=== PATIENT | female | born 1990 | race Caucasian/White ===

== ENCOUNTER 2016-08-24 13:43 | Inpatient (IN) | payer MEDICAID ==
[2016-08-24] MEDS ORDERED: Temazepam 15 MG Cap PO PRN (14:00)
[2016-08-24] MEDS ORDERED: Sodium Chloride 0.9% 1,000 ML IV SCH ×2 (14:00→14:45)
--- NOTE | 2016-08-24 14:14 | PCM.HP ---
H&P History of Present Illness - General Date of Service: 08/24/16 Admit Problem/Dx: Admission Diagnosis/Problem Admission Diagnosis/Problem Diabetic ketoacidosis Source of Information: Patient, Family - History of Present Illness Initial Comments - Free Text/Narative: 25 yo female with history of DM type 1 admitted for DKA. She was seen in the clinic this morning. She has been feeling symptoms of flu x 3 days. Her father is sick with the flu. Her boyfreind has just got over a cold. She has increased nausea, weak, cough, abdominal pain, decreased appetite. She has been complaint with her insulin. Her labs in clinic today blood glucose 648, with serum small ketones. Her WBC and rest of BMP unremarkable. Her influenza swab is pending. - Related Data Allergies/Adverse Reactions: Allergies Allergy/AdvReac Type Severity Reaction Status Date / Time acetaminophen [From Tylenol] Allergy Liver Verified 04/01/16 17:27 Problems amoxicillin Allergy Hives Verified 04/01/16 17:27 amoxicillin trihydrate Allergy Hives Verified 04/01/16 17:27 [From Amoxil] ibuprofen Allergy Liver Verified 04/01/16 17:27 Problems ketorolac tromethamine Allergy Hives Verified 04/19/16 13:59 [From Toradol] metoclopramide HCl Allergy Airway Verified 04/19/16 13:59 [From Reglan] Tightness tramadol Allergy Hives Verified 04/19/16 13:59 Home Medications: Home Meds Insulin Detemir [Levemir] 15 unit SUBCUT BID 03/24/16 [History] LORazepam [Ativan] 0.5 mg PO BID PRN 03/24/16 [History] Ondansetron [Ondansetron ODT] 8 mg PO QID PRN 04/19/16 [History] Insulin Aspart [Novolog Flexpen] 16 - 20 unit SUBCUT TIDMEALS 05/15/16 [History] Loratadine 10 mg PO DAILY PRN 05/15/16 [History] Omeprazole 20 mg PO BIDAC 05/15/16 [History] Albuterol Sulfate [Proair Hfa] 1 puff INH Q4H PRN 06/12/16 [History] Budesonide/Formoterol [Symbicort 160-4.5 MCG] 1 inh IH BID 08/24/16 [History] DULoxetine [Cymbalta] 30 mg PO DAILY 08/24/16 [History] Lidocaine 5% [Lidoderm 5%] 1 patch TOP DAILY 08/24/16 [History] Morphine Sulfate [Morphine Sulfate] 30 mg PO Q4H PRN 08/24/16 [History] Oxymorphone HCl [Oxymorphone HCl ER] 20 mg PO Q12H 08/24/16 [History] Promethazine HCl 25 mg PO Q6H PRN 08/24/16 [History] Past Medical History HEENT History: Reports: Allergic rhinitis Other HEENT History: dental abcess Cardiovascular History: Reports: None Respiratory History: Reports: Asthma Gastrointestinal History: Reports: GI bleed, Hepatitis, PUD, Other (see below) Other Gastrointestinal History: hx of C-diff, hx of Hepatitis B Genitourinary History: Reports: UTI, recurrent Other Genitourinary History: current UTI [employer] History: Reports: Other (see below) Other OB/BYN History: had miscarriage twice Musculoskeletal History: Reports: Back pain, chronic, Other (see below) Neurological History: Reports: Migraines, Seizure 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, last on was 4 months ago Psychiatric History: Reports: Anxiety, Depression Endocrine/Metabolic History: Reports: Diabetes, type I Hematologic History: Reports: Anemia Immunologic History: Reports: None Oncologic (Cancer) History: Reports: None Dermatologic History: Reports: Other (see below) Other Dermatologic History: possible infection from port removal R upper chest - Infectious Disease History Infectious Disease History: Reports: C-difficile - Past Surgical History Head Surgeries/Procedures: Reports: None HEENT Surgical History: Reports: Tonsillectomy Cardiovascular Surgical History: Reports: None Respiratory Surgical History: Reports: None Other Respiratory Surgeries/Procedures: History of Asthma at 11 years old. GI Surgical History: Reports: Appendectomy, Cholecystectomy, ERCP Female Surgical History: Reports: None Endocrine Surgical History: Reports: None Neurological Surgical History: Reports: None Musculoskeletal Surgical History: Reports: None Oncologic Surgical History: Reports: None Dermatological Surgical History: Reports: None - History Comment History Comment: She has had over [address] scans in the last 4 years. Social & Family History - Family History Family Medical History: Noncontributory HEENT: Reports: Impaired vision Cardiac: Reports: Heart failure Respiratory: Reports: Asthma GI: Reports: None : Reports: Renal disease/insufficiency OBGYN: Reports: Musculoskeletal: Reports: Back pain, chronic Neurological: Reports: Seizure Psychiatric: Reports: None Endocrine/Metabolic: Reports: Diabetes, type I Hematologic: Reports: None Immunologic: Reports: None Dermatologic: Reports: None Oncologic: Reports: Breast, Cervix - Tobacco Use Smoking Status *Q: Never Smoker Years of Tobacco use: 4 Packs/Tins Daily: 0.5 Used Tobacco, but Quit: Yes Month Tobacco Last Used: 5 months Second Hand Smoke Exposure: No - Caffeine Use Caffeine Use: Reports: None - Alcohol Use Days Per Week of Alcohol Use: 0 - Recreational Drug Use Recreational Drug Use: No Drug Use in Last 12 Months: No - Living Situation & Occupation Living situation: Reports: with significant other (fiance.), with family, other (She shares a camper with her fiance and father) Occupation: unemployed H&P Review of Systems - Review of Systems: Review Of Systems: See Below General: Reports: weakness, fatigue HEENT: Reports: no symptoms Pulmonary: Reports: cough Cardiovascular: Reports: no symptoms Gastrointestinal: Reports: Abdominal pain Genitourinary: Reports: no symptoms Musculoskeletal: Reports: no symptoms Skin: Reports: no symptoms Psychiatric: Reports: no symptoms Neurological: Reports: no symptoms Hematologic/Lymphatic: Reports: no symptoms Immunologic: Reports: no symptoms Exam - Exam Exam: See Below - Vital Signs Weight: 43.9 kg - Exam General: alert, oriented, cooperative, mild distress HEENT: Conjunctiva clear, EOMI, Other (dry cracked lips) Neck: supple, trachea midline Lungs: Clear to auscultation, Normal respiratory effort Cardiovascular: regular rate, regular rhythm Abdomen: normal bowel sounds, soft Back Exam: normal inspection, full range of motion Extremities: normal inspection Skin: warm, dry, intact Neurological: cranial nerves intact Neuro Extensive - Mental Status: alert Psychiatric: alert, normal affect, normal mood - Patient Data Lab Results last 24 hrs: Laboratory Results - last 24 hr 08/24/16 Range/Units 13:56 POC Glucose > 500 H (60-110) mg/dL *Q Meaningful Use (ADM) - VTE *Q VTE Criteria *Q: - Stroke *Q Stroke Criteria *Q: - AMI *Q AMI Criteria *Q: Problem List Initiated/Reviewed/Updated: Yes Orders Last 24hrs: Active Orders 24 hr Category Date Time Status Patient Status [ADT] Routine ADT 08/24/16 14:00 Ordered Bedrest Bathroom Privileges [RC] ASDIRECTED Care 08/24/16 14:00 Ordered Oxygen Therapy [RC] PRN Care 08/24/16 14:00 Ordered VTE/DVT Education [RC] PER UNIT ROUTINE Care 08/24/16 14:00 Ordered Vital Signs [RC] Q4H Care 08/24/16 14:00 Ordered Nothing per Oral Now Diet [DIET] Diet 08/24/16 Dinner Ordered BASIC METABOLIC PANEL,BMP [CHEM] AM Lab 08/25/16 05:11 Ordered CBC WITH AUTO DIFF [HEME] AM Lab 08/25/16 05:11 Ordered HCG QUALITATIVE,URINE [URCHEM] Routine Lab 08/24/16 13:58 Uncollected UA W/MICROSCOPIC [URIN] Routine Lab 08/24/16 13:57 Uncollected Insulin Regular, Human [NovoLIN R] 100 unit Med 08/24/16 14:15 Ordered Sodium Chloride 0.9% [Normal Saline] 99 ml IV TITRATE Ondansetron [Zofran] Med 08/24/16 14:00 Ordered 4 mg IVPUSH Q4H PRN Oseltamivir [Tamiflu] Med 08/24/16 14:15 Ordered 75 mg PO BID Temazepam [Restoril] Med 08/24/16 14:00 Ordered 15 mg PO BEDTIME PRN Resuscitation Status Routine Resus Stat 08/24/16 14:00 Ordered Medication Orders Insulin Human Regular 100 unit (/ Sodium Chloride) 100 mls @ IV TITRATE PIPPA; 0.1 UNIT/KG/HR PRN Reason: Protocol Ondansetron HCl (Zofran) 4 mg IVPUSH Q4H PRN PRN Reason: Nausea Oseltamivir Phosphate (Tamiflu) 75 mg PO BID PIPPA Temazepam (Restoril) 15 mg PO BEDTIME PRN PRN Reason: Sleep
[2016-08-24] MEDS ORDERED: Sodium Chloride 0.9% 1,000 ML IV ONE (14:24)
[2016-08-24] MEDS: Oseltamivir 75 MG Cap PO SCH ×2 (14:40→20:12)
[2016-08-24] MEDS: HYDROmorphone 1 MG/ML Syringe IVPUSH PRN (15:13)
[2016-08-24] MEDS: Ondansetron 4 MG/2 ML SDV IVPUSH PRN (15:15)
--- NOTE | 2016-08-24 15:18 | CR ---
EXAMINATION: Portable chest radiograph. HISTORY: Cough. FINDINGS: The trachea is midline. The cardiomediastinal silhouette is within normal limits. No pulmonary infil trates, effusions or pneumothorax. Osseous structures appear unremarkable. IMPRESSION: No acute cardiopulmonary process.
[2016-08-24] MEDS ORDERED: diphenhydrAMINE 50 MG/ML SDV IVPUSH ONE (16:14)
[2016-08-24 17:38] LABS: CHLORIDE,CL 104 mmol/L (98-110); SODIUM,NA 138 mmol/L (136-146)
[2016-08-24] MEDS ORDERED: Dextrose 5%-Lactated Ringers 1,000 ML IV SCH (18:45)
[2016-08-24] MEDS ORDERED: Potassium Chloride 10% 20 MEQ/15 ML Soln 30 ML UD Cup PO ONE (18:55)
[2016-08-24] MEDS ORDERED: Potassium Bicarbonate 25 MEQ Tab.EFF PO SCH (19:00)
[2016-08-24] MEDS ORDERED: LORazepam 0.5 MG Tab PO PRN (19:30)
[2016-08-24] MEDS ORDERED: Albuterol 8 GM Inhaler INH PRN (19:30)
[2016-08-24] MEDS ORDERED: Promethazine 25 MG Tab PO PRN (19:30)
[2016-08-24 23:24] LABS: CHLORIDE,CL 108 mmol/L (98-110); SODIUM,NA 140 mmol/L (136-146)
[2016-08-25] MEDS: Ondansetron 4 MG/2 ML SDV IVPUSH PRN ×3 (03:15→14:50)
[2016-08-25] MEDS: HYDROmorphone 1 MG/ML Syringe IVPUSH PRN ×6 (03:15→20:37)
[2016-08-25] MEDS ORDERED: Sodium Chloride 0.9% 1,000 ML IV SCH (03:30)
[2016-08-25] MEDS ORDERED: Insulin Regular, Human 100 Units/ML 10 ML Vial SUBCUT SCH (04:00)
[2016-08-25] MEDS: Insulin Aspart 100 Units/ML 3 ML Pen SUBCUT SCH ×3 (04:23→12:15)
[2016-08-25] MEDS: diphenhydrAMINE 50 MG/ML SDV IVPUSH PRN ×2 (05:44→14:50)
[2016-08-25 05:59] LABS: CHLORIDE,CL 108 mmol/L (98-110); SODIUM,NA 138 mmol/L (136-146)
[2016-08-25] MEDS: Omeprazole 20 MG Cap.CR PO SCH ×2 (07:18→16:04)
[2016-08-25] MEDS ORDERED: Insulin Aspart 100 Units/ML 3 ML Pen SUBCUT ONE (08:34)
[2016-08-25] MEDS: SYMBICORT 160/4.5 MCG INH SCH ×3 (08:45→20:44)
[2016-08-25] MEDS: OXYMORPHONE 20 MG PO SCH ×2 (08:46→20:06)
[2016-08-25] MEDS: DULoxetine 30 MG Cap PO SCH (08:47)
[2016-08-25] MEDS: Oseltamivir 75 MG Cap PO SCH ×2 (08:47→20:37)
--- NOTE | 2016-08-25 08:54 | PCM.PN ---
- General Info Date of Service: 08/25/16 Subjective Update: still feels weak. Pain is controlled with diluadid. blood sugars 300. - Review of Systems General: Reports: weakness, fatigue HEENT: Reports: no symptoms Pulmonary: Reports: cough Cardiovascular: Reports: no symptoms Gastrointestinal: Reports: No symptoms Musculoskeletal: Reports: no symptoms Skin: Reports: no symptoms Neurological: Reports: no symptoms Psychiatric: Reports: no symptoms - Patient Data Vitals - most recent: Last Vital Signs Temp 97.9 F 08/25/16 00:00 Pulse 80 08/25/16 06:00 Resp 13 08/25/16 06:00 BP 102/62 08/25/16 06:00 Pulse Ox 97 08/25/16 06:00 Weight - most recent: 46.448 kg I&O - last 24 hours: Intake & Output 08/24/16 08/25/16 08/25/16 22:59 06:59 14:59 Intake Total 1572 50 Output Total 950 2300 Balance 622 -2250 Lab Results last 24 hrs: Laboratory Results - last 24 hr 08/24/16 08/24/16 08/24/16 Range/Units 13:56 15:04 15:30 WBC (4.0-11.0) K/uL RBC (4.30-5.90) M/uL Hgb (12.0-16.0) g/dL Hct (36.0-46.0) % MCV (80.0-98.0) fL MCH (27.0-32.0) pg MCHC (31.0-37.0) g/dL RDW Std Deviation (28.0-62.0) fl RDW Coeff of Zak (11.0-15.0) % Plt Count (150-400) K/uL MPV (7.40-12.00) fL Neut % (Auto) (48.0-80.0) % Lymph % (Auto) (16.0-40.0) % [place] % (Auto) (0.0-15.0) % Eos % (Auto) (0.0-7.0) % Baso % (Auto) (0.0-1.5) % Neut # (1.4-5.7) K/uL Lymph # (0.6-2.4) K/uL [place] # (0.0-0.8) K/uL Eos # (0.0-0.7) K/uL Baso # (0.0-0.1) K/uL Sodium (136-146) mmol/L Potassium (3.5-5.1) mmol/L Chloride (98-110) mmol/L Carbon Dioxide (21-31) mmol/L BUN (6.0-23.0) mg/dL Creatinine (0.6-1.5) mg/dL Est Cr Clr Drug Dosing mL/min Estimated GFR (MDRD) ml/min Glucose (60-110) mg/dL POC Glucose > 500 H > 500 H (60-110) mg/dL Calcium (8.8-10.8) mg/dL Urine Color YELLOW Urine Appearance CLEAR Urine pH 6.5 (5.0-8.0) Ur Specific Cobb <= 1.005 (1.001-1.035) Urine Protein NEGATIVE (NEGATIVE) mg/dL Urine Glucose (UA) >=1000 (NEGATIVE) mg/dL Urine Ketones 15 H (NEGATIVE) mg/dL Urine Occult Blood TRACE-INTACT (NEGATIVE) Urine Nitrite NEGATIVE (NEGATIVE) Urine Bilirubin NEGATIVE (NEGATIVE) Urine Urobilinogen 0.2 (<2.0) EU/dL Ur Leukocyte Esterase NEGATIVE (NEGATIVE) Urine RBC 0-1 (0-2/HPF) Urine WBC 0-2 (0-5/HPF) Ur Epithelial Cells FEW (NONE-FEW) Urine Bacteria RARE (NEGATIVE) Urine HCG, Qual (NEGATIVE) 08/24/16 08/24/16 08/24/16 Range/Units 15:30 16:23 17:03 WBC (4.0-11.0) K/uL RBC (4.30-5.90) M/uL Hgb (12.0-16.0) g/dL Hct (36.0-46.0) % MCV (80.0-98.0) fL MCH (27.0-32.0) pg MCHC (31.0-37.0) g/dL RDW Std Deviation (28.0-62.0) fl RDW Coeff of Zak (11.0-15.0) % Plt Count (150-400) K/uL MPV (7.40-12.00) fL Neut % (Auto) (48.0-80.0) % Lymph % (Auto) (16.0-40.0) % [place] % (Auto) (0.0-15.0) % Eos % (Auto) (0.0-7.0) % Baso % (Auto) (0.0-1.5) % Neut # (1.4-5.7) K/uL Lymph # (0.6-2.4) K/uL [place] # (0.0-0.8) K/uL Eos # (0.0-0.7) K/uL Baso # (0.0-0.1) K/uL Sodium (136-146) mmol/L Potassium (3.5-5.1) mmol/L Chloride (98-110) mmol/L Carbon Dioxide (21-31) mmol/L BUN (6.0-23.0) mg/dL Creatinine (0.6-1.5) mg/dL Est Cr Clr Drug Dosing mL/min Estimated GFR (MDRD) ml/min Glucose (60-110) mg/dL POC Glucose 258 H 213 H (60-110) mg/dL Calcium (8.8-10.8) mg/dL Urine Color Urine Appearance Urine pH (5.0-8.0) Ur Specific Cobb (1.001-1.035) Urine Protein (NEGATIVE) mg/dL Urine Glucose (UA) (NEGATIVE) mg/dL Urine Ketones (NEGATIVE) mg/dL Urine Occult Blood (NEGATIVE) Urine Nitrite (NEGATIVE) Urine Bilirubin (NEGATIVE) Urine Urobilinogen (<2.0) EU/dL Ur Leukocyte Esterase (NEGATIVE) Urine RBC (0-2/HPF) Urine WBC (0-5/HPF) Ur Epithelial Cells (NONE-FEW) Urine Bacteria (NEGATIVE) Urine HCG, Qual NEGATIVE (NEGATIVE) 08/24/16 08/24/16 08/24/16 Range/Units 17:04 18:02 19:02 WBC (4.0-11.0) K/uL RBC (4.30-5.90) M/uL Hgb (12.0-16.0) g/dL Hct (36.0-46.0) % MCV (80.0-98.0) fL MCH (27.0-32.0) pg MCHC (31.0-37.0) g/dL RDW Std Deviation (28.0-62.0) fl RDW Coeff of Zak (11.0-15.0) % Plt Count (150-400) K/uL MPV (7.40-12.00) fL Neut % (Auto) (48.0-80.0) % Lymph % (Auto) (16.0-40.0) % [place] % (Auto) (0.0-15.0) % Eos % (Auto) (0.0-7.0) % Baso % (Auto) (0.0-1.5) % Neut # (1.4-5.7) K/uL Lymph # (0.6-2.4) K/uL [place] # (0.0-0.8) K/uL Eos # (0.0-0.7) K/uL Baso # (0.0-0.1) K/uL Sodium 138 (136-146) mmol/L Potassium 3.4 L (3.5-5.1) mmol/L Chloride 104 (98-110) mmol/L Carbon Dioxide 17 L (21-31) mmol/L BUN 14 (6.0-23.0) mg/dL Creatinine 0.9 (0.6-1.5) mg/dL Est Cr Clr Drug Dosing 65.65 mL/min Estimated GFR (MDRD) > 60.0 ml/min Glucose 215 H (60-110) mg/dL POC Glucose 127 H 111 H (60-110) mg/dL Calcium 9.2 (8.8-10.8) mg/dL Urine Color Urine Appearance Urine pH (5.0-8.0) Ur Specific [place] (1.001-1.035) Urine Protein (NEGATIVE) mg/dL Urine Glucose (UA) (NEGATIVE) mg/dL Urine Ketones (NEGATIVE) mg/dL Urine Occult Blood (NEGATIVE) Urine Nitrite (NEGATIVE) Urine Bilirubin (NEGATIVE) Urine Urobilinogen (<2.0) EU/dL Ur Leukocyte Esterase (NEGATIVE) Urine RBC (0-2/HPF) Urine WBC (0-5/HPF) Ur Epithelial Cells (NONE-FEW) Urine Bacteria (NEGATIVE) Urine HCG, Qual (NEGATIVE) 08/24/16 08/24/16 08/24/16 Range/Units 20:02 21:13 22:07 WBC (4.0-11.0) K/uL RBC (4.30-5.90) M/uL Hgb (12.0-16.0) g/dL Hct (36.0-46.0) % MCV (80.0-98.0) fL MCH (27.0-32.0) pg MCHC (31.0-37.0) g/dL RDW Std Deviation (28.0-62.0) fl RDW Coeff of Zak (11.0-15.0) % Plt Count (150-400) K/uL MPV (7.40-12.00) fL Neut % (Auto) (48.0-80.0) % Lymph % (Auto) (16.0-40.0) % [place] % (Auto) (0.0-15.0) % Eos % (Auto) (0.0-7.0) % Baso % (Auto) (0.0-1.5) % Neut # (1.4-5.7) K/uL Lymph # (0.6-2.4) K/uL [place] # (0.0-0.8) K/uL Eos # (0.0-0.7) K/uL Baso # (0.0-0.1) K/uL Sodium (136-146) mmol/L Potassium (3.5-5.1) mmol/L Chloride (98-110) mmol/L Carbon Dioxide (21-31) mmol/L BUN (6.0-23.0) mg/dL Creatinine (0.6-1.5) mg/dL Est Cr Clr Drug Dosing mL/min Estimated GFR (MDRD) ml/min Glucose (60-110) mg/dL POC Glucose 159 H 154 H 119 H (60-110) mg/dL Calcium (8.8-10.8) mg/dL Urine Color Urine Appearance Urine pH (5.0-8.0) Ur Specific [place] (1.001-1.035) Urine Protein (NEGATIVE) mg/dL Urine Glucose (UA) (NEGATIVE) mg/dL Urine Ketones (NEGATIVE) mg/dL Urine Occult Blood (NEGATIVE) Urine Nitrite (NEGATIVE) Urine Bilirubin (NEGATIVE) Urine Urobilinogen (<2.0) EU/dL Ur Leukocyte Esterase (NEGATIVE) Urine RBC (0-2/HPF) Urine WBC (0-5/HPF) Ur Epithelial Cells (NONE-FEW) Urine Bacteria (NEGATIVE) Urine HCG, Qual (NEGATIVE) 08/24/16 08/24/16 08/25/16 Range/Units 22:51 22:53 00:03 WBC (4.0-11.0) K/uL RBC (4.30-5.90) M/uL Hgb (12.0-16.0) g/dL Hct (36.0-46.0) % MCV (80.0-98.0) fL MCH (27.0-32.0) pg MCHC (31.0-37.0) g/dL RDW Std Deviation (28.0-62.0) fl RDW Coeff of Zak (11.0-15.0) % Plt Count (150-400) K/uL MPV (7.40-12.00) fL Neut % (Auto) (48.0-80.0) % Lymph % (Auto) (16.0-40.0) % [place] % (Auto) (0.0-15.0) % Eos % (Auto) (0.0-7.0) % Baso % (Auto) (0.0-1.5) % Neut # (1.4-5.7) K/uL Lymph # (0.6-2.4) K/uL [place] # (0.0-0.8) K/uL Eos # (0.0-0.7) K/uL Baso # (0.0-0.1) K/uL Sodium 140 (136-146) mmol/L Potassium 4.5 (3.5-5.1) mmol/L Chloride 108 (98-110) mmol/L Carbon Dioxide 22 (21-31) mmol/L BUN 11 (6.0-23.0) mg/dL Creatinine 0.7 (0.6-1.5) mg/dL Est Cr Clr Drug Dosing 84.40 mL/min Estimated GFR (MDRD) > 60.0 ml/min Glucose 132 H (60-110) mg/dL POC Glucose 135 H 171 H (60-110) mg/dL Calcium 9.6 (8.8-10.8) mg/dL Urine Color Urine Appearance Urine pH (5.0-8.0) Ur Specific [place] (1.001-1.035) Urine Protein (NEGATIVE) mg/dL Urine Glucose (UA) (NEGATIVE) mg/dL Urine Ketones (NEGATIVE) mg/dL Urine Occult Blood (NEGATIVE) Urine Nitrite (NEGATIVE) Urine Bilirubin (NEGATIVE) Urine Urobilinogen (<2.0) EU/dL Ur Leukocyte Esterase (NEGATIVE) Urine RBC (0-2/HPF) Urine WBC (0-5/HPF) Ur Epithelial Cells (NONE-FEW) Urine Bacteria (NEGATIVE) Urine HCG, Qual (NEGATIVE) 08/25/16 08/25/16 08/25/16 Range/Units 01:18 02:05 03:11 WBC (4.0-11.0) K/uL RBC (4.30-5.90) M/uL Hgb (12.0-16.0) g/dL Hct (36.0-46.0) % MCV (80.0-98.0) fL MCH (27.0-32.0) pg MCHC (31.0-37.0) g/dL RDW Std Deviation (28.0-62.0) fl RDW Coeff of Zak (11.0-15.0) % Plt Count (150-400) K/uL MPV (7.40-12.00) fL Neut % (Auto) (48.0-80.0) % Lymph % (Auto) (16.0-40.0) % [place] % (Auto) (0.0-15.0) % Eos % (Auto) (0.0-7.0) % Baso % (Auto) (0.0-1.5) % Neut # (1.4-5.7) K/uL Lymph # (0.6-2.4) K/uL [place] # (0.0-0.8) K/uL Eos # (0.0-0.7) K/uL Baso # (0.0-0.1) K/uL Sodium (136-146) mmol/L Potassium (3.5-5.1) mmol/L Chloride (98-110) mmol/L Carbon Dioxide (21-31) mmol/L BUN (6.0-23.0) mg/dL Creatinine (0.6-1.5) mg/dL Est Cr Clr Drug Dosing mL/min Estimated GFR (MDRD) ml/min Glucose (60-110) mg/dL POC Glucose 127 H 128 H 129 H (60-110) mg/dL Calcium (8.8-10.8) mg/dL Urine Color Urine Appearance Urine pH (5.0-8.0) Ur Specific Cobb (1.001-1.035) Urine Protein (NEGATIVE) mg/dL Urine Glucose (UA) (NEGATIVE) mg/dL Urine Ketones (NEGATIVE) mg/dL Urine Occult Blood (NEGATIVE) Urine Nitrite (NEGATIVE) Urine Bilirubin (NEGATIVE) Urine Urobilinogen (<2.0) EU/dL Ur Leukocyte Esterase (NEGATIVE) Urine RBC (0-2/HPF) Urine WBC (0-5/HPF) Ur Epithelial Cells (NONE-FEW) Urine Bacteria (NEGATIVE) Urine HCG, Qual (NEGATIVE) 08/25/16 08/25/16 08/25/16 Range/Units 04:08 05:25 05:25 WBC 4.35 (4.0-11.0) K/uL RBC 3.93 L (4.30-5.90) M/uL Hgb 11.4 L (12.0-16.0) g/dL Hct 35.3 L (36.0-46.0) % MCV 89.8 (80.0-98.0) fL MCH 29.0 (27.0-32.0) pg MCHC 32.3 (31.0-37.0) g/dL RDW Std Deviation 46.1 (28.0-62.0) fl RDW Coeff of Zak 14 (11.0-15.0) % Plt Count 292 (150-400) K/uL MPV 10.20 (7.40-12.00) fL Neut % (Auto) 37.3 L (48.0-80.0) % Lymph % (Auto) 52.6 H (16.0-40.0) % [place] % (Auto) 6.2 (0.0-15.0) % Eos % (Auto) 3.4 (0.0-7.0) % Baso % (Auto) 0.5 (0.0-1.5) % Neut # 1.6 (1.4-5.7) K/uL Lymph # 2.3 (0.6-2.4) K/uL [place] # 0.3 (0.0-0.8) K/uL Eos # 0.2 (0.0-0.7) K/uL Baso # 0.0 (0.0-0.1) K/uL Sodium 138 (136-146) mmol/L Potassium 4.7 (3.5-5.1) mmol/L Chloride 108 (98-110) mmol/L Carbon Dioxide 20 L (21-31) mmol/L BUN 8 (6.0-23.0) mg/dL Creatinine 0.7 (0.6-1.5) mg/dL Est Cr Clr Drug Dosing 87.48 mL/min Estimated GFR (MDRD) > 60.0 ml/min Glucose 292 H (60-110) mg/dL POC Glucose 139 H (60-110) mg/dL Calcium 8.6 L (8.8-10.8) mg/dL Urine Color Urine Appearance Urine pH (5.0-8.0) Ur Specific [place] (1.001-1.035) Urine Protein (NEGATIVE) mg/dL Urine Glucose (UA) (NEGATIVE) mg/dL Urine Ketones (NEGATIVE) mg/dL Urine Occult Blood (NEGATIVE) Urine Nitrite (NEGATIVE) Urine Bilirubin (NEGATIVE) Urine Urobilinogen (<2.0) EU/dL Ur Leukocyte Esterase (NEGATIVE) Urine RBC (0-2/HPF) Urine WBC (0-5/HPF) Ur Epithelial Cells (NONE-FEW) Urine Bacteria (NEGATIVE) Urine HCG, Qual (NEGATIVE) 08/25/16 Range/Units 08:24 WBC (4.0-11.0) K/uL RBC (4.30-5.90) M/uL Hgb (12.0-16.0) g/dL Hct (36.0-46.0) % MCV (80.0-98.0) fL MCH (27.0-32.0) pg MCHC (31.0-37.0) g/dL RDW Std Deviation (28.0-62.0) fl RDW Coeff of Zak (11.0-15.0) % Plt Count (150-400) K/uL MPV (7.40-12.00) fL Neut % (Auto) (48.0-80.0) % Lymph % (Auto) (16.0-40.0) % [place] % (Auto) (0.0-15.0) % Eos % (Auto) (0.0-7.0) % Baso % (Auto) (0.0-1.5) % Neut # (1.4-5.7) K/uL Lymph # (0.6-2.4) K/uL [place] # (0.0-0.8) K/uL Eos # (0.0-0.7) K/uL Baso # (0.0-0.1) K/uL Sodium (136-146) mmol/L Potassium (3.5-5.1) mmol/L Chloride (98-110) mmol/L Carbon Dioxide (21-31) mmol/L BUN (6.0-23.0) mg/dL Creatinine (0.6-1.5) mg/dL Est Cr Clr Drug Dosing mL/min Estimated GFR (MDRD) ml/min Glucose (60-110) mg/dL POC Glucose 386 H (60-110) mg/dL Calcium (8.8-10.8) mg/dL Urine Color Urine Appearance Urine pH (5.0-8.0) Ur Specific Cobb (1.001-1.035) Urine Protein (NEGATIVE) mg/dL Urine Glucose (UA) (NEGATIVE) mg/dL Urine Ketones (NEGATIVE) mg/dL Urine Occult Blood (NEGATIVE) Urine Nitrite (NEGATIVE) Urine Bilirubin (NEGATIVE) Urine Urobilinogen (<2.0) EU/dL Ur Leukocyte Esterase (NEGATIVE) Urine RBC (0-2/HPF) Urine WBC (0-5/HPF) Ur Epithelial Cells (NONE-FEW) Urine Bacteria (NEGATIVE) Urine HCG, Qual (NEGATIVE) Med Orders - Current: Current Medications Albuterol (Ventolin Hfa) 0 gm INH Q4H PRN PRN Reason: Dyspnea Diphenhydramine HCl (Benadryl) 25 mg IVPUSH Q8H PRN PRN Reason: Itching Last Admin: 08/25/16 05:44 Dose: 25 mg Duloxetine HCl (Cymbalta) 30 mg PO DAILY PIPPA Last Admin: 08/25/16 08:47 Dose: 30 mg Hydromorphone HCl (Dilaudid) 1 mg IVPUSH Q2H PRN PRN Reason: Pain Last Admin: 08/25/16 07:18 Dose: 1 mg Sodium Chloride (Normal Saline) 1,000 mls @ 100 mls/hr IV ASDIRECTED [facility] Last Admin: 08/25/16 05:45 Dose: 100 mls/hr Insulin Aspart (Novolog) 0 unit SUBCUT Q4H PIPPA PRN Reason: Protocol Last Admin: 08/25/16 08:42 Dose: Not Given Loratadine (Claritin) 10 mg PO DAILY PRN PRN Reason: Allergies Lorazepam (Ativan) 0.5 mg PO BID PRN PRN Reason: Anxiety Morphine Sulfate (Morphine) 30 mg PO Q4H PRN PRN Reason: Breakthrough Pain Omeprazole (Omeprazole) 20 mg PO BIDAC [facility] Last Admin: 08/25/16 07:18 Dose: 20 mg Ondansetron HCl (Zofran) 4 mg IVPUSH Q4H PRN PRN Reason: Nausea Last Admin: 08/25/16 03:15 Dose: 4 mg Ondansetron HCl (Zofran Odt) 8 mg PO QID PRN PRN Reason: Nausea/Vomiting Oseltamivir Phosphate (Tamiflu) 75 mg PO BID [facility] Last Admin: 08/25/16 08:47 Dose: 75 mg Lidocaine Patch 5% 1 each TOP DAILY PRN PRN Reason: PAIN Oxymorphone Er 20 Mg 1 each PO Q12H [facility] Last Admin: 08/25/16 08:46 Dose: Not Given Symbicort 160/4.5 (Mcg) 1 each INH BIDRT [facility] Last Admin: 08/25/16 08:46 Dose: Not Given Promethazine HCl (Phenergan) 25 mg PO Q6H PRN PRN Reason: Nausea/Vomiting Temazepam (Restoril) 15 mg PO BEDTIME PRN PRN Reason: Sleep Discontinued Medications Diphenhydramine HCl (Benadryl) 25 mg IVPUSH ONETIME ONE Stop: 08/24/16 16:15 Last Admin: 08/24/16 16:38 Dose: 25 mg Sodium Chloride (Normal Saline) 1,000 mls @ 999 mls/hr IV .BOLUS [facility] Insulin Human Regular 100 unit (/ Sodium Chloride) 100 mls @ 4 mls/hr IV TITRATE PIPPA; 4 UNIT/HR PRN Reason: Protocol Last Titration: 08/25/16 01:19 Dose: 1 unit/hr, 1 mls/hr Sodium Chloride (Normal Saline) 1,000 mls @ 999 mls/hr IV STAT ONE Stop: 08/24/16 15:24 Last Admin: 08/24/16 14:30 Dose: 999 mls/hr Sodium Chloride (Normal Saline) 1,000 mls @ 200 mls/hr IV ASDIRECTED [facility] Last Admin: 08/24/16 15:30 Dose: 200 mls/hr Dextrose/Lactated Ringer's (Dextrose 5%-Lactated Ringers) 1,000 mls @ 100 mls/ hr IV ASDIRECTED [facility] Last Admin: 08/24/16 18:44 Dose: 100 mls/hr Insulin Aspart (Novolog) 14 unit SUBCUT NOW ONE Stop: 08/25/16 08:35 Last Admin: 08/25/16 08:40 Dose: 14 units Insulin Human Regular (Novolin R) 0 unit SUBCUT Q4HR [facility] PRN Reason: Protocol Last Admin: 08/25/16 04:23 Dose: Not Given Potassium Bicarbonate (Klor-Con Ef) 25 meq PO DAILY [facility] Stop: 08/25/16 06:00 Last Admin: 08/24/16 20:03 Dose: Not Given Potassium Chloride (Potassium Chloride) 40 meq PO ONETIME ONE Stop: 08/24/16 18:56 Last Admin: 08/24/16 19:11 Dose: 40 meq - Exam General: alert, oriented HEENT: Pupils equal, EOMI, Other (dry lips) Neck: supple Lungs: Clear to auscultation, Normal respiratory effort Cardiovascular: regular rate, regular rhythm Abdomen: bowel sounds present, soft Back Exam: normal inspection Extremities: no edema - Problem List Review Problem List Initiated/Reviewed/Updated: Yes - My Orders Last 24 Hours: My Active Orders 08/24/16 14:00 Patient Status [ADT] Routine Bedrest Bathroom Privileges [RC] ASDIRECTED Oxygen Therapy [RC] PRN Vital Signs [RC] Q1H Ondansetron [Zofran] 4 mg IVPUSH Q4H PRN Temazepam [Restoril] 15 mg PO BEDTIME PRN Resuscitation Status Routine 08/24/16 14:15 Oseltamivir [Tamiflu] 75 mg PO BID 08/24/16 14:27 Blood Glucose Check, Bedside [RC] Q4H 08/24/16 14:48 HYDROmorphone [Dilaudid] 1 mg IVPUSH Q2H PRN 08/25/16 11:00 BASIC METABOLIC PANEL,BMP [CHEM] Q6H - Plan Plan:: DKA resolved. continue Novolog sliding scale and IVF advance to ADA diet CBC and BMP WNL cxr negative, influenza negative transfer to floor anticipate discharge tomorrow
[2016-08-25] MEDS ORDERED: LIDOCAINE PATCH 5% TOP PRN (09:00)
[2016-08-25 11:33] LABS: CHLORIDE,CL 106 mmol/L (98-110); SODIUM,NA 138 mmol/L (136-146)
--- NOTE | 2016-08-25 13:05 | PCM.SN ---
- Free Text/Narrative Note: slight increase in anion gap noted. Poor po intake. I discussed with Dr Puckett and we decided to keep him in the ICU and restart insulin drip with addition of some intravenous dextrose. Oanh Valentine MD
[2016-08-25] MEDS ORDERED: Dextrose 5%-0.45% NaCl 1,000 ML IV SCH (13:15)
[2016-08-25 15:53] LABS: CHLORIDE,CL 106 mmol/L (98-110); SODIUM,NA 136 mmol/L (136-146)
[2016-08-25] MEDS: Morphine 15 MG Tab PO PRN (17:14)
[2016-08-25 18:20] LABS: CHLORIDE,CL 106 mmol/L (98-110); SODIUM,NA 137 mmol/L (136-146)
[2016-08-25] MEDS: Insulin Detemir 100 Units/ML 3 ML Pen SUBCUT SCH (18:56)
[2016-08-25 19:48] LABS: CHLORIDE,CL 107 mmol/L (98-110); SODIUM,NA 137 mmol/L (136-146)
[2016-08-25] MEDS ORDERED: Insulin Regular, Human 100 Units/ML 10 ML Vial SUBCUT STA (21:01)
[2016-08-25] MEDS: Sodium Chloride 0.9% 1,000 ML IV SCH (21:20)
[2016-08-26] MEDS: HYDROmorphone 1 MG/ML Syringe IVPUSH PRN ×4 (02:01→13:51)
[2016-08-26] MEDS: Ondansetron 4 MG/2 ML SDV IVPUSH PRN ×3 (05:08→22:17)
[2016-08-26] MEDS: diphenhydrAMINE 50 MG/ML SDV IVPUSH PRN ×2 (05:09→12:46)
[2016-08-26] MEDS: Omeprazole 20 MG Cap.CR PO SCH ×2 (06:30→16:21)
[2016-08-26] MEDS: SYMBICORT 160/4.5 MCG INH SCH ×2 (06:39→21:16)
[2016-08-26] MEDS: OXYMORPHONE 20 MG PO SCH ×2 (07:19→19:37)
[2016-08-26] MEDS: Insulin Regular, Human 100 Units/ML 10 ML Vial SUBCUT SCH ×4 (08:05→21:13)
[2016-08-26] MEDS: Insulin Detemir 100 Units/ML 3 ML Pen SUBCUT SCH ×2 (08:07→21:14)
[2016-08-26] MEDS: DULoxetine 30 MG Cap PO SCH (08:11)
[2016-08-26] MEDS: Oseltamivir 75 MG Cap PO SCH ×2 (08:11→21:15)
[2016-08-26] MEDS: Sodium Chloride 0.9% 1,000 ML IV SCH ×2 (08:16→19:36)
[2016-08-26 10:57] LABS: CHLORIDE,CL 114 mmol/L (98-110); SODIUM,NA 143 mmol/L (136-146)
[2016-08-26] MEDS: Loratadine 10 MG Tab PO PRN (11:45)
[2016-08-26] MEDS: Phosphorus #1 250 MG Tab PO SCH ×2 (14:06→19:35)
--- NOTE | 2016-08-26 15:51 | PCM.PN ---
- General Info Date of Service: 08/26/16 - Review of Systems Systems Review Comment:: complains of poorly controlled chronic abdominal pain and anxiety. - Patient Data Vitals - most recent: Last Vital Signs Temp 98.5 F 08/26/16 12:00 Pulse 98 08/25/16 15:00 Resp 17 08/26/16 14:00 BP 117/77 08/26/16 14:00 Pulse Ox 96 08/26/16 14:00 Weight - most recent: 49.9 kg I&O - last 24 hours: Intake & Output 08/26/16 08/26/16 08/26/16 06:59 14:59 22:59 Intake Total 620 950 Output Total 1000 Balance -380 950 Lab Results last 24 hrs: Laboratory Results - last 24 hr 08/25/16 08/25/16 08/25/16 Range/Units 13:41 14:55 15:20 Sodium 136 (136-146) mmol/L Potassium 4.4 (3.5-5.1) mmol/L Chloride 106 (98-110) mmol/L Carbon Dioxide 16 L (21-31) mmol/L Anion Gap BUN 10 (6.0-23.0) mg/dL Creatinine 0.8 (0.6-1.5) mg/dL Est Cr Clr Drug Dosing 76.54 mL/min Estimated GFR (MDRD) > 60.0 ml/min BUN/Creatinine Ratio Glucose 245 H (60-110) mg/dL POC Glucose 276 H 258 H (60-110) mg/dL Calcium 8.1 L (8.8-10.8) mg/dL Phosphorus (2.4-4.7) mg/dL Magnesium (1.5-2.3) mEq/L Albumin (3.5-5.0) g/dL 08/25/16 08/25/16 08/25/16 Range/Units 16:06 17:06 17:40 Sodium 137 (136-146) mmol/L Potassium 3.5 (3.5-5.1) mmol/L Chloride 106 (98-110) mmol/L Carbon Dioxide 21 (21-31) mmol/L Anion Gap BUN 8 (6.0-23.0) mg/dL Creatinine 0.8 (0.6-1.5) mg/dL Est Cr Clr Drug Dosing 76.54 mL/min Estimated GFR (MDRD) > 60.0 ml/min BUN/Creatinine Ratio Glucose 138 H (60-110) mg/dL POC Glucose 207 H 155 H (60-110) mg/dL Calcium 8.3 L (8.8-10.8) mg/dL Phosphorus (2.4-4.7) mg/dL Magnesium (1.5-2.3) mEq/L Albumin (3.5-5.0) g/dL 08/25/16 08/25/16 08/25/16 Range/Units 18:15 18:56 19:15 Sodium 137 (136-146) mmol/L Potassium 4.0 (3.5-5.1) mmol/L Chloride 107 (98-110) mmol/L Carbon Dioxide 19 L (21-31) mmol/L Anion Gap BUN 9 (6.0-23.0) mg/dL Creatinine 0.7 (0.6-1.5) mg/dL Est Cr Clr Drug Dosing 87.48 mL/min Estimated GFR (MDRD) > 60.0 ml/min BUN/Creatinine Ratio Glucose 163 H (60-110) mg/dL POC Glucose 106 117 H (60-110) mg/dL Calcium 7.9 L (8.8-10.8) mg/dL Phosphorus (2.4-4.7) mg/dL Magnesium (1.5-2.3) mEq/L Albumin (3.5-5.0) g/dL 08/25/16 08/25/16 08/25/16 Range/Units 20:00 20:57 22:04 Sodium (136-146) mmol/L Potassium (3.5-5.1) mmol/L Chloride (98-110) mmol/L Carbon Dioxide (21-31) mmol/L Anion Gap BUN (6.0-23.0) mg/dL Creatinine (0.6-1.5) mg/dL Est Cr Clr Drug Dosing mL/min Estimated GFR (MDRD) ml/min BUN/Creatinine Ratio Glucose (60-110) mg/dL POC Glucose 225 H 159 H 160 H (60-110) mg/dL Calcium (8.8-10.8) mg/dL Phosphorus (2.4-4.7) mg/dL Magnesium (1.5-2.3) mEq/L Albumin (3.5-5.0) g/dL 08/26/16 08/26/16 08/26/16 Range/Units 01:56 05:05 07:59 Sodium (136-146) mmol/L Potassium (3.5-5.1) mmol/L Chloride (98-110) mmol/L Carbon Dioxide (21-31) mmol/L Anion Gap BUN (6.0-23.0) mg/dL Creatinine (0.6-1.5) mg/dL Est Cr Clr Drug Dosing mL/min Estimated GFR (MDRD) ml/min BUN/Creatinine Ratio Glucose (60-110) mg/dL POC Glucose 92 128 H 272 H (60-110) mg/dL Calcium (8.8-10.8) mg/dL Phosphorus (2.4-4.7) mg/dL Magnesium (1.5-2.3) mEq/L Albumin (3.5-5.0) g/dL 08/26/16 08/26/16 Range/Units 09:57 10:31 Sodium 143 (136-146) mmol/L Potassium 4.7 (3.5-5.1) mmol/L Chloride 114 H (98-110) mmol/L Carbon Dioxide 15 L (21-31) mmol/L Anion Gap 18.7 BUN 11 (6.0-23.0) mg/dL Creatinine 0.7 (0.6-1.5) mg/dL Est Cr Clr Drug Dosing 87.48 mL/min Estimated GFR (MDRD) > 60.0 ml/min BUN/Creatinine Ratio 15.71 Glucose 174 H (60-110) mg/dL POC Glucose 196 H (60-110) mg/dL Calcium 8.3 L (8.8-10.8) mg/dL Phosphorus 2.1 L (2.4-4.7) mg/dL Magnesium 1.9 (1.5-2.3) mEq/L Albumin 3.2 L (3.5-5.0) g/dL Med Orders - Current: Current Medications Albuterol (Ventolin Hfa) 0 gm INH Q4H PRN PRN Reason: Dyspnea Diphenhydramine HCl (Benadryl) 25 mg IVPUSH Q8H PRN PRN Reason: Itching Last Admin: 08/26/16 12:46 Dose: 25 mg Duloxetine HCl (Cymbalta) 30 mg PO DAILY [facility] Last Admin: 08/26/16 08:11 Dose: 30 mg Hydromorphone HCl (Dilaudid) 1 mg IVPUSH Q2H PRN PRN Reason: Pain Last Admin: 08/26/16 13:51 Dose: 1 mg Sodium Chloride (Normal Saline) 1,000 mls @ 75 mls/hr IV ASDIRECTED [facility] Last Admin: 08/26/16 08:16 Dose: 75 mls/hr Insulin Detemir (Levemir) 15 unit SUBCUT BID [facility] Last Admin: 08/26/16 08:07 Dose: 15 units Insulin Human Regular (Novolin R) 0 unit SUBCUT Q4HR [facility] PRN Reason: Protocol Last Admin: 08/26/16 11:51 Dose: Not Given Loratadine (Claritin) 10 mg PO DAILY PRN PRN Reason: Allergies Last Admin: 08/26/16 11:45 Dose: 10 mg Lorazepam (Ativan) 0.5 mg PO BID PRN PRN Reason: Anxiety Morphine Sulfate (Morphine) 30 mg PO Q4H PRN PRN Reason: Breakthrough Pain Last Admin: 08/25/16 17:14 Dose: [facility] Last Admin: 08/26/16 06:30 Dose: 20 mg Ondansetron HCl (Zofran) 4 mg IVPUSH Q4H PRN PRN Reason: Nausea Last Admin: 08/26/16 11:45 Dose: 4 mg Ondansetron HCl (Zofran Odt) 8 mg PO QID PRN PRN Reason: Nausea/Vomiting Oseltamivir Phosphate (Tamiflu) 75 mg PO BID [facility] Last Admin: 08/26/16 08:11 Dose: 75 mg Lidocaine Patch 5% 1 each TOP DAILY PRN PRN Reason: PAIN Oxymorphone Er 20 Mg 1 each PO Q12H [facility] Last Admin: 08/26/16 07:19 Dose: Not Given Symbicort 160/4.5 (Mcg) 1 each INH BIDRT [facility] Last Admin: 08/26/16 06:39 Dose: Not Given Promethazine HCl (Phenergan) 25 mg PO Q6H PRN PRN Reason: Nausea/Vomiting Sodium Phosphate (Neutra-Phos) 250 mg PO QID [facility] Last Admin: 08/26/16 14:06 Dose: 250 mg Temazepam (Restoril) 15 mg PO BEDTIME PRN PRN Reason: Sleep Discontinued Medications Diphenhydramine HCl (Benadryl) 25 mg IVPUSH ONETIME ONE Stop: 08/24/16 16:15 Last Admin: 08/24/16 16:38 Dose: 25 mg Sodium Chloride (Normal Saline) 1,000 mls @ 999 mls/hr IV .BOLUS [facility] Insulin Human Regular 100 unit (/ Sodium Chloride) 100 mls @ 4 mls/hr IV TITRATE [facility]; 4 UNIT/HR PRN Reason: Protocol Last Titration: 08/25/16 01:19 Dose: 1 unit/hr, 1 mls/hr Sodium Chloride (Normal Saline) 1,000 mls @ 999 mls/hr IV STAT ONE Stop: 08/24/16 15:24 Last Admin: 08/24/16 14:30 Dose: 999 mls/hr Sodium Chloride (Normal Saline) 1,000 mls @ 200 mls/hr IV ASDIRECTED [facility] Last Admin: 08/24/16 15:30 Dose: 200 mls/hr Dextrose/Lactated Ringer's (Dextrose 5%-Lactated Ringers) 1,000 mls @ 100 mls/ hr IV ASDIRECTED [facility] Last Admin: 08/24/16 18:44 Dose: 100 mls/hr Sodium Chloride (Normal Saline) 1,000 mls @ 100 mls/hr IV ASDIRECTED [facility] Last Admin: 08/25/16 05:45 Dose: 100 mls/hr Dextrose/Sodium Chloride (Dextrose 5%-1/2 Ns) 1,000 mls @ 150 mls/hr IV ASDIRECTED [facility] Stop: 08/25/16 20:30 Last Admin: 08/25/16 13:34 Dose: 150 mls/hr Insulin Human Regular 100 unit (/ Sodium Chloride) 100 mls @ 4.64 mls/hr IV TITRATE [facility]; 0.1 UNIT/KG/HR PRN Reason: Protocol Stop: 08/25/16 20:30 Last Titration: 08/25/16 18:34 Dose: 0.01 unit/kg/hr, 0.5 mls/hr Insulin Aspart (Novolog) 0 unit SUBCUT Q4H [facility] PRN Reason: Protocol Last Admin: 08/25/16 12:15 Dose: Not Given Insulin Aspart (Novolog) 14 unit SUBCUT NOW ONE Stop: 08/25/16 08:35 Last Admin: 08/25/16 08:40 Dose: 14 units Insulin Detemir (Levemir) 15 unit SUBCUT BIDAC [facility] Insulin Human Regular (Novolin R) 0 unit SUBCUT Q4HR [facility] PRN Reason: Protocol Last Admin: 08/25/16 04:23 Dose: Not Given Insulin Human Regular (Novolin R) 0 unit SUBCUT Q4HR [facility] PRN Reason: Protocol Stop: 08/25/16 21:02 Last Admin: 08/25/16 22:07 Dose: 3 unit Potassium Bicarbonate (Klor-Con Ef) 25 meq PO DAILY [facility] Stop: 08/25/16 06:00 Last Admin: 08/24/16 20:03 Dose: Not Given Potassium Chloride (Potassium Chloride) 40 meq PO ONETIME ONE Stop: 08/24/16 18:56 Last Admin: 08/24/16 19:11 Dose: 40 meq - Exam General: alert, oriented, cooperative Neck: supple Lungs: Clear to auscultation, Normal respiratory effort Cardiovascular: regular rate, regular rhythm Abdomen: soft, tenderness (diffuse tenderness) Extremities: no edema - Problem List & Annotations (1) Diabetic ketoacidosis SNOMED Code(s): 246623438, 665918913 Code(s): E13.10 - OTH DIABETES MELLITUS WITH KETOACIDOSIS WITHOUT COMA Status: Acute Current Visit: Yes (2) Chronic abdominal pain SNOMED Code(s): 480967896 Code(s): R10.9 - UNSPECIFIED ABDOMINAL PAIN; G89.29 - OTHER CHRONIC PAIN Status: Acute Current Visit: Yes (3) Anxiety SNOMED Code(s): 41540797 Code(s): F41.9 - ANXIETY DISORDER, UNSPECIFIED Status: Acute Current Visit: Yes (4) Gastroparesis SNOMED Code(s): 617388289 Code(s): K31.84 - GASTROPARESIS Status: Acute Current Visit: No - Problem List Review Problem List Initiated/Reviewed/Updated: Yes - Plan Plan:: DKA resolved. continue Novolog sliding scale and IVF advance to ADA diet CBC and BMP WNL cxr negative, influenza negative transfer to floor anticipate discharge tomorrow 08/26/2016 Will increase analgesics and antianxiety meds she is now off of insulin anticipate transfer to floor tomorrow. Oanh Valentine MD
[2016-08-26] MEDS: LORazepam 2 MG/ML MDV IVPUSH PRN (16:21)
[2016-08-26] MEDS: HYDROmorphone 2 MG/ML Syringe IVPUSH PRN ×3 (17:07→22:53)
[2016-08-26 18:31] LABS: CHLORIDE,CL 109 mmol/L (98-110); SODIUM,NA 139 mmol/L (136-146)
[2016-08-27] MEDS: Phosphorus #1 250 MG Tab PO SCH ×4 (00:01→17:00)
[2016-08-27] MEDS: Insulin Regular, Human 100 Units/ML 10 ML Vial SUBCUT SCH ×5 (00:04→17:01)
[2016-08-27] MEDS: Morphine 15 MG Tab PO PRN (03:20)
[2016-08-27] MEDS: HYDROmorphone 2 MG/ML Syringe IVPUSH PRN ×6 (04:32→21:49)
[2016-08-27] MEDS: Ondansetron 8 MG Tab.DIS PO PRN (05:42)
[2016-08-27] MEDS: diphenhydrAMINE 50 MG/ML SDV IVPUSH PRN ×2 (05:42→20:17)
[2016-08-27] MEDS: SYMBICORT 160/4.5 MCG INH SCH ×2 (06:17→21:22)
[2016-08-27] MEDS: Omeprazole 20 MG Cap.CR PO SCH ×2 (06:38→17:00)
[2016-08-27] MEDS: OXYMORPHONE 20 MG PO SCH ×2 (06:39→19:14)
[2016-08-27] MEDS: Oseltamivir 75 MG Cap PO SCH ×2 (08:01→20:18)
[2016-08-27] MEDS: DULoxetine 30 MG Cap PO SCH (08:02)
[2016-08-27] MEDS: Insulin Detemir 100 Units/ML 3 ML Pen SUBCUT SCH ×2 (08:02→21:48)
[2016-08-27] MEDS: Sodium Chloride 0.9% 1,000 ML IV SCH ×2 (08:15→21:55)
--- NOTE | 2016-08-27 13:58 | PCM.PN ---
- General Info Date of Service: 08/27/16 - Review of Systems Systems Review Comment:: she complains of severe abdominalpain and nausea. - Patient Data Vitals - most recent: Last Vital Signs Temp 97.8 F 08/27/16 04:00 Pulse 84 08/27/16 04:00 Resp 16 08/27/16 04:00 BP 121/79 08/27/16 04:00 Pulse Ox 96 08/27/16 04:00 Weight - most recent: 49.9 kg I&O - last 24 hours: Intake & Output 08/26/16 08/27/16 08/27/16 22:59 06:59 14:59 Intake Total 1811 655 Output Total 600 450 Balance 1211 205 Lab Results last 24 hrs: Laboratory Results - last 24 hr 08/26/16 08/26/16 08/26/16 Range/Units 11:50 16:26 17:59 Sodium 139 (136-146) mmol/L Potassium 3.9 (3.5-5.1) mmol/L Chloride 109 (98-110) mmol/L Carbon Dioxide 22 (21-31) mmol/L Anion Gap 11.9 BUN 10 (6.0-23.0) mg/dL Creatinine 0.7 (0.6-1.5) mg/dL Est Cr Clr Drug Dosing 87.48 mL/min Estimated GFR (MDRD) > 60.0 ml/min BUN/Creatinine Ratio 14.28 Glucose 150 H (60-110) mg/dL POC Glucose 141 H 109 (60-110) mg/dL Calcium 8.4 L (8.8-10.8) mg/dL Phosphorus 2.8 (2.4-4.7) mg/dL Albumin 3.7 (3.5-5.0) g/dL 08/26/16 08/27/16 08/27/16 Range/Units 21:03 00:03 03:23 Sodium (136-146) mmol/L Potassium (3.5-5.1) mmol/L Chloride (98-110) mmol/L Carbon Dioxide (21-31) mmol/L Anion Gap BUN (6.0-23.0) mg/dL Creatinine (0.6-1.5) mg/dL Est Cr Clr Drug Dosing mL/min Estimated GFR (MDRD) ml/min BUN/Creatinine Ratio Glucose (60-110) mg/dL POC Glucose 287 H 129 H 89 (60-110) mg/dL Calcium (8.8-10.8) mg/dL Phosphorus (2.4-4.7) mg/dL Albumin (3.5-5.0) g/dL 08/27/16 08/27/16 Range/Units 08:00 11:37 Sodium (136-146) mmol/L Potassium (3.5-5.1) mmol/L Chloride (98-110) mmol/L Carbon Dioxide (21-31) mmol/L Anion Gap BUN (6.0-23.0) mg/dL Creatinine (0.6-1.5) mg/dL Est Cr Clr Drug Dosing mL/min Estimated GFR (MDRD) ml/min BUN/Creatinine Ratio Glucose (60-110) mg/dL POC Glucose 203 H 156 H (60-110) mg/dL Calcium (8.8-10.8) mg/dL Phosphorus (2.4-4.7) mg/dL Albumin (3.5-5.0) g/dL Med Orders - Current: Current Medications Albuterol (Ventolin Hfa) 0 gm INH Q4H PRN PRN Reason: Dyspnea Diphenhydramine HCl (Benadryl) 25 mg IVPUSH Q8H PRN PRN Reason: Itching Last Admin: 08/27/16 05:42 Dose: 25 mg Duloxetine HCl (Cymbalta) 30 mg PO DAILY [facility] Last Admin: 08/27/16 08:02 Dose: 30 mg Hydromorphone HCl (Dilaudid) 2 mg IVPUSH Q2H PRN PRN Reason: Pain Last Admin: 08/27/16 11:11 Dose: 2 mg Sodium Chloride (Normal Saline) 1,000 mls @ 75 mls/hr IV ASDIRECTED [facility] Last Admin: 08/27/16 08:15 Dose: 75 mls/hr Insulin Detemir (Levemir) 15 unit SUBCUT BID [facility] Last Admin: 08/27/16 08:02 Dose: 15 units Insulin Human Regular (Novolin R) 0 unit SUBCUT Q4HR [facility] PRN Reason: Protocol Last Admin: 08/27/16 11:39 Dose: 3 units Loratadine (Claritin) 10 mg PO DAILY PRN PRN Reason: Allergies Last Admin: 08/26/16 11:45 Dose: 10 mg Lorazepam (Ativan) 0.5 mg PO BID PRN PRN Reason: Anxiety Lorazepam (Ativan) 1 mg IVPUSH Q6H PRN PRN Reason: Anxiety Last Admin: 08/26/16 16:21 Dose: 1 mg Morphine Sulfate (Morphine) 30 mg PO Q4H PRN PRN Reason: Breakthrough Pain Last Admin: 08/27/16 03:20 Dose: 30 mg Omeprazole (Omeprazole) 20 mg PO BIDAC [facility] Last Admin: 08/27/16 06:38 Dose: 20 mg Ondansetron HCl (Zofran) 4 mg IVPUSH Q4H PRN PRN Reason: Nausea Last Admin: 08/26/16 22:17 Dose: 4 mg Ondansetron HCl (Zofran Odt) 8 mg PO QID PRN PRN Reason: Nausea/Vomiting Last Admin: 08/27/16 05:42 Dose: 8 mg Oseltamivir Phosphate (Tamiflu) 75 mg PO BID [facility] Last Admin: 08/27/16 08:01 Dose: 75 mg Lidocaine Patch 5% 1 each TOP DAILY PRN PRN Reason: PAIN Oxymorphone Er 20 Mg 1 each PO Q12H [facility] Last Admin: 08/27/16 06:39 Dose: Not Given Symbicort 160/4.5 (Mcg) 1 each INH BIDRT [facility] Last Admin: 08/27/16 06:17 Dose: Not Given Promethazine HCl (Phenergan) 25 mg PO Q6H PRN PRN Reason: Nausea/Vomiting Sodium Phosphate (Neutra-Phos) 250 mg PO QID [facility] Last Admin: 08/27/16 11:11 Dose: 250 mg Temazepam (Restoril) 15 mg PO BEDTIME PRN PRN Reason: Sleep Discontinued Medications Diphenhydramine HCl (Benadryl) 25 mg IVPUSH ONETIME ONE Stop: 08/24/16 16:15 Last Admin: 08/24/16 16:38 Dose: 25 mg Hydromorphone HCl (Dilaudid) 1 mg IVPUSH Q2H PRN PRN Reason: Pain Last Admin: 08/26/16 13:51 Dose: 1 mg Sodium Chloride (Normal Saline) 1,000 mls @ 999 mls/hr IV .BOLUS [facility] Insulin Human Regular 100 unit (/ Sodium Chloride) 100 mls @ 4 mls/hr IV TITRATE [facility]; 4 UNIT/HR PRN Reason: Protocol Last Titration: 08/25/16 01:19 Dose: 1 unit/hr, 1 mls/hr Sodium Chloride (Normal Saline) 1,000 mls @ 999 mls/hr IV STAT ONE Stop: 08/24/16 15:24 Last Admin: 08/24/16 14:30 Dose: 999 mls/hr Sodium Chloride (Normal Saline) 1,000 mls @ 200 mls/hr IV ASDIRECTED [facility] Last Admin: 08/24/16 15:30 Dose: 200 mls/hr Dextrose/Lactated Ringer's (Dextrose 5%-Lactated Ringers) 1,000 mls @ 100 mls/ hr IV ASDIRECTED [facility] Last Admin: 08/24/16 18:44 Dose: 100 mls/hr Sodium Chloride (Normal Saline) 1,000 mls @ 100 mls/hr IV ASDIRECTED [facility] Last Admin: 08/25/16 05:45 Dose: 100 mls/hr Dextrose/Sodium Chloride (Dextrose 5%-1/2 Ns) 1,000 mls @ 150 mls/hr IV ASDIRECTED [facility] Stop: 08/25/16 20:30 Last Admin: 08/25/16 13:34 Dose: 150 mls/hr Insulin Human Regular 100 unit (/ Sodium Chloride) 100 mls @ 4.64 mls/hr IV TITRATE [facility]; 0.1 UNIT/KG/HR PRN Reason: Protocol Stop: 08/25/16 20:30 Last Titration: 08/25/16 18:34 Dose: 0.01 unit/kg/hr, 0.5 mls/hr Insulin Aspart (Novolog) 0 unit SUBCUT Q4H [facility] PRN Reason: Protocol Last Admin: 08/25/16 12:15 Dose: Not Given Insulin Aspart (Novolog) 14 unit SUBCUT NOW ONE Stop: 08/25/16 08:35 Last Admin: 08/25/16 08:40 Dose: 14 units Insulin Detemir (Levemir) 15 unit SUBCUT BIDAC [facility] Insulin Human Regular (Novolin R) 0 unit SUBCUT Q4HR [facility] PRN Reason: Protocol Last Admin: 08/25/16 04:23 Dose: Not Given Insulin Human Regular (Novolin R) 0 unit SUBCUT Q4HR [facility] PRN Reason: Protocol Stop: 08/25/16 21:02 Last Admin: 08/25/16 22:07 Dose: 3 unit Potassium Bicarbonate (Klor-Con Ef) 25 meq PO DAILY [facility] Stop: 08/25/16 06:00 Last Admin: 08/24/16 20:03 Dose: Not Given Potassium Chloride (Potassium Chloride) 40 meq PO ONETIME ONE Stop: 08/24/16 18:56 Last Admin: 08/24/16 19:11 Dose: 40 meq - Exam General: alert, cooperative Neck: trachea midline Lungs: Normal respiratory effort Cardiovascular: regular rhythm Abdomen: other (abdomen firm with moderate diffuse tenderness) - Problem List & Annotations (1) Diabetic ketoacidosis SNOMED Code(s): 445388390, 964074460 Code(s): E13.10 - OTH DIABETES MELLITUS WITH KETOACIDOSIS WITHOUT COMA Status: Acute Current Visit: Yes (2) Chronic abdominal pain SNOMED Code(s): 619046977 Code(s): R10.9 - UNSPECIFIED ABDOMINAL PAIN; G89.29 - OTHER CHRONIC PAIN Status: Acute Current Visit: Yes (3) Anxiety SNOMED Code(s): 25852370 Code(s): F41.9 - ANXIETY DISORDER, UNSPECIFIED Status: Acute Current Visit: Yes (4) Gastroparesis SNOMED Code(s): 175643888 Code(s): K31.84 - GASTROPARESIS Status: Acute Current Visit: No - Problem List Review Problem List Initiated/Reviewed/Updated: Yes - My Orders Last 24 Hours: My Active Orders 08/26/16 15:52 HYDROmorphone [Dilaudid] 2 mg IVPUSH Q2H PRN LORazepam [Ativan] 1 mg IVPUSH Q6H PRN 08/26/16 18:50 Transfer Patient (Change bed) [ADT] Routine - Plan Plan:: DKA resolved. continue Novolog sliding scale and IVF advance to ADA diet CBC and BMP WNL cxr negative, influenza negative transfer to floor anticipate discharge tomorrow 08/26/2016 Will increase analgesics and antianxiety meds she is now off of insulin anticipate transfer to floor tomorrow. Oanh Valentine MD 08/27/2016 stabilizing. anticipate discharge home tomorrow. Oanh Valentine MD
[2016-08-27] MEDS: Ondansetron 4 MG/2 ML SDV IVPUSH PRN (20:17)
[2016-08-27] MEDS: LORazepam 2 MG/ML MDV IVPUSH PRN (20:17)
[2016-08-27] MEDS: Insulin Aspart 100 Units/ML 3 ML Pen SUBCUT SCH (21:46)
[2016-08-28] MEDS: HYDROmorphone 2 MG/ML Syringe IVPUSH PRN ×5 (00:12→09:57)
[2016-08-28] MEDS: Phosphorus #1 250 MG Tab PO SCH ×3 (00:12→11:57)
[2016-08-28] MEDS: SYMBICORT 160/4.5 MCG INH SCH (06:37)
[2016-08-28] MEDS: Omeprazole 20 MG Cap.CR PO SCH (06:42)
[2016-08-28] MEDS: Ondansetron 8 MG Tab.DIS PO PRN (06:46)
[2016-08-28] MEDS: Loratadine 10 MG Tab PO PRN (06:47)
[2016-08-28] MEDS: OXYMORPHONE 20 MG PO SCH (07:18)
[2016-08-28] MEDS: Insulin Aspart 100 Units/ML 3 ML Pen SUBCUT SCH ×2 (07:55→12:19)
[2016-08-28] MEDS: Oseltamivir 75 MG Cap PO SCH (08:00)
[2016-08-28] MEDS: DULoxetine 30 MG Cap PO SCH (08:00)
[2016-08-28] MEDS: Insulin Detemir 100 Units/ML 3 ML Pen SUBCUT SCH (08:00)
[2016-08-28 08:42] VITALS: BP 121/79
[2016-08-28] MEDS: diphenhydrAMINE 50 MG/ML SDV IVPUSH PRN (09:00)
--- NOTE | 2016-08-28 10:49 | PCM.DCSUM1 ---
Discharge Summary - Hospital Course Free Text/Narrative:: 25 yo female with Type 1 DM admitted for DKA. She had URI symptoms prior to admission. Her father had a flu. She was seen in the clinic and found to have blood glucose of 748. She was admitted to ICU. She was started on insulin drip , tamiflu and IVF. Her anion gap had closed. She was transferred to floor. She does ongoing chronic abdominal pain where she is to follow up GI in [place]. She is to follow up with Dr. Black in clinic in one week. - Discharge Data Discharge Date: 08/28/16 Discharge Disposition: Home, Self-Care 01 Condition: Good - Patient Summary/Data Operative Procedure(s) Performed: portacath removal, r - Patient Instructions Diet: Diabetic Diet Activity: As Tolerated Driving: Do Not Drive Showering/Bathing: May Shower Notify Provider of: Fever, Increased Pain, Swelling and Redness, Drainage, Nausea and/or Vomiting - Discharge Plan Prescriptions/Med Rec: Oseltamivir [Tamiflu] 75 mg PO DAILY #1 cap Home Medications: Home Meds Insulin Detemir [Levemir] 15 unit SUBCUT BID 03/24/16 [History] LORazepam [Ativan] 0.5 mg PO BID PRN 03/24/16 [History] Ondansetron [Ondansetron ODT] 8 mg PO QID PRN 04/19/16 [History] Insulin Aspart [Novolog Flexpen] 16 - 20 unit SUBCUT TIDMEALS 05/15/16 [History] Omeprazole 20 mg PO BIDAC 05/15/16 [History] Albuterol Sulfate [Proair Hfa] 1 puff INH Q4H PRN 06/12/16 [History] DULoxetine [Cymbalta] 30 mg PO DAILY 08/24/16 [History] Lidocaine 5% [Lidoderm 5%] 1 patch TOP DAILY 08/24/16 [History] Morphine Sulfate 30 mg PO Q4H PRN 08/24/16 [History] Oxymorphone HCl [Oxymorphone HCl ER] 20 mg PO Q12H 08/24/16 [History] Promethazine HCl 25 mg PO Q6H PRN 08/24/16 [History] Oseltamivir [Tamiflu] 75 mg PO DAILY #1 cap 08/28/16 [Rx] Patient Handouts: Diabetic Ketoacidosis, Oseltamivir capsules Referrals: Maynor Black MD [Primary Care Provider] - 09/06/16 10:15 am - Review of Systems General: Reports: no symptoms HEENT: Reports: no symptoms Pulmonary: Reports: no symptoms Cardiovascular: Reports: no symptoms Gastrointestinal: Reports: No symptoms Musculoskeletal: Reports: no symptoms Skin: Reports: no symptoms Neurological: Reports: no symptoms Psychiatric: Reports: no symptoms - Patient Data Vitals - Most Recent: Last Vital Signs Temp 98.7 F 08/28/16 10:33 Pulse 84 08/28/16 08:00 Resp 18 08/28/16 10:33 BP 121/79 08/28/16 08:00 Pulse Ox 90 L 08/28/16 10:33 Weight - Most Recent: 49.9 kg I&O - Last 24 hours: Intake & Output 08/27/16 08/28/16 08/28/16 22:59 06:59 14:59 Intake Total 2850 550 1000 Output Total 600 Balance 2850 -50 1000 Lab Results - Last 24 hrs: Laboratory Results - last 24 hr 08/27/16 08/27/16 08/27/16 Range/Units 11:37 16:51 21:28 POC Glucose 156 H 99 251 H (60-110) mg/dL 08/28/16 Range/Units 00:57 POC Glucose 173 H (60-110) mg/dL Med Orders - Current: Current Medications Albuterol (Ventolin Hfa) 0 gm INH Q4H PRN PRN Reason: Dyspnea Diphenhydramine HCl (Benadryl) 25 mg IVPUSH Q8H PRN PRN Reason: Itching Last Admin: 08/28/16 09:00 Dose: 25 mg Duloxetine HCl (Cymbalta) 30 mg PO DAILY PIPPA Last Admin: 08/28/16 08:00 Dose: 30 mg Hydromorphone HCl (Dilaudid) 2 mg IVPUSH Q2H PRN PRN Reason: Pain Last Admin: 08/28/16 09:57 Dose: 2 mg Sodium Chloride (Normal Saline) 1,000 mls @ 75 mls/hr IV ASDIRECTED PIPPA Last Admin: 08/27/16 21:55 Dose: 75 mls/hr Insulin Aspart (Novolog) 0 unit SUBCUT ACBED PIPPA PRN Reason: Protocol Last Admin: 08/28/16 07:55 Dose: 2 units Insulin Detemir (Levemir) 15 unit SUBCUT BID [facility] Last Admin: 08/28/16 08:00 Dose: 15 units Loratadine (Claritin) 10 mg PO DAILY PRN PRN Reason: Allergies Last Admin: 08/28/16 06:47 Dose: 10 mg Lorazepam (Ativan) 0.5 mg PO BID PRN PRN Reason: Anxiety Lorazepam (Ativan) 1 mg IVPUSH Q6H PRN PRN Reason: Anxiety Last Admin: 08/27/16 20:17 Dose: 1 mg Morphine Sulfate (Morphine) 30 mg PO Q4H PRN PRN Reason: Breakthrough Pain Last Admin: 08/27/16 03:20 Dose: 30 mg [facility]) [facility] Last Admin: 08/28/16 06:42 Dose: 20 mg Ondansetron HCl (Zofran) 4 mg IVPUSH Q4H PRN PRN Reason: Nausea Last Admin: 08/27/16 20:17 Dose: 4 mg Ondansetron HCl (Zofran Odt) 8 mg PO QID PRN PRN Reason: Nausea/Vomiting Last Admin: 08/28/16 06:46 Dose: 8 mg Oseltamivir Phosphate (Tamiflu) 75 mg PO BID [facility] Last Admin: 08/28/16 08:00 Dose: 75 mg Lidocaine Patch 5% 1 each TOP DAILY PRN PRN Reason: PAIN Oxymorphone Er 20 Mg 1 each PO Q12H [facility] Last Admin: 08/28/16 07:18 Dose: Not Given Symbicort 160/4.5 (Mcg) 1 each INH BIDRT [facility] Last Admin: 08/28/16 06:37 Dose: 1 each Promethazine HCl (Phenergan) 25 mg PO Q6H PRN PRN Reason: Nausea/Vomiting Sodium Phosphate (Neutra-Phos) 250 mg PO QID [facility] Last Admin: 08/28/16 06:42 Dose: 250 mg Temazepam (Restoril) 15 mg PO BEDTIME PRN PRN Reason: Sleep Discontinued Medications Diphenhydramine HCl (Benadryl) 25 mg IVPUSH ONETIME ONE Stop: 08/24/16 16:15 Last Admin: 08/24/16 16:38 Dose: 25 mg Hydromorphone HCl (Dilaudid) 1 mg IVPUSH Q2H PRN PRN Reason: Pain Last Admin: 08/26/16 13:51 Dose: 1 mg Sodium Chloride (Normal Saline) 1,000 mls @ 999 mls/hr IV .BOLUS PIPPA Insulin Human Regular 100 unit (/ Sodium Chloride) 100 mls @ 4 mls/hr IV TITRATE PIPPA; 4 UNIT/HR PRN Reason: Protocol Last Titration: 08/25/16 01:19 Dose: 1 unit/hr, 1 mls/hr Sodium Chloride (Normal Saline) 1,000 mls @ 999 mls/hr IV STAT ONE Stop: 08/24/16 15:24 Last Admin: 08/24/16 14:30 Dose: 999 mls/hr Sodium Chloride (Normal Saline) 1,000 mls @ 200 mls/hr IV ASDIRECTED PIPPA Last Admin: 08/24/16 15:30 Dose: 200 mls/hr Dextrose/Lactated Ringer's (Dextrose 5%-Lactated Ringers) 1,000 mls @ 100 mls/ hr IV ASDIRECTED PIPPA Last Admin: 08/24/16 18:44 Dose: 100 mls/hr Sodium Chloride (Normal Saline) 1,000 mls @ 100 mls/hr IV ASDIRECTED PIPPA Last Admin: 08/25/16 05:45 Dose: 100 mls/hr Dextrose/Sodium Chloride (Dextrose 5%-1/2 Ns) 1,000 mls @ 150 mls/hr IV ASDIRECTED PIPPA Stop: 08/25/16 20:30 Last Admin: 08/25/16 13:34 Dose: 150 mls/hr Insulin Human Regular 100 unit (/ Sodium Chloride) 100 mls @ 4.64 mls/hr IV TITRATE PIPPA; 0.1 UNIT/KG/HR PRN Reason: Protocol Stop: 08/25/16 20:30 Last Titration: 08/25/16 18:34 Dose: 0.01 unit/kg/hr, 0.5 mls/hr Insulin Aspart (Novolog) 0 unit SUBCUT Q4H PIPPA PRN Reason: Protocol Last Admin: 08/25/16 12:15 Dose: Not Given Insulin Aspart (Novolog) 14 unit SUBCUT NOW ONE Stop: 08/25/16 08:35 Last Admin: 08/25/16 08:40 Dose: 14 units Insulin Detemir (Levemir) 15 unit SUBCUT BIDAC PIPPA Insulin Human Regular (Novolin R) 0 unit SUBCUT Q4HR PIPPA PRN Reason: Protocol Last Admin: 08/25/16 04:23 Dose: Not Given Insulin Human Regular (Novolin R) 0 unit SUBCUT Q4HR STA PRN Reason: Protocol Stop: 08/25/16 21:02 Last Admin: 08/25/16 22:07 Dose: 3 unit Insulin Human Regular (Novolin R) 0 unit SUBCUT Q4HR PIPPA PRN Reason: Protocol Last Admin: 08/27/16 17:01 Dose: Not Given Potassium Bicarbonate (Klor-Con Ef) 25 meq PO DAILY PIPPA Stop: 08/25/16 06:00 Last Admin: 08/24/16 20:03 Dose: Not Given Potassium Chloride (Potassium Chloride) 40 meq PO ONETIME ONE Stop: 08/24/16 18:56 Last Admin: 08/24/16 19:11 Dose: 40 meq - Exam General: Reports: alert, oriented HEENT: Reports: Pupils equal, EOMI Neck: Reports: supple, trachea midline Lungs: Reports: Clear to auscultation, Normal respiratory effort Abdomen: Reports: bowel sounds present, soft Back Exam: Reports: normal inspection, full range of motion Extremities: Reports: no edema Skin: Reports: warm, dry Neurological: Reports: no new focal deficit Psy/Mental Status: Reports: alert, normal affect, normal mood *Q Meaningful Use (DIS) - VTE *Q VTE Criteria *Q: - Stroke *Q Stroke Criteria *Q: - AMI *Q AMI Criteria *Q:
[2016-08-28] MEDS: Morphine 15 MG Tab PO PRN (11:57)
[2016-08-28] MEDS ORDERED: Flu Vaccine 2016-17(36Mos+)/PF 60 MCG/0.5 ML Syringe IM ONE ×4 (12:25→12:30)
== END 2016-08-28 12:50 | disposition home or self-care (01) | DRG 639 ==
LOC: MW.ICU 13:43 → MW.MS 08-26 19:19
PROVIDERS: ADMIT Family Medicine; ATTEND Family Medicine
DX: E10.10 Type 1 diabetes mellitus with ketoacidosis without coma (principal); J45.909 Unspecified asthma, uncomplicated; F41.8 Other specified anxiety disorders; R10.9 Unspecified abdominal pain; K31.84 Gastroparesis; Z79.4 Long term (current) use of insulin; Z88.8 Allergy status to other drugs, medicaments and biological substances; Z79.899 Other long term (current) drug therapy; E10.65 Type 1 diabetes mellitus with hyperglycemia; R11.10 Vomiting, unspecified
CPT/HCPCS: 36415; 71010; 71010-26; 80048; 80053; 80069; 81001; 81025; 82009; 82962; 83735; 85025; 87804; 90686; 94640; A9270-GY; J1170; J1200; J1815-GY ×2; J2060; J2405; J7030; J7040; J7042

== ENCOUNTER → 2016-09-06 | Outpatient (CLI) | payer MEDICAID ==
[2016-09-06 12:16] LABS: CHLORIDE,CL 105 mmol/L (98-110); SODIUM,NA 137 mmol/L (136-146)
== END ==
LOC: MW.CHFP 11:11
PROVIDERS: ATTEND Family Medicine
DX: E10.65 Type 1 diabetes mellitus with hyperglycemia (principal); R11.10 Vomiting, unspecified; R10.13 Epigastric pain; G89.29 Other chronic pain; R50.9 Fever, unspecified
CPT/HCPCS: 36415; 80053; 82009; 82150; 83690; 85025

== ENCOUNTER 2016-09-07 13:12 | Emergency (ER) | payer MEDICAID ==
[2016-09-07] MEDS ORDERED: Sodium Chloride 0.9% 10 ML Syringe FLUSH PRN (13:29)
[2016-09-07] MEDS ORDERED: Sodium Chloride 0.9% 1,000 ML IV ONE (13:29)
[2016-09-07] MEDS ORDERED: Sodium Chloride 0.9% 2.5 ML Syringe FLUSH PRN (13:29)
[2016-09-07] MEDS ORDERED: Pantoprazole 40 MG Vial IVPUSH ONE (13:30)
[2016-09-07] MEDS ORDERED: Pantoprazole 80 MG in Sodium Chloride 0.9% 100 ML IV SCH (13:30)
[2016-09-07] MEDS ORDERED: Ondansetron 4 MG/2 ML SDV IVPUSH ONE (13:54)
--- NOTE | 2016-09-07 13:55 | EDM.PDOC ---
ED HPI GI/ABDOMINAL - General Chief Complaint: Gastrointestinal Problem Stated Complaint: UNK Time Seen by Provider: 09/07/16 13:20 Source of Information: Reports: Patient History Limitations: Reports: No limitations - History of Present Illness INITIAL COMMENTS - FREE TEXT/NARRATIVE: History of present illness: [] Patient is well-known to this the ED and is a poorly controlled insulin- dependent diabetic with peptic ulcer disease and started vomiting blood and having bloody stools this morning. Patient's had 5 episodes each. She brought in by angled her glucoses over 500. Review of systems: As per history of present illness and below otherwise all systems reviewed and negative. Past medical history: As per history of present illness and as reviewed below otherwise noncontributory. Surgical history: As per history of present illness and as reviewed below otherwise noncontributory. Social history: No reported history of drug or alcohol abuse. Family history: As per history of present illness and as reviewed below otherwise noncontributory. Physical exam: General: Well developed, well nourished in NAD HEENT: Atraumatic, normocephalic, pupils reactive, negative for conjunctival pallor or scleral icterus, mucous membranes moist, throat clear, neck supple, nontender, trachea midline. Lungs: Clear to auscultation, breath sounds equal bilaterally, chest nontender. Heart: S1S2, regular, negative for clicks, rubs, or JVD. Abdomen: Soft, nondistended, nontender. Negative for masses or hepatosplenomegaly. Negative for costovertebral tenderness. Pelvis: Stable nontender. Genitourinary: Deferred. Rectal: Deferred Extremities: Atraumatic, negative for cords or calf pain. Neurovascular unremarkable. Neuro: Awake, alert, oriented. Cranial nerves II through XII unremarkable. Cerebellum unremarkable. Motor and sensory unremarkable throughout. Exam nonfocal. Diagnostics: [] Labs and exam negative for acute GI bleed, Therapeutics: [] IV hydration pain medication Impression: [] Chronic abdominal pain Plan: [] Followup Dr. Black, take Pepcid twice a day Definitive disposition and diagnosis as appropriate pending reevaluation and review of above. - Related Data Allergies/ADRs: Allergies Allergy/AdvReac Type Severity Reaction Status Date / Time acetaminophen [From Tylenol] Allergy Liver Verified 04/01/16 17:27 Problems amoxicillin Allergy Hives Verified 04/01/16 17:27 amoxicillin trihydrate Allergy Hives Verified 04/01/16 17:27 [From Amoxil] ibuprofen Allergy Liver Verified 04/01/16 17:27 Problems ketorolac tromethamine Allergy Hives Verified 04/19/16 13:59 [From Toradol] metoclopramide HCl Allergy Airway Verified 04/19/16 13:59 [From Reglan] Tightness tramadol Allergy Hives Verified 04/19/16 13:59 Home Meds: Home Meds Insulin Detemir [Levemir] 15 unit SUBCUT BID 03/24/16 [History] LORazepam [Ativan] 0.5 mg PO BID PRN 03/24/16 [History] Ondansetron [Ondansetron ODT] 8 mg PO QID PRN 04/19/16 [History] Insulin Aspart [Novolog Flexpen] 16 - 20 unit SUBCUT TIDMEALS 05/15/16 [History] Omeprazole 20 mg PO BIDAC 05/15/16 [History] Albuterol Sulfate [Proair Hfa] 1 puff INH Q4H PRN 06/12/16 [History] DULoxetine [Cymbalta] 30 mg PO DAILY 08/24/16 [History] Lidocaine 5% [Lidoderm 5%] 1 patch TOP DAILY 08/24/16 [History] Morphine Sulfate 30 mg PO Q4H PRN 08/24/16 [History] Oxymorphone HCl [Oxymorphone HCl ER] 20 mg PO Q12H 08/24/16 [History] Promethazine HCl 25 mg PO Q6H PRN 08/24/16 [History] Oseltamivir [Tamiflu] 75 mg PO DAILY #1 cap 08/28/16 [Rx] Past Medical History HEENT History: Reports: Allergic rhinitis Other HEENT History: dental abcess Cardiovascular History: Reports: None Respiratory History: Reports: Asthma Gastrointestinal History: Reports: GI bleed, Hepatitis, PUD, Other (see below) Other Gastrointestinal History: hx of C-diff, hx of Hepatitis B Genitourinary History: Reports: UTI, recurrent Other Genitourinary History: 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: Other (see below) Other OB/BYN History: had miscarriage twice Musculoskeletal History: Reports: Back pain, chronic, Other (see below) Neurological History: Reports: Migraines, Seizure 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, last on was 4 months ago Psychiatric History: Reports: Anxiety, Depression Endocrine/Metabolic History: Reports: Diabetes, type I Hematologic History: Reports: Anemia Immunologic History: Reports: None Oncologic (Cancer) History: Reports: None Dermatologic History: Reports: Other (see below) Other Dermatologic History: possible infection from port removal R upper chest - Infectious Disease History Infectious Disease History: Reports: C-difficile - Past Surgical History Head Surgeries/Procedures: Reports: None HEENT Surgical History: Reports: Tonsillectomy Cardiovascular Surgical History: Reports: None Respiratory Surgical History: Reports: None Other Respiratory Surgeries/Procedures: History of Asthma at 11 years old. GI Surgical History: Reports: Appendectomy, Cholecystectomy, ERCP Female Surgical History: Reports: None Endocrine Surgical History: Reports: None Neurological Surgical History: Reports: None Musculoskeletal Surgical History: Reports: None Oncologic Surgical History: Reports: None Dermatological Surgical History: Reports: None - History Comment History Comment: She has had over [address] scans in the last 4 years. Social & Family History - Family History Family Medical History: Noncontributory HEENT: Reports: Impaired vision Cardiac: Reports: Heart failure Respiratory: Reports: Asthma GI: Reports: None : Reports: Renal disease/insufficiency OBGYN: Reports: Musculoskeletal: Reports: Back pain, chronic Neurological: Reports: Seizure Psychiatric: Reports: None Endocrine/Metabolic: Reports: Diabetes, type I Hematologic: Reports: None Immunologic: Reports: None Dermatologic: Reports: None Oncologic: Reports: Breast, Cervix - Tobacco Use Smoking Status *Q: Never Smoker Years of Tobacco use: 4 Packs/Tins Daily: 0.5 Used Tobacco, but Quit: Yes Month Tobacco Last Used: 5 months Second Hand Smoke Exposure: No - Caffeine Use Caffeine Use: Reports: None - Alcohol Use Days Per Week of Alcohol Use: 0 - Recreational Drug Use Recreational Drug Use: No Drug Use in Last 12 Months: No - Living Situation & Occupation Living situation: Reports: with significant other (fiance.), with family, other (She shares a camper with her fiance and father) Occupation: unemployed ED ROS GENERAL - Review of Systems Review Of Systems: See Below (See history of present illness) ED EXAM, GI/ABD - Physical Exam Exam: See Below (See history of present illness) Course - Vital Signs Last Recorded V/S: Last Vital Signs Temp 37.2 C 09/07/16 16:47 Pulse 119 H 09/07/16 16:47 Resp 20 09/07/16 16:47 BP 103/63 09/07/16 16:47 Pulse Ox 99 09/07/16 16:47 - Orders/Labs/Meds Orders: Active Orders 24 hr Category Date Time Status Blood Glucose Check, Bedside [RC] ONETIME Care 09/07/16 15:01 Active Blood Glucose Check, Bedside [RC] ONETIME Care 09/07/16 16:11 Active Peripheral IV Insertion Adult [OM.PC] Stat Oth 09/07/16 13:29 Ordered Labs: Laboratory Tests 09/07/16 09/07/16 09/07/16 Range/Units 13:30 13:30 13:30 WBC 5.69 (4.0-11.0) K/uL RBC 4.46 (4.30-5.90) M/uL Hgb 13.0 (12.0-16.0) g/dL Hct 40.0 (36.0-46.0) % MCV 89.7 (80.0-98.0) fL MCH 29.1 (27.0-32.0) pg MCHC 32.5 (31.0-37.0) g/dL RDW Std Deviation 47.6 (28.0-62.0) fl RDW Coeff of Zak 15 (11.0-15.0) % Plt Count 232 (150-400) K/uL MPV 10.50 (7.40-12.00) fL Neut % (Auto) 75.4 (48.0-80.0) % Lymph % (Auto) 21.4 (16.0-40.0) % [place] % (Auto) 1.8 (0.0-15.0) % Eos % (Auto) 0.5 (0.0-7.0) % Baso % (Auto) 0.9 (0.0-1.5) % Neut # 4.3 (1.4-5.7) K/uL Lymph # 1.2 (0.6-2.4) K/uL [place] # 0.1 (0.0-0.8) K/uL Eos # 0.0 (0.0-0.7) K/uL Baso # 0.1 (0.0-0.1) K/uL Nucleated RBC % 0.0 /100WBC Nucleated RBCs # 0 K/uL INR (0.86-1.11) APTT (18.6-31.3) SEC ABG pH 7.417 (7.35-7.45) ABG pCO2 28 L (35-45) mmHG ABG pO2 48 L (75-100) mmHG ABG HCO3 18 L (22-26) mEq/L ABG Total CO2 16.6 ABG Base Excess -5.5 L (-2.0-2.0) Lactate (0.20-2.00) mmol/L Sodium 135 L (136-146) mmol/L Potassium 4.7 (3.5-5.1) mmol/L Chloride 99 (98-110) mmol/L Carbon Dioxide 14 L (21-31) mmol/L BUN 18 (6.0-23.0) mg/dL Creatinine 1.1 (0.6-1.5) mg/dL Est Cr Clr Drug Dosing 55.67 mL/min Estimated GFR (MDRD) > 60.0 ml/min Glucose 599 H* (60-110) mg/dL POC Glucose (60-110) mg/dL Calcium 9.7 (8.8-10.8) mg/dL Total Bilirubin 0.7 (0.1-1.5) mg/dL AST 116 H (5-40) IU/L ALT 91 H (8-54) IU/L Alkaline Phosphatase 178 H (40-150) Total Protein 7.5 (6.0-8.0) g/dL Albumin 4.2 (3.5-5.0) g/dL Globulin 3.3 (2.0-3.5) g/dL Albumin/Globulin Ratio 1.3 (1.3-2.8) Acetaminophen ug/mL 09/07/16 09/07/16 09/07/16 Range/Units 13:30 13:30 13:30 WBC (4.0-11.0) K/uL RBC (4.30-5.90) M/uL Hgb (12.0-16.0) g/dL Hct (36.0-46.0) % MCV (80.0-98.0) fL MCH (27.0-32.0) pg MCHC (31.0-37.0) g/dL RDW Std Deviation (28.0-62.0) fl RDW Coeff of Zak (11.0-15.0) % Plt Count (150-400) K/uL MPV (7.40-12.00) fL Neut % (Auto) (48.0-80.0) % Lymph % (Auto) (16.0-40.0) % [place] % (Auto) (0.0-15.0) % Eos % (Auto) (0.0-7.0) % Baso % (Auto) (0.0-1.5) % Neut # (1.4-5.7) K/uL Lymph # (0.6-2.4) K/uL [place] # (0.0-0.8) K/uL Eos # (0.0-0.7) K/uL Baso # (0.0-0.1) K/uL Nucleated RBC % /100WBC Nucleated RBCs # K/uL INR 0.99 (0.86-1.11) APTT 19.1 (18.6-31.3) SEC ABG pH (7.35-7.45) ABG pCO2 (35-45) mmHG ABG pO2 (75-100) mmHG ABG HCO3 (22-26) mEq/L ABG Total CO2 ABG Base Excess (-2.0-2.0) Lactate 1.6 (0.20-2.00) mmol/L Sodium (136-146) mmol/L Potassium (3.5-5.1) mmol/L Chloride (98-110) mmol/L Carbon Dioxide (21-31) mmol/L BUN (6.0-23.0) mg/dL Creatinine (0.6-1.5) mg/dL Est Cr Clr Drug Dosing mL/min Estimated GFR (MDRD) ml/min Glucose (60-110) mg/dL POC Glucose (60-110) mg/dL Calcium (8.8-10.8) mg/dL Total Bilirubin (0.1-1.5) mg/dL AST (5-40) IU/L ALT (8-54) IU/L Alkaline Phosphatase (40-150) Total Protein (6.0-8.0) g/dL Albumin (3.5-5.0) g/dL Globulin (2.0-3.5) g/dL Albumin/Globulin Ratio (1.3-2.8) Acetaminophen < 3.0 ug/mL 09/07/16 09/07/16 Range/Units 15:35 16:15 WBC (4.0-11.0) K/uL RBC (4.30-5.90) M/uL Hgb (12.0-16.0) g/dL Hct (36.0-46.0) % MCV (80.0-98.0) fL MCH (27.0-32.0) pg MCHC (31.0-37.0) g/dL RDW Std Deviation (28.0-62.0) fl RDW Coeff of Zak (11.0-15.0) % Plt Count (150-400) K/uL MPV (7.40-12.00) fL Neut % (Auto) (48.0-80.0) % Lymph % (Auto) (16.0-40.0) % [place] % (Auto) (0.0-15.0) % Eos % (Auto) (0.0-7.0) % Baso % (Auto) (0.0-1.5) % Neut # (1.4-5.7) K/uL Lymph # (0.6-2.4) K/uL [place] # (0.0-0.8) K/uL Eos # (0.0-0.7) K/uL Baso # (0.0-0.1) K/uL Nucleated RBC % /100WBC Nucleated RBCs # K/uL INR (0.86-1.11) APTT (18.6-31.3) SEC ABG pH (7.35-7.45) ABG pCO2 (35-45) mmHG ABG pO2 (75-100) mmHG ABG HCO3 (22-26) mEq/L ABG Total CO2 ABG Base Excess (-2.0-2.0) Lactate (0.20-2.00) mmol/L Sodium (136-146) mmol/L Potassium (3.5-5.1) mmol/L Chloride (98-110) mmol/L Carbon Dioxide (21-31) mmol/L BUN (6.0-23.0) mg/dL Creatinine (0.6-1.5) mg/dL Est Cr Clr Drug Dosing mL/min Estimated GFR (MDRD) ml/min Glucose (60-110) mg/dL POC Glucose 393 H 303 H (60-110) mg/dL Calcium (8.8-10.8) mg/dL Total Bilirubin (0.1-1.5) mg/dL AST (5-40) IU/L ALT (8-54) IU/L Alkaline Phosphatase (40-150) Total Protein (6.0-8.0) g/dL Albumin (3.5-5.0) g/dL Globulin (2.0-3.5) g/dL Albumin/Globulin Ratio (1.3-2.8) Acetaminophen ug/mL Meds: Medications Discontinued Medications Generic Name Dose Route Start Last Admin Trade Name Freq PRN Reason Stop Dose Admin Dicyclomine HCl 10 mg 09/07/16 14:13 09/07/16 14:20 Bentyl PO 09/07/16 14:14 10 mg ONETIME ONE Administration Famotidine 20 mg 09/07/16 14:18 09/07/16 14:24 Pepcid IVPUSH 09/07/16 14:19 20 mg ONETIME ONE Administration Pantoprazole Sodium 80 mg/ 100 mls @ 10 mls/hr 09/07/16 13:30 Sodium Chloride IV .Continuous PIPPA Sodium Chloride 1,000 mls @ 999 mls/hr 09/07/16 13:29 09/07/16 14:01 Normal Saline IV 09/07/16 14:29 999 mls/hr .Bolus ONE Administration Insulin Human Regular 10 unit 09/07/16 14:33 09/07/16 14:43 Novolin R IVPUSH 09/07/16 14:34 10 units ONETIME ONE Administration Protocol Insulin Human Regular 10 unit 09/07/16 15:40 09/07/16 15:44 Novolin R SUBCUT 09/07/16 15:41 10 units STAT ONE Administration Protocol Insulin Human Regular 10 unit 09/07/16 15:39 09/07/16 15:45 Novolin R IVPUSH 09/07/16 15:40 Not Given ONETIME ONE Protocol Metoclopramide HCl 10 mg 09/07/16 14:15 09/07/16 14:24 Reglan IVPUSH 09/07/16 14:16 Not Given ONETIME ONE Morphine Sulfate 6 mg 09/07/16 14:10 09/07/16 14:20 Morphine IVPUSH 09/07/16 14:11 6 mg ONETIME ONE Administration Ondansetron HCl 4 mg 09/07/16 13:54 09/07/16 14:01 Zofran IVPUSH 09/07/16 13:55 4 mg ONETIME ONE Administration Pantoprazole Sodium 80 mg 09/07/16 13:30 Protonix Iv IVPUSH 09/07/16 13:31 .BOLUS ONE Sodium Chloride 10 ml 09/07/16 13:29 Saline Flush FLUSH ASDIRECTED PRN Keep Vein Open Sodium Chloride 2.5 ml 09/07/16 13:29 Saline Flush FLUSH ASDIRECTED PRN Keep Vein Open Departure - Departure Time of Disposition: 15:35 Disposition: Home, Self-Care 01 Condition: good Clinical Impression: Abdominal pain, chronic, generalized Uncontrolled diabetes mellitus Qualifiers: Diabetes mellitus type: type 1 Diabetes mellitus complication status: with unspecified complications Qualified Code(s): E10.8 - Type 1 diabetes mellitus with unspecified complications Instructions: Type 1 Diabetes Mellitus, Adult, Abdominal Pain, Adult, Easy-to- Read Referrals: Maynor Black MD [Primary Care Provider] - Forms: ED Department Discharge Additional Instructions: The following information is given to patients seen in the emergency department who are being discharged to home. This information is to outline your options for follow-up care. We provide all patients seen in our emergency department with a follow-up referral. The need for follow-up, as well as the timing and circumstances, are variable depending upon the specifics of your emergency department visit. If you don't have a primary care physician on staff, we will provide you with a referral. We always advise you to contact your personal physician following an emergency department visit to inform them of the circumstance of the visit and for follow-up with them and/or the need for any referrals to a consulting specialist. The emergency department will also refer you to a specialist when appropriate. This referral assures that you have the opportunity for follow-up care with a specialist. All of these measure are taken in an effort to provide you with optimal care, which includes your follow-up. Under all circumstances we always encourage you to contact your private physician who remains a resource for coordinating your care. When calling for follow-up care, please make the office aware that this follow-up is from your recent emergency room visit. If for any reason you are refused follow-up, please contact the [facility] Emergency Department at and asked to speak to the emergency department charge nurse. Followup Dr. black - My Orders Last 24 Hours: My Active Orders 09/07/16 13:29 Peripheral IV Insertion Adult [OM.PC] Stat 09/07/16 15:01 Blood Glucose Check, Bedside [RC] ONETIME 09/07/16 16:11 Blood Glucose Check, Bedside [RC] ONETIME - Assessment/Plan Last 24 Hours: My Active Orders 09/07/16 13:29 Peripheral IV Insertion Adult [OM.PC] Stat 09/07/16 15:01 Blood Glucose Check, Bedside [RC] ONETIME 09/07/16 16:11 Blood Glucose Check, Bedside [RC] ONETIME
[2016-09-07] MEDS ORDERED: Morphine 2 MG/ML Syringe IVPUSH ONE (14:10)
[2016-09-07] MEDS ORDERED: Dicyclomine 10 MG Cap PO ONE (14:13)
[2016-09-07] MEDS ORDERED: Metoclopramide 10 MG/2 ML SDV IVPUSH ONE (14:15)
[2016-09-07] MEDS ORDERED: Famotidine 20 MG/2 ML SDV IVPUSH ONE (14:18)
[2016-09-07 14:22] LABS: CHLORIDE,CL 99 mmol/L (98-110); SODIUM,NA 135 mmol/L (136-146)
[2016-09-07] MEDS ORDERED: Insulin Regular, Human 100 Units/ML 10 ML Vial IVPUSH ONE ×2 (14:33→15:39)
[2016-09-07] MEDS ORDERED: Insulin Regular, Human 100 Units/ML 10 ML Vial SUBCUT ONE (15:40)
[2016-09-07 16:50] VITALS: BP 103/63
== END 2016-09-07 16:47 | disposition home or self-care (01) ==
LOC: MW.ED 13:12
DX: E10.9 Type 1 diabetes mellitus without complications (principal); R10.84 Generalized abdominal pain; G89.29 Other chronic pain; J45.909 Unspecified asthma, uncomplicated; F41.9 Anxiety disorder, unspecified; F32.9 Major depressive disorder, single episode, unspecified; Z88.1 Allergy status to other antibiotic agents; Z88.6 Allergy status to analgesic agent; Z79.4 Long term (current) use of insulin; Z79.899 Other long term (current) drug therapy; Z87.440 Personal history of urinary (tract) infections; Z98.890 Other specified postprocedural states; Z90.49 Acquired absence of other specified parts of digestive tract; Z86.2 Personal history of diseases of the blood and blood-forming organs and certain disorders involving the immune mechanism; Z88.5 Allergy status to narcotic agent; Z88.8 Allergy status to other drugs, medicaments and biological substances
CPT/HCPCS: 36415; 36600; 80053; 82803; 82962; 83605; 83690; 85025; 85610; 85730; 96361; 96372; 96374; 96375; 99283; 99284; A9270; G0480; J2270; J2405; J7040; 99282; J1815-GY

== ENCOUNTER 2016-09-07 20:16 | Emergency (ER) | payer MEDICAID ==
--- NOTE | 2016-09-07 20:27 | EDM.PDOC ---
ED HPI GENERAL MEDICAL PROBLEM - General Chief Complaint: Abdominal Pain Stated Complaint: STOMACH PAIN Time Seen by Provider: 09/07/16 21:17 - History of Present Illness INITIAL COMMENTS - FREE TEXT/NARRATIVE: HISTORY AND PHYSICAL: History of present illness: This 25-year-old white female returns ER was well known to the emergency department was medically noncompliant and is poorly controlled diabetic with multiple medical complaints including chronic intermittent abdominal pain she was seen her today and had a complete workup and was discharged for followup with her private medical doctor this case was discussed at that time with her private medical doctor. Review of systems: As per history of present illness and below otherwise all systems reviewed and negative. Past medical history: As per history of present illness and as reviewed below otherwise noncontributory. Surgical history: As per history of present illness and as reviewed below otherwise noncontributory. Social history: No reported history of drug or alcohol abuse. Family history: As per history of present illness and as reviewed below otherwise noncontributory. Physical exam: HEENT: Atraumatic, normocephalic, pupils reactive, negative for conjunctival pallor or scleral icterus, mucous membranes moist, throat clear, neck supple, nontender, trachea midline. Lungs: Clear to auscultation, breath sounds equal bilaterally, chest nontender. Heart: S1S2, regular, negative for clicks, rubs, or JVD. Abdomen: Soft, nondistended, no localized tenderness. Negative for masses or hepatosplenomegaly. Negative for costovertebral tenderness. Pelvis: Stable nontender. Genitourinary: Deferred. Rectal: Deferred. Extremities: Atraumatic, negative for cords or calf pain. Neurovascular unremarkable. Neuro: Awake, alert, oriented. Cranial nerves II through XII unremarkable. Cerebellum unremarkable. Motor and sensory unremarkable throughout. Exam nonfocal. Diagnostics: CBC CMP lipase Therapeutics: None Impression: #1 medical noncompliance #2 diabetes #3 chronic abdominal pain Definitive disposition and diagnosis as appropriate pending reevaluation and review of above. - Related Data Allergies Allergy/AdvReac Type Severity Reaction Status Date / Time acetaminophen [From Tylenol] Allergy Liver Verified 09/07/16 20:27 Problems amoxicillin Allergy Hives Verified 09/07/16 20:27 amoxicillin trihydrate Allergy Hives Verified 09/07/16 20:27 [From Amoxil] ibuprofen Allergy Liver Verified 09/07/16 20:27 Problems ketorolac tromethamine Allergy Hives Verified 09/07/16 20:27 [From Toradol] metoclopramide HCl Allergy Airway Verified 09/07/16 20:27 [From Reglan] Tightness tramadol Allergy Hives Verified 09/07/16 20:27 Home Meds: Home Meds Insulin Detemir [Levemir] 15 unit SUBCUT BID 03/24/16 [History] LORazepam [Ativan] 0.5 mg PO BID PRN 03/24/16 [History] Ondansetron [Ondansetron ODT] 8 mg PO QID PRN 04/19/16 [History] Insulin Aspart [Novolog Flexpen] 16 - 20 unit SUBCUT TIDMEALS 05/15/16 [History] Omeprazole 20 mg PO BIDAC 05/15/16 [History] Albuterol Sulfate [Proair Hfa] 1 puff INH Q4H PRN 06/12/16 [History] Oxymorphone HCl [Oxymorphone HCl ER] 20 mg PO Q12H 08/24/16 [History] Promethazine HCl 25 mg PO Q6H PRN 08/24/16 [History] Oseltamivir [Tamiflu] 75 mg PO DAILY #1 cap 08/28/16 [Rx] Past Medical History HEENT History: Reports: Allergic rhinitis Other HEENT History: dental abcess Cardiovascular History: Reports: None Respiratory History: Reports: Asthma Gastrointestinal History: Reports: GI bleed, Hepatitis, PUD, Other (see below) Other Gastrointestinal History: hx of C-diff, hx of Hepatitis B Genitourinary History: Reports: UTI, recurrent Other Genitourinary History: current UTI [employer]ER History: Reports: Other (see below) Other OB/BYN History: had miscarriage twice Musculoskeletal History: Reports: Back pain, chronic, Other (see below) Neurological History: Reports: Migraines, Seizure 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, last on was 4 months ago Psychiatric History: Reports: Anxiety, Depression Endocrine/Metabolic History: Reports: Diabetes, type I Hematologic History: Reports: Anemia Immunologic History: Reports: None Oncologic (Cancer) History: Reports: None Dermatologic History: Reports: Other (see below) Other Dermatologic History: possible infection from port removal R upper chest - Infectious Disease History Infectious Disease History: Reports: C-difficile - Past Surgical History Head Surgeries/Procedures: Reports: None HEENT Surgical History: Reports: Tonsillectomy Cardiovascular Surgical History: Reports: None Respiratory Surgical History: Reports: None Other Respiratory Surgeries/Procedures: History of Asthma at 11 years old. GI Surgical History: Reports: Appendectomy, Cholecystectomy, ERCP Female Surgical History: Reports: None Endocrine Surgical History: Reports: None Neurological Surgical History: Reports: None Musculoskeletal Surgical History: Reports: None Oncologic Surgical History: Reports: None Dermatological Surgical History: Reports: None - History Comment History Comment: She has had over [address] scans in the last 4 years. Social & Family History - Family History Family Medical History: Noncontributory HEENT: Reports: Impaired vision Cardiac: Reports: Heart failure Respiratory: Reports: Asthma GI: Reports: None : Reports: Renal disease/insufficiency OBGYN: Reports: Musculoskeletal: Reports: Back pain, chronic Neurological: Reports: Seizure Psychiatric: Reports: None Endocrine/Metabolic: Reports: Diabetes, type I Hematologic: Reports: None Immunologic: Reports: None Dermatologic: Reports: None Oncologic: Reports: Breast, Cervix - Tobacco Use Smoking Status *Q: Never Smoker Years of Tobacco use: 4 Packs/Tins Daily: 0.5 Used Tobacco, but Quit: Yes Month Tobacco Last Used: 5 months Second Hand Smoke Exposure: No - Caffeine Use Caffeine Use: Reports: None - Alcohol Use Days Per Week of Alcohol Use: 0 - Recreational Drug Use Recreational Drug Use: No Drug Use in Last 12 Months: No - Living Situation & Occupation Living situation: Reports: with significant other (fiance.), with family, other (She shares a camper with her fiance and father) Occupation: unemployed ED ROS GENERAL - Review of Systems Review Of Systems: ROS reveals no pertinent complaints other than HPI. ED EXAM, GENERAL - Physical Exam Exam: See Below (See dictated) Course - Vital Signs Last Recorded V/S: Last Vital Signs Temp 37.3 C 09/07/16 20:27 Pulse 115 H 09/07/16 20:27 Resp 18 09/07/16 20:27 BP 114/60 09/07/16 20:27 Pulse Ox 92 L 09/07/16 20:27 - Orders/Labs/Meds Labs: Laboratory Tests 09/07/16 09/07/16 Range/Units 20:42 20:42 WBC 8.13 (4.0-11.0) K/uL RBC 4.07 L (4.30-5.90) M/uL Hgb 11.7 L (12.0-16.0) g/dL Hct 36.0 (36.0-46.0) % MCV 88.5 (80.0-98.0) fL MCH 28.7 (27.0-32.0) pg MCHC 32.5 (31.0-37.0) g/dL RDW Std Deviation 48.2 (28.0-62.0) fl RDW Coeff of Zak 15 (11.0-15.0) % Plt Count 245 (150-400) K/uL MPV 9.70 (7.40-12.00) fL Neut % (Auto) 73.3 (48.0-80.0) % Lymph % (Auto) 22.5 (16.0-40.0) % [place] % (Auto) 3.8 (0.0-15.0) % Eos % (Auto) 0.0 (0.0-7.0) % Baso % (Auto) 0.4 (0.0-1.5) % Neut # 6.0 H (1.4-5.7) K/uL Lymph # 1.8 (0.6-2.4) K/uL [place] # 0.3 (0.0-0.8) K/uL Eos # 0.0 (0.0-0.7) K/uL Baso # 0.0 (0.0-0.1) K/uL Nucleated RBC % 0.0 /100WBC Nucleated RBCs # 0 K/uL Sodium 138 (136-146) mmol/L Potassium 4.1 (3.5-5.1) mmol/L Chloride 105 (98-110) mmol/L Carbon Dioxide 16 L (21-31) mmol/L BUN 14 (6.0-23.0) mg/dL Creatinine 0.9 (0.6-1.5) mg/dL Est Cr Clr Drug Dosing 64.44 mL/min Estimated GFR (MDRD) > 60.0 ml/min Glucose 369 H (60-110) mg/dL Calcium 9.5 (8.8-10.8) mg/dL Total Bilirubin 0.6 (0.1-1.5) mg/dL AST 68 H (5-40) IU/L ALT 78 H (8-54) IU/L Alkaline Phosphatase 160 H (40-150) Total Protein 7.4 (6.0-8.0) g/dL Albumin 4.1 (3.5-5.0) g/dL Globulin 3.3 (2.0-3.5) g/dL Albumin/Globulin Ratio 1.2 L (1.3-2.8) Lipase 14 (7-80) U/L Departure - Departure Time of Disposition: 21:17 Disposition: Home, Self-Care 01 Condition: good Clinical Impression: Medical non-compliance, Chronic abdominal pain Diabetes Qualifiers: Diabetes mellitus type: type 1 Diabetes mellitus complication status: without complication Qualified Code(s): E10.9 - Type 1 diabetes mellitus without complications Forms: ED Department Discharge Additional Instructions: The following information is given to patients seen in the emergency department who are being discharged to home. This information is to outline your options for follow-up care. We provide all patients seen in our emergency department with a follow-up referral. The need for follow-up, as well as the timing and circumstances, are variable depending upon the specifics of your emergency department visit. If you don't have a primary care physician on staff, we will provide you with a referral. We always advise you to contact your personal physician following an emergency department visit to inform them of the circumstance of the visit and for follow-up with them and/or the need for any referrals to a consulting specialist. The emergency department will also refer you to a specialist when appropriate. This referral assures that you have the opportunity for followup care with a specialist. All of these measure are taken in an effort to provide you with optimal care, which includes your followup. Under all circumstances we always encourage you to contact your private physician who remains a resource for coordinating your care. When calling for followup care, please make the office aware that this follow-up is from your recent emergency room visit. If for any reason you are refused follow-up, please contact the [facility] emergency department at and asked to speak to the emergency department charge nurse. Push fluids continue current medications follow up primary medical doctor one to 2 days return as needed as discussed
[2016-09-07 20:32] VITALS: BP 114/60
[2016-09-07 21:10] LABS: CHLORIDE,CL 105 mmol/L (98-110); SODIUM,NA 138 mmol/L (136-146)
== END 2016-09-07 21:30 | disposition home or self-care (01) ==
LOC: MW.ED 20:16
DX: E10.9 Type 1 diabetes mellitus without complications (principal); R10.9 Unspecified abdominal pain; G89.29 Other chronic pain; J45.909 Unspecified asthma, uncomplicated; Z87.440 Personal history of urinary (tract) infections; F41.9 Anxiety disorder, unspecified; Z86.2 Personal history of diseases of the blood and blood-forming organs and certain disorders involving the immune mechanism; Z98.890 Other specified postprocedural states; Z90.49 Acquired absence of other specified parts of digestive tract; Z79.899 Other long term (current) drug therapy; Z79.4 Long term (current) use of insulin; Z88.1 Allergy status to other antibiotic agents; Z88.5 Allergy status to narcotic agent; Z88.8 Allergy status to other drugs, medicaments and biological substances
CPT/HCPCS: 36415; 80053; 83690; 85025; 99282; 99283

== ENCOUNTER 2016-09-15 20:38 | Emergency (ER) | payer MEDICAID ==
[2016-09-15] MEDS ORDERED: Sodium Chloride 0.9% 10 ML Syringe FLUSH PRN (21:06)
[2016-09-15] MEDS ORDERED: Sodium Chloride 0.9% 2.5 ML Syringe FLUSH PRN (21:06)
[2016-09-15] MEDS ORDERED: Pantoprazole 40 MG Vial IVPUSH ONE (21:06)
[2016-09-15] MEDS ORDERED: HYDROmorphone 2 MG/ML Syringe IVPUSH ONE (21:07)
[2016-09-15] MEDS ORDERED: Ondansetron 4 MG/2 ML SDV IVPUSH ONE ×2 (21:07→23:46)
[2016-09-15] MEDS ORDERED: Insulin Regular, Human 100 Units/ML 10 ML Vial SUBCUT ONE (21:08)
--- NOTE | 2016-09-15 21:12 | EDM.PDOC ---
ED HPI GENERAL MEDICAL PROBLEM - General Chief Complaint: General Stated Complaint: PT UPPER LT SIDE HURTS Time Seen by Provider: 09/15/16 20:44 - History of Present Illness INITIAL COMMENTS - FREE TEXT/NARRATIVE: HISTORY AND PHYSICAL: History of present illness: The patient is a 25 rolled female well-known to the ER staff and myself due to multiple ER visits and multiple hospital admissions for poorly controlled diabetes, DKA, chronic abdominal pain; she presents tonight with complaints of left flank and left upper abdominal pain over the last couple of days and vomiting x8 times today and inability to take her meds. She states her sugar has been running "high" for the last couple of days and she has a history of same. She was admitted here in July and the end of August for DKA and as mentioned our clinic with for her diabetes and her chronic pain issues. The patient is a known history of chronic abdominal pain and history with oxymorphone 20mg every 12 hours and has done well with this regimen. Patient also is a history of peptic ulcer disease and was supposed to see the GI physician at [facility] in [place] this week on the but missed the appointment. She has not been vomiting blood or coffee grounds. She describes her pain is more in the left upper abdomen area she says is more atypical than her chronic abdominal pain. She has no urinary complaints and denies . The patient also states that she has had loose stools but always has chronic loose stools and there is nothing new about that. Review of systems: As per history of present illness and below otherwise all systems reviewed and negative. Past medical history: As per history of present illness and as reviewed below otherwise noncontributory. Surgical history: As per history of present illness and as reviewed below otherwise noncontributory. Social history: No reported history of drug or alcohol abuse. Family history: As per history of present illness and as reviewed below otherwise noncontributory. Physical exam: General: Well-developed thin female who is nontoxic and speaking clearly and easily in the ER. I do not smell any acetone on her breath. Her vital signs were noted by me and she is very anxious and tearful which is her typical presentation HEENT: Atraumatic, normocephalic, pupils reactive, negative for conjunctival pallor or scleral icterus, mucous membranes tacky, throat clear, neck supple, nontender, trachea midline. Lungs: Clear to auscultation, breath sounds equal bilaterally, chest nontender. Heart: S1S2, regular rhythm and slightly tachycardic rate of my evaluation, negative for clicks, rubs, or JVD. Abdomen: Soft, nondistended, with minimal diffuse abdominal tenderness on deep palpation without rebound or guarding, bowel sounds are hypoactive, Negative for masses or hepatosplenomegaly. Negative for costovertebral tenderness. Pelvis: Stable nontender. Genitourinary: Deferred. Rectal: Deferred. Extremities: Atraumatic, negative for cords or calf pain. Neurovascular unremarkable. Neuro: Awake, alert, oriented. Cranial nerves II through XII unremarkable. Cerebellum unremarkable. Motor and sensory unremarkable throughout. Exam nonfocal. Diagnostics: CBC CMP amylase lipase UA urine culture if indicated serum ketones ABG if indicated Will consider CT scan pending the lab results and patient response to therapy Therapeutics: IV fluids insulin Protonix Zofran Dilaudid The patient states that she's not having much nausea that she still having pain and is requesting more pain medication. I told her that I would give her more IV fluids as well as more Zofran but that once she is able to take her pain pills we would start giving her those. I discussed this case with Dr. Escobedo at 2345. He does not feel that she needs emergent admission and she has no anion gap and her sugars responding to insulin and fluid management. We did discuss adding a Tylenol and ammonia level just because of the bump in her AST and ALT without change in her bilirubin or alkaline phosphatase. Patient has no right upper quadrant discomfort. Patient is aware of this plan 0100: I. was told that the patient removed her IV and left the ER without getting her ammonia or Tylenol levels sent and her last Accu-Chek was 117. I discussed with her that we are going to follow those labs and if those were within normal limits we would discharge her and I can only assume that she did not want to wait. She did not express to me that she was going to leave and when the room was cleaned by the tech she found the IV catheter and saw the patient earlier leaving and thought she was just discharged. The patient was never given discharge papers or a conversation was not had about her leaving AMA. Last set of vitals were performed at 0035. Impression: Upper glycemia with history of poorly controlled diabetes, elevated AST and ALT etiology unclear-- patient absconded Definitive disposition and diagnosis as appropriate pending reevaluation and review of above. left side left shoulder Pain Score (Numeric/FACES): 10 - Related Data Allergies Allergy/AdvReac Type Severity Reaction Status Date / Time acetaminophen [From Tylenol] Allergy Liver Verified 09/15/16 20:51 Problems amoxicillin Allergy Hives Verified 09/15/16 20:51 amoxicillin trihydrate Allergy Hives Verified 09/15/16 20:51 [From Amoxil] ibuprofen Allergy Liver Verified 09/15/16 20:51 Problems ketorolac tromethamine Allergy Hives Verified 09/15/16 20:51 [From Toradol] metoclopramide HCl Allergy Airway Verified 09/15/16 20:51 [From Reglan] Tightness tramadol Allergy Hives Verified 09/15/16 20:51 Home Meds: Home Meds Insulin Detemir [Levemir] 15 unit SUBCUT BID 03/24/16 [History] LORazepam [Ativan] 0.5 mg PO BID PRN 03/24/16 [History] Ondansetron [Ondansetron ODT] 8 mg PO QID PRN 04/19/16 [History] Insulin Aspart [Novolog Flexpen] 16 - 20 unit SUBCUT TIDMEALS 05/15/16 [History] Omeprazole 20 mg PO BIDAC 05/15/16 [History] Albuterol Sulfate [Proair Hfa] 1 puff INH Q4H PRN 06/12/16 [History] Oxymorphone HCl [Oxymorphone HCl ER] 20 mg PO Q12H 08/24/16 [History] Promethazine HCl 25 mg PO Q6H PRN 08/24/16 [History] Oseltamivir [Tamiflu] 75 mg PO DAILY #1 cap 08/28/16 [Rx] Past Medical History - Past Health History Medical/Surgical History: Denies Medical/Surgical History HEENT History: Reports: Allergic rhinitis Other HEENT History: dental abcess Cardiovascular History: Reports: None Respiratory History: Reports: Asthma Gastrointestinal History: Reports: GI bleed, Hepatitis, PUD, Other (see below) Other Gastrointestinal History: hx of C-diff, hx of Hepatitis B Genitourinary History: Reports: UTI, recurrent Other Genitourinary History: current UTI 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: Reports: Other (see below) Other OB/BYN History: had miscarriage twice Musculoskeletal History: Reports: Back pain, chronic, Other (see below) Neurological History: Reports: Migraines, Seizure 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, last on was 4 months ago Psychiatric History: Reports: Anxiety, Depression Endocrine/Metabolic History: Reports: Diabetes, type I Hematologic History: Reports: Anemia Immunologic History: Reports: None Oncologic (Cancer) History: Reports: None Dermatologic History: Reports: Other (see below) Other Dermatologic History: possible infection from port removal R upper chest - Infectious Disease History Infectious Disease History: Reports: C-difficile, Chicken pox, Hepatitis B - Past Surgical History Head Surgeries/Procedures: Reports: None HEENT Surgical History: Reports: Tonsillectomy Cardiovascular Surgical History: Reports: None Respiratory Surgical History: Reports: None Other Respiratory Surgeries/Procedures: History of Asthma at 11 years old. GI Surgical History: Reports: Appendectomy, Cholecystectomy, ERCP Female Surgical History: Reports: None Endocrine Surgical History: Reports: None Neurological Surgical History: Reports: None Musculoskeletal Surgical History: Reports: None Oncologic Surgical History: Reports: None Dermatological Surgical History: Reports: None - History Comment History Comment: She has had over [address] scans in the last 4 years. Social & Family History - Family History Family Medical History: Noncontributory HEENT: Reports: Impaired vision Cardiac: Reports: Heart failure Respiratory: Reports: Asthma GI: Reports: None : Reports: Renal disease/insufficiency OBGYN: Reports: Musculoskeletal: Reports: Back pain, chronic Neurological: Reports: Seizure Psychiatric: Reports: None Endocrine/Metabolic: Reports: Diabetes, type I Hematologic: Reports: None Immunologic: Reports: None Dermatologic: Reports: None Oncologic: Reports: Breast, Cervix - Tobacco Use Smoking Status *Q: Former Smoker Years of Tobacco use: 4 Packs/Tins Daily: 0.5 Used Tobacco, but Quit: Yes Month Tobacco Last Used: 5 months Second Hand Smoke Exposure: No - Caffeine Use Caffeine Use: Reports: None - Alcohol Use Days Per Week of Alcohol Use: 0 - Recreational Drug Use Recreational Drug Use: No Drug Use in Last 12 Months: No - Living Situation & Occupation Living situation: Reports: with significant other (fiance.), with family, other (She shares a camper with her fiance and father) Occupation: unemployed ED ROS GENERAL - Review of Systems Review Of Systems: ROS reveals no pertinent complaints other than HPI. ED EXAM, GENERAL - Physical Exam Exam: See Below (See dictation) Course - Vital Signs Last Recorded V/S: Last Vital Signs Temp 37.2 C 09/16/16 00:35 Pulse 114 H 09/16/16 00:35 Resp 19 09/16/16 00:35 BP 113/72 09/16/16 00:35 Pulse Ox 98 09/16/16 00:35 - Orders/Labs/Meds Orders: Active Orders 24 hr Category Date Time Status Blood Glucose Check, Bedside [RC] ONETIME Care 09/15/16 21:06 Active Blood Glucose Check, Bedside [RC] ONETIME Care 09/15/16 23:47 Active ACETAMINOPHEN [CHEM] Stat Lab 09/15/16 23:45 Ordered AMMONIA VENOUS [CHEM] Stat Lab 09/15/16 23:45 Ordered Sodium Chloride 0.9% [Normal Saline] 500 ml Med 09/15/16 23:45 Active IV STAT Sodium Chloride 0.9% [Saline Flush] Med 09/15/16 21:06 Active 10 ml FLUSH ASDIRECTED PRN Sodium Chloride 0.9% [Saline Flush] Med 09/15/16 21:06 Active 2.5 ml FLUSH ASDIRECTED PRN Saline Lock Insert [OM.PC] Stat Oth 09/15/16 21:06 Ordered Medication Orders Sodium Chloride (Normal Saline) 500 mls @ 999 mls/hr IV STAT PIPPA Last Admin: 09/15/16 23:55 Dose: 999 mls/hr Sodium Chloride (Saline Flush) 10 ml FLUSH ASDIRECTED PRN PRN Reason: Keep Vein Open Sodium Chloride (Saline Flush) 2.5 ml FLUSH ASDIRECTED PRN PRN Reason: Keep Vein Open Labs: Laboratory Tests 09/15/16 09/15/16 09/15/16 Range/Units 20:59 21:57 21:57 WBC 4.38 (4.0-11.0) K/uL RBC 4.07 L (4.30-5.90) M/uL Hgb 11.8 L (12.0-16.0) g/dL Hct 36.6 (36.0-46.0) % MCV 89.9 (80.0-98.0) fL MCH 29.0 (27.0-32.0) pg MCHC 32.2 (31.0-37.0) g/dL RDW Std Deviation 46.8 (28.0-62.0) fl RDW Coeff of Zak 14 (11.0-15.0) % Plt Count 334 (150-400) K/uL MPV 10.20 (7.40-12.00) fL Neut % (Auto) 68.2 (48.0-80.0) % Lymph % (Auto) 26.5 (16.0-40.0) % Jay % (Auto) 3.9 (0.0-15.0) % Eos % (Auto) 0.5 (0.0-7.0) % Baso % (Auto) 0.9 (0.0-1.5) % Neut # 3.0 (1.4-5.7) K/uL Lymph # 1.2 (0.6-2.4) K/uL Jay # 0.2 (0.0-0.8) K/uL Eos # 0.0 (0.0-0.7) K/uL Baso # 0.0 (0.0-0.1) K/uL Nucleated RBC % 0.0 /100WBC Nucleated RBCs # 0 K/uL Sodium 133 L (136-146) mmol/L Potassium 4.1 (3.5-5.1) mmol/L Chloride 100 (98-110) mmol/L Carbon Dioxide 19 L (21-31) mmol/L BUN 18 (6.0-23.0) mg/dL Creatinine 0.9 (0.6-1.5) mg/dL Est Cr Clr Drug Dosing 68.04 mL/min Estimated GFR (MDRD) > 60.0 ml/min Glucose 518 H* (60-110) mg/dL POC Glucose > 500 H (60-110) mg/dL Calcium 8.7 L (8.8-10.8) mg/dL Total Bilirubin 0.8 (0.1-1.5) mg/dL AST 452 H (5-40) IU/L ALT 265 H (8-54) IU/L Alkaline Phosphatase 182 H (40-150) Total Protein 7.2 (6.0-8.0) g/dL Albumin 3.9 (3.5-5.0) g/dL Globulin 3.3 (2.0-3.5) g/dL Albumin/Globulin Ratio 1.2 L (1.3-2.8) Amylase 55 (10-90) U/L Lipase 19 (7-80) U/L Urine Color Urine Appearance Urine pH (5.0-8.0) Ur Specific Oral (1.001-1.035) Urine Protein (NEGATIVE) mg/dL Urine Glucose (UA) (NEGATIVE) mg/dL Urine Ketones (NEGATIVE) mg/dL Urine Occult Blood (NEGATIVE) Urine Nitrite (NEGATIVE) Urine Bilirubin (NEGATIVE) Urine Urobilinogen (<2.0) EU/dL Ur Leukocyte Esterase (NEGATIVE) Urine RBC (0-2/HPF) Urine WBC (0-5/HPF) Ur Epithelial Cells (NONE-FEW) Urine Bacteria (NEGATIVE) Urine Mucus (NONE-MOD) Ketones (NEG) 09/15/16 09/15/16 09/15/16 Range/Units 21:57 22:18 22:28 WBC (4.0-11.0) K/uL RBC (4.30-5.90) M/uL Hgb (12.0-16.0) g/dL Hct (36.0-46.0) % MCV (80.0-98.0) fL MCH (27.0-32.0) pg MCHC (31.0-37.0) g/dL RDW Std Deviation (28.0-62.0) fl RDW Coeff of Zak (11.0-15.0) % Plt Count (150-400) K/uL MPV (7.40-12.00) fL Neut % (Auto) (48.0-80.0) % Lymph % (Auto) (16.0-40.0) % Jay % (Auto) (0.0-15.0) % Eos % (Auto) (0.0-7.0) % Baso % (Auto) (0.0-1.5) % Neut # (1.4-5.7) K/uL Lymph # (0.6-2.4) K/uL Jay # (0.0-0.8) K/uL Eos # (0.0-0.7) K/uL Baso # (0.0-0.1) K/uL Nucleated RBC % /100WBC Nucleated RBCs # K/uL Sodium (136-146) mmol/L Potassium (3.5-5.1) mmol/L Chloride (98-110) mmol/L Carbon Dioxide (21-31) mmol/L BUN (6.0-23.0) mg/dL Creatinine (0.6-1.5) mg/dL Est Cr Clr Drug Dosing mL/min Estimated GFR (MDRD) ml/min Glucose (60-110) mg/dL POC Glucose 329 H (60-110) mg/dL Calcium (8.8-10.8) mg/dL Total Bilirubin (0.1-1.5) mg/dL AST (5-40) IU/L ALT (8-54) IU/L Alkaline Phosphatase (40-150) Total Protein (6.0-8.0) g/dL Albumin (3.5-5.0) g/dL Globulin (2.0-3.5) g/dL Albumin/Globulin Ratio (1.3-2.8) Amylase (10-90) U/L Lipase (7-80) U/L Urine Color YELLOW Urine Appearance SLT CLOUDY Urine pH 7.0 (5.0-8.0) Ur Specific Oral 1.010 (1.001-1.035) Urine Protein NEGATIVE (NEGATIVE) mg/dL Urine Glucose (UA) >=1000 (NEGATIVE) mg/dL Urine Ketones 40 H (NEGATIVE) mg/dL Urine Occult Blood NEGATIVE (NEGATIVE) Urine Nitrite NEGATIVE (NEGATIVE) Urine Bilirubin NEGATIVE (NEGATIVE) Urine Urobilinogen 0.2 (<2.0) EU/dL Ur Leukocyte Esterase NEGATIVE (NEGATIVE) Urine RBC 0-1 (0-2/HPF) Urine WBC 0-2 (0-5/HPF) Ur Epithelial Cells FEW (NONE-FEW) Urine Bacteria RARE (NEGATIVE) Urine Mucus LIGHT (NONE-MOD) Ketones MODERATE H (NEG) 09/16/16 Range/Units 00:01 WBC (4.0-11.0) K/uL RBC (4.30-5.90) M/uL Hgb (12.0-16.0) g/dL Hct (36.0-46.0) % MCV (80.0-98.0) fL MCH (27.0-32.0) pg MCHC (31.0-37.0) g/dL RDW Std Deviation (28.0-62.0) fl RDW Coeff of Zak (11.0-15.0) % Plt Count (150-400) K/uL MPV (7.40-12.00) fL Neut % (Auto) (48.0-80.0) % Lymph % (Auto) (16.0-40.0) % Jay % (Auto) (0.0-15.0) % Eos % (Auto) (0.0-7.0) % Baso % (Auto) (0.0-1.5) % Neut # (1.4-5.7) K/uL Lymph # (0.6-2.4) K/uL Jay # (0.0-0.8) K/uL Eos # (0.0-0.7) K/uL Baso # (0.0-0.1) K/uL Nucleated RBC % /100WBC Nucleated RBCs # K/uL Sodium (136-146) mmol/L Potassium (3.5-5.1) mmol/L Chloride (98-110) mmol/L Carbon Dioxide (21-31) mmol/L BUN (6.0-23.0) mg/dL Creatinine (0.6-1.5) mg/dL Est Cr Clr Drug Dosing mL/min Estimated GFR (MDRD) ml/min Glucose (60-110) mg/dL POC Glucose 117 H (60-110) mg/dL Calcium (8.8-10.8) mg/dL Total Bilirubin (0.1-1.5) mg/dL AST (5-40) IU/L ALT (8-54) IU/L Alkaline Phosphatase (40-150) Total Protein (6.0-8.0) g/dL Albumin (3.5-5.0) g/dL Globulin (2.0-3.5) g/dL Albumin/Globulin Ratio (1.3-2.8) Amylase (10-90) U/L Lipase (7-80) U/L Urine Color Urine Appearance Urine pH (5.0-8.0) Ur Specific Oral (1.001-1.035) Urine Protein (NEGATIVE) mg/dL Urine Glucose (UA) (NEGATIVE) mg/dL Urine Ketones (NEGATIVE) mg/dL Urine Occult Blood (NEGATIVE) Urine Nitrite (NEGATIVE) Urine Bilirubin (NEGATIVE) Urine Urobilinogen (<2.0) EU/dL Ur Leukocyte Esterase (NEGATIVE) Urine RBC (0-2/HPF) Urine WBC (0-5/HPF) Ur Epithelial Cells (NONE-FEW) Urine Bacteria (NEGATIVE) Urine Mucus (NONE-MOD) Ketones (NEG) Meds: Medications Generic Name Dose Route Start Last Admin Trade Name Freq PRN Reason Stop Dose Admin Sodium Chloride 500 mls @ 999 mls/hr 09/15/16 23:45 09/15/16 23:55 Normal Saline IV 999 mls/hr STAT PIPPA Administration Sodium Chloride 10 ml 09/15/16 21:06 Saline Flush FLUSH ASDIRECTED PRN Keep Vein Open Sodium Chloride 2.5 ml 09/15/16 21:06 Saline Flush FLUSH ASDIRECTED PRN Keep Vein Open Discontinued Medications Generic Name Dose Route Start Last Admin Trade Name Freq PRN Reason Stop Dose Admin Hydromorphone HCl 1 mg 09/15/16 21:07 09/15/16 21:43 Dilaudid IVPUSH 09/15/16 21:08 1 mg ONETIME ONE Administration Sodium Chloride 1,000 mls @ 999 mls/hr 09/15/16 21:20 09/15/16 21:23 Normal Saline IV 09/15/16 22:20 999 mls/hr STAT ONE Administration Insulin Human Regular 15 unit 09/15/16 21:08 09/15/16 21:45 Novolin R SUBCUT 09/15/16 21:09 15 units ONETIME ONE Administration Protocol Lorazepam 1 mg 09/16/16 00:06 09/16/16 00:19 Ativan PO 09/16/16 00:07 1 mg ONETIME ONE Administration Ondansetron HCl 8 mg 09/15/16 21:07 09/15/16 21:40 Zofran IVPUSH 09/15/16 21:08 8 mg ONETIME ONE Administration Ondansetron HCl 4 mg 09/15/16 23:46 09/15/16 23:56 Zofran IVPUSH 09/15/16 23:47 4 mg ONETIME ONE Administration Pantoprazole Sodium 80 mg 09/15/16 21:06 09/15/16 23:20 Protonix Iv IVPUSH 09/15/16 21:07 80 mg .BOLUS ONE Administration Pantoprazole Sodium Confirm 09/15/16 23:19 09/15/16 23:29 Protonix Iv Administered 09/15/16 23:20 Not Given Dose 40 mg .ROUTE .STK-MED ONE Departure - Departure Time of Disposition: 01:09 Disposition: Eloped 07 Condition: good Clinical Impression: Hyperglycemia, Elevated liver enzymes Forms: ED Department Discharge - My Orders Last 24 Hours: My Active Orders 09/15/16 21:06 Blood Glucose Check, Bedside [RC] ONETIME Sodium Chloride 0.9% [Saline Flush] 10 ml FLUSH ASDIRECTED PRN Sodium Chloride 0.9% [Saline Flush] 2.5 ml FLUSH ASDIRECTED PRN Saline Lock Insert [OM.PC] Stat 09/15/16 23:45 ACETAMINOPHEN [CHEM] Stat AMMONIA VENOUS [CHEM] Stat Sodium Chloride 0.9% [Normal Saline] 500 ml IV STAT 09/15/16 23:47 Blood Glucose Check, Bedside [RC] ONETIME - Assessment/Plan Last 24 Hours: My Active Orders 09/15/16 21:06 Blood Glucose Check, Bedside [RC] ONETIME Sodium Chloride 0.9% [Saline Flush] 10 ml FLUSH ASDIRECTED PRN Sodium Chloride 0.9% [Saline Flush] 2.5 ml FLUSH ASDIRECTED PRN Saline Lock Insert [OM.PC] Stat 09/15/16 23:45 ACETAMINOPHEN [CHEM] Stat AMMONIA VENOUS [CHEM] Stat Sodium Chloride 0.9% [Normal Saline] 500 ml IV STAT 09/15/16 23:47 Blood Glucose Check, Bedside [RC] ONETIME
[2016-09-15] MEDS ORDERED: Sodium Chloride 0.9% 1,000 ML IV ONE (21:20)
[2016-09-15 22:36] LABS: CHLORIDE,CL 100 mmol/L (98-110); SODIUM,NA 133 mmol/L (136-146)
[2016-09-15] MEDS ORDERED: Pantoprazole 40 MG Vial ONE (23:19)
[2016-09-15] MEDS ORDERED: Sodium Chloride 0.9% 500 ML IV SCH (23:45)
[2016-09-16] MEDS ORDERED: LORazepam 1 MG Tab PO ONE (00:06)
[2016-09-16 00:36] VITALS: BP 113/72
== END 2016-09-16 01:05 | disposition left against medical advice (07) ==
LOC: MW.ED 20:38
DX: E16.2 Hypoglycemia, unspecified (principal); R74.8 Abnormal levels of other serum enzymes; J45.909 Unspecified asthma, uncomplicated; F32.9 Major depressive disorder, single episode, unspecified; F41.9 Anxiety disorder, unspecified; E10.9 Type 1 diabetes mellitus without complications; Z90.49 Acquired absence of other specified parts of digestive tract; Z98.890 Other specified postprocedural states; Z79.4 Long term (current) use of insulin; Z79.899 Other long term (current) drug therapy; Z88.1 Allergy status to other antibiotic agents; Z88.8 Allergy status to other drugs, medicaments and biological substances; Z87.891 Personal history of nicotine dependence
CPT/HCPCS: 36415; 80053; 81001; 82009; 82140; 82150; 82962; 83690; 85025; 96361; 96372; 96374; 96375; 96376; 99284; A9270; C9113; G0480; J1170; J2405; J7040; J1815-GY

== ENCOUNTER 2016-09-16 14:38 | Emergency (ER) | payer MEDICAID ==
[2016-09-16] MEDS ORDERED: Pantoprazole 40 MG Vial IVPUSH ONE (14:42)
[2016-09-16] MEDS ORDERED: Sodium Chloride 0.9% 10 ML Syringe FLUSH PRN (14:42)
[2016-09-16] MEDS ORDERED: Sodium Chloride 0.9% 2.5 ML Syringe FLUSH PRN (14:42)
[2016-09-16] MEDS ORDERED: Ondansetron 4 MG/2 ML SDV IVPUSH ONE ×2 (14:42→16:51)
[2016-09-16] MEDS ORDERED: Sodium Chloride 0.9% 1,000 ML IV ONE (14:42)
[2016-09-16] MEDS ORDERED: HYDROmorphone 2 MG/ML Syringe IVPUSH ONE (14:49)
--- NOTE | 2016-09-16 14:56 | EDM.PDOC ---
ED HPI GENERAL MEDICAL PROBLEM - General Chief Complaint: General Stated Complaint: NAUSEA Time Seen by Provider: 09/16/16 14:44 - History of Present Illness INITIAL COMMENTS - FREE TEXT/NARRATIVE: HISTORY AND PHYSICAL: History of present illness: The patient is a 25-year-old female well-known to the ER staff and myself personally poorly controlled diabetes, multiple episodes of DKA, chronic abdominal pain, peptic ulcer disease who is here in the emergency department last evening, less than 24 hours ago, for vomiting and left upper abdominal pain. The patient states her sugar was "high high" for the last couple days and she presented with the symptoms. She was worked up with IV fluids Zofran insulin one dose of Dilaudid and a full lab component. Patient's blood sugar was in the low 500s initially and came down to 11o's and it was noted at some point the patient had removed her own IV and absconded from the ED prior to the completion of the workup. The patient was very concerned about her left upper abdominal pain and last evening to me that she had 8 episodes of vomiting and was unable to take her by mouth meds. She has Zofran ODT at home but says it wasn't working. Patient left and returns this afternoon with similar symptoms and now tells me she has had intractable vomiting since she left and the vomitus is sometimes purple in color but not coffee grounds or gross blood. She also states that now she is having bowel movements which are loose and have blood in them but not grossly bloody or black. She still has the left upper abdominal pain and it radiates diffusely and she has had intractable vomiting but no fever or chills. She also complained of chest pain which she states is from the intractable vomiting sternal radiating to her mouth. She has had no fevers or chills. She has not taken any of her oral meds cannot tolerate any by mouth. Review of systems: As per history of present illness and below otherwise all systems reviewed and negative. Past medical history: As per history of present illness and as reviewed below otherwise noncontributory. Surgical history: As per history of present illness and as reviewed below otherwise noncontributory. Social history: No reported history of drug or alcohol abuse. Family history: As per history of present illness and as reviewed below otherwise noncontributory. Physical exam: General: Well-developed thin female who is tearful and anxious in the ED and vital signs were noted by me. She is a faint smell of acetone on her breath HEENT: Atraumatic, normocephalic, pupils reactive, negative for conjunctival pallor or scleral icterus, mucous membranes tacky, throat clear, neck supple, nontender, trachea midline. Lungs: Clear to auscultation, breath sounds equal bilaterally, chest nontender. No work or breathing or sensory muscle use. There is no anterior chest wall crepitance appreciated and there is an old well-healed scar on the right anterior chest wall Heart: S1S2, regular rhythm and tachycardic rate of my evaluation, negative for clicks, rubs, or JVD. Abdomen: Soft, nondistended, bowel sounds are hypoactive and there is no tympany or percussion there is no rebound guarding or masses appreciated. There is tenderness in the left upper abdomen without any masses. Negative for masses or hepatosplenomegaly. Negative for costovertebral tenderness. Pelvis: Stable nontender. Genitourinary: Deferred. Rectal: Normal tone push and squeeze without masses or lesions. There is firm stool high in the vault which is light brown in color and Hemoccult negative Extremities: Atraumatic, negative for cords or calf pain. Neurovascular unremarkable. Neuro: Awake, alert, oriented. Cranial nerves II through XII unremarkable. Cerebellum unremarkable. Motor and sensory unremarkable throughout. Exam nonfocal. Diagnostics: EKG CBC CMP amylase lipase ammonia Tylenol INR troponin UA serum ketones chest x -ray date the skin of the abdomen and pelvis Therapeutics: IV fluids Zofran Protonix Dilaudid lactulose Patient had an Accu-Chek of 290 per EMS in route I discussed with the patient again that we'll be happy to take care of her but she cannot remove her IV on her own and she should not be absconding from the ED. She states understanding of my concern about less accidents and the possibility of a repeat when she is not getting what she would like to ED. I told her we would work her up again and reevaluate her need for admission or discharge home with outpatient care. The patient also states to me that she sees GI, Dr. Rivas, at [facility] and she had no plan with him on September 11 which she missed. She does a history of peptic ulcer disease and did have an endoscopy when she was at [facility] last time but she does not know if they did any interventions. He did not have a colonoscopy at that time. 1644: Please note the ALT and AST from yesterday's labs have improved and the bilirubin is still within normal limits. There is a slightly above normal ammonia level but the patient is mentating clearly and easily and she's been given a dose of lactulose. Patient states that after drinking the lactulose her pain is now returning and she is feeling nauseated again from drinking the liquid. We will give her another dose of Zofran. Throughout the course of her ED stay she has not had any vomiting. Has been advised that she will not receive any more pain medication and as long as we can stabilize her nausea and vomiting she can take her oral meds That Dr. Black has prescribed her. We're currently awaiting her CT scan results 1719: I. discussed all testing results with the patient including her improved ALT and AST and her small serum ketones. She doesn't have an anion gap and she has a negative CAT scan. Her hemoglobin is stable as is her troponin EKG and chest x-ray. The patient had no vomiting throughout the course of her ED visit and her Hemoccult was negative. I discussed with her discharge planning as per the history she filled a prescription at [facility] on Aug 28 for the oxymorphone #60 tablets twice a day. According to nursing when the patient was seen here on September 07 her primary care physician Dr. black gave her a new prescription for 60 tablets of the Oxymorphone which she did not fill at [facility] (I called to confirm that as they state that they did not fill it most likely because of the recent prescription on August 28.) The patient states she likely filled this at [facility] --she is currently closed and I cannot confirm this --but she absolutely confirms that she filled the prescription and had in her possession to use. This second prescription was to take one tablet every 8-12 hours. The patient states she has none of either of these prescriptions left because she has been vomiting the pills over the last few days. The numbers do not add up and I discussed this with her. I have told her that I cannot write a new prescription for these pain meds, and I do not feel comfortable writing for chronic pain meds of this strength and frequency, and that she likely would not be able to fill a prescription for these pain meds do to the 2 prior prescriptions and the short duration of time since they were filled. The patient doess not meet criteria for admission and she has no new etiology for her pain other than her chronic issues and the remainder of her lab tests are improved since her visit less than 24 hours ago. The patient is tearful and upset and I offered her one Ativan by mouth for her stress and anxiety and she states she has Zofran at home to use. I told her to call Dr. black on Sunday to see what he could do for her but that she would be discharged. Impression: Chronic abdominal pain, episodic vomiting with hyperglycemia history of same, mild elevation in ammonia etiology unclear stable asymptomatic Definitive disposition and diagnosis as appropriate pending reevaluation and review of above. left side chest area Pain Score (Numeric/FACES): 10 - Related Data Allergies Allergy/AdvReac Type Severity Reaction Status Date / Time acetaminophen [From Tylenol] Allergy Liver Verified 09/16/16 14:41 Problems amoxicillin Allergy Hives Verified 09/16/16 14:41 amoxicillin trihydrate Allergy Hives Verified 09/16/16 14:41 [From Amoxil] ibuprofen Allergy Liver Verified 09/16/16 14:41 Problems ketorolac tromethamine Allergy Hives Verified 09/16/16 14:41 [From Toradol] metoclopramide HCl Allergy Airway Verified 09/16/16 14:41 [From Reglan] Tightness tramadol Allergy Hives Verified 09/16/16 14:41 Home Meds: Home Meds Insulin Detemir [Levemir] 15 unit SUBCUT BID 03/24/16 [History] LORazepam [Ativan] 0.5 mg PO BID PRN 03/24/16 [History] Ondansetron [Ondansetron ODT] 8 mg PO QID PRN 04/19/16 [History] Insulin Aspart [Novolog Flexpen] 16 - 20 unit SUBCUT TIDMEALS 05/15/16 [History] Omeprazole 20 mg PO BIDAC 05/15/16 [History] Albuterol Sulfate [Proair Hfa] 1 puff INH Q4H PRN 06/12/16 [History] Oxymorphone HCl [Oxymorphone HCl ER] 20 mg PO Q12H 08/24/16 [History] Promethazine HCl 25 mg PO Q6H PRN 08/24/16 [History] Oseltamivir [Tamiflu] 75 mg PO DAILY #1 cap 08/28/16 [Rx] Past Medical History - Past Health History Medical/Surgical History: Denies Medical/Surgical History HEENT History: Reports: Allergic rhinitis Other HEENT History: dental abcess Cardiovascular History: Reports: None Respiratory History: Reports: Asthma Gastrointestinal History: Reports: GI bleed, Hepatitis, PUD, Other (see below) Other Gastrointestinal History: hx of C-diff, hx of Hepatitis B Genitourinary History: Reports: UTI, recurrent Other Genitourinary History: current UTI [employer] History: Reports: Other (see below) Other OB/BYN History: had miscarriage twice Musculoskeletal History: Reports: Back pain, chronic, Other (see below) Neurological History: Reports: Migraines, Seizure 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, last on was 4 months ago Psychiatric History: Reports: Anxiety, Depression Endocrine/Metabolic History: Reports: Diabetes, type I Hematologic History: Reports: Anemia Immunologic History: Reports: None Oncologic (Cancer) History: Reports: None Dermatologic History: Reports: Other (see below) Other Dermatologic History: possible infection from port removal R upper chest - Infectious Disease History Infectious Disease History: Reports: C-difficile, Chicken pox, Hepatitis B - Past Surgical History Head Surgeries/Procedures: Reports: None HEENT Surgical History: Reports: Tonsillectomy Cardiovascular Surgical History: Reports: None Respiratory Surgical History: Reports: None Other Respiratory Surgeries/Procedures: History of Asthma at 11 years old. GI Surgical History: Reports: Appendectomy, Cholecystectomy, ERCP Female Surgical History: Reports: None Endocrine Surgical History: Reports: None Neurological Surgical History: Reports: None Musculoskeletal Surgical History: Reports: None Oncologic Surgical History: Reports: None Dermatological Surgical History: Reports: None - History Comment History Comment: She has had over [address] scans in the last 4 years. Social & Family History - Family History Family Medical History: Noncontributory HEENT: Reports: Impaired vision Cardiac: Reports: Heart failure Respiratory: Reports: Asthma GI: Reports: None : Reports: Renal disease/insufficiency OBGYN: Reports: Musculoskeletal: Reports: Back pain, chronic Neurological: Reports: Seizure Psychiatric: Reports: None Endocrine/Metabolic: Reports: Diabetes, type I Hematologic: Reports: None Immunologic: Reports: None Dermatologic: Reports: None Oncologic: Reports: Breast, Cervix - Tobacco Use Smoking Status *Q: Former Smoker Years of Tobacco use: 4 Packs/Tins Daily: 0.5 Used Tobacco, but Quit: Yes Month Tobacco Last Used: 5 months Second Hand Smoke Exposure: No - Caffeine Use Caffeine Use: Reports: None - Alcohol Use Days Per Week of Alcohol Use: 0 - Recreational Drug Use Recreational Drug Use: No Drug Use in Last 12 Months: No - Living Situation & Occupation Living situation: Reports: with significant other (fiance.), with family, other (She shares a camper with her fiance and father) Occupation: unemployed ED ROS GENERAL - Review of Systems Review Of Systems: ROS reveals no pertinent complaints other than HPI. ED EXAM, GENERAL - Physical Exam Exam: See Below (See dictation) Course - Vital Signs Last Recorded V/S: Last Vital Signs Temp 37.5 C 09/16/16 14:42 Pulse 70 09/16/16 16:53 Resp 16 09/16/16 16:53 BP 108/72 09/16/16 16:53 Pulse Ox 98 09/16/16 16:53 - Orders/Labs/Meds Orders: Active Orders 24 hr Category Date Time Status Blood Glucose Check, Bedside [RC] ONETIME Care 09/16/16 16:58 Active Cardiac Monitoring [RC] . DIRECTED Care 09/16/16 14:40 Active EKG Documentation Completion [RC] STAT Care 09/16/16 14:40 Active Oxygen Therapy, ED [RC] ASDIRECTED Care 09/16/16 14:40 Active Pulse Oximetry [RC] ASDIRECTED Care 09/16/16 14:40 Active Abdomen Pelvis w Cont [CT] Stat Exams 09/16/16 15:48 Taken Chest 1V Frontal [CR] Stat Exams 09/16/16 14:42 Taken LORazepam [Ativan] Med 09/16/16 17:22 Once 1 mg PO ONETIME ONE Sodium Chloride 0.9% [Normal Saline] 500 ml Med 09/16/16 17:00 Active IV STAT Sodium Chloride 0.9% [Saline Flush] Med 09/16/16 14:42 Active 10 ml FLUSH ASDIRECTED PRN Sodium Chloride 0.9% [Saline Flush] Med 09/16/16 14:42 Active 2.5 ml FLUSH ASDIRECTED PRN Saline Lock Insert [OM.PC] Stat Oth 09/16/16 14:40 Ordered Medication Orders Sodium Chloride (Normal Saline) 500 mls @ 999 mls/hr IV STAT PIPPA Last Admin: 09/16/16 16:56 Dose: 999 mls/hr Sodium Chloride (Saline Flush) 10 ml FLUSH ASDIRECTED PRN PRN Reason: Keep Vein Open Last Admin: 09/16/16 15:02 Dose: 10 ml Sodium Chloride (Saline Flush) 2.5 ml FLUSH ASDIRECTED PRN PRN Reason: Keep Vein Open Last Admin: 09/16/16 15:01 Dose: 2.5 ml Labs: Laboratory Tests 09/16/16 09/16/16 09/16/16 Range/Units 14:57 14:57 14:57 WBC 6.26 (4.0-11.0) K/uL RBC 4.43 (4.30-5.90) M/uL Hgb 12.8 (12.0-16.0) g/dL Hct 39.8 (36.0-46.0) % MCV 89.8 (80.0-98.0) fL MCH 28.9 (27.0-32.0) pg MCHC 32.2 (31.0-37.0) g/dL RDW Std Deviation 46.9 (28.0-62.0) fl RDW Coeff of Zak 14 (11.0-15.0) % Plt Count 357 (150-400) K/uL MPV 10.00 (7.40-12.00) fL Neut % (Auto) 60.9 (48.0-80.0) % Lymph % (Auto) 31.9 (16.0-40.0) % [place] % (Auto) 5.6 (0.0-15.0) % Eos % (Auto) 1.1 (0.0-7.0) % Baso % (Auto) 0.5 (0.0-1.5) % Neut # 3.8 (1.4-5.7) K/uL Lymph # 2.0 (0.6-2.4) K/uL [place] # 0.4 (0.0-0.8) K/uL Eos # 0.1 (0.0-0.7) K/uL Baso # 0.0 (0.0-0.1) K/uL Nucleated RBC % 0.0 /100WBC Nucleated RBCs # 0 K/uL INR (0.86-1.11) Sodium 136 (136-146) mmol/L Potassium 4.5 (3.5-5.1) mmol/L Chloride 104 (98-110) mmol/L Carbon Dioxide 17 L (21-31) mmol/L BUN 18 (6.0-23.0) mg/dL Creatinine 0.8 (0.6-1.5) mg/dL Est Cr Clr Drug Dosing 76.54 mL/min Estimated GFR (MDRD) > 60.0 ml/min Glucose 297 H (60-110) mg/dL POC Glucose (60-110) mg/dL Calcium 9.8 (8.8-10.8) mg/dL Total Bilirubin 0.6 (0.1-1.5) mg/dL AST 141 H (5-40) IU/L ALT 211 H (8-54) IU/L Alkaline Phosphatase 187 H (40-150) Ammonia 82 H (14-68) UG/DL Troponin I (0.0-0.29) NG/ML Total Protein 7.9 (6.0-8.0) g/dL Albumin 4.2 (3.5-5.0) g/dL Globulin 3.7 H (2.0-3.5) g/dL Albumin/Globulin Ratio 1.1 L (1.3-2.8) Amylase 51 (10-90) U/L Lipase 17 (7-80) U/L Urine Color Urine Appearance Urine pH (5.0-8.0) Ur Specific [place] (1.001-1.035) Urine Protein (NEGATIVE) mg/dL Urine Glucose (UA) (NEGATIVE) mg/dL Urine Ketones (NEGATIVE) mg/dL Urine Occult Blood (NEGATIVE) Urine Nitrite (NEGATIVE) Urine Bilirubin (NEGATIVE) Urine Ictotest Urine Urobilinogen (<2.0) EU/dL Ur Leukocyte Esterase (NEGATIVE) Urine RBC (0-2/HPF) Urine WBC (0-5/HPF) Ur Epithelial Cells (NONE-FEW) Urine Bacteria (NEGATIVE) Urine Mucus (NONE-MOD) Acetaminophen < 3.0 ug/mL Ketones (NEG) 03/18/17 03/18/17 03/18/17 Range/Units 14:57 14:57 14:57 WBC (4.0-11.0) K/uL RBC (4.30-5.90) M/uL Hgb (12.0-16.0) g/dL Hct (36.0-46.0) % MCV (80.0-98.0) fL MCH (27.0-32.0) pg MCHC (31.0-37.0) g/dL RDW Std Deviation (28.0-62.0) fl RDW Coeff of Zak (11.0-15.0) % Plt Count (150-400) K/uL MPV (7.40-12.00) fL Neut % (Auto) (48.0-80.0) % Lymph % (Auto) (16.0-40.0) % [place] % (Auto) (0.0-15.0) % Eos % (Auto) (0.0-7.0) % Baso % (Auto) (0.0-1.5) % Neut # (1.4-5.7) K/uL Lymph # (0.6-2.4) K/uL [place] # (0.0-0.8) K/uL Eos # (0.0-0.7) K/uL Baso # (0.0-0.1) K/uL Nucleated RBC % /100WBC Nucleated RBCs # K/uL INR 0.98 (0.86-1.11) Sodium (136-146) mmol/L Potassium (3.5-5.1) mmol/L Chloride (98-110) mmol/L Carbon Dioxide (21-31) mmol/L BUN (6.0-23.0) mg/dL Creatinine (0.6-1.5) mg/dL Est Cr Clr Drug Dosing mL/min Estimated GFR (MDRD) ml/min Glucose (60-110) mg/dL POC Glucose (60-110) mg/dL Calcium (8.8-10.8) mg/dL Total Bilirubin (0.1-1.5) mg/dL AST (5-40) IU/L ALT (8-54) IU/L Alkaline Phosphatase (40-150) Ammonia (14-68) UG/DL Troponin I < 0.10 (0.0-0.29) NG/ML Total Protein (6.0-8.0) g/dL Albumin (3.5-5.0) g/dL Globulin (2.0-3.5) g/dL Albumin/Globulin Ratio (1.3-2.8) Amylase (10-90) U/L Lipase (7-80) U/L Urine Color Urine Appearance Urine pH (5.0-8.0) Ur Specific [place] (1.001-1.035) Urine Protein (NEGATIVE) mg/dL Urine Glucose (UA) (NEGATIVE) mg/dL Urine Ketones (NEGATIVE) mg/dL Urine Occult Blood (NEGATIVE) Urine Nitrite (NEGATIVE) Urine Bilirubin (NEGATIVE) Urine Ictotest Urine Urobilinogen (<2.0) EU/dL Ur Leukocyte Esterase (NEGATIVE) Urine RBC (0-2/HPF) Urine WBC (0-5/HPF) Ur Epithelial Cells (NONE-FEW) Urine Bacteria (NEGATIVE) Urine Mucus (NONE-MOD) Acetaminophen ug/mL Ketones SMALL H (NEG) 09/16/16 09/16/16 Range/Units 15:50 17:04 WBC (4.0-11.0) K/uL RBC (4.30-5.90) M/uL Hgb (12.0-16.0) g/dL Hct (36.0-46.0) % MCV (80.0-98.0) fL MCH (27.0-32.0) pg MCHC (31.0-37.0) g/dL RDW Std Deviation (28.0-62.0) fl RDW Coeff of Zak (11.0-15.0) % Plt Count (150-400) K/uL MPV (7.40-12.00) fL Neut % (Auto) (48.0-80.0) % Lymph % (Auto) (16.0-40.0) % [place] % (Auto) (0.0-15.0) % Eos % (Auto) (0.0-7.0) % Baso % (Auto) (0.0-1.5) % Neut # (1.4-5.7) K/uL Lymph # (0.6-2.4) K/uL [place] # (0.0-0.8) K/uL Eos # (0.0-0.7) K/uL Baso # (0.0-0.1) K/uL Nucleated RBC % /100WBC Nucleated RBCs # K/uL INR (0.86-1.11) Sodium (136-146) mmol/L Potassium (3.5-5.1) mmol/L Chloride (98-110) mmol/L Carbon Dioxide (21-31) mmol/L BUN (6.0-23.0) mg/dL Creatinine (0.6-1.5) mg/dL Est Cr Clr Drug Dosing mL/min Estimated GFR (MDRD) ml/min Glucose (60-110) mg/dL POC Glucose 361 H (60-110) mg/dL Calcium (8.8-10.8) mg/dL Total Bilirubin (0.1-1.5) mg/dL AST (5-40) IU/L ALT (8-54) IU/L Alkaline Phosphatase (40-150) Ammonia (14-68) UG/DL Troponin I (0.0-0.29) NG/ML Total Protein (6.0-8.0) g/dL Albumin (3.5-5.0) g/dL Globulin (2.0-3.5) g/dL Albumin/Globulin Ratio (1.3-2.8) Amylase (10-90) U/L Lipase (7-80) U/L Urine Color YELLOW Urine Appearance CLEAR Urine pH 6.0 (5.0-8.0) Ur Specific [place] 1.015 (1.001-1.035) Urine Protein NEGATIVE (NEGATIVE) mg/dL Urine Glucose (UA) >=1000 (NEGATIVE) mg/dL Urine Ketones 40 H (NEGATIVE) mg/dL Urine Occult Blood NEGATIVE (NEGATIVE) Urine Nitrite NEGATIVE (NEGATIVE) Urine Bilirubin SMALL H (NEGATIVE) Urine Ictotest NEGATIVE Urine Urobilinogen 0.2 (<2.0) EU/dL Ur Leukocyte Esterase NEGATIVE (NEGATIVE) Urine RBC 0-1 (0-2/HPF) Urine WBC 3-5 (0-5/HPF) Ur Epithelial Cells FEW (NONE-FEW) Urine Bacteria FEW (NEGATIVE) Urine Mucus LIGHT (NONE-MOD) Acetaminophen ug/mL Ketones (NEG) Meds: Medications Generic Name Dose Route Start Last Admin Trade Name Freq PRN Reason Stop Dose Admin Sodium Chloride 500 mls @ 999 mls/hr 09/16/16 17:00 09/16/16 16:56 Normal Saline IV 999 mls/hr STAT PIPPA Administration Sodium Chloride 10 ml 09/16/16 14:42 09/16/16 15:02 Saline Flush FLUSH 10 ml ASDIRECTED PRN Administration Keep Vein Open Sodium Chloride 2.5 ml 09/16/16 14:42 09/16/16 15:01 Saline Flush FLUSH 2.5 ml ASDIRECTED PRN Administration Keep Vein Open Discontinued Medications Generic Name Dose Route Start Last Admin Trade Name Freq PRN Reason Stop Dose Admin Al Hydroxide/Mg Hydroxide 15 0 ml 09/16/16 15:06 09/16/16 15:20 ml/ Lidocaine HCl 5 ml PO 09/16/16 15:07 20 each ONETIME ONE Administration Hydromorphone HCl 1 mg 09/16/16 14:49 09/16/16 15:01 Dilaudid IVPUSH 09/16/16 14:50 1 mg ONETIME ONE Administration Sodium Chloride 1,000 mls @ 999 mls/hr 09/16/16 14:42 09/16/16 15:02 Normal Saline IV 09/16/16 15:42 999 mls/hr STAT ONE Administration Iopamidol 50 ml 09/16/16 16:25 09/16/16 16:27 Isovue-370 (76%) IV 09/16/16 16:26 50 ml ONETIME ONE Administration Lactulose 10 gm 09/16/16 15:49 09/16/16 16:41 Chronulac PO 09/16/16 15:50 10 gm ONETIME ONE Administration Ondansetron HCl 4 mg 09/16/16 14:42 09/16/16 15:01 Zofran IVPUSH 09/16/16 14:43 4 mg ONETIME ONE Administration Ondansetron HCl 4 mg 09/16/16 16:51 09/16/16 16:56 Zofran IVPUSH 09/16/16 16:52 4 mg ONETIME ONE Administration Pantoprazole Sodium 80 mg 09/16/16 14:42 09/16/16 15:01 Protonix Iv IVPUSH 09/16/16 14:43 80 mg .BOLUS ONE Administration Departure - Departure Time of Disposition: 17:29 Disposition: Home, Self-Care 01 Condition: good Clinical Impression: Chronic abdominal pain Vomiting Qualifiers: Vomiting type: unspecified Vomiting Intractability: non-intractable Nausea presence: with nausea Qualified Code(s): R11.2 - Nausea with vomiting, unspecified Forms: ED Department Discharge Additional Instructions: The following information is given to patients seen in the emergency department who are being discharged to home. This information is to outline your options for follow-up care. We provide all patients seen in our emergency department with a follow-up referral. The need for follow-up, as well as the timing and circumstances, are variable depending upon the specifics of your emergency department visit. If you don't have a primary care physician on staff, we will provide you with a referral. We always advise you to contact your personal physician following an emergency department visit to inform them of the circumstance of the visit and for follow-up with them and/or the need for any referrals to a consulting specialist. The emergency department will also refer you to a specialist when appropriate. This referral assures that you have the opportunity for followup care with a specialist. All of these measure are taken in an effort to provide you with optimal care, which includes your followup. Under all circumstances we always encourage you to contact your private physician who remains a resource for coordinating your care. When calling for followup care, please make the office aware that this follow-up is from your recent emergency room visit. If for any reason you are refused follow-up, please contact the [facility] emergency department at and ask to speak to the emergency department charge nurse. [facility]- [place] [address] Please use the Zofran that you have as well as the Ativan that you have and try to rest and reduce stressors. Please call and followup in the clinic with on Sunday - My Orders Last 24 Hours: My Active Orders 09/16/16 14:40 Cardiac Monitoring [RC] . DIRECTED EKG Documentation Completion [RC] STAT Oxygen Therapy, ED [RC] ASDIRECTED Pulse Oximetry [RC] ASDIRECTED Saline Lock Insert [OM.PC] Stat 09/16/16 14:42 Chest 1V Frontal [CR] Stat Sodium Chloride 0.9% [Saline Flush] 10 ml FLUSH ASDIRECTED PRN Sodium Chloride 0.9% [Saline Flush] 2.5 ml FLUSH ASDIRECTED PRN 09/16/16 15:48 Abdomen Pelvis w Cont [CT] Stat 09/16/16 16:58 Blood Glucose Check, Bedside [RC] ONETIME 09/16/16 17:00 Sodium Chloride 0.9% [Normal Saline] 500 ml IV STAT 09/16/16 17:22 LORazepam [Ativan] 1 mg PO ONETIME ONE - Assessment/Plan Last 24 Hours: My Active Orders 09/16/16 14:40 Cardiac Monitoring [RC] . DIRECTED EKG Documentation Completion [RC] STAT Oxygen Therapy, ED [RC] ASDIRECTED Pulse Oximetry [RC] ASDIRECTED Saline Lock Insert [OM.PC] Stat 09/16/16 14:42 Chest 1V Frontal [CR] Stat Sodium Chloride 0.9% [Saline Flush] 10 ml FLUSH ASDIRECTED PRN Sodium Chloride 0.9% [Saline Flush] 2.5 ml FLUSH ASDIRECTED PRN 09/16/16 15:48 Abdomen Pelvis w Cont [CT] Stat 09/16/16 16:58 Blood Glucose Check, Bedside [RC] ONETIME 09/16/16 17:00 Sodium Chloride 0.9% [Normal Saline] 500 ml IV STAT 09/16/16 17:22 LORazepam [Ativan] 1 mg PO ONETIME ONE
[2016-09-16] MEDS ORDERED: Alum Hydrox/Mag Hydrox/Simeth 15 ML, Lidocaine 2% 5 ML PO ONE ×2 (15:06)
[2016-09-16 15:27] LABS: CHLORIDE,CL 104 mmol/L (98-110); SODIUM,NA 136 mmol/L (136-146)
[2016-09-16 15:31] LABS: ACETAMINOPHEN < 3.0 ug/mL
[2016-09-16] MEDS ORDERED: Lactulose Soln 10 GM/15 ML 15 ML UD Cup PO ONE (15:49)
[2016-09-16] MEDS ORDERED: Iopamidol 755 MG/ML 50 ML Bottle IV ONE (16:25)
[2016-09-16] MEDS ORDERED: Sodium Chloride 0.9% 500 ML IV SCH (17:00)
[2016-09-16] MEDS ORDERED: LORazepam 1 MG Tab PO ONE (17:22)
[2016-09-16 18:44] VITALS: BP 110/76
--- NOTE | 2016-09-18 17:24 | CR ---
EXAM DATE: 09/16/16 PATIENT'S AGE: 25 Patient: ALEXSANDER HINKLE Facility: [place], [place] Site . Site : 1990 Study: XRay Chest [id number]/18/2017 3:10:12 PM Ordering Physician: Doctor Ang Final Report: INDICATION: Chest pain, shortness of breath. TECHNIQUE: Chest 1 view. COMPARISON: Chest x-ray 08/24/2016. FINDINGS: Cardiovascular and mediastinum: Heart size and vasculature are normal in caliber and appearance. Mediastinum is within normal limits. Lungs and pleural space: Lungs are clear. No sign of infiltrate or mass. No sign of pleural effusion. No pneumothorax. Bones and soft tissues: No significant findings. IMPRESSION: Unremarkable chest. Dictated by Prakash Jones MD @ 09/16/2016 3:35:16 PM Dictated by: Prakash Jones MD @ 09/16/2016 15:35:25 (Electronic Signature) Report Signed by Proxy and Original Signed Document filed in the Medical Record. [facility]
--- NOTE | 2016-09-18 17:48 | CT ---
EXAM DATE: 09/16/16 PATIENT'S AGE: 25 Patient: ALEXSANDER HINKLE Facility: [place], [place] Site . Site : 1990 Study: CT Abdomen/Pelvis W CONT [id number]/18/2017 4:28:52 PM Ordering Physician: Elisa Hammond Final Report: HISTORY: Left-sided chest pain, nausea and diarrhea with blood in stool. Comparison : 02/22/2016. Technique : Axial images were obtained through the abdomen and pelvis following 50 cc of Isovue 370 intravenous contrast. Findings : The lung bases are clear. The liver, spleen, pancreas, and adrenal glands are within normal. Cholecystectomy. The tiny renal stones. No hydronephrosis. The bowel is normal in caliber. No lymphadenopathy or ascites. Appendectomy. Impression: Nephrolithiasis. No hydronephrosis. No specific abnormality to explain the patient`s symptoms. Dictated by Idania Alvarez MD @ Sep 16 2016 4:53PM (Electronic Signature) Report Signed by Proxy and Original Signed Document filed in the Medical Record. [facility]
== END 2016-09-16 17:55 | disposition home or self-care (01) ==
LOC: MW.ED 14:38
DX: R11.2 Nausea with vomiting, unspecified (principal); R10.12 Left upper quadrant pain; G89.29 Other chronic pain; E10.65 Type 1 diabetes mellitus with hyperglycemia; F41.8 Other specified anxiety disorders; J45.909 Unspecified asthma, uncomplicated; Z90.49 Acquired absence of other specified parts of digestive tract; Z79.899 Other long term (current) drug therapy; Z88.1 Allergy status to other antibiotic agents; Z88.5 Allergy status to narcotic agent; Z88.6 Allergy status to analgesic agent; Z87.891 Personal history of nicotine dependence; Z98.890 Other specified postprocedural states
CPT/HCPCS: 36415; 71010; 74177; 80053; 81001; 82009; 82140; 82150; 82962; 83690; 84484; 85025; 85610; 93005; 96361; 96374; 96375; 96376; 99285; A9270; C9113; G0480; J1170; J2405; J7040; Q9967; 99284

== ENCOUNTER 2016-09-20 17:10 | Emergency (ER) | payer MEDICAID ==
[2016-09-20] MEDS ORDERED: Sodium Chloride 0.9% 1,000 ML IV ONE (17:24)
[2016-09-20] MEDS ORDERED: Ondansetron 4 MG/2 ML SDV IVPUSH ONE (17:24)
[2016-09-20] MEDS ORDERED: Pantoprazole 40 MG Vial IVPUSH ONE (17:25)
[2016-09-20] MEDS ORDERED: Sodium Chloride 0.9% 10 ML Syringe FLUSH PRN (17:25)
[2016-09-20] MEDS ORDERED: Sodium Chloride 0.9% 2.5 ML Syringe FLUSH PRN (17:25)
--- NOTE | 2016-09-20 17:32 | EDM.PDOC ---
ED HPI DIABETIC EMERGENCY - General Chief Complaint: Diabetic Complaint Stated Complaint: DKA Time Seen by Provider: 09/20/16 17:16 - History of Present Illness INITIAL COMMENTS - FREE TEXT/NARRATIVE: HISTORY AND PHYSICAL: History of present illness: The patient is a 25 y/o female is very well-known to our ER for multiple ER visits and admissions for DKA who presents via ambulance from [facility] for elevated blood sugar and vomiting and lower abdominal, "ovary" pain. I saw the patient in the ER 5 days ago as well as 4 days ago and she was admitted to [facility] for several days and just discharged yesterday for same. On her ER visits with me she had her typical presentation of vomiting upper abdominal pain and elevated blood sugar all of which improved after IV fluids Zofran one dose of Dilaudid Protonix. On her first visit in the ER with me she absconded and on the second she was discharged as she did not meet criteria for admission. She is currently being managed by Dr. Black of family practice who has been managing her pain medication and when I last saw her on Sunday, 4 days ago, and she said that she had no more of her pain meds despite that the numbers did not make sense and her 2 prescriptions would have left her with multiple pain meds to take. She stated at that time that she was vomiting the pain pills up and had none left. I Advised her to follow up with Dr. Black and prior to making that appointment she went and was admitted to [facility] as euglycemic DKA. She was given pain meds there and a prescription for home which she states she filled and has been taking. She says that since she was discharged she hasn't resumed vomiting although was not black or coffee- ground and her abdominal pain has returned. On my evaluation she mostly complains of diffuse and upper abdomen pain which is where it were usually is. Please see below note regarding Dr. Magana evaluation of her Review of systems: As per history of present illness and below otherwise all systems reviewed and negative. Past medical history: As per history of present illness and as reviewed below otherwise noncontributory. Surgical history: As per history of present illness and as reviewed below otherwise noncontributory. Social history: No reported history of drug or alcohol abuse. Family history: As per history of present illness and as reviewed below otherwise noncontributory. Physical exam: General: Well-developed thin female who is somewhat anxious but nontoxic appearing and benefits of a noted by me HEENT: Atraumatic, normocephalic, pupils reactive, negative for conjunctival pallor or scleral icterus, mucous membranes tacky, throat clear, neck supple, nontender, trachea midline. Lungs: Clear to auscultation, breath sounds equal bilaterally, chest nontender. Heart: S1S2, regular rhythm and tachycardic on my evaluation, negative for clicks, rubs, or JVD. Abdomen: Soft, nondistended, there is some mild diffuse tenderness but it doesn' t seem to localize on my examination. Bowel sounds are active and there is no rebound guarding or masses appreciated and no tympany and percussion. Negative for masses or hepatosplenomegaly. Negative for costovertebral tenderness. Pelvis: Stable nontender. Genitourinary: Deferred. Rectal: Deferred. Extremities: Atraumatic, negative for cords or calf pain. Neurovascular unremarkable. Neuro: Awake, alert, oriented. Cranial nerves II through XII unremarkable. Cerebellum unremarkable. Motor and sensory unremarkable throughout. Exam nonfocal. Diagnostics: CBC CMP amylase lipase UA serum ketones ammonia level UCG UDS Pelvic US Therapeutics: IV fluids Protonix and Zofran, Dilaudid insulin Dr. Black was here in the ER and has seen and evaluated the patient. On his evaluation the patient has no abdominal pain on palpation but she seems to be focusing and stating to him that her pain is more in the lower abdomen and she' s concerned about her ovaries. She did not express this to me. We will go ahead and add to her testing a pelvic ultrasound and we will continue to manage her blood sugar nausea and vomiting with hydration and meds as above. Please note that the patient is a very difficult IV stick and her initial IV became nonfunctional. She now has an IV in place and is getting her meds and IV fluids. All of her labs have come back and have been reviewed by me with Dr. Black at 1913. He has written her prescription for home for extended release morphine sulfate if the pelvic ultrasound is negative. He is aware of her blood sugar and states that she has stools at home to manage that as long as she is not in ketoacidosis which she is not. I've given her a dose of insulin and we will recheck her Accu-Chek when she returns from ultrasound. The patient told her Dr. Black that she feels that the oxymorphone and OxyContin that she has used in the last week or so has made her have more nausea and vomiting and that she would like to return to the morphine ER if she had been on in the past as it may cause less nausea and vomiting. He will facilitate this and to write the prescription. 1920: The patient has just gone to ultrasound and that will be followed up in the patient will be dispositioned appropriately pending that result Impression: Chronic abdominal pain, hyperglycemia with history of diabetes and poor compliance with medications Definitive disposition and diagnosis as appropriate pending reevaluation and review of above. - Related Data Allergies/ADRs: Allergies Allergy/AdvReac Type Severity Reaction Status Date / Time acetaminophen [From Tylenol] Allergy Liver Verified 09/20/16 17:34 Problems amoxicillin Allergy Hives Verified 09/20/16 17:34 amoxicillin trihydrate Allergy Hives Verified 09/20/16 17:34 [From Amoxil] ibuprofen Allergy Liver Verified 09/20/16 17:34 Problems ketorolac tromethamine Allergy Hives Verified 09/20/16 17:34 [From Toradol] metoclopramide HCl Allergy Airway Verified 09/20/16 17:34 [From Reglan] Tightness tramadol Allergy Hives Verified 09/20/16 17:34 Home Meds: Home Meds Insulin Detemir [Levemir] 15 unit SUBCUT BID 03/24/16 [History] LORazepam [Ativan] 0.5 mg PO BID PRN 03/24/16 [History] Ondansetron [Ondansetron ODT] 8 mg PO QID PRN 04/19/16 [History] Insulin Aspart [Novolog Flexpen] 16 - 20 unit SUBCUT TIDMEALS 05/15/16 [History] Omeprazole 20 mg PO BIDAC 05/15/16 [History] Albuterol Sulfate [Proair Hfa] 1 puff INH Q4H PRN 06/12/16 [History] Oxymorphone HCl [Oxymorphone HCl ER] 10 mg PO ASDIRECTED 08/24/16 [History] Promethazine HCl 25 mg PO Q6H PRN 08/24/16 [History] Past Medical History - Past Health History Medical/Surgical History: Denies Medical/Surgical History HEENT History: Reports: Allergic rhinitis Other HEENT History: dental abcess Cardiovascular History: Reports: None Respiratory History: Reports: Asthma Gastrointestinal History: Reports: GI bleed, Hepatitis, PUD, Other (see below) Other Gastrointestinal History: hx of C-diff, hx of Hepatitis B Genitourinary History: Reports: UTI, recurrent Other Genitourinary History: current UTI [employer] History: Reports: Other (see below) Other OB/BYN History: had miscarriage twice Musculoskeletal History: Reports: Back pain, chronic, Other (see below) Neurological History: Reports: Migraines, Seizure 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, last on was 4 months ago Psychiatric History: Reports: Anxiety, Depression Endocrine/Metabolic History: Reports: Diabetes, type I Hematologic History: Reports: Anemia Immunologic History: Reports: None Oncologic (Cancer) History: Reports: None Dermatologic History: Reports: Other (see below) Other Dermatologic History: possible infection from port removal R upper chest - Infectious Disease History Infectious Disease History: Reports: C-difficile, Chicken pox, Hepatitis B - Past Surgical History Head Surgeries/Procedures: Reports: None HEENT Surgical History: Reports: Tonsillectomy Cardiovascular Surgical History: Reports: None Respiratory Surgical History: Reports: None Other Respiratory Surgeries/Procedures: History of Asthma at 11 years old. GI Surgical History: Reports: Appendectomy, Cholecystectomy, ERCP Female Surgical History: Reports: None Endocrine Surgical History: Reports: None Neurological Surgical History: Reports: None Musculoskeletal Surgical History: Reports: None Oncologic Surgical History: Reports: None Dermatological Surgical History: Reports: None - History Comment History Comment: She has had over [address] scans in the last 4 years. Social & Family History - Family History Family Medical History: Noncontributory HEENT: Reports: Impaired vision Cardiac: Reports: Heart failure Respiratory: Reports: Asthma GI: Reports: None : Reports: Renal disease/insufficiency OBGYN: Reports: Musculoskeletal: Reports: Back pain, chronic Neurological: Reports: Seizure Psychiatric: Reports: None Endocrine/Metabolic: Reports: Diabetes, type I Hematologic: Reports: None Immunologic: Reports: None Dermatologic: Reports: None Oncologic: Reports: Breast, Cervix - Tobacco Use Smoking Status *Q: Former Smoker Years of Tobacco use: 4 Packs/Tins Daily: 0.5 Used Tobacco, but Quit: Yes Month Tobacco Last Used: 5 months Second Hand Smoke Exposure: No - Caffeine Use Caffeine Use: Reports: None - Alcohol Use Days Per Week of Alcohol Use: 0 - Recreational Drug Use Recreational Drug Use: No Drug Use in Last 12 Months: No - Living Situation & Occupation Living situation: Reports: with significant other (fiance.), with family, other (She shares a camper with her fiance and father) Occupation: unemployed ED ROS GENERAL - Review of Systems Review Of Systems: ROS reveals no pertinent complaints other than HPI. ED EXAM GENERAL NO PERIP PULSE - Physical Exam Exam: See Below (see dictation) Course - Vital Signs Last Recorded V/S: Last Vital Signs Temp 37.3 C 09/20/16 21:22 Pulse 123 H 09/20/16 21:22 Resp 16 09/20/16 21:22 BP 105/76 09/20/16 21:22 Pulse Ox 97 09/20/16 21:22 - Orders/Labs/Meds Orders: Active Orders 24 hr Category Date Time Status Blood Glucose Check, Bedside [RC] ONETIME Care 09/20/16 17:25 Active Pelvis Non OB Comp [US] Stat Exams 09/20/16 17:32 Taken Saline Lock Insert [OM.PC] Stat Oth 09/20/16 17:24 Ordered Labs: Laboratory Tests 09/20/16 09/20/16 09/20/16 Range/Units 17:45 17:45 17:45 WBC 7.64 (4.0-11.0) K/uL RBC 4.55 (4.30-5.90) M/uL Hgb 13.2 (12.0-16.0) g/dL Hct 40.8 (36.0-46.0) % MCV 89.7 (80.0-98.0) fL MCH 29.0 (27.0-32.0) pg MCHC 32.4 (31.0-37.0) g/dL RDW Std Deviation 46.4 (28.0-62.0) fl RDW Coeff of Zak 14 (11.0-15.0) % Plt Count 338 (150-400) K/uL MPV 10.20 (7.40-12.00) fL Neut % (Auto) 69.9 (48.0-80.0) % Lymph % (Auto) 24.5 (16.0-40.0) % [facility] % (Auto) 4.3 (0.0-15.0) % Eos % (Auto) 0.8 (0.0-7.0) % Baso % (Auto) 0.5 (0.0-1.5) % Neut # (Auto) 5.3 (1.4-5.7) K/uL Lymph # (Auto) 1.9 (0.6-2.4) K/uL [facility] # (Auto) 0.3 (0.0-0.8) K/uL Eos # (Auto) 0.1 (0.0-0.7) K/uL Baso # (Auto) 0.0 (0.0-0.1) K/uL Nucleated RBC % 0.0 /100WBC Nucleated RBCs # 0 K/uL Sodium 137 (136-146) mmol/L Potassium 4.7 (3.5-5.1) mmol/L Chloride 99 (98-110) mmol/L Carbon Dioxide 23 (21-31) mmol/L BUN 21 (6.0-23.0) mg/dL Creatinine 0.9 (0.6-1.5) mg/dL Est Cr Clr Drug Dosing 64.44 mL/min Estimated GFR (MDRD) > 60.0 ml/min Glucose 471 H (60-110) mg/dL POC Glucose (60-110) mg/dL Calcium 10.5 (8.8-10.8) mg/dL Total Bilirubin 0.5 (0.1-1.5) mg/dL AST 110 H (5-40) IU/L ALT 158 H (8-54) IU/L Alkaline Phosphatase 168 H (40-150) Ammonia 72 H (14-68) UG/DL Total Protein 8.3 H (6.0-8.0) g/dL Albumin 4.4 (3.5-5.0) g/dL Globulin 3.9 H (2.0-3.5) g/dL Albumin/Globulin Ratio 1.1 L (1.3-2.8) Amylase 71 (10-90) U/L Lipase 10 (7-80) U/L Urine Color Urine Appearance Urine pH (5.0-8.0) Ur Specific Axis (1.001-1.035) Urine Protein (NEGATIVE) mg/dL Urine Glucose (UA) (NEGATIVE) mg/dL Urine Ketones (NEGATIVE) mg/dL Urine Occult Blood (NEGATIVE) Urine Nitrite (NEGATIVE) Urine Bilirubin (NEGATIVE) Urine Urobilinogen (<2.0) EU/dL Ur Leukocyte Esterase (NEGATIVE) Urine RBC (0-2/HPF) Urine WBC (0-5/HPF) Ur Epithelial Cells (NONE-FEW) Urine Bacteria (NEGATIVE) Urine HCG, Qual (NEGATIVE) Urine Opiates Screen (NEGATIVE) Ur Oxycodone Screen (NEGATIVE) Urine Methadone Screen (NEGATIVE) Acetaminophen ug/mL Ur Barbiturates Screen (NEGATIVE) Ur Phencyclidine Scrn (NEGATIVE) Ur Amphetamine Screen (NEGATIVE) U Methamphetamines Scrn (NEGATIVE) U Benzodiazepines Scrn (NEGATIVE) U Cocaine Metab Screen (NEGATIVE) U Marijuana (THC) Screen (NEGATIVE) Ketones (NEG) 09/20/16 09/20/16 09/20/16 Range/Units 17:45 17:45 17:45 WBC (4.0-11.0) K/uL RBC (4.30-5.90) M/uL Hgb (12.0-16.0) g/dL Hct (36.0-46.0) % MCV (80.0-98.0) fL MCH (27.0-32.0) pg MCHC (31.0-37.0) g/dL RDW Std Deviation (28.0-62.0) fl RDW Coeff of Zak (11.0-15.0) % Plt Count (150-400) K/uL MPV (7.40-12.00) fL Neut % (Auto) (48.0-80.0) % Lymph % (Auto) (16.0-40.0) % [facility] % (Auto) (0.0-15.0) % Eos % (Auto) (0.0-7.0) % Baso % (Auto) (0.0-1.5) % Neut # (Auto) (1.4-5.7) K/uL Lymph # (Auto) (0.6-2.4) K/uL [facility] # (Auto) (0.0-0.8) K/uL Eos # (Auto) (0.0-0.7) K/uL Baso # (Auto) (0.0-0.1) K/uL Nucleated RBC % /100WBC Nucleated RBCs # K/uL Sodium (136-146) mmol/L Potassium (3.5-5.1) mmol/L Chloride (98-110) mmol/L Carbon Dioxide (21-31) mmol/L BUN (6.0-23.0) mg/dL Creatinine (0.6-1.5) mg/dL Est Cr Clr Drug Dosing mL/min Estimated GFR (MDRD) ml/min Glucose (60-110) mg/dL POC Glucose (60-110) mg/dL Calcium (8.8-10.8) mg/dL Total Bilirubin (0.1-1.5) mg/dL AST (5-40) IU/L ALT (8-54) IU/L Alkaline Phosphatase (40-150) Ammonia (14-68) UG/DL Total Protein (6.0-8.0) g/dL Albumin (3.5-5.0) g/dL Globulin (2.0-3.5) g/dL Albumin/Globulin Ratio (1.3-2.8) Amylase (10-90) U/L Lipase (7-80) U/L Urine Color Urine Appearance Urine pH (5.0-8.0) Ur Specific Axis (1.001-1.035) Urine Protein (NEGATIVE) mg/dL Urine Glucose (UA) (NEGATIVE) mg/dL Urine Ketones (NEGATIVE) mg/dL Urine Occult Blood (NEGATIVE) Urine Nitrite (NEGATIVE) Urine Bilirubin (NEGATIVE) Urine Urobilinogen (<2.0) EU/dL Ur Leukocyte Esterase (NEGATIVE) Urine RBC (0-2/HPF) Urine WBC (0-5/HPF) Ur Epithelial Cells (NONE-FEW) Urine Bacteria (NEGATIVE) Urine HCG, Qual (NEGATIVE) Urine Opiates Screen NEGATIVE (NEGATIVE) Ur Oxycodone Screen POSITIVE (NEGATIVE) Urine Methadone Screen NEGATIVE (NEGATIVE) Acetaminophen < 3.0 ug/mL Ur Barbiturates Screen NEGATIVE (NEGATIVE) Ur Phencyclidine Scrn NEGATIVE (NEGATIVE) Ur Amphetamine Screen NEGATIVE (NEGATIVE) U Methamphetamines Scrn NEGATIVE (NEGATIVE) U Benzodiazepines Scrn NEGATIVE (NEGATIVE) U Cocaine Metab Screen NEGATIVE (NEGATIVE) U Marijuana (THC) Screen NEGATIVE (NEGATIVE) Ketones NEGATIVE (NEG) 09/20/16 09/20/16 09/20/16 Range/Units 17:45 17:45 18:44 WBC (4.0-11.0) K/uL RBC (4.30-5.90) M/uL Hgb (12.0-16.0) g/dL Hct (36.0-46.0) % MCV (80.0-98.0) fL MCH (27.0-32.0) pg MCHC (31.0-37.0) g/dL RDW Std Deviation (28.0-62.0) fl RDW Coeff of Zak (11.0-15.0) % Plt Count (150-400) K/uL MPV (7.40-12.00) fL Neut % (Auto) (48.0-80.0) % Lymph % (Auto) (16.0-40.0) % [facility] % (Auto) (0.0-15.0) % Eos % (Auto) (0.0-7.0) % Baso % (Auto) (0.0-1.5) % Neut # (Auto) (1.4-5.7) K/uL Lymph # (Auto) (0.6-2.4) K/uL [facility] # (Auto) (0.0-0.8) K/uL Eos # (Auto) (0.0-0.7) K/uL Baso # (Auto) (0.0-0.1) K/uL Nucleated RBC % /100WBC Nucleated RBCs # K/uL Sodium (136-146) mmol/L Potassium (3.5-5.1) mmol/L Chloride (98-110) mmol/L Carbon Dioxide (21-31) mmol/L BUN (6.0-23.0) mg/dL Creatinine (0.6-1.5) mg/dL Est Cr Clr Drug Dosing mL/min Estimated GFR (MDRD) ml/min Glucose (60-110) mg/dL POC Glucose 340 H (60-110) mg/dL Calcium (8.8-10.8) mg/dL Total Bilirubin (0.1-1.5) mg/dL AST (5-40) IU/L ALT (8-54) IU/L Alkaline Phosphatase (40-150) Ammonia (14-68) UG/DL Total Protein (6.0-8.0) g/dL Albumin (3.5-5.0) g/dL Globulin (2.0-3.5) g/dL Albumin/Globulin Ratio (1.3-2.8) Amylase (10-90) U/L Lipase (7-80) U/L Urine Color YELLOW Urine Appearance CLEAR Urine pH 7.5 (5.0-8.0) Ur Specific Axis 1.010 (1.001-1.035) Urine Protein NEGATIVE (NEGATIVE) mg/dL Urine Glucose (UA) >=1000 (NEGATIVE) mg/dL Urine Ketones NEGATIVE (NEGATIVE) mg/dL Urine Occult Blood NEGATIVE (NEGATIVE) Urine Nitrite NEGATIVE (NEGATIVE) Urine Bilirubin NEGATIVE (NEGATIVE) Urine Urobilinogen 0.2 (<2.0) EU/dL Ur Leukocyte Esterase NEGATIVE (NEGATIVE) Urine RBC 0-1 (0-2/HPF) Urine WBC 0-3 (0-5/HPF) Ur Epithelial Cells FEW (NONE-FEW) Urine Bacteria FEW (NEGATIVE) Urine HCG, Qual NEGATIVE (NEGATIVE) Urine Opiates Screen (NEGATIVE) Ur Oxycodone Screen (NEGATIVE) Urine Methadone Screen (NEGATIVE) Acetaminophen ug/mL Ur Barbiturates Screen (NEGATIVE) Ur Phencyclidine Scrn (NEGATIVE) Ur Amphetamine Screen (NEGATIVE) U Methamphetamines Scrn (NEGATIVE) U Benzodiazepines Scrn (NEGATIVE) U Cocaine Metab Screen (NEGATIVE) U Marijuana (THC) Screen (NEGATIVE) Ketones (NEG) 09/20/16 09/20/16 Range/Units 19:17 20:48 WBC (4.0-11.0) K/uL RBC (4.30-5.90) M/uL Hgb (12.0-16.0) g/dL Hct (36.0-46.0) % MCV (80.0-98.0) fL MCH (27.0-32.0) pg MCHC (31.0-37.0) g/dL RDW Std Deviation (28.0-62.0) fl RDW Coeff of Zak (11.0-15.0) % Plt Count (150-400) K/uL MPV (7.40-12.00) fL Neut % (Auto) (48.0-80.0) % Lymph % (Auto) (16.0-40.0) % [facility] % (Auto) (0.0-15.0) % Eos % (Auto) (0.0-7.0) % Baso % (Auto) (0.0-1.5) % Neut # (Auto) (1.4-5.7) K/uL Lymph # (Auto) (0.6-2.4) K/uL [facility] # (Auto) (0.0-0.8) K/uL Eos # (Auto) (0.0-0.7) K/uL Baso # (Auto) (0.0-0.1) K/uL Nucleated RBC % /100WBC Nucleated RBCs # K/uL Sodium (136-146) mmol/L Potassium (3.5-5.1) mmol/L Chloride (98-110) mmol/L Carbon Dioxide (21-31) mmol/L BUN (6.0-23.0) mg/dL Creatinine (0.6-1.5) mg/dL Est Cr Clr Drug Dosing mL/min Estimated GFR (MDRD) ml/min Glucose (60-110) mg/dL POC Glucose 309 H 152 H (60-110) mg/dL Calcium (8.8-10.8) mg/dL Total Bilirubin (0.1-1.5) mg/dL AST (5-40) IU/L ALT (8-54) IU/L Alkaline Phosphatase (40-150) Ammonia (14-68) UG/DL Total Protein (6.0-8.0) g/dL Albumin (3.5-5.0) g/dL Globulin (2.0-3.5) g/dL Albumin/Globulin Ratio (1.3-2.8) Amylase (10-90) U/L Lipase (7-80) U/L Urine Color Urine Appearance Urine pH (5.0-8.0) Ur Specific Axis (1.001-1.035) Urine Protein (NEGATIVE) mg/dL Urine Glucose (UA) (NEGATIVE) mg/dL Urine Ketones (NEGATIVE) mg/dL Urine Occult Blood (NEGATIVE) Urine Nitrite (NEGATIVE) Urine Bilirubin (NEGATIVE) Urine Urobilinogen (<2.0) EU/dL Ur Leukocyte Esterase (NEGATIVE) Urine RBC (0-2/HPF) Urine WBC (0-5/HPF) Ur Epithelial Cells (NONE-FEW) Urine Bacteria (NEGATIVE) Urine HCG, Qual (NEGATIVE) Urine Opiates Screen (NEGATIVE) Ur Oxycodone Screen (NEGATIVE) Urine Methadone Screen (NEGATIVE) Acetaminophen ug/mL Ur Barbiturates Screen (NEGATIVE) Ur Phencyclidine Scrn (NEGATIVE) Ur Amphetamine Screen (NEGATIVE) U Methamphetamines Scrn (NEGATIVE) U Benzodiazepines Scrn (NEGATIVE) U Cocaine Metab Screen (NEGATIVE) U Marijuana (THC) Screen (NEGATIVE) Ketones (NEG) Meds: Medications Discontinued Medications Generic Name Dose Route Start Last Admin Trade Name Freq PRN Reason Stop Dose Admin Hydromorphone HCl 1 mg 09/20/16 17:35 09/20/16 18:55 Dilaudid IVPUSH 09/20/16 17:36 1 mg ONETIME ONE Administration Sodium Chloride 1,000 mls @ 999 mls/hr 09/20/16 17:24 09/20/16 18:53 Normal Saline IV 09/20/16 18:24 250 mls/hr STAT ONE Infusion Insulin Human Regular 15 unit 09/20/16 17:40 09/20/16 18:45 Novolin R IM 09/20/16 17:41 15 unit ONETIME ONE Administration Protocol Ondansetron HCl 4 mg 09/20/16 17:24 09/20/16 18:52 Zofran IVPUSH 09/20/16 17:25 4 mg ONETIME ONE Administration Pantoprazole Sodium 80 mg 09/20/16 17:25 09/20/16 19:00 Protonix Iv IVPUSH 09/20/16 17:26 80 mg .BOLUS ONE Administration Sodium Chloride 10 ml 09/20/16 17:25 Saline Flush FLUSH ASDIRECTED PRN Keep Vein Open Sodium Chloride 2.5 ml 09/20/16 17:25 Saline Flush FLUSH ASDIRECTED PRN Keep Vein Open Departure - Departure Time of Disposition: 20:30 Disposition: Home, Self-Care 01 Condition: good Clinical Impression: Hyperglycemia due to type 1 diabetes mellitus, Chronic abdominal pain Instructions: Hyperglycemia, [id number], Nausea and Vomiting, Adult Referrals: PCP,None [Primary Care Provider] - Forms: ED Department Discharge Additional Instructions: The following information is given to patients seen in the emergency department who are being discharged to home. This information is to outline your options for follow-up care. We provide all patients seen in our emergency department with a follow-up referral. The need for follow-up, as well as the timing and circumstances, are variable depending upon the specifics of your emergency department visit. If you don't have a primary care physician on staff, we will provide you with a referral. We always advise you to contact your personal physician following an emergency department visit to inform them of the circumstance of the visit and for follow-up with them and/or the need for any referrals to a consulting specialist. The emergency department will also refer you to a specialist when appropriate. This referral assures that you have the opportunity for followup care with a specialist. All of these measure are taken in an effort to provide you with optimal care, which includes your followup. Under all circumstances we always encourage you to contact your private physician who remains a resource for coordinating your care. When calling for followup care, please make the office aware that this follow-up is from your recent emergency room visit. If for any reason you are refused follow-up, please contact the [facility] emergency department at and ask to speak to the emergency department charge nurse. [facility] Primary care- [place] [address] Continue to monitor your blood sugar and treat appropriately and also uses Zofran and ankles you have been given for symptoms of nausea vomiting and pain. Please followup with as you have been scheduled and keep this appointment. Return to ER as needed and as discussed - My Orders Last 24 Hours: My Active Orders 09/20/16 17:24 Saline Lock Insert [OM.PC] Stat 09/20/16 17:25 Blood Glucose Check, Bedside [RC] ONETIME 09/20/16 17:32 Pelvis Non OB Comp [US] Stat - Assessment/Plan Last 24 Hours: My Active Orders 09/20/16 17:24 Saline Lock Insert [OM.PC] Stat 09/20/16 17:25 Blood Glucose Check, Bedside [RC] ONETIME 09/20/16 17:32 Pelvis Non OB Comp [US] Stat
[2016-09-20] MEDS ORDERED: HYDROmorphone 2 MG/ML Syringe IVPUSH ONE (17:35)
[2016-09-20] MEDS ORDERED: Insulin Regular, Human 100 Units/ML 10 ML Vial IM ONE (17:40)
[2016-09-20 18:20] LABS: CHLORIDE,CL 99 mmol/L (98-110); SODIUM,NA 137 mmol/L (136-146)
[2016-09-20 21:23] VITALS: BP 105/76
--- NOTE | 2016-09-21 13:37 | US ---
EXAM DATE: 09/20/16 PATIENT'S AGE: 25 Patient: ALEXSANDER HINKLE Facility: [place], [place] Site . Site : 1990 Study: US Pelvis [id number] 8:21:35 PM Ordering Physician: Elisa Hammond Final Report: INDICATION: Bilateral pelvic pain TECHNIQUE: Ultrasound pelvis transvaginal only. COMPARISON: None FINDINGS: Uterus: 6.3 centimeters x 3.5 centimeters x 2.3 centimeter. Normal echotexture of the myometrium. No masses. Endometrium: The endometrium measures 4 mm in thickness. No sign of endometrial mass or fluid. Right ovary: 2.8 centimeters x 1.6 centimeters x 1.4 centimeters. No ovarian or adnexal masses. Normal arterial and venous blood flow. Left ovary: 2.9 centimeters x 1.0 centimeters x 4.2 centimeters. No ovarian or adnexal masses. Normal arterial and venous blood flow. Cul-de-sac: Small amount of free fluid adjacent to the uterus. IMPRESSION: Small amount of free fluid adjacent to the uterus otherwise unremarkable pelvic ultrasound. Dictated by Sal Hickey MD @ 09/20/2016 8:24:45 PM Dictated by: Sal Hickey MD @ 09/20/2016 20:24:59 (Electronic Signature) Report Signed by Proxy and Original Signed Document filed in the Medical Record. MTDD
== END 2016-09-20 21:18 | disposition home or self-care (01) ==
LOC: MW.ED 17:10
DX: R10.9 Unspecified abdominal pain (principal); G89.29 Other chronic pain; E10.65 Type 1 diabetes mellitus with hyperglycemia; F41.8 Other specified anxiety disorders; Z79.4 Long term (current) use of insulin; Z88.8 Allergy status to other drugs, medicaments and biological substances; Z79.899 Other long term (current) drug therapy; Z87.891 Personal history of nicotine dependence
CPT/HCPCS: 36415; 76856; 80053; 80305; 81001; 81025; 82009; 82140; 82150; 82962; 83690; 85025; 96361; 96372; 96374; 96375; 99284; C9113; G0480; J1170; J2405; J7040; J1815-GY

== ENCOUNTER 2016-10-07 04:06 | Emergency (ER) | payer MEDICAID ==
[2016-10-07] MEDS ORDERED: Sodium Chloride 0.9% 2,000 ML IV ONE (04:29)
[2016-10-07] MEDS ORDERED: Naproxen 500 MG Tab PO ONE (04:30)
--- NOTE | 2016-10-07 04:37 | EDM.PDOC ---
ED HPI LOWER BACK PAIN/INJURY - General Chief Complaint: Back Pain or Injury Stated Complaint: PAIN ON LEFT SIDE, VOMITING, HEADACHE Time Seen by Provider: 10/07/16 04:20 Source of Information: Reports: Patient History Limitations: Reports: No limitations - History of Present Illness INITIAL COMMENTS - FREE TEXT/NARRATIVE: HISTORY AND PHYSICAL: History of present illness: [26-year-old female with a history of insulin-dependent diabetes and chronic noncompliance with multiple episodes of DKA also with gastroparesis extremely well known to our emergency medicine service for narcotic addiction and multiple drug-seeking presentations, now presents to the emergency department complaining of right low back pain area patient states she her low back is hurting. She has normal bowel and bladder habits. No fevers chills sweats or shaking chills. Patient states she's checked her glucose earlier tonight and was 200. She has no incontinence. Denies injury.] Review of systems: As per history of present illness and below otherwise all systems reviewed and negative. Past medical history: As per history of present illness and as reviewed below otherwise noncontributory. Surgical history: As per history of present illness and as reviewed below otherwise noncontributory. Social history: No reported history of drug or alcohol abuse. Family history: As per history of present illness and as reviewed below otherwise noncontributory. Physical exam: 26-year-old female no acute distress, patient so we'll move without any apparent discomfort. Large,Very dirty stuffed panda in bed with patient HEENT: Atraumatic, normocephalic, pupils reactive, negative for conjunctival pallor or scleral icterus, mucous membranes mildly dry, throat clear, neck supple, nontender, trachea midline. Lungs: Clear to auscultation, breath sounds equal bilaterally, chest nontender. Mild tachycardia Heart: S1S2, regular, negative for clicks, rubs, or JVD. Abdomen: Soft, nondistended, nontender. Negative for masses or hepatosplenomegaly. Negative for costovertebral tenderness. Right low back with mild soft tissue tenderness. No bony tenderness or midline tenderness. No saddle anesthesia. Negative straight leg raise. Neurovascularly intact bilateral lower extremities Pelvis: Stable nontender. Genitourinary: Deferred. Rectal: Deferred. Extremities: Atraumatic, negative for cords or calf pain. Neurovascular unremarkable. Neuro: Awake, alert, oriented. Cranial nerves II through XII unremarkable. Cerebellum unremarkable. Motor and sensory unremarkable throughout. Exam nonfocal. Diagnostics: [] Therapeutics: [] Impression: [] Plan: [Signs and symptoms consistent with dehydration in a diabetic is known to be noncompliant and has an extensive narcotic abuse and drug-seeking history. Basic metabolic panel and urinalysis pending to rule out diabetic ketoacidosis. 2 L of IV fluids wide open initiated for apparent mild dehydration. Patient with multiple requests for narcotic analgesia. She was offered Naprosyn, but one anti-inflammatory medicine she does not claim to be allergic to. Patient refused this because she states she is allergic to all NSAIDs. On becoming aware that she would not receive narcotics patient states she will sign out AGAINST MEDICAL ADVICE. Patient aware leaving without treatment could result in or permanent disability she'll exercise out AGAINST MEDICAL ADVICE anyway patient is competent to do so. Patient left prior to receipt of lab results. She is encouraged to return anytime for further workup and treatment as needed. Definitive disposition and diagnosis as appropriate pending reevaluation and review of above. - Related Data Allergies/ADRs: Allergies Allergy/AdvReac Type Severity Reaction Status Date / Time acetaminophen [From Tylenol] Allergy Liver Verified 10/07/16 04:14 Problems amoxicillin Allergy Hives Verified 10/07/16 04:14 amoxicillin trihydrate Allergy Hives Verified 10/07/16 04:14 [From Amoxil] ibuprofen Allergy Liver Verified 10/07/16 04:14 Problems ketorolac tromethamine Allergy Hives Verified 10/07/16 04:14 [From Toradol] metoclopramide HCl Allergy Airway Verified 10/07/16 04:14 [From Reglan] Tightness tramadol Allergy Hives Verified 10/07/16 04:14 Home Meds: Home Meds Insulin Detemir [Levemir] 15 unit SUBCUT BID 03/24/16 [History] LORazepam [Ativan] 0.5 mg PO BID PRN 03/24/16 [History] Ondansetron [Ondansetron ODT] 8 mg PO QID PRN 04/19/16 [History] Insulin Aspart [Novolog Flexpen] 16 - 20 unit SUBCUT TIDMEALS 05/15/16 [History] Omeprazole 20 mg PO BIDAC 05/15/16 [History] Albuterol Sulfate [Proair Hfa] 1 puff INH Q4H PRN 06/12/16 [History] Promethazine HCl 25 mg PO Q6H PRN 08/24/16 [History] Morphine [MS Contin] 60 mg PO Q6H 10/07/16 [History] Past Medical History - Past Health History Medical/Surgical History: Denies Medical/Surgical History HEENT History: Reports: Allergic rhinitis Other HEENT History: dental abcess Cardiovascular History: Reports: None Respiratory History: Reports: Asthma Gastrointestinal History: Reports: GI bleed, Hepatitis, PUD, Other (see below) Other Gastrointestinal History: hx of C-diff, hx of Hepatitis B Genitourinary History: Reports: UTI, recurrent Other Genitourinary History: current UTI CHILD CARE DIRECTOR History: Reports: Other (see below) Other OB/BYN History: had miscarriage twice Musculoskeletal History: Reports: Back pain, chronic, Other (see below) Neurological History: Reports: Migraines, Seizure 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, last on was 4 months ago Psychiatric History: Reports: Anxiety, Depression Endocrine/Metabolic History: Reports: Diabetes, type I Hematologic History: Reports: Anemia Immunologic History: Reports: None Oncologic (Cancer) History: Reports: None Dermatologic History: Reports: Other (see below) Other Dermatologic History: possible infection from port removal R upper chest - Infectious Disease History Infectious Disease History: Reports: None - Past Surgical History Head Surgeries/Procedures: Reports: None HEENT Surgical History: Reports: Tonsillectomy Cardiovascular Surgical History: Reports: None Respiratory Surgical History: Reports: None Other Respiratory Surgeries/Procedures: History of Asthma at 11 years old. GI Surgical History: Reports: Appendectomy, Cholecystectomy, ERCP Female Surgical History: Reports: None Endocrine Surgical History: Reports: None Neurological Surgical History: Reports: None Musculoskeletal Surgical History: Reports: None Oncologic Surgical History: Reports: None Dermatological Surgical History: Reports: None - History Comment History Comment: She has had over [address] scans in the last 4 years. Social & Family History - Family History Family Medical History: Noncontributory HEENT: Reports: Impaired vision Cardiac: Reports: Heart failure Respiratory: Reports: Asthma GI: Reports: None : Reports: Renal disease/insufficiency OBGYN: Reports: Musculoskeletal: Reports: Back pain, chronic Neurological: Reports: Seizure Psychiatric: Reports: None Endocrine/Metabolic: Reports: Diabetes, type I Hematologic: Reports: None Immunologic: Reports: None Dermatologic: Reports: None Oncologic: Reports: Breast, Cervix - Tobacco Use Smoking Status *Q: Never Smoker Years of Tobacco use: 4 Packs/Tins Daily: 0.5 Used Tobacco, but Quit: Yes Month Tobacco Last Used: 5 months Second Hand Smoke Exposure: No - Caffeine Use Caffeine Use: Reports: None - Alcohol Use Days Per Week of Alcohol Use: 0 - Recreational Drug Use Recreational Drug Use: No Drug Use in Last 12 Months: No - Living Situation & Occupation Living situation: Reports: with significant other (fiance.), with family, other (She shares a camper with her fiance and father) Occupation: unemployed ED ROS GENERAL - Review of Systems Review Of Systems: See Below (History of present illness) ED EXAM,LOWER BACK PAIN/INJURY - Physical Exam Exam: See Below (History of present illness) Course - Vital Signs Last Recorded V/S: Last Vital Signs Temp 37.2 C 10/07/16 04:17 Pulse 123 H 10/07/16 05:25 Resp 18 10/07/16 05:25 BP 108/74 10/07/16 05:25 Pulse Ox 97 10/07/16 05:25 - Orders/Labs/Meds Labs: Laboratory Tests 10/07/16 10/07/16 Range/Units 04:32 04:40 Sodium 136 (136-146) mmol/L Potassium 4.4 (3.5-5.1) mmol/L Chloride 99 (98-110) mmol/L Carbon Dioxide 18 L (21-31) mmol/L BUN 17 (6.0-23.0) mg/dL Creatinine 0.9 (0.6-1.5) mg/dL Est Cr Clr Drug Dosing 67.23 mL/min Estimated GFR (MDRD) > 60.0 ml/min Glucose 553 H* (60-110) mg/dL Calcium 9.4 (8.8-10.8) mg/dL Urine Color YELLOW Urine Appearance CLEAR Urine pH 7.0 (5.0-8.0) Ur Specific Harper 1.010 (1.001-1.035) Urine Protein NEGATIVE (NEGATIVE) mg/dL Urine Glucose (UA) >=1000 (NEGATIVE) mg/dL Urine Ketones 40 H (NEGATIVE) mg/dL Urine Occult Blood NEGATIVE (NEGATIVE) Urine Nitrite NEGATIVE (NEGATIVE) Urine Bilirubin NEGATIVE (NEGATIVE) Urine Urobilinogen 0.2 (<2.0) EU/dL Ur Leukocyte Esterase NEGATIVE (NEGATIVE) Meds: Medications Discontinued Medications Generic Name Dose Route Start Last Admin Trade Name Freq PRN Reason Stop Dose Admin Sodium Chloride 2,000 mls @ 999 mls/hr 10/07/16 04:29 10/07/16 04:35 Normal Saline IV 10/07/16 06:29 999 mls/hr STAT ONE Administration Naproxen 500 mg 10/07/16 04:30 Naprosyn PO 10/07/16 04:31 ONETIME ONE Naproxen 250 mg 10/07/16 04:31 10/07/16 04:43 Naprosyn PO 10/07/16 04:32 Not Given ONETIME ONE Ondansetron HCl 4 mg 10/07/16 04:59 10/07/16 05:08 Zofran IVPUSH 10/07/16 05:00 4 mg ONETIME ONE Administration Departure - Departure Time of Disposition: 05:25 Disposition: Against Medical Advice 07 Condition: fair Clinical Impression: Low back pain, Drug-seeking behavior, Tachycardia, Dehydration Referrals: Maynor Black MD [Primary Care Provider] -
[2016-10-07] MEDS: Naproxen 500 MG Tab PO ONE ×2 (04:39→04:43)
[2016-10-07] MEDS ORDERED: Ondansetron 4 MG/2 ML SDV IVPUSH ONE (04:59)
[2016-10-07 05:35] VITALS: BP 108/74
[2016-10-07 05:45] LABS: CHLORIDE,CL 99 mmol/L (98-110); SODIUM,NA 136 mmol/L (136-146)
== END 2016-10-07 05:25 | disposition left against medical advice (07) ==
LOC: MW.ED 04:06
DX: R00.0 Tachycardia, unspecified (principal); E86.0 Dehydration; M54.5 Low back pain; E10.9 Type 1 diabetes mellitus without complications; Z76.5 Malingerer [conscious simulation]; Z88.0 Allergy status to penicillin; Z88.6 Allergy status to analgesic agent; Z79.899 Other long term (current) drug therapy; Z86.2 Personal history of diseases of the blood and blood-forming organs and certain disorders involving the immune mechanism; Z90.89 Acquired absence of other organs; Z98.890 Other specified postprocedural states; Z87.440 Personal history of urinary (tract) infections
CPT/HCPCS: 80048; 81003; 96361; 96374; 99283; J2405; J7040; A9270-GY

== ENCOUNTER 2016-10-08 03:53 | Inpatient (IN) | payer MEDICAID ==
[2016-10-08] MEDS ORDERED: Sodium Chloride 0.9% 3,000 ML IV ONE (03:56)
--- NOTE | 2016-10-08 03:59 | EDM.PDOC ---
ED HPI RENAL/ - General Chief Complaint: Abdominal Pain Stated Complaint: HIGH BLOOD SURGERY Time Seen by Provider: 10/08/16 04:00 Source of Information: Reports: Patient History Limitations: Reports: No limitations - History of Present Illness INITIAL COMMENTS - FREE TEXT/NARRATIVE: HISTORY AND PHYSICAL: History of present illness: [26-year-old female well known to our emergency medicine service for frequent visits for uncontrolled diabetes and insulin noncompliance as well as drug abuse and drug-seeking behavior, now presents emergency department brought in by EMS stating she just doesn't feel well. Patient has not been using her insulin. Her heart rate is 140 per EMS and her glucose is so high it will not read] on the scale. Patient has no specific planes just that she "feels sick." Review of systems: As per history of present illness and below otherwise all systems reviewed and negative. Past medical history: As per history of present illness and as reviewed below otherwise noncontributory. Surgical history: As per history of present illness and as reviewed below otherwise noncontributory. Social history: No reported history of drug or alcohol abuse. Family history: As per history of present illness and as reviewed below otherwise noncontributory. Physical exam: Patient is ill-appearing and seems to be under the influence of drugs, her speech is rambling she is communicative and follows commands, she certainly protecting her airway and nonfocal neurologically HEENT: Atraumatic, normocephalic, pupils reactive, negative for conjunctival pallor or scleral icterus, mucous membranes very dry, neck supple, nontender, trachea midline. Lungs: Clear to auscultation, breath sounds equal bilaterally, chest nontender, mild tachypnea Heart: S1S2, regular, negative for clicks, rubs, or JVD. Tachycardia 140 Abdomen: Soft, nondistended, nontender. Negative for masses or hepatosplenomegaly. Negative for costovertebral tenderness. Pelvis: Stable nontender. Genitourinary: Deferred. Rectal: Deferred. Extremities: Atraumatic, negative for cords or calf pain. Neurovascular unremarkable. Neuro: Awake, alert, oriented. Cranial nerves grossly unremarkable. Cerebellum unremarkable. Motor and sensory unremarkable throughout. Exam nonfocal. Diagnostics: [EKG with normal sinus tachycardia at 1:30 normal axis no STEMI ] Chest x-ray no acute disease interpreted by me Therapeutics: [IV hydration, supplemental oxygen, insulin drip, potassium supplementation] Impression: [] Plan: [Signs and symptoms consistent with suspected DKA in noncompliant diabetic. Patient is clearly profoundly dehydrated. She is significantly tachycardic. IV fluids will be initiated] since IV access can be obtained. Patient's airway is stable she is alert and communicative but does seem she is under the influence of drugs. Will check urine drug screen and UA. Full labs pending anticipate ICU admission for treatment of uncontrolled diabetes/diabetic ketoacidosis/severe dehydration. Patient's tachycardia improved with hydration to 128 after 1.5 L at 5:44 AM blood glucose returned at 757. Potassium 4.8. Insulin drip initiated with continued aggressive normal saline hydration. Potassium will be started at 10 mEq an hour IV and will give 40 mEq of potassium liquid by mouth. Case discussed with Dr. Leno Escobedo hospitalist information strategist who is aware history and findings and agrees with inpatient admission to the ICU to his service, and with continuing current therapy. Definitive disposition and diagnosis as appropriate pending reevaluation and review of above. 75 minutes of critical care in setting of acute DKA with severe acidosis and severe dehydration, following response to therapy. Many bedside reevaluation following altered mental status, with gradual improvement with hydration. Patient continued to protect her airway and respond to commands. Potassium supplementation initiated as soon as patient had urine output. Urine drug screen positive for opiates as it is known that patient takes frequently. - Related Data Allergies/ADRs: Allergies Allergy/AdvReac Type Severity Reaction Status Date / Time acetaminophen [From Tylenol] Allergy Liver Verified 10/08/16 03:57 Problems amoxicillin Allergy Hives Verified 10/08/16 03:57 amoxicillin trihydrate Allergy Hives Verified 10/08/16 03:57 [From Amoxil] ibuprofen Allergy Liver Verified 10/08/16 03:57 Problems ketorolac tromethamine Allergy Hives Verified 10/08/16 03:57 [From Toradol] metoclopramide HCl Allergy Airway Verified 10/08/16 03:57 [From Reglan] Tightness tramadol Allergy Hives Verified 10/08/16 03:57 Home Meds: Home Meds Insulin Detemir [Levemir] 15 unit SUBCUT BID 03/24/16 [History] LORazepam [Ativan] 0.5 mg PO BID PRN 03/24/16 [History] Ondansetron [Ondansetron ODT] 8 mg PO QID PRN 04/19/16 [History] Insulin Aspart [Novolog Flexpen] 16 - 20 unit SUBCUT TIDMEALS 05/15/16 [History] Omeprazole 20 mg PO BIDAC 05/15/16 [History] Albuterol Sulfate [Proair Hfa] 1 puff INH Q4H PRN 06/12/16 [History] Promethazine HCl 25 mg PO Q6H PRN 08/24/16 [History] Morphine [MS Contin] 60 mg PO Q6H 10/07/16 [History] Past Medical History - Past Health History Medical/Surgical History: Denies Medical/Surgical History HEENT History: Reports: Allergic rhinitis Other HEENT History: dental abcess Cardiovascular History: Reports: None Respiratory History: Reports: Asthma Gastrointestinal History: Reports: GI bleed, Hepatitis, PUD, Other (see below) Other Gastrointestinal History: hx of C-diff, hx of Hepatitis B Genitourinary History: Reports: UTI, recurrent Other Genitourinary History: current UTI TECHNICAL DESIGNER History: Reports: Other (see below) Other OB/BYN History: had miscarriage twice Musculoskeletal History: Reports: Back pain, chronic, Other (see below) Neurological History: Reports: Migraines, Seizure 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, last on was 4 months ago Psychiatric History: Reports: Anxiety, Depression Endocrine/Metabolic History: Reports: Diabetes, type I Hematologic History: Reports: Anemia Immunologic History: Reports: None Oncologic (Cancer) History: Reports: None Dermatologic History: Reports: Other (see below) Other Dermatologic History: possible infection from port removal R upper chest - Infectious Disease History Infectious Disease History: Reports: None - Past Surgical History Head Surgeries/Procedures: Reports: None HEENT Surgical History: Reports: Tonsillectomy Cardiovascular Surgical History: Reports: None Respiratory Surgical History: Reports: None Other Respiratory Surgeries/Procedures: History of Asthma at 11 years old. GI Surgical History: Reports: Appendectomy, Cholecystectomy, ERCP Female Surgical History: Reports: None Endocrine Surgical History: Reports: None Neurological Surgical History: Reports: None Musculoskeletal Surgical History: Reports: None Oncologic Surgical History: Reports: None Dermatological Surgical History: Reports: None - History Comment History Comment: She has had over [address] scans in the last 4 years. Social & Family History - Family History Family Medical History: Noncontributory HEENT: Reports: Impaired vision Cardiac: Reports: Heart failure Respiratory: Reports: Asthma GI: Reports: None : Reports: Renal disease/insufficiency OBGYN: Reports: Musculoskeletal: Reports: Back pain, chronic Neurological: Reports: Seizure Psychiatric: Reports: None Endocrine/Metabolic: Reports: Diabetes, type I Hematologic: Reports: None Immunologic: Reports: None Dermatologic: Reports: None Oncologic: Reports: Breast, Cervix - Tobacco Use Smoking Status *Q: Never Smoker Years of Tobacco use: 4 Packs/Tins Daily: 0.5 Used Tobacco, but Quit: Yes Month Tobacco Last Used: 5 months Second Hand Smoke Exposure: No - Caffeine Use Caffeine Use: Reports: None - Alcohol Use Days Per Week of Alcohol Use: 0 - Recreational Drug Use Recreational Drug Use: No Drug Use in Last 12 Months: No - Living Situation & Occupation Living situation: Reports: with significant other (fiance.), with family, other (She shares a camper with her fiance and father) Occupation: unemployed ED ROS GENERAL - Review of Systems Review Of Systems: See Below (History of present illness) ED EXAM, RENAL/ - Physical Exam Exam: See Below (History of present illness) Course - Vital Signs Last Recorded V/S: Last Vital Signs Temp 36.4 C 10/08/16 03:57 Pulse 138 H 10/08/16 04:55 Resp 25 H 10/08/16 04:55 BP 171/74 H 10/08/16 04:55 Pulse Ox 99 10/08/16 04:55 - Orders/Labs/Meds Orders: Active Orders 24 hr Category Date Time Status EKG Documentation Completion [RC] STAT Care 10/08/16 03:56 Active Chest 1V Frontal [CR] Stat Exams 10/08/16 03:56 Ordered Insulin Regular, Human [NovoLIN R] 100 unit Med 10/08/16 05:45 Ordered Sodium Chloride 0.9% [Normal Saline] 99 ml IV TITRATE Sodium Chloride 0.9% [Normal Saline] 3,000 ml Med 10/08/16 03:56 Active IV .Bolus Peripheral IV Insertion Adult [OM.PC] Stat Oth 10/08/16 03:56 Ordered Medication Orders Sodium Chloride (Normal Saline) 3,000 mls @ 999 mls/hr IV .Bolus ONE Stop: 04/09/17 06:56 Last Admin: 10/08/16 04:15 Dose: 999 mls/hr Insulin Human Regular 100 unit (/ Sodium Chloride) 100 mls @ 4.53 mls/hr IV TITRATE PIPPA; 0.1 UNIT/KG/HR PRN Reason: Protocol Potassium Chloride 40 meq/ (Sodium Chloride) 520 mls @ 500 mls/hr IV NOW ONE Stop: 10/08/16 07:32 Potassium Bicarbonate (Klor-Con Ef) 40 meq PO DAILY PIPPA Labs: Laboratory Tests 10/08/16 10/08/16 10/08/16 Range/Units 04:40 04:40 04:40 WBC 15.73 H (4.0-11.0) K/uL RBC 4.86 (4.30-5.90) M/uL Hgb 14.3 (12.0-16.0) g/dL Hct 47.4 H (36.0-46.0) % MCV 97.5 (80.0-98.0) fL MCH 29.4 (27.0-32.0) pg MCHC 30.2 L (31.0-37.0) g/dL RDW Std Deviation 51.3 (28.0-62.0) fl RDW Coeff of Zak 15 (11.0-15.0) % Plt Count 344 (150-400) K/uL MPV 11.70 (7.40-12.00) fL Add Manual Diff YES Neutrophils % (Manual) 51 (48.0-80.0) % Lymphocytes % (Manual) 34 (16.0-40.0) % Monocytes % (Manual) 8 (0.0-15.0) % Eosinophils % (Manual) 7 (0.0-7.0) % Nucleated RBC % 0.0 /100WBC Absolute Seg Neuts 8.0 Lymphocytes # (Manual) 5.3 Monocytes # (Manual) 1.3 Eosinophils # (Manual) 1.1 Nucleated RBCs # 0 K/uL VBG pH (7.31-7.41) VBG pCO2 (35-45) mmHG VBG pO2 (30-40) mmHG VBG HCO3 (22-30) mEq/L VBG Total CO2 (41-51) mmol/L VBG Base Excess (-3.0-3.0) Sodium 136 (136-146) mmol/L Potassium 4.8 (3.5-5.1) mmol/L Chloride 99 (98-110) mmol/L Carbon Dioxide 5 L (21-31) mmol/L BUN 23 (6.0-23.0) mg/dL Creatinine 1.6 H (0.6-1.5) mg/dL Est Cr Clr Drug Dosing 37.77 mL/min Estimated GFR (MDRD) 38.7 ml/min Glucose 757 H* (60-110) mg/dL Calcium 10.1 (8.8-10.8) mg/dL Total Bilirubin 0.4 (0.1-1.5) mg/dL AST 37 (5-40) IU/L ALT 137 H (8-54) IU/L Alkaline Phosphatase 246 H (40-150) Troponin I < 0.10 (0.0-0.29) NG/ML Total Protein 8.3 H (6.0-8.0) g/dL Albumin 4.7 (3.5-5.0) g/dL Globulin 3.6 H (2.0-3.5) g/dL Albumin/Globulin Ratio 1.3 (1.3-2.8) Urine Color Urine Appearance Urine pH (5.0-8.0) Ur Specific Ramer (1.001-1.035) Urine Protein (NEGATIVE) mg/dL Urine Glucose (UA) (NEGATIVE) mg/dL Urine Ketones (NEGATIVE) mg/dL Urine Occult Blood (NEGATIVE) Urine Nitrite (NEGATIVE) Urine Bilirubin (NEGATIVE) Urine Urobilinogen (<2.0) EU/dL Ur Leukocyte Esterase (NEGATIVE) Urine RBC (0-2/HPF) Urine WBC (0-5/HPF) Ur Epithelial Cells (NONE-FEW) Urine Bacteria (NEGATIVE) Urine Mucus (NONE-MOD) Urine Yeast Urine Opiates Screen (NEGATIVE) Ur Oxycodone Screen (NEGATIVE) Urine Methadone Screen (NEGATIVE) Ur Barbiturates Screen (NEGATIVE) Ur Phencyclidine Scrn (NEGATIVE) Ur Amphetamine Screen (NEGATIVE) U Methamphetamines Scrn (NEGATIVE) U Benzodiazepines Scrn (NEGATIVE) U Cocaine Metab Screen (NEGATIVE) U Marijuana (THC) Screen (NEGATIVE) 10/08/16 10/08/16 10/08/16 Range/Units 04:40 05:42 05:42 WBC (4.0-11.0) K/uL RBC (4.30-5.90) M/uL Hgb (12.0-16.0) g/dL Hct (36.0-46.0) % MCV (80.0-98.0) fL MCH (27.0-32.0) pg MCHC (31.0-37.0) g/dL RDW Std Deviation (28.0-62.0) fl RDW Coeff of Zak (11.0-15.0) % Plt Count (150-400) K/uL MPV (7.40-12.00) fL Add Manual Diff Neutrophils % (Manual) (48.0-80.0) % Lymphocytes % (Manual) (16.0-40.0) % Monocytes % (Manual) (0.0-15.0) % Eosinophils % (Manual) (0.0-7.0) % Nucleated RBC % /100WBC Absolute Seg Neuts Lymphocytes # (Manual) Monocytes # (Manual) Eosinophils # (Manual) Nucleated RBCs # K/uL VBG pH 7.01 L (7.31-7.41) VBG pCO2 20 L (35-45) mmHG VBG pO2 60 H (30-40) mmHG VBG HCO3 5 L (22-30) mEq/L VBG Total CO2 5 L (41-51) mmol/L VBG Base Excess -24.2 L (-3.0-3.0) Sodium (136-146) mmol/L Potassium (3.5-5.1) mmol/L Chloride (98-110) mmol/L Carbon Dioxide (21-31) mmol/L BUN (6.0-23.0) mg/dL Creatinine (0.6-1.5) mg/dL Est Cr Clr Drug Dosing mL/min Estimated GFR (MDRD) ml/min Glucose (60-110) mg/dL Calcium (8.8-10.8) mg/dL Total Bilirubin (0.1-1.5) mg/dL AST (5-40) IU/L ALT (8-54) IU/L Alkaline Phosphatase (40-150) Troponin I (0.0-0.29) NG/ML Total Protein (6.0-8.0) g/dL Albumin (3.5-5.0) g/dL Globulin (2.0-3.5) g/dL Albumin/Globulin Ratio (1.3-2.8) Urine Color YELLOW Urine Appearance CLEAR Urine pH 5.5 (5.0-8.0) Ur Specific Ramer 1.015 (1.001-1.035) Urine Protein NEGATIVE (NEGATIVE) mg/dL Urine Glucose (UA) 500 H (NEGATIVE) mg/dL Urine Ketones >=80 (NEGATIVE) mg/dL Urine Occult Blood TRACE-LYSED (NEGATIVE) Urine Nitrite NEGATIVE (NEGATIVE) Urine Bilirubin NEGATIVE (NEGATIVE) Urine Urobilinogen 0.2 (<2.0) EU/dL Ur Leukocyte Esterase NEGATIVE (NEGATIVE) Urine RBC 0-2 (0-2/HPF) Urine WBC 0-3 (0-5/HPF) Ur Epithelial Cells FEW (NONE-FEW) Urine Bacteria FEW (NEGATIVE) Urine Mucus LIGHT (NONE-MOD) Urine Yeast OCCASIONAL Urine Opiates Screen POSITIVE (NEGATIVE) Ur Oxycodone Screen NEGATIVE (NEGATIVE) Urine Methadone Screen NEGATIVE (NEGATIVE) Ur Barbiturates Screen NEGATIVE (NEGATIVE) Ur Phencyclidine Scrn NEGATIVE (NEGATIVE) Ur Amphetamine Screen NEGATIVE (NEGATIVE) U Methamphetamines Scrn NEGATIVE (NEGATIVE) U Benzodiazepines Scrn NEGATIVE (NEGATIVE) U Cocaine Metab Screen NEGATIVE (NEGATIVE) U Marijuana (THC) Screen NEGATIVE (NEGATIVE) Meds: Medications Generic Name Dose Route Start Last Admin Trade Name Freq PRN Reason Stop Dose Admin Sodium Chloride 3,000 mls @ 999 mls/hr 10/08/16 03:56 10/08/16 04:15 Normal Saline IV 10/08/16 06:56 999 mls/hr .Bolus ONE Administration Insulin Human Regular 100 unit 100 mls @ 4.53 mls/hr 10/08/16 05:45 / Sodium Chloride IV TITRATE PIPPA Protocol 0.1 UNIT/KG/HR Potassium Chloride 40 meq/ 520 mls @ 500 mls/hr 10/08/16 06:30 Sodium Chloride IV 10/08/16 07:32 NOW ONE Potassium Bicarbonate 40 meq 10/08/16 06:30 Klor-Con Ef PO DAILY PIPPA Discontinued Medications Generic Name Dose Route Start Last Admin Trade Name Freq PRN Reason Stop Dose Admin Hydrocodone Bitart/Acetaminophen 1 tab 10/08/16 04:59 10/08/16 06:23 Gattman 325-5 Mg PO 10/08/16 05:00 Not Given ONETIME ONE Potassium Chloride/Sodium Chloride 500 mls @ 125 mls/hr 10/08/16 06:20 Normal Saline With 40 Meq Kcl IV 10/08/16 10:19 NOW STA Lorazepam 0.5 mg 10/08/16 05:58 10/08/16 06:00 Ativan IVPUSH 10/08/16 05:59 0.5 mg STAT STA Administration Lorazepam 0.5 mg 10/08/16 05:59 10/08/16 06:00 Ativan IVPUSH 10/08/16 06:00 0.5 mg ONETIME ONE Administration Ondansetron HCl 4 mg 10/08/16 04:55 10/08/16 05:09 Zofran IVPUSH 10/08/16 04:56 4 mg ONETIME ONE Administration Potassium Bicarbonate 50 meq 10/08/16 06:30 Klor-Con Ef PO DAILY PIPPA Potassium Chloride 40 meq 10/08/16 05:47 Klor-Con M20 PO 10/08/16 05:48 ONETIME ONE Departure - Departure Time of Disposition: 06:28 Disposition: Home, Self-Care 01 Condition: critical Clinical Impression: Diabetic ketoacidosis, Metabolic acidosis, Severe dehydration, Tachycardia, Altered mental status - My Orders Last 24 Hours: My Active Orders 10/08/16 03:56 EKG Documentation Completion [RC] STAT Chest 1V Frontal [CR] Stat Sodium Chloride 0.9% [Normal Saline] 3,000 ml IV .Bolus Peripheral IV Insertion Adult [OM.PC] Stat 10/08/16 05:45 Insulin Regular, Human [NovoLIN R] 100 unit Sodium Chloride 0.9% [Normal Saline] 99 ml IV TITRATE - Assessment/Plan Last 24 Hours: My Active Orders 10/08/16 03:56 EKG Documentation Completion [RC] STAT Chest 1V Frontal [CR] Stat Sodium Chloride 0.9% [Normal Saline] 3,000 ml IV .Bolus Peripheral IV Insertion Adult [OM.PC] Stat 10/08/16 05:45 Insulin Regular, Human [NovoLIN R] 100 unit Sodium Chloride 0.9% [Normal Saline] 99 ml IV TITRATE
[2016-10-08] MEDS ORDERED: Ondansetron 4 MG/2 ML SDV IVPUSH ONE (04:55)
[2016-10-08] MEDS ORDERED: Acetaminophen/HYDROcodone 325-5 MG Tab PO ONE (04:59)
[2016-10-08] MEDS ORDERED: Potassium Chloride 20 MEQ Tab.ER PO ONE (05:47)
[2016-10-08] MEDS ORDERED: LORazepam 2 MG/ML MDV IVPUSH STA (05:58)
[2016-10-08] MEDS ORDERED: LORazepam 2 MG/ML MDV IVPUSH ONE ×2 (05:59→06:53)
[2016-10-08] MEDS ORDERED: Sodium Chloride 0.9% with KCl 500 ML IV STA (06:20)
[2016-10-08] MEDS ORDERED: Potassium Chloride 40 MEQ in Sodium Chloride 0.9% 500 ML IV ONE (06:30)
[2016-10-08] MEDS ORDERED: Potassium Bicarbonate 25 MEQ Tab.EFF PO SCH (06:30)
[2016-10-08] MEDS: Potassium Bicarbonate 25 MEQ Tab.EFF PO SCH ×2 (08:28→10:19)
[2016-10-08] MEDS ORDERED: Sodium Chloride 0.9% 1,000 ML IV SCH ×2 (08:45→14:00)
--- NOTE | 2016-10-08 08:45 | PCM.HP ---
H&P History of Present Illness - General Admit Problem/Dx: Admission Diagnosis/Problem Admission Diagnosis/Problem Diabetic ketoacidosis - History of Present Illness Initial Comments - Free Text/Narative: 26 yo female with pmh of DM with multiple admission for DKA. She also has history of duodenal ulcer,tyelonl poisoning, and chronic nausea and abdominal pain on chronic opiods. Patient reportedly was seen in the ED yesterday and left AMA as she did not get the pain medications she was requesting. She was brought back early this morning by EMS. Reportedly the boyfriend who was sleeping in bed with her did not wake up when the EMS came to get her. She complained of not feeling well. She was noted to be in DKA with blood sugar over 700, ABG with PH of 7.01 and bicarb of 5. She was aggitated and reported would remove IV lines. She was given ativan in the ED and IV was placed in the foot as were unable to find other source for IV. Patient is currently following commands but does not respond to questioning. She is crying but her affect is difficult to interpret because she in the past when I have taking care of her she fluctuates from crying to normal affect quite quickly. abdominal area Pain Score (Numeric/FACES): 5 - Related Data Allergies/Adverse Reactions: Allergies Allergy/AdvReac Type Severity Reaction Status Date / Time acetaminophen [From Tylenol] Allergy Liver Verified 10/08/16 03:57 Problems amoxicillin Allergy Hives Verified 10/08/16 03:57 amoxicillin trihydrate Allergy Hives Verified 10/08/16 03:57 [From Amoxil] ibuprofen Allergy Liver Verified 10/08/16 03:57 Problems ketorolac tromethamine Allergy Hives Verified 10/08/16 03:57 [From Toradol] metoclopramide HCl Allergy Airway Verified 10/08/16 03:57 [From Reglan] Tightness tramadol Allergy Hives Verified 10/08/16 03:57 Home Medications: Home Meds Insulin Detemir [Levemir] 15 unit SUBCUT BID 03/24/16 [History] LORazepam [Ativan] 0.5 mg PO BID PRN 03/24/16 [History] Ondansetron [Ondansetron ODT] 8 mg PO QID PRN 04/19/16 [History] Insulin Aspart [Novolog Flexpen] 16 - 20 unit SUBCUT TIDMEALS 05/15/16 [History] Omeprazole 20 mg PO BIDAC 05/15/16 [History] Albuterol Sulfate [Proair Hfa] 1 puff INH Q4H PRN 06/12/16 [History] Promethazine HCl 25 mg PO Q6H PRN 08/24/16 [History] Morphine [MS Contin] 60 mg PO Q6H 10/07/16 [History] Past Medical History - Past Health History Medical/Surgical History: Denies Medical/Surgical History HEENT History: Reports: Allergic rhinitis Other HEENT History: dental abcess Cardiovascular History: Reports: None Respiratory History: Reports: Asthma Gastrointestinal History: Reports: GI bleed, Hepatitis, PUD, Other (see below) Other Gastrointestinal History: hx of C-diff, hx of Hepatitis B Genitourinary History: Reports: UTI, recurrent Other Genitourinary History: current UTI APPLIED EXERCISE PHYSIOLOGIST History: Reports: Other (see below) Other OB/BYN History: had miscarriage twice Musculoskeletal History: Reports: Back pain, chronic, Other (see below) Neurological History: Reports: Migraines, Seizure 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, last on was 4 months ago Psychiatric History: Reports: Anxiety, Depression Endocrine/Metabolic History: Reports: Diabetes, type I Hematologic History: Reports: Anemia Immunologic History: Reports: None Oncologic (Cancer) History: Reports: None Dermatologic History: Reports: Other (see below) Other Dermatologic History: possible infection from port removal R upper chest - Infectious Disease History Infectious Disease History: Reports: None - Past Surgical History Head Surgeries/Procedures: Reports: None HEENT Surgical History: Reports: Tonsillectomy Cardiovascular Surgical History: Reports: None Respiratory Surgical History: Reports: None Other Respiratory Surgeries/Procedures: History of Asthma at 11 years old. GI Surgical History: Reports: Appendectomy, Cholecystectomy, ERCP Female Surgical History: Reports: None Endocrine Surgical History: Reports: None Neurological Surgical History: Reports: None Musculoskeletal Surgical History: Reports: None Oncologic Surgical History: Reports: None Dermatological Surgical History: Reports: None - History Comment History Comment: She has had over [address] scans in the last 4 years. Social & Family History - Family History Family Medical History: Noncontributory HEENT: Reports: Impaired vision Cardiac: Reports: Heart failure Respiratory: Reports: Asthma GI: Reports: None : Reports: Renal disease/insufficiency OBGYN: Reports: Musculoskeletal: Reports: Back pain, chronic Neurological: Reports: Seizure Psychiatric: Reports: None Endocrine/Metabolic: Reports: Diabetes, type I Hematologic: Reports: None Immunologic: Reports: None Dermatologic: Reports: None Oncologic: Reports: Breast, Cervix - Tobacco Use Smoking Status *Q: Never Smoker Years of Tobacco use: 4 Packs/Tins Daily: 0.5 Used Tobacco, but Quit: Yes Month Tobacco Last Used: 5 months Second Hand Smoke Exposure: No - Caffeine Use Caffeine Use: Reports: None - Alcohol Use Days Per Week of Alcohol Use: 0 - Recreational Drug Use Recreational Drug Use: No Drug Use in Last 12 Months: No - Living Situation & Occupation Living situation: Reports: with significant other (fiance.), with family, other (She shares a camper with her fiance and father) Occupation: unemployed H&P Review of Systems - Review of Systems: Review Of Systems: Unable To Obtain Exam - Exam Exam: See Below - Vital Signs Vital Signs: Last Vital Signs Temp 36.4 C 10/08/16 03:57 Pulse 129 H 10/08/16 07:21 Resp 36 H 10/08/16 07:21 BP 140/79 10/08/16 07:21 Pulse Ox 99 10/08/16 07:21 Weight: 45.3 kg - Exam General: lethargic Neck: supple Lungs: Clear to auscultation, Normal respiratory effort Cardiovascular: regular rate, regular rhythm Abdomen: normal bowel sounds, soft. No: distention, tenderness Extremities: normal inspection. No: edema Skin: warm, dry, intact Neurological: No: focal deficit - Patient Data Lab Results last 24 hrs: Laboratory Results - last 24 hr 10/08/16 10/08/16 Range/Units 07:22 08:17 POC Glucose 494 H 346 H (60-110) mg/dL Result Diagrams: 10/09/16 02:25 10/09/16 14:00 *Q Meaningful Use (ADM) - VTE *Q VTE Criteria *Q: - Stroke *Q Stroke Criteria *Q: - AMI *Q AMI Criteria *Q: Problem List Initiated/Reviewed/Updated: Yes Orders Last 24hrs: Active Orders 24 hr Category Date Time Status Accu Check [Blood Glucose Check, Bedside] [RC] Q1HR Care 10/08/16 08:35 Active Antiembolic Devices [RC] PER UNIT ROUTINE Care 10/08/16 08:40 Ordered Intake and Output [RC] QSHIFT Care 10/08/16 08:39 Ordered Oxygen Therapy [RC] PRN Care 10/08/16 08:39 Ordered Up ad Esperanza [RC] ASDIRECTED Care 10/08/16 08:39 Ordered VTE/DVT Education [RC] PER UNIT ROUTINE Care 10/08/16 08:39 Ordered Vital Signs [RC] Q4H Care 10/08/16 08:39 Ordered Nothing per Oral Now Diet [DIET] Diet 10/08/16 Breakfast Ordered BASIC METABOLIC PANEL,BMP [CHEM] Q6H Lab 10/08/16 09:00 Ordered BASIC METABOLIC PANEL,BMP [CHEM] Q6H Lab 10/08/16 15:00 Ordered BASIC METABOLIC PANEL,BMP [CHEM] Q6H Lab 10/08/16 21:00 Ordered BASIC METABOLIC PANEL,BMP [CHEM] Q6H Lab 10/09/16 03:00 Ordered CBC WITH AUTO DIFF [HEME] AM Lab 10/09/16 05:11 Ordered CBC WITH AUTO DIFF [HEME] AM Lab 10/10/16 05:11 Ordered Insulin Regular, Human [NovoLIN R] 100 unit Med 10/08/16 08:45 Active Sodium Chloride 0.9% [Normal Saline] 99 ml IV TITRATE Morphine Med 10/08/16 08:39 Ordered 2 mg IVPUSH Q4H PRN Potassium Bicarbonate [Klor-Con EF] Med 10/08/16 06:30 Active 40 meq PO DAILY Sodium Chloride 0.9% [Normal Saline] 1,000 ml Med 10/08/16 08:45 Active IV ASDIRECTED Sequential Compression Device [OM.PC] Per Unit Routine Oth 10/08/16 08:39 Ordered Resuscitation Status Routine Resus Stat 10/08/16 08:39 Ordered Medication Orders Insulin Human Regular 100 unit (/ Sodium Chloride) 100 mls @ 8 mls/hr IV TITRATE PIPPA; 8 UNIT/HR PRN Reason: Protocol Sodium Chloride (Normal Saline) 1,000 mls @ 200 mls/hr IV ASDIRECTED PIPPA Last Admin: 10/08/16 08:38 Dose: 200 mls/hr Morphine Sulfate (Morphine) 2 mg IVPUSH Q4H PRN PRN Reason: Pain (severe 7-10) Stop: 10/09/16 08:39 Potassium Bicarbonate (Klor-Con Ef) 40 meq PO DAILY PIPPA Last Admin: 10/08/16 08:28 Dose: Not Given Assessment/Plan Comment:: 26 yo female admitted with DKA. We will continue rescucitation with IV fluids. We will treat with insulin drip and follow closure of anion gap with seral BMPs.
[2016-10-08] MEDS ORDERED: Pantoprazole 40 MG in Sodium Chloride 0.9% 10 ML IVPUSH SCH (09:15)
[2016-10-08 09:29] LABS: CHLORIDE,CL 118 mmol/L (98-110); SODIUM,NA 146 mmol/L (136-146)
--- NOTE | 2016-10-08 10:34 | PCM.PRNOTE ---
- Free Text/Narrative Note: called to place peripheral iv on difficult iv patient. pt agitated slightly confused but appears to understand procedure. ultrasound view shows very small shallow veins on right and left antecubital #22 iv started on rt antecubital after 3 attempts. pt tolerated well
[2016-10-08] MEDS ORDERED: Dextrose 5%-0.9% NaCl 1,000 ML IV SCH ×2 (11:45→14:00)
[2016-10-08] MEDS: LORazepam 2 MG/ML MDV IVPUSH PRN (14:15)
[2016-10-08] MEDS: Morphine 2 MG/ML Syringe IVPUSH PRN (14:32)
[2016-10-08] MEDS: Pantoprazole 80 MG in Sodium Chloride 0.9% 100 ML IV SCH (14:38)
[2016-10-08] MEDS: Ondansetron 4 MG/2 ML SDV IVPUSH PRN ×2 (14:40→20:01)
--- NOTE | 2016-10-08 15:16 | OR ---
SURGEON: ROSMERY COLON MD DATE OF PROCEDURE: 10/08/2016 PREOPERATIVE DIAGNOSIS: Difficult vascular access. POSTOPERATIVE DIAGNOSIS: Difficult vascular access. PROCEDURE PERFORMED: Right internal jugular vein central line placement. ANESTHESIA: Local. ESTIMATED BLOOD LOSS: 2 mL. FINDINGS: Right internal jugular catheter placement. COMPLICATIONS: None. INDICATIONS: The patient is a 26-year-old female on the Medicine Service with multiple medical issues including DKA. She has extremely difficult IV stick. In the past, she had a Port-A-Cath placed, but this was removed secondary to infection. Multiple peripheral IV attempts were performed by multiple providers. Given the difficulty of access, the decision was made to place a central line for resuscitation and medications. I explained the procedure to the patient as well as expected perioperative course. I explained the risks of the procedure to the patient including bleeding, infection, or damage to surrounding structures. The patient verbalized understanding and wishes to proceed. PROCEDURE IN DETAIL: The patient was met in her ICU room and was on an ICU. A time-out was completed verifying the correct patient, procedure site positioning, and any special equipment that will be needed. The patient was placed in Trendelenburg position and an ultrasound was brought into the field. The right internal jugular vein was noted to be small but visible. The vascular anatomy around the area was confirmed including visualization of the right carotid artery. The patient's right neck was prepped and draped in the usual sterile fashion. A 1% lidocaine was used to anesthetize the surrounding skin over the cannulation site. A sterile ultrasound probe was brought into the field and used to verify the position of the right internal jugular vein. Under direct visualization, a finder needle was placed into the vein and a guide wire passed through it. The guidewire passed easily with no resistance. An 11 blade was brought into the field and used to widen the skin incision over the puncture site. A dilator was placed over the guidewire and used to dilate up the catheter tract. A 7-Australian triple-lumen catheter was then introduced over the guidewire and placed to a depth of approximately 14.5 cm. The guidewire was then removed and all 3 ports were aspirated with good return of venous blood. They were then flushed with sterile injectable saline. The catheter was then sutured and placed to the skin and a sterile dressing applied. The patient tolerated the procedure well. All instruments were accounted for at the end of the case. A chest x-ray was taken and is pending review. PAULA CORTEZ /[id number] MTDD
[2016-10-08 15:21] LABS: CHLORIDE,CL 127 mmol/L (98-110); SODIUM,NA 148 mmol/L (136-146)
[2016-10-08] MEDS ORDERED: Dextrose 5%-0.45% NaCl 1,000 ML IV SCH ×2 (19:00→22:03)
[2016-10-08 21:32] LABS: CHLORIDE,CL 127 mmol/L (98-110); SODIUM,NA 148 mmol/L (136-146)
[2016-10-08] MEDS: Dextrose 5% in Water 1,000 ML IV SCH (22:14)
[2016-10-08] MEDS: Potassium Chloride 40 MEQ in Sodium Chloride 0.9% 480 ML IV ONE ×2 (22:25→22:38)
[2016-10-08] MEDS ORDERED: Potassium Chloride 40 MEQ in Dextrose 5% in Water 1,000 ML IV ONE ×2 (22:37)
[2016-10-08] MEDS ORDERED: Potassium Chloride 40 MEQ in Dextrose 5% in Water 1,000 ML IV SCH ×2 (22:45)
[2016-10-09] MEDS: Pantoprazole 80 MG in Sodium Chloride 0.9% 100 ML IV SCH ×3 (00:29→21:51)
[2016-10-09 03:01] LABS: CHLORIDE,CL 121 mmol/L (98-110); SODIUM,NA 143 mmol/L (136-146)
[2016-10-09] MEDS: Ondansetron 4 MG/2 ML SDV IVPUSH PRN ×4 (03:09→21:36)
[2016-10-09] MEDS: Morphine 2 MG/ML Syringe IVPUSH PRN ×5 (03:09→21:34)
[2016-10-09 08:44] LABS: CHLORIDE,CL 114 mmol/L (98-110); SODIUM,NA 137 mmol/L (136-146)
[2016-10-09] MEDS ORDERED: Potassium Chloride 40 MEQ in Dextrose 5% in Water 1,000 ML IV ONE ×2 (09:30)
[2016-10-09] MEDS ORDERED: POTASSIUM PHOSPHATES IV ONE ×3 (09:36)
[2016-10-09] MEDS ORDERED: WATER IV ONE ×3 (09:36)
[2016-10-09] MEDS ORDERED: MAGNESIUM SULFATE IV ONE ×3 (09:36)
[2016-10-09] MEDS ORDERED: DEXTROSE 5% IV ONE ×3 (09:36)
--- NOTE | 2016-10-09 09:57 | PCM.PN ---
- General Info Date of Service: 10/09/16 Admission Dx/Problem (Free Text): Admission Diagnosis/Problem Admission Diagnosis/Problem Diabetic ketoacidosis Subjective Update: Patient continues to complain of diffuse abdominal pain. She has very little appetite and endorses nausea. She continues on insulin drip, IVF and is NPO. She remains quite sleepy and is minimally responsive to questions. Functional Status: Reports: pain controlled. Denies: tolerating diet, ambulating - Review of Systems General: Reports: Fatigue, Malaise Gastrointestinal: Reports: Abdominal pain (diffuse), Decreased appetite Neurological: Reports: Weakness Psychiatric: Reports: confusion - Patient Data Vitals - most recent: Last Vital Signs Temp 97.7 F 10/09/16 08:00 Pulse 129 H 10/08/16 07:21 Resp 25 H 10/09/16 09:00 BP 117/75 10/09/16 09:00 Pulse Ox 100 10/09/16 09:00 Weight - most recent: 105 lb 2.568 oz I&O - last 24 hours: Intake & Output 10/08/16 10/09/16 10/09/16 22:59 06:59 14:59 Intake Total 4558 1200 Output Total 4291 1241 Balance 267 -41 Lab Results last 24 hrs: Laboratory Results - last 24 hr 10/08/16 10/08/16 10/08/16 Range/Units 09:59 11:00 12:06 WBC (4.0-11.0) K/uL RBC (4.30-5.90) M/uL Hgb (12.0-16.0) g/dL Hct (36.0-46.0) % MCV (80.0-98.0) fL MCH (27.0-32.0) pg MCHC (31.0-37.0) g/dL RDW Std Deviation (28.0-62.0) fl RDW Coeff of Zak (11.0-15.0) % Plt Count (150-400) K/uL MPV (7.40-12.00) fL Neut % (Auto) (48.0-80.0) % Lymph % (Auto) (16.0-40.0) % [place] % (Auto) (0.0-15.0) % Eos % (Auto) (0.0-7.0) % Baso % (Auto) (0.0-1.5) % Neut # (Auto) (1.4-5.7) K/uL Lymph # (Auto) (0.6-2.4) K/uL [place] # (Auto) (0.0-0.8) K/uL Eos # (Auto) (0.0-0.7) K/uL Baso # (Auto) (0.0-0.1) K/uL Nucleated RBC % /100WBC Nucleated RBCs # K/uL INR (0.86-1.11) Sodium (136-146) mmol/L Potassium (3.5-5.1) mmol/L Chloride (98-110) mmol/L Carbon Dioxide (21-31) mmol/L BUN (6.0-23.0) mg/dL Creatinine (0.6-1.5) mg/dL Est Cr Clr Drug Dosing mL/min Estimated GFR (MDRD) ml/min Glucose (60-110) mg/dL POC Glucose 308 H 191 H 272 H (60-110) mg/dL Calcium (8.8-10.8) mg/dL Phosphorus (2.4-4.7) mg/dL Magnesium (1.5-2.3) mEq/L Total Bilirubin (0.1-1.5) mg/dL Direct Bilirubin (0.0-0.5) mg/dL Indirect Bilirubin (0.0-1.0) mg/dL AST (5-40) IU/L ALT (8-54) IU/L Alkaline Phosphatase (40-150) Total Protein (6.0-8.0) g/dL Albumin (3.5-5.0) g/dL Globulin (2.0-3.5) g/dL Albumin/Globulin Ratio (1.3-2.8) HCG, Qual (NEG) 10/08/16 10/08/16 10/08/16 Range/Units 13:02 14:11 14:55 WBC (4.0-11.0) K/uL RBC (4.30-5.90) M/uL Hgb (12.0-16.0) g/dL Hct (36.0-46.0) % MCV (80.0-98.0) fL MCH (27.0-32.0) pg MCHC (31.0-37.0) g/dL RDW Std Deviation (28.0-62.0) fl RDW Coeff of Zak (11.0-15.0) % Plt Count (150-400) K/uL MPV (7.40-12.00) fL Neut % (Auto) (48.0-80.0) % Lymph % (Auto) (16.0-40.0) % [place] % (Auto) (0.0-15.0) % Eos % (Auto) (0.0-7.0) % Baso % (Auto) (0.0-1.5) % Neut # (Auto) (1.4-5.7) K/uL Lymph # (Auto) (0.6-2.4) K/uL [place] # (Auto) (0.0-0.8) K/uL Eos # (Auto) (0.0-0.7) K/uL Baso # (Auto) (0.0-0.1) K/uL Nucleated RBC % /100WBC Nucleated RBCs # K/uL INR (0.86-1.11) Sodium (136-146) mmol/L Potassium (3.5-5.1) mmol/L Chloride (98-110) mmol/L Carbon Dioxide (21-31) mmol/L BUN (6.0-23.0) mg/dL Creatinine (0.6-1.5) mg/dL Est Cr Clr Drug Dosing mL/min Estimated GFR (MDRD) ml/min Glucose (60-110) mg/dL POC Glucose 327 H 337 H 302 H (60-110) mg/dL Calcium (8.8-10.8) mg/dL Phosphorus (2.4-4.7) mg/dL Magnesium (1.5-2.3) mEq/L Total Bilirubin (0.1-1.5) mg/dL Direct Bilirubin (0.0-0.5) mg/dL Indirect Bilirubin (0.0-1.0) mg/dL AST (5-40) IU/L ALT (8-54) IU/L Alkaline Phosphatase (40-150) Total Protein (6.0-8.0) g/dL Albumin (3.5-5.0) g/dL Globulin (2.0-3.5) g/dL Albumin/Globulin Ratio (1.3-2.8) HCG, Qual (NEG) 10/08/16 10/08/16 10/08/16 Range/Units 14:56 14:56 14:56 WBC (4.0-11.0) K/uL RBC (4.30-5.90) M/uL Hgb (12.0-16.0) g/dL Hct (36.0-46.0) % MCV (80.0-98.0) fL MCH (27.0-32.0) pg MCHC (31.0-37.0) g/dL RDW Std Deviation (28.0-62.0) fl RDW Coeff of Zak (11.0-15.0) % Plt Count (150-400) K/uL MPV (7.40-12.00) fL Neut % (Auto) (48.0-80.0) % Lymph % (Auto) (16.0-40.0) % [place] % (Auto) (0.0-15.0) % Eos % (Auto) (0.0-7.0) % Baso % (Auto) (0.0-1.5) % Neut # (Auto) (1.4-5.7) K/uL Lymph # (Auto) (0.6-2.4) K/uL [place] # (Auto) (0.0-0.8) K/uL Eos # (Auto) (0.0-0.7) K/uL Baso # (Auto) (0.0-0.1) K/uL Nucleated RBC % /100WBC Nucleated RBCs # K/uL INR 1.05 (0.86-1.11) Sodium 148 H (136-146) mmol/L Potassium 3.8 (3.5-5.1) mmol/L Chloride 127 H (98-110) mmol/L Carbon Dioxide < 5 L (21-31) mmol/L BUN 14 (6.0-23.0) mg/dL Creatinine 1.0 (0.6-1.5) mg/dL Est Cr Clr Drug Dosing 60.43 mL/min Estimated GFR (MDRD) > 60.0 ml/min Glucose 366 H (60-110) mg/dL POC Glucose (60-110) mg/dL Calcium 7.2 L (8.8-10.8) mg/dL Phosphorus (2.4-4.7) mg/dL Magnesium (1.5-2.3) mEq/L Total Bilirubin (0.1-1.5) mg/dL Direct Bilirubin (0.0-0.5) mg/dL Indirect Bilirubin (0.0-1.0) mg/dL AST (5-40) IU/L ALT (8-54) IU/L Alkaline Phosphatase (40-150) Total Protein (6.0-8.0) g/dL Albumin (3.5-5.0) g/dL Globulin (2.0-3.5) g/dL Albumin/Globulin Ratio (1.3-2.8) HCG, Qual NEGATIVE (NEG) 10/08/16 10/08/16 10/08/16 Range/Units 16:08 17:04 18:02 WBC (4.0-11.0) K/uL RBC (4.30-5.90) M/uL Hgb (12.0-16.0) g/dL Hct (36.0-46.0) % MCV (80.0-98.0) fL MCH (27.0-32.0) pg MCHC (31.0-37.0) g/dL RDW Std Deviation (28.0-62.0) fl RDW Coeff of Zak (11.0-15.0) % Plt Count (150-400) K/uL MPV (7.40-12.00) fL Neut % (Auto) (48.0-80.0) % Lymph % (Auto) (16.0-40.0) % [place] % (Auto) (0.0-15.0) % Eos % (Auto) (0.0-7.0) % Baso % (Auto) (0.0-1.5) % Neut # (Auto) (1.4-5.7) K/uL Lymph # (Auto) (0.6-2.4) K/uL [place] # (Auto) (0.0-0.8) K/uL Eos # (Auto) (0.0-0.7) K/uL Baso # (Auto) (0.0-0.1) K/uL Nucleated RBC % /100WBC Nucleated RBCs # K/uL INR (0.86-1.11) Sodium (136-146) mmol/L Potassium (3.5-5.1) mmol/L Chloride (98-110) mmol/L Carbon Dioxide (21-31) mmol/L BUN (6.0-23.0) mg/dL Creatinine (0.6-1.5) mg/dL Est Cr Clr Drug Dosing mL/min Estimated GFR (MDRD) ml/min Glucose (60-110) mg/dL POC Glucose 236 H 196 H 198 H (60-110) mg/dL Calcium (8.8-10.8) mg/dL Phosphorus (2.4-4.7) mg/dL Magnesium (1.5-2.3) mEq/L Total Bilirubin (0.1-1.5) mg/dL Direct Bilirubin (0.0-0.5) mg/dL Indirect Bilirubin (0.0-1.0) mg/dL AST (5-40) IU/L ALT (8-54) IU/L Alkaline Phosphatase (40-150) Total Protein (6.0-8.0) g/dL Albumin (3.5-5.0) g/dL Globulin (2.0-3.5) g/dL Albumin/Globulin Ratio (1.3-2.8) HCG, Qual (NEG) 10/08/16 10/08/16 10/08/16 Range/Units 18:55 20:04 21:06 WBC (4.0-11.0) K/uL RBC (4.30-5.90) M/uL Hgb (12.0-16.0) g/dL Hct (36.0-46.0) % MCV (80.0-98.0) fL MCH (27.0-32.0) pg MCHC (31.0-37.0) g/dL RDW Std Deviation (28.0-62.0) fl RDW Coeff of Zak (11.0-15.0) % Plt Count (150-400) K/uL MPV (7.40-12.00) fL Neut % (Auto) (48.0-80.0) % Lymph % (Auto) (16.0-40.0) % [place] % (Auto) (0.0-15.0) % Eos % (Auto) (0.0-7.0) % Baso % (Auto) (0.0-1.5) % Neut # (Auto) (1.4-5.7) K/uL Lymph # (Auto) (0.6-2.4) K/uL [place] # (Auto) (0.0-0.8) K/uL Eos # (Auto) (0.0-0.7) K/uL Baso # (Auto) (0.0-0.1) K/uL Nucleated RBC % /100WBC Nucleated RBCs # K/uL INR (0.86-1.11) Sodium 148 H (136-146) mmol/L Potassium 3.4 L (3.5-5.1) mmol/L Chloride 127 H (98-110) mmol/L Carbon Dioxide 9 L (21-31) mmol/L BUN 10 (6.0-23.0) mg/dL Creatinine 1.0 (0.6-1.5) mg/dL Est Cr Clr Drug Dosing 60.43 mL/min Estimated GFR (MDRD) > 60.0 ml/min Glucose 194 H (60-110) mg/dL POC Glucose 206 H 174 H (60-110) mg/dL Calcium 8.2 L (8.8-10.8) mg/dL Phosphorus (2.4-4.7) mg/dL Magnesium (1.5-2.3) mEq/L Total Bilirubin (0.1-1.5) mg/dL Direct Bilirubin (0.0-0.5) mg/dL Indirect Bilirubin (0.0-1.0) mg/dL AST (5-40) IU/L ALT (8-54) IU/L Alkaline Phosphatase (40-150) Total Protein (6.0-8.0) g/dL Albumin (3.5-5.0) g/dL Globulin (2.0-3.5) g/dL Albumin/Globulin Ratio (1.3-2.8) HCG, Qual (NEG) 10/08/16 10/08/16 10/08/16 Range/Units 21:10 22:12 23:05 WBC (4.0-11.0) K/uL RBC (4.30-5.90) M/uL Hgb (12.0-16.0) g/dL Hct (36.0-46.0) % MCV (80.0-98.0) fL MCH (27.0-32.0) pg MCHC (31.0-37.0) g/dL RDW Std Deviation (28.0-62.0) fl RDW Coeff of Zak (11.0-15.0) % Plt Count (150-400) K/uL MPV (7.40-12.00) fL Neut % (Auto) (48.0-80.0) % Lymph % (Auto) (16.0-40.0) % [place] % (Auto) (0.0-15.0) % Eos % (Auto) (0.0-7.0) % Baso % (Auto) (0.0-1.5) % Neut # (Auto) (1.4-5.7) K/uL Lymph # (Auto) (0.6-2.4) K/uL [place] # (Auto) (0.0-0.8) K/uL Eos # (Auto) (0.0-0.7) K/uL Baso # (Auto) (0.0-0.1) K/uL Nucleated RBC % /100WBC Nucleated RBCs # K/uL INR (0.86-1.11) Sodium (136-146) mmol/L Potassium (3.5-5.1) mmol/L Chloride (98-110) mmol/L Carbon Dioxide (21-31) mmol/L BUN (6.0-23.0) mg/dL Creatinine (0.6-1.5) mg/dL Est Cr Clr Drug Dosing mL/min Estimated GFR (MDRD) ml/min Glucose (60-110) mg/dL POC Glucose 189 H 189 H 169 H (60-110) mg/dL Calcium (8.8-10.8) mg/dL Phosphorus (2.4-4.7) mg/dL Magnesium (1.5-2.3) mEq/L Total Bilirubin (0.1-1.5) mg/dL Direct Bilirubin (0.0-0.5) mg/dL Indirect Bilirubin (0.0-1.0) mg/dL AST (5-40) IU/L ALT (8-54) IU/L Alkaline Phosphatase (40-150) Total Protein (6.0-8.0) g/dL Albumin (3.5-5.0) g/dL Globulin (2.0-3.5) g/dL Albumin/Globulin Ratio (1.3-2.8) HCG, Qual (NEG) 10/09/16 10/09/16 10/09/16 Range/Units 00:00 01:00 01:59 WBC (4.0-11.0) K/uL RBC (4.30-5.90) M/uL Hgb (12.0-16.0) g/dL Hct (36.0-46.0) % MCV (80.0-98.0) fL MCH (27.0-32.0) pg MCHC (31.0-37.0) g/dL RDW Std Deviation (28.0-62.0) fl RDW Coeff of Zak (11.0-15.0) % Plt Count (150-400) K/uL MPV (7.40-12.00) fL Neut % (Auto) (48.0-80.0) % Lymph % (Auto) (16.0-40.0) % [place] % (Auto) (0.0-15.0) % Eos % (Auto) (0.0-7.0) % Baso % (Auto) (0.0-1.5) % Neut # (Auto) (1.4-5.7) K/uL Lymph # (Auto) (0.6-2.4) K/uL [place] # (Auto) (0.0-0.8) K/uL Eos # (Auto) (0.0-0.7) K/uL Baso # (Auto) (0.0-0.1) K/uL Nucleated RBC % /100WBC Nucleated RBCs # K/uL INR (0.86-1.11) Sodium (136-146) mmol/L Potassium (3.5-5.1) mmol/L Chloride (98-110) mmol/L Carbon Dioxide (21-31) mmol/L BUN (6.0-23.0) mg/dL Creatinine (0.6-1.5) mg/dL Est Cr Clr Drug Dosing mL/min Estimated GFR (MDRD) ml/min Glucose (60-110) mg/dL POC Glucose 196 H 167 H 149 H (60-110) mg/dL Calcium (8.8-10.8) mg/dL Phosphorus (2.4-4.7) mg/dL Magnesium (1.5-2.3) mEq/L Total Bilirubin (0.1-1.5) mg/dL Direct Bilirubin (0.0-0.5) mg/dL Indirect Bilirubin (0.0-1.0) mg/dL AST (5-40) IU/L ALT (8-54) IU/L Alkaline Phosphatase (40-150) Total Protein (6.0-8.0) g/dL Albumin (3.5-5.0) g/dL Globulin (2.0-3.5) g/dL Albumin/Globulin Ratio (1.3-2.8) HCG, Qual (NEG) 10/09/16 10/09/16 10/09/16 Range/Units 02:25 02:25 02:25 WBC 11.51 H (4.0-11.0) K/uL RBC 3.64 L (4.30-5.90) M/uL Hgb 10.7 L (12.0-16.0) g/dL Hct 33.2 L (36.0-46.0) % MCV 91.2 (80.0-98.0) fL MCH 29.4 (27.0-32.0) pg MCHC 32.2 (31.0-37.0) g/dL RDW Std Deviation 47.1 (28.0-62.0) fl RDW Coeff of Zak 14 (11.0-15.0) % Plt Count 354 (150-400) K/uL MPV 9.60 (7.40-12.00) fL Neut % (Auto) 64.3 (48.0-80.0) % Lymph % (Auto) 26.2 (16.0-40.0) % [place] % (Auto) 8.9 (0.0-15.0) % Eos % (Auto) 0.3 (0.0-7.0) % Baso % (Auto) 0.3 (0.0-1.5) % Neut # (Auto) 7.4 H (1.4-5.7) K/uL Lymph # (Auto) 3.0 H (0.6-2.4) K/uL [place] # (Auto) 1.0 H (0.0-0.8) K/uL Eos # (Auto) 0.0 (0.0-0.7) K/uL Baso # (Auto) 0.0 (0.0-0.1) K/uL Nucleated RBC % 0.0 /100WBC Nucleated RBCs # 0 K/uL INR (0.86-1.11) Sodium 143 (136-146) mmol/L Potassium 3.7 (3.5-5.1) mmol/L Chloride 121 H (98-110) mmol/L Carbon Dioxide 11 L (21-31) mmol/L BUN 8 (6.0-23.0) mg/dL Creatinine 0.9 (0.6-1.5) mg/dL Est Cr Clr Drug Dosing 67.15 mL/min Estimated GFR (MDRD) > 60.0 ml/min Glucose 186 H (60-110) mg/dL POC Glucose (60-110) mg/dL Calcium 8.6 L (8.8-10.8) mg/dL Phosphorus (2.4-4.7) mg/dL Magnesium (1.5-2.3) mEq/L Total Bilirubin 0.4 (0.1-1.5) mg/dL Direct Bilirubin 0.2 (0.0-0.5) mg/dL Indirect Bilirubin 0.2 (0.0-1.0) mg/dL AST 29 (5-40) IU/L ALT 82 H (8-54) IU/L Alkaline Phosphatase 162 H (40-150) Total Protein 6.5 (6.0-8.0) g/dL Albumin 3.5 (3.5-5.0) g/dL Globulin 3.0 (2.0-3.5) g/dL Albumin/Globulin Ratio 1.2 L (1.3-2.8) HCG, Qual (NEG) 10/09/16 10/09/16 10/09/16 Range/Units 03:01 04:00 04:59 WBC (4.0-11.0) K/uL RBC (4.30-5.90) M/uL Hgb (12.0-16.0) g/dL Hct (36.0-46.0) % MCV (80.0-98.0) fL MCH (27.0-32.0) pg MCHC (31.0-37.0) g/dL RDW Std Deviation (28.0-62.0) fl RDW Coeff of Zak (11.0-15.0) % Plt Count (150-400) K/uL MPV (7.40-12.00) fL Neut % (Auto) (48.0-80.0) % Lymph % (Auto) (16.0-40.0) % [place] % (Auto) (0.0-15.0) % Eos % (Auto) (0.0-7.0) % Baso % (Auto) (0.0-1.5) % Neut # (Auto) (1.4-5.7) K/uL Lymph # (Auto) (0.6-2.4) K/uL [place] # (Auto) (0.0-0.8) K/uL Eos # (Auto) (0.0-0.7) K/uL Baso # (Auto) (0.0-0.1) K/uL Nucleated RBC % /100WBC Nucleated RBCs # K/uL INR (0.86-1.11) Sodium (136-146) mmol/L Potassium (3.5-5.1) mmol/L Chloride (98-110) mmol/L Carbon Dioxide (21-31) mmol/L BUN (6.0-23.0) mg/dL Creatinine (0.6-1.5) mg/dL Est Cr Clr Drug Dosing mL/min Estimated GFR (MDRD) ml/min Glucose (60-110) mg/dL POC Glucose 200 H 180 H 161 H (60-110) mg/dL Calcium (8.8-10.8) mg/dL Phosphorus (2.4-4.7) mg/dL Magnesium (1.5-2.3) mEq/L Total Bilirubin (0.1-1.5) mg/dL Direct Bilirubin (0.0-0.5) mg/dL Indirect Bilirubin (0.0-1.0) mg/dL AST (5-40) IU/L ALT (8-54) IU/L Alkaline Phosphatase (40-150) Total Protein (6.0-8.0) g/dL Albumin (3.5-5.0) g/dL Globulin (2.0-3.5) g/dL Albumin/Globulin Ratio (1.3-2.8) HCG, Qual (NEG) 10/09/16 10/09/16 10/09/16 Range/Units 06:02 07:10 08:06 WBC (4.0-11.0) K/uL RBC (4.30-5.90) M/uL Hgb (12.0-16.0) g/dL Hct (36.0-46.0) % MCV (80.0-98.0) fL MCH (27.0-32.0) pg MCHC (31.0-37.0) g/dL RDW Std Deviation (28.0-62.0) fl RDW Coeff of Zak (11.0-15.0) % Plt Count (150-400) K/uL MPV (7.40-12.00) fL Neut % (Auto) (48.0-80.0) % Lymph % (Auto) (16.0-40.0) % [place] % (Auto) (0.0-15.0) % Eos % (Auto) (0.0-7.0) % Baso % (Auto) (0.0-1.5) % Neut # (Auto) (1.4-5.7) K/uL Lymph # (Auto) (0.6-2.4) K/uL [place] # (Auto) (0.0-0.8) K/uL Eos # (Auto) (0.0-0.7) K/uL Baso # (Auto) (0.0-0.1) K/uL Nucleated RBC % /100WBC Nucleated RBCs # K/uL INR (0.86-1.11) Sodium 137 (136-146) mmol/L Potassium 3.3 L (3.5-5.1) mmol/L Chloride 114 H (98-110) mmol/L Carbon Dioxide 12 L (21-31) mmol/L BUN 6 (6.0-23.0) mg/dL Creatinine 0.8 (0.6-1.5) mg/dL Est Cr Clr Drug Dosing 75.87 mL/min Estimated GFR (MDRD) > 60.0 ml/min Glucose 212 H (60-110) mg/dL POC Glucose 169 H 165 H (60-110) mg/dL Calcium 8.5 L (8.8-10.8) mg/dL Phosphorus 1.1 L (2.4-4.7) mg/dL Magnesium 1.2 L (1.5-2.3) mEq/L Total Bilirubin (0.1-1.5) mg/dL Direct Bilirubin (0.0-0.5) mg/dL Indirect Bilirubin (0.0-1.0) mg/dL AST (5-40) IU/L ALT (8-54) IU/L Alkaline Phosphatase (40-150) Total Protein (6.0-8.0) g/dL Albumin (3.5-5.0) g/dL Globulin (2.0-3.5) g/dL Albumin/Globulin Ratio (1.3-2.8) HCG, Qual (NEG) 10/09/16 10/09/16 Range/Units 08:08 09:03 WBC (4.0-11.0) K/uL RBC (4.30-5.90) M/uL Hgb (12.0-16.0) g/dL Hct (36.0-46.0) % MCV (80.0-98.0) fL MCH (27.0-32.0) pg MCHC (31.0-37.0) g/dL RDW Std Deviation (28.0-62.0) fl RDW Coeff of Zak (11.0-15.0) % Plt Count (150-400) K/uL MPV (7.40-12.00) fL Neut % (Auto) (48.0-80.0) % Lymph % (Auto) (16.0-40.0) % [place] % (Auto) (0.0-15.0) % Eos % (Auto) (0.0-7.0) % Baso % (Auto) (0.0-1.5) % Neut # (Auto) (1.4-5.7) K/uL Lymph # (Auto) (0.6-2.4) K/uL [place] # (Auto) (0.0-0.8) K/uL Eos # (Auto) (0.0-0.7) K/uL Baso # (Auto) (0.0-0.1) K/uL Nucleated RBC % /100WBC Nucleated RBCs # K/uL INR (0.86-1.11) Sodium (136-146) mmol/L Potassium (3.5-5.1) mmol/L Chloride (98-110) mmol/L Carbon Dioxide (21-31) mmol/L BUN (6.0-23.0) mg/dL Creatinine (0.6-1.5) mg/dL Est Cr Clr Drug Dosing mL/min Estimated GFR (MDRD) ml/min Glucose (60-110) mg/dL POC Glucose 202 H 135 H (60-110) mg/dL Calcium (8.8-10.8) mg/dL Phosphorus (2.4-4.7) mg/dL Magnesium (1.5-2.3) mEq/L Total Bilirubin (0.1-1.5) mg/dL Direct Bilirubin (0.0-0.5) mg/dL Indirect Bilirubin (0.0-1.0) mg/dL AST (5-40) IU/L ALT (8-54) IU/L Alkaline Phosphatase (40-150) Total Protein (6.0-8.0) g/dL Albumin (3.5-5.0) g/dL Globulin (2.0-3.5) g/dL Albumin/Globulin Ratio (1.3-2.8) HCG, Qual (NEG) Med Orders - Current: Current Medications Insulin Human Regular 100 unit (/ Sodium Chloride) 100 mls @ 8 mls/hr IV TITRATE PIPPA; 8 UNIT/HR PRN Reason: Protocol Last Titration: 10/09/16 09:05 Dose: 2 unit/hr, 2 mls/hr Pantoprazole Sodium 80 mg/ (Sodium Chloride) 100 mls @ 10 mls/hr IV Q10H PIPPA Last Admin: 10/09/16 00:29 Dose: 10 mls/hr Dextrose/Water (Dextrose 5% In Water) 1,000 mls @ 175 mls/hr IV ASDIRECTED PIPPA Last Infusion: 10/09/16 04:48 Dose: 175 mls/hr Potassium Phosphate 27 mmole/Magnesium Sulfate 4 gm/Dextrose/Water 1,017 mls @ 250 mls/hr IV ASDIRECTED ONE Stop: 10/09/16 13:40 Lorazepam (Ativan) 1 mg IVPUSH Q4H PRN PRN Reason: Agitation Last Admin: 10/08/16 14:15 Dose: 1 mg Ondansetron HCl (Zofran) 4 mg IVPUSH Q4H PRN PRN Reason: Nausea Last Admin: 10/09/16 03:09 Dose: 4 mg Discontinued Medications Hydrocodone Bitart/Acetaminophen ([place] 325-5 Mg) 1 tab PO ONETIME ONE Stop: 10/08/16 05:00 Last Admin: 10/08/16 06:23 Dose: Not Given Sodium Chloride (Normal Saline) 3,000 mls @ 999 mls/hr IV .Bolus ONE Stop: 10/08/16 06:56 Last Admin: 10/08/16 04:15 Dose: 999 mls/hr Insulin Human Regular 100 unit (/ Sodium Chloride) 100 mls @ 4.53 mls/hr IV TITRATE PIPPA; 0.1 UNIT/KG/HR PRN Reason: Protocol Last Titration: 10/08/16 07:40 Dose: 0.08 unit/kg/hr, 4 mls/hr Potassium Chloride/Sodium Chloride (Normal Saline With 40 Meq Kcl) 500 mls @ 125 mls/hr IV NOW STA Stop: 10/08/16 10:19 Last Admin: 10/08/16 08:28 Dose: Not Given Potassium Chloride 40 meq/ (Sodium Chloride) 520 mls @ 500 mls/hr IV NOW ONE Stop: 10/08/16 07:32 Last Admin: 10/08/16 06:47 Dose: 500 mls/hr Sodium Chloride (Normal Saline) 1,000 mls @ 200 mls/hr IV ASDIRECTED PIPPA Last Admin: 10/08/16 08:38 Dose: 200 mls/hr Pantoprazole Sodium 40 mg/ (Sodium Chloride) 10 mls @ 300 mls/hr IVPUSH DAILY PIPPA Last Admin: 10/08/16 10:31 Dose: 300 mls/hr Dextrose/Sodium Chloride (Dextrose 5%-Normal Saline) 1,000 mls @ 150 mls/hr IV ASDIRECTED PIPPA Last Admin: 10/08/16 12:00 Dose: 150 mls/hr Sodium Chloride (Normal Saline) 1,000 mls @ 999 mls/hr IV ASDIRECTED PIPPA Last Admin: 10/08/16 14:20 Dose: 999 mls/hr Dextrose/Sodium Chloride (Dextrose 5%-1/2 Ns) 1,000 mls @ 125 mls/hr IV ASDIRECTED PIPPA Last Admin: 10/08/16 18:54 Dose: 125 mls/hr Dextrose/Sodium Chloride (Dextrose 5%-Normal Saline) 1,000 mls @ 125 mls/hr IV ASDIRECTED PIPPA Potassium Chloride 40 meq/ (Sodium Chloride) 500 mls @ 125 mls/hr IV ONETIME ONE Stop: 10/09/16 02:00 Last Admin: 10/08/16 22:38 Dose: Not Given Dextrose/Sodium Chloride (Dextrose 5%-1/2 Ns) 1,000 mls @ 175 mls/hr IV ASDIRECTED PIPPA Potassium Chloride 40 meq/ (Dextrose/Water) 1,020 mls @ 175 mls/hr IV ASDIRECTED PIPPA Potassium Chloride 40 meq/ (Dextrose/Water) 1,020 mls @ 175 mls/hr IV ONETIME ONE Stop: 10/09/16 04:26 Last Admin: 10/08/16 22:57 Dose: 175 mls/hr Potassium Chloride 40 meq/ (Dextrose/Water) 1,020 mls @ 175 mls/hr IV ASDIRECTED ONE Stop: 10/09/16 15:19 Last Admin: 10/09/16 09:40 Dose: Not Given Lorazepam (Ativan) 0.5 mg IVPUSH STAT STA Stop: 10/08/16 05:59 Last Admin: 10/08/16 06:00 Dose: 0.5 mg Lorazepam (Ativan) 0.5 mg IVPUSH ONETIME ONE Stop: 10/08/16 06:00 Last Admin: 10/08/16 06:00 Dose: 0.5 mg Lorazepam (Ativan) 1 mg IVPUSH ONETIME ONE Stop: 10/08/16 06:54 Last Admin: 10/08/16 07:00 Dose: 1 mg Morphine Sulfate (Morphine) 2 mg IVPUSH Q4H PRN PRN Reason: Pain (severe 7-10) Stop: 10/09/16 08:39 Last Admin: 10/09/16 07:08 Dose: 2 mg Ondansetron HCl (Zofran) 4 mg IVPUSH ONETIME ONE Stop: 10/08/16 04:56 Last Admin: 10/08/16 05:09 Dose: 4 mg Potassium Bicarbonate (Klor-Con Ef) 50 meq PO DAILY PIPPA Potassium Bicarbonate (Klor-Con Ef) 40 meq PO DAILY PIPPA Last Admin: 10/08/16 10:19 Dose: Not Given Potassium Chloride (Klor-Con M20) 40 meq PO ONETIME ONE Stop: 10/08/16 05:48 Last Admin: 10/08/16 08:27 Dose: Not Given - Exam Quality Assessment: central line/PICC (Right IVJ), DVT prophylaxis (SCD's). No : supplemental oxygen, urine catheter General: mild distress, obtunded, other (sleepy) Lungs: Clear to auscultation, Normal respiratory effort Cardiovascular: Regular Rhythm, Tachycardia (101) Abdomen: bowel sounds present, soft, no distension, tenderness (diffuse with palpation) Extremities: no edema Peripheral Pulses: 2+: radial (L), radial (R) Skin: warm, dry, intact Psy/Mental Status: other (flat affect. Intermittenly responds to questions. ) - Problem List & Annotations (1) Altered mental status SNOMED Code(s): 158691143 Code(s): R41.82 - ALTERED MENTAL STATUS, UNSPECIFIED Status: Acute Current Visit: Yes (2) Diabetic ketoacidosis SNOMED Code(s): 935818863, 427246522 Code(s): E13.10 - OTH DIABETES MELLITUS WITH KETOACIDOSIS WITHOUT COMA Status: Acute Current Visit: Yes (3) Abdominal pain SNOMED Code(s): 10031475 Code(s): R10.9 - UNSPECIFIED ABDOMINAL PAIN Status: Acute Current Visit: No - Problem List Review Problem List Initiated/Reviewed/Updated: Yes - My Orders Last 24 Hours: My Active Orders 10/09/16 09:36 Potassium Phosphates 27 mmole Magnesium Sulfate [Magnesium Sulfate 50%] 4 gm Dextrose 5% in Water 1,000 ml IV ASDIRECTED 10/09/16 14:00 BASIC METABOLIC PANEL,BMP [CHEM] Q6H 10/09/16 20:00 BASIC METABOLIC PANEL,BMP [CHEM] Q6H 10/10/16 02:00 BASIC METABOLIC PANEL,BMP [CHEM] Q6H 10/10/16 05:11 MAGNESIUM [CHEM] AM PHOSPHORUS [CHEM] AM 10/10/16 08:00 BASIC METABOLIC PANEL,BMP [CHEM] Q6H - Plan Plan:: 1. DKA: -continue insulin drip with IVF (D5 with water). Will transition to SQ insulin once bicarb is >18 and patient is eating. -BMP q6hrs (monitoring anion gap and bicarb). Current Bicarb is 11. -patient is NPO 2. Chronic abdominal pain: -morphine 2mg IV q4 PRN 2. Electrolyte abnormalities (Potassium, magnesium, phosphorus): -replaced and will re-check in AM
--- NOTE | 2016-10-09 10:56 | CR ---
EXAM DATE: 10/08/16 PATIENT'S AGE: 26 Patient: ALEXSANDER HINKLE Facility: [place], [place] Site . Site : 1990 Study: XRay Chest [id number]/9/2017 5:53:55 AM Ordering Physician: Doctor Ang Final Report: Indication: Diabetic ketoacidosis Technique: Chest 1 view. Comparison: September 16, 2016 Findings: Cardiovascular and mediastinum: Heart size and vasculature are normal in caliber and appearance. Mediastinum is within normal limits. Lungs and pleural space: Lungs are clear. No sign of infiltrate or mass. No sign of pleural effusion. No pneumothorax. Bones and soft tissues: No significant findings. Impression: No sign of acute disease. Dictated by Felipa Ronquillo MD @ Oct 08 2016 6:01AM (Electronic Signature) Report Signed by Proxy and Original Signed Document filed in the Medical Record. SABID
--- NOTE | 2016-10-09 11:01 | CR ---
EXAM DATE: 10/08/16 PATIENT'S AGE: 26 Patient: ALEXSANDER HINKLE Facility: [place], [place] Site . Site : 1990 Study: XRay Chest [id number]/9/2017 11:04:00 AM Ordering Physician: Fanny Burr Final Report: INDICATION: Right central line placement. Technique: AP portable chest x-ray. Comparison : Chest x-ray earlier today. Findings: Right central line has been placed with tip at the low SVC/RA junction. No pneumothorax. Heart size normal. Patient rotated to the right. No focal infiltrate or consolidation in either lung. Remainder negative. Dictated by Grzegorz Garcia MD @ Oct 08 2016 11:05AM (Electronic Signature) Report Signed by Proxy and Original Signed Document filed in the Medical Record. [email or web address]
[2016-10-09] MEDS: Dextrose 5% in Water 1,000 ML IV SCH ×2 (13:47→19:51)
[2016-10-09 14:30] LABS: CHLORIDE,CL 113 mmol/L (98-110); SODIUM,NA 138 mmol/L (136-146)
[2016-10-09 20:30] LABS: CHLORIDE,CL 113 mmol/L (98-110); SODIUM,NA 138 mmol/L (136-146)
[2016-10-09] MEDS ORDERED: Potassium Chloride 20 MEQ Tab.ER PO ONE (21:05)
[2016-10-09] MEDS ORDERED: Sodium Chloride 0.9% with KCl 500 ML IV SCH (21:30)
[2016-10-09] MEDS: Potassium Chloride 40 MEQ in Sodium Chloride 0.9% 480 ML IV ONE (21:46)
[2016-10-09] MEDS: LORazepam 2 MG/ML MDV IVPUSH PRN (23:12)
[2016-10-10] MEDS: Morphine 2 MG/ML Syringe IVPUSH PRN ×3 (01:44→09:59)
[2016-10-10] MEDS: Ondansetron 4 MG/2 ML SDV IVPUSH PRN ×3 (01:45→09:58)
[2016-10-10 02:37] LABS: CHLORIDE,CL 114 mmol/L (98-110); SODIUM,NA 138 mmol/L (136-146)
[2016-10-10] MEDS: diphenhydrAMINE 50 MG/ML SDV IVPUSH PRN ×3 (03:03→20:40)
[2016-10-10] MEDS: Dextrose 5% in Water 1,000 ML IV SCH ×3 (05:55→23:38)
[2016-10-10 08:50] LABS: CHLORIDE,CL 110 mmol/L (98-110); SODIUM,NA 136 mmol/L (136-146)
[2016-10-10] MEDS: Pantoprazole 80 MG in Sodium Chloride 0.9% 100 ML IV SCH ×2 (08:54→17:37)
--- NOTE | 2016-10-10 09:10 | PCM.PN ---
- General Info Date of Service: 10/10/16 Admission Dx/Problem (Free Text): Admission Diagnosis/Problem Admission Diagnosis/Problem Diabetic ketoacidosis Subjective Update: Patient continues to complain of diffuse abdominal pain. She has very little appetite and endorses nausea. She continues on insulin drip, IVF and is NPO. Patient is more alert this morning and answering questions appropriately. She is very tearful, stating that the IV morphine that she is receiving is not controlling her abdominal pain. She also states that the morphine is making her itchy. Benadryl has been added to counteract this. Potassium was low last night at 2.9. She received a PO dose of KCl 40mEq. She did receive a dose of ativan last night secondary to restlessness. She denies any chest pain, shortness of breath. Functional Status: Reports: urinating - Review of Systems General: Reports: No Symptoms HEENT: Reports: no symptoms Pulmonary: Reports: no symptoms Cardiovascular: Reports: No Symptoms Gastrointestinal: Reports: Abdominal pain (diffuse), Decreased appetite, Nausea. Denies: Vomiting Genitourinary: Reports: no symptoms Musculoskeletal: Reports: no symptoms Skin: Reports: no symptoms Neurological: Reports: No Symptoms Psychiatric: Reports: no symptoms - Patient Data Vitals - most recent: Last Vital Signs Temp 98.5 F 10/10/16 07:00 Pulse 99 10/10/16 07:00 Resp 22 H 10/10/16 07:00 BP 106/72 10/10/16 07:00 Pulse Ox 100 10/10/16 07:00 Weight - most recent: 105 lb 2.568 oz I&O - last 24 hours: Intake & Output 10/09/16 10/10/16 10/10/16 22:59 06:59 14:59 Intake Total 1000 Output Total 325 1725 Balance -325 -725 Lab Results last 24 hrs: Laboratory Results - last 24 hr 10/09/16 10/09/16 10/09/16 Range/Units 09:58 11:02 12:00 WBC (4.0-11.0) K/uL RBC (4.30-5.90) M/uL Hgb (12.0-16.0) g/dL Hct (36.0-46.0) % MCV (80.0-98.0) fL MCH (27.0-32.0) pg MCHC (31.0-37.0) g/dL RDW Std Deviation (28.0-62.0) fl RDW Coeff of Zak (11.0-15.0) % Plt Count (150-400) K/uL MPV (7.40-12.00) fL Neut % (Auto) (48.0-80.0) % Lymph % (Auto) (16.0-40.0) % Knox % (Auto) (0.0-15.0) % Eos % (Auto) (0.0-7.0) % Baso % (Auto) (0.0-1.5) % Neut # (Auto) (1.4-5.7) K/uL Lymph # (Auto) (0.6-2.4) K/uL Knox # (Auto) (0.0-0.8) K/uL Eos # (Auto) (0.0-0.7) K/uL Baso # (Auto) (0.0-0.1) K/uL Nucleated RBC % /100WBC Nucleated RBCs # K/uL Sodium (136-146) mmol/L Potassium (3.5-5.1) mmol/L Chloride (98-110) mmol/L Carbon Dioxide (21-31) mmol/L BUN (6.0-23.0) mg/dL Creatinine (0.6-1.5) mg/dL Est Cr Clr Drug Dosing mL/min Estimated GFR (MDRD) ml/min Glucose (60-110) mg/dL POC Glucose 113 H 178 H 170 H (60-110) mg/dL Calcium (8.8-10.8) mg/dL Phosphorus (2.4-4.7) mg/dL Magnesium (1.5-2.3) mEq/L Total Bilirubin (0.1-1.5) mg/dL Direct Bilirubin (0.0-0.5) mg/dL Indirect Bilirubin (0.0-1.0) mg/dL AST (5-40) IU/L ALT (8-54) IU/L Alkaline Phosphatase (40-150) Total Protein (6.0-8.0) g/dL Albumin (3.5-5.0) g/dL Globulin (2.0-3.5) g/dL Albumin/Globulin Ratio (1.3-2.8) Ketones (NEG) 10/09/16 10/09/16 10/09/16 Range/Units 13:03 14:00 14:00 WBC (4.0-11.0) K/uL RBC (4.30-5.90) M/uL Hgb (12.0-16.0) g/dL Hct (36.0-46.0) % MCV (80.0-98.0) fL MCH (27.0-32.0) pg MCHC (31.0-37.0) g/dL RDW Std Deviation (28.0-62.0) fl RDW Coeff of Zak (11.0-15.0) % Plt Count (150-400) K/uL MPV (7.40-12.00) fL Neut % (Auto) (48.0-80.0) % Lymph % (Auto) (16.0-40.0) % Knox % (Auto) (0.0-15.0) % Eos % (Auto) (0.0-7.0) % Baso % (Auto) (0.0-1.5) % Neut # (Auto) (1.4-5.7) K/uL Lymph # (Auto) (0.6-2.4) K/uL Knox # (Auto) (0.0-0.8) K/uL Eos # (Auto) (0.0-0.7) K/uL Baso # (Auto) (0.0-0.1) K/uL Nucleated RBC % /100WBC Nucleated RBCs # K/uL Sodium 138 (136-146) mmol/L Potassium 3.3 L (3.5-5.1) mmol/L Chloride 113 H (98-110) mmol/L Carbon Dioxide 14 L (21-31) mmol/L BUN 4 L (6.0-23.0) mg/dL Creatinine 0.7 (0.6-1.5) mg/dL Est Cr Clr Drug Dosing 86.71 mL/min Estimated GFR (MDRD) > 60.0 ml/min Glucose 161 H (60-110) mg/dL POC Glucose 177 H (60-110) mg/dL Calcium 8.4 L (8.8-10.8) mg/dL Phosphorus (2.4-4.7) mg/dL Magnesium (1.5-2.3) mEq/L Total Bilirubin (0.1-1.5) mg/dL Direct Bilirubin (0.0-0.5) mg/dL Indirect Bilirubin (0.0-1.0) mg/dL AST (5-40) IU/L ALT (8-54) IU/L Alkaline Phosphatase (40-150) Total Protein (6.0-8.0) g/dL Albumin (3.5-5.0) g/dL Globulin (2.0-3.5) g/dL Albumin/Globulin Ratio (1.3-2.8) Ketones NEGATIVE (NEG) 10/09/16 10/09/16 10/09/16 Range/Units 14:03 15:02 16:10 WBC (4.0-11.0) K/uL RBC (4.30-5.90) M/uL Hgb (12.0-16.0) g/dL Hct (36.0-46.0) % MCV (80.0-98.0) fL MCH (27.0-32.0) pg MCHC (31.0-37.0) g/dL RDW Std Deviation (28.0-62.0) fl RDW Coeff of Zak (11.0-15.0) % Plt Count (150-400) K/uL MPV (7.40-12.00) fL Neut % (Auto) (48.0-80.0) % Lymph % (Auto) (16.0-40.0) % Knox % (Auto) (0.0-15.0) % Eos % (Auto) (0.0-7.0) % Baso % (Auto) (0.0-1.5) % Neut # (Auto) (1.4-5.7) K/uL Lymph # (Auto) (0.6-2.4) K/uL Knox # (Auto) (0.0-0.8) K/uL Eos # (Auto) (0.0-0.7) K/uL Baso # (Auto) (0.0-0.1) K/uL Nucleated RBC % /100WBC Nucleated RBCs # K/uL Sodium (136-146) mmol/L Potassium (3.5-5.1) mmol/L Chloride (98-110) mmol/L Carbon Dioxide (21-31) mmol/L BUN (6.0-23.0) mg/dL Creatinine (0.6-1.5) mg/dL Est Cr Clr Drug Dosing mL/min Estimated GFR (MDRD) ml/min Glucose (60-110) mg/dL POC Glucose 160 H 129 H 168 H (60-110) mg/dL Calcium (8.8-10.8) mg/dL Phosphorus (2.4-4.7) mg/dL Magnesium (1.5-2.3) mEq/L Total Bilirubin (0.1-1.5) mg/dL Direct Bilirubin (0.0-0.5) mg/dL Indirect Bilirubin (0.0-1.0) mg/dL AST (5-40) IU/L ALT (8-54) IU/L Alkaline Phosphatase (40-150) Total Protein (6.0-8.0) g/dL Albumin (3.5-5.0) g/dL Globulin (2.0-3.5) g/dL Albumin/Globulin Ratio (1.3-2.8) Ketones (NEG) 10/09/16 10/09/16 10/09/16 Range/Units 17:15 18:07 19:15 WBC (4.0-11.0) K/uL RBC (4.30-5.90) M/uL Hgb (12.0-16.0) g/dL Hct (36.0-46.0) % MCV (80.0-98.0) fL MCH (27.0-32.0) pg MCHC (31.0-37.0) g/dL RDW Std Deviation (28.0-62.0) fl RDW Coeff of Zak (11.0-15.0) % Plt Count (150-400) K/uL MPV (7.40-12.00) fL Neut % (Auto) (48.0-80.0) % Lymph % (Auto) (16.0-40.0) % Knox % (Auto) (0.0-15.0) % Eos % (Auto) (0.0-7.0) % Baso % (Auto) (0.0-1.5) % Neut # (Auto) (1.4-5.7) K/uL Lymph # (Auto) (0.6-2.4) K/uL Knox # (Auto) (0.0-0.8) K/uL Eos # (Auto) (0.0-0.7) K/uL Baso # (Auto) (0.0-0.1) K/uL Nucleated RBC % /100WBC Nucleated RBCs # K/uL Sodium (136-146) mmol/L Potassium (3.5-5.1) mmol/L Chloride (98-110) mmol/L Carbon Dioxide (21-31) mmol/L BUN (6.0-23.0) mg/dL Creatinine (0.6-1.5) mg/dL Est Cr Clr Drug Dosing mL/min Estimated GFR (MDRD) ml/min Glucose (60-110) mg/dL POC Glucose 152 H 144 H 174 H (60-110) mg/dL Calcium (8.8-10.8) mg/dL Phosphorus (2.4-4.7) mg/dL Magnesium (1.5-2.3) mEq/L Total Bilirubin (0.1-1.5) mg/dL Direct Bilirubin (0.0-0.5) mg/dL Indirect Bilirubin (0.0-1.0) mg/dL AST (5-40) IU/L ALT (8-54) IU/L Alkaline Phosphatase (40-150) Total Protein (6.0-8.0) g/dL Albumin (3.5-5.0) g/dL Globulin (2.0-3.5) g/dL Albumin/Globulin Ratio (1.3-2.8) Ketones (NEG) 10/09/16 10/09/16 10/09/16 Range/Units 20:04 20:10 21:39 WBC (4.0-11.0) K/uL RBC (4.30-5.90) M/uL Hgb (12.0-16.0) g/dL Hct (36.0-46.0) % MCV (80.0-98.0) fL MCH (27.0-32.0) pg MCHC (31.0-37.0) g/dL RDW Std Deviation (28.0-62.0) fl RDW Coeff of Zak (11.0-15.0) % Plt Count (150-400) K/uL MPV (7.40-12.00) fL Neut % (Auto) (48.0-80.0) % Lymph % (Auto) (16.0-40.0) % Knox % (Auto) (0.0-15.0) % Eos % (Auto) (0.0-7.0) % Baso % (Auto) (0.0-1.5) % Neut # (Auto) (1.4-5.7) K/uL Lymph # (Auto) (0.6-2.4) K/uL Knox # (Auto) (0.0-0.8) K/uL Eos # (Auto) (0.0-0.7) K/uL Baso # (Auto) (0.0-0.1) K/uL Nucleated RBC % /100WBC Nucleated RBCs # K/uL Sodium 138 (136-146) mmol/L Potassium 2.9 L (3.5-5.1) mmol/L Chloride 113 H (98-110) mmol/L Carbon Dioxide 14 L (21-31) mmol/L BUN 3 L (6.0-23.0) mg/dL Creatinine 0.7 (0.6-1.5) mg/dL Est Cr Clr Drug Dosing 86.33 mL/min Estimated GFR (MDRD) > 60.0 ml/min Glucose 150 H (60-110) mg/dL POC Glucose 148 H 207 H (60-110) mg/dL Calcium 8.4 L (8.8-10.8) mg/dL Phosphorus (2.4-4.7) mg/dL Magnesium (1.5-2.3) mEq/L Total Bilirubin (0.1-1.5) mg/dL Direct Bilirubin (0.0-0.5) mg/dL Indirect Bilirubin (0.0-1.0) mg/dL AST (5-40) IU/L ALT (8-54) IU/L Alkaline Phosphatase (40-150) Total Protein (6.0-8.0) g/dL Albumin (3.5-5.0) g/dL Globulin (2.0-3.5) g/dL Albumin/Globulin Ratio (1.3-2.8) Ketones (NEG) 10/09/16 10/09/16 10/10/16 Range/Units 22:42 23:37 00:34 WBC (4.0-11.0) K/uL RBC (4.30-5.90) M/uL Hgb (12.0-16.0) g/dL Hct (36.0-46.0) % MCV (80.0-98.0) fL MCH (27.0-32.0) pg MCHC (31.0-37.0) g/dL RDW Std Deviation (28.0-62.0) fl RDW Coeff of Zak (11.0-15.0) % Plt Count (150-400) K/uL MPV (7.40-12.00) fL Neut % (Auto) (48.0-80.0) % Lymph % (Auto) (16.0-40.0) % Knox % (Auto) (0.0-15.0) % Eos % (Auto) (0.0-7.0) % Baso % (Auto) (0.0-1.5) % Neut # (Auto) (1.4-5.7) K/uL Lymph # (Auto) (0.6-2.4) K/uL Knox # (Auto) (0.0-0.8) K/uL Eos # (Auto) (0.0-0.7) K/uL Baso # (Auto) (0.0-0.1) K/uL Nucleated RBC % /100WBC Nucleated RBCs # K/uL Sodium (136-146) mmol/L Potassium (3.5-5.1) mmol/L Chloride (98-110) mmol/L Carbon Dioxide (21-31) mmol/L BUN (6.0-23.0) mg/dL Creatinine (0.6-1.5) mg/dL Est Cr Clr Drug Dosing mL/min Estimated GFR (MDRD) ml/min Glucose (60-110) mg/dL POC Glucose 152 H 91 138 H (60-110) mg/dL Calcium (8.8-10.8) mg/dL Phosphorus (2.4-4.7) mg/dL Magnesium (1.5-2.3) mEq/L Total Bilirubin (0.1-1.5) mg/dL Direct Bilirubin (0.0-0.5) mg/dL Indirect Bilirubin (0.0-1.0) mg/dL AST (5-40) IU/L ALT (8-54) IU/L Alkaline Phosphatase (40-150) Total Protein (6.0-8.0) g/dL Albumin (3.5-5.0) g/dL Globulin (2.0-3.5) g/dL Albumin/Globulin Ratio (1.3-2.8) Ketones (NEG) 10/10/16 10/10/16 10/10/16 Range/Units 01:29 02:10 02:10 WBC 6.65 (4.0-11.0) K/uL RBC 3.91 L (4.30-5.90) M/uL Hgb 11.5 L (12.0-16.0) g/dL Hct 35.0 L (36.0-46.0) % MCV 89.5 (80.0-98.0) fL MCH 29.4 (27.0-32.0) pg MCHC 32.9 (31.0-37.0) g/dL RDW Std Deviation 46.2 (28.0-62.0) fl RDW Coeff of Zak 14 (11.0-15.0) % Plt Count 315 (150-400) K/uL MPV 9.30 (7.40-12.00) fL Neut % (Auto) 61.3 (48.0-80.0) % Lymph % (Auto) 29.8 (16.0-40.0) % Knox % (Auto) 6.0 (0.0-15.0) % Eos % (Auto) 2.4 (0.0-7.0) % Baso % (Auto) 0.5 (0.0-1.5) % Neut # (Auto) 4.1 (1.4-5.7) K/uL Lymph # (Auto) 2.0 (0.6-2.4) K/uL Knox # (Auto) 0.4 (0.0-0.8) K/uL Eos # (Auto) 0.2 (0.0-0.7) K/uL Baso # (Auto) 0.0 (0.0-0.1) K/uL Nucleated RBC % 0.0 /100WBC Nucleated RBCs # 0 K/uL Sodium (136-146) mmol/L Potassium (3.5-5.1) mmol/L Chloride (98-110) mmol/L Carbon Dioxide (21-31) mmol/L BUN (6.0-23.0) mg/dL Creatinine (0.6-1.5) mg/dL Est Cr Clr Drug Dosing mL/min Estimated GFR (MDRD) ml/min Glucose (60-110) mg/dL POC Glucose 165 H (60-110) mg/dL Calcium (8.8-10.8) mg/dL Phosphorus 1.3 L (2.4-4.7) mg/dL Magnesium 1.6 (1.5-2.3) mEq/L Total Bilirubin 0.7 (0.1-1.5) mg/dL Direct Bilirubin 0.3 (0.0-0.5) mg/dL Indirect Bilirubin 0.4 (0.0-1.0) mg/dL AST 55 H (5-40) IU/L ALT 78 H (8-54) IU/L Alkaline Phosphatase 161 H (40-150) Total Protein 6.3 (6.0-8.0) g/dL Albumin 3.6 (3.5-5.0) g/dL Globulin 2.7 (2.0-3.5) g/dL Albumin/Globulin Ratio 1.3 (1.3-2.8) Ketones (NEG) 10/10/16 10/10/16 10/10/16 Range/Units 02:10 02:28 03:37 WBC (4.0-11.0) K/uL RBC (4.30-5.90) M/uL Hgb (12.0-16.0) g/dL Hct (36.0-46.0) % MCV (80.0-98.0) fL MCH (27.0-32.0) pg MCHC (31.0-37.0) g/dL RDW Std Deviation (28.0-62.0) fl RDW Coeff of Zak (11.0-15.0) % Plt Count (150-400) K/uL MPV (7.40-12.00) fL Neut % (Auto) (48.0-80.0) % Lymph % (Auto) (16.0-40.0) % Knox % (Auto) (0.0-15.0) % Eos % (Auto) (0.0-7.0) % Baso % (Auto) (0.0-1.5) % Neut # (Auto) (1.4-5.7) K/uL Lymph # (Auto) (0.6-2.4) K/uL Knox # (Auto) (0.0-0.8) K/uL Eos # (Auto) (0.0-0.7) K/uL Baso # (Auto) (0.0-0.1) K/uL Nucleated RBC % /100WBC Nucleated RBCs # K/uL Sodium 138 (136-146) mmol/L Potassium 4.3 (3.5-5.1) mmol/L Chloride 114 H (98-110) mmol/L Carbon Dioxide 14 L (21-31) mmol/L BUN 3 L (6.0-23.0) mg/dL Creatinine 0.7 (0.6-1.5) mg/dL Est Cr Clr Drug Dosing 86.33 mL/min Estimated GFR (MDRD) > 60.0 ml/min Glucose 146 H (60-110) mg/dL POC Glucose 162 H 156 H (60-110) mg/dL Calcium 8.4 L (8.8-10.8) mg/dL Phosphorus (2.4-4.7) mg/dL Magnesium (1.5-2.3) mEq/L Total Bilirubin (0.1-1.5) mg/dL Direct Bilirubin (0.0-0.5) mg/dL Indirect Bilirubin (0.0-1.0) mg/dL AST (5-40) IU/L ALT (8-54) IU/L Alkaline Phosphatase (40-150) Total Protein (6.0-8.0) g/dL Albumin (3.5-5.0) g/dL Globulin (2.0-3.5) g/dL Albumin/Globulin Ratio (1.3-2.8) Ketones (NEG) 10/10/16 10/10/16 10/10/16 Range/Units 04:25 05:20 06:20 WBC (4.0-11.0) K/uL RBC (4.30-5.90) M/uL Hgb (12.0-16.0) g/dL Hct (36.0-46.0) % MCV (80.0-98.0) fL MCH (27.0-32.0) pg MCHC (31.0-37.0) g/dL RDW Std Deviation (28.0-62.0) fl RDW Coeff of Zak (11.0-15.0) % Plt Count (150-400) K/uL MPV (7.40-12.00) fL Neut % (Auto) (48.0-80.0) % Lymph % (Auto) (16.0-40.0) % Knox % (Auto) (0.0-15.0) % Eos % (Auto) (0.0-7.0) % Baso % (Auto) (0.0-1.5) % Neut # (Auto) (1.4-5.7) K/uL Lymph # (Auto) (0.6-2.4) K/uL Knox # (Auto) (0.0-0.8) K/uL Eos # (Auto) (0.0-0.7) K/uL Baso # (Auto) (0.0-0.1) K/uL Nucleated RBC % /100WBC Nucleated RBCs # K/uL Sodium (136-146) mmol/L Potassium (3.5-5.1) mmol/L Chloride (98-110) mmol/L Carbon Dioxide (21-31) mmol/L BUN (6.0-23.0) mg/dL Creatinine (0.6-1.5) mg/dL Est Cr Clr Drug Dosing mL/min Estimated GFR (MDRD) ml/min Glucose (60-110) mg/dL POC Glucose 153 H 168 H 155 H (60-110) mg/dL Calcium (8.8-10.8) mg/dL Phosphorus (2.4-4.7) mg/dL Magnesium (1.5-2.3) mEq/L Total Bilirubin (0.1-1.5) mg/dL Direct Bilirubin (0.0-0.5) mg/dL Indirect Bilirubin (0.0-1.0) mg/dL AST (5-40) IU/L ALT (8-54) IU/L Alkaline Phosphatase (40-150) Total Protein (6.0-8.0) g/dL Albumin (3.5-5.0) g/dL Globulin (2.0-3.5) g/dL Albumin/Globulin Ratio (1.3-2.8) Ketones (NEG) 10/10/16 10/10/16 10/10/16 Range/Units 07:16 08:11 08:12 WBC (4.0-11.0) K/uL RBC (4.30-5.90) M/uL Hgb (12.0-16.0) g/dL Hct (36.0-46.0) % MCV (80.0-98.0) fL MCH (27.0-32.0) pg MCHC (31.0-37.0) g/dL RDW Std Deviation (28.0-62.0) fl RDW Coeff of Zak (11.0-15.0) % Plt Count (150-400) K/uL MPV (7.40-12.00) fL Neut % (Auto) (48.0-80.0) % Lymph % (Auto) (16.0-40.0) % Knox % (Auto) (0.0-15.0) % Eos % (Auto) (0.0-7.0) % Baso % (Auto) (0.0-1.5) % Neut # (Auto) (1.4-5.7) K/uL Lymph # (Auto) (0.6-2.4) K/uL Knox # (Auto) (0.0-0.8) K/uL Eos # (Auto) (0.0-0.7) K/uL Baso # (Auto) (0.0-0.1) K/uL Nucleated RBC % /100WBC Nucleated RBCs # K/uL Sodium 136 (136-146) mmol/L Potassium 3.8 (3.5-5.1) mmol/L Chloride 110 (98-110) mmol/L Carbon Dioxide 16 L (21-31) mmol/L BUN 3 L (6.0-23.0) mg/dL Creatinine 0.7 (0.6-1.5) mg/dL Est Cr Clr Drug Dosing 86.71 mL/min Estimated GFR (MDRD) > 60.0 ml/min Glucose 181 H (60-110) mg/dL POC Glucose 138 H 176 H (60-110) mg/dL Calcium 8.6 L (8.8-10.8) mg/dL Phosphorus (2.4-4.7) mg/dL Magnesium (1.5-2.3) mEq/L Total Bilirubin (0.1-1.5) mg/dL Direct Bilirubin (0.0-0.5) mg/dL Indirect Bilirubin (0.0-1.0) mg/dL AST (5-40) IU/L ALT (8-54) IU/L Alkaline Phosphatase (40-150) Total Protein (6.0-8.0) g/dL Albumin (3.5-5.0) g/dL Globulin (2.0-3.5) g/dL Albumin/Globulin Ratio (1.3-2.8) Ketones (NEG) 10/10/16 Range/Units 08:58 WBC (4.0-11.0) K/uL RBC (4.30-5.90) M/uL Hgb (12.0-16.0) g/dL Hct (36.0-46.0) % MCV (80.0-98.0) fL MCH (27.0-32.0) pg MCHC (31.0-37.0) g/dL RDW Std Deviation (28.0-62.0) fl RDW Coeff of Zak (11.0-15.0) % Plt Count (150-400) K/uL MPV (7.40-12.00) fL Neut % (Auto) (48.0-80.0) % Lymph % (Auto) (16.0-40.0) % Knox % (Auto) (0.0-15.0) % Eos % (Auto) (0.0-7.0) % Baso % (Auto) (0.0-1.5) % Neut # (Auto) (1.4-5.7) K/uL Lymph # (Auto) (0.6-2.4) K/uL Knox # (Auto) (0.0-0.8) K/uL Eos # (Auto) (0.0-0.7) K/uL Baso # (Auto) (0.0-0.1) K/uL Nucleated RBC % /100WBC Nucleated RBCs # K/uL Sodium (136-146) mmol/L Potassium (3.5-5.1) mmol/L Chloride (98-110) mmol/L Carbon Dioxide (21-31) mmol/L BUN (6.0-23.0) mg/dL Creatinine (0.6-1.5) mg/dL Est Cr Clr Drug Dosing mL/min Estimated GFR (MDRD) ml/min Glucose (60-110) mg/dL POC Glucose 176 H (60-110) mg/dL Calcium (8.8-10.8) mg/dL Phosphorus (2.4-4.7) mg/dL Magnesium (1.5-2.3) mEq/L Total Bilirubin (0.1-1.5) mg/dL Direct Bilirubin (0.0-0.5) mg/dL Indirect Bilirubin (0.0-1.0) mg/dL AST (5-40) IU/L ALT (8-54) IU/L Alkaline Phosphatase (40-150) Total Protein (6.0-8.0) g/dL Albumin (3.5-5.0) g/dL Globulin (2.0-3.5) g/dL Albumin/Globulin Ratio (1.3-2.8) Ketones (NEG) Med Orders - Current: Current Medications Diphenhydramine HCl (Benadryl) 50 mg IVPUSH Q8H PRN PRN Reason: Itching Last Admin: 10/10/16 03:03 Dose: 50 mg Insulin Human Regular 100 unit (/ Sodium Chloride) 100 mls @ 8 mls/hr IV TITRATE PIPPA; 8 UNIT/HR PRN Reason: Protocol Last Titration: 10/10/16 09:00 Dose: 2 unit/hr, 2 mls/hr Pantoprazole Sodium 80 mg/ (Sodium Chloride) 100 mls @ 10 mls/hr IV Q10H PIPPA Last Admin: 10/10/16 08:54 Dose: 10 mls/hr Dextrose/Water (Dextrose 5% In Water) 1,000 mls @ 175 mls/hr IV ASDIRECTED PIPPA Last Admin: 10/10/16 05:55 Dose: 175 mls/hr Potassium Chloride/Sodium Chloride (Normal Saline With 40 Meq Kcl) 500 mls @ 125 mls/hr IV ASDIRECTED PIPPA Lorazepam (Ativan) 1 mg IVPUSH Q4H PRN PRN Reason: Agitation Last Admin: 10/09/16 23:12 Dose: 1 mg Morphine Sulfate (Morphine) 2 mg IVPUSH Q4H PRN PRN Reason: Pain Last Admin: 10/10/16 05:46 Dose: 2 mg Ondansetron HCl (Zofran) 4 mg IVPUSH Q4H PRN PRN Reason: Nausea Last Admin: 10/10/16 05:46 Dose: 4 mg Discontinued Medications Hydrocodone Bitart/Acetaminophen (Hubbard 325-5 Mg) 1 tab PO ONETIME ONE Stop: 10/08/16 05:00 Last Admin: 10/08/16 06:23 Dose: Not Given Sodium Chloride (Normal Saline) 3,000 mls @ 999 mls/hr IV .Bolus ONE Stop: 10/08/16 06:56 Last Admin: 10/08/16 04:15 Dose: 999 mls/hr Insulin Human Regular 100 unit (/ Sodium Chloride) 100 mls @ 4.53 mls/hr IV TITRATE PIPPA; 0.1 UNIT/KG/HR PRN Reason: Protocol Last Titration: 10/08/16 07:40 Dose: 0.08 unit/kg/hr, 4 mls/hr Potassium Chloride/Sodium Chloride (Normal Saline With 40 Meq Kcl) 500 mls @ 125 mls/hr IV NOW STA Stop: 10/08/16 10:19 Last Admin: 10/08/16 08:28 Dose: Not Given Potassium Chloride 40 meq/ (Sodium Chloride) 520 mls @ 500 mls/hr IV NOW ONE Stop: 10/08/16 07:32 Last Admin: 10/08/16 06:47 Dose: 500 mls/hr Sodium Chloride (Normal Saline) 1,000 mls @ 200 mls/hr IV ASDIRECTED PIPPA Last Admin: 10/08/16 08:38 Dose: 200 mls/hr Pantoprazole Sodium 40 mg/ (Sodium Chloride) 10 mls @ 300 mls/hr IVPUSH DAILY PIPPA Last Admin: 10/08/16 10:31 Dose: 300 mls/hr Dextrose/Sodium Chloride (Dextrose 5%-Normal Saline) 1,000 mls @ 150 mls/hr IV ASDIRECTED PIPPA Last Admin: 10/08/16 12:00 Dose: 150 mls/hr Sodium Chloride (Normal Saline) 1,000 mls @ 999 mls/hr IV ASDIRECTED PIPPA Last Admin: 10/08/16 14:20 Dose: 999 mls/hr Dextrose/Sodium Chloride (Dextrose 5%-1/2 Ns) 1,000 mls @ 125 mls/hr IV ASDIRECTED PIPPA Last Admin: 10/08/16 18:54 Dose: 125 mls/hr Dextrose/Sodium Chloride (Dextrose 5%-Normal Saline) 1,000 mls @ 125 mls/hr IV ASDIRECTED PIPPA Potassium Chloride 40 meq/ (Sodium Chloride) 500 mls @ 125 mls/hr IV ONETIME ONE Stop: 10/09/16 02:00 Last Admin: 10/09/16 21:46 Dose: 125 mls/hr Dextrose/Sodium Chloride (Dextrose 5%-1/2 Ns) 1,000 mls @ 175 mls/hr IV ASDIRECTED PIPPA Potassium Chloride 40 meq/ (Dextrose/Water) 1,020 mls @ 175 mls/hr IV ASDIRECTED PIPPA Potassium Chloride 40 meq/ (Dextrose/Water) 1,020 mls @ 175 mls/hr IV ONETIME ONE Stop: 10/09/16 04:26 Last Admin: 10/08/16 22:57 Dose: 175 mls/hr Potassium Chloride 40 meq/ (Dextrose/Water) 1,020 mls @ 175 mls/hr IV ASDIRECTED ONE Stop: 10/09/16 15:19 Last Admin: 10/09/16 09:40 Dose: Not Given Potassium Phosphate 27 mmole/Magnesium Sulfate 4 gm/Dextrose/Water 1,017 mls @ 250 mls/hr IV ASDIRECTED ONE Stop: 10/09/16 13:40 Last Admin: 10/09/16 09:55 Dose: 250 mls/hr Lorazepam (Ativan) 0.5 mg IVPUSH STAT STA Stop: 10/08/16 05:59 Last Admin: 10/08/16 06:00 Dose: 0.5 mg Lorazepam (Ativan) 0.5 mg IVPUSH ONETIME ONE Stop: 10/08/16 06:00 Last Admin: 10/08/16 06:00 Dose: 0.5 mg Lorazepam (Ativan) 1 mg IVPUSH ONETIME ONE Stop: 10/08/16 06:54 Last Admin: 10/08/16 07:00 Dose: 1 mg Morphine Sulfate (Morphine) 2 mg IVPUSH Q4H PRN PRN Reason: Pain (severe 7-10) Stop: 10/09/16 08:39 Last Admin: 10/09/16 07:08 Dose: 2 mg Ondansetron HCl (Zofran) 4 mg IVPUSH ONETIME ONE Stop: 10/08/16 04:56 Last Admin: 10/08/16 05:09 Dose: 4 mg Potassium Bicarbonate (Klor-Con Ef) 50 meq PO DAILY PIPPA Potassium Bicarbonate (Klor-Con Ef) 40 meq PO DAILY PIPPA Last Admin: 10/08/16 10:19 Dose: Not Given Potassium Chloride (Klor-Con M20) 40 meq PO ONETIME ONE Stop: 10/08/16 05:48 Last Admin: 10/08/16 08:27 Dose: Not Given Potassium Chloride (Klor-Con M20) 40 meq PO ONETIME ONE Stop: 10/09/16 21:06 Last Admin: 10/09/16 22:12 Dose: 40 meq - Exam Quality Assessment: central line/PICC (right IVJ), DVT prophylaxis General: alert, oriented, cooperative, mild distress Lungs: Clear to auscultation, Normal respiratory effort Cardiovascular: Regular Rhythm, Tachycardia (117) Abdomen: bowel sounds present, soft, no distension, tenderness (mild diffuse tenderness) Extremities: no edema, no calf tenderness Peripheral Pulses: 2+: radial (L), radial (R) Skin: warm, dry, intact Neurological: no new focal deficit Psy/Mental Status: alert, other (tearful) - Problem List & Annotations (1) Altered mental status SNOMED Code(s): 855385490 Code(s): R41.82 - ALTERED MENTAL STATUS, UNSPECIFIED Status: Acute Current Visit: Yes (2) Diabetic ketoacidosis SNOMED Code(s): 794713092, 307793460 Code(s): E13.10 - OTH DIABETES MELLITUS WITH KETOACIDOSIS WITHOUT COMA Status: Acute Current Visit: Yes (3) Abdominal pain SNOMED Code(s): 69528448 Code(s): R10.9 - UNSPECIFIED ABDOMINAL PAIN Status: Acute Current Visit: No - Problem List Review Problem List Initiated/Reviewed/Updated: Yes - Plan Plan:: 1. DKA: -continue insulin drip with IVF (D5 with water). We will advance her diet as tolerated. If she is eating ok, we will give SQ insulin and stop insulin drip 1- 2 hours after. -BMP q6hrs (monitoring anion gap and bicarb). Current Bicarb is 16. Anion gap is 10. -patient is NPO. She has no appetite. -blood sugars 150-170 2. Chronic abdominal pain: -switched to PO morphine 30mg q4hrs PRN 3. Electrolyte abnormalities (Potassium, magnesium, phosphorus): -received 40mEq of KCl last night. Potassium is 3.8 this AM. -Replace magnesium and phosphorous daily
[2016-10-10] MEDS: Phosphorus #1 250 MG Tab PO SCH ×3 (11:03→23:11)
[2016-10-10] MEDS: Magnesium Chloride 64 MG Tab.ER PO SCH (11:03)
[2016-10-10] MEDS: LORazepam 2 MG/ML MDV IVPUSH PRN ×2 (12:09→20:40)
[2016-10-10] MEDS: Morphine 15 MG Tab PO PRN ×2 (13:41→21:39)
[2016-10-10 14:30] LABS: CHLORIDE,CL 111 mmol/L (98-110); SODIUM,NA 139 mmol/L (136-146)
[2016-10-10 20:35] LABS: CHLORIDE,CL 115 mmol/L (98-110); SODIUM,NA 139 mmol/L (136-146)
[2016-10-10] MEDS ORDERED: Potassium Chloride 20 MEQ Tab.ER PO ONE (21:05)
[2016-10-11 02:26] LABS: CHLORIDE,CL 114 mmol/L (98-110); SODIUM,NA 140 mmol/L (136-146)
[2016-10-11] MEDS: Pantoprazole 80 MG in Sodium Chloride 0.9% 100 ML IV SCH (03:30)
[2016-10-11] MEDS: LORazepam 2 MG/ML MDV IVPUSH PRN ×2 (03:40→20:01)
[2016-10-11] MEDS: Dextrose 5% in Water 1,000 ML IV SCH (05:11)
[2016-10-11] MEDS: Morphine 15 MG Tab PO PRN ×2 (05:59→17:32)
[2016-10-11] MEDS: Phosphorus #1 250 MG Tab PO SCH ×4 (05:59→23:56)
[2016-10-11] MEDS: diphenhydrAMINE 50 MG/ML SDV IVPUSH PRN ×2 (08:06→20:01)
[2016-10-11] MEDS: Magnesium Chloride 64 MG Tab.ER PO SCH (08:06)
[2016-10-11 08:43] LABS: CHLORIDE,CL 110 mmol/L (98-110); SODIUM,NA 138 mmol/L (136-146)
[2016-10-11] MEDS: Insulin Detemir 100 Units/ML 3 ML Pen SUBCUT SCH ×2 (10:14→21:00)
--- NOTE | 2016-10-11 12:00 | PCM.PN ---
- General Info Date of Service: 10/11/16 Admission Dx/Problem (Free Text): Admission Diagnosis/Problem Admission Diagnosis/Problem Diabetic ketoacidosis Subjective Update: Appetite is improving. She ate a little yesterday without any nausea or vomiting. Abdominal pain is being adequaetly controlled with PO pain meds. Functional Status: Reports: pain controlled, tolerating diet, urinating - Review of Systems General: Reports: Weakness, Fatigue HEENT: Reports: no symptoms Pulmonary: Reports: no symptoms Cardiovascular: Reports: No Symptoms Gastrointestinal: Reports: Abdominal pain (improving and controlled), Decreased appetite (improving). Denies: Nausea, Vomiting Genitourinary: Reports: no symptoms Musculoskeletal: Reports: no symptoms Skin: Reports: no symptoms Neurological: Reports: No Symptoms Psychiatric: Reports: no symptoms - Patient Data Vitals - most recent: Last Vital Signs Temp 97.3 F 10/11/16 08:00 Pulse 94 10/10/16 18:00 Resp 14 10/11/16 11:00 BP 101/67 10/11/16 11:00 Pulse Ox 99 10/11/16 11:00 Weight - most recent: 106 lb 11.26 oz I&O - last 24 hours: Intake & Output 10/10/16 10/11/16 10/11/16 22:59 06:59 14:59 Intake Total 800 2550 925 Output Total 2500 1600 Balance -1700 950 925 Lab Results last 24 hrs: Laboratory Results - last 24 hr 10/10/16 10/10/16 10/10/16 Range/Units 12:10 13:11 14:04 WBC (4.0-11.0) K/uL RBC (4.30-5.90) M/uL Hgb (12.0-16.0) g/dL Hct (36.0-46.0) % MCV (80.0-98.0) fL MCH (27.0-32.0) pg MCHC (31.0-37.0) g/dL RDW Std Deviation (28.0-62.0) fl RDW Coeff of Zak (11.0-15.0) % Plt Count (150-400) K/uL MPV (7.40-12.00) fL Neut % (Auto) (48.0-80.0) % Lymph % (Auto) (16.0-40.0) % [place] % (Auto) (0.0-15.0) % Eos % (Auto) (0.0-7.0) % Baso % (Auto) (0.0-1.5) % Neut # (Auto) (1.4-5.7) K/uL Lymph # (Auto) (0.6-2.4) K/uL [place] # (Auto) (0.0-0.8) K/uL Eos # (Auto) (0.0-0.7) K/uL Baso # (Auto) (0.0-0.1) K/uL Sodium 139 (136-146) mmol/L Potassium 3.4 L (3.5-5.1) mmol/L Chloride 111 H (98-110) mmol/L Carbon Dioxide 15 L (21-31) mmol/L BUN 2 L (6.0-23.0) mg/dL Creatinine 0.7 (0.6-1.5) mg/dL Est Cr Clr Drug Dosing 86.71 mL/min Estimated GFR (MDRD) > 60.0 ml/min Glucose 183 H (60-110) mg/dL POC Glucose 170 H 177 H (60-110) mg/dL Calcium 8.5 L (8.8-10.8) mg/dL Phosphorus (2.4-4.7) mg/dL Magnesium (1.5-2.3) mEq/L 10/10/16 10/10/16 10/10/16 Range/Units 14:04 14:07 15:08 WBC (4.0-11.0) K/uL RBC (4.30-5.90) M/uL Hgb (12.0-16.0) g/dL Hct (36.0-46.0) % MCV (80.0-98.0) fL MCH (27.0-32.0) pg MCHC (31.0-37.0) g/dL RDW Std Deviation (28.0-62.0) fl RDW Coeff of Zak (11.0-15.0) % Plt Count (150-400) K/uL MPV (7.40-12.00) fL Neut % (Auto) (48.0-80.0) % Lymph % (Auto) (16.0-40.0) % [place] % (Auto) (0.0-15.0) % Eos % (Auto) (0.0-7.0) % Baso % (Auto) (0.0-1.5) % Neut # (Auto) (1.4-5.7) K/uL Lymph # (Auto) (0.6-2.4) K/uL [place] # (Auto) (0.0-0.8) K/uL Eos # (Auto) (0.0-0.7) K/uL Baso # (Auto) (0.0-0.1) K/uL Sodium (136-146) mmol/L Potassium (3.5-5.1) mmol/L Chloride (98-110) mmol/L Carbon Dioxide (21-31) mmol/L BUN (6.0-23.0) mg/dL Creatinine (0.6-1.5) mg/dL Est Cr Clr Drug Dosing mL/min Estimated GFR (MDRD) ml/min Glucose (60-110) mg/dL POC Glucose 145 H 136 H (60-110) mg/dL Calcium (8.8-10.8) mg/dL Phosphorus 2.7 (2.4-4.7) mg/dL Magnesium (1.5-2.3) mEq/L 10/10/16 10/10/16 10/10/16 Range/Units 16:08 17:04 17:43 WBC (4.0-11.0) K/uL RBC (4.30-5.90) M/uL Hgb (12.0-16.0) g/dL Hct (36.0-46.0) % MCV (80.0-98.0) fL MCH (27.0-32.0) pg MCHC (31.0-37.0) g/dL RDW Std Deviation (28.0-62.0) fl RDW Coeff of Zak (11.0-15.0) % Plt Count (150-400) K/uL MPV (7.40-12.00) fL Neut % (Auto) (48.0-80.0) % Lymph % (Auto) (16.0-40.0) % [place] % (Auto) (0.0-15.0) % Eos % (Auto) (0.0-7.0) % Baso % (Auto) (0.0-1.5) % Neut # (Auto) (1.4-5.7) K/uL Lymph # (Auto) (0.6-2.4) K/uL [place] # (Auto) (0.0-0.8) K/uL Eos # (Auto) (0.0-0.7) K/uL Baso # (Auto) (0.0-0.1) K/uL Sodium (136-146) mmol/L Potassium (3.5-5.1) mmol/L Chloride (98-110) mmol/L Carbon Dioxide (21-31) mmol/L BUN (6.0-23.0) mg/dL Creatinine (0.6-1.5) mg/dL Est Cr Clr Drug Dosing mL/min Estimated GFR (MDRD) ml/min Glucose (60-110) mg/dL POC Glucose 140 H 134 H 137 H (60-110) mg/dL Calcium (8.8-10.8) mg/dL Phosphorus (2.4-4.7) mg/dL Magnesium (1.5-2.3) mEq/L 10/10/16 10/10/16 10/10/16 Range/Units 19:08 20:03 20:08 WBC (4.0-11.0) K/uL RBC (4.30-5.90) M/uL Hgb (12.0-16.0) g/dL Hct (36.0-46.0) % MCV (80.0-98.0) fL MCH (27.0-32.0) pg MCHC (31.0-37.0) g/dL RDW Std Deviation (28.0-62.0) fl RDW Coeff of Zak (11.0-15.0) % Plt Count (150-400) K/uL MPV (7.40-12.00) fL Neut % (Auto) (48.0-80.0) % Lymph % (Auto) (16.0-40.0) % [place] % (Auto) (0.0-15.0) % Eos % (Auto) (0.0-7.0) % Baso % (Auto) (0.0-1.5) % Neut # (Auto) (1.4-5.7) K/uL Lymph # (Auto) (0.6-2.4) K/uL [place] # (Auto) (0.0-0.8) K/uL Eos # (Auto) (0.0-0.7) K/uL Baso # (Auto) (0.0-0.1) K/uL Sodium 139 (136-146) mmol/L Potassium 3.2 L (3.5-5.1) mmol/L Chloride 115 H (98-110) mmol/L Carbon Dioxide 14 L (21-31) mmol/L BUN 3 L (6.0-23.0) mg/dL Creatinine 0.8 (0.6-1.5) mg/dL Est Cr Clr Drug Dosing 75.87 mL/min Estimated GFR (MDRD) > 60.0 ml/min Glucose 230 H (60-110) mg/dL POC Glucose 286 H 221 H (60-110) mg/dL Calcium 7.9 L (8.8-10.8) mg/dL Phosphorus (2.4-4.7) mg/dL Magnesium (1.5-2.3) mEq/L 10/10/16 10/10/16 10/10/16 Range/Units 21:06 22:10 23:06 WBC (4.0-11.0) K/uL RBC (4.30-5.90) M/uL Hgb (12.0-16.0) g/dL Hct (36.0-46.0) % MCV (80.0-98.0) fL MCH (27.0-32.0) pg MCHC (31.0-37.0) g/dL RDW Std Deviation (28.0-62.0) fl RDW Coeff of Zak (11.0-15.0) % Plt Count (150-400) K/uL MPV (7.40-12.00) fL Neut % (Auto) (48.0-80.0) % Lymph % (Auto) (16.0-40.0) % [place] % (Auto) (0.0-15.0) % Eos % (Auto) (0.0-7.0) % Baso % (Auto) (0.0-1.5) % Neut # (Auto) (1.4-5.7) K/uL Lymph # (Auto) (0.6-2.4) K/uL [place] # (Auto) (0.0-0.8) K/uL Eos # (Auto) (0.0-0.7) K/uL Baso # (Auto) (0.0-0.1) K/uL Sodium (136-146) mmol/L Potassium (3.5-5.1) mmol/L Chloride (98-110) mmol/L Carbon Dioxide (21-31) mmol/L BUN (6.0-23.0) mg/dL Creatinine (0.6-1.5) mg/dL Est Cr Clr Drug Dosing mL/min Estimated GFR (MDRD) ml/min Glucose (60-110) mg/dL POC Glucose 164 H 194 H 227 H (60-110) mg/dL Calcium (8.8-10.8) mg/dL Phosphorus (2.4-4.7) mg/dL Magnesium (1.5-2.3) mEq/L 10/11/16 10/11/16 10/11/16 Range/Units 00:00 01:10 01:54 WBC (4.0-11.0) K/uL RBC (4.30-5.90) M/uL Hgb (12.0-16.0) g/dL Hct (36.0-46.0) % MCV (80.0-98.0) fL MCH (27.0-32.0) pg MCHC (31.0-37.0) g/dL RDW Std Deviation (28.0-62.0) fl RDW Coeff of Zak (11.0-15.0) % Plt Count (150-400) K/uL MPV (7.40-12.00) fL Neut % (Auto) (48.0-80.0) % Lymph % (Auto) (16.0-40.0) % [place] % (Auto) (0.0-15.0) % Eos % (Auto) (0.0-7.0) % Baso % (Auto) (0.0-1.5) % Neut # (Auto) (1.4-5.7) K/uL Lymph # (Auto) (0.6-2.4) K/uL [place] # (Auto) (0.0-0.8) K/uL Eos # (Auto) (0.0-0.7) K/uL Baso # (Auto) (0.0-0.1) K/uL Sodium 140 (136-146) mmol/L Potassium 4.7 (3.5-5.1) mmol/L Chloride 114 H (98-110) mmol/L Carbon Dioxide 17 L (21-31) mmol/L BUN 6 (6.0-23.0) mg/dL Creatinine 0.7 (0.6-1.5) mg/dL Est Cr Clr Drug Dosing 86.71 mL/min Estimated GFR (MDRD) > 60.0 ml/min Glucose 169 H (60-110) mg/dL POC Glucose 224 H 193 H (60-110) mg/dL Calcium 8.5 L (8.8-10.8) mg/dL Phosphorus (2.4-4.7) mg/dL Magnesium (1.5-2.3) mEq/L 10/11/16 10/11/16 10/11/16 Range/Units 01:54 02:04 03:04 WBC 5.92 (4.0-11.0) K/uL RBC 3.45 L (4.30-5.90) M/uL Hgb 10.1 L (12.0-16.0) g/dL Hct 31.6 L (36.0-46.0) % MCV 91.6 (80.0-98.0) fL MCH 29.3 (27.0-32.0) pg MCHC 32.0 (31.0-37.0) g/dL RDW Std Deviation 44.6 (28.0-62.0) fl RDW Coeff of Zak 14 (11.0-15.0) % Plt Count 273 (150-400) K/uL MPV 9.70 (7.40-12.00) fL Neut % (Auto) 38.9 L (48.0-80.0) % Lymph % (Auto) 52.5 H (16.0-40.0) % [place] % (Auto) 4.2 (0.0-15.0) % Eos % (Auto) 3.9 (0.0-7.0) % Baso % (Auto) 0.5 (0.0-1.5) % Neut # (Auto) 2.3 (1.4-5.7) K/uL Lymph # (Auto) 3.1 H (0.6-2.4) K/uL [place] # (Auto) 0.3 (0.0-0.8) K/uL Eos # (Auto) 0.2 (0.0-0.7) K/uL Baso # (Auto) 0.0 (0.0-0.1) K/uL Sodium (136-146) mmol/L Potassium (3.5-5.1) mmol/L Chloride (98-110) mmol/L Carbon Dioxide (21-31) mmol/L BUN (6.0-23.0) mg/dL Creatinine (0.6-1.5) mg/dL Est Cr Clr Drug Dosing mL/min Estimated GFR (MDRD) ml/min Glucose (60-110) mg/dL POC Glucose 172 H 180 H (60-110) mg/dL Calcium (8.8-10.8) mg/dL Phosphorus (2.4-4.7) mg/dL Magnesium (1.5-2.3) mEq/L 10/11/16 10/11/16 10/11/16 Range/Units 04:06 05:12 06:06 WBC (4.0-11.0) K/uL RBC (4.30-5.90) M/uL Hgb (12.0-16.0) g/dL Hct (36.0-46.0) % MCV (80.0-98.0) fL MCH (27.0-32.0) pg MCHC (31.0-37.0) g/dL RDW Std Deviation (28.0-62.0) fl RDW Coeff of Zak (11.0-15.0) % Plt Count (150-400) K/uL MPV (7.40-12.00) fL Neut % (Auto) (48.0-80.0) % Lymph % (Auto) (16.0-40.0) % [place] % (Auto) (0.0-15.0) % Eos % (Auto) (0.0-7.0) % Baso % (Auto) (0.0-1.5) % Neut # (Auto) (1.4-5.7) K/uL Lymph # (Auto) (0.6-2.4) K/uL [place] # (Auto) (0.0-0.8) K/uL Eos # (Auto) (0.0-0.7) K/uL Baso # (Auto) (0.0-0.1) K/uL Sodium (136-146) mmol/L Potassium (3.5-5.1) mmol/L Chloride (98-110) mmol/L Carbon Dioxide (21-31) mmol/L BUN (6.0-23.0) mg/dL Creatinine (0.6-1.5) mg/dL Est Cr Clr Drug Dosing mL/min Estimated GFR (MDRD) ml/min Glucose (60-110) mg/dL POC Glucose 212 H 179 H 129 H (60-110) mg/dL Calcium (8.8-10.8) mg/dL Phosphorus (2.4-4.7) mg/dL Magnesium (1.5-2.3) mEq/L 10/11/16 10/11/16 10/11/16 Range/Units 06:57 08:06 08:06 WBC (4.0-11.0) K/uL RBC (4.30-5.90) M/uL Hgb (12.0-16.0) g/dL Hct (36.0-46.0) % MCV (80.0-98.0) fL MCH (27.0-32.0) pg MCHC (31.0-37.0) g/dL RDW Std Deviation (28.0-62.0) fl RDW Coeff of Zak (11.0-15.0) % Plt Count (150-400) K/uL MPV (7.40-12.00) fL Neut % (Auto) (48.0-80.0) % Lymph % (Auto) (16.0-40.0) % [place] % (Auto) (0.0-15.0) % Eos % (Auto) (0.0-7.0) % Baso % (Auto) (0.0-1.5) % Neut # (Auto) (1.4-5.7) K/uL Lymph # (Auto) (0.6-2.4) K/uL [place] # (Auto) (0.0-0.8) K/uL Eos # (Auto) (0.0-0.7) K/uL Baso # (Auto) (0.0-0.1) K/uL Sodium 138 (136-146) mmol/L Potassium 4.2 (3.5-5.1) mmol/L Chloride 110 (98-110) mmol/L Carbon Dioxide 19 L (21-31) mmol/L BUN 8 (6.0-23.0) mg/dL Creatinine 0.7 (0.6-1.5) mg/dL Est Cr Clr Drug Dosing 86.71 mL/min Estimated GFR (MDRD) > 60.0 ml/min Glucose 187 H (60-110) mg/dL POC Glucose 143 H (60-110) mg/dL Calcium 8.6 L (8.8-10.8) mg/dL Phosphorus 4.0 (2.4-4.7) mg/dL Magnesium 1.5 (1.5-2.3) mEq/L 10/11/16 10/11/16 10/11/16 Range/Units 08:08 09:15 10:13 WBC (4.0-11.0) K/uL RBC (4.30-5.90) M/uL Hgb (12.0-16.0) g/dL Hct (36.0-46.0) % MCV (80.0-98.0) fL MCH (27.0-32.0) pg MCHC (31.0-37.0) g/dL RDW Std Deviation (28.0-62.0) fl RDW Coeff of Zak (11.0-15.0) % Plt Count (150-400) K/uL MPV (7.40-12.00) fL Neut % (Auto) (48.0-80.0) % Lymph % (Auto) (16.0-40.0) % [place] % (Auto) (0.0-15.0) % Eos % (Auto) (0.0-7.0) % Baso % (Auto) (0.0-1.5) % Neut # (Auto) (1.4-5.7) K/uL Lymph # (Auto) (0.6-2.4) K/uL [place] # (Auto) (0.0-0.8) K/uL Eos # (Auto) (0.0-0.7) K/uL Baso # (Auto) (0.0-0.1) K/uL Sodium (136-146) mmol/L Potassium (3.5-5.1) mmol/L Chloride (98-110) mmol/L Carbon Dioxide (21-31) mmol/L BUN (6.0-23.0) mg/dL Creatinine (0.6-1.5) mg/dL Est Cr Clr Drug Dosing mL/min Estimated GFR (MDRD) ml/min Glucose (60-110) mg/dL POC Glucose 180 H 217 H 182 H (60-110) mg/dL Calcium (8.8-10.8) mg/dL Phosphorus (2.4-4.7) mg/dL Magnesium (1.5-2.3) mEq/L 10/11/16 Range/Units 11:05 WBC (4.0-11.0) K/uL RBC (4.30-5.90) M/uL Hgb (12.0-16.0) g/dL Hct (36.0-46.0) % MCV (80.0-98.0) fL MCH (27.0-32.0) pg MCHC (31.0-37.0) g/dL RDW Std Deviation (28.0-62.0) fl RDW Coeff of Zak (11.0-15.0) % Plt Count (150-400) K/uL MPV (7.40-12.00) fL Neut % (Auto) (48.0-80.0) % Lymph % (Auto) (16.0-40.0) % [place] % (Auto) (0.0-15.0) % Eos % (Auto) (0.0-7.0) % Baso % (Auto) (0.0-1.5) % Neut # (Auto) (1.4-5.7) K/uL Lymph # (Auto) (0.6-2.4) K/uL [place] # (Auto) (0.0-0.8) K/uL Eos # (Auto) (0.0-0.7) K/uL Baso # (Auto) (0.0-0.1) K/uL Sodium (136-146) mmol/L Potassium (3.5-5.1) mmol/L Chloride (98-110) mmol/L Carbon Dioxide (21-31) mmol/L BUN (6.0-23.0) mg/dL Creatinine (0.6-1.5) mg/dL Est Cr Clr Drug Dosing mL/min Estimated GFR (MDRD) ml/min Glucose (60-110) mg/dL POC Glucose 134 H (60-110) mg/dL Calcium (8.8-10.8) mg/dL Phosphorus (2.4-4.7) mg/dL Magnesium (1.5-2.3) mEq/L Med Orders - Current: Current Medications Diphenhydramine HCl (Benadryl) 50 mg IVPUSH Q8H PRN PRN Reason: Itching Last Admin: 10/11/16 08:06 Dose: 50 mg Potassium Chloride/Sodium Chloride (Normal Saline With 40 Meq Kcl) 500 mls @ 125 mls/hr IV ASDIRECTED [facility] Insulin Aspart (Novolog) 16 - 20 unit SUBCUT TIDMEALS [facility] Insulin Detemir (Levemir) 15 unit SUBCUT BID [facility] Last Admin: 10/11/16 10:14 Dose: 15 units Lorazepam (Ativan) 1 mg IVPUSH Q4H PRN PRN Reason: Agitation Last Admin: 10/11/16 03:40 Dose: 1 mg Magnesium Chloride (Mag-64) 64 mg PO DAILY [facility] Last Admin: 10/11/16 08:06 Dose: 64 mg Morphine Sulfate (Morphine) 30 mg PO Q4H PRN PRN Reason: Pain Last Admin: 10/11/16 05:59 Dose: 30 mg Omeprazole (Omeprazole) 20 mg PO BIDAC [facility] Ondansetron HCl (Zofran) 4 mg IVPUSH Q4H PRN PRN Reason: Nausea Last Admin: 10/10/16 09:58 Dose: 4 mg Sodium Phosphate (Neutra-Phos) 250 mg PO QID [facility] Last Admin: 10/11/16 05:59 Dose: 250 mg Discontinued Medications Hydrocodone Bitart/Acetaminophen ([place] 325-5 Mg) 1 tab PO ONETIME ONE Stop: 10/08/16 05:00 Last Admin: 10/08/16 06:23 Dose: Not Given Sodium Chloride (Normal Saline) 3,000 mls @ 999 mls/hr IV .Bolus ONE Stop: 10/08/16 06:56 Last Admin: 10/08/16 04:15 Dose: 999 mls/hr Insulin Human Regular 100 unit (/ Sodium Chloride) 100 mls @ 4.53 mls/hr IV TITRATE PIPPA; 0.1 UNIT/KG/HR PRN Reason: Protocol Last Titration: 10/08/16 07:40 Dose: 0.08 unit/kg/hr, 4 mls/hr Potassium Chloride/Sodium Chloride (Normal Saline With 40 Meq Kcl) 500 mls @ 125 mls/hr IV NOW STA Stop: 10/08/16 10:19 Last Admin: 10/08/16 08:28 Dose: Not Given Potassium Chloride 40 meq/ (Sodium Chloride) 520 mls @ 500 mls/hr IV NOW ONE Stop: 10/08/16 07:32 Last Admin: 10/08/16 06:47 Dose: 500 mls/hr Insulin Human Regular 100 unit (/ Sodium Chloride) 100 mls @ 8 mls/hr IV TITRATE PIPPA; 8 UNIT/HR PRN Reason: Protocol Stop: 10/11/16 11:30 Last Titration: 10/11/16 11:05 Dose: 1 unit/hr, 1 mls/hr Sodium Chloride (Normal Saline) 1,000 mls @ 200 mls/hr IV ASDIRECTED PIPPA Last Admin: 10/08/16 08:38 Dose: 200 mls/hr Pantoprazole Sodium 40 mg/ (Sodium Chloride) 10 mls @ 300 mls/hr IVPUSH DAILY PIPPA Last Admin: 10/08/16 10:31 Dose: 300 mls/hr Dextrose/Sodium Chloride (Dextrose 5%-Normal Saline) 1,000 mls @ 150 mls/hr IV ASDIRECTED PIPPA Last Admin: 10/08/16 12:00 Dose: 150 mls/hr Sodium Chloride (Normal Saline) 1,000 mls @ 999 mls/hr IV ASDIRECTED PIPPA Last Admin: 10/08/16 14:20 Dose: 999 mls/hr Pantoprazole Sodium 80 mg/ (Sodium Chloride) 100 mls @ 10 mls/hr IV Q10H PIPPA Last Admin: 10/11/16 03:30 Dose: 10 mls/hr Dextrose/Sodium Chloride (Dextrose 5%-1/2 Ns) 1,000 mls @ 125 mls/hr IV ASDIRECTED PIPPA Last Admin: 10/08/16 18:54 Dose: 125 mls/hr Dextrose/Sodium Chloride (Dextrose 5%-Normal Saline) 1,000 mls @ 125 mls/hr IV ASDIRECTED PIPPA Potassium Chloride 40 meq/ (Sodium Chloride) 500 mls @ 125 mls/hr IV ONETIME ONE Stop: 10/09/16 02:00 Last Admin: 10/09/16 21:46 Dose: 125 mls/hr Dextrose/Sodium Chloride (Dextrose 5%-1/2 Ns) 1,000 mls @ 175 mls/hr IV ASDIRECTED PIPPA Dextrose/Water (Dextrose 5% In Water) 1,000 mls @ 175 mls/hr IV ASDIRECTED PIPPA Last Admin: 10/11/16 05:11 Dose: 175 mls/hr Potassium Chloride 40 meq/ (Dextrose/Water) 1,020 mls @ 175 mls/hr IV ASDIRECTED PIPPA Potassium Chloride 40 meq/ (Dextrose/Water) 1,020 mls @ 175 mls/hr IV ONETIME ONE Stop: 10/09/16 04:26 Last Admin: 10/08/16 22:57 Dose: 175 mls/hr Potassium Chloride 40 meq/ (Dextrose/Water) 1,020 mls @ 175 mls/hr IV ASDIRECTED ONE Stop: 10/09/16 15:19 Last Admin: 10/09/16 09:40 Dose: Not Given Potassium Phosphate 27 mmole/Magnesium Sulfate 4 gm/Dextrose/Water 1,017 mls @ 250 mls/hr IV ASDIRECTED ONE Stop: 10/09/16 13:40 Last Admin: 10/09/16 09:55 Dose: 250 mls/hr Lorazepam (Ativan) 0.5 mg IVPUSH STAT STA Stop: 10/08/16 05:59 Last Admin: 10/08/16 06:00 Dose: 0.5 mg Lorazepam (Ativan) 0.5 mg IVPUSH ONETIME ONE Stop: 10/08/16 06:00 Last Admin: 10/08/16 06:00 Dose: 0.5 mg Lorazepam (Ativan) 1 mg IVPUSH ONETIME ONE Stop: 10/08/16 06:54 Last Admin: 10/08/16 07:00 Dose: 1 mg Morphine Sulfate (Morphine) 2 mg IVPUSH Q4H PRN PRN Reason: Pain (severe 7-10) Stop: 10/09/16 08:39 Last Admin: 10/09/16 07:08 Dose: 2 mg Morphine Sulfate (Morphine) 2 mg IVPUSH Q4H PRN PRN Reason: Pain Last Admin: 10/10/16 09:59 Dose: 2 mg Ondansetron HCl (Zofran) 4 mg IVPUSH ONETIME ONE Stop: 10/08/16 04:56 Last Admin: 10/08/16 05:09 Dose: 4 mg Potassium Bicarbonate (Klor-Con Ef) 50 meq PO DAILY PIPPA Potassium Bicarbonate (Klor-Con Ef) 40 meq PO DAILY PIPPA Last Admin: 10/08/16 10:19 Dose: Not Given Potassium Chloride (Klor-Con M20) 40 meq PO ONETIME ONE Stop: 10/08/16 05:48 Last Admin: 10/08/16 08:27 Dose: Not Given Potassium Chloride (Klor-Con M20) 40 meq PO ONETIME ONE Stop: 10/09/16 21:06 Last Admin: 10/09/16 22:12 Dose: 40 meq Potassium Chloride (Klor-Con M20) 60 meq PO ONETIME ONE Stop: 10/10/16 21:06 Last Admin: 10/10/16 21:39 Dose: 60 meq - Exam Quality Assessment: central line/PICC (right IVJ), DVT prophylaxis (SCD's) General: alert, oriented, cooperative, mild distress Lungs: Clear to auscultation, Normal respiratory effort Cardiovascular: Regular Rate, Regular Rhythm Abdomen: bowel sounds present, soft, no distension, tenderness (diffuse with palpation but improved) Extremities: no edema, no calf tenderness Peripheral Pulses: 2+: radial (L), radial (R) Skin: warm, dry, intact Neurological: no new focal deficit Psy/Mental Status: alert, normal affect, normal mood - Problem List & Annotations (1) Altered mental status SNOMED Code(s): 408915033 Code(s): R41.82 - ALTERED MENTAL STATUS, UNSPECIFIED Status: Acute Current Visit: Yes (2) Diabetic ketoacidosis SNOMED Code(s): 632504884, 060003449 Code(s): E13.10 - OTH DIABETES MELLITUS WITH KETOACIDOSIS WITHOUT COMA Status: Acute Current Visit: Yes (3) Abdominal pain SNOMED Code(s): 83670396 Code(s): R10.9 - UNSPECIFIED ABDOMINAL PAIN Status: Acute Current Visit: No - Problem List Review Problem List Initiated/Reviewed/Updated: Yes - Plan Plan:: 1. DKA: -insulin drip d/c and patient started on SQ insulin (levemir 15 units BID). Started on home does of Novolog 16-20 units with meals. -BMP q8hrs (monitoring anion gap and bicarb) while patient transitions from the insulin drip. Current Bicarb is 19. Anion gap is 9. -tolerating oral intake -check sugars QIDAC 2. Chronic abdominal pain: -continue PO morphine 30mg q4hrs PRN 3. Electrolyte abnormalities (Potassium, magnesium, phosphorus): -electrolytes are stable. Patient receiving daily magnesium and phosphorus potential d/c tomorrow.
[2016-10-11] MEDS: Insulin Aspart 100 Units/ML 3 ML Pen SUBCUT SCH ×2 (12:09→17:38)
[2016-10-11] MEDS: Omeprazole 20 MG Cap.CR PO SCH (17:33)
[2016-10-11] MEDS: Ondansetron 4 MG/2 ML SDV IVPUSH PRN (18:31)
[2016-10-11 18:47] LABS: CHLORIDE,CL 108 mmol/L (98-110); SODIUM,NA 138 mmol/L (136-146)
[2016-10-12] MEDS: Ondansetron 4 MG/2 ML SDV IVPUSH PRN (04:11)
[2016-10-12] MEDS: diphenhydrAMINE 50 MG/ML SDV IVPUSH PRN ×2 (04:11→11:13)
[2016-10-12] MEDS: Morphine 15 MG Tab PO PRN ×2 (05:05→12:18)
[2016-10-12] MEDS: Phosphorus #1 250 MG Tab PO SCH (05:06)
[2016-10-12 05:40] LABS: CHLORIDE,CL 106 mmol/L (98-110); SODIUM,NA 141 mmol/L (136-146)
[2016-10-12] MEDS: Omeprazole 20 MG Cap.CR PO SCH (06:38)
[2016-10-12] MEDS: Insulin Aspart 100 Units/ML 3 ML Pen SUBCUT SCH ×2 (07:26→12:10)
[2016-10-12] MEDS: Magnesium Chloride 64 MG Tab.ER PO SCH (08:11)
[2016-10-12] MEDS: LORazepam 2 MG/ML MDV IVPUSH PRN (08:11)
[2016-10-12] MEDS: Insulin Detemir 100 Units/ML 3 ML Pen SUBCUT SCH (08:58)
[2016-10-12 12:14] VITALS: BP 114/83
--- NOTE | 2016-10-12 14:58 | PCM.DCSUM1 ---
Discharge Summary - Hospital Course Free Text/Narrative:: Admission diagnosis: 1. DKA Discharge diagnosis: 1. DKA, resolved 26 year old female with DM 1 that was admitted for DKA. Initial blood sugar was 757, pH 7.01 and bicarb of 5. Patient was given multiple IVF boluses, made NPO and started on insulin drip. Frequent BMP's done to assess bicarb and anion gap. Over several days, blood sugars improved to <200 and bicarb improved to 25. Patient transitioned from insulin drip to home dose of SQ insulin and short- acting insulin. She was tolerating oral intake at time of discharge with no nausea or vomiting. - Discharge Data Discharge Date: 10/12/16 Discharge Disposition: Home, Self-Care 01 Condition: Good - Discharge Diagnosis/Problem(s) (1) Altered mental status SNOMED Code(s): 676590456 ICD Code: R41.82 - ALTERED MENTAL STATUS, UNSPECIFIED Status: Acute (2) Diabetic ketoacidosis SNOMED Code(s): 244687436, 126454551 ICD Code: E13.10 - OTH DIABETES MELLITUS WITH KETOACIDOSIS WITHOUT COMA Status: Acute (3) Abdominal pain SNOMED Code(s): 71983576 ICD Code: R10.9 - UNSPECIFIED ABDOMINAL PAIN Status: Acute - Patient Summary/Data Operative Procedure(s) Performed: portacath removal, r - Patient Instructions Diet: Diabetic Diet Activity: As Tolerated Showering/Bathing: May Shower Notify Provider of: Fever, Increased Pain, Nausea and/or Vomiting - Discharge Plan Home Medications: Home Meds Insulin Detemir [Levemir] 15 unit SUBCUT BID 03/24/16 [History] LORazepam [Ativan] 0.5 mg PO BID PRN 03/24/16 [History] Ondansetron [Ondansetron ODT] 8 mg PO QID PRN 04/19/16 [History] Insulin Aspart [Novolog Flexpen] 16 - 20 unit SUBCUT TIDMEALS 05/15/16 [History] Omeprazole 20 mg PO BIDAC 05/15/16 [History] Albuterol Sulfate [Proair Hfa] 1 puff INH Q4H PRN 06/12/16 [History] Promethazine HCl 25 mg PO Q6H PRN 08/24/16 [History] Morphine [MS Contin] 60 mg PO Q6H 10/07/16 [History] Patient Handouts: Diabetic Ketoacidosis Referrals: Maynor Black MD [Physician] - - Discharge Summary/Plan Comment DC Time >30 min.: No Discharge Summary/Plan Comment: Admission diagnosis: 1. DKA Discharge diagnosis: 1. DKA, resolved 26 year old female with DM 1 that was admitted for DKA. Initial blood sugar was 757, pH 7.01 and bicarb of 5. Patient was given multiple IVF boluses, made NPO and started on insulin drip. Frequent BMP's done to assess bicarb and anion gap. Over several days, blood sugars improved to <200 and bicarb improved to 25. Patient transitioned from insulin drip to home dose of SQ insulin and short- acting insulin. She was tolerating oral intake at time of discharge with no nausea or vomiting. Discharge plan: 1. resumed home medications including diabetes medications 2. On September 27, 2016, she was provided a prescription for Morphine 60mg, 60 tabs , 0 refills that should have lasted 15 days or until today (10/12/16). Patient states that she has no pills left from that prescription. She has been hospitalized for 4 days and has not required this home medication, so she has run out of that medication very early. There was a prescription at the [facility] for Morphine 60mg QID, 120 tabs, 0 refills that cannot be filled until tomorrow (10/13/16) written by her PCP, Dr. Black. I gave her that prescription but told her that no narcotics would be prescribed while she waits to fill her new prescription tomorrow. Her boyfriend, who was in the room, was frustrated by the fact that she could not fill her prescription one day early and continually asked why this was not possible. 3. Patient has chronic abdominal pain. She is currently prescribed Morphine (MS Contin) 60mg QID. While NPO, she was treated with IV Morphine. Once able to tolerate oral intake, her abdominal pain was managed with Morphine PO 30mg BID. She did not request more pain medications while on this dose and stated that her abdominal pain was well controlled. 4. Patient will f/u with her PCP. - Patient Data Vitals - Most Recent: Last Vital Signs Temp 97.8 F 10/12/16 12:00 Pulse 104 H 10/12/16 12:00 Resp 16 10/12/16 12:00 BP 114/83 10/12/16 12:00 Pulse Ox 98 10/12/16 12:00 Weight - Most Recent: 106 lb 11.26 oz I&O - Last 24 hours: Intake & Output 10/11/16 10/12/16 10/12/16 22:59 06:59 14:59 Intake Total 1500 500 990 Output Total 1900 3000 1100 Balance -400 -2500 -110 Lab Results - Last 24 hrs: Laboratory Results - last 24 hr 10/11/16 10/11/16 10/11/16 Range/Units 17:25 18:22 20:58 WBC (4.0-11.0) K/uL RBC (4.30-5.90) M/uL Hgb (12.0-16.0) g/dL Hct (36.0-46.0) % MCV (80.0-98.0) fL MCH (27.0-32.0) pg MCHC (31.0-37.0) g/dL RDW Std Deviation (28.0-62.0) fl RDW Coeff of Zak (11.0-15.0) % Plt Count (150-400) K/uL MPV (7.40-12.00) fL Neut % (Auto) (48.0-80.0) % Lymph % (Auto) (16.0-40.0) % Mckinley % (Auto) (0.0-15.0) % Eos % (Auto) (0.0-7.0) % Baso % (Auto) (0.0-1.5) % Neut # (Auto) (1.4-5.7) K/uL Lymph # (Auto) (0.6-2.4) K/uL Mckinley # (Auto) (0.0-0.8) K/uL Eos # (Auto) (0.0-0.7) K/uL Baso # (Auto) (0.0-0.1) K/uL Nucleated RBC % /100WBC Nucleated RBCs # K/uL Sodium 138 (136-146) mmol/L Potassium 3.7 (3.5-5.1) mmol/L Chloride 108 (98-110) mmol/L Carbon Dioxide 20 L (21-31) mmol/L BUN 17 (6.0-23.0) mg/dL Creatinine 0.8 (0.6-1.5) mg/dL Est Cr Clr Drug Dosing 75.87 mL/min Estimated GFR (MDRD) > 60.0 ml/min Glucose 265 H (60-110) mg/dL POC Glucose 239 H 189 H (60-110) mg/dL Calcium 8.9 (8.8-10.8) mg/dL Phosphorus (2.4-4.7) mg/dL 10/12/16 10/12/16 10/12/16 Range/Units 05:12 05:12 06:34 WBC 5.65 (4.0-11.0) K/uL RBC 3.92 L (4.30-5.90) M/uL Hgb 11.1 L (12.0-16.0) g/dL Hct 35.1 L (36.0-46.0) % MCV 89.5 (80.0-98.0) fL MCH 28.3 (27.0-32.0) pg MCHC 31.6 (31.0-37.0) g/dL RDW Std Deviation 45.3 (28.0-62.0) fl RDW Coeff of Zak 14 (11.0-15.0) % Plt Count 287 (150-400) K/uL MPV 9.70 (7.40-12.00) fL Neut % (Auto) 36.5 L (48.0-80.0) % Lymph % (Auto) 53.5 H (16.0-40.0) % Mckinley % (Auto) 5.8 (0.0-15.0) % Eos % (Auto) 3.7 (0.0-7.0) % Baso % (Auto) 0.5 (0.0-1.5) % Neut # (Auto) 2.1 (1.4-5.7) K/uL Lymph # (Auto) 3.0 H (0.6-2.4) K/uL Mckinley # (Auto) 0.3 (0.0-0.8) K/uL Eos # (Auto) 0.2 (0.0-0.7) K/uL Baso # (Auto) 0.0 (0.0-0.1) K/uL Nucleated RBC % 0.0 /100WBC Nucleated RBCs # 0 K/uL Sodium 141 (136-146) mmol/L Potassium 4.1 (3.5-5.1) mmol/L Chloride 106 (98-110) mmol/L Carbon Dioxide 25 (21-31) mmol/L BUN 18 (6.0-23.0) mg/dL Creatinine 0.7 (0.6-1.5) mg/dL Est Cr Clr Drug Dosing 86.71 mL/min Estimated GFR (MDRD) > 60.0 ml/min Glucose 65 (60-110) mg/dL POC Glucose 76 (60-110) mg/dL Calcium 9.2 (8.8-10.8) mg/dL Phosphorus 5.5 H (2.4-4.7) mg/dL 10/12/16 10/12/16 Range/Units 08:58 11:36 WBC (4.0-11.0) K/uL RBC (4.30-5.90) M/uL Hgb (12.0-16.0) g/dL Hct (36.0-46.0) % MCV (80.0-98.0) fL MCH (27.0-32.0) pg MCHC (31.0-37.0) g/dL RDW Std Deviation (28.0-62.0) fl RDW Coeff of Zak (11.0-15.0) % Plt Count (150-400) K/uL MPV (7.40-12.00) fL Neut % (Auto) (48.0-80.0) % Lymph % (Auto) (16.0-40.0) % Mckinley % (Auto) (0.0-15.0) % Eos % (Auto) (0.0-7.0) % Baso % (Auto) (0.0-1.5) % Neut # (Auto) (1.4-5.7) K/uL Lymph # (Auto) (0.6-2.4) K/uL Mckinley # (Auto) (0.0-0.8) K/uL Eos # (Auto) (0.0-0.7) K/uL Baso # (Auto) (0.0-0.1) K/uL Nucleated RBC % /100WBC Nucleated RBCs # K/uL Sodium (136-146) mmol/L Potassium (3.5-5.1) mmol/L Chloride (98-110) mmol/L Carbon Dioxide (21-31) mmol/L BUN (6.0-23.0) mg/dL Creatinine (0.6-1.5) mg/dL Est Cr Clr Drug Dosing mL/min Estimated GFR (MDRD) ml/min Glucose (60-110) mg/dL POC Glucose 172 H 244 H (60-110) mg/dL Calcium (8.8-10.8) mg/dL Phosphorus (2.4-4.7) mg/dL Med Orders - Current: Current Medications Discontinued Medications Hydrocodone Bitart/Acetaminophen ([place] 325-5 Mg) 1 tab PO ONETIME ONE Stop: 10/08/16 05:00 Last Admin: 10/08/16 06:23 Dose: Not Given Diphenhydramine HCl (Benadryl) 50 mg IVPUSH Q8H PRN PRN Reason: Itching Last Admin: 10/12/16 11:13 Dose: 50 mg Sodium Chloride (Normal Saline) 3,000 mls @ 999 mls/hr IV .Bolus ONE Stop: 10/08/16 06:56 Last Admin: 10/08/16 04:15 Dose: 999 mls/hr Insulin Human Regular 100 unit (/ Sodium Chloride) 100 mls @ 4.53 mls/hr IV TITRATE PIPPA; 0.1 UNIT/KG/HR PRN Reason: Protocol Last Titration: 10/08/16 07:40 Dose: 0.08 unit/kg/hr, 4 mls/hr Potassium Chloride/Sodium Chloride (Normal Saline With 40 Meq Kcl) 500 mls @ 125 mls/hr IV NOW STA Stop: 10/08/16 10:19 Last Admin: 10/08/16 08:28 Dose: Not Given Potassium Chloride 40 meq/ (Sodium Chloride) 520 mls @ 500 mls/hr IV NOW ONE Stop: 10/08/16 07:32 Last Admin: 10/08/16 06:47 Dose: 500 mls/hr Insulin Human Regular 100 unit (/ Sodium Chloride) 100 mls @ 8 mls/hr IV TITRATE PIPPA; 8 UNIT/HR PRN Reason: Protocol Stop: 10/11/16 11:30 Last Titration: 10/11/16 11:30 Dose: 0 unit/hr, 0 mls/hr Sodium Chloride (Normal Saline) 1,000 mls @ 200 mls/hr IV ASDIRECTED PIPPA Last Admin: 10/08/16 08:38 Dose: 200 mls/hr Pantoprazole Sodium 40 mg/ (Sodium Chloride) 10 mls @ 300 mls/hr IVPUSH DAILY PIPPA Last Admin: 10/08/16 10:31 Dose: 300 mls/hr Dextrose/Sodium Chloride (Dextrose 5%-Normal Saline) 1,000 mls @ 150 mls/hr IV ASDIRECTED PIPPA Last Admin: 10/08/16 12:00 Dose: 150 mls/hr Sodium Chloride (Normal Saline) 1,000 mls @ 999 mls/hr IV ASDIRECTED PIPPA Last Admin: 10/08/16 14:20 Dose: 999 mls/hr Pantoprazole Sodium 80 mg/ (Sodium Chloride) 100 mls @ 10 mls/hr IV Q10H PIPPA Last Admin: 10/11/16 03:30 Dose: 10 mls/hr Dextrose/Sodium Chloride (Dextrose 5%-1/2 Ns) 1,000 mls @ 125 mls/hr IV ASDIRECTED PIPPA Last Admin: 10/08/16 18:54 Dose: 125 mls/hr Dextrose/Sodium Chloride (Dextrose 5%-Normal Saline) 1,000 mls @ 125 mls/hr IV ASDIRECTED PIPPA Potassium Chloride 40 meq/ (Sodium Chloride) 500 mls @ 125 mls/hr IV ONETIME ONE Stop: 10/09/16 02:00 Last Admin: 10/09/16 21:46 Dose: 125 mls/hr Dextrose/Sodium Chloride (Dextrose 5%-1/2 Ns) 1,000 mls @ 175 mls/hr IV ASDIRECTED PIPPA Dextrose/Water (Dextrose 5% In Water) 1,000 mls @ 175 mls/hr IV ASDIRECTED PIPPA Last Admin: 10/11/16 05:11 Dose: 175 mls/hr Potassium Chloride 40 meq/ (Dextrose/Water) 1,020 mls @ 175 mls/hr IV ASDIRECTED PIPPA Potassium Chloride 40 meq/ (Dextrose/Water) 1,020 mls @ 175 mls/hr IV ONETIME ONE Stop: 10/09/16 04:26 Last Admin: 10/08/16 22:57 Dose: 175 mls/hr Potassium Chloride 40 meq/ (Dextrose/Water) 1,020 mls @ 175 mls/hr IV ASDIRECTED ONE Stop: 10/09/16 15:19 Last Admin: 10/09/16 09:40 Dose: Not Given Potassium Phosphate 27 mmole/Magnesium Sulfate 4 gm/Dextrose/Water 1,017 mls @ 250 mls/hr IV ASDIRECTED ONE Stop: 10/09/16 13:40 Last Admin: 10/09/16 09:55 Dose: 250 mls/hr Potassium Chloride/Sodium Chloride (Normal Saline With 40 Meq Kcl) 500 mls @ 125 mls/hr IV ASDIRECTED [facility] Insulin Aspart (Novolog) 16 - 20 unit SUBCUT TIDMEALS [facility] Last Admin: 10/12/16 12:10 Dose: 4 units Insulin Detemir (Levemir) 15 unit SUBCUT BID [facility] Last Admin: 10/12/16 08:58 Dose: 15 units Lorazepam (Ativan) 0.5 mg IVPUSH STAT STA Stop: 10/08/16 05:59 Last Admin: 10/08/16 06:00 Dose: 0.5 mg Lorazepam (Ativan) 0.5 mg IVPUSH ONETIME ONE Stop: 10/08/16 06:00 Last Admin: 10/08/16 06:00 Dose: 0.5 mg Lorazepam (Ativan) 1 mg IVPUSH ONETIME ONE Stop: 10/08/16 06:54 Last Admin: 10/08/16 07:00 Dose: 1 mg Lorazepam (Ativan) 1 mg IVPUSH Q4H PRN PRN Reason: Agitation Last Admin: 10/12/16 08:11 Dose: 1 mg Magnesium Chloride (Mag-64) 64 mg PO DAILY [facility] Last Admin: 10/12/16 08:11 Dose: 64 mg Morphine Sulfate (Morphine) 2 mg IVPUSH Q4H PRN PRN Reason: Pain (severe 7-10) Stop: 10/09/16 08:39 Last Admin: 10/09/16 07:08 Dose: 2 mg Morphine Sulfate (Morphine) 2 mg IVPUSH Q4H PRN PRN Reason: Pain Last Admin: 10/10/16 09:59 Dose: 2 mg Morphine Sulfate (Morphine) 30 mg PO Q4H PRN PRN Reason: Pain Last Admin: 10/12/16 12:18 Dose: 30 mg Omeprazole (Omeprazole) 20 mg PO BIDAC PIPPA Last Admin: 10/12/16 06:38 Dose: 20 mg Ondansetron HCl (Zofran) 4 mg IVPUSH ONETIME ONE Stop: 10/08/16 04:56 Last Admin: 10/08/16 05:09 Dose: 4 mg Ondansetron HCl (Zofran) 4 mg IVPUSH Q4H PRN PRN Reason: Nausea Last Admin: 10/12/16 04:11 Dose: 4 mg Potassium Bicarbonate (Klor-Con Ef) 50 meq PO DAILY PIPPA Potassium Bicarbonate (Klor-Con Ef) 40 meq PO DAILY [facility] Last Admin: 10/08/16 10:19 Dose: Not Given Potassium Chloride (Klor-Con M20) 40 meq PO ONETIME ONE Stop: 10/08/16 05:48 Last Admin: 10/08/16 08:27 Dose: Not Given Potassium Chloride (Klor-Con M20) 40 meq PO ONETIME ONE Stop: 10/09/16 21:06 Last Admin: 10/09/16 22:12 Dose: 40 meq Potassium Chloride (Klor-Con M20) 60 meq PO ONETIME ONE Stop: 10/10/16 21:06 Last Admin: 10/10/16 21:39 Dose: 60 meq Sodium Phosphate (Neutra-Phos) 250 mg PO QID [facility] Last Admin: 10/12/16 05:06 Dose: 250 mg *Q Meaningful Use (DIS) - VTE *Q VTE Criteria *Q: - Stroke *Q Stroke Criteria *Q: - AMI *Q AMI Criteria *Q:
== END 2016-10-12 12:45 | disposition home or self-care (01) | DRG 639 ==
LOC: MW.ED 03:53 → MW.ICU 06:04 → UNDOADMIN 06:04
PROVIDERS: ADMIT Internal Medicine; ATTEND Internal Medicine
DX: E10.10 Type 1 diabetes mellitus with ketoacidosis without coma (principal); R10.9 Unspecified abdominal pain; R41.82 Altered mental status, unspecified; F41.8 Other specified anxiety disorders; Z88.8 Allergy status to other drugs, medicaments and biological substances; Z79.899 Other long term (current) drug therapy; Z79.4 Long term (current) use of insulin
CPT/HCPCS: 36410; 36415; 71010; 71010-26; 80048; 80053; 80076; 80305; 81001; 82009; 82803; 82962; 83735; 84100; 84484; 84703; 85025; 85610; 93005; 96361; 96365; 96375; 99285-25; 99291; 99292; A9270-GY; C9113; G0480; J1200; J1815-GY ×2; J2060; J2270; J2405; J3475; J3480; J7030; J7040; J7042; J7060

== ENCOUNTER → 2016-10-20 | Outpatient (CLI) | payer MEDICAID ==
--- NOTE | 2016-10-20 16:32 | CR ---
EXAMINATION: Lumbar spine HISTORY: Low back pain COMPARISON: None TECHNIQUE: AP and lateral views FINDINGS: The lumbar spinal alignment is normal. The vertebral body heights and disc spaces appear w ell-maintained. There is no fracture or dislocation. The SI joints are symmetric. Bone mineralizatio n is normal. IMPRESSION: Grossly unremarkable lumbar spine.
== END ==
LOC: MW.CHFP 12:12
PROVIDERS: ATTEND Family Medicine
DX: M54.5 Low back pain (principal)
CPT/HCPCS: 72100; 72100-26

== ENCOUNTER 2016-10-27 14:22 | Observation (INO) | payer MEDICAID ==
[2016-10-27] MEDS ORDERED: Sodium Chloride 0.9% 2,000 ML IV SCH (15:30)
[2016-10-27] MEDS ORDERED: Albuterol 8 GM Inhaler INH PRN (15:31)
--- NOTE | 2016-10-27 15:42 | PCM.HP ---
<Gopi Negrete - Last Filed: 10/27/16 15:35> H&P History of Present Illness - General Date of Service: 10/27/16 Admit Problem/Dx: Admission Diagnosis/Problem Admission Diagnosis/Problem Dehydration Source of Information: Patient History Limitations: Reports: No limitations - History of Present Illness Initial Comments - Free Text/Narative: Admission diagnoses: #1. Dehydration #2. Metabolic acidosis #3. Hypercalcemia #4. Elevated liver enzymes, chronic #5. Chronic abdominal pain with nausea and vomiting #6. Diabetes mellitus #7. Opioid dependence 26-year-old female is being admitted with dehydration, hypercalcemia and metabolic acidosis. Patient has a significant history of multiple hospitalizations for DKA and chronic abdominal pain. She was seen by her primary care physician today who did routine blood work on her and it was found that she had an elevated calcium and also metabolic acidosis with a bicarbonate level of 18. Urinalysis showed glucose greater than 100 but no ketones. Her random glucose was 209. No ketones are noted in the blood. Urine drug screen is positive for opiates secondary to the patient's home dose of morphine. CBC shows elevated lymphocytes with a normal white blood cell count. Previously, when she had similar labs, she received IV hydration in the ER and was discharged home but subsequently was admitted a few days later with DKA. She is being admitted for hydration in order to prevent a future admission for DKA. Patient reports to her PCP this morning that she has had one week of abdominal pain, nausea and vomiting. She feels as if "her body has been drained"and has no energy. She did take her morning dose of Lantus and checked her blood sugars which were elevated but she is unsure how high. She also notes that because of the nausea and vomiting she has been unable to keep down some of her pain medications which is morphine 60 mg 4 times a day when necessary for pain. Her last dose of morphine was last evening. She denies any chest pain, palpitations , shortness of breath, wheezing, cough, headaches, dizziness. - Related Data Allergies/Adverse Reactions: Allergies Allergy/AdvReac Type Severity Reaction Status Date / Time acetaminophen [From Tylenol] Allergy Liver Verified 10/08/16 03:57 Problems amoxicillin Allergy Hives Verified 10/08/16 03:57 amoxicillin trihydrate Allergy Hives Verified 10/08/16 03:57 [From Amoxil] ibuprofen Allergy Liver Verified 10/08/16 03:57 Problems ketorolac tromethamine Allergy Hives Verified 10/08/16 03:57 [From Toradol] metoclopramide HCl Allergy Airway Verified 10/08/16 03:57 [From Reglan] Tightness tramadol Allergy Hives Verified 10/08/16 03:57 Home Medications: Home Meds Insulin Detemir [Levemir] 15 unit SUBCUT BID 03/24/16 [History] LORazepam [Ativan] 0.5 mg PO BID PRN 03/24/16 [History] Ondansetron [Ondansetron ODT] 8 mg PO QID PRN 04/19/16 [History] Insulin Aspart [Novolog Flexpen] 16 - 20 unit SUBCUT TIDMEALS 05/15/16 [History] Omeprazole 20 mg PO BIDAC 05/15/16 [History] Albuterol Sulfate [Proair Hfa] 1 puff INH Q4H PRN 06/12/16 [History] Promethazine HCl 25 mg PO Q6H PRN 08/24/16 [History] Morphine [MS Contin] 60 mg PO Q6H 10/07/16 [History] Past Medical History - Past Health History Medical/Surgical History: Denies Medical/Surgical History HEENT History: Reports: Allergic rhinitis Other HEENT History: dental abcess Cardiovascular History: Reports: None Respiratory History: Reports: Asthma Gastrointestinal History: Reports: GI bleed, Hepatitis, PUD, Other (see below) Other Gastrointestinal History: hx of C-diff, hx of Hepatitis B Genitourinary History: Reports: UTI, recurrent Other Genitourinary History: current UTI [employer]IFIER History: Reports: Other (see below) Other OB/BYN History: had miscarriage twice Musculoskeletal History: Reports: Back pain, chronic, Other (see below) Neurological History: Reports: Migraines, Seizure 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, last on was 4 months ago Psychiatric History: Reports: Anxiety, Depression Endocrine/Metabolic History: Reports: Diabetes, type I Hematologic History: Reports: Anemia Immunologic History: Reports: None Oncologic (Cancer) History: Reports: None Dermatologic History: Reports: Other (see below) Other Dermatologic History: possible infection from port removal R upper chest - Infectious Disease History Infectious Disease History: Reports: C-difficile, Hepatitis B - Past Surgical History Head Surgeries/Procedures: Reports: None HEENT Surgical History: Reports: Tonsillectomy Cardiovascular Surgical History: Reports: None Respiratory Surgical History: Reports: None Other Respiratory Surgeries/Procedures: History of Asthma at 11 years old. GI Surgical History: Reports: Appendectomy, Cholecystectomy, ERCP Female Surgical History: Reports: None Endocrine Surgical History: Reports: None Neurological Surgical History: Reports: None Musculoskeletal Surgical History: Reports: None Oncologic Surgical History: Reports: None Dermatological Surgical History: Reports: None - History Comment History Comment: She has had over [address] scans in the last 4 years. Social & Family History - Family History Family Medical History: Noncontributory HEENT: Reports: Impaired vision Cardiac: Reports: Heart failure Respiratory: Reports: Asthma GI: Reports: None : Reports: Renal disease/insufficiency OBGYN: Reports: Musculoskeletal: Reports: Back pain, chronic Neurological: Reports: Seizure Psychiatric: Reports: None Endocrine/Metabolic: Reports: Diabetes, type I Hematologic: Reports: None Immunologic: Reports: None Dermatologic: Reports: None Oncologic: Reports: Breast, Cervix - Tobacco Use Smoking Status *Q: Former Smoker Years of Tobacco use: 4 Packs/Tins Daily: 0.5 Used Tobacco, but Quit: Yes Month Tobacco Last Used: 07/2015 Second Hand Smoke Exposure: Yes - Caffeine Use Caffeine Use: Reports: None - Alcohol Use Days Per Week of Alcohol Use: 0 - Recreational Drug Use Recreational Drug Use: No Drug Use in Last 12 Months: No Recreational Drug Type: Reports: Other (see below) Other Recreational Drug Type: patient verbalized she took oxymorphone prior to admission Recreational Drug Use Frequency: Patient Refuses To Answer - Living Situation & Occupation Living situation: Reports: with significant other (fiance.), with family, other (She shares a camper with her fiance and father) Occupation: unemployed H&P Review of Systems - Review of Systems: Review Of Systems: See Below General: Reports: weakness, fatigue HEENT: Reports: no symptoms Pulmonary: Reports: No Symptoms Cardiovascular: Reports: no symptoms Gastrointestinal: Reports: Abdominal pain (Chronic and diffuse), Decreased appetite, Nausea, Vomiting. Denies: Constipation, Diarrhea Genitourinary: Reports: no symptoms Musculoskeletal: Reports: no symptoms Skin: Reports: no symptoms Psychiatric: Reports: no symptoms Neurological: Reports: No Symptoms Hematologic/Lymphatic: Reports: no symptoms Immunologic: Reports: no symptoms Exam - Exam Exam: See Below - Vital Signs Vital Signs: Last Vital Signs Temp 98.4 F 10/27/16 14:22 Pulse 117 H 10/27/16 14:22 Resp 18 10/27/16 14:22 BP 139/82 10/27/16 14:22 Pulse Ox 97 10/27/16 14:22 Weight: 48.1 kg - Exam Quality Assessment: DVT prophylaxis (scd's, Lovenox) General: alert, oriented, cooperative, mild distress HEENT: Hearing intact, Other (Buccal mucosa is very dry.) Lungs: Clear to auscultation, Normal respiratory effort Cardiovascular: regular rhythm, tachycardia (117 beats per minute) Abdomen: normal bowel sounds, soft, tenderness (Diffuse tenderness with palpation). No: guarding, rebound Extremities: normal inspection. No: calf tenderness, edema Peripheral Pulses: 2+: radial (L), radial (R) Skin: warm, dry, intact Neuro Extensive - Mental Status: alert, oriented x3, normal cognition Psychiatric: alert, other (Patient is extremely tearful during admission.) *Q Meaningful Use (ADM) - VTE *Q VTE Criteria *Q: - Stroke *Q Stroke Criteria *Q: - AMI *Q AMI Criteria *Q: - Problem List (1) Hypercalcemia SNOMED Code(s): 55265645 ICD Code: E83.52 - HYPERCALCEMIA Status: Acute Current Visit: Yes (2) Diabetes mellitus SNOMED Code(s): 65706034 ICD Code: E11.9 - TYPE 2 DIABETES MELLITUS WITHOUT COMPLICATIONS Status: Acute Current Visit: No (3) Abdominal pain SNOMED Code(s): 43912048 ICD Code: R10.9 - UNSPECIFIED ABDOMINAL PAIN Status: Acute Current Visit : No (4) Dehydration SNOMED Code(s): 65019099 ICD Code: E86.0 - DEHYDRATION Status: Acute Current Visit: No Problem List Initiated/Reviewed/Updated: Yes Orders Last 24hrs: Active Orders 24 hr Category Date Time Status Patient Status [ADT] Routine ADT 10/27/16 15:24 Active Antiembolic Devices [RC] PER UNIT ROUTINE Care 10/27/16 15:26 Active Blood Glucose Check, Bedside [RC] TIDAC Care 10/27/16 15:33 Active Height and Weight [RC] DAILY Care 10/27/16 15:24 Active Intake and Output [RC] QSHIFT Care 10/27/16 15:25 Active Notify Provider Vital Signs [RC] ASDIRECTED Care 10/27/16 15:25 Active Oxygen Therapy [RC] PRN Care 10/27/16 15:24 Active Pulse Oximetry [RC] PRN Care 10/27/16 15:25 Active Up With Assistance [RC] ASDIRECTED Care 10/27/16 15:24 Active VTE/DVT Education [RC] PER UNIT ROUTINE Care 10/27/16 15:24 Active Vital Signs [RC] Q4H Care 10/27/16 15:24 Active [employer] Diet [DIET] Diet 10/27/16 Breakfast Active BASIC METABOLIC PANEL,BMP [CHEM] AM Lab 10/28/16 05:11 Ordered CBC WITH AUTO DIFF [HEME] AM Lab 10/28/16 05:11 Ordered Albuterol [Proventil HFA] Med 10/27/16 15:31 Ordered DOSE gm INH Q4H PRN Enoxaparin [Lovenox] Med 10/27/16 15:30 Ordered 40 mg SUBCUT DAILY Insulin Aspart [NovoLOG] Med 10/27/16 17:00 Ordered See Protocol SUBCUT TIDAC Insulin Detemir [Levemir] Med 10/27/16 21:00 Ordered 15 unit SUBCUT BID LORazepam [Ativan] Med 10/27/16 15:31 Ordered 0.5 mg PO BID PRN Morphine [MS Contin] Med 10/27/16 15:24 Ordered 30 mg PO Q8H PRN Omeprazole Med 10/27/16 17:00 Ordered 20 mg PO BIDAC Ondansetron [Zofran] Med 10/27/16 15:24 Ordered 4 mg IVPUSH Q4H PRN Sodium Chloride 0.9% [Normal Saline] 1,000 ml Med 10/27/16 15:30 Ordered IV ASDIRECTED Sodium Chloride 0.9% [Normal Saline] 2,000 ml Med 10/27/16 15:30 Ordered IV .BOLUS Sequential Compression Device [OM.PC] Per Unit Routine Oth 10/27/16 15:26 Ordered Resuscitation Status Routine Resus Stat 10/27/16 15:24 Ordered Medication Orders Albuterol (Proventil Hfa) gm INH Q4H PRN PRN Reason: Dyspnea Enoxaparin Sodium (Lovenox) 40 mg SUBCUT DAILY [facility] Sodium Chloride (Normal Saline) 2,000 mls @ 999 mls/hr IV .BOLUS PIPPA Sodium Chloride (Normal Saline) 1,000 mls @ 125 mls/hr IV ASDIRECTED [facility] Insulin Aspart (Novolog) 0 unit SUBCUT TIDAC PIPPA PRN Reason: Protocol Insulin Detemir (Levemir) 15 unit SUBCUT BID PIPPA Lorazepam (Ativan) 0.5 mg PO BID PRN PRN Reason: Anxiety Morphine Sulfate (Ms Contin) 30 mg PO Q8H PRN PRN Reason: Abdominal Pain Omeprazole (Omeprazole) 20 mg PO BIDAC PIPPA Ondansetron HCl (Zofran) 4 mg IVPUSH Q4H PRN PRN Reason: Nausea Assessment/Plan Comment:: 26-year-old female admitted with hypercalcemia, abdominal pain with nausea and vomiting and metabolic acidosis. #1. Chronic abdominal pain with nausea and vomiting -Patient will receive IV Zofran as needed #2. Metabolic acidosis: -Patient's bicarbonate is 18. There are no ketones in the blood or urine. Random glucose is 209. She does not appear to be in DKA. -Patient will receive a 2 L bolus and then started on maintenance fluids of normal saline at 125 cc/hour. #3. Hypercalcemia: -Calcium is 11.2 which is mildly elevated from the higher range of normal which is 10.8. Will monitor this with an a.m. BMP. #4. Diabetes mellitus type 2: -Bedside blood sugar checks 3 times a day and at meals. NovoLog sliding scale started. -Patient's home dose of Lantus restarted. #5. Dehydration secondary to vomiting: -BUN and creatinine are within normal limits. -Patient will be given a 2 L normal saline bolus and then started on maintenance fluids of normal saline at 125 cc/hour. #6. Chronic abdominal pain: -By mouth Morphine 30 mg every 8 hours as needed for pain. Disposition: One to 2 days pending improvement <Kash Salgado - Last Filed: 10/27/16 15:57> H&P History of Present Illness - General Admit Problem/Dx: Admission Diagnosis/Problem Admission Diagnosis/Problem Dehydration - History of Present Illness Initial Comments - Free Text/Narative: I performed a history and physical examination of the patient and I have discussed his management with the resident. I have reviewed the residents note and agree with the documented findings and plan of care. Exam - Vital Signs Vital Signs: Last Vital Signs Temp 36.9 C 10/27/16 14:22 Pulse 117 H 10/27/16 14:22 Resp 18 10/27/16 14:22 BP 139/82 10/27/16 14:22 Pulse Ox 96 10/27/16 14:25 *Q Meaningful Use (ADM) - VTE *Q VTE Criteria *Q: - Stroke *Q Stroke Criteria *Q: - AMI *Q AMI Criteria *Q: Orders Last 24hrs: Active Orders 24 hr Category Date Time Status Patient Status [ADT] Routine ADT 10/27/16 15:24 Active Antiembolic Devices [RC] PER UNIT ROUTINE Care 10/27/16 15:26 Active Blood Glucose Check, Bedside [RC] TIDAC Care 10/27/16 15:33 Active Intake and Output [RC] Q12H Care 10/27/16 15:25 Active Notify Provider Vital Signs [RC] ASDIRECTED Care 10/27/16 15:25 Active Oxygen Therapy [RC] PRN Care 10/27/16 15:24 Active Pulse Oximetry [RC] PRN Care 10/27/16 15:25 Active Up With Assistance [RC] ASDIRECTED Care 10/27/16 15:24 Active Vital Signs [RC] Q4H Care 10/27/16 15:24 Active [employer] Diet [DIET] Diet 10/27/16 Breakfast Active BASIC METABOLIC PANEL,BMP [CHEM] AM Lab 10/28/16 05:11 Ordered CBC WITH AUTO DIFF [HEME] AM Lab 10/28/16 05:11 Ordered Albuterol [Ventolin HFA] Med 10/27/16 15:31 Active 0 gm INH Q4H PRN Enoxaparin [Lovenox] Med 10/27/16 15:30 Active 40 mg SUBCUT DAILY Insulin Aspart [NovoLOG] Med 10/27/16 17:00 Active See Protocol SUBCUT TIDAC Insulin Detemir [Levemir] Med 10/27/16 21:00 Active 15 unit SUBCUT BID LORazepam [Ativan] Med 10/27/16 15:31 Active 0.5 mg PO BID PRN Morphine [MS Contin] Med 10/27/16 15:24 Active 30 mg PO Q8H PRN Omeprazole Med 10/27/16 17:00 Active 20 mg PO BIDAC Ondansetron [Zofran] Med 10/27/16 15:24 Active 4 mg IVPUSH Q4H PRN Sodium Chloride 0.9% [Normal Saline] 1,000 ml Med 10/27/16 15:30 Active IV ASDIRECTED Sodium Chloride 0.9% [Normal Saline] 2,000 ml Med 10/27/16 15:30 Active IV .BOLUS Sequential Compression Device [OM.PC] Per Unit Routine Oth 10/27/16 15:26 Ordered Resuscitation Status Routine Resus Stat 10/27/16 15:24 Ordered Medication Orders Albuterol (Ventolin Hfa) 0 gm INH Q4H PRN PRN Reason: Dyspnea Enoxaparin Sodium (Lovenox) 40 mg SUBCUT DAILY PIPPA Sodium Chloride (Normal Saline) 2,000 mls @ 999 mls/hr IV .BOLUS PIPPA Sodium Chloride (Normal Saline) 1,000 mls @ 125 mls/hr IV ASDIRECTED PIPPA Insulin Aspart (Novolog) 0 unit SUBCUT TIDAC PIPPA PRN Reason: Protocol Insulin Detemir (Levemir) 15 unit SUBCUT BID PIPPA Lorazepam (Ativan) 0.5 mg PO BID PRN PRN Reason: Anxiety Morphine Sulfate (Ms Contin) 30 mg PO Q8H PRN PRN Reason: Abdominal Pain Omeprazole (Omeprazole) 20 mg PO BIDAC PIPPA Ondansetron HCl (Zofran) 4 mg IVPUSH Q4H PRN PRN Reason: Nausea
[2016-10-27] MEDS: Enoxaparin 40 MG/0.4 ML Syringe SUBCUT SCH (16:07)
[2016-10-27] MEDS: Omeprazole 20 MG Cap.CR PO SCH (16:15)
[2016-10-27] MEDS: Morphine 30 MG Tab.ER PO PRN (16:15)
[2016-10-27] MEDS: LORazepam 0.5 MG Tab PO PRN (16:16)
[2016-10-27] MEDS: Insulin Aspart 100 Units/ML 3 ML Pen SUBCUT SCH (16:19)
[2016-10-27] MEDS ORDERED: Sodium Chloride 0.9% 1,000 ML IV SCH ×2 (17:00→19:00)
[2016-10-27] MEDS: Ondansetron 4 MG/2 ML SDV IVPUSH PRN (17:10)
[2016-10-27] MEDS: diphenhydrAMINE 50 MG Cap PO PRN (18:13)
[2016-10-27] MEDS: Sodium Chloride 0.9% 1,000 ML IV SCH (21:13)
[2016-10-27] MEDS: Insulin Detemir 100 Units/ML 3 ML Pen SUBCUT SCH (21:13)
[2016-10-27] MEDS ORDERED: Insulin Aspart 100 Units/ML 3 ML Pen SUBCUT ONE (21:25)
[2016-10-28] MEDS: LORazepam 0.5 MG Tab PO PRN (01:37)
[2016-10-28] MEDS: Morphine 30 MG Tab.ER PO PRN ×2 (01:38→11:27)
[2016-10-28] MEDS: Sodium Chloride 0.9% 1,000 ML IV SCH (05:30)
[2016-10-28 06:31] LABS: CHLORIDE,CL 112 mmol/L (98-110); SODIUM,NA 140 mmol/L (136-146)
[2016-10-28] MEDS: Omeprazole 20 MG Cap.CR PO SCH (06:55)
[2016-10-28] MEDS: Enoxaparin 40 MG/0.4 ML Syringe SUBCUT SCH (08:45)
[2016-10-28] MEDS: Insulin Aspart 100 Units/ML 3 ML Pen SUBCUT SCH ×2 (08:45→11:40)
[2016-10-28] MEDS: Insulin Detemir 100 Units/ML 3 ML Pen SUBCUT SCH (08:46)
[2016-10-28] MEDS: diphenhydrAMINE 50 MG Cap PO PRN (11:27)
[2016-10-28] MEDS: Ondansetron 4 MG/2 ML SDV IVPUSH PRN (11:27)
[2016-10-28 13:03] VITALS: BP 90/56
--- NOTE | 2016-10-28 13:44 | PCM.DCSUM1 ---
Discharge Summary - Hospital Course HPI Initial Comments: the patient was admitted from the clinic secondary to hypercalcemia, hyperglycemia and pain. - Discharge Data Discharge Date: 10/28/16 Discharge Disposition: Home, Self-Care 01 Condition: Fair - Patient Summary/Data Hospital Course: The patient is a 26-year-old lady who has a history of type 1 diabetes mellitus , insulin-dependent and multiple hospital admissions secondary to diabetic ketoacidosis, failure to care for self, chronic abdominal pain and likely drug- seeking behavior. The patient was admitted directly from her primary care physician's clinic office and she was noted to be hypercalcemic. She was also severely dehydrated he did not have any evidence of diabetic ketoacidosis. The patient reportedly has been compliant with her medications in particular the insulin however, there is some concern about this. The patient also likely has diabetic gastroparesis that is associated with poorly managed type 1 diabetes. Patient was admitted secondary to hypercalcemia and hyperglycemia. The patient was fluid rehydrated and her pain was controlled. Then hospitalization the patient was resuscitated with 2 L of normal saline bolus and then at 125 mL per hour. She tolerated this well. She was also kept on high-dose sliding scale insulin and had at least one incidence of hyperglycemia. The patient will be discharged and she has medications at home and does not need refills. Patient also has been recommended to followup with mental health counselor to address rationale as to why the patient is not wanting to take care of herself. I have recommended strongly that the patient followup with psychiatry. By day of discharge the patient's hypercalcemia had normalized and was low at 8.0 mg deciliter. The patient's blood glucose was 230 mg/dL. He is to be discharged to followup with her primary care physician, diabetic diet as tolerated and activity as tolerated. - Patient Instructions Diet: Diabetic Diet Notify Provider of: Fever, Increased Pain - Discharge Plan Home Medications: Home Meds Insulin Detemir [Levemir] 15 unit SUBCUT BID 03/24/16 [History] LORazepam [Ativan] 0.5 mg PO BID PRN 03/24/16 [History] Ondansetron [Ondansetron ODT] 8 mg PO QID PRN 04/19/16 [History] Insulin Aspart [Novolog Flexpen] 16 - 20 unit SUBCUT TIDMEALS 05/15/16 [History] Omeprazole 20 mg PO DAILY 05/15/16 [History] Albuterol Sulfate [Proair Hfa] 1 puff INH Q4H PRN 06/12/16 [History] Promethazine HCl 25 mg PO Q6H PRN 08/24/16 [History] Morphine [MS Contin] 60 mg PO Q6H 10/07/16 [History] Budesonide/Formoterol [Symbicort 160-4.5 MCG] 1 puff INH BID 10/27/16 [History] DULoxetine HCl [Cymbalta] 30 mg PO DAILY 10/27/16 [History] Patient Handouts: Hypercalcemia, Dehydration, Adult Referrals: PCP,None [Ordering Only Provider] - (pls ff up with your PCP 1-2 weeks) - Discharge Summary/Plan Comment DC Time >30 min.: Yes - General Info Date of Service: 10/28/16 Admission Dx/Problem (Free Text: Admission Diagnosis/Problem Admission Diagnosis/Problem Dehydration Functional Status: Reports: pain controlled - Review of Systems General: Reports: No Symptoms HEENT: Reports: no symptoms Pulmonary: Reports: no symptoms Cardiovascular: Reports: No Symptoms Gastrointestinal: Reports: Abdominal pain Genitourinary: Reports: no symptoms Musculoskeletal: Reports: no symptoms Skin: Reports: no symptoms Neurological: Reports: No Symptoms Psychiatric: Reports: depression, mood lability - Patient Data Vitals - Most Recent: Last Vital Signs Temp 36.3 C 10/28/16 11:00 Pulse 86 10/28/16 11:00 Resp 18 10/28/16 11:00 BP 90/56 L 10/28/16 11:00 Pulse Ox 94 L 10/28/16 11:00 Weight - Most Recent: 48.1 kg I&O - Last 24 hours: Intake & Output 10/27/16 10/28/16 10/28/16 22:59 06:59 14:59 Intake Total 1000 2844 Output Total 0 1000 Balance 1000 1844 Lab Results - Last 24 hrs: Laboratory Results - last 24 hr 10/27/16 10/27/16 10/27/16 Range/Units 16:17 17:59 22:49 WBC (4.0-11.0) K/uL RBC (4.30-5.90) M/uL Hgb (12.0-16.0) g/dL Hct (36.0-46.0) % MCV (80.0-98.0) fL MCH (27.0-32.0) pg MCHC (31.0-37.0) g/dL RDW Std Deviation (28.0-62.0) fl RDW Coeff of Zak (11.0-15.0) % Plt Count (150-400) K/uL MPV (7.40-12.00) fL Neut % (Auto) (48.0-80.0) % Lymph % (Auto) (16.0-40.0) % Taliaferro % (Auto) (0.0-15.0) % Eos % (Auto) (0.0-7.0) % Baso % (Auto) (0.0-1.5) % Neut # (Auto) (1.4-5.7) K/uL Lymph # (Auto) (0.6-2.4) K/uL Taliaferro # (Auto) (0.0-0.8) K/uL Eos # (Auto) (0.0-0.7) K/uL Baso # (Auto) (0.0-0.1) K/uL Nucleated RBC % /100WBC Nucleated RBCs # K/uL Sodium (136-146) mmol/L Potassium (3.5-5.1) mmol/L Chloride (98-110) mmol/L Carbon Dioxide (21-31) mmol/L BUN (6.0-23.0) mg/dL Creatinine (0.6-1.5) mg/dL Est Cr Clr Drug Dosing mL/min Estimated GFR (MDRD) ml/min Glucose (60-110) mg/dL POC Glucose 62 243 H 320 H (60-110) mg/dL Calcium (8.8-10.8) mg/dL 10/28/16 10/28/16 10/28/16 Range/Units 05:45 05:45 05:55 WBC 4.73 (4.0-11.0) K/uL RBC 3.41 L (4.30-5.90) M/uL Hgb 9.7 L (12.0-16.0) g/dL Hct 31.4 L (36.0-46.0) % MCV 92.1 (80.0-98.0) fL MCH 28.4 (27.0-32.0) pg MCHC 30.9 L (31.0-37.0) g/dL RDW Std Deviation 47.6 (28.0-62.0) fl RDW Coeff of Zak 14 (11.0-15.0) % Plt Count 231 (150-400) K/uL MPV 10.40 (7.40-12.00) fL Neut % (Auto) 30.9 L (48.0-80.0) % Lymph % (Auto) 59.8 H (16.0-40.0) % Tal[place]ferro % (Auto) 4.7 (0.0-15.0) % Eos % (Auto) 4.2 (0.0-7.0) % Baso % (Auto) 0.4 (0.0-1.5) % Neut # (Auto) 1.5 (1.4-5.7) K/uL Lymph # (Auto) 2.8 H (0.6-2.4) K/uL Tal[place]ferro # (Auto) 0.2 (0.0-0.8) K/uL Eos # (Auto) 0.2 (0.0-0.7) K/uL Baso # (Auto) 0.0 (0.0-0.1) K/uL Nucleated RBC % 0.0 /100WBC Nucleated RBCs # 0 K/uL Sodium 140 (136-146) mmol/L Potassium 3.6 (3.5-5.1) mmol/L Chloride 112 H (98-110) mmol/L Carbon Dioxide 21 (21-31) mmol/L BUN 14 (6.0-23.0) mg/dL Creatinine 0.6 (0.6-1.5) mg/dL Est Cr Clr Drug Dosing 101.16 mL/min Estimated GFR (MDRD) > 60.0 ml/min Glucose 49 L (60-110) mg/dL POC Glucose 51 L (60-110) mg/dL Calcium 8.0 L (8.8-10.8) mg/dL 10/28/16 10/28/16 10/28/16 Range/Units 06:12 07:49 11:26 WBC (4.0-11.0) K/uL RBC (4.30-5.90) M/uL Hgb (12.0-16.0) g/dL Hct (36.0-46.0) % MCV (80.0-98.0) fL MCH (27.0-32.0) pg MCHC (31.0-37.0) g/dL RDW Std Deviation (28.0-62.0) fl RDW Coeff of Zak (11.0-15.0) % Plt Count (150-400) K/uL MPV (7.40-12.00) fL Neut % (Auto) (48.0-80.0) % Lymph % (Auto) (16.0-40.0) % Tal[place]ferro % (Auto) (0.0-15.0) % Eos % (Auto) (0.0-7.0) % Baso % (Auto) (0.0-1.5) % Neut # (Auto) (1.4-5.7) K/uL Lymph # (Auto) (0.6-2.4) K/uL Taliaferro # (Auto) (0.0-0.8) K/uL Eos # (Auto) (0.0-0.7) K/uL Baso # (Auto) (0.0-0.1) K/uL Nucleated RBC % /100WBC Nucleated RBCs # K/uL Sodium (136-146) mmol/L Potassium (3.5-5.1) mmol/L Chloride (98-110) mmol/L Carbon Dioxide (21-31) mmol/L BUN (6.0-23.0) mg/dL Creatinine (0.6-1.5) mg/dL Est Cr Clr Drug Dosing mL/min Estimated GFR (MDRD) ml/min Glucose (60-110) mg/dL POC Glucose 65 230 H 148 H (60-110) mg/dL Calcium (8.8-10.8) mg/dL Med Orders - Current: Current Medications Albuterol (Ventolin Hfa) 0 gm INH Q4H PRN PRN Reason: Dyspnea Diphenhydramine HCl (Benadryl) 50 mg PO Q6H PRN PRN Reason: Itching Last Admin: 10/28/16 11:27 Dose: 50 mg Enoxaparin Sodium (Lovenox) 40 mg SUBCUT DAILY [facility] Last Admin: 10/28/16 08:45 Dose: 40 mg Sodium Chloride (Normal Saline) 1,000 mls @ 125 mls/hr IV ASDIRECTED [facility] Last Admin: 10/28/16 05:30 Dose: 125 mls/hr Sodium Chloride (Normal Saline) 1,000 mls @ 500 mls/hr IV 1700 PIPPA Last Admin: 10/27/16 16:53 Dose: 500 mls/hr Sodium Chloride (Normal Saline) 1,000 mls @ 500 mls/hr IV ONETIME [facility] Last Admin: 10/27/16 18:52 Dose: 500 mls/hr Insulin Aspart (Novolog) 0 unit SUBCUT TIDAC PIPPA PRN Reason: Protocol Last Admin: 10/28/16 11:40 Dose: Not Given Insulin Detemir (Levemir) 15 unit SUBCUT BID [facility] Last Admin: 10/28/16 08:46 Dose: 15 units Lorazepam (Ativan) 0.5 mg PO BID PRN PRN Reason: Anxiety Last Admin: 10/28/16 01:37 Dose: 0.5 mg Morphine Sulfate (Ms Contin) 30 mg PO Q8H PRN PRN Reason: Abdominal Pain Last Admin: 10/28/16 11:27 Dose: 30 mg Omeprazole (Omeprazole) 20 mg PO BIDAC PIPPA Last Admin: 10/28/16 06:55 Dose: 20 mg Ondansetron HCl (Zofran) 4 mg IVPUSH Q4H PRN PRN Reason: Nausea Last Admin: 10/28/16 11:27 Dose: 4 mg Discontinued Medications Sodium Chloride (Normal Saline) 2,000 mls @ 999 mls/hr IV .BOLUS [facility] Insulin Aspart (Novolog) 13 unit SUBCUT ONETIME ONE Stop: 10/27/16 21:26 Last Admin: 10/27/16 21:30 Dose: 13 units - Exam Quality Assessment: Denies: supplemental oxygen General: Reports: alert, oriented, cooperative HEENT: Reports: Pupils equal, Pupils reactive Neck: Reports: supple, trachea midline Lungs: Reports: Clear to auscultation, Normal respiratory effort Cardiovascular: Reports: Regular Rate, Regular Rhythm Abdomen: Reports: bowel sounds present, soft Extremities: Reports: no edema Skin: Reports: warm, dry, intact Neurological: Reports: no new focal deficit Psy/Mental Status: Reports: alert, normal affect, labile mood *Q Meaningful Use (DIS) - VTE *Q VTE Criteria *Q: - Stroke *Q Stroke Criteria *Q: - AMI *Q AMI Criteria *Q:
== END 2016-10-28 14:10 | disposition home or self-care (01) ==
LOC: MW.MS 14:22
PROVIDERS: ADMIT Internal Medicine; ATTEND Internal Medicine
DX: E83.52 Hypercalcemia (principal); E86.0 Dehydration; E87.2 Acidosis; R79.89 Other specified abnormal findings of blood chemistry; E10.65 Type 1 diabetes mellitus with hyperglycemia; R10.9 Unspecified abdominal pain; R11.2 Nausea with vomiting, unspecified; F11.20 Opioid dependence, uncomplicated; Z88.1 Allergy status to other antibiotic agents; Z88.6 Allergy status to analgesic agent; Z88.8 Allergy status to other drugs, medicaments and biological substances; Z79.4 Long term (current) use of insulin; Z79.899 Other long term (current) drug therapy; J30.9 Allergic rhinitis, unspecified; J45.909 Unspecified asthma, uncomplicated; Z86.19 Personal history of other infectious and parasitic diseases; F32.9 Major depressive disorder, single episode, unspecified; F41.9 Anxiety disorder, unspecified; Z87.891 Personal history of nicotine dependence; R30.0 Dysuria; G89.4 Chronic pain syndrome; R79.9 Abnormal finding of blood chemistry, unspecified
CPT/HCPCS: 36415; 80048; 80053; 80305; 81001; 82009; 82962; 85025; 96372; 96374; 96376; A9270; G0378; G0379; J1650; J1815; J2405; J7040

== ENCOUNTER 2016-11-25 23:36 | Emergency (ER) | payer MEDICAID, OTHER, SELFPAY ==
[2016-11-25] MEDS ORDERED: Sodium Chloride 0.9% 1,000 ML IV ONE (23:39)
--- NOTE | 2016-11-25 23:41 | EDM.PDOC ---
ED HPI GENERAL MEDICAL PROBLEM - General Stated Complaint: AMBULANCE Time Seen by Provider: 11/25/16 23:37 - History of Present Illness INITIAL COMMENTS - FREE TEXT/NARRATIVE: HISTORY AND PHYSICAL: History of present illness: 26-year-old female history of diabetes is well known to the emergency department she concern of vomiting and elevated blood sugar Review of systems: As per history of present illness and below otherwise all systems reviewed and negative. Past medical history: As per history of present illness and as reviewed below otherwise noncontributory. Surgical history: As per history of present illness and as reviewed below otherwise noncontributory. Social history: No reported history of drug or alcohol abuse. Family history: As per history of present illness and as reviewed below otherwise noncontributory. Physical exam: HEENT: Atraumatic, normocephalic, pupils reactive, negative for conjunctival pallor or scleral icterus, mucous membranes dry, throat clear, neck supple, nontender, trachea midline. Lungs: Clear to auscultation, breath sounds equal bilaterally, chest nontender. Heart: S1S2, regular, negative for clicks, rubs, or JVD. Abdomen: Soft, nondistended, nontender. Negative for masses or hepatosplenomegaly. Negative for costovertebral tenderness. Pelvis: Stable nontender. Genitourinary: Deferred. Rectal: Deferred. Extremities: Atraumatic, negative for cords or calf pain. Neurovascular unremarkable. Neuro: Awake, alert, oriented. Cranial nerves II through XII unremarkable. Cerebellum unremarkable. Motor and sensory unremarkable throughout. Exam nonfocal. Diagnostics: CBC CMP ABG PT/INR hCG chest x-ray EKG Therapeutics: IV O2 monitor normal saline 1 L bolus Impression: #1 uncontrolled diabetes #2 vomiting with dehydration Definitive disposition and diagnosis as appropriate pending reevaluation and review of above. - Related Data Allergies Allergy/AdvReac Type Severity Reaction Status Date / Time acetaminophen [From Tylenol] Allergy Liver Verified 10/08/16 03:57 Problems amoxicillin Allergy Hives Verified 10/08/16 03:57 amoxicillin trihydrate Allergy Hives Verified 10/08/16 03:57 [From Amoxil] ibuprofen Allergy Liver Verified 10/08/16 03:57 Problems ketorolac tromethamine Allergy Hives Verified 10/08/16 03:57 [From Toradol] metoclopramide HCl Allergy Airway Verified 10/08/16 03:57 [From Reglan] Tightness tramadol Allergy Hives Verified 10/08/16 03:57 Home Meds: Home Meds Insulin Detemir [Levemir] 15 unit SUBCUT BID 03/24/16 [History] LORazepam [Ativan] 0.5 mg PO BID PRN 03/24/16 [History] Ondansetron [Ondansetron ODT] 8 mg PO QID PRN 04/19/16 [History] Insulin Aspart [Novolog Flexpen] 16 - 20 unit SUBCUT TIDMEALS 05/15/16 [History] Omeprazole 20 mg PO DAILY 05/15/16 [History] Albuterol Sulfate [Proair Hfa] 1 puff INH Q4H PRN 06/12/16 [History] Promethazine HCl 25 mg PO Q6H PRN 08/24/16 [History] Morphine [MS Contin] 60 mg PO Q6H 10/07/16 [History] Budesonide/Formoterol [Symbicort 160-4.5 MCG] 1 puff INH BID 10/27/16 [History] DULoxetine HCl [Cymbalta] 30 mg PO DAILY 10/27/16 [History] Past Medical History - Past Health History Medical/Surgical History: Denies Medical/Surgical History HEENT History: Reports: Allergic Rhinitis Other HEENT History: dental abcess Cardiovascular History: Reports: None Respiratory History: Reports: Asthma Gastrointestinal History: Reports: GI Bleed, Hepatitis, PUD, Other (See Below) Other Gastrointestinal History: hx of C-diff, hx of Hepatitis B Genitourinary History: Reports: UTI, Recurrent Other Genitourinary History: current UTI [employer]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: Other (See Below) Other OB/BYN History: had miscarriage twice Musculoskeletal History: Reports: Back Pain, Chronic, Other (See Below) Neurological History: Reports: Migraines, Seizure 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, last on was 4 months ago Psychiatric History: Reports: Anxiety, Depression Endocrine/Metabolic History: Reports: Diabetes, Type I Hematologic History: Reports: Anemia Immunologic History: Reports: None Oncologic (Cancer) History: Reports: None Dermatologic History: Reports: Other (See Below) Other Dermatologic History: possible infection from port removal R upper chest - Infectious Disease History Infectious Disease History: Reports: None - Past Surgical History Head Surgeries/Procedures: Reports: None HEENT Surgical History: Reports: Tonsillectomy Cardiovascular Surgical History: Reports: None Respiratory Surgical History: Reports: None Other Respiratory Surgeries/Procedures: History of Asthma at 11 years old. GI Surgical History: Reports: Appendectomy, Cholecystectomy, ERCP Female Surgical History: Reports: None Endocrine Surgical History: Reports: None Neurological Surgical History: Reports: None Musculoskeletal Surgical History: Reports: None Oncologic Surgical History: Reports: None Dermatological Surgical History: Reports: None - History Comment History Comment: She has had over [address] scans in the last 4 years. Social & Family History - Family History Family Medical History: Noncontributory HEENT: Reports: Impaired Vision Cardiac: Reports: Heart Failure Respiratory: Reports: Asthma GI: Reports: None : Reports: Renal Disease/Insufficiency OBGYN: Reports: Musculoskeletal: Reports: Back pain, Chronic Neurological: Reports: Seizure Psychiatric: Reports: None Endocrine/Metabolic: Reports: Diabetes, Type I Hematologic: Reports: None Immunologic: Reports: None Dermatologic: Reports: None Oncologic: Reports: Breast, Cervix - Tobacco Use Smoking Status *Q: Never Smoker Years of Tobacco use: 4 Packs/Tins Daily: 0.5 Used Tobacco, but Quit: Yes Month Tobacco Last Used: 5 months Second Hand Smoke Exposure: No - Caffeine Use Caffeine Use: Reports: None - Alcohol Use Days Per Week of Alcohol Use: 0 - Recreational Drug Use Recreational Drug Use: No Drug Use in Last 12 Months: No Recreational Drug Type: Reports: Other (see below) Other Recreational Drug Type: patient verbalized she took oxymorphone prior to admission Recreational Drug Use Frequency: Patient Refuses To Answer - Living Situation & Occupation Living situation: Reports: with Significant Other, with Family, Other Occupation: Unemployed ED ROS GENERAL - Review of Systems Review Of Systems: ROS reveals no pertinent complaints other than HPI. ED EXAM, GENERAL - Physical Exam Exam: See Below (Dictation) Course - Vital Signs Last Recorded V/S: Last Vital Signs Temp 36.8 C 11/25/16 23:40 Pulse 107 H 11/25/16 23:40 Resp 18 11/25/16 23:40 BP 112/73 11/25/16 23:40 Pulse Ox 97 11/25/16 23:40 - Orders/Labs/Meds Orders: Active Orders 24 hr Category Date Time Status Cardiac Monitoring [RC] . DIRECTED Care 11/25/16 23:38 Active EKG Documentation Completion [RC] STAT Care 11/25/16 23:38 Active Pulse Oximetry [RC] ASDIRECTED Care 11/25/16 23:38 Active Chest 1V Frontal [CR] Stat Exams 11/25/16 23:39 Ordered Labs: Laboratory Tests 11/25/16 11/25/16 11/26/16 Range/Units 00:09 00:09 00:35 WBC 10.89 (4.0-11.0) K/uL RBC 5.41 (4.30-5.90) M/uL Hgb 15.5 (12.0-16.0) g/dL Hct 48.1 H (36.0-46.0) % MCV 88.9 (80.0-98.0) fL MCH 28.7 (27.0-32.0) pg MCHC 32.2 (31.0-37.0) g/dL RDW Std Deviation 50.2 (28.0-62.0) fl RDW Coeff of Zak 16 H (11.0-15.0) % Plt Count 360 (150-400) K/uL MPV 10.10 (7.40-12.00) fL Neut % (Auto) 81.0 H (48.0-80.0) % Lymph % (Auto) 15.7 L (16.0-40.0) % Ramsey % (Auto) 2.8 (0.0-15.0) % Eos % (Auto) 0.3 (0.0-7.0) % Baso % (Auto) 0.2 (0.0-1.5) % Neut # (Auto) 8.8 H (1.4-5.7) K/uL Lymph # (Auto) 1.7 (0.6-2.4) K/uL Ramsey # (Auto) 0.3 (0.0-0.8) K/uL Eos # (Auto) 0.0 (0.0-0.7) K/uL Baso # (Auto) 0.0 (0.0-0.1) K/uL Nucleated RBC % 0.0 /100WBC Nucleated RBCs # 0 K/uL INR 1.01 (0.86-1.11) ABG pH 7.373 (7.35-7.45) ABG pCO2 21 L (35-45) mmHG ABG pO2 97 (75-100) mmHG ABG HCO3 12 L (22-26) mEq/L ABG Total CO2 10.8 ABG Base Excess -11.7 L (-2.0-2.0) Meds: Medications Discontinued Medications Generic Name Dose Route Start Last Admin Trade Name Marge PRN Reason Stop Dose Admin Sodium Chloride 1,000 mls @ 999 mls/hr 11/25/16 23:39 11/26/16 00:31 Normal Saline IV 11/26/16 00:39 999 mls/hr STAT ONE Administration Ondansetron HCl 4 mg 11/26/16 00:26 11/26/16 00:32 Zofran IVPUSH 11/26/16 00:27 4 mg ONETIME ONE Administration Departure - Departure Time of Disposition: 01:00 Disposition: Home, Self-Care 01 Condition: good Clinical Impression: Dehydration Diabetes Qualifiers: Diabetes mellitus type: type 1 Diabetes mellitus complication status: without complication Qualified Code(s): E10.9 - Type 1 diabetes mellitus without complications - Discharge Information Additional Instructions: The following information is given to patients seen in the emergency department who are being discharged to home. This information is to outline your options for follow-up care. We provide all patients seen in our emergency department with a follow-up referral. The need for follow-up, as well as the timing and circumstances, are variable depending upon the specifics of your emergency department visit. If you don't have a primary care physician on staff, we will provide you with a referral. We always advise you to contact your personal physician following an emergency department visit to inform them of the circumstance of the visit and for follow-up with them and/or the need for any referrals to a consulting specialist. The emergency department will also refer you to a specialist when appropriate. This referral assures that you have the opportunity for followup care with a specialist. All of these measure are taken in an effort to provide you with optimal care, which includes your followup. Under all circumstances we always encourage you to contact your private physician who remains a resource for coordinating your care. When calling for followup care, please make the office aware that this follow-up is from your recent emergency room visit. If for any reason you are refused follow-up, please contact the [facility] emergency department at and asked to speak to the emergency department charge nurse. Accu-Chek 4 times a day push fluids continue routine care continue current medications follow primary medical doctor one to 2 days return as needed as discussed. - My Orders Last 24 Hours: My Active Orders 11/25/16 23:38 Cardiac Monitoring [RC] . DIRECTED EKG Documentation Completion [RC] STAT Pulse Oximetry [RC] ASDIRECTED 11/25/16 23:39 Chest 1V Frontal [CR] Stat - Assessment/Plan Last 24 Hours: My Active Orders 11/25/16 23:38 Cardiac Monitoring [RC] . DIRECTED EKG Documentation Completion [RC] STAT Pulse Oximetry [RC] ASDIRECTED 11/25/16 23:39 Chest 1V Frontal [CR] Stat
[2016-11-26] MEDS ORDERED: Ondansetron 4 MG/2 ML SDV IVPUSH ONE (00:26)
[2016-11-26 02:08] VITALS: BP 117/79
== END 2016-11-26 01:35 | disposition home or self-care (01) ==
LOC: MW.ED 23:36
DX: E86.0 Dehydration (principal); E10.9 Type 1 diabetes mellitus without complications; J45.909 Unspecified asthma, uncomplicated; Z90.49 Acquired absence of other specified parts of digestive tract; Z98.890 Other specified postprocedural states; Z88.1 Allergy status to other antibiotic agents; Z88.8 Allergy status to other drugs, medicaments and biological substances; Z79.4 Long term (current) use of insulin; Z79.899 Other long term (current) drug therapy
CPT/HCPCS: 36600; 82803; 85025; 85610; 93005; 96361; 96374; 99285; J2405; J7040

== ENCOUNTER 2016-11-26 06:28 | Emergency (ER) | payer MEDICAID, SELFPAY ==
--- NOTE | 2016-11-26 09:41 | EDM.PDOC ---
ED HPI GENERAL MEDICAL PROBLEM - General Chief Complaint: General Stated Complaint: SEIZURE Time Seen by Provider: 11/26/16 09:36 - History of Present Illness INITIAL COMMENTS - FREE TEXT/NARRATIVE: HISTORY AND PHYSICAL: History of present illness: Patient is 26-year-old female history of diabetes presents with concern of hypoglycemia patient was brought by paramedics and had a blood sugar of 47 patient was seen yesterday with vomiting and hyperglycemia. Review of systems: As per history of present illness and below otherwise all systems reviewed and negative. Past medical history: As per history of present illness and as reviewed below otherwise noncontributory. Surgical history: As per history of present illness and as reviewed below otherwise noncontributory. Social history: No reported history of drug or alcohol abuse. Family history: As per history of present illness and as reviewed below otherwise noncontributory. Physical exam: HEENT: Atraumatic, normocephalic, pupils reactive, negative for conjunctival pallor or scleral icterus, mucous membranes moist, throat clear, neck supple, nontender, trachea midline. Lungs: Clear to auscultation, breath sounds equal bilaterally, chest nontender. Heart: S1S2, regular, negative for clicks, rubs, or JVD. Abdomen: Soft, nondistended, nontender. Negative for masses or hepatosplenomegaly. Negative for costovertebral tenderness. Pelvis: Stable nontender. Genitourinary: Deferred. Rectal: Deferred. Extremities: Atraumatic, negative for cords or calf pain. Neurovascular unremarkable. Neuro: Awake, alert, oriented. Cranial nerves II through XII unremarkable. Cerebellum unremarkable. Motor and sensory unremarkable throughout. Exam nonfocal. Diagnostics: CBC CMP Therapeutics: By mouth juice Impression: #1 Hypoglycemic episode #2 diabetes #3 history of vomiting Definitive disposition and diagnosis as appropriate pending reevaluation and review of above. Abdominal Pain Score (Numeric/FACES): 8 - Related Data Allergies Allergy/AdvReac Type Severity Reaction Status Date / Time acetaminophen [From Tylenol] Allergy Liver Verified 10/08/16 03:57 Problems amoxicillin Allergy Hives Verified 10/08/16 03:57 amoxicillin trihydrate Allergy Hives Verified 10/08/16 03:57 [From Amoxil] ibuprofen Allergy Liver Verified 10/08/16 03:57 Problems ketorolac tromethamine Allergy Hives Verified 10/08/16 03:57 [From Toradol] metoclopramide HCl Allergy Airway Verified 10/08/16 03:57 [From Reglan] Tightness tramadol Allergy Hives Verified 10/08/16 03:57 Home Meds: Home Meds Insulin Detemir [Levemir] 15 unit SUBCUT BID 03/24/16 [History] LORazepam [Ativan] 0.5 mg PO BID PRN 03/24/16 [History] Ondansetron [Ondansetron ODT] 8 mg PO QID PRN 04/19/16 [History] Insulin Aspart [Novolog Flexpen] 16 - 20 unit SUBCUT TIDMEALS 05/15/16 [History] Omeprazole 20 mg PO DAILY 05/15/16 [History] Albuterol Sulfate [Proair Hfa] 1 puff INH Q4H PRN 06/12/16 [History] Promethazine HCl 25 mg PO Q6H PRN 08/24/16 [History] Morphine [MS Contin] 60 mg PO Q6H 10/07/16 [History] Budesonide/Formoterol [Symbicort 160-4.5 MCG] 1 puff INH BID 10/27/16 [History] DULoxetine HCl [Cymbalta] 30 mg PO DAILY 10/27/16 [History] Past Medical History - Past Health History Medical/Surgical History: Denies Medical/Surgical History HEENT History: Reports: Allergic Rhinitis Other HEENT History: dental abcess Cardiovascular History: Reports: None Respiratory History: Reports: Asthma Gastrointestinal History: Reports: GI Bleed, Hepatitis, PUD, Other (See Below) Other Gastrointestinal History: hx of C-diff, hx of Hepatitis B Genitourinary History: Reports: UTI, Recurrent Other Genitourinary History: current UTI 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) Other OB/BYN History: had miscarriage twice Musculoskeletal History: Reports: Back Pain, Chronic, Other (See Below) Neurological History: Reports: Migraines, Seizure 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, last on was 4 months ago Psychiatric History: Reports: Anxiety, Depression Endocrine/Metabolic History: Reports: Diabetes, Type I Hematologic History: Reports: Anemia Immunologic History: Reports: None Oncologic (Cancer) History: Reports: None Dermatologic History: Reports: Other (See Below) Other Dermatologic History: possible infection from port removal R upper chest - Infectious Disease History Infectious Disease History: Reports: None - Past Surgical History Head Surgeries/Procedures: Reports: None HEENT Surgical History: Reports: Tonsillectomy Cardiovascular Surgical History: Reports: None Respiratory Surgical History: Reports: None Other Respiratory Surgeries/Procedures: History of Asthma at 11 years old. GI Surgical History: Reports: Appendectomy, Cholecystectomy, ERCP Female Surgical History: Reports: None Endocrine Surgical History: Reports: None Neurological Surgical History: Reports: None Musculoskeletal Surgical History: Reports: None Oncologic Surgical History: Reports: None Dermatological Surgical History: Reports: None - History Comment History Comment: She has had over [address] scans in the last 4 years. Social & Family History - Family History Family Medical History: Noncontributory HEENT: Reports: Impaired Vision Cardiac: Reports: Heart Failure Respiratory: Reports: Asthma GI: Reports: None : Reports: Renal Disease/Insufficiency OBGYN: Reports: Musculoskeletal: Reports: Back pain, Chronic Neurological: Reports: Seizure Psychiatric: Reports: None Endocrine/Metabolic: Reports: Diabetes, Type I Hematologic: Reports: None Immunologic: Reports: None Dermatologic: Reports: None Oncologic: Reports: Breast, Cervix - Tobacco Use Smoking Status *Q: Current Every Day Smoker Years of Tobacco use: 12 Packs/Tins Daily: 1 Used Tobacco, but Quit: Yes Month Tobacco Last Used: 5 months Second Hand Smoke Exposure: No - Caffeine Use Caffeine Use: Reports: None - Alcohol Use Days Per Week of Alcohol Use: 0 - Recreational Drug Use Recreational Drug Use: Yes Drug Use in Last 12 Months: Yes Recreational Drug Type: Reports: Other (see below) Other Recreational Drug Type: patient verbalized she took oxymorphone prior to admission Recreational Drug Use Frequency: Patient Refuses To Answer - Living Situation & Occupation Living situation: Reports: with Significant Other, with Family, Other Occupation: Unemployed ED ROS GENERAL - Review of Systems Review Of Systems: ROS reveals no pertinent complaints other than HPI. ED EXAM, GENERAL - Physical Exam Exam: See Below (See dictation) Course - Vital Signs Last Recorded V/S: Last Vital Signs Temp 37.4 C 11/26/16 06:40 Pulse 119 H 11/26/16 06:40 Resp 16 11/26/16 06:40 BP 121/89 11/26/16 06:40 Pulse Ox 97 11/26/16 06:40 - Orders/Labs/Meds Orders: Active Orders 24 hr Category Date Time Status Blood Glucose Check, Bedside [RC] ONETIME Care 11/26/16 06:46 Active Labs: Laboratory Tests 11/26/16 11/26/16 11/26/16 Range/Units 07:03 08:28 09:38 POC Glucose 48 L 60 66 (60-110) mg/dL 11/26/16 Range/Units 10:28 POC Glucose 157 H (60-110) mg/dL Departure - Departure Time of Disposition: 10:57 Disposition: Home, Self-Care 01 Condition: good Clinical Impression: Hypoglycemia associated with diabetes, Dehydration - Discharge Information Referrals: PCP,None [Primary Care Provider] - Forms: ED Department Discharge Additional Instructions: The following information is given to patients seen in the emergency department who are being discharged to home. This information is to outline your options for follow-up care. We provide all patients seen in our emergency department with a follow-up referral. The need for follow-up, as well as the timing and circumstances, are variable depending upon the specifics of your emergency department visit. If you don't have a primary care physician on staff, we will provide you with a referral. We always advise you to contact your personal physician following an emergency department visit to inform them of the circumstance of the visit and for follow-up with them and/or the need for any referrals to a consulting specialist. The emergency department will also refer you to a specialist when appropriate. This referral assures that you have the opportunity for followup care with a specialist. All of these measure are taken in an effort to provide you with optimal care, which includes your followup. Under all circumstances we always encourage you to contact your private physician who remains a resource for coordinating your care. When calling for followup care, please make the office aware that this follow-up is from your recent emergency room visit. If for any reason you are refused follow-up, please contact the [facility] emergency department at and asked to speak to the emergency department charge nurse. Continue routine diabetic care Accu-Chek 4 times a day follow up primary medical doctor one to 2 days eat small regular meals as discussed return as needed as discussed - My Orders Last 24 Hours: My Active Orders 11/26/16 06:46 Blood Glucose Check, Bedside [RC] ONETIME - Assessment/Plan Last 24 Hours: My Active Orders 11/26/16 06:46 Blood Glucose Check, Bedside [RC] ONETIME
[2016-11-26 11:14] VITALS: BP 123/83
== END 2016-11-26 11:12 | disposition home or self-care (01) ==
LOC: MW.ED 06:28
DX: E10.649 Type 1 diabetes mellitus with hypoglycemia without coma (principal); E86.0 Dehydration; J45.909 Unspecified asthma, uncomplicated; F17.210 Nicotine dependence, cigarettes, uncomplicated; Z79.4 Long term (current) use of insulin; Z79.899 Other long term (current) drug therapy; Z88.1 Allergy status to other antibiotic agents; Z88.8 Allergy status to other drugs, medicaments and biological substances; Z90.49 Acquired absence of other specified parts of digestive tract; Z98.890 Other specified postprocedural states
CPT/HCPCS: 82962; 99283; 99285

== ENCOUNTER 2016-11-26 15:54 | Observation (INO) | payer MEDICAID, SELFPAY ==
--- NOTE | 2016-11-26 16:11 | EDM.PDOC ---
ED HPI GENERAL MEDICAL PROBLEM - General Chief Complaint: General Stated Complaint: VOMITING,SEIZURES Time Seen by Provider: 11/26/16 16:01 - History of Present Illness INITIAL COMMENTS - FREE TEXT/NARRATIVE: HISTORY AND PHYSICAL: History of present illness: Patient is a 26-year-old female who presents for the third time 12 hours with similar complaints she has chronic intermittent abdominal pain and upon arrival here requesting something for her opiate withdrawal she's had associated nausea and vomiting her initial visit was seen by myself with hyperglycemia without diabetic ketoacidosis her return visit was for hypoglycemia on arrival here her sugar is greater than 500 and there is no significant interval change in her physical exam her presentation from the prior 2 visits Review of systems: As per history of present illness and below otherwise all systems reviewed and negative. Past medical history: As per history of present illness and as reviewed below otherwise noncontributory. Surgical history: As per history of present illness and as reviewed below otherwise noncontributory. Social history: No reported history of drug or alcohol abuse. Family history: As per history of present illness and as reviewed below otherwise noncontributory. Physical exam: HEENT: Atraumatic, normocephalic, pupils reactive, negative for conjunctival pallor or scleral icterus, mucous membranes dry, throat clear, neck supple, nontender, trachea midline. Lungs: Clear to auscultation, breath sounds equal bilaterally, chest nontender. Heart: S1S2, regular, negative for clicks, rubs, or JVD. Abdomen: Soft, nondistended, nontender. Negative for masses or hepatosplenomegaly. Negative for costovertebral tenderness. Pelvis: Stable nontender. Genitourinary: Deferred. Rectal: Deferred. Extremities: Atraumatic, negative for cords or calf pain. Neurovascular unremarkable. Neuro: Awake, alert, oriented. Cranial nerves II through XII unremarkable. Cerebellum unremarkable. Motor and sensory unremarkable throughout. Exam nonfocal. Diagnostics: CBC CMP ABG Therapeutics: Normal saline 1 L bolus Impression: #1 hyperglycemia with insulin-dependent diabetes #2 substance abuse #3 dehydration Definitive disposition and diagnosis as appropriate pending reevaluation and review of above. - Related Data Allergies Allergy/AdvReac Type Severity Reaction Status Date / Time acetaminophen [From Tylenol] Allergy Liver Verified 11/26/16 16:04 Problems amoxicillin Allergy Hives Verified 11/26/16 16:04 amoxicillin trihydrate Allergy Hives Verified 11/26/16 16:04 [From Amoxil] ibuprofen Allergy Liver Verified 11/26/16 16:04 Problems ketorolac tromethamine Allergy Hives Verified 11/26/16 16:04 [From Toradol] metoclopramide HCl Allergy Airway Verified 11/26/16 16:04 [From Reglan] Tightness tramadol Allergy Hives Verified 11/26/16 16:04 Home Meds: Home Meds Insulin Detemir [Levemir] 15 unit SUBCUT BID 03/24/16 [History] LORazepam [Ativan] 0.5 mg PO BID PRN 03/24/16 [History] Ondansetron [Ondansetron ODT] 8 mg PO QID PRN 04/19/16 [History] Insulin Aspart [Novolog Flexpen] 16 - 20 unit SUBCUT TIDMEALS 05/15/16 [History] Omeprazole 20 mg PO DAILY 05/15/16 [History] Albuterol Sulfate [Proair Hfa] 1 puff INH Q4H PRN 06/12/16 [History] Promethazine HCl 25 mg PO Q6H PRN 08/24/16 [History] Morphine [MS Contin] 60 mg PO Q6H 10/07/16 [History] Budesonide/Formoterol [Symbicort 160-4.5 MCG] 1 puff INH BID 10/27/16 [History] DULoxetine HCl [Cymbalta] 30 mg PO DAILY 10/27/16 [History] Past Medical History - Past Health History Medical/Surgical History: Denies Medical/Surgical History HEENT History: Reports: Allergic Rhinitis Other HEENT History: dental abcess Cardiovascular History: Reports: None Respiratory History: Reports: Asthma Gastrointestinal History: Reports: GI Bleed, Hepatitis, PUD, Other (See Below) Other Gastrointestinal History: hx of C-diff, hx of Hepatitis B Genitourinary History: Reports: UTI, Recurrent Other Genitourinary History: current 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) Other OB/BYN History: had miscarriage twice Musculoskeletal History: Reports: Back Pain, Chronic, Other (See Below) Neurological History: Reports: Migraines, Seizure 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, last on was 4 months ago Psychiatric History: Reports: Anxiety, Depression Endocrine/Metabolic History: Reports: Diabetes, Type I Hematologic History: Reports: Anemia Immunologic History: Reports: None Oncologic (Cancer) History: Reports: None Dermatologic History: Reports: Other (See Below) Other Dermatologic History: possible infection from port removal R upper chest - Infectious Disease History Infectious Disease History: Reports: None - Past Surgical History Head Surgeries/Procedures: Reports: None HEENT Surgical History: Reports: Tonsillectomy Cardiovascular Surgical History: Reports: None Respiratory Surgical History: Reports: None Other Respiratory Surgeries/Procedures: History of Asthma at 11 years old. GI Surgical History: Reports: Appendectomy, Cholecystectomy, ERCP Female Surgical History: Reports: None Endocrine Surgical History: Reports: None Neurological Surgical History: Reports: None Musculoskeletal Surgical History: Reports: None Oncologic Surgical History: Reports: None Dermatological Surgical History: Reports: None - History Comment History Comment: She has had over [address] scans in the last 4 years. Social & Family History - Family History Family Medical History: Noncontributory HEENT: Reports: Impaired Vision Cardiac: Reports: Heart Failure Respiratory: Reports: Asthma GI: Reports: None : Reports: Renal Disease/Insufficiency OBGYN: Reports: Musculoskeletal: Reports: Back pain, Chronic Neurological: Reports: Seizure Psychiatric: Reports: None Endocrine/Metabolic: Reports: Diabetes, Type I Hematologic: Reports: None Immunologic: Reports: None Dermatologic: Reports: None Oncologic: Reports: Breast, Cervix - Tobacco Use Smoking Status *Q: Current Every Day Smoker Years of Tobacco use: 12 Packs/Tins Daily: 1 Used Tobacco, but Quit: Yes Month Tobacco Last Used: 5 months Second Hand Smoke Exposure: No - Caffeine Use Caffeine Use: Reports: None - Alcohol Use Days Per Week of Alcohol Use: 0 - Recreational Drug Use Recreational Drug Use: Yes Drug Use in Last 12 Months: Yes Recreational Drug Type: Reports: Other (see below) Other Recreational Drug Type: patient verbalized she took oxymorphone prior to admission Recreational Drug Use Frequency: Patient Refuses To Answer - Living Situation & Occupation Living situation: Reports: with Significant Other, with Family, Other Occupation: Unemployed ED ROS GENERAL - Review of Systems Review Of Systems: ROS reveals no pertinent complaints other than HPI. ED EXAM, GENERAL - Physical Exam Exam: See Below (See dictation) Course - Vital Signs Last Recorded V/S: Last Vital Signs Temp 36.8 C 11/26/16 16:04 Pulse 123 H 11/26/16 16:04 Resp 16 11/26/16 16:04 BP 113/66 11/26/16 16:04 Pulse Ox 94 L 11/26/16 16:04 - Orders/Labs/Meds Orders: Active Orders 24 hr Category Date Time Status Sodium Chloride 0.9% [Normal Saline] 1,000 ml Med 11/26/16 17:28 Active IV .Bolus Medication Orders Sodium Chloride (Normal Saline) 1,000 mls @ 999 mls/hr IV .Bolus ONE Stop: 11/26/16 18:28 Labs: Laboratory Tests 11/26/16 11/26/16 11/26/16 Range/Units 16:06 16:25 16:36 WBC 11.51 H (4.0-11.0) K/uL RBC 4.79 (4.30-5.90) M/uL Hgb 13.7 (12.0-16.0) g/dL Hct 42.8 (36.0-46.0) % MCV 89.4 (80.0-98.0) fL MCH 28.6 (27.0-32.0) pg MCHC 32.0 (31.0-37.0) g/dL RDW Std Deviation 51.3 (28.0-62.0) fl RDW Coeff of Zak 16 H (11.0-15.0) % Plt Count 436 H (150-400) K/uL MPV 10.30 (7.40-12.00) fL Neut % (Auto) 81.0 H (48.0-80.0) % Lymph % (Auto) 13.0 L (16.0-40.0) % Ada % (Auto) 5.7 (0.0-15.0) % Eos % (Auto) 0.0 (0.0-7.0) % Baso % (Auto) 0.3 (0.0-1.5) % Neut # (Auto) 9.3 H (1.4-5.7) K/uL Lymph # (Auto) 1.5 (0.6-2.4) K/uL Ada # (Auto) 0.7 (0.0-0.8) K/uL Eos # (Auto) 0.0 (0.0-0.7) K/uL Baso # (Auto) 0.0 (0.0-0.1) K/uL Nucleated RBC % 0.0 /100WBC Nucleated RBCs # 0 K/uL ABG pH 7.504 H (7.35-7.45) ABG pCO2 30 L (35-45) mmHG ABG pO2 87 (75-100) mmHG ABG HCO3 24 (22-26) mEq/L ABG Total CO2 20.7 ABG Base Excess 0.8 (-2.0-2.0) Sodium (136-146) mmol/L Potassium (3.5-5.1) mmol/L Chloride (98-110) mmol/L Carbon Dioxide (21-31) mmol/L BUN (6.0-23.0) mg/dL Creatinine (0.6-1.5) mg/dL Est Cr Clr Drug Dosing mL/min Estimated GFR (MDRD) ml/min Glucose (60-110) mg/dL POC Glucose > 500 H (60-110) mg/dL Calcium (8.8-10.8) mg/dL Total Bilirubin (0.1-1.5) mg/dL AST (5-40) IU/L ALT (8-54) IU/L Alkaline Phosphatase (40-150) Total Protein (6.0-8.0) g/dL Albumin (3.5-5.0) g/dL Globulin (2.0-3.5) g/dL Albumin/Globulin Ratio (1.3-2.8) // Range/Units 16:36 WBC (4.0-11.0) K/uL RBC (4.30-5.90) M/uL Hgb (12.0-16.0) g/dL Hct (36.0-46.0) % MCV (80.0-98.0) fL MCH (27.0-32.0) pg MCHC (31.0-37.0) g/dL RDW Std Deviation (28.0-62.0) fl RDW Coeff of Zak (11.0-15.0) % Plt Count (150-400) K/uL MPV (7.40-12.00) fL Neut % (Auto) (48.0-80.0) % Lymph % (Auto) (16.0-40.0) % Ada % (Auto) (0.0-15.0) % Eos % (Auto) (0.0-7.0) % Baso % (Auto) (0.0-1.5) % Neut # (Auto) (1.4-5.7) K/uL Lymph # (Auto) (0.6-2.4) K/uL Ada # (Auto) (0.0-0.8) K/uL Eos # (Auto) (0.0-0.7) K/uL Baso # (Auto) (0.0-0.1) K/uL Nucleated RBC % /100WBC Nucleated RBCs # K/uL ABG pH (7.35-7.45) ABG pCO2 (35-45) mmHG ABG pO2 (75-100) mmHG ABG HCO3 (22-26) mEq/L ABG Total CO2 ABG Base Excess (-2.0-2.0) Sodium 134 L (136-146) mmol/L Potassium 4.2 (3.5-5.1) mmol/L Chloride 88 L (98-110) mmol/L Carbon Dioxide 18 L (21-31) mmol/L BUN 18 (6.0-23.0) mg/dL Creatinine 1.4 (0.6-1.5) mg/dL Est Cr Clr Drug Dosing 43.36 mL/min Estimated GFR (MDRD) 45.1 ml/min Glucose 771 H* (60-110) mg/dL POC Glucose (60-110) mg/dL Calcium 9.8 (8.8-10.8) mg/dL Total Bilirubin 1.1 (0.1-1.5) mg/dL AST 33 (5-40) IU/L ALT 48 (8-54) IU/L Alkaline Phosphatase 134 (40-150) Total Protein 7.2 (6.0-8.0) g/dL Albumin 4.5 (3.5-5.0) g/dL Globulin 2.7 (2.0-3.5) g/dL Albumin/Globulin Ratio 1.7 (1.3-2.8) Meds: Medications Generic Name Dose Route Start Last Admin Trade Name Freq PRN Reason Stop Dose Admin Sodium Chloride 1,000 mls @ 999 mls/hr 11/26/16 17:28 Normal Saline IV 11/26/16 18:28 .Bolus ONE Discontinued Medications Generic Name Dose Route Start Last Admin Trade Name Marge PRN Reason Stop Dose Admin Sodium Chloride 1,000 mls @ 999 mls/hr 11/26/16 16:13 11/26/16 16:48 Normal Saline IV 11/26/16 17:13 750 mls/hr .Bolus ONE Infusion Insulin Human Regular 20 unit 11/26/16 17:28 11/26/16 17:39 Novolin R IVPUSH 11/26/16 17:29 20 units ONETIME ONE Administration Protocol Ondansetron HCl 4 mg 11/26/16 16:13 11/26/16 16:38 Zofran IVPUSH 11/26/16 16:14 4 mg ONETIME ONE Administration Departure - Departure Time of Disposition: 17:47 Disposition: Refer to Observation Condition: good Clinical Impression: Hyperglycemia due to type 1 diabetes mellitus, Medical non-compliance, Substance abuse - Discharge Information Referrals: Maynor Black MD [Primary Care Provider] - Forms: ED Department Discharge - My Orders Last 24 Hours: My Active Orders 11/26/16 17:28 Sodium Chloride 0.9% [Normal Saline] 1,000 ml IV .Bolus - Assessment/Plan Last 24 Hours: My Active Orders 11/26/16 17:28 Sodium Chloride 0.9% [Normal Saline] 1,000 ml IV .Bolus
[2016-11-26] MEDS ORDERED: Ondansetron 4 MG/2 ML SDV IVPUSH ONE (16:13)
[2016-11-26] MEDS ORDERED: Sodium Chloride 0.9% 1,000 ML IV ONE ×2 (16:13→17:28)
[2016-11-26] MEDS ORDERED: Insulin Regular, Human 100 Units/ML 10 ML Vial IVPUSH ONE (17:28)
[2016-11-26] MEDS ORDERED: Insulin Aspart 100 Units/ML 3 ML Pen SUBCUT STA (21:04)
[2016-11-26] MEDS: Sodium Chloride 0.9% 1,000 ML IV SCH (21:09)
[2016-11-26] MEDS: oxyCODONE 5 MG Tab PO PRN (21:09)
[2016-11-26] MEDS: Insulin Detemir 100 Units/ML 3 ML Pen SUBCUT SCH (21:19)
[2016-11-27] MEDS: oxyCODONE 5 MG Tab PO PRN ×6 (01:29→22:07)
[2016-11-27] MEDS: Sodium Chloride 0.9% 1,000 ML IV SCH ×2 (05:16→17:30)
[2016-11-27] MEDS: Ondansetron 4 MG Tab.DIS PO PRN ×3 (05:25→16:21)
[2016-11-27] MEDS: Insulin Aspart 100 Units/ML 3 ML Pen SUBCUT SCH ×3 (06:41→16:44)
[2016-11-27 06:51] LABS: CHLORIDE,CL 110 mmol/L (98-110); SODIUM,NA 145 mmol/L (136-146)
[2016-11-27] MEDS ORDERED: Sodium Chloride 0.9% with KCl 500 ML IV SCH (09:00)
[2016-11-27] MEDS: Insulin Detemir 100 Units/ML 3 ML Pen SUBCUT SCH ×2 (09:14→21:13)
[2016-11-27] MEDS: Omeprazole 20 MG Cap.CR PO SCH (09:14)
[2016-11-27] MEDS: DULoxetine 30 MG Cap PO SCH (09:14)
[2016-11-27] MEDS ORDERED: Potassium Chloride 40 MEQ in Sodium Chloride 0.9% 500 ML IV SCH (09:15)
--- NOTE | 2016-11-27 10:37 | PCM.HP ---
H&P History of Present Illness - General Date of Service: 11/27/16 Source of Information: Patient, Family History Limitations: Reports: No Limitations - History of Present Illness Initial Comments - Free Text/Narative: The patient is a 26-year-old lady who is known to me from multiple visits and hospital admissions. The patient presented to the emergency department for the third time in 24-hour period with severe hyperglycemia. The patient was also noted to be severely dehydrated and she was fluid resuscitated in the emergency department. The patient was started on her insulin and subsequently admitted for observation for further workup if necessary. The patient reports that she had issues with vomiting over the past several days and apparently had diarrhea as well. She does studies were taken. The patient has her usual abdominal pain and at home she had been taking MS Contin 60 mg every 6 hours as needed for her pain issues. The patient had less followed up with her primary care physician one month ago. The patient initially had an episode of hypoglycemia in the emergency department and on the third and final visit prior to admission her blood sugar was in excess of 700. There's no evidence of ketoacidosis. Patient also had a blood gas completed which showed a pH of 7.5 with a PCO2 of 30. Patient's calcium was 9.8 mg/dL. She was treated with IV fluids in the emergency department as well as normal saline. Is interesting to note that the patient while being treated for nausea and vomiting have been noted by nursing to induce vomiting herself. The patient's father was also in the room at the time of history and physical and the patient gave her permission to discuss her case with him in the room. The patient is also been complaining of severe pain to her abdomen and has approximately 16 CT scans of her abdomen in the past. Patient has denied any fever or chills no specific signs of infection. Onset of Symptoms: Reports: Gradual Duration of Symptoms: Reports: Day(s):, Getting Worse Location: Reports: Abdomen Quality: Reports: Ache, Stabbing, Throbbing Severity: Severe Improves with: Reports: Medication Worsens with: Reports: None Associated Symptoms: Reports: Loss of Appetite, Nausea/Vomiting Abdominal Pain Score (Numeric/FACES): 5 - Related Data Allergies/Adverse Reactions: Allergies Allergy/AdvReac Type Severity Reaction Status Date / Time acetaminophen [From Tylenol] Allergy Liver Verified 11/26/16 16:04 Problems amoxicillin Allergy Hives Verified 11/26/16 16:04 amoxicillin trihydrate Allergy Hives Verified 11/26/16 16:04 [From Amoxil] ibuprofen Allergy Liver Verified 11/26/16 16:04 Problems ketorolac tromethamine Allergy Hives Verified 11/26/16 16:04 [From Toradol] metoclopramide HCl Allergy Airway Verified 11/26/16 16:04 [From Reglan] Tightness tramadol Allergy Hives Verified 11/26/16 16:04 Home Medications: Home Meds Insulin Detemir [Levemir] 15 unit SUBCUT BID 03/24/16 [History] LORazepam [Ativan] 0.5 mg PO BID PRN 03/24/16 [History] Ondansetron [Ondansetron ODT] 8 mg PO QID PRN 04/19/16 [History] Insulin Aspart [Novolog Flexpen] 16 - 20 unit SUBCUT TIDMEALS 05/15/16 [History] Omeprazole 20 mg PO DAILY 05/15/16 [History] Albuterol Sulfate [Proair Hfa] 1 puff INH Q4H PRN 06/12/16 [History] Promethazine HCl 25 mg PO Q6H PRN 08/24/16 [History] Morphine [MS Contin] 60 mg PO Q6H 10/07/16 [History] Budesonide/Formoterol [Symbicort 160-4.5 MCG] 1 puff INH BID 10/27/16 [History] DULoxetine HCl [Cymbalta] 30 mg PO DAILY 10/27/16 [History] Past Medical History - Past Health History Medical/Surgical History: Denies Medical/Surgical History HEENT History: Reports: Allergic Rhinitis Other HEENT History: dental abcess Cardiovascular History: Reports: None Respiratory History: Reports: Asthma Gastrointestinal History: Reports: GI Bleed, Hepatitis, PUD, Other (See Below) Other Gastrointestinal History: hx of C-diff, hx of Hepatitis B Genitourinary History: Reports: UTI, Recurrent Other Genitourinary History: current UTI [employer] History: Reports: Other (See Below) Other OB/BYN History: had miscarriage twice Musculoskeletal History: Reports: Back Pain, Chronic, Other (See Below) Neurological History: Reports: Migraines, Seizure 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, last on was 4 months ago Psychiatric History: Reports: Anxiety, Depression Endocrine/Metabolic History: Reports: Diabetes, Type I Hematologic History: Reports: Anemia, Blood Transfusion(s) Immunologic History: Reports: None Oncologic (Cancer) History: Reports: None Dermatologic History: Reports: Other (See Below) Other Dermatologic History: possible infection from port removal R upper chest - Infectious Disease History Infectious Disease History: Reports: C-Difficile, Chicken Pox, Hepatitis B, Influenza - Past Surgical History Head Surgeries/Procedures: Reports: None HEENT Surgical History: Reports: Tonsillectomy Cardiovascular Surgical History: Reports: None Respiratory Surgical History: Reports: None GI Surgical History: Reports: Appendectomy, Cholecystectomy, ERCP Female Surgical History: Reports: None Endocrine Surgical History: Reports: None Neurological Surgical History: Reports: None Musculoskeletal Surgical History: Reports: None Oncologic Surgical History: Reports: None Dermatological Surgical History: Reports: None - History Comment History Comment: She has had over [address] scans in the last 4 years. Social & Family History - Family History Family Medical History: Noncontributory HEENT: Reports: Impaired Vision Cardiac: Reports: Heart Failure Respiratory: Reports: Asthma GI: Reports: None : Reports: Renal Disease/Insufficiency OBGYN: Reports: Musculoskeletal: Reports: Back pain, Chronic Neurological: Reports: Seizure Psychiatric: Reports: None Endocrine/Metabolic: Reports: Diabetes, Type I Hematologic: Reports: None Immunologic: Reports: None Dermatologic: Reports: None Oncologic: Reports: Breast, Cervix - Tobacco Use Smoking Status *Q: Former Smoker Years of Tobacco use: 4 Packs/Tins Daily: 1 Used Tobacco, but Quit: Yes Month Tobacco Last Used: 8 months ago Second Hand Smoke Exposure: Yes - Caffeine Use Caffeine Use: Reports: Soda - Alcohol Use Days Per Week of Alcohol Use: 0 - Recreational Drug Use Recreational Drug Use: No Drug Use in Last 12 Months: Yes Recreational Drug Type: Reports: Other (see below) Other Recreational Drug Type: patient verbalized she took oxymorphone prior to admission Recreational Drug Use Frequency: Patient Refuses To Answer - Living Situation & Occupation Living situation: Reports: with Significant Other, with Family, Other Occupation: Unemployed H&P Review of Systems - Review of Systems: Review Of Systems: See Below General: Reports: Weakness, Decreased Appetite HEENT: Reports: No Symptoms Pulmonary: Reports: No Symptoms Cardiovascular: Reports: No Symptoms Gastrointestinal: Reports: Abdominal Pain, Nausea, Vomiting Genitourinary: Reports: No Symptoms Musculoskeletal: Reports: No Symptoms Skin: Reports: No Symptoms Psychiatric: Reports: No Symptoms Neurological: Reports: No Symptoms Hematologic/Lymphatic: Reports: No Symptoms Immunologic: Reports: No Symptoms Exam - Exam Exam: See Below - Vital Signs Vital Signs: Last Vital Signs Temp 36.5 C 11/27/16 08:00 Pulse 99 11/27/16 08:00 Resp 18 11/27/16 08:00 BP 101/61 11/27/16 08:00 Pulse Ox 96 11/27/16 08:00 Weight: 46.7 kg - Exam Quality Assessment: No: Supplemental Oxygen General: Alert, Oriented, Cooperative, Other (Crying) HEENT: Conjunctiva Clear, EACs Clear, Mucosa Moist & [place] Neck: Supple, Trachea Midline Lungs: Clear to Auscultation, Normal Respiratory Effort Cardiovascular: Regular Rate, Regular Rhythm Abdomen: Soft, Tenderness, Hypoactive Bowel Sounds Back Exam: Normal Inspection Extremities: Normal Inspection Skin: Warm, Dry, Intact Neurological: Cranial Nerves Intact Psychiatric: Alert, Normal Affect, Depressed - Patient Data Lab Results last 24 hrs: Laboratory Results - last 24 hr 11/26/16 11/27/16 11/27/16 Range/Units 20:52 06:26 06:26 WBC 12.33 H (4.0-11.0) K/uL RBC 4.02 L (4.30-5.90) M/uL Hgb 11.2 L (12.0-16.0) g/dL Hct 35.4 L (36.0-46.0) % MCV 88.1 (80.0-98.0) fL MCH 27.9 (27.0-32.0) pg MCHC 31.6 (31.0-37.0) g/dL RDW Std Deviation 50.7 (28.0-62.0) fl RDW Coeff of Zak 16 H (11.0-15.0) % Plt Count 360 (150-400) K/uL MPV 9.60 (7.40-12.00) fL Neut % (Auto) 58.9 (48.0-80.0) % Lymph % (Auto) 33.1 (16.0-40.0) % [place] % (Auto) 7.5 (0.0-15.0) % Eos % (Auto) 0.2 (0.0-7.0) % Baso % (Auto) 0.3 (0.0-1.5) % Neut # (Auto) 7.3 H (1.4-5.7) K/uL Lymph # (Auto) 4.1 H (0.6-2.4) K/uL [place] # (Auto) 0.9 H (0.0-0.8) K/uL Eos # (Auto) 0.0 (0.0-0.7) K/uL Baso # (Auto) 0.0 (0.0-0.1) K/uL Nucleated RBC % 0.0 /100WBC Nucleated RBCs # 0 K/uL Sodium 145 (136-146) mmol/L Potassium 3.0 L (3.5-5.1) mmol/L Chloride 110 (98-110) mmol/L Carbon Dioxide 18 L (21-31) mmol/L BUN 11 (6.0-23.0) mg/dL Creatinine 0.9 (0.6-1.5) mg/dL Est Cr Clr Drug Dosing 67.44 mL/min Estimated GFR (MDRD) > 60.0 ml/min Glucose 122 H (60-110) mg/dL POC Glucose > 500 H (60-110) mg/dL Calcium 8.1 L (8.8-10.8) mg/dL Result Diagrams: 11/27/16 06:26 11/27/16 06:26 Lam Results last 24 hrs: Microbiology 11/26/16 20:00 Clostridium difficile Toxin A&B (M) - Final Stool / Feces - Stool, Liquid Negative for C.Diff Toxin/AG *Q Meaningful Use (ADM) - VTE *Q VTE Criteria *Q: - Stroke *Q Stroke Criteria *Q: - AMI *Q AMI Criteria *Q: - Problem List (1) Hyperglycemia due to type 1 diabetes mellitus SNOMED Code(s): 363077653962307, 474591086240563 ICD Code: E10.65 - TYPE 1 DIABETES MELLITUS WITH HYPERGLYCEMIA Status: Chronic Priority: High Current Visit: Yes Problem Details: 3 emergency room visits within a 24-hour period (2) Dehydration SNOMED Code(s): 79128057 ICD Code: E86.0 - DEHYDRATION Status: Acute Current Visit: No (3) Abdominal pain SNOMED Code(s): 93302532 ICD Code: R10.9 - UNSPECIFIED ABDOMINAL PAIN Status: Chronic Priority: High Current Visit: Yes Problem Details: IV normal saline 125 mL per hour. Diabetic diet as tolerated, clear liquids (4) Substance abuse SNOMED Code(s): 18668204 ICD Code: F19.10 - OTHER PSYCHOACTIVE SUBSTANCE ABUSE, UNCOMPLICATED Status : Acute Priority: High Current Visit: Yes (5) Medical non-compliance SNOMED Code(s): 264899528 ICD Code: Z91.19 - PATIENT'S NONCOMPLIANCE W OTH MEDICAL TREATMENT AND REGIMEN Status: Acute Current Visit: Yes Problem List Initiated/Reviewed/Updated: Yes Orders Last 24hrs: Active Orders 24 hr Category Date Time Status Clear Liquid Diet [DIET] Diet 11/26/16 Dinner Active DULoxetine [Cymbalta] Med 11/27/16 09:00 Active 30 mg PO DAILY Insulin Aspart [NovoLOG] Med 11/27/16 07:30 Active See Protocol SUBCUT TIDAC Insulin Detemir [Levemir] Med 11/26/16 21:00 Active 15 unit SUBCUT BID Omeprazole Med 11/27/16 09:00 Active 20 mg PO DAILY Ondansetron [Zofran ODT] Med 11/26/16 19:14 Active 4 mg PO Q4H PRN Potassium Chloride 40 meq Med 11/27/16 09:15 Active Sodium Chloride 0.9% [Normal Saline] 500 ml IV ASDIRECTED Sodium Chloride 0.9% [Normal Saline] 1,000 ml Med 11/26/16 20:00 Active IV ASDIRECTED oxyCODONE Med 11/26/16 19:15 Active 5 mg PO Q4H PRN Medication Orders Duloxetine HCl (Cymbalta) 30 mg PO DAILY [facility] Last Admin: 11/27/16 09:14 Dose: 30 mg Sodium Chloride (Normal Saline) 1,000 mls @ 125 mls/hr IV ASDIRECTED PIP[facility] Last Admin: 11/27/16 05:16 Dose: 125 mls/hr Infusion: 11/27/16 05:09 Dose: 125 mls/hr Admin: 11/26/16 21:09 Dose: 125 mls/hr Potassium Chloride 40 meq/ (Sodium Chloride) 520 mls @ 130 mls/hr IV ASDIRECTED [facility] Last Admin: 11/27/16 09:13 Dose: 130 mls/hr Insulin Aspart (Novolog) 0 unit SUBCUT TIDAC [facility] PRN Reason: Protocol Last Admin: 11/27/16 06:41 Dose: Not Given Insulin Detemir (Levemir) 15 unit SUBCUT BID [facility] Last Admin: 11/27/16 09:14 Dose: 15 units Admin: 11/26/16 21:19 Dose: 15 units Omeprazole (Omeprazole) 20 mg PO DAILY [facility] Last Admin: 11/27/16 09:14 Dose: 20 mg Ondansetron HCl (Zofran Odt) 4 mg PO Q4H PRN PRN Reason: Nausea/Vomiting Last Admin: 11/27/16 05:25 Dose: 4 mg Oxycodone HCl (Oxycodone) 5 mg PO Q4H PRN PRN Reason: Pain Last Admin: 11/27/16 09:17 Dose: 5 mg Admin: 11/27/16 05:15 Dose: 5 mg Admin: 11/27/16 01:29 Dose: 5 mg Admin: 11/26/16 21:09 Dose: 5 mg Assessment/Plan Comment:: Had a long discussion with patient with regards to her overall health history. The patient's father was there and then rejected the recommendation for seeking psychiatric care for his daughter. I think followup with psychiatric health would be appropriate for this patient as an outpatient. Interestingly, the patient has been resting comfortably for the most part without pain however, when the patient is a woke and or observed she is crying and tearful. Also the patient had been observed self inducing vomiting. When asked about this the patient says it makes her feel better. The patient is hypokalemic and I've replace the patient's potassium. This will be monitored. I suspect that the patient likely will be appropriate for discharge either later today or tomorrow morning. The patient's previous visit and essentially the same discussion as I had today with regards to her compliance issues. The patient has a pattern of noncompliance and inability to care for herself which is why I have been recommending outpatient psychiatric treatment. The patient will be followed closely and attempt lateral be adjusted as conditions and information indicates.
[2016-11-28] MEDS: Sodium Chloride 0.9% 1,000 ML IV SCH (01:36)
[2016-11-28] MEDS: oxyCODONE 5 MG Tab PO PRN ×3 (02:04→10:29)
[2016-11-28] MEDS: Ondansetron 4 MG Tab.DIS PO PRN (03:03)
[2016-11-28] MEDS: DULoxetine 30 MG Cap PO SCH (08:02)
[2016-11-28] MEDS: Insulin Aspart 100 Units/ML 3 ML Pen SUBCUT SCH (08:03)
[2016-11-28] MEDS: Omeprazole 20 MG Cap.CR PO SCH (08:03)
[2016-11-28 08:36] VITALS: BP 120/86
--- NOTE | 2016-11-28 09:29 | PCM.DCSUM1 ---
<Tavares,Anders - Last Filed: 11/28/16 09:51> Discharge Summary - Hospital Course Free Text/Narrative:: The patient is a 26-year-old lady with history of DM, chronic vomiting, opiate use disorder and multiple ER visits and hospital admissions who presented to the emergency department 3 times in 24-hour period with severe hyperglycemia before ultimately being admitted for observation on 11/27. The patient was also noted to be severely dehydrated and she was fluid resuscitated in the emergency department. On the floor patient was started on her insulin observed for further workup if necessary. Her blood glucose fluctuated high and low during admission which is typically usual for her. She was noted to have Leukocytosis at admission but remained afebrile with stable vitals. She requested to be discharged on morning of 11/28/16. She was set-up for f/u with her PCP in 2 days on 11/30/16. She was complaining of severe pain and requesting to speak to her PCP to have her pain medication refilled prior to discharge. Since this was not possible she was given Oxycodone 5 mg 7 tabs total with no refills. No other changes to her medications were made. - Discharge Data Discharge Date: 11/28/16 Discharge Disposition: Home, Self-Care 01 Condition: Fair - Patient Instructions Diet: Usual Diet as Tolerated Activity: As Tolerated - Discharge Plan Prescriptions/Med Rec: oxyCODONE 5 mg PO Q4H PRN #7 tablet PRN Reason: Abdominal Pain Home Medications: Home Meds Insulin Detemir [Levemir] 15 unit SUBCUT BID 03/24/16 [History] LORazepam [Ativan] 0.5 mg PO BID PRN 03/24/16 [History] Ondansetron [Ondansetron ODT] 8 mg PO QID PRN 04/19/16 [History] Insulin Aspart [Novolog Flexpen] 16 - 20 unit SUBCUT TIDMEALS 05/15/16 [History] Omeprazole 20 mg PO DAILY 05/15/16 [History] Albuterol Sulfate [Proair Hfa] 1 puff INH Q4H PRN 06/12/16 [History] Promethazine HCl 25 mg PO Q6H PRN 08/24/16 [History] Morphine [MS Contin] 60 mg PO Q12H 10/07/16 [History] Budesonide/Formoterol [Symbicort 160-4.5 MCG] 1 puff INH BID 10/27/16 [History] DULoxetine HCl [Cymbalta] 30 mg PO DAILY 10/27/16 [History] oxyCODONE 5 mg PO Q4H PRN #7 tablet 11/28/16 [Rx] Patient Handouts: Hypoglycemia Forms: ED Department Discharge Referrals: Maynor Black MD [Primary Care Provider] - 11/30/16 9:00 am - Discharge Summary/Plan Comment DC Time >30 min.: No - Patient Data Vitals - Most Recent: Last Vital Signs Temp 36.7 C 11/28/16 08:00 Pulse 103 H 11/28/16 08:00 Resp 18 11/28/16 08:00 BP 120/86 11/28/16 08:00 Pulse Ox 97 11/28/16 08:00 Weight - Most Recent: 46.7 kg I&O - Last 24 hours: Intake & Output 11/27/16 11/28/16 11/28/16 22:59 06:59 14:59 Intake Total 1580 1790 Output Total 1500 1250 Balance 80 540 Lab Results - Last 24 hrs: Laboratory Results - last 24 hr 11/27/16 11/27/16 11/27/16 Range/Units 05:23 06:21 11:53 Glucose (60-110) mg/dL POC Glucose 66 103 117 H (60-110) mg/dL 11/27/16 11/27/16 11/27/16 Range/Units 16:35 16:41 17:02 Glucose 51 L (60-110) mg/dL POC Glucose 33 L 32 L (60-110) mg/dL 11/27/16 11/27/16 11/27/16 Range/Units 18:08 21:09 22:04 Glucose (60-110) mg/dL POC Glucose 75 46 L 124 H (60-110) mg/dL 11/28/16 11/28/16 Range/Units 02:03 07:22 Glucose (60-110) mg/dL POC Glucose 137 H 255 H (60-110) mg/dL Med Orders - Current: Current Medications Duloxetine HCl (Cymbalta) 30 mg PO DAILY [facility] Last Admin: 11/28/16 08:02 Dose: 30 mg Sodium Chloride (Normal Saline) 1,000 mls @ 125 mls/hr IV ASDIRECTED [facility] Last Admin: 11/28/16 01:36 Dose: 125 mls/hr Potassium Chloride 40 meq/ (Sodium Chloride) 520 mls @ 130 mls/hr IV ASDIRECTED [facility] Last Admin: 11/27/16 09:13 Dose: 130 mls/hr Insulin Aspart (Novolog) 0 unit SUBCUT TIDAC [facility] PRN Reason: Protocol Last Admin: 11/28/16 08:03 Dose: 6 units Omeprazole (Omeprazole) 20 mg PO DAILY [facility] Last Admin: 11/28/16 08:03 Dose: 20 mg Ondansetron HCl (Zofran Odt) 4 mg PO Q4H PRN PRN Reason: Nausea/Vomiting Last Admin: 11/28/16 03:03 Dose: 4 mg Oxycodone HCl (Oxycodone) 5 mg PO Q4H PRN PRN Reason: Pain Last Admin: 11/28/16 06:06 Dose: 5 mg Discontinued Medications Sodium Chloride (Normal Saline) 1,000 mls @ 999 mls/hr IV .Bolus ONE Stop: 11/26/16 17:13 Last Infusion: 11/26/16 17:48 Dose: 999 mls/hr Sodium Chloride (Normal Saline) 1,000 mls @ 999 mls/hr IV .Bolus ONE Stop: 11/26/16 18:28 Last Admin: 11/26/16 17:48 Dose: 999 mls/hr Potassium Chloride/Sodium Chloride (Normal Saline With 40 Meq Kcl) 500 mls @ 125 mls/hr IV ASDIRECTED [facility] Insulin Aspart (Novolog) 12 unit SUBCUT STAT STA Stop: 11/26/16 21:05 Last Admin: 11/26/16 21:20 Dose: 12 units Insulin Detemir (Levemir) 15 unit SUBCUT BID [facility] Last Admin: 11/27/16 21:13 Dose: Not Given Insulin Human Regular (Novolin R) 20 unit IVPUSH ONETIME ONE PRN Reason: Protocol Stop: 11/26/16 17:29 Last Admin: 11/26/16 17:39 Dose: 20 units Ondansetron HCl (Zofran) 4 mg IVPUSH ONETIME ONE Stop: 11/26/16 16:14 Last Admin: 11/26/16 16:38 Dose: 4 mg *Q Meaningful Use (DIS) - VTE *Q VTE Criteria *Q: - Stroke *Q Stroke Criteria *Q: - AMI *Q AMI Criteria *Q: <Kash Salgado - Last Filed: 11/28/16 12:56> Discharge Summary - Hospital Course Free Text/Narrative:: I was present with the resident during history and physical examination. I've discussed the case with the resident and agree with the findings and plan as documented in the resident's note. Further I recommended psychiatric followup for the patient. - Discharge Diagnosis/Problem(s) (1) Hyperglycemia due to type 1 diabetes mellitus SNOMED Code(s): 197373331132075, 305322746824380 ICD Code: E10.65 - TYPE 1 DIABETES MELLITUS WITH HYPERGLYCEMIA Status: Chronic Priority: High Problem Details: 3 emergency room visits within a 24- hour period (2) Dehydration SNOMED Code(s): 20685571 ICD Code: E86.0 - DEHYDRATION Status: Acute (3) Abdominal pain SNOMED Code(s): 60636656 ICD Code: R10.9 - UNSPECIFIED ABDOMINAL PAIN Status: Chronic Priority: High Problem Details: IV normal saline 125 mL per hour. Diabetic diet as tolerated, clear liquids (4) Substance abuse SNOMED Code(s): 09744027 ICD Code: F19.10 - OTHER PSYCHOACTIVE SUBSTANCE ABUSE, UNCOMPLICATED Status : Acute Priority: High (5) Medical non-compliance SNOMED Code(s): 596231597 ICD Code: Z91.19 - PATIENT'S NONCOMPLIANCE W OTH MEDICAL TREATMENT AND REGIMEN Status: Acute - Patient Data Vitals - Most Recent: Last Vital Signs Temp 36.7 C 11/28/16 08:00 Pulse 103 H 11/28/16 08:00 Resp 18 11/28/16 08:00 BP 120/86 11/28/16 08:00 Pulse Ox 97 11/28/16 08:00 I&O - Last 24 hours: Intake & Output 11/27/16 11/28/16 11/28/16 22:59 06:59 14:59 Intake Total 1580 1790 Output Total 1500 1250 Balance 80 540 Lab Results - Last 24 hrs: Laboratory Results - last 24 hr 11/27/16 11/27/16 11/27/16 Range/Units 05:23 06:21 11:53 Glucose (60-110) mg/dL POC Glucose 66 103 117 H (60-110) mg/dL 11/27/16 11/27/16 11/27/16 Range/Units 16:35 16:41 17:02 Glucose 51 L (60-110) mg/dL POC Glucose 33 L 32 L (60-110) mg/dL 11/27/16 11/27/16 11/27/16 Range/Units 18:08 21:09 22:04 Glucose (60-110) mg/dL POC Glucose 75 46 L 124 H (60-110) mg/dL 11/28/16 11/28/16 Range/Units 02:03 07:22 Glucose (60-110) mg/dL POC Glucose 137 H 255 H (60-110) mg/dL Med Orders - Current: Current Medications Discontinued Medications Duloxetine HCl (Cymbalta) 30 mg PO DAILY [facility] Last Admin: 11/28/16 08:02 Dose: 30 mg Sodium Chloride (Normal Saline) 1,000 mls @ 999 mls/hr IV .Bolus ONE Stop: 11/26/16 17:13 Last Infusion: 11/26/16 17:48 Dose: 999 mls/hr Sodium Chloride (Normal Saline) 1,000 mls @ 999 mls/hr IV .Bolus ONE Stop: 11/26/16 18:28 Last Admin: 11/26/16 17:48 Dose: 999 mls/hr Sodium Chloride (Normal Saline) 1,000 mls @ 125 mls/hr IV ASDIRECTED [facility] Last Admin: 11/28/16 01:36 Dose: 125 mls/hr Potassium Chloride/Sodium Chloride (Normal Saline With 40 Meq Kcl) 500 mls @ 125 mls/hr IV ASDIRECTED [facility] Potassium Chloride 40 meq/ (Sodium Chloride) 520 mls @ 130 mls/hr IV ASDIRECTED [facility] Last Admin: 11/27/16 09:13 Dose: 130 mls/hr Insulin Aspart (Novolog) 0 unit SUBCUT TIDAC [facility] PRN Reason: Protocol Last Admin: 11/28/16 08:03 Dose: 6 units Insulin Aspart (Novolog) 12 unit SUBCUT STAT STA Stop: 11/26/16 21:05 Last Admin: 11/26/16 21:20 Dose: 12 units Insulin Detemir (Levemir) 15 unit SUBCUT BID [facility] Last Admin: 11/27/16 21:13 Dose: Not Given Insulin Human Regular (Novolin R) 20 unit IVPUSH ONETIME ONE PRN Reason: Protocol Stop: 11/26/16 17:29 Last Admin: 11/26/16 17:39 Dose: 20 units Omeprazole (Omeprazole) 20 mg PO DAILY [facility] Last Admin: 11/28/16 08:03 Dose: 20 mg Ondansetron HCl (Zofran) 4 mg IVPUSH ONETIME ONE Stop: 11/26/16 16:14 Last Admin: 11/26/16 16:38 Dose: 4 mg Ondansetron HCl (Zofran Odt) 4 mg PO Q4H PRN PRN Reason: Nausea/Vomiting Last Admin: 11/28/16 03:03 Dose: 4 mg Oxycodone HCl (Oxycodone) 5 mg PO Q4H PRN PRN Reason: Pain Last Admin: 11/28/16 10:29 Dose: 5 mg *Q Meaningful Use (DIS) - VTE *Q VTE Criteria *Q: - Stroke *Q Stroke Criteria *Q: - AMI *Q AMI Criteria *Q:
== END 2016-11-28 10:43 | disposition home or self-care (01) ==
LOC: MW.ED 15:54 → MW.ICU 17:53
PROVIDERS: ADMIT Internal Medicine; ATTEND Internal Medicine
DX: E10.65 Type 1 diabetes mellitus with hyperglycemia (principal); G40.909 Epilepsy, unspecified, not intractable, without status epilepticus; E86.0 Dehydration; R11.10 Vomiting, unspecified; F11.10 Opioid abuse, uncomplicated; F19.10 Other psychoactive substance abuse, uncomplicated; F41.9 Anxiety disorder, unspecified; F32.9 Major depressive disorder, single episode, unspecified; E10.649 Type 1 diabetes mellitus with hypoglycemia without coma; D64.9 Anemia, unspecified; J45.909 Unspecified asthma, uncomplicated; R10.9 Unspecified abdominal pain; G43.909 Migraine, unspecified, not intractable, without status migrainosus; Z91.19 Patient's noncompliance with other medical treatment and regimen; Z79.899 Other long term (current) drug therapy; Z79.4 Long term (current) use of insulin; Z87.11 Personal history of peptic ulcer disease; Z87.440 Personal history of urinary (tract) infections; Z90.49 Acquired absence of other specified parts of digestive tract; Z98.890 Other specified postprocedural states; Z87.891 Personal history of nicotine dependence; Z88.0 Allergy status to penicillin; Z88.8 Allergy status to other drugs, medicaments and biological substances; Z88.1 Allergy status to other antibiotic agents
CPT/HCPCS: 36415; 36600; 80048; 80053; 82803; 82947; 82962; 83735; 84100; 85025; 85610; 87324; 93005; 96361; 96374; 96375; 99285; A9270; G0378; J1815; J2405; J3480; J7040; 99283

== ENCOUNTER 2016-11-29 13:31 | Emergency (ER) | payer MEDICAID ==
[2016-11-29] MEDS ORDERED: Sodium Chloride 0.9% 1,000 ML IV ONE (13:42)
[2016-11-29 13:46] VITALS: BP 135/85
--- NOTE | 2016-11-29 13:50 | EDM.PDOC ---
ED HPI GENERAL MEDICAL PROBLEM - General Chief Complaint: Diabetic Complaint Stated Complaint: HIGH BLOOD SUGAR Time Seen by Provider: 11/29/16 13:46 - History of Present Illness INITIAL COMMENTS - FREE TEXT/NARRATIVE: HISTORY AND PHYSICAL: History of present illness: Patient 26-year-old female history of diabetes who presents status post narcotic use patient as reported dependency on opiates. Patient denies chest pain shortness of breath vomiting diarrhea or any other concern. Patient is well -known to us and also sister diabetes blood sugars in the 300s on arrival here Review of systems: As per history of present illness and below otherwise all systems reviewed and negative. Past medical history: As per history of present illness and as reviewed below otherwise noncontributory. Surgical history: As per history of present illness and as reviewed below otherwise noncontributory. Social history: No reported history of drug or alcohol abuse. Family history: As per history of present illness and as reviewed below otherwise noncontributory. Physical exam: HEENT: Atraumatic, normocephalic, pupils reactive, negative for conjunctival pallor or scleral icterus, mucous membranes moist, throat clear, neck supple, nontender, trachea midline. Lungs: Clear to auscultation, breath sounds equal bilaterally, chest nontender. Heart: S1S2, regular, negative for clicks, rubs, or JVD. Abdomen: Soft, nondistended, nontender. Negative for masses or hepatosplenomegaly. Negative for costovertebral tenderness. Pelvis: Stable nontender. Genitourinary: Deferred. Rectal: Deferred. Extremities: Atraumatic, negative for cords or calf pain. Neurovascular unremarkable. Neuro: Awake, alert, oriented. Cranial nerves II through XII unremarkable. Cerebellum unremarkable. Motor and sensory unremarkable throughout. Exam nonfocal. Diagnostics: CBC CMP ABG Therapeutics: normal saline 1 L bolus Impression: #1 diabetes with medical noncompliance #2 substance abuse Definitive disposition and diagnosis as appropriate pending reevaluation and review of above. abdomen Pain Score (Numeric/FACES): 10 - Related Data Allergies Allergy/AdvReac Type Severity Reaction Status Date / Time acetaminophen [From Tylenol] Allergy Liver Verified 11/29/16 13:39 Problems amoxicillin Allergy Hives Verified 11/29/16 13:39 amoxicillin trihydrate Allergy Hives Verified 11/29/16 13:39 [From Amoxil] ibuprofen Allergy Liver Verified 11/29/16 13:39 Problems ketorolac tromethamine Allergy Hives Verified 11/29/16 13:39 [From Toradol] metoclopramide HCl Allergy Airway Verified 11/29/16 13:39 [From Reglan] Tightness tramadol Allergy Hives Verified 11/29/16 13:39 Home Meds: Home Meds Insulin Detemir [Levemir] 15 unit SUBCUT BID 03/24/16 [History] LORazepam [Ativan] 0.5 mg PO BID PRN 03/24/16 [History] Ondansetron [Ondansetron ODT] 8 mg PO QID PRN 04/19/16 [History] Insulin Aspart [Novolog Flexpen] 16 - 20 unit SUBCUT TIDMEALS 05/15/16 [History] Omeprazole 20 mg PO DAILY 05/15/16 [History] Albuterol Sulfate [Proair Hfa] 1 puff INH Q4H PRN 06/12/16 [History] Promethazine HCl 25 mg PO Q6H PRN 08/24/16 [History] Morphine [MS Contin] 60 mg PO Q12H 10/07/16 [History] Budesonide/Formoterol [Symbicort 160-4.5 MCG] 1 puff INH BID 10/27/16 [History] DULoxetine HCl [Cymbalta] 30 mg PO DAILY 10/27/16 [History] oxyCODONE 5 mg PO Q4H PRN #7 tablet 11/28/16 [Rx] Past Medical History - Past Health History Medical/Surgical History: Denies Medical/Surgical History HEENT History: Reports: Allergic Rhinitis Other HEENT History: dental abcess Cardiovascular History: Reports: None Respiratory History: Reports: Asthma Gastrointestinal History: Reports: GI Bleed, Hepatitis, PUD, Other (See Below) Other Gastrointestinal History: hx of C-diff, hx of Hepatitis B Genitourinary History: Reports: UTI, Recurrent Other Genitourinary History: current UTI 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) Other OB/BYN History: had miscarriage twice Musculoskeletal History: Reports: Back Pain, Chronic, Other (See Below) Neurological History: Reports: Migraines, Seizure 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, last on was 4 months ago Psychiatric History: Reports: Anxiety, Depression Endocrine/Metabolic History: Reports: Diabetes, Type I Hematologic History: Reports: Anemia, Blood Transfusion(s) Immunologic History: Reports: None Oncologic (Cancer) History: Reports: None Dermatologic History: Reports: Other (See Below) Other Dermatologic History: possible infection from port removal R upper chest - Infectious Disease History Infectious Disease History: Reports: C-Difficile, Chicken Pox, Hepatitis B, Influenza - Past Surgical History Head Surgeries/Procedures: Reports: None HEENT Surgical History: Reports: Tonsillectomy Cardiovascular Surgical History: Reports: None Respiratory Surgical History: Reports: None GI Surgical History: Reports: Appendectomy, Cholecystectomy, ERCP Female Surgical History: Reports: None Endocrine Surgical History: Reports: None Neurological Surgical History: Reports: None Musculoskeletal Surgical History: Reports: None Oncologic Surgical History: Reports: None Dermatological Surgical History: Reports: None - History Comment History Comment: She has had over [address] scans in the last 4 years. Social & Family History - Family History Family Medical History: Noncontributory HEENT: Reports: Impaired Vision Cardiac: Reports: Heart Failure Respiratory: Reports: Asthma GI: Reports: None : Reports: Renal Disease/Insufficiency OBGYN: Reports: Musculoskeletal: Reports: Back pain, Chronic Neurological: Reports: Seizure Psychiatric: Reports: None Endocrine/Metabolic: Reports: Diabetes, Type I Hematologic: Reports: None Immunologic: Reports: None Dermatologic: Reports: None Oncologic: Reports: Breast, Cervix - Tobacco Use Smoking Status *Q: Former Smoker Years of Tobacco use: 4 Packs/Tins Daily: 1 Used Tobacco, but Quit: Yes Month Tobacco Last Used: 8 months ago Second Hand Smoke Exposure: Yes - Caffeine Use Caffeine Use: Reports: Soda - Alcohol Use Days Per Week of Alcohol Use: 0 - Recreational Drug Use Recreational Drug Use: No Drug Use in Last 12 Months: Yes Recreational Drug Type: Reports: Other (see below) Other Recreational Drug Type: patient verbalized she took oxymorphone prior to admission Recreational Drug Use Frequency: Patient Refuses To Answer - Living Situation & Occupation Living situation: Reports: with Significant Other, with Family, Other Occupation: Unemployed ED ROS GENERAL - Review of Systems Review Of Systems: ROS reveals no pertinent complaints other than HPI. ED EXAM GENERAL NO PERIP PULSE - Physical Exam Exam: See Below (See dictation) Course - Vital Signs Last Recorded V/S: Last Vital Signs Temp 36.6 C 11/29/16 13:43 Pulse 111 H 11/29/16 13:43 Resp 18 11/29/16 13:43 BP 135/85 11/29/16 13:43 Pulse Ox 99 11/29/16 13:43 - Orders/Labs/Meds Orders: Active Orders 24 hr Category Date Time Status ABG [BLOOD GAS ARTERIAL] [BG] Stat Lab 11/29/16 13:46 Ordered CBC WITH AUTO DIFF [HEME] Stat Lab 11/29/16 13:42 Ordered COMPREHENSIVE METABOLIC PN,CMP [CHEM] Stat Lab 11/29/16 13:42 Ordered Sodium Chloride 0.9% [Normal Saline] 1,000 ml Med 11/29/16 13:42 Active IV STAT Medication Orders Sodium Chloride (Normal Saline) 1,000 mls @ 999 mls/hr IV STAT ONE Stop: 11/29/16 14:42 Meds: Medications Generic Name Dose Route Start Last Admin Trade Name Freq PRN Reason Stop Dose Admin Sodium Chloride 1,000 mls @ 999 mls/hr 11/29/16 13:42 Normal Saline IV 11/29/16 14:42 STAT ONE Departure - Departure Time of Disposition: 13:49 Disposition: Against Medical Advice 07 Condition: undetermined Clinical Impression: Substance abuse, Medical non-compliance - Discharge Information Instructions: Type 1 Diabetes Mellitus, Adult Forms: ED Department Discharge Additional Instructions: The following information is given to patients seen in the emergency department who are being discharged to home. This information is to outline your options for follow-up care. We provide all patients seen in our emergency department with a follow-up referral. The need for follow-up, as well as the timing and circumstances, are variable depending upon the specifics of your emergency department visit. If you don't have a primary care physician on staff, we will provide you with a referral. We always advise you to contact your personal physician following an emergency department visit to inform them of the circumstance of the visit and for follow-up with them and/or the need for any referrals to a consulting specialist. The emergency department will also refer you to a specialist when appropriate. This referral assures that you have the opportunity for followup care with a specialist. All of these measure are taken in an effort to provide you with optimal care, which includes your followup. Under all circumstances we always encourage you to contact your private physician who remains a resource for coordinating your care. When calling for followup care, please make the office aware that this follow-up is from your recent emergency room visit. If for any reason you are refused follow-up, please contact the [facility] emergency department at and asked to speak to the emergency department charge nurse. Stop drugs continue diabetic care/medication as prescribed follow up primary medical doctor in 2 days return as needed as discussed - My Orders Last 24 Hours: My Active Orders 11/29/16 13:46 ABG [BLOOD GAS ARTERIAL] [BG] Stat - Assessment/Plan Last 24 Hours: My Active Orders 11/29/16 13:46 ABG [BLOOD GAS ARTERIAL] [BG] Stat
== END 2016-11-29 13:49 | disposition left against medical advice (07) ==
LOC: MW.ED 13:31
DX: F19.10 Other psychoactive substance abuse, uncomplicated (principal); E10.9 Type 1 diabetes mellitus without complications; J45.909 Unspecified asthma, uncomplicated; F41.9 Anxiety disorder, unspecified; F32.9 Major depressive disorder, single episode, unspecified; Z91.14 Patient's other noncompliance with medication regimen; Z90.49 Acquired absence of other specified parts of digestive tract; Z98.890 Other specified postprocedural states; Z79.4 Long term (current) use of insulin; Z79.899 Other long term (current) drug therapy; Z87.891 Personal history of nicotine dependence; Z88.1 Allergy status to other antibiotic agents; Z88.8 Allergy status to other drugs, medicaments and biological substances
CPT/HCPCS: 99284

== ENCOUNTER 2016-11-30 10:57 | Inpatient (IN) | payer MEDICAID ==
[2016-11-30] MEDS ORDERED: Sodium Chloride 0.9% 10 ML Syringe FLUSH PRN (11:06)
[2016-11-30] MEDS ORDERED: Sodium Chloride 0.9% 1,000 ML IV ONE ×2 (11:06→14:14)
[2016-11-30] MEDS ORDERED: Sodium Chloride 0.9% 2.5 ML Syringe FLUSH PRN (11:06)
--- NOTE | 2016-11-30 11:14 | EDM.PDOC ---
ED HPI GENERAL MEDICAL PROBLEM - General Chief Complaint: Diabetic Complaint Stated Complaint: BLOOD SUGAR ISSUES Time Seen by Provider: 11/30/16 11:00 - History of Present Illness INITIAL COMMENTS - FREE TEXT/NARRATIVE: HISTORY AND PHYSICAL: History of present illness: Patient is a 26-year-old female with history of diabetes who was sent from her private medical doctor's office which laboratory analysis revealed a bicarbonate of 8 and a blood sugar in the 300s she had multiple episodes of diabetic ketoacidosis she has multiple medical problems well known to our emergency department she has had problems with medical compliance also as well as substance abuse on arrival here she is generalized malaise and does not appear much differently than the last 3 times a day seeing her over the last several days. She has had nausea vomiting she has had intermittent abdominal pain these are chronic intermittent problem for which the patient is still in need of GI consultation for gastroparesis. No fever chills no chest pain no other complaint Review of systems: As per history of present illness and below otherwise all systems reviewed and negative. Past medical history: As per history of present illness and as reviewed below otherwise noncontributory. Surgical history: As per history of present illness and as reviewed below otherwise noncontributory. Social history: No reported history of drug or alcohol abuse. Family history: As per history of present illness and as reviewed below otherwise noncontributory. Physical exam: HEENT: Atraumatic, normocephalic, pupils reactive, negative for conjunctival pallor or scleral icterus, mucous membranes dry, throat clear, neck supple, nontender, trachea midline. Lungs: Clear to auscultation, breath sounds equal bilaterally, chest nontender. Heart: S1S2, regular, negative for clicks, rubs, or JVD. Abdomen: Soft, nondistended, no localized. Negative for masses or hepatosplenomegaly. Negative for costovertebral tenderness. Pelvis: Stable nontender. Genitourinary: Deferred. Rectal: Deferred. Extremities: Atraumatic, negative for cords or calf pain. Neurovascular unremarkable. Neuro: Awake, alert, oriented. Cranial nerves II through XII unremarkable. Cerebellum unremarkable. Motor and sensory unremarkable throughout. Exam nonfocal. Diagnostics: CBC CMP UA hCG urine drug screen EKG chest x-ray Therapeutics: Normal saline 1 L bolus insulin drip Impression: #1 diabetic ketoacidosis #2 medical noncompliance #3 substance abuse Definitive disposition and diagnosis as appropriate pending reevaluation and review of above. abdomen Pain Score (Numeric/FACES): 7 - Related Data Allergies Allergy/AdvReac Type Severity Reaction Status Date / Time acetaminophen [From Tylenol] Allergy Liver Verified 11/30/16 10:58 Problems amoxicillin Allergy Hives Verified 11/30/16 10:58 amoxicillin trihydrate Allergy Hives Verified 11/30/16 10:58 [From Amoxil] ibuprofen Allergy Liver Verified 11/30/16 10:58 Problems ketorolac tromethamine Allergy Hives Verified 11/30/16 10:58 [From Toradol] metoclopramide HCl Allergy Airway Verified 11/30/16 10:58 [From Reglan] Tightness tramadol Allergy Hives Verified 11/30/16 10:58 Home Meds: Home Meds Insulin Detemir [Levemir] 15 unit SUBCUT BID 03/24/16 [History] LORazepam [Ativan] 0.5 mg PO BID PRN 03/24/16 [History] Ondansetron [Ondansetron ODT] 8 mg PO QID PRN 04/19/16 [History] Insulin Aspart [Novolog Flexpen] 16 - 20 unit SUBCUT TIDMEALS 05/15/16 [History] Omeprazole 20 mg PO DAILY 05/15/16 [History] Albuterol Sulfate [Proair Hfa] 1 puff INH Q4H PRN 06/12/16 [History] Promethazine HCl 25 mg PO Q6H PRN 08/24/16 [History] Morphine [MS Contin] 60 mg PO Q12H 10/07/16 [History] Budesonide/Formoterol [Symbicort 160-4.5 MCG] 1 puff INH BID 10/27/16 [History] DULoxetine HCl [Cymbalta] 30 mg PO DAILY 10/27/16 [History] oxyCODONE 5 mg PO Q4H PRN #7 tablet 11/28/16 [Rx] Past Medical History - Past Health History Medical/Surgical History: Denies Medical/Surgical History HEENT History: Reports: Allergic Rhinitis Other HEENT History: dental abcess Cardiovascular History: Reports: None Respiratory History: Reports: Asthma Gastrointestinal History: Reports: GI Bleed, Hepatitis, PUD, Other (See Below) Other Gastrointestinal History: hx of C-diff, hx of Hepatitis B Genitourinary History: Reports: UTI, Recurrent Other Genitourinary History: current UTI 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 (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) Other OB/BYN History: had miscarriage twice Musculoskeletal History: Reports: Back Pain, Chronic, Other (See Below) Neurological History: Reports: Migraines, Seizure 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, last on was 4 months ago Psychiatric History: Reports: Anxiety, Depression Endocrine/Metabolic History: Reports: Diabetes, Type I Hematologic History: Reports: Anemia, Blood Transfusion(s) Immunologic History: Reports: None Oncologic (Cancer) History: Reports: None Dermatologic History: Reports: Other (See Below) Other Dermatologic History: possible infection from port removal R upper chest - Infectious Disease History Infectious Disease History: Reports: C-Difficile, Chicken Pox, Hepatitis B, Influenza - Past Surgical History Head Surgeries/Procedures: Reports: None HEENT Surgical History: Reports: Tonsillectomy Cardiovascular Surgical History: Reports: None Respiratory Surgical History: Reports: None GI Surgical History: Reports: Appendectomy, Cholecystectomy, ERCP Female Surgical History: Reports: None Endocrine Surgical History: Reports: None Neurological Surgical History: Reports: None Musculoskeletal Surgical History: Reports: None Oncologic Surgical History: Reports: None Dermatological Surgical History: Reports: None - History Comment History Comment: She has had over [address] scans in the last 4 years. Social & Family History - Family History Family Medical History: Noncontributory HEENT: Reports: Impaired Vision Cardiac: Reports: Heart Failure Respiratory: Reports: Asthma GI: Reports: None : Reports: Renal Disease/Insufficiency OBGYN: Reports: Musculoskeletal: Reports: Back pain, Chronic Neurological: Reports: Seizure Psychiatric: Reports: None Endocrine/Metabolic: Reports: Diabetes, Type I Hematologic: Reports: None Immunologic: Reports: None Dermatologic: Reports: None Oncologic: Reports: Breast, Cervix - Tobacco Use Smoking Status *Q: Never Smoker Years of Tobacco use: 4 Packs/Tins Daily: 1 Used Tobacco, but Quit: Yes Month Tobacco Last Used: 8 months ago Second Hand Smoke Exposure: Yes - Caffeine Use Caffeine Use: Reports: Soda - Alcohol Use Days Per Week of Alcohol Use: 0 - Recreational Drug Use Recreational Drug Use: No Drug Use in Last 12 Months: Yes Recreational Drug Type: Reports: Other (see below) Other Recreational Drug Type: patient verbalized she took oxymorphone prior to admission Recreational Drug Use Frequency: Patient Refuses To Answer - Living Situation & Occupation Living situation: Reports: with Significant Other, with Family, Other Occupation: Unemployed ED ROS GENERAL - Review of Systems Review Of Systems: ROS reveals no pertinent complaints other than HPI. ED EXAM GENERAL NO PERIP PULSE - Physical Exam Exam: See Below (See dictated) Course - Vital Signs Last Recorded V/S: Last Vital Signs Temp 36.9 C 11/30/16 10:58 Pulse 99 11/30/16 10:58 Resp 18 11/30/16 10:58 BP 125/84 11/30/16 10:58 Pulse Ox 99 11/30/16 10:58 - Orders/Labs/Meds Orders: Active Orders 24 hr Category Date Time Status Cardiac Monitoring [RC] . DIRECTED Care 11/30/16 11:03 Active EKG Documentation Completion [RC] STAT Care 11/30/16 11:03 Active Chest 1V Frontal [CR] Stat Exams 11/30/16 11:06 Ordered CBC WITH AUTO DIFF [HEME] Stat Lab 11/30/16 11:03 Ordered COMPREHENSIVE METABOLIC PN,CMP [CHEM] Stat Lab 11/30/16 11:03 Ordered DRUG SCREEN, URINE [URCHEM] Stat Lab 11/30/16 11:03 Uncollected HCG QUALITATIVE,SERUM [CHEM] Stat Lab 11/30/16 11:03 Ordered INR,PT,PROTHROMBIN TIME [COAG] Stat Lab 11/30/16 11:03 Ordered LIPASE [CHEM] Stat Lab 11/30/16 11:14 Ordered UA W/O MICROSCOPIC [URIN] Stat Lab 11/30/16 11:03 Uncollected Insulin Regular, Human [NovoLIN R] 100 unit Med 11/30/16 11:15 Active Sodium Chloride 0.9% [Normal Saline] 99 ml IV TITRATE Insulin Regular, Human [NovoLIN R] 100 unit Med 11/30/16 11:30 Active Sodium Chloride 0.9% [Normal Saline] 99 ml IV TITRATE Sodium Chloride 0.9% [Normal Saline] 1,000 ml Med 11/30/16 11:06 Active IV STAT Sodium Chloride 0.9% [Saline Flush] Med 11/30/16 11:06 Active 10 ml FLUSH ASDIRECTED PRN Sodium Chloride 0.9% [Saline Flush] Med 11/30/16 11:06 Active 2.5 ml FLUSH ASDIRECTED PRN Saline Lock Insert [OM.PC] Stat Oth 11/30/16 11:03 Ordered Medication Orders Insulin Human Regular 100 unit (/ Sodium Chloride) 100 mls @ 4.4 mls/hr IV TITRATE PIPPA; 0.1 UNIT/KG/HR PRN Reason: Protocol Sodium Chloride (Normal Saline) 1,000 mls @ 999 mls/hr IV STAT ONE Stop: 11/30/16 12:06 Insulin Human Regular 100 unit (/ Sodium Chloride) 100 mls @ 4.4 mls/hr IV TITRATE PIPPA; 4.4 UNIT/HR PRN Reason: Protocol Sodium Chloride (Saline Flush) 10 ml FLUSH ASDIRECTED PRN PRN Reason: Keep Vein Open Sodium Chloride (Saline Flush) 2.5 ml FLUSH ASDIRECTED PRN PRN Reason: Keep Vein Open Labs: Laboratory Tests 11/30/16 Range/Units 11:16 ABG pH 7.240 L (7.35-7.45) ABG pCO2 10 L (35-45) mmHG ABG pO2 119 H (75-100) mmHG ABG HCO3 4 L (22-26) mEq/L ABG Total CO2 4.0 ABG Base Excess -20.9 L (-2.0-2.0) Meds: Medications Generic Name Dose Route Start Last Admin Trade Name Freq PRN Reason Stop Dose Admin Insulin Human Regular 100 unit 100 mls @ 4.4 mls/hr 11/30/16 11:15 / Sodium Chloride IV TITRATE PIPPA Protocol 0.1 UNIT/KG/HR Sodium Chloride 1,000 mls @ 999 mls/hr 11/30/16 11:06 Normal Saline IV 11/30/16 12:06 STAT ONE Insulin Human Regular 100 unit 100 mls @ 4.4 mls/hr 11/30/16 11:30 / Sodium Chloride IV TITRATE PIPPA Protocol 4.4 UNIT/HR Sodium Chloride 10 ml 11/30/16 11:06 Saline Flush FLUSH ASDIRECTED PRN Keep Vein Open Sodium Chloride 2.5 ml 11/30/16 11:06 Saline Flush FLUSH ASDIRECTED PRN Keep Vein Open Departure - Departure Time of Disposition: 11:28 Disposition: Admitted As Inpatient 65 Condition: serious Clinical Impression: Substance abuse, DKA (diabetic ketoacidoses) - Discharge Information Forms: ED Department Discharge - My Orders Last 24 Hours: My Active Orders 11/30/16 11:03 Cardiac Monitoring [RC] . DIRECTED EKG Documentation Completion [RC] STAT CBC WITH AUTO DIFF [HEME] Stat COMPREHENSIVE METABOLIC PN,CMP [CHEM] Stat DRUG SCREEN, URINE [URCHEM] Stat HCG QUALITATIVE,SERUM [CHEM] Stat INR,PT,PROTHROMBIN TIME [COAG] Stat UA W/O MICROSCOPIC [URIN] Stat Saline Lock Insert [OM.PC] Stat 11/30/16 11:06 Chest 1V Frontal [CR] Stat Sodium Chloride 0.9% [Normal Saline] 1,000 ml IV STAT Sodium Chloride 0.9% [Saline Flush] 10 ml FLUSH ASDIRECTED PRN Sodium Chloride 0.9% [Saline Flush] 2.5 ml FLUSH ASDIRECTED PRN 11/30/16 11:14 LIPASE [CHEM] Stat 11/30/16 11:15 Insulin Regular, Human [NovoLIN R] 100 unit Sodium Chloride 0.9% [Normal Saline] 99 ml IV TITRATE 11/30/16 11:30 Insulin Regular, Human [NovoLIN R] 100 unit Sodium Chloride 0.9% [Normal Saline] 99 ml IV TITRATE - Assessment/Plan Last 24 Hours: My Active Orders 11/30/16 11:03 Cardiac Monitoring [RC] . DIRECTED EKG Documentation Completion [RC] STAT CBC WITH AUTO DIFF [HEME] Stat COMPREHENSIVE METABOLIC PN,CMP [CHEM] Stat DRUG SCREEN, URINE [URCHEM] Stat HCG QUALITATIVE,SERUM [CHEM] Stat INR,PT,PROTHROMBIN TIME [COAG] Stat UA W/O MICROSCOPIC [URIN] Stat Saline Lock Insert [OM.PC] Stat 11/30/16 11:06 Chest 1V Frontal [CR] Stat Sodium Chloride 0.9% [Normal Saline] 1,000 ml IV STAT Sodium Chloride 0.9% [Saline Flush] 10 ml FLUSH ASDIRECTED PRN Sodium Chloride 0.9% [Saline Flush] 2.5 ml FLUSH ASDIRECTED PRN 11/30/16 11:14 LIPASE [CHEM] Stat 11/30/16 11:15 Insulin Regular, Human [NovoLIN R] 100 unit Sodium Chloride 0.9% [Normal Saline] 99 ml IV TITRATE 11/30/16 11:30 Insulin Regular, Human [NovoLIN R] 100 unit Sodium Chloride 0.9% [Normal Saline] 99 ml IV TITRATE
[2016-11-30] MEDS ORDERED: Sodium Chloride 0.9% 1,000 ML IV SCH (13:00)
--- NOTE | 2016-11-30 13:07 | PCM.SN ---
- Free Text/Narrative Note: Called by ADVERTISING ACCOUNT MANAGER for PIV start as they have been unable to obtain IV access. This pt is well known to me, as I have placed multiple IV's on her. I explained to the pt that jugular access will be the best IV access at this time for initial care and that a CVL or PICC line would be need in the next 24 hours. Pt understands and wishes to proceed. Pt was placed supine. Rt neck was prepped with chlor-prep swaps. External jugular vein was visualized. 18g IV catheter was then introduced into the vein. Due to the patients significant dehydration no blood return was noted but the catheter threaded with ease. I was able to aspirated dark red blood without any difficultly and IV flushes easily as well. IV was secured with tegaderm and tape. Pt tolerated placement quite well.
--- NOTE | 2016-11-30 13:13 | CR ---
EXAM DATE: 11/30/16 PATIENT'S AGE: 26 Patient: ALEXSANDER DUMONT Facility: [place], [place] Site . Site : 1990 Study: XRay Chest [id number] 12:44:43 PM Ordering Physician: Marissa Baeza Final Report: INDICATION: Shortness of breath. Diabetic ketoacidosis. Technique: Single-view chest. Comparison: Chest x-ray 10/08/2016. Findings: Lungs clear without infiltrate. Heart size normal. Right central line has been removed. Chest otherwise negative without acute disease. Dictated by Grzegorz Garcia MD @ Nov 30 2016 1:09PM (Electronic Signature) Report Signed by Proxy. VALERIO
[2016-11-30] MEDS ORDERED: NS + KCl 20mEq/L 1,000 ML IV SCH (14:15)
--- NOTE | 2016-11-30 14:50 | PCM.HP ---
H&P History of Present Illness - General Date of Service: 11/30/16 Admit Problem/Dx: diabetic ketoacidosis Source of Information: Patient History Limitations: Reports: No Limitations - History of Present Illness Initial Comments - Free Text/Narative: The patient is a 26-year-old lady who was discharged on November 28, 2016 after episode of hypoglycemia. The patient had presented to the emergency department on November 29, 2016 a concern for pain and wanting narcotic pain medications. The patient left AGAINST MEDICAL ADVICE. Patient presents today in diabetic ketoacidosis. She has been admitted from the emergency department to ICU. The patient says that she has been compliant with her insulin and she does not know what triggered her diabetic ketoacidosis today. The patient says that she still has considerable pain in her abdomen in spite of comprehensive negative workups on multiple occasions. Patient said that she had started with nausea vomiting this morning and she has denied any fever or chills. She's had no specific aggravating or relieving factors. Patient has been given multiple prescriptions for free insulin and has had multiple diabetic education resources offered. The patient has a history of noncompliance as well as possible manipulative behavior secondary to her diabetes management. The patient thus far has been unable or unwilling to care for herself. Patient has a previous psychiatric evaluation but the results of this are not available. While in the emergency department the patient had an external jugular venous access placed as she does have poor venous system. The patient was noted to have a bicarbonate of 6 and a pH of 7.2. The patient has been admitted as an inpatient to ICU and electronic ICU monitoring has been engaged. Onset of Symptoms: Reports: Gradual Duration of Symptoms: Reports: Hour(s):, Getting Worse Improves with: Reports: None Worsens with: Reports: None Associated Symptoms: Reports: Nausea/Vomiting abdomen Pain Score (Numeric/FACES): 7 - Related Data Allergies/Adverse Reactions: Allergies Allergy/AdvReac Type Severity Reaction Status Date / Time acetaminophen [From Tylenol] Allergy Liver Verified 11/30/16 10:58 Problems amoxicillin Allergy Hives Verified 11/30/16 10:58 amoxicillin trihydrate Allergy Hives Verified 11/30/16 10:58 [From Amoxil] ibuprofen Allergy Liver Verified 11/30/16 10:58 Problems ketorolac tromethamine Allergy Hives Verified 11/30/16 10:58 [From Toradol] metoclopramide HCl Allergy Airway Verified 11/30/16 10:58 [From Reglan] Tightness tramadol Allergy Hives Verified 11/30/16 10:58 Home Medications: Home Meds Insulin Detemir [Levemir] 15 unit SUBCUT BID 03/24/16 [History] LORazepam [Ativan] 0.5 mg PO BID PRN 03/24/16 [History] Ondansetron [Ondansetron ODT] 8 mg PO QID PRN 04/19/16 [History] Insulin Aspart [Novolog Flexpen] 16 - 20 unit SUBCUT QIDACANDBED 05/15/16 [ History] Promethazine HCl 25 mg PO Q6H PRN 08/24/16 [History] Morphine [MS Contin] 60 mg PO Q12H MDD 240 mg 10/07/16 [History] oxyCODONE 5 mg PO Q4H PRN #7 tablet 11/28/16 [Rx] Morphine 30 mg PO QID 11/30/16 [History] Past Medical History - Past Health History Medical/Surgical History: Denies Medical/Surgical History HEENT History: Reports: Allergic Rhinitis Other HEENT History: dental abcess Cardiovascular History: Reports: None Respiratory History: Reports: Asthma Gastrointestinal History: Reports: GI Bleed, Hepatitis, PUD, Other (See Below) Other Gastrointestinal History: hx of C-diff, hx of Hepatitis B Genitourinary History: Reports: UTI, Recurrent Other Genitourinary History: current UTI [employer] History: Reports: Other (See Below) Other OB/BYN History: had miscarriage twice Musculoskeletal History: Reports: Back Pain, Chronic, Other (See Below) Neurological History: Reports: Migraines, Seizure 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, last on was 4 months ago Psychiatric History: Reports: Anxiety, Depression Endocrine/Metabolic History: Reports: Diabetes, Type I Hematologic History: Reports: Anemia, Blood Transfusion(s) Immunologic History: Reports: None Oncologic (Cancer) History: Reports: None Dermatologic History: Reports: Other (See Below) Other Dermatologic History: possible infection from port removal R upper chest - Infectious Disease History Infectious Disease History: Reports: C-Difficile, Chicken Pox, Hepatitis B, Influenza - Past Surgical History Head Surgeries/Procedures: Reports: None HEENT Surgical History: Reports: Tonsillectomy Cardiovascular Surgical History: Reports: None Respiratory Surgical History: Reports: None GI Surgical History: Reports: Appendectomy, Cholecystectomy, ERCP Female Surgical History: Reports: None Endocrine Surgical History: Reports: None Neurological Surgical History: Reports: None Musculoskeletal Surgical History: Reports: None Oncologic Surgical History: Reports: None Dermatological Surgical History: Reports: None - History Comment History Comment: She has had over [address] scans in the last 4 years. Social & Family History - Family History Family Medical History: Noncontributory HEENT: Reports: Impaired Vision Cardiac: Reports: Heart Failure Respiratory: Reports: Asthma GI: Reports: None : Reports: Renal Disease/Insufficiency OBGYN: Reports: Musculoskeletal: Reports: Back pain, Chronic Neurological: Reports: Seizure Psychiatric: Reports: None Endocrine/Metabolic: Reports: Diabetes, Type I Hematologic: Reports: None Immunologic: Reports: None Dermatologic: Reports: None Oncologic: Reports: Breast, Cervix - Tobacco Use Smoking Status *Q: Never Smoker Years of Tobacco use: 4 Packs/Tins Daily: 1 Used Tobacco, but Quit: Yes Month Tobacco Last Used: 8 months ago Second Hand Smoke Exposure: Yes - Caffeine Use Caffeine Use: Reports: Soda - Alcohol Use Days Per Week of Alcohol Use: 0 - Recreational Drug Use Recreational Drug Use: No Drug Use in Last 12 Months: Yes Recreational Drug Type: Reports: Other (see below) Other Recreational Drug Type: patient verbalized she took oxymorphone prior to admission Recreational Drug Use Frequency: Patient Refuses To Answer - Living Situation & Occupation Living situation: Reports: with Significant Other, with Family, Other Occupation: Unemployed H&P Review of Systems - Review of Systems: Review Of Systems: See Below General: Reports: Weakness, Decreased Appetite HEENT: Reports: No Symptoms Pulmonary: Reports: No Symptoms Cardiovascular: Reports: No Symptoms Gastrointestinal: Reports: Abdominal Pain, Nausea, Vomiting Genitourinary: Reports: No Symptoms Musculoskeletal: Reports: No Symptoms Skin: Reports: No Symptoms Psychiatric: Reports: No Symptoms Neurological: Reports: No Symptoms Hematologic/Lymphatic: Reports: No Symptoms Immunologic: Reports: No Symptoms Exam - Exam Exam: See Below - Vital Signs Vital Signs: Last Vital Signs Temp 36.9 C 11/30/16 10:58 Pulse 112 H 11/30/16 13:26 Resp 18 11/30/16 10:58 BP 142/99 H 11/30/16 13:26 Pulse Ox 95 11/30/16 13:26 Weight: 44.18 kg - Exam Quality Assessment: No: Supplemental Oxygen General: Alert, Oriented, Cooperative, Mild Distress HEENT: Conjunctiva Clear, Nares Patent. No: Mucosa Moist & [place] (oral mucosa dry) Neck: Supple Lungs: Clear to Auscultation. No: Normal Respiratory Effort (tachypneic) Cardiovascular: Tachycardia Abdomen: Normal Bowel Sounds, Tenderness (chronic). No: Distention, Guarding Back Exam: Decreased Range of Motion Extremities: Normal Inspection Skin: Warm, Dry Neuro Extensive - Mental Status: Alert, Oriented x3 Neuro Extensive - Motor, Sensory, Reflexes: CN II-XII Intact Psychiatric: Alert, Anxious, Depressed. No: Normal Affect - Patient Data Lab Results last 24 hrs: Laboratory Results - last 24 hr 11/30/16 11/30/16 Range/Units 13:22 14:25 POC Glucose 419 H 259 H (60-110) mg/dL Result Diagrams: 12/01/16 04:14 12/01/16 04:14 *Q Meaningful Use (ADM) - VTE *Q VTE Criteria *Q: - Stroke *Q Stroke Criteria *Q: - AMI *Q AMI Criteria *Q: - Problem List (1) Diabetic ketoacidosis SNOMED Code(s): 114980294, 533500548 ICD Code: E13.10 - OTH DIABETES MELLITUS WITH KETOACIDOSIS WITHOUT COMA Status: Acute Priority: High Current Visit: Yes Qualifiers: Diabetes mellitus type: type 1 Diabetes mellitus complication detail: without coma Qualified Code(s): E10.10 - Type 1 diabetes mellitus with ketoacidosis without coma (2) Substance abuse SNOMED Code(s): 78160920 ICD Code: F19.10 - OTHER PSYCHOACTIVE SUBSTANCE ABUSE, UNCOMPLICATED Status : Chronic Priority: High Current Visit: Yes (3) Chronic abdominal pain SNOMED Code(s): 835484016 ICD Code: R10.9 - UNSPECIFIED ABDOMINAL PAIN; G89.29 - OTHER CHRONIC PAIN Status: Chronic Priority: Medium Current Visit: No (4) Hyperglycemia due to type 1 diabetes mellitus SNOMED Code(s): 481439734900495, 669836337089538 ICD Code: E10.65 - TYPE 1 DIABETES MELLITUS WITH HYPERGLYCEMIA Status: Chronic Priority: High Current Visit: No Problem List Initiated/Reviewed/Updated: Yes Orders Last 24hrs: Active Orders 24 hr Category Date Time Status ABG [BLOOD GAS ARTERIAL] [BG] Timed Lab 11/30/16 18:00 Ordered BMP [BASIC METABOLIC PANEL,BMP] [CHEM] Q4 Lab 11/30/16 16:00 Ordered BMP [BASIC METABOLIC PANEL,BMP] [CHEM] Q4 Lab 11/30/16 20:00 Ordered BMP [BASIC METABOLIC PANEL,BMP] [CHEM] Q4 Lab 12/01/16 00:00 Ordered BMP [BASIC METABOLIC PANEL,BMP] [CHEM] Q4 Lab 12/01/16 04:00 Ordered BMP [BASIC METABOLIC PANEL,BMP] [CHEM] Q4 Lab 12/01/16 08:00 Ordered BMP [BASIC METABOLIC PANEL,BMP] [CHEM] Q4 Lab 12/01/16 12:00 Ordered BMP [BASIC METABOLIC PANEL,BMP] [CHEM] Q4 Lab 12/01/16 16:00 Ordered BMP [BASIC METABOLIC PANEL,BMP] [CHEM] Q4 Lab 12/01/16 20:00 Ordered DRUG SCREEN, SERUM REFLEX [REF] Stat Lab 11/30/16 14:11 Ordered KETONES,URINE [URIN] Routine Lab 11/30/16 14:25 Uncollected MAGNESIUM [CHEM] Q4 Lab 11/30/16 16:00 Ordered MAGNESIUM [CHEM] Q4 Lab 11/30/16 20:00 Ordered MAGNESIUM [CHEM] Q4 Lab 12/01/16 00:00 Ordered MAGNESIUM [CHEM] Q4 Lab 12/01/16 04:00 Ordered MAGNESIUM [CHEM] Q4 Lab 12/01/16 08:00 Ordered MAGNESIUM [CHEM] Q4 Lab 12/01/16 12:00 Ordered MAGNESIUM [CHEM] Q4 Lab 12/01/16 16:00 Ordered MAGNESIUM [CHEM] Q4 Lab 12/01/16 20:00 Ordered PHOSPHORUS [CHEM] Q4 Lab 11/30/16 16:00 Ordered PHOSPHORUS [CHEM] Q4 Lab 11/30/16 20:00 Ordered PHOSPHORUS [CHEM] Q4 Lab 12/01/16 00:00 Ordered PHOSPHORUS [CHEM] Q4 Lab 12/01/16 04:00 Ordered PHOSPHORUS [CHEM] Q4 Lab 12/01/16 08:00 Ordered PHOSPHORUS [CHEM] Q4 Lab 12/01/16 12:00 Ordered PHOSPHORUS [CHEM] Q4H Lab 12/01/16 16:00 Ordered PHOSPHORUS [CHEM] Q4H Lab 12/01/16 20:00 Ordered NS + KCl 20mEq/L [Normal Saline with 20 mEq KCl] 1,000 Med 11/30/16 14:15 Active ml IV ASDIRECTED Sodium Chloride 0.9% [Normal Saline] 1,000 ml Med 11/30/16 14:14 Active IV .Bolus oxyCODONE Med 11/30/16 14:30 Active 5 mg PO Q4H Medication Orders Insulin Human Regular 100 unit (/ Sodium Chloride) 100 mls @ 4.4 mls/hr IV TITRATE PIPPA; 4.4 UNIT/HR PRN Reason: Protocol Last Titration: 11/30/16 14:30 Dose: 3 unit/hr, 3 mls/hr Admin: 11/30/16 11:39 Dose: 4.4 unit/hr, 4.4 mls/hr Sodium Chloride (Normal Saline) 1,000 mls @ 250 mls/hr IV ASDIRECTED PIPPA Sodium Chloride (Normal Saline) 1,000 mls @ 999 mls/hr IV .Bolus ONE Stop: 11/30/16 15:14 Potassium Chloride/Sodium Chloride (Normal Saline With 20 Meq Kcl) 1,000 mls @ 250 mls/hr IV ASDIRECTED PIPPA Nicotine (Habitrol) 14 mg TRDERM DAILY PIPPA Oxycodone HCl (Oxycodone) 5 mg PO Q4H PIPPA Sodium Chloride (Saline Flush) 10 ml FLUSH ASDIRECTED PRN PRN Reason: Keep Vein Open Sodium Chloride (Saline Flush) 2.5 ml FLUSH ASDIRECTED PRN PRN Reason: Keep Vein Open Assessment/Plan Comment:: Nov 30, 2016: The patient has presented in diabetic ketoacidosis. The patient has been a diabetic ketoacidosis greater than 20 times over the past couple of years. Patient has exhibited a pattern of not being able to care for herself. The patient also has multiple ER visits and is well-known to the hospital and ER staff for complications with her diabetes such as diabetic ketoacidosis and extreme hyperglycemia. The patient also has chronic abdominal pain which is been treated by narcotics. The patient also has been given on multiple occasions free insulin to help control her diabetes. Today the patient says that she took her insulin this morning but by the afternoon had been in diabetic ketoacidosis with markedly elevated blood sugars. The patient will be placed in ICU for electronic ICU monitoring for the treatment of diabetic ketoacidosis. I feel that the patient does have underlying psychiatric issues which may be contributing to her self care deficits. In the past the patient has been referred to psychiatry but the family has refused this and says that she is "normal". I have expressed my concern both to the patient and the family that the self-care deficits than likely lead to the patient's self-destruction. She is not overtly suicidal but, I believe that the patient may be manipulating her diabetes for secondary gain. For now, the patient will be treated for diabetic ketoacidosis with insulin drip, basic metabolic panel monitoring to ensure closure of anion gap and resolution of the acidosis. I will follow electronic ICU monitoring and the patient's treatment plan will be adjusted as information indicates.
[2016-11-30] MEDS: oxyCODONE 5 MG Tab PO SCH ×3 (15:01→23:30)
[2016-11-30] MEDS: Ondansetron 4 MG/2 ML SDV IVPUSH PRN (15:54)
[2016-11-30 16:38] LABS: CHLORIDE,CL 112 mmol/L (98-110); SODIUM,NA 140 mmol/L (136-146)
[2016-11-30] MEDS: Dextrose 5%-0.45% NaCl 1,000 ML IV SCH ×2 (17:14→22:27)
[2016-11-30 20:27] LABS: CHLORIDE,CL 111 mmol/L (98-110); SODIUM,NA 135 mmol/L (136-146)
[2016-11-30] MEDS ORDERED: Magnesium Sulfate/Water 2 GM in Premix Bag 1 BAG IV ONE (20:51)
[2016-11-30] MEDS ORDERED: Potassium Phosphates 3 mMole/ML 15 ML SDV IV STA (20:52)
[2016-11-30] MEDS ORDERED: diphenhydrAMINE 50 MG/ML SDV IVPUSH PRN (20:53)
[2016-11-30] MEDS: SODIUM CHLORIDE IV SCH ×2 (22:43→23:55)
[2016-11-30] MEDS: POTASSIUM PHOSPHATES IV SCH ×2 (22:43→23:55)
[2016-12-01 00:34] LABS: CHLORIDE,CL 114 mmol/L (98-110); SODIUM,NA 137 mmol/L (136-146)
[2016-12-01] MEDS: SODIUM CHLORIDE IV SCH ×2 (01:08→02:13)
[2016-12-01] MEDS: POTASSIUM PHOSPHATES IV SCH ×2 (01:08→02:13)
[2016-12-01] MEDS: oxyCODONE 5 MG Tab PO SCH ×6 (03:04→21:59)
[2016-12-01] MEDS: Ondansetron 4 MG/2 ML SDV IVPUSH PRN (03:05)
[2016-12-01] MEDS: Dextrose 5%-0.45% NaCl 1,000 ML IV SCH (03:23)
[2016-12-01 05:17] LABS: CHLORIDE,CL 112 mmol/L (98-110); SODIUM,NA 137 mmol/L (136-146)
[2016-12-01] MEDS: Pantoprazole 40 MG in Sodium Chloride 0.9% 10 ML IVPUSH SCH (06:24)
[2016-12-01] MEDS ORDERED: D5 1/2 NS w/ 20 mEq/L KCl 1,000 ML IV SCH (07:30)
[2016-12-01] MEDS: Nicotine 14 MG/24 Hr Patch TRDERM SCH (08:26)
[2016-12-01 08:57] LABS: CHLORIDE,CL 114 mmol/L (98-110); SODIUM,NA 139 mmol/L (136-146)
[2016-12-01] MEDS ORDERED: Insulin Detemir 100 Units/ML 3 ML Pen SUBCUT STA (10:32)
[2016-12-01] MEDS ORDERED: Potassium Chloride 20 MEQ Tab.ER PO ONE (10:40)
[2016-12-01] MEDS: Phosphorus #1 250 MG Tab PO SCH ×3 (11:08→23:28)
[2016-12-01] MEDS: Insulin Aspart 100 Units/ML 3 ML Pen SUBCUT SCH ×4 (11:11→20:29)
[2016-12-01 13:43] LABS: CHLORIDE,CL 113 mmol/L (98-110); SODIUM,NA 138 mmol/L (136-146)
--- NOTE | 2016-12-01 13:43 | PCM.PN ---
- General Info Date of Service: 12/01/16 Admission Dx/Problem (Free Text): diabetic ketoacidosis Functional Status: Reports: tolerating diet. Denies: pain controlled - Review of Systems General: Reports: Weakness, Fatigue HEENT: Reports: no symptoms Pulmonary: Reports: no symptoms Cardiovascular: Reports: No Symptoms Gastrointestinal: Reports: Abdominal pain (chronic) Genitourinary: Reports: no symptoms Musculoskeletal: Reports: no symptoms Skin: Reports: no symptoms Neurological: Reports: No Symptoms Psychiatric: Reports: depression - Patient Data Vitals - most recent: Last Vital Signs Temp 37.1 C 12/01/16 08:00 Pulse 112 H 11/30/16 13:26 Resp 20 12/01/16 13:00 BP 134/86 12/01/16 13:00 Pulse Ox 98 12/01/16 13:00 Weight - most recent: 44.18 kg I&O - last 24 hours: Intake & Output 11/30/16 12/01/16 12/01/16 22:59 06:59 14:59 Intake Total 2328 1270 1000 Output Total 1000 2600 Balance 1328 -1330 1000 Lab Results last 24 hrs: Laboratory Results - last 24 hr 11/30/16 11/30/16 11/30/16 Range/Units 14:25 15:08 16:00 WBC (4.0-11.0) K/uL RBC (4.30-5.90) M/uL Hgb (12.0-16.0) g/dL Hct (36.0-46.0) % MCV (80.0-98.0) fL MCH (27.0-32.0) pg MCHC (31.0-37.0) g/dL RDW Std Deviation (28.0-62.0) fl RDW Coeff of Zak (11.0-15.0) % Plt Count (150-400) K/uL MPV (7.40-12.00) fL Neut % (Auto) (48.0-80.0) % Lymph % (Auto) (16.0-40.0) % [place] % (Auto) (0.0-15.0) % Eos % (Auto) (0.0-7.0) % Baso % (Auto) (0.0-1.5) % Neut # (Auto) (1.4-5.7) K/uL Lymph # (Auto) (0.6-2.4) K/uL [place] # (Auto) (0.0-0.8) K/uL Eos # (Auto) (0.0-0.7) K/uL Baso # (Auto) (0.0-0.1) K/uL Nucleated RBC % /100WBC Nucleated RBCs # K/uL ABG pH (7.35-7.45) ABG pCO2 (35-45) mmHG ABG pO2 (75-100) mmHG ABG HCO3 (22-26) mEq/L ABG Total CO2 ABG Base Excess (-2.0-2.0) Sodium (136-146) mmol/L Potassium (3.5-5.1) mmol/L Chloride (98-110) mmol/L Carbon Dioxide (21-31) mmol/L BUN (6.0-23.0) mg/dL Creatinine (0.6-1.5) mg/dL Est Cr Clr Drug Dosing mL/min Estimated GFR (MDRD) ml/min Glucose (60-110) mg/dL POC Glucose 259 H 197 H (60-110) mg/dL Calcium (8.8-10.8) mg/dL Phosphorus (2.4-4.7) mg/dL Magnesium (1.5-2.3) mEq/L Urine Color Urine Appearance Urine pH (5.0-8.0) Ur Specific [place] (1.001-1.035) Urine Protein (NEGATIVE) mg/dL Urine Glucose (UA) (NEGATIVE) mg/dL Urine Ketones (NEGATIVE) mg/dL Urine Occult Blood (NEGATIVE) Urine Nitrite (NEGATIVE) Urine Bilirubin (NEGATIVE) Urine Ictotest Urine Urobilinogen (<2.0) EU/dL Ur Leukocyte Esterase (NEGATIVE) Urine Opiates Screen NEGATIVE (NEGATIVE) Ur Oxycodone Screen POSITIVE (NEGATIVE) Urine Methadone Screen NEGATIVE (NEGATIVE) Ur Barbiturates Screen NEGATIVE (NEGATIVE) Ur Phencyclidine Scrn NEGATIVE (NEGATIVE) Ur Amphetamine Screen NEGATIVE (NEGATIVE) U Methamphetamines Scrn NEGATIVE (NEGATIVE) U Benzodiazepines Scrn NEGATIVE (NEGATIVE) U Cocaine Metab Screen NEGATIVE (NEGATIVE) U Marijuana (THC) Screen NEGATIVE (NEGATIVE) 11/30/16 11/30/16 11/30/16 Range/Units 16:00 16:00 16:11 WBC (4.0-11.0) K/uL RBC (4.30-5.90) M/uL Hgb (12.0-16.0) g/dL Hct (36.0-46.0) % MCV (80.0-98.0) fL MCH (27.0-32.0) pg MCHC (31.0-37.0) g/dL RDW Std Deviation (28.0-62.0) fl RDW Coeff of Zak (11.0-15.0) % Plt Count (150-400) K/uL MPV (7.40-12.00) fL Neut % (Auto) (48.0-80.0) % Lymph % (Auto) (16.0-40.0) % [place] % (Auto) (0.0-15.0) % Eos % (Auto) (0.0-7.0) % Baso % (Auto) (0.0-1.5) % Neut # (Auto) (1.4-5.7) K/uL Lymph # (Auto) (0.6-2.4) K/uL [place] # (Auto) (0.0-0.8) K/uL Eos # (Auto) (0.0-0.7) K/uL Baso # (Auto) (0.0-0.1) K/uL Nucleated RBC % /100WBC Nucleated RBCs # K/uL ABG pH (7.35-7.45) ABG pCO2 (35-45) mmHG ABG pO2 (75-100) mmHG ABG HCO3 (22-26) mEq/L ABG Total CO2 ABG Base Excess (-2.0-2.0) Sodium 140 (136-146) mmol/L Potassium 3.5 (3.5-5.1) mmol/L Chloride 112 H (98-110) mmol/L Carbon Dioxide 8 L (21-31) mmol/L BUN 10 (6.0-23.0) mg/dL Creatinine 0.9 (0.6-1.5) mg/dL Est Cr Clr Drug Dosing 65.49 mL/min Estimated GFR (MDRD) > 60.0 ml/min Glucose 127 H (60-110) mg/dL POC Glucose (60-110) mg/dL Calcium 8.4 L (8.8-10.8) mg/dL Phosphorus 1.4 L (2.4-4.7) mg/dL Magnesium 1.5 (1.5-2.3) mEq/L Urine Color YELLOW Urine Appearance CLEAR Urine pH 5.5 (5.0-8.0) Ur Specific [place] 1.020 (1.001-1.035) Urine Protein NEGATIVE (NEGATIVE) mg/dL Urine Glucose (UA) 500 H (NEGATIVE) mg/dL Urine Ketones >=80 LARGE H (NEGATIVE) mg/dL Urine Occult Blood TRACE-LYSED (NEGATIVE) Urine Nitrite NEGATIVE (NEGATIVE) Urine Bilirubin SMALL H (NEGATIVE) Urine Ictotest NEGATIVE Urine Urobilinogen 0.2 (<2.0) EU/dL Ur Leukocyte Esterase NEGATIVE (NEGATIVE) Urine Opiates Screen (NEGATIVE) Ur Oxycodone Screen (NEGATIVE) Urine Methadone Screen (NEGATIVE) Ur Barbiturates Screen (NEGATIVE) Ur Phencyclidine Scrn (NEGATIVE) Ur Amphetamine Screen (NEGATIVE) U Methamphetamines Scrn (NEGATIVE) U Benzodiazepines Scrn (NEGATIVE) U Cocaine Metab Screen (NEGATIVE) U Marijuana (THC) Screen (NEGATIVE) 11/30/16 11/30/16 11/30/16 Range/Units 16:15 17:19 18:13 WBC (4.0-11.0) K/uL RBC (4.30-5.90) M/uL Hgb (12.0-16.0) g/dL Hct (36.0-46.0) % MCV (80.0-98.0) fL MCH (27.0-32.0) pg MCHC (31.0-37.0) g/dL RDW Std Deviation (28.0-62.0) fl RDW Coeff of Zak (11.0-15.0) % Plt Count (150-400) K/uL MPV (7.40-12.00) fL Neut % (Auto) (48.0-80.0) % Lymph % (Auto) (16.0-40.0) % [place] % (Auto) (0.0-15.0) % Eos % (Auto) (0.0-7.0) % Baso % (Auto) (0.0-1.5) % Neut # (Auto) (1.4-5.7) K/uL Lymph # (Auto) (0.6-2.4) K/uL [place] # (Auto) (0.0-0.8) K/uL Eos # (Auto) (0.0-0.7) K/uL Baso # (Auto) (0.0-0.1) K/uL Nucleated RBC % /100WBC Nucleated RBCs # K/uL ABG pH (7.35-7.45) ABG pCO2 (35-45) mmHG ABG pO2 (75-100) mmHG ABG HCO3 (22-26) mEq/L ABG Total CO2 ABG Base Excess (-2.0-2.0) Sodium (136-146) mmol/L Potassium (3.5-5.1) mmol/L Chloride (98-110) mmol/L Carbon Dioxide (21-31) mmol/L BUN (6.0-23.0) mg/dL Creatinine (0.6-1.5) mg/dL Est Cr Clr Drug Dosing mL/min Estimated GFR (MDRD) ml/min Glucose (60-110) mg/dL POC Glucose 128 H 101 158 H (60-110) mg/dL Calcium (8.8-10.8) mg/dL Phosphorus (2.4-4.7) mg/dL Magnesium (1.5-2.3) mEq/L Urine Color Urine Appearance Urine pH (5.0-8.0) Ur Specific [place] (1.001-1.035) Urine Protein (NEGATIVE) mg/dL Urine Glucose (UA) (NEGATIVE) mg/dL Urine Ketones (NEGATIVE) mg/dL Urine Occult Blood (NEGATIVE) Urine Nitrite (NEGATIVE) Urine Bilirubin (NEGATIVE) Urine Ictotest Urine Urobilinogen (<2.0) EU/dL Ur Leukocyte Esterase (NEGATIVE) Urine Opiates Screen (NEGATIVE) Ur Oxycodone Screen (NEGATIVE) Urine Methadone Screen (NEGATIVE) Ur Barbiturates Screen (NEGATIVE) Ur Phencyclidine Scrn (NEGATIVE) Ur Amphetamine Screen (NEGATIVE) U Methamphetamines Scrn (NEGATIVE) U Benzodiazepines Scrn (NEGATIVE) U Cocaine Metab Screen (NEGATIVE) U Marijuana (THC) Screen (NEGATIVE) 11/30/16 11/30/16 11/30/16 Range/Units 18:35 19:07 19:57 WBC (4.0-11.0) K/uL RBC (4.30-5.90) M/uL Hgb (12.0-16.0) g/dL Hct (36.0-46.0) % MCV (80.0-98.0) fL MCH (27.0-32.0) pg MCHC (31.0-37.0) g/dL RDW Std Deviation (28.0-62.0) fl RDW Coeff of Zak (11.0-15.0) % Plt Count (150-400) K/uL MPV (7.40-12.00) fL Neut % (Auto) (48.0-80.0) % Lymph % (Auto) (16.0-40.0) % [place] % (Auto) (0.0-15.0) % Eos % (Auto) (0.0-7.0) % Baso % (Auto) (0.0-1.5) % Neut # (Auto) (1.4-5.7) K/uL Lymph # (Auto) (0.6-2.4) K/uL [place] # (Auto) (0.0-0.8) K/uL Eos # (Auto) (0.0-0.7) K/uL Baso # (Auto) (0.0-0.1) K/uL Nucleated RBC % /100WBC Nucleated RBCs # K/uL ABG pH 7.301 L (7.35-7.45) ABG pCO2 16 L (35-45) mmHG ABG pO2 64 L (75-100) mmHG ABG HCO3 8 L (22-26) mEq/L ABG Total CO2 7.2 ABG Base Excess -17.0 L (-2.0-2.0) Sodium 135 L (136-146) mmol/L Potassium 3.6 (3.5-5.1) mmol/L Chloride 111 H (98-110) mmol/L Carbon Dioxide 8 L (21-31) mmol/L BUN 7 (6.0-23.0) mg/dL Creatinine 0.8 (0.6-1.5) mg/dL Est Cr Clr Drug Dosing 73.67 mL/min Estimated GFR (MDRD) > 60.0 ml/min Glucose 165 H (60-110) mg/dL POC Glucose 151 H (60-110) mg/dL Calcium 8.0 L (8.8-10.8) mg/dL Phosphorus 1.4 L (2.4-4.7) mg/dL Magnesium 1.3 L (1.5-2.3) mEq/L Urine Color Urine Appearance Urine pH (5.0-8.0) Ur Specific [place] (1.001-1.035) Urine Protein (NEGATIVE) mg/dL Urine Glucose (UA) (NEGATIVE) mg/dL Urine Ketones (NEGATIVE) mg/dL Urine Occult Blood (NEGATIVE) Urine Nitrite (NEGATIVE) Urine Bilirubin (NEGATIVE) Urine Ictotest Urine Urobilinogen (<2.0) EU/dL Ur Leukocyte Esterase (NEGATIVE) Urine Opiates Screen (NEGATIVE) Ur Oxycodone Screen (NEGATIVE) Urine Methadone Screen (NEGATIVE) Ur Barbiturates Screen (NEGATIVE) Ur Phencyclidine Scrn (NEGATIVE) Ur Amphetamine Screen (NEGATIVE) U Methamphetamines Scrn (NEGATIVE) U Benzodiazepines Scrn (NEGATIVE) U Cocaine Metab Screen (NEGATIVE) U Marijuana (THC) Screen (NEGATIVE) 11/30/16 11/30/16 11/30/16 Range/Units 20:36 21:58 22:48 WBC (4.0-11.0) K/uL RBC (4.30-5.90) M/uL Hgb (12.0-16.0) g/dL Hct (36.0-46.0) % MCV (80.0-98.0) fL MCH (27.0-32.0) pg MCHC (31.0-37.0) g/dL RDW Std Deviation (28.0-62.0) fl RDW Coeff of Zak (11.0-15.0) % Plt Count (150-400) K/uL MPV (7.40-12.00) fL Neut % (Auto) (48.0-80.0) % Lymph % (Auto) (16.0-40.0) % [place] % (Auto) (0.0-15.0) % Eos % (Auto) (0.0-7.0) % Baso % (Auto) (0.0-1.5) % Neut # (Auto) (1.4-5.7) K/uL Lymph # (Auto) (0.6-2.4) K/uL [place] # (Auto) (0.0-0.8) K/uL Eos # (Auto) (0.0-0.7) K/uL Baso # (Auto) (0.0-0.1) K/uL Nucleated RBC % /100WBC Nucleated RBCs # K/uL ABG pH (7.35-7.45) ABG pCO2 (35-45) mmHG ABG pO2 (75-100) mmHG ABG HCO3 (22-26) mEq/L ABG Total CO2 ABG Base Excess (-2.0-2.0) Sodium (136-146) mmol/L Potassium (3.5-5.1) mmol/L Chloride (98-110) mmol/L Carbon Dioxide (21-31) mmol/L BUN (6.0-23.0) mg/dL Creatinine (0.6-1.5) mg/dL Est Cr Clr Drug Dosing mL/min Estimated GFR (MDRD) ml/min Glucose (60-110) mg/dL POC Glucose 135 H 166 H 208 H (60-110) mg/dL Calcium (8.8-10.8) mg/dL Phosphorus (2.4-4.7) mg/dL Magnesium (1.5-2.3) mEq/L Urine Color Urine Appearance Urine pH (5.0-8.0) Ur Specific [place] (1.001-1.035) Urine Protein (NEGATIVE) mg/dL Urine Glucose (UA) (NEGATIVE) mg/dL Urine Ketones (NEGATIVE) mg/dL Urine Occult Blood (NEGATIVE) Urine Nitrite (NEGATIVE) Urine Bilirubin (NEGATIVE) Urine Ictotest Urine Urobilinogen (<2.0) EU/dL Ur Leukocyte Esterase (NEGATIVE) Urine Opiates Screen (NEGATIVE) Ur Oxycodone Screen (NEGATIVE) Urine Methadone Screen (NEGATIVE) Ur Barbiturates Screen (NEGATIVE) Ur Phencyclidine Scrn (NEGATIVE) Ur Amphetamine Screen (NEGATIVE) U Methamphetamines Scrn (NEGATIVE) U Benzodiazepines Scrn (NEGATIVE) U Cocaine Metab Screen (NEGATIVE) U Marijuana (THC) Screen (NEGATIVE) 11/30/16 11/30/16 12/01/16 Range/Units 23:33 23:51 00:00 WBC (4.0-11.0) K/uL RBC (4.30-5.90) M/uL Hgb (12.0-16.0) g/dL Hct (36.0-46.0) % MCV (80.0-98.0) fL MCH (27.0-32.0) pg MCHC (31.0-37.0) g/dL RDW Std Deviation (28.0-62.0) fl RDW Coeff of Zak (11.0-15.0) % Plt Count (150-400) K/uL MPV (7.40-12.00) fL Neut % (Auto) (48.0-80.0) % Lymph % (Auto) (16.0-40.0) % [place] % (Auto) (0.0-15.0) % Eos % (Auto) (0.0-7.0) % Baso % (Auto) (0.0-1.5) % Neut # (Auto) (1.4-5.7) K/uL Lymph # (Auto) (0.6-2.4) K/uL [place] # (Auto) (0.0-0.8) K/uL Eos # (Auto) (0.0-0.7) K/uL Baso # (Auto) (0.0-0.1) K/uL Nucleated RBC % /100WBC Nucleated RBCs # K/uL ABG pH (7.35-7.45) ABG pCO2 (35-45) mmHG ABG pO2 (75-100) mmHG ABG HCO3 (22-26) mEq/L ABG Total CO2 ABG Base Excess (-2.0-2.0) Sodium 137 (136-146) mmol/L Potassium 3.3 L (3.5-5.1) mmol/L Chloride 114 H (98-110) mmol/L Carbon Dioxide 10 L (21-31) mmol/L BUN 6 (6.0-23.0) mg/dL Creatinine 0.8 (0.6-1.5) mg/dL Est Cr Clr Drug Dosing 73.67 mL/min Estimated GFR (MDRD) > 60.0 ml/min Glucose 204 H (60-110) mg/dL POC Glucose 206 H 174 H (60-110) mg/dL Calcium 7.5 L (8.8-10.8) mg/dL Phosphorus 2.7 (2.4-4.7) mg/dL Magnesium 2.2 (1.5-2.3) mEq/L Urine Color Urine Appearance Urine pH (5.0-8.0) Ur Specific [place] (1.001-1.035) Urine Protein (NEGATIVE) mg/dL Urine Glucose (UA) (NEGATIVE) mg/dL Urine Ketones (NEGATIVE) mg/dL Urine Occult Blood (NEGATIVE) Urine Nitrite (NEGATIVE) Urine Bilirubin (NEGATIVE) Urine Ictotest Urine Urobilinogen (<2.0) EU/dL Ur Leukocyte Esterase (NEGATIVE) Urine Opiates Screen (NEGATIVE) Ur Oxycodone Screen (NEGATIVE) Urine Methadone Screen (NEGATIVE) Ur Barbiturates Screen (NEGATIVE) Ur Phencyclidine Scrn (NEGATIVE) Ur Amphetamine Screen (NEGATIVE) U Methamphetamines Scrn (NEGATIVE) U Benzodiazepines Scrn (NEGATIVE) U Cocaine Metab Screen (NEGATIVE) U Marijuana (THC) Screen (NEGATIVE) 12/01/16 12/01/16 12/01/16 Range/Units 01:11 02:10 03:00 WBC (4.0-11.0) K/uL RBC (4.30-5.90) M/uL Hgb (12.0-16.0) g/dL Hct (36.0-46.0) % MCV (80.0-98.0) fL MCH (27.0-32.0) pg MCHC (31.0-37.0) g/dL RDW Std Deviation (28.0-62.0) fl RDW Coeff of Zak (11.0-15.0) % Plt Count (150-400) K/uL MPV (7.40-12.00) fL Neut % (Auto) (48.0-80.0) % Lymph % (Auto) (16.0-40.0) % [place] % (Auto) (0.0-15.0) % Eos % (Auto) (0.0-7.0) % Baso % (Auto) (0.0-1.5) % Neut # (Auto) (1.4-5.7) K/uL Lymph # (Auto) (0.6-2.4) K/uL [place] # (Auto) (0.0-0.8) K/uL Eos # (Auto) (0.0-0.7) K/uL Baso # (Auto) (0.0-0.1) K/uL Nucleated RBC % /100WBC Nucleated RBCs # K/uL ABG pH (7.35-7.45) ABG pCO2 (35-45) mmHG ABG pO2 (75-100) mmHG ABG HCO3 (22-26) mEq/L ABG Total CO2 ABG Base Excess (-2.0-2.0) Sodium (136-146) mmol/L Potassium (3.5-5.1) mmol/L Chloride (98-110) mmol/L Carbon Dioxide (21-31) mmol/L BUN (6.0-23.0) mg/dL Creatinine (0.6-1.5) mg/dL Est Cr Clr Drug Dosing mL/min Estimated GFR (MDRD) ml/min Glucose (60-110) mg/dL POC Glucose 158 H 147 H 163 H (60-110) mg/dL Calcium (8.8-10.8) mg/dL Phosphorus (2.4-4.7) mg/dL Magnesium (1.5-2.3) mEq/L Urine Color Urine Appearance Urine pH (5.0-8.0) Ur Specific [place] (1.001-1.035) Urine Protein (NEGATIVE) mg/dL Urine Glucose (UA) (NEGATIVE) mg/dL Urine Ketones (NEGATIVE) mg/dL Urine Occult Blood (NEGATIVE) Urine Nitrite (NEGATIVE) Urine Bilirubin (NEGATIVE) Urine Ictotest Urine Urobilinogen (<2.0) EU/dL Ur Leukocyte Esterase (NEGATIVE) Urine Opiates Screen (NEGATIVE) Ur Oxycodone Screen (NEGATIVE) Urine Methadone Screen (NEGATIVE) Ur Barbiturates Screen (NEGATIVE) Ur Phencyclidine Scrn (NEGATIVE) Ur Amphetamine Screen (NEGATIVE) U Methamphetamines Scrn (NEGATIVE) U Benzodiazepines Scrn (NEGATIVE) U Cocaine Metab Screen (NEGATIVE) U Marijuana (THC) Screen (NEGATIVE) 12/01/16 12/01/16 12/01/16 Range/Units 04:05 04:14 04:14 WBC 6.45 (4.0-11.0) K/uL RBC 4.08 L (4.30-5.90) M/uL Hgb 11.3 L (12.0-16.0) g/dL Hct 35.9 L (36.0-46.0) % MCV 88.0 (80.0-98.0) fL MCH 27.7 (27.0-32.0) pg MCHC 31.5 (31.0-37.0) g/dL RDW Std Deviation 49.4 (28.0-62.0) fl RDW Coeff of Zak 16 H (11.0-15.0) % Plt Count 324 (150-400) K/uL MPV 9.40 (7.40-12.00) fL Neut % (Auto) 45.4 L (48.0-80.0) % Lymph % (Auto) 47.1 H (16.0-40.0) % [place] % (Auto) 5.0 (0.0-15.0) % Eos % (Auto) 2.0 (0.0-7.0) % Baso % (Auto) 0.5 (0.0-1.5) % Neut # (Auto) 2.9 (1.4-5.7) K/uL Lymph # (Auto) 3.0 H (0.6-2.4) K/uL [place] # (Auto) 0.3 (0.0-0.8) K/uL Eos # (Auto) 0.1 (0.0-0.7) K/uL Baso # (Auto) 0.0 (0.0-0.1) K/uL Nucleated RBC % 0.0 /100WBC Nucleated RBCs # 0 K/uL ABG pH (7.35-7.45) ABG pCO2 (35-45) mmHG ABG pO2 (75-100) mmHG ABG HCO3 (22-26) mEq/L ABG Total CO2 ABG Base Excess (-2.0-2.0) Sodium 137 (136-146) mmol/L Potassium 3.4 L (3.5-5.1) mmol/L Chloride 112 H (98-110) mmol/L Carbon Dioxide 14 L (21-31) mmol/L BUN 4 L (6.0-23.0) mg/dL Creatinine 0.7 (0.6-1.5) mg/dL Est Cr Clr Drug Dosing 85.76 mL/min Estimated GFR (MDRD) > 60.0 ml/min Glucose 148 H (60-110) mg/dL POC Glucose 142 H (60-110) mg/dL Calcium 7.5 L (8.8-10.8) mg/dL Phosphorus 3.2 (2.4-4.7) mg/dL Magnesium 1.7 (1.5-2.3) mEq/L Urine Color Urine Appearance Urine pH (5.0-8.0) Ur Specific [place] (1.001-1.035) Urine Protein (NEGATIVE) mg/dL Urine Glucose (UA) (NEGATIVE) mg/dL Urine Ketones (NEGATIVE) mg/dL Urine Occult Blood (NEGATIVE) Urine Nitrite (NEGATIVE) Urine Bilirubin (NEGATIVE) Urine Ictotest Urine Urobilinogen (<2.0) EU/dL Ur Leukocyte Esterase (NEGATIVE) Urine Opiates Screen (NEGATIVE) Ur Oxycodone Screen (NEGATIVE) Urine Methadone Screen (NEGATIVE) Ur Barbiturates Screen (NEGATIVE) Ur Phencyclidine Scrn (NEGATIVE) Ur Amphetamine Screen (NEGATIVE) U Methamphetamines Scrn (NEGATIVE) U Benzodiazepines Scrn (NEGATIVE) U Cocaine Metab Screen (NEGATIVE) U Marijuana (THC) Screen (NEGATIVE) 12/01/16 12/01/16 12/01/16 Range/Units 05:08 06:21 07:10 WBC (4.0-11.0) K/uL RBC (4.30-5.90) M/uL Hgb (12.0-16.0) g/dL Hct (36.0-46.0) % MCV (80.0-98.0) fL MCH (27.0-32.0) pg MCHC (31.0-37.0) g/dL RDW Std Deviation (28.0-62.0) fl RDW Coeff of Zak (11.0-15.0) % Plt Count (150-400) K/uL MPV (7.40-12.00) fL Neut % (Auto) (48.0-80.0) % Lymph % (Auto) (16.0-40.0) % [place] % (Auto) (0.0-15.0) % Eos % (Auto) (0.0-7.0) % Baso % (Auto) (0.0-1.5) % Neut # (Auto) (1.4-5.7) K/uL Lymph # (Auto) (0.6-2.4) K/uL [place] # (Auto) (0.0-0.8) K/uL Eos # (Auto) (0.0-0.7) K/uL Baso # (Auto) (0.0-0.1) K/uL Nucleated RBC % /100WBC Nucleated RBCs # K/uL ABG pH (7.35-7.45) ABG pCO2 (35-45) mmHG ABG pO2 (75-100) mmHG ABG HCO3 (22-26) mEq/L ABG Total CO2 ABG Base Excess (-2.0-2.0) Sodium (136-146) mmol/L Potassium (3.5-5.1) mmol/L Chloride (98-110) mmol/L Carbon Dioxide (21-31) mmol/L BUN (6.0-23.0) mg/dL Creatinine (0.6-1.5) mg/dL Est Cr Clr Drug Dosing mL/min Estimated GFR (MDRD) ml/min Glucose (60-110) mg/dL POC Glucose 178 H 141 H 145 H (60-110) mg/dL Calcium (8.8-10.8) mg/dL Phosphorus (2.4-4.7) mg/dL Magnesium (1.5-2.3) mEq/L Urine Color Urine Appearance Urine pH (5.0-8.0) Ur Specific [place] (1.001-1.035) Urine Protein (NEGATIVE) mg/dL Urine Glucose (UA) (NEGATIVE) mg/dL Urine Ketones (NEGATIVE) mg/dL Urine Occult Blood (NEGATIVE) Urine Nitrite (NEGATIVE) Urine Bilirubin (NEGATIVE) Urine Ictotest Urine Urobilinogen (<2.0) EU/dL Ur Leukocyte Esterase (NEGATIVE) Urine Opiates Screen (NEGATIVE) Ur Oxycodone Screen (NEGATIVE) Urine Methadone Screen (NEGATIVE) Ur Barbiturates Screen (NEGATIVE) Ur Phencyclidine Scrn (NEGATIVE) Ur Amphetamine Screen (NEGATIVE) U Methamphetamines Scrn (NEGATIVE) U Benzodiazepines Scrn (NEGATIVE) U Cocaine Metab Screen (NEGATIVE) U Marijuana (THC) Screen (NEGATIVE) 12/01/16 12/01/16 12/01/16 Range/Units 08:22 08:38 09:43 WBC (4.0-11.0) K/uL RBC (4.30-5.90) M/uL Hgb (12.0-16.0) g/dL Hct (36.0-46.0) % MCV (80.0-98.0) fL MCH (27.0-32.0) pg MCHC (31.0-37.0) g/dL RDW Std Deviation (28.0-62.0) fl RDW Coeff of Zak (11.0-15.0) % Plt Count (150-400) K/uL MPV (7.40-12.00) fL Neut % (Auto) (48.0-80.0) % Lymph % (Auto) (16.0-40.0) % [place] % (Auto) (0.0-15.0) % Eos % (Auto) (0.0-7.0) % Baso % (Auto) (0.0-1.5) % Neut # (Auto) (1.4-5.7) K/uL Lymph # (Auto) (0.6-2.4) K/uL [place] # (Auto) (0.0-0.8) K/uL Eos # (Auto) (0.0-0.7) K/uL Baso # (Auto) (0.0-0.1) K/uL Nucleated RBC % /100WBC Nucleated RBCs # K/uL ABG pH (7.35-7.45) ABG pCO2 (35-45) mmHG ABG pO2 (75-100) mmHG ABG HCO3 (22-26) mEq/L ABG Total CO2 ABG Base Excess (-2.0-2.0) Sodium 139 (136-146) mmol/L Potassium 3.3 L (3.5-5.1) mmol/L Chloride 114 H (98-110) mmol/L Carbon Dioxide 15 L (21-31) mmol/L BUN 3 L (6.0-23.0) mg/dL Creatinine 0.7 (0.6-1.5) mg/dL Est Cr Clr Drug Dosing 84.20 mL/min Estimated GFR (MDRD) > 60.0 ml/min Glucose 149 H (60-110) mg/dL POC Glucose 119 H 150 H (60-110) mg/dL Calcium 7.5 L (8.8-10.8) mg/dL Phosphorus 2.2 L (2.4-4.7) mg/dL Magnesium 1.8 (1.5-2.3) mEq/L Urine Color Urine Appearance Urine pH (5.0-8.0) Ur Specific [place] (1.001-1.035) Urine Protein (NEGATIVE) mg/dL Urine Glucose (UA) (NEGATIVE) mg/dL Urine Ketones (NEGATIVE) mg/dL Urine Occult Blood (NEGATIVE) Urine Nitrite (NEGATIVE) Urine Bilirubin (NEGATIVE) Urine Ictotest Urine Urobilinogen (<2.0) EU/dL Ur Leukocyte Esterase (NEGATIVE) Urine Opiates Screen (NEGATIVE) Ur Oxycodone Screen (NEGATIVE) Urine Methadone Screen (NEGATIVE) Ur Barbiturates Screen (NEGATIVE) Ur Phencyclidine Scrn (NEGATIVE) Ur Amphetamine Screen (NEGATIVE) U Methamphetamines Scrn (NEGATIVE) U Benzodiazepines Scrn (NEGATIVE) U Cocaine Metab Screen (NEGATIVE) U Marijuana (THC) Screen (NEGATIVE) 12/01/16 12/01/16 12/01/16 Range/Units 11:04 11:48 13:07 WBC (4.0-11.0) K/uL RBC (4.30-5.90) M/uL Hgb (12.0-16.0) g/dL Hct (36.0-46.0) % MCV (80.0-98.0) fL MCH (27.0-32.0) pg MCHC (31.0-37.0) g/dL RDW Std Deviation (28.0-62.0) fl RDW Coeff of Zak (11.0-15.0) % Plt Count (150-400) K/uL MPV (7.40-12.00) fL Neut % (Auto) (48.0-80.0) % Lymph % (Auto) (16.0-40.0) % [place] % (Auto) (0.0-15.0) % Eos % (Auto) (0.0-7.0) % Baso % (Auto) (0.0-1.5) % Neut # (Auto) (1.4-5.7) K/uL Lymph # (Auto) (0.6-2.4) K/uL [place] # (Auto) (0.0-0.8) K/uL Eos # (Auto) (0.0-0.7) K/uL Baso # (Auto) (0.0-0.1) K/uL Nucleated RBC % /100WBC Nucleated RBCs # K/uL ABG pH (7.35-7.45) ABG pCO2 (35-45) mmHG ABG pO2 (75-100) mmHG ABG HCO3 (22-26) mEq/L ABG Total CO2 ABG Base Excess (-2.0-2.0) Sodium (136-146) mmol/L Potassium (3.5-5.1) mmol/L Chloride (98-110) mmol/L Carbon Dioxide (21-31) mmol/L BUN (6.0-23.0) mg/dL Creatinine (0.6-1.5) mg/dL Est Cr Clr Drug Dosing mL/min Estimated GFR (MDRD) ml/min Glucose (60-110) mg/dL POC Glucose 109 136 H 211 H (60-110) mg/dL Calcium (8.8-10.8) mg/dL Phosphorus (2.4-4.7) mg/dL Magnesium (1.5-2.3) mEq/L Urine Color Urine Appearance Urine pH (5.0-8.0) Ur Specific [place] (1.001-1.035) Urine Protein (NEGATIVE) mg/dL Urine Glucose (UA) (NEGATIVE) mg/dL Urine Ketones (NEGATIVE) mg/dL Urine Occult Blood (NEGATIVE) Urine Nitrite (NEGATIVE) Urine Bilirubin (NEGATIVE) Urine Ictotest Urine Urobilinogen (<2.0) EU/dL Ur Leukocyte Esterase (NEGATIVE) Urine Opiates Screen (NEGATIVE) Ur Oxycodone Screen (NEGATIVE) Urine Methadone Screen (NEGATIVE) Ur Barbiturates Screen (NEGATIVE) Ur Phencyclidine Scrn (NEGATIVE) Ur Amphetamine Screen (NEGATIVE) U Methamphetamines Scrn (NEGATIVE) U Benzodiazepines Scrn (NEGATIVE) U Cocaine Metab Screen (NEGATIVE) U Marijuana (THC) Screen (NEGATIVE) Med Orders - Current: Current Medications Diphenhydramine HCl (Benadryl) 25 mg IVPUSH Q6H PRN PRN Reason: Itching Pantoprazole Sodium 40 mg/ (Sodium Chloride) 10 mls @ 300 mls/hr IVPUSH Q24H PIPPA Last Admin: 12/01/16 06:24 Dose: 300 mls/hr Insulin Aspart (Novolog) 0 unit SUBCUT ACBED PIPPA PRN Reason: Protocol Last Admin: 12/01/16 11:50 Dose: Not Given Insulin Detemir (Levemir) 10 unit SUBCUT BIDAC PIPPA Magnesium Oxide (Magnesium Oxide) 400 mg PO BID [facility] Nicotine (Habitrol) 14 mg TRDERM DAILY [facility] Last Admin: 12/01/16 08:26 Dose: Not Given Ondansetron HCl (Zofran) 4 mg IVPUSH Q4H PRN PRN Reason: Nausea/Vomiting Last Admin: 12/01/16 03:05 Dose: 4 mg Oxycodone HCl (Oxycodone) 5 mg PO Q4H [facility] Last Admin: 12/01/16 11:06 Dose: 5 mg Sodium Chloride (Saline Flush) 10 ml FLUSH ASDIRECTED PRN PRN Reason: Keep Vein Open Sodium Chloride (Saline Flush) 2.5 ml FLUSH ASDIRECTED PRN PRN Reason: Keep Vein Open Sodium Phosphate (Neutra-Phos) 250 mg PO QID [facility] Last Admin: 12/01/16 11:08 Dose: 250 mg Discontinued Medications Sodium Chloride (Normal Saline) 1,000 mls @ 999 mls/hr IV STAT ONE Stop: 11/30/16 12:06 Last Admin: 11/30/16 11:40 Dose: 999 mls/hr Insulin Human Regular 100 unit (/ Sodium Chloride) 100 mls @ 4.4 mls/hr IV TITRATE PIPPA; 4.4 UNIT/HR PRN Reason: Protocol Stop: 12/01/16 13:30 Last Titration: 12/01/16 11:18 Dose: 0.5 unit/hr, 0.5 mls/hr Sodium Chloride (Normal Saline) 1,000 mls @ 250 mls/hr IV ASDIRECTED [facility] Sodium Chloride (Normal Saline) 1,000 mls @ 999 mls/hr IV .Bolus ONE Stop: 11/30/16 15:14 Last Admin: 11/30/16 14:50 Dose: 999 mls/hr Potassium Chloride/Sodium Chloride (Normal Saline With 20 Meq Kcl) 1,000 mls @ 250 mls/hr IV ASDIRECTED [facility] Last Admin: 11/30/16 16:12 Dose: 250 mls/hr Dextrose/Sodium Chloride (Dextrose 5%-1/2 Ns) 1,000 mls @ 200 mls/hr IV ASDIRECTED [facility] Last Admin: 12/01/16 03:23 Dose: 200 mls/hr Magnesium Sulfate 2 gm/ Premix 50 mls @ 50 mls/hr IV ONETIME ONE Stop: 11/30/16 21:50 Last Admin: 11/30/16 21:16 Dose: 50 mls/hr Potassium Phosphate 7.5 mmole/ (Sodium Chloride) 52.5 mls @ 52.5 mls/hr IV Q1H [facility] Stop: 12/01/16 01:59 Last Admin: 12/01/16 02:13 Dose: 52.5 mls/hr Potassium Chloride/Dextrose/Sod Cl (D5 1/2 Ns W/ 20 Meq/L Kcl) 1,000 mls @ 200 mls/hr IV ASDIRECTED [facility] Last Admin: 12/01/16 08:39 Dose: 200 mls/hr Insulin Detemir (Levemir) 10 unit SUBCUT ONETIME STA Stop: 12/01/16 10:33 Last Admin: 12/01/16 11:08 Dose: 10 units Potassium Chloride (Klor-Con M20) 20 meq PO ONETIME ONE Stop: 12/01/16 10:41 Last Admin: 12/01/16 11:08 Dose: 20 meq Potassium Phosphate (Potassium Phosphates) 30 mmole IV NOW STA Stop: 11/30/16 20:53 - Exam Quality Assessment: No: supplemental oxygen General: alert, oriented, cooperative HEENT: Pupils equal, Pupils reactive Neck: supple Lungs: Clear to auscultation, Normal respiratory effort Cardiovascular: Regular Rate, Regular Rhythm Abdomen: bowel sounds present, soft Back Exam: Full Range of Motion Extremities: no edema Skin: warm, dry, intact Psy/Mental Status: alert, depressed - Problem List & Annotations (1) Diabetic ketoacidosis SNOMED Code(s): 927496449, 745216565 Code(s): E13.10 - OTH DIABETES MELLITUS WITH KETOACIDOSIS WITHOUT COMA Status: Acute Priority: High Current Visit: Yes Qualifiers: Diabetes mellitus type: type 1 Diabetes mellitus complication detail: without coma Qualified Code(s): E10.10 - Type 1 diabetes mellitus with ketoacidosis without coma Annotation/Comment:: continue monitoring via electronic ICU (2) Substance abuse SNOMED Code(s): 20129818 Code(s): F19.10 - OTHER PSYCHOACTIVE SUBSTANCE ABUSE, UNCOMPLICATED Status : Chronic Priority: High Current Visit: Yes (3) Chronic abdominal pain SNOMED Code(s): 818708381 Code(s): R10.9 - UNSPECIFIED ABDOMINAL PAIN; G89.29 - OTHER CHRONIC PAIN Status: Chronic Priority: Medium Current Visit: No (4) Hyperglycemia due to type 1 diabetes mellitus SNOMED Code(s): 042554004388212, 665942494918361 Code(s): E10.65 - TYPE 1 DIABETES MELLITUS WITH HYPERGLYCEMIA Status: Chronic Priority: High Current Visit: No - Problem List Review Problem List Initiated/Reviewed/Updated: Yes - My Orders Last 24 Hours: My Active Orders 11/30/16 14:30 oxyCODONE 5 mg PO Q4H 11/30/16 15:06 Ondansetron [Zofran] 4 mg IVPUSH Q4H PRN 11/30/16 16:11 DRUG SCREEN, SERUM REFLEX [REF] Stat 12/01/16 10:23 Consult to Physician [CONS] Urgent 12/01/16 10:25 Notify Provider Consults [RC] ASDIRECTED - Plan Plan:: Nov 30, 2016: The patient has presented in diabetic ketoacidosis. The patient has been a diabetic ketoacidosis greater than 20 times over the past couple of years. Patient has exhibited a pattern of not being able to care for herself. The patient also has multiple ER visits and is well-known to the hospital and ER staff for complications with her diabetes such as diabetic ketoacidosis and extreme hyperglycemia. The patient also has chronic abdominal pain which is been treated by narcotics. The patient also has been given on multiple occasions free insulin to help control her diabetes. Today the patient says that she took her insulin this morning but by the afternoon had been in diabetic ketoacidosis with markedly elevated blood sugars. The patient will be placed in ICU for electronic ICU monitoring for the treatment of diabetic ketoacidosis. I feel that the patient does have underlying psychiatric issues which may be contributing to her self care deficits. In the past the patient has been referred to psychiatry but the family has refused this and says that she is "normal". I have expressed my concern both to the patient and the family that the self-care deficits than likely lead to the patient's self-destruction. She is not overtly suicidal but, I believe that the patient may be manipulating her diabetes for secondary gain. For now, the patient will be treated for diabetic ketoacidosis with insulin drip, basic metabolic panel monitoring to ensure closure of anion gap and resolution of the acidosis. I will follow electronic ICU monitoring and the patient's treatment plan will be adjusted as information indicates. Dec 01, 2016: The patient is a 26-year-old lady who remains in diabetic ketoacidosis. The patient seems like she is very depressed at this time. She has had multiple ER visits secondary to diabetes as well as diabetic ketoacidosis and extreme hyperglycemia. Patient also has chronic abdominal pain which has not changed. The patient has remained in the electronic ICU and is being monitored for her diabetic ketoacidosis. I will follow the patient and I have spoken with Dr. Villeda psychiatry who will evaluate the patient tomorrow. I' ll follow the electronic ICU monitoring the patient's treatment plan will be adjusted accordingly.
[2016-12-01] MEDS: Sodium Chloride 0.45% 1,000 ML IV SCH (16:20)
[2016-12-01 17:22] LABS: CHLORIDE,CL 113 mmol/L (98-110); SODIUM,NA 140 mmol/L (136-146)
[2016-12-01] MEDS: Insulin Detemir 100 Units/ML 3 ML Pen SUBCUT SCH (18:24)
[2016-12-01] MEDS ORDERED: Insulin Detemir 100 Units/ML 3 ML Pen SUBCUT ONE (18:38)
[2016-12-01 21:26] LABS: CHLORIDE,CL 112 mmol/L (98-110); SODIUM,NA 139 mmol/L (136-146)
[2016-12-01] MEDS: Magnesium Oxide 400 MG Tab PO SCH (21:59)
[2016-12-02] MEDS: oxyCODONE 5 MG Tab PO SCH ×2 (01:55→05:40)
[2016-12-02] MEDS: Pantoprazole 40 MG in Sodium Chloride 0.9% 10 ML IVPUSH SCH (05:08)
[2016-12-02] MEDS: Phosphorus #1 250 MG Tab PO SCH (05:11)
[2016-12-02] MEDS: Sodium Chloride 0.45% 1,000 ML IV SCH (05:42)
[2016-12-02 06:32] LABS: CHLORIDE,CL 113 mmol/L (98-110); SODIUM,NA 143 mmol/L (136-146)
[2016-12-02] MEDS: Insulin Detemir 100 Units/ML 3 ML Pen SUBCUT SCH (07:11)
[2016-12-02] MEDS: Insulin Aspart 100 Units/ML 3 ML Pen SUBCUT SCH (07:12)
[2016-12-02] MEDS: Nicotine 14 MG/24 Hr Patch TRDERM SCH (08:30)
[2016-12-02] MEDS: Magnesium Oxide 400 MG Tab PO SCH (08:32)
[2016-12-02 09:49] VITALS: BP 118/76
--- NOTE | 2016-12-02 09:56 | PCM.DCSUM1 ---
Discharge Summary - Hospital Course HPI Initial Comments: hyperglycemia with diabetic ketoacidosis Brief History: the patient was admitted to intensive care unit after multiple episodes of previous diabetic ketoacidosis and hyperglycemia - Discharge Data Discharge Date: 12/02/16 Discharge Disposition: Against Medical Advice 07 Condition: Poor - Discharge Diagnosis/Problem(s) (1) Diabetic ketoacidosis SNOMED Code(s): 116041671, 447014355 ICD Code: E13.10 - OTH DIABETES MELLITUS WITH KETOACIDOSIS WITHOUT COMA Status: Acute Priority: High Current Visit: Yes Problem Details: continue monitoring via electronic ICU Qualifiers: Diabetes mellitus type: type 1 Diabetes mellitus complication detail: without coma Qualified Code(s): E10.10 - Type 1 diabetes mellitus with ketoacidosis without coma (2) Substance abuse SNOMED Code(s): 51984776 ICD Code: F19.10 - OTHER PSYCHOACTIVE SUBSTANCE ABUSE, UNCOMPLICATED Status : Chronic Priority: High Current Visit: Yes (3) Chronic abdominal pain SNOMED Code(s): 742197761 ICD Code: R10.9 - UNSPECIFIED ABDOMINAL PAIN; G89.29 - OTHER CHRONIC PAIN Status: Chronic Priority: Medium Current Visit: No (4) Hyperglycemia due to type 1 diabetes mellitus SNOMED Code(s): 917151011559128, 625735618488857 ICD Code: E10.65 - TYPE 1 DIABETES MELLITUS WITH HYPERGLYCEMIA Status: Chronic Priority: High Current Visit: No - Patient Summary/Data Consults: Consultations 12/01/16 10:23 Consult to Physician [CONS] Urgent Hospital Course: Dec 02, 2016: The patient is a 26-year-old lady was initially admitted in diabetic ketoacidosis on Nov 30, 2016. The patient prior to her current admission had been discharged secondary to hyperglycemia event 2 days earlier. The patient also had presented to the emergency department one day prior to admission on November 29, 2016 and had left AGAINST MEDICAL ADVICE. The patient was started on insulin drip, she was monitored in electronic ICU and the patient's acidosis and hyperglycemia will monitor very closely with telemetry. The patient also had been placed on oxycodone 5 mg every 4 hours in order to prevent narcotic withdrawals. The patient had continually expressed a 10 out of 10 abdominal pain in spite of resting comfortably most of the time. See nurse's notes. It was felt that the patient could benefit from psychiatric consultation and possible psychiatric hospitalization secondary to her inability to care for herself. This has been evidenced by multiple visits to the emergency department with poorly controlled diabetes as well as hospital admits secondary to diabetic ketoacidosis. The patient's diabetic ketoacidosis had been resolved and psychiatry was consulted. While awaiting telemetry psychiatric conference the patient was noted to have been testing her family. The patient's father and fianc came to the intensive care unit within a very short period of time and angrily demanded that she be released. Patient's family was very confrontational. The patient remained very tearful with a depressed affect. The patient does have a similar past history of signing out AGAINST MEDICAL ADVICE from hospitalization and emergency room workup. The primary driving force for the psychiatric examination as the patient's well-documented history of inability to care for herself. I believe that this is either unintentionally or as a method of secondary gain. I spoke with the patient and the family and I strongly recommended against signing out AGAINST MEDICAL ADVICE. Paperwork was signed by the patient and they left angry AGAINST MEDICAL ADVICE. - Discharge Plan Home Medications: Home Meds Insulin Detemir [Levemir] 15 unit SUBCUT BID 03/24/16 [History] LORazepam [Ativan] 0.5 mg PO BID PRN 03/24/16 [History] Ondansetron [Ondansetron ODT] 8 mg PO QID PRN 04/19/16 [History] Insulin Aspart [Novolog Flexpen] 16 - 20 unit SUBCUT QIDACANDBED 05/15/16 [ History] Promethazine HCl 25 mg PO Q6H PRN 08/24/16 [History] Morphine [MS Contin] 60 mg PO Q12H MDD 240 mg 10/07/16 [History] oxyCODONE 5 mg PO Q4H PRN #7 tablet 11/28/16 [Rx] Morphine 30 mg PO QID 11/30/16 [History] Forms: ED Department Discharge Referrals: Maynor Black MD [Primary Care Provider] - - Discharge Summary/Plan Comment DC Time >30 min.: No - General Info Date of Service: 12/02/16 Admission Dx/Problem (Free Text: diabetic ketoacidosis Functional Status: Denies: pain controlled - Review of Systems General: Reports: No Symptoms HEENT: Reports: no symptoms Pulmonary: Reports: no symptoms Cardiovascular: Reports: No Symptoms Gastrointestinal: Reports: Abdominal pain (chronic) Genitourinary: Reports: no symptoms Musculoskeletal: Reports: no symptoms Skin: Reports: no symptoms Neurological: Reports: No Symptoms Psychiatric: Reports: no symptoms - Patient Data Vitals - Most Recent: Last Vital Signs Temp 36.8 C 12/02/16 04:00 Pulse 112 H 11/30/16 13:26 Resp 14 12/02/16 07:00 BP 109/71 12/02/16 07:00 Pulse Ox 97 12/02/16 07:00 Weight - Most Recent: 44.18 kg I&O - Last 24 hours: Intake & Output 12/01/16 12/02/16 12/02/16 22:59 06:59 14:59 Intake Total 1300 360 Output Total 2100 3250 Balance -800 -2890 Lab Results - Last 24 hrs: Laboratory Results - last 24 hr 12/01/16 12/01/16 12/01/16 Range/Units 11:04 11:48 13:04 Sodium 138 (136-146) mmol/L Potassium 3.9 (3.5-5.1) mmol/L Chloride 113 H (98-110) mmol/L Carbon Dioxide 12 L (21-31) mmol/L BUN 3 L (6.0-23.0) mg/dL Creatinine 0.8 (0.6-1.5) mg/dL Est Cr Clr Drug Dosing 73.67 mL/min Estimated GFR (MDRD) > 60.0 ml/min Glucose 222 H (60-110) mg/dL POC Glucose 109 136 H (60-110) mg/dL Calcium 7.6 L (8.8-10.8) mg/dL Phosphorus (2.4-4.7) mg/dL Magnesium (1.5-2.3) mEq/L 12/01/16 12/01/16 12/01/16 Range/Units 13:07 16:57 17:13 Sodium 140 (136-146) mmol/L Potassium 3.5 (3.5-5.1) mmol/L Chloride 113 H (98-110) mmol/L Carbon Dioxide 17 L (21-31) mmol/L BUN 3 L (6.0-23.0) mg/dL Creatinine 0.7 (0.6-1.5) mg/dL Est Cr Clr Drug Dosing 84.20 mL/min Estimated GFR (MDRD) > 60.0 ml/min Glucose 77 (60-110) mg/dL POC Glucose 211 H 62 (60-110) mg/dL Calcium 8.2 L (8.8-10.8) mg/dL Phosphorus (2.4-4.7) mg/dL Magnesium (1.5-2.3) mEq/L 12/01/16 12/01/16 12/01/16 Range/Units 17:15 18:04 20:27 Sodium (136-146) mmol/L Potassium (3.5-5.1) mmol/L Chloride (98-110) mmol/L Carbon Dioxide (21-31) mmol/L BUN (6.0-23.0) mg/dL Creatinine (0.6-1.5) mg/dL Est Cr Clr Drug Dosing mL/min Estimated GFR (MDRD) ml/min Glucose (60-110) mg/dL POC Glucose 56 L 148 H 145 H (60-110) mg/dL Calcium (8.8-10.8) mg/dL Phosphorus (2.4-4.7) mg/dL Magnesium (1.5-2.3) mEq/L 12/01/16 12/02/16 12/02/16 Range/Units 20:51 05:27 05:56 Sodium 139 143 (136-146) mmol/L Potassium 3.9 4.0 (3.5-5.1) mmol/L Chloride 112 H 113 H (98-110) mmol/L Carbon Dioxide 15 L 19 L (21-31) mmol/L BUN 6 7 (6.0-23.0) mg/dL Creatinine 0.7 0.7 (0.6-1.5) mg/dL Est Cr Clr Drug Dosing 84.20 85.76 mL/min Estimated GFR (MDRD) > 60.0 > 60.0 ml/min Glucose 140 H 150 H (60-110) mg/dL POC Glucose 151 H (60-110) mg/dL Calcium 8.3 L 8.7 L (8.8-10.8) mg/dL Phosphorus 3.5 (2.4-4.7) mg/dL Magnesium 1.6 (1.5-2.3) mEq/L Med Orders - Current: Current Medications Diphenhydramine HCl (Benadryl) 25 mg IVPUSH Q6H PRN PRN Reason: Itching Insulin Aspart (Novolog) 0 unit SUBCUT ACBED PIPPA PRN Reason: Protocol Last Admin: 12/02/16 07:12 Dose: 1 unit Insulin Detemir (Levemir) 10 unit SUBCUT BIDAC [facility] Last Admin: 12/02/16 07:11 Dose: 10 units Magnesium Oxide (Magnesium Oxide) 400 mg PO BID [facility] Last Admin: 12/02/16 08:32 Dose: 400 mg Ondansetron HCl (Zofran) 4 mg IVPUSH Q4H PRN PRN Reason: Nausea/Vomiting Last Admin: 12/01/16 03:05 Dose: 4 mg Oxycodone HCl (Oxycodone) 5 mg PO Q4H [facility] Last Admin: 12/02/16 05:40 Dose: 5 mg Sodium Chloride (Saline Flush) 10 ml FLUSH ASDIRECTED PRN PRN Reason: Keep Vein Open Sodium Chloride (Saline Flush) 2.5 ml FLUSH ASDIRECTED PRN PRN Reason: Keep Vein Open Sodium Phosphate (Neutra-Phos) 250 mg PO QID [facility] Last Admin: 12/02/16 05:11 Dose: 250 mg Discontinued Medications Sodium Chloride (Normal Saline) 1,000 mls @ 999 mls/hr IV STAT ONE Stop: 11/30/16 12:06 Last Admin: 11/30/16 11:40 Dose: 999 mls/hr Insulin Human Regular 100 unit (/ Sodium Chloride) 100 mls @ 4.4 mls/hr IV TITRATE PIPPA; 4.4 UNIT/HR PRN Reason: Protocol Stop: 12/01/16 13:30 Last Titration: 12/01/16 13:30 Dose: 0 unit/hr, 0 mls/hr Sodium Chloride (Normal Saline) 1,000 mls @ 250 mls/hr IV ASDIRECTED [facility] Sodium Chloride (Normal Saline) 1,000 mls @ 999 mls/hr IV .Bolus ONE Stop: 11/30/16 15:14 Last Admin: 11/30/16 14:50 Dose: 999 mls/hr Potassium Chloride/Sodium Chloride (Normal Saline With 20 Meq Kcl) 1,000 mls @ 250 mls/hr IV ASDIRECTED [facility] Last Admin: 11/30/16 16:12 Dose: 250 mls/hr Dextrose/Sodium Chloride (Dextrose 5%-1/2 Ns) 1,000 mls @ 200 mls/hr IV ASDIRECTED [facility] Last Admin: 12/01/16 03:23 Dose: 200 mls/hr Magnesium Sulfate 2 gm/ Premix 50 mls @ 50 mls/hr IV ONETIME ONE Stop: 11/30/16 21:50 Last Admin: 11/30/16 21:16 Dose: 50 mls/hr Potassium Phosphate 7.5 mmole/ (Sodium Chloride) 52.5 mls @ 52.5 mls/hr IV Q1H [facility] Stop: 12/01/16 01:59 Last Admin: 12/01/16 02:13 Dose: 52.5 mls/hr Pantoprazole Sodium 40 mg/ (Sodium Chloride) 10 mls @ 300 mls/hr IVPUSH Q24H [facility] Last Admin: 12/02/16 05:08 Dose: 300 mls/hr Potassium Chloride/Dextrose/Sod Cl (D5 1/2 Ns W/ 20 Meq/L Kcl) 1,000 mls @ [facility] Admin: 12/01/16 08:39 Dose: 200 mls/hr Sodium Chloride (Sodium Chloride 0.45%) 1,000 mls @ 75 mls/hr IV ASDIRECTED [facility] Last Admin: 12/02/16 05:42 Dose: 75 mls/hr Insulin Detemir (Levemir) 10 unit SUBCUT ONETIME STA Stop: 12/01/16 10:33 Last Admin: 12/01/16 11:08 Dose: 10 units Insulin Detemir (Levemir) 8 unit SUBCUT ONETIME ONE Stop: 12/01/16 18:27 Last Admin: 12/01/16 18:41 Dose: Not Given Insulin Detemir (Levemir) 8 unit SUBCUT ONETIME ONE Stop: 12/01/16 18:39 Last Admin: 12/01/16 18:40 Dose: 8 units Nicotine (Habitrol) 14 mg TRDERM DAILY [facility] Stop: 12/01/16 16:00 Last Admin: 12/02/16 08:30 Dose: Not Given Potassium Chloride (Klor-Con M20) 20 meq PO ONETIME ONE Stop: 12/01/16 10:41 Last Admin: 12/01/16 11:08 Dose: 20 meq Potassium Phosphate (Potassium Phosphates) 30 mmole IV NOW STA Stop: 11/30/16 20:53 - Exam Quality Assessment: Denies: supplemental oxygen General: Reports: alert, oriented, no acute distress HEENT: Reports: Pupils equal, Pupils reactive Neck: Reports: supple Lungs: Reports: Clear to auscultation, Normal respiratory effort Cardiovascular: Reports: Regular Rate, Regular Rhythm Abdomen: Reports: bowel sounds present, soft Back Exam: Reports: Normal Inspection Extremities: Reports: no edema Skin: Reports: warm, dry, intact Neurological: Reports: no new focal deficit Psy/Mental Status: Reports: alert, depressed *Q Meaningful Use (DIS) - VTE *Q VTE Criteria *Q: - Stroke *Q Stroke Criteria *Q: - AMI *Q AMI Criteria *Q:
== END 2016-12-02 09:30 | disposition left against medical advice (07) | DRG 639 ==
LOC: MW.ED 10:57 → MW.ICU 13:10 → OBSVTOIN 13:10
PROVIDERS: ADMIT Internal Medicine; ATTEND Internal Medicine
DX: E10.10 Type 1 diabetes mellitus with ketoacidosis without coma (principal); F19.10 Other psychoactive substance abuse, uncomplicated; R10.9 Unspecified abdominal pain; G89.29 Other chronic pain; Z79.899 Other long term (current) drug therapy; Z79.4 Long term (current) use of insulin; Z88.8 Allergy status to other drugs, medicaments and biological substances; E10.65 Type 1 diabetes mellitus with hyperglycemia; R10.13 Epigastric pain
CPT/HCPCS: 36410; 36415; 36600; 71010; 71010-26; 80048; 80053; 80305; 80307; 81003; 82009; 82803; 82962; 83605; 83690; 83735; 84100; 84703; 85025; 93005; 96365; 99285; 99285-25; A9270-GY; C9113; J1815-GY ×2; J2405; J3475; J3480; J7030; J7040; J7042; J7050

== ENCOUNTER 2016-12-25 20:12 | Emergency (ER) | payer MEDICAID ==
[2016-12-25] MEDS ORDERED: Sodium Chloride 0.9% 10 ML Syringe FLUSH PRN (20:27)
[2016-12-25] MEDS ORDERED: Sodium Chloride 0.9% 2.5 ML Syringe FLUSH PRN (20:27)
[2016-12-25] MEDS ORDERED: Sodium Chloride 0.9% 1,000 ML IV ONE ×2 (20:39→22:20)
--- NOTE | 2016-12-25 20:45 | EDM.PDOC ---
ED HPI GENERAL MEDICAL PROBLEM - General Chief Complaint: Abdominal Pain Stated Complaint: PT HAS STOMACH PAINS Time Seen by Provider: 12/25/16 20:35 Source of Information: Reports: Patient History Limitations: Reports: No Limitations - History of Present Illness INITIAL COMMENTS - FREE TEXT/NARRATIVE: HISTORY AND PHYSICAL: History of present illness: [Patient comes to the emergency room complaining of her liver hurting. She has had abdominal pain for the past 2 days with nausea and vomiting. Has not been able to keep food or fluids down. Denies blood in her emesis. She's had no fever but admits to chills. No headaches, sore throat, runny nose or earaches. No chest pain shortness of breath or difficulty breathing. States that her blood sugars are running out over 600 and she was not able to get a reading on her glucometer. Has had diarrhea for the last 2 days. No blood in stools. No burning with urination and urinary frequency or hematuria.] Review of systems: As per history of present illness and below otherwise all systems reviewed and negative. Past medical history: As per history of present illness and as reviewed below otherwise noncontributory. Surgical history: As per history of present illness and as reviewed below otherwise noncontributory. Social history: No reported history of drug or alcohol abuse. Family history: As per history of present illness and as reviewed below otherwise noncontributory. Physical exam: HEENT: Atraumatic, normocephalic. Oral mucous membranes are dry. Teeth are decayed and are in poor repair. Lungs: Clear to auscultation, breath sounds equal bilaterally. Heart: S1S2, regular rhythm with a rate of 125. No murmur. Abdomen: Bowel sounds are normoactive. Abdomen is Soft, nondistended. She is tender throughout her entire abdomen but is worse over the right upper quadrant. No hepatomegaly appreciated. Negative for masses guarding and rebound. Negative for costovertebral tenderness. Genitourinary: Deferred. Rectal: Deferred. Extremities: Atraumatic, negative for cords or calf pain. No cyanosis or edema to feet or lower legs. Neurovascular unremarkable. Neuro: Awake, alert, oriented. Is tearful throughout exam. Motor and sensory unremarkable throughout. Exam nonfocal. Diagnostics: [CBC, CMP, hemoglobin A1c, urinalysis, point of care glucose, urine , lactic acid, ABG's] Therapeutics: [1 L normal saline at 500 miles per hour, Zofran 4mg IV] Impression: [hyperglycemia chronic abd pain] Plan: [Offered insulin and continued IV fluids which patient declines stating that she would like to leave AMA. She states that she has nausea medications at home she will take if she needs it. Encouraged patient to stay for insulin as her blood sugar is over 450, and IV fluids which she declines stating that she wants to sign the AMA paperwork and go home. She is welcome to return to emergency room if other complaints or concerns should develop at any time. Definitive disposition and diagnosis as appropriate pending reevaluation and review of above. Abdominal Pain Score (Numeric/FACES): 10 - Related Data Allergies Allergy/AdvReac Type Severity Reaction Status Date / Time acetaminophen [From Tylenol] Allergy Liver Verified 12/25/16 20:28 Problems amoxicillin Allergy Hives Verified 12/25/16 20:28 amoxicillin trihydrate Allergy Hives Verified 12/25/16 20:28 [From Amoxil] ibuprofen Allergy Liver Verified 12/25/16 20:28 Problems ketorolac tromethamine Allergy Hives Verified 12/25/16 20:28 [From Toradol] metoclopramide HCl Allergy Airway Verified 12/25/16 20:28 [From Reglan] Tightness tramadol Allergy Hives Verified 12/25/16 20:28 haldol Allergy Swelling Uncoded 12/25/16 20:28 Home Meds: Home Meds Insulin Detemir [Levemir] 15 unit SUBCUT BID 03/24/16 [History] LORazepam [Ativan] 0.5 mg PO BID PRN 03/24/16 [History] Ondansetron [Ondansetron ODT] 8 mg PO QID PRN 04/19/16 [History] Insulin Aspart [Novolog Flexpen] 16 - 20 unit SUBCUT QIDACANDBED 05/15/16 [ History] Promethazine HCl 25 mg PO Q6H PRN 08/24/16 [History] Morphine 30 mg PO 5XDAY 11/30/16 [History] Past Medical History - Past Health History Medical/Surgical History: Denies Medical/Surgical History HEENT History: Reports: Allergic Rhinitis Other HEENT History: dental abcess Cardiovascular History: Reports: None Respiratory History: Reports: Asthma Gastrointestinal History: Reports: GI Bleed, Hepatitis, PUD, Other (See Below) Other Gastrointestinal History: hx of C-diff, hx of Hepatitis B Genitourinary History: Reports: UTI, Recurrent Other Genitourinary History: current UTI [employer] History: Reports: Other (See Below) Other OB/BYN History: had miscarriage twice Musculoskeletal History: Reports: Back Pain, Chronic Neurological History: Reports: Migraines, Seizure 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, last on was 4 months ago Psychiatric History: Reports: Anxiety, Depression Endocrine/Metabolic History: Reports: Diabetes, Type I Hematologic History: Reports: Anemia, Blood Transfusion(s) Immunologic History: Reports: None Oncologic (Cancer) History: Reports: None Dermatologic History: Reports: Other (See Below) Other Dermatologic History: possible infection from port removal R upper chest - Infectious Disease History Infectious Disease History: Reports: Chicken Pox - Past Surgical History Head Surgeries/Procedures: Reports: None HEENT Surgical History: Reports: Tonsillectomy Cardiovascular Surgical History: Reports: None Respiratory Surgical History: Reports: None GI Surgical History: Reports: Appendectomy, Cholecystectomy, ERCP Female Surgical History: Reports: None Endocrine Surgical History: Reports: None Neurological Surgical History: Reports: None Musculoskeletal Surgical History: Reports: None Oncologic Surgical History: Reports: None Dermatological Surgical History: Reports: None - History Comment History Comment: She has had over [address] scans in the last 4 years. Social & Family History - Family History Family Medical History: Noncontributory HEENT: Reports: Impaired Vision Cardiac: Reports: Heart Failure Respiratory: Reports: Asthma GI: Reports: None : Reports: Renal Disease/Insufficiency OBGYN: Reports: Musculoskeletal: Reports: Back pain, Chronic Neurological: Reports: Seizure Psychiatric: Reports: None Endocrine/Metabolic: Reports: Diabetes, Type I Hematologic: Reports: None Immunologic: Reports: None Dermatologic: Reports: None Oncologic: Reports: Breast, Cervix - Tobacco Use Smoking Status *Q: Former Smoker Years of Tobacco use: 4 Packs/Tins Daily: 1 Used Tobacco, but Quit: Yes Month Tobacco Last Used: 8 months ago Second Hand Smoke Exposure: Yes - Caffeine Use Caffeine Use: Reports: None - Alcohol Use Days Per Week of Alcohol Use: 0 - Recreational Drug Use Recreational Drug Use: No Drug Use in Last 12 Months: Yes Recreational Drug Type: Reports: Other (see below) Other Recreational Drug Type: patient verbalized she took oxymorphone prior to admission Recreational Drug Use Frequency: Patient Refuses To Answer - Living Situation & Occupation Living situation: Reports: with Significant Other, with Family, Other Occupation: Unemployed ED ROS GENERAL - Review of Systems Review Of Systems: ROS reveals no pertinent complaints other than HPI. ED EXAM, GI/ABD - Physical Exam Exam: See Below Course - Vital Signs Last Recorded V/S: Last Vital Signs Temp 98.2 F 12/25/16 21:45 Pulse 110 H 12/25/16 21:45 Resp 20 12/25/16 21:45 BP 118/70 12/25/16 21:45 Pulse Ox 97 12/25/16 21:45 - Orders/Labs/Meds Orders: Active Orders 24 hr Category Date Time Status Sodium Chloride 0.9% [Normal Saline] 1,000 ml Med 12/25/16 20:39 Active IV STAT Sodium Chloride 0.9% [Saline Flush] Med 12/25/16 20:27 Active 10 ml FLUSH ASDIRECTED PRN Sodium Chloride 0.9% [Saline Flush] Med 12/25/16 20:27 Active 2.5 ml FLUSH ASDIRECTED PRN Saline Lock Insert [OM.PC] Stat Oth 12/25/16 20:27 Ordered Medication Orders Sodium Chloride (Normal Saline) 1,000 mls @ 500 mls/hr IV STAT ONE Stop: 12/25/16 22:38 Last Admin: 12/25/16 20:53 Dose: 500 mls/hr Sodium Chloride (Saline Flush) 10 ml FLUSH ASDIRECTED PRN PRN Reason: Keep Vein Open Sodium Chloride (Saline Flush) 2.5 ml FLUSH ASDIRECTED PRN PRN Reason: Keep Vein Open Labs: Laboratory Tests 12/25/16 12/25/16 12/25/16 Range/Units 20:27 20:35 20:35 WBC (4.0-11.0) K/uL RBC (4.30-5.90) M/uL Hgb (12.0-16.0) g/dL Hct (36.0-46.0) % MCV (80.0-98.0) fL MCH (27.0-32.0) pg MCHC (31.0-37.0) g/dL RDW Std Deviation (28.0-62.0) fl RDW Coeff of Zak (11.0-15.0) % Plt Count (150-400) K/uL MPV (7.40-12.00) fL Neut % (Auto) (48.0-80.0) % Lymph % (Auto) (16.0-40.0) % Ida % (Auto) (0.0-15.0) % Eos % (Auto) (0.0-7.0) % Baso % (Auto) (0.0-1.5) % Neut # (Auto) (1.4-5.7) K/uL Lymph # (Auto) (0.6-2.4) K/uL Ida # (Auto) (0.0-0.8) K/uL Eos # (Auto) (0.0-0.7) K/uL Baso # (Auto) (0.0-0.1) K/uL Nucleated RBC % /100WBC Nucleated RBCs # K/uL ABG pH (7.35-7.45) ABG pCO2 (35-45) mmHG ABG pO2 (75-100) mmHG ABG HCO3 (22-26) mEq/L ABG Total CO2 ABG Base Excess (-2.0-2.0) Lactate (0.20-2.00) mmol/L Sodium (136-146) mmol/L Potassium (3.5-5.1) mmol/L Chloride (98-110) mmol/L Carbon Dioxide (21-31) mmol/L BUN (6.0-23.0) mg/dL Creatinine (0.6-1.5) mg/dL Est Cr Clr Drug Dosing mL/min Estimated GFR (MDRD) ml/min Glucose (60-110) mg/dL POC Glucose 359 H (60-110) mg/dL Hemoglobin A1c (0.0-6.0) % Calcium (8.8-10.8) mg/dL Total Bilirubin (0.1-1.5) mg/dL AST (5-40) IU/L ALT (8-54) IU/L Alkaline Phosphatase (40-150) Total Protein (6.0-8.0) g/dL Albumin (3.5-5.0) g/dL Globulin (2.0-3.5) g/dL Albumin/Globulin Ratio (1.3-2.8) Urine Color YELLOW Urine Appearance CLEAR Urine pH 6.0 (5.0-8.0) Ur Specific Means <= 1.005 (1.001-1.035) Urine Protein NEGATIVE (NEGATIVE) mg/dL Urine Glucose (UA) 500 H (NEGATIVE) mg/dL Urine Ketones 40 H (NEGATIVE) mg/dL Urine Occult Blood NEGATIVE (NEGATIVE) Urine Nitrite NEGATIVE (NEGATIVE) Urine Bilirubin NEGATIVE (NEGATIVE) Urine Urobilinogen 0.2 (<2.0) EU/dL Ur Leukocyte Esterase NEGATIVE (NEGATIVE) Urine RBC 0-1 (0-2/HPF) Urine WBC 0-2 (0-5/HPF) Ur Epithelial Cells FEW (NONE-FEW) Urine Bacteria RARE (NEGATIVE) Urine HCG, Qual NEGATIVE (NEGATIVE) 12/25/16 12/25/16 12/25/16 Range/Units 20:58 20:58 20:58 WBC 5.60 (4.0-11.0) K/uL RBC 4.37 (4.30-5.90) M/uL Hgb 12.3 (12.0-16.0) g/dL Hct 38.4 (36.0-46.0) % MCV 87.9 (80.0-98.0) fL MCH 28.1 (27.0-32.0) pg MCHC 32.0 (31.0-37.0) g/dL RDW Std Deviation 51.8 (28.0-62.0) fl RDW Coeff of Zak 16 H (11.0-15.0) % Plt Count 388 (150-400) K/uL MPV 10.40 (7.40-12.00) fL Neut % (Auto) 69.8 (48.0-80.0) % Lymph % (Auto) 25.2 (16.0-40.0) % Ida % (Auto) 3.8 (0.0-15.0) % Eos % (Auto) 0.7 (0.0-7.0) % Baso % (Auto) 0.5 (0.0-1.5) % Neut # (Auto) 3.9 (1.4-5.7) K/uL Lymph # (Auto) 1.4 (0.6-2.4) K/uL Ida # (Auto) 0.2 (0.0-0.8) K/uL Eos # (Auto) 0.0 (0.0-0.7) K/uL Baso # (Auto) 0.0 (0.0-0.1) K/uL Nucleated RBC % 0.0 /100WBC Nucleated RBCs # 0 K/uL ABG pH (7.35-7.45) ABG pCO2 (35-45) mmHG ABG pO2 (75-100) mmHG ABG HCO3 (22-26) mEq/L ABG Total CO2 ABG Base Excess (-2.0-2.0) Lactate 1.4 (0.20-2.00) mmol/L Sodium 135 L (136-146) mmol/L Potassium 4.9 (3.5-5.1) mmol/L Chloride 102 (98-110) mmol/L Carbon Dioxide 14 L (21-31) mmol/L BUN 16 (6.0-23.0) mg/dL Creatinine 0.9 (0.6-1.5) mg/dL Est Cr Clr Drug Dosing 67.44 mL/min Estimated GFR (MDRD) > 60.0 ml/min Glucose 451 H (60-110) mg/dL POC Glucose (60-110) mg/dL Hemoglobin A1c (0.0-6.0) % Calcium 9.9 (8.8-10.8) mg/dL Total Bilirubin 0.8 (0.1-1.5) mg/dL AST 54 H (5-40) IU/L ALT 102 H (8-54) IU/L Alkaline Phosphatase 215 H (40-150) Total Protein 7.2 (6.0-8.0) g/dL Albumin 4.1 (3.5-5.0) g/dL Globulin 3.1 (2.0-3.5) g/dL Albumin/Globulin Ratio 1.3 (1.3-2.8) Urine Color Urine Appearance Urine pH (5.0-8.0) Ur Specific Means (1.001-1.035) Urine Protein (NEGATIVE) mg/dL Urine Glucose (UA) (NEGATIVE) mg/dL Urine Ketones (NEGATIVE) mg/dL Urine Occult Blood (NEGATIVE) Urine Nitrite (NEGATIVE) Urine Bilirubin (NEGATIVE) Urine Urobilinogen (<2.0) EU/dL Ur Leukocyte Esterase (NEGATIVE) Urine RBC (0-2/HPF) Urine WBC (0-5/HPF) Ur Epithelial Cells (NONE-FEW) Urine Bacteria (NEGATIVE) Urine HCG, Qual (NEGATIVE) 12/25/16 12/25/16 Range/Units 20:58 21:43 WBC (4.0-11.0) K/uL RBC (4.30-5.90) M/uL Hgb (12.0-16.0) g/dL Hct (36.0-46.0) % MCV (80.0-98.0) fL MCH (27.0-32.0) pg MCHC (31.0-37.0) g/dL RDW Std Deviation (28.0-62.0) fl RDW Coeff of Zak (11.0-15.0) % Plt Count (150-400) K/uL MPV (7.40-12.00) fL Neut % (Auto) (48.0-80.0) % Lymph % (Auto) (16.0-40.0) % Ida % (Auto) (0.0-15.0) % Eos % (Auto) (0.0-7.0) % Baso % (Auto) (0.0-1.5) % Neut # (Auto) (1.4-5.7) K/uL Lymph # (Auto) (0.6-2.4) K/uL Ida # (Auto) (0.0-0.8) K/uL Eos # (Auto) (0.0-0.7) K/uL Baso # (Auto) (0.0-0.1) K/uL Nucleated RBC % /100WBC Nucleated RBCs # K/uL ABG pH 7.395 (7.35-7.45) ABG pCO2 26 L (35-45) mmHG ABG pO2 93 (75-100) mmHG ABG HCO3 16 L (22-26) mEq/L ABG Total CO2 14.6 ABG Base Excess -8.1 L (-2.0-2.0) Lactate (0.20-2.00) mmol/L Sodium (136-146) mmol/L Potassium (3.5-5.1) mmol/L Chloride (98-110) mmol/L Carbon Dioxide (21-31) mmol/L BUN (6.0-23.0) mg/dL Creatinine (0.6-1.5) mg/dL Est Cr Clr Drug Dosing mL/min Estimated GFR (MDRD) ml/min Glucose (60-110) mg/dL POC Glucose (60-110) mg/dL Hemoglobin A1c 9.2 H (0.0-6.0) % Calcium (8.8-10.8) mg/dL Total Bilirubin (0.1-1.5) mg/dL AST (5-40) IU/L ALT (8-54) IU/L Alkaline Phosphatase (40-150) Total Protein (6.0-8.0) g/dL Albumin (3.5-5.0) g/dL Globulin (2.0-3.5) g/dL Albumin/Globulin Ratio (1.3-2.8) Urine Color Urine Appearance Urine pH (5.0-8.0) Ur Specific Means (1.001-1.035) Urine Protein (NEGATIVE) mg/dL Urine Glucose (UA) (NEGATIVE) mg/dL Urine Ketones (NEGATIVE) mg/dL Urine Occult Blood (NEGATIVE) Urine Nitrite (NEGATIVE) Urine Bilirubin (NEGATIVE) Urine Urobilinogen (<2.0) EU/dL Ur Leukocyte Esterase (NEGATIVE) Urine RBC (0-2/HPF) Urine WBC (0-5/HPF) Ur Epithelial Cells (NONE-FEW) Urine Bacteria (NEGATIVE) Urine HCG, Qual (NEGATIVE) Meds: Medications Generic Name Dose Route Start Last Admin Trade Name Freq PRN Reason Stop Dose Admin Sodium Chloride 1,000 mls @ 500 mls/hr 12/25/16 20:39 12/25/16 20:53 Normal Saline IV 12/25/16 22:38 500 mls/hr STAT ONE Administration Sodium Chloride 10 ml 12/25/16 20:27 Saline Flush FLUSH ASDIRECTED PRN Keep Vein Open Sodium Chloride 2.5 ml 12/25/16 20:27 Saline Flush FLUSH ASDIRECTED PRN Keep Vein Open Discontinued Medications Generic Name Dose Route Start Last Admin Trade Name Freq PRN Reason Stop Dose Admin Sodium Chloride 1,000 mls @ 999 mls/hr 12/25/16 22:20 Normal Saline IV 12/25/16 23:20 STAT ONE Insulin Human Regular 10 unit 12/25/16 22:20 Novolin R IV 12/25/16 22:21 ONETIME ONE Protocol Ondansetron HCl 4 mg 12/25/16 22:09 Zofran IVPUSH 12/25/16 22:10 ONETIME ONE Departure - Departure Time of Disposition: 22:25 Disposition: Against Medical Advice 07 Condition: Fair Clinical Impression: Hyperglycemia, Chronic abdominal pain Diabetes Qualifiers: Diabetes mellitus type: type 1 Diabetes mellitus complication status: without complication Qualified Code(s): E10.9 - Type 1 diabetes mellitus without complications - Discharge Information Referrals: PCP,None [Primary Care Provider] - Forms: ED Department Discharge - My Orders Last 24 Hours: My Active Orders 12/25/16 20:27 Sodium Chloride 0.9% [Saline Flush] 10 ml FLUSH ASDIRECTED PRN Sodium Chloride 0.9% [Saline Flush] 2.5 ml FLUSH ASDIRECTED PRN Saline Lock Insert [OM.PC] Stat 12/25/16 20:39 Sodium Chloride 0.9% [Normal Saline] 1,000 ml IV STAT - Assessment/Plan Last 24 Hours: My Active Orders 12/25/16 20:27 Sodium Chloride 0.9% [Saline Flush] 10 ml FLUSH ASDIRECTED PRN Sodium Chloride 0.9% [Saline Flush] 2.5 ml FLUSH ASDIRECTED PRN Saline Lock Insert [OM.PC] Stat 12/25/16 20:39 Sodium Chloride 0.9% [Normal Saline] 1,000 ml IV STAT
[2016-12-25 21:37] LABS: CHLORIDE,CL 102 mmol/L (98-110); SODIUM,NA 135 mmol/L (136-146)
[2016-12-25 22:01] VITALS: BP 118/70
[2016-12-25] MEDS ORDERED: Ondansetron 4 MG/2 ML SDV IVPUSH ONE (22:09)
[2016-12-25] MEDS ORDERED: Insulin Regular, Human 100 Units/ML 10 ML Vial IV ONE (22:20)
== END 2016-12-25 22:30 | disposition left against medical advice (07) ==
LOC: MW.ED 20:12
DX: E10.65 Type 1 diabetes mellitus with hyperglycemia (principal); R10.11 Right upper quadrant pain; G89.29 Other chronic pain; J45.909 Unspecified asthma, uncomplicated; G43.909 Migraine, unspecified, not intractable, without status migrainosus; F41.9 Anxiety disorder, unspecified; F32.9 Major depressive disorder, single episode, unspecified; Z87.440 Personal history of urinary (tract) infections; Z88.1 Allergy status to other antibiotic agents; Z88.6 Allergy status to analgesic agent; Z88.5 Allergy status to narcotic agent; Z79.4 Long term (current) use of insulin; Z79.899 Other long term (current) drug therapy; Z90.49 Acquired absence of other specified parts of digestive tract; Z98.890 Other specified postprocedural states; Z87.891 Personal history of nicotine dependence
CPT/HCPCS: 36415; 36600; 80053; 81001; 81025; 82803; 82962; 83036; 83605; 85025; 96360; 99284; J7040; 99282

== ENCOUNTER 2016-12-25 23:50 | Emergency (ER) | payer MEDICAID ==
[2016-12-25 23:58] VITALS: BP 122/65
[2016-12-26] MEDS ORDERED: Insulin Regular, Human 100 Units/ML 10 ML Vial IVPUSH ONE (00:04)
[2016-12-26] MEDS ORDERED: Sodium Chloride 0.9% 1,000 ML IV ONE ×2 (00:04→00:05)
--- NOTE | 2016-12-26 00:08 | EDM.PDOC ---
ED HPI GENERAL MEDICAL PROBLEM - General Chief Complaint: Abdominal Pain Stated Complaint: PT HAS STOMACH PAINS Time Seen by Provider: 12/26/16 00:02 - History of Present Illness INITIAL COMMENTS - FREE TEXT/NARRATIVE: HISTORY AND PHYSICAL: History of present illness: Patient 26-year-old female well-known [facility] was medically noncompliant with history of diabetes was seen prior to arrival and it workup and left AGAINST MEDICAL ADVICE returns now on arrival she is elevated blood sugar One Touch graded 500 she is history chronic abdominal pain no reported vomiting fever chills or other complaints Review of systems: As per history of present illness and below otherwise all systems reviewed and negative. Past medical history: As per history of present illness and as reviewed below otherwise noncontributory. Surgical history: As per history of present illness and as reviewed below otherwise noncontributory. Social history: No reported history of drug or alcohol abuse. Family history: As per history of present illness and as reviewed below otherwise noncontributory. Physical exam: HEENT: Atraumatic, normocephalic, pupils reactive, negative for conjunctival pallor or scleral icterus, mucous membranes moist, throat clear, neck supple, nontender, trachea midline. Lungs: Clear to auscultation, breath sounds equal bilaterally, chest nontender. Heart: S1S2, regular, negative for clicks, rubs, or JVD. Abdomen: Soft, nondistended, nontender. Negative for masses or hepatosplenomegaly. Negative for costovertebral tenderness. Pelvis: Stable nontender. Genitourinary: Deferred. Rectal: Deferred. Extremities: Atraumatic, negative for cords or calf pain. Neurovascular unremarkable. Neuro: Awake, alert, oriented. Cranial nerves II through XII unremarkable. Cerebellum unremarkable. Motor and sensory unremarkable throughout. Exam nonfocal. Diagnostics: CBC CMP ABG Therapeutics: Normal saline 2 L bolus insulin 10 units regular IV Impression: #1 hyperglycemia #2 diabetes with medical noncompliance #3 chronic abdominal pain Definitive disposition and diagnosis as appropriate pending reevaluation and review of above. - Related Data Allergies Allergy/AdvReac Type Severity Reaction Status Date / Time acetaminophen [From Tylenol] Allergy Liver Verified 12/25/16 20:28 Problems amoxicillin Allergy Hives Verified 12/25/16 20:28 amoxicillin trihydrate Allergy Hives Verified 12/25/16 20:28 [From Amoxil] ibuprofen Allergy Liver Verified 12/25/16 20:28 Problems ketorolac tromethamine Allergy Hives Verified 12/25/16 20:28 [From Toradol] metoclopramide HCl Allergy Airway Verified 12/25/16 20:28 [From Reglan] Tightness tramadol Allergy Hives Verified 12/25/16 20:28 haldol Allergy Swelling Uncoded 12/25/16 20:28 Home Meds: Home Meds Insulin Detemir [Levemir] 15 unit SUBCUT BID 03/24/16 [History] LORazepam [Ativan] 0.5 mg PO BID PRN 03/24/16 [History] Ondansetron [Ondansetron ODT] 8 mg PO QID PRN 04/19/16 [History] Insulin Aspart [Novolog Flexpen] 16 - 20 unit SUBCUT QIDACANDBED 05/15/16 [ History] Promethazine HCl 25 mg PO Q6H PRN 08/24/16 [History] Morphine 30 mg PO 5XDAY 11/30/16 [History] Past Medical History - Past Health History Medical/Surgical History: Denies Medical/Surgical History HEENT History: Reports: Allergic Rhinitis Other HEENT History: dental abcess Cardiovascular History: Reports: None Respiratory History: Reports: Asthma Gastrointestinal History: Reports: GI Bleed, Hepatitis, PUD, Other (See Below) Other Gastrointestinal History: hx of C-diff, hx of Hepatitis B Genitourinary History: Reports: UTI, Recurrent Other Genitourinary History: current UTI QUAD STAYER History: Reports: Other (See Below) Other OB/BYN History: had miscarriage twice Musculoskeletal History: Reports: Back Pain, Chronic Neurological History: Reports: Migraines, Seizure 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, last on was 4 months ago Psychiatric History: Reports: Anxiety, Depression Endocrine/Metabolic History: Reports: Diabetes, Type I Hematologic History: Reports: Anemia, Blood Transfusion(s) Immunologic History: Reports: None Oncologic (Cancer) History: Reports: None Dermatologic History: Reports: Other (See Below) Other Dermatologic History: possible infection from port removal R upper chest - Infectious Disease History Infectious Disease History: Reports: Chicken Pox - Past Surgical History Head Surgeries/Procedures: Reports: None HEENT Surgical History: Reports: Tonsillectomy Cardiovascular Surgical History: Reports: None Respiratory Surgical History: Reports: None GI Surgical History: Reports: Appendectomy, Cholecystectomy, ERCP Female Surgical History: Reports: None Endocrine Surgical History: Reports: None Neurological Surgical History: Reports: None Musculoskeletal Surgical History: Reports: None Oncologic Surgical History: Reports: None Dermatological Surgical History: Reports: None - History Comment History Comment: She has had over [address] scans in the last 4 years. Social & Family History - Family History Family Medical History: Noncontributory HEENT: Reports: Impaired Vision Cardiac: Reports: Heart Failure Respiratory: Reports: Asthma GI: Reports: None : Reports: Renal Disease/Insufficiency OBGYN: Reports: Musculoskeletal: Reports: Back pain, Chronic Neurological: Reports: Seizure Psychiatric: Reports: None Endocrine/Metabolic: Reports: Diabetes, Type I Hematologic: Reports: None Immunologic: Reports: None Dermatologic: Reports: None Oncologic: Reports: Breast, Cervix - Tobacco Use Smoking Status *Q: Former Smoker Years of Tobacco use: 4 Packs/Tins Daily: 1 Used Tobacco, but Quit: Yes Month Tobacco Last Used: 8 months ago Second Hand Smoke Exposure: Yes - Caffeine Use Caffeine Use: Reports: None - Alcohol Use Days Per Week of Alcohol Use: 0 - Recreational Drug Use Recreational Drug Use: No Drug Use in Last 12 Months: Yes Recreational Drug Type: Reports: Other (see below) Other Recreational Drug Type: patient verbalized she took oxymorphone prior to admission Recreational Drug Use Frequency: Patient Refuses To Answer - Living Situation & Occupation Living situation: Reports: with Significant Other, with Family, Other Occupation: Unemployed ED ROS GENERAL - Review of Systems Review Of Systems: ROS reveals no pertinent complaints other than HPI. ED EXAM, GENERAL - Physical Exam Exam: See Below (See dictation) Course - Vital Signs Last Recorded V/S: Last Vital Signs Temp 36.4 C 12/25/16 23:56 Pulse 108 H 12/25/16 23:56 Resp 20 12/25/16 23:56 BP 122/65 12/25/16 23:56 Pulse Ox 99 12/25/16 23:56 - Orders/Labs/Meds Labs: Laboratory Tests 12/26/16 12/26/16 12/26/16 Range/Units 00:05 00:19 00:19 WBC 5.02 (4.0-11.0) K/uL RBC 4.41 (4.30-5.90) M/uL Hgb 12.3 (12.0-16.0) g/dL Hct 38.8 (36.0-46.0) % MCV 88.0 (80.0-98.0) fL MCH 27.9 (27.0-32.0) pg MCHC 31.7 (31.0-37.0) g/dL RDW Std Deviation 50.4 (28.0-62.0) fl RDW Coeff of Zak 16 H (11.0-15.0) % Plt Count 383 (150-400) K/uL MPV 10.40 (7.40-12.00) fL Neut % (Auto) 73.5 (48.0-80.0) % Lymph % (Auto) 23.1 (16.0-40.0) % Mayes % (Auto) 2.8 (0.0-15.0) % Eos % (Auto) 0.2 (0.0-7.0) % Baso % (Auto) 0.4 (0.0-1.5) % Neut # (Auto) 3.7 (1.4-5.7) K/uL Lymph # (Auto) 1.2 (0.6-2.4) K/uL Mayes # (Auto) 0.1 (0.0-0.8) K/uL Eos # (Auto) 0.0 (0.0-0.7) K/uL Baso # (Auto) 0.0 (0.0-0.1) K/uL ABG pH 7.349 L (7.35-7.45) ABG pCO2 21 L (35-45) mmHG ABG pO2 103 H (75-100) mmHG ABG HCO3 12 L (22-26) mEq/L ABG Total CO2 10.8 ABG Base Excess -12.5 L (-2.0-2.0) Sodium 134 L (136-146) mmol/L Potassium 4.4 (3.5-5.1) mmol/L Chloride 102 (98-110) mmol/L Carbon Dioxide 10 L (21-31) mmol/L BUN 18 (6.0-23.0) mg/dL Creatinine 1.0 (0.6-1.5) mg/dL Est Cr Clr Drug Dosing TNP Estimated GFR (MDRD) > 60.0 ml/min Glucose 627 H* (60-110) mg/dL POC Glucose (60-110) mg/dL Calcium 9.6 (8.8-10.8) mg/dL Total Bilirubin 0.9 (0.1-1.5) mg/dL AST 49 H (5-40) IU/L ALT 99 H (8-54) IU/L Alkaline Phosphatase 210 H (40-150) Total Protein 7.6 (6.0-8.0) g/dL Albumin 4.2 (3.5-5.0) g/dL Globulin 3.4 (2.0-3.5) g/dL Albumin/Globulin Ratio 1.2 L (1.3-2.8) 12/26/16 Range/Units 01:14 WBC (4.0-11.0) K/uL RBC (4.30-5.90) M/uL Hgb (12.0-16.0) g/dL Hct (36.0-46.0) % MCV (80.0-98.0) fL MCH (27.0-32.0) pg MCHC (31.0-37.0) g/dL RDW Std Deviation (28.0-62.0) fl RDW Coeff of Zak (11.0-15.0) % Plt Count (150-400) K/uL MPV (7.40-12.00) fL Neut % (Auto) (48.0-80.0) % Lymph % (Auto) (16.0-40.0) % Mayes % (Auto) (0.0-15.0) % Eos % (Auto) (0.0-7.0) % Baso % (Auto) (0.0-1.5) % Neut # (Auto) (1.4-5.7) K/uL Lymph # (Auto) (0.6-2.4) K/uL Mayes # (Auto) (0.0-0.8) K/uL Eos # (Auto) (0.0-0.7) K/uL Baso # (Auto) (0.0-0.1) K/uL ABG pH (7.35-7.45) ABG pCO2 (35-45) mmHG ABG pO2 (75-100) mmHG ABG HCO3 (22-26) mEq/L ABG Total CO2 ABG Base Excess (-2.0-2.0) Sodium (136-146) mmol/L Potassium (3.5-5.1) mmol/L Chloride (98-110) mmol/L Carbon Dioxide (21-31) mmol/L BUN (6.0-23.0) mg/dL Creatinine (0.6-1.5) mg/dL Est Cr Clr Drug Dosing Estimated GFR (MDRD) ml/min Glucose (60-110) mg/dL POC Glucose 493 H (60-110) mg/dL Calcium (8.8-10.8) mg/dL Total Bilirubin (0.1-1.5) mg/dL AST (5-40) IU/L ALT (8-54) IU/L Alkaline Phosphatase (40-150) Total Protein (6.0-8.0) g/dL Albumin (3.5-5.0) g/dL Globulin (2.0-3.5) g/dL Albumin/Globulin Ratio (1.3-2.8) Meds: Medications Discontinued Medications Generic Name Dose Route Start Last Admin Trade Name Freq PRN Reason Stop Dose Admin Sodium Chloride 1,000 mls @ 999 mls/hr 12/26/16 00:04 12/26/16 01:07 Normal Saline IV 12/26/16 01:04 999 mls/hr STAT ONE Administration Sodium Chloride 1,000 mls @ 999 mls/hr 12/26/16 00:05 Normal Saline IV 12/26/16 01:05 STAT ONE Insulin Human Regular 10 unit 12/26/16 00:04 12/26/16 01:03 Novolin R IVPUSH 12/26/16 00:05 10 units ONETIME ONE Administration Protocol Departure - Departure Time of Disposition: 01:54 Disposition: Against Medical Advice 07 Condition: Good Clinical Impression: Medical non-compliance Diabetes Qualifiers: Diabetes mellitus type: type 1 Diabetes mellitus complication status: without complication Qualified Code(s): E10.9 - Type 1 diabetes mellitus without complications - Discharge Information Forms: ED Department Discharge
[2016-12-26 00:46] LABS: CHLORIDE,CL 102 mmol/L (98-110); SODIUM,NA 134 mmol/L (136-146)
== END 2016-12-26 01:45 | disposition left against medical advice (07) ==
LOC: MW.ED 23:50
DX: E10.65 Type 1 diabetes mellitus with hyperglycemia (principal); R10.9 Unspecified abdominal pain; G89.29 Other chronic pain; G43.909 Migraine, unspecified, not intractable, without status migrainosus; F41.9 Anxiety disorder, unspecified; F32.9 Major depressive disorder, single episode, unspecified; Z88.1 Allergy status to other antibiotic agents; Z91.19 Patient's noncompliance with other medical treatment and regimen; Z88.5 Allergy status to narcotic agent; Z88.6 Allergy status to analgesic agent; Z87.440 Personal history of urinary (tract) infections; Z90.49 Acquired absence of other specified parts of digestive tract; Z87.891 Personal history of nicotine dependence; R10.11 Right upper quadrant pain; J45.909 Unspecified asthma, uncomplicated; Z79.899 Other long term (current) drug therapy; Z98.890 Other specified postprocedural states
CPT/HCPCS: 36415; 36600; 80053; 81001; 81025; 82803; 82962; 83036; 83605; 85025; 96360; 96361; 96374; 99284; J1815; J7040; 99282; 99283

== ENCOUNTER 2016-12-26 06:57 | Inpatient (IN) | payer MEDICAID ==
[2016-12-26] MEDS ORDERED: Insulin Regular, Human 100 Units/ML 10 ML Vial IVPUSH ONE ×2 (07:11→08:08)
[2016-12-26] MEDS ORDERED: Sodium Chloride 0.9% 1,000 ML IV ONE (07:11)
[2016-12-26] MEDS ORDERED: Insulin Regular, Human 100 Units/ML 10 ML Vial SUBCUT ONE (07:11)
--- NOTE | 2016-12-26 07:11 | EDM.PDOC ---
[id number] Provider: 12/26/16 07:07 Source of Information: Reports: Patient - History of Present Illness INITIAL COMMENTS - FREE TEXT/NARRATIVE: HISTORY AND PHYSICAL: History of present illness: []Patient presents tearful crying states she is out of her morphine and is out of her pain medications She also couldn't sleep so she took 6 of her Ativan 0.5 mg for a total of 3 mg of Ativan denies suicidal ideation, she states she took the additional Ativan as she was unable to sleep secondary to narcotic withdrawal States she has had multiple multiple episodes of vomiting and abdominal pain which is consistent with her usual history, she is on 30 mg of morphine 4 times daily, she neck sees her primary care tomorrow Dr. wong Review of systems: As per history of present illness and below otherwise all systems reviewed and negative. Past medical history: As per history of present illness and as reviewed below otherwise noncontributory. Surgical history: As per history of present illness and as reviewed below otherwise noncontributory. Social history: No reported history of drug or alcohol abuse. Family history: As per history of present illness and as reviewed below otherwise noncontributory. Physical exam: HEENT: Atraumatic, normocephalic, pupils reactive, negative for conjunctival pallor or scleral icterus, mucous membranes moist, throat clear, neck supple, nontender, trachea midline. Lungs: Clear to auscultation, breath sounds equal bilaterally, chest nontender. Heart: S1S2, regular, negative for clicks, rubs, or JVD. Abdomen: Soft, nondistended, nontender. Negative for masses or hepatosplenomegaly. Negative for costovertebral tenderness. Pelvis: Stable nontender. Genitourinary: Deferred. Rectal: Deferred. Extremities: Atraumatic, negative for cords or calf pain. Neurovascular unremarkable. Neuro: Awake, alert, oriented. Cranial nerves II through XII unremarkable. Cerebellum unremarkable. Motor and sensory unremarkable throughout. Exam nonfocal. Diagnostics: []Lab as below ABG Chest 1 view Therapeutics: []1 L normal saline bolus Regular insulin 10 units subcutaneous/10 units IV Insulin drip---> glucose 200 D5 normal saline 1 50 mL per hour with 20 mEq of potassium Impression: DKA Nausea vomiting Dehydration []Hyperglycemia Opioid withdrawal Definitive disposition and diagnosis as appropriate pending reevaluation and review of above. no pain verbalized Pain Score (Numeric/FACES): 0 Abdomen Pain Score (Numeric/FACES): 10 - Related Data Allergies Allergy/AdvReac Type Severity Reaction Status Date / Time acetaminophen [From Tylenol] Allergy Liver Verified 12/26/16 07:06 Problems amoxicillin Allergy Hives Verified 12/26/16 07:06 amoxicillin trihydrate Allergy Hives Verified 12/26/16 07:06 [From Amoxil] ibuprofen Allergy Liver Verified 12/26/16 07:06 Problems ketorolac tromethamine Allergy Hives Verified 12/26/16 07:06 [From Toradol] metoclopramide HCl Allergy Airway Verified 12/26/16 07:06 [From Reglan] Tightness tramadol Allergy Hives Verified 12/26/16 07:06 haldol Allergy Swelling Uncoded 12/26/16 07:06 Home Meds: Home Meds Insulin Detemir [Levemir] 15 unit SUBCUT BID 03/24/16 [History] LORazepam [Ativan] 0.5 mg PO BID PRN 03/24/16 [History] Ondansetron [Ondansetron ODT] 8 mg PO QID PRN 04/19/16 [History] Insulin Aspart [Novolog Flexpen] 16 - 20 unit SUBCUT QIDACANDBED 05/15/16 [ History] Promethazine HCl 25 mg PO Q6H PRN 08/24/16 [History] Morphine 30 mg PO 5XDAY 11/30/16 [History] Morphine 30 mg PO Q4H PRN #20 tab 12/28/16 [Rx] Past Medical History - Past Health History Medical/Surgical History: Denies Medical/Surgical History HEENT History: Reports: Allergic Rhinitis Other HEENT History: dental abcess Cardiovascular History: Reports: None Respiratory History: Reports: Asthma Gastrointestinal History: Reports: GI Bleed, Hepatitis, PUD, Other (See Below) Other Gastrointestinal History: hx of C-diff, hx of Hepatitis B Genitourinary History: Reports: UTI, Recurrent Other Genitourinary History: current UTI [employer] History: Reports: Other (See Below) Other OB/BYN History: had miscarriage twice Musculoskeletal History: Reports: Back Pain, Chronic Neurological History: Reports: Migraines, Seizure 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, last on was 4 months ago Psychiatric History: Reports: Anxiety, Depression Endocrine/Metabolic History: Reports: Diabetes, Type I Hematologic History: Reports: Anemia, Blood Transfusion(s) Immunologic History: Reports: None Oncologic (Cancer) History: Reports: None Dermatologic History: Reports: Other (See Below) Other Dermatologic History: possible infection from port removal R upper chest - Infectious Disease History Infectious Disease History: Reports: Chicken Pox - Past Surgical History Head Surgeries/Procedures: Reports: None HEENT Surgical History: Reports: Tonsillectomy Cardiovascular Surgical History: Reports: None Respiratory Surgical History: Reports: None GI Surgical History: Reports: Appendectomy, Cholecystectomy, ERCP Female Surgical History: Reports: None Endocrine Surgical History: Reports: None Neurological Surgical History: Reports: None Musculoskeletal Surgical History: Reports: None Oncologic Surgical History: Reports: None Dermatological Surgical History: Reports: None - History Comment History Comment: She has had over [address] scans in the last 4 years. Social & Family History - Family History Family Medical History: Noncontributory HEENT: Reports: Impaired Vision Cardiac: Reports: Heart Failure Respiratory: Reports: Asthma GI: Reports: None : Reports: Renal Disease/Insufficiency OBGYN: Reports: Musculoskeletal: Reports: Back pain, Chronic Neurological: Reports: Seizure Psychiatric: Reports: None Endocrine/Metabolic: Reports: Diabetes, Type I Hematologic: Reports: None Immunologic: Reports: None Dermatologic: Reports: None Oncologic: Reports: Breast, Cervix - Tobacco Use Smoking Status *Q: Former Smoker Years of Tobacco use: 4 Packs/Tins Daily: 1 Used Tobacco, but Quit: Yes Month Tobacco Last Used: 8 months ago Second Hand Smoke Exposure: Yes - Caffeine Use Caffeine Use: Reports: None - Alcohol Use Days Per Week of Alcohol Use: 0 - Recreational Drug Use Recreational Drug Use: No Drug Use in Last 12 Months: Yes Recreational Drug Type: Reports: Other (see below) Other Recreational Drug Type: patient verbalized she took oxymorphone prior to admission Recreational Drug Use Frequency: Patient Refuses To Answer - Living Situation & Occupation Living situation: Reports: with Significant Other, with Family, Other Occupation: Unemployed ED ROS GENERAL - Review of Systems Review Of Systems: ROS reveals no pertinent complaints other than HPI. ED EXAM, GENERAL - Physical Exam Exam: See Below Course - Vital Signs Last Recorded V/S: Last Vital Signs Temp 36.4 C 12/28/16 08:00 Pulse 97 12/28/16 08:00 Resp 20 12/28/16 08:00 BP 100/64 12/28/16 08:00 Pulse Ox 93 L 12/28/16 08:00 - Orders/Labs/Meds Labs: Laboratory Tests 12/26/16 12/26/16 12/26/16 Range/Units 07:04 07:15 07:15 WBC (4.0-11.0) K/uL RBC (4.30-5.90) M/uL Hgb (12.0-16.0) g/dL Hct (36.0-46.0) % MCV (80.0-98.0) fL MCH (27.0-32.0) pg MCHC (31.0-37.0) g/dL RDW Std Deviation (28.0-62.0) fl RDW Coeff of Zak (11.0-15.0) % Plt Count (150-400) K/uL MPV (7.40-12.00) fL Add Manual Diff Neutrophils % (Manual) (48.0-80.0) % Band Neutrophils % % Lymphocytes % (Manual) (16.0-40.0) % Monocytes % (Manual) (0.0-15.0) % Nucleated RBC % /100WBC Absolute Seg Neuts Band Neutrophils # Lymphocytes # (Manual) Monocytes # (Manual) Nucleated RBCs # K/uL ABG pH (7.35-7.45) ABG pCO2 (35-45) mmHG ABG pO2 (75-100) mmHG ABG HCO3 (22-26) mEq/L ABG Total CO2 ABG Base Excess (-2.0-2.0) Sodium (136-146) mmol/L Potassium (3.5-5.1) mmol/L Chloride (98-110) mmol/L Carbon Dioxide (21-31) mmol/L BUN (6.0-23.0) mg/dL Creatinine (0.6-1.5) mg/dL Est Cr Clr Drug Dosing Estimated GFR (MDRD) ml/min Glucose (60-110) mg/dL POC Glucose 429 H (60-110) mg/dL Calcium (8.8-10.8) mg/dL Magnesium (1.5-2.3) mEq/L Total Bilirubin (0.1-1.5) mg/dL AST (5-40) IU/L ALT (8-54) IU/L Alkaline Phosphatase (40-150) Total Protein (6.0-8.0) g/dL Albumin (3.5-5.0) g/dL Globulin (2.0-3.5) g/dL Albumin/Globulin Ratio (1.3-2.8) Amylase (10-90) U/L Lipase (7-80) U/L TSH 3rd Generation (0.47-5.0) uIU/mL Urine Color YELLOW Urine Appearance CLEAR Urine pH 6.0 (5.0-8.0) Ur Specific [place] 1.020 (1.001-1.035) Urine Protein NEGATIVE (NEGATIVE) mg/dL Urine Glucose (UA) 500 H (NEGATIVE) mg/dL Urine Ketones >=80 (NEGATIVE) mg/dL Urine Occult Blood NEGATIVE (NEGATIVE) Urine Nitrite NEGATIVE (NEGATIVE) Urine Bilirubin NEGATIVE (NEGATIVE) Urine Urobilinogen 0.2 (<2.0) EU/dL Ur Leukocyte Esterase NEGATIVE (NEGATIVE) Urine RBC 0-1 (0-2/HPF) Urine WBC 2-4 (0-5/HPF) Ur Epithelial Cells FEW (NONE-FEW) Urine Bacteria RARE (NEGATIVE) Urine Yeast FEW Urine HCG, Qual NEGATIVE (NEGATIVE) Salicylates (0-20) mg/dL Urine Opiates Screen (NEGATIVE) Ur Oxycodone Screen (NEGATIVE) Urine Methadone Screen (NEGATIVE) Acetaminophen ug/mL Ur Barbiturates Screen (NEGATIVE) Ur Phencyclidine Scrn (NEGATIVE) Ur Amphetamine Screen (NEGATIVE) U Methamphetamines Scrn (NEGATIVE) U Benzodiazepines Scrn (NEGATIVE) U Cocaine Metab Screen (NEGATIVE) U Marijuana (THC) Screen (NEGATIVE) 12/26/16 12/26/16 12/26/16 Range/Units 07:15 07:48 07:48 WBC 13.67 H (4.0-11.0) K/uL RBC 4.36 (4.30-5.90) M/uL Hgb 12.2 (12.0-16.0) g/dL Hct 38.3 (36.0-46.0) % MCV 87.8 (80.0-98.0) fL MCH 28.0 (27.0-32.0) pg MCHC 31.9 (31.0-37.0) g/dL RDW Std Deviation 51.4 (28.0-62.0) fl RDW Coeff of Zak 16 H (11.0-15.0) % Plt Count 467 H (150-400) K/uL MPV 10.60 (7.40-12.00) fL Add Manual Diff YES Neutrophils % (Manual) 71 (48.0-80.0) % Band Neutrophils % 13 % Lymphocytes % (Manual) 12 L (16.0-40.0) % Monocytes % (Manual) 4 (0.0-15.0) % Nucleated RBC % 0.0 /100WBC Absolute Seg Neuts 9.7 Band Neutrophils # 1.8 Lymphocytes # (Manual) 1.6 Monocytes # (Manual) 0.5 Nucleated RBCs # 0 K/uL ABG pH (7.35-7.45) ABG pCO2 (35-45) mmHG ABG pO2 (75-100) mmHG ABG HCO3 (22-26) mEq/L ABG Total CO2 ABG Base Excess (-2.0-2.0) Sodium 140 (136-146) mmol/L Potassium 3.4 L (3.5-5.1) mmol/L Chloride 99 (98-110) mmol/L Carbon Dioxide 6 L (21-31) mmol/L BUN 18 (6.0-23.0) mg/dL Creatinine 1.3 (0.6-1.5) mg/dL Est Cr Clr Drug Dosing TNP Estimated GFR (MDRD) 49.1 ml/min Glucose 602 H* (60-110) mg/dL POC Glucose (60-110) mg/dL Calcium 10.5 (8.8-10.8) mg/dL Magnesium (1.5-2.3) mEq/L Total Bilirubin 1.1 (0.1-1.5) mg/dL AST 45 H (5-40) IU/L ALT 104 H (8-54) IU/L Alkaline Phosphatase 225 H (40-150) Total Protein 8.4 H (6.0-8.0) g/dL Albumin 4.8 (3.5-5.0) g/dL Globulin 3.6 H (2.0-3.5) g/dL Albumin/Globulin Ratio 1.3 (1.3-2.8) Amylase (10-90) U/L Lipase (7-80) U/L TSH 3rd Generation (0.47-5.0) uIU/mL Urine Color Urine Appearance Urine pH (5.0-8.0) Ur Specific [place] (1.001-1.035) Urine Protein (NEGATIVE) mg/dL Urine Glucose (UA) (NEGATIVE) mg/dL Urine Ketones (NEGATIVE) mg/dL Urine Occult Blood (NEGATIVE) Urine Nitrite (NEGATIVE) Urine Bilirubin (NEGATIVE) Urine Urobilinogen (<2.0) EU/dL Ur Leukocyte Esterase (NEGATIVE) Urine RBC (0-2/HPF) Urine WBC (0-5/HPF) Ur Epithelial Cells (NONE-FEW) Urine Bacteria (NEGATIVE) Urine Yeast Urine HCG, Qual (NEGATIVE) Salicylates (0-20) mg/dL Urine Opiates Screen NEGATIVE (NEGATIVE) Ur Oxycodone Screen NEGATIVE (NEGATIVE) Urine Methadone Screen NEGATIVE (NEGATIVE) Acetaminophen ug/mL Ur Barbiturates Screen NEGATIVE (NEGATIVE) Ur Phencyclidine Scrn NEGATIVE (NEGATIVE) Ur Amphetamine Screen NEGATIVE (NEGATIVE) U Methamphetamines Scrn NEGATIVE (NEGATIVE) U Benzodiazepines Scrn NEGATIVE (NEGATIVE) U Cocaine Metab Screen NEGATIVE (NEGATIVE) U Marijuana (THC) Screen NEGATIVE (NEGATIVE) 12/26/16 12/26/16 12/26/16 Range/Units 07:48 07:48 07:54 WBC (4.0-11.0) K/uL RBC (4.30-5.90) M/uL Hgb (12.0-16.0) g/dL Hct (36.0-46.0) % MCV (80.0-98.0) fL MCH (27.0-32.0) pg MCHC (31.0-37.0) g/dL RDW Std Deviation (28.0-62.0) fl RDW Coeff of Zak (11.0-15.0) % Plt Count (150-400) K/uL MPV (7.40-12.00) fL Add Manual Diff Neutrophils % (Manual) (48.0-80.0) % Band Neutrophils % % Lymphocytes % (Manual) (16.0-40.0) % Monocytes % (Manual) (0.0-15.0) % Nucleated RBC % /100WBC Absolute Seg Neuts Band Neutrophils # Lymphocytes # (Manual) Monocytes # (Manual) Nucleated RBCs # K/uL ABG pH 7.353 (7.35-7.45) ABG pCO2 13 L (35-45) mmHG ABG pO2 103 H (75-100) mmHG ABG HCO3 7 L (22-26) mEq/L ABG Total CO2 6.5 ABG Base Excess -16.5 L (-2.0-2.0) Sodium (136-146) mmol/L Potassium (3.5-5.1) mmol/L Chloride (98-110) mmol/L Carbon Dioxide (21-31) mmol/L BUN (6.0-23.0) mg/dL Creatinine (0.6-1.5) mg/dL Est Cr Clr Drug Dosing Estimated GFR (MDRD) ml/min Glucose (60-110) mg/dL POC Glucose (60-110) mg/dL Calcium (8.8-10.8) mg/dL Magnesium 1.6 (1.5-2.3) mEq/L Total Bilirubin (0.1-1.5) mg/dL AST (5-40) IU/L ALT (8-54) IU/L Alkaline Phosphatase (40-150) Total Protein (6.0-8.0) g/dL Albumin (3.5-5.0) g/dL Globulin (2.0-3.5) g/dL Albumin/Globulin Ratio (1.3-2.8) Amylase 179 H (10-90) U/L Lipase < 8 (7-80) U/L TSH 3rd Generation 2.99 (0.47-5.0) uIU/mL Urine Color Urine Appearance Urine pH (5.0-8.0) Ur Specific [place] (1.001-1.035) Urine Protein (NEGATIVE) mg/dL Urine Glucose (UA) (NEGATIVE) mg/dL Urine Ketones (NEGATIVE) mg/dL Urine Occult Blood (NEGATIVE) Urine Nitrite (NEGATIVE) Urine Bilirubin (NEGATIVE) Urine Urobilinogen (<2.0) EU/dL Ur Leukocyte Esterase (NEGATIVE) Urine RBC (0-2/HPF) Urine WBC (0-5/HPF) Ur Epithelial Cells (NONE-FEW) Urine Bacteria (NEGATIVE) Urine Yeast Urine HCG, Qual (NEGATIVE) Salicylates < 5.0 (0-20) mg/dL Urine Opiates Screen (NEGATIVE) Ur Oxycodone Screen (NEGATIVE) Urine Methadone Screen (NEGATIVE) Acetaminophen < 3.0 ug/mL Ur Barbiturates Screen (NEGATIVE) Ur Phencyclidine Scrn (NEGATIVE) Ur Amphetamine Screen (NEGATIVE) U Methamphetamines Scrn (NEGATIVE) U Benzodiazepines Scrn (NEGATIVE) U Cocaine Metab Screen (NEGATIVE) U Marijuana (THC) Screen (NEGATIVE) 12/26/16 12/26/16 12/26/16 Range/Units 08:01 08:51 09:20 WBC (4.0-11.0) K/uL RBC (4.30-5.90) M/uL Hgb (12.0-16.0) g/dL Hct (36.0-46.0) % MCV (80.0-98.0) fL MCH (27.0-32.0) pg MCHC (31.0-37.0) g/dL RDW Std Deviation (28.0-62.0) fl RDW Coeff of Zak (11.0-15.0) % Plt Count (150-400) K/uL MPV (7.40-12.00) fL Add Manual Diff Neutrophils % (Manual) (48.0-80.0) % Band Neutrophils % % Lymphocytes % (Manual) (16.0-40.0) % Monocytes % (Manual) (0.0-15.0) % Nucleated RBC % /100WBC Absolute Seg Neuts Band Neutrophils # Lymphocytes # (Manual) Monocytes # (Manual) Nucleated RBCs # K/uL ABG pH (7.35-7.45) ABG pCO2 (35-45) mmHG ABG pO2 (75-100) mmHG ABG HCO3 (22-26) mEq/L ABG Total CO2 ABG Base Excess (-2.0-2.0) Sodium (136-146) mmol/L Potassium (3.5-5.1) mmol/L Chloride (98-110) mmol/L Carbon Dioxide (21-31) mmol/L BUN (6.0-23.0) mg/dL Creatinine (0.6-1.5) mg/dL Est Cr Clr Drug Dosing Estimated GFR (MDRD) ml/min Glucose (60-110) mg/dL POC Glucose 460 H 331 H 231 H (60-110) mg/dL Calcium (8.8-10.8) mg/dL Magnesium (1.5-2.3) mEq/L Total Bilirubin (0.1-1.5) mg/dL AST (5-40) IU/L ALT (8-54) IU/L Alkaline Phosphatase (40-150) Total Protein (6.0-8.0) g/dL Albumin (3.5-5.0) g/dL Globulin (2.0-3.5) g/dL Albumin/Globulin Ratio (1.3-2.8) Amylase (10-90) U/L Lipase (7-80) U/L TSH 3rd Generation (0.47-5.0) uIU/mL Urine Color Urine Appearance Urine pH (5.0-8.0) Ur Specific [place] (1.001-1.035) Urine Protein (NEGATIVE) mg/dL Urine Glucose (UA) (NEGATIVE) mg/dL Urine Ketones (NEGATIVE) mg/dL Urine Occult Blood (NEGATIVE) Urine Nitrite (NEGATIVE) Urine Bilirubin (NEGATIVE) Urine Urobilinogen (<2.0) EU/dL Ur Leukocyte Esterase (NEGATIVE) Urine RBC (0-2/HPF) Urine WBC (0-5/HPF) Ur Epithelial Cells (NONE-FEW) Urine Bacteria (NEGATIVE) Urine Yeast Urine HCG, Qual (NEGATIVE) Salicylates (0-20) mg/dL Urine Opiates Screen (NEGATIVE) Ur Oxycodone Screen (NEGATIVE) Urine Methadone Screen (NEGATIVE) Acetaminophen ug/mL Ur Barbiturates Screen (NEGATIVE) Ur Phencyclidine Scrn (NEGATIVE) Ur Amphetamine Screen (NEGATIVE) U Methamphetamines Scrn (NEGATIVE) U Benzodiazepines Scrn (NEGATIVE) U Cocaine Metab Screen (NEGATIVE) U Marijuana (THC) Screen (NEGATIVE) 12/26/16 12/26/16 Range/Units 09:50 10:21 WBC (4.0-11.0) K/uL RBC (4.30-5.90) M/uL Hgb (12.0-16.0) g/dL Hct (36.0-46.0) % MCV (80.0-98.0) fL MCH (27.0-32.0) pg MCHC (31.0-37.0) g/dL RDW Std Deviation (28.0-62.0) fl RDW Coeff of Zak (11.0-15.0) % Plt Count (150-400) K/uL MPV (7.40-12.00) fL Add Manual Diff Neutrophils % (Manual) (48.0-80.0) % Band Neutrophils % % Lymphocytes % (Manual) (16.0-40.0) % Monocytes % (Manual) (0.0-15.0) % Nucleated RBC % /100WBC Absolute Seg Neuts Band Neutrophils # Lymphocytes # (Manual) Monocytes # (Manual) Nucleated RBCs # K/uL ABG pH (7.35-7.45) ABG pCO2 (35-45) mmHG ABG pO2 (75-100) mmHG ABG HCO3 (22-26) mEq/L ABG Total CO2 ABG Base Excess (-2.0-2.0) Sodium (136-146) mmol/L Potassium (3.5-5.1) mmol/L Chloride (98-110) mmol/L Carbon Dioxide (21-31) mmol/L BUN (6.0-23.0) mg/dL Creatinine (0.6-1.5) mg/dL Est Cr Clr Drug Dosing Estimated GFR (MDRD) ml/min Glucose (60-110) mg/dL POC Glucose 171 H 110 (60-110) mg/dL Calcium (8.8-10.8) mg/dL Magnesium (1.5-2.3) mEq/L Total Bilirubin (0.1-1.5) mg/dL AST (5-40) IU/L ALT (8-54) IU/L Alkaline Phosphatase (40-150) Total Protein (6.0-8.0) g/dL Albumin (3.5-5.0) g/dL Globulin (2.0-3.5) g/dL Albumin/Globulin Ratio (1.3-2.8) Amylase (10-90) U/L Lipase (7-80) U/L TSH 3rd Generation (0.47-5.0) uIU/mL Urine Color Urine Appearance Urine pH (5.0-8.0) Ur Specific [place] (1.001-1.035) Urine Protein (NEGATIVE) mg/dL Urine Glucose (UA) (NEGATIVE) mg/dL Urine Ketones (NEGATIVE) mg/dL Urine Occult Blood (NEGATIVE) Urine Nitrite (NEGATIVE) Urine Bilirubin (NEGATIVE) Urine Urobilinogen (<2.0) EU/dL Ur Leukocyte Esterase (NEGATIVE) Urine RBC (0-2/HPF) Urine WBC (0-5/HPF) Ur Epithelial Cells (NONE-FEW) Urine Bacteria (NEGATIVE) Urine Yeast Urine HCG, Qual (NEGATIVE) Salicylates (0-20) mg/dL Urine Opiates Screen (NEGATIVE) Ur Oxycodone Screen (NEGATIVE) Urine Methadone Screen (NEGATIVE) Acetaminophen ug/mL Ur Barbiturates Screen (NEGATIVE) Ur Phencyclidine Scrn (NEGATIVE) Ur Amphetamine Screen (NEGATIVE) U Methamphetamines Scrn (NEGATIVE) U Benzodiazepines Scrn (NEGATIVE) U Cocaine Metab Screen (NEGATIVE) U Marijuana (THC) Screen (NEGATIVE) Meds: Medications Discontinued Medications Generic Name Dose Route Start Last Admin Trade Name Freq PRN Reason Stop Dose Admin Diphenhydramine HCl 25 mg 12/26/16 07:49 12/26/16 07:58 Benadryl IVPUSH 12/26/16 07:50 25 mg ONETIME ONE Administration Diphenhydramine HCl 25 mg 12/26/16 13:00 12/28/16 03:07 Benadryl IVPUSH 25 mg Q6H PRN Administration Itching Sodium Chloride 1,000 mls @ 999 mls/hr 12/26/16 07:11 12/26/16 07:32 Normal Saline IV 12/26/16 08:11 250 mls/hr STAT ONE Administration Insulin Human Regular 100 unit 100 mls @ 22.8 mls/hr 12/26/16 08:30 12/27/16 09:16 / Sodium Chloride IV 1 unit/kg/hr TITRATE PIPPA 45.6 mls/hr Protocol Titration 0.5 UNIT/KG/HR Potassium Chloride/Dextrose/Sod Cl 1,000 mls @ 150 mls/hr 12/26/16 09:30 21:33 D5 Ns With 20 Meq Kcl IV 150 mls/hr ASDIRECTED PIPPA Infusion Potassium Chloride/Sodium Chloride 1,000 mls @ 200 mls/hr 12/26/16 10:45 Normal Saline With 20 Meq Kcl IV ASDIRECTED PIPPA Potassium Chloride/Dextrose/Sod Cl 1,000 mls @ 200 mls/hr 12/26/16 21:15 05:17 D5 1/2 Ns W/ 20 Meq/L Kcl IV 200 mls/hr ASDIRECTED PIPPA Infusion Magnesium Sulfate 1 gm/ Sodium 52 mls @ 52 mls/hr 12/26/16 21:45 12/26/16 22: 00 Chloride IV 12/26/16 22:44 Not Given ONETIME ONE Magnesium Sulfate 2 gm/ Premix 50 mls @ 50 mls/hr 12/26/16 21:47 12/26/16 22: 10 IV 12/26/16 22:46 50 mls/hr ONETIME ONE Administration Dextrose/Water 1,000 mls @ 250 mls/hr 12/27/16 05:00 12/27/16 09:22 Dextrose 5% In Water IV 250 mls/hr ASDIRECTED [facility] Administration Potassium Phosphate 30 mmole/ 260 mls @ 43 mls/hr 12/27/16 05:15 12/27/16 05: 58 Sodium Chloride IV 12/27/16 11:17 43 mls/hr ONETIME ONE Administration Sodium Chloride 1,000 mls @ 75 mls/hr 12/27/16 09:45 12/27/16 20:20 Sodium Chloride 0.45% IV 75 mls/hr ASDIRECTED [facility] Administration Insulin Aspart 0 unit 12/27/16 10:00 12/27/16 10:11 Novolog SUBCUT 3 units Q4H [facility] Administration Protocol Insulin Aspart 0 unit 12/27/16 18:00 12/28/16 00:27 Novolog SUBCUT Not Given QID [facility] Protocol Insulin Aspart 0 unit 12/28/16 02:00 12/28/16 06:29 Novolog SUBCUT 3 units ACBED [facility] Administration Protocol Insulin Detemir 15 unit 12/27/16 21:00 12/27/16 20:16 Levemir SUBCUT 15 units BID [facility] Administration Insulin Detemir 10 unit 12/28/16 09:00 Levemir SUBCUT BID [facility] Insulin Human Regular 10 unit 12/26/16 07:11 12/26/16 07:39 Novolin R IVPUSH 12/26/16 07:12 Not Given ONETIME ONE Protocol Insulin Human Regular 10 unit 12/26/16 07:11 12/26/16 07:23 Novolin R SUBCUT 12/26/16 07:12 10 units ONETIME ONE Administration Protocol Insulin Human Regular 10 unit 12/26/16 08:08 12/26/16 08:14 Novolin R IVPUSH 12/26/16 08:09 10 units ONETIME ONE Administration Protocol Insulin Human Regular 5 unit 12/26/16 11:28 12/26/16 11:56 Novolin R SUBCUT 12/26/16 11:29 Not Given NOW STA Protocol Lorazepam 0.5 mg 12/27/16 12:20 Ativan PO BID PRN Anxiety Magnesium Sulfate 1 gm 12/26/16 21:15 12/26/16 21:58 Magnesium Sulfate 50% IM 12/26/16 21:16 Not Given ONETIME ONE Morphine Sulfate 2 mg 12/26/16 08:23 12/26/16 08:30 Morphine IV 12/26/16 08:24 2 mg ONETIME ONE Administration Morphine Sulfate 5 mg 12/26/16 10:48 12/27/16 09:02 Morphine IVPUSH 12/27/16 10:48 5 mg Q2H PRN Administration Pain (severe 7-10) Morphine Sulfate 30 mg 12/27/16 12:23 12/28/16 07:53 Morphine PO 30 mg Q4H PRN Administration Pain Non-Formulary Medication 30 mg 12/27/16 15:00 Morphine PO 5XDAY PIPPA Ondansetron HCl 8 mg 12/26/16 07:27 12/26/16 07:39 Zofran IVPUSH 12/26/16 07:28 8 mg ONETIME ONE Administration Ondansetron HCl 4 mg 12/26/16 11:07 12/26/16 11:11 Zofran IVPUSH 12/26/16 11:08 4 mg ONETIME ONE Administration Ondansetron HCl 4 mg 12/26/16 14:42 12/27/16 09:04 Zofran IVPUSH 4 mg Q4H PRN Administration Nausea/Vomiting Ondansetron HCl 8 mg 12/27/16 12:20 12/28/16 03:09 Zofran Odt PO 8 mg QID PRN Administration Nausea/Vomiting Potassium Phosphate 30 mmole 12/27/16 05:00 Potassium Phosphates IV 12/27/16 05:01 ONETIME ONE Promethazine HCl 25 mg 12/27/16 12:20 Phenergan PO Q6H PRN Nausea/Vomiting Departure - Departure Time of Disposition: 07:56 Disposition: Admitted As Inpatient 65 Condition: Good Clinical Impression: DKA (diabetic ketoacidoses) Qualifiers: Diabetes mellitus type: type 1 Diabetes mellitus complication detail: without coma Qualified Code(s): E10.10 - Type 1 diabetes mellitus with ketoacidosis without coma - Discharge Information
[2016-12-26] MEDS ORDERED: Ondansetron 4 MG/2 ML SDV IVPUSH ONE ×2 (07:27→11:07)
[2016-12-26] MEDS ORDERED: diphenhydrAMINE 50 MG/ML SDV IVPUSH ONE (07:49)
[2016-12-26 08:18] LABS: CHLORIDE,CL 99 mmol/L (98-110); SODIUM,NA 140 mmol/L (136-146)
[2016-12-26] MEDS ORDERED: Morphine 10 MG/ML Syringe IV ONE (08:23)
--- NOTE | 2016-12-26 08:27 | CR ---
EXAMINATION: Portable chest radiograph. HISTORY: DKA. FINDINGS: The trachea is midline. The cardiomediastinal silhouette is within normal limits. No pulmonary infil trates, effusions or pneumothorax. Osseous structures appear unremarkable. IMPRESSION: No acute cardiopulmonary process.
[2016-12-26 08:34] LABS: ACETAMINOPHEN < 3.0 ug/mL
[2016-12-26] MEDS: Dextrose 5%-0.9% NaCl with KCl 1,000 ML IV SCH ×2 (10:17→17:09)
--- NOTE | 2016-12-26 10:40 | PCM.HP ---
H&P History of Present Illness - General Date of Service: 12/26/16 Admit Problem/Dx: Admission Diagnosis/Problem Admission Diagnosis/Problem Diabetic ketoacidosis Source of Information: Patient, Provider, RN - History of Present Illness Initial Comments - Free Text/Narative: she presented to the ED with a one week history of vomiting and abdominal pain. She has gastroparesis. She was diagnosed with a duodenal ulcer in the past by EGD but the follow up EGD did not occur. I spoke with her primary care physician, Dr Black, who recommends consideration of GI follow up after discharge. She was seen in the ED and was noted to have an elevated blood sugar and diabetic ketoacidosis.She was recommended for hospital admission. no pain verbalized Pain Score (Numeric/FACES): 0 - Related Data Allergies/Adverse Reactions: Allergies Allergy/AdvReac Type Severity Reaction Status Date / Time acetaminophen [From Tylenol] Allergy Liver Verified 12/26/16 07:06 Problems amoxicillin Allergy Hives Verified 12/26/16 07:06 amoxicillin trihydrate Allergy Hives Verified 12/26/16 07:06 [From Amoxil] ibuprofen Allergy Liver Verified 12/26/16 07:06 Problems ketorolac tromethamine Allergy Hives Verified 12/26/16 07:06 [From Toradol] metoclopramide HCl Allergy Airway Verified 12/26/16 07:06 [From Reglan] Tightness tramadol Allergy Hives Verified 12/26/16 07:06 haldol Allergy Swelling Uncoded 12/26/16 07:06 Home Medications: Home Meds Insulin Detemir [Levemir] 15 unit SUBCUT BID 03/24/16 [History] LORazepam [Ativan] 0.5 mg PO BID PRN 03/24/16 [History] Ondansetron [Ondansetron ODT] 8 mg PO QID PRN 04/19/16 [History] Insulin Aspart [Novolog Flexpen] 16 - 20 unit SUBCUT QIDACANDBED 05/15/16 [ History] Promethazine HCl 25 mg PO Q6H PRN 08/24/16 [History] Morphine 30 mg PO 5XDAY 11/30/16 [History] Past Medical History - Past Health History Medical/Surgical History: Denies Medical/Surgical History HEENT History: Reports: Allergic Rhinitis Other HEENT History: dental abcess Cardiovascular History: Reports: None. 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 (See Below) (she has not had a menses for more than one year) Other OB/BYN History: had miscarriage twice Musculoskeletal History: Reports: Back Pain, Chronic Neurological History: Reports: Migraines, Seizure 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, last on was 4 months ago Psychiatric History: Reports: Anxiety, Depression Endocrine/Metabolic History: Reports: Diabetes, Type I Hematologic History: Reports: Anemia, Blood Transfusion(s) Immunologic History: Reports: None Oncologic (Cancer) History: Reports: None Dermatologic History: Reports: Other (See Below) Other Dermatologic History: possible infection from port removal R upper chest - Infectious Disease History Infectious Disease History: Reports: Chicken Pox - Past Surgical History Head Surgeries/Procedures: Reports: None HEENT Surgical History: Reports: Tonsillectomy Cardiovascular Surgical History: Reports: None Respiratory Surgical History: Reports: None GI Surgical History: Reports: Appendectomy, Cholecystectomy, ERCP Female Surgical History: Reports: None Endocrine Surgical History: Reports: None Neurological Surgical History: Reports: None Musculoskeletal Surgical History: Reports: None Oncologic Surgical History: Reports: None Dermatological Surgical History: Reports: None Other Surgical History Comment: venous access port placed and then later removed due to infection. - History Comment History Comment: She has had over [address] scans in the last 4 years. Social & Family History - Family History Family Medical History: Noncontributory HEENT: Reports: Impaired Vision Cardiac: Reports: Heart Failure Respiratory: Reports: Asthma GI: Reports: None : Reports: Renal Disease/Insufficiency OBGYN: Reports: Musculoskeletal: Reports: Back pain, Chronic Neurological: Reports: Seizure Psychiatric: Reports: None Endocrine/Metabolic: Reports: Diabetes, Type I Hematologic: Reports: None Immunologic: Reports: None Dermatologic: Reports: None Oncologic: Reports: Breast, Cervix - Tobacco Use Smoking Status *Q: Former Smoker Years of Tobacco use: 4 Packs/Tins Daily: 1 Used Tobacco, but Quit: Yes Month Tobacco Last Used: 8 months ago Second Hand Smoke Exposure: Yes - Caffeine Use Caffeine Use: Reports: None - Alcohol Use Days Per Week of Alcohol Use: 0 Alcohol Use Comment: she does not drink alcohol - Recreational Drug Use Recreational Drug Use: No Drug Use in Last 12 Months: Yes Recreational Drug Type: Reports: Other (see below) Other Recreational Drug Type: patient verbalized she took oxymorphone prior to admission Recreational Drug Use Frequency: Patient Refuses To Answer - Living Situation & Occupation Living situation: Reports: with Significant Other, with Family, Other Occupation: Unemployed Social History Comment: she is currently living in an apartment with her father and fiance H&P Review of Systems - Review of Systems: Review Of Systems: See Below General: Reports: Chills, Fatigue Pulmonary: Denies: Shortness of Breath, Wheezing, Cough, Sputum Cardiovascular: Reports: Other (diffuse body aches) Gastrointestinal: Reports: Abdominal Pain. Denies: Bloody Stool, Hematemesis, Hematochezia Genitourinary: Denies: Dysuria, Hematuria Exam - Exam Exam: See Below - Vital Signs Vital Signs: Last Vital Signs Temp 97.5 F 12/26/16 07:07 Pulse 122 H 12/26/16 10:15 Resp 18 12/26/16 10:15 BP 129/68 12/26/16 10:15 Pulse Ox 98 12/26/16 10:15 Weight: 45.6 kg - Exam General: Alert, Cooperative HEENT: No: Mucosa Moist & Pettit (dry oral mucosa; gingival recession) Neck: Supple, Trachea Midline Lungs: Clear to Auscultation, Normal Respiratory Effort Cardiovascular: Regular Rate, Regular Rhythm Abdomen: Guarding, Tenderness (mild to moderate diffuse tenderness) (Female) Exam: Deferred Rectal (Female) Exam: Deferred Extremities: No: Cyanosis, Edema Neurological: Cranial Nerves Intact, Normal Speech Neuro Extensive - Motor, Sensory, Reflexes: No: Facial palsy (L), Facial Palsy ( R), Hemeplagia (R), Hemeplagia (L) Psychiatric: No: Agitated, Hallucinations Physical Exam Comments:: she appears uncomfortable; she is rocking back and forth, with her hands over her abdomen. - Patient Data Lab Results Last 24 hrs: Laboratory Results - last 24 hr 06/27/17 06/27/17 06/27/17 Range/Units 07:04 07:15 07:15 WBC (4.0-11.0) K/uL RBC (4.30-5.90) M/uL Hgb (12.0-16.0) g/dL Hct (36.0-46.0) % MCV (80.0-98.0) fL MCH (27.0-32.0) pg MCHC (31.0-37.0) g/dL RDW Std Deviation (28.0-62.0) fl RDW Coeff of Zak (11.0-15.0) % Plt Count (150-400) K/uL MPV (7.40-12.00) fL Add Manual Diff Neutrophils % (Manual) (48.0-80.0) % Band Neutrophils % % Lymphocytes % (Manual) (16.0-40.0) % Monocytes % (Manual) (0.0-15.0) % Nucleated RBC % /100WBC Absolute Seg Neuts Band Neutrophils # Lymphocytes # (Manual) Monocytes # (Manual) Nucleated RBCs # K/uL ABG pH (7.35-7.45) ABG pCO2 (35-45) mmHG ABG pO2 (75-100) mmHG ABG HCO3 (22-26) mEq/L ABG Total CO2 ABG Base Excess (-2.0-2.0) Sodium (136-146) mmol/L Potassium (3.5-5.1) mmol/L Chloride (98-110) mmol/L Carbon Dioxide (21-31) mmol/L BUN (6.0-23.0) mg/dL Creatinine (0.6-1.5) mg/dL Est Cr Clr Drug Dosing Estimated GFR (MDRD) ml/min Glucose (60-110) mg/dL POC Glucose 429 H (60-110) mg/dL Calcium (8.8-10.8) mg/dL Total Bilirubin (0.1-1.5) mg/dL AST (5-40) IU/L ALT (8-54) IU/L Alkaline Phosphatase (40-150) Total Protein (6.0-8.0) g/dL Albumin (3.5-5.0) g/dL Globulin (2.0-3.5) g/dL Albumin/Globulin Ratio (1.3-2.8) Amylase (10-90) U/L Lipase (7-80) U/L TSH 3rd Generation (0.47-5.0) uIU/mL Urine Color YELLOW Urine Appearance CLEAR Urine pH 6.0 (5.0-8.0) Ur Specific [place] 1.020 (1.001-1.035) Urine Protein NEGATIVE (NEGATIVE) mg/dL Urine Glucose (UA) 500 H (NEGATIVE) mg/dL Urine Ketones >=80 (NEGATIVE) mg/dL Urine Occult Blood NEGATIVE (NEGATIVE) Urine Nitrite NEGATIVE (NEGATIVE) Urine Bilirubin NEGATIVE (NEGATIVE) Urine Urobilinogen 0.2 (<2.0) EU/dL Ur Leukocyte Esterase NEGATIVE (NEGATIVE) Urine RBC 0-1 (0-2/HPF) Urine WBC 2-4 (0-5/HPF) Ur Epithelial Cells FEW (NONE-FEW) Urine Bacteria RARE (NEGATIVE) Urine Yeast FEW Urine HCG, Qual NEGATIVE (NEGATIVE) Salicylates (0-20) mg/dL Urine Opiates Screen (NEGATIVE) Ur Oxycodone Screen (NEGATIVE) Urine Methadone Screen (NEGATIVE) Acetaminophen ug/mL Ur Barbiturates Screen (NEGATIVE) Ur Phencyclidine Scrn (NEGATIVE) Ur Amphetamine Screen (NEGATIVE) U Methamphetamines Scrn (NEGATIVE) U Benzodiazepines Scrn (NEGATIVE) U Cocaine Metab Screen (NEGATIVE) U Marijuana (THC) Screen (NEGATIVE) 12/26/16 12/26/16 12/26/16 Range/Units 07:15 07:48 07:48 WBC 13.67 H (4.0-11.0) K/uL RBC 4.36 (4.30-5.90) M/uL Hgb 12.2 (12.0-16.0) g/dL Hct 38.3 (36.0-46.0) % MCV 87.8 (80.0-98.0) fL MCH 28.0 (27.0-32.0) pg MCHC 31.9 (31.0-37.0) g/dL RDW Std Deviation 51.4 (28.0-62.0) fl RDW Coeff of Zak 16 H (11.0-15.0) % Plt Count 467 H (150-400) K/uL MPV 10.60 (7.40-12.00) fL Add Manual Diff YES Neutrophils % (Manual) 71 (48.0-80.0) % Band Neutrophils % 13 % Lymphocytes % (Manual) 12 L (16.0-40.0) % Monocytes % (Manual) 4 (0.0-15.0) % Nucleated RBC % 0.0 /100WBC Absolute Seg Neuts 9.7 Band Neutrophils # 1.8 Lymphocytes # (Manual) 1.6 Monocytes # (Manual) 0.5 Nucleated RBCs # 0 K/uL ABG pH (7.35-7.45) ABG pCO2 (35-45) mmHG ABG pO2 (75-100) mmHG ABG HCO3 (22-26) mEq/L ABG Total CO2 ABG Base Excess (-2.0-2.0) Sodium 140 (136-146) mmol/L Potassium 3.4 L (3.5-5.1) mmol/L Chloride 99 (98-110) mmol/L Carbon Dioxide 6 L (21-31) mmol/L BUN 18 (6.0-23.0) mg/dL Creatinine 1.3 (0.6-1.5) mg/dL Est Cr Clr Drug Dosing TNP Estimated GFR (MDRD) 49.1 ml/min Glucose 602 H* (60-110) mg/dL POC Glucose (60-110) mg/dL Calcium 10.5 (8.8-10.8) mg/dL Total Bilirubin 1.1 (0.1-1.5) mg/dL AST 45 H (5-40) IU/L ALT 104 H (8-54) IU/L Alkaline Phosphatase 225 H (40-150) Total Protein 8.4 H (6.0-8.0) g/dL Albumin 4.8 (3.5-5.0) g/dL Globulin 3.6 H (2.0-3.5) g/dL Albumin/Globulin Ratio 1.3 (1.3-2.8) Amylase (10-90) U/L Lipase (7-80) U/L TSH 3rd Generation (0.47-5.0) uIU/mL Urine Color Urine Appearance Urine pH (5.0-8.0) Ur Specific [place] (1.001-1.035) Urine Protein (NEGATIVE) mg/dL Urine Glucose (UA) (NEGATIVE) mg/dL Urine Ketones (NEGATIVE) mg/dL Urine Occult Blood (NEGATIVE) Urine Nitrite (NEGATIVE) Urine Bilirubin (NEGATIVE) Urine Urobilinogen (<2.0) EU/dL Ur Leukocyte Esterase (NEGATIVE) Urine RBC (0-2/HPF) Urine WBC (0-5/HPF) Ur Epithelial Cells (NONE-FEW) Urine Bacteria (NEGATIVE) Urine Yeast Urine HCG, Qual (NEGATIVE) Salicylates (0-20) mg/dL Urine Opiates Screen NEGATIVE (NEGATIVE) Ur Oxycodone Screen NEGATIVE (NEGATIVE) Urine Methadone Screen NEGATIVE (NEGATIVE) Acetaminophen ug/mL Ur Barbiturates Screen NEGATIVE (NEGATIVE) Ur Phencyclidine Scrn NEGATIVE (NEGATIVE) Ur Amphetamine Screen NEGATIVE (NEGATIVE) U Methamphetamines Scrn NEGATIVE (NEGATIVE) U Benzodiazepines Scrn NEGATIVE (NEGATIVE) U Cocaine Metab Screen NEGATIVE (NEGATIVE) U Marijuana (THC) Screen NEGATIVE (NEGATIVE) 12/26/16 12/26/16 12/26/16 Range/Units 07:48 07:54 08:01 WBC (4.0-11.0) K/uL RBC (4.30-5.90) M/uL Hgb (12.0-16.0) g/dL Hct (36.0-46.0) % MCV (80.0-98.0) fL MCH (27.0-32.0) pg MCHC (31.0-37.0) g/dL RDW Std Deviation (28.0-62.0) fl RDW Coeff of Zak (11.0-15.0) % Plt Count (150-400) K/uL MPV (7.40-12.00) fL Add Manual Diff Neutrophils % (Manual) (48.0-80.0) % Band Neutrophils % % Lymphocytes % (Manual) (16.0-40.0) % Monocytes % (Manual) (0.0-15.0) % Nucleated RBC % /100WBC Absolute Seg Neuts Band Neutrophils # Lymphocytes # (Manual) Monocytes # (Manual) Nucleated RBCs # K/uL ABG pH 7.353 (7.35-7.45) ABG pCO2 13 L (35-45) mmHG ABG pO2 103 H (75-100) mmHG ABG HCO3 7 L (22-26) mEq/L ABG Total CO2 6.5 ABG Base Excess -16.5 L (-2.0-2.0) Sodium (136-146) mmol/L Potassium (3.5-5.1) mmol/L Chloride (98-110) mmol/L Carbon Dioxide (21-31) mmol/L BUN (6.0-23.0) mg/dL Creatinine (0.6-1.5) mg/dL Est Cr Clr Drug Dosing Estimated GFR (MDRD) ml/min Glucose (60-110) mg/dL POC Glucose 460 H (60-110) mg/dL Calcium (8.8-10.8) mg/dL Total Bilirubin (0.1-1.5) mg/dL AST (5-40) IU/L ALT (8-54) IU/L Alkaline Phosphatase (40-150) Total Protein (6.0-8.0) g/dL Albumin (3.5-5.0) g/dL Globulin (2.0-3.5) g/dL Albumin/Globulin Ratio (1.3-2.8) Amylase 179 H (10-90) U/L Lipase < 8 (7-80) U/L TSH 3rd Generation 2.99 (0.47-5.0) uIU/mL Urine Color Urine Appearance Urine pH (5.0-8.0) Ur Specific [place] (1.001-1.035) Urine Protein (NEGATIVE) mg/dL Urine Glucose (UA) (NEGATIVE) mg/dL Urine Ketones (NEGATIVE) mg/dL Urine Occult Blood (NEGATIVE) Urine Nitrite (NEGATIVE) Urine Bilirubin (NEGATIVE) Urine Urobilinogen (<2.0) EU/dL Ur Leukocyte Esterase (NEGATIVE) Urine RBC (0-2/HPF) Urine WBC (0-5/HPF) Ur Epithelial Cells (NONE-FEW) Urine Bacteria (NEGATIVE) Urine Yeast Urine HCG, Qual (NEGATIVE) Salicylates < 5.0 (0-20) mg/dL Urine Opiates Screen (NEGATIVE) Ur Oxycodone Screen (NEGATIVE) Urine Methadone Screen (NEGATIVE) Acetaminophen < 3.0 ug/mL Ur Barbiturates Screen (NEGATIVE) Ur Phencyclidine Scrn (NEGATIVE) Ur Amphetamine Screen (NEGATIVE) U Methamphetamines Scrn (NEGATIVE) U Benzodiazepines Scrn (NEGATIVE) U Cocaine Metab Screen (NEGATIVE) U Marijuana (THC) Screen (NEGATIVE) 12/26/16 12/26/16 12/26/16 Range/Units 08:51 09:20 09:50 WBC (4.0-11.0) K/uL RBC (4.30-5.90) M/uL Hgb (12.0-16.0) g/dL Hct (36.0-46.0) % MCV (80.0-98.0) fL MCH (27.0-32.0) pg MCHC (31.0-37.0) g/dL RDW Std Deviation (28.0-62.0) fl RDW Coeff of Zak (11.0-15.0) % Plt Count (150-400) K/uL MPV (7.40-12.00) fL Add Manual Diff Neutrophils % (Manual) (48.0-80.0) % Band Neutrophils % % Lymphocytes % (Manual) (16.0-40.0) % Monocytes % (Manual) (0.0-15.0) % Nucleated RBC % /100WBC Absolute Seg Neuts Band Neutrophils # Lymphocytes # (Manual) Monocytes # (Manual) Nucleated RBCs # K/uL ABG pH (7.35-7.45) ABG pCO2 (35-45) mmHG ABG pO2 (75-100) mmHG ABG HCO3 (22-26) mEq/L ABG Total CO2 ABG Base Excess (-2.0-2.0) Sodium (136-146) mmol/L Potassium (3.5-5.1) mmol/L Chloride (98-110) mmol/L Carbon Dioxide (21-31) mmol/L BUN (6.0-23.0) mg/dL Creatinine (0.6-1.5) mg/dL Est Cr Clr Drug Dosing Estimated GFR (MDRD) ml/min Glucose (60-110) mg/dL POC Glucose 331 H 231 H 171 H (60-110) mg/dL Calcium (8.8-10.8) mg/dL Total Bilirubin (0.1-1.5) mg/dL AST (5-40) IU/L ALT (8-54) IU/L Alkaline Phosphatase (40-150) Total Protein (6.0-8.0) g/dL Albumin (3.5-5.0) g/dL Globulin (2.0-3.5) g/dL Albumin/Globulin Ratio (1.3-2.8) Amylase (10-90) U/L Lipase (7-80) U/L TSH 3rd Generation (0.47-5.0) uIU/mL Urine Color Urine Appearance Urine pH (5.0-8.0) Ur Specific [place] (1.001-1.035) Urine Protein (NEGATIVE) mg/dL Urine Glucose (UA) (NEGATIVE) mg/dL Urine Ketones (NEGATIVE) mg/dL Urine Occult Blood (NEGATIVE) Urine Nitrite (NEGATIVE) Urine Bilirubin (NEGATIVE) Urine Urobilinogen (<2.0) EU/dL Ur Leukocyte Esterase (NEGATIVE) Urine RBC (0-2/HPF) Urine WBC (0-5/HPF) Ur Epithelial Cells (NONE-FEW) Urine Bacteria (NEGATIVE) Urine Yeast Urine HCG, Qual (NEGATIVE) Salicylates (0-20) mg/dL Urine Opiates Screen (NEGATIVE) Ur Oxycodone Screen (NEGATIVE) Urine Methadone Screen (NEGATIVE) Acetaminophen ug/mL Ur Barbiturates Screen (NEGATIVE) Ur Phencyclidine Scrn (NEGATIVE) Ur Amphetamine Screen (NEGATIVE) U Methamphetamines Scrn (NEGATIVE) U Benzodiazepines Scrn (NEGATIVE) U Cocaine Metab Screen (NEGATIVE) U Marijuana (THC) Screen (NEGATIVE) 12/26/16 Range/Units 10:21 WBC (4.0-11.0) K/uL RBC (4.30-5.90) M/uL Hgb (12.0-16.0) g/dL Hct (36.0-46.0) % MCV (80.0-98.0) fL MCH (27.0-32.0) pg MCHC (31.0-37.0) g/dL RDW Std Deviation (28.0-62.0) fl RDW Coeff of Zak (11.0-15.0) % Plt Count (150-400) K/uL MPV (7.40-12.00) fL Add Manual Diff Neutrophils % (Manual) (48.0-80.0) % Band Neutrophils % % Lymphocytes % (Manual) (16.0-40.0) % Monocytes % (Manual) (0.0-15.0) % Nucleated RBC % /100WBC Absolute Seg Neuts Band Neutrophils # Lymphocytes # (Manual) Monocytes # (Manual) Nucleated RBCs # K/uL ABG pH (7.35-7.45) ABG pCO2 (35-45) mmHG ABG pO2 (75-100) mmHG ABG HCO3 (22-26) mEq/L ABG Total CO2 ABG Base Excess (-2.0-2.0) Sodium (136-146) mmol/L Potassium (3.5-5.1) mmol/L Chloride (98-110) mmol/L Carbon Dioxide (21-31) mmol/L BUN (6.0-23.0) mg/dL Creatinine (0.6-1.5) mg/dL Est Cr Clr Drug Dosing Estimated GFR (MDRD) ml/min Glucose (60-110) mg/dL POC Glucose 110 (60-110) mg/dL Calcium (8.8-10.8) mg/dL Total Bilirubin (0.1-1.5) mg/dL AST (5-40) IU/L ALT (8-54) IU/L Alkaline Phosphatase (40-150) Total Protein (6.0-8.0) g/dL Albumin (3.5-5.0) g/dL Globulin (2.0-3.5) g/dL Albumin/Globulin Ratio (1.3-2.8) Amylase (10-90) U/L Lipase (7-80) U/L TSH 3rd Generation (0.47-5.0) uIU/mL Urine Color Urine Appearance Urine pH (5.0-8.0) Ur Specific [place] (1.001-1.035) Urine Protein (NEGATIVE) mg/dL Urine Glucose (UA) (NEGATIVE) mg/dL Urine Ketones (NEGATIVE) mg/dL Urine Occult Blood (NEGATIVE) Urine Nitrite (NEGATIVE) Urine Bilirubin (NEGATIVE) Urine Urobilinogen (<2.0) EU/dL Ur Leukocyte Esterase (NEGATIVE) Urine RBC (0-2/HPF) Urine WBC (0-5/HPF) Ur Epithelial Cells (NONE-FEW) Urine Bacteria (NEGATIVE) Urine Yeast Urine HCG, Qual (NEGATIVE) Salicylates (0-20) mg/dL Urine Opiates Screen (NEGATIVE) Ur Oxycodone Screen (NEGATIVE) Urine Methadone Screen (NEGATIVE) Acetaminophen ug/mL Ur Barbiturates Screen (NEGATIVE) Ur Phencyclidine Scrn (NEGATIVE) Ur Amphetamine Screen (NEGATIVE) U Methamphetamines Scrn (NEGATIVE) U Benzodiazepines Scrn (NEGATIVE) U Cocaine Metab Screen (NEGATIVE) U Marijuana (THC) Screen (NEGATIVE) Result Diagrams: 12/26/16 07:48 12/26/16 07:48 *Q Meaningful Use (ADM) - VTE *Q VTE Criteria *Q: - Stroke *Q Stroke Criteria *Q: - AMI *Q AMI Criteria *Q: - Problem List (1) Duodenal ulcer disease SNOMED Code(s): 53293860 ICD Code: K26.9 - DUODENAL ULCER, UNSP ACUTE OR CHRONIC, W/O HEMOR OR PERF Status: Acute Current Visit: Yes (2) Abdominal pain SNOMED Code(s): 17643874 ICD Code: R10.9 - UNSPECIFIED ABDOMINAL PAIN Status: Acute Current Visit : No Qualifiers: Abdominal location: unspecified location Qualified Code(s): R10.9 - Unspecified abdominal pain (3) Chronic abdominal pain SNOMED Code(s): 632868553 ICD Code: R10.9 - UNSPECIFIED ABDOMINAL PAIN; G89.29 - OTHER CHRONIC PAIN Status: Acute Current Visit: No (4) DKA (diabetic ketoacidoses) SNOMED Code(s): 667373125, 914797614 ICD Code: E13.10 - OTH DIABETES MELLITUS WITH KETOACIDOSIS WITHOUT COMA Status: Acute Current Visit: No (5) Elevated liver enzymes SNOMED Code(s): 621080702, 641207181 ICD Code: R74.8 - ABNORMAL LEVELS OF OTHER SERUM ENZYMES Status: Acute Current Visit: No (6) Gastroparesis SNOMED Code(s): 892547265 ICD Code: K31.84 - GASTROPARESIS Status: Acute Current Visit: No (7) Seizure disorder SNOMED Code(s): 459849441 ICD Code: G40.909 - EPILEPSY, UNSP, NOT INTRACTABLE, WITHOUT STATUS EPILEPTICUS Status: Chronic Current Visit: No Problem List Initiated/Reviewed/Updated: Yes Orders Last 24hrs: Active Orders 24 hr Category Date Time Status Admission Diagnosis [ADT] Stat ADT 12/26/16 10:31 Ordered Admission Status [Patient Status] [ADT] Stat ADT 12/26/16 10:31 Active EKG 12 Lead [EKG Documentation Completion] [RC] STAT Care 12/26/16 07:14 Active Dextrose 5%-0.9% NaCl with KCl [D5 NS with 20 mEq KCl] Med 12/26/16 09:30 Active 1,000 ml IV ASDIRECTED Insulin Regular, Human [NovoLIN R] 100 unit Med 12/26/16 08:30 Active Sodium Chloride 0.9% [Normal Saline] 99 ml IV TITRATE Medication Orders Insulin Human Regular 100 unit (/ Sodium Chloride) 100 mls @ 22.8 mls/hr IV TITRATE PIPPA; 0.5 UNIT/KG/HR PRN Reason: Protocol Last Admin: 12/26/16 08:49 Dose: 0.5 unit/kg/hr, 22.8 mls/hr Potassium Chloride/Dextrose/Sod Cl (D5 Ns With 20 Meq Kcl) 1,000 mls @ 150 mls/ hr IV ASDIRECTED PIPPA Last Admin: 12/26/16 10:17 Dose: 150 mls/hr Assessment/Plan Comment:: see orders ICU I spoke with her primary attending physician , Dr Black. David Valentine MD
[2016-12-26] MEDS ORDERED: NS + KCl 20mEq/L 1,000 ML IV SCH (10:45)
[2016-12-26] MEDS ORDERED: Insulin Regular, Human 100 Units/ML 10 ML Vial SUBCUT STA (11:28)
[2016-12-26 11:39] LABS: CHLORIDE,CL 108 mmol/L (98-110); SODIUM,NA 143 mmol/L (136-146)
[2016-12-26] MEDS: Morphine 10 MG/ML Syringe IVPUSH PRN ×4 (12:11→22:10)
[2016-12-26] MEDS: diphenhydrAMINE 50 MG/ML SDV IVPUSH PRN ×2 (13:13→23:09)
[2016-12-26] MEDS: Ondansetron 4 MG/2 ML SDV IVPUSH PRN ×2 (14:54→21:35)
[2016-12-26 16:50] LABS: CHLORIDE,CL 110 mmol/L (98-110); SODIUM,NA 143 mmol/L (136-146)
[2016-12-26 20:35] LABS: CHLORIDE,CL 111 mmol/L (98-110); SODIUM,NA 141 mmol/L (136-146)
[2016-12-26] MEDS ORDERED: Magnesium Sulfate (4.06 MEQ/ML) 1 GM/2 ML SDV IM ONE (21:15)
[2016-12-26] MEDS: D5 1/2 NS w/ 20 mEq/L KCl 1,000 ML IV SCH (21:35)
[2016-12-26] MEDS ORDERED: Magnesium Sulfate/Water 2 GM in Premix Bag 1 BAG IV ONE (21:47)
[2016-12-27 00:25] LABS: CHLORIDE,CL 111 mmol/L (98-110); SODIUM,NA 140 mmol/L (136-146)
[2016-12-27] MEDS: D5 1/2 NS w/ 20 mEq/L KCl 1,000 ML IV SCH (02:44)
[2016-12-27] MEDS: Morphine 10 MG/ML Syringe IVPUSH PRN ×2 (02:45→09:02)
[2016-12-27 04:42] LABS: CHLORIDE,CL 113 mmol/L (98-110); SODIUM,NA 141 mmol/L (136-146)
[2016-12-27] MEDS ORDERED: Potassium Phosphates 3 mMole/ML 15 ML SDV IV ONE (05:00)
[2016-12-27] MEDS ORDERED: Potassium Phosphates 30 MMOLE in Sodium Chloride 0.9% 250 ML IV ONE (05:15)
[2016-12-27] MEDS: Dextrose 5% in Water 1,000 ML IV SCH ×2 (05:17→09:22)
[2016-12-27] MEDS: Ondansetron 4 MG/2 ML SDV IVPUSH PRN (09:04)
[2016-12-27] MEDS: diphenhydrAMINE 50 MG/ML SDV IVPUSH PRN ×2 (09:10→20:30)
[2016-12-27] MEDS ORDERED: Insulin Aspart 100 Units/ML 3 ML Pen SUBCUT SCH (10:00)
[2016-12-27] MEDS: Sodium Chloride 0.45% 1,000 ML IV SCH ×2 (10:12→20:20)
--- NOTE | 2016-12-27 12:16 | PCM.PN ---
- General Info Date of Service: 12/27/16 Subjective Update: She feels a bit better. No vomiting. She is eating lunch . - Patient Data Vitals - most recent: Last Vital Signs Temp 97.3 F 12/27/16 08:00 Pulse 110 H 12/26/16 11:40 Resp 19 12/27/16 11:00 BP 100/62 12/27/16 11:00 Pulse Ox 98 12/27/16 11:00 Weight - most recent: 49.5 kg I&O - last 24 hours: Intake & Output 12/26/16 12/27/16 12/27/16 22:59 06:59 14:59 Intake Total 2140 2260 Output Total 150 900 Balance 1989 1359 Lab Results last 24 hrs: Laboratory Results - last 24 hr 12/26/16 12/26/16 12/26/16 Range/Units 12:07 12:21 12:21 WBC (4.0-11.0) K/uL RBC (4.30-5.90) M/uL Hgb (12.0-16.0) g/dL Hct (36.0-46.0) % MCV (80.0-98.0) fL MCH (27.0-32.0) pg MCHC (31.0-37.0) g/dL RDW Std Deviation (28.0-62.0) fl RDW Coeff of Zak (11.0-15.0) % Plt Count (150-400) K/uL MPV (7.40-12.00) fL Neut % (Auto) (48.0-80.0) % Lymph % (Auto) (16.0-40.0) % [place] % (Auto) (0.0-15.0) % Eos % (Auto) (0.0-7.0) % Baso % (Auto) (0.0-1.5) % Neut # (Auto) (1.4-5.7) K/uL Lymph # (Auto) (0.6-2.4) K/uL [place] # (Auto) (0.0-0.8) K/uL Eos # (Auto) (0.0-0.7) K/uL Baso # (Auto) (0.0-0.1) K/uL Sodium 144 (136-146) mmol/L Potassium 4.9 (3.5-5.1) mmol/L Chloride 107 (98-110) mmol/L Carbon Dioxide 16 L (21-31) mmol/L BUN 18 (6.0-23.0) mg/dL Creatinine 1.1 (0.6-1.5) mg/dL Est Cr Clr Drug Dosing 55.18 mL/min Estimated GFR (MDRD) 59.6 ml/min Glucose 159 H (60-110) mg/dL POC Glucose 157 H (60-110) mg/dL Calcium 10.4 (8.8-10.8) mg/dL Phosphorus (2.4-4.7) mg/dL Magnesium 2.0 (1.5-2.3) mEq/L Total Bilirubin (0.1-1.5) mg/dL AST (5-40) IU/L ALT (8-54) IU/L Alkaline Phosphatase (40-150) Total Protein (6.0-8.0) g/dL Albumin (3.5-5.0) g/dL Globulin (2.0-3.5) g/dL Albumin/Globulin Ratio (1.3-2.8) 12/26/16 12/26/16 12/26/16 Range/Units 13:11 14:08 15:02 WBC (4.0-11.0) K/uL RBC (4.30-5.90) M/uL Hgb (12.0-16.0) g/dL Hct (36.0-46.0) % MCV (80.0-98.0) fL MCH (27.0-32.0) pg MCHC (31.0-37.0) g/dL RDW Std Deviation (28.0-62.0) fl RDW Coeff of Zak (11.0-15.0) % Plt Count (150-400) K/uL MPV (7.40-12.00) fL Neut % (Auto) (48.0-80.0) % Lymph % (Auto) (16.0-40.0) % [place] % (Auto) (0.0-15.0) % Eos % (Auto) (0.0-7.0) % Baso % (Auto) (0.0-1.5) % Neut # (Auto) (1.4-5.7) K/uL Lymph # (Auto) (0.6-2.4) K/uL [place] # (Auto) (0.0-0.8) K/uL Eos # (Auto) (0.0-0.7) K/uL Baso # (Auto) (0.0-0.1) K/uL Sodium (136-146) mmol/L Potassium (3.5-5.1) mmol/L Chloride (98-110) mmol/L Carbon Dioxide (21-31) mmol/L BUN (6.0-23.0) mg/dL Creatinine (0.6-1.5) mg/dL Est Cr Clr Drug Dosing mL/min Estimated GFR (MDRD) ml/min Glucose (60-110) mg/dL POC Glucose 129 H 158 H 128 H (60-110) mg/dL Calcium (8.8-10.8) mg/dL Phosphorus (2.4-4.7) mg/dL Magnesium (1.5-2.3) mEq/L Total Bilirubin (0.1-1.5) mg/dL AST (5-40) IU/L ALT (8-54) IU/L Alkaline Phosphatase (40-150) Total Protein (6.0-8.0) g/dL Albumin (3.5-5.0) g/dL Globulin (2.0-3.5) g/dL Albumin/Globulin Ratio (1.3-2.8) 12/26/16 12/26/16 12/26/16 Range/Units 16:10 16:12 17:06 WBC (4.0-11.0) K/uL RBC (4.30-5.90) M/uL Hgb (12.0-16.0) g/dL Hct (36.0-46.0) % MCV (80.0-98.0) fL MCH (27.0-32.0) pg MCHC (31.0-37.0) g/dL RDW Std Deviation (28.0-62.0) fl RDW Coeff of Zak (11.0-15.0) % Plt Count (150-400) K/uL MPV (7.40-12.00) fL Neut % (Auto) (48.0-80.0) % Lymph % (Auto) (16.0-40.0) % [place] % (Auto) (0.0-15.0) % Eos % (Auto) (0.0-7.0) % Baso % (Auto) (0.0-1.5) % Neut # (Auto) (1.4-5.7) K/uL Lymph # (Auto) (0.6-2.4) K/uL [place] # (Auto) (0.0-0.8) K/uL Eos # (Auto) (0.0-0.7) K/uL Baso # (Auto) (0.0-0.1) K/uL Sodium 143 (136-146) mmol/L Potassium 3.6 (3.5-5.1) mmol/L Chloride 110 (98-110) mmol/L Carbon Dioxide 19 L (21-31) mmol/L BUN 15 (6.0-23.0) mg/dL Creatinine 0.9 (0.6-1.5) mg/dL Est Cr Clr Drug Dosing 67.44 mL/min Estimated GFR (MDRD) > 60.0 ml/min Glucose 128 H (60-110) mg/dL POC Glucose 128 H 115 H (60-110) mg/dL Calcium 9.2 (8.8-10.8) mg/dL Phosphorus (2.4-4.7) mg/dL Magnesium (1.5-2.3) mEq/L Total Bilirubin (0.1-1.5) mg/dL AST (5-40) IU/L ALT (8-54) IU/L Alkaline Phosphatase (40-150) Total Protein (6.0-8.0) g/dL Albumin (3.5-5.0) g/dL Globulin (2.0-3.5) g/dL Albumin/Globulin Ratio (1.3-2.8) 12/26/16 12/26/16 12/26/16 Range/Units 18:05 19:20 20:06 WBC (4.0-11.0) K/uL RBC (4.30-5.90) M/uL Hgb (12.0-16.0) g/dL Hct (36.0-46.0) % MCV (80.0-98.0) fL MCH (27.0-32.0) pg MCHC (31.0-37.0) g/dL RDW Std Deviation (28.0-62.0) fl RDW Coeff of Zak (11.0-15.0) % Plt Count (150-400) K/uL MPV (7.40-12.00) fL Neut % (Auto) (48.0-80.0) % Lymph % (Auto) (16.0-40.0) % [place] % (Auto) (0.0-15.0) % Eos % (Auto) (0.0-7.0) % Baso % (Auto) (0.0-1.5) % Neut # (Auto) (1.4-5.7) K/uL Lymph # (Auto) (0.6-2.4) K/uL [place] # (Auto) (0.0-0.8) K/uL Eos # (Auto) (0.0-0.7) K/uL Baso # (Auto) (0.0-0.1) K/uL Sodium (136-146) mmol/L Potassium (3.5-5.1) mmol/L Chloride (98-110) mmol/L Carbon Dioxide (21-31) mmol/L BUN (6.0-23.0) mg/dL Creatinine (0.6-1.5) mg/dL Est Cr Clr Drug Dosing mL/min Estimated GFR (MDRD) ml/min Glucose (60-110) mg/dL POC Glucose 102 125 H 125 H (60-110) mg/dL Calcium (8.8-10.8) mg/dL Phosphorus (2.4-4.7) mg/dL Magnesium (1.5-2.3) mEq/L Total Bilirubin (0.1-1.5) mg/dL AST (5-40) IU/L ALT (8-54) IU/L Alkaline Phosphatase (40-150) Total Protein (6.0-8.0) g/dL Albumin (3.5-5.0) g/dL Globulin (2.0-3.5) g/dL Albumin/Globulin Ratio (1.3-2.8) 12/26/16 12/26/16 12/26/16 Range/Units 20:10 20:10 21:04 WBC (4.0-11.0) K/uL RBC (4.30-5.90) M/uL Hgb (12.0-16.0) g/dL Hct (36.0-46.0) % MCV (80.0-98.0) fL MCH (27.0-32.0) pg MCHC (31.0-37.0) g/dL RDW Std Deviation (28.0-62.0) fl RDW Coeff of Zak (11.0-15.0) % Plt Count (150-400) K/uL MPV (7.40-12.00) fL Neut % (Auto) (48.0-80.0) % Lymph % (Auto) (16.0-40.0) % [place] % (Auto) (0.0-15.0) % Eos % (Auto) (0.0-7.0) % Baso % (Auto) (0.0-1.5) % Neut # (Auto) (1.4-5.7) K/uL Lymph # (Auto) (0.6-2.4) K/uL [place] # (Auto) (0.0-0.8) K/uL Eos # (Auto) (0.0-0.7) K/uL Baso # (Auto) (0.0-0.1) K/uL Sodium 141 (136-146) mmol/L Potassium 3.9 (3.5-5.1) mmol/L Chloride 111 H (98-110) mmol/L Carbon Dioxide 16 L (21-31) mmol/L BUN 13 (6.0-23.0) mg/dL Creatinine 0.8 (0.6-1.5) mg/dL Est Cr Clr Drug Dosing 75.87 mL/min Estimated GFR (MDRD) > 60.0 ml/min Glucose 138 H (60-110) mg/dL POC Glucose 145 H (60-110) mg/dL Calcium 8.7 L (8.8-10.8) mg/dL Phosphorus (2.4-4.7) mg/dL Magnesium 1.3 L (1.5-2.3) mEq/L Total Bilirubin (0.1-1.5) mg/dL AST (5-40) IU/L ALT (8-54) IU/L Alkaline Phosphatase (40-150) Total Protein (6.0-8.0) g/dL Albumin (3.5-5.0) g/dL Globulin (2.0-3.5) g/dL Albumin/Globulin Ratio (1.3-2.8) 12/26/16 12/26/16 12/26/16 Range/Units 22:07 23:05 23:31 WBC (4.0-11.0) K/uL RBC (4.30-5.90) M/uL Hgb (12.0-16.0) g/dL Hct (36.0-46.0) % MCV (80.0-98.0) fL MCH (27.0-32.0) pg MCHC (31.0-37.0) g/dL RDW Std Deviation (28.0-62.0) fl RDW Coeff of Zak (11.0-15.0) % Plt Count (150-400) K/uL MPV (7.40-12.00) fL Neut % (Auto) (48.0-80.0) % Lymph % (Auto) (16.0-40.0) % [place] % (Auto) (0.0-15.0) % Eos % (Auto) (0.0-7.0) % Baso % (Auto) (0.0-1.5) % Neut # (Auto) (1.4-5.7) K/uL Lymph # (Auto) (0.6-2.4) K/uL [place] # (Auto) (0.0-0.8) K/uL Eos # (Auto) (0.0-0.7) K/uL Baso # (Auto) (0.0-0.1) K/uL Sodium (136-146) mmol/L Potassium (3.5-5.1) mmol/L Chloride (98-110) mmol/L Carbon Dioxide (21-31) mmol/L BUN (6.0-23.0) mg/dL Creatinine (0.6-1.5) mg/dL Est Cr Clr Drug Dosing mL/min Estimated GFR (MDRD) ml/min Glucose (60-110) mg/dL POC Glucose 128 H 110 (60-110) mg/dL Calcium (8.8-10.8) mg/dL Phosphorus 2.1 L (2.4-4.7) mg/dL Magnesium 2.4 H (1.5-2.3) mEq/L Total Bilirubin (0.1-1.5) mg/dL AST (5-40) IU/L ALT (8-54) IU/L Alkaline Phosphatase (40-150) Total Protein (6.0-8.0) g/dL Albumin (3.5-5.0) g/dL Globulin (2.0-3.5) g/dL Albumin/Globulin Ratio (1.3-2.8) 12/26/16 12/27/16 12/27/16 Range/Units 23:31 00:03 01:01 WBC (4.0-11.0) K/uL RBC (4.30-5.90) M/uL Hgb (12.0-16.0) g/dL Hct (36.0-46.0) % MCV (80.0-98.0) fL MCH (27.0-32.0) pg MCHC (31.0-37.0) g/dL RDW Std Deviation (28.0-62.0) fl RDW Coeff of Zak (11.0-15.0) % Plt Count (150-400) K/uL MPV (7.40-12.00) fL Neut % (Auto) (48.0-80.0) % Lymph % (Auto) (16.0-40.0) % [place] % (Auto) (0.0-15.0) % Eos % (Auto) (0.0-7.0) % Baso % (Auto) (0.0-1.5) % Neut # (Auto) (1.4-5.7) K/uL Lymph # (Auto) (0.6-2.4) K/uL [place] # (Auto) (0.0-0.8) K/uL Eos # (Auto) (0.0-0.7) K/uL Baso # (Auto) (0.0-0.1) K/uL Sodium 140 (136-146) mmol/L Potassium 3.6 (3.5-5.1) mmol/L Chloride 111 H (98-110) mmol/L Carbon Dioxide 18 L (21-31) mmol/L BUN 12 (6.0-23.0) mg/dL Creatinine 0.8 (0.6-1.5) mg/dL Est Cr Clr Drug Dosing 75.87 mL/min Estimated GFR (MDRD) > 60.0 ml/min Glucose 116 H (60-110) mg/dL POC Glucose 124 H 114 H (60-110) mg/dL Calcium 8.7 L (8.8-10.8) mg/dL Phosphorus (2.4-4.7) mg/dL Magnesium (1.5-2.3) mEq/L Total Bilirubin (0.1-1.5) mg/dL AST (5-40) IU/L ALT (8-54) IU/L Alkaline Phosphatase (40-150) Total Protein (6.0-8.0) g/dL Albumin (3.5-5.0) g/dL Globulin (2.0-3.5) g/dL Albumin/Globulin Ratio (1.3-2.8) 12/27/16 12/27/16 12/27/16 Range/Units 02:03 03:10 04:06 WBC (4.0-11.0) K/uL RBC (4.30-5.90) M/uL Hgb (12.0-16.0) g/dL Hct (36.0-46.0) % MCV (80.0-98.0) fL MCH (27.0-32.0) pg MCHC (31.0-37.0) g/dL RDW Std Deviation (28.0-62.0) fl RDW Coeff of Zak (11.0-15.0) % Plt Count (150-400) K/uL MPV (7.40-12.00) fL Neut % (Auto) (48.0-80.0) % Lymph % (Auto) (16.0-40.0) % [place] % (Auto) (0.0-15.0) % Eos % (Auto) (0.0-7.0) % Baso % (Auto) (0.0-1.5) % Neut # (Auto) (1.4-5.7) K/uL Lymph # (Auto) (0.6-2.4) K/uL [place] # (Auto) (0.0-0.8) K/uL Eos # (Auto) (0.0-0.7) K/uL Baso # (Auto) (0.0-0.1) K/uL Sodium (136-146) mmol/L Potassium (3.5-5.1) mmol/L Chloride (98-110) mmol/L Carbon Dioxide (21-31) mmol/L BUN (6.0-23.0) mg/dL Creatinine (0.6-1.5) mg/dL Est Cr Clr Drug Dosing mL/min Estimated GFR (MDRD) ml/min Glucose (60-110) mg/dL POC Glucose 110 103 113 H (60-110) mg/dL Calcium (8.8-10.8) mg/dL Phosphorus (2.4-4.7) mg/dL Magnesium (1.5-2.3) mEq/L Total Bilirubin (0.1-1.5) mg/dL AST (5-40) IU/L ALT (8-54) IU/L Alkaline Phosphatase (40-150) Total Protein (6.0-8.0) g/dL Albumin (3.5-5.0) g/dL Globulin (2.0-3.5) g/dL Albumin/Globulin Ratio (1.3-2.8) 12/27/16 12/27/16 12/27/16 Range/Units 04:11 04:11 05:03 WBC 8.50 (4.0-11.0) K/uL RBC 3.72 L (4.30-5.90) M/uL Hgb 10.4 L (12.0-16.0) g/dL Hct 32.7 L (36.0-46.0) % MCV 87.9 (80.0-98.0) fL MCH 28.0 (27.0-32.0) pg MCHC 31.8 (31.0-37.0) g/dL RDW Std Deviation 48.9 (28.0-62.0) fl RDW Coeff of Zak 16 H (11.0-15.0) % Plt Count 336 (150-400) K/uL MPV 9.60 (7.40-12.00) fL Neut % (Auto) 51.2 (48.0-80.0) % Lymph % (Auto) 39.3 (16.0-40.0) % [place] % (Auto) 7.8 (0.0-15.0) % Eos % (Auto) 1.5 (0.0-7.0) % Baso % (Auto) 0.2 (0.0-1.5) % Neut # (Auto) 4.4 (1.4-5.7) K/uL Lymph # (Auto) 3.3 H (0.6-2.4) K/uL [place] # (Auto) 0.7 (0.0-0.8) K/uL Eos # (Auto) 0.1 (0.0-0.7) K/uL Baso # (Auto) 0.0 (0.0-0.1) K/uL Sodium 141 (136-146) mmol/L Potassium 3.7 (3.5-5.1) mmol/L Chloride 113 H (98-110) mmol/L Carbon Dioxide 19 L (21-31) mmol/L BUN 9 (6.0-23.0) mg/dL Creatinine 0.7 (0.6-1.5) mg/dL Est Cr Clr Drug Dosing 86.71 mL/min Estimated GFR (MDRD) > 60.0 ml/min Glucose 110 (60-110) mg/dL POC Glucose 95 (60-110) mg/dL Calcium 8.5 L (8.8-10.8) mg/dL Phosphorus (2.4-4.7) mg/dL Magnesium (1.5-2.3) mEq/L Total Bilirubin 0.6 (0.1-1.5) mg/dL AST 30 (5-40) IU/L ALT 61 H (8-54) IU/L Alkaline Phosphatase 147 (40-150) Total Protein 5.8 L (6.0-8.0) g/dL Albumin 3.4 L (3.5-5.0) g/dL Globulin 2.4 (2.0-3.5) g/dL Albumin/Globulin Ratio 1.4 (1.3-2.8) 12/27/16 12/27/16 12/27/16 Range/Units 06:06 07:01 08:17 WBC (4.0-11.0) K/uL RBC (4.30-5.90) M/uL Hgb (12.0-16.0) g/dL Hct (36.0-46.0) % MCV (80.0-98.0) fL MCH (27.0-32.0) pg MCHC (31.0-37.0) g/dL RDW Std Deviation (28.0-62.0) fl RDW Coeff of Zak (11.0-15.0) % Plt Count (150-400) K/uL MPV (7.40-12.00) fL Neut % (Auto) (48.0-80.0) % Lymph % (Auto) (16.0-40.0) % [place] % (Auto) (0.0-15.0) % Eos % (Auto) (0.0-7.0) % Baso % (Auto) (0.0-1.5) % Neut # (Auto) (1.4-5.7) K/uL Lymph # (Auto) (0.6-2.4) K/uL [place] # (Auto) (0.0-0.8) K/uL Eos # (Auto) (0.0-0.7) K/uL Baso # (Auto) (0.0-0.1) K/uL Sodium (136-146) mmol/L Potassium (3.5-5.1) mmol/L Chloride (98-110) mmol/L Carbon Dioxide (21-31) mmol/L BUN (6.0-23.0) mg/dL Creatinine (0.6-1.5) mg/dL Est Cr Clr Drug Dosing mL/min Estimated GFR (MDRD) ml/min Glucose (60-110) mg/dL POC Glucose 127 H 129 H 115 H (60-110) mg/dL Calcium (8.8-10.8) mg/dL Phosphorus (2.4-4.7) mg/dL Magnesium (1.5-2.3) mEq/L Total Bilirubin (0.1-1.5) mg/dL AST (5-40) IU/L ALT (8-54) IU/L Alkaline Phosphatase (40-150) Total Protein (6.0-8.0) g/dL Albumin (3.5-5.0) g/dL Globulin (2.0-3.5) g/dL Albumin/Globulin Ratio (1.3-2.8) 12/27/16 12/27/16 Range/Units 09:09 10:07 WBC (4.0-11.0) K/uL RBC (4.30-5.90) M/uL Hgb (12.0-16.0) g/dL Hct (36.0-46.0) % MCV (80.0-98.0) fL MCH (27.0-32.0) pg MCHC (31.0-37.0) g/dL RDW Std Deviation (28.0-62.0) fl RDW Coeff of Zak (11.0-15.0) % Plt Count (150-400) K/uL MPV (7.40-12.00) fL Neut % (Auto) (48.0-80.0) % Lymph % (Auto) (16.0-40.0) % [place] % (Auto) (0.0-15.0) % Eos % (Auto) (0.0-7.0) % Baso % (Auto) (0.0-1.5) % Neut # (Auto) (1.4-5.7) K/uL Lymph # (Auto) (0.6-2.4) K/uL [place] # (Auto) (0.0-0.8) K/uL Eos # (Auto) (0.0-0.7) K/uL Baso # (Auto) (0.0-0.1) K/uL Sodium (136-146) mmol/L Potassium (3.5-5.1) mmol/L Chloride (98-110) mmol/L Carbon Dioxide (21-31) mmol/L BUN (6.0-23.0) mg/dL Creatinine (0.6-1.5) mg/dL Est Cr Clr Drug Dosing mL/min Estimated GFR (MDRD) ml/min Glucose (60-110) mg/dL POC Glucose 140 H 154 H (60-110) mg/dL Calcium (8.8-10.8) mg/dL Phosphorus (2.4-4.7) mg/dL Magnesium (1.5-2.3) mEq/L Total Bilirubin (0.1-1.5) mg/dL AST (5-40) IU/L ALT (8-54) IU/L Alkaline Phosphatase (40-150) Total Protein (6.0-8.0) g/dL Albumin (3.5-5.0) g/dL Globulin (2.0-3.5) g/dL Albumin/Globulin Ratio (1.3-2.8) Med Orders - Current: Current Medications Diphenhydramine HCl (Benadryl) 25 mg IVPUSH Q6H PRN PRN Reason: Itching Last Admin: 12/27/16 09:10 Dose: 25 mg Insulin Human Regular 100 unit (/ Sodium Chloride) 100 mls @ 22.8 mls/hr IV TITRATE PIPPA; 0.5 UNIT/KG/HR PRN Reason: Protocol Last Titration: 12/27/16 09:16 Dose: 1 unit/kg/hr, 45.6 mls/hr Sodium Chloride (Sodium Chloride 0.45%) 1,000 mls @ 125 mls/hr IV ASDIRECTED PIPPA Last Admin: 12/27/16 10:12 Dose: 125 mls/hr Insulin Aspart (Novolog) 0 unit SUBCUT Q4H PIPPA PRN Reason: Protocol Last Admin: 12/27/16 10:11 Dose: 3 units Ondansetron HCl (Zofran) 4 mg IVPUSH Q4H PRN PRN Reason: Nausea/Vomiting Last Admin: 12/27/16 09:04 Dose: 4 mg Discontinued Medications Diphenhydramine HCl (Benadryl) 25 mg IVPUSH ONETIME ONE Stop: 12/26/16 07:50 Last Admin: 12/26/16 07:58 Dose: 25 mg Sodium Chloride (Normal Saline) 1,000 mls @ 999 mls/hr IV STAT ONE Stop: 12/26/16 08:11 Last Admin: 12/26/16 07:32 Dose: 250 mls/hr Potassium Chloride/Dextrose/Sod Cl (D5 Ns With 20 Meq Kcl) 1,000 mls @ 150 mls/ hr IV ASDIRECTED PIPPA Last Infusion: 12/26/16 21:33 Dose: 150 mls/hr Potassium Chloride/Sodium Chloride (Normal Saline With 20 Meq Kcl) 1,000 mls @ 200 mls/hr IV ASDIRECTED [facility] Potassium Chloride/Dextrose/Sod Cl (D5 1/2 Ns W/ 20 Meq/L Kcl) 1,000 mls @ 200 mls/hr IV ASDIRECTED [facility] Last Infusion: 12/27/16 05:17 Dose: 200 mls/hr Magnesium Sulfate 1 gm/ Sodium (Chloride) 52 mls @ 52 mls/hr IV ONETIME ONE Stop: 12/26/16 22:44 Last Admin: 12/26/16 22:00 Dose: Not Given Magnesium Sulfate 2 gm/ Premix 50 mls @ 50 mls/hr IV ONETIME ONE Stop: 12/26/16 22:46 Last Admin: 12/26/16 22:10 Dose: 50 mls/hr Dextrose/Water (Dextrose 5% In Water) 1,000 mls @ 250 mls/hr IV ASDIRECTED [facility] Last Admin: 12/27/16 09:22 Dose: 250 mls/hr Potassium Phosphate 30 mmole/ (Sodium Chloride) 260 mls @ 43 mls/hr IV ONETIME ONE Stop: 12/27/16 11:17 Last Admin: 12/27/16 05:58 Dose: 43 mls/hr Insulin Human Regular (Novolin R) 10 unit IVPUSH ONETIME ONE PRN Reason: Protocol Stop: 12/26/16 07:12 Last Admin: 12/26/16 07:39 Dose: Not Given Insulin Human Regular (Novolin R) 10 unit SUBCUT ONETIME ONE PRN Reason: Protocol Stop: 12/26/16 07:12 Last Admin: 12/26/16 07:23 Dose: 10 units Insulin Human Regular (Novolin R) 10 unit IVPUSH ONETIME ONE PRN Reason: Protocol Stop: 12/26/16 08:09 Last Admin: 12/26/16 08:14 Dose: 10 units Insulin Human Regular (Novolin R) 5 unit SUBCUT NOW STA PRN Reason: Protocol Stop: 12/26/16 11:29 Last Admin: 12/26/16 11:56 Dose: Not Given Magnesium Sulfate (Magnesium Sulfate 50%) 1 gm IM ONETIME ONE Stop: 12/26/16 21:16 Last Admin: 12/26/16 21:58 Dose: Not Given Morphine Sulfate (Morphine) 2 mg IV ONETIME ONE Stop: 12/26/16 08:24 Last Admin: 12/26/16 08:30 Dose: 2 mg Morphine Sulfate (Morphine) 5 mg IVPUSH Q2H PRN PRN Reason: Pain (severe 7-10) Stop: 12/27/16 10:48 Last Admin: 12/27/16 09:02 Dose: 5 mg Ondansetron HCl (Zofran) 8 mg IVPUSH ONETIME ONE Stop: 12/26/16 07:28 Last Admin: 12/26/16 07:39 Dose: 8 mg Ondansetron HCl (Zofran) 4 mg IVPUSH ONETIME ONE Stop: 12/26/16 11:08 Last Admin: 12/26/16 11:11 Dose: 4 mg Potassium Phosphate (Potassium Phosphates) 30 mmole IV ONETIME ONE Stop: 12/27/16 05:01 - Exam General: alert, cooperative Lungs: Clear to auscultation, Normal respiratory effort Cardiovascular: Regular Rate, Regular Rhythm Abdomen: soft, other (mild diffuse tenderness) Extremities: No: edema - Problem List & Annotations (1) Duodenal ulcer disease SNOMED Code(s): 49327952 Code(s): K26.9 - DUODENAL ULCER, UNSP ACUTE OR CHRONIC, W/O HEMOR OR PERF Status: Acute Current Visit: Yes (2) Abdominal pain SNOMED Code(s): 78652222 Code(s): R10.9 - UNSPECIFIED ABDOMINAL PAIN Status: Acute Current Visit: No Qualifiers: Abdominal location: unspecified location Qualified Code(s): R10.9 - Unspecified abdominal pain (3) Chronic abdominal pain SNOMED Code(s): 827602546 Code(s): R10.9 - UNSPECIFIED ABDOMINAL PAIN; G89.29 - OTHER CHRONIC PAIN Status: Acute Current Visit: No (4) DKA (diabetic ketoacidoses) SNOMED Code(s): 572443284, 543899735 Code(s): E13.10 - OTH DIABETES MELLITUS WITH KETOACIDOSIS WITHOUT COMA Status: Acute Current Visit: No (5) Elevated liver enzymes SNOMED Code(s): 084902652, 479085409 Code(s): R74.8 - ABNORMAL LEVELS OF OTHER SERUM ENZYMES Status: Acute Current Visit: No (6) Gastroparesis SNOMED Code(s): 798923976 Code(s): K31.84 - GASTROPARESIS Status: Acute Current Visit: No (7) Seizure disorder SNOMED Code(s): 857864281 Code(s): G40.909 - EPILEPSY, UNSP, NOT INTRACTABLE, WITHOUT STATUS EPILEPTICUS Status: Chronic Current Visit: No - Problem List Review Problem List Initiated/Reviewed/Updated: Yes - My Orders Last 24 Hours: My Active Orders 12/26/16 13:00 diphenhydrAMINE [Benadryl] 25 mg IVPUSH Q6H PRN 12/26/16 14:42 Ondansetron [Zofran] 4 mg IVPUSH Q4H PRN 12/26/16 14:51 Communication Order [RC] ROUTINE 12/28/16 05:11 CBC WITH AUTO DIFF [HEME] AM COMPREHENSIVE METABOLIC PN,CMP [CHEM] AM 12/29/16 05:11 CBC WITH AUTO DIFF [HEME] AM COMPREHENSIVE METABOLIC PN,CMP [CHEM] AM - Plan Plan:: see orders ICU I spoke with her primary attending physician , Dr Black. David Valentine MD 12/27/2016 Her father states that he now has a vehicle; she can go to an appointment in [place] As per recommendation of Dr Black will seek GI consult with Dr Rivas because of her history of duodenal ulcer ( as an outpatient) to floor split dose insulin David Valentine MD
[2016-12-27] MEDS ORDERED: LORazepam 0.5 MG Tab PO PRN (12:20)
[2016-12-27] MEDS ORDERED: Promethazine 25 MG Tab PO PRN (12:20)
[2016-12-27] MEDS: Ondansetron 8 MG Tab.DIS PO PRN (14:06)
[2016-12-27] MEDS: Morphine 15 MG Tab PO PRN ×2 (14:06→20:28)
[2016-12-27] MEDS ORDERED: MORPHINE 30 MG PO SCH (15:00)
[2016-12-27] MEDS: Insulin Aspart 100 Units/ML 3 ML Pen SUBCUT SCH (18:11)
[2016-12-27] MEDS ORDERED: Insulin Detemir 100 Units/ML 3 ML Pen SUBCUT SCH (21:00)
[2016-12-28] MEDS: Insulin Aspart 100 Units/ML 3 ML Pen SUBCUT SCH ×3 (00:27→06:29)
[2016-12-28] MEDS: Morphine 15 MG Tab PO PRN ×2 (03:07→07:53)
[2016-12-28] MEDS: diphenhydrAMINE 50 MG/ML SDV IVPUSH PRN (03:07)
[2016-12-28] MEDS: Ondansetron 8 MG Tab.DIS PO PRN (03:09)
[2016-12-28 05:57] LABS: CHLORIDE,CL 109 mmol/L (98-110); SODIUM,NA 138 mmol/L (136-146)
--- NOTE | 2016-12-28 07:45 | PCM.DCSUM1 ---
Discharge Summary - Hospital Course Brief History: she was admitted for diabetic ketoacidosis. - Discharge Data Discharge Date: 12/28/16 Discharge Disposition: Home, Self-Care 01 Condition: Fair - Discharge Diagnosis/Problem(s) (1) Duodenal ulcer disease SNOMED Code(s): 03820793 ICD Code: K26.9 - DUODENAL ULCER, UNSP ACUTE OR CHRONIC, W/O HEMOR OR PERF Status: Acute Current Visit: Yes (2) Abdominal pain SNOMED Code(s): 97890769 ICD Code: R10.9 - UNSPECIFIED ABDOMINAL PAIN Status: Acute Current Visit : No Qualifiers: Abdominal location: unspecified location Qualified Code(s): R10.9 - Unspecified abdominal pain (3) Chronic abdominal pain SNOMED Code(s): 717298332 ICD Code: R10.9 - UNSPECIFIED ABDOMINAL PAIN; G89.29 - OTHER CHRONIC PAIN Status: Acute Current Visit: No (4) DKA (diabetic ketoacidoses) SNOMED Code(s): 525582616, 785863564 ICD Code: E13.10 - OTH DIABETES MELLITUS WITH KETOACIDOSIS WITHOUT COMA Status: Acute Current Visit: No (5) Elevated liver enzymes SNOMED Code(s): 525770901, 624980694 ICD Code: R74.8 - ABNORMAL LEVELS OF OTHER SERUM ENZYMES Status: Acute Current Visit: No (6) Gastroparesis SNOMED Code(s): 943294984 ICD Code: K31.84 - GASTROPARESIS Status: Acute Current Visit: No (7) Seizure disorder SNOMED Code(s): 044988318 ICD Code: G40.909 - EPILEPSY, UNSP, NOT INTRACTABLE, WITHOUT STATUS EPILEPTICUS Status: Chronic Current Visit: No - Patient Summary/Data Hospital Course: she was treated with an insulin drip. Her electrolyte and fluid status were managed in the standard fashion. She improved. she was changed to split dose insulin with novolog and levemir. Her blood sugars are stable at discharge.She has adequate pain control at discharge. She is referred to Dr Rivas for follow up gastroenterology appointment in [place]. I will refill her Morphine 30 mg 5 times per day #20 . I suggested she discuss further refills with Dr Black. - Discharge Plan Home Medications: Home Meds Insulin Detemir [Levemir] 15 unit SUBCUT BID 03/24/16 [History] LORazepam [Ativan] 0.5 mg PO BID PRN 03/24/16 [History] Ondansetron [Ondansetron ODT] 8 mg PO QID PRN 04/19/16 [History] Insulin Aspart [Novolog Flexpen] 16 - 20 unit SUBCUT QIDACANDBED 05/15/16 [ History] Promethazine HCl 25 mg PO Q6H PRN 08/24/16 [History] Morphine 30 mg PO 5XDAY 11/30/16 [History] Referrals: Allen Rivas MD [Ordering Only Provider] - (within three weeks) - Patient Data Vitals - Most Recent: Last Vital Signs Temp 97.6 F 12/28/16 04:00 Pulse 82 12/28/16 00:00 Resp 16 12/28/16 04:00 BP 102/66 12/28/16 04:00 Pulse Ox 96 12/28/16 04:00 Weight - Most Recent: 49.5 kg I&O - Last 24 hours: Intake & Output 12/27/16 12/28/16 12/28/16 22:59 06:59 14:59 Intake Total 4050 1250 Output Total 1999 1625 Balance 2050 -375 Lab Results - Last 24 hrs: Laboratory Results - last 24 hr 12/27/16 12/27/16 12/27/16 Range/Units 08:17 09:09 10:07 WBC (4.0-11.0) K/uL RBC (4.30-5.90) M/uL Hgb (12.0-16.0) g/dL Hct (36.0-46.0) % MCV (80.0-98.0) fL MCH (27.0-32.0) pg MCHC (31.0-37.0) g/dL RDW Std Deviation (28.0-62.0) fl RDW Coeff of Zak (11.0-15.0) % Plt Count (150-400) K/uL MPV (7.40-12.00) fL Neut % (Auto) (48.0-80.0) % Lymph % (Auto) (16.0-40.0) % Hunt % (Auto) (0.0-15.0) % Eos % (Auto) (0.0-7.0) % Baso % (Auto) (0.0-1.5) % Neut # (Auto) (1.4-5.7) K/uL Lymph # (Auto) (0.6-2.4) K/uL Hunt # (Auto) (0.0-0.8) K/uL Eos # (Auto) (0.0-0.7) K/uL Baso # (Auto) (0.0-0.1) K/uL Nucleated RBC % /100WBC Nucleated RBCs # K/uL Sodium (136-146) mmol/L Potassium (3.5-5.1) mmol/L Chloride (98-110) mmol/L Carbon Dioxide (21-31) mmol/L BUN (6.0-23.0) mg/dL Creatinine (0.6-1.5) mg/dL Est Cr Clr Drug Dosing mL/min Estimated GFR (MDRD) ml/min Glucose (60-110) mg/dL POC Glucose 115 H 140 H 154 H (60-110) mg/dL Calcium (8.8-10.8) mg/dL Total Bilirubin (0.1-1.5) mg/dL AST (5-40) IU/L ALT (8-54) IU/L Alkaline Phosphatase (40-150) Total Protein (6.0-8.0) g/dL Albumin (3.5-5.0) g/dL Globulin (2.0-3.5) g/dL Albumin/Globulin Ratio (1.3-2.8) 12/27/16 12/27/16 12/28/16 Range/Units 18:08 23:54 00:27 WBC (4.0-11.0) K/uL RBC (4.30-5.90) M/uL Hgb (12.0-16.0) g/dL Hct (36.0-46.0) % MCV (80.0-98.0) fL MCH (27.0-32.0) pg MCHC (31.0-37.0) g/dL RDW Std Deviation (28.0-62.0) fl RDW Coeff of Zak (11.0-15.0) % Plt Count (150-400) K/uL MPV (7.40-12.00) fL Neut % (Auto) (48.0-80.0) % Lymph % (Auto) (16.0-40.0) % Hunt % (Auto) (0.0-15.0) % Eos % (Auto) (0.0-7.0) % Baso % (Auto) (0.0-1.5) % Neut # (Auto) (1.4-5.7) K/uL Lymph # (Auto) (0.6-2.4) K/uL Hunt # (Auto) (0.0-0.8) K/uL Eos # (Auto) (0.0-0.7) K/uL Baso # (Auto) (0.0-0.1) K/uL Nucleated RBC % /100WBC Nucleated RBCs # K/uL Sodium (136-146) mmol/L Potassium (3.5-5.1) mmol/L Chloride (98-110) mmol/L Carbon Dioxide (21-31) mmol/L BUN (6.0-23.0) mg/dL Creatinine (0.6-1.5) mg/dL Est Cr Clr Drug Dosing mL/min Estimated GFR (MDRD) ml/min Glucose (60-110) mg/dL POC Glucose 362 H 38 L 97 (60-110) mg/dL Calcium (8.8-10.8) mg/dL Total Bilirubin (0.1-1.5) mg/dL AST (5-40) IU/L ALT (8-54) IU/L Alkaline Phosphatase (40-150) Total Protein (6.0-8.0) g/dL Albumin (3.5-5.0) g/dL Globulin (2.0-3.5) g/dL Albumin/Globulin Ratio (1.3-2.8) 12/28/16 12/28/16 12/28/16 Range/Units 04:55 04:55 05:48 WBC 8.19 (4.0-11.0) K/uL RBC 4.01 L (4.30-5.90) M/uL Hgb 11.1 L (12.0-16.0) g/dL Hct 35.3 L (36.0-46.0) % MCV 88.0 (80.0-98.0) fL MCH 27.7 (27.0-32.0) pg MCHC 31.4 (31.0-37.0) g/dL RDW Std Deviation 52.0 (28.0-62.0) fl RDW Coeff of Zak 16 H (11.0-15.0) % Plt Count 353 (150-400) K/uL MPV 10.30 (7.40-12.00) fL Neut % (Auto) 40.1 L (48.0-80.0) % Lymph % (Auto) 52.6 H (16.0-40.0) % Hunt % (Auto) 4.0 (0.0-15.0) % Eos % (Auto) 2.8 (0.0-7.0) % Baso % (Auto) 0.5 (0.0-1.5) % Neut # (Auto) 3.3 (1.4-5.7) K/uL Lymph # (Auto) 4.3 H (0.6-2.4) K/uL Hunt # (Auto) 0.3 (0.0-0.8) K/uL Eos # (Auto) 0.2 (0.0-0.7) K/uL Baso # (Auto) 0.0 (0.0-0.1) K/uL Nucleated RBC % 0.0 /100WBC Nucleated RBCs # 0 K/uL Sodium 138 (136-146) mmol/L Potassium 4.4 (3.5-5.1) mmol/L Chloride 109 (98-110) mmol/L Carbon Dioxide 17 L (21-31) mmol/L BUN 9 (6.0-23.0) mg/dL Creatinine 0.7 (0.6-1.5) mg/dL Est Cr Clr Drug Dosing 86.71 mL/min Estimated GFR (MDRD) > 60.0 ml/min Glucose 177 H (60-110) mg/dL POC Glucose 151 H (60-110) mg/dL Calcium 9.2 (8.8-10.8) mg/dL Total Bilirubin 0.3 (0.1-1.5) mg/dL AST 67 H (5-40) IU/L ALT 69 H (8-54) IU/L Alkaline Phosphatase 163 H (40-150) Total Protein 6.3 (6.0-8.0) g/dL Albumin 3.7 (3.5-5.0) g/dL Globulin 2.6 (2.0-3.5) g/dL Albumin/Globulin Ratio 1.4 (1.3-2.8) Med Orders - Current: Current Medications Diphenhydramine HCl (Benadryl) 25 mg IVPUSH Q6H PRN PRN Reason: Itching Last Admin: 12/28/16 03:07 Dose: 25 mg Sodium Chloride (Sodium Chloride 0.45%) 1,000 mls @ 75 mls/hr IV ASDIRECTED PIPPA Last Admin: 12/27/16 20:20 Dose: 75 mls/hr Insulin Aspart (Novolog) 0 unit SUBCUT ACBED PIPPA PRN Reason: Protocol Last Admin: 12/28/16 06:29 Dose: 3 units Insulin Detemir (Levemir) 10 unit SUBCUT BID PIPPA Lorazepam (Ativan) 0.5 mg PO BID PRN PRN Reason: Anxiety Morphine Sulfate (Morphine) 30 mg PO Q4H PRN PRN Reason: Pain Last Admin: 12/28/16 03:07 Dose: 30 mg Ondansetron HCl (Zofran) 4 mg IVPUSH Q4H PRN PRN Reason: Nausea/Vomiting Last Admin: 12/27/16 09:04 Dose: 4 mg Ondansetron HCl (Zofran Odt) 8 mg PO QID PRN PRN Reason: Nausea/Vomiting Last Admin: 12/28/16 03:09 Dose: 8 mg Promethazine HCl (Phenergan) 25 mg PO Q6H PRN PRN Reason: Nausea/Vomiting Discontinued Medications Diphenhydramine HCl (Benadryl) 25 mg IVPUSH ONETIME ONE Stop: 12/26/16 07:50 Last Admin: 12/26/16 07:58 Dose: 25 mg Sodium Chloride (Normal Saline) 1,000 mls @ 999 mls/hr IV STAT ONE Stop: 12/26/16 08:11 Last Admin: 12/26/16 07:32 Dose: 250 mls/hr Insulin Human Regular 100 unit (/ Sodium Chloride) 100 mls @ 22.8 mls/hr IV TITRATE PIPPA; 0.5 UNIT/KG/HR PRN Reason: Protocol Last Titration: 12/27/16 09:16 Dose: 1 unit/kg/hr, 45.6 mls/hr Potassium Chloride/Dextrose/Sod Cl (D5 Ns With 20 Meq Kcl) 1,000 mls @ 150 mls/ hr IV ASDIRECTED PIPPA Last Infusion: 12/26/16 21:33 Dose: 150 mls/hr Potassium Chloride/Sodium Chloride (Normal Saline With 20 Meq Kcl) 1,000 mls @ 200 mls/hr IV ASDIRECTED PIPPA Potassium Chloride/Dextrose/Sod Cl (D5 1/2 Ns W/ 20 Meq/L Kcl) 1,000 mls @ 200 mls/hr IV ASDIRECTED PIPPA Last Infusion: 12/27/16 05:17 Dose: 200 mls/hr Magnesium Sulfate 1 gm/ Sodium (Chloride) 52 mls @ 52 mls/hr IV ONETIME ONE Stop: 12/26/16 22:44 Last Admin: 12/26/16 22:00 Dose: Not Given Magnesium Sulfate 2 gm/ Premix 50 mls @ 50 mls/hr IV ONETIME ONE Stop: 12/26/16 22:46 Last Admin: 12/26/16 22:10 Dose: 50 mls/hr Dextrose/Water (Dextrose 5% In Water) 1,000 mls @ 250 mls/hr IV ASDIRECTED PIPPA Last Admin: 12/27/16 09:22 Dose: 250 mls/hr Potassium Phosphate 30 mmole/ (Sodium Chloride) 260 mls @ 43 mls/hr IV ONETIME ONE Stop: 12/27/16 11:17 Last Admin: 12/27/16 05:58 Dose: 43 mls/hr Insulin Aspart (Novolog) 0 unit SUBCUT Q4H PIPPA PRN Reason: Protocol Last Admin: 12/27/16 10:11 Dose: 3 units Insulin Aspart (Novolog) 0 unit SUBCUT QID PIPPA PRN Reason: Protocol Last Admin: 12/28/16 00:27 Dose: Not Given Insulin Detemir (Levemir) 15 unit SUBCUT BID [facility] Last Admin: 12/27/16 20:16 Dose: 15 units Insulin Human Regular (Novolin R) 10 unit IVPUSH ONETIME ONE PRN Reason: Protocol Stop: 12/26/16 07:12 Last Admin: 12/26/16 07:39 Dose: Not Given Insulin Human Regular (Novolin R) 10 unit SUBCUT ONETIME ONE PRN Reason: Protocol Stop: 12/26/16 07:12 Last Admin: 12/26/16 07:23 Dose: 10 units Insulin Human Regular (Novolin R) 10 unit IVPUSH ONETIME ONE PRN Reason: Protocol Stop: 12/26/16 08:09 Last Admin: 12/26/16 08:14 Dose: 10 units Insulin Human Regular (Novolin R) 5 unit SUBCUT NOW STA PRN Reason: Protocol Stop: 12/26/16 11:29 Last Admin: 12/26/16 11:56 Dose: Not Given Magnesium Sulfate (Magnesium Sulfate 50%) 1 gm IM ONETIME ONE Stop: 12/26/16 21:16 Last Admin: 12/26/16 21:58 Dose: Not Given Morphine Sulfate (Morphine) 2 mg IV ONETIME ONE Stop: 12/26/16 08:24 Last Admin: 12/26/16 08:30 Dose: 2 mg Morphine Sulfate (Morphine) 5 mg IVPUSH Q2H PRN PRN Reason: Pain (severe 7-10) Stop: 12/27/16 10:48 Last Admin: 12/27/16 09:02 Dose: 5 mg Non-Formulary Medication (Morphine) 30 mg PO 5XDAY PIPPA Ondansetron HCl (Zofran) 8 mg IVPUSH ONETIME ONE Stop: 12/26/16 07:28 Last Admin: 12/26/16 07:39 Dose: 8 mg Ondansetron HCl (Zofran) 4 mg IVPUSH ONETIME ONE Stop: 12/26/16 11:08 Last Admin: 12/26/16 11:11 Dose: 4 mg Potassium Phosphate (Potassium Phosphates) 30 mmole IV ONETIME ONE Stop: 12/27/16 05:01 *Q Meaningful Use (DIS) - VTE *Q VTE Criteria *Q: - Stroke *Q Stroke Criteria *Q: - AMI *Q AMI Criteria *Q:
[2016-12-28 08:36] VITALS: BP 100/64
[2016-12-28] MEDS ORDERED: Insulin Detemir 100 Units/ML 3 ML Pen SUBCUT SCH (09:00)
== END 2016-12-28 08:55 | disposition home or self-care (01) | DRG 383 ==
LOC: MW.ED 06:57 → MW.ICU 10:31 → MW.MS 12-27 18:57
PROVIDERS: ADMIT Family Medicine; ATTEND Family Medicine
DX: K26.9 Duodenal ulcer, unspecified as acute or chronic, without hemorrhage or perforation (principal); E10.10 Type 1 diabetes mellitus with ketoacidosis without coma; R10.9 Unspecified abdominal pain; R74.8 Abnormal levels of other serum enzymes; K31.84 Gastroparesis; G40.909 Epilepsy, unspecified, not intractable, without status epilepticus; F41.8 Other specified anxiety disorders; Z79.4 Long term (current) use of insulin; Z79.899 Other long term (current) drug therapy; Z88.8 Allergy status to other drugs, medicaments and biological substances; Z87.891 Personal history of nicotine dependence
CPT/HCPCS: 36415; 36600; 71010; 71010-26; 80048; 80053; 80305; 81001; 81025; 82150; 82435; 82803; 82962; 83690; 83735; 84100; 84295; 84443; 85025; 93005; 96361; 96365; 96366; 96368; 96375; 96376; 99285; 99285-25; A9270-GY; G0480; J1200; J1815-GY ×2; J2270; J2405; J3475; J3480; J7030; J7040; J7050; J7060

== ENCOUNTER 2017-02-16 13:38 | Observation (INO) | payer MEDICAID ==
[2017-02-16] MEDS ORDERED: Lidocaine 5% Oint 35.44 GM Tube TOP ONE (13:45)
[2017-02-16] MEDS ORDERED: Ondansetron 4 MG Tab.DIS PO PRN (13:46)
[2017-02-16] MEDS ORDERED: Magnesium Sulfate/Water 4 GM in Premix Bag 1 BAG IV ONE (13:46)
[2017-02-16] MEDS ORDERED: Ondansetron 8 MG Tab.DIS PO PRN (13:53)
[2017-02-16] MEDS ORDERED: LORazepam 0.5 MG Tab PO PRN (13:53)
[2017-02-16] MEDS ORDERED: MORPHINE 30 MG PO PRN (13:53)
[2017-02-16] MEDS ORDERED: Promethazine 25 MG Tab PO PRN (13:53)
[2017-02-16 14:00] VITALS: BP 129/82
[2017-02-16] MEDS ORDERED: Sodium Chloride 0.9% 1,000 ML IV SCH (14:00)
[2017-02-16] MEDS ORDERED: valACYclovir 500 MG Tab PO SCH (14:00)
[2017-02-16] MEDS ORDERED: Nystatin Topical Powder 15 GM Bottle TOP SCH (14:00)
[2017-02-16] MEDS ORDERED: Lidocaine 4% Top Soln 50 ML Bottle TOP ONE (14:00)
--- NOTE | 2017-02-16 14:49 | PCM.HP ---
H&P History of Present Illness - General Date of Service: 02/16/17 Admit Problem/Dx: Admission Diagnosis/Problem Admission Diagnosis/Problem Electrolyte imbalance Source of Information: Patient History Limitations: Reports: No Limitations - History of Present Illness Initial Comments - Free Text/Narative: 26-year-old female with multiple hospital admissions secondary to chronic abdominal pain and DKA that is being admitted with electrolyte imbalances. Patient was seen by her primary care provider this morning, Dr. wong, for a routine follow-up and routine blood work showed that the patient's magnesium was 1 and her calcium was 11.5. Her blood glucose was normal and she was not noted to be in DKA. Liver enzymes are elevated but this is chronic for her. Patient typically vomits on a daily basis and states that she has been vomiting more than usual. She also notes increased diarrhea. She denies increased consumption of milk. She also notes a large mass on the anterior aspect of her left thigh. This is been present over the last couple of months and seems to be getting bigger. It is tender with palpation. She has never had a mass like this before. She denies any other masses. She also notes a rash under her left breast that spreads around to her back. Her PCP was going treat her for shingles with acyclovir. Patient currently denies any chest pain, shortness of breath, wheezing, cough, fever. Patient was a direct admit from her primary care physician's clinic. - Related Data Allergies/Adverse Reactions: Allergies Allergy/AdvReac Type Severity Reaction Status Date / Time acetaminophen [From Tylenol] Allergy Liver Verified 12/26/16 07:06 Problems amoxicillin Allergy Hives Verified 12/26/16 07:06 amoxicillin trihydrate Allergy Hives Verified 12/26/16 07:06 [From Amoxil] ibuprofen Allergy Liver Verified 12/26/16 07:06 Problems ketorolac tromethamine Allergy Hives Verified 12/26/16 07:06 [From Toradol] metoclopramide HCl Allergy Airway Verified 12/26/16 07:06 [From Reglan] Tightness tramadol Allergy Hives Verified 12/26/16 07:06 haldol Allergy Swelling Uncoded 12/26/16 07:06 Home Medications: Home Meds Insulin Detemir [Levemir] 15 unit SUBCUT BID 03/24/16 [History] LORazepam [Ativan] 1 mg PO TID PRN 03/24/16 [History] Ondansetron [Ondansetron ODT] 8 mg PO QID PRN 04/19/16 [History] Insulin Aspart [Novolog Flexpen] 16 - 20 unit SUBCUT QIDACANDBED 05/15/16 [ History] Promethazine HCl 25 mg PO Q6H PRN 08/24/16 [History] Morphine 30 mg PO 5XDAY 11/30/16 [History] Albuterol Sulfate [Proair Hfa] 1 puff IH Q4H PRN 02/16/17 [History] Budesonide/Formoterol Fumarate [Symbicort 160-4.5 Mcg Inhaler] 1 puff INH BID [History] Past Medical History - Past Health History Medical/Surgical History: Denies Medical/Surgical History HEENT History: Reports: Allergic Rhinitis Other HEENT History: dental abcess Cardiovascular History: Reports: None Respiratory History: Reports: Asthma Gastrointestinal History: Reports: GI Bleed, Hepatitis, PUD, Other (See Below) Other Gastrointestinal History: hx of C-diff, hx of Hepatitis B Genitourinary History: Reports: UTI, Recurrent Other Genitourinary History: current UTI [employer] History: Reports: Other (See Below) Other OB/BYN History: had miscarriage twice Musculoskeletal History: Reports: Back Pain, Chronic Neurological History: Reports: Migraines, Seizure 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, last on was 4 months ago Psychiatric History: Reports: Anxiety, Depression Endocrine/Metabolic History: Reports: Diabetes, Type I Hematologic History: Reports: Anemia, Blood Transfusion(s) Immunologic History: Reports: None Oncologic (Cancer) History: Reports: None Dermatologic History: Reports: Other (See Below) Other Dermatologic History: possible infection from port removal R upper chest - Infectious Disease History Infectious Disease History: Reports: None - Past Surgical History Head Surgeries/Procedures: Reports: None HEENT Surgical History: Reports: Tonsillectomy Cardiovascular Surgical History: Reports: None Respiratory Surgical History: Reports: None GI Surgical History: Reports: Appendectomy, Cholecystectomy, ERCP Female Surgical History: Reports: None Endocrine Surgical History: Reports: None Neurological Surgical History: Reports: None Musculoskeletal Surgical History: Reports: None Oncologic Surgical History: Reports: None Dermatological Surgical History: Reports: None - History Comment History Comment: She has had over [address] scans in the last 4 years. Social & Family History - Family History Family Medical History: Noncontributory HEENT: Reports: Impaired Vision Cardiac: Reports: Heart Failure Respiratory: Reports: Asthma GI: Reports: None : Reports: Renal Disease/Insufficiency OBGYN: Reports: Musculoskeletal: Reports: Back pain, Chronic Neurological: Reports: Seizure Psychiatric: Reports: None Endocrine/Metabolic: Reports: Diabetes, Type I Hematologic: Reports: None Immunologic: Reports: None Dermatologic: Reports: None Oncologic: Reports: Breast, Cervix - Tobacco Use Smoking Status *Q: Current Every Day Smoker Years of Tobacco use: 4 Packs/Tins Daily: 0.5 Used Tobacco, but Quit: Yes Month Tobacco Last Used: 8 months ago Second Hand Smoke Exposure: No - Caffeine Use Caffeine Use: Reports: Soda - Alcohol Use Days Per Week of Alcohol Use: 0 - Recreational Drug Use Recreational Drug Use: No Drug Use in Last 12 Months: Yes Recreational Drug Type: Reports: Other (see below) Other Recreational Drug Type: patient verbalized she took oxymorphone prior to admission Recreational Drug Use Frequency: Patient Refuses To Answer - Living Situation & Occupation Living situation: Reports: with Significant Other, with Family, Other Occupation: Unemployed H&P Review of Systems - Review of Systems: Review Of Systems: See Below General: Reports: No Symptoms, Decreased Appetite HEENT: Reports: No Symptoms Pulmonary: Reports: No Symptoms Cardiovascular: Reports: No Symptoms Gastrointestinal: Reports: Abdominal Pain (Chronic), Diarrhea, Vomiting Genitourinary: Reports: No Symptoms Musculoskeletal: Reports: No Symptoms Skin: Reports: Rash (Rash under left breast that spreads around to the back.) Psychiatric: Reports: Other (Patient tearful throughout her entire visit.) Neurological: Reports: No Symptoms Hematologic/Lymphatic: Reports: No Symptoms Immunologic: Reports: No Symptoms Exam - Exam Exam: See Below - Vital Signs Vital Signs: Last Vital Signs Temp 97 F 02/16/17 13:40 Pulse 115 H 02/16/17 13:40 Resp 18 02/16/17 13:40 BP 129/82 02/16/17 13:40 Pulse Ox 95 02/16/17 13:40 Weight: 109 lb 2.061 oz - Exam Quality Assessment: DVT Prophylaxis (SCDs, Lovenox.) General: Alert, Oriented, Cooperative HEENT: Conjunctiva Clear, Hearing Intact, Mucosa Moist & [place] Neck: Supple, Trachea Midline, 2 Lungs: Clear to Auscultation, Normal Respiratory Effort Cardiovascular: Regular Rhythm, Tachycardia GI/Abdominal Exam: Normal Bowel Sounds, Soft, No Organomegaly, No Distention, No Abnormal Bruit, No Mass, Tender (Diffuse tenderness with palpation.) Extremities: Other (Left thigh has a large mass that is tender to palpation. Is not mobile.) Peripheral Pulses: 2+: Radial (L), Radial (R), Posterior Tibial (L), Posterior Tibial (R) Skin: Warm, Dry, Intact Neuro Extensive - Mental Status: Alert, Oriented x3, Normal Cognition Neuro Extensive - Motor, Sensory, Reflexes: Normal Reflexes Psychiatric: Alert, Other (Tearful throughout our visit.) *Q Meaningful Use (ADM) - VTE *Q VTE Criteria *Q: - Stroke *Q Stroke Criteria *Q: - AMI *Q AMI Criteria *Q: - Problem List (1) Electrolyte imbalance SNOMED Code(s): 110492083 ICD Code: E87.8 - OTH DISORDERS OF ELECTROLYTE AND FLUID BALANCE, NEC Status: Acute Current Visit: Yes (2) Mass of left thigh SNOMED Code(s): 116218909 ICD Code: R22.42 - LOCALIZED SWELLING, MASS AND LUMP, LEFT LOWER LIMB Status: Acute Current Visit: Yes (3) Shingles SNOMED Code(s): 0278302 ICD Code: B02.9 - ZOSTER WITHOUT COMPLICATIONS Status: Acute Current Visit: Yes Problem List Initiated/Reviewed/Updated: Yes Orders Last 24hrs: Active Orders 24 hr Category Date Time Status Patient Status [ADT] Routine ADT 02/16/17 13:46 Active Antiembolic Devices [RC] PER UNIT ROUTINE Care 02/16/17 13:52 Active Height and Weight [RC] DAILY Care 02/16/17 13:46 Active Intake and Output [RC] QSHIFT Care 02/16/17 13:47 Active Notify Provider Vital Signs [RC] ASDIRECTED Care 02/16/17 13:47 Active Oxygen Therapy [RC] PRN Care 02/16/17 13:46 Active Pulse Oximetry [RC] PRN Care 02/16/17 13:47 Active Up With Assistance [RC] ASDIRECTED Care 02/16/17 13:46 Active VTE/DVT Education [RC] PER UNIT ROUTINE Care 02/16/17 13:46 Active Vital Signs [RC] Q4H Care 02/16/17 13:[address] [place] [employer] Diet [DIET] Diet 02/16/17 Breakfast Active Femur Min 2V Lt [CR] Routine Exams 02/16/17 14:42 Ordered PICC Line Insertion [CR] Routine Exams 02/16/17 14:45 Ordered Budesonide/Formoterol Fumarate Med 02/16/17 21:00 Ordered 1 puff INH BID Enoxaparin [Lovenox] Med 02/17/17 09:00 Active 40 mg SUBCUT DAILY Insulin Aspart [NovoLOG] Med 02/16/17 17:00 Active 20 unit SUBCUT QIDACANDBED Insulin Detemir [Levemir] Med 02/16/17 21:00 Active 15 unit SUBCUT BID LORazepam [Ativan] Med 02/16/17 13:53 Active 0.5 mg PO BID PRN Magnesium Sulfate/Water [Magnesium Sulfate 4 GM in Med 02/16/17 13:46 Active Water 100 ML] 4 gm Premix Bag 1 bag IV ONETIME Morphine Med 02/16/17 15:00 Active 30 mg PO 5XDAY Nystatin [Nystop] Med 02/16/17 14:00 Active 1 gm TOP TID Ondansetron [Zofran ODT] Med 02/16/17 13:53 Active 8 mg PO QID PRN Promethazine [Phenergan] Med 02/16/17 13:53 Active 25 mg PO Q6H PRN Sodium Chloride 0.9% [Normal Saline] 1,000 ml Med 02/16/17 14:00 Active IV ASDIRECTED valACYclovir [Valtrex] Med 02/16/17 14:00 Active 1,000 mg PO TID Sequential Compression Device [OM.PC] Per Unit Routine Oth 02/16/17 13:48 Ordered Resuscitation Status Routine Resus Stat 02/16/17 13:46 Ordered Medication Orders Enoxaparin Sodium (Lovenox) 40 mg SUBCUT DAILY PIPPA Magnesium Sulfate 4 gm/ Premix 100 mls @ 50 mls/hr IV ONETIME ONE Stop: 02/16/17 15:45 Sodium Chloride (Normal Saline) 1,000 mls @ 125 mls/hr IV ASDIRECTED PIPPA Insulin Aspart (Novolog) 20 unit SUBCUT QIDACANDBED PIPPA Insulin Detemir (Levemir) 15 unit SUBCUT BID [facility] Lorazepam (Ativan) 0.5 mg PO BID PRN PRN Reason: Anxiety Morphine Sulfate (Morphine) 30 mg PO 5XDAY [facility] Non-Formulary Medication (Budesonide/Formoterol Fumarate) 1 puff INH BID [facility] Nystatin (Nystop) 1 gm TOP TID [facility] Ondansetron HCl (Zofran Odt) 8 mg PO QID PRN PRN Reason: Nausea/Vomiting Promethazine HCl (Phenergan) 25 mg PO Q6H PRN PRN Reason: Nausea/Vomiting Valacyclovir HCl (Valtrex) 1,000 mg PO TID [facility] Assessment/Plan Comment:: 26-year-old female with chronic abdominal pain that is being admitted with electrolyte imbalances, shingles and a left thigh mass. #1. Hypomagnesemia, hypercalcemia: -We could not get IV access on the patient despite using ultrasound. Radiology is hesitant about using a PICC line for IV hydration and magnesium supplementation. Patient will be given 128 mg of magnesium chloride daily. -Patient will be encouraged to drink fluids in order to remain hydrated. -Patient will be placed on telemetry. -re-check Magnesium and other electrolytes in the morning #2. Shingles: -Patient will be placed on valacyclovir 1 g 3 times a day. #3. Left thigh mass: -Left femur x-rays pending. Can consider CT with contrast. Discharge: 1-2 days pending improvement.
--- NOTE | 2017-02-16 14:52 | PCM.SN ---
- Free Text/Narrative Note: Anesthesia called to attempt IV access for patient. Attempts made x3 to bilateral AC and right wrist all under ultrasound. Unable to obtain access. Floor RN advised to call Radiology for possible PICC line placement.
[2017-02-16] MEDS ORDERED: Morphine 15 MG Tab PO SCH (15:00)
[2017-02-16] MEDS ORDERED: Magnesium Chloride 64 MG Tab.ER PO SCH (15:15)
--- NOTE | 2017-02-16 16:04 | CR ---
EXAMINATION: Left femur HISTORY: Mass on thigh COMPARISON: None TECHNIQUE: 2 views FINDINGS/IMPRESSION: There is no acute osseous abnormality, dislocation, or fracture. Bone mineraliz ation and joint spaces appear preserved. No soft tissue abnormality is demonstrated.
[2017-02-16] MEDS ORDERED: Insulin Aspart 100 Units/ML 3 ML Pen SUBCUT SCH (17:00)
[2017-02-16] MEDS ORDERED: SYMBICORT INH SCH (21:00)
[2017-02-16] MEDS ORDERED: Insulin Detemir 100 Units/ML 3 ML Pen SUBCUT SCH (21:00)
[2017-02-17] MEDS ORDERED: Enoxaparin 40 MG/0.4 ML Syringe SUBCUT SCH (09:00)
--- NOTE | 2017-03-01 17:02 | PCM.DCSUM1 ---
Discharge Summary - Hospital Course Free Text/Narrative:: Admission diagnosis: #1. Hypomagnesemia #2. Hypercalcemia #3. Left thigh mass #4. Shingles Discharge diagnoses: #1. Hypomagnesemia #2. Hypercalcemia #3. Left thigh mass #4. Shingles Patient left AMA. 26-year-old female that was a direct admit from her primary care physician's office secondary to a magnesium level of 1 and a calcium level of 11.5. Patient was admitted for correction of these electrolyte imbalances. IV access was attempted on the patient but wasn't able to be achieved even by ultrasound. Plan was to supplement to improve magnesium with by mouth magnesium and to track her calcium with morning labs. Patient requested to leave AMA and understood that she was at increased risk of cardiac abnormalities with her magnesium as low as it was. Upon admission the patient was placed on telemetry. Before requesting to leave AMA, we did get a left femur x-ray which was unremarkable secondary to a left thigh mass. Patient was also to be continued on acyclovir which was prescribed to her by her primary care provider for a current diagnosis of shingles along the left side of the chest and back. - Discharge Data Discharge Date: 02/16/17 Discharge Disposition: Against Medical Advice 07 Condition: Good - Discharge Diagnosis/Problem(s) (1) Electrolyte imbalance SNOMED Code(s): 133690046 ICD Code: E87.8 - OTH DISORDERS OF ELECTROLYTE AND FLUID BALANCE, NEC Status: Acute (2) Mass of left thigh SNOMED Code(s): 651509769 ICD Code: R22.42 - LOCALIZED SWELLING, MASS AND LUMP, LEFT LOWER LIMB Status: Acute (3) Shingles SNOMED Code(s): 9398889 ICD Code: B02.9 - ZOSTER WITHOUT COMPLICATIONS Status: Acute - Discharge Plan Home Medications: Home Meds Insulin Detemir [Levemir] 15 unit SUBCUT BID 03/24/16 [History] LORazepam [Ativan] 1 mg PO TID PRN 03/24/16 [History] Ondansetron [Ondansetron ODT] 8 mg PO QID PRN 04/19/16 [History] Insulin Aspart [Novolog Flexpen] 16 - 20 unit SUBCUT QIDACANDBED 05/15/16 [ History] Promethazine HCl 25 mg PO Q6H PRN 08/24/16 [History] Morphine 30 mg PO 5XDAY 11/30/16 [History] Albuterol Sulfate [Proair Hfa] 1 puff IH Q4H PRN 02/16/17 [History] Budesonide/Formoterol Fumarate [Symbicort 160-4.5 Mcg Inhaler] 1 puff INH BID [History] - Discharge Summary/Plan Comment DC Time >30 min.: No Discharge Summary/Plan Comment: Admission diagnosis: #1. Hypomagnesemia #2. Hypercalcemia #3. Left thigh mass #4. Shingles Discharge diagnoses: #1. Hypomagnesemia #2. Hypercalcemia #3. Left thigh mass #4. Shingles Patient left AMA. 26-year-old female that was a direct admit from her primary care physician's office secondary to a magnesium level of 1 and a calcium level of 11.5. Patient was admitted for correction of these electrolyte imbalances. IV access was attempted on the patient but wasn't able to be achieved even by ultrasound. Plan was to supplement to improve magnesium with by mouth magnesium and to track her calcium with morning labs. Patient requested to leave AM and understood that she was at increased risk of cardiac abnormalities with her magnesium as low as it was. Upon admission the patient was placed on telemetry. Before requesting to leave [place], we did get a left femur x-ray which was unremarkable secondary to a left thigh mass. Patient was also to be continued on acyclovir which was prescribed to her by her primary care provider for a current diagnosis of shingles along the left side of the chest and back. Discharge plan: #1. Patient left AMA - Patient Data Vitals - Most Recent: Last Vital Signs Temp 97 F 02/16/17 16:00 Pulse 115 H 02/16/17 16:00 Resp 18 02/16/17 16:00 BP 129/82 02/16/17 16:00 Pulse Ox 95 02/16/17 16:00 Weight - Most Recent: 109 lb 2.061 oz Med Orders - Current: Current Medications Discontinued Medications Enoxaparin Sodium (Lovenox) 40 mg SUBCUT DAILY PIPPA Magnesium Sulfate 4 gm/ Premix 100 mls @ 50 mls/hr IV ONETIME ONE Stop: 02/16/17 15:45 Last Admin: 02/16/17 15:48 Dose: Not Given Sodium Chloride (Normal Saline) 1,000 mls @ 125 mls/hr IV ASDIRECTED [facility] Insulin Aspart (Novolog) 20 unit SUBCUT QIDACANDBED [facility] Last Admin: 02/16/17 17:02 Dose: Not Given Insulin Detemir (Levemir) 15 unit SUBCUT BID [facility] Lidocaine HCl (Lidocaine 5%) 1 gm TOP ONETIME ONE Stop: 02/16/17 13:46 Last Admin: 02/16/17 14:36 Dose: Not Given Lidocaine HCl (Xylocaine 4% Top Soln) 1 ml TOP ONETIME ONE Stop: 02/16/17 14:01 Last Admin: 02/16/17 14:34 Dose: 1 applic Lorazepam (Ativan) 0.5 mg PO BID PRN PRN Reason: Anxiety Magnesium Chloride (Mag-64) 128 mg PO DAILY [facility] Last Admin: 02/16/17 15:38 Dose: 128 mg Morphine Sulfate (Morphine) 30 mg PO 5XDAY [facility] Last Admin: 02/16/17 15:39 Dose: 30 mg Non-Formulary Medication (Morphine) 30 mg PO Q4H PRN PRN Reason: Pain Nystatin (Nystop) 1 gm TOP TID [facility] Last Admin: 02/16/17 15:40 Dose: 1 applic Ondansetron HCl (Zofran Odt) 4 mg PO Q4H PRN PRN Reason: nausea, able to take PO Ondansetron HCl (Zofran Odt) 8 mg PO QID PRN PRN Reason: Nausea/Vomiting Symbicort 160-4.5mcg (Budesonide/Formoterol Fumarate) 1 each INH BID [facility] Promethazine HCl (Phenergan) 25 mg PO Q6H PRN PRN Reason: Nausea/Vomiting Valacyclovir HCl (Valtrex) 1,000 mg PO TID [facility] Last Admin: 02/16/17 15:39 Dose: 1,000 mg *Q Meaningful Use (DIS) - VTE *Q VTE Criteria *Q: - Stroke *Q Stroke Criteria *Q: - AMI *Q AMI Criteria *Q:
== END 2017-02-16 18:19 | disposition critical access hospital (66) ==
LOC: MW.MS 13:38
PROVIDERS: ADMIT Family Medicine; ATTEND Family Medicine
DX: E83.42 Hypomagnesemia (principal); E83.52 Hypercalcemia; R22.42 Localized swelling, mass and lump, left lower limb; B02.9 Zoster without complications; J45.909 Unspecified asthma, uncomplicated; E10.9 Type 1 diabetes mellitus without complications; F17.210 Nicotine dependence, cigarettes, uncomplicated; Z88.0 Allergy status to penicillin; Z88.6 Allergy status to analgesic agent; Z88.8 Allergy status to other drugs, medicaments and biological substances; Z79.4 Long term (current) use of insulin; Z79.51 Long term (current) use of inhaled steroids; Z79.899 Other long term (current) drug therapy; Z86.19 Personal history of other infectious and parasitic diseases; Z87.440 Personal history of urinary (tract) infections; Z90.49 Acquired absence of other specified parts of digestive tract; Z90.89 Acquired absence of other organs; Z98.890 Other specified postprocedural states
CPT/HCPCS: 73552; 82962; A9270; J1815; G0378; G0379

== ENCOUNTER 2017-03-20 23:12 | Inpatient (IN) | payer MEDICAID ==
[2017-03-20] MEDS ORDERED: Ondansetron 4 MG/2 ML SDV IVPUSH ONE (23:23)
[2017-03-20] MEDS ORDERED: Sodium Chloride 0.9% 1,000 ML IV ONE (23:23)
--- NOTE | 2017-03-20 23:37 | EDM.PDOC ---
ED HPI GENERAL MEDICAL PROBLEM - General Chief Complaint: Diabetic Complaint Stated Complaint: PT HAS LOW SUGAR LEVELS Time Seen by Provider: 03/20/17 23:33 - History of Present Illness INITIAL COMMENTS - FREE TEXT/NARRATIVE: HISTORY AND PHYSICAL: History of present illness: Patient is 26-year-old female well-known to my department presents with a concern of elevated blood sugar patient has history of chronic pain syndrome medical noncompliance and multiple other medical problems have been no fever chills nausea vomiting or other complaints Review of systems: As per history of present illness and below otherwise all systems reviewed and negative. Past medical history: As per history of present illness and as reviewed below otherwise noncontributory. Surgical history: As per history of present illness and as reviewed below otherwise noncontributory. Social history: No reported history of drug or alcohol abuse. Family history: As per history of present illness and as reviewed below otherwise noncontributory. Physical exam: HEENT: Atraumatic, normocephalic, pupils reactive, negative for conjunctival pallor or scleral icterus, mucous membranes dry, throat clear, neck supple, nontender, trachea midline. Lungs: Clear to auscultation, breath sounds equal bilaterally, chest nontender. Heart: S1S2, regular, negative for clicks, rubs, or JVD. Abdomen: Soft, nondistended, nontender. Negative for masses or hepatosplenomegaly. Negative for costovertebral tenderness. Pelvis: Stable nontender. Genitourinary: Deferred. Rectal: Deferred. Extremities: Atraumatic, negative for cords or calf pain. Neurovascular unremarkable. Neuro: Somnolent followscommands moves all extremities limited grossly nonfocal exam Diagnostics: CBC CMP ABG UA hCG Therapeutics: Normal saline 1 L bolus Zofran 4 mg IV Impression: #1 diabetic ketoacidosis #2 medical noncompliance Definitive disposition and diagnosis as appropriate pending reevaluation and review of above. Abdomen Pain Score (Numeric/FACES): 10 - Related Data Allergies Allergy/AdvReac Type Severity Reaction Status Date / Time acetaminophen [From Tylenol] Allergy Liver Verified 12/26/16 07:06 Problems amoxicillin Allergy Hives Verified 12/26/16 07:06 amoxicillin trihydrate Allergy Hives Verified 12/26/16 07:06 [From Amoxil] ibuprofen Allergy Liver Verified 12/26/16 07:06 Problems ketorolac tromethamine Allergy Hives Verified 12/26/16 07:06 [From Toradol] metoclopramide HCl Allergy Airway Verified 12/26/16 07:06 [From Reglan] Tightness tramadol Allergy Hives Verified 12/26/16 07:06 haldol Allergy Swelling Uncoded 12/26/16 07:06 Home Meds: Home Meds Insulin Detemir [Levemir] 15 unit SUBCUT BID 03/24/16 [History] LORazepam [Ativan] 1 mg PO TID PRN 03/24/16 [History] Ondansetron [Ondansetron ODT] 8 mg PO QID PRN 04/19/16 [History] Insulin Aspart [Novolog Flexpen] 16 - 20 unit SUBCUT QIDACANDBED 05/15/16 [ History] Promethazine HCl 25 mg PO Q6H PRN 08/24/16 [History] Morphine 30 mg PO 5XDAY 11/30/16 [History] Albuterol Sulfate [Proair Hfa] 1 puff IH Q4H PRN 02/16/17 [History] Budesonide/Formoterol Fumarate [Symbicort 160-4.5 Mcg Inhaler] 1 puff INH BID [History] Past Medical History - Past Health History Medical/Surgical History: Denies Medical/Surgical History HEENT History: Reports: Allergic Rhinitis Other HEENT History: dental abcess Cardiovascular History: Reports: None Respiratory History: Reports: Asthma Gastrointestinal History: Reports: GI Bleed, Hepatitis, PUD, Other (See Below) Other Gastrointestinal History: hx of C-diff, hx of Hepatitis B Genitourinary History: Reports: UTI, Recurrent Other Genitourinary History: current UTI [employer] History: Reports: Other (See Below) Other OB/BYN History: had miscarriage twice Musculoskeletal History: Reports: Back Pain, Chronic Neurological History: Reports: Migraines, Seizure 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, last on was 4 months ago Psychiatric History: Reports: Anxiety, Depression Endocrine/Metabolic History: Reports: Diabetes, Type I Hematologic History: Reports: Anemia, Blood Transfusion(s) Immunologic History: Reports: None Oncologic (Cancer) History: Reports: None Dermatologic History: Reports: Other (See Below) Other Dermatologic History: possible infection from port removal R upper chest - Infectious Disease History Infectious Disease History: Reports: None - Past Surgical History Head Surgeries/Procedures: Reports: None HEENT Surgical History: Reports: Tonsillectomy Cardiovascular Surgical History: Reports: None Respiratory Surgical History: Reports: None GI Surgical History: Reports: Appendectomy, Cholecystectomy, ERCP Female Surgical History: Reports: None Endocrine Surgical History: Reports: None Neurological Surgical History: Reports: None Musculoskeletal Surgical History: Reports: None Oncologic Surgical History: Reports: None Dermatological Surgical History: Reports: None - History Comment History Comment: She has had over [address] scans in the last 4 years. Social & Family History - Family History Family Medical History: Noncontributory HEENT: Reports: Impaired Vision Cardiac: Reports: Heart Failure Respiratory: Reports: Asthma GI: Reports: None : Reports: Renal Disease/Insufficiency OBGYN: Reports: Musculoskeletal: Reports: Back pain, Chronic Neurological: Reports: Seizure Psychiatric: Reports: None Endocrine/Metabolic: Reports: Diabetes, Type I Hematologic: Reports: None Immunologic: Reports: None Dermatologic: Reports: None Oncologic: Reports: Breast, Cervix - Tobacco Use Smoking Status *Q: Current Every Day Smoker Years of Tobacco use: 4 Packs/Tins Daily: 0.5 Used Tobacco, but Quit: Yes Month Tobacco Last Used: 8 months ago Second Hand Smoke Exposure: No - Caffeine Use Caffeine Use: Reports: Soda - Alcohol Use Days Per Week of Alcohol Use: 0 - Recreational Drug Use Recreational Drug Use: No Drug Use in Last 12 Months: Yes Recreational Drug Type: Reports: Other (see below) Other Recreational Drug Type: patient verbalized she took oxymorphone prior to admission Recreational Drug Use Frequency: Patient Refuses To Answer - Living Situation & Occupation Living situation: Reports: with Significant Other, with Family, Other Occupation: Unemployed ED ROS GENERAL - Review of Systems Review Of Systems: ROS reveals no pertinent complaints other than HPI. ED EXAM GENERAL NO PERIP PULSE - Physical Exam Exam: See Below Course - Vital Signs Last Recorded V/S: Last Vital Signs Temp 36.5 C 03/21/17 01:40 Pulse 128 H 03/21/17 01:40 Resp 27 H 03/21/17 01:40 BP 120/83 03/21/17 01:40 Pulse Ox 99 03/21/17 01:40 - Orders/Labs/Meds Orders: Active Orders 24 hr Category Date Time Status Patient Status [ADT] Stat ADT 03/21/17 01:58 Ordered Insulin Regular, Human [NovoLIN R] 100 unit Med 03/21/17 01:15 Active Sodium Chloride 0.9% [Normal Saline] 99 ml IV TITRATE Sodium Chloride 0.9% [Normal Saline] 1,000 ml Med 03/21/17 01:05 Active IV .Bolus Medication Orders Sodium Chloride (Normal Saline) 1,000 mls @ 999 mls/hr IV .Bolus ONE Stop: 03/21/17 02:05 Last Admin: 03/21/17 01:14 Dose: 999 mls/hr Insulin Human Regular 100 unit (/ Sodium Chloride) 100 mls @ 5 mls/hr IV TITRATE PIPPA; 5 UNIT/HR PRN Reason: Protocol Last Admin: 03/21/17 01:35 Dose: 5 unit/hr, 5 mls/hr Labs: Laboratory Tests 03/20/17 03/20/17 03/21/17 Range/Units 23:35 23:50 00:30 WBC (4.0-11.0) K/uL RBC (4.30-5.90) M/uL Hgb (12.0-16.0) g/dL Hct (36.0-46.0) % MCV (80.0-98.0) fL MCH (27.0-32.0) pg MCHC (31.0-37.0) g/dL RDW Std Deviation (28.0-62.0) fl RDW Coeff of Zak (11.0-15.0) % Plt Count (150-400) K/uL MPV (7.40-12.00) fL Neut % (Auto) (48.0-80.0) % Lymph % (Auto) (16.0-40.0) % Summers % (Auto) (0.0-15.0) % Eos % (Auto) (0.0-7.0) % Baso % (Auto) (0.0-1.5) % Neut # (Auto) (1.4-5.7) K/uL Lymph # (Auto) (0.6-2.4) K/uL Summers # (Auto) (0.0-0.8) K/uL Eos # (Auto) (0.0-0.7) K/uL Baso # (Auto) (0.0-0.1) K/uL Nucleated RBC % /100WBC Nucleated RBCs # K/uL ABG pH 7.100 L* (7.35-7.45) ABG pCO2 < 19 L (35-45) mmHG ABG pO2 137 H (75-100) mmHG ABG HCO3 3 ABG Total CO2 < 5 ABG Base Excess -24 L (-2.0-2.0) Sodium (136-146) mmol/L Potassium (3.5-5.1) mmol/L Chloride (98-110) mmol/L Carbon Dioxide (21-31) mmol/L BUN (6.0-23.0) mg/dL Creatinine (0.6-1.5) mg/dL Est Cr Clr Drug Dosing mL/min Estimated GFR (MDRD) ml/min Glucose (60-110) mg/dL POC Glucose > 500 H (60-110) mg/dL Calcium (8.8-10.8) mg/dL Total Bilirubin (0.1-1.5) mg/dL AST (5-40) IU/L ALT (8-54) IU/L Alkaline Phosphatase (40-150) Total Protein (6.0-8.0) g/dL Albumin (3.5-5.0) g/dL Globulin (2.0-3.5) g/dL Albumin/Globulin Ratio (1.3-2.8) Urine Color YELLOW Urine Appearance CLEAR Urine pH 5.5 (5.0-8.0) Ur Specific [place] 1.010 (1.001-1.035) Urine Protein NEGATIVE (NEGATIVE) mg/dL Urine Glucose (UA) >=1000 (NEGATIVE) mg/dL Urine Ketones >=80 (NEGATIVE) mg/dL Urine Occult Blood MODERATE (NEGATIVE) Urine Nitrite NEGATIVE (NEGATIVE) Urine Bilirubin NEGATIVE (NEGATIVE) Urine Urobilinogen 0.2 (<2.0) EU/dL Ur Leukocyte Esterase NEGATIVE (NEGATIVE) Urine RBC 2-4 (0-2/HPF) Urine WBC 0-2 (0-5/HPF) Ur Epithelial Cells FEW (NONE-FEW) Urine Bacteria RARE (NEGATIVE) Ketones (NEG) 03/21/17 03/21/17 03/21/17 Range/Units 00:50 00:50 00:50 WBC 10.77 (4.0-11.0) K/uL RBC 4.66 (4.30-5.90) M/uL Hgb 14.2 (12.0-16.0) g/dL Hct 46.0 (36.0-46.0) % MCV 98.7 H (80.0-98.0) fL MCH 30.5 (27.0-32.0) pg MCHC 30.9 L (31.0-37.0) g/dL RDW Std Deviation 53.4 (28.0-62.0) fl RDW Coeff of Zak 15 (11.0-15.0) % Plt Count 342 (150-400) K/uL MPV 10.90 (7.40-12.00) fL Neut % (Auto) 62.3 (48.0-80.0) % Lymph % (Auto) 31.8 (16.0-40.0) % Summers % (Auto) 5.2 (0.0-15.0) % Eos % (Auto) 0.3 (0.0-7.0) % Baso % (Auto) 0.4 (0.0-1.5) % Neut # (Auto) 6.7 H (1.4-5.7) K/uL Lymph # (Auto) 3.4 H (0.6-2.4) K/uL Summers # (Auto) 0.6 (0.0-0.8) K/uL Eos # (Auto) 0.0 (0.0-0.7) K/uL Baso # (Auto) 0.0 (0.0-0.1) K/uL Nucleated RBC % 0.0 /100WBC Nucleated RBCs # 0 K/uL ABG pH (7.35-7.45) ABG pCO2 (35-45) mmHG ABG pO2 (75-100) mmHG ABG HCO3 ABG Total CO2 ABG Base Excess (-2.0-2.0) Sodium 143 (136-146) mmol/L Potassium 3.5 (3.5-5.1) mmol/L Chloride 108 (98-110) mmol/L Carbon Dioxide < 5 L (21-31) mmol/L BUN 21 (6.0-23.0) mg/dL Creatinine 1.8 H (0.6-1.5) mg/dL Est Cr Clr Drug Dosing 33.72 mL/min Estimated GFR (MDRD) 33.8 ml/min Glucose 830 H* (60-110) mg/dL POC Glucose (60-110) mg/dL Calcium 9.5 (8.8-10.8) mg/dL Total Bilirubin 0.3 (0.1-1.5) mg/dL AST 85 H (5-40) IU/L ALT 89 H (8-54) IU/L Alkaline Phosphatase 234 H (40-150) Total Protein 9.2 H (6.0-8.0) g/dL Albumin 4.9 (3.5-5.0) g/dL Globulin 4.3 H (2.0-3.5) g/dL Albumin/Globulin Ratio 1.1 L (1.3-2.8) Urine Color Urine Appearance Urine pH (5.0-8.0) Ur Specific [place] (1.001-1.035) Urine Protein (NEGATIVE) mg/dL Urine Glucose (UA) (NEGATIVE) mg/dL Urine Ketones (NEGATIVE) mg/dL Urine Occult Blood (NEGATIVE) Urine Nitrite (NEGATIVE) Urine Bilirubin (NEGATIVE) Urine Urobilinogen (<2.0) EU/dL Ur Leukocyte Esterase (NEGATIVE) Urine RBC (0-2/HPF) Urine WBC (0-5/HPF) Ur Epithelial Cells (NONE-FEW) Urine Bacteria (NEGATIVE) Ketones LARGE H (NEG) 03/21/17 Range/Units 01:16 WBC (4.0-11.0) K/uL RBC (4.30-5.90) M/uL Hgb (12.0-16.0) g/dL Hct (36.0-46.0) % MCV (80.0-98.0) fL MCH (27.0-32.0) pg MCHC (31.0-37.0) g/dL RDW Std Deviation (28.0-62.0) fl RDW Coeff of Zak (11.0-15.0) % Plt Count (150-400) K/uL MPV (7.40-12.00) fL Neut % (Auto) (48.0-80.0) % Lymph % (Auto) (16.0-40.0) % Summers % (Auto) (0.0-15.0) % Eos % (Auto) (0.0-7.0) % Baso % (Auto) (0.0-1.5) % Neut # (Auto) (1.4-5.7) K/uL Lymph # (Auto) (0.6-2.4) K/uL Summers # (Auto) (0.0-0.8) K/uL Eos # (Auto) (0.0-0.7) K/uL Baso # (Auto) (0.0-0.1) K/uL Nucleated RBC % /100WBC Nucleated RBCs # K/uL ABG pH (7.35-7.45) ABG pCO2 (35-45) mmHG ABG pO2 (75-100) mmHG ABG HCO3 ABG Total CO2 ABG Base Excess (-2.0-2.0) Sodium (136-146) mmol/L Potassium (3.5-5.1) mmol/L Chloride (98-110) mmol/L Carbon Dioxide (21-31) mmol/L BUN (6.0-23.0) mg/dL Creatinine (0.6-1.5) mg/dL Est Cr Clr Drug Dosing mL/min Estimated GFR (MDRD) ml/min Glucose (60-110) mg/dL POC Glucose > 500 H (60-110) mg/dL Calcium (8.8-10.8) mg/dL Total Bilirubin (0.1-1.5) mg/dL AST (5-40) IU/L ALT (8-54) IU/L Alkaline Phosphatase (40-150) Total Protein (6.0-8.0) g/dL Albumin (3.5-5.0) g/dL Globulin (2.0-3.5) g/dL Albumin/Globulin Ratio (1.3-2.8) Urine Color Urine Appearance Urine pH (5.0-8.0) Ur Specific [place] (1.001-1.035) Urine Protein (NEGATIVE) mg/dL Urine Glucose (UA) (NEGATIVE) mg/dL Urine Ketones (NEGATIVE) mg/dL Urine Occult Blood (NEGATIVE) Urine Nitrite (NEGATIVE) Urine Bilirubin (NEGATIVE) Urine Urobilinogen (<2.0) EU/dL Ur Leukocyte Esterase (NEGATIVE) Urine RBC (0-2/HPF) Urine WBC (0-5/HPF) Ur Epithelial Cells (NONE-FEW) Urine Bacteria (NEGATIVE) Ketones (NEG) Meds: Medications Generic Name Dose Route Start Last Admin Trade Name Freq PRN Reason Stop Dose Admin Sodium Chloride 1,000 mls @ 999 mls/hr 03/21/17 01:05 03/21/17 01:14 Normal Saline IV 03/21/17 02:05 999 mls/hr .Bolus ONE Administration Insulin Human Regular 100 unit 100 mls @ 5 mls/hr 03/21/17 01:15 03/21/17 01: 35 / Sodium Chloride IV 5 unit/hr TITRATE PIPPA 5 mls/hr Protocol Administration 5 UNIT/HR Discontinued Medications Generic Name Dose Route Start Last Admin Trade Name Freq PRN Reason Stop Dose Admin Sodium Chloride 1,000 mls @ 999 mls/hr 03/20/17 23:23 03/20/17 23:40 Normal Saline IV 03/21/17 00:23 999 mls/hr .Bolus ONE Administration Insulin Human Regular 10 unit 03/20/17 23:54 03/21/17 00:08 Novolin R IVPUSH 03/20/17 23:55 10 units ONETIME ONE Administration Protocol Insulin Human Regular 10 unit 03/20/17 23:55 03/21/17 00:10 Novolin R SUBCUT 03/20/17 23:56 10 units ONETIME STA Administration Protocol Ondansetron HCl 4 mg 03/20/17 23:23 03/20/17 23:47 Zofran IVPUSH 03/20/17 23:24 4 mg ONETIME ONE Administration Departure - Departure Time of Disposition: 02:00 Disposition: Admitted As Inpatient 65 Condition: Good Clinical Impression: Diabetic ketoacidosis Qualifiers: Diabetes mellitus type: type 1 Diabetes mellitus complication detail: without coma Qualified Code(s): E10.10 - Type 1 diabetes mellitus with ketoacidosis without coma - Discharge Information Referrals: PCP,None [Primary Care Provider] - Forms: ED Department Discharge - My Orders Last 24 Hours: My Active Orders 03/21/17 01:05 Sodium Chloride 0.9% [Normal Saline] 1,000 ml IV .Bolus 03/21/17 01:15 Insulin Regular, Human [NovoLIN R] 100 unit Sodium Chloride 0.9% [Normal Saline] 99 ml IV TITRATE 03/21/17 01:58 Patient Status [ADT] Stat - Assessment/Plan Last 24 Hours: My Active Orders 03/21/17 01:05 Sodium Chloride 0.9% [Normal Saline] 1,000 ml IV .Bolus 03/21/17 01:15 Insulin Regular, Human [NovoLIN R] 100 unit Sodium Chloride 0.9% [Normal Saline] 99 ml IV TITRATE 03/21/17 01:58 Patient Status [ADT] Stat
[2017-03-20] MEDS ORDERED: Insulin Regular, Human 100 Units/ML 10 ML Vial IVPUSH ONE (23:54)
[2017-03-20] MEDS ORDERED: Insulin Regular, Human 100 Units/ML 10 ML Vial SUBCUT STA (23:55)
[2017-03-21] MEDS ORDERED: Sodium Chloride 0.9% 1,000 ML IV ONE (01:05)
[2017-03-21 01:15] LABS: CHLORIDE,CL 108 mmol/L (98-110); SODIUM,NA 143 mmol/L (136-146)
[2017-03-21] MEDS ORDERED: NS + KCl 20mEq/L 1,000 ML IV SCH (03:00)
[2017-03-21] MEDS ORDERED: Temazepam 15 MG Cap PO PRN (03:02)
[2017-03-21] MEDS ORDERED: HYDROmorphone 2 MG/ML Syringe IVPUSH PRN (03:02)
[2017-03-21] MEDS ORDERED: Levalbuterol HCl 1.25 MG/0.5 ML Neb NEB PRN (03:10)
--- NOTE | 2017-03-21 03:15 | PCM.HP ---
H&P History of Present Illness - General Date of Service: 03/21/17 Admit Problem/Dx: Admission Diagnosis/Problem Admission Diagnosis/Problem Diabetic ketoacidosis Source of Information: Patient, Family, Provider - History of Present Illness Initial Comments - Free Text/Narative: she has had vomiting for a few days. She was brought to the ED and diagnosed with DKA. Abdomen Pain Score (Numeric/FACES): 0 - Related Data Allergies/Adverse Reactions: Allergies Allergy/AdvReac Type Severity Reaction Status Date / Time acetaminophen [From Tylenol] Allergy Liver Verified 12/26/16 07:06 Problems amoxicillin Allergy Hives Verified 12/26/16 07:06 amoxicillin trihydrate Allergy Hives Verified 12/26/16 07:06 [From Amoxil] ibuprofen Allergy Liver Verified 12/26/16 07:06 Problems ketorolac tromethamine Allergy Hives Verified 12/26/16 07:06 [From Toradol] metoclopramide HCl Allergy Airway Verified 12/26/16 07:06 [From Reglan] Tightness tramadol Allergy Hives Verified 12/26/16 07:06 haldol Allergy Swelling Uncoded 12/26/16 07:06 Home Medications: Home Meds Insulin Detemir [Levemir] 15 unit SUBCUT BID 03/24/16 [History] LORazepam [Ativan] 1 mg PO TID PRN 03/24/16 [History] Ondansetron [Ondansetron ODT] 8 mg PO QID PRN 04/19/16 [History] Insulin Aspart [Novolog Flexpen] 16 - 20 unit SUBCUT QIDACANDBED 05/15/16 [ History] Promethazine HCl 25 mg PO Q6H PRN 08/24/16 [History] Morphine 30 mg PO 5XDAY 11/30/16 [History] Albuterol Sulfate [Proair Hfa] 1 puff IH Q4H PRN 02/16/17 [History] Budesonide/Formoterol Fumarate [Symbicort 160-4.5 Mcg Inhaler] 1 puff INH BID [History] Past Medical History - Past Health History Medical/Surgical History: Denies Medical/Surgical History HEENT History: Reports: Allergic Rhinitis Other HEENT History: dental abcess Cardiovascular History: Reports: None Respiratory History: Reports: Asthma Gastrointestinal History: Reports: GI Bleed, Hepatitis, PUD, Other (See Below) Other Gastrointestinal History: hx of C-diff, hx of Hepatitis B Genitourinary History: Reports: UTI, Recurrent Other Genitourinary History: current UTI SPUDDER History: Reports: Other (See Below) Other OB/BYN History: had miscarriage twice Musculoskeletal History: Reports: Back Pain, Chronic Neurological History: Reports: Migraines, Seizure 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, last on was 4 months ago Psychiatric History: Reports: Anxiety, Depression Endocrine/Metabolic History: Reports: Diabetes, Type I Hematologic History: Reports: Anemia, Blood Transfusion(s) Immunologic History: Reports: None Oncologic (Cancer) History: Reports: None Dermatologic History: Reports: Other (See Below) Other Dermatologic History: possible infection from port removal R upper chest - Infectious Disease History Infectious Disease History: Reports: None - Past Surgical History Head Surgeries/Procedures: Reports: None HEENT Surgical History: Reports: Tonsillectomy Cardiovascular Surgical History: Reports: None Respiratory Surgical History: Reports: None GI Surgical History: Reports: Appendectomy, Cholecystectomy, ERCP Female Surgical History: Reports: None Endocrine Surgical History: Reports: None Neurological Surgical History: Reports: None Musculoskeletal Surgical History: Reports: None Oncologic Surgical History: Reports: None Dermatological Surgical History: Reports: None - History Comment History Comment: She has had over [address] scans in the last 4 years. Social & Family History - Family History Family Medical History: Noncontributory HEENT: Reports: Impaired Vision Cardiac: Reports: Heart Failure Respiratory: Reports: Asthma GI: Reports: None : Reports: Renal Disease/Insufficiency OBGYN: Reports: Musculoskeletal: Reports: Back pain, Chronic Neurological: Reports: Seizure Psychiatric: Reports: None Endocrine/Metabolic: Reports: Diabetes, Type I Hematologic: Reports: None Immunologic: Reports: None Dermatologic: Reports: None Oncologic: Reports: Breast, Cervix - Tobacco Use Smoking Status *Q: Current Every Day Smoker Years of Tobacco use: 4 Packs/Tins Daily: 0.5 Used Tobacco, but Quit: Yes Month Tobacco Last Used: 8 months ago Second Hand Smoke Exposure: No - Caffeine Use Caffeine Use: Reports: Soda - Alcohol Use Days Per Week of Alcohol Use: 0 - Recreational Drug Use Recreational Drug Use: No Drug Use in Last 12 Months: Yes Recreational Drug Type: Reports: Other (see below) Other Recreational Drug Type: patient verbalized she took oxymorphone prior to admission Recreational Drug Use Frequency: Patient Refuses To Answer - Living Situation & Occupation Living situation: Reports: with Significant Other, with Family, Other Occupation: Unemployed H&P Review of Systems - Review of Systems: Review Of Systems: See Below General: Denies: Fever Pulmonary: Reports: Other (tachypnea) Gastrointestinal: Reports: Abdominal Pain (chronic), Vomiting. Denies: Black Stool, Bloody Stool, Hematemesis, Hematochezia Genitourinary: Denies: Hematuria Exam - Exam Exam: See Below - Vital Signs Vital Signs: Last Vital Signs Temp 97.7 F 03/21/17 01:40 Pulse 128 H 03/21/17 01:40 Resp 33 H 03/21/17 02:30 BP 129/88 03/21/17 02:30 Pulse Ox 99 03/21/17 02:30 Weight: 51 kg - Exam General: Lethargic, Other (answers questions) HEENT: EOMI, Other (lips dry) Lungs: Clear to Auscultation, Other (accessory muscles of respiration noted) GI/Abdominal Exam: Soft, Other (diffuse tenderness) (Female) Exam: Deferred Rectal (Female) Exam: Deferred Extremities: No: No Pedal Edema, Slow Capillary Refill Neurological: Normal Speech Neuro Extensive - Motor, Sensory, Reflexes: No: Facial palsy (L), Facial Palsy ( R) Psychiatric: No: Agitated - Patient Data Lab Results Last 24 hrs: Laboratory Results - last 24 hr 03/21/17 Range/Units 02:38 POC Glucose 285 H (60-110) mg/dL Result Diagrams: 03/21/17 00:50 03/21/17 00:50 *Q Meaningful Use (ADM) - VTE *Q VTE Criteria *Q: - Stroke *Q Stroke Criteria *Q: - AMI *Q AMI Criteria *Q: - Problem List (1) Diabetic ketoacidosis SNOMED Code(s): 839444910, 192934459 ICD Code: E13.10 - OTH DIABETES MELLITUS WITH KETOACIDOSIS WITHOUT COMA Status: Acute Priority: High Current Visit: Yes Problem Details: continue monitoring via electronic ICU Qualifiers: Diabetes mellitus type: type 1 Diabetes mellitus complication detail: without coma Qualified Code(s): E10.10 - Type 1 diabetes mellitus with ketoacidosis without coma (2) Chronic abdominal pain SNOMED Code(s): 988520221 ICD Code: R10.9 - UNSPECIFIED ABDOMINAL PAIN; G89.29 - OTHER CHRONIC PAIN Status: Acute Current Visit: No (3) Elevated liver enzymes SNOMED Code(s): 253176683 ICD Code: R74.8 - ABNORMAL LEVELS OF OTHER SERUM ENZYMES Status: Acute Current Visit: No Problem List Initiated/Reviewed/Updated: Yes Orders Last 24hrs: Active Orders 24 hr Category Date Time Status Antiembolic Devices [RC] PER UNIT ROUTINE Care 03/21/17 03:03 Ordered Blood Glucose Check, Bedside [RC] Q1H Care 03/21/17 03:02 Ordered Oxygen Therapy [RC] PRN Care 03/21/17 03:01 Ordered Oxygen Therapy [RC] PRN Care 03/21/17 03:02 Ordered RT Aerosol Therapy [RC] ASDIRECTED Care 03/21/17 03:10 Ordered VTE/DVT Education [RC] PER UNIT ROUTINE Care 03/21/17 03:01 Ordered VTE/DVT Education [RC] PER UNIT ROUTINE Care 03/21/17 03:02 Ordered Vital Signs [RC] Q4H Care 03/21/17 03:01 Ordered Vital Signs [RC] Q4H Care 03/21/17 03:02 Ordered Clear Liquid Diet [DIET] Diet 03/21/17 Breakfast Active BASIC METABOLIC PANEL,BMP [CHEM] Q4H Lab 03/21/17 07:00 Ordered BASIC METABOLIC PANEL,BMP [CHEM] Q4H Lab 03/21/17 11:00 Ordered BASIC METABOLIC PANEL,BMP [CHEM] Q4H Lab 03/21/17 15:00 Ordered BASIC METABOLIC PANEL,BMP [CHEM] Q4H Lab 03/21/17 19:00 Ordered CBC WITH AUTO DIFF [HEME] AM Lab 03/21/17 05:11 Ordered CBC WITH AUTO DIFF [HEME] AM Lab 03/22/17 05:11 Ordered CBC WITH AUTO DIFF [HEME] AM Lab 03/23/17 05:11 Ordered COMPREHENSIVE METABOLIC PN,CMP [CHEM] AM Lab 03/22/17 05:11 Ordered COMPREHENSIVE METABOLIC PN,CMP [CHEM] AM Lab 03/23/17 05:11 Ordered COMPREHENSIVE METABOLIC PN,CMP [CHEM] AM Lab 03/24/17 05:11 Ordered MAGNESIUM [CHEM] Q4H Lab 03/21/17 07:00 Ordered MAGNESIUM [CHEM] Q4H Lab 03/21/17 11:00 Ordered MAGNESIUM [CHEM] Q4H Lab 03/21/17 15:00 Ordered MAGNESIUM [CHEM] Q4H Lab 03/21/17 19:00 Ordered Budesonide/Formoterol Fumarate Med 03/21/17 09:00 Ordered 1 puff INH BID HYDROmorphone [Dilaudid] Med 03/21/17 03:02 Ordered 2 mg IVPUSH Q2H PRN Insulin Regular, Human [NovoLIN R] 100 unit Med 03/21/17 03:00 Ordered Sodium Chloride 0.9% [Normal Saline] 99 ml IV TITRATE Levalbuterol HCl [Xopenex] Med 03/21/17 03:10 Ordered 1.25 mg NEB Q4H PRN NS + KCl 20mEq/L [Normal Saline with 20 mEq KCl] 1,000 Med 03/21/17 03:00 Ordered ml IV ASDIRECTED Ondansetron [Zofran] Med 03/21/17 03:02 Ordered 4 mg IVPUSH Q4H PRN Temazepam [Restoril] Med 03/21/17 03:02 Ordered 15 mg PO BEDTIME PRN Sequential Compression Device [OM.PC] Per Unit Routine Oth 03/21/17 03:02 Ordered Resuscitation Status Routine Resus Stat 03/21/17 03:01 Ordered Medication Orders Hydromorphone HCl (Dilaudid) 2 mg IVPUSH Q2H PRN PRN Reason: Pain (severe 7-10) Insulin Human Regular 100 unit (/ Sodium Chloride) 100 mls @ 6 mls/hr IV TITRATE PIPPA; 6 UNIT/HR PRN Reason: Protocol Potassium Chloride/Sodium Chloride (Normal Saline With 20 Meq Kcl) 1,000 mls @ 250 mls/hr IV ASDIRECTED PIPPA Non-Formulary Medication (Budesonide/Formoterol Fumarate) 1 puff INH BID PIPPA Ondansetron HCl (Zofran) 4 mg IVPUSH Q4H PRN PRN Reason: Nausea Temazepam (Restoril) 15 mg PO BEDTIME PRN PRN Reason: Sleep Assessment/Plan Comment:: admit to ICU MD Chapo
[2017-03-21] MEDS: D5 1/2 NS w/ 20 mEq/L KCl 1,000 ML IV SCH ×4 (04:41→17:36)
[2017-03-21] MEDS ORDERED: Magnesium Sulfate/Water 2 GM in Premix Bag 1 BAG IV ONE (08:15)
[2017-03-21] MEDS ORDERED: Potassium Phosphates 3 mMole/ML 5 ML SDV IV ONE (09:57)
[2017-03-21] MEDS: SYMBICORT 160-4.5MCG INH SCH ×2 (10:03→21:25)
[2017-03-21] MEDS ORDERED: Potassium Phosphates 30 MMOLE in Sodium Chloride 0.9% 250 ML IV ONE (10:15)
[2017-03-21] MEDS: HYDROmorphone 2 MG/ML Syringe IVPUSH PRN ×3 (11:19→20:53)
[2017-03-21] MEDS: Ondansetron 4 MG/2 ML SDV IVPUSH PRN ×2 (11:25→16:34)
[2017-03-21 12:55] LABS: CHLORIDE,CL 117 mmol/L (98-110); SODIUM,NA 141 mmol/L (136-146)
[2017-03-21] MEDS ORDERED: diphenhydrAMINE 25 MG Cap PO PRN (13:21)
[2017-03-21 15:38] LABS: CHLORIDE,CL 118 mmol/L (98-110); SODIUM,NA 141 mmol/L (136-146)
[2017-03-21 19:00] LABS: CHLORIDE,CL 118 mmol/L (98-110); SODIUM,NA 139 mmol/L (136-146)
[2017-03-21] MEDS: Insulin Detemir 100 Units/ML 3 ML Pen SUBCUT SCH (20:51)
[2017-03-21] MEDS: Insulin Aspart 100 Units/ML 3 ML Pen SUBCUT SCH ×3 (20:55→21:09)
[2017-03-22] MEDS: HYDROmorphone 2 MG/ML Syringe IVPUSH PRN ×3 (01:14→09:50)
[2017-03-22] MEDS ORDERED: Insulin Regular, Human 100 Units/ML 10 ML Vial ONE (01:27)
[2017-03-22] MEDS: Ondansetron 4 MG/2 ML SDV IVPUSH PRN (04:15)
[2017-03-22 04:29] LABS: CHLORIDE,CL 113 mmol/L (98-110); SODIUM,NA 140 mmol/L (136-146)
[2017-03-22] MEDS: Insulin Aspart 100 Units/ML 3 ML Pen SUBCUT SCH ×4 (06:58→11:21)
[2017-03-22] MEDS: Insulin Detemir 100 Units/ML 3 ML Pen SUBCUT SCH (08:25)
[2017-03-22] MEDS: SYMBICORT 160-4.5MCG INH SCH (09:25)
[2017-03-22] MEDS ORDERED: Phosphorus #1 250 MG Tab PO ONE (12:00)
[2017-03-22] MEDS ORDERED: Potassium Chloride 20 MEQ Tab.ER PO ONE (15:04)
[2017-03-22 15:15] VITALS: BP 85/52
--- NOTE | 2017-03-22 15:17 | PCM.DCSUM1 ---
Discharge Summary - Discharge Data Discharge Date: 03/22/17 Discharge Disposition: Home, Self-Care 01 Condition: Good - Patient Summary/Data Hospital Course: ADmission diagnosis Diabetic ketoacidosis Dehydration Acute kidney injury Hospital Course: Patient is a 26 yo female with pmh of diabetes with multiple admissions for DKA and chronic abdominal pain. She presented with nausea and vomiting. She was found to have a blood sugar of 830, Bicarge of less than 5, ABG with pH of 7.1 and creatinine of 1.8. She was treated with IV fluids and insulin drip. Her anion gap closed and she was switched back to her subcutaneous insulin of Levemir and premeal insulin. She is being discharge home to today to follow up with Dr. Blakc. - Patient Instructions Diet: Diabetic Diet Activity: As Tolerated - Discharge Plan Home Medications: Home Meds Insulin Detemir [Levemir] 15 unit SUBCUT BID 03/24/16 [History] LORazepam [Ativan] 1 mg PO TID PRN 03/24/16 [History] Ondansetron [Ondansetron ODT] 8 mg PO QID PRN 04/19/16 [History] Insulin Aspart [Novolog Flexpen] 16 - 20 unit SUBCUT QIDACANDBED 05/15/16 [ History] Promethazine HCl 25 mg PO Q6H PRN 08/24/16 [History] Morphine 30 mg PO 5XDAY 11/30/16 [History] Albuterol Sulfate [Proair Hfa] 1 puff IH Q4H PRN 02/16/17 [History] Budesonide/Formoterol Fumarate [Symbicort 160-4.5 Mcg Inhaler] 1 puff INH BID [History] Nystatin [Nystatin Crm] 30 gm TOP TID 03/21/17 [History] Omeprazole 20 mg PO 03/21/17 [History] Forms: ED Department Discharge Referrals: PCP,None [Primary Care Provider] - - Patient Data Vitals - Most Recent: Last Vital Signs Temp 37.0 C 03/22/17 13:00 Pulse 128 H 03/21/17 01:40 Resp 17 03/22/17 13:00 BP 93/56 L 03/22/17 13:00 Pulse Ox 96 03/22/17 13:00 Weight - Most Recent: 50.6 kg I&O - Last 24 hours: Intake & Output 03/22/17 03/22/17 03/22/17 06:59 14:59 22:59 Output Total 1000 Balance -1000 Lab Results - Last 24 hrs: Laboratory Results - last 24 hr 03/21/17 03/21/17 03/21/17 Range/Units 14:59 16:01 17:45 WBC (4.0-11.0) K/uL RBC (4.30-5.90) M/uL Hgb (12.0-16.0) g/dL Hct (36.0-46.0) % MCV (80.0-98.0) fL MCH (27.0-32.0) pg MCHC (31.0-37.0) g/dL RDW Std Deviation (28.0-62.0) fl RDW Coeff of Zak (11.0-15.0) % Plt Count (150-400) K/uL MPV (7.40-12.00) fL Neut % (Auto) (48.0-80.0) % Lymph % (Auto) (16.0-40.0) % [place] % (Auto) (0.0-15.0) % Eos % (Auto) (0.0-7.0) % Baso % (Auto) (0.0-1.5) % Neut # (Auto) (1.4-5.7) K/uL Lymph # (Auto) (0.6-2.4) K/uL [place] # (Auto) (0.0-0.8) K/uL Eos # (Auto) (0.0-0.7) K/uL Baso # (Auto) (0.0-0.1) K/uL Nucleated RBC % /100WBC Nucleated RBCs # K/uL Sodium 141 (136-146) mmol/L Potassium 4.0 (3.5-5.1) mmol/L Chloride 118 H (98-110) mmol/L Carbon Dioxide 10 L (21-31) mmol/L Anion Gap BUN 9 (6.0-23.0) mg/dL Creatinine 0.9 (0.6-1.5) mg/dL Est Cr Clr Drug Dosing 67.44 mL/min Estimated GFR (MDRD) > 60.0 ml/min Glucose 154 H (60-110) mg/dL POC Glucose 141 H 125 H (60-110) mg/dL Calcium 8.1 L (8.8-10.8) mg/dL Phosphorus (2.4-4.7) mg/dL Magnesium 1.7 (1.5-2.3) mEq/L Total Bilirubin (0.1-1.5) mg/dL AST (5-40) IU/L ALT (8-54) IU/L Alkaline Phosphatase (40-150) Total Protein (6.0-8.0) g/dL Albumin (3.5-5.0) g/dL Globulin (2.0-3.5) g/dL Albumin/Globulin Ratio (1.3-2.8) 03/21/17 03/21/17 03/21/17 Range/Units 18:24 18:30 19:35 WBC (4.0-11.0) K/uL RBC (4.30-5.90) M/uL Hgb (12.0-16.0) g/dL Hct (36.0-46.0) % MCV (80.0-98.0) fL MCH (27.0-32.0) pg MCHC (31.0-37.0) g/dL RDW Std Deviation (28.0-62.0) fl RDW Coeff of Zak (11.0-15.0) % Plt Count (150-400) K/uL MPV (7.40-12.00) fL Neut % (Auto) (48.0-80.0) % Lymph % (Auto) (16.0-40.0) % [place] % (Auto) (0.0-15.0) % Eos % (Auto) (0.0-7.0) % Baso % (Auto) (0.0-1.5) % Neut # (Auto) (1.4-5.7) K/uL Lymph # (Auto) (0.6-2.4) K/uL [place]ler # (Auto) (0.0-0.8) K/uL Eos # (Auto) (0.0-0.7) K/uL Baso # (Auto) (0.0-0.1) K/uL Nucleated RBC % /100WBC Nucleated RBCs # K/uL Sodium 139 (136-146) mmol/L Potassium 4.6 (3.5-5.1) mmol/L Chloride 118 H (98-110) mmol/L Carbon Dioxide 10 L (21-31) mmol/L Anion Gap BUN 7 (6.0-23.0) mg/dL Creatinine 0.8 (0.6-1.5) mg/dL Est Cr Clr Drug Dosing 75.87 mL/min Estimated GFR (MDRD) > 60.0 ml/min Glucose 143 H (60-110) mg/dL POC Glucose 139 H 156 H (60-110) mg/dL Calcium 7.8 L (8.8-10.8) mg/dL Phosphorus (2.4-4.7) mg/dL Magnesium 1.7 (1.5-2.3) mEq/L Total Bilirubin (0.1-1.5) mg/dL AST (5-40) IU/L ALT (8-54) IU/L Alkaline Phosphatase (40-150) Total Protein (6.0-8.0) g/dL Albumin (3.5-5.0) g/dL Globulin (2.0-3.5) g/dL Albumin/Globulin Ratio (1.3-2.8) 03/21/17 03/21/17 03/21/17 Range/Units 20:41 22:02 23:17 WBC (4.0-11.0) K/uL RBC (4.30-5.90) M/uL Hgb (12.0-16.0) g/dL Hct (36.0-46.0) % MCV (80.0-98.0) fL MCH (27.0-32.0) pg MCHC (31.0-37.0) g/dL RDW Std Deviation (28.0-62.0) fl RDW Coeff of Zak (11.0-15.0) % Plt Count (150-400) K/uL MPV (7.40-12.00) fL Neut % (Auto) (48.0-80.0) % Lymph % (Auto) (16.0-40.0) % [place] % (Auto) (0.0-15.0) % Eos % (Auto) (0.0-7.0) % Baso % (Auto) (0.0-1.5) % Neut # (Auto) (1.4-5.7) K/uL Lymph # (Auto) (0.6-2.4) K/uL [place]ler # (Auto) (0.0-0.8) K/uL Eos # (Auto) (0.0-0.7) K/uL Baso # (Auto) (0.0-0.1) K/uL Nucleated RBC % /100WBC Nucleated RBCs # K/uL Sodium (136-146) mmol/L Potassium (3.5-5.1) mmol/L Chloride (98-110) mmol/L Carbon Dioxide (21-31) mmol/L Anion Gap BUN (6.0-23.0) mg/dL Creatinine (0.6-1.5) mg/dL Est Cr Clr Drug Dosing mL/min Estimated GFR (MDRD) ml/min Glucose (60-110) mg/dL POC Glucose 168 H 117 H 96 (60-110) mg/dL Calcium (8.8-10.8) mg/dL Phosphorus (2.4-4.7) mg/dL Magnesium (1.5-2.3) mEq/L Total Bilirubin (0.1-1.5) mg/dL AST (5-40) IU/L ALT (8-54) IU/L Alkaline Phosphatase (40-150) Total Protein (6.0-8.0) g/dL Albumin (3.5-5.0) g/dL Globulin (2.0-3.5) g/dL Albumin/Globulin Ratio (1.3-2.8) 03/22/17 03/22/17 03/22/17 Range/Units 04:03 04:03 06:46 WBC 5.59 (4.0-11.0) K/uL RBC 3.99 L (4.30-5.90) M/uL Hgb 11.8 L (12.0-16.0) g/dL Hct 35.8 L (36.0-46.0) % MCV 89.7 (80.0-98.0) fL MCH 29.6 (27.0-32.0) pg MCHC 33.0 (31.0-37.0) g/dL RDW Std Deviation 47.8 (28.0-62.0) fl RDW Coeff of Zak 15 (11.0-15.0) % Plt Count 197 (150-400) K/uL MPV 9.70 (7.40-12.00) fL Neut % (Auto) 46.0 L (48.0-80.0) % Lymph % (Auto) 48.5 H (16.0-40.0) % [place] % (Auto) 4.1 (0.0-15.0) % Eos % (Auto) 0.9 (0.0-7.0) % Baso % (Auto) 0.5 (0.0-1.5) % Neut # (Auto) 2.6 (1.4-5.7) K/uL Lymph # (Auto) 2.7 H (0.6-2.4) K/uL Flagler # (Auto) 0.2 (0.0-0.8) K/uL Eos # (Auto) 0.1 (0.0-0.7) K/uL Baso # (Auto) 0.0 (0.0-0.1) K/uL Nucleated RBC % 0.0 /100WBC Nucleated RBCs # 0 K/uL Sodium 140 (136-146) mmol/L Potassium 4.1 (3.5-5.1) mmol/L Chloride 113 H (98-110) mmol/L Carbon Dioxide 16 L (21-31) mmol/L Anion Gap BUN 5 L (6.0-23.0) mg/dL Creatinine 0.7 (0.6-1.5) mg/dL Est Cr Clr Drug Dosing 86.71 mL/min Estimated GFR (MDRD) > 60.0 ml/min Glucose 82 (60-110) mg/dL POC Glucose 50 L (60-110) mg/dL Calcium 8.9 (8.8-10.8) mg/dL Phosphorus 1.9 L (2.4-4.7) mg/dL Magnesium (1.5-2.3) mEq/L Total Bilirubin 0.3 (0.1-1.5) mg/dL AST 100 H (5-40) IU/L ALT 68 H (8-54) IU/L Alkaline Phosphatase 165 H (40-150) Total Protein 6.3 (6.0-8.0) g/dL Albumin 3.6 (3.5-5.0) g/dL Globulin 2.7 (2.0-3.5) g/dL Albumin/Globulin Ratio 1.3 (1.3-2.8) 03/22/17 03/22/17 03/22/17 Range/Units 07:53 11:07 14:00 WBC (4.0-11.0) K/uL RBC (4.30-5.90) M/uL Hgb (12.0-16.0) g/dL Hct (36.0-46.0) % MCV (80.0-98.0) fL MCH (27.0-32.0) pg MCHC (31.0-37.0) g/dL RDW Std Deviation (28.0-62.0) fl RDW Coeff of Zak (11.0-15.0) % Plt Count (150-400) K/uL MPV (7.40-12.00) fL Neut % (Auto) (48.0-80.0) % Lymph % (Auto) (16.0-40.0) % [place] % (Auto) (0.0-15.0) % Eos % (Auto) (0.0-7.0) % Baso % (Auto) (0.0-1.5) % Neut # (Auto) (1.4-5.7) K/uL Lymph # (Auto) (0.6-2.4) K/uL [place] # (Auto) (0.0-0.8) K/uL Eos # (Auto) (0.0-0.7) K/uL Baso # (Auto) (0.0-0.1) K/uL Nucleated RBC % /100WBC Nucleated RBCs # K/uL Sodium 141 (136-146) mmol/L Potassium 3.3 L (3.5-5.1) mmol/L Chloride 111 H (98-110) mmol/L Carbon Dioxide 22 (21-31) mmol/L Anion Gap 11.3 BUN (6.0-23.0) mg/dL Creatinine (0.6-1.5) mg/dL Est Cr Clr Drug Dosing mL/min Estimated GFR (MDRD) ml/min Glucose (60-110) mg/dL POC Glucose 133 H 173 H (60-110) mg/dL Calcium (8.8-10.8) mg/dL Phosphorus (2.4-4.7) mg/dL Magnesium (1.5-2.3) mEq/L Total Bilirubin (0.1-1.5) mg/dL AST (5-40) IU/L ALT (8-54) IU/L Alkaline Phosphatase (40-150) Total Protein (6.0-8.0) g/dL Albumin (3.5-5.0) g/dL Globulin (2.0-3.5) g/dL Albumin/Globulin Ratio (1.3-2.8) Med Orders - Current: Current Medications Diphenhydramine HCl (Benadryl) 25 mg PO Q6H PRN PRN Reason: Itching Last Admin: 03/21/17 20:54 Dose: 25 mg Hydromorphone HCl (Dilaudid) 0.5 - 1 mg IVPUSH Q2H PRN PRN Reason: Pain (severe 7-10) Last Admin: 03/22/17 09:50 Dose: 0.5 mg Insulin Aspart (Novolog) 15 unit SUBCUT TIDAC [facility] Last Admin: 03/22/17 11:20 Dose: 15 units Insulin Aspart (Novolog) 0 unit SUBCUT ACBED [facility] PRN Reason: Protocol Last Admin: 03/22/17 11:21 Dose: 2 units Insulin Detemir (Levemir) 15 unit SUBCUT BIDAC [facility] Last Admin: 03/22/17 08:25 Dose: 15 units Levalbuterol HCl (Xopenex) 1.25 mg NEB Q4H PRN PRN Reason: Wheezing Ondansetron HCl (Zofran) 4 mg IVPUSH Q4H PRN PRN Reason: Nausea Last Admin: 03/22/17 04:15 Dose: 4 mg Symbicort 160-4.5mcg 1 each INH BID [facility] Last Admin: 03/22/17 09:25 Dose: 1 each Temazepam (Restoril) 15 mg PO BEDTIME PRN PRN Reason: Sleep Discontinued Medications Hydromorphone HCl (Dilaudid) 2 mg IVPUSH Q2H PRN PRN Reason: Pain (severe 7-10) Sodium Chloride (Normal Saline) 1,000 mls @ 999 mls/hr IV .Bolus ONE Stop: 03/21/17 00:23 Last Admin: 03/20/17 23:40 Dose: 999 mls/hr Sodium Chloride (Normal Saline) 1,000 mls @ 999 mls/hr IV .Bolus ONE Stop: 03/21/17 02:05 Last Admin: 03/21/17 01:14 Dose: 999 mls/hr Insulin Human Regular 100 unit (/ Sodium Chloride) 100 mls @ 5 mls/hr IV TITRATE PIPPA; 5 UNIT/HR PRN Reason: Protocol Last Admin: 03/21/17 01:35 Dose: 5 unit/hr, 5 mls/hr Insulin Human Regular 100 unit (/ Sodium Chloride) 100 mls @ 6 mls/hr IV TITRATE PIPPA; 6 UNIT/HR PRN Reason: Protocol Potassium Chloride/Sodium Chloride (Normal Saline With 20 Meq Kcl) 1,000 mls @ 250 mls/hr IV ASDIRECTED PIPPA Last Admin: 03/21/17 03:30 Dose: 250 mls/hr Insulin Human Regular 100 unit (/ Sodium Chloride) 100 mls @ 5 mls/hr IV TITRATE PIPPA; 5 UNIT/HR PRN Reason: Protocol Last Titration: 03/21/17 04:11 Dose: 3.8 unit/hr, 3.8 mls/hr Potassium Chloride/Dextrose/Sod Cl (D5 1/2 Ns W/ 20 Meq/L Kcl) 1,000 mls @ 250 mls/hr IV ASDIRECTED PIPPA Last Admin: 03/21/17 17:36 Dose: 250 mls/hr Insulin Human Regular 100 unit (/ Sodium Chloride) 100 mls @ 2 mls/hr IV TITRATE PIPPA; 2 UNIT/HR PRN Reason: Protocol Stop: 03/21/17 23:00 Last Titration: 03/21/17 23:10 Dose: 0 unit/hr, 0 mls/hr Magnesium Sulfate 2 gm/ Premix 50 mls @ 50 mls/hr IV ONETIME ONE Stop: 03/21/17 09:14 Last Admin: 03/21/17 08:46 Dose: 50 mls/hr Potassium Phosphate 30 mmole/ (Sodium Chloride) 260 mls @ 43.333 mls/hr IV ONETIME ONE Stop: 03/21/17 16:14 Last Admin: 03/21/17 10:22 Dose: 43.333 mls/hr Insulin Human Regular (Novolin R) 10 unit IVPUSH ONETIME ONE PRN Reason: Protocol Stop: 03/20/17 23:55 Last Admin: 03/21/17 00:08 Dose: 10 units Insulin Human Regular (Novolin R) 10 unit SUBCUT ONETIME STA PRN Reason: Protocol Stop: 03/20/17 23:56 Last Admin: 03/21/17 00:10 Dose: 10 units Insulin Human Regular (Novolin R) 1,000 unit .ROUTE .STK-MED ONE Stop: 03/22/17 01:28 Ondansetron HCl (Zofran) 4 mg IVPUSH ONETIME ONE Stop: 03/20/17 23:24 Last Admin: 03/20/17 23:47 Dose: 4 mg Potassium Chloride (Klor-Con M20) 40 meq PO ONETIME ONE Stop: 03/22/17 15:05 Last Admin: 03/22/17 15:11 Dose: 40 meq Potassium Phosphate (Potassium Phosphates) 30 mmole IV ONETIME ONE Stop: 03/21/17 09:58 Sodium Phosphate (Neutra-Phos) 250 mg PO ONETIME ONE Stop: 03/22/17 12:01 Last Admin: 03/22/17 11:11 Dose: 250 mg *Q Meaningful Use (DIS) - VTE *Q VTE Criteria *Q: - Stroke *Q Stroke Criteria *Q: - AMI *Q AMI Criteria *Q:
== END 2017-03-22 15:37 | disposition home or self-care (01) | DRG 638 ==
LOC: MW.ED 23:12 → MW.ICU 03-21 01:58
PROVIDERS: ADMIT Family Medicine; ATTEND Family Medicine
DX: E10.10 Type 1 diabetes mellitus with ketoacidosis without coma (principal); G40.89 Other seizures; E86.0 Dehydration; R10.9 Unspecified abdominal pain; G89.29 Other chronic pain; R74.8 Abnormal levels of other serum enzymes; F41.8 Other specified anxiety disorders; F17.200 Nicotine dependence, unspecified, uncomplicated; Z79.4 Long term (current) use of insulin; Z86.19 Personal history of other infectious and parasitic diseases; Z91.14 Patient's other noncompliance with medication regimen; Z88.8 Allergy status to other drugs, medicaments and biological substances; Z79.899 Other long term (current) drug therapy
CPT/HCPCS: 36415; 36600; 80048; 80051; 80053; 81001; 82009; 82803; 82962; 83735; 84100; 85025; 94640; 96361; 96365; 96372; 96375; 96376; 99283; 99285-25; A9270-GY; J1170; J1815-GY ×2; J2405; J3475; J3480; J7030; J7040; J7050

== ENCOUNTER 2017-03-30 12:13 | Emergency (ER) | payer MEDICAID ==
[2017-03-30] MEDS ORDERED: Sodium Chloride 0.9% 1,000 ML IV ONE ×2 (12:32)
--- NOTE | 2017-03-30 13:45 | PCM.SN ---
- Free Text/Narrative Note: Called to ER for IV start. IV start 24g angiocath left forearm with ultrasound with good blood return but IV catheter wouldn't flush. IV start right wrist with 24 g angiocath. Good blood return and flushes easily. No edema and patient states that it does not hurt. Taped securely.
[2017-03-30 14:47] VITALS: BP 127/94
--- NOTE | 2017-03-30 15:06 | EDM.PDOC ---
ED HPI GENERAL MEDICAL PROBLEM - General Chief Complaint: General Stated Complaint: UNKNOWN Time Seen by Provider: 03/30/17 12:24 Source of Information: Reports: Patient, Other (Physician) History Limitations: Reports: No Limitations - History of Present Illness INITIAL COMMENTS - FREE TEXT/NARRATIVE: HISTORY AND PHYSICAL: History of present illness: [26-year-old female extremely well known to our emergency medicine service for very frequent visits with extreme type 1 diabetes noncompliance and many episodes of severe DKA in the past. Patient is also an IV drug abuser. Per patient's primary care physician Dr. Black, Patient also has liver damage from previous Tylenol overdose in the distant past worsening liver function and progressive elevated LFTs without abdominal pain. She went to Dr. black's office today and was evaluated and again found to be in severe DKA with a bicarbonate of 12 positive serum ketones and elevated anion gap per outpatient labs. She also has elevated ammonia at 132 however she has no clinical evidence of encephalopathy she is alert and oriented and at her mental status baseline. Dr. black states he cannot make her a direct admission here because the hospitalist does not think they can provide adequate care for this patient given that we do not have GI consultation availability. Patient complains of nausea and malaise. Denies chest pain or shortness of breath. She denies recent IV drug abuse but states she does take morphine which is prescribed for her. Has not intentionally overdosed or injure herself in any way. Review of systems: As per history of present illness and below otherwise all systems reviewed and negative. Past medical history: As per history of present illness and as reviewed below otherwise noncontributory. Surgical history: As per history of present illness and as reviewed below otherwise noncontributory. Social history: No reported history of drug or alcohol abuse. Family history: As per history of present illness and as reviewed below otherwise noncontributory. Physical exam: Chronically ill and debilitated appearing 26-year-old female fatigued appearing but in no acute distress. She is alert communicative and cooperative with supple neck clear lungs regular rate and rhythm with tachycardia at 120. Nontender abdomen with normal bowel sounds no mass or megaly. Extremities are normal with a nonfocal neurologic exam however she is generally weak with no focal deficit HEENT: Atraumatic, normocephalic, pupils reactive, negative for conjunctival pallor or scleral icterus, mucous membranes dry, throat clear, neck supple, nontender, trachea midline. Lungs: Clear to auscultation, breath sounds equal bilaterally, chest nontender. Heart: S1S2, regular, negative for clicks, rubs, or JVD. Abdomen: Soft, nondistended, nontender. Negative for masses or hepatosplenomegaly. Negative for costovertebral tenderness. Pelvis: Stable nontender. Genitourinary: Deferred. Rectal: Deferred. Extremities: Atraumatic, negative for cords or calf pain. Neurovascular unremarkable. Neuro: Awake, alert, oriented. Cranial nerves II through XII unremarkable. Cerebellum unremarkable. Motor and sensory unremarkable throughout. Exam nonfocal. Diagnostics: ] Therapeutics: [IV fluids administered] Impression: [Acute diabetic ketoacidosis Severe dehydration Metabolic acidosis Medication noncompliance Tachycardia Hyperammonemia Elevated transaminases] Plan: [Signs and symptoms consistent with acute diabetic ketoacidosis and chronically noncompliant patient with a history of IV drug abuse. Patient dry appearing with stable tachycardia. Though an ammonia level was very elevated her mental status is baseline with a nonfocal neurologic exam. She has manifested no infectious prodrome. Patient with the same ill-appearing presentation as she has upon nearly every visit to our emergency department. IV access obtained and IV fluids initiated. Case discussed with Dr. Colunga emergency medicine physician at [facility] in [place]. Dr. Colunga is aware of the history and findings and he is aware of their hospital has previously provided inpatient care for her as well as GI consultation and care by Dr. Rivas. Initiation of therapy discussed with Dr. Colunga and he requests holding insulin and supplemental glucose at this time to follow patient's response to initial IV hydration. Patient stable on reevaluation prior to transfer. Critical care 35 minutes Definitive disposition and diagnosis as appropriate pending reevaluation and review of above. Generalized Pain Score (Numeric/FACES): 9 - Related Data Allergies Allergy/AdvReac Type Severity Reaction Status Date / Time acetaminophen [From Tylenol] Allergy Liver Verified 12/26/16 07:06 Problems amoxicillin Allergy Hives Verified 12/26/16 07:06 amoxicillin trihydrate Allergy Hives Verified 12/26/16 07:06 [From Amoxil] ibuprofen Allergy Liver Verified 12/26/16 07:06 Problems ketorolac tromethamine Allergy Hives Verified 12/26/16 07:06 [From Toradol] metoclopramide HCl Allergy Airway Verified 12/26/16 07:06 [From Reglan] Tightness tramadol Allergy Hives Verified 12/26/16 07:06 haldol Allergy Swelling Uncoded 12/26/16 07:06 Home Meds: Home Meds Insulin Detemir [Levemir] 15 unit SUBCUT BID 03/24/16 [History] LORazepam [Ativan] 1 mg PO TID PRN 03/24/16 [History] Ondansetron [Ondansetron ODT] 8 mg PO QID PRN 04/19/16 [History] Insulin Aspart [Novolog Flexpen] 16 - 20 unit SUBCUT QIDACANDBED 05/15/16 [ History] Promethazine HCl 25 mg PO Q6H PRN 08/24/16 [History] Morphine 30 mg PO 5XDAY 11/30/16 [History] Albuterol Sulfate [Proair Hfa] 1 puff IH Q4H PRN 02/16/17 [History] Budesonide/Formoterol Fumarate [Symbicort 160-4.5 Mcg Inhaler] 1 puff INH BID [History] Nystatin [Nystatin Crm] 30 gm TOP TID 03/21/17 [History] Omeprazole 20 mg PO 03/21/17 [History] Sucralfate 1 gm PO QID 03/30/17 [History] Past Medical History - Past Health History Medical/Surgical History: Denies Medical/Surgical History HEENT History: Reports: Allergic Rhinitis Other HEENT History: dental abcess Cardiovascular History: Reports: None Respiratory History: Reports: Asthma Gastrointestinal History: Reports: GI Bleed, Hepatitis, PUD, Other (See Below) Other Gastrointestinal History: hx of C-diff, hx of Hepatitis B Genitourinary History: Reports: UTI, Recurrent Other Genitourinary History: current UTI 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: Other (See Below) Other OB/BYN History: had miscarriage twice Musculoskeletal History: Reports: Back Pain, Chronic Neurological History: Reports: Migraines, Seizure 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 Psychiatric History: Reports: Anxiety, Depression Endocrine/Metabolic History: Reports: Diabetes, Type I Hematologic History: Reports: Anemia, Blood Transfusion(s) Immunologic History: Reports: None Oncologic (Cancer) History: Reports: None Dermatologic History: Reports: Other (See Below) Other Dermatologic History: possible infection from port removal R upper chest - Infectious Disease History Infectious Disease History: Reports: C-Difficile, Hepatitis B - Past Surgical History Head Surgeries/Procedures: Reports: None HEENT Surgical History: Reports: Tonsillectomy Cardiovascular Surgical History: Reports: None Respiratory Surgical History: Reports: None GI Surgical History: Reports: Appendectomy, Cholecystectomy, ERCP Female Surgical History: Reports: None Endocrine Surgical History: Reports: None Neurological Surgical History: Reports: None Musculoskeletal Surgical History: Reports: None Oncologic Surgical History: Reports: None Dermatological Surgical History: Reports: None - History Comment History Comment: She has had over [address] scans in the last 4 years. Social & Family History - Family History Family Medical History: Noncontributory HEENT: Reports: Impaired Vision Cardiac: Reports: Heart Failure Respiratory: Reports: Asthma GI: Reports: None : Reports: Renal Disease/Insufficiency OBGYN: Reports: Musculoskeletal: Reports: Back pain, Chronic Neurological: Reports: Seizure Psychiatric: Reports: None Endocrine/Metabolic: Reports: Diabetes, Type I Hematologic: Reports: None Immunologic: Reports: None Dermatologic: Reports: None Oncologic: Reports: Breast, Cervix - Tobacco Use Smoking Status *Q: Former Smoker Years of Tobacco use: 4 Packs/Tins Daily: 0.5 Used Tobacco, but Quit: Yes Month Tobacco Last Used: 9 months Second Hand Smoke Exposure: No - Caffeine Use Caffeine Use: Reports: None - Alcohol Use Days Per Week of Alcohol Use: 0 - Recreational Drug Use Recreational Drug Use: Yes Drug Use in Last 12 Months: No Recreational Drug Type: Reports: Other (see below) Other Recreational Drug Type: patient verbalized she took oxymorphone prior to admission Recreational Drug Use Frequency: Patient Refuses To Answer - Living Situation & Occupation Living situation: Reports: with Significant Other, with Family, Other Occupation: Unemployed ED ROS GENERAL - Review of Systems Review Of Systems: See Below (Per history of present illness) ED EXAM, GENERAL - Physical Exam Exam: See Below (Per history of present illness) Course - Vital Signs Last Recorded V/S: Last Vital Signs Temp 36.2 C 03/30/17 14:00 Pulse 116 H 03/30/17 14:00 Resp 12 03/30/17 14:00 BP 127/94 H 03/30/17 14:00 Pulse Ox 97 03/30/17 14:00 - Orders/Labs/Meds Labs: Laboratory Tests 03/30/17 03/30/17 03/30/17 Range/Units 08:49 08:49 12:34 Urine Color YELLOW Urine Appearance CLEAR Urine pH 6.0 (5.0-8.0) Ur Specific [place] 1.025 (1.001-1.035) Urine Protein 100 (NEGATIVE) mg/dL Urine Glucose (UA) NEGATIVE (NEGATIVE) mg/dL Urine Ketones TRACE H (NEGATIVE) mg/dL Urine Occult Blood TRACE-INTACT (NEGATIVE) Urine Nitrite NEGATIVE (NEGATIVE) Urine Bilirubin LARGE H (NEGATIVE) Urine Ictotest Urine Urobilinogen 0.2 (<2.0) EU/dL Ur Leukocyte Esterase NEGATIVE (NEGATIVE) Urine RBC 1-3 (0-2/HPF) Urine WBC 1-3 (0-5/HPF) Ur Epithelial Cells FEW (NONE-FEW) Urine Bacteria FEW (NEGATIVE) Urine Mucus MODERATE (NONE-MOD) Urine HCG, Qual NEGATIVE (NEGATIVE) Urine Opiates Screen POSITIVE (NEGATIVE) Ur Oxycodone Screen NEGATIVE (NEGATIVE) Urine Methadone Screen NEGATIVE (NEGATIVE) Ur Barbiturates Screen NEGATIVE (NEGATIVE) Ur Phencyclidine Scrn NEGATIVE (NEGATIVE) Ur Amphetamine Screen NEGATIVE (NEGATIVE) U Methamphetamines Scrn NEGATIVE (NEGATIVE) U Benzodiazepines Scrn NEGATIVE (NEGATIVE) U Cocaine Metab Screen NEGATIVE (NEGATIVE) U Marijuana (THC) Screen NEGATIVE (NEGATIVE) Meds: Medications Discontinued Medications Generic Name Dose Route Start Last Admin Trade Name Freq PRN Reason Stop Dose Admin Sodium Chloride 1,000 mls @ 999 mls/hr 03/30/17 12:32 03/30/17 14:00 Normal Saline IV 03/30/17 13:32 150 mls/hr STAT ONE Infusion Sodium Chloride 1,000 mls @ 999 mls/hr 03/30/17 12:32 03/30/17 14:44 Normal Saline IV 03/30/17 13:32 Not Given STAT ONE Departure - Departure Time of Disposition: 14:00 Disposition: DC/Tfer to Acute Hospital 02 Condition: Serious Clinical Impression: Dehydration, Noncompliance with medication regimen, Metabolic acidosis, Hyperammonemia, Elevated transaminase level Diabetic ketoacidosis Qualifiers: Diabetes mellitus type: type 1 Diabetes mellitus complication detail: without coma Qualified Code(s): E10.10 - Type 1 diabetes mellitus with ketoacidosis without coma - Discharge Information Referrals: Maynor Black MD [Primary Care Provider] -
== END 2017-03-30 14:16 ==
LOC: MW.ED 12:13
DX: E10.10 Type 1 diabetes mellitus with ketoacidosis without coma (principal); E86.0 Dehydration; R00.0 Tachycardia, unspecified; E72.20 Disorder of urea cycle metabolism, unspecified; R74.0 Nonspecific elevation of levels of transaminase and lactic acid dehydrogenase [LDH]; Z91.14 Patient's other noncompliance with medication regimen; Z87.891 Personal history of nicotine dependence; Z90.49 Acquired absence of other specified parts of digestive tract; Z98.890 Other specified postprocedural states; Z87.440 Personal history of urinary (tract) infections; Z88.1 Allergy status to other antibiotic agents; Z88.6 Allergy status to analgesic agent; Z88.5 Allergy status to narcotic agent; Z79.899 Other long term (current) drug therapy
CPT/HCPCS: 80305; 81001; 81025; 99285; J7040; 36410; 99284

== ENCOUNTER 2017-04-16 10:42 | Inpatient (IN) | payer MEDICAID ==
[2017-04-16] MEDS ORDERED: Sodium Chloride 0.9% 1,000 ML IV STA (11:06)
[2017-04-16] MEDS ORDERED: Insulin Regular, Human 100 Units/ML 10 ML Vial SUBCUT ONE (11:27)
--- NOTE | 2017-04-16 11:27 | EDM.PDOC ---
ED HPI GENERAL MEDICAL PROBLEM - General Chief Complaint: Neurological Problem Stated Complaint: hasn't been responsive Time Seen by Provider: 04/16/17 11:15 Source of Information: Reports: Patient History Limitations: Reports: No Limitations - History of Present Illness INITIAL COMMENTS - FREE TEXT/NARRATIVE: HISTORY AND PHYSICAL: History of present illness: Patient is a 26-year-old female who presents to the emergency room by family members with complaints of being "unresponsive due to pain". Mother reports that last evening patient was complaining of severe pain and was alert but not responsive to verbal questioning. Patient upon arrival is laying on the cot and has extremely dry oral mucosa/lips with a fruity odor to her breath, mouth breathing with grunting. She is staring up at the ceiling and not responding to verbal questioning but will purposefully withdraw extremities when trying to get an IV in. Patient has a past medical history of GI bleed, hepatitis B, PUD, frequent UTIs , chronic pain, diabetes, anxiety and depression. Patient has multiple ER visits and admissions related to her diabetes (DKA) and for pain management. Last ER visit was 21/03/2017 and last hospital admission for DKA was 03/21/2017. Review of systems: As per history of present illness and below otherwise all systems reviewed and negative. Past medical history: As per history of present illness and as reviewed below otherwise noncontributory. Surgical history: As per history of present illness and as reviewed below otherwise noncontributory. Social history: No reported history of drug or alcohol abuse. Family history: As per history of present illness and as reviewed below otherwise noncontributory. Physical exam: Gen.: Moderately ill appearing 26-year-old female. HEENT: Atraumatic, normocephalic, pupils reactive, negative for conjunctival pallor or scleral icterus, excessively dry mucous membranes/lips, fruity odor to her breath, throat clear, neck supple, nontender, trachea midline. No lymphadenopathy. Lungs: Fine expiratory wheezing to the anterior upper lobes with expiration, otherwise clear and chest nontender. Heart: S1S2, regular rate and rhythm Abdomen: Soft, nondistended, nontender. Negative for masses or hepatosplenomegaly. Negative for costovertebral tenderness. Pelvis: Stable nontender. Genitourinary: Deferred. Rectal: Deferred. Extremities: Atraumatic, moves all per self (withdraws arms/legs when trying to perform nursing cares), negative for cords or calf pain. Neurovascular unremarkable. Skin: Distal extremities are cool to touch, pale, intact, dry. Neuro: Awake, alert, oriented. Jacob Coma Scale is 9. Cranial nerves II through XII unremarkable. Cerebellum unremarkable. Motor and sensory unremarkable throughout. Exam nonfocal. 1130- Nursing staff has attempted multiple times to get an IV and at this time. Anesthesia has been called to get access. The BACK HANGER states that they had difficulty on her last admission to get IV access. Current blood pressure is 141 /86, labored respirations, afebrile. Insulin was ordered subcutaneous at this time. 1150- Anesthesia is placing a central line in for IV access. Multiple attempts due to patient being uncooperative and grabbing at her lines. Lab called with a critical value of pH 6.996. An ampule of bicarbonate was ordered at this time. Other labs are pending and fluids are infusing. 1200- access was obtained at this time per anesthesia and BACK HANGER. Upper soft restraints were ordered, as patient is trying to pull on her central line. GCS 9 , patient is not responding verbal (patient's baseline since arrival) but is moaning/groaning. Patient was incontinent of urine or Justin catheter was ordered at this time. Dr. Barahona has been involved in this case. 1230- nursing staff is one-on-one with patient. GCS remains the same. 1300- patient looks improved from when she first got here. Although she is still pale, her color has improved. She appears less restless. Dr. Black is here to evaluate patient. A new order of head CT and ammonia level were added per Dr. black's request. Hemodynamically stable. 1330- Patient appears improved since arrival, less restless. Resting without moaning out. Oral mucousa less dry. 1345- Nursing staff bringing patient up to ICU for further care by Dr. Black. Diagnostics: CBC, CMP, ABG, UA, hCGU, lactic acid, chest x-ray Therapeutics: IV fluid, zofran Impression: DKA Plan: ICU Admission Definitive disposition and diagnosis as appropriate pending reevaluation and review of above. - Related Data Allergies Allergy/AdvReac Type Severity Reaction Status Date / Time acetaminophen [From Tylenol] Allergy Liver Verified 12/26/16 07:06 Problems amoxicillin Allergy Hives Verified 12/26/16 07:06 amoxicillin trihydrate Allergy Hives Verified 12/26/16 07:06 [From Amoxil] ibuprofen Allergy Liver Verified 12/26/16 07:06 Problems ketorolac tromethamine Allergy Hives Verified 12/26/16 07:06 [From Toradol] metoclopramide HCl Allergy Airway Verified 12/26/16 07:06 [From Reglan] Tightness tramadol Allergy Hives Verified 12/26/16 07:06 haldol Allergy Swelling Uncoded 12/26/16 07:06 Home Meds: Home Meds Insulin Detemir [Levemir] 15 unit SUBCUT BID 03/24/16 [History] LORazepam [Ativan] 1 mg PO TID PRN 03/24/16 [History] Ondansetron [Ondansetron ODT] 8 mg PO QID PRN 04/19/16 [History] Insulin Aspart [Novolog Flexpen] 16 - 20 unit SUBCUT QIDACANDBED 05/15/16 [ History] Promethazine HCl 25 mg PO Q6H PRN 08/24/16 [History] Morphine 30 mg PO 5XDAY 11/30/16 [History] Albuterol Sulfate [Proair Hfa] 1 puff IH Q4H PRN 02/16/17 [History] Budesonide/Formoterol Fumarate [Symbicort 160-4.5 Mcg Inhaler] 1 puff INH BID [History] Nystatin [Nystatin Crm] 30 gm TOP TID 03/21/17 [History] Omeprazole 20 mg PO 03/21/17 [History] Sucralfate 1 gm PO QID 03/30/17 [History] Past Medical History - Past Health History Medical/Surgical History: Denies Medical/Surgical History HEENT History: Reports: Allergic Rhinitis Other HEENT History: dental abcess Cardiovascular History: Reports: None Respiratory History: Reports: Asthma Gastrointestinal History: Reports: GI Bleed, Hepatitis, PUD, Other (See Below) Other Gastrointestinal History: hx of C-diff, hx of Hepatitis B Genitourinary History: Reports: UTI, Recurrent Other Genitourinary History: current UTI 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 WORKER History: Reports: Other (See Below) Other OB/BYN History: had miscarriage twice Musculoskeletal History: Reports: Back Pain, Chronic Neurological History: Reports: Migraines, Seizure 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 Psychiatric History: Reports: Anxiety, Depression Endocrine/Metabolic History: Reports: Diabetes, Type I Hematologic History: Reports: Anemia, Blood Transfusion(s) Immunologic History: Reports: None Oncologic (Cancer) History: Reports: None Dermatologic History: Reports: Other (See Below) Other Dermatologic History: possible infection from port removal R upper chest - Infectious Disease History Infectious Disease History: Reports: C-Difficile, Hepatitis B - Past Surgical History Head Surgeries/Procedures: Reports: None HEENT Surgical History: Reports: Tonsillectomy Cardiovascular Surgical History: Reports: None Respiratory Surgical History: Reports: None GI Surgical History: Reports: Appendectomy, Cholecystectomy, ERCP Female Surgical History: Reports: None Endocrine Surgical History: Reports: None Neurological Surgical History: Reports: None Musculoskeletal Surgical History: Reports: None Oncologic Surgical History: Reports: None Dermatological Surgical History: Reports: None - History Comment History Comment: She has had over [address] scans in the last 4 years. Social & Family History - Family History Family Medical History: Noncontributory HEENT: Reports: Impaired Vision Cardiac: Reports: Heart Failure Respiratory: Reports: Asthma GI: Reports: None : Reports: Renal Disease/Insufficiency OBGYN: Reports: Musculoskeletal: Reports: Back pain, Chronic Neurological: Reports: Seizure Psychiatric: Reports: None Endocrine/Metabolic: Reports: Diabetes, Type I Hematologic: Reports: None Immunologic: Reports: None Dermatologic: Reports: None Oncologic: Reports: Breast, Cervix - Tobacco Use Smoking Status *Q: Unknown Ever Smoked Years of Tobacco use: 4 Packs/Tins Daily: 0.5 Used Tobacco, but Quit: Yes Month Tobacco Last Used: 9 months Second Hand Smoke Exposure: No - Caffeine Use Caffeine Use: Reports: None - Alcohol Use Days Per Week of Alcohol Use: 0 - Recreational Drug Use Recreational Drug Use: Yes Drug Use in Last 12 Months: No Recreational Drug Type: Reports: Other (see below) Other Recreational Drug Type: patient verbalized she took oxymorphone prior to admission Recreational Drug Use Frequency: Patient Refuses To Answer - Living Situation & Occupation Living situation: Reports: with Significant Other, with Family, Other Occupation: Unemployed ED ROS GENERAL - Review of Systems Review Of Systems: ROS reveals no pertinent complaints other than HPI. ED EXAM, GENERAL - Physical Exam Exam: See Below (See dictation) Course - Vital Signs Last Recorded V/S: Last Vital Signs Temp 36.1 C 04/16/17 11:00 Pulse 131 H 04/16/17 12:52 Resp 32 H 04/16/17 12:52 BP 101/64 04/16/17 13:02 Pulse Ox 100 04/16/17 12:52 - Orders/Labs/Meds Orders: Active Orders 24 hr Category Date Time Status Admission Status [Patient Status] [ADT] Stat ADT 04/16/17 12:54 Active Justin Catheter Insertion [Insert Urinary Catheter] [OM. Care 04/16/17 12:30 Ordered PC] Q24H Urinary Catheter Assessment [RC] ASDIRECTED Care 04/16/17 12:22 Active Head wo Cont [CT] Stat Exams 04/16/17 13:27 Ordered AMMONIA VENOUS [CHEM] Stat Lab 04/16/17 13:27 Ordered CULTURE BLOOD [BC] Stat Lab 04/16/17 12:15 Received CULTURE BLOOD [BC] Stat Lab 04/16/17 13:30 Ordered Insulin Regular, Human [NovoLIN R] 100 unit Med 04/16/17 12:15 Active Sodium Chloride 0.9% [Normal Saline] 99 ml IV TITRATE Sodium Chloride 0.9% [Normal Saline] 1,000 ml Med 04/16/17 13:31 Active IV .BOLUS Sodium Chloride 0.9% with KCl [Normal Saline with 40 Med 04/16/17 13:45 Active mEq KCl] 1,000 ml IV ASDIRECTED Blood Culture x2 Reflex Set [OM.PC] Stat Oth 04/16/17 13:30 Ordered Restraint Initiate Non-VIOL/Non-SD [OM.PC] Stat Oth 04/16/17 11:59 Ordered Restraint Monitoring Non-VIOL/Non-SD [OM.PC] Daily Oth 04/16/17 12:00 Ordered Restraint Monitoring Non-VIOL/Non-SD [OM.PC] Daily Oth 04/17/17 12:00 Ordered Medication Orders Insulin Human Regular 100 unit (/ Sodium Chloride) 100 mls @ 0 mls/hr IV TITRATE PIPPA; 0.1 UNIT/KG/HR PRN Reason: Protocol Last Titration: 04/16/17 12:55 Dose: 0.22 unit/kg/hr, 10 mls/hr Admin: 04/16/17 12:32 Dose: 0.13 unit/kg/hr, 6 mls/hr Sodium Chloride (Normal Saline) 1,000 mls @ 999 mls/hr IV .BOLUS ONE Stop: 04/16/17 14:31 Potassium Chloride/Sodium Chloride (Normal Saline With 40 Meq Kcl) 1,000 mls @ 150 mls/hr IV ASDIRECTED [facility] Labs: Laboratory Tests 04/16/17 04/16/17 04/16/17 Range/Units 11:23 11:25 11:25 WBC (4.0-11.0) K/uL RBC (4.30-5.90) M/uL Hgb (12.0-16.0) g/dL Hct (36.0-46.0) % MCV (80.0-98.0) fL MCH (27.0-32.0) pg MCHC (31.0-37.0) g/dL RDW Std Deviation (28.0-62.0) fl RDW Coeff of Zak (11.0-15.0) % Plt Count (150-400) K/uL MPV (7.40-12.00) fL Add Manual Diff Neutrophils % (Manual) (48.0-80.0) % Band Neutrophils % % Lymphocytes % (Manual) (16.0-40.0) % Monocytes % (Manual) (0.0-15.0) % Basophils % (Manual) (0.0-1.5) % Nucleated RBC % /100WBC Absolute Seg Neuts (1.4-5.7) Band Neutrophils # Lymphocytes # (Manual) (0.6-2.4) Monocytes # (Manual) (0.0-0.8) Basophils # (Manual) (0.0-0.1) Nucleated RBCs # K/uL ABG pH 6.996 L* (7.35-7.45) ABG pCO2 12 L (35-45) mmHG ABG pO2 90 (75-100) mmHG ABG HCO3 3 L (22-26) mEq/L ABG Total CO2 3.0 ABG Base Excess -26.6 L (-2.0-2.0) Lactate (0.20-2.00) mmol/L Sodium (136-146) mmol/L Potassium (3.5-5.1) mmol/L Chloride (98-110) mmol/L Carbon Dioxide (21-31) mmol/L BUN (6.0-23.0) mg/dL Creatinine (0.6-1.5) mg/dL Est Cr Clr Drug Dosing Estimated GFR (MDRD) ml/min Glucose (60-110) mg/dL Calcium (8.8-10.8) mg/dL Total Bilirubin (0.1-1.5) mg/dL AST (5-40) IU/L ALT (8-54) IU/L Alkaline Phosphatase (40-150) Total Protein (6.0-8.0) g/dL Albumin (3.5-5.0) g/dL Globulin (2.0-3.5) g/dL Albumin/Globulin Ratio (1.3-2.8) Urine Color Urine Appearance Urine pH (5.0-8.0) Ur Specific [place] (1.001-1.035) Urine Protein (NEGATIVE) mg/dL Urine Glucose (UA) (NEGATIVE) mg/dL Urine Ketones (NEGATIVE) mg/dL Urine Occult Blood (NEGATIVE) Urine Nitrite (NEGATIVE) Urine Bilirubin (NEGATIVE) Urine Urobilinogen (<2.0) EU/dL Ur Leukocyte Esterase (NEGATIVE) Urine RBC (0-2/HPF) Urine WBC (0-5/HPF) Ur Epithelial Cells (NONE-FEW) Amorphous Sediment (NEGATIVE) Urine Bacteria (NEGATIVE) Urine HCG, Qual NEGATIVE (NEGATIVE) Urine Opiates Screen POSITIVE (NEGATIVE) Ur Oxycodone Screen NEGATIVE (NEGATIVE) Urine Methadone Screen NEGATIVE (NEGATIVE) Ur Barbiturates Screen NEGATIVE (NEGATIVE) Ur Phencyclidine Scrn NEGATIVE (NEGATIVE) Ur Amphetamine Screen NEGATIVE (NEGATIVE) U Methamphetamines Scrn NEGATIVE (NEGATIVE) U Benzodiazepines Scrn NEGATIVE (NEGATIVE) U Cocaine Metab Screen NEGATIVE (NEGATIVE) U Marijuana (THC) Screen NEGATIVE (NEGATIVE) 04/16/17 04/16/17 04/16/17 Range/Units 11:25 12:15 12:15 WBC 25.71 H (4.0-11.0) K/uL RBC 4.43 (4.30-5.90) M/uL Hgb 13.6 (12.0-16.0) g/dL Hct 44.0 (36.0-46.0) % MCV 99.3 H (80.0-98.0) fL MCH 30.7 (27.0-32.0) pg MCHC 30.9 L (31.0-37.0) g/dL RDW Std Deviation 53.8 (28.0-62.0) fl RDW Coeff of Zak 15 (11.0-15.0) % Plt Count 479 H (150-400) K/uL MPV 11.20 (7.40-12.00) fL Add Manual Diff YES Neutrophils % (Manual) 85 H (48.0-80.0) % Band Neutrophils % 3 % Lymphocytes % (Manual) 8 L (16.0-40.0) % Monocytes % (Manual) 3 (0.0-15.0) % Basophils % (Manual) 1 (0.0-1.5) % Nucleated RBC % 0.0 /100WBC Absolute Seg Neuts 21.9 H (1.4-5.7) Band Neutrophils # 0.8 Lymphocytes # (Manual) 2.1 (0.6-2.4) Monocytes # (Manual) 0.8 (0.0-0.8) Basophils # (Manual) 0.3 H (0.0-0.1) Nucleated RBCs # 0 K/uL ABG pH (7.35-7.45) ABG pCO2 (35-45) mmHG ABG pO2 (75-100) mmHG ABG HCO3 (22-26) mEq/L ABG Total CO2 ABG Base Excess (-2.0-2.0) Lactate (0.20-2.00) mmol/L Sodium 146 (136-146) mmol/L Potassium 4.0 (3.5-5.1) mmol/L Chloride 113 H (98-110) mmol/L Carbon Dioxide < 5 L (21-31) mmol/L BUN 32 H (6.0-23.0) mg/dL Creatinine 1.9 H (0.6-1.5) mg/dL Est Cr Clr Drug Dosing TNP Estimated GFR (MDRD) 31.7 ml/min Glucose 888 H* (60-110) mg/dL Calcium 10.7 (8.8-10.8) mg/dL Total Bilirubin 0.4 (0.1-1.5) mg/dL AST 34 (5-40) IU/L ALT 82 H (8-54) IU/L Alkaline Phosphatase 293 H (40-150) Total Protein 9.2 H (6.0-8.0) g/dL Albumin 4.8 (3.5-5.0) g/dL Globulin 4.4 H (2.0-3.5) g/dL Albumin/Globulin Ratio 1.1 L (1.3-2.8) Urine Color YELLOW Urine Appearance CLEAR Urine pH 6.0 (5.0-8.0) Ur Specific [place] 1.015 (1.001-1.035) Urine Protein 30 (NEGATIVE) mg/dL Urine Glucose (UA) >=1000 (NEGATIVE) mg/dL Urine Ketones >=80 (NEGATIVE) mg/dL Urine Occult Blood SMALL H (NEGATIVE) Urine Nitrite NEGATIVE (NEGATIVE) Urine Bilirubin NEGATIVE (NEGATIVE) Urine Urobilinogen 0.2 (<2.0) EU/dL Ur Leukocyte Esterase NEGATIVE (NEGATIVE) Urine RBC 0-1 (0-2/HPF) Urine WBC 0-1 (0-5/HPF) Ur Epithelial Cells OCCASIONAL (NONE-FEW) Amorphous Sediment LIGHT (NEGATIVE) Urine Bacteria FEW (NEGATIVE) Urine HCG, Qual (NEGATIVE) Urine Opiates Screen (NEGATIVE) Ur Oxycodone Screen (NEGATIVE) Urine Methadone Screen (NEGATIVE) Ur Barbiturates Screen (NEGATIVE) Ur Phencyclidine Scrn (NEGATIVE) Ur Amphetamine Screen (NEGATIVE) U Methamphetamines Scrn (NEGATIVE) U Benzodiazepines Scrn (NEGATIVE) U Cocaine Metab Screen (NEGATIVE) U Marijuana (THC) Screen (NEGATIVE) 04/16/17 Range/Units 12:15 WBC (4.0-11.0) K/uL RBC (4.30-5.90) M/uL Hgb (12.0-16.0) g/dL Hct (36.0-46.0) % MCV (80.0-98.0) fL MCH (27.0-32.0) pg MCHC (31.0-37.0) g/dL RDW Std Deviation (28.0-62.0) fl RDW Coeff of Zak (11.0-15.0) % Plt Count (150-400) K/uL MPV (7.40-12.00) fL Add Manual Diff Neutrophils % (Manual) (48.0-80.0) % Band Neutrophils % % Lymphocytes % (Manual) (16.0-40.0) % Monocytes % (Manual) (0.0-15.0) % Basophils % (Manual) (0.0-1.5) % Nucleated RBC % /100WBC Absolute Seg Neuts (1.4-5.7) Band Neutrophils # Lymphocytes # (Manual) (0.6-2.4) Monocytes # (Manual) (0.0-0.8) Basophils # (Manual) (0.0-0.1) Nucleated RBCs # K/uL ABG pH (7.35-7.45) ABG pCO2 (35-45) mmHG ABG pO2 (75-100) mmHG ABG HCO3 (22-26) mEq/L ABG Total CO2 ABG Base Excess (-2.0-2.0) Lactate 2.3 H (0.20-2.00) mmol/L Sodium (136-146) mmol/L Potassium (3.5-5.1) mmol/L Chloride (98-110) mmol/L Carbon Dioxide (21-31) mmol/L BUN (6.0-23.0) mg/dL Creatinine (0.6-1.5) mg/dL Est Cr Clr Drug Dosing Estimated GFR (MDRD) ml/min Glucose (60-110) mg/dL Calcium (8.8-10.8) mg/dL Total Bilirubin (0.1-1.5) mg/dL AST (5-40) IU/L ALT (8-54) IU/L Alkaline Phosphatase (40-150) Total Protein (6.0-8.0) g/dL Albumin (3.5-5.0) g/dL Globulin (2.0-3.5) g/dL Albumin/Globulin Ratio (1.3-2.8) Urine Color Urine Appearance Urine pH (5.0-8.0) Ur Specific [place] (1.001-1.035) Urine Protein (NEGATIVE) mg/dL Urine Glucose (UA) (NEGATIVE) mg/dL Urine Ketones (NEGATIVE) mg/dL Urine Occult Blood (NEGATIVE) Urine Nitrite (NEGATIVE) Urine Bilirubin (NEGATIVE) Urine Urobilinogen (<2.0) EU/dL Ur Leukocyte Esterase (NEGATIVE) Urine RBC (0-2/HPF) Urine WBC (0-5/HPF) Ur Epithelial Cells (NONE-FEW) Amorphous Sediment (NEGATIVE) Urine Bacteria (NEGATIVE) Urine HCG, Qual (NEGATIVE) Urine Opiates Screen (NEGATIVE) Ur Oxycodone Screen (NEGATIVE) Urine Methadone Screen (NEGATIVE) Ur Barbiturates Screen (NEGATIVE) Ur Phencyclidine Scrn (NEGATIVE) Ur Amphetamine Screen (NEGATIVE) U Methamphetamines Scrn (NEGATIVE) U Benzodiazepines Scrn (NEGATIVE) U Cocaine Metab Screen (NEGATIVE) U Marijuana (THC) Screen (NEGATIVE) Meds: Medications Generic Name Dose Route Start Last Admin Trade Name Freq PRN Reason Stop Dose Admin Insulin Human Regular 100 unit 100 mls @ 0 mls/hr 04/16/17 12:15 04/16/17 12: 55 / Sodium Chloride IV 0.22 unit/kg/hr TITRATE PIPPA 10 mls/hr Protocol Titration 0.1 UNIT/KG/HR Sodium Chloride 1,000 mls @ 999 mls/hr 04/16/17 13:31 Normal Saline IV 04/16/17 14:31 .BOLUS ONE Potassium Chloride/Sodium Chloride 1,000 mls @ 150 mls/hr 04/16/17 13:45 Normal Saline With 40 Meq Kcl IV ASDIRECTED PIPPA Discontinued Medications Generic Name Dose Route Start Last Admin Trade Name Freq PRN Reason Stop Dose Admin Sodium Chloride 1,000 mls @ 999 mls/hr 04/16/17 11:06 04/16/17 13:09 Normal Saline IV 04/16/17 12:06 999 mls/hr NOW STA Administration Sodium Chloride 1,000 mls @ 999 mls/hr 04/16/17 12:08 04/16/17 12:26 Normal Saline IV 04/16/17 13:08 999 mls/hr STAT ONE Administration Insulin Human Regular 10 unit 04/16/17 11:27 04/16/17 11:30 Novolin R SUBCUT 04/16/17 11:28 10 units ONETIME ONE Administration Protocol Sodium Bicarbonate 50 meq 04/16/17 11:39 04/16/17 12:26 Sodium Bicarbonate 8.4% IVPUSH 04/16/17 11:40 50 meq ONETIME ONE Administration Departure - Departure Time of Disposition: 13:47 Disposition: Admitted As Inpatient 65 Clinical Impression: DKA (diabetic ketoacidoses) Qualifiers: Diabetes mellitus type: type 1 Diabetes mellitus complication detail: without coma Qualified Code(s): E10.10 - Type 1 diabetes mellitus with ketoacidosis without coma - Discharge Information Referrals: Maynor Black MD [Primary Care Provider] - Forms: ED Department Discharge - My Orders Last 24 Hours: My Active Orders 04/16/17 11:59 Restraint Initiate Non-VIOL/Non-SD [OM.PC] Stat 04/16/17 12:00 Restraint Monitoring Non-VIOL/Non-SD [OM.PC] Daily 04/16/17 12:15 CULTURE BLOOD [BC] Stat Insulin Regular, Human [NovoLIN R] 100 unit Sodium Chloride 0.9% [Normal Saline] 99 ml IV TITRATE 04/16/17 12:22 Urinary Catheter Assessment [RC] ASDIRECTED 04/16/17 12:30 Justin Catheter Insertion [Insert Urinary Catheter] [OM.PC] Q24H 04/16/17 12:54 Admission Status [Patient Status] [ADT] Stat 04/16/17 13:27 Head wo Cont [CT] Stat AMMONIA VENOUS [CHEM] Stat 04/16/17 13:30 CULTURE BLOOD [BC] Stat Blood Culture x2 Reflex Set [OM.PC] Stat 04/16/17 13:45 Sodium Chloride 0.9% with KCl [Normal Saline with 40 mEq KCl] 1,000 ml IV ASDIRECTED 04/17/17 12:00 Restraint Monitoring Non-VIOL/Non-SD [OM.PC] Daily - Assessment/Plan Last 24 Hours: My Active Orders 04/16/17 11:59 Restraint Initiate Non-VIOL/Non-SD [OM.PC] Stat 04/16/17 12:00 Restraint Monitoring Non-VIOL/Non-SD [OM.PC] Daily 04/16/17 12:15 CULTURE BLOOD [BC] Stat Insulin Regular, Human [NovoLIN R] 100 unit Sodium Chloride 0.9% [Normal Saline] 99 ml IV TITRATE 04/16/17 12:22 Urinary Catheter Assessment [RC] ASDIRECTED 04/16/17 12:30 Justin Catheter Insertion [Insert Urinary Catheter] [OM.PC] Q24H 04/16/17 12:54 Admission Status [Patient Status] [ADT] Stat 04/16/17 13:27 Head wo Cont [CT] Stat AMMONIA VENOUS [CHEM] Stat 04/16/17 13:30 CULTURE BLOOD [BC] Stat Blood Culture x2 Reflex Set [OM.PC] Stat 04/16/17 13:45 Sodium Chloride 0.9% with KCl [Normal Saline with 40 mEq KCl] 1,000 ml IV ASDIRECTED 04/17/17 12:00 Restraint Monitoring Non-VIOL/Non-SD [OM.PC] Daily
[2017-04-16] MEDS ORDERED: Sodium Bicarbonate 8.4% 50 MEQ/50 ML Syringe IVPUSH ONE (11:39)
[2017-04-16] MEDS ORDERED: Sodium Chloride 0.9% 1,000 ML IV ONE ×2 (12:08→13:31)
--- NOTE | 2017-04-16 12:47 | PCM.PRNOTE ---
- Free Text/Narrative Note: Called to ER to evaluate patient for difficult IV access. Pt is known to anesthesia staff as difficult and ultrasound was brought in with a quick evaluation for peripheral IV placement. After consultation with the ER physician it was concluded that a central line would be more appropriate as patient will need aggressive IV fluids and medication treatment. Ultrasound was used to visualize jugular vein. Sterile prep and drape was applied. Access was obtained using Arrow kit triple lumen 7 togolese. Wire was inserted easily. Dilator was inserted over the wire easily. Triple lumen catheter was inserted and blood withdrawn from each lumen. Lumen was sutured in place and sterile dressing was applied. Chest x ray and restraints were ordered as patient was lethargic and uncooperative. Will follow up with evaluation after chest x ray.
[2017-04-16 12:49] LABS: CHLORIDE,CL 113 mmol/L (98-110); SODIUM,NA 146 mmol/L (136-146)
--- NOTE | 2017-04-16 13:01 | CR ---
EXAMINATION: Portable chest radiograph. HISTORY: Shortness of breath. FINDINGS: The trachea is midline. The cardiomediastinal silhouette is within normal limits. No pulmonary infilt rates, effusions or pneumothorax. There is a right-sided central line with tip in good position. Osseous structures appear unremarkable. IMPRESSION: No acute cardiopulmonary process.
[2017-04-16] MEDS ORDERED: Sodium Chloride 0.9% with KCl 1,000 ML IV SCH (13:45)
[2017-04-16 14:34] LABS: CHLORIDE,CL 126 mmol/L (98-110); SODIUM,NA 154 mmol/L (136-146)
[2017-04-16] MEDS ORDERED: Levofloxacin/Dextrose 5%-Water 500 MG in Premix Bag 1 BAG IV SCH (14:45)
[2017-04-16] MEDS ORDERED: Lidocaine 2% 5 ML SDV ONE (14:54)
[2017-04-16] MEDS ORDERED: Ondansetron 4 MG/2 ML SDV IVPUSH PRN (15:06)
--- NOTE | 2017-04-16 15:16 | CT ---
EXAMINATION: Non contrast CT head. Coronal and sagittal reformats. HISTORY: Pain FINDINGS: Mild motion artifact is noted. No evidence of intra or extra axial hemorrhage, mass, midline shift, hydrocephalus or edema. No hypoattenuation changes in the major vascular territories to suggest acute infarct. No abnormal intracranial calcifications are detected. No evidence of substantial vascular calcificat ions. Paranasal sinuses and mastoid air cells are well aerated without substantial findings. The orbits an d globes are symmetric. Pituitary fossa appears unremarkable. Calvarium is intact. No evidence of skull fracture. IMPRESSION: No acute intracranial findings.
--- NOTE | 2017-04-16 15:22 | PCM.PRNOTE ---
- Free Text/Narrative Note: Called to ICU for Arterial Line placement for BP monitoring and frequent lab draws through the evening. Pt prepped and draped for left radial arterial line and RN holding arm in place. Pt was given lidocaine injection to area prior and radial artery was visualized using ultrasound. Arrow kit art line used and attempts x1. Wire inserted easily following pass through method. Blood return and positive wave form with no ill effects. Sterile dressing applied and taped in place.
--- NOTE | 2017-04-16 15:36 | PCM.HP ---
H&P History of Present Illness - General Date of Service: 04/16/17 Source of Information: Family, Old Records, Provider History Limitations: Reports: Altered Mental Status - History of Present Illness Initial Comments - Free Text/Narative: 26 year old Type 1 diabetic was brought to ER today by her father who saw her breathing hard this morning and did not respond to his talking to her. He picked her up and carried her into the ER as he was worried that it would take the ambulance too long to get there. Lanie has had multiple admissions for DKA in the past. She has had great difficulty with chronic right upper quadrant abdominal pain and with diabetic gastroparesis causing repetitive vomiting of many of the food types that she wants to eat. She has had opiate meds to help the abdominal pain and when we attempted to wean her off of them, she started to take large doses of tylenol and ibuprofen, resulting in Tylenol liver dysfunction and a large duodenal ulcer. She has not reliably followed instructions to follow up with the assistant offset press operator many times due to the lack of reliable transportation and due to her desire to deny the existence of this condition. Her main support is her father whom she lives with and she has a fiancee who may or may not be a support. Onset of Symptoms: Reports: Today Duration of Symptoms: Reports: Hour(s):, Getting Worse Location: Reports: Head, Chest, Abdomen Improves with: Reports: None Worsens with: Reports: None Context: Denies: Trauma, Travel Associated Symptoms: Reports: Confusion, Loss of Appetite, Malaise, Nausea/ Vomiting, Weakness. Denies: Cough, Fever/Chills - Related Data Allergies/Adverse Reactions: Allergies Allergy/AdvReac Type Severity Reaction Status Date / Time acetaminophen [From Tylenol] Allergy Liver Verified 12/26/16 07:06 Problems amoxicillin Allergy Hives Verified 12/26/16 07:06 amoxicillin trihydrate Allergy Hives Verified 12/26/16 07:06 [From Amoxil] ibuprofen Allergy Liver Verified 12/26/16 07:06 Problems ketorolac tromethamine Allergy Hives Verified 12/26/16 07:06 [From Toradol] metoclopramide HCl Allergy Airway Verified 12/26/16 07:06 [From Reglan] Tightness tramadol Allergy Hives Verified 12/26/16 07:06 haldol Allergy Swelling Uncoded 12/26/16 07:06 Home Medications: Home Meds LORazepam [Ativan] 1 mg PO TID PRN 03/24/16 [History] Ondansetron [Ondansetron ODT] 8 mg PO QID PRN 04/19/16 [History] Insulin Aspart [Novolog Flexpen] 16 - 20 unit SUBCUT QIDACANDBED 05/15/16 [ History] Morphine 30 mg PO 5XDAY 11/30/16 [History] Past Medical History HEENT History: Reports: Allergic Rhinitis Other HEENT History: dental abcess Cardiovascular History: Reports: None Respiratory History: Reports: Asthma Gastrointestinal History: Reports: GI Bleed, Hepatitis, PUD, Other (See Below) ( Diabetic gastroparesis, right upper quadrant pain chronic, s/p cholecystectomy) Other Gastrointestinal History: hx of C-diff, hx of Hepatitis B Genitourinary History: Reports: UTI, Recurrent Other Genitourinary History: current UTI 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 History: Reports: Other (See Below) Other OB/BYN History: had miscarriage twice Musculoskeletal History: Reports: Back Pain, Chronic Neurological History: Reports: Migraines, 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 Psychiatric History: Reports: Anxiety, Depression Endocrine/Metabolic History: Reports: Diabetes, Type I Hematologic History: Reports: Anemia, Blood Transfusion(s) Immunologic History: Reports: None Oncologic (Cancer) History: Reports: None Dermatologic History: Reports: Other (See Below) Other Dermatologic History: wound dishiscence causing port removal R upper chest --dehiscence from inadequate diet - Infectious Disease History Infectious Disease History: Reports: C-Difficile, Hepatitis B - Past Surgical History Head Surgeries/Procedures: Reports: None HEENT Surgical History: Reports: Tonsillectomy Cardiovascular Surgical History: Reports: None Respiratory Surgical History: Reports: None GI Surgical History: Reports: Appendectomy, Cholecystectomy, ERCP Female Surgical History: Reports: None Endocrine Surgical History: Reports: None Neurological Surgical History: Reports: None Musculoskeletal Surgical History: Reports: None Oncologic Surgical History: Reports: None Dermatological Surgical History: Reports: None - History Comment History Comment: She has had over [address] scans in the last 4 years. Social & Family History - Family History Family Medical History: Noncontributory HEENT: Reports: Impaired Vision Cardiac: Reports: Heart Failure Respiratory: Reports: Asthma GI: Reports: None : Reports: Renal Disease/Insufficiency OBGYN: Reports: Musculoskeletal: Reports: Back pain, Chronic Neurological: Reports: Seizure Psychiatric: Reports: None Endocrine/Metabolic: Reports: Diabetes, Type I Hematologic: Reports: None Immunologic: Reports: None Dermatologic: Reports: None Oncologic: Reports: Breast, Cervix - Tobacco Use Smoking Status *Q: Unknown Ever Smoked Years of Tobacco use: 4 Packs/Tins Daily: 0.5 Used Tobacco, but Quit: Yes Month Tobacco Last Used: 9 months Second Hand Smoke Exposure: No - Caffeine Use Caffeine Use: Reports: None - Alcohol Use Days Per Week of Alcohol Use: 0 - Recreational Drug Use Recreational Drug Use: Yes Drug Use in Last 12 Months: No Recreational Drug Type: Reports: Other (see below) Other Recreational Drug Type: patient verbalized she took oxymorphone prior to admission Recreational Drug Use Frequency: Patient Refuses To Answer - Living Situation & Occupation Living situation: Reports: with Significant Other, with Family, Other Occupation: Unemployed H&P Review of Systems - Review of Systems: Review Of Systems: See Below General: Reports: Weakness HEENT: Reports: Other (Does not verbalize) Pulmonary: Reports: Shortness of Breath Cardiovascular: Reports: Other (unknow) Gastrointestinal: Reports: Abdominal Pain Genitourinary: Reports: No Symptoms Musculoskeletal: Reports: No Symptoms Skin: Reports: No Symptoms Psychiatric: Reports: Confusion Neurological: Reports: Confusion Hematologic/Lymphatic: Reports: No Symptoms Immunologic: Reports: No Symptoms Exam - Exam Exam: See Below - Vital Signs Vital Signs: Last Vital Signs Temp 36.1 C 04/16/17 11:00 Pulse 131 H 04/16/17 12:52 Resp 32 H 04/16/17 12:52 BP 101/64 04/16/17 13:02 Pulse Ox 100 04/16/17 12:52 Weight: 44 kg - Exam Quality Assessment: Central Line/PICC General: Lethargic HEENT: Conjunctiva Clear, EACs Clear, Mucosa Moist & Petrey, Nares Patent, Posterior Pharynx Clear Neck: Supple, Trachea Midline Lungs: Clear to Auscultation, Normal Respiratory Effort Cardiovascular: Regular Rate, Regular Rhythm GI/Abdominal Exam: Normal Bowel Sounds, Soft, No Mass Back Exam: Normal Inspection Extremities: Normal Inspection, Normal Range of Motion, Non-Tender, No Pedal Edema Skin: Dry, Intact, Cool Neurological: Other (Initially patient only responsive to painful stim. Patient has slowly improved and has opened eyes to command but was not verbalizing) Neuro Extensive - Motor, Sensory, Reflexes: Other (nonambulatory at this time, patient minimally responsive to commands) Psychiatric: No: Alert - Patient Data Lab Results Last 24 hrs: Laboratory Results - last 24 hr 04/16/17 Range/Units 15:11 POC Glucose 221 H (60-110) mg/dL Result Diagrams: 04/16/17 12:15 04/16/17 14:05 *Q Meaningful Use (ADM) - VTE *Q VTE Criteria *Q: - Stroke *Q Stroke Criteria *Q: - AMI *Q AMI Criteria *Q: - Problem List (1) Diabetic ketoacidosis SNOMED Code(s): 135069384 ICD Code: E13.10 - OTH DIABETES MELLITUS WITH KETOACIDOSIS WITHOUT COMA Status: Acute Priority: High Current Visit: Yes Problem Details: continue monitoring via electronic ICU Qualifiers: Diabetes mellitus type: type 1 Diabetes mellitus complication detail: without coma Qualified Code(s): E10.10 - Type 1 diabetes mellitus with ketoacidosis without coma (2) Abdominal pain, chronic, generalized SNOMED Code(s): 698092339 ICD Code: R10.84 - GENERALIZED ABDOMINAL PAIN; G89.29 - OTHER CHRONIC PAIN Status: Acute Priority: High Current Visit: No (3) Altered mental status SNOMED Code(s): 574920077 ICD Code: R41.82 - ALTERED MENTAL STATUS, UNSPECIFIED Status: Acute Priority: High Current Visit: No (4) Dehydration SNOMED Code(s): 58984251 ICD Code: E86.0 - DEHYDRATION Status: Acute Priority: High Current Visit: No (5) Elevated liver enzymes SNOMED Code(s): 283224306 ICD Code: R74.8 - ABNORMAL LEVELS OF OTHER SERUM ENZYMES Status: Acute Priority: High Current Visit: No (6) Gastroparesis due to DM SNOMED Code(s): 000398318 ICD Code: E11.43 - TYPE 2 DIABETES W DIABETIC AUTONOMIC (POLY)NEUROPATHY; K31.84 - GASTROPARESIS Status: Acute Priority: High Current Visit: No (7) Hyperammonemia SNOMED Code(s): 9870220 ICD Code: E72.20 - DISORDER OF UREA CYCLE METABOLISM, UNSPECIFIED Status: Acute Priority: High Current Visit: No Problem List Initiated/Reviewed/Updated: Yes Orders Last 24hrs: Active Orders 24 hr Category Date Time Status Bedrest Bedside Commode [RC] ASDIRECTED Care 04/16/17 14:51 Ordered Intake and Output [RC] QSHIFT Care 04/16/17 14:53 Ordered Pulse Oximetry [RC] CONTINUOUS Care 04/16/17 14:53 Ordered Vital Signs [RC] Q4H Care 04/16/17 14:51 Ordered Nothing per Oral Now Diet [DIET] Diet 04/16/17 Dinner Ordered ABG [BLOOD GAS ARTERIAL] [BG] Routine Lab 04/16/17 15:10 Ordered Levofloxacin/Dextrose 5%-Water [Levaquin in D5W 500 MG/ Med 04/16/17 14:45 Ordered 100 ML] 500 mg Premix Bag 1 bag IV Q24H Ondansetron [Zofran] Med 04/16/17 15:06 Ordered 4 mg IVPUSH Q4H PRN Arterial Line Insertion [OM.PC] Stat Oth 04/16/17 14:49 Ordered Arterial Line Management [OM.PC] Stat Oth 04/16/17 14:49 Ordered Resuscitation Status Routine Resus Stat 04/16/17 14:51 Ordered Medication Orders Insulin Human Regular 100 unit (/ Sodium Chloride) 100 mls @ 0 mls/hr IV TITRATE PIPPA; 0.1 UNIT/KG/HR PRN Reason: Protocol Last Titration: 04/16/17 14:11 Dose: 0.09 unit/kg/hr, 4 mls/hr Titration: 04/16/17 12:55 Dose: 0.22 unit/kg/hr, 10 mls/hr Admin: 04/16/17 12:32 Dose: 0.13 unit/kg/hr, 6 mls/hr Potassium Chloride/Sodium Chloride (Normal Saline With 40 Meq Kcl) 1,000 mls @ 150 mls/hr IV ASDIRECTED PIPPA Levofloxacin/Dextrose 500 mg/ (Premix) 100 mls @ 100 mls/hr IV Q24H PIPPA Ondansetron HCl (Zofran) 4 mg IVPUSH Q4H PRN PRN Reason: Nausea Assessment/Plan Comment:: Patient is placed in ICU, aggressively hydrated, and is on insulin drip with electrolyte monitoring. EICU is engaged. She is given levofloxacin due to WBC 25,000 with left shift. Blood cultures pending. CT scan of head does not show shift, bleed or cerebral edema as cause for mentation change. ECG was unremarkable for ischemia. Last Ph has gone from 6.9 to 7.2. HCO3 gone from 3 to 5. Arterial line is in and functioning for ABG and blood draw.
[2017-04-16] MEDS ORDERED: D5 1/2 NS w/ 40 mEq/L KCl 1,000 ML IV SCH ×2 (15:45→16:15)
[2017-04-16 16:34] LABS: CHLORIDE,CL 131 mmol/L (98-110); SODIUM,NA 153 mmol/L (136-146)
[2017-04-16] MEDS ORDERED: MVI, Adult with Vitamin K 10 ML, Thiamine 100 MG, Folic Acid 1 MG, Magnesium Sulfate 2 ... IV ONE ×5 (17:24)
[2017-04-16 20:34] LABS: CHLORIDE,CL 127 mmol/L (98-110); SODIUM,NA 150 mmol/L (136-146)
[2017-04-16] MEDS: D5 1/2 NS w/ 40 mEq/L KCl 1,000 ML IV SCH ×2 (21:16→21:26)
[2017-04-16] MEDS ORDERED: Propofol 200 MG/20 ML SDV ONE (21:50)
[2017-04-16] MEDS ORDERED: Rocuronium 10 MG/ML 10 ML Syringe ONE (21:50)
[2017-04-16] MEDS ORDERED: Phenylephrine/Normal Saline 100 MCG/ML 10 ML Syringe ONE (21:51)
[2017-04-16] MEDS ORDERED: Sodium Chloride 0.45% 1,000 ML IV SCH (22:00)
--- NOTE | 2017-04-16 22:45 | PCM.PRNOTE ---
- Free Text/Narrative Note: Called to see patient to perform Lumbar Puncture procedure for increasing lactate levels. Pt was cooperative and able to sit up at the bed side. Lidocaine was infused at the L4-L5 level following a sterile prep and drape to back. 22 g cutting needle from LP kit was inserted until distinctive pop was felt. Opening pressures were obtained and noted to be 27.5 cm H2O. 4 CSF samples or 1 ml were subsequently drawn and labeled as such. Sterile dressing was applied and patient was laid flat. Pt tolerated procedure well.
[2017-04-17] MEDS: Dexamethasone 4 MG/ML SDV IVPUSH SCH ×2 (00:26→06:31)
[2017-04-17] MEDS: Meropenem 2 GM in Sodium Chloride 0.9% 100 ML IV SCH ×2 (00:27→10:51)
[2017-04-17 00:56] LABS: CHLORIDE,CL 121 mmol/L (98-110); SODIUM,NA 145 mmol/L (136-146)
[2017-04-17] MEDS: D5 1/2 NS w/ 40 mEq/L KCl 1,000 ML IV SCH (01:31)
[2017-04-17] MEDS ORDERED: Sodium Chloride 0.45% 1,000 ML IV SCH (02:00)
[2017-04-17 04:25] LABS: CHLORIDE,CL 115 mmol/L (98-110); SODIUM,NA 141 mmol/L (136-146)
[2017-04-17] MEDS ORDERED: Sodium Chloride 0.9% 500 ML IV SCH (05:00)
[2017-04-17] MEDS ORDERED: KCL IV SCH (05:15)
[2017-04-17] MEDS ORDERED: POTASSIUM CHLORIDE IV SCH (05:15)
[2017-04-17] MEDS ORDERED: NACL IV SCH (05:15)
[2017-04-17] MEDS ORDERED: DEXTROSE IV SCH (05:15)
[2017-04-17] MEDS ORDERED: Sodium Chloride 0.9% with KCl 500 ML IV SCH (05:45)
[2017-04-17] MEDS: Pantoprazole 40 MG in Sodium Chloride 0.9% 10 ML IVPUSH SCH ×2 (08:07→10:52)
--- NOTE | 2017-04-17 08:42 | PCM.PN ---
- General Info Date of Service: 04/17/17 Admission Dx/Problem (Free Text): Diabetic Ketoacidosis has been under treatment but this patient is displaying an encephalopathy of uncertain kind; She has vomited once at 6 am, and had 3 loose bm's through the night which test positive for C. Dif. She had an LP late last night which showed 7-10 WBC which are now being identified as monocytes and not neurophils as was originally believed. The patient's antibiotic coverage was changed from Levaquin to meropenem and vancomycin and was also given dexamethasone. This was done because of the severe lactic acid build up during her treatment yesterday. She has had electrolyte monitoring and has had replacement of magnesium and potassium and phosphorus. Subjective Update: She does not talk, eyes open, conjugate gaze, withdraws all limbs to pain, she curls up in position. She is breathing spontaneously and oxygenating well. Functional Status: Reports: Other (No communication, withdraws to pain) - Review of Systems General: Reports: Other (Minimal spontaneous movement) HEENT: Reports: Other (No complaint) Pulmonary: Reports: Cough. Denies: Shortness of Breath, Sputum Cardiovascular: Reports: No Symptoms Gastrointestinal: Reports: Diarrhea, Vomiting Genitourinary: Reports: No Symptoms Musculoskeletal: Reports: No Symptoms Skin: Reports: No Symptoms Neurological: Reports: Confusion, Trouble Speaking Psychiatric: Reports: Other (Unknown) - Patient Data Vitals - Most Recent: Last Vital Signs Temp 37.6 C 04/17/17 04:00 Pulse 117 H 04/16/17 19:00 Resp 28 H 04/17/17 07:00 BP 125/64 04/17/17 07:00 Pulse Ox 100 04/17/17 07:00 Weight - Most Recent: 48 kg I&O - Last 24 Hours: Intake & Output 04/16/17 04/17/17 04/17/17 22:59 06:59 14:59 Intake Total 2288 5550 Output Total 3524 6804 Balance 633 8168 Lab Results Last 24 Hours: Laboratory Results - last 24 hr 04/16/17 04/16/17 04/16/17 Range/Units 15:11 15:20 15:55 ABG pH 7.208 L (7.35-7.45) ABG pCO2 12 L (35-45) mmHG ABG pO2 112 H (75-100) mmHG ABG HCO3 5 L (22-26) mEq/L ABG Total CO2 4.4 ABG Base Excess -20.9 L (-2.0-2.0) Lactate (0.20-2.00) mmol/L Sodium 153 H (136-146) mmol/L Potassium 3.2 L (3.5-5.1) mmol/L Chloride 131 H (98-110) mmol/L Carbon Dioxide < 5 L (21-31) mmol/L BUN 18 (6.0-23.0) mg/dL Creatinine 1.0 (0.6-1.5) mg/dL Est Cr Clr Drug Dosing 58.70 mL/min Estimated GFR (MDRD) > 60.0 ml/min Glucose 169 H (60-110) mg/dL POC Glucose 221 H (60-110) mg/dL Calcium 7.6 L (8.8-10.8) mg/dL Phosphorus (2.4-4.7) mg/dL Magnesium (1.5-2.3) mEq/L Total Bilirubin (0.1-1.5) mg/dL AST (5-40) IU/L ALT (8-54) IU/L Alkaline Phosphatase (40-150) CSF Appearance CSF Color CSF WBC (0-0.005) K/uL CSF RBC (0.0-0.0) M/uL CSF Mononuclear Cells % CSF Polymorphonuclear % CSF Total Protein (15-60) mg/dL 04/16/17 04/16/17 04/16/17 Range/Units 16:03 17:01 18:16 ABG pH (7.35-7.45) ABG pCO2 (35-45) mmHG ABG pO2 (75-100) mmHG ABG HCO3 (22-26) mEq/L ABG Total CO2 ABG Base Excess (-2.0-2.0) Lactate (0.20-2.00) mmol/L Sodium 152 H (136-146) mmol/L Potassium 3.3 L (3.5-5.1) mmol/L Chloride 130 H (98-110) mmol/L Carbon Dioxide 5 L (21-31) mmol/L BUN 16 (6.0-23.0) mg/dL Creatinine 1.1 (0.6-1.5) mg/dL Est Cr Clr Drug Dosing 53.36 mL/min Estimated GFR (MDRD) 59.6 ml/min Glucose 243 H (60-110) mg/dL POC Glucose 166 H 185 H (60-110) mg/dL Calcium 8.2 L (8.8-10.8) mg/dL Phosphorus (2.4-4.7) mg/dL Magnesium (1.5-2.3) mEq/L Total Bilirubin (0.1-1.5) mg/dL AST (5-40) IU/L ALT (8-54) IU/L Alkaline Phosphatase (40-150) CSF Appearance CSF Color CSF WBC (0-0.005) K/uL CSF RBC (0.0-0.0) M/uL CSF Mononuclear Cells % CSF Polymorphonuclear % CSF Total Protein (15-60) mg/dL 04/16/17 04/16/17 04/16/17 Range/Units 18:17 19:03 19:59 ABG pH (7.35-7.45) ABG pCO2 (35-45) mmHG ABG pO2 (75-100) mmHG ABG HCO3 (22-26) mEq/L ABG Total CO2 ABG Base Excess (-2.0-2.0) Lactate (0.20-2.00) mmol/L Sodium (136-146) mmol/L Potassium (3.5-5.1) mmol/L Chloride (98-110) mmol/L Carbon Dioxide (21-31) mmol/L BUN (6.0-23.0) mg/dL Creatinine (0.6-1.5) mg/dL Est Cr Clr Drug Dosing mL/min Estimated GFR (MDRD) ml/min Glucose (60-110) mg/dL POC Glucose 210 H 220 H 233 H (60-110) mg/dL Calcium (8.8-10.8) mg/dL Phosphorus (2.4-4.7) mg/dL Magnesium (1.5-2.3) mEq/L Total Bilirubin (0.1-1.5) mg/dL AST (5-40) IU/L ALT (8-54) IU/L Alkaline Phosphatase (40-150) CSF Appearance CSF Color CSF WBC (0-0.005) K/uL CSF RBC (0.0-0.0) M/uL CSF Mononuclear Cells % CSF Polymorphonuclear % CSF Total Protein (15-60) mg/dL 04/16/17 04/16/17 04/16/17 Range/Units 20:00 20:00 20:53 ABG pH (7.35-7.45) ABG pCO2 (35-45) mmHG ABG pO2 (75-100) mmHG ABG HCO3 (22-26) mEq/L ABG Total CO2 ABG Base Excess (-2.0-2.0) Lactate 8.5 H 8.9 H (0.20-2.00) mmol/L Sodium 150 H (136-146) mmol/L Potassium 2.9 L (3.5-5.1) mmol/L Chloride 127 H (98-110) mmol/L Carbon Dioxide 5 L (21-31) mmol/L BUN 13 (6.0-23.0) mg/dL Creatinine 1.0 (0.6-1.5) mg/dL Est Cr Clr Drug Dosing 58.70 mL/min Estimated GFR (MDRD) > 60.0 ml/min Glucose 252 H (60-110) mg/dL POC Glucose (60-110) mg/dL Calcium 8.0 L (8.8-10.8) mg/dL Phosphorus (2.4-4.7) mg/dL Magnesium (1.5-2.3) mEq/L Total Bilirubin (0.1-1.5) mg/dL AST (5-40) IU/L ALT (8-54) IU/L Alkaline Phosphatase (40-150) CSF Appearance CSF Color CSF WBC (0-0.005) K/uL CSF RBC (0.0-0.0) M/uL CSF Mononuclear Cells % CSF Polymorphonuclear % CSF Total Protein (15-60) mg/dL 04/16/17 04/16/17 04/16/17 Range/Units 21:00 22:00 22:00 ABG pH (7.35-7.45) ABG pCO2 (35-45) mmHG ABG pO2 (75-100) mmHG ABG HCO3 (22-26) mEq/L ABG Total CO2 ABG Base Excess (-2.0-2.0) Lactate (0.20-2.00) mmol/L Sodium (136-146) mmol/L Potassium (3.5-5.1) mmol/L Chloride (98-110) mmol/L Carbon Dioxide (21-31) mmol/L BUN (6.0-23.0) mg/dL Creatinine (0.6-1.5) mg/dL Est Cr Clr Drug Dosing mL/min Estimated GFR (MDRD) ml/min Glucose (60-110) mg/dL POC Glucose 235 H (60-110) mg/dL Calcium (8.8-10.8) mg/dL Phosphorus (2.4-4.7) mg/dL Magnesium (1.5-2.3) mEq/L Total Bilirubin (0.1-1.5) mg/dL AST (5-40) IU/L ALT (8-54) IU/L Alkaline Phosphatase (40-150) CSF Appearance CLEAR CLEAR CSF Color COLORLESS COLORLESS CSF WBC 0.010 H 0.007 H (0-0.005) K/uL CSF RBC 0.000 0.000 (0.0-0.0) M/uL CSF Mononuclear Cells 90.0 100.0 % CSF Polymorphonuclear 10.0 0.0 % CSF Total Protein (15-60) mg/dL 04/16/17 04/16/17 04/16/17 Range/Units 22:00 22:18 23:02 ABG pH (7.35-7.45) ABG pCO2 (35-45) mmHG ABG pO2 (75-100) mmHG ABG HCO3 (22-26) mEq/L ABG Total CO2 ABG Base Excess (-2.0-2.0) Lactate (0.20-2.00) mmol/L Sodium (136-146) mmol/L Potassium (3.5-5.1) mmol/L Chloride (98-110) mmol/L Carbon Dioxide (21-31) mmol/L BUN (6.0-23.0) mg/dL Creatinine (0.6-1.5) mg/dL Est Cr Clr Drug Dosing mL/min Estimated GFR (MDRD) ml/min Glucose (60-110) mg/dL POC Glucose 219 H 206 H (60-110) mg/dL Calcium (8.8-10.8) mg/dL Phosphorus (2.4-4.7) mg/dL Magnesium (1.5-2.3) mEq/L Total Bilirubin (0.1-1.5) mg/dL AST (5-40) IU/L ALT (8-54) IU/L Alkaline Phosphatase (40-150) CSF Appearance CSF Color CSF WBC (0-0.005) K/uL CSF RBC (0.0-0.0) M/uL CSF Mononuclear Cells % CSF Polymorphonuclear % CSF Total Protein 39 (15-60) mg/dL 04/16/17 04/16/17 04/16/17 Range/Units 23:56 23:56 23:58 ABG pH (7.35-7.45) ABG pCO2 (35-45) mmHG ABG pO2 (75-100) mmHG ABG HCO3 (22-26) mEq/L ABG Total CO2 ABG Base Excess (-2.0-2.0) Lactate 8.2 H (0.20-2.00) mmol/L Sodium 145 (136-146) mmol/L Potassium 3.1 L (3.5-5.1) mmol/L Chloride 121 H (98-110) mmol/L Carbon Dioxide 7 L (21-31) mmol/L BUN 8 (6.0-23.0) mg/dL Creatinine 0.9 (0.6-1.5) mg/dL Est Cr Clr Drug Dosing 65.22 mL/min Estimated GFR (MDRD) > 60.0 ml/min Glucose 266 H (60-110) mg/dL POC Glucose 244 H (60-110) mg/dL Calcium 8.0 L (8.8-10.8) mg/dL Phosphorus (2.4-4.7) mg/dL Magnesium (1.5-2.3) mEq/L Total Bilirubin 0.3 (0.1-1.5) mg/dL AST 22 (5-40) IU/L ALT 53 (8-54) IU/L Alkaline Phosphatase 180 H (40-150) CSF Appearance CSF Color CSF WBC (0-0.005) K/uL CSF RBC (0.0-0.0) M/uL CSF Mononuclear Cells % CSF Polymorphonuclear % CSF Total Protein (15-60) mg/dL 04/17/17 04/17/17 04/17/17 Range/Units 01:04 02:13 03:03 ABG pH (7.35-7.45) ABG pCO2 (35-45) mmHG ABG pO2 (75-100) mmHG ABG HCO3 (22-26) mEq/L ABG Total CO2 ABG Base Excess (-2.0-2.0) Lactate (0.20-2.00) mmol/L Sodium (136-146) mmol/L Potassium (3.5-5.1) mmol/L Chloride (98-110) mmol/L Carbon Dioxide (21-31) mmol/L BUN (6.0-23.0) mg/dL Creatinine (0.6-1.5) mg/dL Est Cr Clr Drug Dosing mL/min Estimated GFR (MDRD) ml/min Glucose (60-110) mg/dL POC Glucose 204 H 180 H 173 H (60-110) mg/dL Calcium (8.8-10.8) mg/dL Phosphorus (2.4-4.7) mg/dL Magnesium (1.5-2.3) mEq/L Total Bilirubin (0.1-1.5) mg/dL AST (5-40) IU/L ALT (8-54) IU/L Alkaline Phosphatase (40-150) CSF Appearance CSF Color CSF WBC (0-0.005) K/uL CSF RBC (0.0-0.0) M/uL CSF Mononuclear Cells % CSF Polymorphonuclear % CSF Total Protein (15-60) mg/dL 04/17/17 04/17/17 04/17/17 Range/Units 03:56 03:56 03:56 ABG pH (7.35-7.45) ABG pCO2 (35-45) mmHG ABG pO2 (75-100) mmHG ABG HCO3 (22-26) mEq/L ABG Total CO2 ABG Base Excess (-2.0-2.0) Lactate 9.3 H (0.20-2.00) mmol/L Sodium 141 (136-146) mmol/L Potassium 3.0 L (3.5-5.1) mmol/L Chloride 115 H (98-110) mmol/L Carbon Dioxide 6 L (21-31) mmol/L BUN 5 L (6.0-23.0) mg/dL Creatinine 0.8 (0.6-1.5) mg/dL Est Cr Clr Drug Dosing 73.37 mL/min Estimated GFR (MDRD) > 60.0 ml/min Glucose 245 H (60-110) mg/dL POC Glucose (60-110) mg/dL Calcium 8.0 L (8.8-10.8) mg/dL Phosphorus < 1.0 L (2.4-4.7) mg/dL Magnesium 1.2 L (1.5-2.3) mEq/L Total Bilirubin (0.1-1.5) mg/dL AST (5-40) IU/L ALT (8-54) IU/L Alkaline Phosphatase (40-150) CSF Appearance CSF Color CSF WBC (0-0.005) K/uL CSF RBC (0.0-0.0) M/uL CSF Mononuclear Cells % CSF Polymorphonuclear % CSF Total Protein (15-60) mg/dL 04/17/17 04/17/17 04/17/17 Range/Units 03:58 05:18 06:11 ABG pH (7.35-7.45) ABG pCO2 (35-45) mmHG ABG pO2 (75-100) mmHG ABG HCO3 (22-26) mEq/L ABG Total CO2 ABG Base Excess (-2.0-2.0) Lactate (0.20-2.00) mmol/L Sodium (136-146) mmol/L Potassium (3.5-5.1) mmol/L Chloride (98-110) mmol/L Carbon Dioxide (21-31) mmol/L BUN (6.0-23.0) mg/dL Creatinine (0.6-1.5) mg/dL Est Cr Clr Drug Dosing mL/min Estimated GFR (MDRD) ml/min Glucose (60-110) mg/dL POC Glucose 228 H 204 H 169 H (60-110) mg/dL Calcium (8.8-10.8) mg/dL Phosphorus (2.4-4.7) mg/dL Magnesium (1.5-2.3) mEq/L Total Bilirubin (0.1-1.5) mg/dL AST (5-40) IU/L ALT (8-54) IU/L Alkaline Phosphatase (40-150) CSF Appearance CSF Color CSF WBC (0-0.005) K/uL CSF RBC (0.0-0.0) M/uL CSF Mononuclear Cells % CSF Polymorphonuclear % CSF Total Protein (15-60) mg/dL 04/17/17 04/17/17 04/17/17 Range/Units 06:59 07:42 08:08 ABG pH 7.406 (7.35-7.45) ABG pCO2 13 L (35-45) mmHG ABG pO2 102 H (75-100) mmHG ABG HCO3 8 L (22-26) mEq/L ABG Total CO2 7.5 ABG Base Excess -14.1 L (-2.0-2.0) Lactate (0.20-2.00) mmol/L Sodium (136-146) mmol/L Potassium (3.5-5.1) mmol/L Chloride (98-110) mmol/L Carbon Dioxide (21-31) mmol/L BUN (6.0-23.0) mg/dL Creatinine (0.6-1.5) mg/dL Est Cr Clr Drug Dosing mL/min Estimated GFR (MDRD) ml/min Glucose (60-110) mg/dL POC Glucose 211 H 226 H (60-110) mg/dL Calcium (8.8-10.8) mg/dL Phosphorus (2.4-4.7) mg/dL Magnesium (1.5-2.3) mEq/L Total Bilirubin (0.1-1.5) mg/dL AST (5-40) IU/L ALT (8-54) IU/L Alkaline Phosphatase (40-150) CSF Appearance CSF Color CSF WBC (0-0.005) K/uL CSF RBC (0.0-0.0) M/uL CSF Mononuclear Cells % CSF Polymorphonuclear % CSF Total Protein (15-60) mg/dL Lam Results Last 24 Hours: Microbiology 04/17/17 03:43 Clostridium difficile Toxin A&B (M) - Final Stool / Feces Positive C. Diff Antigen 04/16/17 22:00 Gram Stain - Preliminary Cerebral Spinal Fluid Med Orders - Current: Current Medications Dexamethasone (Dexamethasone) 6 mg IVPUSH Q6H PIPPA Last Admin: 04/17/17 06:31 Dose: 6 mg Insulin Human Regular 100 unit (/ Sodium Chloride) 100 mls @ 0 mls/hr IV TITRATE PIPPA; 0.1 UNIT/KG/HR PRN Reason: Protocol Last Titration: 04/17/17 07:00 Dose: 0.05 unit/kg/hr, 2.5 mls/hr Meropenem 2 gm/ Sodium (Chloride) 100 mls @ 100 mls/hr IV Q8H PIPPA Last Admin: 04/17/17 00:27 Dose: 100 mls/hr Vancomycin HCl 0.75 gm/ Sodium (Chloride) 250 mls @ 250 mls/hr IV Q18H PIPPA Potassium Chloride 40 meq/ (Dextrose/Sodium Chloride) 1,020 mls @ 250 mls/hr IV ASDIRECTED [facility] Last Admin: 04/17/17 06:26 Dose: 250 mls/hr Potassium Chloride/Sodium Chloride (Normal Saline With 40 Meq Kcl) 500 mls @ 125 mls/hr IV ASDIRECTED [facility] Last Admin: 04/17/17 06:11 Dose: 125 mls/hr Pantoprazole Sodium 40 mg/ (Sodium Chloride) 10 mls @ 300 mls/hr IVPUSH DAILY [facility] Last Admin: 04/17/17 08:07 Dose: 300 mls/hr Ondansetron HCl (Zofran) 4 mg IVPUSH Q4H PRN PRN Reason: Nausea Vancomycin HCl (Pharmacy To Dose - Vancomycin) 1 dose .XX ASDIRECTED [facility] Discontinued Medications Dexamethasone Sodium Phosphate (Dexamethasone Sodium Phosphate) 6 mg IVPUSH Q6H [facility] Last Admin: 04/17/17 01:08 Dose: Not Given Sodium Chloride (Normal Saline) 1,000 mls @ 999 mls/hr IV NOW STA Stop: 04/16/17 12:06 Last Admin: 04/16/17 13:09 Dose: 999 mls/hr Sodium Chloride (Normal Saline) 1,000 mls @ 999 mls/hr IV STAT ONE Stop: 04/16/17 13:08 Last Admin: 04/16/17 12:26 Dose: 999 mls/hr Sodium Chloride (Normal Saline) 1,000 mls @ 999 mls/hr IV .BOLUS ONE Stop: 04/16/17 14:31 Last Admin: 04/16/17 14:13 Dose: 999 mls/hr Potassium Chloride/Sodium Chloride (Normal Saline With 40 Meq Kcl) 1,000 mls @ 150 mls/hr IV ASDIRECTED [facility] Last Admin: 04/16/17 15:17 Dose: 150 mls/hr Levofloxacin/Dextrose 500 mg/ (Premix) 100 mls @ 100 mls/hr IV Q24H [facility] Last Admin: 04/16/17 15:17 Dose: 100 mls/hr Potassium Chloride/Dextrose/Sod Cl (D5 1/2 Ns W/ 40 Meq/L Kcl) 1,000 mls @ 200 mls/hr IV .Q5H PIPPA Potassium Chloride 40 meq/ (Dextrose/Sodium Chloride) 1,020 mls @ 200 mls/hr IV .Q5H6M [facility] Last Admin: 04/16/17 17:30 Dose: Not Given Potassium Chloride 40 meq/ (Dextrose/Sodium Chloride) 1,020 mls @ 200 mls/hr IV .Q5H6M ONE Stop: 04/16/17 21:05 Potassium Chloride/Dextrose/Sod Cl (D5 1/2 Ns W/ 40 Meq/L Kcl) 1,000 mls @ 200 mls/hr IV ASDIRECTED [facility] Last Admin: 04/16/17 16:32 Dose: 200 mls/hr Multivitamins/Minerals 10 ml/Thiamine HCl 100 mg/ Folic Acid 1 mg/ Magnesium Sulfate 2 gm/ Sodium Chloride 1,015.2 mls @ 999 mls/hr IV ONETIME ONE Stop: 04/16/17 18:24 Last Admin: 04/16/17 18:05 Dose: 999 mls/hr Potassium Chloride/Dextrose/Sod Cl (D5 1/2 Ns W/ 40 Meq/L Kcl) 1,000 mls @ 250 mls/hr IV ASDIRECTED [facility] Last Admin: 04/17/17 01:31 Dose: 250 mls/hr Sodium Chloride (Sodium Chloride 0.45%) 1,000 mls @ 1,000 mls/hr IV ASDIRECTED [facility] Last Admin: 04/16/17 22:10 Dose: 1,000 mls/hr Vancomycin HCl 1 gm/ Sodium (Chloride) 250 mls @ 166 mls/hr IV ONETIME ONE Stop: 04/17/17 00:30 Last Admin: 04/17/17 01:07 Dose: Not Given Vancomycin HCl 1 gm/ Sodium (Chloride) 250 mls @ 250 mls/hr IV ONETIME ONE Stop: 04/17/17 00:44 Last Admin: 04/17/17 00:27 Dose: 250 mls/hr Sodium Chloride (Sodium Chloride 0.45%) 1,000 mls @ 1,000 mls/hr IV ASDIRECTED [facility] Last Admin: 04/17/17 02:00 Dose: 1,000 mls/hr Sodium Chloride (Normal Saline) 500 mls @ 500 mls/hr IV .BOLUS [facility] Insulin Human Regular (Novolin R) 10 unit SUBCUT ONETIME ONE PRN Reason: Protocol Stop: 04/16/17 11:28 Last Admin: 04/16/17 11:30 Dose: 10 units Lidocaine (Xylocaine-Mpf 2%) Confirm Administered Dose 5 ml .ROUTE .STK-MED ONE Stop: 04/16/17 14:55 Last Admin: 04/16/17 15:24 Dose: Not Given Phenylephrine HCl (Phenylephrine In Ns 100 Mcg/Ml) Confirm Administered Dose 1 mg .ROUTE .STK-MED ONE Stop: 04/16/17 21:52 Propofol (Diprivan 20 Ml) Confirm Administered Dose 400 mg .ROUTE .STK-MED ONE Stop: 04/16/17 21:51 Rocuronium [place] (Zemuron) Confirm Administered Dose 100 mg .ROUTE .STK-MED ONE Stop: 04/16/17 21:51 Sodium Bicarbonate (Sodium Bicarbonate 8.4%) 50 meq IVPUSH ONETIME ONE Stop: 04/16/17 11:40 Last Admin: 04/16/17 12:26 Dose: 50 meq - Exam Quality Assessment: Supplemental Oxygen, Central Line/PICC, Urine Catheter General: Lethargic, Other (Eyes open spontaneously, not to command, she ) HEENT: Pupils Equal, Pupils Reactive, EOMI, Mucous Membr. Moist/Hydro Neck: Supple Lungs: Clear to Auscultation, Normal Respiratory Effort, Other (Kussmaul breathing has resolved) Cardiovascular: Regular Rate, Regular Rhythm, No Murmurs, Tachycardia GI/Abdominal Exam: Normal Bowel Sounds, Soft, Non-Tender, No Distention. No: Guarding, Rebound (Female) Exam: Normal External Exam Back Exam: Normal Inspection, Full Range of Motion Extremities: Normal Range of Motion, No Pedal Edema, Normal Capillary Refill, Other (Arms unremarkable, left thigh mass of uncertain type) Skin: Warm, Dry, Intact Neurological: No New Focal Deficit, Other (Patient has little spontaneous movement, attempts to move limbs, draws herself in ball, is intermittently cooperative) Psy/Mental Status: Labile Mood, Anxious, Other (patient cannot verbalize and looks anxious according to her father) - Problem List & Annotations (1) Diabetic ketoacidosis SNOMED Code(s): 853866547 Code(s): E13.10 - OTH DIABETES MELLITUS WITH KETOACIDOSIS WITHOUT COMA Status: Acute Priority: High Current Visit: Yes Qualifiers: Diabetes mellitus type: type 1 Diabetes mellitus complication detail: without coma Qualified Code(s): E10.10 - Type 1 diabetes mellitus with ketoacidosis without coma Annotation/Comment:: continue monitoring via electronic ICU (2) Abdominal pain, chronic, generalized SNOMED Code(s): 104021476 Code(s): R10.84 - GENERALIZED ABDOMINAL PAIN; G89.29 - OTHER CHRONIC PAIN Status: Acute Priority: High Current Visit: No (3) Altered mental status SNOMED Code(s): 868332362 Code(s): R41.82 - ALTERED MENTAL STATUS, UNSPECIFIED Status: Acute Priority: High Current Visit: No (4) Dehydration SNOMED Code(s): 38576719 Code(s): E86.0 - DEHYDRATION Status: Acute Priority: High Current Visit : No (5) Elevated liver enzymes SNOMED Code(s): 736287659 Code(s): R74.8 - ABNORMAL LEVELS OF OTHER SERUM ENZYMES Status: Acute Priority: High Current Visit: No (6) Gastroparesis due to DM SNOMED Code(s): 583951683 Code(s): E11.43 - TYPE 2 DIABETES W DIABETIC AUTONOMIC (POLY)NEUROPATHY; K31.84 - GASTROPARESIS Status: Acute Priority: High Current Visit: No (7) Hyperammonemia SNOMED Code(s): 0584939 Code(s): E72.20 - DISORDER OF UREA CYCLE METABOLISM, UNSPECIFIED Status: Acute Priority: High Current Visit: No (8) Encephalopathy acute SNOMED Code(s): 9274282 Code(s): G93.40 - ENCEPHALOPATHY, UNSPECIFIED Status: Acute Current Visit : Yes (9) C. difficile diarrhea SNOMED Code(s): 3733634723812 Code(s): A04.72 - ENTEROCOLITIS D/T CLOSTRIDIUM DIFFICILE, NOT SPCF RECUR Status: Acute Current Visit: Yes - Problem List Review Problem List Initiated/Reviewed/Updated: Yes - My Orders Last 24 Hours: My Active Orders 04/16/17 14:49 Arterial Line Insertion [OM.PC] Stat Arterial Line Management [OM.PC] Stat 04/16/17 14:51 Bedrest Bedside Commode [RC] ASDIRECTED Vital Signs [RC] Q1H Resuscitation Status Routine 04/16/17 14:53 Intake and Output [RC] Q12H Pulse Oximetry [RC] CONTINUOUS 04/16/17 15:00 Restraint Non-Violent Discontinue [OM.PC] Routine 04/16/17 15:06 Ondansetron [Zofran] 4 mg IVPUSH Q4H PRN 04/16/17 Dinner Nothing per Oral Now Diet [DIET] 04/17/17 08:14 Head w Cont [CT] Stat - Assessment Assessment:: She remains in critical condition, is receiving treatment for meningitis, has improved ketoacidosis, has increasing lactic acidosis, has encephalopathy of uncertain mechanism, has c. dif diarrhea, has gastroparesis, and chronic opiate withdrawal. - Plan Plan:: ! Patient is placed in ICU, aggressively hydrated, and is on insulin drip with electrolyte monitoring. EICU is engaged. She is given levofloxacin due to WBC 25,000 with left shift. Blood cultures pending. CT scan of head does not show shift, bleed or cerebral edema as cause for mentation change. ECG was unremarkable for ischemia. Last Ph has gone from 6.9 to 7.2. HCO3 gone from 3 to 5. Arterial line is in and functioning for ABG and blood draw. 04/17/17 Patient has improveed with ketoacidosis but lactic acidosis has not improved. She has continued to have alterer mentation and EICU doctor after LP last night covered her for meningitis with antibiotic change. She has not improved her mentation and needs higher level of care. EICU doctor urges tranfer and arrangements made with Dr. Sanches at ICU at [facility].
[2017-04-17] MEDS ORDERED: metroNIDAZOLE/Normal Saline 500 MG in Premix Bag 1 BAG IV ONE (09:11)
[2017-04-17] MEDS ORDERED: Magnesium Sulfate/Water 2 GM in Premix Bag 1 BAG IV ONE ×2 (09:14→09:36)
--- NOTE | 2017-04-17 09:15 | CT ---
EXAMINATION: CT head with contrast. TECHNIQUE: Axial CT images obtained through the head following the administration of 50 mL of Isovue- 370. Coronal reconstructions obtained. HISTORY: Encephalopathy Comparison: Noncontrast head CT dated 04/16/2017. FINDINGS: There is mild motion artifact. No evidence of intra or extra axial hemorrhage, mass, midline shift, hydrocephalus or edema. There is no abnormal enhancement. No hypoattenuation changes in the major vascular territories to suggest acute infarct. No abnormal intracranial calcifications are detected. No evidence of substantial vascular calcificat ions. Paranasal sinuses and mastoid air cells are well aerated without substantial findings. Pituitary fossa appears unremarkable. Calvarium is intact. No evidence of skull fracture. IMPRESSION: No acute intracranial findings.
[2017-04-17] MEDS ORDERED: Potassium Phosphates 30 MMOLE in Sodium Chloride 0.9% 250 ML IV ONE (09:30)
--- NOTE | 2017-04-17 10:45 | CR ---
EXAM DATE: 04/16/17 PATIENT'S AGE: 26 Patient: ALEXSANDER DUMONT Facility: [place] [place] Site . Site : 1990 Study: XRay Abdomen [id number]/16/2017 10:47:23 PM Ordering Physician: Sofia Bhatti Final Report: INDICATION: Sepsis TECHNIQUE: Abdominal radiograph 3 views COMPARISON: None FINDINGS: Bowel: The bowel gas pattern is normal without evidence of bowel obstruction. Soft tissues: No evidence of pneumoperitoneum present. No sign of soft tissue mass seen. No suspicious calcifications noted. Moderate hepatomegaly is noted. The patient is status post cholecystectomy. Bones: Unremarkable for age. IMPRESSIONS: 1. Unremarkable radiographs of the abdomen. Dictated by: Ady Willams MD @ 04/16/2017 22:51:00 (Electronic Signature) Report Signed by Proxy. VALERIO
[2017-04-17 11:26] VITALS: BP 130/61
== END 2017-04-17 10:30 | DRG 637 ==
LOC: MW.ED 10:42 → MW.ICU 14:22
PROVIDERS: ADMIT Family Medicine; ATTEND Family Medicine
PROC: 009U3ZX Drainage of Spinal Canal, Percutaneous Approach, Diagnostic (ICD-10-PCS; principal; 2017-04-16)
DX: E10.10 Type 1 diabetes mellitus with ketoacidosis without coma (principal); G93.40 Encephalopathy, unspecified; G03.9 Meningitis, unspecified; E72.20 Disorder of urea cycle metabolism, unspecified; A04.72 Enterocolitis due to Clostridium difficile, not specified as recurrent; F11.23 Opioid dependence with withdrawal; Z79.4 Long term (current) use of insulin; G89.29 Other chronic pain; J30.9 Allergic rhinitis, unspecified; K27.9 Peptic ulcer, site unspecified, unspecified as acute or chronic, without hemorrhage or perforation; E10.43 Type 1 diabetes mellitus with diabetic autonomic (poly)neuropathy; K31.84 Gastroparesis; Z86.19 Personal history of other infectious and parasitic diseases; M54.9 Dorsalgia, unspecified; F32.9 Major depressive disorder, single episode, unspecified; F41.9 Anxiety disorder, unspecified; D64.9 Anemia, unspecified; Z87.891 Personal history of nicotine dependence; R10.84 Generalized abdominal pain; E86.0 Dehydration; Z88.1 Allergy status to other antibiotic agents; Z88.6 Allergy status to analgesic agent; Z88.8 Allergy status to other drugs, medicaments and biological substances; Z79.899 Other long term (current) drug therapy
CPT/HCPCS: 36415; 36556; 36600; 36620; 62270; 70450; 70450-26; 70460; 70460-26; 71010; 71010-26; 74020; 74020-26; 80048; 80053; 80305; 81001; 81025; 82140; 82247; 82803; 82962; 83605; 83735; 84075; 84100; 84157; 84450; 84460; 85025; 87040; 87070; 87205; 87324; 89050; 93005; 96361; 96374; 96375; 99285; 99285-25; C9113; J1100; J1815-GY; J1956; J2185; J2704; J3370; J3411; J3475; J3480; J7030; J7040; J7042; J7050

== ENCOUNTER 2017-05-06 10:50 | Emergency (ER) | payer MEDICAID ==
--- NOTE | 2017-05-06 11:59 | EDM.PDOC ---
ED HPI GENERAL MEDICAL PROBLEM - General Chief Complaint: Gastrointestinal Problem Stated Complaint: VOMITING Time Seen by Provider: 05/06/17 11:50 Source of Information: Reports: Patient History Limitations: Reports: No Limitations - History of Present Illness INITIAL COMMENTS - FREE TEXT/NARRATIVE: HISTORY AND PHYSICAL: History of present illness: [Patient comes to emergency room complaining of nausea vomiting and diarrhea which began this morning. She is having difficulty keeping down any fluids. Was last hospitalized about 2 weeks ago in [place] when her Port-A-Cath was removed /dehisced. She has not had fever or chills. She has recently been well and no recent infections. No sore throat or earaches. No chest pain shortness of breath or difficulty breathing. She is well-known to this emergency room and has a long history of insulin- dependent diabetes and GI problems. She was recently hospitalized in [place] and was under the care of numerous specialist. Records in chart are reviewed.] Review of systems: As per history of present illness and below otherwise all systems reviewed and negative. Past medical history: As per history of present illness and as reviewed below otherwise noncontributory. Surgical history: As per history of present illness and as reviewed below otherwise noncontributory. Social history: No reported history of drug or alcohol abuse. Family history: As per history of present illness and as reviewed below otherwise noncontributory. Physical exam: HEENT: Atraumatic, normocephalic. Oral mucous membranes are pink and somewhat moist. Her throat is clear. Neck is supple. no Shotty or tender lymph nodes. Lungs: Clear to auscultation, breath sounds equal bilaterally. Heart: S1S2, regular rate and rhythm. No murmur. Abdomen: Bowel sounds are normoactive throughout. Abdomen is soft. nondistended , generalized mild tenderness throughout. Negative for masses, guarding or rebound.Negative for costovertebral tenderness. Pelvis: Stable nontender. Genitourinary: Deferred. Rectal: Deferred. Extremities: Atraumatic, negative for cords or calf pain. Neurovascular unremarkable. Neuro: Awake, alert, oriented. Motor and sensory unremarkable throughout. Exam nonfocal. Diagnostics: [CBC, CMP, UA, serum ketones, urine , amylase, lipase] Therapeutics: [Benadryl 25 mg IV, Phenergan 25 mg IM, Zofran 4 mg ODT, Zofran 8 mg IV, 1 L normal saline] Impression: [Nausea and vomiting] Plan: [Discussed with patient that her labs show no significant abnormality. Blood sugar is stable in the 280s. This has not abnormally high for this patient. Nausea continues after Zofran and resolves with Phenergan. Benadryl given to prevent dystonia. Patient discharged home with instructions to continue home meds and follow-up with Dr. black this week who is aware that patient is in the ER. She is in agreement with today's plan.] Definitive disposition and diagnosis as appropriate pending reevaluation and review of above. Abdominal Pain Score (Numeric/FACES): 9 - Related Data Allergies Allergy/AdvReac Type Severity Reaction Status Date / Time acetaminophen [From Tylenol] Allergy Liver Verified 05/06/17 11:28 Problems amoxicillin Allergy Hives Verified 05/06/17 11:28 amoxicillin trihydrate Allergy Hives Verified 05/06/17 11:28 [From Amoxil] ibuprofen Allergy Liver Verified 05/06/17 11:28 Problems ketorolac tromethamine Allergy Hives Verified 05/06/17 11:28 [From Toradol] metoclopramide HCl Allergy Airway Verified 05/06/17 11:28 [From Reglan] Tightness tramadol Allergy Hives Verified 05/06/17 11:28 haldol Allergy Swelling Uncoded 12/26/16 07:06 Home Meds: Home Meds LORazepam [Ativan] 1 mg PO TID PRN 03/24/16 [History] Ondansetron [Ondansetron ODT] 8 mg PO QID PRN 04/19/16 [History] Insulin Aspart [Novolog Flexpen] 16 - 20 unit SUBCUT QIDACANDBED 05/15/16 [ History] Insulin Detemir [Levemir] 7 unit SUBCUT QPM 04/30/17 [History] Past Medical History - Past Health History Medical/Surgical History: Denies Medical/Surgical History HEENT History: Reports: Allergic Rhinitis Other HEENT History: dental abcess Cardiovascular History: Reports: None Respiratory History: Reports: Asthma Gastrointestinal History: Reports: GI Bleed, Hepatitis, PUD, Other (See Below) Other Gastrointestinal History: hx of C-diff, hx of Hepatitis B Genitourinary History: Reports: UTI, Recurrent Other Genitourinary History: current UTI 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: Other (See Below) Other OB/BYN History: had miscarriage twice Musculoskeletal History: Reports: Back Pain, Chronic Neurological History: Reports: Migraines, Other (See Below) 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 Psychiatric History: Reports: Anxiety, Depression Endocrine/Metabolic History: Reports: Diabetes, Type I Hematologic History: Reports: Anemia, Blood Transfusion(s) Immunologic History: Reports: None Oncologic (Cancer) History: Reports: None Dermatologic History: Reports: Other (See Below) Other Dermatologic History: wound dishiscence causing port removal R upper chest --dehiscence from inadequate diet - Infectious Disease History Infectious Disease History: Reports: C-Difficile, Chicken Pox, Hepatitis B - Past Surgical History Head Surgeries/Procedures: Reports: None HEENT Surgical History: Reports: Tonsillectomy Cardiovascular Surgical History: Reports: None Respiratory Surgical History: Reports: None GI Surgical History: Reports: Appendectomy, Cholecystectomy, ERCP Female Surgical History: Reports: None Endocrine Surgical History: Reports: None Neurological Surgical History: Reports: None Musculoskeletal Surgical History: Reports: None Oncologic Surgical History: Reports: None Dermatological Surgical History: Reports: None - History Comment History Comment: She has had over [address] scans in the last 4 years. Social & Family History - Family History Family Medical History: Noncontributory HEENT: Reports: Impaired Vision Cardiac: Reports: Heart Failure Respiratory: Reports: Asthma GI: Reports: None : Reports: Renal Disease/Insufficiency OBGYN: Reports: Musculoskeletal: Reports: Back pain, Chronic Neurological: Reports: Seizure Psychiatric: Reports: None Endocrine/Metabolic: Reports: Diabetes, Type I Hematologic: Reports: None Immunologic: Reports: None Dermatologic: Reports: None Oncologic: Reports: Breast, Cervix - Tobacco Use Smoking Status *Q: Never Smoker Years of Tobacco use: 4 Packs/Tins Daily: 0.5 Used Tobacco, but Quit: Yes Month Tobacco Last Used: 9 months Second Hand Smoke Exposure: No - Caffeine Use Caffeine Use: Reports: None - Alcohol Use Days Per Week of Alcohol Use: 0 - Recreational Drug Use Recreational Drug Use: No Drug Use in Last 12 Months: No Recreational Drug Type: Reports: Other (see below) Other Recreational Drug Type: patient verbalized she took oxymorphone prior to admission Recreational Drug Use Frequency: Patient Refuses To Answer - Living Situation & Occupation Living situation: Reports: with Significant Other, with Family, Other Occupation: Unemployed ED ROS GENERAL - Review of Systems Review Of Systems: ROS reveals no pertinent complaints other than HPI. ED EXAM, GI/ABD - Physical Exam Exam: See Below Course - Vital Signs Last Recorded V/S: Last Vital Signs Temp 97.1 F 05/06/17 11:58 Pulse 120 H 05/06/17 14:55 Resp 24 H 05/06/17 14:55 BP 123/48 L 05/06/17 14:55 Pulse Ox 98 05/06/17 14:55 - Orders/Labs/Meds Labs: Laboratory Tests 05/06/17 05/06/17 05/06/17 Range/Units 11:59 11:59 12:16 WBC 9.56 (4.0-11.0) K/uL RBC 4.17 L (4.30-5.90) M/uL Hgb 12.6 (12.0-16.0) g/dL Hct 38.9 (36.0-46.0) % MCV 93.3 (80.0-98.0) fL MCH 30.2 (27.0-32.0) pg MCHC 32.4 (31.0-37.0) g/dL RDW Std Deviation 48.6 (28.0-62.0) fl RDW Coeff of Zak 14 (11.0-15.0) % Plt Count 423 H (150-400) K/uL MPV 10.00 (7.40-12.00) fL Neut % (Auto) 76.9 (48.0-80.0) % Lymph % (Auto) 20.3 (16.0-40.0) % [place] % (Auto) 2.1 (0.0-15.0) % Eos % (Auto) 0.1 (0.0-7.0) % Baso % (Auto) 0.6 (0.0-1.5) % Neut # (Auto) 7.4 H (1.4-5.7) K/uL Lymph # (Auto) 1.9 (0.6-2.4) K/uL [place] # (Auto) 0.2 (0.0-0.8) K/uL Eos # (Auto) 0.0 (0.0-0.7) K/uL Baso # (Auto) 0.1 (0.0-0.1) K/uL Nucleated RBC % 0.0 /100WBC Nucleated RBCs # 0 K/uL Sodium (136-146) mmol/L Potassium (3.5-5.1) mmol/L Chloride (98-110) mmol/L Carbon Dioxide (21-31) mmol/L BUN (6.0-23.0) mg/dL Creatinine (0.6-1.5) mg/dL Est Cr Clr Drug Dosing mL/min Estimated GFR (MDRD) ml/min Glucose (60-110) mg/dL POC Glucose (60-110) mg/dL Calcium (8.8-10.8) mg/dL Total Bilirubin (0.1-1.5) mg/dL AST (5-40) IU/L ALT (8-54) IU/L Alkaline Phosphatase (40-150) Total Protein (6.0-8.0) g/dL Albumin (3.5-5.0) g/dL Globulin (2.0-3.5) g/dL Albumin/Globulin Ratio (1.3-2.8) Amylase (10-90) U/L Lipase (7-80) U/L Urine Color YELLOW Urine Appearance CLEAR Urine pH 5.5 (5.0-8.0) Ur Specific [place] 1.015 (1.001-1.035) Urine Protein NEGATIVE (NEGATIVE) mg/dL Urine Glucose (UA) >=1000 (NEGATIVE) mg/dL Urine Ketones >=80 (NEGATIVE) mg/dL Urine Occult Blood TRACE-INTACT (NEGATIVE) Urine Nitrite NEGATIVE (NEGATIVE) Urine Bilirubin NEGATIVE (NEGATIVE) Urine Urobilinogen 0.2 (<2.0) EU/dL Ur Leukocyte Esterase NEGATIVE (NEGATIVE) Urine RBC 2-4 (0-2/HPF) Urine WBC 0-3 (0-5/HPF) Ur Epithelial Cells MODERATE (NONE-FEW) Urine Bacteria FEW (NEGATIVE) Urine Yeast FEW Urine HCG, Qual NEGATIVE (NEGATIVE) Ketones (NEG) 05/06/17 05/06/17 05/06/17 Range/Units 12:16 12:16 12:26 WBC (4.0-11.0) K/uL RBC (4.30-5.90) M/uL Hgb (12.0-16.0) g/dL Hct (36.0-46.0) % MCV (80.0-98.0) fL MCH (27.0-32.0) pg MCHC (31.0-37.0) g/dL RDW Std Deviation (28.0-62.0) fl RDW Coeff of Zak (11.0-15.0) % Plt Count (150-400) K/uL MPV (7.40-12.00) fL Neut % (Auto) (48.0-80.0) % Lymph % (Auto) (16.0-40.0) % [place] % (Auto) (0.0-15.0) % Eos % (Auto) (0.0-7.0) % Baso % (Auto) (0.0-1.5) % Neut # (Auto) (1.4-5.7) K/uL Lymph # (Auto) (0.6-2.4) K/uL [place] # (Auto) (0.0-0.8) K/uL Eos # (Auto) (0.0-0.7) K/uL Baso # (Auto) (0.0-0.1) K/uL Nucleated RBC % /100WBC Nucleated RBCs # K/uL Sodium 140 (136-146) mmol/L Potassium 3.7 (3.5-5.1) mmol/L Chloride 105 (98-110) mmol/L Carbon Dioxide 9 L (21-31) mmol/L BUN 16 (6.0-23.0) mg/dL Creatinine 1.1 (0.6-1.5) mg/dL Est Cr Clr Drug Dosing 55.01 mL/min Estimated GFR (MDRD) 59.6 ml/min Glucose 216 H (60-110) mg/dL POC Glucose 282 H (60-110) mg/dL Calcium 10.6 (8.8-10.8) mg/dL Total Bilirubin 0.6 (0.1-1.5) mg/dL AST 42 H (5-40) IU/L ALT 61 H (8-54) IU/L Alkaline Phosphatase 290 H (40-150) Total Protein 8.7 H (6.0-8.0) g/dL Albumin 4.9 (3.5-5.0) g/dL Globulin 3.8 H (2.0-3.5) g/dL Albumin/Globulin Ratio 1.3 (1.3-2.8) Amylase 44 (10-90) U/L Lipase 14 (7-80) U/L Urine Color Urine Appearance Urine pH (5.0-8.0) Ur Specific [place] (1.001-1.035) Urine Protein (NEGATIVE) mg/dL Urine Glucose (UA) (NEGATIVE) mg/dL Urine Ketones (NEGATIVE) mg/dL Urine Occult Blood (NEGATIVE) Urine Nitrite (NEGATIVE) Urine Bilirubin (NEGATIVE) Urine Urobilinogen (<2.0) EU/dL Ur Leukocyte Esterase (NEGATIVE) Urine RBC (0-2/HPF) Urine WBC (0-5/HPF) Ur Epithelial Cells (NONE-FEW) Urine Bacteria (NEGATIVE) Urine Yeast Urine HCG, Qual (NEGATIVE) Ketones NEGATIVE (NEG) Meds: Medications Discontinued Medications Generic Name Dose Route Start Last Admin Trade Name Freq PRN Reason Stop Dose Admin Diphenhydramine HCl 25 mg 05/06/17 14:25 05/06/17 14:29 Benadryl IVPUSH 05/06/17 14:26 25 mg ONETIME ONE Administration Sodium Chloride 1,000 mls @ 500 mls/hr 05/06/17 12:06 05/06/17 13:44 Normal Saline IV 05/06/17 14:05 500 mls/hr STAT ONE Administration Lidocaine HCl 20 ml 05/06/17 13:23 05/06/17 13:44 Xylocaine 1% INJECT 05/06/17 13:24 20 ml ONETIME ONE Administration Lidocaine HCl Confirm 05/06/17 13:21 05/06/17 13:41 Xylocaine 1% Administered 05/06/17 13:22 Not Given Dose 20 ml .ROUTE .STK-MED ONE Ondansetron HCl 4 mg 05/06/17 12:06 05/06/17 12:18 Zofran Odt PO 05/06/17 12:07 4 mg ONETIME ONE Administration Ondansetron HCl 8 mg 05/06/17 13:55 05/06/17 14:04 Zofran IVPUSH 05/06/17 13:56 8 mg ONETIME ONE Administration Promethazine HCl 25 mg 05/06/17 14:24 05/06/17 14:29 Phenergan IM 05/06/17 14:25 25 mg ONETIME ONE Administration Departure - Departure Time of Disposition: 14:35 Disposition: Home, Self-Care 01 Condition: Good Clinical Impression: Vomiting - Discharge Information Instructions: Nausea and Vomiting, Adult Referrals: Maynor Black MD [Primary Care Provider] - Forms: ED Department Discharge Additional Instructions: The following information is given to patients seen in the emergency department who are being discharged to home. This information is to outline your options for follow-up care. We provide all patients seen in our emergency department with a follow-up referral. The need for follow-up, as well as the timing and circumstances, are variable depending upon the specifics of your emergency department visit. If you don't have a primary care physician on staff, we will provide you with a referral. We always advise you to contact your personal physician following an emergency department visit to inform them of the circumstance of the visit and for follow-up with them and/or the need for any referrals to a consulting specialist. The emergency department will also refer you to a specialist when appropriate. This referral assures that you have the opportunity for follow-up care with a specialist. All of these measure are taken in an effort to provide you with optimal care, which includes your follow-up. Under all circumstances we always encourage you to contact your private physician who remains a resource for coordinating your care. When calling for follow-up care, please make the office aware that this follow-up is from your recent emergency room visit. If for any reason you are refused follow-up, please contact the emergency department at and asked to speak to the emergency department charge nurse. Primary Care [address] [place] [id number] Follow-up with Dr. Black in the clinic listed above in the next 2-3 days. Take medications that you have at home. Push fluids. Return to ER as needed as discussed.
[2017-05-06] MEDS ORDERED: Ondansetron 4 MG Tab.DIS PO ONE (12:06)
[2017-05-06] MEDS ORDERED: Sodium Chloride 0.9% 1,000 ML IV ONE (12:06)
[2017-05-06] MEDS ORDERED: Lidocaine 1% 20 ML MDV ONE (13:21)
[2017-05-06] MEDS ORDERED: Lidocaine 1% 20 ML MDV INJECT ONE (13:23)
--- NOTE | 2017-05-06 13:54 | PCM.SN ---
- Free Text/Narrative Note: asked to start IV line for fluid administration. Pt relates she is a difficult IV start and usually ends up with an EJ. Ultrasound view of Lt antecubital superficial vein. 1% lido SQ #22 gauge IV easily inserted. flushed x 3 with normal saline and has good blood aspiration. sterile/clean technique. no complaints noted.
[2017-05-06] MEDS ORDERED: Ondansetron 4 MG/2 ML SDV IVPUSH ONE (13:55)
[2017-05-06] MEDS ORDERED: Promethazine 25 MG/ML SDV IM ONE (14:24)
[2017-05-06] MEDS ORDERED: diphenhydrAMINE 50 MG/ML SDV IVPUSH ONE (14:25)
[2017-05-06 14:56] VITALS: BP 123/48
== END 2017-05-06 14:54 | disposition home or self-care (01) ==
LOC: MW.ED 10:50
DX: R11.2 Nausea with vomiting, unspecified (principal); E10.9 Type 1 diabetes mellitus without complications; Z88.6 Allergy status to analgesic agent; Z88.5 Allergy status to narcotic agent; Z79.4 Long term (current) use of insulin; Z79.899 Other long term (current) drug therapy; Z88.1 Allergy status to other antibiotic agents
CPT/HCPCS: 36415; 80053; 81001; 81025; 82009; 82150; 82962; 83690; 85025; 96361; 96372; 96374; 96375; 99284; A9270; J1200; J2405; J2550; J7040; 36410; 99282

== ENCOUNTER 2017-05-07 17:18 | Emergency (ER) | payer MEDICAID ==
--- NOTE | 2017-05-07 17:37 | EDM.PDOC ---
ED HPI GENERAL MEDICAL PROBLEM - General Chief Complaint: General Stated Complaint: PT VOMITING Time Seen by Provider: 05/07/17 17:31 Source of Information: Reports: Patient History Limitations: Reports: No Limitations - History of Present Illness INITIAL COMMENTS - FREE TEXT/NARRATIVE: HISTORY AND PHYSICAL: History of present illness: Patient is a 26-year-old female who presents to the emergency room with complaints of vomiting and weakness. When asked if she has any other complaints or concerns at today's visit she remained silent. Slow to verbally respond, unsure if this is due to blood sugar or by choice. She is a well-known patient to the emergency room with a long-standing history of insulin-dependent diabetes and GI problems. She was recently hospitalized in [place] under the care of numerous specialist. Had a Port-A-Cath removed approximately 2 weeks ago due to dehiscent. Patient was seen in the emergency room last night, 05/06/2017, and a full workup was done at that time. Her sugars yesterday were in the 280's range. She received IV fluids and was discharged to home. Dr. Black was made aware at that time of her arrival to the ED. Patient's complaint yesterday was that she ran out of her Morphine ER and had requested for additional refill per Dr. Black, this was not refilled. Review of systems: As per history of present illness and below otherwise all systems reviewed and negative. Past medical history: As per history of present illness and as reviewed below otherwise noncontributory. Surgical history: As per history of present illness and as reviewed below otherwise noncontributory. Social history: No reported history of drug or alcohol abuse. Family history: As per history of present illness and as reviewed below otherwise noncontributory. Physical exam: Gen.: Mildly-ill appearing, malnurtished 26 year old female. Alert and oriented. HEENT: Atraumatic, normocephalic, pupils reactive, negative for conjunctival pallor or scleral icterus. Excessively dry oral mucosa and lips, throat clear, neck supple, nontender, trachea midline. Lungs: Clear to auscultation, breath sounds equal bilaterally, chest nontender. Heart: Tachycardia, S1S2, regular rate and rhythm Abdomen: Soft, nondistended, nontender. Negative for masses. Negative for costovertebral tenderness. Pelvis: Stable nontender. Genitourinary: Deferred. Rectal: Deferred. Extremities: Atraumatic, moves all cavities per self, able to ambulate without assistance, neurovascular unremarkable. Neuro: Awake, alert, oriented. Cranial nerves II through XII unremarkable. Cerebellum unremarkable. Motor and sensory unremarkable throughout. Exam nonfocal. 1844- blood sugar is 527 at this time. 10 units of regular insulin ordered subcutaneous along with an insulin drip per protocol. 1899- Triple lumen femoral line was placed by Dr. Ann. IV antibiotics were ordered at this time. Annion gap of 26, WBC 41, Lactic acid 8.8. Transfer being initiated at this time. 1919- Discussed this case with Dr Vázquez at [facility]. He requested that I also discussed with Dr. Fajardo, and ICU. Both these physicians accepted the patient for direct admission to ICU. Patient will be transferred via [facility] services. 1939- , HR 116, R 22. Waiting for transfer crew. Nursing staff at bedside. 2009- Blood sugar currently 328. No changes in vital signs. Diagnostics: CBC, CMP, UA, lactic acid, with cultures 2, serum ketones, ABG, chest x-ray Therapeutics: IV fluid, Zofran, 10u regular insulin subcutaneous, insulin drip per protocol Rocephin, Levaquin, vancomycin Impression: DKA Sepsis Plan: Transfer to [facility], direct admit under Dr. Mayberry Definitive disposition and diagnosis as appropriate pending reevaluation and review of above. Onset: Today Duration: Hour(s):, Chronic - Related Data Allergies Allergy/AdvReac Type Severity Reaction Status Date / Time acetaminophen [From Tylenol] Allergy Liver Verified 05/06/17 11:28 Problems amoxicillin Allergy Hives Verified 05/06/17 11:28 amoxicillin trihydrate Allergy Hives Verified 05/06/17 11:28 [From Amoxil] ibuprofen Allergy Liver Verified 05/06/17 11:28 Problems ketorolac tromethamine Allergy Hives Verified 05/06/17 11:28 [From Toradol] metoclopramide HCl Allergy Airway Verified 05/06/17 11:28 [From Reglan] Tightness tramadol Allergy Hives Verified 05/06/17 11:28 haldol Allergy Swelling Uncoded 12/26/16 07:06 Home Meds: Home Meds LORazepam [Ativan] 1 mg PO TID PRN 03/24/16 [History] Ondansetron [Ondansetron ODT] 8 mg PO QID PRN 04/19/16 [History] Insulin Aspart [Novolog Flexpen] 16 - 20 unit SUBCUT QIDACANDBED 05/15/16 [ History] Insulin Detemir [Levemir] 7 unit SUBCUT QPM 04/30/17 [History] Past Medical History - Past Health History Medical/Surgical History: Denies Medical/Surgical History HEENT History: Reports: Allergic Rhinitis Other HEENT History: dental abcess Cardiovascular History: Reports: None Respiratory History: Reports: Asthma Gastrointestinal History: Reports: GI Bleed, Hepatitis, PUD, Other (See Below) Other Gastrointestinal History: hx of C-diff, hx of Hepatitis B Genitourinary History: Reports: UTI, Recurrent Other Genitourinary History: current UTI ENCAPSULATOR History: Reports: Other (See Below) Other OB/BYN History: had miscarriage twice Musculoskeletal History: Reports: Back Pain, Chronic Neurological History: Reports: Migraines, Other (See Below) 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 Psychiatric History: Reports: Anxiety, Depression Endocrine/Metabolic History: Reports: Diabetes, Type I Hematologic History: Reports: Anemia, Blood Transfusion(s) Immunologic History: Reports: None Oncologic (Cancer) History: Reports: None Dermatologic History: Reports: Other (See Below) Other Dermatologic History: wound dishiscence causing port removal R upper chest --dehiscence from inadequate diet - Infectious Disease History Infectious Disease History: Reports: C-Difficile, Chicken Pox, Hepatitis B - Past Surgical History Head Surgeries/Procedures: Reports: None HEENT Surgical History: Reports: Tonsillectomy Cardiovascular Surgical History: Reports: None Respiratory Surgical History: Reports: None GI Surgical History: Reports: Appendectomy, Cholecystectomy, ERCP Female Surgical History: Reports: None Endocrine Surgical History: Reports: None Neurological Surgical History: Reports: None Musculoskeletal Surgical History: Reports: None Oncologic Surgical History: Reports: None Dermatological Surgical History: Reports: None - History Comment History Comment: She has had over [address] scans in the last 4 years. Social & Family History - Family History Family Medical History: Noncontributory HEENT: Reports: Impaired Vision Cardiac: Reports: Heart Failure Respiratory: Reports: Asthma GI: Reports: None : Reports: Renal Disease/Insufficiency OBGYN: Reports: Musculoskeletal: Reports: Back pain, Chronic Neurological: Reports: Seizure Psychiatric: Reports: None Endocrine/Metabolic: Reports: Diabetes, Type I Hematologic: Reports: None Immunologic: Reports: None Dermatologic: Reports: None Oncologic: Reports: Breast, Cervix - Tobacco Use Smoking Status *Q: Never Smoker Years of Tobacco use: 4 Packs/Tins Daily: 0.5 Used Tobacco, but Quit: Yes Month Tobacco Last Used: 9 months Second Hand Smoke Exposure: No - Caffeine Use Caffeine Use: Reports: Other - Alcohol Use Days Per Week of Alcohol Use: 0 - Recreational Drug Use Recreational Drug Use: No Drug Use in Last 12 Months: No Recreational Drug Type: Reports: Other (see below) Other Recreational Drug Type: patient verbalized she took oxymorphone prior to admission Recreational Drug Use Frequency: Patient Refuses To Answer - Living Situation & Occupation Living situation: Reports: with Significant Other, with Family, Other Occupation: Unemployed ED ROS GENERAL - Review of Systems Review Of Systems: ROS reveals no pertinent complaints other than HPI. ED EXAM, GENERAL - Physical Exam Exam: See Below (See dictation) Course - Vital Signs Last Recorded V/S: Last Vital Signs Temp 35.9 C 05/07/17 17:32 Pulse 134 H 05/07/17 17:32 Resp 22 H 05/07/17 17:32 BP 117/78 05/07/17 17:32 Pulse Ox 97 05/07/17 17:32 - Orders/Labs/Meds Orders: Active Orders 24 hr Category Date Time Status Blood Glucose Check, Bedside [RC] ONETIME Care 05/07/17 19:17 Active EKG Documentation Completion [RC] STAT Care 05/07/17 18:06 Active Glucose [Blood Glucose Check, Bedside] [RC] ONETIME Care 05/07/17 18:07 Active Insert Urinary Catheter [OM.PC] Q24H Care 05/07/17 19:30 Ordered Urinary Catheter Assessment [RC] ASDIRECTED Care 05/07/17 19:17 Active Chest 1V Frontal [CR] Stat Exams 05/07/17 18:21 Taken CULTURE BLOOD [BC] Stat Lab 05/07/17 18:09 Results CULTURE BLOOD [BC] Stat Lab 05/07/17 18:45 Results UA W/MICROSCOPIC [URIN] Stat Lab 05/07/17 19:35 Results Insulin Regular, Human [NovoLIN R] 100 unit Med 05/07/17 20:00 Pending Sodium Chloride 0.9% [Normal Saline] 99 ml IV TITRATE Levofloxacin/Dextrose 5%-Water [Levaquin in D5W 750 MG/ Med 05/07/17 19:19 Active 150 ML] 750 mg Premix Bag 1 bag IV ONETIME Sodium Chloride 0.9% [Normal Saline] 1,000 ml Med 05/07/17 20:13 Active IV STAT Sodium Chloride 0.9% [Normal Saline] 500 ml Med 05/07/17 20:21 Active IV NOW cefTRIAXone [Rocephin] Med 05/07/17 19:30 Active 1,000 mg IVPUSH Q24H Blood Culture x2 Reflex Set [OM.PC] Stat Oth 05/07/17 18:21 Ordered Medication Orders Ceftriaxone Sodium (Rocephin) 1,000 mg IVPUSH Q24H PIPPA Last Admin: 05/07/17 19:42 Dose: Not Given Levofloxacin/Dextrose 750 mg/ (Premix) 150 mls @ 100 mls/hr IV ONETIME ONE Stop: 05/07/17 20:48 Last Admin: 05/07/17 19:44 Dose: 100 mls/hr Insulin Human Regular 100 unit (/ Sodium Chloride) 100 mls @ 0 mls/hr IV TITRATE PIPPA; 0.1 UNIT/KG/HR PRN Reason: Protocol Sodium Chloride (Normal Saline) 1,000 mls @ 250 mls/hr IV STAT ONE Stop: 05/08/17 00:12 Last Admin: 05/07/17 20:23 Dose: 250 mls/hr Sodium Chloride (Normal Saline) 500 mls @ 50 mls/hr IV NOW STA Stop: 05/08/17 06:20 Last Admin: 05/07/17 20:23 Dose: 50 mls/hr Labs: Laboratory Tests 05/07/17 05/07/17 05/07/17 Range/Units 08:09 18:09 18:09 WBC 41.25 H (4.0-11.0) K/uL RBC 4.57 (4.30-5.90) M/uL Hgb 14.1 (12.0-16.0) g/dL Hct 44.6 (36.0-46.0) % MCV 97.6 (80.0-98.0) fL MCH 30.9 (27.0-32.0) pg MCHC 31.6 (31.0-37.0) g/dL RDW Std Deviation 52.9 (28.0-62.0) fl RDW Coeff of Zak 15 (11.0-15.0) % Plt Count 509 H (150-400) K/uL MPV 10.60 (7.40-12.00) fL Add Manual Diff YES Neutrophils % (Manual) 75 (48.0-80.0) % Band Neutrophils % 5 % Lymphocytes % (Manual) 13 L (16.0-40.0) % Monocytes % (Manual) 7 (0.0-15.0) % Nucleated RBC % 0.2 /100WBC Absolute Seg Neuts 30.9 H (1.4-5.7) Band Neutrophils # 2.1 Lymphocytes # (Manual) 5.4 H (0.6-2.4) Monocytes # (Manual) 2.9 H (0.0-0.8) Nucleated RBCs # 0 K/uL ABG pH (7.35-7.45) ABG pCO2 (35-45) mmHG ABG pO2 (75-100) mmHG ABG HCO3 (22-26) mEq/L ABG Total CO2 ABG Base Excess (-2.0-2.0) Lactate 8.8 H (0.20-2.00) mmol/L Sodium (136-146) mmol/L Potassium (3.5-5.1) mmol/L Chloride (98-110) mmol/L Carbon Dioxide (21-31) mmol/L BUN (6.0-23.0) mg/dL Creatinine (0.6-1.5) mg/dL Est Cr Clr Drug Dosing Estimated GFR (MDRD) ml/min Glucose (60-110) mg/dL POC Glucose (60-110) mg/dL Calcium (8.8-10.8) mg/dL Total Bilirubin (0.1-1.5) mg/dL AST (5-40) IU/L ALT (8-54) IU/L Alkaline Phosphatase (40-150) Total Protein (6.0-8.0) g/dL Albumin (3.5-5.0) g/dL Globulin (2.0-3.5) g/dL Albumin/Globulin Ratio (1.3-2.8) Urine Color Urine Appearance Urine pH (5.0-8.0) Ur Specific Lyons (1.001-1.035) Urine Protein (NEGATIVE) mg/dL Urine Glucose (UA) (NEGATIVE) mg/dL Urine Ketones (NEGATIVE) mg/dL Urine Occult Blood (NEGATIVE) Urine Nitrite (NEGATIVE) Urine Bilirubin (NEGATIVE) Urine Urobilinogen (<2.0) EU/dL Ur Leukocyte Esterase (NEGATIVE) Ketones MODERATE H (NEG) 05/07/17 05/07/17 05/07/17 Range/Units 18:09 19:35 19:52 WBC (4.0-11.0) K/uL RBC (4.30-5.90) M/uL Hgb (12.0-16.0) g/dL Hct (36.0-46.0) % MCV (80.0-98.0) fL MCH (27.0-32.0) pg MCHC (31.0-37.0) g/dL RDW Std Deviation (28.0-62.0) fl RDW Coeff of Zak (11.0-15.0) % Plt Count (150-400) K/uL MPV (7.40-12.00) fL Add Manual Diff Neutrophils % (Manual) (48.0-80.0) % Band Neutrophils % % Lymphocytes % (Manual) (16.0-40.0) % Monocytes % (Manual) (0.0-15.0) % Nucleated RBC % /100WBC Absolute Seg Neuts (1.4-5.7) Band Neutrophils # Lymphocytes # (Manual) (0.6-2.4) Monocytes # (Manual) (0.0-0.8) Nucleated RBCs # K/uL ABG pH 7.114 L* (7.35-7.45) ABG pCO2 13 L (35-45) mmHG ABG pO2 110 H (75-100) mmHG ABG HCO3 4 L (22-26) mEq/L ABG Total CO2 4.1 ABG Base Excess -23.1 L (-2.0-2.0) Lactate (0.20-2.00) mmol/L Sodium 144 (136-146) mmol/L Potassium 4.3 (3.5-5.1) mmol/L Chloride 112 H (98-110) mmol/L Carbon Dioxide 6 L (21-31) mmol/L BUN 27 H (6.0-23.0) mg/dL Creatinine 2.5 H (0.6-1.5) mg/dL Est Cr Clr Drug Dosing TNP Estimated GFR (MDRD) 23.1 ml/min Glucose 527 H* (60-110) mg/dL POC Glucose (60-110) mg/dL Calcium 11.8 H (8.8-10.8) mg/dL Total Bilirubin 0.4 (0.1-1.5) mg/dL AST 42 H (5-40) IU/L ALT 61 H (8-54) IU/L Alkaline Phosphatase 342 H (40-150) Total Protein 10.0 H (6.0-8.0) g/dL Albumin 5.5 H (3.5-5.0) g/dL Globulin 4.5 H (2.0-3.5) g/dL Albumin/Globulin Ratio 1.2 L (1.3-2.8) Urine Color YELLOW Urine Appearance CLEAR Urine pH 5.5 (5.0-8.0) Ur Specific Lyons 1.020 (1.001-1.035) Urine Protein 30 (NEGATIVE) mg/dL Urine Glucose (UA) 100 H (NEGATIVE) mg/dL Urine Ketones >=80 (NEGATIVE) mg/dL Urine Occult Blood MODERATE (NEGATIVE) Urine Nitrite NEGATIVE (NEGATIVE) Urine Bilirubin SMALL H (NEGATIVE) Urine Urobilinogen 0.2 (<2.0) EU/dL Ur Leukocyte Esterase NEGATIVE (NEGATIVE) Ketones (NEG) 05/07/17 Range/Units 21:12 WBC (4.0-11.0) K/uL RBC (4.30-5.90) M/uL Hgb (12.0-16.0) g/dL Hct (36.0-46.0) % MCV (80.0-98.0) fL MCH (27.0-32.0) pg MCHC (31.0-37.0) g/dL RDW Std Deviation (28.0-62.0) fl RDW Coeff of Zak (11.0-15.0) % Plt Count (150-400) K/uL MPV (7.40-12.00) fL Add Manual Diff Neutrophils % (Manual) (48.0-80.0) % Band Neutrophils % % Lymphocytes % (Manual) (16.0-40.0) % Monocytes % (Manual) (0.0-15.0) % Nucleated RBC % /100WBC Absolute Seg Neuts (1.4-5.7) Band Neutrophils # Lymphocytes # (Manual) (0.6-2.4) Monocytes # (Manual) (0.0-0.8) Nucleated RBCs # K/uL ABG pH (7.35-7.45) ABG pCO2 (35-45) mmHG ABG pO2 (75-100) mmHG ABG HCO3 (22-26) mEq/L ABG Total CO2 ABG Base Excess (-2.0-2.0) Lactate (0.20-2.00) mmol/L Sodium (136-146) mmol/L Potassium (3.5-5.1) mmol/L Chloride (98-110) mmol/L Carbon Dioxide (21-31) mmol/L BUN (6.0-23.0) mg/dL Creatinine (0.6-1.5) mg/dL Est Cr Clr Drug Dosing Estimated GFR (MDRD) ml/min Glucose (60-110) mg/dL POC Glucose 328 H (60-110) mg/dL Calcium (8.8-10.8) mg/dL Total Bilirubin (0.1-1.5) mg/dL AST (5-40) IU/L ALT (8-54) IU/L Alkaline Phosphatase (40-150) Total Protein (6.0-8.0) g/dL Albumin (3.5-5.0) g/dL Globulin (2.0-3.5) g/dL Albumin/Globulin Ratio (1.3-2.8) Urine Color Urine Appearance Urine pH (5.0-8.0) Ur Specific Lyons (1.001-1.035) Urine Protein (NEGATIVE) mg/dL Urine Glucose (UA) (NEGATIVE) mg/dL Urine Ketones (NEGATIVE) mg/dL Urine Occult Blood (NEGATIVE) Urine Nitrite (NEGATIVE) Urine Bilirubin (NEGATIVE) Urine Urobilinogen (<2.0) EU/dL Ur Leukocyte Esterase (NEGATIVE) Ketones (NEG) Meds: Medications Generic Name Dose Route Start Last Admin Trade Name Freq PRN Reason Stop Dose Admin Ceftriaxone Sodium 1,000 mg 05/07/17 19:30 05/07/17 19:42 Rocephin IVPUSH Not Given Q24H PIPPA Levofloxacin/Dextrose 750 mg/ 150 mls @ 100 mls/hr 05/07/17 19:19 05/07/17 19 :44 Premix IV 05/07/17 20:48 100 mls/hr ONETIME ONE Administration Insulin Human Regular 100 unit 100 mls @ 0 mls/hr 05/07/17 20:00 / Sodium Chloride IV TITRATE PIPPA Protocol 0.1 UNIT/KG/HR Sodium Chloride 1,000 mls @ 250 mls/hr 05/07/17 20:13 05/07/17 20:23 Normal Saline IV 05/08/17 00:12 250 mls/hr STAT ONE Administration Sodium Chloride 500 mls @ 50 mls/hr 05/07/17 20:21 05/07/17 20:23 Normal Saline IV 05/08/17 06:20 50 mls/hr NOW STA Administration Discontinued Medications Generic Name Dose Route Start Last Admin Trade Name Marge AQUINON Reason Stop Dose Admin Diphenhydramine HCl 25 mg 05/07/17 19:16 05/07/17 19:41 Benadryl IVPUSH 05/07/17 19:17 25 mg ONETIME ONE Administration Sodium Chloride 1,000 mls @ 999 mls/hr 05/07/17 17:45 05/07/17 18:48 Normal Saline IV 05/07/17 18:45 150 mls/hr STAT ONE Administration Ceftazidime 2 gm/ Dextrose/ 100 mls @ 200 mls/hr 05/07/17 19:15 05/07/17 19: 43 Water IV 05/07/17 19:44 Not Given NOW STA Sodium Chloride 1,000 mls @ 999 mls/hr 05/07/17 19:15 05/07/17 19:41 Normal Saline IV 05/07/17 20:15 999 mls/hr STAT ONE Administration Vancomycin HCl 1 gm/ Sodium 250 mls @ 250 mls/hr 05/07/17 19:15 05/07/17 19: 43 Chloride IV 05/07/17 20:14 250 mls/hr ONETIME ONE Administration Ceftriaxone Sodium/Dextrose 1 50 mls @ 100 mls/hr 05/07/17 19:36 11/06/17 19: 45 gm/ Premix IV 05/07/17 20:05 100 mls/hr ONETIME ONE Administration Ceftriaxone Sodium/Dextrose Confirm 05/07/17 19:37 05/07/17 19:43 Rocephin In Dextrose,Iso-Osm 1 Gm/50 Ml Administered 05/07/17 19:38 Not Given Dose 50 mls @ as directed .ROUTE .STK-MED ONE Insulin Human Regular 10 unit 05/07/17 18:42 05/07/17 19:08 Novolin R IVPUSH 05/07/17 18:43 Not Given ONETIME ONE Protocol Insulin Human Regular 10 unit 05/07/17 19:06 05/07/17 19:09 Novolin R SUBCUT 05/07/17 19:07 10 units NOW STA Administration Protocol Ondansetron HCl 4 mg 05/07/17 17:45 05/07/17 18:54 Zofran IVPUSH 05/07/17 17:46 4 mg ONETIME ONE Administration Vancomycin HCl Confirm 05/07/17 19:16 05/07/17 19:43 Vancocin Administered 05/07/17 19:17 Not Given Dose 1 gm .ROUTE .STK-MED ONE Departure - Departure Time of Disposition: 20:26 Disposition: DC/Tfer to Other 70 Clinical Impression: DKA (diabetic ketoacidoses) Qualifiers: Diabetes mellitus type: type 1 Diabetes mellitus complication detail: without coma Qualified Code(s): E10.10 - Type 1 diabetes mellitus with ketoacidosis without coma - Discharge Information Referrals: PCP,None [Primary Care Provider] - Forms: ED Department Discharge - My Orders Last 24 Hours: My Active Orders 05/07/17 18:06 EKG Documentation Completion [RC] STAT 05/07/17 18:07 Glucose [Blood Glucose Check, Bedside] [RC] ONETIME 05/07/17 18:09 CULTURE BLOOD [BC] Stat 05/07/17 18:21 Chest 1V Frontal [CR] Stat Blood Culture x2 Reflex Set [OM.PC] Stat 05/07/17 18:45 CULTURE BLOOD [BC] Stat 05/07/17 19:17 Blood Glucose Check, Bedside [RC] ONETIME Urinary Catheter Assessment [RC] ASDIRECTED 05/07/17 19:19 Levofloxacin/Dextrose 5%-Water [Levaquin in D5W 750 MG/150 ML] 750 mg Premix Bag 1 bag IV ONETIME 05/07/17 19:30 Insert Urinary Catheter [OM.PC] Q24H cefTRIAXone [Rocephin] 1,000 mg IVPUSH Q24H 05/07/17 19:35 UA W/MICROSCOPIC [URIN] Stat 05/07/17 20:00 Insulin Regular, Human [NovoLIN R] 100 unit Sodium Chloride 0.9% [Normal Saline] 99 ml IV TITRATE 05/07/17 20:13 Sodium Chloride 0.9% [Normal Saline] 1,000 ml IV STAT 05/07/17 20:21 Sodium Chloride 0.9% [Normal Saline] 500 ml IV NOW - Assessment/Plan Last 24 Hours: My Active Orders 05/07/17 18:06 EKG Documentation Completion [RC] STAT 05/07/17 18:07 Glucose [Blood Glucose Check, Bedside] [RC] ONETIME 05/07/17 18:09 CULTURE BLOOD [BC] Stat 05/07/17 18:21 Chest 1V Frontal [CR] Stat Blood Culture x2 Reflex Set [OM.PC] Stat 05/07/17 18:45 CULTURE BLOOD [BC] Stat 05/07/17 19:17 Blood Glucose Check, Bedside [RC] ONETIME Urinary Catheter Assessment [RC] ASDIRECTED 05/07/17 19:19 Levofloxacin/Dextrose 5%-Water [Levaquin in D5W 750 MG/150 ML] 750 mg Premix Bag 1 bag IV ONETIME 05/07/17 19:30 Insert Urinary Catheter [OM.PC] Q24H cefTRIAXone [Rocephin] 1,000 mg IVPUSH Q24H 05/07/17 19:35 UA W/MICROSCOPIC [URIN] Stat 05/07/17 20:00 Insulin Regular, Human [NovoLIN R] 100 unit Sodium Chloride 0.9% [Normal Saline] 99 ml IV TITRATE 05/07/17 20:13 Sodium Chloride 0.9% [Normal Saline] 1,000 ml IV STAT 05/07/17 20:21 Sodium Chloride 0.9% [Normal Saline] 500 ml IV NOW
[2017-05-07] MEDS ORDERED: Ondansetron 4 MG/2 ML SDV IVPUSH ONE (17:45)
[2017-05-07] MEDS ORDERED: Sodium Chloride 0.9% 1,000 ML IV ONE ×3 (17:45→20:13)
[2017-05-07 18:39] LABS: CHLORIDE,CL 112 mmol/L (98-110); SODIUM,NA 144 mmol/L (136-146)
[2017-05-07] MEDS ORDERED: Insulin Regular, Human 100 Units/ML 10 ML Vial SUBCUT STA (19:06)
[2017-05-07] MEDS: Insulin Regular, Human 100 Units/ML 10 ML Vial IVPUSH ONE ×2 (19:07→19:08)
[2017-05-07] MEDS ORDERED: CEFTAZIDIME IV STA ×2 (19:15)
[2017-05-07] MEDS ORDERED: WATER IV STA ×2 (19:15)
[2017-05-07] MEDS ORDERED: DEXTROSE 5% IV STA ×2 (19:15)
[2017-05-07] MEDS ORDERED: Vancomycin 1 GM AdvVial ONE (19:16)
[2017-05-07] MEDS ORDERED: diphenhydrAMINE 50 MG/ML SDV IVPUSH ONE (19:16)
[2017-05-07] MEDS ORDERED: Levofloxacin/Dextrose 5%-Water 750 MG in Premix Bag 1 BAG IV ONE (19:19)
[2017-05-07] MEDS ORDERED: cefTRIAXone 1,000 MG VIAL IVPUSH SCH (19:30)
[2017-05-07] MEDS ORDERED: cefTRIAXone 1 GM in Premix Bag 1 BAG IV ONE (19:36)
[2017-05-07 19:41] VITALS: BP 117/78
[2017-05-07] MEDS ORDERED: Sodium Chloride 0.9% 500 ML IV STA (20:21)
--- NOTE | 2017-05-08 10:42 | CR ---
EXAM DATE: 05/07/17 PATIENT'S AGE: 26 Patient: ALEXSANDER DUMONT Facility: [place], [place] Site . Site : 1990 Study: XRay Chest [id number]/6/2017 7:51:40 PM Ordering Physician: Doctor Ang Final Report: INDICATION: Low WBC CHEST, ONE VIEW An AP radiograph of the chest was performed. Comparison: No previous studies are currently available for comparison. The lungs appear clear and no pleural effusions are identified. The cardiomediastinal silhouette and pulmonary vasculature appear normal, as do the visualized bones. IMPRESSION: No acute intrathoracic abnormality identified. DIMITRIS BALL MD [facility] Dictated by: Gregorio Ball MD @ 05/07/2017 20:09:59 (Electronic Signature) Report Signed by Proxy. [facility]
== END 2017-05-07 20:49 | disposition other institution (70) ==
LOC: MW.ED 17:18
DX: A41.9 Sepsis, unspecified organism (principal); E10.10 Type 1 diabetes mellitus with ketoacidosis without coma; Z79.4 Long term (current) use of insulin; Z88.1 Allergy status to other antibiotic agents; Z88.8 Allergy status to other drugs, medicaments and biological substances
CPT/HCPCS: 36415; 36600; 71010; 80053; 81001; 82009; 82803; 82962; 83605; 85025; 87040; 93005; 96361; 96365; 96367; 96368; 96372; 96374; 96375; 99291; 99292; J0696; J1200; J1815; J1956; J2405; J3370; J7030; J7040; J7050; 99282

== ENCOUNTER 2017-05-28 17:55 | Emergency (ER) | payer MEDICAID ==
[2017-05-28] MEDS ORDERED: Sodium Chloride 0.9% 1,000 ML IV ONE ×2 (18:24→19:55)
[2017-05-28] MEDS ORDERED: Sodium Chloride 0.9% 2.5 ML Syringe FLUSH PRN (18:24)
[2017-05-28] MEDS ORDERED: Ondansetron 4 MG Tab.DIS PO ONE (18:24)
[2017-05-28] MEDS ORDERED: Sodium Chloride 0.9% 10 ML Syringe FLUSH PRN (18:24)
[2017-05-28] MEDS ORDERED: diphenhydrAMINE 50 MG/ML SDV IVPUSH ONE (18:26)
[2017-05-28 19:00] LABS: CHLORIDE,CL 101 mmol/L (98-110); SODIUM,NA 133 mmol/L (136-146)
[2017-05-28] MEDS ORDERED: Insulin Regular, Human 100 Units/ML 10 ML Vial IVPUSH ONE ×2 (19:27→20:31)
--- NOTE | 2017-05-28 19:47 | EDM.PDOC ---
ED HPI GENERAL MEDICAL PROBLEM - General Chief Complaint: Abdominal Pain Stated Complaint: ABDOMINAL PAIN AND VOMITING Time Seen by Provider: 05/28/17 18:16 Source of Information: Reports: Patient History Limitations: Reports: No Limitations - History of Present Illness INITIAL COMMENTS - FREE TEXT/NARRATIVE: HISTORY AND PHYSICAL: []26-year-old female presenting abdominal pain nausea vomiting Admission states that she thinks she had a diabetic seizure earlier today History of Present Illness: []Patient is well-known to the emergency department she has strong history of diabetic gastroparesis Review of Systems: As per history of present illness and below otherwise all systems reviewed and negative. Past medical history: As per history of present illness and as reviewed below otherwise noncontributory. Surgical history: As per history of present illness and as reviewed below otherwise noncontributory. Social history: No reported history of drug or alcohol abuse. Family history: As per history of present illness and as reviewed below otherwise noncontributory. Physical exam: Alert female who is crying, tears are present on her face, skin is pale warm dry. Poor affect. Poor eye contact. HEENT: Atraumatic, normocehpalic, pupils reactive, negative for conjunctival pallor or scleral icterus, mucous membranes moist, throat clear, neck supple, nontender, trachea midline. Lungs: Clear to auscultation, breath sounds equal bilaterally, chest non tender. Heart: S1S2, regular, negative for clicks, rubs, or JVD. Abdomen: Soft, nondistended, tender. Negative for masses or hepatossplenmegaly. Negative for costovertebral tenderness. Pelvis: Stable nontender. Genitourinary: Deferred. Rectal: Deferred Extremities: Atraumatic, negative for cords or calf pain. Neurovascular unremarkable. Neuro: Awake, alert, oriented. Cranial nerves II through XII unremarkable. Cerebellum unremarkable. Motor and sensory unremarkable throughout. Exam nonfocal. Diagnostics: [CBC CMP UA hCG urine culture] Therapeutics: [IV fluid Insulin] Impression: [abdominal pain Plan: []Discharge to home [place] with your primary care tomorrow Definitive disposition and diagnosis as appropriate pending reevaluation and review of above. Onset: Today, Sudden Location: Reports: Abdomen Quality: Reports: Same as Previous Episode Severity: Moderate Bilateral Lower Back Pain Score (Numeric/FACES): 10 - Related Data Allergies Allergy/AdvReac Type Severity Reaction Status Date / Time acetaminophen [From Tylenol] Allergy Liver Verified 05/28/17 18:07 Problems amoxicillin Allergy Hives Verified 05/28/17 18:07 amoxicillin trihydrate Allergy Hives Verified 05/28/17 18:07 [From Amoxil] ibuprofen Allergy Liver Verified 05/28/17 18:07 Problems ketorolac tromethamine Allergy Hives Verified 05/28/17 18:07 [From Toradol] metoclopramide HCl Allergy Airway Verified 05/28/17 18:07 [From Reglan] Tightness tramadol Allergy Hives Verified 05/28/17 18:07 haldol Allergy Swelling Uncoded 05/28/17 18:07 Home Meds: Home Meds LORazepam [Ativan] 1 mg PO TID PRN 03/24/16 [History] Ondansetron [Ondansetron ODT] 8 mg PO QID PRN 04/19/16 [History] Insulin Aspart [Novolog Flexpen] 16 - 20 unit SUBCUT QIDACANDBED 05/15/16 [ History] Insulin Detemir [Levemir] 7 unit SUBCUT QPM 04/30/17 [History] Past Medical History - Past Health History Medical/Surgical History: Denies Medical/Surgical History HEENT History: Reports: Allergic Rhinitis Other HEENT History: dental abcess Cardiovascular History: Reports: None Respiratory History: Reports: Asthma Gastrointestinal History: Reports: GI Bleed, Hepatitis, PUD, Other (See Below) Other Gastrointestinal History: hx of C-diff, hx of Hepatitis B Genitourinary History: Reports: UTI, Recurrent Other Genitourinary History: current UTI [employer] History: Reports: Other (See Below) Other OB/BYN History: had miscarriage twice Musculoskeletal History: Reports: Back Pain, Chronic Neurological History: Reports: Migraines, Other (See Below) 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 Psychiatric History: Reports: Anxiety, Depression Endocrine/Metabolic History: Reports: Diabetes, Type I Hematologic History: Reports: Anemia, Blood Transfusion(s) Immunologic History: Reports: None Oncologic (Cancer) History: Reports: None Dermatologic History: Reports: Other (See Below) Other Dermatologic History: wound dishiscence causing port removal R upper chest --dehiscence from inadequate diet - Infectious Disease History Infectious Disease History: Reports: C-Difficile, Chicken Pox, Hepatitis B - Past Surgical History Head Surgeries/Procedures: Reports: None HEENT Surgical History: Reports: Tonsillectomy Cardiovascular Surgical History: Reports: None Respiratory Surgical History: Reports: None GI Surgical History: Reports: Appendectomy, Cholecystectomy, ERCP Female Surgical History: Reports: None Endocrine Surgical History: Reports: None Neurological Surgical History: Reports: None Musculoskeletal Surgical History: Reports: None Oncologic Surgical History: Reports: None Dermatological Surgical History: Reports: None - History Comment History Comment: She has had over [address] scans in the last 4 years. Social & Family History - Family History Family Medical History: Noncontributory HEENT: Reports: Impaired Vision Cardiac: Reports: Heart Failure Respiratory: Reports: Asthma GI: Reports: None : Reports: Renal Disease/Insufficiency OBGYN: Reports: Musculoskeletal: Reports: Back pain, Chronic Neurological: Reports: Seizure Psychiatric: Reports: None Endocrine/Metabolic: Reports: Diabetes, Type I Hematologic: Reports: None Immunologic: Reports: None Dermatologic: Reports: None Oncologic: Reports: Breast, Cervix - Tobacco Use Smoking Status *Q: Former Smoker Years of Tobacco use: 4 Packs/Tins Daily: 0.5 Used Tobacco, but Quit: Yes Month Tobacco Last Used: 08/2016 Second Hand Smoke Exposure: No - Caffeine Use Caffeine Use: Reports: None - Alcohol Use Days Per Week of Alcohol Use: 0 - Recreational Drug Use Recreational Drug Use: No Drug Use in Last 12 Months: No Recreational Drug Type: Reports: Other (see below) Other Recreational Drug Type: patient verbalized she took oxymorphone prior to admission Recreational Drug Use Frequency: Patient Refuses To Answer - Living Situation & Occupation Living situation: Reports: with Significant Other, with Family, Other Occupation: Unemployed ED ROS GENERAL - Review of Systems Review Of Systems: ROS reveals no pertinent complaints other than HPI. ED EXAM, GI/ABD - Physical Exam Exam: See Below (See dictation) Course - Vital Signs Last Recorded V/S: Last Vital Signs Temp 36.9 C 05/28/17 18:04 Pulse 113 H 05/28/17 18:04 Resp 18 05/28/17 18:04 BP 119/82 05/28/17 18:04 Pulse Ox 96 05/28/17 18:04 - Orders/Labs/Meds Orders: Active Orders 24 hr Category Date Time Status Blood Glucose Check, Bedside [RC] ONETIME Care 05/28/17 20:15 Active Chest 1V Frontal [CR] Stat Exams 05/28/17 18:24 Taken CULTURE URINE [RM] Stat Lab 05/28/17 18:43 Received Sodium Chloride 0.9% [Normal Saline] 1,000 ml Med 05/28/17 19:55 Active IV STAT Sodium Chloride 0.9% [Saline Flush] Med 05/28/17 18:24 Active 10 ml FLUSH ASDIRECTED PRN Sodium Chloride 0.9% [Saline Flush] Med 05/28/17 18:24 Active 2.5 ml FLUSH ASDIRECTED PRN Saline Lock Insert [OM.PC] Stat Oth 05/28/17 18:23 Ordered Medication Orders Sodium Chloride (Normal Saline) 1,000 mls @ 999 mls/hr IV STAT ONE Stop: 05/28/17 20:55 Last Admin: 05/28/17 19:56 Dose: 999 mls/hr Sodium Chloride (Saline Flush) 10 ml FLUSH ASDIRECTED PRN PRN Reason: Keep Vein Open Last Admin: 05/28/17 18:57 Dose: 10 ml Sodium Chloride (Saline Flush) 2.5 ml FLUSH ASDIRECTED PRN PRN Reason: Keep Vein Open Last Admin: 05/28/17 18:57 Dose: 2.5 ml Labs: Laboratory Tests 05/28/17 05/28/17 05/28/17 Range/Units 16:43 16:43 18:31 WBC 13.50 H (4.0-11.0) K/uL RBC 3.68 L (4.30-5.90) M/uL Hgb 10.6 L (12.0-16.0) g/dL Hct 33.4 L (36.0-46.0) % MCV 90.8 (80.0-98.0) fL MCH 28.8 (27.0-32.0) pg MCHC 31.7 (31.0-37.0) g/dL RDW Std Deviation 49.5 (28.0-62.0) fl RDW Coeff of Zak 15 (11.0-15.0) % Plt Count 374 (150-400) K/uL MPV 10.00 (7.40-12.00) fL Neut % (Auto) 85.9 H (48.0-80.0) % Lymph % (Auto) 9.9 L (16.0-40.0) % Love % (Auto) 3.9 (0.0-15.0) % Eos % (Auto) 0.1 (0.0-7.0) % Baso % (Auto) 0.2 (0.0-1.5) % Neut # (Auto) 11.6 H (1.4-5.7) K/uL Lymph # (Auto) 1.3 (0.6-2.4) K/uL Love # (Auto) 0.5 (0.0-0.8) K/uL Eos # (Auto) 0.0 (0.0-0.7) K/uL Baso # (Auto) 0.0 (0.0-0.1) K/uL Nucleated RBC % 0.0 /100WBC Nucleated RBCs # 0 K/uL Lactate (0.20-2.00) mmol/L Sodium (136-146) mmol/L Potassium (3.5-5.1) mmol/L Chloride (98-110) mmol/L Carbon Dioxide (21-31) mmol/L BUN (6.0-23.0) mg/dL Creatinine (0.6-1.5) mg/dL Est Cr Clr Drug Dosing mL/min Estimated GFR (MDRD) ml/min Glucose (60-110) mg/dL POC Glucose (60-110) mg/dL Calcium (8.8-10.8) mg/dL Total Bilirubin (0.1-1.5) mg/dL AST (5-40) IU/L ALT (8-54) IU/L Alkaline Phosphatase (40-150) Total Protein (6.0-8.0) g/dL Albumin (3.5-5.0) g/dL Globulin (2.0-3.5) g/dL Albumin/Globulin Ratio (1.3-2.8) Amylase (10-90) U/L Lipase (7-80) U/L HCG, Quant mIU/mL Urine Color YELLOW Urine Appearance CLEAR Urine pH 6.0 (5.0-8.0) Ur Specific [place] <= 1.005 (1.001-1.035) Urine Protein NEGATIVE (NEGATIVE) mg/dL Urine Glucose (UA) >=1000 (NEGATIVE) mg/dL Urine Ketones 15 H (NEGATIVE) mg/dL Urine Occult Blood NEGATIVE (NEGATIVE) Urine Nitrite NEGATIVE (NEGATIVE) Urine Bilirubin NEGATIVE (NEGATIVE) Urine Urobilinogen 0.2 (<2.0) EU/dL Ur Leukocyte Esterase NEGATIVE (NEGATIVE) Urine RBC 0-2 (0-2/HPF) Urine WBC 0-1 (0-5/HPF) Ur Epithelial Cells FEW (NONE-FEW) Urine Bacteria RARE (NEGATIVE) Urine Opiates Screen POSITIVE (NEGATIVE) Ur Oxycodone Screen NEGATIVE (NEGATIVE) Urine Methadone Screen NEGATIVE (NEGATIVE) Ur Barbiturates Screen NEGATIVE (NEGATIVE) Ur Phencyclidine Scrn NEGATIVE (NEGATIVE) Ur Amphetamine Screen NEGATIVE (NEGATIVE) U Methamphetamines Scrn NEGATIVE (NEGATIVE) U Benzodiazepines Scrn NEGATIVE (NEGATIVE) U Cocaine Metab Screen NEGATIVE (NEGATIVE) U Marijuana (THC) Screen NEGATIVE (NEGATIVE) 05/28/17 05/28/17 05/28/17 Range/Units 18:31 18:31 19:46 WBC (4.0-11.0) K/uL RBC (4.30-5.90) M/uL Hgb (12.0-16.0) g/dL Hct (36.0-46.0) % MCV (80.0-98.0) fL MCH (27.0-32.0) pg MCHC (31.0-37.0) g/dL RDW Std Deviation (28.0-62.0) fl RDW Coeff of Zak (11.0-15.0) % Plt Count (150-400) K/uL MPV (7.40-12.00) fL Neut % (Auto) (48.0-80.0) % Lymph % (Auto) (16.0-40.0) % Love % (Auto) (0.0-15.0) % Eos % (Auto) (0.0-7.0) % Baso % (Auto) (0.0-1.5) % Neut # (Auto) (1.4-5.7) K/uL Lymph # (Auto) (0.6-2.4) K/uL Love # (Auto) (0.0-0.8) K/uL Eos # (Auto) (0.0-0.7) K/uL Baso # (Auto) (0.0-0.1) K/uL Nucleated RBC % /100WBC Nucleated RBCs # K/uL Lactate 1.0 (0.20-2.00) mmol/L Sodium 133 L (136-146) mmol/L Potassium 4.7 (3.5-5.1) mmol/L Chloride 101 (98-110) mmol/L Carbon Dioxide 18 L (21-31) mmol/L BUN 16 (6.0-23.0) mg/dL Creatinine 0.8 (0.6-1.5) mg/dL Est Cr Clr Drug Dosing 72.61 mL/min Estimated GFR (MDRD) > 60.0 ml/min Glucose 420 H (60-110) mg/dL POC Glucose 343 H (60-110) mg/dL Calcium 10.0 (8.8-10.8) mg/dL Total Bilirubin 0.5 (0.1-1.5) mg/dL AST 74 H (5-40) IU/L ALT 62 H (8-54) IU/L Alkaline Phosphatase 179 H (40-150) Total Protein 7.5 (6.0-8.0) g/dL Albumin 4.5 (3.5-5.0) g/dL Globulin 3.0 (2.0-3.5) g/dL Albumin/Globulin Ratio 1.5 (1.3-2.8) Amylase 89 (10-90) U/L Lipase 14 (7-80) U/L HCG, Quant < 1.2 mIU/mL Urine Color Urine Appearance Urine pH (5.0-8.0) Ur Specific [place] (1.001-1.035) Urine Protein (NEGATIVE) mg/dL Urine Glucose (UA) (NEGATIVE) mg/dL Urine Ketones (NEGATIVE) mg/dL Urine Occult Blood (NEGATIVE) Urine Nitrite (NEGATIVE) Urine Bilirubin (NEGATIVE) Urine Urobilinogen (<2.0) EU/dL Ur Leukocyte Esterase (NEGATIVE) Urine RBC (0-2/HPF) Urine WBC (0-5/HPF) Ur Epithelial Cells (NONE-FEW) Urine Bacteria (NEGATIVE) Urine Opiates Screen (NEGATIVE) Ur Oxycodone Screen (NEGATIVE) Urine Methadone Screen (NEGATIVE) Ur Barbiturates Screen (NEGATIVE) Ur Phencyclidine Scrn (NEGATIVE) Ur Amphetamine Screen (NEGATIVE) U Methamphetamines Scrn (NEGATIVE) U Benzodiazepines Scrn (NEGATIVE) U Cocaine Metab Screen (NEGATIVE) U Marijuana (THC) Screen (NEGATIVE) 05/28/17 Range/Units 20:27 WBC (4.0-11.0) K/uL RBC (4.30-5.90) M/uL Hgb (12.0-16.0) g/dL Hct (36.0-46.0) % MCV (80.0-98.0) fL MCH (27.0-32.0) pg MCHC (31.0-37.0) g/dL RDW Std Deviation (28.0-62.0) fl RDW Coeff of Zak (11.0-15.0) % Plt Count (150-400) K/uL MPV (7.40-12.00) fL Neut % (Auto) (48.0-80.0) % Lymph % (Auto) (16.0-40.0) % Love % (Auto) (0.0-15.0) % Eos % (Auto) (0.0-7.0) % Baso % (Auto) (0.0-1.5) % Neut # (Auto) (1.4-5.7) K/uL Lymph # (Auto) (0.6-2.4) K/uL Love # (Auto) (0.0-0.8) K/uL Eos # (Auto) (0.0-0.7) K/uL Baso # (Auto) (0.0-0.1) K/uL Nucleated RBC % /100WBC Nucleated RBCs # K/uL Lactate (0.20-2.00) mmol/L Sodium (136-146) mmol/L Potassium (3.5-5.1) mmol/L Chloride (98-110) mmol/L Carbon Dioxide (21-31) mmol/L BUN (6.0-23.0) mg/dL Creatinine (0.6-1.5) mg/dL Est Cr Clr Drug Dosing mL/min Estimated GFR (MDRD) ml/min Glucose (60-110) mg/dL POC Glucose 267 H (60-110) mg/dL Calcium (8.8-10.8) mg/dL Total Bilirubin (0.1-1.5) mg/dL AST (5-40) IU/L ALT (8-54) IU/L Alkaline Phosphatase (40-150) Total Protein (6.0-8.0) g/dL Albumin (3.5-5.0) g/dL Globulin (2.0-3.5) g/dL Albumin/Globulin Ratio (1.3-2.8) Amylase (10-90) U/L Lipase (7-80) U/L HCG, Quant mIU/mL Urine Color Urine Appearance Urine pH (5.0-8.0) Ur Specific [place] (1.001-1.035) Urine Protein (NEGATIVE) mg/dL Urine Glucose (UA) (NEGATIVE) mg/dL Urine Ketones (NEGATIVE) mg/dL Urine Occult Blood (NEGATIVE) Urine Nitrite (NEGATIVE) Urine Bilirubin (NEGATIVE) Urine Urobilinogen (<2.0) EU/dL Ur Leukocyte Esterase (NEGATIVE) Urine RBC (0-2/HPF) Urine WBC (0-5/HPF) Ur Epithelial Cells (NONE-FEW) Urine Bacteria (NEGATIVE) Urine Opiates Screen (NEGATIVE) Ur Oxycodone Screen (NEGATIVE) Urine Methadone Screen (NEGATIVE) Ur Barbiturates Screen (NEGATIVE) Ur Phencyclidine Scrn (NEGATIVE) Ur Amphetamine Screen (NEGATIVE) U Methamphetamines Scrn (NEGATIVE) U Benzodiazepines Scrn (NEGATIVE) U Cocaine Metab Screen (NEGATIVE) U Marijuana (THC) Screen (NEGATIVE) Meds: Medications Generic Name Dose Route Start Last Admin Trade Name Freq PRN Reason Stop Dose Admin Sodium Chloride 1,000 mls @ 999 mls/hr 05/28/17 19:55 05/28/17 19:56 Normal Saline IV 05/28/17 20:55 999 mls/hr STAT ONE Administration Sodium Chloride 10 ml 05/28/17 18:24 05/28/17 18:57 Saline Flush FLUSH 10 ml ASDIRECTED PRN Administration Keep Vein Open Sodium Chloride 2.5 ml 05/28/17 18:24 05/28/17 18:57 Saline Flush FLUSH 2.5 ml ASDIRECTED PRN Administration Keep Vein Open Discontinued Medications Generic Name Dose Route Start Last Admin Trade Name Freq PRN Reason Stop Dose Admin Dicyclomine HCl 20 mg 05/28/17 20:13 05/28/17 20:25 Bentyl PO 05/28/17 20:14 20 mg ONETIME ONE Administration Diphenhydramine HCl 25 mg 05/28/17 18:26 05/28/17 18:54 Benadryl IVPUSH 05/28/17 18:27 25 mg ONETIME ONE Administration Sodium Chloride 1,000 mls @ 999 mls/hr 05/28/17 18:24 05/28/17 18:54 Normal Saline IV 05/28/17 19:24 999 mls/hr STAT ONE Administration Insulin Human Regular 10 unit 05/28/17 19:27 05/28/17 19:46 Novolin R IVPUSH 05/28/17 19:28 10 units ONETIME ONE Administration Protocol Insulin Human Regular 3 unit 05/28/17 20:31 05/28/17 20:39 Novolin R IVPUSH 05/28/17 20:32 3 units ONETIME ONE Administration Protocol Ondansetron HCl 4 mg 05/28/17 18:24 05/28/17 18:54 Zofran Odt PO 05/28/17 18:25 4 mg ONETIME ONE Administration Departure - Departure Time of Disposition: 20:54 Disposition: Home, Self-Care 01 Condition: Good Clinical Impression: Abdominal pain - Discharge Information Referrals: PCP,Unknown [Primary Care Provider] - Forms: ED Department Discharge Additional Instructions: The following information is given to patients seen in the emergency department who are being discharged to home. This information is to outline your options for follow-up care. We provide all patients seen in our emergency department with a follow-up referral. The need for follow-up, as well as the timing and circumstances, are variable depending upon the specifics of your emergency department visit. If you don't have a primary care physician on staff, we will provide you with a referral. We always advise you to contact your personal physician following an emergency department visit to inform them of the circumstance of the visit and for follow-up with them and/or the need for any referrals to a consulting specialist. The emergency department will also refer you to a specialist when appropriate. This referral assures that you have the opportunity for followup care with a specialist. All of these measure are taken in an effort to provide you with optimal care, which includes your followup. Under all circumstances we always encourage you to contact your private physician who remains a resource for coordinating your care. When calling for followup care, please make the office aware that this follow-up is from your recent emergency room visit. If for any reason you are refused follow-up, please contact the [facility] emergency department at and asked to speak to the emergency department charge nurse. Your given 2 bags of fluid while in the emergency room Received insulin He received Bentyl And some Pepcid. sugars improved Follow up with your primary care provider tomorrow - My Orders Last 24 Hours: My Active Orders 05/28/17 18:23 Saline Lock Insert [OM.PC] Stat 05/28/17 18:24 Chest 1V Frontal [CR] Stat Sodium Chloride 0.9% [Saline Flush] 10 ml FLUSH ASDIRECTED PRN Sodium Chloride 0.9% [Saline Flush] 2.5 ml FLUSH ASDIRECTED PRN 05/28/17 18:43 CULTURE URINE [RM] Stat 05/28/17 19:55 Sodium Chloride 0.9% [Normal Saline] 1,000 ml IV STAT 05/28/17 20:15 Blood Glucose Check, Bedside [RC] ONETIME - Assessment/Plan Last 24 Hours: My Active Orders 05/28/17 18:23 Saline Lock Insert [OM.PC] Stat 05/28/17 18:24 Chest 1V Frontal [CR] Stat Sodium Chloride 0.9% [Saline Flush] 10 ml FLUSH ASDIRECTED PRN Sodium Chloride 0.9% [Saline Flush] 2.5 ml FLUSH ASDIRECTED PRN 05/28/17 18:43 CULTURE URINE [RM] Stat 05/28/17 19:55 Sodium Chloride 0.9% [Normal Saline] 1,000 ml IV STAT 05/28/17 20:15 Blood Glucose Check, Bedside [RC] ONETIME
[2017-05-28] MEDS ORDERED: Dicyclomine 10 MG Cap PO ONE (20:13)
[2017-05-28 21:20] VITALS: BP 103/63
--- NOTE | 2017-05-29 11:09 | CR ---
EXAM DATE: 05/28/17 PATIENT'S AGE: 26 Patient: ALEXSANDER DUMONT Facility: [place], [place] Site . Site : 1990 Study: XRay Chest [id number] 7:35:38 PM Ordering Physician: Doctor Ang Final Report: HISTORY: Abdomen pain. FINDINGS: AP portable chest radiograph is compared with 07 May 2017. Cardiac silhouette is normal. Pulmonary vasculature is free cephalization. No consolidation or pleural effusion is seen. Surgical clips in the right upper quadrant. No free air under the diaphragm. IMPRESSION: No acute cardiopulmonary disease. Dictated by Kinsey Vizcaino MD @ 05/28/2017 8:08:11 PM Dictated by: Kinsey Vizcaino MD @ 05/28/2017 20:08:17 (Electronic Signature) Report Signed [facility] Proxy. [facility]
== END 2017-05-28 21:10 | disposition home or self-care (01) ==
LOC: MW.ED 17:55
DX: R10.9 Unspecified abdominal pain (principal); E10.43 Type 1 diabetes mellitus with diabetic autonomic (poly)neuropathy; K31.84 Gastroparesis; Z88.1 Allergy status to other antibiotic agents; Z88.5 Allergy status to narcotic agent; Z87.891 Personal history of nicotine dependence
CPT/HCPCS: 36415; 71010; 80053; 80305; 81001; 82150; 82962; 83605; 83690; 84702; 85025; 87086; 96361; 96374; 96375; 96376; 99284; A9270; J1200; J7040; 99282; J1815-GY

== ENCOUNTER 2017-06-01 17:49 | Emergency (ER) | payer MEDICAID ==
[2017-06-01] MEDS ORDERED: Sodium Chloride 0.9% 10 ML Syringe FLUSH PRN (18:34)
[2017-06-01] MEDS ORDERED: Sodium Chloride 0.9% 2.5 ML Syringe FLUSH PRN (18:34)
[2017-06-01] MEDS ORDERED: Sodium Chloride 0.9% 1,000 ML IV ONE (18:36)
--- NOTE | 2017-06-01 18:50 | EDM.PDOC ---
<MidnightDavid Romulo - Last Filed: 06/01/17 20:23> ED HPI GENERAL MEDICAL PROBLEM - General Chief Complaint: General Stated Complaint: VOMITING/DIARRHEA Time Seen by Provider: 06/01/17 18:45 - History of Present Illness INITIAL COMMENTS - FREE TEXT/NARRATIVE: Patient presents as above, patient is well known to me She has been overusing her morphine and has run out early hence she has not had morphine and 24 hours as stated. 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 Lab as below Assessment Mild narcotic withdrawal Medication noncompliance Uncontrolled diabetes Hyperglycemia Plan Liter normal saline bolus 5 units of insulin IV Morphine 2 mg IV Morphine 15 mg tablets 1 by mouth every 12 when necessary #8 no refill Follow-up with primary care in 3-4 days ER referral provided for managing chronic pain - Related Data Allergies Allergy/AdvReac Type Severity Reaction Status Date / Time acetaminophen [From Tylenol] Allergy Liver Verified 05/28/17 18:07 Problems amoxicillin Allergy Hives Verified 05/28/17 18:07 amoxicillin trihydrate Allergy Hives Verified 05/28/17 18:07 [From Amoxil] ibuprofen Allergy Liver Verified 05/28/17 18:07 Problems ketorolac tromethamine Allergy Hives Verified 05/28/17 18:07 [From Toradol] metoclopramide HCl Allergy Airway Verified 05/28/17 18:07 [From Reglan] Tightness tramadol Allergy Hives Verified 05/28/17 18:07 haldol Allergy Swelling Uncoded 05/28/17 18:07 Home Meds: Home Meds LORazepam [Ativan] 1 mg PO TID PRN 03/24/16 [History] Ondansetron [Ondansetron ODT] 8 mg PO QID PRN 04/19/16 [History] Insulin Aspart [Novolog Flexpen] 16 - 20 unit SUBCUT QIDACANDBED 05/15/16 [ History] Insulin Detemir [Levemir] 7 unit SUBCUT QPM 04/30/17 [History] Course - Vital Signs Last Recorded V/S: Last Vital Signs Temp 98 F 06/01/17 20:35 Pulse 118 H 06/01/17 20:35 Resp 17 06/01/17 20:35 BP 108/76 06/01/17 20:35 Pulse Ox 97 06/01/17 20:35 - Orders/Labs/Meds Orders: Active Orders 24 hr Category Date Time Status Saline Lock Insert [OM.PC] Stat Oth 06/01/17 18:34 Ordered Labs: Laboratory Tests 06/01/17 06/01/17 06/01/17 Range/Units 18:48 18:48 18:55 WBC 6.63 (4.0-11.0) K/uL RBC 3.70 L (4.30-5.90) M/uL Hgb 10.4 L (12.0-16.0) g/dL Hct 32.7 L (36.0-46.0) % MCV 88.4 (80.0-98.0) fL MCH 28.1 (27.0-32.0) pg MCHC 31.8 (31.0-37.0) g/dL RDW Std Deviation 48.3 (28.0-62.0) fl RDW Coeff of Zak 15 (11.0-15.0) % Plt Count 370 (150-400) K/uL MPV 9.90 (7.40-12.00) fL Neut % (Auto) 70.1 (48.0-80.0) % Lymph % (Auto) 25.3 (16.0-40.0) % [place] % (Auto) 4.1 (0.0-15.0) % Eos % (Auto) 0.3 (0.0-7.0) % Baso % (Auto) 0.2 (0.0-1.5) % Neut # (Auto) 4.7 (1.4-5.7) K/uL Lymph # (Auto) 1.7 (0.6-2.4) K/uL [place] # (Auto) 0.3 (0.0-0.8) K/uL Eos # (Auto) 0.0 (0.0-0.7) K/uL Baso # (Auto) 0.0 (0.0-0.1) K/uL Nucleated RBC % 0.0 /100WBC Nucleated RBCs # 0 K/uL ABG pH 7.496 H (7.35-7.45) ABG pCO2 31 L (35-45) mmHG ABG pO2 68 L (75-100) mmHG ABG HCO3 24 (22-26) mEq/L ABG Total CO2 21.5 ABG Base Excess 0.8 (-2.0-2.0) Sodium 137 (136-146) mmol/L Potassium 3.7 (3.5-5.1) mmol/L Chloride 96 L (98-110) mmol/L Carbon Dioxide 21 (21-31) mmol/L BUN 11 (6.0-23.0) mg/dL Creatinine 0.8 (0.6-1.5) mg/dL Est Cr Clr Drug Dosing 73.37 mL/min Estimated GFR (MDRD) > 60.0 ml/min Glucose 393 H (60-110) mg/dL Calcium 10.2 (8.8-10.8) mg/dL Total Bilirubin 0.4 (0.1-1.5) mg/dL AST 16 (5-40) IU/L ALT 26 (8-54) IU/L Alkaline Phosphatase 167 H (40-150) Total Protein 8.0 (6.0-8.0) g/dL Albumin 4.4 (3.5-5.0) g/dL Globulin 3.6 H (2.0-3.5) g/dL Albumin/Globulin Ratio 1.2 L (1.3-2.8) Meds: Medications Discontinued Medications Generic Name Dose Route Start Last Admin Trade Name Freq PRN Reason Stop Dose Admin Sodium Chloride 1,000 mls @ 999 mls/hr 06/01/17 18:36 06/01/17 19:42 Normal Saline IV 06/01/17 19:36 999 mls/hr .Bolus ONE Administration Insulin Human Regular 5 unit 06/01/17 19:34 06/01/17 19:47 Novolin R IVPUSH 06/01/17 19:35 5 units ONETIME ONE Administration Protocol Morphine Sulfate 2 mg 06/01/17 19:14 06/01/17 19:44 Morphine IV 06/01/17 19:15 2 mg ONETIME ONE Administration Sodium Chloride 10 ml 06/01/17 18:34 06/01/17 19:42 Saline Flush FLUSH 10 ml ASDIRECTED PRN Administration Keep Vein Open Sodium Chloride 2.5 ml 06/01/17 18:34 06/01/17 19:42 Saline Flush FLUSH 2.5 ml ASDIRECTED PRN Administration Keep Vein Open Departure - Departure Disposition: Home, Self-Care 01 Condition: Good Clinical Impression: Hyperglycemia, Noncompliance with medication regimen - Discharge Information Instructions: Hyperglycemia, [id number] Referrals: Maynor Black MD [Primary Care Provider] - Forms: ED Department Discharge Additional Instructions: Medication as prescribed Return if symptoms persist or worsen ER referral provided for primary care follow-up in 3-4 days for chronic pain management The following information is given to patients seen in the emergency department who are being discharged to home. This information is to outline your options for follow-up care. We provide all patients seen in our emergency department with a follow-up referral. The need for follow-up, as well as the timing and circumstances, are variable depending upon the specifics of your emergency department visit. If you don't have a primary care physician on staff, we will provide you with a referral. We always advise you to contact your personal physician following an emergency department visit to inform them of the circumstance of the visit and for follow-up with them and/or the need for any referrals to a consulting specialist. The emergency department will also refer you to a specialist when appropriate. This referral assures that you have the opportunity for follow-up care with a specialist. All of these measure are taken in an effort to provide you with optimal care, which includes your follow-up. Under all circumstances we always encourage you to contact your private physician who remains a resource for coordinating your care. When calling for follow-up care, please make the office aware that this follow-up is from your recent emergency room visit. If for any reason you are refused follow-up, please contact the [facility] emergency department at and asked to speak to the emergency department charge nurse. - My Orders Last 24 Hours: My Active Orders 06/01/17 18:34 Saline Lock Insert [OM.PC] Stat - Assessment/Plan Last 24 Hours: My Active Orders 06/01/17 18:34 Saline Lock Insert [OM.PC] Stat <Macie Doyle - Last Filed: 06/02/17 06:55> ED HPI GENERAL MEDICAL PROBLEM - General Source of Information: Reports: Patient History Limitations: Reports: No Limitations - History of Present Illness INITIAL COMMENTS - FREE TEXT/NARRATIVE: History of present illness: []Patient has chronic insulin-dependent diabetic who is poorly controlled and noncompliant. She also takes long-acting morphine for chronic gastroparesis but has run out of her allotted 15 day supply. she states she's been vomiting and can't keep anything down and feels like she's going back into DKA. She has had one episode of dark diarrhea todayl She denies any fevers or cough. Review of systems: As per history of present illness and below otherwise all systems reviewed and negative. Past medical history: As per history of present illness and as reviewed below otherwise noncontributory. Surgical history: As per history of present illness and as reviewed below otherwise noncontributory. Social history: No reported history of drug or alcohol abuse. Family history: As per history of present illness and as reviewed below otherwise noncontributory. Physical exam: General: Well developed, thin and crying without tears HEENT: Atraumatic, normocephalic, pupils reactive, negative for conjunctival pallor or scleral icterus, mucous membranes dry, throat clear, neck supple, nontender, trachea midline. Lungs: Clear to auscultation, breath sounds equal bilaterally, chest nontender. Heart: S1S2, regular, negative for clicks, rubs, or JVD. Abdomen: Soft, nondistended, mild diffuse tenderness no rebound or guarding. Negative for masses or hepatosplenomegaly. Negative for costovertebral tenderness. Pelvis: Stable nontender. Genitourinary: Deferred. Rectal: Deferred. Extremities: Atraumatic, negative for cords or calf pain. Neurovascular unremarkable. Neuro: Awake, alert, oriented. Cranial nerves II through XII unremarkable. Cerebellum unremarkable. Motor and sensory unremarkable throughout. Exam nonfocal. Diagnostics: []labs results pending and signed out to Dr. Miller for final disposition Therapeutics: []IV fluids given Impression: [] Plan: [] Definitive disposition and diagnosis as appropriate pending reevaluation and review of above. Generalized Pain Score (Numeric/FACES): 10 Past Medical History - Past Health History Medical/Surgical History: Denies Medical/Surgical History HEENT History: Reports: Allergic Rhinitis Other HEENT History: dental abcess Cardiovascular History: Reports: None Respiratory History: Reports: Asthma Gastrointestinal History: Reports: GI Bleed, Hepatitis, PUD, Other (See Below) Other Gastrointestinal History: hx of C-diff, hx of Hepatitis B Genitourinary History: Reports: UTI, Recurrent Other Genitourinary History: current UTI LAUNDERER HAND History: Reports: Other (See Below) Other OB/BYN History: had miscarriage twice Musculoskeletal History: Reports: Back Pain, Chronic Neurological History: Reports: Migraines, Other (See Below) 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 Psychiatric History: Reports: Anxiety, Depression Endocrine/Metabolic History: Reports: Diabetes, Type I Hematologic History: Reports: Anemia, Blood Transfusion(s) Immunologic History: Reports: None Oncologic (Cancer) History: Reports: None Dermatologic History: Reports: Other (See Below) Other Dermatologic History: wound dishiscence causing port removal R upper chest --dehiscence from inadequate diet - Infectious Disease History Infectious Disease History: Reports: Chicken Pox, Hepatitis B - Past Surgical History Head Surgeries/Procedures: Reports: None HEENT Surgical History: Reports: Tonsillectomy Cardiovascular Surgical History: Reports: None Respiratory Surgical History: Reports: None GI Surgical History: Reports: Appendectomy, Cholecystectomy, ERCP Female Surgical History: Reports: None Endocrine Surgical History: Reports: None Neurological Surgical History: Reports: None Musculoskeletal Surgical History: Reports: None Oncologic Surgical History: Reports: None Dermatological Surgical History: Reports: None - History Comment History Comment: She has had over [address] scans in the last 4 years. Social & Family History - Family History Family Medical History: Noncontributory HEENT: Reports: Impaired Vision Cardiac: Reports: Heart Failure Respiratory: Reports: Asthma GI: Reports: None : Reports: Renal Disease/Insufficiency OBGYN: Reports: Musculoskeletal: Reports: Back pain, Chronic Neurological: Reports: Seizure Psychiatric: Reports: None Endocrine/Metabolic: Reports: Diabetes, Type I Hematologic: Reports: None Immunologic: Reports: None Dermatologic: Reports: None Oncologic: Reports: Breast, Cervix - Tobacco Use Smoking Status *Q: Former Smoker Years of Tobacco use: 4 Packs/Tins Daily: 0.5 Used Tobacco, but Quit: Yes Month Tobacco Last Used: 08/2016 Second Hand Smoke Exposure: No - Caffeine Use Caffeine Use: Reports: None - Alcohol Use Days Per Week of Alcohol Use: 0 - Recreational Drug Use Recreational Drug Use: No Drug Use in Last 12 Months: No Recreational Drug Type: Reports: Other (see below) Other Recreational Drug Type: patient verbalized she took oxymorphone prior to admission Recreational Drug Use Frequency: Patient Refuses To Answer - Living Situation & Occupation Living situation: Reports: with Significant Other, with Family, Other Occupation: Unemployed ED ROS GENERAL - Review of Systems Review Of Systems: See Below (see history of present illness) ED EXAM, GENERAL - Physical Exam Exam: See Below (see history of present illness) Course - Orders/Labs/Meds Labs: Laboratory Tests 06/01/17 06/01/17 06/01/17 Range/Units 18:48 18:48 18:55 WBC 6.63 (4.0-11.0) K/uL RBC 3.70 L (4.30-5.90) M/uL Hgb 10.4 L (12.0-16.0) g/dL Hct 32.7 L (36.0-46.0) % MCV 88.4 (80.0-98.0) fL MCH 28.1 (27.0-32.0) pg MCHC 31.8 (31.0-37.0) g/dL RDW Std Deviation 48.3 (28.0-62.0) fl RDW Coeff of Zak 15 (11.0-15.0) % Plt Count 370 (150-400) K/uL MPV 9.90 (7.40-12.00) fL Neut % (Auto) 70.1 (48.0-80.0) % Lymph % (Auto) 25.3 (16.0-40.0) % [place] % (Auto) 4.1 (0.0-15.0) % Eos % (Auto) 0.3 (0.0-7.0) % Baso % (Auto) 0.2 (0.0-1.5) % Neut # (Auto) 4.7 (1.4-5.7) K/uL Lymph # (Auto) 1.7 (0.6-2.4) K/uL [place] # (Auto) 0.3 (0.0-0.8) K/uL Eos # (Auto) 0.0 (0.0-0.7) K/uL Baso # (Auto) 0.0 (0.0-0.1) K/uL Nucleated RBC % 0.0 /100WBC Nucleated RBCs # 0 K/uL ABG pH 7.496 H (7.35-7.45) ABG pCO2 31 L (35-45) mmHG ABG pO2 68 L (75-100) mmHG ABG HCO3 24 (22-26) mEq/L ABG Total CO2 21.5 ABG Base Excess 0.8 (-2.0-2.0) Sodium 137 (136-146) mmol/L Potassium 3.7 (3.5-5.1) mmol/L Chloride 96 L (98-110) mmol/L Carbon Dioxide 21 (21-31) mmol/L BUN 11 (6.0-23.0) mg/dL Creatinine 0.8 (0.6-1.5) mg/dL Est Cr Clr Drug Dosing 73.37 mL/min Estimated GFR (MDRD) > 60.0 ml/min Glucose 393 H (60-110) mg/dL Calcium 10.2 (8.8-10.8) mg/dL Total Bilirubin 0.4 (0.1-1.5) mg/dL AST 16 (5-40) IU/L ALT 26 (8-54) IU/L Alkaline Phosphatase 167 H (40-150) Total Protein 8.0 (6.0-8.0) g/dL Albumin 4.4 (3.5-5.0) g/dL Globulin 3.6 H (2.0-3.5) g/dL Albumin/Globulin Ratio 1.2 L (1.3-2.8) Departure - Departure Time of Disposition: 19:00
[2017-06-01] MEDS ORDERED: Morphine 10 MG/ML Syringe IV ONE (19:14)
[2017-06-01 19:17] LABS: CHLORIDE,CL 96 mmol/L (98-110); SODIUM,NA 137 mmol/L (136-146)
[2017-06-01] MEDS ORDERED: Insulin Regular, Human 100 Units/ML 10 ML Vial IVPUSH ONE (19:34)
[2017-06-02 03:08] VITALS: BP 108/76
== END 2017-06-01 20:39 | disposition home or self-care (01) ==
LOC: MW.ED 17:49
DX: E10.65 Type 1 diabetes mellitus with hyperglycemia (principal); Z91.14 Patient's other noncompliance with medication regimen; F32.9 Major depressive disorder, single episode, unspecified; Z79.4 Long term (current) use of insulin; Z88.1 Allergy status to other antibiotic agents; Z88.5 Allergy status to narcotic agent; Z88.6 Allergy status to analgesic agent; Z88.8 Allergy status to other drugs, medicaments and biological substances; Z87.891 Personal history of nicotine dependence
CPT/HCPCS: 36415; 36600; 80053; 82803; 82962; 85025; 96361; 96374; 96375; 99284; J2270; J7040; 99283; J1815-GY

== ENCOUNTER 2017-06-11 23:50 | Emergency (ER) | payer MEDICAID ==
[2017-06-12] MEDS ORDERED: Sodium Chloride 0.9% 2.5 ML Syringe FLUSH PRN (00:27)
[2017-06-12] MEDS ORDERED: Ondansetron 4 MG/2 ML SDV IVPUSH ONE (00:27)
[2017-06-12] MEDS ORDERED: Sodium Chloride 0.9% 10 ML Syringe FLUSH PRN (00:27)
[2017-06-12] MEDS ORDERED: Morphine 2 MG/ML Syringe IVPUSH ONE (00:27)
[2017-06-12] MEDS ORDERED: Sodium Chloride 0.9% 1,000 ML IV ONE (00:27)
--- NOTE | 2017-06-12 00:33 | EDM.PDOC ---
ED HPI GENERAL MEDICAL PROBLEM - General Chief Complaint: Diabetic Complaint Stated Complaint: WEAK/CONSTIPATION Time Seen by Provider: 06/12/17 00:25 - History of Present Illness INITIAL COMMENTS - FREE TEXT/NARRATIVE: HISTORY AND PHYSICAL: History of present illness: The patient is a 26-year-old female who is well-known to this ER for multiple ER visits and admissions for diabetic complications who presents with complaints of nausea vomiting and diarrhea similar to what she complained and presented to the ER on June 01. On the prior ER visit she had labs including CBC CMP UA and an ABG and was given IV fluids IV meds and was discharged home. She says she did follow-up with her provider in the clinic Dr Black who wanted to send her stool for study but she was not able to produce a sample so she did not return for that test. She says that the symptoms are still ongoing and she has nausea vomiting and diarrhea and can't quantitate any of these symptoms. She has oral medications, oral morphine, for pain and she says she can't tolerate them. She says that she feels bloated in her abdomen and she has received Bentyl in the past or diarrhea and it makes her feel more bloated so she does not want that. She has not had a fever chest pain or shortness of breath. She has been following with an hospitality specialist in [place] and her sugars have been better controlled on the last few visits to the ER. She describes her pain as diffuse in her abdomen and also "in her kidneys". Review of systems: As per history of present illness and below otherwise all systems reviewed and negative. Past medical history: As per history of present illness and as reviewed below otherwise noncontributory. Surgical history: As per history of present illness and as reviewed below otherwise noncontributory. Social history: No reported history of drug or alcohol abuse. Family history: As per history of present illness and as reviewed below otherwise noncontributory. Physical exam: Gen.: Well-developed well-nourished thin female who is nontoxic and tearful on my evaluation. Vital signs of the note by me HEENT: Atraumatic, normocephalic, pupils reactive, negative for conjunctival pallor or scleral icterus, mucous membranes tacky, throat clear, neck supple, nontender, trachea midline. Lungs: Clear to auscultation, breath sounds equal bilaterally, chest nontender. Heart: S1S2, regular rhythm slightly tachycardic rate on my evaluation Abdomen: Soft, nondistended, nontender. There is some tympany on percussion but there is no rebound guarding and no tenderness on deep palpation throughout the abdomen. Bowel sounds are hypoactive on my eval. Negative for masses or hepatosplenomegaly. Negative for costovertebral tenderness. Pelvis: Stable nontender. Genitourinary: Deferred. Rectal: Deferred. Extremities: Atraumatic, negative for cords or calf pain. Neurovascular unremarkable. Neuro: Awake, alert, oriented. Cranial nerves II through XII unremarkable. Cerebellum unremarkable. Motor and sensory unremarkable throughout. Exam nonfocal. Diagnostics: CBC CMP UA UCG stool for C. difficile and culture Accu-Chek on arrival Therapeutics: IV fluids Zofran 1 dose of morphine Benadryl She told nursing that she felt a little itchy after the morphine so I will give her a dose of Benadryl. Patient takes morphine orally on a regular basis without reaction. 0152: Patient asked for her blood sugar to be checked because she felt like it was going very low and on Accu-Chek it was 27. Patient will be given an amp of D50. Patient tells me that despite the vomiting and diarrhea she has been eating some and hydrating. She says that she took her normal dose of Levemir at 9 PM and when she checked her blood sugar at midnight it was elevated so she gave herself 8 units of regular. We will continue to monitor this and when she is able to tolerate give her some by mouth. 0245: Patient feels better as far as the nausea and the vomiting perspective and has not had any vomiting here in the ED. We have given her a by mouth challenge and she feels better. She did produce urine sample which is currently in the lab as well as a stool sample. The stool was not at all diarrhea but was in fact hard stool and it was still sent to the lab for study. 0340: We continue to monitor the patient and she is holding her blood sugar and she has had some juice. She has had no vomiting or diarrhea here. We are currently awaiting her stool studies and will plan for discharge home as the patient has Zofran and morphine at home to utilize for pain and vomiting. I will strongly advise her to follow-up with her provider in the clinic and reasons to return to the ER. I will ask her to check her blood sugar every 1-2 hours for the next several hours and to try to eat small bites of food and stay hydrated. Prior to departure I was able to obtain the stool studies and the stool is currently negative for culture but the remainder of the test will be performed and she is positive for C. difficile. I will give her prescription for metronidazole to start in the morning and she can fill the prescription in the morning. Impression: Nausea vomiting and diarrhea with history of same, C. difficile positive Definitive disposition and diagnosis as appropriate pending reevaluation and review of above. Flank Pain Score (Numeric/FACES): 10 - Related Data Allergies Allergy/AdvReac Type Severity Reaction Status Date / Time acetaminophen [From Tylenol] Allergy Liver Verified 06/12/17 00:00 Problems amoxicillin Allergy Hives Verified 06/12/17 00:00 amoxicillin trihydrate Allergy Hives Verified 06/12/17 00:00 [From Amoxil] ibuprofen Allergy Liver Verified 06/12/17 00:00 Problems ketorolac tromethamine Allergy Hives Verified 06/12/17 00:00 [From Toradol] metoclopramide HCl Allergy Airway Verified 06/12/17 00:00 [From Reglan] Tightness tramadol Allergy Hives Verified 06/12/17 00:00 haldol Allergy Swelling Uncoded 06/12/17 00:00 Home Meds: Home Meds LORazepam [Ativan] 1 mg PO TID PRN 03/24/16 [History] Ondansetron [Ondansetron ODT] 8 mg PO QID PRN 04/19/16 [History] Insulin Aspart [Novolog Flexpen] 16 - 20 unit SUBCUT QIDACANDBED 05/15/16 [ History] Insulin Detemir [Levemir] 7 unit SUBCUT QPM 04/30/17 [History] Past Medical History - Past Health History Medical/Surgical History: Denies Medical/Surgical History HEENT History: Reports: Allergic Rhinitis Other HEENT History: dental abcess Cardiovascular History: Reports: None Respiratory History: Reports: Asthma Gastrointestinal History: Reports: GI Bleed, Hepatitis, PUD, Other (See Below) Other Gastrointestinal History: hx of C-diff, hx of Hepatitis B Genitourinary History: Reports: UTI, Recurrent Other Genitourinary History: current UTI 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 (See Below) Other OB/BYN History: had miscarriage twice Musculoskeletal History: Reports: Back Pain, Chronic Neurological History: Reports: Migraines, Other (See Below) 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 Psychiatric History: Reports: Anxiety, Depression Endocrine/Metabolic History: Reports: Diabetes, Type I Hematologic History: Reports: Anemia, Blood Transfusion(s) Immunologic History: Reports: None Oncologic (Cancer) History: Reports: None Dermatologic History: Reports: Other (See Below) Other Dermatologic History: wound dishiscence causing port removal R upper chest --dehiscence from inadequate diet - Infectious Disease History Infectious Disease History: Reports: Chicken Pox - Past Surgical History Head Surgeries/Procedures: Reports: None HEENT Surgical History: Reports: Tonsillectomy Cardiovascular Surgical History: Reports: None Respiratory Surgical History: Reports: None GI Surgical History: Reports: Appendectomy, Cholecystectomy, ERCP Female Surgical History: Reports: None Endocrine Surgical History: Reports: None Neurological Surgical History: Reports: None Musculoskeletal Surgical History: Reports: None Oncologic Surgical History: Reports: None Dermatological Surgical History: Reports: None - History Comment History Comment: She has had over [address] scans in the last 4 years. Social & Family History - Family History Family Medical History: Noncontributory HEENT: Reports: Impaired Vision Cardiac: Reports: Heart Failure Respiratory: Reports: Asthma GI: Reports: None : Reports: Renal Disease/Insufficiency OBGYN: Reports: Musculoskeletal: Reports: Back pain, Chronic Neurological: Reports: Seizure Psychiatric: Reports: None Endocrine/Metabolic: Reports: Diabetes, Type I Hematologic: Reports: None Immunologic: Reports: None Dermatologic: Reports: None Oncologic: Reports: Breast, Cervix - Tobacco Use Smoking Status *Q: Former Smoker Years of Tobacco use: 4 Packs/Tins Daily: 0.5 Used Tobacco, but Quit: Yes Month Tobacco Last Used: 08/2016 Second Hand Smoke Exposure: No - Caffeine Use Caffeine Use: Reports: None - Alcohol Use Days Per Week of Alcohol Use: 0 - Recreational Drug Use Recreational Drug Use: No Drug Use in Last 12 Months: No Recreational Drug Type: Reports: Other (see below) Other Recreational Drug Type: patient verbalized she took oxymorphone prior to admission Recreational Drug Use Frequency: Patient Refuses To Answer - Living Situation & Occupation Living situation: Reports: with Significant Other, with Family, Other Occupation: Unemployed ED ROS GENERAL - Review of Systems Review Of Systems: ROS reveals no pertinent complaints other than HPI. ED EXAM GENERAL NO PERIP PULSE - Physical Exam Exam: See Below (See dictation) Course - Vital Signs Last Recorded V/S: Last Vital Signs Temp 36.8 C 06/11/17 23:54 Pulse 98 06/12/17 03:30 Resp 16 06/12/17 03:30 BP 113/77 06/12/17 03:30 Pulse Ox 98 06/12/17 03:30 - Orders/Labs/Meds Orders: Active Orders 24 hr Category Date Time Status CULTURE STOOL + CAMPY+SHIGATOX [RM] Stat Lab 06/12/17 02:45 Results Sodium Chloride 0.9% [Saline Flush] Med 06/12/17 00:27 Active 10 ml FLUSH ASDIRECTED PRN Sodium Chloride 0.9% [Saline Flush] Med 06/12/17 00:27 Active 2.5 ml FLUSH ASDIRECTED PRN Saline Lock Insert [OM.PC] Stat Oth 06/12/17 00:26 Ordered Medication Orders Sodium Chloride (Saline Flush) 10 ml FLUSH ASDIRECTED PRN PRN Reason: Keep Vein Open Sodium Chloride (Saline Flush) 2.5 ml FLUSH ASDIRECTED PRN PRN Reason: Keep Vein Open Labs: Laboratory Tests 06/12/17 06/12/17 06/12/17 Range/Units 00:44 00:44 01:53 WBC 8.35 (4.0-11.0) K/uL RBC 3.87 L (4.30-5.90) M/uL Hgb 10.4 L (12.0-16.0) g/dL Hct 33.3 L (36.0-46.0) % MCV 86.0 (80.0-98.0) fL MCH 26.9 L (27.0-32.0) pg MCHC 31.2 (31.0-37.0) g/dL RDW Std Deviation 44.8 (28.0-62.0) fl RDW Coeff of Zak 15 (11.0-15.0) % Plt Count 570 H (150-400) K/uL MPV 9.80 (7.40-12.00) fL Neut % (Auto) 51.6 (48.0-80.0) % Lymph % (Auto) 39.5 (16.0-40.0) % [place] % (Auto) 7.1 (0.0-15.0) % Eos % (Auto) 1.4 (0.0-7.0) % Baso % (Auto) 0.4 (0.0-1.5) % Neut # (Auto) 4.3 (1.4-5.7) K/uL Lymph # (Auto) 3.3 H (0.6-2.4) K/uL [place] # (Auto) 0.6 (0.0-0.8) K/uL Eos # (Auto) 0.1 (0.0-0.7) K/uL Baso # (Auto) 0.0 (0.0-0.1) K/uL Sodium 137 (136-146) mmol/L Potassium 4.4 (3.5-5.1) mmol/L Chloride 105 (98-110) mmol/L Carbon Dioxide 19 L (21-31) mmol/L BUN 20 (6.0-23.0) mg/dL Creatinine 0.7 (0.6-1.5) mg/dL Est Cr Clr Drug Dosing 86.71 mL/min Estimated GFR (MDRD) > 60.0 ml/min Glucose 118 H (60-110) mg/dL POC Glucose 27 L (60-110) mg/dL Calcium 10.4 (8.8-10.8) mg/dL Total Bilirubin 0.2 (0.1-1.5) mg/dL AST 40 (5-40) IU/L ALT 42 (8-54) IU/L Alkaline Phosphatase 183 H (40-150) Total Protein 8.1 H (6.0-8.0) g/dL Albumin 4.3 (3.5-5.0) g/dL Globulin 3.8 H (2.0-3.5) g/dL Albumin/Globulin Ratio 1.1 L (1.3-2.8) Urine Color Urine Appearance Urine pH (5.0-8.0) Ur Specific [place] (1.001-1.035) Urine Protein (NEGATIVE) mg/dL Urine Glucose (UA) (NEGATIVE) mg/dL Urine Ketones (NEGATIVE) mg/dL Urine Occult Blood (NEGATIVE) Urine Nitrite (NEGATIVE) Urine Bilirubin (NEGATIVE) Urine Urobilinogen (<2.0) EU/dL Ur Leukocyte Esterase (NEGATIVE) Urine RBC (0-2/HPF) Urine WBC (0-5/HPF) Ur Epithelial Cells (NONE-FEW) Urine Bacteria (NEGATIVE) Urine HCG, Qual (NEGATIVE) 06/12/17 06/12/17 06/12/17 Range/Units 02:45 02:45 02:46 WBC (4.0-11.0) K/uL RBC (4.30-5.90) M/uL Hgb (12.0-16.0) g/dL Hct (36.0-46.0) % MCV (80.0-98.0) fL MCH (27.0-32.0) pg MCHC (31.0-37.0) g/dL RDW Std Deviation (28.0-62.0) fl RDW Coeff of Zak (11.0-15.0) % Plt Count (150-400) K/uL MPV (7.40-12.00) fL Neut % (Auto) (48.0-80.0) % Lymph % (Auto) (16.0-40.0) % [place] % (Auto) (0.0-15.0) % Eos % (Auto) (0.0-7.0) % Baso % (Auto) (0.0-1.5) % Neut # (Auto) (1.4-5.7) K/uL Lymph # (Auto) (0.6-2.4) K/uL [place] # (Auto) (0.0-0.8) K/uL Eos # (Auto) (0.0-0.7) K/uL Baso # (Auto) (0.0-0.1) K/uL Sodium (136-146) mmol/L Potassium (3.5-5.1) mmol/L Chloride (98-110) mmol/L Carbon Dioxide (21-31) mmol/L BUN (6.0-23.0) mg/dL Creatinine (0.6-1.5) mg/dL Est Cr Clr Drug Dosing mL/min Estimated GFR (MDRD) ml/min Glucose (60-110) mg/dL POC Glucose 127 H (60-110) mg/dL Calcium (8.8-10.8) mg/dL Total Bilirubin (0.1-1.5) mg/dL AST (5-40) IU/L ALT (8-54) IU/L Alkaline Phosphatase (40-150) Total Protein (6.0-8.0) g/dL Albumin (3.5-5.0) g/dL Globulin (2.0-3.5) g/dL Albumin/Globulin Ratio (1.3-2.8) Urine Color YELLOW Urine Appearance CLEAR Urine pH 7.0 (5.0-8.0) Ur Specific [place] 1.010 (1.001-1.035) Urine Protein NEGATIVE (NEGATIVE) mg/dL Urine Glucose (UA) >=1000 (NEGATIVE) mg/dL Urine Ketones NEGATIVE (NEGATIVE) mg/dL Urine Occult Blood NEGATIVE (NEGATIVE) Urine Nitrite NEGATIVE (NEGATIVE) Urine Bilirubin NEGATIVE (NEGATIVE) Urine Urobilinogen 0.2 (<2.0) EU/dL Ur Leukocyte Esterase NEGATIVE (NEGATIVE) Urine RBC 0-2 (0-2/HPF) Urine WBC 1-2 (0-5/HPF) Ur Epithelial Cells FEW (NONE-FEW) Urine Bacteria FEW (NEGATIVE) Urine HCG, Qual NEGATIVE (NEGATIVE) 06/12/17 Range/Units 03:29 WBC (4.0-11.0) K/uL RBC (4.30-5.90) M/uL Hgb (12.0-16.0) g/dL Hct (36.0-46.0) % MCV (80.0-98.0) fL MCH (27.0-32.0) pg MCHC (31.0-37.0) g/dL RDW Std Deviation (28.0-62.0) fl RDW Coeff of Zak (11.0-15.0) % Plt Count (150-400) K/uL MPV (7.40-12.00) fL Neut % (Auto) (48.0-80.0) % Lymph % (Auto) (16.0-40.0) % [place] % (Auto) (0.0-15.0) % Eos % (Auto) (0.0-7.0) % Baso % (Auto) (0.0-1.5) % Neut # (Auto) (1.4-5.7) K/uL Lymph # (Auto) (0.6-2.4) K/uL [place] # (Auto) (0.0-0.8) K/uL Eos # (Auto) (0.0-0.7) K/uL Baso # (Auto) (0.0-0.1) K/uL Sodium (136-146) mmol/L Potassium (3.5-5.1) mmol/L Chloride (98-110) mmol/L Carbon Dioxide (21-31) mmol/L BUN (6.0-23.0) mg/dL Creatinine (0.6-1.5) mg/dL Est Cr Clr Drug Dosing mL/min Estimated GFR (MDRD) ml/min Glucose (60-110) mg/dL POC Glucose 105 (60-110) mg/dL Calcium (8.8-10.8) mg/dL Total Bilirubin (0.1-1.5) mg/dL AST (5-40) IU/L ALT (8-54) IU/L Alkaline Phosphatase (40-150) Total Protein (6.0-8.0) g/dL Albumin (3.5-5.0) g/dL Globulin (2.0-3.5) g/dL Albumin/Globulin Ratio (1.3-2.8) Urine Color Urine Appearance Urine pH (5.0-8.0) Ur Specific [place] (1.001-1.035) Urine Protein (NEGATIVE) mg/dL Urine Glucose (UA) (NEGATIVE) mg/dL Urine Ketones (NEGATIVE) mg/dL Urine Occult Blood (NEGATIVE) Urine Nitrite (NEGATIVE) Urine Bilirubin (NEGATIVE) Urine Urobilinogen (<2.0) EU/dL Ur Leukocyte Esterase (NEGATIVE) Urine RBC (0-2/HPF) Urine WBC (0-5/HPF) Ur Epithelial Cells (NONE-FEW) Urine Bacteria (NEGATIVE) Urine HCG, Qual (NEGATIVE) Meds: Medications Generic Name Dose Route Start Last Admin Trade Name Freq PRN Reason Stop Dose Admin Sodium Chloride 10 ml 06/12/17 00:27 Saline Flush FLUSH ASDIRECTED PRN Keep Vein Open Sodium Chloride 2.5 ml 06/12/17 00:27 Saline Flush FLUSH ASDIRECTED PRN Keep Vein Open Discontinued Medications Generic Name Dose Route Start Last Admin Trade Name Freq PRN Reason Stop Dose Admin Dextrose/Water 50 ml 06/12/17 01:54 06/12/17 01:56 Dextrose 50% In Water IVPUSH 06/12/17 01:55 50 ml ONETIME ONE Administration Diphenhydramine HCl 25 mg 06/12/17 02:35 06/12/17 02:47 Benadryl IVPUSH 06/12/17 02:36 25 mg ONETIME ONE Administration Sodium Chloride 1,000 mls @ 999 mls/hr 06/12/17 00:27 06/12/17 01:19 Normal Saline IV 06/12/17 01:27 250 mls/hr STAT ONE Infusion Morphine Sulfate 2 mg 06/12/17 00:27 06/12/17 01:17 Morphine IVPUSH 06/12/17 00:28 2 mg ONETIME ONE Administration Ondansetron HCl 4 mg 06/12/17 00:27 06/12/17 01:17 Zofran IVPUSH 06/12/17 00:28 4 mg ONETIME ONE Administration Departure - Departure Time of Disposition: 03:57 Disposition: Home, Self-Care 01 Condition: Good Clinical Impression: Hypoglycemia, Vomiting and diarrhea, Clostridium difficile diarrhea - Discharge Information Referrals: PCP,None [Primary Care Provider] - Forms: ED Department Discharge Additional Instructions: The following information is given to patients seen in the emergency department who are being discharged to home. This information is to outline your options for follow-up care. We provide all patients seen in our emergency department with a follow-up referral. The need for follow-up, as well as the timing and circumstances, are variable depending upon the specifics of your emergency department visit. If you don't have a primary care physician on staff, we will provide you with a referral. We always advise you to contact your personal physician following an emergency department visit to inform them of the circumstance of the visit and for follow-up with them and/or the need for any referrals to a consulting specialist. The emergency department will also refer you to a specialist when appropriate. This referral assures that you have the opportunity for followup care with a specialist. All of these measure are taken in an effort to provide you with optimal care, which includes your followup. Under all circumstances we always encourage you to contact your private physician who remains a resource for coordinating your care. When calling for followup care, please make the office aware that this follow-up is from your recent emergency room visit. If for any reason you are refused follow-up, please contact the [facility] emergency department at and ask to speak to the emergency department charge nurse. [facility] Primary care- Internal Medicine and Family [address] [address] Please eat small bites of food throughout the next 8 hours and push hydration as much as possible. Please monitor your blood sugar every 1-2 hours for the next 6 hours and please try to be judicious with her insulin dosing on sliding scale. Please call and follow-up in the clinic with Dr. Black in 1-2 days and return to ER as needed and as discussed. Please fill the prescription you have been given tonight to treat the C. difficile in the stool and start first thing in the morning - My Orders Last 24 Hours: My Active Orders 06/12/17 00:26 Saline Lock Insert [OM.PC] Stat 06/12/17 00:27 Sodium Chloride 0.9% [Saline Flush] 10 ml FLUSH ASDIRECTED PRN Sodium Chloride 0.9% [Saline Flush] 2.5 ml FLUSH ASDIRECTED PRN 06/12/17 02:45 CULTURE STOOL + CAMPY+SHIGATOX [RM] Stat - Assessment/Plan Last 24 Hours: My Active Orders 06/12/17 00:26 Saline Lock Insert [OM.PC] Stat 06/12/17 00:27 Sodium Chloride 0.9% [Saline Flush] 10 ml FLUSH ASDIRECTED PRN Sodium Chloride 0.9% [Saline Flush] 2.5 ml FLUSH ASDIRECTED PRN 06/12/17 02:45 CULTURE STOOL + CAMPY+SHIGATOX [RM] Stat
[2017-06-12 01:16] LABS: CHLORIDE,CL 105 mmol/L (98-110); SODIUM,NA 137 mmol/L (136-146)
--- NOTE | 2017-06-12 01:26 | PCM.SN ---
- Free Text/Narrative Note: Anesthesia Note: Called for difficult IV access. Initial attempt of 20 GA to L EJ, but EJ collapses upon stick and unable to cannulate vessel. 24 GA placed to L shoulder area - flushes easily and without pain - pt instructed to leave arm out and not move as the IV catheter is very short and could dislodge with activity.
[2017-06-12] MEDS ORDERED: 50% Dextrose in Water 50 ML Syringe IVPUSH ONE (01:54)
[2017-06-12] MEDS ORDERED: diphenhydrAMINE 50 MG/ML SDV IVPUSH ONE (02:35)
[2017-06-12 04:24] VITALS: BP 119/78
== END 2017-06-12 04:20 | disposition home or self-care (01) ==
LOC: MW.ED 23:50
DX: A04.72 Enterocolitis due to Clostridium difficile, not specified as recurrent (principal); E10.649 Type 1 diabetes mellitus with hypoglycemia without coma; Z88.1 Allergy status to other antibiotic agents; Z88.6 Allergy status to analgesic agent; Z88.5 Allergy status to narcotic agent; Z88.8 Allergy status to other drugs, medicaments and biological substances; Z87.891 Personal history of nicotine dependence
CPT/HCPCS: 36415; 80053; 81001; 81025; 82962; 85025; 87046; 87324; 87899; 96361; 96374; 96375; 99284; J1200; J2270; J2405; J7040; J7060; 36410

== ENCOUNTER 2017-08-18 16:02 | Emergency (ER) | payer MEDICAID ==
[2017-08-18] MEDS ORDERED: Sodium Chloride 0.9% 1,000 ML IV ONE (16:54)
[2017-08-18] MEDS ORDERED: Ondansetron 4 MG/2 ML SDV IVPUSH ONE (16:54)
--- NOTE | 2017-08-18 16:58 | EDM.PDOC ---
ED HPI GENERAL MEDICAL PROBLEM - General Chief Complaint: General Stated Complaint: BS ISSUES,BACK PAIN Time Seen by Provider: 08/18/17 18:39 Source of Information: Reports: Patient - History of Present Illness INITIAL COMMENTS - FREE TEXT/NARRATIVE: HISTORY AND PHYSICAL: History of present illness: [ ]Patient well known to myself She is known diabetic presenting with back pain and abdominal pain known histories of gastroparesis as well as stress fractures in her back she was recently diagnosed with osteoporosis, she is currently on morphine 60 mg twice daily this is a change from her previous morphine dose of 15 mg 5 times daily, essentially 15 mg less per day. I will have a primary care sort through the pain management as maybe she does somewhat better spreading out the dosing. Discussed her case at length with her Avenue offered her admission for pain control and rehydration glucose control she declined/refuses admission she has generally been noncompliant and signed out AMA in the past She has no fever nausea vomiting diarrhea constipation chest pain shortness of breath headache dizziness or palpitation no bowel or urine symptoms, she does have the abdominal pain she rates 4 out of 10 nonradiating diffuse has been present over the last several days As well as back pain Review of systems: As per history of present illness and below otherwise all systems reviewed and negative. Past medical history: As per history of present illness and as reviewed below otherwise noncontributory. Surgical history: As per history of present illness and as reviewed below otherwise noncontributory. Social history: No reported history of drug or alcohol abuse. Family history: As per history of present illness and as reviewed below otherwise noncontributory. Physical exam: HEENT: Atraumatic, normocephalic, pupils reactive, negative for conjunctival pallor or scleral icterus, mucous membranes moist, throat clear, neck supple, nontender, trachea midline. Lungs: Clear to auscultation, breath sounds equal bilaterally, chest nontender. Heart: S1S2, regular, negative for clicks, rubs, or JVD. Abdomen: Soft, nondistended, nontender. Negative for masses or hepatosplenomegaly. Negative for costovertebral tenderness. Pelvis: Stable nontender. Genitourinary: Deferred. Rectal: Deferred. Extremities: Atraumatic, negative for cords or calf pain. Neurovascular unremarkable. Neuro: Awake, alert, oriented. Cranial nerves II through XII unremarkable. Cerebellum unremarkable. Motor and sensory unremarkable throughout. Exam nonfocal. Diagnostics: [CBC CMP UA hCG lactic acid ABG Blood cultures 2 Accu-Chek Chest 1 view EKG ] Therapeutics: [Liter normal saline bolus Zofran 8 mg IV Insulin 10 units IV Morphine 2 mg IV ] Patient offered observation admission she refuses at this time, she is extended the invitation to return if symptoms persist or worsen Impression: Back pain secondary to known compression fracture and osteoporosis Dehydration Hyperglycemia [Ketonuria Elevated lactate level Normal anion gap Chronic history of baseline] Definitive disposition and diagnosis as appropriate pending reevaluation and review of above. back Pain Score (Numeric/FACES): 10 - Related Data Allergies Allergy/AdvReac Type Severity Reaction Status Date / Time acetaminophen [From Tylenol] Allergy Liver Verified 08/18/17 16:29 Problems amoxicillin Allergy Hives Verified 08/18/17 16:29 amoxicillin trihydrate Allergy Hives Verified 08/18/17 16:29 [From Amoxil] ibuprofen Allergy Liver Verified 08/18/17 16:29 Problems ketorolac tromethamine Allergy Hives Verified 08/18/17 16:29 [From Toradol] metoclopramide HCl Allergy Airway Verified 08/18/17 16:29 [From Reglan] Tightness tramadol Allergy Hives Verified 08/18/17 16:29 haldol Allergy Swelling Uncoded 08/18/17 16:29 Home Meds: Home Meds LORazepam [Ativan] 1 mg PO TID PRN 03/24/16 [History] Ondansetron [Ondansetron ODT] 8 mg PO QID PRN 04/19/16 [History] Insulin Aspart [Novolog Flexpen] 16 - 20 unit SUBCUT QIDACANDBED 05/15/16 [ History] Insulin Detemir [Levemir] 7 unit SUBCUT QPM 04/30/17 [History] Cholecalciferol (Vitamin D3) [Vitamin D3] 08/18/17 [History] Past Medical History - Past Health History Medical/Surgical History: Denies Medical/Surgical History HEENT History: Reports: Allergic Rhinitis Other HEENT History: dental abcess Cardiovascular History: Reports: None Respiratory History: Reports: Asthma Gastrointestinal History: Reports: GI Bleed, Hepatitis, PUD, Other (See Below) Other Gastrointestinal History: hx of C-diff, hx of Hepatitis B Genitourinary History: Reports: UTI, Recurrent Other Genitourinary History: current UTI HOT PACKER History: Reports: Other (See Below) Other OB/BYN History: had miscarriage twice Musculoskeletal History: Reports: Back Pain, Chronic Neurological History: Reports: Migraines, Other (See Below) 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 Psychiatric History: Reports: Anxiety, Depression Endocrine/Metabolic History: Reports: Diabetes, Type I Hematologic History: Reports: Anemia, Blood Transfusion(s) Immunologic History: Reports: None Oncologic (Cancer) History: Reports: None Dermatologic History: Reports: Other (See Below) Other Dermatologic History: wound dishiscence causing port removal R upper chest --dehiscence from inadequate diet - Infectious Disease History Infectious Disease History: Reports: Chicken Pox - Past Surgical History Head Surgeries/Procedures: Reports: None HEENT Surgical History: Reports: Tonsillectomy Cardiovascular Surgical History: Reports: None Respiratory Surgical History: Reports: None GI Surgical History: Reports: Appendectomy, Cholecystectomy, ERCP Female Surgical History: Reports: None Endocrine Surgical History: Reports: None Neurological Surgical History: Reports: None Musculoskeletal Surgical History: Reports: None Oncologic Surgical History: Reports: None Dermatological Surgical History: Reports: None - History Comment History Comment: She has had over [address] scans in the last 4 years. Social & Family History - Family History Family Medical History: Noncontributory HEENT: Reports: Impaired Vision Cardiac: Reports: Heart Failure Respiratory: Reports: Asthma GI: Reports: None : Reports: Renal Disease/Insufficiency OBGYN: Reports: Musculoskeletal: Reports: Back pain, Chronic Neurological: Reports: Seizure Psychiatric: Reports: None Endocrine/Metabolic: Reports: Diabetes, Type I Hematologic: Reports: None Immunologic: Reports: None Dermatologic: Reports: None Oncologic: Reports: Breast, Cervix - Tobacco Use Smoking Status *Q: Current Every Day Smoker Years of Tobacco use: 5 Packs/Tins Daily: 0.5 Used Tobacco, but Quit: Yes Month Tobacco Last Used: 08/2016 Second Hand Smoke Exposure: No - Caffeine Use Caffeine Use: Reports: None - Alcohol Use Days Per Week of Alcohol Use: 0 - Recreational Drug Use Recreational Drug Use: No Drug Use in Last 12 Months: No Recreational Drug Type: Reports: Other (see below) Other Recreational Drug Type: patient verbalized she took oxymorphone prior to admission Recreational Drug Use Frequency: Patient Refuses To Answer - Living Situation & Occupation Living situation: Reports: with Significant Other, with Family, Other Occupation: Unemployed ED ROS GENERAL - Review of Systems Review Of Systems: ROS reveals no pertinent complaints other than HPI. ED EXAM, GENERAL - Physical Exam Exam: See Below Course - Vital Signs Last Recorded V/S: Last Vital Signs Temp 98.6 F 08/18/17 16:30 Pulse 93 08/18/17 16:30 Resp 18 08/18/17 16:30 BP 119/81 08/18/17 16:30 Pulse Ox 95 08/18/17 16:30 - Orders/Labs/Meds Orders: Active Orders 24 hr Category Date Time Status Accu Check [Blood Glucose Check, Bedside] [RC] ONETIME Care 08/18/17 17:45 Active EKG Documentation Completion [RC] STAT Care 08/18/17 17:33 Active Chest 1V Frontal [CR] Stat Exams 08/18/17 16:55 Taken CULTURE BLOOD [BC] Stat Lab 08/18/17 17:29 Received CULTURE BLOOD [BC] Stat Lab 08/18/17 17:45 Results Blood Culture x2 Reflex Set [OM.PC] Stat Oth 08/18/17 17:12 Ordered Labs: Laboratory Tests 08/18/17 08/18/17 08/18/17 Range/Units 16:41 16:41 17:00 WBC 7.06 (4.0-11.0) K/uL RBC 4.61 (4.30-5.90) M/uL Hgb 10.9 L (12.0-16.0) g/dL Hct 35.4 L (36.0-46.0) % MCV 76.8 L (80.0-98.0) fL MCH 23.6 L (27.0-32.0) pg MCHC 30.8 L (31.0-37.0) g/dL RDW Std Deviation 51.2 (28.0-62.0) fl RDW Coeff of Zak 19 H (11.0-15.0) % Plt Count 278 (150-400) K/uL MPV 9.90 (7.40-12.00) fL Neut % (Auto) 58.1 (48.0-80.0) % Lymph % (Auto) 35.3 (16.0-40.0) % Dickey % (Auto) 4.7 (0.0-15.0) % Eos % (Auto) 1.3 (0.0-7.0) % Baso % (Auto) 0.6 (0.0-1.5) % Neut # (Auto) 4.1 (1.4-5.7) K/uL Lymph # (Auto) 2.5 H (0.6-2.4) K/uL Dickey # (Auto) 0.3 (0.0-0.8) K/uL Eos # (Auto) 0.1 (0.0-0.7) K/uL Baso # (Auto) 0.0 (0.0-0.1) K/uL Nucleated RBC % 0.0 /100WBC Nucleated RBCs # 0 K/uL ABG pH (7.35-7.45) ABG pCO2 (35-45) mmHG ABG pO2 (75-100) mmHG ABG HCO3 (22-26) mEq/L ABG Total CO2 ABG Base Excess (-2.0-2.0) Lactate (0.20-2.00) mmol/L Sodium (136-146) mmol/L Potassium (3.5-5.1) mmol/L Chloride (98-110) mmol/L Carbon Dioxide (21-31) mmol/L BUN (6.0-23.0) mg/dL Creatinine (0.6-1.5) mg/dL Est Cr Clr Drug Dosing mL/min Estimated GFR (MDRD) ml/min Glucose (60-110) mg/dL POC Glucose (60-110) mg/dL Calcium (8.8-10.8) mg/dL Total Bilirubin (0.1-1.5) mg/dL AST (5-40) IU/L ALT (8-54) IU/L Alkaline Phosphatase (40-150) Total Protein (6.0-8.0) g/dL Albumin (3.5-5.0) g/dL Globulin (2.0-3.5) g/dL Albumin/Globulin Ratio (1.3-2.8) Lipase (7-80) U/L Urine Color YELLOW Urine Appearance CLEAR Urine pH 5.5 (5.0-8.0) Ur Specific [place] 1.020 (1.001-1.035) Urine Protein TRACE (NEGATIVE) mg/dL Urine Glucose (UA) >=1000 (NEGATIVE) mg/dL Urine Ketones 15 H (NEGATIVE) mg/dL Urine Occult Blood NEGATIVE (NEGATIVE) Urine Nitrite NEGATIVE (NEGATIVE) Urine Bilirubin SMALL H (NEGATIVE) Urine Ictotest NEGATIVE Urine Urobilinogen 0.2 (<2.0) EU/dL Ur Leukocyte Esterase NEGATIVE (NEGATIVE) Urine RBC 0-1 (0-2/HPF) Urine WBC 0-1 (0-5/HPF) Ur Epithelial Cells MANY (NONE-FEW) Urine Bacteria FEW (NEGATIVE) Urine HCG, Qual NEGATIVE (NEGATIVE) 08/18/17 08/18/17 08/18/17 Range/Units 17:00 17:00 17:00 WBC (4.0-11.0) K/uL RBC (4.30-5.90) M/uL Hgb (12.0-16.0) g/dL Hct (36.0-46.0) % MCV (80.0-98.0) fL MCH (27.0-32.0) pg MCHC (31.0-37.0) g/dL RDW Std Deviation (28.0-62.0) fl RDW Coeff of Zak (11.0-15.0) % Plt Count (150-400) K/uL MPV (7.40-12.00) fL Neut % (Auto) (48.0-80.0) % Lymph % (Auto) (16.0-40.0) % Dickey % (Auto) (0.0-15.0) % Eos % (Auto) (0.0-7.0) % Baso % (Auto) (0.0-1.5) % Neut # (Auto) (1.4-5.7) K/uL Lymph # (Auto) (0.6-2.4) K/uL Dickey # (Auto) (0.0-0.8) K/uL Eos # (Auto) (0.0-0.7) K/uL Baso # (Auto) (0.0-0.1) K/uL Nucleated RBC % /100WBC Nucleated RBCs # K/uL ABG pH (7.35-7.45) ABG pCO2 (35-45) mmHG ABG pO2 (75-100) mmHG ABG HCO3 (22-26) mEq/L ABG Total CO2 ABG Base Excess (-2.0-2.0) Lactate 4.8 H (0.20-2.00) mmol/L Sodium 136 (136-146) mmol/L Potassium 4.6 (3.5-5.1) mmol/L Chloride 105 (98-110) mmol/L Carbon Dioxide 17 L (21-31) mmol/L BUN 19 (6.0-23.0) mg/dL Creatinine 0.8 (0.6-1.5) mg/dL Est Cr Clr Drug Dosing 83.20 mL/min Estimated GFR (MDRD) > 60.0 ml/min Glucose 317 H (60-110) mg/dL POC Glucose (60-110) mg/dL Calcium 9.6 (8.8-10.8) mg/dL Total Bilirubin 0.1 (0.1-1.5) mg/dL AST 25 (5-40) IU/L ALT 24 (8-54) IU/L Alkaline Phosphatase 145 (40-150) Total Protein 7.5 (6.0-8.0) g/dL Albumin 4.0 (3.5-5.0) g/dL Globulin 3.5 (2.0-3.5) g/dL Albumin/Globulin Ratio 1.1 L (1.3-2.8) Lipase < 9 (7-80) U/L Urine Color Urine Appearance Urine pH (5.0-8.0) Ur Specific [place] (1.001-1.035) Urine Protein (NEGATIVE) mg/dL Urine Glucose (UA) (NEGATIVE) mg/dL Urine Ketones (NEGATIVE) mg/dL Urine Occult Blood (NEGATIVE) Urine Nitrite (NEGATIVE) Urine Bilirubin (NEGATIVE) Urine Ictotest Urine Urobilinogen (<2.0) EU/dL Ur Leukocyte Esterase (NEGATIVE) Urine RBC (0-2/HPF) Urine WBC (0-5/HPF) Ur Epithelial Cells (NONE-FEW) Urine Bacteria (NEGATIVE) Urine HCG, Qual (NEGATIVE) 08/18/17 08/18/17 08/18/17 Range/Units 17:05 17:48 18:37 WBC (4.0-11.0) K/uL RBC (4.30-5.90) M/uL Hgb (12.0-16.0) g/dL Hct (36.0-46.0) % MCV (80.0-98.0) fL MCH (27.0-32.0) pg MCHC (31.0-37.0) g/dL RDW Std Deviation (28.0-62.0) fl RDW Coeff of Zak (11.0-15.0) % Plt Count (150-400) K/uL MPV (7.40-12.00) fL Neut % (Auto) (48.0-80.0) % Lymph % (Auto) (16.0-40.0) % Dickey % (Auto) (0.0-15.0) % Eos % (Auto) (0.0-7.0) % Baso % (Auto) (0.0-1.5) % Neut # (Auto) (1.4-5.7) K/uL Lymph # (Auto) (0.6-2.4) K/uL Dickey # (Auto) (0.0-0.8) K/uL Eos # (Auto) (0.0-0.7) K/uL Baso # (Auto) (0.0-0.1) K/uL Nucleated RBC % /100WBC Nucleated RBCs # K/uL ABG pH 7.375 (7.35-7.45) ABG pCO2 33 L (35-45) mmHG ABG pO2 85 (75-100) mmHG ABG HCO3 20 L (22-26) mEq/L ABG Total CO2 18.2 ABG Base Excess -5.0 L (-2.0-2.0) Lactate (0.20-2.00) mmol/L Sodium (136-146) mmol/L Potassium (3.5-5.1) mmol/L Chloride (98-110) mmol/L Carbon Dioxide (21-31) mmol/L BUN (6.0-23.0) mg/dL Creatinine (0.6-1.5) mg/dL Est Cr Clr Drug Dosing mL/min Estimated GFR (MDRD) ml/min Glucose (60-110) mg/dL POC Glucose 314 H 242 H (60-110) mg/dL Calcium (8.8-10.8) mg/dL Total Bilirubin (0.1-1.5) mg/dL AST (5-40) IU/L ALT (8-54) IU/L Alkaline Phosphatase (40-150) Total Protein (6.0-8.0) g/dL Albumin (3.5-5.0) g/dL Globulin (2.0-3.5) g/dL Albumin/Globulin Ratio (1.3-2.8) Lipase (7-80) U/L Urine Color Urine Appearance Urine pH (5.0-8.0) Ur Specific [place] (1.001-1.035) Urine Protein (NEGATIVE) mg/dL Urine Glucose (UA) (NEGATIVE) mg/dL Urine Ketones (NEGATIVE) mg/dL Urine Occult Blood (NEGATIVE) Urine Nitrite (NEGATIVE) Urine Bilirubin (NEGATIVE) Urine Ictotest Urine Urobilinogen (<2.0) EU/dL Ur Leukocyte Esterase (NEGATIVE) Urine RBC (0-2/HPF) Urine WBC (0-5/HPF) Ur Epithelial Cells (NONE-FEW) Urine Bacteria (NEGATIVE) Urine HCG, Qual (NEGATIVE) Meds: Medications Discontinued Medications Generic Name Dose Route Start Last Admin Trade Name Freq PRN Reason Stop Dose Admin Sodium Chloride 1,000 mls @ 999 mls/hr 08/18/17 16:54 08/18/17 17:48 Normal Saline IV 08/18/17 17:54 999 mls/hr STAT ONE Administration Insulin Human Regular 10 unit 08/18/17 17:52 08/18/17 18:05 Novolin R IVPUSH 08/18/17 17:53 10 unit ONETIME ONE Administration Protocol Morphine Sulfate 2 mg 08/18/17 18:40 Morphine IVPUSH 08/18/17 18:41 ONETIME ONE Ondansetron HCl 8 mg 08/18/17 16:54 08/18/17 18:06 Zofran IVPUSH 08/18/17 16:55 8 mg ONETIME ONE Administration Departure - Departure Time of Disposition: 18:47 Disposition: Home, Self-Care 01 Condition: Good Clinical Impression: Gastroparesis, Hyperglycemia, Dehydration Chronic pain Qualifiers: Chronic pain type: other chronic pain Qualified Code(s): G89.29 - Other chronic pain - Discharge Information Referrals: Maynor Black MD [Primary Care Provider] - Forms: ED Department Discharge Additional Instructions: The following information is given to patients seen in the emergency department who are being discharged to home. This information is to outline your options for follow-up care. We provide all patients seen in our emergency department with a follow-up referral. The need for follow-up, as well as the timing and circumstances, are variable depending upon the specifics of your emergency department visit. If you don't have a primary care physician on staff, we will provide you with a referral. We always advise you to contact your personal physician following an emergency department visit to inform them of the circumstance of the visit and for follow-up with them and/or the need for any referrals to a consulting specialist. The emergency department will also refer you to a specialist when appropriate. This referral assures that you have the opportunity for follow-up care with a specialist. All of these measure are taken in an effort to provide you with optimal care, which includes your follow-up. Under all circumstances we always encourage you to contact your private physician who remains a resource for coordinating your care. When calling for follow-up care, please make the office aware that this follow-up is from your recent emergency room visit. If for any reason you are refused follow-up, please contact the [facility] emergency department at and asked to speak to the emergency department charge nurse. - My Orders Last 24 Hours: My Active Orders 08/18/17 16:55 Chest 1V Frontal [CR] Stat 08/18/17 17:12 Blood Culture x2 Reflex Set [OM.PC] Stat 08/18/17 17:29 CULTURE BLOOD [BC] Stat 08/18/17 17:33 EKG Documentation Completion [RC] STAT 08/18/17 17:45 Accu Check [Blood Glucose Check, Bedside] [RC] ONETIME CULTURE BLOOD [BC] Stat - Assessment/Plan Last 24 Hours: My Active Orders 08/18/17 16:55 Chest 1V Frontal [CR] Stat 08/18/17 17:12 Blood Culture x2 Reflex Set [OM.PC] Stat 08/18/17 17:29 CULTURE BLOOD [BC] Stat 08/18/17 17:33 EKG Documentation Completion [RC] STAT 08/18/17 17:45 Accu Check [Blood Glucose Check, Bedside] [RC] ONETIME CULTURE BLOOD [BC] Stat
[2017-08-18 17:21] LABS: CHLORIDE,CL 105 mmol/L (98-110); SODIUM,NA 136 mmol/L (136-146)
[2017-08-18] MEDS ORDERED: Insulin Regular, Human 100 Units/ML 10 ML Vial IVPUSH ONE (17:52)
[2017-08-18] MEDS ORDERED: Morphine 2 MG/ML Syringe IVPUSH ONE (18:40)
[2017-08-18 21:01] VITALS: BP 110/78
--- NOTE | 2017-08-20 17:51 | CR ---
EXAM DATE: 08/18/17 PATIENT'S AGE: 26 Patient: ALEXSANDER DUMONT Facility: [place], [place] Site . Site : 1990 Study: XRay Chest [id number] 6:09:05 PM Ordering Physician: Jun Hernandez Final Report: INDICATION: Pain and SOB. TECHNIQUE: AP image of the chest. COMPARISON: 05/28/2017. FINDINGS: Lungs and pleural spaces clear. Heart, mediastinum and pulmonary vessels normal. No significant osseous abnormality. IMPRESSION: Negative chest. Dictated by Lopez Ramirez MD @ Aug 18 2017 6:48PM (Electronic Signature) Report Signed by Proxy. VALERIO
== END 2017-08-18 19:20 | disposition home or self-care (01) ==
LOC: MW.ED 16:02
DX: M80.88XA Other osteoporosis with current pathological fracture, vertebra(e), initial encounter for fracture (principal); E10.43 Type 1 diabetes mellitus with diabetic autonomic (poly)neuropathy; E10.65 Type 1 diabetes mellitus with hyperglycemia; K31.84 Gastroparesis; E86.0 Dehydration; F32.9 Major depressive disorder, single episode, unspecified; F17.210 Nicotine dependence, cigarettes, uncomplicated; Z79.4 Long term (current) use of insulin; Z88.1 Allergy status to other antibiotic agents; Z88.5 Allergy status to narcotic agent; Z88.6 Allergy status to analgesic agent; Z88.8 Allergy status to other drugs, medicaments and biological substances
CPT/HCPCS: 36415; 36600; 71045; 80053; 81001; 81025; 82803; 82962; 83605; 83690; 85025; 87040; 93005; 96361; 96374; 96375; 99284; J2270; J2405; J7040; J1815-GY

== ENCOUNTER 2018-03-18 09:37 | Emergency (ER) | payer MEDICAID ==
[2018-03-18] MEDS ORDERED: Insulin Regular, Human 100 Units/ML 10 ML Vial SUBCUT STA ×2 (09:50→09:56)
[2018-03-18] MEDS ORDERED: Sodium Chloride 0.9% 1,000 ML IV ONE (09:50)
--- NOTE | 2018-03-18 09:52 | EDM.PDOC ---
ED HPI GENERAL MEDICAL PROBLEM - General Stated Complaint: BACK AND STOMACH HURTS Time Seen by Provider: 03/18/18 09:52 Source of Information: Reports: Patient - History of Present Illness INITIAL COMMENTS - FREE TEXT/NARRATIVE: HISTORY AND PHYSICAL: History of present illness: [Patient presents with abdominal pain she states her glucose was 600 earlier today, she states she took 6 units of insulin which has brought her to 285, this would be inconsistent with her usual history however she is in no distress she rates pain 7 out of 10 no pain behavior elicited No fever nausea vomiting chills sweats no chest pain shortness breath headache dizziness or palpitation no bowel or urine symptoms ] Review of systems: As per history of present illness and below otherwise all systems reviewed and negative. Past medical history: As per history of present illness and as reviewed below otherwise noncontributory. Surgical history: As per history of present illness and as reviewed below otherwise noncontributory. Social history: No reported history of drug or alcohol abuse. Family history: As per history of present illness and as reviewed below otherwise noncontributory. Physical exam: HEENT: Atraumatic, normocephalic, pupils reactive, negative for conjunctival pallor or scleral icterus, mucous membranes moist, throat clear, neck supple, nontender, trachea midline. Lungs: Clear to auscultation, breath sounds equal bilaterally, chest nontender. Heart: S1S2, regular, negative for clicks, rubs, or JVD. Abdomen: Soft, nondistended, nontender. Negative for masses or hepatosplenomegaly. Negative for costovertebral tenderness. Pelvis: Stable nontender. Genitourinary: Deferred. Rectal: Deferred. Extremities: Atraumatic, negative for cords or calf pain. Neurovascular unremarkable. Neuro: Awake, alert, oriented. Cranial nerves II through XII unremarkable. Cerebellum unremarkable. Motor and sensory unremarkable throughout. Exam nonfocal. Diagnostics: [CBC CMP UA hCG blood cultures 2 Accu-Chek ABG initial suspected to be a venous sample, repeat is normal Chest 1 view ] Therapeutics: [One liter normal saline bolus Regular insulin 5 units subcutaneous ]Morphine 2 mg IV Zofran 8 mg IV Benadryl 50 mg IV Impression: [ hyper glycemia Chronic history of baseline ] Definitive disposition and diagnosis as appropriate pending reevaluation and review of above. Lower Back Pain Score (Numeric/FACES): 10 - Related Data Allergies Allergy/AdvReac Type Severity Reaction Status Date / Time acetaminophen [From Tylenol] Allergy Liver Verified 03/18/18 09:58 Problems amoxicillin Allergy Hives Verified 03/18/18 09:58 amoxicillin trihydrate Allergy Hives Verified 03/18/18 09:58 [From Amoxil] ibuprofen Allergy Liver Verified 03/18/18 09:58 Problems ketorolac tromethamine Allergy Hives Verified 03/18/18 09:58 [From Toradol] metoclopramide HCl Allergy Airway Verified 03/18/18 09:58 [From Reglan] Tightness tramadol Allergy Hives Verified 03/18/18 09:58 haldol Allergy Swelling Uncoded 03/18/18 09:58 Home Meds: Home Meds LORazepam [Ativan] 1 mg PO TID PRN 03/24/16 [History] Ondansetron [Ondansetron ODT] 8 mg PO QID PRN 04/19/16 [History] Insulin Aspart [Novolog Flexpen] 16 - 20 unit SUBCUT QIDACANDBED 05/15/16 [ History] Cholecalciferol (Vitamin D3) [Dialyvite Vitamin D3 Max] 50,000 unit PO BID 03/18 [History] Insulin Degludec [Tresiba Flextouch U-100] 46 units SQ DAILY 03/18/18 [History] Morphine [MS Contin] 100 mg PO BID 03/18/18 [History] Past Medical History - Past Health History Medical/Surgical History: Denies Medical/Surgical History HEENT History: Reports: Allergic Rhinitis Other HEENT History: dental abcess Cardiovascular History: Reports: None Respiratory History: Reports: Asthma Gastrointestinal History: Reports: GI Bleed, Hepatitis, PUD, Other (See Below) Other Gastrointestinal History: hx of C-diff, hx of Hepatitis B Genitourinary History: Reports: UTI, Recurrent Other Genitourinary History: current UTI [employer] 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: Other (See Below) 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 [employer] 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 History: had miscarriage twice Musculoskeletal History: Reports: Back Pain, Chronic Neurological History: Reports: Migraines, Other (See Below) 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 Psychiatric History: Reports: Anxiety, Depression Endocrine/Metabolic History: Reports: Diabetes, Type I Other Endocrine/Metabolic History: recurrent admission for DKA Hematologic History: Reports: Anemia, Blood Transfusion(s) Immunologic History: Reports: None Oncologic (Cancer) History: Reports: None Dermatologic History: Reports: Other (See Below) Other Dermatologic History: wound dishiscence causing port removal R upper chest --dehiscence from inadequate diet - Infectious Disease History Infectious Disease History: Reports: Chicken Pox - Past Surgical History Head Surgeries/Procedures: Reports: None HEENT Surgical History: Reports: Tonsillectomy Cardiovascular Surgical History: Reports: None Respiratory Surgical History: Reports: None GI Surgical History: Reports: Appendectomy, Cholecystectomy, ERCP Female Surgical History: Reports: None Endocrine Surgical History: Reports: None Neurological Surgical History: Reports: None Musculoskeletal Surgical History: Reports: None Oncologic Surgical History: Reports: None Dermatological Surgical History: Reports: None - History Comment History Comment: She has had over [address] scans in the last 4 years. Social & Family History - Family History Family Medical History: Noncontributory HEENT: Reports: Impaired Vision Cardiac: Reports: Heart Failure Respiratory: Reports: Asthma GI: Reports: None : Reports: Renal Disease/Insufficiency OBGYN: Reports: Musculoskeletal: Reports: Back pain, Chronic Neurological: Reports: Seizure Psychiatric: Reports: None Endocrine/Metabolic: Reports: Diabetes, Type I Hematologic: Reports: None Immunologic: Reports: None Dermatologic: Reports: None Oncologic: Reports: Breast, Cervix - Caffeine Use Caffeine Use: Reports: None - Living Situation & Occupation Living situation: Reports: with Significant Other, with Family, Other Occupation: Unemployed ED ROS GENERAL - Review of Systems Review Of Systems: See Below ED EXAM, GENERAL - Physical Exam Exam: See Below Course - Vital Signs Last Recorded V/S: Last Vital Signs Temp 98.2 F 03/18/18 09:54 Pulse 122 H 03/18/18 09:54 Resp 18 03/18/18 09:54 BP 140/108 H 03/18/18 09:54 Pulse Ox 96 03/18/18 09:54 - Orders/Labs/Meds Orders: Active Orders 24 hr Category Date Time Status EKG Documentation Completion [RC] STAT Care 03/18/18 10:05 Active CULTURE BLOOD [BC] Stat Lab 03/18/18 10:12 Received CULTURE BLOOD [BC] Stat Lab 03/18/18 10:25 Received Blood Culture x2 Reflex Set [OM.PC] Stat Oth 03/18/18 09:51 Ordered Labs: Laboratory Tests 03/18/18 03/18/18 03/18/18 Range/Units 09:53 10:12 10:12 WBC 7.98 (4.0-11.0) K/uL RBC 5.18 (4.30-5.90) M/uL Hgb 11.5 L (12.0-16.0) g/dL Hct 36.8 (36.0-46.0) % MCV 71.0 L (80.0-98.0) fL MCH 22.2 L (27.0-32.0) pg MCHC 31.3 (31.0-37.0) g/dL RDW Std Deviation 46.9 (28.0-62.0) fl RDW Coeff of Zak 18 H (11.0-15.0) % Plt Count 319 (150-400) K/uL MPV 9.80 (7.40-12.00) fL Neut % (Auto) 68.8 (48.0-80.0) % Lymph % (Auto) 25.6 (16.0-40.0) % [place] % (Auto) 4.3 (0.0-15.0) % Eos % (Auto) 0.8 (0.0-7.0) % Baso % (Auto) 0.5 (0.0-1.5) % Neut # (Auto) 5.5 (1.4-5.7) K/uL Lymph # (Auto) 2.0 (0.6-2.4) K/uL [place] # (Auto) 0.3 (0.0-0.8) K/uL Eos # (Auto) 0.1 (0.0-0.7) K/uL Baso # (Auto) 0.0 (0.0-0.1) K/uL Nucleated RBC % 0.0 /100WBC Nucleated RBCs # 0 K/uL ABG pH (7.35-7.45) ABG pCO2 (35-45) mmHG ABG pO2 (75-100) mmHG ABG HCO3 (22-26) mEq/L ABG Total CO2 ABG Base Excess (-2.0-2.0) Sodium 135 L (136-145) mmol/L Potassium 4.0 (3.5-5.1) mmol/L Chloride 100 (98-107) mmol/L Carbon Dioxide 21.5 (21.0-32.0) mmol/L BUN 14 (7.0-18.0) mg/dL Creatinine 0.8 (0.6-1.0) mg/dL Est Cr Clr Drug Dosing 75.20 mL/min Estimated GFR (MDRD) > 60.0 ml/min Glucose 284 H (74-106) mg/dL POC Glucose 285 H (60-110) mg/dL Calcium 9.9 (8.5-10.1) mg/dL Total Bilirubin 0.2 (0.2-1.0) mg/dL AST 29 (15-37) IU/L ALT 37 (14-63) IU/L Alkaline Phosphatase 142 H (46-116) U/L Troponin I < 0.050 (0.000-0.056) ng/mL Total Protein 8.4 H (6.4-8.2) g/dL Albumin 4.2 (3.4-5.0) g/dL Globulin 4.2 H (2.0-3.5) g/dL Albumin/Globulin Ratio 1.0 L (1.3-2.8) Urine Color Urine Appearance Urine pH (5.0-8.0) Ur Specific [place] (1.001-1.035) Urine Protein (NEGATIVE) mg/dL Urine Glucose (UA) (NEGATIVE) mg/dL Urine Ketones (NEGATIVE) mg/dL Urine Occult Blood (NEGATIVE) Urine Nitrite (NEGATIVE) Urine Bilirubin (NEGATIVE) Urine Urobilinogen (<2.0) EU/dL Ur Leukocyte Esterase (NEGATIVE) Urine RBC (0-2/HPF) Urine WBC (0-5/HPF) Ur Epithelial Cells (NONE-FEW) Amorphous Sediment (NEGATIVE) Urine Bacteria (NEGATIVE) Urine HCG, Qual (NEGATIVE) 03/18/18 03/18/18 03/18/18 Range/Units 10:30 10:30 10:39 WBC (4.0-11.0) K/uL RBC (4.30-5.90) M/uL Hgb (12.0-16.0) g/dL Hct (36.0-46.0) % MCV (80.0-98.0) fL MCH (27.0-32.0) pg MCHC (31.0-37.0) g/dL RDW Std Deviation (28.0-62.0) fl RDW Coeff of Zak (11.0-15.0) % Plt Count (150-400) K/uL MPV (7.40-12.00) fL Neut % (Auto) (48.0-80.0) % Lymph % (Auto) (16.0-40.0) % [place] % (Auto) (0.0-15.0) % Eos % (Auto) (0.0-7.0) % Baso % (Auto) (0.0-1.5) % Neut # (Auto) (1.4-5.7) K/uL Lymph # (Auto) (0.6-2.4) K/uL [place] # (Auto) (0.0-0.8) K/uL Eos # (Auto) (0.0-0.7) K/uL Baso # (Auto) (0.0-0.1) K/uL Nucleated RBC % /100WBC Nucleated RBCs # K/uL ABG pH 7.447 (7.35-7.45) ABG pCO2 38 (35-45) mmHG ABG pO2 34 L* (75-100) mmHG ABG HCO3 26 (22-26) mEq/L ABG Total CO2 24.1 ABG Base Excess 2.0 (-2.0-2.0) Sodium (136-145) mmol/L Potassium (3.5-5.1) mmol/L Chloride (98-107) mmol/L Carbon Dioxide (21.0-32.0) mmol/L BUN (7.0-18.0) mg/dL Creatinine (0.6-1.0) mg/dL Est Cr Clr Drug Dosing mL/min Estimated GFR (MDRD) ml/min Glucose (74-106) mg/dL POC Glucose (60-110) mg/dL Calcium (8.5-10.1) mg/dL Total Bilirubin (0.2-1.0) mg/dL AST (15-37) IU/L ALT (14-63) IU/L Alkaline Phosphatase (46-116) U/L Troponin I (0.000-0.056) ng/mL Total Protein (6.4-8.2) g/dL Albumin (3.4-5.0) g/dL Globulin (2.0-3.5) g/dL Albumin/Globulin Ratio (1.3-2.8) Urine Color YELLOW Urine Appearance CLEAR Urine pH 7.5 (5.0-8.0) Ur Specific [place] 1.010 (1.001-1.035) Urine Protein NEGATIVE (NEGATIVE) mg/dL Urine Glucose (UA) >=1000 (NEGATIVE) mg/dL Urine Ketones NEGATIVE (NEGATIVE) mg/dL Urine Occult Blood TRACE-INTACT (NEGATIVE) Urine Nitrite NEGATIVE (NEGATIVE) Urine Bilirubin NEGATIVE (NEGATIVE) Urine Urobilinogen 0.2 (<2.0) EU/dL Ur Leukocyte Esterase TRACE (NEGATIVE) Urine RBC NONE SEEN (0-2/HPF) Urine WBC 0-1 (0-5/HPF) Ur Epithelial Cells RARE (NONE-FEW) Amorphous Sediment RARE (NEGATIVE) Urine Bacteria RARE (NEGATIVE) Urine HCG, Qual NEGATIVE (NEGATIVE) 03/18/18 Range/Units 12:13 WBC (4.0-11.0) K/uL RBC (4.30-5.90) M/uL Hgb (12.0-16.0) g/dL Hct (36.0-46.0) % MCV (80.0-98.0) fL MCH (27.0-32.0) pg MCHC (31.0-37.0) g/dL RDW Std Deviation (28.0-62.0) fl RDW Coeff of Zak (11.0-15.0) % Plt Count (150-400) K/uL MPV (7.40-12.00) fL Neut % (Auto) (48.0-80.0) % Lymph % (Auto) (16.0-40.0) % [place] % (Auto) (0.0-15.0) % Eos % (Auto) (0.0-7.0) % Baso % (Auto) (0.0-1.5) % Neut # (Auto) (1.4-5.7) K/uL Lymph # (Auto) (0.6-2.4) K/uL [place] # (Auto) (0.0-0.8) K/uL Eos # (Auto) (0.0-0.7) K/uL Baso # (Auto) (0.0-0.1) K/uL Nucleated RBC % /100WBC Nucleated RBCs # K/uL ABG pH 7.461 H (7.35-7.45) ABG pCO2 34 L (35-45) mmHG ABG pO2 89 (75-100) mmHG ABG HCO3 24 (22-26) mEq/L ABG Total CO2 22.2 ABG Base Excess 0.7 (-2.0-2.0) Sodium (136-145) mmol/L Potassium (3.5-5.1) mmol/L Chloride (98-107) mmol/L Carbon Dioxide (21.0-32.0) mmol/L BUN (7.0-18.0) mg/dL Creatinine (0.6-1.0) mg/dL Est Cr Clr Drug Dosing mL/min Estimated GFR (MDRD) ml/min Glucose (74-106) mg/dL POC Glucose (60-110) mg/dL Calcium (8.5-10.1) mg/dL Total Bilirubin (0.2-1.0) mg/dL AST (15-37) IU/L ALT (14-63) IU/L Alkaline Phosphatase (46-116) U/L Troponin I (0.000-0.056) ng/mL Total Protein (6.4-8.2) g/dL Albumin (3.4-5.0) g/dL Globulin (2.0-3.5) g/dL Albumin/Globulin Ratio (1.3-2.8) Urine Color Urine Appearance Urine pH (5.0-8.0) Ur Specific [place] (1.001-1.035) Urine Protein (NEGATIVE) mg/dL Urine Glucose (UA) (NEGATIVE) mg/dL Urine Ketones (NEGATIVE) mg/dL Urine Occult Blood (NEGATIVE) Urine Nitrite (NEGATIVE) Urine Bilirubin (NEGATIVE) Urine Urobilinogen (<2.0) EU/dL Ur Leukocyte Esterase (NEGATIVE) Urine RBC (0-2/HPF) Urine WBC (0-5/HPF) Ur Epithelial Cells (NONE-FEW) Amorphous Sediment (NEGATIVE) Urine Bacteria (NEGATIVE) Urine HCG, Qual (NEGATIVE) Meds: Medications Discontinued Medications Generic Name Dose Route Start Last Admin Trade Name Freq PRN Reason Stop Dose Admin Diphenhydramine HCl 50 mg 03/18/18 11:19 03/18/18 11:24 Benadryl IVPUSH 03/18/18 11:20 50 mg ONETIME ONE Administration Sodium Chloride 1,000 mls @ 999 mls/hr 03/18/18 09:50 03/18/18 10:17 Normal Saline IV 03/18/18 10:50 999 mls/hr STAT ONE Administration Insulin Human Regular 10 unit 03/18/18 09:50 03/18/18 10:16 Novolin R SUBCUT 03/18/18 09:51 Not Given NOW STA Protocol Insulin Human Regular 5 unit 03/18/18 09:56 03/18/18 10:18 Novolin R SUBCUT 03/18/18 09:57 5 units NOW STA Administration Protocol Morphine Sulfate 2 mg 03/18/18 10:48 03/18/18 11:03 Morphine IVPUSH 03/18/18 10:49 2 mg ONETIME ONE Administration Ondansetron HCl 8 mg 03/18/18 10:49 03/18/18 11:02 Zofran IVPUSH 03/18/18 10:50 8 mg ONETIME ONE Administration Departure - Departure Time of Disposition: 12:30 Disposition: Home, Self-Care 01 Condition: Good Clinical Impression: Hyperglycemia - Discharge Information Referrals: PCP,None [Primary Care Provider] - Additional Instructions: The following information is given to patients seen in the emergency department who are being discharged to home. This information is to outline your options for follow-up care. We provide all patients seen in our emergency department with a follow-up referral. The need for follow-up, as well as the timing and circumstances, are variable depending upon the specifics of your emergency department visit. If you don't have a primary care physician on staff, we will provide you with a referral. We always advise you to contact your personal physician following an emergency department visit to inform them of the circumstance of the visit and for follow-up with them and/or the need for any referrals to a consulting specialist. The emergency department will also refer you to a specialist when appropriate. This referral assures that you have the opportunity for follow-up care with a specialist. All of these measure are taken in an effort to provide you with optimal care, which includes your follow-up. Under all circumstances we always encourage you to contact your private physician who remains a resource for coordinating your care. When calling for follow-up care, please make the office aware that this follow-up is from your recent emergency room visit. If for any reason you are refused follow-up, please contact the [facility] emergency department at and asked to speak to the emergency department charge nurse. - My Orders Last 24 Hours: My Active Orders 03/18/18 09:51 Blood Culture x2 Reflex Set [OM.PC] Stat 03/18/18 10:05 EKG Documentation Completion [RC] STAT 03/18/18 10:12 CULTURE BLOOD [BC] Stat 03/18/18 10:25 CULTURE BLOOD [BC] Stat - Assessment/Plan Last 24 Hours: My Active Orders 03/18/18 09:51 Blood Culture x2 Reflex Set [OM.PC] Stat 03/18/18 10:05 EKG Documentation Completion [RC] STAT 03/18/18 10:12 CULTURE BLOOD [BC] Stat 03/18/18 10:25 CULTURE BLOOD [BC] Stat
[2018-03-18] MEDS ORDERED: Morphine 2 MG/ML Syringe IVPUSH ONE (10:48)
[2018-03-18] MEDS ORDERED: Ondansetron 4 MG/2 ML SDV IVPUSH ONE (10:49)
[2018-03-18 11:15] LABS: CHLORIDE,CL 100 mmol/L (98-107); SODIUM,NA 135 mmol/L (136-145)
[2018-03-18] MEDS ORDERED: diphenhydrAMINE 50 MG/ML SDV IVPUSH ONE (11:19)
--- NOTE | 2018-03-18 11:52 | CR ---
EXAMINATION: Portable chest radiograph. HISTORY: Shortness of breath. FINDINGS: The trachea is midline. The cardiomediastinal silhouette is within normal limits. No pulmonary infilt rates, effusions or pneumothorax. Osseous structures appear unremarkable. IMPRESSION: No acute cardiopulmonary process.
[2018-03-18 14:15] VITALS: BP 150/92
== END 2018-03-18 12:45 | disposition home or self-care (01) ==
LOC: MW.ED 09:37
DX: E10.65 Type 1 diabetes mellitus with hyperglycemia (principal); J45.909 Unspecified asthma, uncomplicated; Z88.8 Allergy status to other drugs, medicaments and biological substances; Z79.4 Long term (current) use of insulin; Z79.899 Other long term (current) drug therapy; Z79.891 Long term (current) use of opiate analgesic
CPT/HCPCS: 36415; 36600; 71045; 80053; 81001; 81025; 82803; 82962; 84484; 85025; 87040; 93005; 96361; 96374; 96375; 99284; J1200; J2270; J2405; J7040; J1815-GY

== ENCOUNTER 2018-08-13 23:51 | Emergency (ER) | payer MEDICAID ==
[2018-08-14] MEDS ORDERED: Sodium Chloride 0.9% 1,000 ML IV ONE ×2 (00:03→01:58)
[2018-08-14] MEDS ORDERED: Sodium Chloride 0.9% 2.5 ML Syringe FLUSH PRN (00:04)
[2018-08-14] MEDS ORDERED: Sodium Chloride 0.9% 10 ML Syringe FLUSH PRN (00:04)
[2018-08-14] MEDS ORDERED: Insulin Regular, Human 100 Units/ML 10 ML Vial SUBCUT ONE ×2 (00:05→02:19)
--- NOTE | 2018-08-14 00:08 | EDM.PDOC ---
ED HPI GENERAL MEDICAL PROBLEM - General Chief Complaint: Behavioral/Psych Stated Complaint: PT HAS HIGH SUGAR LEVEL Time Seen by Provider: 08/14/18 00:01 - History of Present Illness INITIAL COMMENTS - FREE TEXT/NARRATIVE: HISTORY AND PHYSICAL: History of present illness: The patient is a 27-year-old female who is well-known to this emergency department and this provider for type 1 diabetes and multiple admissions for every glycemia and ketoacidosis who presents with EMS and police for sending text messages threatening to harm herself. The patient tells me that her boyfriend "needs space " and this made her very depressed so she started sending those text messages. The text messages basically stated that she didn't need to be alive anymore and that it was just better to end it and she started saying goodbye to people. The employment officer had them on his cell phone and showed these to me. She has a history of the noncompliance with her diabetes and says that her blood sugar has been running high for the last 4 days. EMS noted to be very elevated and brought here for medical evaluation. Patient denies any chest pain fever chills shortness of breath or abdominal complaints and has been drinking a lot of water and making a lot of urine. She says she has been trying to be compliant with her meds but because she is so sad and depressed it is hard. She is tearful on my evaluation and is not very forthcoming about information and says she is not sure why she sent those text messages. She said it was mostly because she is so depressed. The employment officer at bedside has told me that this patient is still living with her father and her sister and that her father has expressed to them that they think that she needs help for this severe depression and her disconnection with her medical condition and how she does not take care of herself. Review of systems: As per history of present illness and below otherwise all systems reviewed and negative. Past medical history: As per history of present illness and as reviewed below otherwise noncontributory. Surgical history: As per history of present illness and as reviewed below otherwise noncontributory. Social history: No reported history of drug or alcohol abuse. Family history: As per history of present illness and as reviewed below otherwise noncontributory. Physical exam: HEENT: Atraumatic, normocephalic, pupils reactive, negative for conjunctival pallor or scleral icterus, mucous membranes tacky, throat clear, neck supple, nontender, trachea midline. There is no smell of ketones on her breath Lungs: Clear to auscultation, breath sounds equal bilaterally, chest nontender. Heart: S1S2, regular rhythm slightly tachycardic rate on my evaluation Abdomen: Soft, nondistended, nontender. Negative for masses or hepatosplenomegaly. Negative for costovertebral tenderness. Pelvis: Stable nontender. Genitourinary: Deferred. Rectal: Deferred. Extremities: Atraumatic, negative for cords or calf pain. Neurovascular unremarkable. Neuro: Awake, alert, oriented. Cranial nerves II through XII unremarkable. Cerebellum unremarkable. Motor and sensory unremarkable throughout. Exam nonfocal. Diagnostics: CBC CMP venous blood gas alcohol level. UCG UDS serum ketones TSH hemoglobin A1c Therapeutics: IV fluids subcutaneous insulin 0215: SHe was asleep when I went back to discuss her lab tests values and she is aware of her grossly elevated blood sugar without ketosis and her elevated TSH that needs further medical evaluation. At the time of this particular note her hemoglobin A1c is still pending. She is tearful about needing a transfer but I told her that she needs medical management and we do not have a bed available here for admission as the hospital is full and she subsequently will need psychiatric evaluation. I discussed the case with Dr. Shi at [facility] and he accepts the patient for transfer at this time. I performed the emergency senior care paperwork Impression: hyperglycemia, history of poorly compliant type 1 diabetes; depression with suicidal ideation Definitive disposition and diagnosis as appropriate pending reevaluation and review of above. denies pain Pain Score (Numeric/FACES): 0 - Related Data Allergies Allergy/AdvReac Type Severity Reaction Status Date / Time acetaminophen [From Tylenol] Allergy Liver Verified 08/14/18 00:51 Problems amoxicillin Allergy Hives Verified 08/14/18 00:51 amoxicillin trihydrate Allergy Hives Verified 08/14/18 00:51 [From Amoxil] ibuprofen Allergy Liver Verified 08/14/18 00:51 Problems ketorolac tromethamine Allergy Hives Verified 08/14/18 00:51 [From Toradol] metoclopramide HCl Allergy Airway Verified 08/14/18 00:51 [From Reglan] Tightness tramadol Allergy Hives Verified 08/14/18 00:51 haldol Allergy Swelling Uncoded 08/14/18 00:51 Home Meds: Home Meds LORazepam [Ativan] 1 mg PO TID PRN 03/24/16 [History] Ondansetron [Ondansetron ODT] 8 mg PO QID PRN 04/19/16 [History] Insulin Aspart [Novolog Flexpen] 16 - 20 unit SUBCUT QIDACANDBED 05/15/16 [ History] Cholecalciferol (Vitamin D3) [Dialyvite Vitamin D3 Max] 50,000 unit PO WEEKLY [History] Insulin Degludec [Tresiba Flextouch U-100] 22 units SQ DAILY 03/18/18 [History] Morphine [MS Contin] 60 mg PO BID 03/18/18 [History] Morphine 1 tab PO QID PRN 06/27/18 [History] levETIRAcetam [Keppra] 1 tab PO BID 06/27/18 [History] Budesonide/Formoterol Fumarate [Symbicort 160-4.5 Mcg Inhaler] 1 puff IH BID [History] FLUoxetine HCl [Fluoxetine HCl] 20 mg PO DAILY 06/28/18 [History] Levothyroxine 112 mcg PO ACBREAKFAST 06/28/18 [History] Rosuvastatin [Crestor] 5 mg PO BEDTIME 06/28/18 [History] Past Medical History - Past Health History Medical/Surgical History: Denies Medical/Surgical History HEENT History: Reports: Allergic Rhinitis Other HEENT History: dental abcess Cardiovascular History: Reports: None Respiratory History: Reports: Asthma Gastrointestinal History: Reports: GI Bleed, Hepatitis, PUD, Other (See Below) Other Gastrointestinal History: hx of C-diff, hx of Hepatitis B Genitourinary History: Reports: UTI, Recurrent Other Genitourinary History: current UTI [employer]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: Other (See Below) 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 History: had miscarriage twice Musculoskeletal History: Reports: Back Pain, Chronic, Fracture Neurological History: Reports: Migraines, Seizure, Other (See Below) 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 Psychiatric History: Reports: Anxiety, Depression Endocrine/Metabolic History: Reports: Diabetes, Type I, Hypothyroidism Other Endocrine/Metabolic History: recurrent admission for DKA Hematologic History: Reports: Anemia, Blood Transfusion(s) Immunologic History: Reports: None Oncologic (Cancer) History: Reports: None Dermatologic History: Reports: Other (See Below) Other Dermatologic History: wound dishiscence causing port removal R upper chest --dehiscence from inadequate diet - Infectious Disease History Infectious Disease History: Reports: C-Difficile, Hepatitis B - Past Surgical History Head Surgeries/Procedures: Reports: None HEENT Surgical History: Reports: Tonsillectomy Cardiovascular Surgical History: Reports: None Respiratory Surgical History: Reports: None GI Surgical History: Reports: Appendectomy, Cholecystectomy, ERCP Female Surgical History: Reports: None Endocrine Surgical History: Reports: None Neurological Surgical History: Reports: None Musculoskeletal Surgical History: Reports: None Oncologic Surgical History: Reports: None Dermatological Surgical History: Reports: None - History Comment History Comment: She has had over [address] scans in the last 4 years. Social & Family History - Family History Family Medical History: Noncontributory HEENT: Reports: Impaired Vision Cardiac: Reports: Heart Failure Respiratory: Reports: Asthma GI: Reports: None : Reports: Renal Disease/Insufficiency OBGYN: Reports: Musculoskeletal: Reports: Back pain, Chronic Neurological: Reports: Seizure Psychiatric: Reports: None Endocrine/Metabolic: Reports: Diabetes, Type I Hematologic: Reports: None Immunologic: Reports: None Dermatologic: Reports: None Oncologic: Reports: Breast, Cervix - Caffeine Use Caffeine Use: Reports: Coffee, Soda Caffeine Use Comment: approximately 1 drink/day - Living Situation & Occupation Living situation: Reports: with Significant Other, with Family, Other Occupation: Unemployed ED ROS GENERAL - Review of Systems Review Of Systems: ROS reveals no pertinent complaints other than HPI. ED EXAM, GENERAL - Physical Exam Exam: See Below (see dictation) Course - Vital Signs Last Recorded V/S: Last Vital Signs Temp 36.5 C 08/14/18 00:00 Pulse 114 H 08/14/18 00:00 Resp 20 08/14/18 00:00 BP 125/88 08/14/18 00:00 Pulse Ox 94 L 08/14/18 00:00 - Orders/Labs/Meds Orders: Active Orders 24 hr Category Date Time Status Insulin Regular, Human [NovoLIN R] Med 08/14/18 02:19 Once 15 unit SUBCUT ONETIME ONE Sodium Chloride 0.9% [Normal Saline] 1,000 ml Med 08/14/18 01:58 Active IV STAT Sodium Chloride 0.9% [Saline Flush] Med 08/14/18 00:04 Active 10 ml FLUSH ASDIRECTED PRN Sodium Chloride 0.9% [Saline Flush] Med 08/14/18 00:04 Active 2.5 ml FLUSH ASDIRECTED PRN Saline Lock Insert [OM.PC] Stat Oth 08/14/18 00:01 Ordered Medication Orders Sodium Chloride (Normal Saline) 1,000 mls @ 999 mls/hr IV STAT ONE Stop: 08/14/18 02:58 Sodium Chloride (Saline Flush) 10 ml FLUSH ASDIRECTED PRN PRN Reason: Keep Vein Open Sodium Chloride (Saline Flush) 2.5 ml FLUSH ASDIRECTED PRN PRN Reason: Keep Vein Open Labs: Laboratory Tests 08/13/18 08/13/18 08/13/18 Range/Units 23:55 23:55 23:58 WBC (4.0-11.0) K/uL RBC (4.30-5.90) M/uL Hgb (12.0-16.0) g/dL Hct (36.0-46.0) % MCV (80.0-98.0) fL MCH (27.0-32.0) pg MCHC (31.0-37.0) g/dL RDW Std Deviation (28.0-62.0) fl RDW Coeff of Zak (11.0-15.0) % Plt Count (150-400) K/uL MPV (7.40-12.00) fL Neut % (Auto) (48.0-80.0) % Lymph % (Auto) (16.0-40.0) % [place] % (Auto) (0.0-15.0) % Eos % (Auto) (0.0-7.0) % Baso % (Auto) (0.0-1.5) % Neut # (Auto) (1.4-5.7) K/uL Lymph # (Auto) (0.6-2.4) K/uL [place] # (Auto) (0.0-0.8) K/uL Eos # (Auto) (0.0-0.7) K/uL Baso # (Auto) (0.0-0.1) K/uL Nucleated RBC % /100WBC Nucleated RBCs # K/uL VBG pH (7.31-7.41) VBG pCO2 (35-45) mmHG VBG pO2 (30-40) mmHG VBG HCO3 (22-30) mEq/L VBG Total CO2 (41-51) mmol/L VBG Base Excess (-3.0-3.0) Sodium (136-145) mmol/L Potassium (3.5-5.1) mmol/L Chloride (98-107) mmol/L Carbon Dioxide (21.0-32.0) mmol/L BUN (7.0-18.0) mg/dL Creatinine (0.6-1.0) mg/dL Est Cr Clr Drug Dosing mL/min Estimated GFR (MDRD) ml/min Glucose (74-106) mg/dL Hemoglobin A1c (4.5-6.2) % Calcium (8.5-10.1) mg/dL Total Bilirubin (0.2-1.0) mg/dL AST (15-37) IU/L ALT (14-63) IU/L Alkaline Phosphatase (46-116) U/L Total Protein (6.4-8.2) g/dL Albumin (3.4-5.0) g/dL Globulin (2.6-4.0) g/dL Albumin/Globulin Ratio (0.9-1.6) TSH 3rd Generation (0.36-3.74) uIU/mL Urine Color YELLOW Urine Appearance CLEAR Urine pH 6.0 (5.0-8.0) Ur Specific [place] <= 1.005 (1.001-1.035) Urine Protein NEGATIVE (NEGATIVE) mg/dL Urine Glucose (UA) >=1000 (NEGATIVE) mg/dL Urine Ketones NEGATIVE (NEGATIVE) mg/dL Urine Occult Blood NEGATIVE (NEGATIVE) Urine Nitrite NEGATIVE (NEGATIVE) Urine Bilirubin NEGATIVE (NEGATIVE) Urine Urobilinogen 0.2 (<2.0) EU/dL Ur Leukocyte Esterase NEGATIVE (NEGATIVE) Urine HCG, Qual NEGATIVE (NEGATIVE) Urine Opiates Screen POSITIVE (NEGATIVE) Ur Oxycodone Screen NEGATIVE (NEGATIVE) Urine Methadone Screen NEGATIVE (NEGATIVE) Ur Barbiturates Screen NEGATIVE (NEGATIVE) Ur Phencyclidine Scrn NEGATIVE (NEGATIVE) Ur Amphetamine Screen NEGATIVE (NEGATIVE) U Methamphetamines Scrn NEGATIVE (NEGATIVE) U Benzodiazepines Scrn NEGATIVE (NEGATIVE) U Cocaine Metab Screen NEGATIVE (NEGATIVE) U Marijuana (THC) Screen NEGATIVE (NEGATIVE) Ethyl Alcohol mg/dL Ketones (NEG) 08/14/18 08/14/18 08/14/18 Range/Units 00:30 00:30 00:30 WBC 5.44 (4.0-11.0) K/uL RBC 4.23 L (4.30-5.90) M/uL Hgb 9.0 L (12.0-16.0) g/dL Hct 31.6 L (36.0-46.0) % MCV 74.7 L (80.0-98.0) fL MCH 21.3 L (27.0-32.0) pg MCHC 28.5 L (31.0-37.0) g/dL RDW Std Deviation 49.4 (28.0-62.0) fl RDW Coeff of Zak 18 H (11.0-15.0) % Plt Count 351 (150-400) K/uL MPV 9.60 (7.40-12.00) fL Neut % (Auto) 53.9 (48.0-80.0) % Lymph % (Auto) 37.3 (16.0-40.0) % [place] % (Auto) 5.1 (0.0-15.0) % Eos % (Auto) 3.1 (0.0-7.0) % Baso % (Auto) 0.6 (0.0-1.5) % Neut # (Auto) 2.9 (1.4-5.7) K/uL Lymph # (Auto) 2.0 (0.6-2.4) K/uL [place] # (Auto) 0.3 (0.0-0.8) K/uL Eos # (Auto) 0.2 (0.0-0.7) K/uL Baso # (Auto) 0.0 (0.0-0.1) K/uL Nucleated RBC % 0.0 /100WBC Nucleated RBCs # 0 K/uL VBG pH 7.44 H (7.31-7.41) VBG pCO2 37 (35-45) mmHG VBG pO2 66 H (30-40) mmHG VBG HCO3 25 (22-30) mEq/L VBG Total CO2 24 L (41-51) mmol/L VBG Base Excess 1.0 (-3.0-3.0) Sodium 130 L (136-145) mmol/L Potassium 4.7 (3.5-5.1) mmol/L Chloride 97 L (98-107) mmol/L Carbon Dioxide 24.2 (21.0-32.0) mmol/L BUN 18 (7.0-18.0) mg/dL Creatinine 0.9 (0.6-1.0) mg/dL Est Cr Clr Drug Dosing 66.84 mL/min Estimated GFR (MDRD) > 60.0 ml/min Glucose 744 H* (74-106) mg/dL Hemoglobin A1c (4.5-6.2) % Calcium 9.1 (8.5-10.1) mg/dL Total Bilirubin 0.1 L (0.2-1.0) mg/dL AST 39 H (15-37) IU/L ALT 23 (14-63) IU/L Alkaline Phosphatase 179 H (46-116) U/L Total Protein 7.3 (6.4-8.2) g/dL Albumin 3.1 L (3.4-5.0) g/dL Globulin 4.2 H (2.6-4.0) g/dL Albumin/Globulin Ratio 0.7 L (0.9-1.6) TSH 3rd Generation 18.55 H (0.36-3.74) uIU/mL Urine Color Urine Appearance Urine pH (5.0-8.0) Ur Specific [place] (1.001-1.035) Urine Protein (NEGATIVE) mg/dL Urine Glucose (UA) (NEGATIVE) mg/dL Urine Ketones (NEGATIVE) mg/dL Urine Occult Blood (NEGATIVE) Urine Nitrite (NEGATIVE) Urine Bilirubin (NEGATIVE) Urine Urobilinogen (<2.0) EU/dL Ur Leukocyte Esterase (NEGATIVE) Urine HCG, Qual (NEGATIVE) Urine Opiates Screen (NEGATIVE) Ur Oxycodone Screen (NEGATIVE) Urine Methadone Screen (NEGATIVE) Ur Barbiturates Screen (NEGATIVE) Ur Phencyclidine Scrn (NEGATIVE) Ur Amphetamine Screen (NEGATIVE) U Methamphetamines Scrn (NEGATIVE) U Benzodiazepines Scrn (NEGATIVE) U Cocaine Metab Screen (NEGATIVE) U Marijuana (THC) Screen (NEGATIVE) Ethyl Alcohol <3 mg/dL Ketones (NEG) 08/14/18 08/14/18 Range/Units 00:30 01:24 WBC (4.0-11.0) K/uL RBC (4.30-5.90) M/uL Hgb (12.0-16.0) g/dL Hct (36.0-46.0) % MCV (80.0-98.0) fL MCH (27.0-32.0) pg MCHC (31.0-37.0) g/dL RDW Std Deviation (28.0-62.0) fl RDW Coeff of Zak (11.0-15.0) % Plt Count (150-400) K/uL MPV (7.40-12.00) fL Neut % (Auto) (48.0-80.0) % Lymph % (Auto) (16.0-40.0) % [place] % (Auto) (0.0-15.0) % Eos % (Auto) (0.0-7.0) % Baso % (Auto) (0.0-1.5) % Neut # (Auto) (1.4-5.7) K/uL Lymph # (Auto) (0.6-2.4) K/uL [place] # (Auto) (0.0-0.8) K/uL Eos # (Auto) (0.0-0.7) K/uL Baso # (Auto) (0.0-0.1) K/uL Nucleated RBC % /100WBC Nucleated RBCs # K/uL VBG pH (7.31-7.41) VBG pCO2 (35-45) mmHG VBG pO2 (30-40) mmHG VBG HCO3 (22-30) mEq/L VBG Total CO2 (41-51) mmol/L VBG Base Excess (-3.0-3.0) Sodium (136-145) mmol/L Potassium (3.5-5.1) mmol/L Chloride (98-107) mmol/L Carbon Dioxide (21.0-32.0) mmol/L BUN (7.0-18.0) mg/dL Creatinine (0.6-1.0) mg/dL Est Cr Clr Drug Dosing mL/min Estimated GFR (MDRD) ml/min Glucose (74-106) mg/dL Hemoglobin A1c 10.5 H (4.5-6.2) % Calcium (8.5-10.1) mg/dL Total Bilirubin (0.2-1.0) mg/dL AST (15-37) IU/L ALT (14-63) IU/L Alkaline Phosphatase (46-116) U/L Total Protein (6.4-8.2) g/dL Albumin (3.4-5.0) g/dL Globulin (2.6-4.0) g/dL Albumin/Globulin Ratio (0.9-1.6) TSH 3rd Generation (0.36-3.74) uIU/mL Urine Color Urine Appearance Urine pH (5.0-8.0) Ur Specific [place] (1.001-1.035) Urine Protein (NEGATIVE) mg/dL Urine Glucose (UA) (NEGATIVE) mg/dL Urine Ketones (NEGATIVE) mg/dL Urine Occult Blood (NEGATIVE) Urine Nitrite (NEGATIVE) Urine Bilirubin (NEGATIVE) Urine Urobilinogen (<2.0) EU/dL Ur Leukocyte Esterase (NEGATIVE) Urine HCG, Qual (NEGATIVE) Urine Opiates Screen (NEGATIVE) Ur Oxycodone Screen (NEGATIVE) Urine Methadone Screen (NEGATIVE) Ur Barbiturates Screen (NEGATIVE) Ur Phencyclidine Scrn (NEGATIVE) Ur Amphetamine Screen (NEGATIVE) U Methamphetamines Scrn (NEGATIVE) U Benzodiazepines Scrn (NEGATIVE) U Cocaine Metab Screen (NEGATIVE) U Marijuana (THC) Screen (NEGATIVE) Ethyl Alcohol mg/dL Ketones SMALL H (NEG) Meds: Medications Generic Name Dose Route Start Last Admin Trade Name Freq PRN Reason Stop Dose Admin Sodium Chloride 1,000 mls @ 999 mls/hr 08/14/18 01:58 Normal Saline IV 08/14/18 02:58 STAT ONE Sodium Chloride 10 ml 08/14/18 00:04 Saline Flush FLUSH ASDIRECTED PRN Keep Vein Open Sodium Chloride 2.5 ml 08/14/18 00:04 Saline Flush FLUSH ASDIRECTED PRN Keep Vein Open Discontinued Medications Generic Name Dose Route Start Last Admin Trade Name Freq PRN Reason Stop Dose Admin Sodium Chloride 1,000 mls @ 999 mls/hr 08/14/18 00:03 08/14/18 00:48 Normal Saline IV 08/14/18 01:03 999 mls/hr STAT ONE Administration Insulin Human Regular 15 unit 08/14/18 00:05 08/14/18 00:49 Novolin R SUBCUT 08/14/18 00:06 15 unit ONETIME ONE Administration Protocol Departure - Departure Time of Disposition: : Disposition: DC/Tfer to Acute Hospital 02 Condition: Good Clinical Impression: Hyperglycemia due to type 1 diabetes mellitus, Depressive disorder, Suicidal ideation - Discharge Information Referrals: PCP,None [Primary Care Provider] - Forms: ED Department Discharge - My Orders Last 24 Hours: My Active Orders 08/14/18 00:01 Saline Lock Insert [OM.PC] Stat 08/14/18 00:04 Sodium Chloride 0.9% [Saline Flush] 10 ml FLUSH ASDIRECTED PRN Sodium Chloride 0.9% [Saline Flush] 2.5 ml FLUSH ASDIRECTED PRN 08/14/18 01:58 Sodium Chloride 0.9% [Normal Saline] 1,000 ml IV STAT 08/14/18 02:19 Insulin Regular, Human [NovoLIN R] 15 unit SUBCUT ONETIME ONE - Assessment/Plan Last 24 Hours: My Active Orders 08/14/18 00:01 Saline Lock Insert [OM.PC] Stat 08/14/18 00:04 Sodium Chloride 0.9% [Saline Flush] 10 ml FLUSH ASDIRECTED PRN Sodium Chloride 0.9% [Saline Flush] 2.5 ml FLUSH ASDIRECTED PRN 08/14/18 01:58 Sodium Chloride 0.9% [Normal Saline] 1,000 ml IV STAT 08/14/18 02:19 Insulin Regular, Human [NovoLIN R] 15 unit SUBCUT ONETIME ONE
[2018-08-14 01:12] LABS: CHLORIDE,CL 97 mmol/L (98-107); SODIUM,NA 130 mmol/L (136-145)
[2018-08-14 01:42] LABS: HEMOGLOBIN A1C 10.5 % (4.5-6.2)
[2018-08-14] MEDS ORDERED: Sodium Chloride 0.9% 1,000 ML IV SCH (02:30)
[2018-08-14 02:33] VITALS: BP 132/94
== END 2018-08-14 03:20 ==
LOC: MW.ED 23:51
DX: E10.65 Type 1 diabetes mellitus with hyperglycemia (principal); F32.9 Major depressive disorder, single episode, unspecified; E03.9 Hypothyroidism, unspecified; F41.9 Anxiety disorder, unspecified; Z88.6 Allergy status to analgesic agent; Z88.1 Allergy status to other antibiotic agents; Z88.8 Allergy status to other drugs, medicaments and biological substances; Z79.899 Other long term (current) drug therapy
CPT/HCPCS: 36415; 80053; 80305; 81003; 81025; 82009; 82803; 83036; 84443; 85025; 96360; 96361; 99285; G0480; J7040; J1815-GY

== ENCOUNTER 2018-09-04 14:39 | Emergency (ER) | payer MEDICAID ==
--- NOTE | 2018-09-04 14:45 | EDM.PDOC ---
ED HPI GENERAL MEDICAL PROBLEM - General Chief Complaint: Neuro Symptoms/Deficits Stated Complaint: SEIZURE Time Seen by Provider: 09/04/18 14:45 Source of Information: Reports: Patient History Limitations: Reports: No Limitations - History of Present Illness INITIAL COMMENTS - FREE TEXT/NARRATIVE: HISTORY AND PHYSICAL: History of present illness: Patient is a 27-year-old female past medical history of type 1 diabetes and seizure disorder here by EMS for seizures. She states she had 2 seizures today. According to sister lasted 1 minute and 4 minutes. Denies head injury. She reports being out of her Keppra for the past few days, just refilled and started taking it this morning. She denies fevers, chills, nausea, vomiting, diarrhea, abdominal pain, headache. She states she has felt shaky and also notes that she has been out of her morphine and embeda which she takes for chronic back pain secondary to osteoporosis induced spinal compression fractures and chronic visceral pain. She has a follow up with Dr. Black on 09/09/18. Review of systems: As per history of present illness and below otherwise all systems reviewed and negative. Past medical history: As per history of present illness and as reviewed below otherwise noncontributory. Surgical history: As per history of present illness and as reviewed below otherwise noncontributory. Social history: No reported history of drug or alcohol abuse. Family history: As per history of present illness and as reviewed below otherwise noncontributory. Physical exam: General: Patient sitting comfortably in no acute distress and nontoxic appearing HEENT: Atraumatic, normocephalic, pupils reactive, negative for conjunctival pallor or scleral icterus, mucous membranes moist, throat clear, neck supple, nontender, trachea midline. No meningeal signs. Lungs: Clear to auscultation, breath sounds equal bilaterally, chest nontender. Heart: S1S2, regular, negative for clicks, rubs, or overt murmur. Abdomen: Soft, nondistended, nontender. Negative for masses or hepatosplenomegaly. Negative for costovertebral tenderness. No rigidity, rebound , guarding. Pelvis: Stable nontender. Genitourinary: Deferred. Rectal: Deferred. Extremities: Atraumatic, negative for cords or calf pain. Neurovascular unremarkable. Neuro: Awake, alert, oriented. Cranial nerves II through XII unremarkable. Cerebellum unremarkable. Motor and sensory unremarkable throughout. Exam nonfocal. Notes: Patient is sitting comfortably on my evaluation. Labs are unremarkable. Diagnostics: CBC, CMP, UA Therapeutics: None Prescriptions: None Impression: s/p seizure, history of seizure disorder Plan: 1. Continue medications as prescribed 2. Follow up with primary care provider 3. Return to ED as needed as discussed Definitive disposition and diagnosis as appropriate pending reevaluation and review of above. Back/leg pain Pain Score (Numeric/FACES): 10 - Related Data Allergies Allergy/AdvReac Type Severity Reaction Status Date / Time acetaminophen [From Tylenol] Allergy Liver Verified 09/04/18 14:46 Problems amoxicillin Allergy Hives Verified 09/04/18 14:46 amoxicillin trihydrate Allergy Hives Verified 09/04/18 14:46 [From Amoxil] ibuprofen Allergy Liver Verified 09/04/18 14:46 Problems ketorolac tromethamine Allergy Hives Verified 09/04/18 14:46 [From Toradol] metoclopramide HCl Allergy Airway Verified 09/04/18 14:46 [From Reglan] Tightness tramadol Allergy Hives Verified 09/04/18 14:46 haldol Allergy Swelling Uncoded 08/14/18 00:51 Home Meds: Home Meds LORazepam [Ativan] 1 mg PO TID PRN 03/24/16 [History] Ondansetron [Ondansetron ODT] 8 mg PO QID PRN 04/19/16 [History] Insulin Aspart [Novolog Flexpen] 16 - 20 unit SUBCUT QIDACANDBED 05/15/16 [ History] Cholecalciferol (Vitamin D3) [Dialyvite Vitamin D3 Max] 50,000 unit PO WEEKLY [History] Insulin Degludec [Tresiba Flextouch U-100] 22 units SQ DAILY 03/18/18 [History] Morphine [MS Contin] 60 mg PO BID 03/18/18 [History] Morphine 1 tab PO QID PRN 06/27/18 [History] levETIRAcetam [Keppra] 1 tab PO BID 06/27/18 [History] Budesonide/Formoterol Fumarate [Symbicort 160-4.5 Mcg Inhaler] 1 puff IH BID [History] FLUoxetine HCl [Fluoxetine HCl] 20 mg PO DAILY 06/28/18 [History] Levothyroxine 112 mcg PO ACBREAKFAST 06/28/18 [History] Rosuvastatin [Crestor] 5 mg PO BEDTIME 06/28/18 [History] Past Medical History - Past Health History Medical/Surgical History: Denies Medical/Surgical History HEENT History: Reports: Allergic Rhinitis Other HEENT History: dental abcess Cardiovascular History: Reports: None Respiratory History: Reports: Asthma Gastrointestinal History: Reports: GI Bleed, Hepatitis, PUD, Other (See Below) Other Gastrointestinal History: hx of C-diff, hx of Hepatitis B Genitourinary History: Reports: UTI, Recurrent Other Genitourinary History: current UTI HOGSHEAD WEIGHER History: Reports: Other (See Below) Other HOGSHEAD WEIGHER History: had miscarriage twice Musculoskeletal History: Reports: Back Pain, Chronic, Fracture Neurological History: Reports: Migraines, Seizure, Other (See Below) 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 Psychiatric History: Reports: Anxiety, Depression Endocrine/Metabolic History: Reports: Diabetes, Type I, Hypothyroidism Other Endocrine/Metabolic History: recurrent admission for DKA Hematologic History: Reports: Anemia, Blood Transfusion(s) Immunologic History: Reports: None Oncologic (Cancer) History: Reports: None Dermatologic History: Reports: Other (See Below) Other Dermatologic History: wound dishiscence causing port removal R upper chest --dehiscence from inadequate diet - Infectious Disease History Infectious Disease History: Reports: C-Difficile, Hepatitis B - Past Surgical History Head Surgeries/Procedures: Reports: None HEENT Surgical History: Reports: Tonsillectomy Cardiovascular Surgical History: Reports: None Respiratory Surgical History: Reports: None GI Surgical History: Reports: Appendectomy, Cholecystectomy, ERCP Female Surgical History: Reports: None Endocrine Surgical History: Reports: None Neurological Surgical History: Reports: None Musculoskeletal Surgical History: Reports: None Oncologic Surgical History: Reports: None Dermatological Surgical History: Reports: None - History Comment History Comment: She has had over [address] scans in the last 4 years. Social & Family History - Family History Family Medical History: Noncontributory HEENT: Reports: Impaired Vision Cardiac: Reports: Heart Failure Respiratory: Reports: Asthma GI: Reports: None : Reports: Renal Disease/Insufficiency OBGYN: Reports: Musculoskeletal: Reports: Back pain, Chronic Neurological: Reports: Seizure Psychiatric: Reports: None Endocrine/Metabolic: Reports: Diabetes, Type I Hematologic: Reports: None Immunologic: Reports: None Dermatologic: Reports: None Oncologic: Reports: Breast, Cervix - Caffeine Use Caffeine Use: Reports: Coffee, Soda Caffeine Use Comment: approximately 1 drink/day - Living Situation & Occupation Living situation: Reports: with Significant Other, with Family, Other Occupation: Unemployed ED ROS GENERAL - Review of Systems Review Of Systems: ROS reveals no pertinent complaints other than HPI. - Physical Exam Exam: See Below (see dictation) Course - Vital Signs Last Recorded V/S: Last Vital Signs Temp 98.9 F 09/04/18 14:46 Pulse 111 H 09/04/18 14:46 Resp 18 09/04/18 14:46 BP 121/78 09/04/18 14:46 Pulse Ox 97 09/04/18 14:46 - Orders/Labs/Meds Orders: Active Orders 24 hr Category Date Time Status Blood Glucose Check, Bedside [RC] ONETIME Care 09/04/18 14:47 Active Labs: Laboratory Tests 09/04/18 09/04/18 09/04/18 Range/Units 14:52 15:18 15:18 WBC 8.60 (4.0-11.0) K/uL RBC 5.06 (4.30-5.90) M/uL Hgb 11.6 L (12.0-16.0) g/dL Hct 38.0 (36.0-46.0) % MCV 75.1 L (80.0-98.0) fL MCH 22.9 L (27.0-32.0) pg MCHC 30.5 L (31.0-37.0) g/dL RDW Std Deviation 56.2 (28.0-62.0) fl RDW Coeff of Zak 21 H (11.0-15.0) % Plt Count 380 (150-400) K/uL MPV 10.60 (7.40-12.00) fL Neut % (Auto) 85.5 H (48.0-80.0) % Lymph % (Auto) 12.9 L (16.0-40.0) % [place] % (Auto) 1.3 (0.0-15.0) % Eos % (Auto) 0.1 (0.0-7.0) % Baso % (Auto) 0.2 (0.0-1.5) % Neut # (Auto) 7.4 H (1.4-5.7) K/uL Lymph # (Auto) 1.1 (0.6-2.4) K/uL [place] # (Auto) 0.1 (0.0-0.8) K/uL Eos # (Auto) 0.0 (0.0-0.7) K/uL Baso # (Auto) 0.0 (0.0-0.1) K/uL Nucleated RBC % 0.0 /100WBC Nucleated RBCs # 0 K/uL Sodium 135 L (136-145) mmol/L Potassium 3.6 (3.5-5.1) mmol/L Chloride 100 (98-107) mmol/L Carbon Dioxide 17.3 L (21.0-32.0) mmol/L BUN 11 (7.0-18.0) mg/dL Creatinine 0.7 (0.6-1.0) mg/dL Est Cr Clr Drug Dosing 85.94 mL/min Estimated GFR (MDRD) > 60.0 ml/min Glucose 245 H (74-106) mg/dL POC Glucose 233 H (60-110) mg/dL Calcium 9.5 (8.5-10.1) mg/dL Total Bilirubin 0.5 (0.2-1.0) mg/dL AST 61 H (15-37) IU/L ALT 80 H (14-63) IU/L Alkaline Phosphatase 197 H (46-116) U/L Total Protein 8.2 (6.4-8.2) g/dL Albumin 3.9 (3.4-5.0) g/dL Globulin 4.3 H (2.6-4.0) g/dL Albumin/Globulin Ratio 0.9 (0.9-1.6) Urine Color Urine Appearance Urine pH (5.0-8.0) Ur Specific [place] (1.001-1.035) Urine Protein (NEGATIVE) mg/dL Urine Glucose (UA) (NEGATIVE) mg/dL Urine Ketones (NEGATIVE) mg/dL Urine Occult Blood (NEGATIVE) Urine Nitrite (NEGATIVE) Urine Bilirubin (NEGATIVE) Urine Urobilinogen (<2.0) EU/dL Ur Leukocyte Esterase (NEGATIVE) 09/04/18 Range/Units 15:20 WBC (4.0-11.0) K/uL RBC (4.30-5.90) M/uL Hgb (12.0-16.0) g/dL Hct (36.0-46.0) % MCV (80.0-98.0) fL MCH (27.0-32.0) pg MCHC (31.0-37.0) g/dL RDW Std Deviation (28.0-62.0) fl RDW Coeff of Zak (11.0-15.0) % Plt Count (150-400) K/uL MPV (7.40-12.00) fL Neut % (Auto) (48.0-80.0) % Lymph % (Auto) (16.0-40.0) % [place] % (Auto) (0.0-15.0) % Eos % (Auto) (0.0-7.0) % Baso % (Auto) (0.0-1.5) % Neut # (Auto) (1.4-5.7) K/uL Lymph # (Auto) (0.6-2.4) K/uL [place] # (Auto) (0.0-0.8) K/uL Eos # (Auto) (0.0-0.7) K/uL Baso # (Auto) (0.0-0.1) K/uL Nucleated RBC % /100WBC Nucleated RBCs # K/uL Sodium (136-145) mmol/L Potassium (3.5-5.1) mmol/L Chloride (98-107) mmol/L Carbon Dioxide (21.0-32.0) mmol/L BUN (7.0-18.0) mg/dL Creatinine (0.6-1.0) mg/dL Est Cr Clr Drug Dosing mL/min Estimated GFR (MDRD) ml/min Glucose (74-106) mg/dL POC Glucose (60-110) mg/dL Calcium (8.5-10.1) mg/dL Total Bilirubin (0.2-1.0) mg/dL AST (15-37) IU/L ALT (14-63) IU/L Alkaline Phosphatase (46-116) U/L Total Protein (6.4-8.2) g/dL Albumin (3.4-5.0) g/dL Globulin (2.6-4.0) g/dL Albumin/Globulin Ratio (0.9-1.6) Urine Color YELLOW Urine Appearance CLEAR Urine pH 6.0 (5.0-8.0) Ur Specific [place] 1.010 (1.001-1.035) Urine Protein NEGATIVE (NEGATIVE) mg/dL Urine Glucose (UA) >=1000 (NEGATIVE) mg/dL Urine Ketones >=80 (NEGATIVE) mg/dL Urine Occult Blood NEGATIVE (NEGATIVE) Urine Nitrite NEGATIVE (NEGATIVE) Urine Bilirubin NEGATIVE (NEGATIVE) Urine Urobilinogen 0.2 (<2.0) EU/dL Ur Leukocyte Esterase NEGATIVE (NEGATIVE) Departure - Departure Time of Disposition: 16:05 Disposition: Home, Self-Care 01 Condition: Good Clinical Impression: Status post seizure, Seizure disorder - Discharge Information Forms: ED Department Discharge Additional Instructions: The following information is given to patients seen in the emergency department who are being discharged to home. This information is to outline your options for follow-up care. We provide all patients seen in our emergency department with a follow-up referral. The need for follow-up, as well as the timing and circumstances, are variable depending upon the specifics of your emergency department visit. If you don't have a primary care physician on staff, we will provide you with a referral. We always advise you to contact your personal physician following an emergency department visit to inform them of the circumstance of the visit and for follow-up with them and/or the need for any referrals to a consulting specialist. The emergency department will also refer you to a specialist when appropriate. This referral assures that you have the opportunity for follow-up care with a specialist. All of these measure are taken in an effort to provide you with optimal care, which includes your follow-up. Under all circumstances we always encourage you to contact your private physician who remains a resource for coordinating your care. When calling for follow-up care, please make the office aware that this follow-up is from your recent emergency room visit. If for any reason you are refused follow-up, please contact the [facility] Emergency Department at and asked to speak to the emergency department charge nurse. [facility] [address] [place] [phone] 1. Continue medications as prescribed 2. Follow up with primary care provider 3. Return to ED as needed as discussed - My Orders Last 24 Hours: My Active Orders 09/04/18 14:47 Blood Glucose Check, Bedside [RC] ONETIME - Assessment/Plan Last 24 Hours: My Active Orders 09/04/18 14:47 Blood Glucose Check, Bedside [RC] ONETIME
[2018-09-04 15:59] LABS: CHLORIDE,CL 100 mmol/L (98-107); SODIUM,NA 135 mmol/L (136-145)
[2018-09-04 16:21] VITALS: BP 113/66
== END 2018-09-04 16:21 | disposition home or self-care (01) ==
LOC: MW.ED 14:39
DX: G40.909 Epilepsy, unspecified, not intractable, without status epilepticus (principal); E10.9 Type 1 diabetes mellitus without complications; F41.9 Anxiety disorder, unspecified; F32.9 Major depressive disorder, single episode, unspecified; E03.9 Hypothyroidism, unspecified; Z88.6 Allergy status to analgesic agent; Z88.5 Allergy status to narcotic agent; Z88.8 Allergy status to other drugs, medicaments and biological substances; Z79.899 Other long term (current) drug therapy; Z88.1 Allergy status to other antibiotic agents
CPT/HCPCS: 36415; 80053; 81003; 82962; 85025; 99282; 99284

== ENCOUNTER 2019-01-27 07:48 | Observation (INO) | payer MEDICAID ==
[2019-01-27] MEDS ORDERED: Sodium Chloride 0.9% 1,000 ML IV ONE ×3 (08:05→18:27)
--- NOTE | 2019-01-27 08:07 | EDM.PDOC ---
ED HPI GENERAL MEDICAL PROBLEM - General Chief Complaint: Diabetic Complaint Stated Complaint: TYPE 1 DIABETIC, DKA Time Seen by Provider: 01/27/19 08:04 - History of Present Illness INITIAL COMMENTS - FREE TEXT/NARRATIVE: HISTORY AND PHYSICAL: History of present illness: Patient is 28-year-old white female well-known to our institution with history of extremely poorly controlled diabetes who's had multiple episodes of severe DKA who presents with a concern of persistently elevated blood sugar greater than 300 and requesting eval for DKA patient denies chest pain shortness of breath nausea vomiting or other complaints she states she's been compliant with the new regime for blood sugar control it's been coordinated with her primary care physician Dr. black Review of systems: As per history of present illness and below otherwise all systems reviewed and negative. Past medical history: As per history of present illness and as reviewed below otherwise noncontributory. Surgical history: As per history of present illness and as reviewed below otherwise noncontributory. Social history: No reported history of drug or alcohol abuse. Family history: As per history of present illness and as reviewed below otherwise noncontributory. Physical exam: HEENT: Atraumatic, normocephalic, pupils reactive, negative for conjunctival pallor or scleral icterus, mucous membranes moist, throat clear, neck supple, nontender, trachea midline. Lungs: Clear to auscultation, breath sounds equal bilaterally, chest nontender. Heart: S1S2, regular, negative for clicks, rubs, or JVD. Abdomen: Soft, nondistended, nontender. Negative for masses or hepatosplenomegaly. Negative for costovertebral tenderness. Pelvis: Stable nontender. Genitourinary: Deferred. Rectal: Deferred. Extremities: Atraumatic, negative for cords or calf pain. Neurovascular unremarkable. Neuro: Awake, alert, oriented. Cranial nerves II through XII unremarkable. Cerebellum unremarkable. Motor and sensory unremarkable throughout. Exam nonfocal. Diagnostics: CBC CMP UA hCG ABG chest x-ray EKG Therapeutics: Saline 2 L bolus Impression: #1 hyperglycemia with history of diabetes Definitive disposition and diagnosis as appropriate pending reevaluation and review of above. left flank Pain Score (Numeric/FACES): 9 - Related Data Allergies Allergy/AdvReac Type Severity Reaction Status Date / Time acetaminophen [From Tylenol] Allergy Liver Verified 01/27/19 07:57 Problems amoxicillin Allergy Hives Verified 01/27/19 07:57 amoxicillin trihydrate Allergy Hives Verified 01/27/19 07:57 [From Amoxil] ibuprofen Allergy Liver Verified 01/27/19 07:57 Problems ketorolac tromethamine Allergy Hives Verified 01/27/19 07:57 [From Toradol] metoclopramide HCl Allergy Airway Verified 01/27/19 07:57 [From Reglan] Tightness tramadol Allergy Hives Verified 01/27/19 07:57 haldol Allergy Swelling Uncoded 01/27/19 07:57 Home Meds: Home Meds FLUoxetine HCl [Fluoxetine HCl] 40 mg PO DAILY 01/27/19 [History] Insulin Degludec [Tresiba] 26 unit SQ DAILY 01/27/19 [History] Insulin Regular, Human [Novolin R] 0 unit SUBCUT ASDIRECTED 01/27/19 [History] LORazepam 1 mg PO TID 01/27/19 [History] Levothyroxine [Levothroid] 137 mcg PO ACBREAKFAST 01/27/19 [History] Morphine 15 mg PO Q4H PRN 01/27/19 [History] Rosuvastatin [Crestor] 5 mg PO DAILY 01/27/19 [History] levETIRAcetam [Keppra] 500 mg PO BID 01/27/19 [History] tiZANidine [Zanaflex] 4 mg PO BID 01/27/19 [History] Past Medical History - Past Health History Medical/Surgical History: Denies Medical/Surgical History HEENT History: Reports: Allergic Rhinitis Other HEENT History: dental abcess Cardiovascular History: Reports: None Respiratory History: Reports: Asthma Gastrointestinal History: Reports: GI Bleed, Hepatitis, PUD, Other (See Below) Other Gastrointestinal History: hx of C-diff, hx of Hepatitis B Genitourinary History: Reports: UTI, Recurrent Other Genitourinary History: current UTI 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 (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 Musculoskeletal History: Reports: Back Pain, Chronic, Fracture Neurological History: Reports: Migraines, Seizure, Other (See Below) 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 Psychiatric History: Reports: Anxiety, Depression Endocrine/Metabolic History: Reports: Diabetes, Type I, Hypothyroidism Other Endocrine/Metabolic History: recurrent admission for DKA Hematologic History: Reports: Anemia, Blood Transfusion(s) Immunologic History: Reports: None Oncologic (Cancer) History: Reports: None Dermatologic History: Reports: Other (See Below) Other Dermatologic History: wound dishiscence causing port removal R upper chest --dehiscence from inadequate diet - Infectious Disease History Infectious Disease History: Reports: Chicken Pox, Hepatitis B - Past Surgical History Head Surgeries/Procedures: Reports: None HEENT Surgical History: Reports: Tonsillectomy Cardiovascular Surgical History: Reports: None Respiratory Surgical History: Reports: None GI Surgical History: Reports: Appendectomy, Cholecystectomy, ERCP Female Surgical History: Reports: None Endocrine Surgical History: Reports: None Neurological Surgical History: Reports: None Musculoskeletal Surgical History: Reports: None Oncologic Surgical History: Reports: None Dermatological Surgical History: Reports: None - History Comment History Comment: She has had over [address] scans in the last 4 years. Social & Family History - Family History Family Medical History: Noncontributory HEENT: Reports: Impaired Vision Cardiac: Reports: Heart Failure Respiratory: Reports: Asthma GI: Reports: None : Reports: Renal Disease/Insufficiency OBGYN: Reports: Musculoskeletal: Reports: Back pain, Chronic Neurological: Reports: Seizure Psychiatric: Reports: None Endocrine/Metabolic: Reports: Diabetes, Type I Hematologic: Reports: None Immunologic: Reports: None Dermatologic: Reports: None Oncologic: Reports: Breast, Cervix - Tobacco Use Smoking Status *Q: Never Smoker Second Hand Smoke Exposure: No - Caffeine Use Caffeine Use: Reports: Coffee, Soda Caffeine Use Comment: approximately 1 drink/day - Recreational Drug Use Recreational Drug Use: No - Living Situation & Occupation Living situation: Reports: with Significant Other, with Family, Other Occupation: Unemployed ED ROS GENERAL - Review of Systems Review Of Systems: ROS reveals no pertinent complaints other than HPI. ED EXAM GENERAL NO PERIP PULSE - Physical Exam Exam: See Below (See dictation) Course - Vital Signs Last Recorded V/S: Last Vital Signs Temp 36.4 C 01/27/19 07:57 Pulse 79 01/27/19 09:56 Resp 14 01/27/19 09:56 BP 94/44 L 01/27/19 09:56 Pulse Ox 97 01/27/19 09:56 - Orders/Labs/Meds Orders: Active Orders 24 hr Category Date Time Status Patient Status [ADT] Routine ADT 01/27/19 09:51 Active Blood Glucose Check, Bedside [RC] WITHMEALSANDBED Care 01/27/19 09:51 Active EKG Documentation Completion [RC] STAT Care 01/27/19 08:07 Active Enema [RC] Q6HR Care 01/27/19 10:07 Active Oxygen Therapy [RC] PRN Care 01/27/19 09:51 Active Up ad [place] [RC] ASDIRECTED Care 01/27/19 09:51 Active VTE/DVT Education [RC] PER UNIT ROUTINE Care 01/27/19 09:51 Active Vital Signs [RC] Q4H Care 01/27/19 09:51 Active [place] [employer] Diet [DIET] Diet 01/27/19 Breakfast Active Enoxaparin [Lovenox] Med 01/27/19 10:00 Active 40 mg SUBCUT Q24H FLUoxetine HCl [Fluoxetine HCl] Med 01/28/19 09:00 Active 40 mg PO DAILY LORazepam [Ativan] Med 01/27/19 14:00 Active 1 mg PO TID Levothyroxine Med 01/28/19 07:30 Active 137 mcg PO ACBREAKFAST Ondansetron [Zofran ODT] Med 01/27/19 09:51 Active 4 mg PO Q4H PRN Ondansetron [Zofran] Med 01/27/19 09:51 Active 4 mg IVPUSH Q4H PRN Polyethylene Glycol 3350 [MiraLAX] Med 01/27/19 10:00 Active 17 gm PO DAILY Sodium Chloride 0.9% [Normal Saline] 1,000 ml Med 01/27/19 10:00 Active IV ASDIRECTED levETIRAcetam [Keppra] Med 01/27/19 21:00 Active 500 mg PO BID Resuscitation Status Routine Resus Stat 01/27/19 09:51 Ordered Medication Orders Enoxaparin Sodium (Lovenox) 40 mg SUBCUT Q24H PIPPA Sodium Chloride (Normal Saline) 1,000 mls @ 150 mls/hr IV ASDIRECTED PIPPA Stop: 01/27/19 16:39 Levetiracetam (Keppra) 500 mg PO BID PIPPA Lorazepam (Ativan) 1 mg PO TID PIPPA Non-Formulary Medication (Fluoxetine Hcl [Fluoxetine Hcl]) 40 mg PO DAILY PIPPA Non-Formulary Medication (Levothyroxine) 137 mcg PO ACBREAKFAST PIPPA Ondansetron HCl (Zofran Odt) 4 mg PO Q4H PRN PRN Reason: nausea, able to take PO Ondansetron HCl (Zofran) 4 mg IVPUSH Q4H PRN PRN Reason: Nausea Polyethylene Glycol (Miralax) 17 gm PO DAILY [facility] Labs: Laboratory Tests 01/27/19 01/27/19 01/27/19 Range/Units 08:00 08:00 08:15 WBC 6.19 (4.0-11.0) K/uL RBC 4.51 (4.30-5.90) M/uL Hgb 11.5 L (12.0-16.0) g/dL Hct 37.3 (36.0-46.0) % MCV 82.7 (80.0-98.0) fL MCH 25.5 L (27.0-32.0) pg MCHC 30.8 L (31.0-37.0) g/dL RDW Std Deviation 53.4 (28.0-62.0) fl RDW Coeff of Zak 18 H (11.0-15.0) % Plt Count 423 H (150-400) K/uL MPV 9.60 (7.40-12.00) fL Neut % (Auto) 45.0 L (48.0-80.0) % Lymph % (Auto) 45.6 H (16.0-40.0) % Spencer % (Auto) 6.0 (0.0-15.0) % Eos % (Auto) 2.4 (0.0-7.0) % Baso % (Auto) 1.0 (0.0-1.5) % Neut # (Auto) 2.8 (1.4-5.7) K/uL Lymph # (Auto) 2.8 H (0.6-2.4) K/uL Spencer # (Auto) 0.4 (0.0-0.8) K/uL Eos # (Auto) 0.2 (0.0-0.7) K/uL Baso # (Auto) 0.1 (0.0-0.1) K/uL Nucleated RBC % 0.0 /100WBC Nucleated RBCs # 0 K/uL ABG pH (7.35-7.45) ABG pCO2 (35-45) mmHG ABG pO2 (75-100) mmHG ABG HCO3 (22-26) mEq/L ABG Total CO2 ABG Base Excess (-2.0-2.0) Sodium (136-145) mmol/L Potassium (3.5-5.1) mmol/L Chloride (98-107) mmol/L Carbon Dioxide (21.0-32.0) mmol/L BUN (7.0-18.0) mg/dL Creatinine (0.6-1.0) mg/dL Est Cr Clr Drug Dosing mL/min Estimated GFR (MDRD) ml/min Glucose (74-106) mg/dL POC Glucose (60-110) mg/dL Calcium (8.5-10.1) mg/dL Total Bilirubin (0.2-1.0) mg/dL AST (15-37) IU/L ALT (14-63) IU/L Alkaline Phosphatase (46-116) U/L Total Protein (6.4-8.2) g/dL Albumin (3.4-5.0) g/dL Globulin (2.6-4.0) g/dL Albumin/Globulin Ratio (0.9-1.6) Urine Color YELLOW Urine Appearance CLEAR Urine pH 6.0 (5.0-8.0) Ur Specific [place] 1.015 (1.001-1.035) Urine Protein NEGATIVE (NEGATIVE) mg/dL Urine Glucose (UA) >=1000 (NEGATIVE) mg/dL Urine Ketones 40 H (NEGATIVE) mg/dL Urine Occult Blood NEGATIVE (NEGATIVE) Urine Nitrite NEGATIVE (NEGATIVE) Urine Bilirubin NEGATIVE (NEGATIVE) Urine Urobilinogen 0.2 (<2.0) EU/dL Ur Leukocyte Esterase NEGATIVE (NEGATIVE) Urine HCG, Qual NEGATIVE (NEGATIVE) 01/27/19 01/27/19 01/27/19 Range/Units 08:15 08:18 09:49 WBC (4.0-11.0) K/uL RBC (4.30-5.90) M/uL Hgb (12.0-16.0) g/dL Hct (36.0-46.0) % MCV (80.0-98.0) fL MCH (27.0-32.0) pg MCHC (31.0-37.0) g/dL RDW Std Deviation (28.0-62.0) fl RDW Coeff of Zak (11.0-15.0) % Plt Count (150-400) K/uL MPV (7.40-12.00) fL Neut % (Auto) (48.0-80.0) % Lymph % (Auto) (16.0-40.0) % Spencer % (Auto) (0.0-15.0) % Eos % (Auto) (0.0-7.0) % Baso % (Auto) (0.0-1.5) % Neut # (Auto) (1.4-5.7) K/uL Lymph # (Auto) (0.6-2.4) K/uL Spencer # (Auto) (0.0-0.8) K/uL Eos # (Auto) (0.0-0.7) K/uL Baso # (Auto) (0.0-0.1) K/uL Nucleated RBC % /100WBC Nucleated RBCs # K/uL ABG pH 7.362 (7.35-7.45) ABG pCO2 26 L (35-45) mmHG ABG pO2 100 (75-100) mmHG ABG HCO3 15 L (22-26) mEq/L ABG Total CO2 13.8 ABG Base Excess -9.1 L (-2.0-2.0) Sodium 130 L (136-145) mmol/L Potassium 4.3 (3.5-5.1) mmol/L Chloride 97 L (98-107) mmol/L Carbon Dioxide 17.3 L (21.0-32.0) mmol/L BUN 14 (7.0-18.0) mg/dL Creatinine 0.7 (0.6-1.0) mg/dL Est Cr Clr Drug Dosing 85.18 mL/min Estimated GFR (MDRD) > 60.0 ml/min Glucose 420 H (74-106) mg/dL POC Glucose 361 H (60-110) mg/dL Calcium 8.8 (8.5-10.1) mg/dL Total Bilirubin 0.4 (0.2-1.0) mg/dL AST 25 (15-37) IU/L ALT 43 (14-63) IU/L Alkaline Phosphatase 209 H (46-116) U/L Total Protein 7.5 (6.4-8.2) g/dL Albumin 3.4 (3.4-5.0) g/dL Globulin 4.1 H (2.6-4.0) g/dL Albumin/Globulin Ratio 0.8 L (0.9-1.6) Urine Color Urine Appearance Urine pH (5.0-8.0) Ur Specific [place] (1.001-1.035) Urine Protein (NEGATIVE) mg/dL Urine Glucose (UA) (NEGATIVE) mg/dL Urine Ketones (NEGATIVE) mg/dL Urine Occult Blood (NEGATIVE) Urine Nitrite (NEGATIVE) Urine Bilirubin (NEGATIVE) Urine Urobilinogen (<2.0) EU/dL Ur Leukocyte Esterase (NEGATIVE) Urine HCG, Qual (NEGATIVE) Meds: Medications Generic Name Dose Route Start Last Admin Trade Name Freq PRN Reason Stop Dose Admin Enoxaparin Sodium 40 mg 01/27/19 10:00 Lovenox SUBCUT Q24H PIPPA Sodium Chloride 1,000 mls @ 150 mls/hr 01/27/19 10:00 Normal Saline IV 01/27/19 16:39 ASDIRECTED [facility] Levetiracetam 500 mg 01/27/19 21:00 Keppra PO BID [facility] Lorazepam 1 mg 01/27/19 14:00 Ativan PO TID PIPPA Non-Formulary Medication 40 mg 01/28/19 09:00 Fluoxetine Hcl [Fluoxetine Hcl] PO DAILY PIPPA Non-Formulary Medication 137 mcg 01/28/19 07:30 Levothyroxine PO ACBREAKFAST [facility] Ondansetron HCl 4 mg 01/27/19 09:51 Zofran Odt PO Q4H PRN nausea, able to take PO Ondansetron HCl 4 mg 01/27/19 09:51 Zofran IVPUSH Q4H PRN Nausea Polyethylene Glycol 17 gm 01/27/19 10:00 Miralax PO DAILY PIPPA Discontinued Medications Generic Name Dose Route Start Last Admin Trade Name Freq PRN Reason Stop Dose Admin Sodium Chloride 1,000 mls @ 999 mls/hr 01/27/19 08:05 01/27/19 08:19 Normal Saline IV 01/27/19 09:05 999 mls/hr .Bolus ONE Administration Sodium Chloride 1,000 mls @ 999 mls/hr 01/27/19 08:06 01/27/19 09:51 Normal Saline IV 07/29/19 09:06 999 mls/hr .Bolus ONE Administration Insulin Human Regular 5 unit 01/27/19 09:28 01/27/19 09:51 Novolin R IVPUSH 01/27/19 09:29 5 units ONETIME ONE Administration Protocol Insulin Human Regular 10 unit 01/27/19 09:29 01/27/19 09:52 Novolin R SUBCUT 01/27/19 09:30 10 units ONETIME ONE Administration Protocol Departure - Departure Time of Disposition: 10:17 Disposition: Refer to Observation Condition: Good Clinical Impression: Uncontrolled diabetes mellitus, Dehydration - Discharge Information Referrals: Maynor Black MD [Primary Care Provider] - Forms: ED Department Discharge - My Orders Last 24 Hours: My Active Orders 01/27/19 08:07 EKG Documentation Completion [RC] STAT - Assessment/Plan Last 24 Hours: My Active Orders 01/27/19 08:07 EKG Documentation Completion [RC] STAT
[2019-01-27 08:42] LABS: BLOOD UREA NITROGEN,BUN 14 mg/dL (7.0-18.0); CARBON DIOXIDE,CO2 17.3 mmol/L (21.0-32.0); CHLORIDE,CL 97 mmol/L (98-107); GLUCOSE RANDOM 420 mg/dL (74-106); POTASSIUM,K 4.3 mmol/L (3.5-5.1); SODIUM,NA 130 mmol/L (136-145)
--- NOTE | 2019-01-27 09:17 | CR ---
EXAMINATION: Portable chest radiograph. HISTORY: Hyperglycemia. FINDINGS: The trachea is midline. The cardiomediastinal silhouette is within normal limits. No pulmonary infiltrates, effusions or pneumothorax. Osseous structures appear unremarkable. IMPRESSION: No acute cardiopulmonary process.
[2019-01-27] MEDS ORDERED: Insulin Regular, Human 100 Units/ML 10 ML Vial IVPUSH ONE (09:28)
[2019-01-27] MEDS ORDERED: Insulin Regular, Human 100 Units/ML 10 ML Vial SUBCUT ONE (09:29)
[2019-01-27] MEDS ORDERED: Ondansetron 4 MG Tab.DIS PO PRN (09:51)
[2019-01-27] MEDS ORDERED: Ondansetron 4 MG/2 ML SDV IVPUSH PRN (09:51)
[2019-01-27] MEDS ORDERED: Sodium Chloride 0.9% 1,000 ML IV SCH (10:00)
[2019-01-27] MEDS: Polyethylene Glycol 3350 Powder 17 GM Packet PO SCH (11:17)
[2019-01-27] MEDS: Enoxaparin 40 MG/0.4 ML Syringe SUBCUT SCH (11:17)
[2019-01-27] MEDS: LORazepam 1 MG Tab PO SCH ×2 (13:45→21:23)
[2019-01-27] MEDS: diphenhydrAMINE 50 MG Cap PO PRN ×2 (14:45→14:50)
[2019-01-27] MEDS: Morphine 15 MG Tab.ER PO SCH (14:45)
--- NOTE | 2019-01-27 15:03 | PCM.HP ---
<Arnav Hector Palumbo - Last Filed: 01/27/19 14:56> H&P History of Present Illness - General Date of Service: 01/27/19 Admit Problem/Dx: Admission Diagnosis/Problem Admission Diagnosis/Problem Hyperglycemia - History of Present Illness Initial Comments - Free Text/Narative: 28 y/o female with type 1 diabetes on insulin, chronic back pain on morphine who presented today to the ER complaining of nausea and feeling weak. She stated that she was feeling like she was going into DKA. State she has been taking her medications as indicated. No recent illness. She last took her morphine yesterday. Has been seeing Dr. Black for her medical issues. Denies any vomiting, chest pain, dyspnea, abdominal pain, dysuria, diarrhea. She does endorse constipation. Has not had a bowel movement in over 1 week. States that's normal for her. Middle Abdomen Pain Score (Numeric/FACES): 9 left flank Pain Score (Numeric/FACES): 9 - Related Data Allergies/Adverse Reactions: Allergies Allergy/AdvReac Type Severity Reaction Status Date / Time acetaminophen [From Tylenol] Allergy Liver Verified 01/27/19 13:57 Problems amoxicillin Allergy Hives Verified 01/27/19 13:57 amoxicillin trihydrate Allergy Hives Verified 01/27/19 13:57 [From Amoxil] ibuprofen Allergy Liver Verified 01/27/19 13:57 Problems ketorolac tromethamine Allergy Hives Verified 01/27/19 13:57 [From Toradol] metoclopramide HCl Allergy Airway Verified 01/27/19 13:57 [From Reglan] Tightness tramadol Allergy Hives Verified 01/27/19 13:57 haldol Allergy Swelling Uncoded 01/27/19 13:57 Home Medications: Home Meds FLUoxetine HCl [Fluoxetine HCl] 40 mg PO DAILY 01/27/19 [History] Insulin Degludec [Tresiba] 26 unit SQ DAILY 01/27/19 [History] Insulin Regular, Human [Novolin R] 0 unit SUBCUT ASDIRECTED 01/27/19 [History] LORazepam 1 mg PO TID 01/27/19 [History] Levothyroxine [Levothroid] 137 mcg PO ACBREAKFAST 01/27/19 [History] Morphine 15 mg PO Q4H PRN 01/27/19 [History] Rosuvastatin [Crestor] 5 mg PO DAILY 01/27/19 [History] levETIRAcetam [Keppra] 500 mg PO BID 01/27/19 [History] tiZANidine [Zanaflex] 4 mg PO BID 01/27/19 [History] Past Medical History - Past Health History Medical/Surgical History: Denies Medical/Surgical History HEENT History: Reports: Allergic Rhinitis Other HEENT History: dental abcess Cardiovascular History: Reports: None Respiratory History: Reports: Asthma Gastrointestinal History: Reports: GI Bleed, Hepatitis, PUD, Other (See Below) Other Gastrointestinal History: hx of C-diff, hx of Hepatitis B Genitourinary History: Reports: UTI, Recurrent Other Genitourinary History: current UTI [employer] History: Reports: Other (See Below) Other OB/BYN History: had miscarriage twice Musculoskeletal History: Reports: Back Pain, Chronic, Fracture Neurological History: Reports: Migraines, Seizure, Other (See Below) 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 Psychiatric History: Reports: Anxiety, Depression Endocrine/Metabolic History: Reports: Diabetes, Type I, Hypothyroidism Other Endocrine/Metabolic History: recurrent admission for DKA Hematologic History: Reports: Anemia, Blood Transfusion(s) Immunologic History: Reports: None Oncologic (Cancer) History: Reports: None Dermatologic History: Reports: Other (See Below) Other Dermatologic History: wound dishiscence causing port removal R upper chest --dehiscence from inadequate diet - Infectious Disease History Infectious Disease History: Reports: Chicken Pox, Hepatitis B - Past Surgical History Head Surgeries/Procedures: Reports: None HEENT Surgical History: Reports: Tonsillectomy Cardiovascular Surgical History: Reports: None Respiratory Surgical History: Reports: None GI Surgical History: Reports: Appendectomy, Cholecystectomy, ERCP Female Surgical History: Reports: None Endocrine Surgical History: Reports: None Neurological Surgical History: Reports: None Musculoskeletal Surgical History: Reports: None Oncologic Surgical History: Reports: None Dermatological Surgical History: Reports: None - History Comment History Comment: She has had over [address] scans in the last 4 years. Social & Family History - Family History Family Medical History: Noncontributory HEENT: Reports: Impaired Vision Cardiac: Reports: Heart Failure Respiratory: Reports: Asthma GI: Reports: None : Reports: Renal Disease/Insufficiency OBGYN: Reports: Musculoskeletal: Reports: Back pain, Chronic Neurological: Reports: Seizure Psychiatric: Reports: None Endocrine/Metabolic: Reports: Diabetes, Type I Hematologic: Reports: None Immunologic: Reports: None Dermatologic: Reports: None Oncologic: Reports: Breast, Cervix - Tobacco Use Smoking Status *Q: Former Smoker Years of Tobacco use: 7 Packs/Tins Daily: 1.5 Used Tobacco, but Quit: Yes Month/Year Tobacco Last Used: 10/30/2017 Second Hand Smoke Exposure: Yes - Caffeine Use Caffeine Use: Reports: Soda Caffeine Use Comment: approximately 1 drink/day - Recreational Drug Use Recreational Drug Use: No - Living Situation & Occupation Living situation: Reports: with Significant Other, with Family, Other Occupation: Unemployed H&P Review of Systems - Review of Systems: Review Of Systems: ROS reveals no pertinent complaints other than HPI. Exam - Exam Exam: See Below - Vital Signs Vital Signs: Last Vital Signs Temp 36.9 C 01/27/19 11:00 Pulse 98 01/27/19 11:00 Resp 15 01/27/19 11:00 BP 106/57 L 01/27/19 11:00 Pulse Ox 96 01/27/19 11:00 Weight: 56.109 kg - Exam General: Alert, Oriented, Cooperative HEENT: Pupils Reactive Lungs: Clear to Auscultation, Normal Respiratory Effort Cardiovascular: Regular Rate, Regular Rhythm GI/Abdominal Exam: Other (hypoactive bowel sounds, diffuse tenderness) Extremities: Normal Inspection Skin: Warm, Dry - Patient Data Lab Results Last 24 hrs: Laboratory Results - last 24 hr 01/27/19 01/27/19 01/27/19 Range/Units 08:00 08:00 08:15 WBC 6.19 (4.0-11.0) K/uL RBC 4.51 (4.30-5.90) M/uL Hgb 11.5 L (12.0-16.0) g/dL Hct 37.3 (36.0-46.0) % MCV 82.7 (80.0-98.0) fL MCH 25.5 L (27.0-32.0) pg MCHC 30.8 L (31.0-37.0) g/dL RDW Std Deviation 53.4 (28.0-62.0) fl RDW Coeff of Zak 18 H (11.0-15.0) % Plt Count 423 H (150-400) K/uL MPV 9.60 (7.40-12.00) fL Neut % (Auto) 45.0 L (48.0-80.0) % Lymph % (Auto) 45.6 H (16.0-40.0) % Crane % (Auto) 6.0 (0.0-15.0) % Eos % (Auto) 2.4 (0.0-7.0) % Baso % (Auto) 1.0 (0.0-1.5) % Neut # (Auto) 2.8 (1.4-5.7) K/uL Lymph # (Auto) 2.8 H (0.6-2.4) K/uL Crane # (Auto) 0.4 (0.0-0.8) K/uL Eos # (Auto) 0.2 (0.0-0.7) K/uL Baso # (Auto) 0.1 (0.0-0.1) K/uL Nucleated RBC % 0.0 /100WBC Nucleated RBCs # 0 K/uL ABG pH (7.35-7.45) ABG pCO2 (35-45) mmHG ABG pO2 (75-100) mmHG ABG HCO3 (22-26) mEq/L ABG Total CO2 ABG Base Excess (-2.0-2.0) Sodium (136-145) mmol/L Potassium (3.5-5.1) mmol/L Chloride (98-107) mmol/L Carbon Dioxide (21.0-32.0) mmol/L BUN (7.0-18.0) mg/dL Creatinine (0.6-1.0) mg/dL Est Cr Clr Drug Dosing mL/min Estimated GFR (MDRD) ml/min Glucose (74-106) mg/dL POC Glucose (60-110) mg/dL Calcium (8.5-10.1) mg/dL Total Bilirubin (0.2-1.0) mg/dL AST (15-37) IU/L ALT (14-63) IU/L Alkaline Phosphatase (46-116) U/L Total Protein (6.4-8.2) g/dL Albumin (3.4-5.0) g/dL Globulin (2.6-4.0) g/dL Albumin/Globulin Ratio (0.9-1.6) Urine Color YELLOW Urine Appearance CLEAR Urine pH 6.0 (5.0-8.0) Ur Specific [place] 1.015 (1.001-1.035) Urine Protein NEGATIVE (NEGATIVE) mg/dL Urine Glucose (UA) >=1000 (NEGATIVE) mg/dL Urine Ketones 40 H (NEGATIVE) mg/dL Urine Occult Blood NEGATIVE (NEGATIVE) Urine Nitrite NEGATIVE (NEGATIVE) Urine Bilirubin NEGATIVE (NEGATIVE) Urine Urobilinogen 0.2 (<2.0) EU/dL Ur Leukocyte Esterase NEGATIVE (NEGATIVE) Urine HCG, Qual NEGATIVE (NEGATIVE) 01/27/19 01/27/19 01/27/19 Range/Units 08:15 08:18 09:49 WBC (4.0-11.0) K/uL RBC (4.30-5.90) M/uL Hgb (12.0-16.0) g/dL Hct (36.0-46.0) % MCV (80.0-98.0) fL MCH (27.0-32.0) pg MCHC (31.0-37.0) g/dL RDW Std Deviation (28.0-62.0) fl RDW Coeff of Zak (11.0-15.0) % Plt Count (150-400) K/uL MPV (7.40-12.00) fL Neut % (Auto) (48.0-80.0) % Lymph % (Auto) (16.0-40.0) % Crane % (Auto) (0.0-15.0) % Eos % (Auto) (0.0-7.0) % Baso % (Auto) (0.0-1.5) % Neut # (Auto) (1.4-5.7) K/uL Lymph # (Auto) (0.6-2.4) K/uL Crane # (Auto) (0.0-0.8) K/uL Eos # (Auto) (0.0-0.7) K/uL Baso # (Auto) (0.0-0.1) K/uL Nucleated RBC % /100WBC Nucleated RBCs # K/uL ABG pH 7.362 (7.35-7.45) ABG pCO2 26 L (35-45) mmHG ABG pO2 100 (75-100) mmHG ABG HCO3 15 L (22-26) mEq/L ABG Total CO2 13.8 ABG Base Excess -9.1 L (-2.0-2.0) Sodium 130 L (136-145) mmol/L Potassium 4.3 (3.5-5.1) mmol/L Chloride 97 L (98-107) mmol/L Carbon Dioxide 17.3 L (21.0-32.0) mmol/L BUN 14 (7.0-18.0) mg/dL Creatinine 0.7 (0.6-1.0) mg/dL Est Cr Clr Drug Dosing 85.18 mL/min Estimated GFR (MDRD) > 60.0 ml/min Glucose 420 H (74-106) mg/dL POC Glucose 361 H (60-110) mg/dL Calcium 8.8 (8.5-10.1) mg/dL Total Bilirubin 0.4 (0.2-1.0) mg/dL AST 25 (15-37) IU/L ALT 43 (14-63) IU/L Alkaline Phosphatase 209 H (46-116) U/L Total Protein 7.5 (6.4-8.2) g/dL Albumin 3.4 (3.4-5.0) g/dL Globulin 4.1 H (2.6-4.0) g/dL Albumin/Globulin Ratio 0.8 L (0.9-1.6) Urine Color Urine Appearance Urine pH (5.0-8.0) Ur Specific [place] (1.001-1.035) Urine Protein (NEGATIVE) mg/dL Urine Glucose (UA) (NEGATIVE) mg/dL Urine Ketones (NEGATIVE) mg/dL Urine Occult Blood (NEGATIVE) Urine Nitrite (NEGATIVE) Urine Bilirubin (NEGATIVE) Urine Urobilinogen (<2.0) EU/dL Ur Leukocyte Esterase (NEGATIVE) Urine HCG, Qual (NEGATIVE) 01/27/19 01/27/19 Range/Units 10:51 12:26 WBC (4.0-11.0) K/uL RBC (4.30-5.90) M/uL Hgb (12.0-16.0) g/dL Hct (36.0-46.0) % MCV (80.0-98.0) fL MCH (27.0-32.0) pg MCHC (31.0-37.0) g/dL RDW Std Deviation (28.0-62.0) fl RDW Coeff of Zak (11.0-15.0) % Plt Count (150-400) K/uL MPV (7.40-12.00) fL Neut % (Auto) (48.0-80.0) % Lymph % (Auto) (16.0-40.0) % Crane % (Auto) (0.0-15.0) % Eos % (Auto) (0.0-7.0) % Baso % (Auto) (0.0-1.5) % Neut # (Auto) (1.4-5.7) K/uL Lymph # (Auto) (0.6-2.4) K/uL Crane # (Auto) (0.0-0.8) K/uL Eos # (Auto) (0.0-0.7) K/uL Baso # (Auto) (0.0-0.1) K/uL Nucleated RBC % /100WBC Nucleated RBCs # K/uL ABG pH (7.35-7.45) ABG pCO2 (35-45) mmHG ABG pO2 (75-100) mmHG ABG HCO3 (22-26) mEq/L ABG Total CO2 ABG Base Excess (-2.0-2.0) Sodium (136-145) mmol/L Potassium (3.5-5.1) mmol/L Chloride (98-107) mmol/L Carbon Dioxide (21.0-32.0) mmol/L BUN (7.0-18.0) mg/dL Creatinine (0.6-1.0) mg/dL Est Cr Clr Drug Dosing mL/min Estimated GFR (MDRD) ml/min Glucose (74-106) mg/dL POC Glucose 248 H 133 H (60-110) mg/dL Calcium (8.5-10.1) mg/dL Total Bilirubin (0.2-1.0) mg/dL AST (15-37) IU/L ALT (14-63) IU/L Alkaline Phosphatase (46-116) U/L Total Protein (6.4-8.2) g/dL Albumin (3.4-5.0) g/dL Globulin (2.6-4.0) g/dL Albumin/Globulin Ratio (0.9-1.6) Urine Color Urine Appearance Urine pH (5.0-8.0) Ur Specific [place] (1.001-1.035) Urine Protein (NEGATIVE) mg/dL Urine Glucose (UA) (NEGATIVE) mg/dL Urine Ketones (NEGATIVE) mg/dL Urine Occult Blood (NEGATIVE) Urine Nitrite (NEGATIVE) Urine Bilirubin (NEGATIVE) Urine Urobilinogen (<2.0) EU/dL Ur Leukocyte Esterase (NEGATIVE) Urine HCG, Qual (NEGATIVE) Result Diagrams: 01/27/19 08:15 01/27/19 08:15 Problem List Initiated/Reviewed/Updated: Yes Orders Last 24hrs: Active Orders 24 hr Category Date Time Status Patient Status [ADT] Routine ADT 01/27/19 09:51 Active Blood Glucose Check, Bedside [RC] WITHMEALSANDBED Care 01/27/19 09:51 Active Oxygen Therapy [RC] PRN Care 01/27/19 09:51 Active Up ad [place] [RC] ASDIRECTED Care 01/27/19 09:51 Active VTE/DVT Education [RC] PER UNIT ROUTINE Care 01/27/19 09:51 Active [place] [employer] Diet [DIET] Diet 01/27/19 Breakfast Active COMPREHENSIVE METABOLIC PN,CMP [CHEM] Routine Lab 01/27/19 17:00 Ordered Enoxaparin [Lovenox] Med 01/27/19 10:00 Active 40 mg SUBCUT Q24H FLUoxetine [PROzac] Med 01/28/19 09:00 Active 40 mg PO DAILY Insulin Aspart [NovoLOG] Med 01/27/19 17:00 Active See Protocol SUBCUT TIDAC Insulin Glarg,Human.Rec.Analog [LantUS Solostar] Med 01/27/19 21:00 Active 20 units SUBCUT BEDTIME LORazepam [Ativan] Med 01/27/19 14:00 Active 1 mg PO TID Levothyroxine Med 01/28/19 07:30 Active 112 mcg PO ACBREAKFAST Levothyroxine Med 01/28/19 07:30 Active 25 mcg PO ACBREAKFAST Morphine [MS Contin] Med 01/27/19 14:15 Active 60 mg PO DAILY Ondansetron [Zofran ODT] Med 01/27/19 09:51 Active 4 mg PO Q4H PRN Ondansetron [Zofran] Med 01/27/19 09:51 Active 4 mg IVPUSH Q4H PRN Polyethylene Glycol 3350 [MiraLAX] Med 01/27/19 10:00 Active 17 gm PO DAILY Sodium Chloride 0.9% [Normal Saline] 1,000 ml Med 01/27/19 10:00 Active IV ASDIRECTED diphenhydrAMINE [Benadryl] Med 01/27/19 14:14 Active 50 mg PO Q8H PRN levETIRAcetam [Keppra] Med 01/27/19 21:00 Active 500 mg PO BID Resuscitation Status Routine Resus Stat 01/27/19 09:51 Ordered Medication Orders Diphenhydramine HCl (Benadryl) 50 mg PO Q8H PRN PRN Reason: Itching Last Admin: 01/27/19 14:50 Dose: 50 mg Enoxaparin Sodium (Lovenox) 40 mg SUBCUT Q24H [facility] Last Admin: 01/27/19 11:17 Dose: 40 mg Fluoxetine HCl (Prozac) 40 mg PO DAILY [facility] Sodium Chloride (Normal Saline) 1,000 mls @ 150 mls/hr IV ASDIRECTED PIPPA Stop: 01/27/19 16:39 Last Admin: 01/27/19 11:17 Dose: 150 mls/hr Insulin Aspart (Novolog) 0 unit SUBCUT TIDAC PIPPA; Protocol Insulin Glargine (Lantus Solostar) 20 units SUBCUT BEDTIME PIPPA Levetiracetam (Keppra) 500 mg PO BID [facility] Levothyroxine Sodium (Levothyroxine) 112 mcg PO ACBREAKFAST PIPPA Levothyroxine Sodium (Levothyroxine) 25 mcg PO ACBREAKFAST PIPPA Lorazepam (Ativan) 1 mg PO TID [facility] Last Admin: 01/27/19 13:45 Dose: 1 mg Morphine Sulfate (Ms Contin) 60 mg PO DAILY [facility] Last Admin: 01/27/19 14:45 Dose: 60 mg Ondansetron HCl (Zofran Odt) 4 mg PO Q4H PRN PRN Reason: nausea, able to take PO Ondansetron HCl (Zofran) 4 mg IVPUSH Q4H PRN PRN Reason: Nausea Last Admin: 01/27/19 11:26 Dose: 4 mg Polyethylene Glycol (Miralax) 17 gm PO DAILY [facility] Last Admin: 01/27/19 11:17 Dose: 17 gm Assessment/Plan Comment:: A: 1. Hyperglycemia 2. Type 1 diabetes on insulin 3. Chronic back pain 4. Constipation P: 1. Type 1 diabetes. Will start lantus 20 u SQ at night. ISS. Diabetic diet. On fluids for 1 liter. 2. Chronic pain- Patient taking Morphine IS and ER as outpatient. Will resume her outpatient regiment with morphine ER 60 mg PO once and Morphine IR 15 mg PO once for breakthrough. 3. Constipation- miralax and fleet enemas. Dispo: likely dc tomorrow. <Kash Salgado - Last Filed: 01/27/19 16:49> H&P History of Present Illness - General Admit Problem/Dx: Admission Diagnosis/Problem Admission Diagnosis/Problem Hyperglycemia I have seen and examined the patient independently of Dr. Arnav MD. I have reviewed and agree with the plan of care as outlined by Dr. José and agree with the plan as outlined by this resident. I have discussed the case with the resident. Please see orders. Exam - Vital Signs Vital Signs: Last Vital Signs Temp 36.9 C 01/27/19 11:00 Pulse 98 01/27/19 11:00 Resp 15 01/27/19 11:00 BP 106/57 L 01/27/19 11:00 Pulse Ox 96 01/27/19 11:00 - Patient Data Lab Results Last 24 hrs: Laboratory Results - last 24 hr 01/27/19 01/27/19 01/27/19 Range/Units 08:00 08:00 08:15 WBC 6.19 (4.0-11.0) K/uL RBC 4.51 (4.30-5.90) M/uL Hgb 11.5 L (12.0-16.0) g/dL Hct 37.3 (36.0-46.0) % MCV 82.7 (80.0-98.0) fL MCH 25.5 L (27.0-32.0) pg MCHC 30.8 L (31.0-37.0) g/dL RDW Std Deviation 53.4 (28.0-62.0) fl RDW Coeff of Zak 18 H (11.0-15.0) % Plt Count 423 H (150-400) K/uL MPV 9.60 (7.40-12.00) fL Neut % (Auto) 45.0 L (48.0-80.0) % Lymph % (Auto) 45.6 H (16.0-40.0) % Crane % (Auto) 6.0 (0.0-15.0) % Eos % (Auto) 2.4 (0.0-7.0) % Baso % (Auto) 1.0 (0.0-1.5) % Neut # (Auto) 2.8 (1.4-5.7) K/uL Lymph # (Auto) 2.8 H (0.6-2.4) K/uL Crane # (Auto) 0.4 (0.0-0.8) K/uL Eos # (Auto) 0.2 (0.0-0.7) K/uL Baso # (Auto) 0.1 (0.0-0.1) K/uL Nucleated RBC % 0.0 /100WBC Nucleated RBCs # 0 K/uL ABG pH (7.35-7.45) ABG pCO2 (35-45) mmHG ABG pO2 (75-100) mmHG ABG HCO3 (22-26) mEq/L ABG Total CO2 ABG Base Excess (-2.0-2.0) Sodium (136-145) mmol/L Potassium (3.5-5.1) mmol/L Chloride (98-107) mmol/L Carbon Dioxide (21.0-32.0) mmol/L BUN (7.0-18.0) mg/dL Creatinine (0.6-1.0) mg/dL Est Cr Clr Drug Dosing mL/min Estimated GFR (MDRD) ml/min Glucose (74-106) mg/dL POC Glucose (60-110) mg/dL Calcium (8.5-10.1) mg/dL Total Bilirubin (0.2-1.0) mg/dL AST (15-37) IU/L ALT (14-63) IU/L Alkaline Phosphatase (46-116) U/L Total Protein (6.4-8.2) g/dL Albumin (3.4-5.0) g/dL Globulin (2.6-4.0) g/dL Albumin/Globulin Ratio (0.9-1.6) Urine Color YELLOW Urine Appearance CLEAR Urine pH 6.0 (5.0-8.0) Ur Specific [place] 1.015 (1.001-1.035) Urine Protein NEGATIVE (NEGATIVE) mg/dL Urine Glucose (UA) >=1000 (NEGATIVE) mg/dL Urine Ketones 40 H (NEGATIVE) mg/dL Urine Occult Blood NEGATIVE (NEGATIVE) Urine Nitrite NEGATIVE (NEGATIVE) Urine Bilirubin NEGATIVE (NEGATIVE) Urine Urobilinogen 0.2 (<2.0) EU/dL Ur Leukocyte Esterase NEGATIVE (NEGATIVE) Urine HCG, Qual NEGATIVE (NEGATIVE) 01/27/19 01/27/19 01/27/19 Range/Units 08:15 08:18 09:49 WBC (4.0-11.0) K/uL RBC (4.30-5.90) M/uL Hgb (12.0-16.0) g/dL Hct (36.0-46.0) % MCV (80.0-98.0) fL MCH (27.0-32.0) pg MCHC (31.0-37.0) g/dL RDW Std Deviation (28.0-62.0) fl RDW Coeff of Zak (11.0-15.0) % Plt Count (150-400) K/uL MPV (7.40-12.00) fL Neut % (Auto) (48.0-80.0) % Lymph % (Auto) (16.0-40.0) % Crane % (Auto) (0.0-15.0) % Eos % (Auto) (0.0-7.0) % Baso % (Auto) (0.0-1.5) % Neut # (Auto) (1.4-5.7) K/uL Lymph # (Auto) (0.6-2.4) K/uL Crane # (Auto) (0.0-0.8) K/uL Eos # (Auto) (0.0-0.7) K/uL Baso # (Auto) (0.0-0.1) K/uL Nucleated RBC % /100WBC Nucleated RBCs # K/uL ABG pH 7.362 (7.35-7.45) ABG pCO2 26 L (35-45) mmHG ABG pO2 100 (75-100) mmHG ABG HCO3 15 L (22-26) mEq/L ABG Total CO2 13.8 ABG Base Excess -9.1 L (-2.0-2.0) Sodium 130 L (136-145) mmol/L Potassium 4.3 (3.5-5.1) mmol/L Chloride 97 L (98-107) mmol/L Carbon Dioxide 17.3 L (21.0-32.0) mmol/L BUN 14 (7.0-18.0) mg/dL Creatinine 0.7 (0.6-1.0) mg/dL Est Cr Clr Drug Dosing 85.18 mL/min Estimated GFR (MDRD) > 60.0 ml/min Glucose 420 H (74-106) mg/dL POC Glucose 361 H (60-110) mg/dL Calcium 8.8 (8.5-10.1) mg/dL Total Bilirubin 0.4 (0.2-1.0) mg/dL AST 25 (15-37) IU/L ALT 43 (14-63) IU/L Alkaline Phosphatase 209 H (46-116) U/L Total Protein 7.5 (6.4-8.2) g/dL Albumin 3.4 (3.4-5.0) g/dL Globulin 4.1 H (2.6-4.0) g/dL Albumin/Globulin Ratio 0.8 L (0.9-1.6) Urine Color Urine Appearance Urine pH (5.0-8.0) Ur Specific [place] (1.001-1.035) Urine Protein (NEGATIVE) mg/dL Urine Glucose (UA) (NEGATIVE) mg/dL Urine Ketones (NEGATIVE) mg/dL Urine Occult Blood (NEGATIVE) Urine Nitrite (NEGATIVE) Urine Bilirubin (NEGATIVE) Urine Urobilinogen (<2.0) EU/dL Ur Leukocyte Esterase (NEGATIVE) Urine HCG, Qual (NEGATIVE) 01/27/19 01/27/19 Range/Units 10:51 12:26 WBC (4.0-11.0) K/uL RBC (4.30-5.90) M/uL Hgb (12.0-16.0) g/dL Hct (36.0-46.0) % MCV (80.0-98.0) fL MCH (27.0-32.0) pg MCHC (31.0-37.0) g/dL RDW Std Deviation (28.0-62.0) fl RDW Coeff of Zak (11.0-15.0) % Plt Count (150-400) K/uL MPV (7.40-12.00) fL Neut % (Auto) (48.0-80.0) % Lymph % (Auto) (16.0-40.0) % Crane % (Auto) (0.0-15.0) % Eos % (Auto) (0.0-7.0) % Baso % (Auto) (0.0-1.5) % Neut # (Auto) (1.4-5.7) K/uL Lymph # (Auto) (0.6-2.4) K/uL Crane # (Auto) (0.0-0.8) K/uL Eos # (Auto) (0.0-0.7) K/uL Baso # (Auto) (0.0-0.1) K/uL Nucleated RBC % /100WBC Nucleated RBCs # K/uL ABG pH (7.35-7.45) ABG pCO2 (35-45) mmHG ABG pO2 (75-100) mmHG ABG HCO3 (22-26) mEq/L ABG Total CO2 ABG Base Excess (-2.0-2.0) Sodium (136-145) mmol/L Potassium (3.5-5.1) mmol/L Chloride (98-107) mmol/L Carbon Dioxide (21.0-32.0) mmol/L BUN (7.0-18.0) mg/dL Creatinine (0.6-1.0) mg/dL Est Cr Clr Drug Dosing mL/min Estimated GFR (MDRD) ml/min Glucose (74-106) mg/dL POC Glucose 248 H 133 H (60-110) mg/dL Calcium (8.5-10.1) mg/dL Total Bilirubin (0.2-1.0) mg/dL AST (15-37) IU/L ALT (14-63) IU/L Alkaline Phosphatase (46-116) U/L Total Protein (6.4-8.2) g/dL Albumin (3.4-5.0) g/dL Globulin (2.6-4.0) g/dL Albumin/Globulin Ratio (0.9-1.6) Urine Color Urine Appearance Urine pH (5.0-8.0) Ur Specific [place] (1.001-1.035) Urine Protein (NEGATIVE) mg/dL Urine Glucose (UA) (NEGATIVE) mg/dL Urine Ketones (NEGATIVE) mg/dL Urine Occult Blood (NEGATIVE) Urine Nitrite (NEGATIVE) Urine Bilirubin (NEGATIVE) Urine Urobilinogen (<2.0) EU/dL Ur Leukocyte Esterase (NEGATIVE) Urine HCG, Qual (NEGATIVE) Result Diagrams: 01/27/19 08:15 01/27/19 08:15 Orders Last 24hrs: Active Orders 24 hr Category Date Time Status Patient Status [ADT] Routine ADT 01/27/19 09:51 Active Blood Glucose Check, Bedside [RC] WITHMEALSANDBED Care 01/27/19 09:51 Active Oxygen Therapy [RC] PRN Care 01/27/19 09:51 Active Up ad [place] [RC] ASDIRECTED Care 01/27/19 09:51 Active VTE/DVT Education [RC] PER UNIT ROUTINE Care 01/27/19 09:51 Active [employer] Diet [DIET] Diet 01/27/19 Breakfast Active CBC WITH AUTO DIFF [HEME] AM Lab 01/28/19 05:11 Ordered COMPREHENSIVE METABOLIC PN,CMP [CHEM] AM Lab 01/28/19 05:11 Ordered COMPREHENSIVE METABOLIC PN,CMP [CHEM] Routine Lab 01/27/19 17:00 Ordered Enoxaparin [Lovenox] Med 01/27/19 10:00 Active 40 mg SUBCUT Q24H FLUoxetine [PROzac] Med 01/28/19 09:00 Active 40 mg PO DAILY Insulin Aspart [NovoLOG] Med 01/27/19 17:00 Active See Protocol SUBCUT TIDAC Insulin Glarg,Human.Rec.Analog [LantUS Solostar] Med 01/27/19 21:00 Active 20 units SUBCUT BEDTIME LORazepam [Ativan] Med 01/27/19 14:00 Active 1 mg PO TID Levothyroxine Med 01/28/19 07:30 Active 112 mcg PO ACBREAKFAST Levothyroxine Med 01/28/19 07:30 Active 25 mcg PO ACBREAKFAST Morphine [MS Contin] Med 01/27/19 14:15 Active 60 mg PO DAILY Ondansetron [Zofran ODT] Med 01/27/19 09:51 Active 4 mg PO Q4H PRN Ondansetron [Zofran] Med 01/27/19 09:51 Active 4 mg IVPUSH Q4H PRN Polyethylene Glycol 3350 [MiraLAX] Med 01/27/19 10:00 Active 17 gm PO DAILY diphenhydrAMINE [Benadryl] Med 01/27/19 14:14 Active 50 mg PO Q8H PRN levETIRAcetam [Keppra] Med 01/27/19 21:00 Active 500 mg PO BID Resuscitation Status Routine Resus Stat 01/27/19 09:51 Ordered Medication Orders Diphenhydramine HCl (Benadryl) 50 mg PO Q8H PRN PRN Reason: Itching Last Admin: 01/27/19 14:50 Dose: 50 mg Enoxaparin Sodium (Lovenox) 40 mg SUBCUT Q24H [facility] Last Admin: 01/27/19 11:17 Dose: 40 mg Fluoxetine HCl (Prozac) 40 mg PO DAILY [facility] Insulin Aspart (Novolog) 0 unit SUBCUT TIDAC [facility]; Protocol Insulin Glargine (Lantus Solostar) 20 units SUBCUT BEDTIME [facility] Levetiracetam (Keppra) 500 mg PO BID [facility] Levothyroxine Sodium (Levothyroxine) 112 mcg PO ACBREAKFAST [facility] Levothyroxine Sodium (Levothyroxine) 25 mcg PO ACBREAKFAST [facility] Lorazepam (Ativan) 1 mg PO TID [facility] Last Admin: 01/27/19 13:45 Dose: 1 mg Morphine Sulfate (Ms Contin) 60 mg PO DAILY [facility] Last Admin: 01/27/19 14:45 Dose: 60 mg Ondansetron HCl (Zofran Odt) 4 mg PO Q4H PRN PRN Reason: nausea, able to take PO Ondansetron HCl (Zofran) 4 mg IVPUSH Q4H PRN PRN Reason: Nausea Last Admin: 01/27/19 11:26 Dose: 4 mg Polyethylene Glycol (Miralax) 17 gm PO DAILY [facility] Last Admin: 01/27/19 11:17 Dose: 17 gm
[2019-01-27 17:30] LABS: BLOOD UREA NITROGEN,BUN 9 mg/dL (7.0-18.0); CARBON DIOXIDE,CO2 16.5 mmol/L (21.0-32.0); CHLORIDE,CL 106 mmol/L (98-107); GLUCOSE RANDOM 168 mg/dL (74-106); POTASSIUM,K 4.4 mmol/L (3.5-5.1); SODIUM,NA 138 mmol/L (136-145)
[2019-01-27] MEDS: Insulin Aspart 100 Units/ML 3 ML Pen SUBCUT SCH (18:00)
[2019-01-27] MEDS ORDERED: diphenhydrAMINE 12.5 MG/5 ML Liquid 5 ML UD Cup PO PRN (18:12)
[2019-01-27] MEDS ORDERED: Insulin Glargine,Human Rec. Analog 100 Units/ML 3 ML Pen SUBCUT SCH (21:00)
[2019-01-27] MEDS: levETIRAcetam 500 MG Tab PO SCH (21:28)
[2019-01-28 06:08] LABS: BLOOD UREA NITROGEN,BUN 10 mg/dL (7.0-18.0); CHLORIDE,CL 107 mmol/L (98-107); GLUCOSE RANDOM 262 mg/dL (74-106); SODIUM,NA 137 mmol/L (136-145)
[2019-01-28] MEDS: LORazepam 1 MG Tab PO SCH (06:38)
[2019-01-28] MEDS ORDERED: Levothyroxine 112 MCG Tab PO SCH (07:30)
[2019-01-28] MEDS ORDERED: Levothyroxine 25 MCG Tab PO SCH (07:30)
[2019-01-28 07:41] VITALS: BP 106/72; PULSE 81
[2019-01-28] MEDS ORDERED: FLUoxetine 20 MG Cap PO SCH (09:00)
--- NOTE | 2019-01-28 09:11 | PCM.DCSUM1 ---
<Hector Salazar - Last Filed: 01/28/19 09:05> Discharge Summary - Hospital Course Free Text/Narrative:: 28 y/o female with type 1 diabetes, chronic back pain who presented to the ER complaining of nausea, vomiting. In the ER, she was found to be hyperglycemic 400's. ABG was negative for acidosis. She was admitted for nausea, vomiting and hyperglycemia. She was started on ISS and lantus 20 mg units at night. In addition, she was re-started on her pain medication Morphine ER 60 mg PO daily since she states she had finished her pain medications one day earlier. She was aggressively hydrated and her symptoms improved during this hospitalization. At time of discharge, she was provided with a script written by Dr. Black for Morphine 15 mg PO QID as needed for pain. She was instructed to take her insulin and follow-up with Dr. Black. - Discharge Data Discharge Date: 01/28/19 Discharge Disposition: Home, Self-Care 01 Condition: Stable - Patient Instructions Diet: Regular Diet as Tolerated Notify Provider of: Fever, Increased Pain, Swelling and Redness, Nausea and/or Vomiting - Discharge Plan *PRESCRIPTION DRUG MONITORING PROGRAM REVIEWED*: Not Applicable *COPY OF PRESCRIPTION DRUG MONITORING REPORT IN PATIENT DEWEY: Not Applicable Home Medications: Home Meds FLUoxetine HCl [Fluoxetine HCl] 40 mg PO DAILY 01/27/19 [History] Insulin Degludec [Tresiba] 26 unit SQ DAILY 01/27/19 [History] Insulin Regular, Human [Novolin R] 0 unit SUBCUT ASDIRECTED 01/27/19 [History] LORazepam 1 mg PO TID 01/27/19 [History] Levothyroxine [Levothroid] 137 mcg PO ACBREAKFAST 01/27/19 [History] Morphine 15 mg PO Q4H PRN 01/27/19 [History] Rosuvastatin [Crestor] 5 mg PO DAILY 01/27/19 [History] levETIRAcetam [Keppra] 500 mg PO BID 01/27/19 [History] tiZANidine [Zanaflex] 4 mg PO BID 01/27/19 [History] Patient Handouts: Hyperglycemia, [id number], Morphine immediate release tablets Referrals: [facility] [Outside] Maynor Black MD [Primary Care Provider] - 02/12/19 9:00 am - Discharge Summary/Plan Comment DC Time >30 min.: No - Patient Data Vitals - Most Recent: Last Vital Signs Temp 36.7 C 01/28/19 07:40 Pulse 81 01/28/19 07:40 Resp 12 01/28/19 07:40 BP 106/72 01/28/19 07:40 Pulse Ox 96 01/28/19 07:40 Weight - Most Recent: 56.109 kg I&O - Last 24 hours: Intake & Output 01/27/19 01/28/19 01/28/19 22:59 06:59 14:59 Intake Total 713 600 Output Total 700 1700 Balance 13 -1100 Lab Results - Last 24 hrs: Laboratory Results - last 24 hr 01/27/19 01/27/19 01/27/19 Range/Units 09:49 10:51 12:26 WBC (4.0-11.0) K/uL RBC (4.30-5.90) M/uL Hgb (12.0-16.0) g/dL Hct (36.0-46.0) % MCV (80.0-98.0) fL MCH (27.0-32.0) pg MCHC (31.0-37.0) g/dL RDW Std Deviation (28.0-62.0) fl RDW Coeff of Zak (11.0-15.0) % Plt Count (150-400) K/uL MPV (7.40-12.00) fL Neut % (Auto) (48.0-80.0) % Lymph % (Auto) (16.0-40.0) % Schleicher % (Auto) (0.0-15.0) % Eos % (Auto) (0.0-7.0) % Baso % (Auto) (0.0-1.5) % Neut # (Auto) (1.4-5.7) K/uL Lymph # (Auto) (0.6-2.4) K/uL Schleicher # (Auto) (0.0-0.8) K/uL Eos # (Auto) (0.0-0.7) K/uL Baso # (Auto) (0.0-0.1) K/uL Nucleated RBC % /100WBC Nucleated RBCs # K/uL Sodium (136-145) mmol/L Potassium (3.5-5.1) mmol/L Chloride (98-107) mmol/L Carbon Dioxide (21.0-32.0) mmol/L BUN (7.0-18.0) mg/dL Creatinine (0.6-1.0) mg/dL Est Cr Clr Drug Dosing mL/min Estimated GFR (MDRD) ml/min Glucose (74-106) mg/dL POC Glucose 361 H 248 H 133 H (60-110) mg/dL Calcium (8.5-10.1) mg/dL Total Bilirubin (0.2-1.0) mg/dL AST (15-37) IU/L ALT (14-63) IU/L Alkaline Phosphatase (46-116) U/L Total Protein (6.4-8.2) g/dL Albumin (3.4-5.0) g/dL Globulin (2.6-4.0) g/dL Albumin/Globulin Ratio (0.9-1.6) 01/27/19 01/27/19 01/27/19 Range/Units 16:48 17:01 20:50 WBC (4.0-11.0) K/uL RBC (4.30-5.90) M/uL Hgb (12.0-16.0) g/dL Hct (36.0-46.0) % MCV (80.0-98.0) fL MCH (27.0-32.0) pg MCHC (31.0-37.0) g/dL RDW Std Deviation (28.0-62.0) fl RDW Coeff of Zak (11.0-15.0) % Plt Count (150-400) K/uL MPV (7.40-12.00) fL Neut % (Auto) (48.0-80.0) % Lymph % (Auto) (16.0-40.0) % Schleicher % (Auto) (0.0-15.0) % Eos % (Auto) (0.0-7.0) % Baso % (Auto) (0.0-1.5) % Neut # (Auto) (1.4-5.7) K/uL Lymph # (Auto) (0.6-2.4) K/uL Schleicher # (Auto) (0.0-0.8) K/uL Eos # (Auto) (0.0-0.7) K/uL Baso # (Auto) (0.0-0.1) K/uL Nucleated RBC % /100WBC Nucleated RBCs # K/uL Sodium 138 (136-145) mmol/L Potassium 4.4 (3.5-5.1) mmol/L Chloride 106 (98-107) mmol/L Carbon Dioxide 16.5 L (21.0-32.0) mmol/L BUN 9 (7.0-18.0) mg/dL Creatinine 0.4 L (0.6-1.0) mg/dL Est Cr Clr Drug Dosing 149.06 mL/min Estimated GFR (MDRD) > 60.0 ml/min Glucose 168 H (74-106) mg/dL POC Glucose 156 H 324 H (60-110) mg/dL Calcium 7.5 L (8.5-10.1) mg/dL Total Bilirubin 0.3 (0.2-1.0) mg/dL AST 90 H (15-37) IU/L ALT 55 (14-63) IU/L Alkaline Phosphatase 169 H (46-116) U/L Total Protein 5.6 L (6.4-8.2) g/dL Albumin 2.7 L (3.4-5.0) g/dL Globulin 2.9 (2.6-4.0) g/dL Albumin/Globulin Ratio 0.9 (0.9-1.6) 01/28/19 01/28/19 01/28/19 Range/Units 04:54 04:54 06:41 WBC 5.44 (4.0-11.0) K/uL RBC 3.92 L (4.30-5.90) M/uL Hgb 9.9 L (12.0-16.0) g/dL Hct 32.5 L (36.0-46.0) % MCV 82.9 (80.0-98.0) fL MCH 25.3 L (27.0-32.0) pg MCHC 30.5 L (31.0-37.0) g/dL RDW Std Deviation 54.2 (28.0-62.0) fl RDW Coeff of Zak 18 H (11.0-15.0) % Plt Count 381 (150-400) K/uL MPV 9.90 (7.40-12.00) fL Neut % (Auto) 39.6 L (48.0-80.0) % Lymph % (Auto) 50.2 H (16.0-40.0) % Schleicher % (Auto) 6.8 (0.0-15.0) % Eos % (Auto) 2.8 (0.0-7.0) % Baso % (Auto) 0.6 (0.0-1.5) % Neut # (Auto) 2.2 (1.4-5.7) K/uL Lymph # (Auto) 2.7 H (0.6-2.4) K/uL Schleicher # (Auto) 0.4 (0.0-0.8) K/uL Eos # (Auto) 0.2 (0.0-0.7) K/uL Baso # (Auto) 0.0 (0.0-0.1) K/uL Nucleated RBC % 0.0 /100WBC Nucleated RBCs # 0 K/uL Sodium 137 (136-145) mmol/L Potassium 4.0 (3.5-5.1) mmol/L Chloride 107 (98-107) mmol/L Carbon Dioxide 21.0 (21.0-32.0) mmol/L BUN 10 (7.0-18.0) mg/dL Creatinine 0.7 (0.6-1.0) mg/dL Est Cr Clr Drug Dosing 85.18 mL/min Estimated GFR (MDRD) > 60.0 ml/min Glucose 262 H (74-106) mg/dL POC Glucose 196 H (60-110) mg/dL Calcium 8.0 L (8.5-10.1) mg/dL Total Bilirubin 0.2 (0.2-1.0) mg/dL AST 36 (15-37) IU/L ALT 41 (14-63) IU/L Alkaline Phosphatase 167 H (46-116) U/L Total Protein 5.9 L (6.4-8.2) g/dL Albumin 2.6 L (3.4-5.0) g/dL Globulin 3.3 (2.6-4.0) g/dL Albumin/Globulin Ratio 0.8 L (0.9-1.6) Med Orders - Current: Current Medications Diphenhydramine HCl (Benadryl) 50 mg PO Q8H PRN PRN Reason: Itching Last Admin: 01/27/19 21:50 Dose: 50 mg Enoxaparin Sodium (Lovenox) 40 mg SUBCUT Q24H [facility] Last Admin: 01/27/19 11:17 Dose: 40 mg Fluoxetine HCl (Prozac) 40 mg PO DAILY [facility] Insulin Aspart (Novolog) 0 unit SUBCUT TIDAC [facility]; Protocol Last Admin: 01/27/19 18:00 Dose: 2 units Insulin Glargine (Lantus Solostar) 20 units SUBCUT BEDTIME [facility] Last Admin: 01/27/19 21:25 Dose: 20 units Levetiracetam (Keppra) 500 mg PO BID [facility] Last Admin: 01/27/19 21:28 Dose: 500 mg Levothyroxine Sodium (Levothyroxine) 112 mcg PO ACBREAKFAST [facility] Last Admin: 01/28/19 06:39 Dose: 112 mcg Levothyroxine Sodium (Levothyroxine) 25 mcg PO ACBREAKFAST [facility] Last Admin: 01/28/19 06:39 Dose: 25 mcg Lorazepam (Ativan) 1 mg PO TID [facility] Last Admin: 01/28/19 06:38 Dose: 1 mg Morphine Sulfate (Ms Contin) 60 mg PO DAILY [facility] Last Admin: 01/27/19 14:45 Dose: 60 mg Ondansetron HCl (Zofran Odt) 4 mg PO Q4H PRN PRN Reason: nausea, able to take PO Ondansetron HCl (Zofran) 4 mg IVPUSH Q4H PRN PRN Reason: Nausea Last Admin: 01/27/19 11:26 Dose: 4 mg Polyethylene Glycol (Miralax) 17 gm PO DAILY [facility] Last Admin: 01/27/19 11:17 Dose: 17 gm Discontinued Medications Diphenhydramine HCl (Benadryl) 50 mg PO Q8H PRN PRN Reason: Itching Last Admin: 01/27/19 14:50 Dose: 50 mg Sodium Chloride (Normal Saline) 1,000 mls @ 999 mls/hr IV .Bolus ONE Stop: 01/27/19 09:05 Last Admin: 01/27/19 08:19 Dose: 999 mls/hr Sodium Chloride (Normal Saline) 1,000 mls @ 999 mls/hr IV .Bolus ONE Stop: 01/27/19 09:06 Last Admin: 01/27/19 09:51 Dose: 999 mls/hr Sodium Chloride (Normal Saline) 1,000 mls @ 150 mls/hr IV ASDIRECTED PIPPA Stop: 01/27/19 16:39 Last Admin: 01/27/19 11:17 Dose: 150 mls/hr Sodium Chloride (Normal Saline) 1,000 mls @ 125 mls/hr IV STAT ONE Stop: 01/28/19 02:26 Last Admin: 01/27/19 18:40 Dose: 125 mls/hr Insulin Human Regular (Novolin R) 5 unit IVPUSH ONETIME ONE; Protocol Stop: 01/27/19 09:29 Last Admin: 01/27/19 09:51 Dose: 5 units Insulin Human Regular (Novolin R) 10 unit SUBCUT ONETIME ONE; Protocol Stop: 01/27/19 09:30 Last Admin: 01/27/19 09:52 Dose: 10 units <Kash Salgado - Last Filed: 01/28/19 10:54> Discharge Summary - Hospital Course HPI Initial Comments: I have seen and examined the patient independently of Dr. Arnav MD. I have reviewed and agree with the plan of care as outlined by Dr. José and agree with the plan as outlined by this resident. I have discussed the case with the resident. Please see orders. - Patient Data Vitals - Most Recent: Last Vital Signs Temp 36.7 C 01/28/19 07:40 Pulse 81 01/28/19 07:40 Resp 12 01/28/19 07:40 BP 106/72 01/28/19 07:40 Pulse Ox 96 01/28/19 07:40 I&O - Last 24 hours: Intake & Output 01/27/19 01/28/19 01/28/19 22:59 06:59 14:59 Intake Total 713 600 Output Total 700 1700 Balance 13 -1100 Lab Results - Last 24 hrs: Laboratory Results - last 24 hr 01/27/19 01/27/19 01/27/19 Range/Units 10:51 12:26 16:48 WBC (4.0-11.0) K/uL RBC (4.30-5.90) M/uL Hgb (12.0-16.0) g/dL Hct (36.0-46.0) % MCV (80.0-98.0) fL MCH (27.0-32.0) pg MCHC (31.0-37.0) g/dL RDW Std Deviation (28.0-62.0) fl RDW Coeff of Zak (11.0-15.0) % Plt Count (150-400) K/uL MPV (7.40-12.00) fL Neut % (Auto) (48.0-80.0) % Lymph % (Auto) (16.0-40.0) % Schleicher % (Auto) (0.0-15.0) % Eos % (Auto) (0.0-7.0) % Baso % (Auto) (0.0-1.5) % Neut # (Auto) (1.4-5.7) K/uL Lymph # (Auto) (0.6-2.4) K/uL Schleicher # (Auto) (0.0-0.8) K/uL Eos # (Auto) (0.0-0.7) K/uL Baso # (Auto) (0.0-0.1) K/uL Nucleated RBC % /100WBC Nucleated RBCs # K/uL Sodium (136-145) mmol/L Potassium (3.5-5.1) mmol/L Chloride (98-107) mmol/L Carbon Dioxide (21.0-32.0) mmol/L BUN (7.0-18.0) mg/dL Creatinine (0.6-1.0) mg/dL Est Cr Clr Drug Dosing mL/min Estimated GFR (MDRD) ml/min Glucose (74-106) mg/dL POC Glucose 248 H 133 H 156 H (60-110) mg/dL Calcium (8.5-10.1) mg/dL Total Bilirubin (0.2-1.0) mg/dL AST (15-37) IU/L ALT (14-63) IU/L Alkaline Phosphatase (46-116) U/L Total Protein (6.4-8.2) g/dL Albumin (3.4-5.0) g/dL Globulin (2.6-4.0) g/dL Albumin/Globulin Ratio (0.9-1.6) 01/27/19 01/27/19 01/28/19 Range/Units 17:01 20:50 04:54 WBC 5.44 (4.0-11.0) K/uL RBC 3.92 L (4.30-5.90) M/uL Hgb 9.9 L (12.0-16.0) g/dL Hct 32.5 L (36.0-46.0) % MCV 82.9 (80.0-98.0) fL MCH 25.3 L (27.0-32.0) pg MCHC 30.5 L (31.0-37.0) g/dL RDW Std Deviation 54.2 (28.0-62.0) fl RDW Coeff of Zak 18 H (11.0-15.0) % Plt Count 381 (150-400) K/uL MPV 9.90 (7.40-12.00) fL Neut % (Auto) 39.6 L (48.0-80.0) % Lymph % (Auto) 50.2 H (16.0-40.0) % Schleicher % (Auto) 6.8 (0.0-15.0) % Eos % (Auto) 2.8 (0.0-7.0) % Baso % (Auto) 0.6 (0.0-1.5) % Neut # (Auto) 2.2 (1.4-5.7) K/uL Lymph # (Auto) 2.7 H (0.6-2.4) K/uL Schleicher # (Auto) 0.4 (0.0-0.8) K/uL Eos # (Auto) 0.2 (0.0-0.7) K/uL Baso # (Auto) 0.0 (0.0-0.1) K/uL Nucleated RBC % 0.0 /100WBC Nucleated RBCs # 0 K/uL Sodium 138 (136-145) mmol/L Potassium 4.4 (3.5-5.1) mmol/L Chloride 106 (98-107) mmol/L Carbon Dioxide 16.5 L (21.0-32.0) mmol/L BUN 9 (7.0-18.0) mg/dL Creatinine 0.4 L (0.6-1.0) mg/dL Est Cr Clr Drug Dosing 149.06 mL/min Estimated GFR (MDRD) > 60.0 ml/min Glucose 168 H (74-106) mg/dL POC Glucose 324 H (60-110) mg/dL Calcium 7.5 L (8.5-10.1) mg/dL Total Bilirubin 0.3 (0.2-1.0) mg/dL AST 90 H (15-37) IU/L ALT 55 (14-63) IU/L Alkaline Phosphatase 169 H (46-116) U/L Total Protein 5.6 L (6.4-8.2) g/dL Albumin 2.7 L (3.4-5.0) g/dL Globulin 2.9 (2.6-4.0) g/dL Albumin/Globulin Ratio 0.9 (0.9-1.6) 01/28/19 01/28/19 Range/Units 04:54 06:41 WBC (4.0-11.0) K/uL RBC (4.30-5.90) M/uL Hgb (12.0-16.0) g/dL Hct (36.0-46.0) % MCV (80.0-98.0) fL MCH (27.0-32.0) pg MCHC (31.0-37.0) g/dL RDW Std Deviation (28.0-62.0) fl RDW Coeff of Zak (11.0-15.0) % Plt Count (150-400) K/uL MPV (7.40-12.00) fL Neut % (Auto) (48.0-80.0) % Lymph % (Auto) (16.0-40.0) % Schleicher % (Auto) (0.0-15.0) % Eos % (Auto) (0.0-7.0) % Baso % (Auto) (0.0-1.5) % Neut # (Auto) (1.4-5.7) K/uL Lymph # (Auto) (0.6-2.4) K/uL Schleicher # (Auto) (0.0-0.8) K/uL Eos # (Auto) (0.0-0.7) K/uL Baso # (Auto) (0.0-0.1) K/uL Nucleated RBC % /100WBC Nucleated RBCs # K/uL Sodium 137 (136-145) mmol/L Potassium 4.0 (3.5-5.1) mmol/L Chloride 107 (98-107) mmol/L Carbon Dioxide 21.0 (21.0-32.0) mmol/L BUN 10 (7.0-18.0) mg/dL Creatinine 0.7 (0.6-1.0) mg/dL Est Cr Clr Drug Dosing 85.18 mL/min Estimated GFR (MDRD) > 60.0 ml/min Glucose 262 H (74-106) mg/dL POC Glucose 196 H (60-110) mg/dL Calcium 8.0 L (8.5-10.1) mg/dL Total Bilirubin 0.2 (0.2-1.0) mg/dL AST 36 (15-37) IU/L ALT 41 (14-63) IU/L Alkaline Phosphatase 167 H (46-116) U/L Total Protein 5.9 L (6.4-8.2) g/dL Albumin 2.6 L (3.4-5.0) g/dL Globulin 3.3 (2.6-4.0) g/dL Albumin/Globulin Ratio 0.8 L (0.9-1.6) Med Orders - Current: Current Medications Diphenhydramine HCl (Benadryl) 50 mg PO Q8H PRN PRN Reason: Itching Last Admin: 01/27/19 21:50 Dose: 50 mg Enoxaparin Sodium (Lovenox) 40 mg SUBCUT Q24H [facility] Last Admin: 01/28/19 10:01 Dose: 40 mg Fluoxetine HCl (Prozac) 40 mg PO DAILY [facility] Last Admin: 01/28/19 10:00 Dose: 40 mg Insulin Aspart (Novolog) 0 unit SUBCUT TIDAC [facility]; Protocol Last Admin: 01/27/19 18:00 Dose: 2 units Insulin Glargine (Lantus Solostar) 20 units SUBCUT BEDTIME [facility] Last Admin: 01/27/19 21:25 Dose: 20 units Levetiracetam (Keppra) 500 mg PO BID [facility] Last Admin: 01/28/19 10:04 Dose: 500 mg Levothyroxine Sodium (Levothyroxine) 112 mcg PO ACBREAKFAST [facility] Last Admin: 01/28/19 06:39 Dose: 112 mcg Levothyroxine Sodium (Levothyroxine) 25 mcg PO ACBREAKFAST [facility] Last Admin: 01/28/19 06:39 Dose: 25 mcg Lorazepam (Ativan) 1 mg PO TID [facility] Last Admin: 01/28/19 06:38 Dose: 1 mg Morphine Sulfate (Ms Contin) 60 mg PO DAILY [facility] Last Admin: 01/28/19 10:02 Dose: 60 mg Ondansetron HCl (Zofran Odt) 4 mg PO Q4H PRN PRN Reason: nausea, able to take PO Ondansetron HCl (Zofran) 4 mg IVPUSH Q4H PRN PRN Reason: Nausea Last Admin: 01/27/19 11:26 Dose: 4 mg Polyethylene Glycol (Miralax) 17 gm PO DAILY [facility] Last Admin: 01/28/19 10:01 Dose: 17 gm Discontinued Medications Diphenhydramine HCl (Benadryl) 50 mg PO Q8H PRN PRN Reason: Itching Last Admin: 01/27/19 14:50 Dose: 50 mg Sodium Chloride (Normal Saline) 1,000 mls @ 999 mls/hr IV .Bolus ONE Stop: 01/27/19 09:05 Last Admin: 01/27/19 08:19 Dose: 999 mls/hr Sodium Chloride (Normal Saline) 1,000 mls @ 999 mls/hr IV .Bolus ONE Stop: 01/27/19 09:06 Last Admin: 01/27/19 09:51 Dose: 999 mls/hr Sodium Chloride (Normal Saline) 1,000 mls @ 150 mls/hr IV ASDIRECTED [facility] Stop: 01/27/19 16:39 Last Admin: 01/27/19 11:17 Dose: 150 mls/hr Sodium Chloride (Normal Saline) 1,000 mls @ 125 mls/hr IV STAT ONE Stop: 01/28/19 02:26 Last Admin: 01/27/19 18:40 Dose: 125 mls/hr Insulin Human Regular (Novolin R) 5 unit IVPUSH ONETIME ONE; Protocol Stop: 01/27/19 09:29 Last Admin: 01/27/19 09:51 Dose: 5 units Insulin Human Regular (Novolin R) 10 unit SUBCUT ONETIME ONE; Protocol Stop: 01/27/19 09:30 Last Admin: 01/27/19 09:52 Dose: 10 units
[2019-01-28] MEDS: Enoxaparin 40 MG/0.4 ML Syringe SUBCUT SCH (10:01)
[2019-01-28] MEDS: Polyethylene Glycol 3350 Powder 17 GM Packet PO SCH (10:01)
[2019-01-28] MEDS: Morphine 15 MG Tab.ER PO SCH (10:02)
[2019-01-28] MEDS: levETIRAcetam 500 MG Tab PO SCH (10:04)
[2019-01-28] MEDS: Insulin Aspart 100 Units/ML 3 ML Pen SUBCUT SCH ×2 (10:57→11:45)
== END 2019-01-28 13:00 | disposition home or self-care (01) ==
LOC: MW.ED 07:48 → MW.MS 10:33
PROVIDERS: ADMIT Internal Medicine; ATTEND Internal Medicine
DX: E10.65 Type 1 diabetes mellitus with hyperglycemia (principal); G89.29 Other chronic pain; M54.9 Dorsalgia, unspecified; K59.00 Constipation, unspecified; E86.0 Dehydration; E03.9 Hypothyroidism, unspecified; J45.909 Unspecified asthma, uncomplicated; F41.9 Anxiety disorder, unspecified; Z88.0 Allergy status to penicillin; Z88.8 Allergy status to other drugs, medicaments and biological substances; Z88.5 Allergy status to narcotic agent; Z87.891 Personal history of nicotine dependence; Z79.899 Other long term (current) drug therapy
CPT/HCPCS: 36415; 36600; 71045; 80053; 81003; 81025; 82803; 82962; 85025; 93005; 96361; 96372; 96374; 99285; A9270; G0378; J1650; J1815; J2405; J7040; 96360; 99284

== ENCOUNTER 2019-05-28 14:06 | Inpatient (IN) | payer MEDICAID ==
[2019-05-28] MEDS ORDERED: Ondansetron 4 MG/2 ML SDV ONE (14:22)
[2019-05-28] MEDS ORDERED: Sodium Chloride 0.9% 1,000 ML IV ONE ×2 (14:27→15:59)
[2019-05-28] MEDS ORDERED: Ondansetron 4 MG/2 ML SDV IVPUSH ONE ×2 (14:31→23:39)
[2019-05-28] MEDS ORDERED: Ketorolac 30 MG/ML SDV IVPUSH ONE (14:39)
--- NOTE | 2019-05-28 14:42 | EDM.PDOC ---
ED HPI GENERAL MEDICAL PROBLEM - General Chief Complaint: Diabetic Complaint Stated Complaint: FEVER, VOMITING Time Seen by Provider: 05/28/19 14:13 Source of Information: Reports: Patient History Limitations: Reports: No Limitations - History of Present Illness INITIAL COMMENTS - FREE TEXT/NARRATIVE: HISTORY AND PHYSICAL: History of present illness: Patient is a 28-year-old female, with a history of type 1 diabetes, who presents to the ED today with concern of vomiting and back pain. Patient states her sugars at home have been above 500 and she last gave herself insulin this morning but is unsure of how much she gave. Patient states that she began vomiting this morning and having back pain which is typical of her symptoms when she is in DKA according to patient. Patient denies any other symptoms or concerns. Patient denies fever, chills, chest pain, shortness of breath, or cough. Denies headache, neck stiff ness, change in vision, syncope, or near syncope. Denies abdominal pain, diarrhea, constipation, or dysuria. Has not noted any blood in urine or stool. Patient has been eating and drinking appropriately. Review of systems: As per history of present illness and below otherwise all systems reviewed and negative. Past medical history: As per history of present illness and as reviewed below otherwise noncontributory. Surgical history: As per history of present illness and as reviewed below otherwise noncontributory. Social history: See social history for further information Family history: As per history of present illness and as reviewed below otherwise noncontributory. Physical exam: General: Patient is alert, oriented, and in no acute distress. Patient sitting comfortably on exam table holding emesis basin. HEENT: Atraumatic, normocephalic, pupils equal and reactive bilaterally, negative for conjunctival pallor or scleral icterus, mucous membranes dry and tacky, TMs normal bilaterally, throat clear, neck supple, nontender, trachea midline. No drooling or trismus noted. No meningeal signs. No hot potato voice noted. Lungs: Clear to auscultation, breath sounds equal bilaterally, chest nontender. Heart: S1S2, regular rate and rhythm without overt murmur Abdomen: Soft, nondistended, nontender. Negative for masses or hepatosplenomegaly. Negative for costovertebral tenderness. Pelvis: Stable nontender. Genitourinary: Deferred. Rectal: Deferred. Skin: Intact, warm, dry. No lesions or rashes noted. Extremities: Atraumatic, negative for cords or calf pain. Neurovascular unremarkable. Neuro: Awake, alert, oriented. Cranial nerves II through XII unremarkable. Cerebellum unremarkable. Motor and sensory unremarkable throughout. Exam nonfocal. Notes: Dr. Warren consulted on patient and will admit to inpatient ICU Voices understanding and is agreeable to plan of care. Denies any further questions or concerns at this time. Diagnostics: CBC, CMP, UA, EKG, chest x-ray, blood ketone, ABG, urine hCG Therapeutics: NS 2L, Zofran, insulin gtt Impression: Diabetic Ketoacidosis Medication non-compliance Plan: 1. Admit to ICU inpatient to Dr. Warren. Definitive disposition and diagnosis as appropriate pending reevaluation and review of above. abd Pain Score (Numeric/FACES): 10 - Related Data Allergies Allergy/AdvReac Type Severity Reaction Status Date / Time acetaminophen [From Tylenol] Allergy Liver Verified 05/28/19 14:15 Problems amoxicillin Allergy Hives Verified 05/28/19 14:15 amoxicillin trihydrate Allergy Hives Verified 05/28/19 14:15 [From Amoxil] ibuprofen Allergy Liver Verified 05/28/19 14:15 Problems ketorolac tromethamine Allergy Hives Verified 05/28/19 14:15 [From Toradol] metoclopramide HCl Allergy Airway Verified 05/28/19 14:15 [From Reglan] Tightness tramadol Allergy Hives Verified 05/28/19 14:15 haldol Allergy Swelling Uncoded 05/28/19 14:15 Home Meds: Home Meds FLUoxetine HCl [Fluoxetine HCl] 40 mg PO DAILY 01/27/19 [History] Insulin Degludec [Tresiba] 26 unit SQ DAILY 01/27/19 [History] LORazepam 1 mg PO TID 01/27/19 [History] Levothyroxine [Levothroid] 137 mcg PO ACBREAKFAST 01/27/19 [History] Morphine 15 mg PO Q4H PRN 01/27/19 [History] Rosuvastatin [Crestor] 5 mg PO BEDTIME 01/27/19 [History] levETIRAcetam [Keppra] 500 mg PO BID 01/27/19 [History] tiZANidine [Zanaflex] 4 mg PO BID 01/27/19 [History] Insuln Asp Prot/Insulin Aspart [NovoLOG Mix 70-30] 0 unit SQ ASDIRECTED [History] Morphine Sulfate/Naltrexone [Embeda ER 60-2.4 mg Capsule] 1 each PO Q12HR [History] Past Medical History - Past Health History Medical/Surgical History: Denies Medical/Surgical History HEENT History: Reports: Allergic Rhinitis Other HEENT History: dental abcess Cardiovascular History: Reports: None Respiratory History: Reports: Asthma Gastrointestinal History: Reports: GI Bleed, Hepatitis, PUD, Other (See Below) Other Gastrointestinal History: hx of C-diff, hx of Hepatitis B Genitourinary History: Reports: UTI, Recurrent Other Genitourinary History: current UTI PRODUCTION ANALYST History: Reports: Other (See Below) Other PRODUCTION ANALYST History: had miscarriage twice Musculoskeletal History: Reports: Back Pain, Chronic, Fracture Neurological History: Reports: Migraines, Seizure, Other (See Below) 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 Psychiatric History: Reports: Anxiety, Depression Endocrine/Metabolic History: Reports: Diabetes, Type I, Hypothyroidism Other Endocrine/Metabolic History: recurrent admission for DKA Hematologic History: Reports: Anemia, Blood Transfusion(s) Immunologic History: Reports: None Oncologic (Cancer) History: Reports: None Dermatologic History: Reports: Other (See Below) Other Dermatologic History: wound dishiscence causing port removal R upper chest --dehiscence from inadequate diet - Infectious Disease History Infectious Disease History: Reports: Chicken Pox, Hepatitis B - Past Surgical History Head Surgeries/Procedures: Reports: None HEENT Surgical History: Reports: Tonsillectomy Cardiovascular Surgical History: Reports: None Respiratory Surgical History: Reports: None GI Surgical History: Reports: Appendectomy, Cholecystectomy, ERCP Female Surgical History: Reports: None Endocrine Surgical History: Reports: None Neurological Surgical History: Reports: None Musculoskeletal Surgical History: Reports: None Oncologic Surgical History: Reports: None Dermatological Surgical History: Reports: None - History Comment History Comment: She has had over [address] scans in the last 4 years. Social & Family History - Family History Family Medical History: Noncontributory HEENT: Reports: Impaired Vision Cardiac: Reports: Heart Failure Respiratory: Reports: Asthma GI: Reports: None : Reports: Renal Disease/Insufficiency OBGYN: Reports: Musculoskeletal: Reports: Back pain, Chronic Neurological: Reports: Seizure Psychiatric: Reports: None Endocrine/Metabolic: Reports: Diabetes, Type I Hematologic: Reports: None Immunologic: Reports: None Dermatologic: Reports: None Oncologic: Reports: Breast, Cervix - Tobacco Use Smoking Status *Q: Former Smoker Used Tobacco, but Quit: Yes Month/Year Tobacco Last Used: unknown - Caffeine Use Caffeine Use: Reports: Soda Caffeine Use Comment: approximately 1 drink/day - Recreational Drug Use Recreational Drug Use: No - Living Situation & Occupation Living situation: Reports: with Significant Other, with Family, Other Occupation: Unemployed ED ROS GENERAL - Review of Systems Review Of Systems: Comprehensive ROS is negative, except as noted in HPI. ED EXAM GENERAL NO PERIP PULSE - Physical Exam Exam: See Below (see dictation) Course - Vital Signs Last Recorded V/S: Last Vital Signs Temp 97.4 F 05/28/19 14:12 Pulse 138 H 05/28/19 16:37 Resp 22 H 05/28/19 16:37 BP 138/79 05/28/19 16:37 Pulse Ox 98 05/28/19 16:37 - Orders/Labs/Meds Orders: Active Orders 24 hr Category Date Time Status Admission Status [Patient Status] [ADT] Stat ADT 05/28/19 15:59 Active Blood Glucose Check, Bedside [RC] ONETIME Care 05/28/19 14:27 Active EKG Documentation Completion [RC] STAT Care 05/28/19 14:39 Active Insulin Regular, Human [NovoLIN R] 100 unit Med 05/28/19 15:15 Active Sodium Chloride 0.9% [Normal Saline] 99 ml IV TITRATE Sodium Chloride 0.9% [Normal Saline] 1,000 ml Med 05/28/19 15:59 Active IV STAT Medication Orders Insulin Human Regular 100 unit (/ Sodium Chloride) 100 mls @ 5 mls/hr IV TITRATE PIPPA; Protocol Last Admin: 05/28/19 15:35 Dose: 5 unit/hr, 5 mls/hr Sodium Chloride (Normal Saline) 1,000 mls @ 999 mls/hr IV STAT ONE Stop: 05/28/19 16:59 Last Admin: 05/28/19 16:18 Dose: 999 mls/hr Labs: Laboratory Tests 05/28/19 05/28/19 05/28/19 Range/Units 14:17 14:17 14:25 WBC 12.40 H (4.0-11.0) K/uL RBC 4.90 (4.30-5.90) M/uL Hgb 13.1 (12.0-16.0) g/dL Hct 43.1 (36.0-46.0) % MCV 88.0 (80.0-98.0) fL MCH 26.7 L (27.0-32.0) pg MCHC 30.4 L (31.0-37.0) g/dL RDW Std Deviation 57.1 (28.0-62.0) fl RDW Coeff of Zak 18 H (11.0-15.0) % Plt Count 608 H (150-400) K/uL MPV 10.20 (7.40-12.00) fL Neut % (Auto) 74.3 (48.0-80.0) % Lymph % (Auto) 23.1 (16.0-40.0) % Castro % (Auto) 1.9 (0.0-15.0) % Eos % (Auto) 0.2 (0.0-7.0) % Baso % (Auto) 0.5 (0.0-1.5) % Neut # (Auto) 9.2 H (1.4-5.7) K/uL Lymph # (Auto) 2.9 H (0.6-2.4) K/uL Castro # (Auto) 0.2 (0.0-0.8) K/uL Eos # (Auto) 0.0 (0.0-0.7) K/uL Baso # (Auto) 0.1 (0.0-0.1) K/uL Nucleated RBC % 0.0 /100WBC Nucleated RBCs # 0 K/uL ABG pH (7.35-7.45) ABG pCO2 (35-45) mmHG ABG pO2 (75-100) mmHG ABG HCO3 (22-26) mEq/L ABG Total CO2 ABG Base Excess (-2.0-2.0) Sodium (136-145) mmol/L Potassium (3.5-5.1) mmol/L Chloride (98-107) mmol/L Carbon Dioxide (21.0-32.0) mmol/L BUN (7.0-18.0) mg/dL Creatinine (0.6-1.0) mg/dL Est Cr Clr Drug Dosing mL/min Estimated GFR (MDRD) ml/min Glucose (74-106) mg/dL POC Glucose (60-110) mg/dL Calcium (8.5-10.1) mg/dL Phosphorus (2.6-4.7) mg/dL Magnesium (1.8-2.4) mg/dL Total Bilirubin (0.2-1.0) mg/dL AST (15-37) IU/L ALT (14-63) IU/L Alkaline Phosphatase (46-116) U/L Total Protein (6.4-8.2) g/dL Albumin (3.4-5.0) g/dL Globulin (2.6-4.0) g/dL Albumin/Globulin Ratio (0.9-1.6) Urine Color YELLOW Urine Appearance CLEAR Urine pH 5.5 (5.0-8.0) Ur Specific [place] 1.020 (1.001-1.035) Urine Protein TRACE H (NEGATIVE) mg/dL Urine Glucose (UA) 500 H (NEGATIVE) mg/dL Urine Ketones >=80 (NEGATIVE) mg/dL Urine Occult Blood TRACE-INTACT H (NEGATIVE) Urine Nitrite NEGATIVE (NEGATIVE) Urine Bilirubin SMALL H (NEGATIVE) Urine Ictotest NEGATIVE Urine Urobilinogen 0.2 (<2.0) EU/dL Ur Leukocyte Esterase NEGATIVE (NEGATIVE) Urine RBC 0-3 (0-2/HPF) Urine WBC 0-3 (0-5/HPF) Ur Epithelial Cells MANY (NONE-FEW) Urine Bacteria FEW (NEGATIVE) Urine Mucus MODERATE (NONE-MOD) Urine HCG, Qual NEGATIVE (NEGATIVE) Ketones (NEG) 05/28/19 05/28/19 05/28/19 Range/Units 14:25 14:25 14:25 WBC (4.0-11.0) K/uL RBC (4.30-5.90) M/uL Hgb (12.0-16.0) g/dL Hct (36.0-46.0) % MCV (80.0-98.0) fL MCH (27.0-32.0) pg MCHC (31.0-37.0) g/dL RDW Std Deviation (28.0-62.0) fl RDW Coeff of Zak (11.0-15.0) % Plt Count (150-400) K/uL MPV (7.40-12.00) fL Neut % (Auto) (48.0-80.0) % Lymph % (Auto) (16.0-40.0) % Castro % (Auto) (0.0-15.0) % Eos % (Auto) (0.0-7.0) % Baso % (Auto) (0.0-1.5) % Neut # (Auto) (1.4-5.7) K/uL Lymph # (Auto) (0.6-2.4) K/uL [place] # (Auto) (0.0-0.8) K/uL Eos # (Auto) (0.0-0.7) K/uL Baso # (Auto) (0.0-0.1) K/uL Nucleated RBC % /100WBC Nucleated RBCs # K/uL ABG pH (7.35-7.45) ABG pCO2 (35-45) mmHG ABG pO2 (75-100) mmHG ABG HCO3 (22-26) mEq/L ABG Total CO2 ABG Base Excess (-2.0-2.0) Sodium 135 L (136-145) mmol/L Potassium 3.7 (3.5-5.1) mmol/L Chloride 92 L (98-107) mmol/L Carbon Dioxide 5.4 L (21.0-32.0) mmol/L BUN 16 (7.0-18.0) mg/dL Creatinine 1.4 H (0.6-1.0) mg/dL Est Cr Clr Drug Dosing 42.59 mL/min Estimated GFR (MDRD) 44.5 ml/min Glucose 626 H* (74-106) mg/dL POC Glucose (60-110) mg/dL Calcium 10.9 H (8.5-10.1) mg/dL Phosphorus 5.2 H (2.6-4.7) mg/dL Magnesium 1.7 L (1.8-2.4) mg/dL Total Bilirubin 0.7 (0.2-1.0) mg/dL AST 23 (15-37) IU/L ALT 26 (14-63) IU/L Alkaline Phosphatase 232 H (46-116) U/L Total Protein 8.8 H (6.4-8.2) g/dL Albumin 3.9 (3.4-5.0) g/dL Globulin 4.9 H (2.6-4.0) g/dL Albumin/Globulin Ratio 0.8 L (0.9-1.6) Urine Color Urine Appearance Urine pH (5.0-8.0) Ur Specific [place] (1.001-1.035) Urine Protein (NEGATIVE) mg/dL Urine Glucose (UA) (NEGATIVE) mg/dL Urine Ketones (NEGATIVE) mg/dL Urine Occult Blood (NEGATIVE) Urine Nitrite (NEGATIVE) Urine Bilirubin (NEGATIVE) Urine Ictotest Urine Urobilinogen (<2.0) EU/dL Ur Leukocyte Esterase (NEGATIVE) Urine RBC (0-2/HPF) Urine WBC (0-5/HPF) Ur Epithelial Cells (NONE-FEW) Urine Bacteria (NEGATIVE) Urine Mucus (NONE-MOD) Urine HCG, Qual (NEGATIVE) Ketones MODERATE H (NEG) 05/28/19 05/28/19 Range/Units 15:03 15:10 WBC (4.0-11.0) K/uL RBC (4.30-5.90) M/uL Hgb (12.0-16.0) g/dL Hct (36.0-46.0) % MCV (80.0-98.0) fL MCH (27.0-32.0) pg MCHC (31.0-37.0) g/dL RDW Std Deviation (28.0-62.0) fl RDW Coeff of Zak (11.0-15.0) % Plt Count (150-400) K/uL MPV (7.40-12.00) fL Neut % (Auto) (48.0-80.0) % Lymph % (Auto) (16.0-40.0) % Castro % (Auto) (0.0-15.0) % Eos % (Auto) (0.0-7.0) % Baso % (Auto) (0.0-1.5) % Neut # (Auto) (1.4-5.7) K/uL Lymph # (Auto) (0.6-2.4) K/uL [place] # (Auto) (0.0-0.8) K/uL Eos # (Auto) (0.0-0.7) K/uL Baso # (Auto) (0.0-0.1) K/uL Nucleated RBC % /100WBC Nucleated RBCs # K/uL ABG pH 7.130 L* (7.35-7.45) ABG pCO2 11 L (35-45) mmHG ABG pO2 110 H (75-100) mmHG ABG HCO3 4 L (22-26) mEq/L ABG Total CO2 3.6 ABG Base Excess -23.1 L (-2.0-2.0) Sodium (136-145) mmol/L Potassium (3.5-5.1) mmol/L Chloride (98-107) mmol/L Carbon Dioxide (21.0-32.0) mmol/L BUN (7.0-18.0) mg/dL Creatinine (0.6-1.0) mg/dL Est Cr Clr Drug Dosing mL/min Estimated GFR (MDRD) ml/min Glucose (74-106) mg/dL POC Glucose > 500 H (60-110) mg/dL Calcium (8.5-10.1) mg/dL Phosphorus (2.6-4.7) mg/dL Magnesium (1.8-2.4) mg/dL Total Bilirubin (0.2-1.0) mg/dL AST (15-37) IU/L ALT (14-63) IU/L Alkaline Phosphatase (46-116) U/L Total Protein (6.4-8.2) g/dL Albumin (3.4-5.0) g/dL Globulin (2.6-4.0) g/dL Albumin/Globulin Ratio (0.9-1.6) Urine Color Urine Appearance Urine pH (5.0-8.0) Ur Specific [place] (1.001-1.035) Urine Protein (NEGATIVE) mg/dL Urine Glucose (UA) (NEGATIVE) mg/dL Urine Ketones (NEGATIVE) mg/dL Urine Occult Blood (NEGATIVE) Urine Nitrite (NEGATIVE) Urine Bilirubin (NEGATIVE) Urine Ictotest Urine Urobilinogen (<2.0) EU/dL Ur Leukocyte Esterase (NEGATIVE) Urine RBC (0-2/HPF) Urine WBC (0-5/HPF) Ur Epithelial Cells (NONE-FEW) Urine Bacteria (NEGATIVE) Urine Mucus (NONE-MOD) Urine HCG, Qual (NEGATIVE) Ketones (NEG) Meds: Medications Generic Name Dose Route Start Last Admin Trade Name Freq PRN Reason Stop Dose Admin Insulin Human Regular 100 unit 100 mls @ 5 mls/hr 05/28/19 15:15 05/28/19 15: 35 / Sodium Chloride IV 5 unit/hr TITRATE PIPPA 5 mls/hr Administration Protocol 5 UNIT/HR Sodium Chloride 1,000 mls @ 999 mls/hr 05/28/19 15:59 05/28/19 16:18 Normal Saline IV 05/28/19 16:59 999 mls/hr STAT ONE Administration Discontinued Medications Generic Name Dose Route Start Last Admin Trade Name Freq PRN Reason Stop Dose Admin Sodium Chloride 1,000 mls @ 999 mls/hr 05/28/19 14:27 05/28/19 15:05 Normal Saline IV 05/28/19 15:27 999 mls/hr BOLUS ONE Administration Ketorolac Tromethamine 30 mg 05/28/19 14:39 05/28/19 15:05 Toradol IVPUSH 05/28/19 14:40 Not Given ONETIME ONE Morphine Sulfate 2 mg 05/28/19 15:43 05/28/19 15:55 Morphine IVPUSH 05/28/19 15:44 Not Given ONETIME ONE Ondansetron HCl Confirm 05/28/19 14:22 05/28/19 14:31 Zofran Administered 05/28/19 14:23 Not Given Dose 4 mg .ROUTE .STK-MED ONE Ondansetron HCl 4 mg 05/28/19 14:31 05/28/19 15:05 Zofran IVPUSH 05/28/19 14:32 4 mg ONETIME ONE Administration Departure - Departure Time of Disposition: 16:02 Disposition: Admitted As Inpatient 65 Clinical Impression: Nonadherence to medication DKA (diabetic ketoacidoses) Qualifiers: Diabetes mellitus type: type 1 Diabetes mellitus complication detail: without coma Qualified Code(s): E10.10 - Type 1 diabetes mellitus with ketoacidosis without coma - Discharge Information Referrals: Maynor Black MD [Primary Care Provider] - Forms: ED Department Discharge - My Orders Last 24 Hours: My Active Orders 05/28/19 14:27 Blood Glucose Check, Bedside [RC] ONETIME 05/28/19 14:39 EKG Documentation Completion [RC] STAT 05/28/19 15:15 Insulin Regular, Human [NovoLIN R] 100 unit Sodium Chloride 0.9% [Normal Saline] 99 ml IV TITRATE 05/28/19 15:59 Admission Status [Patient Status] [ADT] Stat Sodium Chloride 0.9% [Normal Saline] 1,000 ml IV STAT - Assessment/Plan Last 24 Hours: My Active Orders 05/28/19 14:27 Blood Glucose Check, Bedside [RC] ONETIME 05/28/19 14:39 EKG Documentation Completion [RC] STAT 05/28/19 15:15 Insulin Regular, Human [NovoLIN R] 100 unit Sodium Chloride 0.9% [Normal Saline] 99 ml IV TITRATE 05/28/19 15:59 Admission Status [Patient Status] [ADT] Stat Sodium Chloride 0.9% [Normal Saline] 1,000 ml IV STAT
[2019-05-28 15:04] LABS: CARBON DIOXIDE,CO2 5.4 mmol/L (21.0-32.0); POTASSIUM,K 3.7 mmol/L (3.5-5.1)
[2019-05-28] MEDS ORDERED: Morphine 2 MG/ML Syringe IVPUSH ONE (15:43)
--- NOTE | 2019-05-28 16:48 | CR ---
INDICATION: pain, vomiting TECHNIQUE: Chest 1 view. COMPARISON: None. FINDINGS: Cardiovascular and mediastinum: Heart size and vasculature are normal in caliber and appearance. Mediastinum is within normal limits. Lungs and pleural space: Lungs are clear. No sign of infiltrate or mass. No sign of pleural effusion. No pneumothorax. Bones and soft tissues: No significant findings. IMPRESSION: Unremarkable chest. Dictated by: Sal Hickey MD @ 05/28/2019 16:46:33 (Electronically Signed)
[2019-05-28] MEDS ORDERED: Morphine 15 MG Tab PO PRN (16:59)
[2019-05-28] MEDS ORDERED: Potassium Chloride Riders 20 MEQ in Premix Bag 1 BAG IV STA (17:04)
[2019-05-28] MEDS ORDERED: NS + KCl 20mEq/L 1,000 ML IV SCH ×2 (17:15→19:15)
--- NOTE | 2019-05-28 17:17 | PCM.HP.2 ---
<Shayan Pollard M - Last Filed: 05/28/19 18:16> H&P History of Present Illness - General Date of Service: 05/28/19 Admit Problem/Dx: Admission Diagnosis/Problem Admission Diagnosis/Problem Diabetic ketoacidosis Source of Information: Patient - History of Present Illness Initial Comments - Free Text/Narative: 28-year-old female presented to ER with complaints of vomiting, abdominal pain and back pain for the past 1 day. She has a history of multiple hospital admissions for DKA due to type 1 diabetes mellitus, diabetic gastroparesis and osteoporosis resulting in chronic back pain. Patient reports that she has been taking her insulin as prescribed without missing doses. She has also had subjective fevers for the past 3 days. She denies having any cough, shortness of breath or dysuria. Her blood sugars have been ~500 at home. In the ER, ABG showed pH 7.1, HCO3 4, glucose of 626. Patient received 2 L IV NS boluses in the ER and started on insulin drip. CXR negative. UA positive for ketones. Patient admitted for further evaluation. abd Pain Score (Numeric/FACES): 10 - Related Data Allergies/Adverse Reactions: Allergies Allergy/AdvReac Type Severity Reaction Status Date / Time acetaminophen [From Tylenol] Allergy Liver Verified 05/28/19 19:57 Problems amoxicillin Allergy Hives Verified 05/28/19 19:57 amoxicillin trihydrate Allergy Hives Verified 05/28/19 19:57 [From Amoxil] ibuprofen Allergy Liver Verified 05/28/19 19:57 Problems ketorolac tromethamine Allergy Hives Verified 05/28/19 19:57 [From Toradol] metoclopramide HCl Allergy Airway Verified 05/28/19 19:57 [From Reglan] Tightness tramadol Allergy Hives Verified 05/28/19 19:57 haldol Allergy Swelling Uncoded 05/28/19 19:57 Home Medications: Home Meds FLUoxetine HCl [Fluoxetine HCl] 40 mg PO DAILY 01/27/19 [History] Insulin Degludec [Tresiba] 26 unit SQ DAILY 01/27/19 [History] LORazepam 1 mg PO TID 01/27/19 [History] Levothyroxine [Levothroid] 137 mcg PO ACBREAKFAST 01/27/19 [History] Morphine 15 mg PO Q4H PRN 01/27/19 [History] Rosuvastatin [Crestor] 5 mg PO BEDTIME 01/27/19 [History] levETIRAcetam [Keppra] 500 mg PO BID 01/27/19 [History] tiZANidine [Zanaflex] 4 mg PO BID 01/27/19 [History] Insuln Asp Prot/Insulin Aspart [NovoLOG Mix 70-30] 0 unit SQ ASDIRECTED [History] Morphine Sulfate/Naltrexone [Embeda ER 60-2.4 mg Capsule] 1 each PO Q12HR [History] Past Medical History - Past Health History Medical/Surgical History: Denies Medical/Surgical History HEENT History: Reports: Allergic Rhinitis Other HEENT History: dental abcess Cardiovascular History: Reports: None Respiratory History: Reports: Asthma Gastrointestinal History: Reports: GI Bleed, Hepatitis, PUD, Other (See Below) Other Gastrointestinal History: hx of C-diff, hx of Hepatitis B Genitourinary History: Reports: UTI, Recurrent Other Genitourinary History: current UTI POST ADOPTION COORDINATOR History: Reports: Other (See Below) Other OB/BYN History: had miscarriage twice Musculoskeletal History: Reports: Back Pain, Chronic, Fracture Neurological History: Reports: Migraines, Seizure, Other (See Below) 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 Psychiatric History: Reports: Anxiety, Depression Endocrine/Metabolic History: Reports: Diabetes, Type I, Hypothyroidism Other Endocrine/Metabolic History: recurrent admission for DKA Hematologic History: Reports: Anemia, Blood Transfusion(s) Immunologic History: Reports: None Oncologic (Cancer) History: Reports: None Dermatologic History: Reports: Other (See Below) Other Dermatologic History: wound dishiscence causing port removal R upper chest --dehiscence from inadequate diet - Infectious Disease History Infectious Disease History: Reports: Chicken Pox, Hepatitis B - Past Surgical History Head Surgeries/Procedures: Reports: None HEENT Surgical History: Reports: Tonsillectomy Cardiovascular Surgical History: Reports: None Respiratory Surgical History: Reports: None GI Surgical History: Reports: Appendectomy, Cholecystectomy, ERCP Female Surgical History: Reports: None Endocrine Surgical History: Reports: None Neurological Surgical History: Reports: None Musculoskeletal Surgical History: Reports: None Oncologic Surgical History: Reports: None Dermatological Surgical History: Reports: None - History Comment History Comment: She has had over [address] scans in the last 4 years. Social & Family History - Family History Family Medical History: Noncontributory HEENT: Reports: Impaired Vision Cardiac: Reports: Heart Failure Respiratory: Reports: Asthma GI: Reports: None : Reports: Renal Disease/Insufficiency OBGYN: Reports: Musculoskeletal: Reports: Back pain, Chronic Neurological: Reports: Seizure Psychiatric: Reports: None Endocrine/Metabolic: Reports: Diabetes, Type I Hematologic: Reports: None Immunologic: Reports: None Dermatologic: Reports: None Oncologic: Reports: Breast, Cervix - Tobacco Use Smoking Status *Q: Former Smoker Used Tobacco, but Quit: Yes Month/Year Tobacco Last Used: unknown - Caffeine Use Caffeine Use: Reports: Soda Caffeine Use Comment: approximately 1 drink/day - Recreational Drug Use Recreational Drug Use: No - Living Situation & Occupation Living situation: Reports: with Significant Other, with Family, Other Occupation: Unemployed H&P Review of Systems - Review of Systems: Review Of Systems: Comprehensive ROS is negative, except as noted in HPI. Exam - Exam Exam: See Below - Vital Signs Vital Signs: Last Vital Signs Temp 97.4 F 05/28/19 14:12 Pulse 138 H 05/28/19 16:37 Resp 22 H 05/28/19 16:37 BP 138/79 05/28/19 16:37 Pulse Ox 98 05/28/19 16:37 Weight: 49.895 kg - Exam General: Alert, Oriented, Cooperative, Moderate Distress HEENT: Conjunctiva Clear, EOMI, Hearing Intact, Mucosa Moist & [place], Posterior Pharynx Clear Neck: Supple, Trachea Midline Lungs: Clear to Auscultation, Normal Respiratory Effort Cardiovascular: Regular Rhythm, Tachycardia GI/Abdominal Exam: Normal Bowel Sounds, Soft, Non-Tender, No Distention Extremities: Normal Inspection, No Pedal Edema Skin: Dry Neurological: Cranial Nerves Intact, Normal Tone Neuro Extensive - Mental Status: Alert, Oriented x3, Normal Mood/Affect Psychiatric: Alert, Normal Affect, Normal Mood - Patient Data Lab Results Last 24 hrs: Laboratory Results - last 24 hr 05/28/19 05/28/19 05/28/19 Range/Units 14:17 14:17 14:25 WBC 12.40 H (4.0-11.0) K/uL RBC 4.90 (4.30-5.90) M/uL Hgb 13.1 (12.0-16.0) g/dL Hct 43.1 (36.0-46.0) % MCV 88.0 (80.0-98.0) fL MCH 26.7 L (27.0-32.0) pg MCHC 30.4 L (31.0-37.0) g/dL RDW Std Deviation 57.1 (28.0-62.0) fl RDW Coeff of Zak 18 H (11.0-15.0) % Plt Count 608 H (150-400) K/uL MPV 10.20 (7.40-12.00) fL Neut % (Auto) 74.3 (48.0-80.0) % Lymph % (Auto) 23.1 (16.0-40.0) % [place] % (Auto) 1.9 (0.0-15.0) % Eos % (Auto) 0.2 (0.0-7.0) % Baso % (Auto) 0.5 (0.0-1.5) % Neut # (Auto) 9.2 H (1.4-5.7) K/uL Lymph # (Auto) 2.9 H (0.6-2.4) K/uL [place] # (Auto) 0.2 (0.0-0.8) K/uL Eos # (Auto) 0.0 (0.0-0.7) K/uL Baso # (Auto) 0.1 (0.0-0.1) K/uL Nucleated RBC % 0.0 /100WBC Nucleated RBCs # 0 K/uL ABG pH (7.35-7.45) ABG pCO2 (35-45) mmHG ABG pO2 (75-100) mmHG ABG HCO3 (22-26) mEq/L ABG Total CO2 ABG Base Excess (-2.0-2.0) Sodium (136-145) mmol/L Potassium (3.5-5.1) mmol/L Chloride (98-107) mmol/L Carbon Dioxide (21.0-32.0) mmol/L BUN (7.0-18.0) mg/dL Creatinine (0.6-1.0) mg/dL Est Cr Clr Drug Dosing mL/min Estimated GFR (MDRD) ml/min Glucose (74-106) mg/dL POC Glucose (60-110) mg/dL Calcium (8.5-10.1) mg/dL Phosphorus (2.6-4.7) mg/dL Magnesium (1.8-2.4) mg/dL Total Bilirubin (0.2-1.0) mg/dL AST (15-37) IU/L ALT (14-63) IU/L Alkaline Phosphatase (46-116) U/L Total Protein (6.4-8.2) g/dL Albumin (3.4-5.0) g/dL Globulin (2.6-4.0) g/dL Albumin/Globulin Ratio (0.9-1.6) Urine Color YELLOW Urine Appearance CLEAR Urine pH 5.5 (5.0-8.0) Ur Specific [place] 1.020 (1.001-1.035) Urine Protein TRACE H (NEGATIVE) mg/dL Urine Glucose (UA) 500 H (NEGATIVE) mg/dL Urine Ketones >=80 (NEGATIVE) mg/dL Urine Occult Blood TRACE-INTACT H (NEGATIVE) Urine Nitrite NEGATIVE (NEGATIVE) Urine Bilirubin SMALL H (NEGATIVE) Urine Ictotest NEGATIVE Urine Urobilinogen 0.2 (<2.0) EU/dL Ur Leukocyte Esterase NEGATIVE (NEGATIVE) Urine RBC 0-3 (0-2/HPF) Urine WBC 0-3 (0-5/HPF) Ur Epithelial Cells MANY (NONE-FEW) Urine Bacteria FEW (NEGATIVE) Urine Mucus MODERATE (NONE-MOD) Urine HCG, Qual NEGATIVE (NEGATIVE) Ketones (NEG) 05/28/19 05/28/19 05/28/19 Range/Units 14:25 14:25 14:25 WBC (4.0-11.0) K/uL RBC (4.30-5.90) M/uL Hgb (12.0-16.0) g/dL Hct (36.0-46.0) % MCV (80.0-98.0) fL MCH (27.0-32.0) pg MCHC (31.0-37.0) g/dL RDW Std Deviation (28.0-62.0) fl RDW Coeff of Zak (11.0-15.0) % Plt Count (150-400) K/uL MPV (7.40-12.00) fL Neut % (Auto) (48.0-80.0) % Lymph % (Auto) (16.0-40.0) % [place] % (Auto) (0.0-15.0) % Eos % (Auto) (0.0-7.0) % Baso % (Auto) (0.0-1.5) % Neut # (Auto) (1.4-5.7) K/uL Lymph # (Auto) (0.6-2.4) K/uL [place] # (Auto) (0.0-0.8) K/uL Eos # (Auto) (0.0-0.7) K/uL Baso # (Auto) (0.0-0.1) K/uL Nucleated RBC % /100WBC Nucleated RBCs # K/uL ABG pH (7.35-7.45) ABG pCO2 (35-45) mmHG ABG pO2 (75-100) mmHG ABG HCO3 (22-26) mEq/L ABG Total CO2 ABG Base Excess (-2.0-2.0) Sodium 135 L (136-145) mmol/L Potassium 3.7 (3.5-5.1) mmol/L Chloride 92 L (98-107) mmol/L Carbon Dioxide 5.4 L (21.0-32.0) mmol/L BUN 16 (7.0-18.0) mg/dL Creatinine 1.4 H (0.6-1.0) mg/dL Est Cr Clr Drug Dosing 42.59 mL/min Estimated GFR (MDRD) 44.5 ml/min Glucose 626 H* (74-106) mg/dL POC Glucose (60-110) mg/dL Calcium 10.9 H (8.5-10.1) mg/dL Phosphorus 5.2 H (2.6-4.7) mg/dL Magnesium 1.7 L (1.8-2.4) mg/dL Total Bilirubin 0.7 (0.2-1.0) mg/dL AST 23 (15-37) IU/L ALT 26 (14-63) IU/L Alkaline Phosphatase 232 H (46-116) U/L Total Protein 8.8 H (6.4-8.2) g/dL Albumin 3.9 (3.4-5.0) g/dL Globulin 4.9 H (2.6-4.0) g/dL Albumin/Globulin Ratio 0.8 L (0.9-1.6) Urine Color Urine Appearance Urine pH (5.0-8.0) Ur Specific [place] (1.001-1.035) Urine Protein (NEGATIVE) mg/dL Urine Glucose (UA) (NEGATIVE) mg/dL Urine Ketones (NEGATIVE) mg/dL Urine Occult Blood (NEGATIVE) Urine Nitrite (NEGATIVE) Urine Bilirubin (NEGATIVE) Urine Ictotest Urine Urobilinogen (<2.0) EU/dL Ur Leukocyte Esterase (NEGATIVE) Urine RBC (0-2/HPF) Urine WBC (0-5/HPF) Ur Epithelial Cells (NONE-FEW) Urine Bacteria (NEGATIVE) Urine Mucus (NONE-MOD) Urine HCG, Qual (NEGATIVE) Ketones MODERATE H (NEG) 05/28/19 05/28/19 05/28/19 Range/Units 15:03 15:10 17:07 WBC (4.0-11.0) K/uL RBC (4.30-5.90) M/uL Hgb (12.0-16.0) g/dL Hct (36.0-46.0) % MCV (80.0-98.0) fL MCH (27.0-32.0) pg MCHC (31.0-37.0) g/dL RDW Std Deviation (28.0-62.0) fl RDW Coeff of Zak (11.0-15.0) % Plt Count (150-400) K/uL MPV (7.40-12.00) fL Neut % (Auto) (48.0-80.0) % Lymph % (Auto) (16.0-40.0) % [place] % (Auto) (0.0-15.0) % Eos % (Auto) (0.0-7.0) % Baso % (Auto) (0.0-1.5) % Neut # (Auto) (1.4-5.7) K/uL Lymph # (Auto) (0.6-2.4) K/uL [place] # (Auto) (0.0-0.8) K/uL Eos # (Auto) (0.0-0.7) K/uL Baso # (Auto) (0.0-0.1) K/uL Nucleated RBC % /100WBC Nucleated RBCs # K/uL ABG pH 7.130 L* (7.35-7.45) ABG pCO2 11 L (35-45) mmHG ABG pO2 110 H (75-100) mmHG ABG HCO3 4 L (22-26) mEq/L ABG Total CO2 3.6 ABG Base Excess -23.1 L (-2.0-2.0) Sodium (136-145) mmol/L Potassium (3.5-5.1) mmol/L Chloride (98-107) mmol/L Carbon Dioxide (21.0-32.0) mmol/L BUN (7.0-18.0) mg/dL Creatinine (0.6-1.0) mg/dL Est Cr Clr Drug Dosing mL/min Estimated GFR (MDRD) ml/min Glucose (74-106) mg/dL POC Glucose > 500 H 392 H (60-110) mg/dL Calcium (8.5-10.1) mg/dL Phosphorus (2.6-4.7) mg/dL Magnesium (1.8-2.4) mg/dL Total Bilirubin (0.2-1.0) mg/dL AST (15-37) IU/L ALT (14-63) IU/L Alkaline Phosphatase (46-116) U/L Total Protein (6.4-8.2) g/dL Albumin (3.4-5.0) g/dL Globulin (2.6-4.0) g/dL Albumin/Globulin Ratio (0.9-1.6) Urine Color Urine Appearance Urine pH (5.0-8.0) Ur Specific [place] (1.001-1.035) Urine Protein (NEGATIVE) mg/dL Urine Glucose (UA) (NEGATIVE) mg/dL Urine Ketones (NEGATIVE) mg/dL Urine Occult Blood (NEGATIVE) Urine Nitrite (NEGATIVE) Urine Bilirubin (NEGATIVE) Urine Ictotest Urine Urobilinogen (<2.0) EU/dL Ur Leukocyte Esterase (NEGATIVE) Urine RBC (0-2/HPF) Urine WBC (0-5/HPF) Ur Epithelial Cells (NONE-FEW) Urine Bacteria (NEGATIVE) Urine Mucus (NONE-MOD) Urine HCG, Qual (NEGATIVE) Ketones (NEG) Result Diagrams: 05/28/19 14:25 05/28/19 14:25 Problem List Initiated/Reviewed/Updated: Yes Orders Last 24hrs: Active Orders 24 hr Category Date Time Status Admission Status [Patient Status] [ADT] Stat ADT 05/28/19 15:59 Active Antiembolic Devices [RC] PER UNIT ROUTINE Care 05/28/19 16:57 Ordered Blood Glucose Check, Bedside [RC] ONETIME Care 05/28/19 14:27 Active EKG Documentation Completion [RC] STAT Care 05/28/19 14:39 Active Oxygen Therapy [RC] PRN Care 05/28/19 16:56 Ordered Up ad [place] [RC] ASDIRECTED Care 05/28/19 16:56 Ordered VTE/DVT Education [RC] PER UNIT ROUTINE Care 05/28/19 16:56 Ordered Vital Signs [RC] Q4H Care 05/28/19 16:56 Ordered BASIC METABOLIC PANEL,BMP [CHEM] Q4H Lab 05/28/19 18:30 Ordered BASIC METABOLIC PANEL,BMP [CHEM] Q4H Lab 05/28/19 22:30 Ordered BASIC METABOLIC PANEL,BMP [CHEM] Q4H Lab 05/29/19 02:30 Ordered BASIC METABOLIC PANEL,BMP [CHEM] Q4H Lab 05/29/19 06:30 Ordered BASIC METABOLIC PANEL,BMP [CHEM] Q4H Lab 05/29/19 10:30 Ordered BASIC METABOLIC PANEL,BMP [CHEM] Q4H Lab 05/29/19 14:30 Ordered CBC WITH AUTO DIFF [HEME] AM Lab 05/29/19 05:11 Ordered FLUoxetine HCl [Fluoxetine HCl] Med 05/29/19 09:00 Ordered 40 mg PO DAILY Insulin Regular, Human [NovoLIN R] 100 unit Med 05/28/19 15:15 Active Sodium Chloride 0.9% [Normal Saline] 99 ml IV TITRATE LORazepam [Ativan] Med 05/28/19 16:59 Ordered 1 mg PO TID PRN Levothyroxine Med 05/29/19 07:30 Ordered 137 mcg PO ACBREAKFAST Morphine Med 05/28/19 16:59 Ordered 15 mg PO Q4H PRN Morphine Sulfate/Naltrexone [Embeda ER 60-2.4 mg Med 05/28/19 21:00 Ordered Capsule] 1 each PO Q12HR NS + KCl 20mEq/L [Normal Saline with 20 mEq KCl] 1,000 Med 05/28/19 17:15 Ordered ml IV ASDIRECTED Ondansetron [Zofran ODT] Med 05/28/19 16:56 Active 4 mg PO Q4H PRN Rosuvastatin Med 05/28/19 21:00 Ordered 5 mg PO BEDTIME levETIRAcetam [Keppra] Med 05/28/19 21:00 Ordered 500 mg PO BID tiZANidine [Zanaflex] Med 05/28/19 21:00 Ordered 4 mg PO BID Sequential Compression Device [OM.PC] Per Unit Routine Oth 05/28/19 16:56 Ordered Resuscitation Status Routine Resus Stat 05/28/19 16:56 Ordered Medication Orders Insulin Human Regular 100 unit (/ Sodium Chloride) 100 mls @ 5 mls/hr IV TITRATE PIPPA; Protocol Last Admin: 05/28/19 15:35 Dose: 5 unit/hr, 5 mls/hr Potassium Chloride/Sodium Chloride (Normal Saline With 20 Meq Kcl) 1,000 mls @ 999 mls/hr IV ASDIRECTED PIPPA Levetiracetam (Keppra) 500 mg PO BID PIPPA Lorazepam (Ativan) 1 mg PO TID PRN PRN Reason: Anxiety Morphine Sulfate (Morphine) 15 mg PO Q4H PRN PRN Reason: Pain Non-Formulary Medication (Fluoxetine Hcl [Fluoxetine Hcl]) 40 mg PO DAILY PIPPA Non-Formulary Medication (Levothyroxine) 137 mcg PO ACBREAKFAST PIPPA Non-Formulary Medication (Morphine Sulfate/Naltrexone [Embeda Er 60-2.4 Mg Capsule]) 1 each PO Q12HR PIPPA Non-Formulary Medication (Rosuvastatin) 5 mg PO BEDTIME PIPPA Ondansetron HCl (Zofran Odt) 4 mg PO Q4H PRN PRN Reason: nausea, able to take PO Tizanidine HCl (Zanaflex) 4 mg PO BID PIPPA Assessment/Plan Comment:: Assessment: 1. Diabetic ketoacidosis. 2. Hypomagnesemia. Plan: 1. For DKA, patient started on IV fluids, insulin drip and will add potassium to IV fluids per DKA protocol. BMP q4h. Will notify eICU. 2. For hypomagnesemia, will replete with 2 g IV magnesium sulfate. Will recheck with AM labs. <Mirella Warren - Last Filed: 05/29/19 20:08> H&P History of Present Illness - General Admit Problem/Dx: Admission Diagnosis/Problem Admission Diagnosis/Problem Diabetic ketoacidosis abd Pain Score (Numeric/FACES): 10 Back Pain Score (Numeric/FACES): 8 Neck Pain Score (Numeric/FACES): 8 Exam - Vital Signs Vital Signs: Last Vital Signs Temp 37.3 C 05/29/19 18:00 Pulse 105 H 05/29/19 15:00 Resp 21 H 05/29/19 18:00 BP 124/76 05/29/19 18:00 Pulse Ox 98 05/29/19 18:00 - Patient Data Lab Results Last 24 hrs: Laboratory Results - last 24 hr 05/28/19 05/28/19 05/28/19 Range/Units 19:21 19:39 20:15 WBC (4.0-11.0) K/uL RBC (4.30-5.90) M/uL Hgb (12.0-16.0) g/dL Hct (36.0-46.0) % MCV (80.0-98.0) fL MCH (27.0-32.0) pg MCHC (31.0-37.0) g/dL RDW Std Deviation (28.0-62.0) fl RDW Coeff of Zak (11.0-15.0) % Plt Count (150-400) K/uL MPV (7.40-12.00) fL Neut % (Auto) (48.0-80.0) % Lymph % (Auto) (16.0-40.0) % [place] % (Auto) (0.0-15.0) % Eos % (Auto) (0.0-7.0) % Baso % (Auto) (0.0-1.5) % Neut # (Auto) (1.4-5.7) K/uL Lymph # (Auto) (0.6-2.4) K/uL [place] # (Auto) (0.0-0.8) K/uL Eos # (Auto) (0.0-0.7) K/uL Baso # (Auto) (0.0-0.1) K/uL Nucleated RBC % /100WBC Nucleated RBCs # K/uL Sodium 147 H (136-145) mmol/L Potassium 3.1 L (3.5-5.1) mmol/L Chloride 111 H (98-107) mmol/L Carbon Dioxide 9.6 L (21.0-32.0) mmol/L BUN 13 (7.0-18.0) mg/dL Creatinine 1.2 H (0.6-1.0) mg/dL Est Cr Clr Drug Dosing 49.69 mL/min Estimated GFR (MDRD) 53.1 ml/min Glucose 190 H (74-106) mg/dL POC Glucose 193 H 195 H (60-110) mg/dL Calcium 8.4 L (8.5-10.1) mg/dL Phosphorus (2.6-4.7) mg/dL Magnesium (1.8-2.4) mg/dL 05/28/19 05/28/19 05/28/19 Range/Units 21:01 22:04 22:58 WBC (4.0-11.0) K/uL RBC (4.30-5.90) M/uL Hgb (12.0-16.0) g/dL Hct (36.0-46.0) % MCV (80.0-98.0) fL MCH (27.0-32.0) pg MCHC (31.0-37.0) g/dL RDW Std Deviation (28.0-62.0) fl RDW Coeff of Zak (11.0-15.0) % Plt Count (150-400) K/uL MPV (7.40-12.00) fL Neut % (Auto) (48.0-80.0) % Lymph % (Auto) (16.0-40.0) % [place] % (Auto) (0.0-15.0) % Eos % (Auto) (0.0-7.0) % Baso % (Auto) (0.0-1.5) % Neut # (Auto) (1.4-5.7) K/uL Lymph # (Auto) (0.6-2.4) K/uL [place] # (Auto) (0.0-0.8) K/uL Eos # (Auto) (0.0-0.7) K/uL Baso # (Auto) (0.0-0.1) K/uL Nucleated RBC % /100WBC Nucleated RBCs # K/uL Sodium (136-145) mmol/L Potassium (3.5-5.1) mmol/L Chloride (98-107) mmol/L Carbon Dioxide (21.0-32.0) mmol/L BUN (7.0-18.0) mg/dL Creatinine (0.6-1.0) mg/dL Est Cr Clr Drug Dosing mL/min Estimated GFR (MDRD) ml/min Glucose (74-106) mg/dL POC Glucose 155 H 164 H 187 H (60-110) mg/dL Calcium (8.5-10.1) mg/dL Phosphorus (2.6-4.7) mg/dL Magnesium (1.8-2.4) mg/dL 05/28/19 05/29/19 05/29/19 Range/Units 22:59 00:02 01:02 WBC (4.0-11.0) K/uL RBC (4.30-5.90) M/uL Hgb (12.0-16.0) g/dL Hct (36.0-46.0) % MCV (80.0-98.0) fL MCH (27.0-32.0) pg MCHC (31.0-37.0) g/dL RDW Std Deviation (28.0-62.0) fl RDW Coeff of Zak (11.0-15.0) % Plt Count (150-400) K/uL MPV (7.40-12.00) fL Neut % (Auto) (48.0-80.0) % Lymph % (Auto) (16.0-40.0) % [place] % (Auto) (0.0-15.0) % Eos % (Auto) (0.0-7.0) % Baso % (Auto) (0.0-1.5) % Neut # (Auto) (1.4-5.7) K/uL Lymph # (Auto) (0.6-2.4) K/uL [place] # (Auto) (0.0-0.8) K/uL Eos # (Auto) (0.0-0.7) K/uL Baso # (Auto) (0.0-0.1) K/uL Nucleated RBC % /100WBC Nucleated RBCs # K/uL Sodium 148 H (136-145) mmol/L Potassium 2.3 L* (3.5-5.1) mmol/L Chloride 113 H (98-107) mmol/L Carbon Dioxide 17.5 L (21.0-32.0) mmol/L BUN 8 (7.0-18.0) mg/dL Creatinine 1.0 (0.6-1.0) mg/dL Est Cr Clr Drug Dosing 59.62 mL/min Estimated GFR (MDRD) > 60.0 ml/min Glucose 168 H (74-106) mg/dL POC Glucose 163 H 182 H (60-110) mg/dL Calcium 6.8 L (8.5-10.1) mg/dL Phosphorus (2.6-4.7) mg/dL Magnesium (1.8-2.4) mg/dL 05/29/19 05/29/19 05/29/19 Range/Units 01:49 02:30 02:57 WBC (4.0-11.0) K/uL RBC (4.30-5.90) M/uL Hgb (12.0-16.0) g/dL Hct (36.0-46.0) % MCV (80.0-98.0) fL MCH (27.0-32.0) pg MCHC (31.0-37.0) g/dL RDW Std Deviation (28.0-62.0) fl RDW Coeff of Zak (11.0-15.0) % Plt Count (150-400) K/uL MPV (7.40-12.00) fL Neut % (Auto) (48.0-80.0) % Lymph % (Auto) (16.0-40.0) % [place] % (Auto) (0.0-15.0) % Eos % (Auto) (0.0-7.0) % Baso % (Auto) (0.0-1.5) % Neut # (Auto) (1.4-5.7) K/uL Lymph # (Auto) (0.6-2.4) K/uL [place] # (Auto) (0.0-0.8) K/uL Eos # (Auto) (0.0-0.7) K/uL Baso # (Auto) (0.0-0.1) K/uL Nucleated RBC % /100WBC Nucleated RBCs # K/uL Sodium 149 H (136-145) mmol/L Potassium 2.7 L (3.5-5.1) mmol/L Chloride 114 H (98-107) mmol/L Carbon Dioxide 19.4 L (21.0-32.0) mmol/L BUN 6 L (7.0-18.0) mg/dL Creatinine 1.0 (0.6-1.0) mg/dL Est Cr Clr Drug Dosing 59.62 mL/min Estimated GFR (MDRD) > 60.0 ml/min Glucose 165 H (74-106) mg/dL POC Glucose 177 H 180 H (60-110) mg/dL Calcium 6.7 L (8.5-10.1) mg/dL Phosphorus (2.6-4.7) mg/dL Magnesium (1.8-2.4) mg/dL 05/29/19 05/29/19 05/29/19 Range/Units 04:02 05:03 06:20 WBC (4.0-11.0) K/uL RBC (4.30-5.90) M/uL Hgb (12.0-16.0) g/dL Hct (36.0-46.0) % MCV (80.0-98.0) fL MCH (27.0-32.0) pg MCHC (31.0-37.0) g/dL RDW Std Deviation (28.0-62.0) fl RDW Coeff of Zak (11.0-15.0) % Plt Count (150-400) K/uL MPV (7.40-12.00) fL Neut % (Auto) (48.0-80.0) % Lymph % (Auto) (16.0-40.0) % [place] % (Auto) (0.0-15.0) % Eos % (Auto) (0.0-7.0) % Baso % (Auto) (0.0-1.5) % Neut # (Auto) (1.4-5.7) K/uL Lymph # (Auto) (0.6-2.4) K/uL [place] # (Auto) (0.0-0.8) K/uL Eos # (Auto) (0.0-0.7) K/uL Baso # (Auto) (0.0-0.1) K/uL Nucleated RBC % /100WBC Nucleated RBCs # K/uL Sodium (136-145) mmol/L Potassium (3.5-5.1) mmol/L Chloride (98-107) mmol/L Carbon Dioxide (21.0-32.0) mmol/L BUN (7.0-18.0) mg/dL Creatinine (0.6-1.0) mg/dL Est Cr Clr Drug Dosing mL/min Estimated GFR (MDRD) ml/min Glucose (74-106) mg/dL POC Glucose 179 H 177 H 182 H (60-110) mg/dL Calcium (8.5-10.1) mg/dL Phosphorus (2.6-4.7) mg/dL Magnesium (1.8-2.4) mg/dL 05/29/19 05/29/19 05/29/19 Range/Units 07:17 07:18 07:18 WBC 11.63 H (4.0-11.0) K/uL RBC 3.66 L (4.30-5.90) M/uL Hgb 9.6 L (12.0-16.0) g/dL Hct 30.4 L (36.0-46.0) % MCV 83.1 (80.0-98.0) fL MCH 26.2 L (27.0-32.0) pg MCHC 31.6 (31.0-37.0) g/dL RDW Std Deviation 52.4 (28.0-62.0) fl RDW Coeff of Zak 17 H (11.0-15.0) % Plt Count 402 H (150-400) K/uL MPV 9.40 (7.40-12.00) fL Neut % (Auto) 67.4 (48.0-80.0) % Lymph % (Auto) 23.6 (16.0-40.0) % [place] % (Auto) 8.8 (0.0-15.0) % Eos % (Auto) 0.0 (0.0-7.0) % Baso % (Auto) 0.2 (0.0-1.5) % Neut # (Auto) 7.8 H (1.4-5.7) K/uL Lymph # (Auto) 2.8 H (0.6-2.4) K/uL [place] # (Auto) 1.0 H (0.0-0.8) K/uL Eos # (Auto) 0.0 (0.0-0.7) K/uL Baso # (Auto) 0.0 (0.0-0.1) K/uL Nucleated RBC % 0.0 /100WBC Nucleated RBCs # 0 K/uL Sodium 147 H (136-145) mmol/L Potassium 2.9 L (3.5-5.1) mmol/L Chloride 113 H (98-107) mmol/L Carbon Dioxide 19.2 L (21.0-32.0) mmol/L BUN 4 L (7.0-18.0) mg/dL Creatinine 0.9 (0.6-1.0) mg/dL Est Cr Clr Drug Dosing 66.25 mL/min Estimated GFR (MDRD) > 60.0 ml/min Glucose 149 H (74-106) mg/dL POC Glucose 156 H (60-110) mg/dL Calcium 6.8 L (8.5-10.1) mg/dL Phosphorus (2.6-4.7) mg/dL Magnesium (1.8-2.4) mg/dL 05/29/19 05/29/19 05/29/19 Range/Units 07:18 07:18 08:14 WBC (4.0-11.0) K/uL RBC (4.30-5.90) M/uL Hgb (12.0-16.0) g/dL Hct (36.0-46.0) % MCV (80.0-98.0) fL MCH (27.0-32.0) pg MCHC (31.0-37.0) g/dL RDW Std Deviation (28.0-62.0) fl RDW Coeff of Zak (11.0-15.0) % Plt Count (150-400) K/uL MPV (7.40-12.00) fL Neut % (Auto) (48.0-80.0) % Lymph % (Auto) (16.0-40.0) % [place] % (Auto) (0.0-15.0) % Eos % (Auto) (0.0-7.0) % Baso % (Auto) (0.0-1.5) % Neut # (Auto) (1.4-5.7) K/uL Lymph # (Auto) (0.6-2.4) K/uL [place] # (Auto) (0.0-0.8) K/uL Eos # (Auto) (0.0-0.7) K/uL Baso # (Auto) (0.0-0.1) K/uL Nucleated RBC % /100WBC Nucleated RBCs # K/uL Sodium (136-145) mmol/L Potassium (3.5-5.1) mmol/L Chloride (98-107) mmol/L Carbon Dioxide (21.0-32.0) mmol/L BUN (7.0-18.0) mg/dL Creatinine (0.6-1.0) mg/dL Est Cr Clr Drug Dosing mL/min Estimated GFR (MDRD) ml/min Glucose (74-106) mg/dL POC Glucose 116 H (60-110) mg/dL Calcium (8.5-10.1) mg/dL Phosphorus 1.3 L (2.6-4.7) mg/dL Magnesium 1.7 L (1.8-2.4) mg/dL 05/29/19 05/29/19 05/29/19 Range/Units 09:05 10:07 11:40 WBC (4.0-11.0) K/uL RBC (4.30-5.90) M/uL Hgb (12.0-16.0) g/dL Hct (36.0-46.0) % MCV (80.0-98.0) fL MCH (27.0-32.0) pg MCHC (31.0-37.0) g/dL RDW Std Deviation (28.0-62.0) fl RDW Coeff of Zak (11.0-15.0) % Plt Count (150-400) K/uL MPV (7.40-12.00) fL Neut % (Auto) (48.0-80.0) % Lymph % (Auto) (16.0-40.0) % [place] % (Auto) (0.0-15.0) % Eos % (Auto) (0.0-7.0) % Baso % (Auto) (0.0-1.5) % Neut # (Auto) (1.4-5.7) K/uL Lymph # (Auto) (0.6-2.4) K/uL [place] # (Auto) (0.0-0.8) K/uL Eos # (Auto) (0.0-0.7) K/uL Baso # (Auto) (0.0-0.1) K/uL Nucleated RBC % /100WBC Nucleated RBCs # K/uL Sodium (136-145) mmol/L Potassium (3.5-5.1) mmol/L Chloride (98-107) mmol/L Carbon Dioxide (21.0-32.0) mmol/L BUN (7.0-18.0) mg/dL Creatinine (0.6-1.0) mg/dL Est Cr Clr Drug Dosing mL/min Estimated GFR (MDRD) ml/min Glucose (74-106) mg/dL POC Glucose 189 H 215 H 140 H (60-110) mg/dL Calcium (8.5-10.1) mg/dL Phosphorus (2.6-4.7) mg/dL Magnesium (1.8-2.4) mg/dL 05/29/19 05/29/19 05/29/19 Range/Units 12:08 13:10 14:33 WBC (4.0-11.0) K/uL RBC (4.30-5.90) M/uL Hgb (12.0-16.0) g/dL Hct (36.0-46.0) % MCV (80.0-98.0) fL MCH (27.0-32.0) pg MCHC (31.0-37.0) g/dL RDW Std Deviation (28.0-62.0) fl RDW Coeff of Zak (11.0-15.0) % Plt Count (150-400) K/uL MPV (7.40-12.00) fL Neut % (Auto) (48.0-80.0) % Lymph % (Auto) (16.0-40.0) % [place] % (Auto) (0.0-15.0) % Eos % (Auto) (0.0-7.0) % Baso % (Auto) (0.0-1.5) % Neut # (Auto) (1.4-5.7) K/uL Lymph # (Auto) (0.6-2.4) K/uL [place] # (Auto) (0.0-0.8) K/uL Eos # (Auto) (0.0-0.7) K/uL Baso # (Auto) (0.0-0.1) K/uL Nucleated RBC % /100WBC Nucleated RBCs # K/uL Sodium 143 (136-145) mmol/L Potassium 2.9 L (3.5-5.1) mmol/L Chloride 108 H (98-107) mmol/L Carbon Dioxide 19.6 L (21.0-32.0) mmol/L BUN 3 L (7.0-18.0) mg/dL Creatinine 0.8 (0.6-1.0) mg/dL Est Cr Clr Drug Dosing 74.53 mL/min Estimated GFR (MDRD) > 60.0 ml/min Glucose 141 H (74-106) mg/dL POC Glucose 136 H 215 H (60-110) mg/dL Calcium 7.9 L (8.5-10.1) mg/dL Phosphorus (2.6-4.7) mg/dL Magnesium (1.8-2.4) mg/dL 05/29/19 05/29/19 05/29/19 Range/Units 14:33 15:05 16:05 WBC (4.0-11.0) K/uL RBC (4.30-5.90) M/uL Hgb 10.3 L (12.0-16.0) g/dL Hct 32.3 L (36.0-46.0) % MCV (80.0-98.0) fL MCH (27.0-32.0) pg MCHC (31.0-37.0) g/dL RDW Std Deviation (28.0-62.0) fl RDW Coeff of Zak (11.0-15.0) % Plt Count (150-400) K/uL MPV (7.40-12.00) fL Neut % (Auto) (48.0-80.0) % Lymph % (Auto) (16.0-40.0) % [place] % (Auto) (0.0-15.0) % Eos % (Auto) (0.0-7.0) % Baso % (Auto) (0.0-1.5) % Neut # (Auto) (1.4-5.7) K/uL Lymph # (Auto) (0.6-2.4) K/uL [place] # (Auto) (0.0-0.8) K/uL Eos # (Auto) (0.0-0.7) K/uL Baso # (Auto) (0.0-0.1) K/uL Nucleated RBC % /100WBC Nucleated RBCs # K/uL Sodium (136-145) mmol/L Potassium (3.5-5.1) mmol/L Chloride (98-107) mmol/L Carbon Dioxide (21.0-32.0) mmol/L BUN (7.0-18.0) mg/dL Creatinine (0.6-1.0) mg/dL Est Cr Clr Drug Dosing mL/min Estimated GFR (MDRD) ml/min Glucose (74-106) mg/dL POC Glucose 130 H 158 H (60-110) mg/dL Calcium (8.5-10.1) mg/dL Phosphorus (2.6-4.7) mg/dL Magnesium (1.8-2.4) mg/dL 05/29/19 05/29/19 05/29/19 Range/Units 17:08 18:12 18:33 WBC (4.0-11.0) K/uL RBC (4.30-5.90) M/uL Hgb (12.0-16.0) g/dL Hct (36.0-46.0) % MCV (80.0-98.0) fL MCH (27.0-32.0) pg MCHC (31.0-37.0) g/dL RDW Std Deviation (28.0-62.0) fl RDW Coeff of Zak (11.0-15.0) % Plt Count (150-400) K/uL MPV (7.40-12.00) fL Neut % (Auto) (48.0-80.0) % Lymph % (Auto) (16.0-40.0) % [place] % (Auto) (0.0-15.0) % Eos % (Auto) (0.0-7.0) % Baso % (Auto) (0.0-1.5) % Neut # (Auto) (1.4-5.7) K/uL Lymph # (Auto) (0.6-2.4) K/uL [place] # (Auto) (0.0-0.8) K/uL Eos # (Auto) (0.0-0.7) K/uL Baso # (Auto) (0.0-0.1) K/uL Nucleated RBC % /100WBC Nucleated RBCs # K/uL Sodium 141 (136-145) mmol/L Potassium 3.4 L (3.5-5.1) mmol/L Chloride 107 (98-107) mmol/L Carbon Dioxide 20.5 L (21.0-32.0) mmol/L BUN 2 L (7.0-18.0) mg/dL Creatinine 0.7 (0.6-1.0) mg/dL Est Cr Clr Drug Dosing 85.18 mL/min Estimated GFR (MDRD) > 60.0 ml/min Glucose 154 H (74-106) mg/dL POC Glucose 186 H 138 H (60-110) mg/dL Calcium 7.6 L (8.5-10.1) mg/dL Phosphorus (2.6-4.7) mg/dL Magnesium (1.8-2.4) mg/dL Result Diagrams: 05/29/19 14:33 05/29/19 18:33 Orders Last 24hrs: Active Orders 24 hr Category Date Time Status BASIC METABOLIC PANEL,BMP [CHEM] Q4H Lab 05/29/19 22:30 Ordered BASIC METABOLIC PANEL,BMP [CHEM] Q4H Lab 05/30/19 02:30 Ordered BASIC METABOLIC PANEL,BMP [CHEM] Q4H Lab 05/30/19 06:30 Ordered BASIC METABOLIC PANEL,BMP [CHEM] Q4H Lab 05/30/19 10:30 Ordered BASIC METABOLIC PANEL,BMP [CHEM] Q4H Lab 05/30/19 14:30 Ordered CBC WITH AUTO DIFF [HEME] AM Lab 05/30/19 05:11 Ordered MAGNESIUM [CHEM] Routine Lab 05/29/19 22:00 Ordered PHOSPHORUS [CHEM] Stat Lab 05/29/19 22:00 Ordered D5 1/2 NS w/ 20 mEq/L KCl 1,000 ml Med 05/29/19 19:45 Active IV ASDIRECTED FLUoxetine [PROzac] Med 05/29/19 09:00 Active 40 mg PO DAILY Levothyroxine Med 05/29/19 07:30 Active 112 mcg PO ACBREAKFAST Levothyroxine Med 05/29/19 07:30 Active 25 mcg PO ACBREAKFAST Morphine Med 05/28/19 19:58 Active 2 mg IVPUSH Q4H PRN Potassium Chloride Riders [KCL 40 MEQ in Water 100 ML] Med 05/29/19 20:15 Active 100 ml IV ONETIME Rosuvastatin [Crestor] Med 05/28/19 23:48 Active 5 mg PO BEDTIME Sodium Chloride 0.9% [Normal Saline] 1,000 ml Med 05/28/19 20:00 Active IV ASDIRECTED levETIRAcetam [Keppra] 500 mg Med 05/28/19 20:00 Active Dextrose 5% in Water 100 ml IV Q12H tiZANidine [Zanaflex] Med 05/28/19 21:00 Active 4 mg PO BID Medication Orders Fluoxetine HCl (Prozac) 40 mg PO DAILY PIPPA Last Admin: 05/29/19 08:55 Dose: 40 mg Insulin Human Regular 100 unit (/ Sodium Chloride) 100 mls @ 5 mls/hr IV TITRATE PIPPA; Protocol Last Titration: 05/29/19 18:14 Dose: 1 unit/hr, 1 mls/hr Titration: 05/29/19 17:21 Dose: 2 unit/hr, 2 mls/hr Titration: 05/29/19 16:11 Dose: 1.5 unit/hr, 1.5 mls/hr Titration: 05/29/19 15:09 Dose: 1 unit/hr, 1 mls/hr Titration: 05/29/19 14:00 Dose: 2.5 unit/hr, 2.5 mls/hr Titration: 05/29/19 13:00 Dose: 2.5 unit/hr, 2.5 mls/hr Titration: 05/29/19 12:11 Dose: 1 unit/hr, 1 mls/hr Titration: 05/29/19 11:00 Dose: 1 unit/hr, 1 mls/hr Titration: 05/29/19 10:10 Dose: 2.5 unit/hr, 2.5 mls/hr Admin: 05/29/19 09:10 Dose: 2 unit/hr, 2 mls/hr Titration: 05/29/19 08:14 Dose: 1.5 unit/hr, 1.5 mls/hr Titration: 05/29/19 06:23 Dose: 2 unit/hr, 2 mls/hr Titration: 05/29/19 01:50 Dose: 1.5 unit/hr, 1.5 mls/hr Titration: 05/29/19 01:04 Dose: 2 unit/hr, 2 mls/hr Titration: 05/29/19 00:08 Dose: 1.5 unit/hr, 1.5 mls/hr Titration: 05/28/19 23:00 Dose: 2 unit/hr, 2 mls/hr Titration: 05/28/19 21:03 Dose: 1.5 unit/hr, 1.5 mls/hr Titration: 05/28/19 19:40 Dose: 2 unit/hr, 2 mls/hr Admin: 05/28/19 15:35 Dose: 5 unit/hr, 5 mls/hr Sodium Chloride (Normal Saline) 1,000 mls @ 999 mls/hr IV ASDIRECTED PIPPA Stop: 05/29/19 21:01 Last Admin: 05/28/19 22:14 Dose: 999 mls/hr Infusion: 05/28/19 22:12 Dose: 999 mls/hr Admin: 05/28/19 21:11 Dose: 999 mls/hr Levetiracetam 500 mg/ Dextrose (/Water) 105 mls @ 420 mls/hr IV Q12H PIPPA Last Admin: 05/29/19 09:03 Dose: 420 mls/hr Infusion: 05/28/19 21:04 Dose: 420 mls/hr Admin: 05/28/19 20:49 Dose: 420 mls/hr Potassium Chloride/Dextrose/Sod Cl (D5 1/2 Ns W/ 20 Meq/L Kcl) 1,000 mls @ 100 mls/hr IV ASDIRECTED PIPPA Potassium Chloride (Kcl 40 Meq In Water 100 Ml) 100 mls @ 25 mls/hr IV ONETIME ONE Stop: 05/30/19 00:14 Levothyroxine Sodium (Levothyroxine) 112 mcg PO ACBREAKFAST PIPPA Last Admin: 05/29/19 08:00 Dose: 112 mcg Levothyroxine Sodium (Levothyroxine) 25 mcg PO ACBREAKFAST PIPPA Last Admin: 05/29/19 08:00 Dose: 25 mcg Lorazepam (Ativan) 1 mg PO TID PRN PRN Reason: Anxiety Last Admin: 05/29/19 12:00 Dose: 1 mg Admin: 05/29/19 02:47 Dose: 1 mg Morphine Sulfate (Morphine) 2 mg IVPUSH Q4H PRN PRN Reason: Pain Last Admin: 05/29/19 16:57 Dose: 2 mg Admin: 05/29/19 12:40 Dose: 2 mg Admin: 05/29/19 09:34 Dose: 2 mg Admin: 05/29/19 04:58 Dose: 2 mg Admin: 05/28/19 23:20 Dose: 2 mg Ondansetron HCl (Zofran Odt) 4 mg PO Q4H PRN PRN Reason: nausea, able to take PO Last Admin: 05/29/19 16:06 Dose: 4 mg Rosuvastatin Calcium (Crestor) 5 mg PO BEDTIME PIPPA Tizanidine HCl (Zanaflex) 4 mg PO BID PIPPA Last Admin: 05/29/19 08:47 Dose: 4 mg Admin: 05/28/19 20:19 Dose: Assessment/Plan Comment:: I have seen and evaluated the patient and agree with the residents note unless specified in my note
[2019-05-28] MEDS ORDERED: Magnesium Sulfate/Water 2 GM in Premix Bag 1 BAG IV ONE (17:18)
--- NOTE | 2019-05-28 19:05 | CR ---
Indication: Central line placement Technique: Chest 1 view Comparison: Same date at 4:23 p.m. Findings/Impression: Right internal jugular central venous catheter tip terminates at the level of the cavoatrial junction. No pneumothorax or complication from line placement identified. Remainder of the exam is stable compared to the earlier study. Dictated by Felipa Ronquillo MD @ May 28 2019 7:03PM Signed by Dr. Felipa Ronquillo @ May 28 2019 7:04PM
--- NOTE | 2019-05-28 19:23 | OR ---
SURGEON: RHIANNA CASEY MD DATE OF PROCEDURE: 05/28/2019 PREOPERATIVE DIAGNOSIS: Difficult venous access. POSTOPERATIVE DIAGNOSIS: Difficult venous access. PROCEDURE PERFORMED: Right IJ central line placement. PRIMARY SURGEON: Rhianna Casey MD. ANESTHESIA: Local. ESTIMATED BLOOD LOSS: 10 mL. FINDINGS: Right internal jugular triple-lumen central line placed at 15 cm at the skin. Postoperative chest x-ray shows good position of the central line in the superior vena cava. COMPLICATIONS: None. INDICATIONS: The patient is a 28-year-old female with a history of diabetes who presents in diabetic ketoacidosis. She has a longstanding history of difficult IV access and is in need of a central line. The patient and I discussed the procedure, expected perioperative course, and the risks including bleeding, infection, or damage to surrounding structures. She verbalized understanding and wishes to proceed. PROCEDURE IN DETAIL: The patient was met in her ICU bed. A time-out was completed verifying the patient's name, age, date of , allergies, and procedure to be performed. The patient was placed into reverse Trendelenburg position and I identified the right internal jugular vein as well as the right carotid. The right internal jugular vein was small and attenuated. The right neck and chest were prepped and draped in usual standard fashion. The patient was left in a Trendelenburg position. Using ultrasound, I reidentified the vascular structures of the right side of the neck. Using a guide needle and the ultrasound, I gained access into the right internal jugular vein. My first attempt at passing the guidewire was unsuccessful. The needle was removed, and after 2 other attempts, I was able to pass, get the needle into the vein under clear direct visualization and passed the guidewire without difficulty. The needle was removed and the guidewire was left in place. I then used the ultrasound and identified the right internal jugular vein. I could see the guidewire going down the middle of this structure. I then took an 11 blade and made a small tao overlying the guidewire in the skin. A vascular dilator was placed over the guidewire and used to dilate the vascular tract. This was removed and a triple-lumen central catheter was guided over the wire into the superior vena cava. It was placed at 15 cm at the skin. All 3 ports had good return of venous blood and flushed easily. They were capped and locked. The central line was then secured to the skin on either side of the securing device using interrupted 3-0 silk sutures. A sterile dressing was placed. The patient tolerated the procedure well. A postoperative check x-ray was done immediately thereafter. This showed good placement of the catheter in the vena cava with no evidence of any pneumothorax or hemothorax. PAULA CORTEZ /[id number]
--- NOTE | 2019-05-28 19:44 | PN ---
THC Physician - Brief Progress [id number]/27/2019 19:33[facility] Kavon Gordon, [place] - MWN (SALENAN) - MWN ICUD TIM ALEXSANDER C.Date of Service 05/28/2019 19:33HPI/Events of Note eICU admission note:28-year-old female admitting for DKA.On video screen monitor exam:28-yea r-old female no acute distressBlood pressure 142/87 respiratory 23 SPO2 100% heart rate 120Labs revie wedUpon first review with bedside nursing team, nursing team has an order for a bolus with KCl in it, have left a message for telemetry pharmacy to change fluids normal saline x2 L for a bolus and then resume DKA protocol.EICU assessment:Acute DKAAcute kidney injuryMild leukocytosisHypomagnesemiaHypoka lemiaeICU recommendations:Replete electrolytesGive 40 mEq KCl liquid to give the patient p.o. x1 dose , Have left message for telemetry pharmacy to add 40 mEq x1 dose p.o.Normal saline 2 L bolus at 999 m L/h x 2 hours then resume DKA protocol fluidsContinue DKA protocol insulin dripWould replete phosphor us with 20 mmol in sodium phosphorus solutionGI/DVT prophMonitor BMP Q4 hoursSpoke With Mili archibald.Interventions Jdrdk-Earb-Gn[place] disturbance - evaluation and managementMinor-Communication with ot her healthcare providers and/or family, Routine modifications to care plan (e.g. PRN medications for pain, fever)
[2019-05-28] MEDS: Dextrose 5%-0.9% NaCl 1,000 ML IV SCH (19:48)
[2019-05-28] MEDS ORDERED: Potassium Chloride 10% 20 MEQ/15 ML Soln 30 ML UD Cup PO ONE (20:00)
[2019-05-28] MEDS ORDERED: Sodium Phosphate 30 MMOLE in Sodium Chloride 0.9% 250 ML IV ONE (20:15)
[2019-05-28] MEDS: tiZANidine 4 MG Tab PO SCH (20:19)
[2019-05-28 20:25] LABS: CARBON DIOXIDE,CO2 9.6 mmol/L (21.0-32.0); POTASSIUM,K 3.1 mmol/L (3.5-5.1)
[2019-05-28] MEDS ORDERED: NALTREXONE PO SCH (21:00)
[2019-05-28] MEDS ORDERED: ROSUVASTATIN 5 MG PO SCH (21:00)
[2019-05-28] MEDS ORDERED: MORPHINE SULFATE PO SCH (21:00)
[2019-05-28] MEDS ORDERED: [UNRECOGNIZED DRUG - OTHER] PO SCH (21:00)
[2019-05-28] MEDS ORDERED: levETIRAcetam 500 MG Tab PO SCH (21:00)
[2019-05-28] MEDS: Normal Saline 1,000 ML IV SCH ×2 (21:11→22:14)
--- NOTE | 2019-05-28 21:44 | PN ---
THC Physician - Brief Progress [id number]/27/2019 21:15[facility] KavonBOST[place] - EDILSONN (JAMEY) - MWN ICUD ALEXSANDER DUMONTDate of Service 05/28/2019 21:15HPI/Events of Note potassium 3.1vomited oral potassium replacementplan:potassium chloride 40 meq over 2 hours v ia central line onceondensatron 4 mg IV onceInterventions Major-Electrolyte abnormality - evaluation and managementMinor-Routine modifications to care plan (e.g. PRN medications for pain, fever)Electron ically Signed by: Tamera BLANCO) on 05/28/2019 21:17
[2019-05-28] MEDS: Morphine 2 MG/ML Syringe IVPUSH PRN (23:20)
[2019-05-28 23:25] LABS: BLOOD UREA NITROGEN,BUN 8 mg/dL (7.0-18.0); CARBON DIOXIDE,CO2 17.5 mmol/L (21.0-32.0); CHLORIDE,CL 113 mmol/L (98-107); GLUCOSE RANDOM 168 mg/dL (74-106); SODIUM,NA 148 mmol/L (136-145)
[2019-05-28 23:32] LABS: POTASSIUM,K 2.3 mmol/L (3.5-5.1)
[2019-05-28] MEDS ORDERED: Potassium Chloride Riders 40 MEQ in Premix Bag 1 BAG IV ONE (23:34)
[2019-05-29] MEDS: LORazepam 1 MG Tab PO PRN ×3 (02:47→21:55)
[2019-05-29 02:54] LABS: BLOOD UREA NITROGEN,BUN 6 mg/dL (7.0-18.0); CARBON DIOXIDE,CO2 19.4 mmol/L (21.0-32.0); CHLORIDE,CL 114 mmol/L (98-107); GLUCOSE RANDOM 165 mg/dL (74-106); POTASSIUM,K 2.7 mmol/L (3.5-5.1); SODIUM,NA 149 mmol/L (136-145)
[2019-05-29] MEDS ORDERED: Potassium Chloride Riders 40 MEQ in Premix Bag 1 BAG IV ONE (03:36)
[2019-05-29] MEDS ORDERED: Ondansetron 4 MG/2 ML SDV IVPUSH ONE (03:36)
[2019-05-29] MEDS: Dextrose 5%-0.9% NaCl 1,000 ML IV SCH (03:42)
--- NOTE | 2019-05-29 03:59 | PN ---
THC Physician - Brief Progress [id number]/28/2019 03:51[facility] [place] - [place] ([place]) - MWN ICUD ALEXSANDER DUMONTDate of Service 05/29/2019 03:51HPI/Events of Note Repeat K+ after KCl 40 meq IV = 2.7. Will give additional 40 meq iv (will likely need more t lee this).Also, patient still having nausea and vomiting. Last dose of zofran was more than 3 hours ago and was effective.Order another 4 mg of iv zofran x 1.Interventions Minor-Electrolyte abnormality - evaluation and management, Other: nausea
[2019-05-29] MEDS: Morphine 2 MG/ML Syringe IVPUSH PRN ×5 (04:58→20:58)
[2019-05-29] MEDS ORDERED: LEVOTHYROXINE 137 MCG PO SCH (07:30)
[2019-05-29 07:49] LABS: BLOOD UREA NITROGEN,BUN 4 mg/dL (7.0-18.0); CARBON DIOXIDE,CO2 19.2 mmol/L (21.0-32.0); CHLORIDE,CL 113 mmol/L (98-107); GLUCOSE RANDOM 149 mg/dL (74-106); POTASSIUM,K 2.9 mmol/L (3.5-5.1); SODIUM,NA 147 mmol/L (136-145)
[2019-05-29] MEDS: Levothyroxine 112 MCG Tab PO SCH (08:00)
[2019-05-29] MEDS: Levothyroxine 25 MCG Tab PO SCH (08:00)
[2019-05-29] MEDS: tiZANidine 4 MG Tab PO SCH ×2 (08:47→20:28)
--- NOTE | 2019-05-29 08:47 | PN ---
THC Physician - Brief Progress [id number]/28/2019 08:45[facility] chi Kavon, [place] - MWN (JAMEY) - MWN ICUD ALEXSANDER DUMONTDate of Service 05/29/2019 08:45HPI/Events of Note K+ 2.9, phos 1.3, Mg++ 1.7, Calcium 6.8 and Phos 1.3.Order MgSulfate 2 gms, KCl 20 meq and C aGluconate 2 gms followed by KPhos 15 meq the recheck levels.Interventions Intermediate-Electrolyte a bnormality - evaluation and management 08 :47
--- NOTE | 2019-05-29 08:49 | PN ---
THC Physician - Brief Progress [id number]/28/2019 08:45[facility] Kavon mireles, [place] - MWN (JAMEY) - MWN ICUD ALEXSANDER DUMONTDate of Service 05/29/2019 08:45HPI/Events of Note K+ 2.9, phos 1.3, Mg++ 1.7, Calcium 6.8 and Phos 1.3.Order MgSulfate 2 gms, KCl 20 meq and C aGluconate 2 gms followed by KPhos 15 meq the recheck levels.Interventions Intermediate-Electrolyte a bnormality - evaluation and management 08 :47Annotated By: SHAW JOHNSON) Date: 05/29/19 08:49I neglected to mention that glc down to 110s with dextrose infusion and insulin dose at 0.5 units/hr. Total CO2 still 19 with anion gap ~15. Patient still experiencing nausea and vomiting.Not ready for transition off iv insulin yet.
[2019-05-29] MEDS: FLUoxetine 20 MG Cap PO SCH (08:55)
[2019-05-29] MEDS ORDERED: Dextrose 5%-0.45% NaCl 1,000 ML IV SCH (10:00)
[2019-05-29] MEDS ORDERED: Calcium Gluconate 10% 1 GM/10 ML SDV IV ONE (10:23)
[2019-05-29] MEDS ORDERED: Magnesium Sulfate/Water 2 GM in Premix Bag 1 BAG IV ONE (10:25)
--- NOTE | 2019-05-29 10:49 | PN ---
THC Physician - Brief Progress [id number]/28/2019 10:28[facility] Kavon Gordon, [place] - EDILSONN (JAMEY) - MWN ICUD ALEXSANDER DUMONTDate of Service 05/29/2019 10:28HPI/Events of Note Electrolyte replacement orders delayed due to computer access issues. Now ordered.Bedside daniela pereira has changed D5NS to D5-1/2 NS due to increase in Na+ to 147 and patient c/o thirst.Also note that Hgb has dropped from 13.1 to 9.6. Her previous baseline, however, seems to be ~11. Nurse repor ts no overt signs of bleeding. I suspect combination of chronic anemia, dilution and phlebotomy.Rech yanet H&H with afternoon chemistry blood draw.Interventions Minor-Other: anemia
[2019-05-29] MEDS ORDERED: Potassium Chloride Riders 20 MEQ in Premix Bag 1 BAG IV ONE ×2 (11:00→15:49)
[2019-05-29] MEDS ORDERED: Potassium Phosphates 15 MMOLE in Sodium Chloride 0.9% 250 ML IV ONE (13:00)
[2019-05-29 15:07] LABS: BLOOD UREA NITROGEN,BUN 3 mg/dL (7.0-18.0); CARBON DIOXIDE,CO2 19.6 mmol/L (21.0-32.0); CHLORIDE,CL 108 mmol/L (98-107); GLUCOSE RANDOM 141 mg/dL (74-106); POTASSIUM,K 2.9 mmol/L (3.5-5.1); SODIUM,NA 143 mmol/L (136-145)
--- NOTE | 2019-05-29 15:51 | PN ---
THC Physician - Brief Progress [id number]/28/2019 15:50[facility] Cui chiKavon, [place] - MWN (JAMEY) - MWN ICUD ALEXSANDER DUMONTDate of Service 05/29/2019 15:50HPI/Events of Note K+ low, getting KPhos. Will give KCL 20meq IV x1. Follow labs.Interventions Intermediate- Communication with other healthcare providers and/or family, Diagnostic test evaluation, Electrolyte abnormality - evaluation and management
[2019-05-29] MEDS: Ondansetron 4 MG Tab.DIS PO PRN ×2 (16:06→20:58)
--- NOTE | 2019-05-29 17:59 | PCM.PN ---
<Shayan Pollard M - Last Filed: 05/29/19 17:55> - General Info Date of Service: 05/29/19 Subjective Update: Patient complained of feeling thirst this morning. Denied any shortness of breath. Urinating frequently. - Patient Data Vitals - Most Recent: Last Vital Signs Temp 98.6 F 05/29/19 17:00 Pulse 105 H 05/29/19 15:00 Resp 19 05/29/19 17:00 BP 117/72 05/29/19 17:00 Pulse Ox 99 05/29/19 17:00 Weight - Most Recent: 54.5 kg I&O - Last 24 Hours: Intake & Output 05/29/19 05/29/19 05/29/19 06:59 14:59 22:59 Intake Total 2505 150 Output Total 1550 650 Balance 955 -500 Lab Results Last 24 Hours: Laboratory Results - last 24 hr 05/28/19 05/28/19 05/28/19 Range/Units 19:21 19:39 20:15 WBC (4.0-11.0) K/uL RBC (4.30-5.90) M/uL Hgb (12.0-16.0) g/dL Hct (36.0-46.0) % MCV (80.0-98.0) fL MCH (27.0-32.0) pg MCHC (31.0-37.0) g/dL RDW Std Deviation (28.0-62.0) fl RDW Coeff of Zak (11.0-15.0) % Plt Count (150-400) K/uL MPV (7.40-12.00) fL Neut % (Auto) (48.0-80.0) % Lymph % (Auto) (16.0-40.0) % [place] % (Auto) (0.0-15.0) % Eos % (Auto) (0.0-7.0) % Baso % (Auto) (0.0-1.5) % Neut # (Auto) (1.4-5.7) K/uL Lymph # (Auto) (0.6-2.4) K/uL [place] # (Auto) (0.0-0.8) K/uL Eos # (Auto) (0.0-0.7) K/uL Baso # (Auto) (0.0-0.1) K/uL Nucleated RBC % /100WBC Nucleated RBCs # K/uL Sodium 147 H (136-145) mmol/L Potassium 3.1 L (3.5-5.1) mmol/L Chloride 111 H (98-107) mmol/L Carbon Dioxide 9.6 L (21.0-32.0) mmol/L BUN 13 (7.0-18.0) mg/dL Creatinine 1.2 H (0.6-1.0) mg/dL Est Cr Clr Drug Dosing 49.69 mL/min Estimated GFR (MDRD) 53.1 ml/min Glucose 190 H (74-106) mg/dL POC Glucose 193 H 195 H (60-110) mg/dL Calcium 8.4 L (8.5-10.1) mg/dL Phosphorus (2.6-4.7) mg/dL Magnesium (1.8-2.4) mg/dL 05/28/19 05/28/19 05/28/19 Range/Units 21:01 22:04 22:58 WBC (4.0-11.0) K/uL RBC (4.30-5.90) M/uL Hgb (12.0-16.0) g/dL Hct (36.0-46.0) % MCV (80.0-98.0) fL MCH (27.0-32.0) pg MCHC (31.0-37.0) g/dL RDW Std Deviation (28.0-62.0) fl RDW Coeff of Zak (11.0-15.0) % Plt Count (150-400) K/uL MPV (7.40-12.00) fL Neut % (Auto) (48.0-80.0) % Lymph % (Auto) (16.0-40.0) % [place] % (Auto) (0.0-15.0) % Eos % (Auto) (0.0-7.0) % Baso % (Auto) (0.0-1.5) % Neut # (Auto) (1.4-5.7) K/uL Lymph # (Auto) (0.6-2.4) K/uL [place] # (Auto) (0.0-0.8) K/uL Eos # (Auto) (0.0-0.7) K/uL Baso # (Auto) (0.0-0.1) K/uL Nucleated RBC % /100WBC Nucleated RBCs # K/uL Sodium (136-145) mmol/L Potassium (3.5-5.1) mmol/L Chloride (98-107) mmol/L Carbon Dioxide (21.0-32.0) mmol/L BUN (7.0-18.0) mg/dL Creatinine (0.6-1.0) mg/dL Est Cr Clr Drug Dosing mL/min Estimated GFR (MDRD) ml/min Glucose (74-106) mg/dL POC Glucose 155 H 164 H 187 H (60-110) mg/dL Calcium (8.5-10.1) mg/dL Phosphorus (2.6-4.7) mg/dL Magnesium (1.8-2.4) mg/dL 05/28/19 05/29/19 05/29/19 Range/Units 22:59 00:02 01:02 WBC (4.0-11.0) K/uL RBC (4.30-5.90) M/uL Hgb (12.0-16.0) g/dL Hct (36.0-46.0) % MCV (80.0-98.0) fL MCH (27.0-32.0) pg MCHC (31.0-37.0) g/dL RDW Std Deviation (28.0-62.0) fl RDW Coeff of Zak (11.0-15.0) % Plt Count (150-400) K/uL MPV (7.40-12.00) fL Neut % (Auto) (48.0-80.0) % Lymph % (Auto) (16.0-40.0) % [place] % (Auto) (0.0-15.0) % Eos % (Auto) (0.0-7.0) % Baso % (Auto) (0.0-1.5) % Neut # (Auto) (1.4-5.7) K/uL Lymph # (Auto) (0.6-2.4) K/uL [place] # (Auto) (0.0-0.8) K/uL Eos # (Auto) (0.0-0.7) K/uL Baso # (Auto) (0.0-0.1) K/uL Nucleated RBC % /100WBC Nucleated RBCs # K/uL Sodium 148 H (136-145) mmol/L Potassium 2.3 L* (3.5-5.1) mmol/L Chloride 113 H (98-107) mmol/L Carbon Dioxide 17.5 L (21.0-32.0) mmol/L BUN 8 (7.0-18.0) mg/dL Creatinine 1.0 (0.6-1.0) mg/dL Est Cr Clr Drug Dosing 59.62 mL/min Estimated GFR (MDRD) > 60.0 ml/min Glucose 168 H (74-106) mg/dL POC Glucose 163 H 182 H (60-110) mg/dL Calcium 6.8 L (8.5-10.1) mg/dL Phosphorus (2.6-4.7) mg/dL Magnesium (1.8-2.4) mg/dL 05/29/19 05/29/19 05/29/19 Range/Units 01:49 02:30 02:57 WBC (4.0-11.0) K/uL RBC (4.30-5.90) M/uL Hgb (12.0-16.0) g/dL Hct (36.0-46.0) % MCV (80.0-98.0) fL MCH (27.0-32.0) pg MCHC (31.0-37.0) g/dL RDW Std Deviation (28.0-62.0) fl RDW Coeff of Zak (11.0-15.0) % Plt Count (150-400) K/uL MPV (7.40-12.00) fL Neut % (Auto) (48.0-80.0) % Lymph % (Auto) (16.0-40.0) % [place] % (Auto) (0.0-15.0) % Eos % (Auto) (0.0-7.0) % Baso % (Auto) (0.0-1.5) % Neut # (Auto) (1.4-5.7) K/uL Lymph # (Auto) (0.6-2.4) K/uL [place] # (Auto) (0.0-0.8) K/uL Eos # (Auto) (0.0-0.7) K/uL Baso # (Auto) (0.0-0.1) K/uL Nucleated RBC % /100WBC Nucleated RBCs # K/uL Sodium 149 H (136-145) mmol/L Potassium 2.7 L (3.5-5.1) mmol/L Chloride 114 H (98-107) mmol/L Carbon Dioxide 19.4 L (21.0-32.0) mmol/L BUN 6 L (7.0-18.0) mg/dL Creatinine 1.0 (0.6-1.0) mg/dL Est Cr Clr Drug Dosing 59.62 mL/min Estimated GFR (MDRD) > 60.0 ml/min Glucose 165 H (74-106) mg/dL POC Glucose 177 H 180 H (60-110) mg/dL Calcium 6.7 L (8.5-10.1) mg/dL Phosphorus (2.6-4.7) mg/dL Magnesium (1.8-2.4) mg/dL 05/29/19 05/29/19 05/29/19 Range/Units 04:02 05:03 06:20 WBC (4.0-11.0) K/uL RBC (4.30-5.90) M/uL Hgb (12.0-16.0) g/dL Hct (36.0-46.0) % MCV (80.0-98.0) fL MCH (27.0-32.0) pg MCHC (31.0-37.0) g/dL RDW Std Deviation (28.0-62.0) fl RDW Coeff of Zak (11.0-15.0) % Plt Count (150-400) K/uL MPV (7.40-12.00) fL Neut % (Auto) (48.0-80.0) % Lymph % (Auto) (16.0-40.0) % [place] % (Auto) (0.0-15.0) % Eos % (Auto) (0.0-7.0) % Baso % (Auto) (0.0-1.5) % Neut # (Auto) (1.4-5.7) K/uL Lymph # (Auto) (0.6-2.4) K/uL [place] # (Auto) (0.0-0.8) K/uL Eos # (Auto) (0.0-0.7) K/uL Baso # (Auto) (0.0-0.1) K/uL Nucleated RBC % /100WBC Nucleated RBCs # K/uL Sodium (136-145) mmol/L Potassium (3.5-5.1) mmol/L Chloride (98-107) mmol/L Carbon Dioxide (21.0-32.0) mmol/L BUN (7.0-18.0) mg/dL Creatinine (0.6-1.0) mg/dL Est Cr Clr Drug Dosing mL/min Estimated GFR (MDRD) ml/min Glucose (74-106) mg/dL POC Glucose 179 H 177 H 182 H (60-110) mg/dL Calcium (8.5-10.1) mg/dL Phosphorus (2.6-4.7) mg/dL Magnesium (1.8-2.4) mg/dL 05/29/19 05/29/19 05/29/19 Range/Units 07:17 07:18 07:18 WBC 11.63 H (4.0-11.0) K/uL RBC 3.66 L (4.30-5.90) M/uL Hgb 9.6 L (12.0-16.0) g/dL Hct 30.4 L (36.0-46.0) % MCV 83.1 (80.0-98.0) fL MCH 26.2 L (27.0-32.0) pg MCHC 31.6 (31.0-37.0) g/dL RDW Std Deviation 52.4 (28.0-62.0) fl RDW Coeff of Zak 17 H (11.0-15.0) % Plt Count 402 H (150-400) K/uL MPV 9.40 (7.40-12.00) fL Neut % (Auto) 67.4 (48.0-80.0) % Lymph % (Auto) 23.6 (16.0-40.0) % [place] % (Auto) 8.8 (0.0-15.0) % Eos % (Auto) 0.0 (0.0-7.0) % Baso % (Auto) 0.2 (0.0-1.5) % Neut # (Auto) 7.8 H (1.4-5.7) K/uL Lymph # (Auto) 2.8 H (0.6-2.4) K/uL [place] # (Auto) 1.0 H (0.0-0.8) K/uL Eos # (Auto) 0.0 (0.0-0.7) K/uL Baso # (Auto) 0.0 (0.0-0.1) K/uL Nucleated RBC % 0.0 /100WBC Nucleated RBCs # 0 K/uL Sodium 147 H (136-145) mmol/L Potassium 2.9 L (3.5-5.1) mmol/L Chloride 113 H (98-107) mmol/L Carbon Dioxide 19.2 L (21.0-32.0) mmol/L BUN 4 L (7.0-18.0) mg/dL Creatinine 0.9 (0.6-1.0) mg/dL Est Cr Clr Drug Dosing 66.25 mL/min Estimated GFR (MDRD) > 60.0 ml/min Glucose 149 H (74-106) mg/dL POC Glucose 156 H (60-110) mg/dL Calcium 6.8 L (8.5-10.1) mg/dL Phosphorus (2.6-4.7) mg/dL Magnesium (1.8-2.4) mg/dL 05/29/19 05/29/19 05/29/19 Range/Units 07:18 07:18 08:14 WBC (4.0-11.0) K/uL RBC (4.30-5.90) M/uL Hgb (12.0-16.0) g/dL Hct (36.0-46.0) % MCV (80.0-98.0) fL MCH (27.0-32.0) pg MCHC (31.0-37.0) g/dL RDW Std Deviation (28.0-62.0) fl RDW Coeff of Zak (11.0-15.0) % Plt Count (150-400) K/uL MPV (7.40-12.00) fL Neut % (Auto) (48.0-80.0) % Lymph % (Auto) (16.0-40.0) % [place] % (Auto) (0.0-15.0) % Eos % (Auto) (0.0-7.0) % Baso % (Auto) (0.0-1.5) % Neut # (Auto) (1.4-5.7) K/uL Lymph # (Auto) (0.6-2.4) K/uL [place] # (Auto) (0.0-0.8) K/uL Eos # (Auto) (0.0-0.7) K/uL Baso # (Auto) (0.0-0.1) K/uL Nucleated RBC % /100WBC Nucleated RBCs # K/uL Sodium (136-145) mmol/L Potassium (3.5-5.1) mmol/L Chloride (98-107) mmol/L Carbon Dioxide (21.0-32.0) mmol/L BUN (7.0-18.0) mg/dL Creatinine (0.6-1.0) mg/dL Est Cr Clr Drug Dosing mL/min Estimated GFR (MDRD) ml/min Glucose (74-106) mg/dL POC Glucose 116 H (60-110) mg/dL Calcium (8.5-10.1) mg/dL Phosphorus 1.3 L (2.6-4.7) mg/dL Magnesium 1.7 L (1.8-2.4) mg/dL 05/29/19 05/29/19 05/29/19 Range/Units 09:05 10:07 11:40 WBC (4.0-11.0) K/uL RBC (4.30-5.90) M/uL Hgb (12.0-16.0) g/dL Hct (36.0-46.0) % MCV (80.0-98.0) fL MCH (27.0-32.0) pg MCHC (31.0-37.0) g/dL RDW Std Deviation (28.0-62.0) fl RDW Coeff of Zak (11.0-15.0) % Plt Count (150-400) K/uL MPV (7.40-12.00) fL Neut % (Auto) (48.0-80.0) % Lymph % (Auto) (16.0-40.0) % [place] % (Auto) (0.0-15.0) % Eos % (Auto) (0.0-7.0) % Baso % (Auto) (0.0-1.5) % Neut # (Auto) (1.4-5.7) K/uL Lymph # (Auto) (0.6-2.4) K/uL [place] # (Auto) (0.0-0.8) K/uL Eos # (Auto) (0.0-0.7) K/uL Baso # (Auto) (0.0-0.1) K/uL Nucleated RBC % /100WBC Nucleated RBCs # K/uL Sodium (136-145) mmol/L Potassium (3.5-5.1) mmol/L Chloride (98-107) mmol/L Carbon Dioxide (21.0-32.0) mmol/L BUN (7.0-18.0) mg/dL Creatinine (0.6-1.0) mg/dL Est Cr Clr Drug Dosing mL/min Estimated GFR (MDRD) ml/min Glucose (74-106) mg/dL POC Glucose 189 H 215 H 140 H (60-110) mg/dL Calcium (8.5-10.1) mg/dL Phosphorus (2.6-4.7) mg/dL Magnesium (1.8-2.4) mg/dL 05/29/19 05/29/19 05/29/19 Range/Units 12:08 13:10 14:33 WBC (4.0-11.0) K/uL RBC (4.30-5.90) M/uL Hgb (12.0-16.0) g/dL Hct (36.0-46.0) % MCV (80.0-98.0) fL MCH (27.0-32.0) pg MCHC (31.0-37.0) g/dL RDW Std Deviation (28.0-62.0) fl RDW Coeff of Zak (11.0-15.0) % Plt Count (150-400) K/uL MPV (7.40-12.00) fL Neut % (Auto) (48.0-80.0) % Lymph % (Auto) (16.0-40.0) % [place] % (Auto) (0.0-15.0) % Eos % (Auto) (0.0-7.0) % Baso % (Auto) (0.0-1.5) % Neut # (Auto) (1.4-5.7) K/uL Lymph # (Auto) (0.6-2.4) K/uL [place] # (Auto) (0.0-0.8) K/uL Eos # (Auto) (0.0-0.7) K/uL Baso # (Auto) (0.0-0.1) K/uL Nucleated RBC % /100WBC Nucleated RBCs # K/uL Sodium 143 (136-145) mmol/L Potassium 2.9 L (3.5-5.1) mmol/L Chloride 108 H (98-107) mmol/L Carbon Dioxide 19.6 L (21.0-32.0) mmol/L BUN 3 L (7.0-18.0) mg/dL Creatinine 0.8 (0.6-1.0) mg/dL Est Cr Clr Drug Dosing 74.53 mL/min Estimated GFR (MDRD) > 60.0 ml/min Glucose 141 H (74-106) mg/dL POC Glucose 136 H 215 H (60-110) mg/dL Calcium 7.9 L (8.5-10.1) mg/dL Phosphorus (2.6-4.7) mg/dL Magnesium (1.8-2.4) mg/dL 05/29/19 05/29/19 05/29/19 Range/Units 14:33 15:05 16:05 WBC (4.0-11.0) K/uL RBC (4.30-5.90) M/uL Hgb 10.3 L (12.0-16.0) g/dL Hct 32.3 L (36.0-46.0) % MCV (80.0-98.0) fL MCH (27.0-32.0) pg MCHC (31.0-37.0) g/dL RDW Std Deviation (28.0-62.0) fl RDW Coeff of Zak (11.0-15.0) % Plt Count (150-400) K/uL MPV (7.40-12.00) fL Neut % (Auto) (48.0-80.0) % Lymph % (Auto) (16.0-40.0) % [place] % (Auto) (0.0-15.0) % Eos % (Auto) (0.0-7.0) % Baso % (Auto) (0.0-1.5) % Neut # (Auto) (1.4-5.7) K/uL Lymph # (Auto) (0.6-2.4) K/uL [place] # (Auto) (0.0-0.8) K/uL Eos # (Auto) (0.0-0.7) K/uL Baso # (Auto) (0.0-0.1) K/uL Nucleated RBC % /100WBC Nucleated RBCs # K/uL Sodium (136-145) mmol/L Potassium (3.5-5.1) mmol/L Chloride (98-107) mmol/L Carbon Dioxide (21.0-32.0) mmol/L BUN (7.0-18.0) mg/dL Creatinine (0.6-1.0) mg/dL Est Cr Clr Drug Dosing mL/min Estimated GFR (MDRD) ml/min Glucose (74-106) mg/dL POC Glucose 130 H 158 H (60-110) mg/dL Calcium (8.5-10.1) mg/dL Phosphorus (2.6-4.7) mg/dL Magnesium (1.8-2.4) mg/dL 05/29/19 Range/Units 17:08 WBC (4.0-11.0) K/uL RBC (4.30-5.90) M/uL Hgb (12.0-16.0) g/dL Hct (36.0-46.0) % MCV (80.0-98.0) fL MCH (27.0-32.0) pg MCHC (31.0-37.0) g/dL RDW Std Deviation (28.0-62.0) fl RDW Coeff of Zak (11.0-15.0) % Plt Count (150-400) K/uL MPV (7.40-12.00) fL Neut % (Auto) (48.0-80.0) % Lymph % (Auto) (16.0-40.0) % [place] % (Auto) (0.0-15.0) % Eos % (Auto) (0.0-7.0) % Baso % (Auto) (0.0-1.5) % Neut # (Auto) (1.4-5.7) K/uL Lymph # (Auto) (0.6-2.4) K/uL [place] # (Auto) (0.0-0.8) K/uL Eos # (Auto) (0.0-0.7) K/uL Baso # (Auto) (0.0-0.1) K/uL Nucleated RBC % /100WBC Nucleated RBCs # K/uL Sodium (136-145) mmol/L Potassium (3.5-5.1) mmol/L Chloride (98-107) mmol/L Carbon Dioxide (21.0-32.0) mmol/L BUN (7.0-18.0) mg/dL Creatinine (0.6-1.0) mg/dL Est Cr Clr Drug Dosing mL/min Estimated GFR (MDRD) ml/min Glucose (74-106) mg/dL POC Glucose 186 H (60-110) mg/dL Calcium (8.5-10.1) mg/dL Phosphorus (2.6-4.7) mg/dL Magnesium (1.8-2.4) mg/dL Med Orders - Current: Current Medications Fluoxetine HCl (Prozac) 40 mg PO DAILY PIPPA Last Admin: 05/29/19 08:55 Dose: 40 mg Insulin Human Regular 100 unit (/ Sodium Chloride) 100 mls @ 5 mls/hr IV TITRATE PIPPA; Protocol Last Titration: 05/29/19 17:21 Dose: 2 unit/hr, 2 mls/hr Sodium Chloride (Normal Saline) 1,000 mls @ 999 mls/hr IV ASDIRECTED PIPPA Stop: 05/29/19 21:01 Last Admin: 05/28/19 22:14 Dose: 999 mls/hr Levetiracetam 500 mg/ Dextrose (/Water) 105 mls @ 420 mls/hr IV Q12H PIPPA Last Admin: 05/29/19 09:03 Dose: 420 mls/hr Dextrose/Sodium Chloride (Dextrose 5%-1/2 Ns) 1,000 mls @ 125 mls/hr IV ASDIRECTED PIPPA Last Admin: 05/29/19 10:24 Dose: 125 mls/hr Levothyroxine Sodium (Levothyroxine) 112 mcg PO ACBREAKFAST PIPPA Last Admin: 05/29/19 08:00 Dose: 112 mcg Levothyroxine Sodium (Levothyroxine) 25 mcg PO ACBREAKFAST PIPPA Last Admin: 05/29/19 08:00 Dose: 25 mcg Lorazepam (Ativan) 1 mg PO TID PRN PRN Reason: Anxiety Last Admin: 05/29/19 12:00 Dose: 1 mg Morphine Sulfate (Morphine) 2 mg IVPUSH Q4H PRN PRN Reason: Pain Last Admin: 05/29/19 16:57 Dose: 2 mg Ondansetron HCl (Zofran Odt) 4 mg PO Q4H PRN PRN Reason: nausea, able to take PO Last Admin: 05/29/19 16:06 Dose: 4 mg Rosuvastatin Calcium (Crestor) 5 mg PO BEDTIME [facility] Tizanidine HCl (Zanaflex) 4 mg PO BID [facility] Last Admin: 05/29/19 08:47 Dose: 4 mg Discontinued Medications Calcium Gluconate (Calcium Gluconate) 2 gm IV ONETIME ONE Stop: 05/29/19 10:24 Last Admin: 05/29/19 10:57 Dose: 2 gm Sodium Chloride (Normal Saline) 1,000 mls @ 999 mls/hr IV BOLUS ONE Stop: 05/28/19 15:27 Last Admin: 05/28/19 15:05 Dose: 999 mls/hr Sodium Chloride (Normal Saline) 1,000 mls @ 999 mls/hr IV STAT ONE Stop: 05/28/19 16:59 Last Admin: 05/28/19 16:18 Dose: 999 mls/hr Potassium Chloride 20 meq/ (Premix) 50 mls @ 25 mls/hr IV ONETIME STA Stop: 05/28/19 19:03 Last Admin: 05/28/19 19:51 Dose: Not Given Potassium Chloride/Sodium Chloride (Normal Saline With 20 Meq Kcl) 1,000 mls @ 999 mls/hr IV ASDIRECTED [facility] Magnesium Sulfate 2 gm/ Premix 50 mls @ 25 mls/hr IV ONETIME ONE Stop: 05/28/19 19:17 Last Admin: 05/28/19 18:45 Dose: 25 mls/hr Potassium Chloride/Sodium Chloride (Normal Saline With 20 Meq Kcl) 1,000 mls @ 999 mls/hr IV ASDIRECTED PIPPA Dextrose/Sodium Chloride (Dextrose 5%-Normal Saline) 1,000 mls @ 125 mls/hr IV ASDIRECTED PIPPA Last Admin: 05/29/19 03:42 Dose: 125 mls/hr Sodium Phosphate 30 mmole/ (Sodium Chloride) 260 mls @ 86 mls/hr IV ONETIME ONE Stop: 05/28/19 23:16 Last Admin: 05/28/19 21:20 Dose: 86 mls/hr Potassium Chloride 40 meq/ (Premix) 100 mls @ 50 mls/hr IV ONETIME ONE Stop: 05/29/19 01:33 Last Admin: 05/28/19 23:50 Dose: 50 mls/hr Potassium Chloride 40 meq/ (Premix) 100 mls @ 25 mls/hr IV ONETIME ONE Stop: 05/29/19 07:35 Last Admin: 05/29/19 03:42 Dose: 25 mls/hr Potassium Chloride 20 meq/ (Premix) 50 mls @ 25 mls/hr IV ONETIME ONE Stop: 05/29/19 12:59 Last Admin: 05/29/19 11:36 Dose: 25 mls/hr Magnesium Sulfate 2 gm/ Premix 50 mls @ 50 mls/hr IV ONETIME ONE Stop: 05/29/19 11:24 Last Admin: 05/29/19 11:17 Dose: 50 mls/hr Potassium Phosphate 15 mmole/ (Sodium Chloride) 255 mls @ 85 mls/hr IV ONETIME ONE Stop: 05/29/19 15:59 Last Admin: 05/29/19 12:59 Dose: 85 mls/hr Potassium Chloride 20 meq/ (Premix) 50 mls @ 25 mls/hr IV ONETIME ONE Stop: 05/29/19 17:48 Last Admin: 05/29/19 16:48 Dose: 25 mls/hr Ketorolac Tromethamine (Toradol) 30 mg IVPUSH ONETIME ONE Stop: 05/28/19 14:40 Last Admin: 05/28/19 15:05 Dose: Not Given Levetiracetam (Keppra) 500 mg PO BID [facility] Morphine Sulfate (Morphine) 2 mg IVPUSH ONETIME ONE Stop: 05/28/19 15:44 Last Admin: 05/28/19 15:55 Dose: Not Given Morphine Sulfate (Morphine) 15 mg PO Q4H PRN PRN Reason: Pain Last Admin: 05/28/19 18:43 Dose: 15 mg Non-Formulary Medication (Levothyroxine) 137 mcg PO ACBREAKFAST [facility] Non-Formulary Medication (Morphine Sulfate/Naltrexone [Embeda Er 60-2.4 Mg Capsule]) 1 each PO Q12HR [facility] Non-Formulary Medication (Rosuvastatin) 5 mg PO BEDTIME PIPPA Last Admin: 05/28/19 20:19 Dose: Not Given Ondansetron HCl (Zofran) Confirm Administered Dose 4 mg .ROUTE .STK-MED ONE Stop: 05/28/19 14:23 Last Admin: 05/28/19 14:31 Dose: Not Given Ondansetron HCl (Zofran) 4 mg IVPUSH ONETIME ONE Stop: 05/28/19 14:32 Last Admin: 05/28/19 15:05 Dose: 4 mg Ondansetron HCl (Zofran) 4 mg IVPUSH ONETIME ONE Stop: 05/28/19 23:40 Last Admin: 05/28/19 23:48 Dose: 4 mg Ondansetron HCl (Zofran) 4 mg IVPUSH ONETIME ONE Stop: 05/29/19 03:37 Last Admin: 05/29/19 03:42 Dose: 4 mg Potassium Chloride (Potassium Chloride) 40 meq PO ONETIME ONE Stop: 05/28/19 20:01 Last Admin: 05/28/19 21:06 Dose: Not Given - Exam General: Alert, Oriented, Cooperative, Mild Distress Lungs: Clear to Auscultation, Normal Respiratory Effort Cardiovascular: Regular Rhythm, Tachycardia GI/Abdominal Exam: Normal Bowel Sounds, Soft, Non-Tender, No Distention Extremities: Normal Inspection, No Pedal Edema - Problem List Review Problem List Initiated/Reviewed/Updated: Yes - My Orders Last 24 Hours: My Active Orders 05/28/19 16:56 Oxygen Therapy [RC] PRN Up ad [place] [RC] ASDIRECTED VTE/DVT Education [RC] DAILY Vital Signs [RC] Q1H Ondansetron [Zofran ODT] 4 mg PO Q4H PRN Sequential Compression Device [OM.PC] Per Unit Routine Resuscitation Status Routine 05/28/19 16:57 Antiembolic Devices [RC] Q12H 05/28/19 16:59 LORazepam [Ativan] 1 mg PO TID PRN 05/28/19 17:32 Consult to Physician [CONS] Stat 05/28/19 17:33 Notify Provider Consults [RC] ASDIRECTED 05/28/19 21:00 tiZANidine [Zanaflex] 4 mg PO BID 05/28/19 23:48 Rosuvastatin [Crestor] 5 mg PO BEDTIME 05/29/19 07:30 Levothyroxine 112 mcg PO ACBREAKFAST 05/29/19 09:00 FLUoxetine [PROzac] 40 mg PO DAILY 05/29/19 10:00 Dextrose 5%-0.45% NaCl [Dextrose 5%-1/2 NS] 1,000 ml IV ASDIRECTED 05/29/19 18:30 BASIC METABOLIC PANEL,BMP [CHEM] Q4H 05/29/19 22:30 BASIC METABOLIC PANEL,BMP [CHEM] Q4H 05/30/19 02:30 BASIC METABOLIC PANEL,BMP [CHEM] Q4H 05/30/19 06:30 BASIC METABOLIC PANEL,BMP [CHEM] Q4H 05/30/19 10:30 BASIC METABOLIC PANEL,BMP [CHEM] Q4H 05/30/19 14:30 BASIC METABOLIC PANEL,BMP [CHEM] Q4H - Plan Plan:: Assessment: 1. Diabetic ketoacidosis. 2. Hypomagnesemia. 3. Hypocalcemia. 4. Hypophosphatemia. Plan: 1. For DKA, continue management per DKA protocol. Patient remains on insulin drip. Started on D5W 1/2 NS with 20 mEq KCl this morning. Continue BMP q4h. Anion gap improved. Will continue with electrolyte replacement. eICU notes reviewed. <Mirella Warren - Last Filed: 05/29/19 20:16> - Patient Data Vitals - Most Recent: Last Vital Signs Temp 37.3 C 05/29/19 18:00 Pulse 105 H 05/29/19 15:00 Resp 21 H 05/29/19 18:00 BP 124/76 05/29/19 18:00 Pulse Ox 98 05/29/19 18:00 I&O - Last 24 Hours: Intake & Output 05/29/19 05/29/19 05/29/19 06:59 14:59 22:59 Intake Total 2505 150 2439 Output Total 1550 650 Balance 955 -500 2439 Lab Results Last 24 Hours: Laboratory Results - last 24 hr 05/28/19 05/28/19 05/28/19 Range/Units 19:21 19:39 20:15 WBC (4.0-11.0) K/uL RBC (4.30-5.90) M/uL Hgb (12.0-16.0) g/dL Hct (36.0-46.0) % MCV (80.0-98.0) fL MCH (27.0-32.0) pg MCHC (31.0-37.0) g/dL RDW Std Deviation (28.0-62.0) fl RDW Coeff of Zak (11.0-15.0) % Plt Count (150-400) K/uL MPV (7.40-12.00) fL Neut % (Auto) (48.0-80.0) % Lymph % (Auto) (16.0-40.0) % [place] % (Auto) (0.0-15.0) % Eos % (Auto) (0.0-7.0) % Baso % (Auto) (0.0-1.5) % Neut # (Auto) (1.4-5.7) K/uL Lymph # (Auto) (0.6-2.4) K/uL [place] # (Auto) (0.0-0.8) K/uL Eos # (Auto) (0.0-0.7) K/uL Baso # (Auto) (0.0-0.1) K/uL Nucleated RBC % /100WBC Nucleated RBCs # K/uL Sodium 147 H (136-145) mmol/L Potassium 3.1 L (3.5-5.1) mmol/L Chloride 111 H (98-107) mmol/L Carbon Dioxide 9.6 L (21.0-32.0) mmol/L BUN 13 (7.0-18.0) mg/dL Creatinine 1.2 H (0.6-1.0) mg/dL Est Cr Clr Drug Dosing 49.69 mL/min Estimated GFR (MDRD) 53.1 ml/min Glucose 190 H (74-106) mg/dL POC Glucose 193 H 195 H (60-110) mg/dL Calcium 8.4 L (8.5-10.1) mg/dL Phosphorus (2.6-4.7) mg/dL Magnesium (1.8-2.4) mg/dL 05/28/19 05/28/19 05/28/19 Range/Units 21:01 22:04 22:58 WBC (4.0-11.0) K/uL RBC (4.30-5.90) M/uL Hgb (12.0-16.0) g/dL Hct (36.0-46.0) % MCV (80.0-98.0) fL MCH (27.0-32.0) pg MCHC (31.0-37.0) g/dL RDW Std Deviation (28.0-62.0) fl RDW Coeff of Zak (11.0-15.0) % Plt Count (150-400) K/uL MPV (7.40-12.00) fL Neut % (Auto) (48.0-80.0) % Lymph % (Auto) (16.0-40.0) % [place] % (Auto) (0.0-15.0) % Eos % (Auto) (0.0-7.0) % Baso % (Auto) (0.0-1.5) % Neut # (Auto) (1.4-5.7) K/uL Lymph # (Auto) (0.6-2.4) K/uL [place] # (Auto) (0.0-0.8) K/uL Eos # (Auto) (0.0-0.7) K/uL Baso # (Auto) (0.0-0.1) K/uL Nucleated RBC % /100WBC Nucleated RBCs # K/uL Sodium (136-145) mmol/L Potassium (3.5-5.1) mmol/L Chloride (98-107) mmol/L Carbon Dioxide (21.0-32.0) mmol/L BUN (7.0-18.0) mg/dL Creatinine (0.6-1.0) mg/dL Est Cr Clr Drug Dosing mL/min Estimated GFR (MDRD) ml/min Glucose (74-106) mg/dL POC Glucose 155 H 164 H 187 H (60-110) mg/dL Calcium (8.5-10.1) mg/dL Phosphorus (2.6-4.7) mg/dL Magnesium (1.8-2.4) mg/dL 05/28/19 05/29/19 05/29/19 Range/Units 22:59 00:02 01:02 WBC (4.0-11.0) K/uL RBC (4.30-5.90) M/uL Hgb (12.0-16.0) g/dL Hct (36.0-46.0) % MCV (80.0-98.0) fL MCH (27.0-32.0) pg MCHC (31.0-37.0) g/dL RDW Std Deviation (28.0-62.0) fl RDW Coeff of Zak (11.0-15.0) % Plt Count (150-400) K/uL MPV (7.40-12.00) fL Neut % (Auto) (48.0-80.0) % Lymph % (Auto) (16.0-40.0) % [place] % (Auto) (0.0-15.0) % Eos % (Auto) (0.0-7.0) % Baso % (Auto) (0.0-1.5) % Neut # (Auto) (1.4-5.7) K/uL Lymph # (Auto) (0.6-2.4) K/uL [place] # (Auto) (0.0-0.8) K/uL Eos # (Auto) (0.0-0.7) K/uL Baso # (Auto) (0.0-0.1) K/uL Nucleated RBC % /100WBC Nucleated RBCs # K/uL Sodium 148 H (136-145) mmol/L Potassium 2.3 L* (3.5-5.1) mmol/L Chloride 113 H (98-107) mmol/L Carbon Dioxide 17.5 L (21.0-32.0) mmol/L BUN 8 (7.0-18.0) mg/dL Creatinine 1.0 (0.6-1.0) mg/dL Est Cr Clr Drug Dosing 59.62 mL/min Estimated GFR (MDRD) > 60.0 ml/min Glucose 168 H (74-106) mg/dL POC Glucose 163 H 182 H (60-110) mg/dL Calcium 6.8 L (8.5-10.1) mg/dL Phosphorus (2.6-4.7) mg/dL Magnesium (1.8-2.4) mg/dL 05/29/19 05/29/19 05/29/19 Range/Units 01:49 02:30 02:57 WBC (4.0-11.0) K/uL RBC (4.30-5.90) M/uL Hgb (12.0-16.0) g/dL Hct (36.0-46.0) % MCV (80.0-98.0) fL MCH (27.0-32.0) pg MCHC (31.0-37.0) g/dL RDW Std Deviation (28.0-62.0) fl RDW Coeff of Zak (11.0-15.0) % Plt Count (150-400) K/uL MPV (7.40-12.00) fL Neut % (Auto) (48.0-80.0) % Lymph % (Auto) (16.0-40.0) % [place] % (Auto) (0.0-15.0) % Eos % (Auto) (0.0-7.0) % Baso % (Auto) (0.0-1.5) % Neut # (Auto) (1.4-5.7) K/uL Lymph # (Auto) (0.6-2.4) K/uL [place] # (Auto) (0.0-0.8) K/uL Eos # (Auto) (0.0-0.7) K/uL Baso # (Auto) (0.0-0.1) K/uL Nucleated RBC % /100WBC Nucleated RBCs # K/uL Sodium 149 H (136-145) mmol/L Potassium 2.7 L (3.5-5.1) mmol/L Chloride 114 H (98-107) mmol/L Carbon Dioxide 19.4 L (21.0-32.0) mmol/L BUN 6 L (7.0-18.0) mg/dL Creatinine 1.0 (0.6-1.0) mg/dL Est Cr Clr Drug Dosing 59.62 mL/min Estimated GFR (MDRD) > 60.0 ml/min Glucose 165 H (74-106) mg/dL POC Glucose 177 H 180 H (60-110) mg/dL Calcium 6.7 L (8.5-10.1) mg/dL Phosphorus (2.6-4.7) mg/dL Magnesium (1.8-2.4) mg/dL 05/29/19 05/29/19 05/29/19 Range/Units 04:02 05:03 06:20 WBC (4.0-11.0) K/uL RBC (4.30-5.90) M/uL Hgb (12.0-16.0) g/dL Hct (36.0-46.0) % MCV (80.0-98.0) fL MCH (27.0-32.0) pg MCHC (31.0-37.0) g/dL RDW Std Deviation (28.0-62.0) fl RDW Coeff of Zak (11.0-15.0) % Plt Count (150-400) K/uL MPV (7.40-12.00) fL Neut % (Auto) (48.0-80.0) % Lymph % (Auto) (16.0-40.0) % [place] % (Auto) (0.0-15.0) % Eos % (Auto) (0.0-7.0) % Baso % (Auto) (0.0-1.5) % Neut # (Auto) (1.4-5.7) K/uL Lymph # (Auto) (0.6-2.4) K/uL [place] # (Auto) (0.0-0.8) K/uL Eos # (Auto) (0.0-0.7) K/uL Baso # (Auto) (0.0-0.1) K/uL Nucleated RBC % /100WBC Nucleated RBCs # K/uL Sodium (136-145) mmol/L Potassium (3.5-5.1) mmol/L Chloride (98-107) mmol/L Carbon Dioxide (21.0-32.0) mmol/L BUN (7.0-18.0) mg/dL Creatinine (0.6-1.0) mg/dL Est Cr Clr Drug Dosing mL/min Estimated GFR (MDRD) ml/min Glucose (74-106) mg/dL POC Glucose 179 H 177 H 182 H (60-110) mg/dL Calcium (8.5-10.1) mg/dL Phosphorus (2.6-4.7) mg/dL Magnesium (1.8-2.4) mg/dL 05/29/19 05/29/19 05/29/19 Range/Units 07:17 07:18 07:18 WBC 11.63 H (4.0-11.0) K/uL RBC 3.66 L (4.30-5.90) M/uL Hgb 9.6 L (12.0-16.0) g/dL Hct 30.4 L (36.0-46.0) % MCV 83.1 (80.0-98.0) fL MCH 26.2 L (27.0-32.0) pg MCHC 31.6 (31.0-37.0) g/dL RDW Std Deviation 52.4 (28.0-62.0) fl RDW Coeff of Zak 17 H (11.0-15.0) % Plt Count 402 H (150-400) K/uL MPV 9.40 (7.40-12.00) fL Neut % (Auto) 67.4 (48.0-80.0) % Lymph % (Auto) 23.6 (16.0-40.0) % [place] % (Auto) 8.8 (0.0-15.0) % Eos % (Auto) 0.0 (0.0-7.0) % Baso % (Auto) 0.2 (0.0-1.5) % Neut # (Auto) 7.8 H (1.4-5.7) K/uL Lymph # (Auto) 2.8 H (0.6-2.4) K/uL [place] # (Auto) 1.0 H (0.0-0.8) K/uL Eos # (Auto) 0.0 (0.0-0.7) K/uL Baso # (Auto) 0.0 (0.0-0.1) K/uL Nucleated RBC % 0.0 /100WBC Nucleated RBCs # 0 K/uL Sodium 147 H (136-145) mmol/L Potassium 2.9 L (3.5-5.1) mmol/L Chloride 113 H (98-107) mmol/L Carbon Dioxide 19.2 L (21.0-32.0) mmol/L BUN 4 L (7.0-18.0) mg/dL Creatinine 0.9 (0.6-1.0) mg/dL Est Cr Clr Drug Dosing 66.25 mL/min Estimated GFR (MDRD) > 60.0 ml/min Glucose 149 H (74-106) mg/dL POC Glucose 156 H (60-110) mg/dL Calcium 6.8 L (8.5-10.1) mg/dL Phosphorus (2.6-4.7) mg/dL Magnesium (1.8-2.4) mg/dL 05/29/19 05/29/19 05/29/19 Range/Units 07:18 07:18 08:14 WBC (4.0-11.0) K/uL RBC (4.30-5.90) M/uL Hgb (12.0-16.0) g/dL Hct (36.0-46.0) % MCV (80.0-98.0) fL MCH (27.0-32.0) pg MCHC (31.0-37.0) g/dL RDW Std Deviation (28.0-62.0) fl RDW Coeff of Zak (11.0-15.0) % Plt Count (150-400) K/uL MPV (7.40-12.00) fL Neut % (Auto) (48.0-80.0) % Lymph % (Auto) (16.0-40.0) % [place] % (Auto) (0.0-15.0) % Eos % (Auto) (0.0-7.0) % Baso % (Auto) (0.0-1.5) % Neut # (Auto) (1.4-5.7) K/uL Lymph # (Auto) (0.6-2.4) K/uL [place] # (Auto) (0.0-0.8) K/uL Eos # (Auto) (0.0-0.7) K/uL Baso # (Auto) (0.0-0.1) K/uL Nucleated RBC % /100WBC Nucleated RBCs # K/uL Sodium (136-145) mmol/L Potassium (3.5-5.1) mmol/L Chloride (98-107) mmol/L Carbon Dioxide (21.0-32.0) mmol/L BUN (7.0-18.0) mg/dL Creatinine (0.6-1.0) mg/dL Est Cr Clr Drug Dosing mL/min Estimated GFR (MDRD) ml/min Glucose (74-106) mg/dL POC Glucose 116 H (60-110) mg/dL Calcium (8.5-10.1) mg/dL Phosphorus 1.3 L (2.6-4.7) mg/dL Magnesium 1.7 L (1.8-2.4) mg/dL 05/29/19 05/29/19 05/29/19 Range/Units 09:05 10:07 11:40 WBC (4.0-11.0) K/uL RBC (4.30-5.90) M/uL Hgb (12.0-16.0) g/dL Hct (36.0-46.0) % MCV (80.0-98.0) fL MCH (27.0-32.0) pg MCHC (31.0-37.0) g/dL RDW Std Deviation (28.0-62.0) fl RDW Coeff of Zak (11.0-15.0) % Plt Count (150-400) K/uL MPV (7.40-12.00) fL Neut % (Auto) (48.0-80.0) % Lymph % (Auto) (16.0-40.0) % [place] % (Auto) (0.0-15.0) % Eos % (Auto) (0.0-7.0) % Baso % (Auto) (0.0-1.5) % Neut # (Auto) (1.4-5.7) K/uL Lymph # (Auto) (0.6-2.4) K/uL [place] # (Auto) (0.0-0.8) K/uL Eos # (Auto) (0.0-0.7) K/uL Baso # (Auto) (0.0-0.1) K/uL Nucleated RBC % /100WBC Nucleated RBCs # K/uL Sodium (136-145) mmol/L Potassium (3.5-5.1) mmol/L Chloride (98-107) mmol/L Carbon Dioxide (21.0-32.0) mmol/L BUN (7.0-18.0) mg/dL Creatinine (0.6-1.0) mg/dL Est Cr Clr Drug Dosing mL/min Estimated GFR (MDRD) ml/min Glucose (74-106) mg/dL POC Glucose 189 H 215 H 140 H (60-110) mg/dL Calcium (8.5-10.1) mg/dL Phosphorus (2.6-4.7) mg/dL Magnesium (1.8-2.4) mg/dL 05/29/19 05/29/19 05/29/19 Range/Units 12:08 13:10 14:33 WBC (4.0-11.0) K/uL RBC (4.30-5.90) M/uL Hgb (12.0-16.0) g/dL Hct (36.0-46.0) % MCV (80.0-98.0) fL MCH (27.0-32.0) pg MCHC (31.0-37.0) g/dL RDW Std Deviation (28.0-62.0) fl RDW Coeff of Zak (11.0-15.0) % Plt Count (150-400) K/uL MPV (7.40-12.00) fL Neut % (Auto) (48.0-80.0) % Lymph % (Auto) (16.0-40.0) % [place] % (Auto) (0.0-15.0) % Eos % (Auto) (0.0-7.0) % Baso % (Auto) (0.0-1.5) % Neut # (Auto) (1.4-5.7) K/uL Lymph # (Auto) (0.6-2.4) K/uL [place] # (Auto) (0.0-0.8) K/uL Eos # (Auto) (0.0-0.7) K/uL Baso # (Auto) (0.0-0.1) K/uL Nucleated RBC % /100WBC Nucleated RBCs # K/uL Sodium 143 (136-145) mmol/L Potassium 2.9 L (3.5-5.1) mmol/L Chloride 108 H (98-107) mmol/L Carbon Dioxide 19.6 L (21.0-32.0) mmol/L BUN 3 L (7.0-18.0) mg/dL Creatinine 0.8 (0.6-1.0) mg/dL Est Cr Clr Drug Dosing 74.53 mL/min Estimated GFR (MDRD) > 60.0 ml/min Glucose 141 H (74-106) mg/dL POC Glucose 136 H 215 H (60-110) mg/dL Calcium 7.9 L (8.5-10.1) mg/dL Phosphorus (2.6-4.7) mg/dL Magnesium (1.8-2.4) mg/dL 05/29/19 05/29/19 05/29/19 Range/Units 14:33 15:05 16:05 WBC (4.0-11.0) K/uL RBC (4.30-5.90) M/uL Hgb 10.3 L (12.0-16.0) g/dL Hct 32.3 L (36.0-46.0) % MCV (80.0-98.0) fL MCH (27.0-32.0) pg MCHC (31.0-37.0) g/dL RDW Std Deviation (28.0-62.0) fl RDW Coeff of Zak (11.0-15.0) % Plt Count (150-400) K/uL MPV (7.40-12.00) fL Neut % (Auto) (48.0-80.0) % Lymph % (Auto) (16.0-40.0) % [place] % (Auto) (0.0-15.0) % Eos % (Auto) (0.0-7.0) % Baso % (Auto) (0.0-1.5) % Neut # (Auto) (1.4-5.7) K/uL Lymph # (Auto) (0.6-2.4) K/uL [place] # (Auto) (0.0-0.8) K/uL Eos # (Auto) (0.0-0.7) K/uL Baso # (Auto) (0.0-0.1) K/uL Nucleated RBC % /100WBC Nucleated RBCs # K/uL Sodium (136-145) mmol/L Potassium (3.5-5.1) mmol/L Chloride (98-107) mmol/L Carbon Dioxide (21.0-32.0) mmol/L BUN (7.0-18.0) mg/dL Creatinine (0.6-1.0) mg/dL Est Cr Clr Drug Dosing mL/min Estimated GFR (MDRD) ml/min Glucose (74-106) mg/dL POC Glucose 130 H 158 H (60-110) mg/dL Calcium (8.5-10.1) mg/dL Phosphorus (2.6-4.7) mg/dL Magnesium (1.8-2.4) mg/dL 05/29/19 05/29/19 05/29/19 Range/Units 17:08 18:12 18:33 WBC (4.0-11.0) K/uL RBC (4.30-5.90) M/uL Hgb (12.0-16.0) g/dL Hct (36.0-46.0) % MCV (80.0-98.0) fL MCH (27.0-32.0) pg MCHC (31.0-37.0) g/dL RDW Std Deviation (28.0-62.0) fl RDW Coeff of Zak (11.0-15.0) % Plt Count (150-400) K/uL MPV (7.40-12.00) fL Neut % (Auto) (48.0-80.0) % Lymph % (Auto) (16.0-40.0) % [place] % (Auto) (0.0-15.0) % Eos % (Auto) (0.0-7.0) % Baso % (Auto) (0.0-1.5) % Neut # (Auto) (1.4-5.7) K/uL Lymph # (Auto) (0.6-2.4) K/uL [place] # (Auto) (0.0-0.8) K/uL Eos # (Auto) (0.0-0.7) K/uL Baso # (Auto) (0.0-0.1) K/uL Nucleated RBC % /100WBC Nucleated RBCs # K/uL Sodium 141 (136-145) mmol/L Potassium 3.4 L (3.5-5.1) mmol/L Chloride 107 (98-107) mmol/L Carbon Dioxide 20.5 L (21.0-32.0) mmol/L BUN 2 L (7.0-18.0) mg/dL Creatinine 0.7 (0.6-1.0) mg/dL Est Cr Clr Drug Dosing 85.18 mL/min Estimated GFR (MDRD) > 60.0 ml/min Glucose 154 H (74-106) mg/dL POC Glucose 186 H 138 H (60-110) mg/dL Calcium 7.6 L (8.5-10.1) mg/dL Phosphorus (2.6-4.7) mg/dL Magnesium (1.8-2.4) mg/dL Med Orders - Current: Current Medications Fluoxetine HCl (Prozac) 40 mg PO DAILY PIPPA Last Admin: 05/29/19 08:55 Dose: 40 mg Insulin Human Regular 100 unit (/ Sodium Chloride) 100 mls @ 5 mls/hr IV TITRATE PIPPA; Protocol Last Titration: 05/29/19 18:14 Dose: 1 unit/hr, 1 mls/hr Sodium Chloride (Normal Saline) 1,000 mls @ 999 mls/hr IV ASDIRECTED PIPPA Stop: 05/29/19 21:01 Last Admin: 05/28/19 22:14 Dose: 999 mls/hr Levetiracetam 500 mg/ Dextrose (/Water) 105 mls @ 420 mls/hr IV Q12H PIPPA Last Admin: 05/29/19 09:03 Dose: 420 mls/hr Potassium Chloride/Dextrose/Sod Cl (D5 1/2 Ns W/ 20 Meq/L Kcl) 1,000 mls @ 100 mls/hr IV ASDIRECTED PIPPA Potassium Chloride (Kcl 40 Meq In Water 100 Ml) 100 mls @ 25 mls/hr IV ONETIME ONE Stop: 05/30/19 00:14 Levothyroxine Sodium (Levothyroxine) 112 mcg PO ACBREAKFAST PIPPA Last Admin: 05/29/19 08:00 Dose: 112 mcg Levothyroxine Sodium (Levothyroxine) 25 mcg PO ACBREAKFAST PIPPA Last Admin: 05/29/19 08:00 Dose: 25 mcg Lorazepam (Ativan) 1 mg PO TID PRN PRN Reason: Anxiety Last Admin: 05/29/19 12:00 Dose: 1 mg Morphine Sulfate (Morphine) 2 mg IVPUSH Q4H PRN PRN Reason: Pain Last Admin: 05/29/19 16:57 Dose: 2 mg Ondansetron HCl (Zofran Odt) 4 mg PO Q4H PRN PRN Reason: nausea, able to take PO Last Admin: 05/29/19 16:06 Dose: 4 mg Rosuvastatin Calcium (Crestor) 5 mg PO BEDTIME PIPPA Tizanidine HCl (Zanaflex) 4 mg PO BID PIPPA Last Admin: 05/29/19 08:47 Dose: 4 mg Discontinued Medications Calcium Gluconate (Calcium Gluconate) 2 gm IV ONETIME ONE Stop: 05/29/19 10:24 Last Admin: 05/29/19 10:57 Dose: 2 gm Sodium Chloride (Normal Saline) 1,000 mls @ 999 mls/hr IV BOLUS ONE Stop: 05/28/19 15:27 Last Admin: 05/28/19 15:05 Dose: 999 mls/hr Sodium Chloride (Normal Saline) 1,000 mls @ 999 mls/hr IV STAT ONE Stop: 05/28/19 16:59 Last Admin: 05/28/19 16:18 Dose: 999 mls/hr Potassium Chloride 20 meq/ (Premix) 50 mls @ 25 mls/hr IV ONETIME STA Stop: 05/28/19 19:03 Last Admin: 05/28/19 19:51 Dose: Not Given Potassium Chloride/Sodium Chloride (Normal Saline With 20 Meq Kcl) 1,000 mls @ 999 mls/hr IV ASDIRECTED [facility] Magnesium Sulfate 2 gm/ Premix 50 mls @ 25 mls/hr IV ONETIME ONE Stop: 05/28/19 19:17 Last Admin: 05/28/19 18:45 Dose: 25 mls/hr Potassium Chloride/Sodium Chloride (Normal Saline With 20 Meq Kcl) 1,000 mls @ 999 mls/hr IV ASDIRECTED PIPPA Dextrose/Sodium Chloride (Dextrose 5%-Normal Saline) 1,000 mls @ 125 mls/hr IV ASDIRECTED [facility] Last Admin: 05/29/19 03:42 Dose: 125 mls/hr Sodium Phosphate 30 mmole/ (Sodium Chloride) 260 mls @ 86 mls/hr IV ONETIME ONE Stop: 05/28/19 23:16 Last Admin: 05/28/19 21:20 Dose: 86 mls/hr Potassium Chloride 40 meq/ (Premix) 100 mls @ 50 mls/hr IV ONETIME ONE Stop: 05/29/19 01:33 Last Admin: 05/28/19 23:50 Dose: 50 mls/hr Potassium Chloride 40 meq/ (Premix) 100 mls @ 25 mls/hr IV ONETIME ONE Stop: 05/29/19 07:35 Last Admin: 05/29/19 03:42 Dose: 25 mls/hr Dextrose/Sodium Chloride (Dextrose 5%-1/2 Ns) 1,000 mls @ 125 mls/hr IV ASDIRECTED [facility] Last Admin: 05/29/19 10:24 Dose: 125 mls/hr Potassium Chloride 20 meq/ (Premix) 50 mls @ 25 mls/hr IV ONETIME ONE Stop: 05/29/19 12:59 Last Admin: 05/29/19 11:36 Dose: 25 mls/hr Magnesium Sulfate 2 gm/ Premix 50 mls @ 50 mls/hr IV ONETIME ONE Stop: 05/29/19 11:24 Last Admin: 05/29/19 11:17 Dose: 50 mls/hr Potassium Phosphate 15 mmole/ (Sodium Chloride) 255 mls @ 85 mls/hr IV ONETIME ONE Stop: 05/29/19 15:59 Last Admin: 05/29/19 12:59 Dose: 85 mls/hr Potassium Chloride 20 meq/ (Premix) 50 mls @ 25 mls/hr IV ONETIME ONE Stop: 05/29/19 17:48 Last Admin: 05/29/19 16:48 Dose: 25 mls/hr Ketorolac Tromethamine (Toradol) 30 mg IVPUSH ONETIME ONE Stop: 05/28/19 14:40 Last Admin: 05/28/19 15:05 Dose: Not Given Levetiracetam (Keppra) 500 mg PO BID PIPPA Morphine Sulfate (Morphine) 2 mg IVPUSH ONETIME ONE Stop: 05/28/19 15:44 Last Admin: 05/28/19 15:55 Dose: Not Given Morphine Sulfate (Morphine) 15 mg PO Q4H PRN PRN Reason: Pain Last Admin: 05/28/19 18:43 Dose: 15 mg Non-Formulary Medication (Levothyroxine) 137 mcg PO ACBREAKFAST PIPPA Non-Formulary Medication (Morphine Sulfate/Naltrexone [Embeda Er 60-2.4 Mg Capsule]) 1 each PO Q12HR PIPPA Non-Formulary Medication (Rosuvastatin) 5 mg PO BEDTIME PIPPA Last Admin: 05/28/19 20:19 Dose: Not Given Ondansetron HCl (Zofran) Confirm Administered Dose 4 mg .ROUTE .STK-MED ONE Stop: 05/28/19 14:23 Last Admin: 05/28/19 14:31 Dose: Not Given Ondansetron HCl (Zofran) 4 mg IVPUSH ONETIME ONE Stop: 05/28/19 14:32 Last Admin: 05/28/19 15:05 Dose: 4 mg Ondansetron HCl (Zofran) 4 mg IVPUSH ONETIME ONE Stop: 05/28/19 23:40 Last Admin: 05/28/19 23:48 Dose: 4 mg Ondansetron HCl (Zofran) 4 mg IVPUSH ONETIME ONE Stop: 05/29/19 03:37 Last Admin: 05/29/19 03:42 Dose: 4 mg Potassium Chloride (Potassium Chloride) 40 meq PO ONETIME ONE Stop: 05/28/19 20:01 Last Admin: 05/28/19 21:06 Dose: Not Given - My Orders Last 24 Hours: My Active Orders 05/28/19 19:58 Morphine 2 mg IVPUSH Q4H PRN 05/28/19 20:00 Sodium Chloride 0.9% [Normal Saline] 1,000 ml IV ASDIRECTED levETIRAcetam [Keppra] 500 mg Dextrose 5% in Water 100 ml IV Q12H 05/29/19 07:30 Levothyroxine 25 mcg PO ACBREAKFAST - Plan Plan:: I have seen and evaluated the patient and agree with the residents note unless specified in my note
[2019-05-29 18:55] LABS: BLOOD UREA NITROGEN,BUN 2 mg/dL (7.0-18.0); CARBON DIOXIDE,CO2 20.5 mmol/L (21.0-32.0); CHLORIDE,CL 107 mmol/L (98-107); GLUCOSE RANDOM 154 mg/dL (74-106); POTASSIUM,K 3.4 mmol/L (3.5-5.1); SODIUM,NA 141 mmol/L (136-145)
[2019-05-29] MEDS ORDERED: Potassium Chloride Riders 20 MEQ in Premix Bag 2 BAG IV ONE (19:45)
--- NOTE | 2019-05-29 19:47 | PN ---
THC Physician - Brief Progress [id number]/28/2019 19:46[facility] Kavon Gordon, [place] - MWN (JAMEY) - MWN ICUD ALEXSANDER DUMONTDate of Service 05/29/2019 19:46HPI/Events of Note K+ low, give KCL 40meq IV x 1 and change IVF to D51/2NS + 20meq KCL at 100ml/hr.Intervention s Intermediate-Communication with other healthcare providers and/or family, Diagnostic test evaluatio n, Electrolyte abnormality - evaluation and management, Hyperglycemia - evaluation and treatmentElect ronically Signed by: TITA SAHU) on 05/29/2019 19:47
[2019-05-29] MEDS ORDERED: Potassium Chloride Riders 100 ML IV ONE (20:15)
[2019-05-29] MEDS: Rosuvastatin 10 MG Tab PO SCH (20:28)
[2019-05-29] MEDS: D5 1/2 NS w/ 20 mEq/L KCl 1,000 ML IV SCH (20:34)
[2019-05-29 23:25] LABS: BLOOD UREA NITROGEN,BUN 2 mg/dL (7.0-18.0); CHLORIDE,CL 106 mmol/L (98-107); GLUCOSE RANDOM 159 mg/dL (74-106); POTASSIUM,K 3.3 mmol/L (3.5-5.1); SODIUM,NA 142 mmol/L (136-145)
[2019-05-30] MEDS ORDERED: Potassium Chloride Riders 40 MEQ in Premix Bag 1 BAG IV ONE (00:30)
[2019-05-30] MEDS ORDERED: diphenhydrAMINE 50 MG/ML SDV IVPUSH ONE (00:36)
--- NOTE | 2019-05-30 00:38 | PN ---
THC Physician - Brief Progress [id number]/29/2019 00:32[facility] Kavon Gordon, [place] - EDILSONN (JAMEY) - MWN ICUD ALEXSANDER DUMONTDate of Service 05/30/2019 00:32HPI/Events of Note K 3.3Complains of generalised itching ,no rash seencomplains of nauseaplan:potassium chllori de 40 eg IVPB over 120 minutes via central line onceIV diphenhydramine 25 mg onceIV zofran 4 mg onceI nterventions Major-Electrolyte abnormality - evaluation and managementMinor-Routine modifications to care plan (e.g. PRN medications for pain, fever)
[2019-05-30] MEDS ORDERED: Ondansetron 4 MG/2 ML SDV IVPUSH ONE (00:41)
[2019-05-30] MEDS: Morphine 2 MG/ML Syringe IVPUSH PRN ×6 (01:05→23:57)
[2019-05-30 02:54] LABS: BLOOD UREA NITROGEN,BUN 1 mg/dL (7.0-18.0); CARBON DIOXIDE,CO2 25.6 mmol/L (21.0-32.0); CHLORIDE,CL 106 mmol/L (98-107); GLUCOSE RANDOM 170 mg/dL (74-106); SODIUM,NA 142 mmol/L (136-145)
[2019-05-30] MEDS: Ondansetron 4 MG Tab.DIS PO PRN ×2 (05:00→18:35)
[2019-05-30] MEDS: D5 1/2 NS w/ 20 mEq/L KCl 1,000 ML IV SCH (06:32)
[2019-05-30 07:05] LABS: BLOOD UREA NITROGEN,BUN 1 mg/dL (7.0-18.0); CARBON DIOXIDE,CO2 22.1 mmol/L (21.0-32.0); CHLORIDE,CL 107 mmol/L (98-107); GLUCOSE RANDOM 147 mg/dL (74-106); POTASSIUM,K 3.7 mmol/L (3.5-5.1); SODIUM,NA 141 mmol/L (136-145)
[2019-05-30] MEDS: Levothyroxine 25 MCG Tab PO SCH (07:45)
[2019-05-30] MEDS: Levothyroxine 112 MCG Tab PO SCH (07:45)
[2019-05-30] MEDS: tiZANidine 4 MG Tab PO SCH ×2 (08:46→20:40)
[2019-05-30] MEDS ORDERED: Sodium Phosphate 15 mMole/5 ML SDV IV STA (08:54)
--- NOTE | 2019-05-30 09:00 | PN ---
THC Physician - Brief Progress [id number]/29/2019 08:56[facility] Kavon Gordon, [place] - [facility] - MWN ICUD ALEXSANDER DUMONTDate of Service 05/30/2019 08:56HPI/Events of Note eICU Progress [id number] F admitted with DKA, now gap closed. Seen on camera, comfortable. D iscussed with bedside nurse and reviewed notes in the EMR. eICU Recommendations:1. Stop IVF and sta rt ADA diet.2. Check BS Q1hrs, titrate off insulin drip. Give Lantus 10 units SC x 1, then start Q4 hrs insulin SS.3. Give NaPhos 40mmol IV x 1, check renal panel and magnesium at 2100. 4. Continue c iprofloxacin and Flagyl, deescalate if cultures negatie.5. SCDs for DVT prophylaxis.Thank you for al lowing us to participate in the care of your patient.Interventions Intermediate-Communication with ot her healthcare providers and/or family, Diagnostic test evaluation, Hyperglycemia - evaluation and tr eatment, Medication change / dose adjustmentElectronically Signed by: TITA SAHU) on 2018 08:59
[2019-05-30] MEDS: FLUoxetine 20 MG Cap PO SCH (09:05)
[2019-05-30] MEDS: Insulin Glargine,Human Rec. Analog 100 Units/ML 3 ML Pen SUBCUT SCH (09:09)
[2019-05-30] MEDS ORDERED: Sodium Phosphate 40 MMOLE in Sodium Chloride 0.9% 250 ML IV ONE (09:45)
[2019-05-30] MEDS ORDERED: Promethazine 25 MG Tab PO ONE (10:09)
[2019-05-30 10:54] LABS: BLOOD UREA NITROGEN,BUN 2 mg/dL (7.0-18.0); CARBON DIOXIDE,CO2 20.8 mmol/L (21.0-32.0); CHLORIDE,CL 104 mmol/L (98-107); GLUCOSE RANDOM 364 mg/dL (74-106); POTASSIUM,K 3.9 mmol/L (3.5-5.1); SODIUM,NA 137 mmol/L (136-145)
[2019-05-30] MEDS: Insulin Aspart 100 Units/ML 3 ML Pen SUBCUT SCH ×3 (12:09→20:00)
--- NOTE | 2019-05-30 12:13 | PCM.PN ---
<Shayan Pollard M - Last Filed: 05/30/19 12:13> - General Info Date of Service: 05/30/19 Subjective Update: Patient complains of nausea and vomiting last night. Has been urinating. - Patient Data Vitals - Most Recent: Last Vital Signs Temp 99.0 F 05/30/19 10:00 Pulse 105 H 05/29/19 15:00 Resp 26 H 05/30/19 11:00 BP 96/57 L 05/30/19 11:00 Pulse Ox 97 05/30/19 11:00 Weight - Most Recent: 50.6 kg I&O - Last 24 Hours: Intake & Output 05/29/19 05/30/19 05/30/19 22:59 06:59 14:59 Intake Total 2965 1486 720 Output Total 3050 1050 Balance 2965 -1564 -330 Lab Results Last 24 Hours: Laboratory Results - last 24 hr 05/29/19 05/29/19 05/29/19 Range/Units 12:08 13:10 14:33 WBC (4.0-11.0) K/uL RBC (4.30-5.90) M/uL Hgb (12.0-16.0) g/dL Hct (36.0-46.0) % MCV (80.0-98.0) fL MCH (27.0-32.0) pg MCHC (31.0-37.0) g/dL RDW Std Deviation (28.0-62.0) fl RDW Coeff of Zak (11.0-15.0) % Plt Count (150-400) K/uL MPV (7.40-12.00) fL Neut % (Auto) (48.0-80.0) % Lymph % (Auto) (16.0-40.0) % Kinney % (Auto) (0.0-15.0) % Eos % (Auto) (0.0-7.0) % Baso % (Auto) (0.0-1.5) % Neut # (Auto) (1.4-5.7) K/uL Lymph # (Auto) (0.6-2.4) K/uL Kinney # (Auto) (0.0-0.8) K/uL Eos # (Auto) (0.0-0.7) K/uL Baso # (Auto) (0.0-0.1) K/uL Nucleated RBC % /100WBC Nucleated RBCs # K/uL Sodium 143 (136-145) mmol/L Potassium 2.9 L (3.5-5.1) mmol/L Chloride 108 H (98-107) mmol/L Carbon Dioxide 19.6 L (21.0-32.0) mmol/L BUN 3 L (7.0-18.0) mg/dL Creatinine 0.8 (0.6-1.0) mg/dL Est Cr Clr Drug Dosing 74.53 mL/min Estimated GFR (MDRD) > 60.0 ml/min Glucose 141 H (74-106) mg/dL POC Glucose 136 H 215 H (60-110) mg/dL Calcium 7.9 L (8.5-10.1) mg/dL Phosphorus (2.6-4.7) mg/dL Magnesium (1.8-2.4) mg/dL 05/29/19 05/29/19 05/29/19 Range/Units 14:33 15:05 16:05 WBC (4.0-11.0) K/uL RBC (4.30-5.90) M/uL Hgb 10.3 L (12.0-16.0) g/dL Hct 32.3 L (36.0-46.0) % MCV (80.0-98.0) fL MCH (27.0-32.0) pg MCHC (31.0-37.0) g/dL RDW Std Deviation (28.0-62.0) fl RDW Coeff of Zak (11.0-15.0) % Plt Count (150-400) K/uL MPV (7.40-12.00) fL Neut % (Auto) (48.0-80.0) % Lymph % (Auto) (16.0-40.0) % Kinney % (Auto) (0.0-15.0) % Eos % (Auto) (0.0-7.0) % Baso % (Auto) (0.0-1.5) % Neut # (Auto) (1.4-5.7) K/uL Lymph # (Auto) (0.6-2.4) K/uL Kinney # (Auto) (0.0-0.8) K/uL Eos # (Auto) (0.0-0.7) K/uL Baso # (Auto) (0.0-0.1) K/uL Nucleated RBC % /100WBC Nucleated RBCs # K/uL Sodium (136-145) mmol/L Potassium (3.5-5.1) mmol/L Chloride (98-107) mmol/L Carbon Dioxide (21.0-32.0) mmol/L BUN (7.0-18.0) mg/dL Creatinine (0.6-1.0) mg/dL Est Cr Clr Drug Dosing mL/min Estimated GFR (MDRD) ml/min Glucose (74-106) mg/dL POC Glucose 130 H 158 H (60-110) mg/dL Calcium (8.5-10.1) mg/dL Phosphorus (2.6-4.7) mg/dL Magnesium (1.8-2.4) mg/dL 05/29/19 05/29/19 05/29/19 Range/Units 17:08 18:12 18:33 WBC (4.0-11.0) K/uL RBC (4.30-5.90) M/uL Hgb (12.0-16.0) g/dL Hct (36.0-46.0) % MCV (80.0-98.0) fL MCH (27.0-32.0) pg MCHC (31.0-37.0) g/dL RDW Std Deviation (28.0-62.0) fl RDW Coeff of Zak (11.0-15.0) % Plt Count (150-400) K/uL MPV (7.40-12.00) fL Neut % (Auto) (48.0-80.0) % Lymph % (Auto) (16.0-40.0) % Kinney % (Auto) (0.0-15.0) % Eos % (Auto) (0.0-7.0) % Baso % (Auto) (0.0-1.5) % Neut # (Auto) (1.4-5.7) K/uL Lymph # (Auto) (0.6-2.4) K/uL Kinney # (Auto) (0.0-0.8) K/uL Eos # (Auto) (0.0-0.7) K/uL Baso # (Auto) (0.0-0.1) K/uL Nucleated RBC % /100WBC Nucleated RBCs # K/uL Sodium 141 (136-145) mmol/L Potassium 3.4 L (3.5-5.1) mmol/L Chloride 107 (98-107) mmol/L Carbon Dioxide 20.5 L (21.0-32.0) mmol/L BUN 2 L (7.0-18.0) mg/dL Creatinine 0.7 (0.6-1.0) mg/dL Est Cr Clr Drug Dosing 85.18 mL/min Estimated GFR (MDRD) > 60.0 ml/min Glucose 154 H (74-106) mg/dL POC Glucose 186 H 138 H (60-110) mg/dL Calcium 7.6 L (8.5-10.1) mg/dL Phosphorus (2.6-4.7) mg/dL Magnesium (1.8-2.4) mg/dL 05/29/19 05/29/19 05/29/19 Range/Units 20:15 21:10 21:57 WBC (4.0-11.0) K/uL RBC (4.30-5.90) M/uL Hgb (12.0-16.0) g/dL Hct (36.0-46.0) % MCV (80.0-98.0) fL MCH (27.0-32.0) pg MCHC (31.0-37.0) g/dL RDW Std Deviation (28.0-62.0) fl RDW Coeff of Zak (11.0-15.0) % Plt Count (150-400) K/uL MPV (7.40-12.00) fL Neut % (Auto) (48.0-80.0) % Lymph % (Auto) (16.0-40.0) % Kinney % (Auto) (0.0-15.0) % Eos % (Auto) (0.0-7.0) % Baso % (Auto) (0.0-1.5) % Neut # (Auto) (1.4-5.7) K/uL Lymph # (Auto) (0.6-2.4) K/uL Kinney # (Auto) (0.0-0.8) K/uL Eos # (Auto) (0.0-0.7) K/uL Baso # (Auto) (0.0-0.1) K/uL Nucleated RBC % /100WBC Nucleated RBCs # K/uL Sodium (136-145) mmol/L Potassium (3.5-5.1) mmol/L Chloride (98-107) mmol/L Carbon Dioxide (21.0-32.0) mmol/L BUN (7.0-18.0) mg/dL Creatinine (0.6-1.0) mg/dL Est Cr Clr Drug Dosing mL/min Estimated GFR (MDRD) ml/min Glucose (74-106) mg/dL POC Glucose 205 H 177 H 165 H (60-110) mg/dL Calcium (8.5-10.1) mg/dL Phosphorus (2.6-4.7) mg/dL Magnesium (1.8-2.4) mg/dL 05/29/19 05/29/19 05/29/19 Range/Units 22:50 22:50 22:50 WBC (4.0-11.0) K/uL RBC (4.30-5.90) M/uL Hgb (12.0-16.0) g/dL Hct (36.0-46.0) % MCV (80.0-98.0) fL MCH (27.0-32.0) pg MCHC (31.0-37.0) g/dL RDW Std Deviation (28.0-62.0) fl RDW Coeff of Zak (11.0-15.0) % Plt Count (150-400) K/uL MPV (7.40-12.00) fL Neut % (Auto) (48.0-80.0) % Lymph % (Auto) (16.0-40.0) % Kinney % (Auto) (0.0-15.0) % Eos % (Auto) (0.0-7.0) % Baso % (Auto) (0.0-1.5) % Neut # (Auto) (1.4-5.7) K/uL Lymph # (Auto) (0.6-2.4) K/uL Kinney # (Auto) (0.0-0.8) K/uL Eos # (Auto) (0.0-0.7) K/uL Baso # (Auto) (0.0-0.1) K/uL Nucleated RBC % /100WBC Nucleated RBCs # K/uL Sodium 142 (136-145) mmol/L Potassium 3.3 L (3.5-5.1) mmol/L Chloride 106 (98-107) mmol/L Carbon Dioxide 23.0 (21.0-32.0) mmol/L BUN 2 L (7.0-18.0) mg/dL Creatinine 0.6 (0.6-1.0) mg/dL Est Cr Clr Drug Dosing 99.37 mL/min Estimated GFR (MDRD) > 60.0 ml/min Glucose 159 H (74-106) mg/dL POC Glucose 170 H (60-110) mg/dL Calcium 7.8 L (8.5-10.1) mg/dL Phosphorus 1.6 L (2.6-4.7) mg/dL Magnesium 2.3 (1.8-2.4) mg/dL 05/30/19 05/30/19 05/30/19 Range/Units 00:06 01:02 02:23 WBC (4.0-11.0) K/uL RBC (4.30-5.90) M/uL Hgb (12.0-16.0) g/dL Hct (36.0-46.0) % MCV (80.0-98.0) fL MCH (27.0-32.0) pg MCHC (31.0-37.0) g/dL RDW Std Deviation (28.0-62.0) fl RDW Coeff of Zak (11.0-15.0) % Plt Count (150-400) K/uL MPV (7.40-12.00) fL Neut % (Auto) (48.0-80.0) % Lymph % (Auto) (16.0-40.0) % Kinney % (Auto) (0.0-15.0) % Eos % (Auto) (0.0-7.0) % Baso % (Auto) (0.0-1.5) % Neut # (Auto) (1.4-5.7) K/uL Lymph # (Auto) (0.6-2.4) K/uL Kinney # (Auto) (0.0-0.8) K/uL Eos # (Auto) (0.0-0.7) K/uL Baso # (Auto) (0.0-0.1) K/uL Nucleated RBC % /100WBC Nucleated RBCs # K/uL Sodium (136-145) mmol/L Potassium (3.5-5.1) mmol/L Chloride (98-107) mmol/L Carbon Dioxide (21.0-32.0) mmol/L BUN (7.0-18.0) mg/dL Creatinine (0.6-1.0) mg/dL Est Cr Clr Drug Dosing mL/min Estimated GFR (MDRD) ml/min Glucose (74-106) mg/dL POC Glucose 165 H 147 H 173 H (60-110) mg/dL Calcium (8.5-10.1) mg/dL Phosphorus (2.6-4.7) mg/dL Magnesium (1.8-2.4) mg/dL 05/30/19 05/30/19 05/30/19 Range/Units 02:35 02:58 03:52 WBC (4.0-11.0) K/uL RBC (4.30-5.90) M/uL Hgb (12.0-16.0) g/dL Hct (36.0-46.0) % MCV (80.0-98.0) fL MCH (27.0-32.0) pg MCHC (31.0-37.0) g/dL RDW Std Deviation (28.0-62.0) fl RDW Coeff of Zak (11.0-15.0) % Plt Count (150-400) K/uL MPV (7.40-12.00) fL Neut % (Auto) (48.0-80.0) % Lymph % (Auto) (16.0-40.0) % Kinney % (Auto) (0.0-15.0) % Eos % (Auto) (0.0-7.0) % Baso % (Auto) (0.0-1.5) % Neut # (Auto) (1.4-5.7) K/uL Lymph # (Auto) (0.6-2.4) K/uL Kinney # (Auto) (0.0-0.8) K/uL Eos # (Auto) (0.0-0.7) K/uL Baso # (Auto) (0.0-0.1) K/uL Nucleated RBC % /100WBC Nucleated RBCs # K/uL Sodium 142 (136-145) mmol/L Potassium 4.0 (3.5-5.1) mmol/L Chloride 106 (98-107) mmol/L Carbon Dioxide 25.6 (21.0-32.0) mmol/L BUN 1 L (7.0-18.0) mg/dL Creatinine 0.6 (0.6-1.0) mg/dL Est Cr Clr Drug Dosing 99.37 mL/min Estimated GFR (MDRD) > 60.0 ml/min Glucose 170 H (74-106) mg/dL POC Glucose 150 H 122 H (60-110) mg/dL Calcium 8.1 L (8.5-10.1) mg/dL Phosphorus (2.6-4.7) mg/dL Magnesium (1.8-2.4) mg/dL 05/30/19 05/30/19 05/30/19 Range/Units 05:02 06:06 06:37 WBC (4.0-11.0) K/uL RBC (4.30-5.90) M/uL Hgb (12.0-16.0) g/dL Hct (36.0-46.0) % MCV (80.0-98.0) fL MCH (27.0-32.0) pg MCHC (31.0-37.0) g/dL RDW Std Deviation (28.0-62.0) fl RDW Coeff of Zak (11.0-15.0) % Plt Count (150-400) K/uL MPV (7.40-12.00) fL Neut % (Auto) (48.0-80.0) % Lymph % (Auto) (16.0-40.0) % Kinney % (Auto) (0.0-15.0) % Eos % (Auto) (0.0-7.0) % Baso % (Auto) (0.0-1.5) % Neut # (Auto) (1.4-5.7) K/uL Lymph # (Auto) (0.6-2.4) K/uL Kinney # (Auto) (0.0-0.8) K/uL Eos # (Auto) (0.0-0.7) K/uL Baso # (Auto) (0.0-0.1) K/uL Nucleated RBC % /100WBC Nucleated RBCs # K/uL Sodium 141 (136-145) mmol/L Potassium 3.7 (3.5-5.1) mmol/L Chloride 107 (98-107) mmol/L Carbon Dioxide 22.1 (21.0-32.0) mmol/L BUN 1 L (7.0-18.0) mg/dL Creatinine 0.7 (0.6-1.0) mg/dL Est Cr Clr Drug Dosing 85.18 mL/min Estimated GFR (MDRD) > 60.0 ml/min Glucose 147 H (74-106) mg/dL POC Glucose 202 H 142 H (60-110) mg/dL Calcium 8.4 L (8.5-10.1) mg/dL Phosphorus (2.6-4.7) mg/dL Magnesium (1.8-2.4) mg/dL 05/30/19 05/30/19 05/30/19 Range/Units 06:37 06:37 06:58 WBC 7.96 (4.0-11.0) K/uL RBC 4.09 L (4.30-5.90) M/uL Hgb 10.7 L (12.0-16.0) g/dL Hct 33.4 L (36.0-46.0) % MCV 81.7 (80.0-98.0) fL MCH 26.2 L (27.0-32.0) pg MCHC 32.0 (31.0-37.0) g/dL RDW Std Deviation 52.9 (28.0-62.0) fl RDW Coeff of Zak 18 H (11.0-15.0) % Plt Count 407 H (150-400) K/uL MPV 9.60 (7.40-12.00) fL Neut % (Auto) 57.4 (48.0-80.0) % Lymph % (Auto) 33.3 (16.0-40.0) % Kinney % (Auto) 8.5 (0.0-15.0) % Eos % (Auto) 0.3 (0.0-7.0) % Baso % (Auto) 0.5 (0.0-1.5) % Neut # (Auto) 4.6 (1.4-5.7) K/uL Lymph # (Auto) 2.7 H (0.6-2.4) K/uL Kinney # (Auto) 0.7 (0.0-0.8) K/uL Eos # (Auto) 0.0 (0.0-0.7) K/uL Baso # (Auto) 0.0 (0.0-0.1) K/uL Nucleated RBC % 0.0 /100WBC Nucleated RBCs # 0 K/uL Sodium (136-145) mmol/L Potassium (3.5-5.1) mmol/L Chloride (98-107) mmol/L Carbon Dioxide (21.0-32.0) mmol/L BUN (7.0-18.0) mg/dL Creatinine (0.6-1.0) mg/dL Est Cr Clr Drug Dosing mL/min Estimated GFR (MDRD) ml/min Glucose (74-106) mg/dL POC Glucose 159 H (60-110) mg/dL Calcium (8.5-10.1) mg/dL Phosphorus 1.2 L (2.6-4.7) mg/dL Magnesium 2.2 (1.8-2.4) mg/dL 05/30/19 05/30/19 05/30/19 Range/Units 07:55 09:19 10:28 WBC (4.0-11.0) K/uL RBC (4.30-5.90) M/uL Hgb (12.0-16.0) g/dL Hct (36.0-46.0) % MCV (80.0-98.0) fL MCH (27.0-32.0) pg MCHC (31.0-37.0) g/dL RDW Std Deviation (28.0-62.0) fl RDW Coeff of Zak (11.0-15.0) % Plt Count (150-400) K/uL MPV (7.40-12.00) fL Neut % (Auto) (48.0-80.0) % Lymph % (Auto) (16.0-40.0) % Kinney % (Auto) (0.0-15.0) % Eos % (Auto) (0.0-7.0) % Baso % (Auto) (0.0-1.5) % Neut # (Auto) (1.4-5.7) K/uL Lymph # (Auto) (0.6-2.4) K/uL Kinney # (Auto) (0.0-0.8) K/uL Eos # (Auto) (0.0-0.7) K/uL Baso # (Auto) (0.0-0.1) K/uL Nucleated RBC % /100WBC Nucleated RBCs # K/uL Sodium 137 (136-145) mmol/L Potassium 3.9 (3.5-5.1) mmol/L Chloride 104 (98-107) mmol/L Carbon Dioxide 20.8 L (21.0-32.0) mmol/L BUN 2 L (7.0-18.0) mg/dL Creatinine 0.6 (0.6-1.0) mg/dL Est Cr Clr Drug Dosing 99.37 mL/min Estimated GFR (MDRD) > 60.0 ml/min Glucose 364 H (74-106) mg/dL POC Glucose 164 H 151 H (60-110) mg/dL Calcium 7.7 L (8.5-10.1) mg/dL Phosphorus (2.6-4.7) mg/dL Magnesium (1.8-2.4) mg/dL 05/30/19 Range/Units 12:04 WBC (4.0-11.0) K/uL RBC (4.30-5.90) M/uL Hgb (12.0-16.0) g/dL Hct (36.0-46.0) % MCV (80.0-98.0) fL MCH (27.0-32.0) pg MCHC (31.0-37.0) g/dL RDW Std Deviation (28.0-62.0) fl RDW Coeff of Zak (11.0-15.0) % Plt Count (150-400) K/uL MPV (7.40-12.00) fL Neut % (Auto) (48.0-80.0) % Lymph % (Auto) (16.0-40.0) % Kinney % (Auto) (0.0-15.0) % Eos % (Auto) (0.0-7.0) % Baso % (Auto) (0.0-1.5) % Neut # (Auto) (1.4-5.7) K/uL Lymph # (Auto) (0.6-2.4) K/uL Kinney # (Auto) (0.0-0.8) K/uL Eos # (Auto) (0.0-0.7) K/uL Baso # (Auto) (0.0-0.1) K/uL Nucleated RBC % /100WBC Nucleated RBCs # K/uL Sodium (136-145) mmol/L Potassium (3.5-5.1) mmol/L Chloride (98-107) mmol/L Carbon Dioxide (21.0-32.0) mmol/L BUN (7.0-18.0) mg/dL Creatinine (0.6-1.0) mg/dL Est Cr Clr Drug Dosing mL/min Estimated GFR (MDRD) ml/min Glucose (74-106) mg/dL POC Glucose 303 H (60-110) mg/dL Calcium (8.5-10.1) mg/dL Phosphorus (2.6-4.7) mg/dL Magnesium (1.8-2.4) mg/dL Med Orders - Current: Current Medications Fluoxetine HCl (Prozac) 40 mg PO DAILY [facility] Last Admin: 05/30/19 09:05 Dose: 40 mg Levetiracetam 500 mg/ Dextrose (/Water) 105 mls @ 420 mls/hr IV Q12H [facility] Last Admin: 05/30/19 09:04 Dose: 420 mls/hr Sodium Phosphate 40 mmole/ (Sodium Chloride) 263.3333 mls @ 43.889 mls/hr IV ONETIME ONE Stop: 05/30/19 15:44 Last Admin: 05/30/19 09:58 Dose: 43.889 mls/hr Insulin Aspart (Novolog) 0 unit SUBCUT Q4HR [facility]; Protocol Last Admin: 05/30/19 12:09 Dose: 8 units Insulin Glargine (Lantus Solostar) 10 units SUBCUT DAILY [facility] Last Admin: 05/30/19 09:09 Dose: 10 units Levothyroxine Sodium (Levothyroxine) 112 mcg PO ACBREAKFAST [facility] Last Admin: 05/30/19 07:45 Dose: 112 mcg Levothyroxine Sodium (Levothyroxine) 25 mcg PO ACBREAKFAST [facility] Last Admin: 05/30/19 07:45 Dose: 25 mcg Lorazepam (Ativan) 1 mg PO TID PRN PRN Reason: Anxiety Last Admin: 05/29/19 21:55 Dose: 1 mg Morphine Sulfate (Morphine) 2 mg IVPUSH Q4H PRN PRN Reason: Pain Last Admin: 05/30/19 09:32 Dose: 2 mg Ondansetron HCl (Zofran Odt) 4 mg PO Q4H PRN PRN Reason: nausea, able to take PO Last Admin: 05/30/19 05:00 Dose: 4 mg Rosuvastatin Calcium (Crestor) 5 mg PO BEDTIME [facility] Last Admin: 05/29/19 20:28 Dose: 5 mg Tizanidine HCl (Zanaflex) 4 mg PO BID [facility] Last Admin: 05/30/19 08:46 Dose: 4 mg Discontinued Medications Calcium Gluconate (Calcium Gluconate) 2 gm IV ONETIME ONE Stop: 05/29/19 10:24 Last Admin: 05/29/19 10:57 Dose: 2 gm Diphenhydramine HCl (Benadryl) 25 mg IVPUSH ONETIME ONE Stop: 05/30/19 00:37 Last Admin: 05/30/19 00:53 Dose: 25 mg Sodium Chloride (Normal Saline) 1,000 mls @ 999 mls/hr IV BOLUS ONE Stop: 05/28/19 15:27 Last Admin: 05/28/19 15:05 Dose: 999 mls/hr Insulin Human Regular 100 unit (/ Sodium Chloride) 100 mls @ 5 mls/hr IV TITRATE [facility]; Protocol Last Titration: 05/30/19 07:56 Dose: 1.5 unit/hr, 1.5 mls/hr Sodium Chloride (Normal Saline) 1,000 mls @ 999 mls/hr IV STAT ONE Stop: 05/28/19 16:59 Last Admin: 05/28/19 16:18 Dose: 999 mls/hr Potassium Chloride 20 meq/ (Premix) 50 mls @ 25 mls/hr IV ONETIME STA Stop: 05/28/19 19:03 Last Admin: 05/28/19 19:51 Dose: Not Given Potassium Chloride/Sodium Chloride (Normal Saline With 20 Meq Kcl) 1,000 mls @ 999 mls/hr IV ASDIRECTED [facility] Magnesium Sulfate 2 gm/ Premix 50 mls @ 25 mls/hr IV ONETIME ONE Stop: 05/28/19 19:17 Last Admin: 05/28/19 18:45 Dose: 25 mls/hr Potassium Chloride/Sodium Chloride (Normal Saline With 20 Meq Kcl) 1,000 mls @ 999 mls/hr IV ASDIRECTED [facility] Dextrose/Sodium Chloride (Dextrose 5%-Normal Saline) 1,000 mls @ 125 mls/hr IV ASDIRECTED [facility] Last Admin: 05/29/19 03:42 Dose: 125 mls/hr Sodium Chloride (Normal Saline) 1,000 mls @ 999 mls/hr IV ASDIRECTED [facility] Stop: 05/29/19 21:01 Last Admin: 05/28/19 22:14 Dose: 999 mls/hr Sodium Phosphate 30 mmole/ (Sodium Chloride) 260 mls @ 86 mls/hr IV ONETIME ONE Stop: 05/28/19 23:16 Last Admin: 05/28/19 21:20 Dose: 86 mls/hr Potassium Chloride 40 meq/ (Premix) 100 mls @ 50 mls/hr IV ONETIME ONE Stop: 05/29/19 01:33 Last Admin: 05/28/19 23:50 Dose: 50 mls/hr Potassium Chloride 40 meq/ (Premix) 100 mls @ 25 mls/hr IV ONETIME ONE Stop: 05/29/19 07:35 Last Admin: 05/29/19 03:42 Dose: 25 mls/hr Dextrose/Sodium Chloride (Dextrose 5%-1/2 Ns) 1,000 mls @ 125 mls/hr IV ASDIRECTED [facility] Last Admin: 05/29/19 10:24 Dose: 125 mls/hr Potassium Chloride 20 meq/ (Premix) 50 mls @ 25 mls/hr IV ONETIME ONE Stop: 05/29/19 12:59 Last Admin: 05/29/19 11:36 Dose: 25 mls/hr Magnesium Sulfate 2 gm/ Premix 50 mls @ 50 mls/hr IV ONETIME ONE Stop: 05/29/19 11:24 Last Admin: 05/29/19 11:17 Dose: 50 mls/hr Potassium Phosphate 15 mmole/ (Sodium Chloride) 255 mls @ 85 mls/hr IV ONETIME ONE Stop: 05/29/19 15:59 Last Admin: 05/29/19 12:59 Dose: 85 mls/hr Potassium Chloride 20 meq/ (Premix) 50 mls @ 25 mls/hr IV ONETIME ONE Stop: 05/29/19 17:48 Last Admin: 05/29/19 16:48 Dose: 25 mls/hr Potassium Chloride/Dextrose/Sod Cl (D5 1/2 Ns W/ 20 Meq/L Kcl) 1,000 mls @ 100 mls/hr IV ASDIRECTED [facility] Last Admin: 05/30/19 06:32 Dose: 100 mls/hr Potassium Chloride (Kcl 40 Meq In Water 100 Ml) 100 mls @ 25 mls/hr IV ONETIME ONE Stop: 05/30/19 00:14 Last Admin: 05/29/19 20:43 Dose: 25 mls/hr Potassium Chloride 40 meq/ (Premix) 100 mls @ 50 mls/hr IV ONETIME ONE Stop: 05/30/19 02:29 Last Admin: 05/30/19 00:51 Dose: 50 mls/hr Ketorolac Tromethamine (Toradol) 30 mg IVPUSH ONETIME ONE Stop: 05/28/19 14:40 Last Admin: 05/28/19 15:05 Dose: Not Given Levetiracetam (Keppra) 500 mg PO BID [facility] Morphine Sulfate (Morphine) 2 mg IVPUSH ONETIME ONE Stop: 05/28/19 15:44 Last Admin: 05/28/19 15:55 Dose: Not Given Morphine Sulfate (Morphine) 15 mg PO Q4H PRN PRN Reason: Pain Last Admin: 05/28/19 18:43 Dose: 15 mg Non-Formulary Medication (Levothyroxine) 137 mcg PO ACBREAKFAST [facility] Non-Formulary Medication (Morphine Sulfate/Naltrexone [Embeda Er 60-2.4 Mg Capsule]) 1 each PO Q12HR [facility] Non-Formulary Medication (Rosuvastatin) 5 mg PO BEDTIME [facility] Last Admin: 05/28/19 20:19 Dose: Not Given Ondansetron HCl (Zofran) Confirm Administered Dose 4 mg .ROUTE .STK-MED ONE Stop: 05/28/19 14:23 Last Admin: 05/28/19 14:31 Dose: Not Given Ondansetron HCl (Zofran) 4 mg IVPUSH ONETIME ONE Stop: 05/28/19 14:32 Last Admin: 05/28/19 15:05 Dose: 4 mg Ondansetron HCl (Zofran) 4 mg IVPUSH ONETIME ONE Stop: 05/28/19 23:40 Last Admin: 05/28/19 23:48 Dose: 4 mg Ondansetron HCl (Zofran) 4 mg IVPUSH ONETIME ONE Stop: 05/29/19 03:37 Last Admin: 05/29/19 03:42 Dose: 4 mg Ondansetron HCl (Zofran) 4 mg IVPUSH ONETIME ONE Stop: 05/30/19 00:42 Last Admin: 05/30/19 00:59 Dose: 4 mg Potassium Chloride (Potassium Chloride) 40 meq PO ONETIME ONE Stop: 05/28/19 20:01 Last Admin: 05/28/19 21:06 Dose: Not Given Promethazine HCl (Phenergan) 25 mg PO ONETIME ONE Stop: 05/30/19 10:10 - Exam General: Alert, Oriented, Cooperative, Mild Distress Lungs: Clear to Auscultation, Normal Respiratory Effort Cardiovascular: Regular Rate, Regular Rhythm GI/Abdominal Exam: Normal Bowel Sounds, Soft, Non-Tender, No Distention - Problem List Review Problem List Initiated/Reviewed/Updated: Yes - My Orders Last 24 Hours: My Active Orders 05/30/19 14:30 BASIC METABOLIC PANEL,BMP [CHEM] Q4H 05/30/19 18:30 BASIC METABOLIC PANEL,BMP [CHEM] Q4H 05/30/19 22:30 BASIC METABOLIC PANEL,BMP [CHEM] Q4H 05/31/19 02:30 BASIC METABOLIC PANEL,BMP [CHEM] Q4H 05/31/19 06:30 BASIC METABOLIC PANEL,BMP [CHEM] Q4H 05/31/19 10:30 BASIC METABOLIC PANEL,BMP [CHEM] Q4H - Plan Plan:: Assessment: 1. Diabetic ketoacidosis. Plan: 1. For DKA, continue management per DKA protocol. Patient started on subcutaneous long acting insulin and sliding scale. IV fluids discontinued. Continue BMP q4h. Anion gap improved. Will continue with electrolyte replacement. Appreciate further recommendations and management per eICU. <Mirella Warren - Last Filed: 06/01/19 13:16> - Patient Data Vitals - Most Recent: Last Vital Signs Temp 36.8 C 05/31/19 17:00 Pulse 80 05/31/19 12:00 Resp 15 05/31/19 17:00 BP 133/79 05/31/19 17:00 Pulse Ox 96 05/31/19 17:00 Lab Results Last 24 Hours: Laboratory Results - last 24 hr 05/31/19 05/31/19 Range/Units 14:40 16:14 Sodium 138 (136-145) mmol/L Potassium 3.8 (3.5-5.1) mmol/L Chloride 104 (98-107) mmol/L Carbon Dioxide 22.2 (21.0-32.0) mmol/L BUN 7 (7.0-18.0) mg/dL Creatinine 0.7 (0.6-1.0) mg/dL Est Cr Clr Drug Dosing 85.18 mL/min Estimated GFR (MDRD) > 60.0 ml/min Glucose 151 H (74-106) mg/dL POC Glucose 174 H (60-110) mg/dL Calcium 8.5 (8.5-10.1) mg/dL Med Orders - Current: Current Medications Discontinued Medications Calcium Gluconate (Calcium Gluconate) 2 gm IV ONETIME ONE Stop: 05/29/19 10:24 Last Admin: 05/29/19 10:57 Dose: 2 gm Diphenhydramine HCl (Benadryl) 25 mg IVPUSH ONETIME ONE Stop: 05/30/19 00:37 Last Admin: 05/30/19 00:53 Dose: 25 mg Diphenhydramine HCl (Benadryl) 25 mg PO ONETIME ONE Stop: 05/30/19 20:34 Last Admin: 05/30/19 20:39 Dose: 25 mg Fluoxetine HCl (Prozac) 40 mg PO DAILY [facility] Last Admin: 05/31/19 08:50 Dose: 40 mg Sodium Chloride (Normal Saline) 1,000 mls @ 999 mls/hr IV BOLUS ONE Stop: 05/28/19 15:27 Last Admin: 05/28/19 15:05 Dose: 999 mls/hr Insulin Human Regular 100 unit (/ Sodium Chloride) 100 mls @ 5 mls/hr IV TITRATE PIPPA; Protocol Last Titration: 05/30/19 07:56 Dose: 1.5 unit/hr, 1.5 mls/hr Sodium Chloride (Normal Saline) 1,000 mls @ 999 mls/hr IV STAT ONE Stop: 05/28/19 16:59 Last Admin: 05/28/19 16:18 Dose: 999 mls/hr Potassium Chloride 20 meq/ (Premix) 50 mls @ 25 mls/hr IV ONETIME STA Stop: 05/28/19 19:03 Last Admin: 05/28/19 19:51 Dose: Not Given Potassium Chloride/Sodium Chloride (Normal Saline With 20 Meq Kcl) 1,000 mls @ 999 mls/hr IV ASDIRECTED [facility] Magnesium Sulfate 2 gm/ Premix 50 mls @ 25 mls/hr IV ONETIME ONE Stop: 05/28/19 19:17 Last Admin: 05/28/19 18:45 Dose: 25 mls/hr Potassium Chloride/Sodium Chloride (Normal Saline With 20 Meq Kcl) 1,000 mls @ 999 mls/hr IV ASDIRECTED [facility] Dextrose/Sodium Chloride (Dextrose 5%-Normal Saline) 1,000 mls @ 125 mls/hr IV ASDIRECTED [facility] Last Admin: 05/29/19 03:42 Dose: 125 mls/hr Sodium Chloride (Normal Saline) 1,000 mls @ 999 mls/hr IV ASDIRECTED [facility] Stop: 05/29/19 21:01 Last Admin: 05/28/19 22:14 Dose: 999 mls/hr Sodium Phosphate 30 mmole/ (Sodium Chloride) 260 mls @ 86 mls/hr IV ONETIME ONE Stop: 05/28/19 23:16 Last Admin: 05/28/19 21:20 Dose: 86 mls/hr Levetiracetam 500 mg/ Dextrose (/Water) 105 mls @ 420 mls/hr IV Q12H [facility] Last Admin: 05/31/19 09:01 Dose: 420 mls/hr Potassium Chloride 40 meq/ (Premix) 100 mls @ 50 mls/hr IV ONETIME ONE Stop: 05/29/19 01:33 Last Admin: 05/28/19 23:50 Dose: 50 mls/hr Potassium Chloride 40 meq/ (Premix) 100 mls @ 25 mls/hr IV ONETIME ONE Stop: 05/29/19 07:35 Last Admin: 05/29/19 03:42 Dose: 25 mls/hr Dextrose/Sodium Chloride (Dextrose 5%-1/2 Ns) 1,000 mls @ 125 mls/hr IV ASDIRECTED [facility] Last Admin: 05/29/19 10:24 Dose: 125 mls/hr Potassium Chloride 20 meq/ (Premix) 50 mls @ 25 mls/hr IV ONETIME ONE Stop: 05/29/19 12:59 Last Admin: 05/29/19 11:36 Dose: 25 mls/hr Magnesium Sulfate 2 gm/ Premix 50 mls @ 50 mls/hr IV ONETIME ONE Stop: 05/29/19 11:24 Last Admin: 05/29/19 11:17 Dose: 50 mls/hr Potassium Phosphate 15 mmole/ (Sodium Chloride) 255 mls @ 85 mls/hr IV ONETIME ONE Stop: 05/29/19 15:59 Last Admin: 05/29/19 12:59 Dose: 85 mls/hr Potassium Chloride 20 meq/ (Premix) 50 mls @ 25 mls/hr IV ONETIME ONE Stop: 05/29/19 17:48 Last Admin: 05/29/19 16:48 Dose: 25 mls/hr Potassium Chloride/Dextrose/Sod Cl (D5 1/2 Ns W/ 20 Meq/L Kcl) 1,000 mls @ 100 mls/hr IV ASDIRECTED [facility] Last Admin: 05/30/19 06:32 Dose: 100 mls/hr Potassium Chloride (Kcl 40 Meq In Water 100 Ml) 100 mls @ 25 mls/hr IV ONETIME ONE Stop: 05/30/19 00:14 Last Admin: 05/29/19 20:43 Dose: 25 mls/hr Potassium Chloride 40 meq/ (Premix) 100 mls @ 50 mls/hr IV ONETIME ONE Stop: 05/30/19 02:29 Last Admin: 05/30/19 00:51 Dose: 50 mls/hr Sodium Phosphate 40 mmole/ (Sodium Chloride) 263.3333 mls @ 43.889 mls/hr IV ONETIME ONE Stop: 05/30/19 15:44 Last Admin: 05/30/19 09:58 Dose: 43.889 mls/hr Sodium Chloride (Normal Saline) 500 mls @ 999.99 mls/hr IV BOLUS ONE Stop: 05/31/19 11:59 Last Admin: 05/31/19 11:29 Dose: 999.99 mls/hr Insulin Aspart (Novolog) 0 unit SUBCUT Q4HR [facility]; Protocol Last Admin: 05/31/19 16:18 Dose: 3 units Insulin Glargine (Lantus Solostar) 10 units SUBCUT DAILY [facility] Last Admin: 05/31/19 08:50 Dose: 10 units Insulin Glargine (Lantus Solostar) 12 units SUBCUT BID [facility] Ketorolac Tromethamine (Toradol) 30 mg IVPUSH ONETIME ONE Stop: 05/28/19 14:40 Last Admin: 05/28/19 15:05 Dose: Not Given Levetiracetam (Keppra) 500 mg PO BID [facility] Levothyroxine Sodium (Levothyroxine) 112 mcg PO ACBREAKFAST [facility] Last Admin: 05/31/19 06:34 Dose: 112 mcg Levothyroxine Sodium (Levothyroxine) 25 mcg PO ACBREAKFAST [facility] Last Admin: 05/31/19 06:35 Dose: 25 mcg Lorazepam (Ativan) 1 mg PO TID PRN PRN Reason: Anxiety Last Admin: 05/29/19 21:55 Dose: 1 mg Morphine Sulfate (Morphine) 2 mg IVPUSH ONETIME ONE Stop: 05/28/19 15:44 Last Admin: 05/28/19 15:55 Dose: Not Given Morphine Sulfate (Morphine) 15 mg PO Q4H PRN PRN Reason: Pain Last Admin: 05/28/19 18:43 Dose: 15 mg Morphine Sulfate (Morphine) 2 mg IVPUSH Q4H PRN PRN Reason: Pain Last Admin: 05/31/19 05:42 Dose: 2 mg Morphine Sulfate (Morphine) 1 mg IVPUSH Q4H PRN PRN Reason: Pain Last Admin: 05/31/19 14:23 Dose: 1 mg Non-Formulary Medication (Levothyroxine) 137 mcg PO ACBREAKFAST PIPPA Non-Formulary Medication (Morphine Sulfate/Naltrexone [Embeda Er 60-2.4 Mg Capsule]) 1 each PO Q12HR PIPPA Non-Formulary Medication (Rosuvastatin) 5 mg PO BEDTIME PIPPA Last Admin: 05/28/19 20:19 Dose: Not Given Ondansetron HCl (Zofran) Confirm Administered Dose 4 mg .ROUTE .STK-MED ONE Stop: 05/28/19 14:23 Last Admin: 05/28/19 14:31 Dose: Not Given Ondansetron HCl (Zofran) 4 mg IVPUSH ONETIME ONE Stop: 05/28/19 14:32 Last Admin: 05/28/19 15:05 Dose: 4 mg Ondansetron HCl (Zofran Odt) 4 mg PO Q4H PRN PRN Reason: nausea, able to take PO Last Admin: 05/31/19 08:50 Dose: 4 mg Ondansetron HCl (Zofran) 4 mg IVPUSH ONETIME ONE Stop: 05/28/19 23:40 Last Admin: 05/28/19 23:48 Dose: 4 mg Ondansetron HCl (Zofran) 4 mg IVPUSH ONETIME ONE Stop: 05/29/19 03:37 Last Admin: 05/29/19 03:42 Dose: 4 mg Ondansetron HCl (Zofran) 4 mg IVPUSH ONETIME ONE Stop: 05/30/19 00:42 Last Admin: 05/30/19 00:59 Dose: 4 mg Potassium Chloride (Potassium Chloride) 40 meq PO ONETIME ONE Stop: 05/28/19 20:01 Last Admin: 05/28/19 21:06 Dose: Not Given Potassium Chloride (Klor-Con M20) 20 meq PO ONETIME ONE Stop: 05/30/19 16:47 Last Admin: 05/30/19 18:35 Dose: 20 meq Promethazine HCl (Phenergan) 25 mg PO ONETIME ONE Stop: 05/30/19 10:10 Last Admin: 05/30/19 12:00 Dose: 25 mg Promethazine HCl (Phenergan) 25 mg PO Q4H ONE Stop: 05/31/19 09:50 Last Admin: 05/31/19 10:12 Dose: 25 mg Promethazine HCl (Phenergan) 25 mg PO Q4H PRN PRN Reason: Nausea Last Admin: 05/31/19 14:06 Dose: 25 mg Rosuvastatin Calcium (Crestor) 5 mg PO BEDTIME [facility] Last Admin: 05/30/19 20:39 Dose: 5 mg Tizanidine HCl (Zanaflex) 4 mg PO BID [facility] Last Admin: 05/31/19 08:50 Dose: 4 mg - Plan Plan:: I have seen and evaluated the patient and agree with the residents note unless specified in my note
[2019-05-30 14:55] LABS: BLOOD UREA NITROGEN,BUN 3 mg/dL (7.0-18.0); CARBON DIOXIDE,CO2 21.8 mmol/L (21.0-32.0); CHLORIDE,CL 106 mmol/L (98-107); GLUCOSE RANDOM 150 mg/dL (74-106); POTASSIUM,K 3.4 mmol/L (3.5-5.1); SODIUM,NA 143 mmol/L (136-145)
[2019-05-30] MEDS ORDERED: Potassium Chloride 20 MEQ Tab.ER PO ONE (16:46)
--- NOTE | 2019-05-30 16:47 | PN ---
THC Physician - Brief Progress [id number]/29/2019 16:46[facility] chi [place], [place] - MWN (JAMEY) - MWN ICUD ALEXSANDER DUMONTDate of Service 05/30/2019 16:46HPI/Events of Note Give KCL 20meq po x 1 with low K+.Interventions Intermediate-Communication with other health care providers and/or family, Diagnostic test evaluation, Electrolyte abnormality - evaluation and ma nagement
[2019-05-30 18:55] LABS: BLOOD UREA NITROGEN,BUN 4 mg/dL (7.0-18.0); CARBON DIOXIDE,CO2 21.8 mmol/L (21.0-32.0); CHLORIDE,CL 105 mmol/L (98-107); GLUCOSE RANDOM 161 mg/dL (74-106); POTASSIUM,K 3.5 mmol/L (3.5-5.1); SODIUM,NA 141 mmol/L (136-145)
--- NOTE | 2019-05-30 20:31 | PN ---
THC Physician - Brief Progress [id number]/29/2019 20:29[facility] [place] m[place]les, [place] - INGE (JAMEY) - EDILSONN ICUALEXSANDER ROSADODate of Service 05/30/2019 20:29HPI/Events of Note complains:generalised itching,no rashplan:oral diphenhydramine 25 mg onceInterventions Minor -Routine modifications to care plan (e.g. PRN medications for pain, fever)
[2019-05-30] MEDS ORDERED: diphenhydrAMINE 25 MG Cap PO ONE (20:33)
[2019-05-30] MEDS: Rosuvastatin 10 MG Tab PO SCH (20:39)
[2019-05-30 22:53] LABS: BLOOD UREA NITROGEN,BUN 4 mg/dL (7.0-18.0); CARBON DIOXIDE,CO2 21.2 mmol/L (21.0-32.0); CHLORIDE,CL 106 mmol/L (98-107); GLUCOSE RANDOM 151 mg/dL (74-106); SODIUM,NA 141 mmol/L (136-145)
[2019-05-31] MEDS: Insulin Aspart 100 Units/ML 3 ML Pen SUBCUT SCH ×5 (00:06→16:18)
[2019-05-31 03:00] LABS: BLOOD UREA NITROGEN,BUN 4 mg/dL (7.0-18.0); CARBON DIOXIDE,CO2 22.8 mmol/L (21.0-32.0); CHLORIDE,CL 105 mmol/L (98-107); GLUCOSE RANDOM 150 mg/dL (74-106); POTASSIUM,K 3.9 mmol/L (3.5-5.1); SODIUM,NA 140 mmol/L (136-145)
[2019-05-31] MEDS: Ondansetron 4 MG Tab.DIS PO PRN ×2 (04:04→08:50)
[2019-05-31] MEDS: Morphine 2 MG/ML Syringe IVPUSH PRN ×3 (05:42→14:23)
[2019-05-31] MEDS: Levothyroxine 112 MCG Tab PO SCH (06:34)
[2019-05-31] MEDS: Levothyroxine 25 MCG Tab PO SCH (06:35)
[2019-05-31 07:06] LABS: BLOOD UREA NITROGEN,BUN 6 mg/dL (7.0-18.0); CARBON DIOXIDE,CO2 20.2 mmol/L (21.0-32.0); CHLORIDE,CL 104 mmol/L (98-107); GLUCOSE RANDOM 194 mg/dL (74-106); POTASSIUM,K 3.7 mmol/L (3.5-5.1); SODIUM,NA 139 mmol/L (136-145)
[2019-05-31] MEDS: tiZANidine 4 MG Tab PO SCH (08:50)
[2019-05-31] MEDS: FLUoxetine 20 MG Cap PO SCH (08:50)
[2019-05-31] MEDS: Insulin Glargine,Human Rec. Analog 100 Units/ML 3 ML Pen SUBCUT SCH (08:50)
--- NOTE | 2019-05-31 09:42 | PCM.PN ---
<Shayan Pollard M - Last Filed: 05/31/19 12:20> - General Info Date of Service: 05/31/19 Subjective Update: Patient continues to complain of back pain and nausea this morning. Reports not tolerating PO diet very well. Has had bowel movement and urinating frequently. Has been ambulating. - Patient Data Vitals - Most Recent: Last Vital Signs Temp 98.6 F 05/31/19 08:00 Pulse 99 05/31/19 09:00 Resp 25 H 05/31/19 09:00 BP 119/74 05/31/19 09:00 Pulse Ox 99 05/31/19 09:00 Weight - Most Recent: 50.1 kg I&O - Last 24 Hours: Intake & Output 05/30/19 05/31/19 05/31/19 22:59 06:59 14:59 Intake Total 997 555 105 Output Total 300 950 Balance 697 -395 105 Lab Results Last 24 Hours: Laboratory Results - last 24 hr 05/30/19 05/30/19 05/30/19 Range/Units 10:28 12:04 14:28 WBC (4.0-11.0) K/uL RBC (4.30-5.90) M/uL Hgb (12.0-16.0) g/dL Hct (36.0-46.0) % MCV (80.0-98.0) fL MCH (27.0-32.0) pg MCHC (31.0-37.0) g/dL RDW Std Deviation (28.0-62.0) fl RDW Coeff of Zak (11.0-15.0) % Plt Count (150-400) K/uL MPV (7.40-12.00) fL Neut % (Auto) (48.0-80.0) % Lymph % (Auto) (16.0-40.0) % [place] % (Auto) (0.0-15.0) % Eos % (Auto) (0.0-7.0) % Baso % (Auto) (0.0-1.5) % Neut # (Auto) (1.4-5.7) K/uL Lymph # (Auto) (0.6-2.4) K/uL [place] # (Auto) (0.0-0.8) K/uL Eos # (Auto) (0.0-0.7) K/uL Baso # (Auto) (0.0-0.1) K/uL Nucleated RBC % /100WBC Nucleated RBCs # K/uL Sodium 137 143 (136-145) mmol/L Potassium 3.9 3.4 L (3.5-5.1) mmol/L Chloride 104 106 (98-107) mmol/L Carbon Dioxide 20.8 L 21.8 (21.0-32.0) mmol/L Anion Gap BUN 2 L 3 L (7.0-18.0) mg/dL Creatinine 0.6 0.7 (0.6-1.0) mg/dL Est Cr Clr Drug Dosing 99.37 85.18 mL/min Estimated GFR (MDRD) > 60.0 > 60.0 ml/min BUN/Creatinine Ratio Glucose 364 H 150 H (74-106) mg/dL POC Glucose 303 H (60-110) mg/dL Calcium 7.7 L 8.5 (8.5-10.1) mg/dL Phosphorus (2.6-4.7) mg/dL Magnesium (1.8-2.4) mg/dL Albumin (3.4-5.0) g/dL 05/30/19 05/30/19 05/30/19 Range/Units 16:11 18:33 19:52 WBC (4.0-11.0) K/uL RBC (4.30-5.90) M/uL Hgb (12.0-16.0) g/dL Hct (36.0-46.0) % MCV (80.0-98.0) fL MCH (27.0-32.0) pg MCHC (31.0-37.0) g/dL RDW Std Deviation (28.0-62.0) fl RDW Coeff of Zak (11.0-15.0) % Plt Count (150-400) K/uL MPV (7.40-12.00) fL Neut % (Auto) (48.0-80.0) % Lymph % (Auto) (16.0-40.0) % [place] % (Auto) (0.0-15.0) % Eos % (Auto) (0.0-7.0) % Baso % (Auto) (0.0-1.5) % Neut # (Auto) (1.4-5.7) K/uL Lymph # (Auto) (0.6-2.4) K/uL [place] # (Auto) (0.0-0.8) K/uL Eos # (Auto) (0.0-0.7) K/uL Baso # (Auto) (0.0-0.1) K/uL Nucleated RBC % /100WBC Nucleated RBCs # K/uL Sodium 141 (136-145) mmol/L Potassium 3.5 (3.5-5.1) mmol/L Chloride 105 (98-107) mmol/L Carbon Dioxide 21.8 (21.0-32.0) mmol/L Anion Gap BUN 4 L (7.0-18.0) mg/dL Creatinine 0.6 (0.6-1.0) mg/dL Est Cr Clr Drug Dosing 99.37 mL/min Estimated GFR (MDRD) > 60.0 ml/min BUN/Creatinine Ratio Glucose 161 H (74-106) mg/dL POC Glucose 238 H 186 H (60-110) mg/dL Calcium 8.2 L (8.5-10.1) mg/dL Phosphorus (2.6-4.7) mg/dL Magnesium (1.8-2.4) mg/dL Albumin (3.4-5.0) g/dL 05/30/19 05/31/19 05/31/19 Range/Units 22:32 00:00 02:40 WBC (4.0-11.0) K/uL RBC (4.30-5.90) M/uL Hgb (12.0-16.0) g/dL Hct (36.0-46.0) % MCV (80.0-98.0) fL MCH (27.0-32.0) pg MCHC (31.0-37.0) g/dL RDW Std Deviation (28.0-62.0) fl RDW Coeff of Zak (11.0-15.0) % Plt Count (150-400) K/uL MPV (7.40-12.00) fL Neut % (Auto) (48.0-80.0) % Lymph % (Auto) (16.0-40.0) % [place] % (Auto) (0.0-15.0) % Eos % (Auto) (0.0-7.0) % Baso % (Auto) (0.0-1.5) % Neut # (Auto) (1.4-5.7) K/uL Lymph # (Auto) (0.6-2.4) K/uL [place] # (Auto) (0.0-0.8) K/uL Eos # (Auto) (0.0-0.7) K/uL Baso # (Auto) (0.0-0.1) K/uL Nucleated RBC % /100WBC Nucleated RBCs # K/uL Sodium 141 140 (136-145) mmol/L Potassium 4.0 3.9 (3.5-5.1) mmol/L Chloride 106 105 (98-107) mmol/L Carbon Dioxide 21.2 22.8 (21.0-32.0) mmol/L Anion Gap 17.8 BUN 4 L 4 L (7.0-18.0) mg/dL Creatinine 0.6 0.6 (0.6-1.0) mg/dL Est Cr Clr Drug Dosing 99.37 99.37 mL/min Estimated GFR (MDRD) > 60.0 > 60.0 ml/min BUN/Creatinine Ratio 6.66 Glucose 151 H 150 H (74-106) mg/dL POC Glucose 266 H (60-110) mg/dL Calcium 8.6 8.8 (8.5-10.1) mg/dL Phosphorus 2.6 (2.6-4.7) mg/dL Magnesium 1.9 (1.8-2.4) mg/dL Albumin 3.2 L (3.4-5.0) g/dL 05/31/19 05/31/19 05/31/19 Range/Units 04:03 06:33 06:33 WBC 7.11 (4.0-11.0) K/uL RBC 4.37 (4.30-5.90) M/uL Hgb 11.8 L (12.0-16.0) g/dL Hct 36.0 (36.0-46.0) % MCV 82.4 (80.0-98.0) fL MCH 27.0 (27.0-32.0) pg MCHC 32.8 (31.0-37.0) g/dL RDW Std Deviation 54.8 (28.0-62.0) fl RDW Coeff of Zak 18 H (11.0-15.0) % Plt Count 391 (150-400) K/uL MPV 10.30 (7.40-12.00) fL Neut % (Auto) 57.1 (48.0-80.0) % Lymph % (Auto) 33.3 (16.0-40.0) % [place] % (Auto) 8.2 (0.0-15.0) % Eos % (Auto) 0.8 (0.0-7.0) % Baso % (Auto) 0.6 (0.0-1.5) % Neut # (Auto) 4.1 (1.4-5.7) K/uL Lymph # (Auto) 2.4 (0.6-2.4) K/uL [place] # (Auto) 0.6 (0.0-0.8) K/uL Eos # (Auto) 0.1 (0.0-0.7) K/uL Baso # (Auto) 0.0 (0.0-0.1) K/uL Nucleated RBC % 0.0 /100WBC Nucleated RBCs # 0 K/uL Sodium 139 (136-145) mmol/L Potassium 3.7 (3.5-5.1) mmol/L Chloride 104 (98-107) mmol/L Carbon Dioxide 20.2 L (21.0-32.0) mmol/L Anion Gap BUN 6 L (7.0-18.0) mg/dL Creatinine 0.7 (0.6-1.0) mg/dL Est Cr Clr Drug Dosing 85.18 mL/min Estimated GFR (MDRD) > 60.0 ml/min BUN/Creatinine Ratio Glucose 194 H (74-106) mg/dL POC Glucose 227 H (60-110) mg/dL Calcium 8.7 (8.5-10.1) mg/dL Phosphorus (2.6-4.7) mg/dL Magnesium (1.8-2.4) mg/dL Albumin (3.4-5.0) g/dL 05/31/19 Range/Units 08:06 WBC (4.0-11.0) K/uL RBC (4.30-5.90) M/uL Hgb (12.0-16.0) g/dL Hct (36.0-46.0) % MCV (80.0-98.0) fL MCH (27.0-32.0) pg MCHC (31.0-37.0) g/dL RDW Std Deviation (28.0-62.0) fl RDW Coeff of Zak (11.0-15.0) % Plt Count (150-400) K/uL MPV (7.40-12.00) fL Neut % (Auto) (48.0-80.0) % Lymph % (Auto) (16.0-40.0) % [place] % (Auto) (0.0-15.0) % Eos % (Auto) (0.0-7.0) % Baso % (Auto) (0.0-1.5) % Neut # (Auto) (1.4-5.7) K/uL Lymph # (Auto) (0.6-2.4) K/uL [place] # (Auto) (0.0-0.8) K/uL Eos # (Auto) (0.0-0.7) K/uL Baso # (Auto) (0.0-0.1) K/uL Nucleated RBC % /100WBC Nucleated RBCs # K/uL Sodium (136-145) mmol/L Potassium (3.5-5.1) mmol/L Chloride (98-107) mmol/L Carbon Dioxide (21.0-32.0) mmol/L Anion Gap BUN (7.0-18.0) mg/dL Creatinine (0.6-1.0) mg/dL Est Cr Clr Drug Dosing mL/min Estimated GFR (MDRD) ml/min BUN/Creatinine Ratio Glucose (74-106) mg/dL POC Glucose 348 H (60-110) mg/dL Calcium (8.5-10.1) mg/dL Phosphorus (2.6-4.7) mg/dL Magnesium (1.8-2.4) mg/dL Albumin (3.4-5.0) g/dL Med Orders - Current: Current Medications Fluoxetine HCl (Prozac) 40 mg PO DAILY PIPPA Last Admin: 05/31/19 08:50 Dose: 40 mg Levetiracetam 500 mg/ Dextrose (/Water) 105 mls @ 420 mls/hr IV Q12H [facility] Last Admin: 05/31/19 09:01 Dose: 420 mls/hr Insulin Aspart (Novolog) 0 unit SUBCUT Q4HR [facility]; Protocol Last Admin: 05/31/19 08:12 Dose: 8 units Insulin Glargine (Lantus Solostar) 10 units SUBCUT DAILY [facility] Last Admin: 05/31/19 08:50 Dose: 10 units Levothyroxine Sodium (Levothyroxine) 112 mcg PO ACBREAKFAST [facility] Last Admin: 05/31/19 06:34 Dose: 112 mcg Levothyroxine Sodium (Levothyroxine) 25 mcg PO ACBREAKFAST [facility] Last Admin: 05/31/19 06:35 Dose: 25 mcg Lorazepam (Ativan) 1 mg PO TID PRN PRN Reason: Anxiety Last Admin: 05/29/19 21:55 Dose: 1 mg Morphine Sulfate (Morphine) 2 mg IVPUSH Q4H PRN PRN Reason: Pain Last Admin: 05/31/19 05:42 Dose: 2 mg Ondansetron HCl (Zofran Odt) 4 mg PO Q4H PRN PRN Reason: nausea, able to take PO Last Admin: 05/31/19 08:50 Dose: 4 mg Rosuvastatin Calcium (Crestor) 5 mg PO BEDTIME [facility] Last Admin: 05/30/19 20:39 Dose: 5 mg Tizanidine HCl (Zanaflex) 4 mg PO BID [facility] Last Admin: 05/31/19 08:50 Dose: 4 mg Discontinued Medications Calcium Gluconate (Calcium Gluconate) 2 gm IV ONETIME ONE Stop: 05/29/19 10:24 Last Admin: 05/29/19 10:57 Dose: 2 gm Diphenhydramine HCl (Benadryl) 25 mg IVPUSH ONETIME ONE Stop: 05/30/19 00:37 Last Admin: 05/30/19 00:53 Dose: 25 mg Diphenhydramine HCl (Benadryl) 25 mg PO ONETIME ONE Stop: 05/30/19 20:34 Last Admin: 05/30/19 20:39 Dose: 25 mg Sodium Chloride (Normal Saline) 1,000 mls @ 999 mls/hr IV BOLUS ONE Stop: 05/28/19 15:27 Last Admin: 05/28/19 15:05 Dose: 999 mls/hr Insulin Human Regular 100 unit (/ Sodium Chloride) 100 mls @ 5 mls/hr IV TITRATE PIPPA; Protocol Last Titration: 05/30/19 07:56 Dose: 1.5 unit/hr, 1.5 mls/hr Sodium Chloride (Normal Saline) 1,000 mls @ 999 mls/hr IV STAT ONE Stop: 05/28/19 16:59 Last Admin: 05/28/19 16:18 Dose: 999 mls/hr Potassium Chloride 20 meq/ (Premix) 50 mls @ 25 mls/hr IV ONETIME STA Stop: 05/28/19 19:03 Last Admin: 05/28/19 19:51 Dose: Not Given Potassium Chloride/Sodium Chloride (Normal Saline With 20 Meq Kcl) 1,000 mls @ 999 mls/hr IV ASDIRECTED PIPPA Magnesium Sulfate 2 gm/ Premix 50 mls @ 25 mls/hr IV ONETIME ONE Stop: 05/28/19 19:17 Last Admin: 05/28/19 18:45 Dose: 25 mls/hr Potassium Chloride/Sodium Chloride (Normal Saline With 20 Meq Kcl) 1,000 mls @ 999 mls/hr IV ASDIRECTED PIPPA Dextrose/Sodium Chloride (Dextrose 5%-Normal Saline) 1,000 mls @ 125 mls/hr IV ASDIRECTED PIPPA Last Admin: 05/29/19 03:42 Dose: 125 mls/hr Sodium Chloride (Normal Saline) 1,000 mls @ 999 mls/hr IV ASDIRECTED [facility] Stop: 05/29/19 21:01 Last Admin: 05/28/19 22:14 Dose: 999 mls/hr Sodium Phosphate 30 mmole/ (Sodium Chloride) 260 mls @ 86 mls/hr IV ONETIME ONE Stop: 05/28/19 23:16 Last Admin: 05/28/19 21:20 Dose: 86 mls/hr Potassium Chloride 40 meq/ (Premix) 100 mls @ 50 mls/hr IV ONETIME ONE Stop: 05/29/19 01:33 Last Admin: 05/28/19 23:50 Dose: 50 mls/hr Potassium Chloride 40 meq/ (Premix) 100 mls @ 25 mls/hr IV ONETIME ONE Stop: 05/29/19 07:35 Last Admin: 05/29/19 03:42 Dose: 25 mls/hr Dextrose/Sodium Chloride (Dextrose 5%-1/2 Ns) 1,000 mls @ 125 mls/hr [facility] Last Admin: 05/29/19 10:24 Dose: 125 mls/hr Potassium Chloride 20 meq/ (Premix) 50 mls @ 25 mls/hr IV ONETIME ONE Stop: 05/29/19 12:59 Last Admin: 05/29/19 11:36 Dose: 25 mls/hr Magnesium Sulfate 2 gm/ Premix 50 mls @ 50 mls/hr IV ONETIME ONE Stop: 05/29/19 11:24 Last Admin: 05/29/19 11:17 Dose: 50 mls/hr Potassium Phosphate 15 mmole/ (Sodium Chloride) 255 mls @ 85 mls/hr IV ONETIME ONE Stop: 05/29/19 15:59 Last Admin: 05/29/19 12:59 Dose: 85 mls/hr Potassium Chloride 20 meq/ (Premix) 50 mls @ 25 mls/hr IV ONETIME ONE Stop: 05/29/19 17:48 Last Admin: 05/29/19 16:48 Dose: 25 mls/hr Potassium Chloride/Dextrose/Sod Cl (D5 1/2 Ns W/ 20 Meq/L Kcl) 1,000 mls @ 100 mls/hr [facility] Last Admin: 05/30/19 06:32 Dose: 100 mls/hr Potassium Chloride (Kcl 40 Meq In Water 100 Ml) 100 mls @ 25 mls/hr IV ONETIME ONE Stop: 05/30/19 00:14 Last Admin: 05/29/19 20:43 Dose: 25 mls/hr Potassium Chloride 40 meq/ (Premix) 100 mls @ 50 mls/hr IV ONETIME ONE Stop: 05/30/19 02:29 Last Admin: 05/30/19 00:51 Dose: 50 mls/hr Sodium Phosphate 40 mmole/ (Sodium Chloride) 263.3333 mls @ 43.889 mls/hr IV ONETIME ONE Stop: 05/30/19 15:44 Last Admin: 05/30/19 09:58 Dose: 43.889 mls/hr Ketorolac Tromethamine (Toradol) 30 mg IVPUSH ONETIME ONE Stop: 05/28/19 14:40 Last Admin: 05/28/19 15:05 Dose: Not Given Levetiracetam (Keppra) 500 mg PO BID PIPPA Morphine Sulfate (Morphine) 2 mg IVPUSH ONETIME ONE Stop: 05/28/19 15:44 Last Admin: 05/28/19 15:55 Dose: Not Given Morphine Sulfate (Morphine) 15 mg PO Q4H PRN PRN Reason: Pain Last Admin: 05/28/19 18:43 Dose: 15 mg Non-Formulary Medication (Levothyroxine) 137 mcg PO ACBREAKFAST PIPPA Non-Formulary Medication (Morphine Sulfate/Naltrexone [Embeda Er 60-2.4 Mg Capsule]) 1 each PO Q12HR PIPPA Non-Formulary Medication (Rosuvastatin) 5 mg PO BEDTIME PIPPA Last Admin: 05/28/19 20:19 Dose: Not Given Ondansetron HCl (Zofran) Confirm Administered Dose 4 mg .ROUTE .STK-MED ONE Stop: 05/28/19 14:23 Last Admin: 05/28/19 14:31 Dose: Not Given Ondansetron HCl (Zofran) 4 mg IVPUSH ONETIME ONE Stop: 05/28/19 14:32 Last Admin: 05/28/19 15:05 Dose: 4 mg Ondansetron HCl (Zofran) 4 mg IVPUSH ONETIME ONE Stop: 05/28/19 23:40 Last Admin: 05/28/19 23:48 Dose: 4 mg Ondansetron HCl (Zofran) 4 mg IVPUSH ONETIME ONE Stop: 05/29/19 03:37 Last Admin: 05/29/19 03:42 Dose: 4 mg Ondansetron HCl (Zofran) 4 mg IVPUSH ONETIME ONE Stop: 05/30/19 00:42 Last Admin: 05/30/19 00:59 Dose: 4 mg Potassium Chloride (Potassium Chloride) 40 meq PO ONETIME ONE Stop: 05/28/19 20:01 Last Admin: 05/28/19 21:06 Dose: Not Given Potassium Chloride (Klor-Con M20) 20 meq PO ONETIME ONE Stop: 05/30/19 16:47 Last Admin: 05/30/19 18:35 Dose: 20 meq Promethazine HCl (Phenergan) 25 mg PO ONETIME ONE Stop: 05/30/19 10:10 Last Admin: 05/30/19 12:00 Dose: 25 mg - Exam General: Alert, Oriented, Cooperative, Mild Distress Lungs: Clear to Auscultation, Normal Respiratory Effort Cardiovascular: Regular Rate, Regular Rhythm GI/Abdominal Exam: Normal Bowel Sounds, Soft, Non-Tender, No Distention Extremities: No Pedal Edema - Problem List Review Problem List Initiated/Reviewed/Updated: Yes - My Orders Last 24 Hours: My Active Orders 05/31/19 10:30 BASIC METABOLIC PANEL,BMP [CHEM] Q4H 05/31/19 14:30 BASIC METABOLIC PANEL,BMP [CHEM] Q4H 05/31/19 18:30 BASIC METABOLIC PANEL,BMP [CHEM] Q4H 05/31/19 22:30 BASIC METABOLIC PANEL,BMP [CHEM] Q4H - Plan Plan:: Assessment: 1. Diabetic ketoacidosis. 2. Nausea. 3. Chronic back pain. Plan: 1. For DKA, patient has been transitioned to subcutaneous insulin and sliding scale yesterday. IV fluids have been discontinued. She has not been eating very well secondary to nausea. Will continue to encourage PO intake. Appreciate further recommendations and management per eICU. 2. For nausea, will start Phenergan prn. 3. For pain, will decrease morphine to 1 mg IV q4h prn. <Mirella Warren - Last Filed: 06/01/19 13:25> - Patient Data Vitals - Most Recent: Last Vital Signs Temp 36.8 C 05/31/19 17:00 Pulse 80 05/31/19 12:00 Resp 15 05/31/19 17:00 BP 133/79 05/31/19 17:00 Pulse Ox 96 05/31/19 17:00 Lab Results Last 24 Hours: Laboratory Results - last 24 hr 05/31/19 05/31/19 Range/Units 14:40 16:14 Sodium 138 (136-145) mmol/L Potassium 3.8 (3.5-5.1) mmol/L Chloride 104 (98-107) mmol/L Carbon Dioxide 22.2 (21.0-32.0) mmol/L BUN 7 (7.0-18.0) mg/dL Creatinine 0.7 (0.6-1.0) mg/dL Est Cr Clr Drug Dosing 85.18 mL/min Estimated GFR (MDRD) > 60.0 ml/min Glucose 151 H (74-106) mg/dL POC Glucose 174 H (60-110) mg/dL Calcium 8.5 (8.5-10.1) mg/dL Med Orders - Current: Current Medications Discontinued Medications Calcium Gluconate (Calcium Gluconate) 2 gm IV ONETIME ONE Stop: 05/29/19 10:24 Last Admin: 05/29/19 10:57 Dose: 2 gm Diphenhydramine HCl (Benadryl) 25 mg IVPUSH ONETIME ONE Stop: 05/30/19 00:37 Last Admin: 05/30/19 00:53 Dose: 25 mg Diphenhydramine HCl (Benadryl) 25 mg PO ONETIME ONE Stop: 05/30/19 20:34 Last Admin: 05/30/19 20:39 Dose: 25 mg Fluoxetine HCl (Prozac) 40 mg PO DAILY PIPPA Last Admin: 05/31/19 08:50 Dose: 40 mg Sodium Chloride (Normal Saline) 1,000 mls @ 999 mls/hr IV BOLUS ONE Stop: 05/28/19 15:27 Last Admin: 05/28/19 15:05 Dose: 999 mls/hr Insulin Human Regular 100 unit (/ Sodium Chloride) 100 mls @ 5 mls/hr IV TITRATE [facility]; Protocol Last Titration: 05/30/19 07:56 Dose: 1.5 unit/hr, 1.5 mls/hr Sodium Chloride (Normal Saline) 1,000 mls @ 999 mls/hr IV STAT ONE Stop: 05/28/19 16:59 Last Admin: 05/28/19 16:18 Dose: 999 mls/hr Potassium Chloride 20 meq/ (Premix) 50 mls @ 25 mls/hr IV ONETIME STA Stop: 05/28/19 19:03 Last Admin: 05/28/19 19:51 Dose: Not Given Potassium Chloride/Sodium Chloride (Normal Saline With 20 Meq Kcl) 1,000 mls @ 999 mls/hr IV ASDIRECTED PIPPA Magnesium Sulfate 2 gm/ Premix 50 mls @ 25 mls/hr IV ONETIME ONE Stop: 05/28/19 19:17 Last Admin: 05/28/19 18:45 Dose: 25 mls/hr Potassium Chloride/Sodium Chloride (Normal Saline With 20 Meq Kcl) 1,000 mls @ 999 mls/hr IV ASDIRECTED PIPPA Dextrose/Sodium Chloride (Dextrose 5%-Normal Saline) 1,000 mls @ 125 mls/hr IV ASDIRECTED PIPPA Last Admin: 05/29/19 03:42 Dose: 125 mls/hr Sodium Chloride (Normal Saline) 1,000 mls @ 999 mls/hr IV ASDIRECTED [facility] Stop: 05/29/19 21:01 Last Admin: 05/28/19 22:14 Dose: 999 mls/hr Sodium Phosphate 30 mmole/ (Sodium Chloride) 260 mls @ 86 mls/hr IV ONETIME ONE Stop: 05/28/19 23:16 Last Admin: 05/28/19 21:20 Dose: 86 mls/hr Levetiracetam 500 mg/ Dextrose (/Water) 105 mls @ 420 mls/hr IV Q12H [facility] Last Admin: 05/31/19 09:01 Dose: 420 mls/hr Potassium Chloride 40 meq/ (Premix) 100 mls @ 50 mls/hr IV ONETIME ONE Stop: 05/29/19 01:33 Last Admin: 05/28/19 23:50 Dose: 50 mls/hr Potassium Chloride 40 meq/ (Premix) 100 mls @ 25 mls/hr IV ONETIME ONE Stop: 05/29/19 07:35 Last Admin: 05/29/19 03:42 Dose: 25 mls/hr Dextrose/Sodium Chloride (Dextrose 5%-1/2 Ns) 1,000 mls @ 125 mls/hr IV ASDIRECTED [facility] Last Admin: 05/29/19 10:24 Dose: 125 mls/hr Potassium Chloride 20 meq/ (Premix) 50 mls @ 25 mls/hr IV ONETIME ONE Stop: 05/29/19 12:59 Last Admin: 05/29/19 11:36 Dose: 25 mls/hr Magnesium Sulfate 2 gm/ Premix 50 mls @ 50 mls/hr IV ONETIME ONE Stop: 05/29/19 11:24 Last Admin: 05/29/19 11:17 Dose: 50 mls/hr Potassium Phosphate 15 mmole/ (Sodium Chloride) 255 mls @ 85 mls/hr IV ONETIME ONE Stop: 05/29/19 15:59 Last Admin: 05/29/19 12:59 Dose: 85 mls/hr Potassium Chloride 20 meq/ (Premix) 50 mls @ 25 mls/hr IV ONETIME ONE Stop: 05/29/19 17:48 Last Admin: 05/29/19 16:48 Dose: 25 mls/hr Potassium Chloride/Dextrose/Sod Cl (D5 1/2 Ns W/ 20 Meq/L Kcl) 1,000 mls @ 100 mls/hr IV ASDIRECTED [facility] Last Admin: 05/30/19 06:32 Dose: 100 mls/hr Potassium Chloride (Kcl 40 Meq In Water 100 Ml) 100 mls @ 25 mls/hr IV ONETIME ONE Stop: 05/30/19 00:14 Last Admin: 05/29/19 20:43 Dose: 25 mls/hr Potassium Chloride 40 meq/ (Premix) 100 mls @ 50 mls/hr IV ONETIME ONE Stop: 05/30/19 02:29 Last Admin: 05/30/19 00:51 Dose: 50 mls/hr Sodium Phosphate 40 mmole/ (Sodium Chloride) 263.3333 mls @ 43.889 mls/hr IV ONETIME ONE Stop: 05/30/19 15:44 Last Admin: 05/30/19 09:58 Dose: 43.889 mls/hr Sodium Chloride (Normal Saline) 500 mls @ 999.99 mls/hr IV BOLUS ONE Stop: 05/31/19 11:59 Last Admin: 05/31/19 11:29 Dose: 999.99 mls/hr Insulin Aspart (Novolog) 0 unit SUBCUT Q4HR [facility]; Protocol Last Admin: 05/31/19 16:18 Dose: 3 units Insulin Glargine (Lantus Solostar) 10 units SUBCUT DAILY [facility] Last Admin: 05/31/19 08:50 Dose: 10 units Insulin Glargine (Lantus Solostar) 12 units SUBCUT BID [facility] Ketorolac Tromethamine (Toradol) 30 mg IVPUSH ONETIME ONE Stop: 05/28/19 14:40 Last Admin: 05/28/19 15:05 Dose: Not Given Levetiracetam (Keppra) 500 mg PO BID [facility] Levothyroxine Sodium (Levothyroxine) 112 mcg PO ACBREAKFAST [facility] Last Admin: 05/31/19 06:34 Dose: 112 mcg Levothyroxine Sodium (Levothyroxine) 25 mcg PO ACBREAKFAST [facility] Last Admin: 05/31/19 06:35 Dose: 25 mcg Lorazepam (Ativan) 1 mg PO TID PRN PRN Reason: Anxiety Last Admin: 05/29/19 21:55 Dose: 1 mg Morphine Sulfate (Morphine) 2 mg IVPUSH ONETIME ONE Stop: 05/28/19 15:44 Last Admin: 05/28/19 15:55 Dose: Not Given Morphine Sulfate (Morphine) 15 mg PO Q4H PRN PRN Reason: Pain Last Admin: 05/28/19 18:43 Dose: 15 mg Morphine Sulfate (Morphine) 2 mg IVPUSH Q4H PRN PRN Reason: Pain Last Admin: 05/31/19 05:42 Dose: 2 mg Morphine Sulfate (Morphine) 1 mg IVPUSH Q4H PRN PRN Reason: Pain Last Admin: 05/31/19 14:23 Dose: 1 mg Non-Formulary Medication (Levothyroxine) 137 mcg PO ACBREAKFAST [facility] Non-Formulary Medication (Morphine Sulfate/Naltrexone [Embeda Er 60-2.4 Mg Capsule]) 1 each PO Q12HR [facility] Non-Formulary Medication (Rosuvastatin) 5 mg PO BEDTIME [facility] Last Admin: 05/28/19 20:19 Dose: Not Given Ondansetron HCl (Zofran) Confirm Administered Dose 4 mg .ROUTE .STK-MED ONE Stop: 05/28/19 14:23 Last Admin: 05/28/19 14:31 Dose: Not Given Ondansetron HCl (Zofran) 4 mg IVPUSH ONETIME ONE Stop: 05/28/19 14:32 Last Admin: 05/28/19 15:05 Dose: 4 mg Ondansetron HCl (Zofran Odt) 4 mg PO Q4H PRN PRN Reason: nausea, able to take PO Last Admin: 05/31/19 08:50 Dose: 4 mg Ondansetron HCl (Zofran) 4 mg IVPUSH ONETIME ONE Stop: 05/28/19 23:40 Last Admin: 05/28/19 23:48 Dose: 4 mg Ondansetron HCl (Zofran) 4 mg IVPUSH ONETIME ONE Stop: 05/29/19 03:37 Last Admin: 05/29/19 03:42 Dose: 4 mg Ondansetron HCl (Zofran) 4 mg IVPUSH ONETIME ONE Stop: 05/30/19 00:42 Last Admin: 05/30/19 00:59 Dose: 4 mg Potassium Chloride (Potassium Chloride) 40 meq PO ONETIME ONE Stop: 05/28/19 20:01 Last Admin: 05/28/19 21:06 Dose: Not Given Potassium Chloride (Klor-Con M20) 20 meq PO ONETIME ONE Stop: 05/30/19 16:47 Last Admin: 05/30/19 18:35 Dose: 20 meq Promethazine HCl (Phenergan) 25 mg PO ONETIME ONE Stop: 05/30/19 10:10 Last Admin: 05/30/19 12:00 Dose: 25 mg Promethazine HCl (Phenergan) 25 mg PO Q4H ONE Stop: 05/31/19 09:50 Last Admin: 05/31/19 10:12 Dose: 25 mg Promethazine HCl (Phenergan) 25 mg PO Q4H PRN PRN Reason: Nausea Last Admin: 05/31/19 14:06 Dose: 25 mg Rosuvastatin Calcium (Crestor) 5 mg PO BEDTIME PIPPA Last Admin: 05/30/19 20:39 Dose: 5 mg Tizanidine HCl (Zanaflex) 4 mg PO BID PIPPA Last Admin: 05/31/19 08:50 Dose: 4 mg - Plan Plan:: I have seen and evaluated the patient and agree with the residents note unless specified in my note
[2019-05-31] MEDS ORDERED: Promethazine 25 MG Tab PO ONE (09:49)
[2019-05-31] MEDS ORDERED: Promethazine 25 MG Tab PO PRN (09:52)
--- NOTE | 2019-05-31 10:01 | PN ---
THC Physician - Brief Progress [id number]/30/2019 09:45[facility] Kavon Gordon, [place] - MWN (SALENAN) - MWN ICUD ALEXSANDER DUMONTDate of Service 05/31/2019 09:45HPI/Events of Note 28 year old female with DKABlood sugars remain elevated despite sliding scale and Lantus.Iss ues exist with obtaining home d/c medications/ insulin.On screen 28 year old female in [place]/W Brneda VILLA at bedside.Increase Lantus to 12U BIDand increase sliding scale to Aggressive/ high coverage.Grzegorz nue to replace / Replete lytesInterventions Major-Electrolyte abnormality - evaluation and management Minor-Clinical assessment - ordering diagnostic tests, Communication with other healthcare providers and/or family, Routine modifications to care plan (e.g. PRN medications for pain, fever)Electronicall y Signed by: GALILEO RALPH) on 05/31/2019 10:01
[2019-05-31 11:04] LABS: BLOOD UREA NITROGEN,BUN 6 mg/dL (7.0-18.0); CARBON DIOXIDE,CO2 17.9 mmol/L (21.0-32.0); CHLORIDE,CL 102 mmol/L (98-107); GLUCOSE RANDOM 179 mg/dL (74-106); SODIUM,NA 139 mmol/L (136-145)
[2019-05-31] MEDS ORDERED: Sodium Chloride 0.9% 500 ML IV ONE (11:30)
[2019-05-31 12:04] VITALS: PULSE 80
[2019-05-31 15:07] LABS: BLOOD UREA NITROGEN,BUN 7 mg/dL (7.0-18.0); CARBON DIOXIDE,CO2 22.2 mmol/L (21.0-32.0); CHLORIDE,CL 104 mmol/L (98-107); GLUCOSE RANDOM 151 mg/dL (74-106); POTASSIUM,K 3.8 mmol/L (3.5-5.1); SODIUM,NA 138 mmol/L (136-145)
--- NOTE | 2019-05-31 16:44 | PCM.DCSUM1 ---
<Shayan Pollard - Last Filed: 05/31/19 16:44> Discharge Summary - Hospital Course Free Text/Narrative:: 28-year-old female admitted for diabetic ketoacidosis. She has a PMH of brittle type 1 diabetes and has had multiple hospital admissions for DKA. On admission, her blood glucose was >600. Patient reported that she had been taken her diabetes medications as prescribed and had not missed any doses. She denies being sick recently. CXR negative. UA negative for infection. Dr. Casey consulted for central line insertion and reliable peripheral IV access was unobtainable. Patient treated for DKA per DKA protocol. Patient successfully transitioned to subcutaneous insulin. Patient discharged in stable condition and tolerating PO diet. Central line removed prior to discharge. Advised to follow-up with PCP. - Discharge Data Discharge Date: 05/31/19 Discharge Disposition: Home, Self-Care 01 Condition: Stable - Referral to Home Health Primary Care Physician: Maynor Black MD - Patient Summary/Data Consults: Consultations 05/28/19 17:32 Consult to Physician [CONS] Stat - Patient Instructions Diet: Diabetic Diet Activity: As Tolerated Notify Provider of: Fever, Increased Pain, Swelling and Redness, Drainage, Nausea and/or Vomiting - Discharge Plan *PRESCRIPTION DRUG MONITORING PROGRAM REVIEWED*: Not Applicable *COPY OF PRESCRIPTION DRUG MONITORING REPORT IN PATIENT DEWEY: Not Applicable Home Medications: Home Meds FLUoxetine HCl [Fluoxetine HCl] 40 mg PO DAILY 01/27/19 [History] Insulin Degludec [Tresiba] 26 unit SQ DAILY 01/27/19 [History] LORazepam 1 mg PO TID 01/27/19 [History] Levothyroxine [Levothroid] 137 mcg PO ACBREAKFAST 01/27/19 [History] Morphine 15 mg PO Q4H PRN 01/27/19 [History] Rosuvastatin [Crestor] 5 mg PO BEDTIME 01/27/19 [History] levETIRAcetam [Keppra] 500 mg PO BID 01/27/19 [History] tiZANidine [Zanaflex] 4 mg PO BID 01/27/19 [History] Insuln Asp Prot/Insulin Aspart [NovoLOG Mix 70-30] 0 unit SQ ASDIRECTED [History] Morphine Sulfate/Naltrexone [Embeda ER 60-2.4 mg Capsule] 1 each PO Q12HR [History] Insulin Aspart [NovoLOG] 0 unit SUBCUT Q4HR pen 05/31/19 [Rx] Insulin Glarg,Human.Rec.Analog [Lantus Solostar] 12 units SUBCUT BID pen [Rx] Forms: ED Department Discharge Referrals: Maynor Black MD [Primary Care Provider] - - Discharge Summary/Plan Comment DC Time >30 min.: No - Patient Data Vitals - Most Recent: Last Vital Signs Temp 98.6 F 05/31/19 08:00 Pulse 80 05/31/19 12:00 Resp 17 05/31/19 14:00 BP 115/70 05/31/19 14:00 Pulse Ox 98 05/31/19 14:00 Weight - Most Recent: 50.1 kg I&O - Last 24 hours: Intake & Output 05/31/19 05/31/19 05/31/19 06:59 14:59 22:59 Intake Total 555 1085 Output Total 950 400 Balance -395 685 Lab Results - Last 24 hrs: Laboratory Results - last 24 hr 05/30/19 05/30/19 05/30/19 Range/Units 18:33 19:52 22:32 WBC (4.0-11.0) K/uL RBC (4.30-5.90) M/uL Hgb (12.0-16.0) g/dL Hct (36.0-46.0) % MCV (80.0-98.0) fL MCH (27.0-32.0) pg MCHC (31.0-37.0) g/dL RDW Std Deviation (28.0-62.0) fl RDW Coeff of Zak (11.0-15.0) % Plt Count (150-400) K/uL MPV (7.40-12.00) fL Neut % (Auto) (48.0-80.0) % Lymph % (Auto) (16.0-40.0) % [place] % (Auto) (0.0-15.0) % Eos % (Auto) (0.0-7.0) % Baso % (Auto) (0.0-1.5) % Neut # (Auto) (1.4-5.7) K/uL Lymph # (Auto) (0.6-2.4) K/uL [place] # (Auto) (0.0-0.8) K/uL Eos # (Auto) (0.0-0.7) K/uL Baso # (Auto) (0.0-0.1) K/uL Nucleated RBC % /100WBC Nucleated RBCs # K/uL Sodium 141 141 (136-145) mmol/L Potassium 3.5 4.0 (3.5-5.1) mmol/L Chloride 105 106 (98-107) mmol/L Carbon Dioxide 21.8 21.2 (21.0-32.0) mmol/L Anion Gap 17.8 BUN 4 L 4 L (7.0-18.0) mg/dL Creatinine 0.6 0.6 (0.6-1.0) mg/dL Est Cr Clr Drug Dosing 99.37 99.37 mL/min Estimated GFR (MDRD) > 60.0 > 60.0 ml/min BUN/Creatinine Ratio 6.66 Glucose 161 H 151 H (74-106) mg/dL POC Glucose 186 H (60-110) mg/dL Calcium 8.2 L 8.6 (8.5-10.1) mg/dL Phosphorus 2.6 (2.6-4.7) mg/dL Magnesium 1.9 (1.8-2.4) mg/dL Albumin 3.2 L (3.4-5.0) g/dL 05/31/19 05/31/19 05/31/19 Range/Units 00:00 02:40 04:03 WBC (4.0-11.0) K/uL RBC (4.30-5.90) M/uL Hgb (12.0-16.0) g/dL Hct (36.0-46.0) % MCV (80.0-98.0) fL MCH (27.0-32.0) pg MCHC (31.0-37.0) g/dL RDW Std Deviation (28.0-62.0) fl RDW Coeff of Zak (11.0-15.0) % Plt Count (150-400) K/uL MPV (7.40-12.00) fL Neut % (Auto) (48.0-80.0) % Lymph % (Auto) (16.0-40.0) % [place] % (Auto) (0.0-15.0) % Eos % (Auto) (0.0-7.0) % Baso % (Auto) (0.0-1.5) % Neut # (Auto) (1.4-5.7) K/uL Lymph # (Auto) (0.6-2.4) K/uL [place] # (Auto) (0.0-0.8) K/uL Eos # (Auto) (0.0-0.7) K/uL Baso # (Auto) (0.0-0.1) K/uL Nucleated RBC % /100WBC Nucleated RBCs # K/uL Sodium 140 (136-145) mmol/L Potassium 3.9 (3.5-5.1) mmol/L Chloride 105 (98-107) mmol/L Carbon Dioxide 22.8 (21.0-32.0) mmol/L Anion Gap BUN 4 L (7.0-18.0) mg/dL Creatinine 0.6 (0.6-1.0) mg/dL Est Cr Clr Drug Dosing 99.37 mL/min Estimated GFR (MDRD) > 60.0 ml/min BUN/Creatinine Ratio Glucose 150 H (74-106) mg/dL POC Glucose 266 H 227 H (60-110) mg/dL Calcium 8.8 (8.5-10.1) mg/dL Phosphorus (2.6-4.7) mg/dL Magnesium (1.8-2.4) mg/dL Albumin (3.4-5.0) g/dL 05/31/19 05/31/19 05/31/19 Range/Units 06:33 06:33 08:06 WBC 7.11 (4.0-11.0) K/uL RBC 4.37 (4.30-5.90) M/uL Hgb 11.8 L (12.0-16.0) g/dL Hct 36.0 (36.0-46.0) % MCV 82.4 (80.0-98.0) fL MCH 27.0 (27.0-32.0) pg MCHC 32.8 (31.0-37.0) g/dL RDW Std Deviation 54.8 (28.0-62.0) fl RDW Coeff of Zak 18 H (11.0-15.0) % Plt Count 391 (150-400) K/uL MPV 10.30 (7.40-12.00) fL Neut % (Auto) 57.1 (48.0-80.0) % Lymph % (Auto) 33.3 (16.0-40.0) % [place] % (Auto) 8.2 (0.0-15.0) % Eos % (Auto) 0.8 (0.0-7.0) % Baso % (Auto) 0.6 (0.0-1.5) % Neut # (Auto) 4.1 (1.4-5.7) K/uL Lymph # (Auto) 2.4 (0.6-2.4) K/uL [place] # (Auto) 0.6 (0.0-0.8) K/uL Eos # (Auto) 0.1 (0.0-0.7) K/uL Baso # (Auto) 0.0 (0.0-0.1) K/uL Nucleated RBC % 0.0 /100WBC Nucleated RBCs # 0 K/uL Sodium 139 (136-145) mmol/L Potassium 3.7 (3.5-5.1) mmol/L Chloride 104 (98-107) mmol/L Carbon Dioxide 20.2 L (21.0-32.0) mmol/L Anion Gap BUN 6 L (7.0-18.0) mg/dL Creatinine 0.7 (0.6-1.0) mg/dL Est Cr Clr Drug Dosing 85.18 mL/min Estimated GFR (MDRD) > 60.0 ml/min BUN/Creatinine Ratio Glucose 194 H (74-106) mg/dL POC Glucose 348 H (60-110) mg/dL Calcium 8.7 (8.5-10.1) mg/dL Phosphorus (2.6-4.7) mg/dL Magnesium (1.8-2.4) mg/dL Albumin (3.4-5.0) g/dL 05/31/19 05/31/19 05/31/19 Range/Units 10:39 11:53 12:34 WBC (4.0-11.0) K/uL RBC (4.30-5.90) M/uL Hgb (12.0-16.0) g/dL Hct (36.0-46.0) % MCV (80.0-98.0) fL MCH (27.0-32.0) pg MCHC (31.0-37.0) g/dL RDW Std Deviation (28.0-62.0) fl RDW Coeff of Zak (11.0-15.0) % Plt Count (150-400) K/uL MPV (7.40-12.00) fL Neut % (Auto) (48.0-80.0) % Lymph % (Auto) (16.0-40.0) % [place] % (Auto) (0.0-15.0) % Eos % (Auto) (0.0-7.0) % Baso % (Auto) (0.0-1.5) % Neut # (Auto) (1.4-5.7) K/uL Lymph # (Auto) (0.6-2.4) K/uL [place] # (Auto) (0.0-0.8) K/uL Eos # (Auto) (0.0-0.7) K/uL Baso # (Auto) (0.0-0.1) K/uL Nucleated RBC % /100WBC Nucleated RBCs # K/uL Sodium 139 (136-145) mmol/L Potassium 4.0 (3.5-5.1) mmol/L Chloride 102 (98-107) mmol/L Carbon Dioxide 17.9 L (21.0-32.0) mmol/L Anion Gap BUN 6 L (7.0-18.0) mg/dL Creatinine 0.9 (0.6-1.0) mg/dL Est Cr Clr Drug Dosing 66.25 mL/min Estimated GFR (MDRD) > 60.0 ml/min BUN/Creatinine Ratio Glucose 179 H (74-106) mg/dL POC Glucose 203 H 176 H (60-110) mg/dL Calcium 8.7 (8.5-10.1) mg/dL Phosphorus (2.6-4.7) mg/dL Magnesium (1.8-2.4) mg/dL Albumin (3.4-5.0) g/dL 05/31/19 05/31/19 Range/Units 14:40 16:14 WBC (4.0-11.0) K/uL RBC (4.30-5.90) M/uL Hgb (12.0-16.0) g/dL Hct (36.0-46.0) % MCV (80.0-98.0) fL MCH (27.0-32.0) pg MCHC (31.0-37.0) g/dL RDW Std Deviation (28.0-62.0) fl RDW Coeff of Zak (11.0-15.0) % Plt Count (150-400) K/uL MPV (7.40-12.00) fL Neut % (Auto) (48.0-80.0) % Lymph % (Auto) (16.0-40.0) % [place] % (Auto) (0.0-15.0) % Eos % (Auto) (0.0-7.0) % Baso % (Auto) (0.0-1.5) % Neut # (Auto) (1.4-5.7) K/uL Lymph # (Auto) (0.6-2.4) K/uL [place] # (Auto) (0.0-0.8) K/uL Eos # (Auto) (0.0-0.7) K/uL Baso # (Auto) (0.0-0.1) K/uL Nucleated RBC % /100WBC Nucleated RBCs # K/uL Sodium 138 (136-145) mmol/L Potassium 3.8 (3.5-5.1) mmol/L Chloride 104 (98-107) mmol/L Carbon Dioxide 22.2 (21.0-32.0) mmol/L Anion Gap BUN 7 (7.0-18.0) mg/dL Creatinine 0.7 (0.6-1.0) mg/dL Est Cr Clr Drug Dosing 85.18 mL/min Estimated GFR (MDRD) > 60.0 ml/min BUN/Creatinine Ratio Glucose 151 H (74-106) mg/dL POC Glucose 174 H (60-110) mg/dL Calcium 8.5 (8.5-10.1) mg/dL Phosphorus (2.6-4.7) mg/dL Magnesium (1.8-2.4) mg/dL Albumin (3.4-5.0) g/dL Med Orders - Current: Current Medications Fluoxetine HCl (Prozac) 40 mg PO DAILY [facility] Last Admin: 05/31/19 08:50 Dose: 40 mg Levetiracetam 500 mg/ Dextrose (/Water) 105 mls @ 420 mls/hr IV Q12H [facility] Last Admin: 05/31/19 09:01 Dose: 420 mls/hr Insulin Aspart (Novolog) 0 unit SUBCUT Q4HR [facility]; Protocol Last Admin: 05/31/19 16:18 Dose: 3 units Insulin Glargine (Lantus Solostar) 12 units SUBCUT BID [facility] Levothyroxine Sodium (Levothyroxine) 112 mcg PO ACBREAKFAST [facility] Last Admin: 05/31/19 06:34 Dose: 112 mcg Levothyroxine Sodium (Levothyroxine) 25 mcg PO ACBREAKFAST [facility] Last Admin: 05/31/19 06:35 Dose: 25 mcg Lorazepam (Ativan) 1 mg PO TID PRN PRN Reason: Anxiety Last Admin: 05/29/19 21:55 Dose: 1 mg Morphine Sulfate (Morphine) 1 mg IVPUSH Q4H PRN PRN Reason: Pain Last Admin: 05/31/19 14:23 Dose: 1 mg Ondansetron HCl (Zofran Odt) 4 mg PO Q4H PRN PRN Reason: nausea, able to take PO Last Admin: 05/31/19 08:50 Dose: 4 mg Promethazine HCl (Phenergan) 25 mg PO Q4H PRN PRN Reason: Nausea Last Admin: 05/31/19 14:06 Dose: 25 mg Rosuvastatin Calcium (Crestor) 5 mg PO BEDTIME [facility] Last Admin: 05/30/19 20:39 Dose: 5 mg Tizanidine HCl (Zanaflex) 4 mg PO BID [facility] Last Admin: 05/31/19 08:50 Dose: 4 mg Discontinued Medications Calcium Gluconate (Calcium Gluconate) 2 gm IV ONETIME ONE Stop: 05/29/19 10:24 Last Admin: 05/29/19 10:57 Dose: 2 gm Diphenhydramine HCl (Benadryl) 25 mg IVPUSH ONETIME ONE Stop: 05/30/19 00:37 Last Admin: 05/30/19 00:53 Dose: 25 mg Diphenhydramine HCl (Benadryl) 25 mg PO ONETIME ONE Stop: 05/30/19 20:34 Last Admin: 05/30/19 20:39 Dose: 25 mg Sodium Chloride (Normal Saline) 1,000 mls @ 999 mls/hr IV BOLUS ONE Stop: 05/28/19 15:27 Last Admin: 05/28/19 15:05 Dose: 999 mls/hr Insulin Human Regular 100 unit (/ Sodium Chloride) 100 mls @ 5 mls/hr IV TITRATE [facility]; Protocol Last Titration: 05/30/19 07:56 Dose: 1.5 unit/hr, 1.5 mls/hr Sodium Chloride (Normal Saline) 1,000 mls @ 999 mls/hr IV STAT ONE Stop: 05/28/19 16:59 Last Admin: 05/28/19 16:18 Dose: 999 mls/hr Potassium Chloride 20 meq/ (Premix) 50 mls @ 25 mls/hr IV ONETIME STA Stop: 05/28/19 19:03 Last Admin: 05/28/19 19:51 Dose: Not Given Potassium Chloride/Sodium Chloride (Normal Saline With 20 Meq Kcl) 1,000 mls @ 999 mls/hr IV ASDIRECTED [facility] Magnesium Sulfate 2 gm/ Premix 50 mls @ 25 mls/hr IV ONETIME ONE Stop: 05/28/19 19:17 Last Admin: 05/28/19 18:45 Dose: 25 mls/hr Potassium Chloride/Sodium Chloride (Normal Saline With 20 Meq Kcl) 1,000 mls @ 999 mls/hr IV ASDIRECTED [facility] Dextrose/Sodium Chloride (Dextrose 5%-Normal Saline) 1,000 mls @ 125 mls/hr IV ASDIRECTED [facility] Last Admin: 05/29/19 03:42 Dose: 125 mls/hr Sodium Chloride (Normal Saline) 1,000 mls @ 999 mls/hr IV ASDIRECTED [facility] Stop: 05/29/19 21:01 Last Admin: 05/28/19 22:14 Dose: 999 mls/hr Sodium Phosphate 30 mmole/ (Sodium Chloride) 260 mls @ 86 mls/hr IV ONETIME ONE Stop: 05/28/19 23:16 Last Admin: 05/28/19 21:20 Dose: 86 mls/hr Potassium Chloride 40 meq/ (Premix) 100 mls @ 50 mls/hr IV ONETIME ONE Stop: 05/29/19 01:33 Last Admin: 05/28/19 23:50 Dose: 50 mls/hr Potassium Chloride 40 meq/ (Premix) 100 mls @ 25 mls/hr IV ONETIME ONE Stop: 05/29/19 07:35 Last Admin: 05/29/19 03:42 Dose: 25 mls/hr Dextrose/Sodium Chloride (Dextrose 5%-1/2 Ns) 1,000 mls @ 125 mls/hr IV ASDIRECTED [facility] Last Admin: 05/29/19 10:24 Dose: 125 mls/hr Potassium Chloride 20 meq/ (Premix) 50 mls @ 25 mls/hr IV ONETIME ONE Stop: 05/29/19 12:59 Last Admin: 05/29/19 11:36 Dose: 25 mls/hr Magnesium Sulfate 2 gm/ Premix 50 mls @ 50 mls/hr IV ONETIME ONE Stop: 05/29/19 11:24 Last Admin: 05/29/19 11:17 Dose: 50 mls/hr Potassium Phosphate 15 mmole/ (Sodium Chloride) 255 mls @ 85 mls/hr IV ONETIME ONE Stop: 05/29/19 15:59 Last Admin: 05/29/19 12:59 Dose: 85 mls/hr Potassium Chloride 20 meq/ (Premix) 50 mls @ 25 mls/hr IV ONETIME ONE Stop: 05/29/19 17:48 Last Admin: 05/29/19 16:48 Dose: 25 mls/hr Potassium Chloride/Dextrose/Sod Cl (D5 1/2 Ns W/ 20 Meq/L Kcl) 1,000 mls @ 100 mls/hr IV ASDIRECTED [facility] Last Admin: 05/30/19 06:32 Dose: 100 mls/hr Potassium Chloride (Kcl 40 Meq In Water 100 Ml) 100 mls @ 25 mls/hr IV ONETIME ONE Stop: 05/30/19 00:14 Last Admin: 05/29/19 20:43 Dose: 25 mls/hr Potassium Chloride 40 meq/ (Premix) 100 mls @ 50 mls/hr IV ONETIME ONE Stop: 05/30/19 02:29 Last Admin: 05/30/19 00:51 Dose: 50 mls/hr Sodium Phosphate 40 mmole/ (Sodium Chloride) 263.3333 mls @ 43.889 mls/hr IV ONETIME ONE Stop: 05/30/19 15:44 Last Admin: 05/30/19 09:58 Dose: 43.889 mls/hr Sodium Chloride (Normal Saline) 500 mls @ 999.99 mls/hr IV BOLUS ONE Stop: 05/31/19 11:59 Last Admin: 05/31/19 11:29 Dose: 999.99 mls/hr Insulin Glargine (Lantus Solostar) 10 units SUBCUT DAILY [facility] Last Admin: 05/31/19 08:50 Dose: 10 units Ketorolac Tromethamine (Toradol) 30 mg IVPUSH ONETIME ONE Stop: 05/28/19 14:40 Last Admin: 05/28/19 15:05 Dose: Not Given Levetiracetam (Keppra) 500 mg PO BID [facility] Morphine Sulfate (Morphine) 2 mg IVPUSH ONETIME ONE Stop: 05/28/19 15:44 Last Admin: 05/28/19 15:55 Dose: Not Given Morphine Sulfate (Morphine) 15 mg PO Q4H PRN PRN Reason: Pain Last Admin: 05/28/19 18:43 Dose: 15 mg Morphine Sulfate (Morphine) 2 mg IVPUSH Q4H PRN PRN Reason: Pain Last Admin: 05/31/19 05:42 Dose: 2 mg Non-Formulary Medication (Levothyroxine) 137 mcg PO ACBREAKFAST [facility] Non-Formulary Medication (Morphine Sulfate/Naltrexone [Embeda Er 60-2.4 Mg Capsule]) 1 each PO Q12HR [facility] Non-Formulary Medication (Rosuvastatin) 5 mg PO BEDTIME [facility] Last Admin: 05/28/19 20:19 Dose: Not Given Ondansetron HCl (Zofran) Confirm Administered Dose 4 mg .ROUTE .STK-MED ONE Stop: 05/28/19 14:23 Last Admin: 05/28/19 14:31 Dose: Not Given Ondansetron HCl (Zofran) 4 mg IVPUSH ONETIME ONE Stop: 05/28/19 14:32 Last Admin: 05/28/19 15:05 Dose: 4 mg Ondansetron HCl (Zofran) 4 mg IVPUSH ONETIME ONE Stop: 05/28/19 23:40 Last Admin: 05/28/19 23:48 Dose: 4 mg Ondansetron HCl (Zofran) 4 mg IVPUSH ONETIME ONE Stop: 05/29/19 03:37 Last Admin: 05/29/19 03:42 Dose: 4 mg Ondansetron HCl (Zofran) 4 mg IVPUSH ONETIME ONE Stop: 05/30/19 00:42 Last Admin: 05/30/19 00:59 Dose: 4 mg Potassium Chloride (Potassium Chloride) 40 meq PO ONETIME ONE Stop: 05/28/19 20:01 Last Admin: 05/28/19 21:06 Dose: Not Given Potassium Chloride (Klor-Con M20) 20 meq PO ONETIME ONE Stop: 05/30/19 16:47 Last Admin: 05/30/19 18:35 Dose: 20 meq Promethazine HCl (Phenergan) 25 mg PO ONETIME ONE Stop: 05/30/19 10:10 Last Admin: 05/30/19 12:00 Dose: 25 mg Promethazine HCl (Phenergan) 25 mg PO Q4H ONE Stop: 05/31/19 09:50 Last Admin: 05/31/19 10:12 Dose: 25 mg <Mirella Warren - Last Filed: 06/01/19 13:28> Discharge Summary - Hospital Course HPI Initial Comments: I have seen and evaluated the patient and agree with the residents note unless specified in my note - Referral to Home Health Primary Care Physician: Maynor Black MD - Patient Summary/Data Consults: Consultations 05/28/19 17:32 Consult to Physician [CONS] Stat - Patient Data Vitals - Most Recent: Last Vital Signs Temp 36.8 C 05/31/19 17:00 Pulse 80 05/31/19 12:00 Resp 15 05/31/19 17:00 BP 133/79 05/31/19 17:00 Pulse Ox 96 05/31/19 17:00 Lab Results - Last 24 hrs: Laboratory Results - last 24 hr 05/31/19 05/31/19 Range/Units 14:40 16:14 Sodium 138 (136-145) mmol/L Potassium 3.8 (3.5-5.1) mmol/L Chloride 104 (98-107) mmol/L Carbon Dioxide 22.2 (21.0-32.0) mmol/L BUN 7 (7.0-18.0) mg/dL Creatinine 0.7 (0.6-1.0) mg/dL Est Cr Clr Drug Dosing 85.18 mL/min Estimated GFR (MDRD) > 60.0 ml/min Glucose 151 H (74-106) mg/dL POC Glucose 174 H (60-110) mg/dL Calcium 8.5 (8.5-10.1) mg/dL Med Orders - Current: Current Medications Discontinued Medications Calcium Gluconate (Calcium Gluconate) 2 gm IV ONETIME ONE Stop: 05/29/19 10:24 Last Admin: 05/29/19 10:57 Dose: 2 gm Diphenhydramine HCl (Benadryl) 25 mg IVPUSH ONETIME ONE Stop: 05/30/19 00:37 Last Admin: 05/30/19 00:53 Dose: 25 mg Diphenhydramine HCl (Benadryl) 25 mg PO ONETIME ONE Stop: 05/30/19 20:34 Last Admin: 05/30/19 20:39 Dose: 25 mg Fluoxetine HCl (Prozac) 40 mg PO DAILY [facility] Last Admin: 05/31/19 08:50 Dose: 40 mg Sodium Chloride (Normal Saline) 1,000 mls @ 999 mls/hr IV BOLUS ONE Stop: 05/28/19 15:27 Last Admin: 05/28/19 15:05 Dose: 999 mls/hr Insulin Human Regular 100 unit (/ Sodium Chloride) 100 mls @ 5 mls/hr IV TITRATE [facility]; Protocol Last Titration: 05/30/19 07:56 Dose: 1.5 unit/hr, 1.5 mls/hr Sodium Chloride (Normal Saline) 1,000 mls @ 999 mls/hr IV STAT ONE Stop: 05/28/19 16:59 Last Admin: 05/28/19 16:18 Dose: 999 mls/hr Potassium Chloride 20 meq/ (Premix) 50 mls @ 25 mls/hr IV ONETIME STA Stop: 05/28/19 19:03 Last Admin: 05/28/19 19:51 Dose: Not Given Potassium Chloride/Sodium Chloride (Normal Saline With 20 Meq Kcl) 1,000 mls @ 999 mls/hr IV ASDIRECTED [facility] Magnesium Sulfate 2 gm/ Premix 50 mls @ 25 mls/hr IV ONETIME ONE Stop: 05/28/19 19:17 Last Admin: 05/28/19 18:45 Dose: 25 mls/hr Potassium Chloride/Sodium Chloride (Normal Saline With 20 Meq Kcl) 1,000 mls @ 999 mls/hr IV ASDIRECTED [facility] Dextrose/Sodium Chloride (Dextrose 5%-Normal Saline) 1,000 mls @ 125 mls/hr IV ASDIRECTED [facility] Last Admin: 05/29/19 03:42 Dose: 125 mls/hr Sodium Chloride (Normal Saline) 1,000 mls @ 999 mls/hr IV ASDIRECTED [facility] Stop: 05/29/19 21:01 Last Admin: 05/28/19 22:14 Dose: 999 mls/hr Sodium Phosphate 30 mmole/ (Sodium Chloride) 260 mls @ 86 mls/hr IV ONETIME ONE Stop: 05/28/19 23:16 Last Admin: 05/28/19 21:20 Dose: 86 mls/hr Levetiracetam 500 mg/ Dextrose (/Water) 105 mls @ 420 mls/hr IV Q12H [facility] Last Admin: 05/31/19 09:01 Dose: 420 mls/hr Potassium Chloride 40 meq/ (Premix) 100 mls @ 50 mls/hr IV ONETIME ONE Stop: 05/29/19 01:33 Last Admin: 05/28/19 23:50 Dose: 50 mls/hr Potassium Chloride 40 meq/ (Premix) 100 mls @ 25 mls/hr IV ONETIME ONE Stop: 05/29/19 07:35 Last Admin: 05/29/19 03:42 Dose: 25 mls/hr Dextrose/Sodium Chloride (Dextrose 5%-1/2 Ns) 1,000 mls @ 125 mls/hr IV ASDIRECTED [facility] Last Admin: 05/29/19 10:24 Dose: 125 mls/hr Potassium Chloride 20 meq/ (Premix) 50 mls @ 25 mls/hr IV ONETIME ONE Stop: 05/29/19 12:59 Last Admin: 05/29/19 11:36 Dose: 25 mls/hr Magnesium Sulfate 2 gm/ Premix 50 mls @ 50 mls/hr IV ONETIME ONE Stop: 05/29/19 11:24 Last Admin: 05/29/19 11:17 Dose: 50 mls/hr Potassium Phosphate 15 mmole/ (Sodium Chloride) 255 mls @ 85 mls/hr IV ONETIME ONE Stop: 05/29/19 15:59 Last Admin: 05/29/19 12:59 Dose: 85 mls/hr Potassium Chloride 20 meq/ (Premix) 50 mls @ 25 mls/hr IV ONETIME ONE Stop: 05/29/19 17:48 Last Admin: 05/29/19 16:48 Dose: 25 mls/hr Potassium Chloride/Dextrose/Sod Cl (D5 1/2 Ns W/ 20 Meq/L Kcl) 1,000 mls @ 100 mls/hr IV ASDIRECTED PIPPA Last Admin: 05/30/19 06:32 Dose: 100 mls/hr Potassium Chloride (Kcl 40 Meq In Water 100 Ml) 100 mls @ 25 mls/hr IV ONETIME ONE Stop: 05/30/19 00:14 Last Admin: 05/29/19 20:43 Dose: 25 mls/hr Potassium Chloride 40 meq/ (Premix) 100 mls @ 50 mls/hr IV ONETIME ONE Stop: 05/30/19 02:29 Last Admin: 05/30/19 00:51 Dose: 50 mls/hr Sodium Phosphate 40 mmole/ (Sodium Chloride) 263.3333 mls @ 43.889 mls/hr IV ONETIME ONE Stop: 05/30/19 15:44 Last Admin: 05/30/19 09:58 Dose: 43.889 mls/hr Sodium Chloride (Normal Saline) 500 mls @ 999.99 mls/hr IV BOLUS ONE Stop: 05/31/19 11:59 Last Admin: 05/31/19 11:29 Dose: 999.99 mls/hr Insulin Aspart (Novolog) 0 unit SUBCUT Q4HR PIPPA; Protocol Last Admin: 05/31/19 16:18 Dose: 3 units Insulin Glargine (Lantus Solostar) 10 units SUBCUT DAILY PIPPA Last Admin: 05/31/19 08:50 Dose: 10 units Insulin Glargine (Lantus Solostar) 12 units SUBCUT BID [facility] Ketorolac Tromethamine (Toradol) 30 mg IVPUSH ONETIME ONE Stop: 05/28/19 14:40 Last Admin: 05/28/19 15:05 Dose: Not Given Levetiracetam (Keppra) 500 mg PO BID PIPPA Levothyroxine Sodium (Levothyroxine) 112 mcg PO ACBREAKFAST PIPPA Last Admin: 05/31/19 06:34 Dose: 112 mcg Levothyroxine Sodium (Levothyroxine) 25 mcg PO ACBREAKFAST PIPPA Last Admin: 05/31/19 06:35 Dose: 25 mcg Lorazepam (Ativan) 1 mg PO TID PRN PRN Reason: Anxiety Last Admin: 05/29/19 21:55 Dose: 1 mg Morphine Sulfate (Morphine) 2 mg IVPUSH ONETIME ONE Stop: 05/28/19 15:44 Last Admin: 05/28/19 15:55 Dose: Not Given Morphine Sulfate (Morphine) 15 mg PO Q4H PRN PRN Reason: Pain Last Admin: 05/28/19 18:43 Dose: 15 mg Morphine Sulfate (Morphine) 2 mg IVPUSH Q4H PRN PRN Reason: Pain Last Admin: 05/31/19 05:42 Dose: 2 mg Morphine Sulfate (Morphine) 1 mg IVPUSH Q4H PRN PRN Reason: Pain Last Admin: 05/31/19 14:23 Dose: 1 mg Non-Formulary Medication (Levothyroxine) 137 mcg PO ACBREAKFAST [facility] Non-Formulary Medication (Morphine Sulfate/Naltrexone [Embeda Er 60-2.4 Mg Capsule]) 1 each PO Q12HR [facility] Non-Formulary Medication (Rosuvastatin) 5 mg PO BEDTIME PIPPA Last Admin: 05/28/19 20:19 Dose: Not Given Ondansetron HCl (Zofran) Confirm Administered Dose 4 mg .ROUTE .STK-MED ONE Stop: 05/28/19 14:23 Last Admin: 05/28/19 14:31 Dose: Not Given Ondansetron HCl (Zofran) 4 mg IVPUSH ONETIME ONE Stop: 05/28/19 14:32 Last Admin: 05/28/19 15:05 Dose: 4 mg Ondansetron HCl (Zofran Odt) 4 mg PO Q4H PRN PRN Reason: nausea, able to take PO Last Admin: 05/31/19 08:50 Dose: 4 mg Ondansetron HCl (Zofran) 4 mg IVPUSH ONETIME ONE Stop: 05/28/19 23:40 Last Admin: 05/28/19 23:48 Dose: 4 mg Ondansetron HCl (Zofran) 4 mg IVPUSH ONETIME ONE Stop: 05/29/19 03:37 Last Admin: 05/29/19 03:42 Dose: 4 mg Ondansetron HCl (Zofran) 4 mg IVPUSH ONETIME ONE Stop: 05/30/19 00:42 Last Admin: 05/30/19 00:59 Dose: 4 mg Potassium Chloride (Potassium Chloride) 40 meq PO ONETIME ONE Stop: 05/28/19 20:01 Last Admin: 05/28/19 21:06 Dose: Not Given Potassium Chloride (Klor-Con M20) 20 meq PO ONETIME ONE Stop: 05/30/19 16:47 Last Admin: 05/30/19 18:35 Dose: 20 meq Promethazine HCl (Phenergan) 25 mg PO ONETIME ONE Stop: 05/30/19 10:10 Last Admin: 05/30/19 12:00 Dose: 25 mg Promethazine HCl (Phenergan) 25 mg PO Q4H ONE Stop: 05/31/19 09:50 Last Admin: 05/31/19 10:12 Dose: 25 mg Promethazine HCl (Phenergan) 25 mg PO Q4H PRN PRN Reason: Nausea Last Admin: 05/31/19 14:06 Dose: 25 mg Rosuvastatin Calcium (Crestor) 5 mg PO BEDTIME PIPPA Last Admin: 05/30/19 20:39 Dose: 5 mg Tizanidine HCl (Zanaflex) 4 mg PO BID PIPPA Last Admin: 05/31/19 08:50 Dose: 4 mg
[2019-05-31 18:29] VITALS: BP 133/79
[2019-05-31] MEDS ORDERED: Insulin Glargine,Human Rec. Analog 100 Units/ML 3 ML Pen SUBCUT SCH (21:00)
== END 2019-05-31 17:45 | disposition home or self-care (01) | DRG 638 ==
LOC: MW.ED 14:06 → MW.ICU 16:48
PROVIDERS: ADMIT Student in an Organized Health Care Education/Training Program; ATTEND Student in an Organized Health Care Education/Training Program
PROC: 02HV33Z Insertion of Infusion Device into Superior Vena Cava, Percutaneous Approach (ICD-10-PCS; principal; 2019-05-28)
PROC: B548ZZA Ultrasonography of Superior Vena Cava, Guidance (ICD-10-PCS; 2019-05-28)
DX: E10.10 Type 1 diabetes mellitus with ketoacidosis without coma (principal); N17.9 Acute kidney failure, unspecified; E83.42 Hypomagnesemia; R11.0 Nausea; G89.29 Other chronic pain; M54.9 Dorsalgia, unspecified; E83.51 Hypocalcemia; E83.39 Other disorders of phosphorus metabolism; F41.9 Anxiety disorder, unspecified; F32.9 Major depressive disorder, single episode, unspecified; E03.9 Hypothyroidism, unspecified; D64.9 Anemia, unspecified; Z88.0 Allergy status to penicillin; Z88.5 Allergy status to narcotic agent; Z88.8 Allergy status to other drugs, medicaments and biological substances; Z79.890 Hormone replacement therapy; Z90.49 Acquired absence of other specified parts of digestive tract; Z87.891 Personal history of nicotine dependence; Z91.14 Patient's other noncompliance with medication regimen
CPT/HCPCS: 36415; 36600; 71045; 71045-26; 80048; 80053; 80069; 81001; 81025; 82009; 82803; 82962; 83735; 84100; 85014; 85018; 85025; 93005; 96361; 96374; 99284; 99285-25; A9270-GY; J0610; J1200; J1815-GY; J1953; J2270; J2405; J3475; J3480; J7030; J7040; J7042; J7050; J7060

== ENCOUNTER 2020-12-03 11:47 | Emergency (ER) | payer MEDICAID ==
--- NOTE | 2020-12-03 12:18 | EDM.PDOC ---
ED HPI GENERAL MEDICAL PROBLEM - General Chief Complaint: Diabetic Complaint Stated Complaint: DIABETIC KETO ACIDOSIS Time Seen by Provider: 12/03/20 12:12 Source of Information: Reports: Patient History Limitations: Reports: No Limitations - History of Present Illness INITIAL COMMENTS - FREE TEXT/NARRATIVE: HISTORY AND PHYSICAL: History of present illness: The patient is a 30-year-old female with a history of type 1 diabetes who presents to the emergency department with complaints of nausea, vomiting, diarrhea, and inability to eat since Sunday. The patient states that she has had uncontrollable nausea and vomiting for which she had been taking Zofran but ran out 2 days ago. She reports low back pain and generalized abdominal pain. The patient's glucoses have been running between 200-300. The patient states that she has decreased urination. Patient denies any fever, chills, headache, change in vision, syncope or near syncope. Denies any chest pain, shortness of breath or cough. Denies any constipation or dysuria. Has not noted any blood in urine or stool. She did not contact her primary care regarding her diabetes. She states that she was to have an appointment on November 30 with her putty remover but did not realize the appointment time had been changed. She states that she is waiting for them to reschedule the appointment. She states that she contacted her primary care doctor regarding her medication being out, which she reports as her Zofran and her morphine 15 mg, who told her to wait until December 07 for her new shipment. In the emergency room the patient is hemodynamically stable with a tachycardic heart rate of 112 and a blood pressure of 125/85. She is afebrile with a temperature of 97.5. Review of systems: As per history of present illness and below otherwise all systems reviewed and negative. Past medical history: As per history of present illness and as reviewed below otherwise noncontributory. Surgical history: As per history of present illness and as reviewed below otherwise noncontributory. Social history: See social history for further information Family history: As per history of present illness and as reviewed below otherwise noncontributory. Physical exam: General: Well developed and well nourished. Alert and orientated x 3. Nontoxic in appearance and crying. Vital signs are stable and have been reviewed by me. Nursing notes were reviewed. HEENT: Atraumatic, normocephalic, pupils equal and reactive bilaterally, negative for conjunctival pallor or scleral icterus, mucous membranes moist, TMs normal bilaterally, throat clear, neck supple, nontender, trachea midline. No drooling or trismus noted. No meningeal signs. No hot potato voice noted. Lungs: Clear to auscultation bilaterally. No wheezes, rales, or rhonchi. Chest nontender. Normal work of breathing, no accessory muscles used. Heart: S1S2, regular rate and rhythm without overt murmur, gallops, or rubs. No JVD. No peripheral edema Abdomen: Soft, nondistended, generalized tenderness. Normoactive bowel sounds. Negative for masses or costovertebral tenderness. Dexcom G6 glucose measuring device noted to left lower abdomen. Skin: Intact, warm, dry. No lesions or rashes noted. Hematologic: No petechiae or purpra. Mucosa appropriate color and normal nail bed color and refill. Extremities: Atraumatic, moves all extremities per self without difficulty or deficits, negative for cords or calf pain. Neurovascular unremarkable. Neuro: Awake, alert, oriented. Cranial nerves II through XII unremarkable. Cerebellum unremarkable. Motor and sensory unremarkable throughout. Exam nonfocal. Psychiatric: Mood and affect are appropriate. Normal thought process. Answering questions appropriately. Notes: *This patient was seen and evaluated during the 2019 SARS-CoV-2 novel coronavirus pandemic period. Community viral transmission is ongoing at time of this encounter and the emergency department is operating under pandemic response procedures. As stated above the patient is a type I diabetic that presents to the emergency room with complaints of vomiting, diarrhea, and inability to eat since Sunday. The patient has a Dexcom G6 glucose monitoring device which in the ED [place] measures 241. The patient is concerned about being out of her Zofran and almost out of her morphine 15 mg. I inquired as to what her primary care stated and she said the primary care told her to wait until December 07 when her new shipment would come in. The patient is agreeable to fluids, Zofran, and requested morphine, lab work, and a urinalysis. I have 2 L of normal saline to be infused. 13:20 venous blood gas pH 7.44, PCO2 34, HCO3 23. Suggesting an acute respiratory alkalosis. The patient was hyperventilating upon arrival. Her urine has glucose over 1000 ketones of 40 and a small amount of bilirubin but no suggestion of infection. 13:23 the patient's CBC is unremarkable except for an elevated hematocrit of 46.8. The hCG is negative. 14:10 CMP is unremarkable except for glucose of 369, AST of 30, and alkaline phosphatase 175. The lactic acid was 1.6. Magnesium is 2.0. Anion gap is 14. I will treat the glucose with 5 units of regular insulin. The patient stated that prior to arrival which was approximately 2 hours ago she treated her glucose of 271 with 4 units of Novolog. 14:55 the patient is feeling better. She is able to play on her phone. I have talked with the patient about today's findings, in addition to providing specific details for plan of care. Reassessment at the time of disposition demonstrates that the patient is in no acute distress. The patient is stable for discharge, counseling was provided and we discussed in great detail signs and symptoms that would prompt them to return to the Emergency Department. Medication, follow up and supportive care measures were reviewed and discussed. Voices understanding and is agreeable to plan of care. Denies any further questions or concerns at this time. Diagnostics: CBC, CMP, venous blood gas, magnesium, lactic acid, ketones, urinalysis, and urine hCG Therapeutics: Normal saline 2 L, Zofran, morphine 2 mg x2, Benadryl 25 Prescription: Zofran 4 mg every 4 to 6 hours #10 Impression: Hyperglycemia type 1 diabetes, vomiting Plan: 1. You were evaluated today on an emergent basis. Your plaints of possible DKA you were evaluated with lab work, urinalysis and your nausea was treated with Zofran, your pain was treated with morphine, and your increased glucose was treated with insulin. Glucose was 369 and we treated with 5 units of regular insulin which came down to 227. We gave you 2 L of fluid. You tolerated eating your lunch well. I will prescribe Zofran for you to take at home. Please take as prescribed and wait at least 30 minutes after taking it before attempting fluids if you start feeling nauseated. If you feel worse or your glucose starts to elevate please return to the emergency department. 2. You can alternate Tylenol and ibuprofen as needed for pain and fever management. 3. We encourage you to follow up with your primary care provider and/or recommended specialist in the next few days for re-evaluation and further care/m anagement. 4. If your symptoms should worsen, new symptoms develop or any of the signs and symptoms we discussed should arise please return to the emergency room or call 911 (if needed). Definitive disposition and diagnosis as appropriate pending reevaluation and review of above. general Pain Score (Numeric/FACES): 5 - Related Data Allergies Allergy/AdvReac Type Severity Reaction Status Date / Time acetaminophen [From Tylenol] Allergy Liver Verified 12/03/20 12:25 Problems amoxicillin Allergy Hives Verified 12/03/20 12:25 amoxicillin trihydrate Allergy Hives Verified 12/03/20 12:25 [From Amoxil] ibuprofen Allergy Liver Verified 12/03/20 12:25 Problems ketorolac tromethamine Allergy Hives Verified 12/03/20 12:25 [From Toradol] metoclopramide HCl Allergy Airway Verified 12/03/20 12:25 [From Reglan] Tightness tramadol Allergy Hives Verified 12/03/20 12:25 haldol Allergy Swelling Uncoded 12/03/20 12:25 Home Meds: Home Meds FLUoxetine HCl [Fluoxetine HCl] 40 mg PO DAILY 01/27/19 [History] Insulin Degludec [Tresiba] 26 unit SQ DAILY 01/27/19 [History] LORazepam 1 mg PO TID 01/27/19 [History] Levothyroxine [Levothroid] 137 mcg PO ACBREAKFAST 01/27/19 [History] Morphine 15 mg PO Q4H PRN 01/27/19 [History] Rosuvastatin [Crestor] 5 mg PO BEDTIME 01/27/19 [History] levETIRAcetam [Keppra] 500 mg PO BID 01/27/19 [History] tiZANidine [Zanaflex] 4 mg PO BID 01/27/19 [History] Insuln Asp Prot/Insulin Aspart [NovoLOG Mix 70-30] 0 unit SQ ASDIRECTED 03/31/19 [History] Morphine Sulfate/Naltrexone [Embeda ER 60-2.4 mg Capsule] 1 each PO Q12HR 03/31/19 [History] Insulin Aspart [NovoLOG] 0 unit SUBCUT Q4HR pen 05/31/19 [Rx] Insulin Glarg,Human.Rec.Analog [Lantus Solostar] 12 units SUBCUT BID pen 11/30/19 [Rx] Ondansetron [Zofran ODT] 4 mg PO Q6H PRN #10 tab.dis 12/03/20 [Rx] Past Medical History - Past Health History Medical/Surgical History: Denies Medical/Surgical History HEENT History: Reports: Allergic Rhinitis Other HEENT History: dental abcess Cardiovascular History: Reports: None Respiratory History: Reports: Asthma Gastrointestinal History: Reports: GI Bleed, Hepatitis, PUD, Other (See Below) Other Gastrointestinal History: hx of C-diff, hx of Hepatitis B Genitourinary History: Reports: UTI, Recurrent Other Genitourinary History: current UTI 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: Other (See Below) Other CAST IRON DRAIN PIPE LAYER History: had miscarriage twice Musculoskeletal History: Reports: Back Pain, Chronic, Fracture Neurological History: Reports: Migraines, Seizure, Other (See Below) 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 Psychiatric History: Reports: Anxiety, Depression Endocrine/Metabolic History: Reports: Diabetes, Type I, Hypothyroidism Other Endocrine/Metabolic History: recurrent admission for DKA Hematologic History: Reports: Anemia, Blood Transfusion(s) Immunologic History: Reports: None Oncologic (Cancer) History: Reports: None Dermatologic History: Reports: Other (See Below) Other Dermatologic History: wound dishiscence causing port removal R upper chest--dehiscence from inadequate diet - Infectious Disease History Infectious Disease History: Reports: Chicken Pox, Hepatitis B - Past Surgical History Head Surgeries/Procedures: Reports: None HEENT Surgical History: Reports: Tonsillectomy Cardiovascular Surgical History: Reports: None Respiratory Surgical History: Reports: None GI Surgical History: Reports: Appendectomy, Cholecystectomy, ERCP Female Surgical History: Reports: None Endocrine Surgical History: Reports: None Neurological Surgical History: Reports: None Musculoskeletal Surgical History: Reports: None Oncologic Surgical History: Reports: None Dermatological Surgical History: Reports: None - History Comment History Comment: She has had over [address] scans in the last 4 years. Social & Family History - Family History Family Medical History: No Pertinent Family History HEENT: Reports: Impaired Vision Cardiac: Reports: Heart Failure Respiratory: Reports: Asthma GI: Reports: None : Reports: Renal Disease/Insufficiency OBGYN: Reports: Musculoskeletal: Reports: Back pain, Chronic Neurological: Reports: Seizure Psychiatric: Reports: None Endocrine/Metabolic: Reports: Diabetes, Type I Hematologic: Reports: None Immunologic: Reports: None Dermatologic: Reports: None Oncologic: Reports: Breast, Cervix - Caffeine Use Caffeine Use: Reports: Soda Caffeine Use Comment: approximately 1 drink/day - Living Situation & Occupation Living situation: Reports: with Significant Other, with Family, Other Occupation: Unemployed ED ROS GENERAL - Review of Systems Review Of Systems: Comprehensive ROS is negative, except as noted in HPI. ED EXAM GENERAL NO PERIP PULSE - Physical Exam Exam: See Below (See dictation) Course - Vital Signs Last Recorded V/S: Last Vital Signs Temp 97.8 F 12/03/20 16:10 Pulse 99 12/03/20 16:10 Resp 16 12/03/20 16:10 BP 109/76 12/03/20 16:10 Pulse Ox 94 L 12/03/20 16:10 - Orders/Labs/Meds Orders: Active Orders 24 hr Category Date Time Status Saline Lock Insert [OM.PC] Stat Oth 12/03/20 12:28 Ordered Labs: Laboratory Tests 12/03/20 12/03/20 12/03/20 Range/Units 12:18 12:18 12:18 WBC 8.71 (4.0-11.0) K/uL RBC 5.31 (4.30-5.90) M/uL Hgb 15.4 (12.0-16.0) g/dL Hct 46.8 H (36.0-46.0) % MCV 88.1 (80.0-98.0) fL MCH 29.0 (27.0-32.0) pg MCHC 32.9 (31.0-37.0) g/dL RDW Std Deviation 41.7 (28.0-62.0) fl RDW Coeff of Zak 13 (11.0-15.0) % Plt Count 334 (150-400) K/uL MPV 10.80 (7.40-12.00) fL Neut % (Auto) 67.3 (48.0-80.0) % Lymph % (Auto) 26.2 (16.0-40.0) % Bledsoe % (Auto) 4.5 (0.0-15.0) % Eos % (Auto) 1.8 (0.0-7.0) % Baso % (Auto) 0.2 (0.0-1.5) % Neut # (Auto) 5.9 H (1.4-5.7) K/uL Lymph # (Auto) 2.3 (0.6-2.4) K/uL Bledsoe # (Auto) 0.4 (0.0-0.8) K/uL Eos # (Auto) 0.2 (0.0-0.7) K/uL Baso # (Auto) 0.0 (0.0-0.1) K/uL Nucleated RBC % 0.0 /100WBC Nucleated RBCs # 0 K/uL VBG pH (7.31-7.41) VBG pCO2 (41-51) mmHG VBG pO2 mmHG VBG HCO3 (23-28) mEq/L VBG Total CO2 (24-29) mmol/L VBG Base Excess (-2.0-3.0) Sodium 136 (136-145) mmol/L Potassium 4.2 (3.5-5.1) mmol/L Chloride 99 (98-107) mmol/L Carbon Dioxide 23.0 (21.0-32.0) mmol/L BUN 18 (7.0-18.0) mg/dL Creatinine 0.8 (0.6-1.0) mg/dL Est Cr Clr Drug Dosing 73.19 mL/min Estimated GFR (MDRD) > 60.0 ml/min Glucose 369 H (74-106) mg/dL POC Glucose (70-99) mg/dL Lactic Acid (0.4-2.0) mmol/L Calcium 10.0 (8.5-10.1) mg/dL Magnesium 2.0 (1.8-2.4) mg/dL Total Bilirubin 0.3 (0.2-1.0) mg/dL AST 39 H (15-37) IU/L ALT 53 (14-63) IU/L Alkaline Phosphatase 195 H (46-116) U/L Total Protein 8.2 (6.4-8.2) g/dL Albumin 3.7 (3.4-5.0) g/dL Globulin 4.5 H (2.6-4.0) g/dL Albumin/Globulin Ratio 0.8 L (0.9-1.6) Urine Color Urine Appearance Urine pH (5.0-8.0) Ur Specific [place] (1.001-1.035) Urine Protein (NEGATIVE) mg/dL Urine Glucose (UA) (NEGATIVE) mg/dL Urine Ketones (NEGATIVE) mg/dL Urine Occult Blood (NEGATIVE) Urine Nitrite (NEGATIVE) Urine Bilirubin (NEGATIVE) Urine Ictotest Urine Urobilinogen (<2.0) EU/dL Ur Leukocyte Esterase (NEGATIVE) Urine HCG, Qual (NEGATIVE) Ketones LARGE H (NEG) 12/03/20 12/03/20 12/03/20 Range/Units 12:18 12:18 12:28 WBC (4.0-11.0) K/uL RBC (4.30-5.90) M/uL Hgb (12.0-16.0) g/dL Hct (36.0-46.0) % MCV (80.0-98.0) fL MCH (27.0-32.0) pg MCHC (31.0-37.0) g/dL RDW Std Deviation (28.0-62.0) fl RDW Coeff of Zak (11.0-15.0) % Plt Count (150-400) K/uL MPV (7.40-12.00) fL Neut % (Auto) (48.0-80.0) % Lymph % (Auto) (16.0-40.0) % Bledsoe % (Auto) (0.0-15.0) % Eos % (Auto) (0.0-7.0) % Baso % (Auto) (0.0-1.5) % Neut # (Auto) (1.4-5.7) K/uL Lymph # (Auto) (0.6-2.4) K/uL Bledsoe # (Auto) (0.0-0.8) K/uL Eos # (Auto) (0.0-0.7) K/uL Baso # (Auto) (0.0-0.1) K/uL Nucleated RBC % /100WBC Nucleated RBCs # K/uL VBG pH 7.44 H (7.31-7.41) VBG pCO2 34 L (41-51) mmHG VBG pO2 70 mmHG VBG HCO3 23 (23-28) mEq/L VBG Total CO2 20 L (24-29) mmol/L VBG Base Excess -0.5 (-2.0-3.0) Sodium (136-145) mmol/L Potassium (3.5-5.1) mmol/L Chloride (98-107) mmol/L Carbon Dioxide (21.0-32.0) mmol/L BUN (7.0-18.0) mg/dL Creatinine (0.6-1.0) mg/dL Est Cr Clr Drug Dosing mL/min Estimated GFR (MDRD) ml/min Glucose (74-106) mg/dL POC Glucose (70-99) mg/dL Lactic Acid 1.6 (0.4-2.0) mmol/L Calcium (8.5-10.1) mg/dL Magnesium (1.8-2.4) mg/dL Total Bilirubin (0.2-1.0) mg/dL AST (15-37) IU/L ALT (14-63) IU/L Alkaline Phosphatase (46-116) U/L Total Protein (6.4-8.2) g/dL Albumin (3.4-5.0) g/dL Globulin (2.6-4.0) g/dL Albumin/Globulin Ratio (0.9-1.6) Urine Color YELLOW Urine Appearance CLEAR Urine pH 6.0 (5.0-8.0) Ur Specific [place] 1.015 (1.001-1.035) Urine Protein NEGATIVE (NEGATIVE) mg/dL Urine Glucose (UA) >=1000 (NEGATIVE) mg/dL Urine Ketones 40 H (NEGATIVE) mg/dL Urine Occult Blood NEGATIVE (NEGATIVE) Urine Nitrite NEGATIVE (NEGATIVE) Urine Bilirubin SMALL H (NEGATIVE) Urine Ictotest NEGATIVE Urine Urobilinogen 0.2 (<2.0) EU/dL Ur Leukocyte Esterase NEGATIVE (NEGATIVE) Urine HCG, Qual (NEGATIVE) Ketones (NEG) 12/03/20 12/03/20 12/03/20 Range/Units 12:50 14:02 14:53 WBC (4.0-11.0) K/uL RBC (4.30-5.90) M/uL Hgb (12.0-16.0) g/dL Hct (36.0-46.0) % MCV (80.0-98.0) fL MCH (27.0-32.0) pg MCHC (31.0-37.0) g/dL RDW Std Deviation (28.0-62.0) fl RDW Coeff of Zak (11.0-15.0) % Plt Count (150-400) K/uL MPV (7.40-12.00) fL Neut % (Auto) (48.0-80.0) % Lymph % (Auto) (16.0-40.0) % Bledsoe % (Auto) (0.0-15.0) % Eos % (Auto) (0.0-7.0) % Baso % (Auto) (0.0-1.5) % Neut # (Auto) (1.4-5.7) K/uL Lymph # (Auto) (0.6-2.4) K/uL Bledsoe # (Auto) (0.0-0.8) K/uL Eos # (Auto) (0.0-0.7) K/uL Baso # (Auto) (0.0-0.1) K/uL Nucleated RBC % /100WBC Nucleated RBCs # K/uL VBG pH (7.31-7.41) VBG pCO2 (41-51) mmHG VBG pO2 mmHG VBG HCO3 (23-28) mEq/L VBG Total CO2 (24-29) mmol/L VBG Base Excess (-2.0-3.0) Sodium (136-145) mmol/L Potassium (3.5-5.1) mmol/L Chloride (98-107) mmol/L Carbon Dioxide (21.0-32.0) mmol/L BUN (7.0-18.0) mg/dL Creatinine (0.6-1.0) mg/dL Est Cr Clr Drug Dosing mL/min Estimated GFR (MDRD) ml/min Glucose (74-106) mg/dL POC Glucose 304 H 227 H (70-99) mg/dL Lactic Acid (0.4-2.0) mmol/L Calcium (8.5-10.1) mg/dL Magnesium (1.8-2.4) mg/dL Total Bilirubin (0.2-1.0) mg/dL AST (15-37) IU/L ALT (14-63) IU/L Alkaline Phosphatase (46-116) U/L Total Protein (6.4-8.2) g/dL Albumin (3.4-5.0) g/dL Globulin (2.6-4.0) g/dL Albumin/Globulin Ratio (0.9-1.6) Urine Color Urine Appearance Urine pH (5.0-8.0) Ur Specific [place] (1.001-1.035) Urine Protein (NEGATIVE) mg/dL Urine Glucose (UA) (NEGATIVE) mg/dL Urine Ketones (NEGATIVE) mg/dL Urine Occult Blood (NEGATIVE) Urine Nitrite (NEGATIVE) Urine Bilirubin (NEGATIVE) Urine Ictotest Urine Urobilinogen (<2.0) EU/dL Ur Leukocyte Esterase (NEGATIVE) Urine HCG, Qual NEGATIVE (NEGATIVE) Ketones (NEG) Meds: Medications Discontinued Medications Generic Name Dose Route Start Last Admin Trade Name Freq PRN Reason Stop Dose Admin Dextrose/Water 50 ml 12/03/20 13:54 50% Dextrose In Water 50 Ml Syringe IV ASDIRECTED PRN Hypoglycemia Diphenhydramine HCl 25 mg 12/03/20 14:10 12/03/20 14:24 Diphenhydramine 50 Mg/Ml Sdv IVPUSH 12/03/20 14:11 25 mg ONETIME ONE Administration Glucagon 1 mg 12/03/20 13:54 Glucagon,Human Recombinant 1 Mg Vial IM ASDIRECTED PRN Hypoglycemia Sodium Chloride 1,000 mls @ 999 mls/hr 12/03/20 12:28 12/03/20 12:37 Normal Saline IV 12/03/20 13:28 999 mls/hr BOLUS ONE Administration Sodium Chloride 1,000 mls @ 999 mls/hr 12/03/20 12:49 12/03/20 13:51 Normal Saline IV 12/03/20 13:49 999 mls/hr .BOLUS ONE Administration Insulin Human Regular 5 unit 12/03/20 13:54 12/03/20 14:22 Insulin Regular, Human 100 Units/Ml 10 Ml Vial IVPUSH 12/03/20 13:55 5 units ONETIME ONE Administration Protocol Morphine Sulfate 2 mg 12/03/20 12:31 12/03/20 12:37 Morphine 2 Mg/Ml Syringe IVPUSH 12/03/20 12:32 2 mg ONETIME ONE Administration Morphine Sulfate 2 mg 12/03/20 13:56 12/03/20 14:21 Morphine 2 Mg/Ml Syringe IVPUSH 12/03/20 13:57 2 mg ONETIME ONE Administration Ondansetron HCl 4 mg 12/03/20 12:28 12/03/20 12:37 Ondansetron 4 Mg/2 Ml Sdv IVPUSH 12/03/20 12:29 4 mg ONETIME ONE Administration Sodium Chloride 10 ml 12/03/20 12:28 12/03/20 12:39 Sodium Chloride 0.9% 10 Ml Syringe FLUSH 10 ml ASDIRECTED PRN Administration Keep Vein Open Sodium Chloride 2.5 ml 12/03/20 12:28 12/03/20 12:38 Sodium Chloride 0.9% 2.5 Ml Syringe FLUSH 2.5 ml ASDIRECTED PRN Administration Keep Vein Open Departure - Departure Time of Disposition: 15:44 Disposition: Home, Self-Care 01 Condition: Good Clinical Impression: Hyperglycemia due to type 1 diabetes mellitus Vomiting Qualifiers: Vomiting type: unspecified Vomiting Intractability: non-intractable Nausea presence: with nausea Qualified Code(s): R11.2 - Nausea with vomiting, unspecified - Discharge Information *PRESCRIPTION DRUG MONITORING PROGRAM REVIEWED*: Not Applicable *COPY OF PRESCRIPTION DRUG MONITORING REPORT IN PATIENT DEWEY: Not Applicable Prescriptions: Ondansetron [Zofran ODT] 4 mg PO Q6H PRN #10 tab.dis PRN Reason: Nausea Instructions: Hyperglycemia, Type 1 Diabetes Mellitus, Diagnosis, Adult Referrals: Maynor Black MD [Primary Care Provider] - Forms: ED Department Discharge Additional Instructions: The following information is given to patients seen in the emergency department who are being discharged to home. This information is to outline your options for follow-up care. We provide all patients seen in our emergency department with a follow-up referral. The need for follow-up, as well as the timing and circumstances, are variable depending upon the specifics of your emergency department visit. If you don't have a primary care physician on staff, we will provide you with a referral. We always advise you to contact your personal physician following an emergency department visit to inform them of the circumstance of the visit and for follow-up with them and/or the need for any referrals to a consulting specialist. The emergency department will also refer you to a specialist when appropriate. This referral assures that you have the opportunity for follow-up care with a specialist. All of these measure are taken in an effort to provide you with optimal care, which includes your follow-up. Under all circumstances we always encourage you to contact your private physician who remains a resource for coordinating your care. When calling for follow-up care, please make the office aware that this follow-up is from your recent emergency room visit. If for any reason you are refused follow-up, please contact the [facility] Emergency Department at and asked to speak to the emergency department charge nurse. [facility] - [facility] [address], [place] [address] [facility] [address] [place] [address] Plan: 1. You were evaluated today on an emergent basis. Your plaints of possible DKA you were evaluated with lab work, urinalysis and your nausea was treated with Zofran, your pain was treated with morphine, and your increased glucose was treated with insulin. Glucose was 369 and we treated with 5 units of regular i nsulin which came down to 227. We gave you 2 L of fluid. You tolerated eating your lunch well. I will prescribe Zofran for you to take at home. Please take as prescribed and wait at least 30 minutes after taking it before attempting fluids if you start feeling nauseated. If you feel worse or your glucose starts to elevate please return to the emergency department. 2. You can alternate Tylenol and ibuprofen as needed for pain and fever management. 3. We encourage you to follow up with your primary care provider and/or recommended specialist in the next few days for re-evaluation and further care/management. 4. If your symptoms should worsen, new symptoms develop or any of the signs and symptoms we discussed should arise please return to the emergency room or call 911 (if needed). Sepsis Event Note (ED) - Focused Exam Vital Signs: Vital Signs Temp Pulse Resp BP Pulse Ox 12/03/20 16:10 97.8 F 99 16 109/76 94 L 12/03/20 15:21 101 H 114/70 94 L 12/03/20 14:21 107 H 109/79 94 L 12/03/20 13:21 110 H 116/80 93 L 12/03/20 12:22 97.5 F 112 H 125/85 93 L - My Orders Last 24 Hours: My Active Orders 12/03/20 12:28 Saline Lock Insert [OM.PC] Stat - Assessment/Plan Last 24 Hours: My Active Orders 12/03/20 12:28 Saline Lock Insert [OM.PC] Stat
[2020-12-03] MEDS ORDERED: Sodium Chloride 0.9% 2.5 ML Syringe FLUSH PRN (12:28)
[2020-12-03] MEDS ORDERED: Ondansetron 4 MG/2 ML SDV IVPUSH ONE (12:28)
[2020-12-03] MEDS ORDERED: Sodium Chloride 0.9% 10 ML Syringe FLUSH PRN (12:28)
[2020-12-03] MEDS ORDERED: Sodium Chloride 0.9% 1,000 ML IV ONE ×2 (12:28→12:49)
[2020-12-03] MEDS ORDERED: Morphine 2 MG/ML SYRINGE IVPUSH ONE ×2 (12:31→13:56)
[2020-12-03 13:38] LABS: BLOOD UREA NITROGEN,BUN 18 mg/dL (7.0-18.0); CHLORIDE,CL 99 mmol/L (98-107); GLUCOSE RANDOM 369 mg/dL (74-106); POTASSIUM,K 4.2 mmol/L (3.5-5.1); SODIUM,NA 136 mmol/L (136-145)
[2020-12-03] MEDS ORDERED: Glucagon,Human Recombinant 1 MG Vial IM PRN (13:54)
[2020-12-03] MEDS ORDERED: 50% Dextrose in Water 50 ML Syringe IV PRN (13:54)
[2020-12-03] MEDS ORDERED: Insulin Regular, Human 100 Units/ML 10 ML Vial IVPUSH ONE (13:54)
[2020-12-03] MEDS ORDERED: diphenhydrAMINE 50 MG/ML SDV IVPUSH ONE (14:10)
[2020-12-03 17:23] VITALS: BP 109/76; PULSE 99
== END 2020-12-03 16:10 | disposition home or self-care (01) ==
LOC: MW.ED 11:47
DX: E10.65 Type 1 diabetes mellitus with hyperglycemia (principal); M54.5 Low back pain; R10.84 Generalized abdominal pain; J45.909 Unspecified asthma, uncomplicated; E03.9 Hypothyroidism, unspecified; Z88.6 Allergy status to analgesic agent; Z88.0 Allergy status to penicillin; Z88.5 Allergy status to narcotic agent; Z88.8 Allergy status to other drugs, medicaments and biological substances; Z79.899 Other long term (current) drug therapy
CPT/HCPCS: 36415; 80053; 81003; 81025; 82009; 82803; 82947; 83605; 83735; 85025; 96374; 96375; 96376; 99284; J1200; J2270; J2405; J7030; J1815-GY

== ENCOUNTER 2020-12-06 00:50 | Emergency (ER) | payer MEDICAID ==
[2020-12-06] MEDS ORDERED: Sodium Chloride 0.9% 2.5 ML Syringe FLUSH PRN (01:12)
[2020-12-06] MEDS ORDERED: Sodium Chloride 0.9% 10 ML Syringe FLUSH PRN (01:12)
[2020-12-06] MEDS ORDERED: Sodium Chloride 0.9% 1,000 ML IV ONE (01:14)
[2020-12-06] MEDS ORDERED: Ondansetron 4 MG/2 ML SDV IVPUSH ONE (01:15)
[2020-12-06 01:42] LABS: BLOOD UREA NITROGEN,BUN 22 mg/dL (7.0-18.0); CARBON DIOXIDE,CO2 21.8 mmol/L (21.0-32.0); CHLORIDE,CL 101 mmol/L (98-107); GLUCOSE RANDOM 257 mg/dL (74-106); LIPASE 38 U/L (73-393); SODIUM,NA 139 mmol/L (136-145)
--- NOTE | 2020-12-06 01:46 | EDM.PDOC ---
ED HPI GENERAL MEDICAL PROBLEM - General Chief Complaint: General Stated Complaint: DKA Time Seen by Provider: 12/06/20 00:51 - History of Present Illness INITIAL COMMENTS - FREE TEXT/NARRATIVE: History of present illness: [] The patient has been vomiting everything for 3 days. She has loose stool 6 3 times a day for 3 days. She cannot sleep and gets agitated and feels like she is anxious at night. That is for 3 days also. Her father said she looked a little unbalanced when she tried to walk and she felt dizzy today. The patient was here 2 days ago with hyperglycemia. She was not in DKA at that time. She did have a respiratory alkalosis was somewhat hyperventilatory. The patient is continued to get worse even though she got a little better in the emergency room with ondansetron and fluids. Review of systems: As per history of present illness and below otherwise all systems reviewed and negative. Past medical history: As per history of present illness and as reviewed below otherwise noncontributory. Surgical history: As per history of present illness and as reviewed below otherwise noncontributory. Social history: No reported history of drug or alcohol abuse. Family history: As per history of present illness and as reviewed below otherwise noncontributory. Physical exam: Constitutional - well developed, well-nourished and in no acute distress HEENT - normocephalic, no evidence of trauma - external nose and mouth normal - no mass in neck and no JVD - mucosae moist EYES - full EOM, PERRL, no icterus - no evidence of inflammation, injection, or drainage Respiratory - no respiratory distress, equal bilateral expansion, lungs clear to auscultation and no abnormal lung sounds Cardiovascular - Regular Rhythm with S1 and S2 appreciated and no murmur, gallop or rub. GI - abdomen soft without distension or organomegaly - normal bowel sounds - no guard or rebound Musculoskeletal no gross deformity of long bones or joints - no tenderness, swelling or edema Neurologic - Alert and oriented times four - CN II-XII grossly intact - motor sensory and coordination symmetrically normal Psychiatric - appropriate mood and affect with normal thought content Hematologic - No petechiae or purpura - mucosa appropriate color and sclera not pale - normal nail bed color and refill Integument - no rash or evidence of trauma - normal turgor Diagnostics: [] Therapeutics: [] Impression: [] Plan: [] Definitive disposition and diagnosis as appropriate pending reevaluation and review of above. Abdomen Pain Score (Numeric/FACES): 8 - Related Data Allergies Allergy/AdvReac Type Severity Reaction Status Date / Time acetaminophen [From Tylenol] Allergy Liver Verified 12/06/20 01:13 Problems amoxicillin Allergy Hives Verified 12/06/20 01:13 amoxicillin trihydrate Allergy Hives Verified 12/06/20 01:13 [From Amoxil] ibuprofen Allergy Liver Verified 12/06/20 01:13 Problems ketorolac tromethamine Allergy Hives Verified 12/06/20 01:13 [From Toradol] metoclopramide HCl Allergy Airway Verified 12/06/20 01:13 [From Reglan] Tightness tramadol Allergy Hives Verified 12/06/20 01:13 haldol Allergy Swelling Uncoded 12/06/20 01:13 Home Meds: Home Meds FLUoxetine HCl [Fluoxetine HCl] 40 mg PO DAILY 01/27/19 [History] Insulin Degludec [Tresiba] 26 unit SQ DAILY 01/27/19 [History] LORazepam 1 mg PO TID 01/27/19 [History] Levothyroxine [Levothroid] 137 mcg PO ACBREAKFAST 01/27/19 [History] Morphine 15 mg PO Q4H PRN 01/27/19 [History] Rosuvastatin [Crestor] 5 mg PO BEDTIME 01/27/19 [History] levETIRAcetam [Keppra] 500 mg PO BID 01/27/19 [History] tiZANidine [Zanaflex] 4 mg PO BID 01/27/19 [History] Insuln Asp Prot/Insulin Aspart [NovoLOG Mix 70-30] 0 unit SQ ASDIRECTED 03/31/19 [History] Morphine Sulfate/Naltrexone [Embeda ER 60-2.4 mg Capsule] 1 each PO Q12HR 03/31/19 [History] Insulin Aspart [NovoLOG] 0 unit SUBCUT Q4HR pen 05/31/19 [Rx] Insulin Glarg,Human.Rec.Analog [Lantus Solostar] 12 units SUBCUT BID pen 05/31/19 [Rx] Ondansetron [Zofran ODT] 4 mg PO Q6H PRN #10 tab.dis 06/04/21 [Rx] Ondansetron [Zofran ODT] 8 mg PO Q6H PRN #24 tab.dis 12/06/20 [Rx] Past Medical History - Past Health History Medical/Surgical History: Denies Medical/Surgical History HEENT History: Reports: Allergic Rhinitis Other HEENT History: dental abcess Cardiovascular History: Reports: None Respiratory History: Reports: Asthma Gastrointestinal History: Reports: GI Bleed, Hepatitis, PUD Other Gastrointestinal History: hx of C-diff, hx of Hepatitis B Genitourinary History: Reports: UTI, Recurrent Other Genitourinary History: current UTI [employer] History: Reports: Spontaneous Other OUTS[employer]ANT [employer]ER History: had miscarriage twice Musculoskeletal History: Reports: Back Pain, Chronic, Fracture Neurological History: Reports: Migraines, Seizure 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 Psychiatric History: Reports: Anxiety, Depression Endocrine/Metabolic History: Reports: Diabetes, Type I, Hypothyroidism Other Endocrine/Metabolic History: recurrent admission for DKA Insulin Pump Model and Warper Tender: None Hematologic History: Reports: Anemia, Blood Transfusion(s) Immunologic History: Reports: None Oncologic (Cancer) History: Reports: None Dermatologic History: Reports: Other (See Below) Other Dermatologic History: wound dishiscence causing port removal R upper chest--dehiscence from inadequate diet - Infectious Disease History Infectious Disease History: Reports: C-Difficile, Chicken Pox, Hepatitis B - Past Surgical History Head Surgeries/Procedures: Reports: None HEENT Surgical History: Reports: Tonsillectomy Cardiovascular Surgical History: Reports: None Respiratory Surgical History: Reports: None Other Respiratory Surgeries/Procedures: History of Asthma at 11 years old. GI Surgical History: Reports: Appendectomy, Cholecystectomy, ERCP Female Surgical History: Reports: None Endocrine Surgical History: Reports: None Neurological Surgical History: Reports: None Musculoskeletal Surgical History: Reports: None Oncologic Surgical History: Reports: None Dermatological Surgical History: Reports: None - History Comment History Comment: She has had over [address] scans in the last 4 years. Social & Family History - Family History Family Medical History: No Pertinent Family History HEENT: Reports: Impaired Vision Cardiac: Reports: Heart Failure Respiratory: Reports: Asthma GI: Reports: None : Reports: Renal Disease/Insufficiency OBGYN: Reports: Musculoskeletal: Reports: Back pain, Chronic Neurological: Reports: Seizure Psychiatric: Reports: None Endocrine/Metabolic: Reports: Diabetes, Type I Hematologic: Reports: None Immunologic: Reports: None Dermatologic: Reports: None Oncologic: Reports: Breast, Cervix - Caffeine Use Caffeine Use: Reports: Soda Caffeine Use Comment: approximately 1 drink/day - Recreational Drug Use Recreational Drug Use: No - Living Situation & Occupation Living situation: Reports: with Significant Other, with Family, Other Occupation: Unemployed ED ROS GENERAL - Review of Systems Review Of Systems: Comprehensive ROS is negative, except as noted in HPI. ED EXAM, GENERAL - Physical Exam Exam: See Below Free Text/Narrative:: My physical exam is in the HPI Course - Vital Signs Last Recorded V/S: Last Vital Signs Temp 36.3 C 12/06/20 01:05 Pulse 96 12/06/20 02:14 Resp 18 12/06/20 02:14 BP 121/62 12/06/20 02:14 Pulse Ox 96 12/06/20 02:14 - Orders/Labs/Meds Orders: Active Orders 24 hr Category Date Time Status Sodium Chloride 0.9% [Saline Flush] Med 12/06/20 01:12 Active 10 ml FLUSH ASDIRECTED PRN Sodium Chloride 0.9% [Saline Flush] Med 12/06/20 01:12 Active 2.5 ml FLUSH ASDIRECTED PRN Saline Lock Insert [OM.PC] Stat Oth 12/06/20 01:12 Ordered Medication Orders Sodium Chloride (Sodium Chloride 0.9% 10 Ml Syringe) 10 ml FLUSH ASDIRECTED PRN PRN Reason: Keep Vein Open Sodium Chloride (Sodium Chloride 0.9% 2.5 Ml Syringe) 2.5 ml FLUSH ASDIRECTED PRN PRN Reason: Keep Vein Open Labs: Laboratory Tests 12/06/20 12/06/20 12/06/20 Range/Units 01:03 01:10 01:10 WBC 10.04 (4.0-11.0) K/uL RBC 5.51 (4.30-5.90) M/uL Hgb 16.1 H (12.0-16.0) g/dL Hct 46.2 H (36.0-46.0) % MCV 83.8 (80.0-98.0) fL MCH 29.2 (27.0-32.0) pg MCHC 34.8 (31.0-37.0) g/dL RDW Std Deviation 37.9 (28.0-62.0) fl RDW Coeff of Zak 12 (11.0-15.0) % Plt Count 325 (150-400) K/uL MPV 10.50 (7.40-12.00) fL Neut % (Auto) 70.1 (48.0-80.0) % Lymph % (Auto) 24.2 (16.0-40.0) % Piatt % (Auto) 4.8 (0.0-15.0) % Eos % (Auto) 0.6 (0.0-7.0) % Baso % (Auto) 0.3 (0.0-1.5) % Neut # (Auto) 7.0 H (1.4-5.7) K/uL Lymph # (Auto) 2.4 (0.6-2.4) K/uL Piatt # (Auto) 0.5 (0.0-0.8) K/uL Eos # (Auto) 0.1 (0.0-0.7) K/uL Baso # (Auto) 0.0 (0.0-0.1) K/uL Sodium 139 (136-145) mmol/L Potassium 4.0 (3.5-5.1) mmol/L Chloride 101 (98-107) mmol/L Carbon Dioxide 21.8 (21.0-32.0) mmol/L BUN 22 H (7.0-18.0) mg/dL Creatinine 0.8 (0.6-1.0) mg/dL Est Cr Clr Drug Dosing 73.19 mL/min Estimated GFR (MDRD) > 60.0 ml/min Glucose 257 H (74-106) mg/dL POC Glucose 245 H (70-99) mg/dL Calcium 9.5 (8.5-10.1) mg/dL Total Bilirubin 0.3 (0.2-1.0) mg/dL AST 41 H (15-37) IU/L ALT 57 (14-63) IU/L Alkaline Phosphatase 180 H (46-116) U/L Total Protein 8.5 H (6.4-8.2) g/dL Albumin 3.8 (3.4-5.0) g/dL Globulin 4.7 H (2.6-4.0) g/dL Albumin/Globulin Ratio 0.8 L (0.9-1.6) Lipase 38 L (73-393) U/L HCG, Qual (NEG) Urine Color Urine Appearance Urine pH (5.0-8.0) Ur Specific [place] (1.001-1.035) Urine Protein (NEGATIVE) mg/dL Urine Glucose (UA) (NEGATIVE) mg/dL Urine Ketones (NEGATIVE) mg/dL Urine Occult Blood (NEGATIVE) Urine Nitrite (NEGATIVE) Urine Bilirubin (NEGATIVE) Urine Ictotest Urine Urobilinogen (<2.0) EU/dL Ur Leukocyte Esterase (NEGATIVE) Urine RBC (0-2/HPF) Urine WBC (0-5/HPF) Ur Epithelial Cells (NONE-FEW) Urine Bacteria (NEGATIVE) 12/06/20 12/06/20 Range/Units 01:10 02:00 WBC (4.0-11.0) K/uL RBC (4.30-5.90) M/uL Hgb (12.0-16.0) g/dL Hct (36.0-46.0) % MCV (80.0-98.0) fL MCH (27.0-32.0) pg MCHC (31.0-37.0) g/dL RDW Std Deviation (28.0-62.0) fl RDW Coeff of Zak (11.0-15.0) % Plt Count (150-400) K/uL MPV (7.40-12.00) fL Neut % (Auto) (48.0-80.0) % Lymph % (Auto) (16.0-40.0) % Piatt % (Auto) (0.0-15.0) % Eos % (Auto) (0.0-7.0) % Baso % (Auto) (0.0-1.5) % Neut # (Auto) (1.4-5.7) K/uL Lymph # (Auto) (0.6-2.4) K/uL Piatt # (Auto) (0.0-0.8) K/uL Eos # (Auto) (0.0-0.7) K/uL Baso # (Auto) (0.0-0.1) K/uL Sodium (136-145) mmol/L Potassium (3.5-5.1) mmol/L Chloride (98-107) mmol/L Carbon Dioxide (21.0-32.0) mmol/L BUN (7.0-18.0) mg/dL Creatinine (0.6-1.0) mg/dL Est Cr Clr Drug Dosing mL/min Estimated GFR (MDRD) ml/min Glucose (74-106) mg/dL POC Glucose (70-99) mg/dL Calcium (8.5-10.1) mg/dL Total Bilirubin (0.2-1.0) mg/dL AST (15-37) IU/L ALT (14-63) IU/L Alkaline Phosphatase (46-116) U/L Total Protein (6.4-8.2) g/dL Albumin (3.4-5.0) g/dL Globulin (2.6-4.0) g/dL Albumin/Globulin Ratio (0.9-1.6) Lipase (73-393) U/L HCG, Qual NEGATIVE (NEG) Urine Color YELLOW Urine Appearance SLT CLOUDY Urine pH 6.0 (5.0-8.0) Ur Specific [place] 1.020 (1.001-1.035) Urine Protein TRACE H (NEGATIVE) mg/dL Urine Glucose (UA) >=1000 (NEGATIVE) mg/dL Urine Ketones 40 H (NEGATIVE) mg/dL Urine Occult Blood TRACE-INTACT H (NEGATIVE) Urine Nitrite NEGATIVE (NEGATIVE) Urine Bilirubin SMALL H (NEGATIVE) Urine Ictotest NEGATIVE Urine Urobilinogen 0.2 (<2.0) EU/dL Ur Leukocyte Esterase NEGATIVE (NEGATIVE) Urine RBC 0-2 (0-2/HPF) Urine WBC 0-2 (0-5/HPF) Ur Epithelial Cells FEW (NONE-FEW) Urine Bacteria FEW (NEGATIVE) Meds: Medications Generic Name Dose Route Start Last Admin Trade Name Freq PRN Reason Stop Dose Admin Sodium Chloride 10 ml 12/06/20 01:12 Sodium Chloride 0.9% 10 Ml Syringe FLUSH ASDIRECTED PRN Keep Vein Open Sodium Chloride 2.5 ml 12/06/20 01:12 Sodium Chloride 0.9% 2.5 Ml Syringe FLUSH ASDIRECTED PRN Keep Vein Open Discontinued Medications Generic Name Dose Route Start Last Admin Trade Name Freq PRN Reason Stop Dose Admin Sodium Chloride 1,000 mls @ 1,000 mls/hr 12/06/20 01:14 12/06/20 02:06 Normal Saline IV 06/07/21 02:13 1,000 mls/hr .Bolus ONE Administration Morphine Sulfate 4 mg 12/06/20 01:53 12/06/20 02:06 Morphine 4 Mg/Ml Syringe IVPUSH 12/06/20 01:54 4 mg ONETIME ONE Administration Ondansetron HCl 4 mg 12/06/20 01:15 12/06/20 02:06 Ondansetron 4 Mg/2 Ml Sdv IVPUSH 12/06/20 01:16 4 mg ONETIME ONE Administration Ondansetron HCl 4 mg 12/06/20 02:34 12/06/20 02:43 Ondansetron 4 Mg Tab.Dis PO 12/06/20 02:35 4 mg ONETIME ONE Administration Departure - Departure Time of Disposition: 03:00 Disposition: Home, Self-Care 01 Condition: Good Clinical Impression: Nausea and vomiting Qualifiers: Vomiting type: bilious vomiting Qualified Code(s): R11.14 - Bilious vomiting - Discharge Information Prescriptions: Ondansetron [Zofran ODT] 8 mg PO Q6H PRN #24 tab.dis PRN Reason: Nausea/Vomiting Instructions: Nausea and Vomiting, Adult, [id number] Referrals: Maynor Black MD [Primary Care Provider] - Forms: ED Department Discharge Additional Instructions: Drink plenty of fluids and continue your diabetes medicine. [facility] - Primary Care [address] [place] [address] [place] [address] The following information is given to patients seen in the emergency department who are being discharged to home. This information is to outline your options for follow-up care. We provide all patients seen in our emergency department with a follow-up referral. The need for follow-up, as well as the timing and circumstances, are variable depending upon the specifics of your emergency department visit. If you don't have a primary care physician on staff, we will provide you with a referral. We always advise you to contact your personal physician following an emergency department visit to inform them of the circumstance of the visit and for follow-up with them and/or the need for any referrals to a consulting specialist. The emergency department will also refer you to a specialist when appropriate. This referral assures that you have the opportunity for follow-up care with a specialist. All of these measure are taken in an effort to provide you with optimal care, which includes your follow-up. Under all circumstances we always encourage you to contact your private physician who remains a resource for coordinating your care. When calling for follow-up care, please make the office aware that this follow-up is from your recent emergency room visit. If for any reason you are refused follow-up, please contact the [facility] Emergency Department at and asked to speak to the emergency department charge nurse. Sepsis Event Note (ED) - Evaluation Sepsis Screening Result: No Definite Risk - Focused Exam Vital Signs: Vital Signs Temp Pulse Resp BP Pulse Ox 12/06/20 02:14 96 18 121/62 96 12/06/20 01:05 36.3 C 105 H 18 134/76 97 - My Orders Last 24 Hours: My Active Orders 12/06/20 01:12 Sodium Chloride 0.9% [Saline Flush] 10 ml FLUSH ASDIRECTED PRN Sodium Chloride 0.9% [Saline Flush] 2.5 ml FLUSH ASDIRECTED PRN Saline Lock Insert [OM.PC] Stat - Assessment/Plan Last 24 Hours: My Active Orders 12/06/20 01:12 Sodium Chloride 0.9% [Saline Flush] 10 ml FLUSH ASDIRECTED PRN Sodium Chloride 0.9% [Saline Flush] 2.5 ml FLUSH ASDIRECTED PRN Saline Lock Insert [OM.PC] Stat
[2020-12-06] MEDS ORDERED: Morphine 4 MG/ML Syringe IVPUSH ONE (01:53)
[2020-12-06] MEDS ORDERED: Ondansetron 4 MG Tab.DIS PO ONE (02:34)
[2020-12-06 03:19] VITALS: BP 110/60; PULSE 90
== END 2020-12-06 03:19 | disposition home or self-care (01) ==
LOC: MW.ED 00:50
DX: R11.14 Bilious vomiting (principal); E10.9 Type 1 diabetes mellitus without complications; E03.9 Hypothyroidism, unspecified; J45.909 Unspecified asthma, uncomplicated; R56.9 Unspecified convulsions; Z88.6 Allergy status to analgesic agent; Z88.0 Allergy status to penicillin; Z88.5 Allergy status to narcotic agent; Z88.8 Allergy status to other drugs, medicaments and biological substances; Z79.899 Other long term (current) drug therapy
CPT/HCPCS: 80053; 81001; 82947; 83690; 84703; 85025; 96374; 96375; 99284; A9270; J2270; J2405; J7030; 99283

== ENCOUNTER 2020-12-06 15:21 | Inpatient (IN) | payer MEDICAID ==
--- NOTE | 2020-12-06 15:33 | EDM.PDOC ---
ED HPI GENERAL MEDICAL PROBLEM - General Stated Complaint: EMS Time Seen by Provider: 12/06/20 15:31 Source of Information: Reports: Patient History Limitations: Reports: No Limitations - History of Present Illness INITIAL COMMENTS - FREE TEXT/NARRATIVE: HISTORY AND PHYSICAL: History of present illness: Patient is a 30-year-old female who presents to the emergency room with complaints of nausea, vomiting, diarrhea and unable to take her medications which since has resulted in a seizure. Patient has been seen twice before this week for hyperglycemia, nausea, vomiting, diarrhea and was discharged to home after receiving Zofran and fluids. She was discharged early this morning and states she did feel somewhat better. Today while laying in bed she had a seizure (according to her sister who witnessed the event). She states she has not been able to take her home medications due to her symptoms. She is requesting to be admitted as she "cannot keep anything down". Past medical history of GI bleed, hepatitis, seizures, type 1 diabetes, hypothyroidism, reoccurring UTI, anxiety/depression and anemia. Patient denies any fever, chills, headache, change in vision, syncope or near syncope. Denies any chest pain, back pain, shortness of breath or cough. Denies any abdominal pain, constipation or dysuria. Has not noted any blood in urine or stool. She has no concern for . Patient has been eating and drinking appropriately. Review of systems: As per history of present illness and below otherwise all systems reviewed and negative. Past medical history: As per history of present illness and as reviewed below otherwise noncontributory. Surgical history: As per history of present illness and as reviewed below otherwise noncontributory. Social history: See social history for further information Family history: As per history of present illness and as reviewed below otherwise noncontributory. Physical exam: General: Well developed and well nourished. Alert and orientated x 3. Nontoxic in appearance and in no acute distress. Vital signs are stable and have been reviewed by me. Nursing notes were reviewed. HEENT: Atraumatic, normocephalic, pupils equal and reactive bilaterally, negative for conjunctival pallor or scleral icterus, mucous membranes moist, TMs normal bilaterally, throat clear, neck supple, nontender, trachea midline. No drooling or trismus noted. No meningeal signs. No hot potato voice noted. Lungs: Clear to auscultation bilaterally. No wheezes, rales, or rhonchi. Chest nontender. Normal work of breathing, no accessory muscles used. Heart: S1S2, regular rate and rhythm without overt murmur, gallops, or rubs. No JVD. No peripheral edema Abdomen: Soft, nondistended, nontender. Normoactive bowel sounds. Negative for masses or costovertebral tenderness. Skin: Intact, warm, dry. No lesions or rashes noted. Hematologic: No petechiae or purpra. Mucosa appropriate color and normal nail bed color and refill. Extremities: Atraumatic, moves all extremities per self without difficulty or deficits, negative for cords or calf pain. Neurovascular unremarkable. Neuro: Awake, alert, oriented. Cranial nerves II through XII unremarkable. Cereb ellum unremarkable. Motor and sensory unremarkable throughout. Exam nonfocal. Psychiatric: Mood and affect are appropriate. Normal thought process. Answering questions appropriately. Notes: *This patient was seen and evaluated during the 2019 SARS-CoV-2 novel coronavirus pandemic period. Community viral transmission is ongoing at time of this encounter and the emergency department is operating under pandemic response procedures. Patient did recently have a full work-up yesterday was within normal limits. Patient's physical exam is within normal limits with the exception that she is actively vomiting. She is tearful and states that she cannot go home as she is unable to keep any of her medications down. She is requesting lab work and admission "until I feel better". She also complains of generalized body pain which she would like pain medication for. No significant findings on labs (per patient usual) although she continues to complain of nausea and states she is unable to go home. I have talked with the patient about today's findings, in addition to providing specific details for plan of care. Reassessment at the time of disposition demonstrates that the patient is in no acute distress. She does complain of feeling itchy after the morphine. We will give her some Benadryl. She continues to have nausea although has not vomited since the Zofran given. Dr. Escobedo, hospitalist on-call was consulted on her. We will admit her for intractable nausea and vomiting. Diagnostics: CBC, CMP, Lactate, UA, HCG, VBG, CXR, EKG Therapeutics: IV fluids, Zofran, Morphine, Insulin SubQ, Benadryl Impression: Intractable nausea and vomiting Hyperglycemia Plan: Observation admission to Med/Surg Definitive disposition and diagnosis as appropriate pending reevaluation and codi diop of above. - Related Data Allergies Allergy/AdvReac Type Severity Reaction Status Date / Time acetaminophen [From Tylenol] Allergy Liver Verified 12/06/20 15:39 Problems amoxicillin Allergy Hives Verified 12/06/20 15:39 amoxicillin trihydrate Allergy Hives Verified 12/06/20 15:39 [From Amoxil] ibuprofen Allergy Liver Verified 12/06/20 15:39 Problems ketorolac tromethamine Allergy Hives Verified 12/06/20 15:39 [From Toradol] metoclopramide HCl Allergy Airway Verified 12/06/20 15:39 [From Reglan] Tightness tramadol Allergy Hives Verified 12/06/20 15:39 haldol Allergy Swelling Uncoded 12/06/20 15:39 Home Meds: Home Meds FLUoxetine HCl [Fluoxetine HCl] 40 mg PO DAILY 01/27/19 [History] Insulin Degludec [Tresiba] 26 unit SQ DAILY 01/27/19 [History] LORazepam 1 mg PO TID 01/27/19 [History] Levothyroxine [Levothroid] 137 mcg PO ACBREAKFAST 01/27/19 [History] Morphine 15 mg PO Q4H PRN 01/27/19 [History] Rosuvastatin [Crestor] 5 mg PO BEDTIME 01/27/19 [History] levETIRAcetam [Keppra] 500 mg PO BID 01/27/19 [History] tiZANidine [Zanaflex] 4 mg PO BID 01/27/19 [History] Insuln Asp Prot/Insulin Aspart [NovoLOG Mix 70-30] 0 unit SQ ASDIRECTED 03/31/19 [History] Morphine Sulfate/Naltrexone [Embeda ER 60-2.4 mg Capsule] 1 each PO Q12HR 03/31/19 [History] Insulin Aspart [NovoLOG] 0 unit SUBCUT Q4HR pen 05/31/19 [Rx] Insulin Glarg,Human.Rec.Analog [Lantus Solostar] 12 units SUBCUT BID pen 05/31/19 [Rx] Ondansetron [Zofran ODT] 4 mg PO Q6H PRN #10 tab.dis 12/03/20 [Rx] Ondansetron [Zofran ODT] 8 mg PO Q6H PRN #24 tab.dis 12/06/20 [Rx] Past Medical History - Past Health History Medical/Surgical History: Denies Medical/Surgical History HEENT History: Reports: Allergic Rhinitis Other HEENT History: dental abcess Cardiovascular History: Reports: None Respiratory History: Reports: Asthma Gastrointestinal History: Reports: GI Bleed, Hepatitis, PUD Other Gastrointestinal History: hx of C-diff, hx of Hepatitis B Genitourinary History: Reports: UTI, Recurrent Other Genitourinary History: current UTI LETTER OF CREDIT DOCUMENT EXAMINER History: Reports: Spontaneous Other LETTER OF CREDIT DOCUMENT EXAMINER History: had miscarriage twice Musculoskeletal History: Reports: Back Pain, Chronic, Fracture Neurological History: Reports: Migraines, Seizure 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 Psychiatric History: Reports: Anxiety, Depression Endocrine/Metabolic History: Reports: Diabetes, Type I, Hypothyroidism Other Endocrine/Metabolic History: recurrent admission for DKA Insulin Pump Model and Community Cultural Development Officer: None Hematologic History: Reports: Anemia, Blood Transfusion(s) Immunologic History: Reports: None Oncologic (Cancer) History: Reports: None Dermatologic History: Reports: Other (See Below) Other Dermatologic History: wound dishiscence causing port removal R upper chest--dehiscence from inadequate diet - Infectious Disease History Infectious Disease History: Reports: C-Difficile, Chicken Pox, Hepatitis B - Past Surgical History Head Surgeries/Procedures: Reports: None HEENT Surgical History: Reports: Tonsillectomy Cardiovascular Surgical History: Reports: None Respiratory Surgical History: Reports: None Other Respiratory Surgeries/Procedures: History of Asthma at 11 years old. GI Surgical History: Reports: Appendectomy, Cholecystectomy, ERCP Female Surgical History: Reports: None Endocrine Surgical History: Reports: None Neurological Surgical History: Reports: None Musculoskeletal Surgical History: Reports: None Oncologic Surgical History: Reports: None Dermatological Surgical History: Reports: None - History Comment History Comment: She has had over [address] scans in the last 4 years. Social & Family History - Family History Family Medical History: No Pertinent Family History HEENT: Reports: Impaired Vision Cardiac: Reports: Heart Failure Respiratory: Reports: Asthma GI: Reports: None : Reports: Renal Disease/Insufficiency OBGYN: Reports: Musculoskeletal: Reports: Back pain, Chronic Neurological: Reports: Seizure Psychiatric: Reports: None Endocrine/Metabolic: Reports: Diabetes, Type I Hematologic: Reports: None Immunologic: Reports: None Dermatologic: Reports: None Oncologic: Reports: Breast, Cervix - Caffeine Use Caffeine Use: Reports: Soda Caffeine Use Comment: approximately 1 drink/day - Living Situation & Occupation Living situation: Reports: with Significant Other, with Family, Other Occupation: Unemployed ED ROS GENERAL - Review of Systems Review Of Systems: Comprehensive ROS is negative, except as noted in HPI. ED EXAM, GENERAL - Physical Exam Exam: See Below (See dictation) Course - Vital Signs Last Recorded V/S: Last Vital Signs Temp 97.6 F 12/06/20 15:39 Pulse 105 H 12/06/20 15:39 Resp 17 12/06/20 15:39 BP 111/56 L 12/06/20 15:39 Pulse Ox 98 12/06/20 15:39 - Orders/Labs/Meds Orders: Active Orders 24 hr Category Date Time Status EKG Documentation Completion [RC] STAT Care 12/06/20 15:51 Active Dextrose 50% in Water Med 12/06/20 16:23 Active 50 ml IVPUSH ASDIRECTED PRN Glucagon,Human Recombinant [GlucaGen] Med 12/06/20 16:23 Active 1 mg IM ASDIRECTED PRN Sodium Chloride 0.9% [Saline Flush] Med 12/06/20 15:38 Active 10 ml FLUSH ASDIRECTED PRN Sodium Chloride 0.9% [Saline Flush] Med 12/06/20 15:38 Active 2.5 ml FLUSH ASDIRECTED PRN Saline Lock Insert [OM.PC] Stat Oth 12/06/20 15:38 Ordered Medication Orders Dextrose/Water (50% Dextrose In Water 50 Ml Syringe) 50 ml IVPUSH ASDIRECTED PRN PRN Reason: Hypoglycemia Glucagon (Glucagon,Human Recombinant 1 Mg Vial) 1 mg IM ASDIRECTED PRN PRN Reason: Hypoglycemia Sodium Chloride (Sodium Chloride 0.9% 10 Ml Syringe) 10 ml FLUSH ASDIRECTED PRN PRN Reason: Keep Vein Open Last Admin: 12/06/20 15:50 Dose: 10 ml Documented by: [place] Sodium Chloride (Sodium Chloride 0.9% 2.5 Ml Syringe) 2.5 ml FLUSH ASDIRECTED PRN PRN Reason: Keep Vein Open Last Admin: 12/06/20 15:50 Dose: 2.5 ml Documented by: [place] Labs: Laboratory Tests 12/06/20 12/06/20 12/06/20 Range/Units 15:26 15:26 16:08 WBC 10.78 (4.0-11.0) K/uL RBC 5.14 (4.30-5.90) M/uL Hgb 15.1 (12.0-16.0) g/dL Hct 44.4 (36.0-46.0) % MCV 86.4 (80.0-98.0) fL MCH 29.4 (27.0-32.0) pg MCHC 34.0 (31.0-37.0) g/dL RDW Std Deviation 40.7 (28.0-62.0) fl RDW Coeff of Zak 13 (11.0-15.0) % Plt Count 336 (150-400) K/uL MPV 10.70 (7.40-12.00) fL Neut % (Auto) 80.8 H (48.0-80.0) % Lymph % (Auto) 16.2 (16.0-40.0) % Hitchcock % (Auto) 2.6 (0.0-15.0) % Eos % (Auto) 0.1 (0.0-7.0) % Baso % (Auto) 0.3 (0.0-1.5) % Neut # (Auto) 8.7 H (1.4-5.7) K/uL Lymph # (Auto) 1.8 (0.6-2.4) K/uL Hitchcock # (Auto) 0.3 (0.0-0.8) K/uL Eos # (Auto) 0.0 (0.0-0.7) K/uL Baso # (Auto) 0.0 (0.0-0.1) K/uL Nucleated RBC % 0.0 /100WBC Nucleated RBCs # 0 K/uL VBG pH 7.45 H (7.31-7.41) VBG pCO2 25 L (41-51) mmHG VBG pO2 80 mmHG VBG HCO3 17 L (23-28) mEq/L VBG Total CO2 15 L (24-29) mmol/L VBG Base Excess -4.8 L (-2.0-3.0) Sodium 139 (136-145) mmol/L Potassium 4.0 (3.5-5.1) mmol/L Chloride 101 (98-107) mmol/L Carbon Dioxide 21.9 (21.0-32.0) mmol/L BUN 15 (7.0-18.0) mg/dL Creatinine 0.7 (0.6-1.0) mg/dL Est Cr Clr Drug Dosing 83.64 mL/min Estimated GFR (MDRD) > 60.0 ml/min Glucose 290 H (74-106) mg/dL Lactic Acid (0.4-2.0) mmol/L Calcium 9.7 (8.5-10.1) mg/dL Magnesium 1.9 (1.8-2.4) mg/dL Total Bilirubin 0.4 (0.2-1.0) mg/dL AST 34 (15-37) IU/L ALT 52 (14-63) IU/L Alkaline Phosphatase 166 H (46-116) U/L Total Protein 8.1 (6.4-8.2) g/dL Albumin 3.7 (3.4-5.0) g/dL Globulin 4.4 H (2.6-4.0) g/dL Albumin/Globulin Ratio 0.8 L (0.9-1.6) Lipase 79 (73-393) U/L 12/06/20 Range/Units 16:08 WBC (4.0-11.0) K/uL RBC (4.30-5.90) M/uL Hgb (12.0-16.0) g/dL Hct (36.0-46.0) % MCV (80.0-98.0) fL MCH (27.0-32.0) pg MCHC (31.0-37.0) g/dL RDW Std Deviation (28.0-62.0) fl RDW Coeff of Zak (11.0-15.0) % Plt Count (150-400) K/uL MPV (7.40-12.00) fL Neut % (Auto) (48.0-80.0) % Lymph % (Auto) (16.0-40.0) % Hitchcock % (Auto) (0.0-15.0) % Eos % (Auto) (0.0-7.0) % Baso % (Auto) (0.0-1.5) % Neut # (Auto) (1.4-5.7) K/uL Lymph # (Auto) (0.6-2.4) K/uL Hitchcock # (Auto) (0.0-0.8) K/uL Eos # (Auto) (0.0-0.7) K/uL Baso # (Auto) (0.0-0.1) K/uL Nucleated RBC % /100WBC Nucleated RBCs # K/uL VBG pH (7.31-7.41) VBG pCO2 (41-51) mmHG VBG pO2 mmHG VBG HCO3 (23-28) mEq/L VBG Total CO2 (24-29) mmol/L VBG Base Excess (-2.0-3.0) Sodium (136-145) mmol/L Potassium (3.5-5.1) mmol/L Chloride (98-107) mmol/L Carbon Dioxide (21.0-32.0) mmol/L BUN (7.0-18.0) mg/dL Creatinine (0.6-1.0) mg/dL Est Cr Clr Drug Dosing mL/min Estimated GFR (MDRD) ml/min Glucose (74-106) mg/dL Lactic Acid 1.5 (0.4-2.0) mmol/L Calcium (8.5-10.1) mg/dL Magnesium (1.8-2.4) mg/dL Total Bilirubin (0.2-1.0) mg/dL AST (15-37) IU/L ALT (14-63) IU/L Alkaline Phosphatase (46-116) U/L Total Protein (6.4-8.2) g/dL Albumin (3.4-5.0) g/dL Globulin (2.6-4.0) g/dL Albumin/Globulin Ratio (0.9-1.6) Lipase (73-393) U/L Meds: Medications Generic Name Dose Route Start Last Admin Trade Name Freq PRN Reason Stop Dose Admin Dextrose/Water 50 ml 12/06/20 16:23 50% Dextrose In Water 50 Ml Syringe IVPUSH ASDIRECTED PRN Hypoglycemia Glucagon 1 mg 12/06/20 16:23 Glucagon,Human Recombinant 1 Mg Vial IM ASDIRECTED PRN Hypoglycemia Sodium Chloride 10 ml 12/06/20 15:38 12/06/20 15:50 Sodium Chloride 0.9% 10 Ml Syringe FLUSH 10 ml ASDIRECTED PRN Administration Keep Vein Open Sodium Chloride 2.5 ml 12/06/20 15:38 12/06/20 15:50 Sodium Chloride 0.9% 2.5 Ml Syringe FLUSH 2.5 ml ASDIRECTED PRN Administration Keep Vein Open Discontinued Medications Generic Name Dose Route Start Last Admin Trade Name Freq PRN Reason Stop Dose Admin Diphenhydramine HCl 25 mg 12/06/20 18:06 12/06/20 18:41 Diphenhydramine 50 Mg/Ml Sdv IVPUSH 12/06/20 18:07 25 mg ONETIME ONE Administration Sodium Chloride 1,000 mls @ 999 mls/hr 12/06/20 15:38 12/06/20 15:47 Normal Saline IV 12/06/20 16:38 999 mls/hr STAT ONE Administration Sodium Chloride 1,000 mls @ 999 mls/hr 12/06/20 15:39 12/06/20 17:38 Normal Saline IV 12/06/20 16:39 Not Given STAT ONE Insulin Human Regular 5 unit 12/06/20 16:23 12/06/20 17:05 Insulin Regular, Human 100 Units/Ml 10 Ml Vial SUBCUT 12/06/20 16:24 5 units ONETIME ONE Administration Protocol Morphine Sulfate 2 mg 12/06/20 16:23 12/06/20 17:04 Morphine 2 Mg/Ml Syringe IVPUSH 12/06/20 16:24 2 mg ONETIME ONE Administration Ondansetron HCl 4 mg 12/06/20 15:39 12/06/20 15:47 Ondansetron 4 Mg/2 Ml Sdv IVPUSH 12/06/20 15:40 4 mg ONETIME ONE Administration Departure - Departure Time of Disposition: 19:45 Disposition: Refer to Observation Clinical Impression: Hyperglycemia due to type 1 diabetes mellitus, Intractable vomiting with nausea - Discharge Information Sepsis Event Note (ED) - Focused Exam Vital Signs: Vital Signs Temp Pulse Resp BP Pulse Ox 12/06/20 15:39 97.6 F 105 H 17 111/56 L 98 - My Orders Last 24 Hours: My Active Orders 12/06/20 15:38 Sodium Chloride 0.9% [Saline Flush] 10 ml FLUSH ASDIRECTED PRN Sodium Chloride 0.9% [Saline Flush] 2.5 ml FLUSH ASDIRECTED PRN Saline Lock Insert [OM.PC] Stat 12/06/20 15:51 EKG Documentation Completion [RC] STAT 12/06/20 16:23 Dextrose 50% in Water 50 ml IVPUSH ASDIRECTED PRN Glucagon,Human Recombinant [GlucaGen] 1 mg IM ASDIRECTED PRN - Assessment/Plan Last 24 Hours: My Active Orders 12/06/20 15:38 Sodium Chloride 0.9% [Saline Flush] 10 ml FLUSH ASDIRECTED PRN Sodium Chloride 0.9% [Saline Flush] 2.5 ml FLUSH ASDIRECTED PRN Saline Lock Insert [OM.PC] Stat 12/06/20 15:51 EKG Documentation Completion [RC] STAT 12/06/20 16:23 Dextrose 50% in Water 50 ml IVPUSH ASDIRECTED PRN Glucagon,Human Recombinant [GlucaGen] 1 mg IM ASDIRECTED PRN
[2020-12-06] MEDS ORDERED: Sodium Chloride 0.9% 10 ML Syringe FLUSH PRN (15:38)
[2020-12-06] MEDS ORDERED: Sodium Chloride 0.9% 1,000 ML IV ONE ×2 (15:38→15:39)
[2020-12-06] MEDS ORDERED: Ondansetron 4 MG/2 ML SDV IVPUSH ONE (15:39)
[2020-12-06] MEDS: Sodium Chloride 0.9% 2.5 ML Syringe FLUSH PRN (15:50)
[2020-12-06 16:00] LABS: BLOOD UREA NITROGEN,BUN 15 mg/dL (7.0-18.0); CARBON DIOXIDE,CO2 21.9 mmol/L (21.0-32.0); CHLORIDE,CL 101 mmol/L (98-107); GLUCOSE RANDOM 290 mg/dL (74-106); LIPASE 79 U/L (73-393); SODIUM,NA 139 mmol/L (136-145)
[2020-12-06] MEDS ORDERED: 50% Dextrose in Water 50 ML Syringe IVPUSH PRN ×2 (16:23→20:05)
[2020-12-06] MEDS ORDERED: Glucagon,Human Recombinant 1 MG Vial IM PRN ×2 (16:23→20:05)
[2020-12-06] MEDS ORDERED: Morphine 2 MG/ML SYRINGE IVPUSH ONE (16:23)
[2020-12-06] MEDS ORDERED: Insulin Regular, Human 100 Units/ML 10 ML Vial SUBCUT ONE (16:23)
--- NOTE | 2020-12-06 17:25 | PCM.EKG ---
#1 Interpretation EKG Interpretation Comments: EKG: As interpreted by ER physician: Meche: Nonspecific ST-T wave abnormalities Normal axis No evidence of ST elevation [place] Sinus tachycardia at 107
[2020-12-06] MEDS ORDERED: diphenhydrAMINE 50 MG/ML SDV IVPUSH ONE (18:06)
--- NOTE | 2020-12-06 19:23 | CR ---
For Patients: As a result of the Century Cures Act, medical imaging exams and procedure reports are released immediately into your electronic medical record. You may view this report before your referring provider. If you have questions, please contact your health care provider. INDICATION: Pain, shortness of breath. TECHNIQUE: Chest 1 view. COMPARISON: 05/28/2019. FINDINGS: Cardiovascular and mediastinum: Heart size and vasculature are normal in caliber and appearance. Mediastinum is within normal limits. Lungs and pleural space: Lungs are clear. No sign of infiltrate or mass. No sign of pleural effusion. No pneumothorax. Bones and soft tissues: No significant findings. IMPRESSION: Lungs are clear. Dictated by Matheus Brown MD @ 12/06/2020 7:21:[address] Matheus Brown @ Dec 06 2020 7:21PM
[2020-12-06] MEDS ORDERED: HYDROmorphone 2 MG/ML Syringe IVPUSH PRN (19:57)
--- NOTE | 2020-12-06 20:46 | PCM.HP.2 ---
H&P History of Present Illness - General Date of Service: 12/06/20 Admit Problem/Dx: Admission Diagnosis/Problem Admission Diagnosis/Problem Intractable vomiting Source of Information: Patient - Related Data Allergies/Adverse Reactions: Allergies Allergy/AdvReac Type Severity Reaction Status Date / Time acetaminophen [From Tylenol] Allergy Liver Verified 12/06/20 20:37 Problems amoxicillin Allergy Hives Verified 12/06/20 20:37 amoxicillin trihydrate Allergy Hives Verified 12/06/20 20:37 [From Amoxil] ibuprofen Allergy Liver Verified 12/06/20 20:37 Problems ketorolac tromethamine Allergy Hives Verified 12/06/20 20:37 [From Toradol] metoclopramide HCl Allergy Airway Verified 12/06/20 20:37 [From Reglan] Tightness tramadol Allergy Hives Verified 12/06/20 20:37 haldol Allergy Swelling Uncoded 12/06/20 20:37 Home Medications: Home Meds FLUoxetine HCl [Fluoxetine HCl] 40 mg PO DAILY 01/27/19 [History] LORazepam 1 mg PO TID 01/27/19 [History] Levothyroxine [Levothroid] 137 mcg PO ACBREAKFAST 01/27/19 [History] Morphine 15 mg PO Q4H PRN 01/27/19 [History] Rosuvastatin [Crestor] 5 mg PO BEDTIME 01/27/19 [History] levETIRAcetam [Keppra] 500 mg PO BID 01/27/19 [History] tiZANidine [Zanaflex] 4 mg PO BID 01/27/19 [History] Insuln Asp Prot/Insulin Aspart [NovoLOG Mix 70-30] 5 unit SQ WITHMEALSANDBED 03/31/19 [History] Insulin Aspart [NovoLOG] 5 unit SQ TIDMEALS 12/06/20 [History] Insulin Aspart [NovoLOG] 5 units SQ TIDMEALS 12/06/20 [History] Ondansetron [Zofran ODT] 8 mg PO Q6H PRN #24 tab.dis 12/06/20 [Rx] Past Medical History - Past Health History Medical/Surgical History: Denies Medical/Surgical History HEENT History: Reports: Allergic Rhinitis Other HEENT History: dental abcess Cardiovascular History: Reports: None Respiratory History: Reports: Asthma Gastrointestinal History: Reports: GI Bleed, Hepatitis, PUD Other Gastrointestinal History: hx of C-diff, hx of Hepatitis B Genitourinary History: Reports: UTI, Recurrent Other Genitourinary History: current UTI PSYCHOLOGIST COUNSELING History: Reports: Spontaneous Other OB/BYN History: had miscarriage twice Musculoskeletal History: Reports: Back Pain, Chronic, Fracture Neurological History: Reports: Migraines, Seizure 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 Psychiatric History: Reports: Anxiety, Depression Endocrine/Metabolic History: Reports: Diabetes, Type I, Hypothyroidism Other Endocrine/Metabolic History: recurrent admission for DKA Insulin Pump Model and Money Position Officer: None Hematologic History: Reports: Anemia, Blood Transfusion(s) Immunologic History: Reports: None Oncologic (Cancer) History: Reports: None Dermatologic History: Reports: Other (See Below) Other Dermatologic History: wound dishiscence causing port removal R upper chest--dehiscence from inadequate diet - Infectious Disease History Infectious Disease History: Reports: C-Difficile, Chicken Pox, Hepatitis B - Past Surgical History Head Surgeries/Procedures: Reports: None HEENT Surgical History: Reports: Tonsillectomy Cardiovascular Surgical History: Reports: None Respiratory Surgical History: Reports: None Other Respiratory Surgeries/Procedures: History of Asthma at 11 years old. GI Surgical History: Reports: Appendectomy, Cholecystectomy, ERCP Female Surgical History: Reports: None Endocrine Surgical History: Reports: None Neurological Surgical History: Reports: None Musculoskeletal Surgical History: Reports: None Oncologic Surgical History: Reports: None Dermatological Surgical History: Reports: None - History Comment History Comment: She has had over [address] scans in the last 4 years. Social & Family History - Family History Family Medical History: No Pertinent Family History HEENT: Reports: Impaired Vision Cardiac: Reports: Heart Failure Respiratory: Reports: Asthma GI: Reports: None : Reports: Renal Disease/Insufficiency OBGYN: Reports: Musculoskeletal: Reports: Back pain, Chronic Neurological: Reports: Seizure Psychiatric: Reports: None Endocrine/Metabolic: Reports: Diabetes, Type I Hematologic: Reports: None Immunologic: Reports: None Dermatologic: Reports: None Oncologic: Reports: Breast, Cervix - Tobacco Use Tobacco Use Status *Q: Never Tobacco User - Caffeine Use Caffeine Use: Reports: None Caffeine Use Comment: approximately 1 drink/day - Recreational Drug Use Recreational Drug Use: No - Living Situation & Occupation Living situation: Reports: with Significant Other, with Family, Other Occupation: Unemployed H&P Review of Systems - Review of Systems: Review Of Systems: See Below General: Reports: Chills, Weakness, Fatigue, Decreased Appetite HEENT: Reports: No Symptoms Pulmonary: Reports: No Symptoms Cardiovascular: Reports: No Symptoms. Denies: Palpitations Gastrointestinal: Reports: Abdominal Pain, Anorexia, Diarrhea, Decreased Appetite, Nausea, Vomiting Musculoskeletal: Reports: No Symptoms Skin: Reports: No Symptoms Psychiatric: Reports: No Symptoms Neurological: Reports: No Symptoms Hematologic/Lymphatic: Reports: No Symptoms Exam - Exam Exam: See Below - Vital Signs Vital Signs: Last Vital Signs Temp 97.1 F 12/06/20 19:57 Pulse 105 H 12/06/20 19:57 Resp 20 12/06/20 19:57 BP 120/81 12/06/20 19:57 Pulse Ox 97 12/06/20 19:57 Weight: 165 lb - Exam General: Alert, Oriented, Cooperative HEENT: Conjunctiva Clear, EACs Clear, PERRLA Neck: Supple Lungs: Clear to Auscultation, Normal Respiratory Effort Cardiovascular: Regular Rhythm, Tachycardia GI/Abdominal Exam: Normal Bowel Sounds, Soft, Tender Extremities: Normal Inspection, Normal Range of Motion, Normal Capillary Refill, Pedal Edema Peripheral Pulses: 2+: Carotid (L), Carotid (R), Dorsalis Pedis (L), Dorsalis Pedis (R) Skin: Warm, Dry Neurological: Cranial Nerves Intact, Reflexes Equal Bilateral Neuro Extensive - Mental Status: Alert, Oriented x3, Normal Mood/Affect, Normal Cognition Neuro Extensive - Motor, Sensory, Reflexes: CN II-XII Intact, Normal Gait Psychiatric: Alert, Normal Affect, Normal Mood - Patient Data Lab Results Last 24 hrs: Laboratory Results - last 24 hr 12/06/20 12/06/20 12/06/20 Range/Units 15:26 15:26 16:08 WBC 10.78 (4.0-11.0) K/uL RBC 5.14 (4.30-5.90) M/uL Hgb 15.1 (12.0-16.0) g/dL Hct 44.4 (36.0-46.0) % MCV 86.4 (80.0-98.0) fL MCH 29.4 (27.0-32.0) pg MCHC 34.0 (31.0-37.0) g/dL RDW Std Deviation 40.7 (28.0-62.0) fl RDW Coeff of Zak 13 (11.0-15.0) % Plt Count 336 (150-400) K/uL MPV 10.70 (7.40-12.00) fL Neut % (Auto) 80.8 H (48.0-80.0) % Lymph % (Auto) 16.2 (16.0-40.0) % Murray % (Auto) 2.6 (0.0-15.0) % Eos % (Auto) 0.1 (0.0-7.0) % Baso % (Auto) 0.3 (0.0-1.5) % Neut # (Auto) 8.7 H (1.4-5.7) K/uL Lymph # (Auto) 1.8 (0.6-2.4) K/uL Murray # (Auto) 0.3 (0.0-0.8) K/uL Eos # (Auto) 0.0 (0.0-0.7) K/uL Baso # (Auto) 0.0 (0.0-0.1) K/uL Nucleated RBC % 0.0 /100WBC Nucleated RBCs # 0 K/uL VBG pH 7.45 H (7.31-7.41) VBG pCO2 25 L (41-51) mmHG VBG pO2 80 mmHG VBG HCO3 17 L (23-28) mEq/L VBG Total CO2 15 L (24-29) mmol/L VBG Base Excess -4.8 L (-2.0-3.0) Sodium 139 (136-145) mmol/L Potassium 4.0 (3.5-5.1) mmol/L Chloride 101 (98-107) mmol/L Carbon Dioxide 21.9 (21.0-32.0) mmol/L BUN 15 (7.0-18.0) mg/dL Creatinine 0.7 (0.6-1.0) mg/dL Est Cr Clr Drug Dosing 83.64 mL/min Estimated GFR (MDRD) > 60.0 ml/min Glucose 290 H (74-106) mg/dL Lactic Acid (0.4-2.0) mmol/L Calcium 9.7 (8.5-10.1) mg/dL Magnesium 1.9 (1.8-2.4) mg/dL Total Bilirubin 0.4 (0.2-1.0) mg/dL AST 34 (15-37) IU/L ALT 52 (14-63) IU/L Alkaline Phosphatase 166 H (46-116) U/L Total Protein 8.1 (6.4-8.2) g/dL Albumin 3.7 (3.4-5.0) g/dL Globulin 4.4 H (2.6-4.0) g/dL Albumin/Globulin Ratio 0.8 L (0.9-1.6) Lipase 79 (73-393) U/L Urine Color Urine Appearance Urine pH (5.0-8.0) Ur Specific [employer] (1.001-1.035) Urine Protein (NEGATIVE) mg/dL Urine Glucose (UA) (NEGATIVE) mg/dL Urine Ketones (NEGATIVE) mg/dL Urine Occult Blood (NEGATIVE) Urine Nitrite (NEGATIVE) Urine Bilirubin (NEGATIVE) Urine Urobilinogen (<2.0) EU/dL Ur Leukocyte Esterase (NEGATIVE) Urine RBC (0-2/HPF) Urine WBC (0-5/HPF) Ur Epithelial Cells (NONE-FEW) Urine Bacteria (NEGATIVE) Urine HCG, Qual (NEGATIVE) SARS-CoV-2 RNA (NADIA) (NEGATIVE) 12/06/20 12/06/20 12/06/20 Range/Units 16:08 17:09 17:09 WBC (4.0-11.0) K/uL RBC (4.30-5.90) M/uL Hgb (12.0-16.0) g/dL Hct (36.0-46.0) % MCV (80.0-98.0) fL MCH (27.0-32.0) pg MCHC (31.0-37.0) g/dL RDW Std Deviation (28.0-62.0) fl RDW Coeff of Zak (11.0-15.0) % Plt Count (150-400) K/uL MPV (7.40-12.00) fL Neut % (Auto) (48.0-80.0) % Lymph % (Auto) (16.0-40.0) % Murray % (Auto) (0.0-15.0) % Eos % (Auto) (0.0-7.0) % Baso % (Auto) (0.0-1.5) % Neut # (Auto) (1.4-5.7) K/uL Lymph # (Auto) (0.6-2.4) K/uL Murray # (Auto) (0.0-0.8) K/uL Eos # (Auto) (0.0-0.7) K/uL Baso # (Auto) (0.0-0.1) K/uL Nucleated RBC % /100WBC Nucleated RBCs # K/uL VBG pH (7.31-7.41) VBG pCO2 (41-51) mmHG VBG pO2 mmHG VBG HCO3 (23-28) mEq/L VBG Total CO2 (24-29) mmol/L VBG Base Excess (-2.0-3.0) Sodium (136-145) mmol/L Potassium (3.5-5.1) mmol/L Chloride (98-107) mmol/L Carbon Dioxide (21.0-32.0) mmol/L BUN (7.0-18.0) mg/dL Creatinine (0.6-1.0) mg/dL Est Cr Clr Drug Dosing mL/min Estimated GFR (MDRD) ml/min Glucose (74-106) mg/dL Lactic Acid 1.5 (0.4-2.0) mmol/L Calcium (8.5-10.1) mg/dL Magnesium (1.8-2.4) mg/dL Total Bilirubin (0.2-1.0) mg/dL AST (15-37) IU/L ALT (14-63) IU/L Alkaline Phosphatase (46-116) U/L Total Protein (6.4-8.2) g/dL Albumin (3.4-5.0) g/dL Globulin (2.6-4.0) g/dL Albumin/Globulin Ratio (0.9-1.6) Lipase (73-393) U/L Urine Color YELLOW Urine Appearance CLEAR Urine pH 6.0 (5.0-8.0) Ur Specific [employer] 1.020 (1.001-1.035) Urine Protein NEGATIVE (NEGATIVE) mg/dL Urine Glucose (UA) >=1000 (NEGATIVE) mg/dL Urine Ketones >=80 (NEGATIVE) mg/dL Urine Occult Blood SMALL H (NEGATIVE) Urine Nitrite NEGATIVE (NEGATIVE) Urine Bilirubin NEGATIVE (NEGATIVE) Urine Urobilinogen 0.2 (<2.0) EU/dL Ur Leukocyte Esterase NEGATIVE (NEGATIVE) Urine RBC 0-1 (0-2/HPF) Urine WBC 0-1 (0-5/HPF) Ur Epithelial Cells RARE (NONE-FEW) Urine Bacteria RARE (NEGATIVE) Urine HCG, Qual NEGATIVE (NEGATIVE) SARS-CoV-2 RNA (NADIA) (NEGATIVE) 12/06/20 Range/Units 17:09 WBC (4.0-11.0) K/uL RBC (4.30-5.90) M/uL Hgb (12.0-16.0) g/dL Hct (36.0-46.0) % MCV (80.0-98.0) fL MCH (27.0-32.0) pg MCHC (31.0-37.0) g/dL RDW Std Deviation (28.0-62.0) fl RDW Coeff of Zak (11.0-15.0) % Plt Count (150-400) K/uL MPV (7.40-12.00) fL Neut % (Auto) (48.0-80.0) % Lymph % (Auto) (16.0-40.0) % Murray % (Auto) (0.0-15.0) % Eos % (Auto) (0.0-7.0) % Baso % (Auto) (0.0-1.5) % Neut # (Auto) (1.4-5.7) K/uL Lymph # (Auto) (0.6-2.4) K/uL Murray # (Auto) (0.0-0.8) K/uL Eos # (Auto) (0.0-0.7) K/uL Baso # (Auto) (0.0-0.1) K/uL Nucleated RBC % /100WBC Nucleated RBCs # K/uL VBG pH (7.31-7.41) VBG pCO2 (41-51) mmHG VBG pO2 mmHG VBG HCO3 (23-28) mEq/L VBG Total CO2 (24-29) mmol/L VBG Base Excess (-2.0-3.0) Sodium (136-145) mmol/L Potassium (3.5-5.1) mmol/L Chloride (98-107) mmol/L Carbon Dioxide (21.0-32.0) mmol/L BUN (7.0-18.0) mg/dL Creatinine (0.6-1.0) mg/dL Est Cr Clr Drug Dosing mL/min Estimated GFR (MDRD) ml/min Glucose (74-106) mg/dL Lactic Acid (0.4-2.0) mmol/L Calcium (8.5-10.1) mg/dL Magnesium (1.8-2.4) mg/dL Total Bilirubin (0.2-1.0) mg/dL AST (15-37) IU/L ALT (14-63) IU/L Alkaline Phosphatase (46-116) U/L Total Protein (6.4-8.2) g/dL Albumin (3.4-5.0) g/dL Globulin (2.6-4.0) g/dL Albumin/Globulin Ratio (0.9-1.6) Lipase (73-393) U/L Urine Color Urine Appearance Urine pH (5.0-8.0) Ur Specific [employer] (1.001-1.035) Urine Protein (NEGATIVE) mg/dL Urine Glucose (UA) (NEGATIVE) mg/dL Urine Ketones (NEGATIVE) mg/dL Urine Occult Blood (NEGATIVE) Urine Nitrite (NEGATIVE) Urine Bilirubin (NEGATIVE) Urine Urobilinogen (<2.0) EU/dL Ur Leukocyte Esterase (NEGATIVE) Urine RBC (0-2/HPF) Urine WBC (0-5/HPF) Ur Epithelial Cells (NONE-FEW) Urine Bacteria (NEGATIVE) Urine HCG, Qual (NEGATIVE) SARS-CoV-2 RNA (NADIA) NEGATIVE (NEGATIVE) Result Diagrams: 12/06/20 15:26 12/06/20 15:26 Sepsis Event Note - Evaluation Sepsis Screening Result: No Definite Risk - Focused Exam Vital Signs: Vital Signs Temp Pulse Resp BP Pulse Ox 12/06/20 19:57 97.1 F 105 H 20 120/81 97 12/06/20 15:39 97.6 F 105 H 17 111/56 L 98 Problem List Initiated/Reviewed/Updated: Yes Orders Last 24hrs: Active Orders 24 hr Category Date Time Status Admission Status [Patient Status] [ADT] Stat ADT 12/06/20 16:54 Active Antiembolic Devices [RC] PER UNIT ROUTINE Care 12/06/20 19:59 Active Blood Glucose Check, Bedside [RC] TIDAC Care 12/06/20 19:57 Active EKG Documentation Completion [RC] STAT Care 12/06/20 15:51 Active Oxygen Therapy [RC] PRN Care 12/06/20 19:57 Active Up With Assistance [RC] ASDIRECTED Care 12/06/20 19:57 Active VTE/DVT Education [RC] PER UNIT ROUTINE Care 12/06/20 19:57 Active Vital Signs [RC] Q4H Care 12/06/20 19:57 Active Consult to Diabetic Nurse Specialist [CONS] Routine Cons 12/06/20 19:57 Active NPO [Nothing Per Oral Diet] [DIET] Diet 12/07/20 Breakfast Active BMP [BASIC METABOLIC PANEL,BMP] [CHEM] Timed Lab 12/06/20 22:00 Ordered CBC WITH AUTO DIFF [HEME] AM Lab 12/07/20 05:11 Ordered COMPREHENSIVE METABOLIC PN,CMP [CHEM] AM Lab 12/07/20 05:11 Ordered MAGNESIUM [CHEM] AM Lab 12/07/20 05:11 Ordered PHOSPHORUS [CHEM] AM Lab 12/07/20 05:11 Ordered Dextrose 50% in Water Med 12/06/20 20:05 Active 50 ml IVPUSH ASDIRECTED PRN FLUoxetine [PROzac] Med 12/07/20 09:00 Pending 40 mg PO DAILY Glucagon,Human Recombinant [GlucaGen] Med 12/06/20 20:05 Active 1 mg IM ASDIRECTED PRN HYDROmorphone [Dilaudid] Med 12/06/20 20:04 Active 1 mg IVPUSH Q3H PRN Insulin Detemir [Levemir] Med 12/06/20 21:00 Pending 12 unit SUBCUT BEDTIME LORazepam [Ativan] Med 12/06/20 22:00 Active 1 mg PO TID Lactated Ringers [Ringers, Lactated] 1,000 ml Med 12/06/20 20:00 Active IV ASDIRECTED Levothyroxine [Levothroid] Med 12/07/20 07:30 Pending 137 mcg PO ACBREAKFAST Ondansetron [Zofran ODT] Med 12/06/20 19:57 Active 4 mg PO Q4H PRN Rosuvastatin Med 12/06/20 21:00 Pending 5 mg PO BEDTIME Sodium Chloride 0.9% [Saline Flush] Med 12/06/20 15:38 Active 10 ml FLUSH ASDIRECTED PRN Sodium Chloride 0.9% [Saline Flush] Med 12/06/20 15:38 Active 2.5 ml FLUSH ASDIRECTED PRN levETIRAcetam [Keppra] 500 mg Med 12/06/20 21:00 Active Dextrose 5% in Water 100 ml IV Q12H tiZANidine [Zanaflex] Med 12/06/20 21:00 Pending 4 mg PO BID Saline Lock Insert [OM.PC] Stat Oth 12/06/20 15:38 Ordered Sequential Compression Device [OM.PC] Per Unit Routine Oth 12/06/20 19:58 Ordered Resuscitation Status Routine Resus Stat 12/06/20 19:57 Ordered Medication Orders Dextrose/Water (50% Dextrose In Water 50 Ml Syringe) 50 ml IVPUSH ASDIRECTED PRN PRN Reason: Hypoglycemia Fluoxetine HCl (Fluoxetine 20 Mg Cap) 40 mg PO DAILY PIPPA Glucagon (Glucagon,Human Recombinant 1 Mg Vial) 1 mg IM ASDIRECTED PRN PRN Reason: Hypoglycemia Hydromorphone HCl (Hydromorphone 1 Mg/Ml Syringe) 1 mg IVPUSH Q3H PRN PRN Reason: Pain (severe 7-10) Lactated Ringer's (Ringers, Lactated) 1,000 mls @ 150 mls/hr IV ASDIRECTED PIPPA Levetiracetam 500 mg/ Dextrose (/Water) 105 mls @ 420 mls/hr IV Q12H PIPPA Insulin Detemir (Insulin Detemir 100 Units/Ml 3 Ml Pen) 12 unit SUBCUT BEDTIME PIPPA Lorazepam (Lorazepam 1 Mg Tab) 1 mg PO TID [place] Non-Formulary Medication (Levothyroxine [Levothroid]) 137 mcg PO ACBREAKFAST PIP[place] Non-Formulary Medication (Rosuvastatin) 5 mg PO BEDTIME PIPPA Ondansetron HCl (Ondansetron 4 Mg Tab.Dis) 4 mg PO Q4H PRN PRN Reason: nausea, able to take PO Sodium Chloride (Sodium Chloride 0.9% 10 Ml Syringe) 10 ml FLUSH ASDIRECTED PRN PRN Reason: Keep Vein Open Last Admin: 12/06/20 15:50 Dose: 10 ml Documented by: [place] Sodium Chloride (Sodium Chloride 0.9% 2.5 Ml Syringe) 2.5 ml FLUSH ASDIRECTED PRN PRN Reason: Keep Vein Open Last Admin: 12/06/20 15:50 Dose: 2.5 ml Documented by: [place] Tizanidine HCl (Tizanidine 4 Mg Tab) 4 mg PO BID [facility] Assessment/Plan Comment:: 30-year-old female with complex past medical history including type 1 diabetes mellitus and seizure disorder presented with significant nausea vomiting and diarrhea, unable to tolerate p.o. intake and experienced a seizure earlier today. 1. Gastroparesis: Maintain hydration with 150 mL LR, Substitute p.o. medications for IV 2. Hyperglycemia secondary to type 1 diabetes mellitus: Blood sugar of 290, Start bedtime Levemir 12 units, sliding scale, check sugars 3 times daily AC, Consult diabetes education 3. History of seizure disorder: Unable to tolerate p.o., had experienced seizure earlier today, resume home dose of Keppra however converting to IV form., Continue to monitor closely as well as continue to monitor electrolytes.
[2020-12-06] MEDS: Lactated Ringers 1,000 ML IV SCH (20:57)
[2020-12-06] MEDS ORDERED: Non-Formulary Medication 1 Each (Rosuvastatin 5 MG Tablet) PO SCH ×2 (21:00)
[2020-12-06] MEDS ORDERED: tiZANidine 4 MG Tab PO SCH (21:00)
[2020-12-06] MEDS ORDERED: Insulin Detemir 100 Units/ML 3 ML Pen SUBCUT SCH (21:00)
[2020-12-06] MEDS ORDERED: levETIRAcetam 500 MG Tab PO SCH (21:00)
[2020-12-06] MEDS: Ondansetron 4 MG Tab.DIS PO PRN (21:09)
[2020-12-06] MEDS: HYDROmorphone 1 MG/ML Syringe IVPUSH PRN (21:33)
[2020-12-06] MEDS: LORazepam 1 MG Tab PO SCH (22:03)
[2020-12-06] MEDS ORDERED: Rosuvastatin 10 MG Tab PO ONE (23:00)
[2020-12-06] MEDS ORDERED: tiZANidine 4 MG Tab PO ONE (23:00)
[2020-12-06] MEDS ORDERED: Insulin Detemir 100 Units/ML 3 ML Pen SUBCUT ONE (23:00)
[2020-12-06] MEDS ORDERED: diphenhydrAMINE 25 MG Cap PO ONE (23:09)
[2020-12-06 23:28] LABS: BLOOD UREA NITROGEN,BUN 12 mg/dL (7.0-18.0); CARBON DIOXIDE,CO2 20.5 mmol/L (21.0-32.0); CHLORIDE,CL 100 mmol/L (98-107); GLUCOSE RANDOM 293 mg/dL (74-106); POTASSIUM,K 4.4 mmol/L (3.5-5.1); SODIUM,NA 141 mmol/L (136-145)
[2020-12-07] MEDS: HYDROmorphone 1 MG/ML Syringe IVPUSH PRN ×7 (00:50→22:01)
[2020-12-07] MEDS: Lactated Ringers 1,000 ML IV SCH ×3 (03:50→16:54)
[2020-12-07] MEDS: Ondansetron 4 MG Tab.DIS PO PRN ×2 (04:00→08:47)
[2020-12-07 06:35] LABS: BLOOD UREA NITROGEN,BUN 11 mg/dL (7.0-18.0); CARBON DIOXIDE,CO2 14.4 mmol/L (21.0-32.0); CHLORIDE,CL 104 mmol/L (98-107); GLUCOSE RANDOM 309 mg/dL (74-106); POTASSIUM,K 4.2 mmol/L (3.5-5.1); SODIUM,NA 140 mmol/L (136-145)
[2020-12-07] MEDS: Levothyroxine 112 MCG Tab PO SCH (06:38)
[2020-12-07] MEDS: Levothyroxine 25 MCG Tab PO SCH (06:39)
[2020-12-07] MEDS: LORazepam 1 MG Tab PO SCH ×3 (06:39→21:59)
[2020-12-07] MEDS ORDERED: Non-Formulary Medication 1 Each (Levothyroxine [Levothroid] 137 MCG Tablet) PO SCH ×2 (07:30)
[2020-12-07] MEDS ORDERED: 50% Dextrose in Water 50 ML Syringe IVPUSH PRN (07:45)
[2020-12-07] MEDS ORDERED: Glucagon,Human Recombinant 1 MG Vial IM PRN (07:45)
[2020-12-07] MEDS: tiZANidine 4 MG Tab PO SCH ×2 (08:47→20:43)
[2020-12-07] MEDS: FLUoxetine 20 MG Cap PO SCH (08:47)
[2020-12-07] MEDS ORDERED: FLUoxetine 20 MG Cap PO SCH (09:00)
[2020-12-07] MEDS: Insulin Aspart 100 Units/ML 3 ML Pen SUBCUT SCH ×3 (09:26→18:11)
[2020-12-07] MEDS: Sodium Chloride 0.9% 2.5 ML Syringe FLUSH PRN (10:14)
[2020-12-07] MEDS: Pantoprazole 40 MG in Sodium Chloride 0.9% 10 ML IV SCH (11:23)
[2020-12-07] MEDS: Promethazine 25 MG/ML SDV IM PRN (11:25)
--- NOTE | 2020-12-07 17:49 | PCM.PN ---
<Chandni Weaver - Last Filed: 12/07/20 17:42> - General Info Date of Service: 12/07/20 Admission Dx/Problem (Free Text): Admission Diagnosis/Problem Admission Diagnosis/Problem Intractable vomiting Subjective Update: Patient has remained n.p.o., states mild improvement, nausea has improved, diarrhea has resolved. Patient continues to have abdominal discomfort secondary to gastroparesis. Functional Status: Reports: Pain Controlled, Urinating - Review of Systems General: Reports: No Symptoms HEENT: Reports: No Symptoms Pulmonary: Reports: No Symptoms Cardiovascular: Reports: No Symptoms Gastrointestinal: Reports: Nausea. Denies: Diarrhea, Vomiting Genitourinary: Reports: No Symptoms Musculoskeletal: Reports: No Symptoms Skin: Reports: Pruritis Neurological: Reports: No Symptoms Psychiatric: Reports: No Symptoms - Patient Data Vitals - Most Recent: Last Vital Signs Temp 97.3 F 12/07/20 16:00 Pulse 95 12/07/20 16:00 Resp 16 12/07/20 16:00 BP 119/58 L 12/07/20 16:00 Pulse Ox 97 12/07/20 16:00 Weight - Most Recent: 74.435 kg I&O - Last 24 Hours: Intake & Output 12/07/20 12/07/20 12/07/20 06:59 14:59 22:59 Intake Total 1096 50 Output Total 900 600 Balance 196 -550 Lab Results Last 24 Hours: Laboratory Results - last 24 hr 12/06/20 12/06/20 12/06/20 Range/Units 17:09 22:02 22:48 WBC (4.0-11.0) K/uL RBC (4.30-5.90) M/uL Hgb (12.0-16.0) g/dL Hct (36.0-46.0) % MCV (80.0-98.0) fL MCH (27.0-32.0) pg MCHC (31.0-37.0) g/dL RDW Std Deviation (28.0-62.0) fl RDW Coeff of Zak (11.0-15.0) % Plt Count (150-400) K/uL MPV (7.40-12.00) fL Neut % (Auto) (48.0-80.0) % Lymph % (Auto) (16.0-40.0) % Butler % (Auto) (0.0-15.0) % Eos % (Auto) (0.0-7.0) % Baso % (Auto) (0.0-1.5) % Neut # (Auto) (1.4-5.7) K/uL Lymph # (Auto) (0.6-2.4) K/uL Butler # (Auto) (0.0-0.8) K/uL Eos # (Auto) (0.0-0.7) K/uL Baso # (Auto) (0.0-0.1) K/uL Nucleated RBC % /100WBC Nucleated RBCs # K/uL Sodium 141 (136-145) mmol/L Potassium 4.4 (3.5-5.1) mmol/L Chloride 100 (98-107) mmol/L Carbon Dioxide 20.5 L (21.0-32.0) mmol/L BUN 12 (7.0-18.0) mg/dL Creatinine 0.7 (0.6-1.0) mg/dL Est Cr Clr Drug Dosing 83.64 mL/min Estimated GFR (MDRD) > 60.0 ml/min Glucose 293 H (74-106) mg/dL POC Glucose 263 H (70-99) mg/dL Calcium 9.2 (8.5-10.1) mg/dL Phosphorus (2.6-4.7) mg/dL Magnesium (1.8-2.4) mg/dL Total Bilirubin (0.2-1.0) mg/dL AST (15-37) IU/L ALT (14-63) IU/L Alkaline Phosphatase (46-116) U/L Total Protein (6.4-8.2) g/dL Albumin (3.4-5.0) g/dL Globulin (2.6-4.0) g/dL Albumin/Globulin Ratio (0.9-1.6) SARS-CoV-2 RNA (NADIA) NEGATIVE (NEGATIVE) 12/07/20 12/07/20 12/07/20 Range/Units 06:00 06:00 06:36 WBC 10.52 (4.0-11.0) K/uL RBC 4.55 (4.30-5.90) M/uL Hgb 13.4 (12.0-16.0) g/dL Hct 40.7 (36.0-46.0) % MCV 89.5 (80.0-98.0) fL MCH 29.5 (27.0-32.0) pg MCHC 32.9 (31.0-37.0) g/dL RDW Std Deviation 43.5 (28.0-62.0) fl RDW Coeff of Zak 13 (11.0-15.0) % Plt Count 302 (150-400) K/uL MPV 10.40 (7.40-12.00) fL Neut % (Auto) 62.5 (48.0-80.0) % Lymph % (Auto) 31.8 (16.0-40.0) % Butler % (Auto) 5.3 (0.0-15.0) % Eos % (Auto) 0.2 (0.0-7.0) % Baso % (Auto) 0.2 (0.0-1.5) % Neut # (Auto) 6.6 H (1.4-5.7) K/uL Lymph # (Auto) 3.4 H (0.6-2.4) K/uL Butler # (Auto) 0.6 (0.0-0.8) K/uL Eos # (Auto) 0.0 (0.0-0.7) K/uL Baso # (Auto) 0.0 (0.0-0.1) K/uL Nucleated RBC % 0.0 /100WBC Nucleated RBCs # 0 K/uL Sodium 140 (136-145) mmol/L Potassium 4.2 (3.5-5.1) mmol/L Chloride 104 (98-107) mmol/L Carbon Dioxide 14.4 L (21.0-32.0) mmol/L BUN 11 (7.0-18.0) mg/dL Creatinine 0.7 (0.6-1.0) mg/dL Est Cr Clr Drug Dosing 83.64 mL/min Estimated GFR (MDRD) > 60.0 ml/min Glucose 309 H (74-106) mg/dL POC Glucose 272 H (70-99) mg/dL Calcium 8.4 L (8.5-10.1) mg/dL Phosphorus 3.6 (2.6-4.7) mg/dL Magnesium 1.8 (1.8-2.4) mg/dL Total Bilirubin 0.5 (0.2-1.0) mg/dL AST 23 (15-37) IU/L ALT 41 (14-63) IU/L Alkaline Phosphatase 144 H (46-116) U/L Total Protein 6.8 (6.4-8.2) g/dL Albumin 3.1 L (3.4-5.0) g/dL Globulin 3.7 (2.6-4.0) g/dL Albumin/Globulin Ratio 0.8 L (0.9-1.6) SARS-CoV-2 RNA (NADIA) (NEGATIVE) 12/07/20 12/07/20 12/07/20 Range/Units 08:59 11:34 16:59 WBC (4.0-11.0) K/uL RBC (4.30-5.90) M/uL Hgb (12.0-16.0) g/dL Hct (36.0-46.0) % MCV (80.0-98.0) fL MCH (27.0-32.0) pg MCHC (31.0-37.0) g/dL RDW Std Deviation (28.0-62.0) fl RDW Coeff of Zak (11.0-15.0) % Plt Count (150-400) K/uL MPV (7.40-12.00) fL Neut % (Auto) (48.0-80.0) % Lymph % (Auto) (16.0-40.0) % Butler % (Auto) (0.0-15.0) % Eos % (Auto) (0.0-7.0) % Baso % (Auto) (0.0-1.5) % Neut # (Auto) (1.4-5.7) K/uL Lymph # (Auto) (0.6-2.4) K/uL Butler # (Auto) (0.0-0.8) K/uL Eos # (Auto) (0.0-0.7) K/uL Baso # (Auto) (0.0-0.1) K/uL Nucleated RBC % /100WBC Nucleated RBCs # K/uL Sodium (136-145) mmol/L Potassium (3.5-5.1) mmol/L Chloride (98-107) mmol/L Carbon Dioxide (21.0-32.0) mmol/L BUN (7.0-18.0) mg/dL Creatinine (0.6-1.0) mg/dL Est Cr Clr Drug Dosing mL/min Estimated GFR (MDRD) ml/min Glucose (74-106) mg/dL POC Glucose 280 H 237 H 245 H (70-99) mg/dL Calcium (8.5-10.1) mg/dL Phosphorus (2.6-4.7) mg/dL Magnesium (1.8-2.4) mg/dL Total Bilirubin (0.2-1.0) mg/dL AST (15-37) IU/L ALT (14-63) IU/L Alkaline Phosphatase (46-116) U/L Total Protein (6.4-8.2) g/dL Albumin (3.4-5.0) g/dL Globulin (2.6-4.0) g/dL Albumin/Globulin Ratio (0.9-1.6) SARS-CoV-2 RNA (NADIA) (NEGATIVE) Med Orders - Current: Current Medications Dextrose/Water (50% Dextrose In Water 50 Ml Syringe) 50 ml IVPUSH ASDIRECTED PRN PRN Reason: Hypoglycemia Fluoxetine HCl (Fluoxetine 20 Mg Cap) 40 mg PO DAILY [facility] Last Admin: 12/07/20 08:47 Dose: 40 mg Documented by: Glucagon (Glucagon,Human Recombinant 1 Mg Vial) 1 mg IM ASDIRECTED PRN PRN Reason: Hypoglycemia Hydromorphone HCl (Hydromorphone 1 Mg/Ml Syringe) 1 mg IVPUSH Q3H PRN PRN Reason: Pain (severe 7-10) Last Admin: 12/07/20 16:53 Dose: 1 mg Documented by: Lactated Ringer's (Ringers, Lactated) 1,000 mls @ 150 mls/hr IV ASDIRECTED [facility] Last Admin: 12/07/20 16:54 Dose: 150 mls/hr Documented by: Levetiracetam 500 mg/ Dextrose (/Water) 105 mls @ 420 mls/hr IV Q12H [facility] Last Admin: 12/07/20 09:37 Dose: 420 mls/hr Documented by: Pantoprazole Sodium 40 mg/ (Sodium Chloride) 10 mls @ 300 mls/hr IV DAILY [facility] Last Admin: 12/07/20 11:23 Dose: 300 mls/hr Documented by: Insulin Aspart (Insulin Aspart 100 Units/Ml 3 Ml Pen) 0 unit SUBCUT TIDAC [facility]; Protocol Last Admin: 12/07/20 11:35 Dose: 2 units Documented by: Insulin Detemir (Insulin Detemir 100 Units/Ml 3 Ml Pen) 12 unit SUBCUT BEDTIME [facility] Levothyroxine Sodium (Levothyroxine 112 Mcg Tab) 112 mcg PO ACBREAKFAST [facility] Last Admin: 12/07/20 06:38 Dose: 112 mcg Documented by: Levothyroxine Sodium (Levothyroxine 25 Mcg Tab) 25 mcg PO ACBRK [facility] Last Admin: 12/07/20 06:39 Dose: 25 mcg Documented by: Lorazepam (Lorazepam 1 Mg Tab) 1 mg PO TID [facility] Last Admin: 12/07/20 13:28 Dose: 1 mg Documented by: Ondansetron HCl (Ondansetron 4 Mg Tab.Dis) 4 mg PO Q4H PRN PRN Reason: nausea, able to take PO Last Admin: 12/07/20 08:47 Dose: 4 mg Documented by: Promethazine HCl (Promethazine 25 Mg/Ml Sdv) 12.5 mg IM Q6H PRN PRN Reason: Nausea Last Admin: 12/07/20 11:25 Dose: 12.5 mg Documented by: Rosuvastatin Calcium (Rosuvastatin 10 Mg Tab) 5 mg PO BEDTIME [facility] Sodium Chloride (Sodium Chloride 0.9% 10 Ml Syringe) 10 ml FLUSH ASDIRECTED PRN PRN Reason: Keep Vein Open Last Admin: 12/06/20 15:50 Dose: 10 ml Documented by: Sodium Chloride (Sodium Chloride 0.9% 2.5 Ml Syringe) 2.5 ml FLUSH ASDIRECTED PRN PRN Reason: Keep Vein Open Last Admin: 12/07/20 10:14 Dose: 2.5 ml Documented by: Tizanidine HCl (Tizanidine 4 Mg Tab) 4 mg PO BID [facility] Last Admin: 12/07/20 08:47 Dose: 4 mg Documented by: Discontinued Medications Dextrose/Water (50% Dextrose In Water 50 Ml Syringe) 50 ml IVPUSH ASDIRECTED PRN PRN Reason: Hypoglycemia Diphenhydramine HCl (Diphenhydramine 50 Mg/Ml Sdv) 25 mg IVPUSH ONETIME ONE Stop: 12/06/20 18:07 Last Admin: 12/06/20 18:41 Dose: 25 mg Documented by: Diphenhydramine HCl (Diphenhydramine 25 Mg Cap) 25 mg PO ONETIME ONE Stop: 12/06/20 23:10 Last Admin: 12/06/20 23:22 Dose: 25 mg Documented by: Fluoxetine HCl (Fluoxetine 20 Mg Cap) 40 mg PO DAILY [facility] Glucagon (Glucagon,Human Recombinant 1 Mg Vial) 1 mg IM ASDIRECTED PRN PRN Reason: Hypoglycemia Hydromorphone HCl (Hydromorphone 2 Mg/Ml Syringe) 1 mg IVPUSH Q3H PRN PRN Reason: Pain (severe 7-10) Sodium Chloride (Normal Saline) 1,000 mls @ 999 mls/hr IV STAT ONE Stop: 12/06/20 16:38 Last Admin: 12/06/20 15:47 Dose: 999 mls/hr Documented by: Sodium Chloride (Normal Saline) 1,000 mls @ 999 mls/hr IV STAT ONE Stop: 12/06/20 16:39 Last Admin: 12/06/20 17:38 Dose: Not Given Documented by: Insulin Detemir (Insulin Detemir 100 Units/Ml 3 Ml Pen) 12 unit SUBCUT BEDTIME [facility] Insulin Detemir (Insulin Detemir 100 Units/Ml 3 Ml Pen) 12 unit SUBCUT ONETIME ONE Stop: 12/06/20 23:01 Last Admin: 12/06/20 23:26 Dose: 12 units Documented by: Insulin Human Regular (Insulin Regular, Human 100 Units/Ml 10 Ml Vial) 5 unit SUBCUT ONETIME ONE; Protocol Stop: 12/06/20 16:24 Last Admin: 12/06/20 17:05 Dose: 5 units Documented by: Levetiracetam (Levetiracetam 500 Mg Tab) 500 mg PO BID [facility] Morphine Sulfate (Morphine 2 Mg/Ml Syringe) 2 mg IVPUSH ONETIME ONE Stop: 12/06/20 16:24 Last Admin: 12/06/20 17:04 Dose: 2 mg Documented by: Non-Formulary Medication (Rosuvastatin) 5 mg PO BEDTIME [facility] Ondansetron HCl (Ondansetron 4 Mg/2 Ml Sdv) 4 mg IVPUSH ONETIME ONE Stop: 12/06/20 15:40 Last Admin: 12/06/20 15:47 Dose: 4 mg Documented by: Rosuvastatin Calcium (Rosuvastatin 10 Mg Tab) 5 mg PO ONETIME ONE Stop: 12/06/20 23:01 Last Admin: 12/06/20 23:25 Dose: 5 mg Documented by: Tizanidine HCl (Tizanidine 4 Mg Tab) 4 mg PO BID [facility] Tizanidine HCl (Tizanidine 4 Mg Tab) 4 mg PO ONETIME ONE Stop: 12/06/20 23:01 Last Admin: 12/06/20 23:23 Dose: 4 mg Documented by: - Exam Quality Assessment: DVT Prophylaxis General: Alert, Oriented, Cooperative, No Acute Distress HEENT: Pupils Equal, Pupils Reactive, EOMI, Mucous Membr. Moist/Leith Neck: Supple Lungs: Clear to Auscultation, Normal Respiratory Effort Cardiovascular: Regular Rate, Regular Rhythm GI/Abdominal Exam: Normal Bowel Sounds, Soft (Female) Exam: Normal External Exam, Normal Speculum Exam, Normal Bimanual Exam Back Exam: Normal Inspection, Full Range of Motion Extremities: Normal Inspection, Normal Range of Motion, Non-Tender, Normal Capillary Refill, Pedal Edema Peripheral Pulses: 2+: Carotid (L), Carotid (R), Dorsalis Pedis (L), Dorsalis Pedis (R) Skin: Warm, Dry, Intact Neurological: No New Focal Deficit Psy/Mental Status: Alert, Normal Affect, Normal Mood - Patient Data Lab Results Last 24 hrs: Laboratory Results - last 24 hr 12/06/20 12/06/20 12/06/20 Range/Units 17:09 22:02 22:48 WBC (4.0-11.0) K/uL RBC (4.30-5.90) M/uL Hgb (12.0-16.0) g/dL Hct (36.0-46.0) % MCV (80.0-98.0) fL MCH (27.0-32.0) pg MCHC (31.0-37.0) g/dL RDW Std Deviation (28.0-62.0) fl RDW Coeff of Zak (11.0-15.0) % Plt Count (150-400) K/uL MPV (7.40-12.00) fL Neut % (Auto) (48.0-80.0) % Lymph % (Auto) (16.0-40.0) % Butler % (Auto) (0.0-15.0) % Eos % (Auto) (0.0-7.0) % Baso % (Auto) (0.0-1.5) % Neut # (Auto) (1.4-5.7) K/uL Lymph # (Auto) (0.6-2.4) K/uL Butler # (Auto) (0.0-0.8) K/uL Eos # (Auto) (0.0-0.7) K/uL Baso # (Auto) (0.0-0.1) K/uL Nucleated RBC % /100WBC Nucleated RBCs # K/uL Sodium 141 (136-145) mmol/L Potassium 4.4 (3.5-5.1) mmol/L Chloride 100 (98-107) mmol/L Carbon Dioxide 20.5 L (21.0-32.0) mmol/L BUN 12 (7.0-18.0) mg/dL Creatinine 0.7 (0.6-1.0) mg/dL Est Cr Clr Drug Dosing 83.64 mL/min Estimated GFR (MDRD) > 60.0 ml/min Glucose 293 H (74-106) mg/dL POC Glucose 263 H (70-99) mg/dL Calcium 9.2 (8.5-10.1) mg/dL Phosphorus (2.6-4.7) mg/dL Magnesium (1.8-2.4) mg/dL Total Bilirubin (0.2-1.0) mg/dL AST (15-37) IU/L ALT (14-63) IU/L Alkaline Phosphatase (46-116) U/L Total Protein (6.4-8.2) g/dL Albumin (3.4-5.0) g/dL Globulin (2.6-4.0) g/dL Albumin/Globulin Ratio (0.9-1.6) SARS-CoV-2 RNA (NADIA) NEGATIVE (NEGATIVE) 12/07/20 12/07/20 12/07/20 Range/Units 06:00 06:00 06:36 WBC 10.52 (4.0-11.0) K/uL RBC 4.55 (4.30-5.90) M/uL Hgb 13.4 (12.0-16.0) g/dL Hct 40.7 (36.0-46.0) % MCV 89.5 (80.0-98.0) fL MCH 29.5 (27.0-32.0) pg MCHC 32.9 (31.0-37.0) g/dL RDW Std Deviation 43.5 (28.0-62.0) fl RDW Coeff of Zak 13 (11.0-15.0) % Plt Count 302 (150-400) K/uL MPV 10.40 (7.40-12.00) fL Neut % (Auto) 62.5 (48.0-80.0) % Lymph % (Auto) 31.8 (16.0-40.0) % Butler % (Auto) 5.3 (0.0-15.0) % Eos % (Auto) 0.2 (0.0-7.0) % Baso % (Auto) 0.2 (0.0-1.5) % Neut # (Auto) 6.6 H (1.4-5.7) K/uL Lymph # (Auto) 3.4 H (0.6-2.4) K/uL Butler # (Auto) 0.6 (0.0-0.8) K/uL Eos # (Auto) 0.0 (0.0-0.7) K/uL Baso # (Auto) 0.0 (0.0-0.1) K/uL Nucleated RBC % 0.0 /100WBC Nucleated RBCs # 0 K/uL Sodium 140 (136-145) mmol/L Potassium 4.2 (3.5-5.1) mmol/L Chloride 104 (98-107) mmol/L Carbon Dioxide 14.4 L (21.0-32.0) mmol/L BUN 11 (7.0-18.0) mg/dL Creatinine 0.7 (0.6-1.0) mg/dL Est Cr Clr Drug Dosing 83.64 mL/min Estimated GFR (MDRD) > 60.0 ml/min Glucose 309 H (74-106) mg/dL POC Glucose 272 H (70-99) mg/dL Calcium 8.4 L (8.5-10.1) mg/dL Phosphorus 3.6 (2.6-4.7) mg/dL Magnesium 1.8 (1.8-2.4) mg/dL Total Bilirubin 0.5 (0.2-1.0) mg/dL AST 23 (15-37) IU/L ALT 41 (14-63) IU/L Alkaline Phosphatase 144 H (46-116) U/L Total Protein 6.8 (6.4-8.2) g/dL Albumin 3.1 L (3.4-5.0) g/dL Globulin 3.7 (2.6-4.0) g/dL Albumin/Globulin Ratio 0.8 L (0.9-1.6) SARS-CoV-2 RNA (NADIA) (NEGATIVE) 12/07/20 12/07/20 12/07/20 Range/Units 08:59 11:34 16:59 WBC (4.0-11.0) K/uL RBC (4.30-5.90) M/uL Hgb (12.0-16.0) g/dL Hct (36.0-46.0) % MCV (80.0-98.0) fL MCH (27.0-32.0) pg MCHC (31.0-37.0) g/dL RDW Std Deviation (28.0-62.0) fl RDW Coeff of Zak (11.0-15.0) % Plt Count (150-400) K/uL MPV (7.40-12.00) fL Neut % (Auto) (48.0-80.0) % Lymph % (Auto) (16.0-40.0) % Butler % (Auto) (0.0-15.0) % Eos % (Auto) (0.0-7.0) % Baso % (Auto) (0.0-1.5) % Neut # (Auto) (1.4-5.7) K/uL Lymph # (Auto) (0.6-2.4) K/uL Butler # (Auto) (0.0-0.8) K/uL Eos # (Auto) (0.0-0.7) K/uL Baso # (Auto) (0.0-0.1) K/uL Nucleated RBC % /100WBC Nucleated RBCs # K/uL Sodium (136-145) mmol/L Potassium (3.5-5.1) mmol/L Chloride (98-107) mmol/L Carbon Dioxide (21.0-32.0) mmol/L BUN (7.0-18.0) mg/dL Creatinine (0.6-1.0) mg/dL Est Cr Clr Drug Dosing mL/min Estimated GFR (MDRD) ml/min Glucose (74-106) mg/dL POC Glucose 280 H 237 H 245 H (70-99) mg/dL Calcium (8.5-10.1) mg/dL Phosphorus (2.6-4.7) mg/dL Magnesium (1.8-2.4) mg/dL Total Bilirubin (0.2-1.0) mg/dL AST (15-37) IU/L ALT (14-63) IU/L Alkaline Phosphatase (46-116) U/L Total Protein (6.4-8.2) g/dL Albumin (3.4-5.0) g/dL Globulin (2.6-4.0) g/dL Albumin/Globulin Ratio (0.9-1.6) SARS-CoV-2 RNA (NADIA) (NEGATIVE) Result Diagrams: 12/07/20 06:00 12/07/20 06:00 Sepsis Event Note - Evaluation Sepsis Screening Result: No Definite Risk - Focused Exam Vital Signs: Vital Signs Temp Pulse Resp BP Pulse Ox 12/07/20 16:00 97.3 F 95 16 119/58 L 97 12/07/20 11:28 97.9 F 95 14 123/71 97 12/07/20 08:00 97.2 F 86 16 122/72 96 - Problem List Review Problem List Initiated/Reviewed/Updated: Yes - My Orders Last 24 Hours: My Active Orders 12/06/20 19:57 Blood Glucose Check, Bedside [RC] TIDAC Oxygen Therapy [RC] PRN Up With Assistance [RC] ASDIRECTED VTE/DVT Education [RC] PER UNIT ROUTINE Vital Signs [RC] Q4H Consult to Diabetic Nurse Specialist [CONS] Routine Ondansetron [Zofran ODT] 4 mg PO Q4H PRN Resuscitation Status Routine 12/06/20 19:58 Sequential Compression Device [OM.PC] Per Unit Routine 12/06/20 19:59 Antiembolic Devices [RC] PER UNIT ROUTINE 12/06/20 20:00 Lactated Ringers [Ringers, Lactated] 1,000 ml IV ASDIRECTED 12/06/20 20:04 HYDROmorphone [Dilaudid] 1 mg IVPUSH Q3H PRN 12/06/20 20:05 Dextrose 50% in Water 50 ml IVPUSH ASDIRECTED PRN Glucagon,Human Recombinant [GlucaGen] 1 mg IM ASDIRECTED PRN 12/06/20 21:00 levETIRAcetam [Keppra] 500 mg Dextrose 5% in Water 100 ml IV Q12H 12/06/20 22:00 LORazepam [Ativan] 1 mg PO TID 12/07/20 07:30 Levothyroxine 112 mcg PO ACBREAKFAST 12/07/20 09:00 FLUoxetine [PROzac] 40 mg PO DAILY tiZANidine [Zanaflex] 4 mg PO BID 12/07/20 09:20 Insulin Aspart [NovoLOG] See Protocol SUBCUT TIDAC 12/07/20 21:00 Insulin Detemir [Levemir] 12 unit SUBCUT BEDTIME Rosuvastatin [Crestor] 5 mg PO BEDTIME - Plan Plan:: 30-year-old female with complex past medical history including type 1 diabetes mellitus and seizure disorder presented with significant nausea vomiting and diarrhea, unable to tolerate p.o. intake and experienced a seizure. 1. Gastroparesis: Maintain hydration with 150 mL LR, Substitute p.o. medications for IV Diarrhea has finally subsided therefore have not provided patient with gut motility agents such as erythromycin or Reglan which patient is allergic to. Improved glucose control as mentioned below. 2. Hyperglycemia secondary to type 1 diabetes mellitus: Blood sugar of 309 No anion gap therefore patient not in DKA Start bedtime Levemir 12 units, sliding scale, check sugars 3 times daily AC, will adjust daily regimen per sliding scale needs. Consulted diabetes education, diabetes educater knows patient fairly well, understands the patient is not really compliant with suggested regimen. Recommended close follow-up post discharge. 3. History of seizure disorder: No seizure in last 24-hour, patient received appropriate dose of seizure medication, continue with current IV regimen and continue to monitor patient closely ensuring all appropriate electrolytes. <Mirella Warren - Last Filed: 12/08/20 12:32> - Patient Data Vitals - Most Recent: Last Vital Signs Temp 36.5 C 12/08/20 11:48 Pulse 97 12/08/20 11:48 Resp 16 12/08/20 11:48 BP 122/76 12/08/20 11:48 Pulse Ox 99 12/08/20 11:48 I&O - Last 24 Hours: Intake & Output 12/07/20 12/08/20 12/08/20 22:59 06:59 14:59 Intake Total 50 50 Output Total 600 1000 Balance -550 -950 Lab Results Last 24 Hours: Laboratory Results - last 24 hr 12/07/20 12/07/20 12/08/20 Range/Units 16:59 20:38 05:12 WBC 8.37 (4.0-11.0) K/uL RBC 4.52 (4.30-5.90) M/uL Hgb 13.3 (12.0-16.0) g/dL Hct 39.6 (36.0-46.0) % MCV 87.6 (80.0-98.0) fL MCH 29.4 (27.0-32.0) pg MCHC 33.6 (31.0-37.0) g/dL RDW Std Deviation 41.2 (28.0-62.0) fl RDW Coeff of Zak 13 (11.0-15.0) % Plt Count 281 (150-400) K/uL MPV 10.50 (7.40-12.00) fL Neut % (Auto) 52.6 (48.0-80.0) % Lymph % (Auto) 40.4 H (16.0-40.0) % Butler % (Auto) 5.4 (0.0-15.0) % Eos % (Auto) 1.4 (0.0-7.0) % Baso % (Auto) 0.2 (0.0-1.5) % Neut # (Auto) 4.4 (1.4-5.7) K/uL Lymph # (Auto) 3.4 H (0.6-2.4) K/uL Butler # (Auto) 0.5 (0.0-0.8) K/uL Eos # (Auto) 0.1 (0.0-0.7) K/uL Baso # (Auto) 0.0 (0.0-0.1) K/uL Nucleated RBC % 0.0 /100WBC Nucleated RBCs # 0 K/uL Sodium (136-145) mmol/L Potassium (3.5-5.1) mmol/L Chloride (98-107) mmol/L Carbon Dioxide (21.0-32.0) mmol/L BUN (7.0-18.0) mg/dL Creatinine (0.6-1.0) mg/dL Est Cr Clr Drug Dosing mL/min Estimated GFR (MDRD) ml/min Glucose (74-106) mg/dL POC Glucose 245 H 198 H (70-99) mg/dL Calcium (8.5-10.1) mg/dL Total Bilirubin (0.2-1.0) mg/dL AST (15-37) IU/L ALT (14-63) IU/L Alkaline Phosphatase (46-116) U/L Total Protein (6.4-8.2) g/dL Albumin (3.4-5.0) g/dL Globulin (2.6-4.0) g/dL Albumin/Globulin Ratio (0.9-1.6) 12/08/20 12/08/20 12/08/20 Range/Units 05:12 06:05 11:34 WBC (4.0-11.0) K/uL RBC (4.30-5.90) M/uL Hgb (12.0-16.0) g/dL Hct (36.0-46.0) % MCV (80.0-98.0) fL MCH (27.0-32.0) pg MCHC (31.0-37.0) g/dL RDW Std Deviation (28.0-62.0) fl RDW Coeff of Zak (11.0-15.0) % Plt Count (150-400) K/uL MPV (7.40-12.00) fL Neut % (Auto) (48.0-80.0) % Lymph % (Auto) (16.0-40.0) % Butler % (Auto) (0.0-15.0) % Eos % (Auto) (0.0-7.0) % Baso % (Auto) (0.0-1.5) % Neut # (Auto) (1.4-5.7) K/uL Lymph # (Auto) (0.6-2.4) K/uL Butler # (Auto) (0.0-0.8) K/uL Eos # (Auto) (0.0-0.7) K/uL Baso # (Auto) (0.0-0.1) K/uL Nucleated RBC % /100WBC Nucleated RBCs # K/uL Sodium 137 (136-145) mmol/L Potassium 3.6 (3.5-5.1) mmol/L Chloride 102 (98-107) mmol/L Carbon Dioxide 21.1 (21.0-32.0) mmol/L BUN 6 L (7.0-18.0) mg/dL Creatinine 0.6 (0.6-1.0) mg/dL Est Cr Clr Drug Dosing 97.58 mL/min Estimated GFR (MDRD) > 60.0 ml/min Glucose 157 H (74-106) mg/dL POC Glucose 142 H 230 H (70-99) mg/dL Calcium 8.1 L (8.5-10.1) mg/dL Total Bilirubin 0.4 (0.2-1.0) mg/dL AST 18 (15-37) IU/L ALT 32 (14-63) IU/L Alkaline Phosphatase 129 H (46-116) U/L Total Protein 6.2 L (6.4-8.2) g/dL Albumin 2.8 L (3.4-5.0) g/dL Globulin 3.4 (2.6-4.0) g/dL Albumin/Globulin Ratio 0.8 L (0.9-1.6) Med Orders - Current: Current Medications Dextrose/Water (50% Dextrose In Water 50 Ml Syringe) 50 ml IVPUSH ASDIRECTED PRN PRN Reason: Hypoglycemia Fluoxetine HCl (Fluoxetine 20 Mg Cap) 40 mg PO DAILY [facility] Last Admin: 12/08/20 08:03 Dose: 40 mg Documented by: Glucagon (Glucagon,Human Recombinant 1 Mg Vial) 1 mg IM ASDIRECTED PRN PRN Reason: Hypoglycemia Hydromorphone HCl (Hydromorphone 1 Mg/Ml Syringe) 1 mg IVPUSH Q3H PRN PRN Reason: Pain (severe 7-10) Last Admin: 12/08/20 11:44 Dose: 1 mg Documented by: Lactated Ringer's (Ringers, Lactated) 1,000 mls @ 150 mls/hr IV ASDIRECTED [facility] Last Admin: 12/08/20 07:48 Dose: 150 mls/hr Documented by: Levetiracetam 500 mg/ Dextrose (/Water) 105 mls @ 420 mls/hr IV Q12H [facility] Last Admin: 12/08/20 08:09 Dose: 420 mls/hr Documented by: Pantoprazole Sodium 40 mg/ (Sodium Chloride) 10 mls @ 300 mls/hr IV DAILY [facility] Last Admin: 12/08/20 09:28 Dose: Not Given Documented by: Insulin Aspart (Insulin Aspart 100 Units/Ml 3 Ml Pen) 0 unit SUBCUT TIDAC [facility]; Protocol Last Admin: 12/08/20 11:50 Dose: 2 units Documented by: Insulin Detemir (Insulin Detemir 100 Units/Ml 3 Ml Pen) 12 unit SUBCUT BEDTIME [facility] Last Admin: 12/07/20 20:42 Dose: 12 units Documented by: Levothyroxine Sodium (Levothyroxine 112 Mcg Tab) 112 mcg PO ACBREAKFAST [facility] Last Admin: 12/08/20 08:01 Dose: 112 mcg Documented by: Levothyroxine Sodium (Levothyroxine 25 Mcg Tab) 25 mcg PO ACBRK [facility] Last Admin: 12/08/20 08:01 Dose: 25 mcg Documented by: Lorazepam (Lorazepam 1 Mg Tab) 1 mg PO TID [facility] Last Admin: 12/08/20 06:00 Dose: 1 mg Documented by: Ondansetron HCl (Ondansetron 4 Mg Tab.Dis) 4 mg PO Q4H PRN PRN Reason: nausea, able to take PO Last Admin: 12/08/20 08:00 Dose: 4 mg Documented by: Promethazine HCl (Promethazine 25 Mg/Ml Sdv) 12.5 mg IM Q6H PRN PRN Reason: Nausea Last Admin: 12/08/20 10:46 Dose: 12.5 mg Documented by: Rosuvastatin Calcium (Rosuvastatin 10 Mg Tab) 5 mg PO BEDTIME [facility] Last Admin: 12/07/20 20:38 Dose: 5 mg Documented by: Sodium Chloride (Sodium Chloride 0.9% 10 Ml Syringe) 10 ml FLUSH ASDIRECTED PRN PRN Reason: Keep Vein Open Last Admin: 12/06/20 15:50 Dose: 10 ml Documented by: Sodium Chloride (Sodium Chloride 0.9% 2.5 Ml Syringe) 2.5 ml FLUSH ASDIRECTED PRN PRN Reason: Keep Vein Open Last Admin: 12/07/20 10:14 Dose: 2.5 ml Documented by: Tizanidine HCl (Tizanidine 4 Mg Tab) 4 mg PO BID [facility] Last Admin: 12/08/20 08:01 Dose: 4 mg Documented by: Discontinued Medications Dextrose/Water (50% Dextrose In Water 50 Ml Syringe) 50 ml IVPUSH ASDIRECTED PRN PRN Reason: Hypoglycemia Diphenhydramine HCl (Diphenhydramine 50 Mg/Ml Sdv) 25 mg IVPUSH ONETIME ONE Stop: 12/06/20 18:07 Last Admin: 12/06/20 18:41 Dose: 25 mg Documented by: Diphenhydramine HCl (Diphenhydramine 25 Mg Cap) 25 mg PO ONETIME ONE Stop: 12/06/20 23:10 Last Admin: 12/06/20 23:22 Dose: 25 mg Documented by: Diphenhydramine HCl (Diphenhydramine 25 Mg Cap) 25 mg PO ONETIME ONE Stop: 12/07/20 18:32 Last Admin: 12/07/20 18:42 Dose: 25 mg Documented by: Fluoxetine HCl (Fluoxetine 20 Mg Cap) 40 mg PO DAILY [facility] Glucagon (Glucagon,Human Recombinant 1 Mg Vial) 1 mg IM ASDIRECTED PRN PRN Reason: Hypoglycemia Hydromorphone HCl (Hydromorphone 2 Mg/Ml Syringe) 1 mg IVPUSH Q3H PRN PRN Reason: Pain (severe 7-10) Sodium Chloride (Normal Saline) 1,000 mls @ 999 mls/hr IV STAT ONE Stop: 12/06/20 16:38 Last Admin: 12/06/20 15:47 Dose: 999 mls/hr Documented by: Sodium Chloride (Normal Saline) 1,000 mls @ 999 mls/hr IV STAT ONE Stop: 12/06/20 16:39 Last Admin: 12/06/20 17:38 Dose: Not Given Documented by: Insulin Detemir (Insulin Detemir 100 Units/Ml 3 Ml Pen) 12 unit SUBCUT BEDTIME PIPPA Insulin Detemir (Insulin Detemir 100 Units/Ml 3 Ml Pen) 12 unit SUBCUT ONETIME ONE Stop: 12/06/20 23:01 Last Admin: 12/06/20 23:26 Dose: 12 units Documented by: Insulin Human Regular (Insulin Regular, Human 100 Units/Ml 10 Ml Vial) 5 unit SUBCUT ONETIME ONE; Protocol Stop: 12/06/20 16:24 Last Admin: 12/06/20 17:05 Dose: 5 units Documented by: Levetiracetam (Levetiracetam 500 Mg Tab) 500 mg PO BID [facility] Morphine Sulfate (Morphine 2 Mg/Ml Syringe) 2 mg IVPUSH ONETIME ONE Stop: 12/06/20 16:24 Last Admin: 12/06/20 17:04 Dose: 2 mg Documented by: Non-Formulary Medication (Rosuvastatin) 5 mg PO BEDTIME [facility] Ondansetron HCl (Ondansetron 4 Mg/2 Ml Sdv) 4 mg IVPUSH ONETIME ONE Stop: 12/06/20 15:40 Last Admin: 12/06/20 15:47 Dose: 4 mg Documented by: Rosuvastatin Calcium (Rosuvastatin 10 Mg Tab) 5 mg PO ONETIME ONE Stop: 12/06/20 23:01 Last Admin: 12/06/20 23:25 Dose: 5 mg Documented by: Tizanidine HCl (Tizanidine 4 Mg Tab) 4 mg PO BID [facility] Tizanidine HCl (Tizanidine 4 Mg Tab) 4 mg PO ONETIME ONE Stop: 12/06/20 23:01 Last Admin: 12/06/20 23:23 Dose: 4 mg Documented by: - Patient Data Lab Results Last 24 hrs: Laboratory Results - last 24 hr 12/07/20 12/07/20 12/08/20 Range/Units 16:59 20:38 05:12 WBC 8.37 (4.0-11.0) K/uL RBC 4.52 (4.30-5.90) M/uL Hgb 13.3 (12.0-16.0) g/dL Hct 39.6 (36.0-46.0) % MCV 87.6 (80.0-98.0) fL MCH 29.4 (27.0-32.0) pg MCHC 33.6 (31.0-37.0) g/dL RDW Std Deviation 41.2 (28.0-62.0) fl RDW Coeff of Zak 13 (11.0-15.0) % Plt Count 281 (150-400) K/uL MPV 10.50 (7.40-12.00) fL Neut % (Auto) 52.6 (48.0-80.0) % Lymph % (Auto) 40.4 H (16.0-40.0) % Butler % (Auto) 5.4 (0.0-15.0) % Eos % (Auto) 1.4 (0.0-7.0) % Baso % (Auto) 0.2 (0.0-1.5) % Neut # (Auto) 4.4 (1.4-5.7) K/uL Lymph # (Auto) 3.4 H (0.6-2.4) K/uL Butler # (Auto) 0.5 (0.0-0.8) K/uL Eos # (Auto) 0.1 (0.0-0.7) K/uL Baso # (Auto) 0.0 (0.0-0.1) K/uL Nucleated RBC % 0.0 /100WBC Nucleated RBCs # 0 K/uL Sodium (136-145) mmol/L Potassium (3.5-5.1) mmol/L Chloride (98-107) mmol/L Carbon Dioxide (21.0-32.0) mmol/L BUN (7.0-18.0) mg/dL Creatinine (0.6-1.0) mg/dL Est Cr Clr Drug Dosing mL/min Estimated GFR (MDRD) ml/min Glucose (74-106) mg/dL POC Glucose 245 H 198 H (70-99) mg/dL Calcium (8.5-10.1) mg/dL Total Bilirubin (0.2-1.0) mg/dL AST (15-37) IU/L ALT (14-63) IU/L Alkaline Phosphatase (46-116) U/L Total Protein (6.4-8.2) g/dL Albumin (3.4-5.0) g/dL Globulin (2.6-4.0) g/dL Albumin/Globulin Ratio (0.9-1.6) 12/08/20 12/08/20 12/08/20 Range/Units 05:12 06:05 11:34 WBC (4.0-11.0) K/uL RBC (4.30-5.90) M/uL Hgb (12.0-16.0) g/dL Hct (36.0-46.0) % MCV (80.0-98.0) fL MCH (27.0-32.0) pg MCHC (31.0-37.0) g/dL RDW Std Deviation (28.0-62.0) fl RDW Coeff of Zak (11.0-15.0) % Plt Count (150-400) K/uL MPV (7.40-12.00) fL Neut % (Auto) (48.0-80.0) % Lymph % (Auto) (16.0-40.0) % Butler % (Auto) (0.0-15.0) % Eos % (Auto) (0.0-7.0) % Baso % (Auto) (0.0-1.5) % Neut # (Auto) (1.4-5.7) K/uL Lymph # (Auto) (0.6-2.4) K/uL Butler # (Auto) (0.0-0.8) K/uL Eos # (Auto) (0.0-0.7) K/uL Baso # (Auto) (0.0-0.1) K/uL Nucleated RBC % /100WBC Nucleated RBCs # K/uL Sodium 137 (136-145) mmol/L Potassium 3.6 (3.5-5.1) mmol/L Chloride 102 (98-107) mmol/L Carbon Dioxide 21.1 (21.0-32.0) mmol/L BUN 6 L (7.0-18.0) mg/dL Creatinine 0.6 (0.6-1.0) mg/dL Est Cr Clr Drug Dosing 97.58 mL/min Estimated GFR (MDRD) > 60.0 ml/min Glucose 157 H (74-106) mg/dL POC Glucose 142 H 230 H (70-99) mg/dL Calcium 8.1 L (8.5-10.1) mg/dL Total Bilirubin 0.4 (0.2-1.0) mg/dL AST 18 (15-37) IU/L ALT 32 (14-63) IU/L Alkaline Phosphatase 129 H (46-116) U/L Total Protein 6.2 L (6.4-8.2) g/dL Albumin 2.8 L (3.4-5.0) g/dL Globulin 3.4 (2.6-4.0) g/dL Albumin/Globulin Ratio 0.8 L (0.9-1.6) Result Diagrams: 12/08/20 05:12 12/08/20 05:12 Sepsis Event Note - Focused Exam Vital Signs: Vital Signs Temp Pulse Resp BP Pulse Ox 12/08/20 11:48 36.5 C 97 16 122/76 99 12/08/20 08:00 36.3 C 82 18 120/72 95 12/08/20 04:00 36.2 C 93 17 130/64 97 - Plan Plan:: I have seen and evaluated the patient and agree with the residents note unless specified in my note
[2020-12-07] MEDS ORDERED: diphenhydrAMINE 25 MG Cap PO ONE (18:31)
[2020-12-07] MEDS: Rosuvastatin 10 MG Tab PO SCH (20:38)
[2020-12-07] MEDS: Insulin Detemir 100 Units/ML 3 ML Pen SUBCUT SCH (20:42)
[2020-12-08] MEDS: Lactated Ringers 1,000 ML IV SCH ×4 (00:51→21:03)
[2020-12-08] MEDS: HYDROmorphone 1 MG/ML Syringe IVPUSH PRN ×7 (01:01→21:04)
[2020-12-08 05:59] LABS: BLOOD UREA NITROGEN,BUN 6 mg/dL (7.0-18.0); CARBON DIOXIDE,CO2 21.1 mmol/L (21.0-32.0); CHLORIDE,CL 102 mmol/L (98-107); GLUCOSE RANDOM 157 mg/dL (74-106); POTASSIUM,K 3.6 mmol/L (3.5-5.1); SODIUM,NA 137 mmol/L (136-145)
[2020-12-08] MEDS: LORazepam 1 MG Tab PO SCH ×3 (06:00→22:07)
[2020-12-08] MEDS: Pantoprazole 40 MG in Sodium Chloride 0.9% 10 ML IV SCH ×2 (07:47→09:28)
[2020-12-08] MEDS: Ondansetron 4 MG Tab.DIS PO PRN (08:00)
[2020-12-08] MEDS: Levothyroxine 25 MCG Tab PO SCH (08:01)
[2020-12-08] MEDS: tiZANidine 4 MG Tab PO SCH ×2 (08:01→21:00)
[2020-12-08] MEDS: Levothyroxine 112 MCG Tab PO SCH (08:01)
[2020-12-08] MEDS: FLUoxetine 20 MG Cap PO SCH (08:03)
[2020-12-08] MEDS: Insulin Aspart 100 Units/ML 3 ML Pen SUBCUT SCH ×3 (08:09→16:51)
[2020-12-08] MEDS: Promethazine 25 MG/ML SDV IM PRN (10:46)
--- NOTE | 2020-12-08 13:45 | PCM.PN ---
<Chandni Weaver - Last Filed: 12/08/20 13:45> - General Info Date of Service: 12/08/20 Admission Dx/Problem (Free Text): Admission Diagnosis/Problem Admission Diagnosis/Problem Intractable vomiting Subjective Update: There were no overnight events, patient has remained n.p.o., states mild improvement, nausea has improved, diarrhea has resolved. Patient continues to have abdominal discomfort secondary to gastroparesis. Functional Status: Reports: Ambulating, Urinating - Review of Systems General: Denies: Appetite HEENT: Reports: No Symptoms Pulmonary: Reports: No Symptoms Cardiovascular: Reports: No Symptoms Gastrointestinal: Reports: Abdominal Pain (Improved) Genitourinary: Reports: No Symptoms Musculoskeletal: Reports: No Symptoms Skin: Reports: No Symptoms Neurological: Reports: No Symptoms Psychiatric: Reports: No Symptoms - Patient Data Vitals - Most Recent: Last Vital Signs Temp 97.7 F 12/08/20 11:48 Pulse 97 12/08/20 11:48 Resp 16 12/08/20 11:48 BP 122/76 12/08/20 11:48 Pulse Ox 99 12/08/20 11:48 Weight - Most Recent: 74.435 kg I&O - Last 24 Hours: Intake & Output 12/07/20 12/08/20 12/08/20 22:59 06:59 14:59 Intake Total 50 50 Output Total 600 1000 Balance -550 -950 Lab Results Last 24 Hours: Laboratory Results - last 24 hr 12/07/20 12/07/20 12/08/20 Range/Units 16:59 20:38 05:12 WBC 8.37 (4.0-11.0) K/uL RBC 4.52 (4.30-5.90) M/uL Hgb 13.3 (12.0-16.0) g/dL Hct 39.6 (36.0-46.0) % MCV 87.6 (80.0-98.0) fL MCH 29.4 (27.0-32.0) pg MCHC 33.6 (31.0-37.0) g/dL RDW Std Deviation 41.2 (28.0-62.0) fl RDW Coeff of Zak 13 (11.0-15.0) % Plt Count 281 (150-400) K/uL MPV 10.50 (7.40-12.00) fL Neut % (Auto) 52.6 (48.0-80.0) % Lymph % (Auto) 40.4 H (16.0-40.0) % Scott % (Auto) 5.4 (0.0-15.0) % Eos % (Auto) 1.4 (0.0-7.0) % Baso % (Auto) 0.2 (0.0-1.5) % Neut # (Auto) 4.4 (1.4-5.7) K/uL Lymph # (Auto) 3.4 H (0.6-2.4) K/uL Scott # (Auto) 0.5 (0.0-0.8) K/uL Eos # (Auto) 0.1 (0.0-0.7) K/uL Baso # (Auto) 0.0 (0.0-0.1) K/uL Nucleated RBC % 0.0 /100WBC Nucleated RBCs # 0 K/uL Sodium (136-145) mmol/L Potassium (3.5-5.1) mmol/L Chloride (98-107) mmol/L Carbon Dioxide (21.0-32.0) mmol/L BUN (7.0-18.0) mg/dL Creatinine (0.6-1.0) mg/dL Est Cr Clr Drug Dosing mL/min Estimated GFR (MDRD) ml/min Glucose (74-106) mg/dL POC Glucose 245 H 198 H (70-99) mg/dL Calcium (8.5-10.1) mg/dL Total Bilirubin (0.2-1.0) mg/dL AST (15-37) IU/L ALT (14-63) IU/L Alkaline Phosphatase (46-116) U/L Total Protein (6.4-8.2) g/dL Albumin (3.4-5.0) g/dL Globulin (2.6-4.0) g/dL Albumin/Globulin Ratio (0.9-1.6) 12/08/20 12/08/20 12/08/20 Range/Units 05:12 06:05 11:34 WBC (4.0-11.0) K/uL RBC (4.30-5.90) M/uL Hgb (12.0-16.0) g/dL Hct (36.0-46.0) % MCV (80.0-98.0) fL MCH (27.0-32.0) pg MCHC (31.0-37.0) g/dL RDW Std Deviation (28.0-62.0) fl RDW Coeff of Zak (11.0-15.0) % Plt Count (150-400) K/uL MPV (7.40-12.00) fL Neut % (Auto) (48.0-80.0) % Lymph % (Auto) (16.0-40.0) % Scott % (Auto) (0.0-15.0) % Eos % (Auto) (0.0-7.0) % Baso % (Auto) (0.0-1.5) % Neut # (Auto) (1.4-5.7) K/uL Lymph # (Auto) (0.6-2.4) K/uL Scott # (Auto) (0.0-0.8) K/uL Eos # (Auto) (0.0-0.7) K/uL Baso # (Auto) (0.0-0.1) K/uL Nucleated RBC % /100WBC Nucleated RBCs # K/uL Sodium 137 (136-145) mmol/L Potassium 3.6 (3.5-5.1) mmol/L Chloride 102 (98-107) mmol/L Carbon Dioxide 21.1 (21.0-32.0) mmol/L BUN 6 L (7.0-18.0) mg/dL Creatinine 0.6 (0.6-1.0) mg/dL Est Cr Clr Drug Dosing 97.58 mL/min Estimated GFR (MDRD) > 60.0 ml/min Glucose 157 H (74-106) mg/dL POC Glucose 142 H 230 H (70-99) mg/dL Calcium 8.1 L (8.5-10.1) mg/dL Total Bilirubin 0.4 (0.2-1.0) mg/dL AST 18 (15-37) IU/L ALT 32 (14-63) IU/L Alkaline Phosphatase 129 H (46-116) U/L Total Protein 6.2 L (6.4-8.2) g/dL Albumin 2.8 L (3.4-5.0) g/dL Globulin 3.4 (2.6-4.0) g/dL Albumin/Globulin Ratio 0.8 L (0.9-1.6) Med Orders - Current: Current Medications Dextrose/Water (50% Dextrose In Water 50 Ml Syringe) 50 ml IVPUSH ASDIRECTED PRN PRN Reason: Hypoglycemia Fluoxetine HCl (Fluoxetine 20 Mg Cap) 40 mg PO DAILY [facility] Last Admin: 12/08/20 08:03 Dose: 40 mg Documented by: Glucagon (Glucagon,Human Recombinant 1 Mg Vial) 1 mg IM ASDIRECTED PRN PRN Reason: Hypoglycemia Hydromorphone HCl (Hydromorphone 1 Mg/Ml Syringe) 1 mg IVPUSH Q3H PRN PRN Reason: Pain (severe 7-10) Last Admin: 12/08/20 11:44 Dose: 1 mg Documented by: Lactated Ringer's (Ringers, Lactated) 1,000 mls @ 150 mls/hr IV ASDIRECTED [facility] Last Admin: 12/08/20 07:48 Dose: 150 mls/hr Documented by: Levetiracetam 500 mg/ Dextrose (/Water) 105 mls @ 420 mls/hr IV Q12H [facility] Last Admin: 12/08/20 08:09 Dose: 420 mls/hr Documented by: Pantoprazole Sodium 40 mg/ (Sodium Chloride) 10 mls @ 300 mls/hr IV DAILY [facility] Last Admin: 12/08/20 09:28 Dose: Not Given Documented by: Insulin Aspart (Insulin Aspart 100 Units/Ml 3 Ml Pen) 0 unit SUBCUT TIDAC [facility]; Protocol Last Admin: 12/08/20 11:50 Dose: 2 units Documented by: Insulin Detemir (Insulin Detemir 100 Units/Ml 3 Ml Pen) 12 unit SUBCUT BEDTIME [facility] Last Admin: 12/07/20 20:42 Dose: 12 units Documented by: Levothyroxine Sodium (Levothyroxine 112 Mcg Tab) 112 mcg PO ACBREAKFAST [facility] Last Admin: 12/08/20 08:01 Dose: 112 mcg Documented by: Levothyroxine Sodium (Levothyroxine 25 Mcg Tab) 25 mcg PO ACBRK [facility] Last Admin: 12/08/20 08:01 Dose: 25 mcg Documented by: Lorazepam (Lorazepam 1 Mg Tab) 1 mg PO TID [facility] Last Admin: 12/08/20 06:00 Dose: 1 mg Documented by: Ondansetron HCl (Ondansetron 4 Mg Tab.Dis) 4 mg PO Q4H PRN PRN Reason: nausea, able to take PO Last Admin: 12/08/20 08:00 Dose: 4 mg Documented by: Promethazine HCl (Promethazine 25 Mg/Ml Sdv) 12.5 mg IM Q6H PRN PRN Reason: Nausea Last Admin: 12/08/20 10:46 Dose: 12.5 mg Documented by: Rosuvastatin Calcium (Rosuvastatin 10 Mg Tab) 5 mg PO BEDTIME [facility] Last Admin: 12/07/20 20:38 Dose: 5 mg Documented by: Sodium Chloride (Sodium Chloride 0.9% 10 Ml Syringe) 10 ml FLUSH ASDIRECTED PRN PRN Reason: Keep Vein Open Last Admin: 12/06/20 15:50 Dose: 10 ml Documented by: Sodium Chloride (Sodium Chloride 0.9% 2.5 Ml Syringe) 2.5 ml FLUSH ASDIRECTED PRN PRN Reason: Keep Vein Open Last Admin: 12/07/20 10:14 Dose: 2.5 ml Documented by: Tizanidine HCl (Tizanidine 4 Mg Tab) 4 mg PO BID [facility] Last Admin: 12/08/20 08:01 Dose: 4 mg Documented by: Discontinued Medications Dextrose/Water (50% Dextrose In Water 50 Ml Syringe) 50 ml IVPUSH ASDIRECTED PRN PRN Reason: Hypoglycemia Diphenhydramine HCl (Diphenhydramine 50 Mg/Ml Sdv) 25 mg IVPUSH ONETIME ONE Stop: 12/06/20 18:07 Last Admin: 12/06/20 18:41 Dose: 25 mg Documented by: Diphenhydramine HCl (Diphenhydramine 25 Mg Cap) 25 mg PO ONETIME ONE Stop: 12/06/20 23:10 Last Admin: 12/06/20 23:22 Dose: 25 mg Documented by: Diphenhydramine HCl (Diphenhydramine 25 Mg Cap) 25 mg PO ONETIME ONE Stop: 12/07/20 18:32 Last Admin: 12/07/20 18:42 Dose: 25 mg Documented by: Fluoxetine HCl (Fluoxetine 20 Mg Cap) 40 mg PO DAILY [facility] Glucagon (Glucagon,Human Recombinant 1 Mg Vial) 1 mg IM ASDIRECTED PRN PRN Reason: Hypoglycemia Hydromorphone HCl (Hydromorphone 2 Mg/Ml Syringe) 1 mg IVPUSH Q3H PRN PRN Reason: Pain (severe 7-10) Sodium Chloride (Normal Saline) 1,000 mls @ 999 mls/hr IV STAT ONE Stop: 12/06/20 16:38 Last Admin: 12/06/20 15:47 Dose: 999 mls/hr Documented by: Sodium Chloride (Normal Saline) 1,000 mls @ 999 mls/hr IV STAT ONE Stop: 12/06/20 16:39 Last Admin: 12/06/20 17:38 Dose: Not Given Documented by: Insulin Detemir (Insulin Detemir 100 Units/Ml 3 Ml Pen) 12 unit SUBCUT BEDTIME [facility] Insulin Detemir (Insulin Detemir 100 Units/Ml 3 Ml Pen) 12 unit SUBCUT ONETIME ONE Stop: 12/06/20 23:01 Last Admin: 12/06/20 23:26 Dose: 12 units Documented by: Insulin Human Regular (Insulin Regular, Human 100 Units/Ml 10 Ml Vial) 5 unit SUBCUT ONETIME ONE; Protocol Stop: 12/06/20 16:24 Last Admin: 12/06/20 17:05 Dose: 5 units Documented by: Levetiracetam (Levetiracetam 500 Mg Tab) 500 mg PO BID [facility] Morphine Sulfate (Morphine 2 Mg/Ml Syringe) 2 mg IVPUSH ONETIME ONE Stop: 12/06/20 16:24 Last Admin: 12/06/20 17:04 Dose: 2 mg Documented by: Non-Formulary Medication (Rosuvastatin) 5 mg PO BEDTIME [facility] Ondansetron HCl (Ondansetron 4 Mg/2 Ml Sdv) 4 mg IVPUSH ONETIME ONE Stop: 12/06/20 15:40 Last Admin: 12/06/20 15:47 Dose: 4 mg Documented by: Rosuvastatin Calcium (Rosuvastatin 10 Mg Tab) 5 mg PO ONETIME ONE Stop: 12/06/20 23:01 Last Admin: 12/06/20 23:25 Dose: 5 mg Documented by: Tizanidine HCl (Tizanidine 4 Mg Tab) 4 mg PO BID [facility] Tizanidine HCl (Tizanidine 4 Mg Tab) 4 mg PO ONETIME ONE Stop: 12/06/20 23:01 Last Admin: 12/06/20 23:23 Dose: 4 mg Documented by: - Exam Quality Assessment: DVT Prophylaxis General: Alert, Oriented, Cooperative, No Acute Distress HEENT: Pupils Equal, Pupils Reactive, EOMI, Mucous Membr. Moist/[place] Neck: Supple, No JVD Lungs: Clear to Auscultation, Normal Respiratory Effort Cardiovascular: Regular Rate, Regular Rhythm GI/Abdominal Exam: Normal Bowel Sounds, Soft, Tender. No: Distended, Guarding, Rebound Extremities: Normal Inspection, Normal Range of Motion, Non-Tender, No Pedal Edema, Normal Capillary Refill Peripheral Pulses: 2+: Carotid (L), Carotid (R), Dorsalis Pedis (L), Dorsalis Pedis (R) Skin: Warm, Dry, Intact Neurological: No New Focal Deficit Psy/Mental Status: Alert, Normal Affect, Normal Mood - Patient Data Lab Results Last 24 hrs: Laboratory Results - last 24 hr 12/07/20 12/07/20 12/08/20 Range/Units 16:59 20:38 05:12 WBC 8.37 (4.0-11.0) K/uL RBC 4.52 (4.30-5.90) M/uL Hgb 13.3 (12.0-16.0) g/dL Hct 39.6 (36.0-46.0) % MCV 87.6 (80.0-98.0) fL MCH 29.4 (27.0-32.0) pg MCHC 33.6 (31.0-37.0) g/dL RDW Std Deviation 41.2 (28.0-62.0) fl RDW Coeff of Zak 13 (11.0-15.0) % Plt Count 281 (150-400) K/uL MPV 10.50 (7.40-12.00) fL Neut % (Auto) 52.6 (48.0-80.0) % Lymph % (Auto) 40.4 H (16.0-40.0) % Scott % (Auto) 5.4 (0.0-15.0) % Eos % (Auto) 1.4 (0.0-7.0) % Baso % (Auto) 0.2 (0.0-1.5) % Neut # (Auto) 4.4 (1.4-5.7) K/uL Lymph # (Auto) 3.4 H (0.6-2.4) K/uL Scott # (Auto) 0.5 (0.0-0.8) K/uL Eos # (Auto) 0.1 (0.0-0.7) K/uL Baso # (Auto) 0.0 (0.0-0.1) K/uL Nucleated RBC % 0.0 /100WBC Nucleated RBCs # 0 K/uL Sodium (136-145) mmol/L Potassium (3.5-5.1) mmol/L Chloride (98-107) mmol/L Carbon Dioxide (21.0-32.0) mmol/L BUN (7.0-18.0) mg/dL Creatinine (0.6-1.0) mg/dL Est Cr Clr Drug Dosing mL/min Estimated GFR (MDRD) ml/min Glucose (74-106) mg/dL POC Glucose 245 H 198 H (70-99) mg/dL Calcium (8.5-10.1) mg/dL Total Bilirubin (0.2-1.0) mg/dL AST (15-37) IU/L ALT (14-63) IU/L Alkaline Phosphatase (46-116) U/L Total Protein (6.4-8.2) g/dL Albumin (3.4-5.0) g/dL Globulin (2.6-4.0) g/dL Albumin/Globulin Ratio (0.9-1.6) 12/08/20 12/08/20 12/08/20 Range/Units 05:12 06:05 11:34 WBC (4.0-11.0) K/uL RBC (4.30-5.90) M/uL Hgb (12.0-16.0) g/dL Hct (36.0-46.0) % MCV (80.0-98.0) fL MCH (27.0-32.0) pg MCHC (31.0-37.0) g/dL RDW Std Deviation (28.0-62.0) fl RDW Coeff of Zak (11.0-15.0) % Plt Count (150-400) K/uL MPV (7.40-12.00) fL Neut % (Auto) (48.0-80.0) % Lymph % (Auto) (16.0-40.0) % Scott % (Auto) (0.0-15.0) % Eos % (Auto) (0.0-7.0) % Baso % (Auto) (0.0-1.5) % Neut # (Auto) (1.4-5.7) K/uL Lymph # (Auto) (0.6-2.4) K/uL Scott # (Auto) (0.0-0.8) K/uL Eos # (Auto) (0.0-0.7) K/uL Baso # (Auto) (0.0-0.1) K/uL Nucleated RBC % /100WBC Nucleated RBCs # K/uL Sodium 137 (136-145) mmol/L Potassium 3.6 (3.5-5.1) mmol/L Chloride 102 (98-107) mmol/L Carbon Dioxide 21.1 (21.0-32.0) mmol/L BUN 6 L (7.0-18.0) mg/dL Creatinine 0.6 (0.6-1.0) mg/dL Est Cr Clr Drug Dosing 97.58 mL/min Estimated GFR (MDRD) > 60.0 ml/min Glucose 157 H (74-106) mg/dL POC Glucose 142 H 230 H (70-99) mg/dL Calcium 8.1 L (8.5-10.1) mg/dL Total Bilirubin 0.4 (0.2-1.0) mg/dL AST 18 (15-37) IU/L ALT 32 (14-63) IU/L Alkaline Phosphatase 129 H (46-116) U/L Total Protein 6.2 L (6.4-8.2) g/dL Albumin 2.8 L (3.4-5.0) g/dL Globulin 3.4 (2.6-4.0) g/dL Albumin/Globulin Ratio 0.8 L (0.9-1.6) Result Diagrams: 12/08/20 05:12 12/08/20 05:12 Sepsis Event Note - Evaluation Sepsis Screening Result: No Definite Risk - Focused Exam Vital Signs: Vital Signs Temp Pulse Resp BP Pulse Ox 12/08/20 11:48 97.7 F 97 16 122/76 99 12/08/20 08:00 97.3 F 82 18 120/72 95 12/08/20 04:00 97.2 F 93 17 130/64 97 - Problem List & Annotations (1) Seizure disorder SNOMED Code(s): 015526243 Code(s): G40.909 - EPILEPSY, UNSP, NOT INTRACTABLE, WITHOUT STATUS EPILEPTICUS Status: Acute (2) Intractable vomiting with nausea SNOMED Code(s): 297161176 Code(s): R11.2 - NAUSEA WITH VOMITING, UNSPECIFIED Status: Acute (3) Hyperglycemia due to type 1 diabetes mellitus SNOMED Code(s): 725137879918913, 258356133680113 Code(s): E10.65 - TYPE 1 DIABETES MELLITUS WITH HYPERGLYCEMIA Status: Chronic Priority: High Annotation/Comment:: 3 emergency room visits within a 24-hour period (4) Abdominal pain SNOMED Code(s): 26333558 Code(s): R10.9 - UNSPECIFIED ABDOMINAL PAIN Status: Acute Qualifiers: Abdominal location: unspecified location Qualified Code(s): R10.9 - Unspecified abdominal pain (5) Anxiety SNOMED Code(s): 28096031 Code(s): F41.9 - ANXIETY DISORDER, UNSPECIFIED Status: Acute (6) DKA, type 1 SNOMED Code(s): 19760818, 12705617 Code(s): E10.10 - TYPE 1 DIABETES MELLITUS WITH KETOACIDOSIS WITHOUT COMA Status: Acute Qualifiers: Diabetes mellitus complication detail: without coma Qualified Code(s): E10.10 - Type 1 diabetes mellitus with ketoacidosis without coma - Problem List Review Problem List Initiated/Reviewed/Updated: Yes - My Orders Last 24 Hours: My Active Orders 12/07/20 21:00 Insulin Detemir [Levemir] 12 unit SUBCUT BEDTIME Rosuvastatin [Crestor] 5 mg PO BEDTIME - Plan Plan:: 30-year-old female with complex past medical history including type 1 diabetes mellitus and seizure disorder presented with significant nausea vomiting and diarrhea, unable to tolerate p.o. intake and experienced a seizure. 1. Gastroparesis: Maintain hydration with 125mL LR, Substitute p.o. medications for IV Improved nausea, denies vomiting, still complaining of some pain, will readjust pain regimen to match home dose. Is being in withdrawal can be contributing to nausea. Improved glucose control, 157 today Initiate clear liquid diet with goals to advance diet as tolerated. 2. Hyperglycemia secondary to type 1 diabetes mellitus: Improved Blood sugar of 157 No anion gap therefore patient not in DKA, negative ketones, bicarb of 21.1 Start bedtime Levemir 12 units, sliding scale, check sugars 3 times daily AC, w ill adjust daily regimen per sliding scale needs. Consulted diabetes education, diabetes educater knows patient fairly well, understands the patient is not really compliant with suggested regimen. Re commended close follow-up post discharge. 3. History of seizure disorder: No seizure in last 48 hours-hour, continue home dose, once tolerating diet will advance to p.o. from IV form form. I have seen and evaluated the patient and agree with the residents note unless specified in my note <Mirella Warren - Last Filed: 12/12/20 16:19> - Patient Data Vitals - Most Recent: Last Vital Signs Temp 36.0 C L 12/10/20 15:27 Pulse 74 12/10/20 15:27 Resp 20 12/10/20 15:27 BP 94/59 L 12/10/20 15:27 Pulse Ox 97 12/10/20 15:27 Med Orders - Current: Current Medications Discontinued Medications Dextrose/Water (50% Dextrose In Water 50 Ml Syringe) 50 ml IVPUSH ASDIRECTED PRN PRN Reason: Hypoglycemia Dextrose/Water (50% Dextrose In Water 50 Ml Syringe) 50 ml IVPUSH ASDIRECTED PRN PRN Reason: Hypoglycemia Dextrose/Water (50% Dextrose In Water 50 Ml Syringe) 50 ml IVPUSH ASDIRECTED PRN PRN Reason: Hypoglycemia Diphenhydramine HCl (Diphenhydramine 50 Mg/Ml Sdv) 25 mg IVPUSH ONETIME ONE Stop: 12/06/20 18:07 Last Admin: 12/06/20 18:41 Dose: 25 mg Documented by: Diphenhydramine HCl (Diphenhydramine 25 Mg Cap) 25 mg PO ONETIME ONE Stop: 12/06/20 23:10 Last Admin: 12/06/20 23:22 Dose: 25 mg Documented by: Diphenhydramine HCl (Diphenhydramine 25 Mg Cap) 25 mg PO ONETIME ONE Stop: 12/07/20 18:32 Last Admin: 12/07/20 18:42 Dose: 25 mg Documented by: Fluoxetine HCl (Fluoxetine 20 Mg Cap) 40 mg PO DAILY [facility] Fluoxetine HCl (Fluoxetine 20 Mg Cap) 40 mg PO DAILY [facility] Last Admin: 12/10/20 08:02 Dose: 40 mg Documented by: Glucagon (Glucagon,Human Recombinant 1 Mg Vial) 1 mg IM ASDIRECTED PRN PRN Reason: Hypoglycemia Glucagon (Glucagon,Human Recombinant 1 Mg Vial) 1 mg IM ASDIRECTED PRN PRN Reason: Hypoglycemia Glucagon (Glucagon,Human Recombinant 1 Mg Vial) 1 mg IM ASDIRECTED PRN PRN Reason: Hypoglycemia Hydromorphone HCl (Hydromorphone 2 Mg/Ml Syringe) 1 mg IVPUSH Q3H PRN PRN Reason: Pain (severe 7-10) Hydromorphone HCl (Hydromorphone 1 Mg/Ml Syringe) 1 mg IVPUSH Q3H PRN PRN Reason: Pain (severe 7-10) Stop: 12/09/20 13:00 Last Admin: 12/09/20 12:29 Dose: 1 mg Documented by: Sodium Chloride (Normal Saline) 1,000 mls @ 999 mls/hr IV STAT ONE Stop: 12/06/20 16:38 Last Admin: 12/06/20 15:47 Dose: 999 mls/hr Documented by: Sodium Chloride (Normal Saline) 1,000 mls @ 999 mls/hr IV STAT ONE Stop: 12/06/20 16:39 Last Admin: 12/06/20 17:38 Dose: Not Given Documented by: Lactated Ringer's (Ringers, Lactated) 1,000 mls @ 150 mls/hr IV ASDIRECTED [facility] Last Admin: 12/10/20 06:03 Dose: 150 mls/hr Documented by: Levetiracetam 500 mg/ Dextrose (/Water) 105 mls @ 420 mls/hr IV Q12H [facility] Last Admin: 12/10/20 09:47 Dose: 420 mls/hr Documented by: Pantoprazole Sodium 40 mg/ (Sodium Chloride) 10 mls @ 300 mls/hr IV DAILY [facility] Last Admin: 12/10/20 08:03 Dose: 300 mls/hr Documented by: Magnesium Sulfate 2 gm/ Premix 50 mls @ 12.5 mls/hr IV ONETIME ONE Stop: 12/10/20 14:38 Last Admin: 12/10/20 11:08 Dose: 12.5 mls/hr Documented by: Insulin Aspart (Insulin Aspart 100 Units/Ml 3 Ml Pen) 0 unit SUBCUT TIDAC [facility]; Protocol Last Admin: 12/10/20 17:45 Dose: Not Given Documented by: Insulin Detemir (Insulin Detemir 100 Units/Ml 3 Ml Pen) 12 unit SUBCUT BEDTIME [facility] Insulin Detemir (Insulin Detemir 100 Units/Ml 3 Ml Pen) 12 unit SUBCUT BEDTIME [facility] Last Admin: 12/08/20 21:00 Dose: 12 units Documented by: Insulin Detemir (Insulin Detemir 100 Units/Ml 3 Ml Pen) 12 unit SUBCUT ONETIME ONE Stop: 12/06/20 23:01 Last Admin: 12/06/20 23:26 Dose: 12 units Documented by: Insulin Detemir (Insulin Detemir 100 Units/Ml 3 Ml Pen) 15 unit SUBCUT BEDTIME [facility] Last Admin: 12/09/20 20:25 Dose: 15 units Documented by: Insulin Detemir (Insulin Detemir 100 Units/Ml 3 Ml Pen) 12 unit SUBCUT ONETIME ONE Stop: 12/10/20 11:46 Last Admin: 12/10/20 11:45 Dose: 12 unit Documented by: Insulin Detemir (Insulin Detemir 100 Units/Ml 10 Ml Vial) 12 unit SUBCUT BIDAC [facility] Last Admin: 12/10/20 17:43 Dose: Not Given Documented by: Insulin Human Regular (Insulin Regular, Human 100 Units/Ml 10 Ml Vial) 5 unit SUBCUT ONETIME ONE; Protocol Stop: 12/06/20 16:24 Last Admin: 12/06/20 17:05 Dose: 5 units Documented by: Levetiracetam (Levetiracetam 500 Mg Tab) 500 mg PO BID [facility] Levothyroxine Sodium (Levothyroxine 112 Mcg Tab) 112 mcg PO ACBREAKFAST [facility] Last Admin: 12/10/20 08:01 Dose: 112 mcg Documented by: Levothyroxine Sodium (Levothyroxine 25 Mcg Tab) 25 mcg PO ACBRK [facility] Last Admin: 12/10/20 08:01 Dose: 25 mcg Documented by: Lorazepam (Lorazepam 1 Mg Tab) 1 mg PO TID [facility] Last Admin: 12/10/20 13:09 Dose: 1 mg Documented by: Morphine Sulfate (Morphine 2 Mg/Ml Syringe) 2 mg IVPUSH ONETIME ONE Stop: 12/06/20 16:24 Last Admin: 12/06/20 17:04 Dose: 2 mg Documented by: Morphine Sulfate (Morphine 15 Mg Tab) 15 mg PO Q4H PRN PRN Reason: Pain Last Admin: 12/10/20 04:35 Dose: 15 mg Documented by: Non-Formulary Medication (Rosuvastatin) 5 mg PO BEDTIME [facility] Ondansetron HCl (Ondansetron 4 Mg/2 Ml Sdv) 4 mg IVPUSH ONETIME ONE Stop: 12/06/20 15:40 Last Admin: 12/06/20 15:47 Dose: 4 mg Documented by: Ondansetron HCl (Ondansetron 4 Mg Tab.Dis) 4 mg PO Q4H PRN PRN Reason: nausea, able to take PO Last Admin: 12/10/20 08:55 Dose: 4 mg Documented by: Potassium Chloride (Potassium Chloride 20 Meq Tab.Er) 40 meq PO ONETIME ONE Stop: 12/10/20 10:40 Last Admin: 12/10/20 11:06 Dose: 40 meq Documented by: Promethazine HCl (Promethazine 25 Mg/Ml Sdv) 12.5 mg IM Q6H PRN PRN Reason: Nausea Last Admin: 12/08/20 10:46 Dose: 12.5 mg Documented by: Rosuvastatin Calcium (Rosuvastatin 10 Mg Tab) 5 mg PO BEDTIME [facility] Last Admin: 12/09/20 20:25 Dose: 5 mg Documented by: Rosuvastatin Calcium (Rosuvastatin 10 Mg Tab) 5 mg PO ONETIME ONE Stop: 12/06/20 23:01 Last Admin: 12/06/20 23:25 Dose: 5 mg Documented by: Sodium Chloride (Sodium Chloride 0.9% 10 Ml Syringe) 10 ml FLUSH ASDIRECTED PRN PRN Reason: Keep Vein Open Last Admin: 12/06/20 15:50 Dose: 10 ml Documented by: Sodium Chloride (Sodium Chloride 0.9% 2.5 Ml Syringe) 2.5 ml FLUSH ASDIRECTED PRN PRN Reason: Keep Vein Open Last Admin: 12/07/20 10:14 Dose: 2.5 ml Documented by: Sodium Phosphate (Phosphorus #1 250 Mg Tab) 250 mg PO QID [facility] Last Admin: 12/10/20 12:07 Dose: Not Given Documented by: Tizanidine HCl (Tizanidine 4 Mg Tab) 4 mg PO BID [facility] Tizanidine HCl (Tizanidine 4 Mg Tab) 4 mg PO BID [facility] Last Admin: 12/10/20 08:03 Dose: 4 mg Documented by: Tizanidine HCl (Tizanidine 4 Mg Tab) 4 mg PO ONETIME ONE Stop: 12/06/20 23:01 Last Admin: 12/06/20 23:23 Dose: 4 mg Documented by: - Patient Data Result Diagrams: 12/10/20 05:30 12/10/20 05:30 - Plan Plan:: I have seen and evaluated the patient and agree with the residents note unless specified in my note
[2020-12-08] MEDS: Insulin Detemir 100 Units/ML 3 ML Pen SUBCUT SCH (21:00)
[2020-12-08] MEDS: Rosuvastatin 10 MG Tab PO SCH (21:00)
[2020-12-09] MEDS: HYDROmorphone 1 MG/ML Syringe IVPUSH PRN ×4 (00:24→12:29)
[2020-12-09] MEDS: Ondansetron 4 MG Tab.DIS PO PRN ×2 (03:57→16:15)
[2020-12-09] MEDS: Lactated Ringers 1,000 ML IV SCH ×3 (03:58→16:21)
[2020-12-09 05:39] LABS: BLOOD UREA NITROGEN,BUN 7 mg/dL (7.0-18.0); CHLORIDE,CL 101 mmol/L (98-107); GLUCOSE RANDOM 257 mg/dL (74-106); SODIUM,NA 136 mmol/L (136-145)
[2020-12-09 05:49] LABS: CARBON DIOXIDE,CO2 11.2 mmol/L (21.0-32.0)
[2020-12-09] MEDS: LORazepam 1 MG Tab PO SCH ×3 (06:15→21:36)
[2020-12-09] MEDS: tiZANidine 4 MG Tab PO SCH ×2 (08:24→20:24)
[2020-12-09] MEDS: FLUoxetine 20 MG Cap PO SCH (08:24)
[2020-12-09] MEDS: Levothyroxine 25 MCG Tab PO SCH (08:24)
[2020-12-09] MEDS: Levothyroxine 112 MCG Tab PO SCH (08:25)
[2020-12-09] MEDS: Insulin Aspart 100 Units/ML 3 ML Pen SUBCUT SCH ×3 (08:25→16:20)
--- NOTE | 2020-12-09 09:36 | PCM.PN ---
<Chandni Weaver - Last Filed: 12/09/20 21:03> - General Info Date of Service: 12/09/20 Admission Dx/Problem (Free Text): Admission Diagnosis/Problem Admission Diagnosis/Problem Intractable vomiting Subjective Update: There were no overnight events, patient has remained n.p.o., states mild improvement, nausea has improved, diarrhea has resolved. Patient continues to have abdominal discomfort secondary to gastroparesis. Functional Status: Reports: Pain Controlled, Tolerating Diet - Review of Systems General: Reports: No Symptoms HEENT: Reports: No Symptoms Pulmonary: Reports: No Symptoms Cardiovascular: Reports: No Symptoms Gastrointestinal: Reports: Abdominal Pain Genitourinary: Reports: No Symptoms Musculoskeletal: Reports: No Symptoms Skin: Reports: No Symptoms Neurological: Reports: No Symptoms Psychiatric: Reports: No Symptoms - Patient Data Vitals - Most Recent: Last Vital Signs Temp 97.5 F 12/09/20 07:09 Pulse 90 12/09/20 07:09 Resp 12 12/09/20 07:09 BP 110/69 12/09/20 07:09 Pulse Ox 98 12/09/20 07:09 Weight - Most Recent: 74.435 kg I&O - Last 24 Hours: Intake & Output 12/08/20 12/09/20 12/09/20 22:59 06:59 14:59 Intake Total 1899 300 240 Output Total 1550 2250 Balance 349 -1950 240 Lab Results Last 24 Hours: Laboratory Results - last 24 hr 12/08/20 12/08/20 12/08/20 Range/Units 11:34 16:47 22:12 WBC (4.0-11.0) K/uL RBC (4.30-5.90) M/uL Hgb (12.0-16.0) g/dL Hct (36.0-46.0) % MCV (80.0-98.0) fL MCH (27.0-32.0) pg MCHC (31.0-37.0) g/dL RDW Std Deviation (28.0-62.0) fl RDW Coeff of Zak (11.0-15.0) % Plt Count (150-400) K/uL MPV (7.40-12.00) fL Neut % (Auto) (48.0-80.0) % Lymph % (Auto) (16.0-40.0) % [place] % (Auto) (0.0-15.0) % Eos % (Auto) (0.0-7.0) % Baso % (Auto) (0.0-1.5) % Neut # (Auto) (1.4-5.7) K/uL Lymph # (Auto) (0.6-2.4) K/uL [place] # (Auto) (0.0-0.8) K/uL Eos # (Auto) (0.0-0.7) K/uL Baso # (Auto) (0.0-0.1) K/uL Nucleated RBC % /100WBC Nucleated RBCs # K/uL Sodium (136-145) mmol/L Potassium (3.5-5.1) mmol/L Chloride (98-107) mmol/L Carbon Dioxide (21.0-32.0) mmol/L BUN (7.0-18.0) mg/dL Creatinine (0.6-1.0) mg/dL Est Cr Clr Drug Dosing mL/min Estimated GFR (MDRD) ml/min Glucose (74-106) mg/dL POC Glucose 230 H 377 H 380 H (70-99) mg/dL Calcium (8.5-10.1) mg/dL Phosphorus (2.6-4.7) mg/dL Magnesium (1.8-2.4) mg/dL Total Bilirubin (0.2-1.0) mg/dL AST (15-37) IU/L ALT (14-63) IU/L Alkaline Phosphatase (46-116) U/L Total Protein (6.4-8.2) g/dL Albumin (3.4-5.0) g/dL Globulin (2.6-4.0) g/dL Albumin/Globulin Ratio (0.9-1.6) 12/09/20 12/09/20 12/09/20 Range/Units 05:10 05:10 06:05 WBC 9.09 (4.0-11.0) K/uL RBC 4.53 (4.30-5.90) M/uL Hgb 13.2 (12.0-16.0) g/dL Hct 40.5 (36.0-46.0) % MCV 89.4 (80.0-98.0) fL MCH 29.1 (27.0-32.0) pg MCHC 32.6 (31.0-37.0) g/dL RDW Std Deviation 41.7 (28.0-62.0) fl RDW Coeff of Zak 13 (11.0-15.0) % Plt Count 280 (150-400) K/uL MPV 10.20 (7.40-12.00) fL Neut % (Auto) 59.2 (48.0-80.0) % Lymph % (Auto) 34.7 (16.0-40.0) % [place] % (Auto) 5.2 (0.0-15.0) % Eos % (Auto) 0.7 (0.0-7.0) % Baso % (Auto) 0.2 (0.0-1.5) % Neut # (Auto) 5.4 (1.4-5.7) K/uL Lymph # (Auto) 3.2 H (0.6-2.4) K/uL [place] # (Auto) 0.5 (0.0-0.8) K/uL Eos # (Auto) 0.1 (0.0-0.7) K/uL Baso # (Auto) 0.0 (0.0-0.1) K/uL Nucleated RBC % 0.0 /100WBC Nucleated RBCs # 0 K/uL Sodium 136 (136-145) mmol/L Potassium 4.0 (3.5-5.1) mmol/L Chloride 101 (98-107) mmol/L Carbon Dioxide 11.2 L (21.0-32.0) mmol/L BUN 7 (7.0-18.0) mg/dL Creatinine 0.7 (0.6-1.0) mg/dL Est Cr Clr Drug Dosing 83.64 mL/min Estimated GFR (MDRD) > 60.0 ml/min Glucose 257 H (74-106) mg/dL POC Glucose 217 H (70-99) mg/dL Calcium 8.1 L (8.5-10.1) mg/dL Phosphorus 3.0 (2.6-4.7) mg/dL Magnesium 1.7 L (1.8-2.4) mg/dL Total Bilirubin 0.5 (0.2-1.0) mg/dL AST 21 (15-37) IU/L ALT 32 (14-63) IU/L Alkaline Phosphatase 140 H (46-116) U/L Total Protein 6.5 (6.4-8.2) g/dL Albumin 3.0 L (3.4-5.0) g/dL Globulin 3.5 (2.6-4.0) g/dL Albumin/Globulin Ratio 0.9 (0.9-1.6) Med Orders - Current: Current Medications Dextrose/Water (50% Dextrose In Water 50 Ml Syringe) 50 ml IVPUSH ASDIRECTED PRN PRN Reason: Hypoglycemia Fluoxetine HCl (Fluoxetine 20 Mg Cap) 40 mg PO DAILY [facility] Last Admin: 12/09/20 08:24 Dose: 40 mg Documented by: Glucagon (Glucagon,Human Recombinant 1 Mg Vial) 1 mg IM ASDIRECTED PRN PRN Reason: Hypoglycemia Hydromorphone HCl (Hydromorphone 1 Mg/Ml Syringe) 1 mg IVPUSH Q3H PRN PRN Reason: Pain (severe 7-10) Last Admin: 12/09/20 08:10 Dose: 1 mg Documented by: Lactated Ringer's (Ringers, Lactated) 1,000 mls @ 150 mls/hr IV ASDIRECTED [facility] Last Admin: 12/09/20 03:58 Dose: 150 mls/hr Documented by: Levetiracetam 500 mg/ Dextrose (/Water) 105 mls @ 420 mls/hr IV Q12H [facility] Last Admin: 12/08/20 21:00 Dose: 420 mls/hr Documented by: Pantoprazole Sodium 40 mg/ (Sodium Chloride) 10 mls @ 300 mls/hr IV DAILY [facility] Last Admin: 12/08/20 09:28 Dose: Not Given Documented by: Insulin Aspart (Insulin Aspart 100 Units/Ml 3 Ml Pen) 0 unit SUBCUT TIDAC [facility]; Protocol Last Admin: 12/09/20 08:25 Dose: 2 units Documented by: Insulin Detemir (Insulin Detemir 100 Units/Ml 3 Ml Pen) 12 unit SUBCUT BEDTIME [facility] Last Admin: 12/08/20 21:00 Dose: 12 units Documented by: Levothyroxine Sodium (Levothyroxine 112 Mcg Tab) 112 mcg PO ACBREAKFAST [facility] Last Admin: 12/09/20 08:25 Dose: 112 mcg Documented by: Levothyroxine Sodium (Levothyroxine 25 Mcg Tab) 25 mcg PO ACBRK [facility] Last Admin: 12/09/20 08:24 Dose: 25 mcg Documented by: Lorazepam (Lorazepam 1 Mg Tab) 1 mg PO TID [facility] Last Admin: 12/09/20 06:15 Dose: 1 mg Documented by: Ondansetron HCl (Ondansetron 4 Mg Tab.Dis) 4 mg PO Q4H PRN PRN Reason: nausea, able to take PO Last Admin: 12/09/20 03:57 Dose: 4 mg Documented by: Promethazine HCl (Promethazine 25 Mg/Ml Sdv) 12.5 mg IM Q6H PRN PRN Reason: Nausea Last Admin: 12/08/20 10:46 Dose: 12.5 mg Documented by: Rosuvastatin Calcium (Rosuvastatin 10 Mg Tab) 5 mg PO BEDTIME [facility] Last Admin: 12/08/20 21:00 Dose: 5 mg Documented by: Sodium Chloride (Sodium Chloride 0.9% 10 Ml Syringe) 10 ml FLUSH ASDIRECTED PRN PRN Reason: Keep Vein Open Last Admin: 12/06/20 15:50 Dose: 10 ml Documented by: Sodium Chloride (Sodium Chloride 0.9% 2.5 Ml Syringe) 2.5 ml FLUSH ASDIRECTED PRN PRN Reason: Keep Vein Open Last Admin: 12/07/20 10:14 Dose: 2.5 ml Documented by: Tizanidine HCl (Tizanidine 4 Mg Tab) 4 mg PO BID [facility] Last Admin: 12/09/20 08:24 Dose: 4 mg Documented by: Discontinued Medications Dextrose/Water (50% Dextrose In Water 50 Ml Syringe) 50 ml IVPUSH ASDIRECTED PRN PRN Reason: Hypoglycemia Diphenhydramine HCl (Diphenhydramine 50 Mg/Ml Sdv) 25 mg IVPUSH ONETIME ONE Stop: 12/06/20 18:07 Last Admin: 12/06/20 18:41 Dose: 25 mg Documented by: Diphenhydramine HCl (Diphenhydramine 25 Mg Cap) 25 mg PO ONETIME ONE Stop: 12/06/20 23:10 Last Admin: 12/06/20 23:22 Dose: 25 mg Documented by: Diphenhydramine HCl (Diphenhydramine 25 Mg Cap) 25 mg PO ONETIME ONE Stop: 12/07/20 18:32 Last Admin: 12/07/20 18:42 Dose: 25 mg Documented by: Fluoxetine HCl (Fluoxetine 20 Mg Cap) 40 mg PO DAILY [facility] Glucagon (Glucagon,Human Recombinant 1 Mg Vial) 1 mg IM ASDIRECTED PRN PRN Reason: Hypoglycemia Hydromorphone HCl (Hydromorphone 2 Mg/Ml Syringe) 1 mg IVPUSH Q3H PRN PRN Reason: Pain (severe 7-10) Sodium Chloride (Normal Saline) 1,000 mls @ 999 mls/hr IV STAT ONE Stop: 12/06/20 16:38 Last Admin: 12/06/20 15:47 Dose: 999 mls/hr Documented by: Sodium Chloride (Normal Saline) 1,000 mls @ 999 mls/hr IV STAT ONE Stop: 12/06/20 16:39 Last Admin: 12/06/20 17:38 Dose: Not Given Documented by: Insulin Detemir (Insulin Detemir 100 Units/Ml 3 Ml Pen) 12 unit SUBCUT BEDTIME [facility] Insulin Detemir (Insulin Detemir 100 Units/Ml 3 Ml Pen) 12 unit SUBCUT ONETIME ONE Stop: 12/06/20 23:01 Last Admin: 12/06/20 23:26 Dose: 12 units Documented by: Insulin Human Regular (Insulin Regular, Human 100 Units/Ml 10 Ml Vial) 5 unit SUBCUT ONETIME ONE; Protocol Stop: 12/06/20 16:24 Last Admin: 12/06/20 17:05 Dose: 5 units Documented by: Levetiracetam (Levetiracetam 500 Mg Tab) 500 mg PO BID [facility] Morphine Sulfate (Morphine 2 Mg/Ml Syringe) 2 mg IVPUSH ONETIME ONE Stop: 12/06/20 16:24 Last Admin: 12/06/20 17:04 Dose: 2 mg Documented by: Non-Formulary Medication (Rosuvastatin) 5 mg PO BEDTIME [facility] Ondansetron HCl (Ondansetron 4 Mg/2 Ml Sdv) 4 mg IVPUSH ONETIME ONE Stop: 12/06/20 15:40 Last Admin: 12/06/20 15:47 Dose: 4 mg Documented by: Rosuvastatin Calcium (Rosuvastatin 10 Mg Tab) 5 mg PO ONETIME ONE Stop: 12/06/20 23:01 Last Admin: 12/06/20 23:25 Dose: 5 mg Documented by: Tizanidine HCl (Tizanidine 4 Mg Tab) 4 mg PO BID [facility] Tizanidine HCl (Tizanidine 4 Mg Tab) 4 mg PO ONETIME ONE Stop: 12/06/20 23:01 Last Admin: 12/06/20 23:23 Dose: 4 mg Documented by: - Exam Quality Assessment: DVT Prophylaxis General: Alert, Oriented, Cooperative HEENT: Pupils Equal, Pupils Reactive, EOMI Neck: Supple Lungs: Clear to Auscultation, Normal Respiratory Effort Cardiovascular: Regular Rate, Regular Rhythm GI/Abdominal Exam: Normal Bowel Sounds, Soft, Tender Extremities: Normal Inspection, Normal Range of Motion, No Pedal Edema, Normal Capillary Refill Peripheral Pulses: 2+: Carotid (L), Carotid (R), Dorsalis Pedis (L), Dorsalis Pedis (R) Skin: Warm, Dry, Intact Neurological: No New Focal Deficit Psy/Mental Status: Alert, Normal Affect, Normal Mood - Patient Data Lab Results Last 24 hrs: Laboratory Results - last 24 hr 12/08/20 12/08/20 12/08/20 Range/Units 11:34 16:47 22:12 WBC (4.0-11.0) K/uL RBC (4.30-5.90) M/uL Hgb (12.0-16.0) g/dL Hct (36.0-46.0) % MCV (80.0-98.0) fL MCH (27.0-32.0) pg MCHC (31.0-37.0) g/dL RDW Std Deviation (28.0-62.0) fl RDW Coeff of Zak (11.0-15.0) % Plt Count (150-400) K/uL MPV (7.40-12.00) fL Neut % (Auto) (48.0-80.0) % Lymph % (Auto) (16.0-40.0) % [place] % (Auto) (0.0-15.0) % Eos % (Auto) (0.0-7.0) % Baso % (Auto) (0.0-1.5) % Neut # (Auto) (1.4-5.7) K/uL Lymph # (Auto) (0.6-2.4) K/uL [place] # (Auto) (0.0-0.8) K/uL Eos # (Auto) (0.0-0.7) K/uL Baso # (Auto) (0.0-0.1) K/uL Nucleated RBC % /100WBC Nucleated RBCs # K/uL Sodium (136-145) mmol/L Potassium (3.5-5.1) mmol/L Chloride (98-107) mmol/L Carbon Dioxide (21.0-32.0) mmol/L BUN (7.0-18.0) mg/dL Creatinine (0.6-1.0) mg/dL Est Cr Clr Drug Dosing mL/min Estimated GFR (MDRD) ml/min Glucose (74-106) mg/dL POC Glucose 230 H 377 H 380 H (70-99) mg/dL Calcium (8.5-10.1) mg/dL Phosphorus (2.6-4.7) mg/dL Magnesium (1.8-2.4) mg/dL Total Bilirubin (0.2-1.0) mg/dL AST (15-37) IU/L ALT (14-63) IU/L Alkaline Phosphatase (46-116) U/L Total Protein (6.4-8.2) g/dL Albumin (3.4-5.0) g/dL Globulin (2.6-4.0) g/dL Albumin/Globulin Ratio (0.9-1.6) 12/09/20 12/09/20 12/09/20 Range/Units 05:10 05:10 06:05 WBC 9.09 (4.0-11.0) K/uL RBC 4.53 (4.30-5.90) M/uL Hgb 13.2 (12.0-16.0) g/dL Hct 40.5 (36.0-46.0) % MCV 89.4 (80.0-98.0) fL MCH 29.1 (27.0-32.0) pg MCHC 32.6 (31.0-37.0) g/dL RDW Std Deviation 41.7 (28.0-62.0) fl RDW Coeff of Zak 13 (11.0-15.0) % Plt Count 280 (150-400) K/uL MPV 10.20 (7.40-12.00) fL Neut % (Auto) 59.2 (48.0-80.0) % Lymph % (Auto) 34.7 (16.0-40.0) % [place] % (Auto) 5.2 (0.0-15.0) % Eos % (Auto) 0.7 (0.0-7.0) % Baso % (Auto) 0.2 (0.0-1.5) % Neut # (Auto) 5.4 (1.4-5.7) K/uL Lymph # (Auto) 3.2 H (0.6-2.4) K/uL [place] # (Auto) 0.5 (0.0-0.8) K/uL Eos # (Auto) 0.1 (0.0-0.7) K/uL Baso # (Auto) 0.0 (0.0-0.1) K/uL Nucleated RBC % 0.0 /100WBC Nucleated RBCs # 0 K/uL Sodium 136 (136-145) mmol/L Potassium 4.0 (3.5-5.1) mmol/L Chloride 101 (98-107) mmol/L Carbon Dioxide 11.2 L (21.0-32.0) mmol/L BUN 7 (7.0-18.0) mg/dL Creatinine 0.7 (0.6-1.0) mg/dL Est Cr Clr Drug Dosing 83.64 mL/min Estimated GFR (MDRD) > 60.0 ml/min Glucose 257 H (74-106) mg/dL POC Glucose 217 H (70-99) mg/dL Calcium 8.1 L (8.5-10.1) mg/dL Phosphorus 3.0 (2.6-4.7) mg/dL Magnesium 1.7 L (1.8-2.4) mg/dL Total Bilirubin 0.5 (0.2-1.0) mg/dL AST 21 (15-37) IU/L ALT 32 (14-63) IU/L Alkaline Phosphatase 140 H (46-116) U/L Total Protein 6.5 (6.4-8.2) g/dL Albumin 3.0 L (3.4-5.0) g/dL Globulin 3.5 (2.6-4.0) g/dL Albumin/Globulin Ratio 0.9 (0.9-1.6) Result Diagrams: 12/09/20 05:10 12/09/20 05:10 Sepsis Event Note - Evaluation Sepsis Screening Result: No Definite Risk - Focused Exam Vital Signs: Vital Signs Temp Pulse Resp BP Pulse Ox 12/09/20 07:09 97.5 F 90 12 110/69 98 12/09/20 04:00 98.5 F 93 17 101/65 97 12/09/20 00:00 98.2 F 94 17 104/68 97 - Problem List & Annotations (1) Seizure disorder SNOMED Code(s): 618552764 Code(s): G40.909 - EPILEPSY, UNSP, NOT INTRACTABLE, WITHOUT STATUS EPILEPTICUS Status: Acute (2) Intractable vomiting with nausea SNOMED Code(s): 943119865 Code(s): R11.2 - NAUSEA WITH VOMITING, UNSPECIFIED Status: Acute (3) Hyperglycemia due to type 1 diabetes mellitus SNOMED Code(s): 766466864532961, 446136991593551 Code(s): E10.65 - TYPE 1 DIABETES MELLITUS WITH HYPERGLYCEMIA Status: Chronic Priority: High Annotation/Comment:: 3 emergency room visits within a 24-hour period (4) Abdominal pain SNOMED Code(s): 57555596 Code(s): R10.9 - UNSPECIFIED ABDOMINAL PAIN Status: Acute Qualifiers: Abdominal location: unspecified location Qualified Code(s): R10.9 - Unspecified abdominal pain (5) Anxiety SNOMED Code(s): 34743407 Code(s): F41.9 - ANXIETY DISORDER, UNSPECIFIED Status: Acute (6) DKA, type 1 SNOMED Code(s): 69642977, 05192536 Code(s): E10.10 - TYPE 1 DIABETES MELLITUS WITH KETOACIDOSIS WITHOUT COMA Status: Acute Qualifiers: Diabetes mellitus complication detail: without coma Qualified Code(s): E10.10 - Type 1 diabetes mellitus with ketoacidosis without coma - Problem List Review Problem List Initiated/Reviewed/Updated: Yes - My Orders Last 24 Hours: My Active Orders 12/10/20 05:11 CBC WITH AUTO DIFF [HEME] AM COMPREHENSIVE METABOLIC PN,CMP [CHEM] AM MAGNESIUM [CHEM] AM PHOSPHORUS [CHEM] AM 12/11/20 05:11 CBC WITH AUTO DIFF [HEME] AM COMPREHENSIVE METABOLIC PN,CMP [CHEM] AM MAGNESIUM [CHEM] AM PHOSPHORUS [CHEM] AM - Plan Plan:: 30-year-old female with complex past medical history including type 1 diabetes mellitus and seizure disorder presented with significant nausea vomiting and diarrhea, unable to tolerate p.o. intake and experienced a seizure. 1. Gastroparesis: DC fluids, advance diet to soft mechanical diet as tolerated. MS Contin and resume home dose of pain medication. Improved nausea, denies vomiting, still complaining of some pain, will readjust pain regimen to match home dose. Is being in withdrawal can be contributing to nausea. Continue with appropriate glucose control. 2. Hyperglycemia secondary to type 1 diabetes mellitus: Improved Blood sugar of 257 No anion gap therefore patient not in DKA, negative ketones, bicarb of 21.1 Adjust bedtime Levemir to 15 units, and medium dose sliding scale, check sugars 3 times daily AC, will adjust daily regimen per sliding scale needs. Consulted diabetes education, diabetes educater knows patient fairly well, understands the patient is not really compliant with suggested regimen. Recommended close follow-up post discharge. 3. History of seizure disorder: No seizure in last 72 hours-hour, continue home dose, once tolerating diet will advance to p.o. from IV form form. I have seen and evaluated the patient and agree with the residents note unless specified in my note <Mirella Warren - Last Filed: 12/12/20 16:22> - Patient Data Vitals - Most Recent: Last Vital Signs Temp 36.0 C L 12/10/20 15:27 Pulse 74 12/10/20 15:27 Resp 20 12/10/20 15:27 BP 94/59 L 12/10/20 15:27 Pulse Ox 97 12/10/20 15:27 Med Orders - Current: Current Medications Discontinued Medications Dextrose/Water (50% Dextrose In Water 50 Ml Syringe) 50 ml IVPUSH ASDIRECTED PRN PRN Reason: Hypoglycemia Dextrose/Water (50% Dextrose In Water 50 Ml Syringe) 50 ml IVPUSH ASDIRECTED PRN PRN Reason: Hypoglycemia Dextrose/Water (50% Dextrose In Water 50 Ml Syringe) 50 ml IVPUSH ASDIRECTED PRN PRN Reason: Hypoglycemia Diphenhydramine HCl (Diphenhydramine 50 Mg/Ml Sdv) 25 mg IVPUSH ONETIME ONE Stop: 12/06/20 18:07 Last Admin: 12/06/20 18:41 Dose: 25 mg Documented by: Diphenhydramine HCl (Diphenhydramine 25 Mg Cap) 25 mg PO ONETIME ONE Stop: 12/06/20 23:10 Last Admin: 12/06/20 23:22 Dose: 25 mg Documented by: Diphenhydramine HCl (Diphenhydramine 25 Mg Cap) 25 mg PO ONETIME ONE Stop: 12/07/20 18:32 Last Admin: 12/07/20 18:42 Dose: 25 mg Documented by: Fluoxetine HCl (Fluoxetine 20 Mg Cap) 40 mg PO DAILY [facility] Fluoxetine HCl (Fluoxetine 20 Mg Cap) 40 mg PO DAILY [facility] Last Admin: 12/10/20 08:02 Dose: 40 mg Documented by: Glucagon (Glucagon,Human Recombinant 1 Mg Vial) 1 mg IM ASDIRECTED PRN PRN Reason: Hypoglycemia Glucagon (Glucagon,Human Recombinant 1 Mg Vial) 1 mg IM ASDIRECTED PRN PRN Reason: Hypoglycemia Glucagon (Glucagon,Human Recombinant 1 Mg Vial) 1 mg IM ASDIRECTED PRN PRN Reason: Hypoglycemia Hydromorphone HCl (Hydromorphone 2 Mg/Ml Syringe) 1 mg IVPUSH Q3H PRN PRN Reason: Pain (severe 7-10) Hydromorphone HCl (Hydromorphone 1 Mg/Ml Syringe) 1 mg IVPUSH Q3H PRN PRN Reason: Pain (severe 7-10) Stop: 12/09/20 13:00 Last Admin: 12/09/20 12:29 Dose: 1 mg Documented by: Sodium Chloride (Normal Saline) 1,000 mls @ 999 mls/hr IV STAT ONE Stop: 12/06/20 16:38 Last Admin: 12/06/20 15:47 Dose: 999 mls/hr Documented by: Sodium Chloride (Normal Saline) 1,000 mls @ 999 mls/hr IV STAT ONE Stop: 12/06/20 16:39 Last Admin: 12/06/20 17:38 Dose: Not Given Documented by: Lactated Ringer's (Ringers, Lactated) 1,000 mls @ 150 mls/hr IV ASDIRECTED [facility] Last Admin: 12/10/20 06:03 Dose: 150 mls/hr Documented by: Levetiracetam 500 mg/ Dextrose (/Water) 105 mls @ 420 mls/hr IV Q12H [facility] Last Admin: 12/10/20 09:47 Dose: 420 mls/hr Documented by: Pantoprazole Sodium 40 mg/ (Sodium Chloride) 10 mls @ 300 mls/hr IV DAILY [facility] Last Admin: 12/10/20 08:03 Dose: 300 mls/hr Documented by: Magnesium Sulfate 2 gm/ Premix 50 mls @ 12.5 mls/hr IV ONETIME ONE Stop: 12/10/20 14:38 Last Admin: 12/10/20 11:08 Dose: 12.5 mls/hr Documented by: Insulin Aspart (Insulin Aspart 100 Units/Ml 3 Ml Pen) 0 unit SUBCUT TIDAC [facility]; Protocol Last Admin: 12/10/20 17:45 Dose: Not Given Documented by: Insulin Detemir (Insulin Detemir 100 Units/Ml 3 Ml Pen) 12 unit SUBCUT BEDTIME [facility] Insulin Detemir (Insulin Detemir 100 Units/Ml 3 Ml Pen) 12 unit SUBCUT BEDTIME [facility] Last Admin: 12/08/20 21:00 Dose: 12 units Documented by: Insulin Detemir (Insulin Detemir 100 Units/Ml 3 Ml Pen) 12 unit SUBCUT ONETIME ONE Stop: 12/06/20 23:01 Last Admin: 12/06/20 23:26 Dose: 12 units Documented by: Insulin Detemir (Insulin Detemir 100 Units/Ml 3 Ml Pen) 15 unit SUBCUT BEDTIME [facility] Last Admin: 12/09/20 20:25 Dose: 15 units Documented by: Insulin Detemir (Insulin Detemir 100 Units/Ml 3 Ml Pen) 12 unit SUBCUT ONETIME ONE Stop: 12/10/20 11:46 Last Admin: 12/10/20 11:45 Dose: 12 unit Documented by: Insulin Detemir (Insulin Detemir 100 Units/Ml 10 Ml Vial) 12 unit SUBCUT BIDAC [facility] Last Admin: 12/10/20 17:43 Dose: Not Given Documented by: Insulin Human Regular (Insulin Regular, Human 100 Units/Ml 10 Ml Vial) 5 unit SUBCUT ONETIME ONE; Protocol Stop: 12/06/20 16:24 Last Admin: 12/06/20 17:05 Dose: 5 units Documented by: Levetiracetam (Levetiracetam 500 Mg Tab) 500 mg PO BID [facility] Levothyroxine Sodium (Levothyroxine 112 Mcg Tab) 112 mcg PO ACBREAKFAST [facility] Last Admin: 12/10/20 08:01 Dose: 112 mcg Documented by: Levothyroxine Sodium (Levothyroxine 25 Mcg Tab) 25 mcg PO ACBRK [facility] Last Admin: 12/10/20 08:01 Dose: 25 mcg Documented by: Lorazepam (Lorazepam 1 Mg Tab) 1 mg PO TID [facility] Last Admin: 12/10/20 13:09 Dose: 1 mg Documented by: Morphine Sulfate (Morphine 2 Mg/Ml Syringe) 2 mg IVPUSH ONETIME ONE Stop: 12/06/20 16:24 Last Admin: 12/06/20 17:04 Dose: 2 mg Documented by: Morphine Sulfate (Morphine 15 Mg Tab) 15 mg PO Q4H PRN PRN Reason: Pain Last Admin: 12/10/20 04:35 Dose: 15 mg Documented by: Non-Formulary Medication (Rosuvastatin) 5 mg PO BEDTIME [facility] Ondansetron HCl (Ondansetron 4 Mg/2 Ml Sdv) 4 mg IVPUSH ONETIME ONE Stop: 12/06/20 15:40 Last Admin: 12/06/20 15:47 Dose: 4 mg Documented by: Ondansetron HCl (Ondansetron 4 Mg Tab.Dis) 4 mg PO Q4H PRN PRN Reason: nausea, able to take PO Last Admin: 12/10/20 08:55 Dose: 4 mg Documented by: Potassium Chloride (Potassium Chloride 20 Meq Tab.Er) 40 meq PO ONETIME ONE Stop: 12/10/20 10:40 Last Admin: 12/10/20 11:06 Dose: 40 meq Documented by: Promethazine HCl (Promethazine 25 Mg/Ml Sdv) 12.5 mg IM Q6H PRN PRN Reason: Nausea Last Admin: 12/08/20 10:46 Dose: 12.5 mg Documented by: Rosuvastatin Calcium (Rosuvastatin 10 Mg Tab) 5 mg PO BEDTIME [facility] Last Admin: 12/09/20 20:25 Dose: 5 mg Documented by: Rosuvastatin Calcium (Rosuvastatin 10 Mg Tab) 5 mg PO ONETIME ONE Stop: 12/06/20 23:01 Last Admin: 12/06/20 23:25 Dose: 5 mg Documented by: Sodium Chloride (Sodium Chloride 0.9% 10 Ml Syringe) 10 ml FLUSH ASDIRECTED PRN PRN Reason: Keep Vein Open Last Admin: 12/06/20 15:50 Dose: 10 ml Documented by: Sodium Chloride (Sodium Chloride 0.9% 2.5 Ml Syringe) 2.5 ml FLUSH ASDIRECTED PRN PRN Reason: Keep Vein Open Last Admin: 12/07/20 10:14 Dose: 2.5 ml Documented by: Sodium Phosphate (Phosphorus #1 250 Mg Tab) 250 mg PO QID [facility] Last Admin: 12/10/20 12:07 Dose: Not Given Documented by: Tizanidine HCl (Tizanidine 4 Mg Tab) 4 mg PO BID [facility] Tizanidine HCl (Tizanidine 4 Mg Tab) 4 mg PO BID [facility] Last Admin: 12/10/20 08:03 Dose: 4 mg Documented by: Tizanidine HCl (Tizanidine 4 Mg Tab) 4 mg PO ONETIME ONE Stop: 12/06/20 23:01 Last Admin: 12/06/20 23:23 Dose: 4 mg Documented by: - Patient Data Result Diagrams: 12/10/20 05:30 12/10/20 05:30 - Plan Plan:: I have seen and evaluated the patient and agree with the residents note unless specified in my note
[2020-12-09] MEDS: Pantoprazole 40 MG in Sodium Chloride 0.9% 10 ML IV SCH (09:51)
[2020-12-09] MEDS: Morphine 15 MG Tab PO PRN ×2 (16:15→20:24)
[2020-12-09] MEDS: Rosuvastatin 10 MG Tab PO SCH (20:25)
[2020-12-09] MEDS ORDERED: Insulin Detemir 100 Units/ML 3 ML Pen SUBCUT SCH (21:00)
[2020-12-10] MEDS: Insulin Aspart 100 Units/ML 3 ML Pen SUBCUT SCH ×4 (00:06→17:45)
[2020-12-10] MEDS: Lactated Ringers 1,000 ML IV SCH ×2 (00:31→06:03)
[2020-12-10] MEDS: Morphine 15 MG Tab PO PRN ×2 (00:31→04:35)
[2020-12-10] MEDS: LORazepam 1 MG Tab PO SCH ×2 (06:03→13:09)
[2020-12-10 06:26] LABS: BLOOD UREA NITROGEN,BUN 6 mg/dL (7.0-18.0); CARBON DIOXIDE,CO2 18.1 mmol/L (21.0-32.0); CHLORIDE,CL 105 mmol/L (98-107); GLUCOSE RANDOM 141 mg/dL (74-106); POTASSIUM,K 3.1 mmol/L (3.5-5.1); SODIUM,NA 141 mmol/L (136-145)
[2020-12-10] MEDS: Levothyroxine 25 MCG Tab PO SCH (08:01)
[2020-12-10] MEDS: Levothyroxine 112 MCG Tab PO SCH (08:01)
[2020-12-10] MEDS: FLUoxetine 20 MG Cap PO SCH (08:02)
[2020-12-10] MEDS: tiZANidine 4 MG Tab PO SCH (08:03)
[2020-12-10] MEDS: Pantoprazole 40 MG in Sodium Chloride 0.9% 10 ML IV SCH (08:03)
[2020-12-10] MEDS: Ondansetron 4 MG Tab.DIS PO PRN (08:55)
[2020-12-10] MEDS ORDERED: Magnesium Sulfate/Water 2 GM in Premix Bag 1 BAG IV ONE (10:39)
[2020-12-10] MEDS ORDERED: Potassium Chloride 20 MEQ Tab.ER PO ONE (10:39)
[2020-12-10] MEDS: Phosphorus #1 250 MG Tab PO SCH ×2 (11:07→12:07)
[2020-12-10] MEDS ORDERED: Insulin Detemir 100 Units/ML 3 ML Pen SUBCUT ONE ×2 (11:45)
[2020-12-10] MEDS ORDERED: 50% Dextrose in Water 50 ML Syringe IVPUSH PRN (14:22)
[2020-12-10] MEDS ORDERED: Glucagon,Human Recombinant 1 MG Vial IM PRN (14:22)
[2020-12-10 15:28] VITALS: BP 94/59; PULSE 74
--- NOTE | 2020-12-10 15:58 | PCM.DCSUM1 ---
<Chandni Weaver - Last Filed: 12/12/20 15:28> Discharge Summary - Hospital Course HPI Initial Comments: Patient is a 30-year-old female who presents to the emergency room with complaints of nausea, vomiting, diarrhea and unable to take her medications which since has resulted in a seizure. Patient has been seen twice before this week for hyperglycemia, nausea, vomiting, diarrhea and was discharged to home after receiving Zofran and fluids. She was discharged early this morning and states she did feel somewhat better. Today while laying in bed she had a seizure (according to her sister who witnessed the event). She states she has not been able to take her home medications due to her symptoms. She is requesting to be admitted as she "cannot keep anything down". Past medical history of GI bleed, hepatitis, seizures, type 1 diabetes, hypothyroidism, reoccurring UTI, anxiety/depression and anemia. Patient denies any fever, chills, headache, change in vision, syncope or near syncope. Denies any chest pain, back pain, shortness of breath or cough. Denies any abdominal pain, constipation or dysuria. Has not noted any blood in urine or stool. She has no concern for . Patient has been eating and drinking appropriately. Brief History: Was admitted for hypoglycemia, abdominal pain secondary to significant gastroparesis and possible seizure. Pain was appropriately controlled, tried to obtain appropriate glucose control and ensure patient was given IV medications that she was not able to tolerate p.o. Advance patient to start accordingly. Was discharged with significant reduction in pain, stabilization and ability to tolerate p.o. intake. Diagnosis: Stroke: No - Discharge Data Discharge Date: 12/12/20 Discharge Disposition: Admitted As Inpatient 65 Condition: Good - Referral to Home Health Primary Care Physician: Maynor Black MD - Discharge Diagnosis/Problem(s) (1) Seizure disorder SNOMED Code(s): 864977457 ICD Code: G40.909 - EPILEPSY, UNSP, NOT INTRACTABLE, WITHOUT STATUS EPILEP TICUS Status: Acute (2) Intractable vomiting with nausea SNOMED Code(s): 966559652 ICD Code: R11.2 - NAUSEA WITH VOMITING, UNSPECIFIED Status: Acute (3) Hyperglycemia due to type 1 diabetes mellitus SNOMED Code(s): 235601089547819, 501842162616087 ICD Code: E10.65 - TYPE 1 DIABETES MELLITUS WITH HYPERGLYCEMIA Status: Chronic Priority: High Problem Details: 3 emergency room visits within a 24- hour period (4) Abdominal pain SNOMED Code(s): 51584488 ICD Code: R10.9 - UNSPECIFIED ABDOMINAL PAIN Status: Acute Qualifiers: Abdominal location: unspecified location Qualified Code(s): R10.9 - Unspecified abdominal pain (5) Anxiety SNOMED Code(s): 00201642 ICD Code: F41.9 - ANXIETY DISORDER, UNSPECIFIED Status: Acute (6) DKA, type 1 SNOMED Code(s): 95659232, 64011380 ICD Code: E10.10 - TYPE 1 DIABETES MELLITUS WITH KETOACIDOSIS WITHOUT COMA Status: Acute Qualifiers: Diabetes mellitus complication detail: without coma Qualified Code(s): E10.10 - Type 1 diabetes mellitus with ketoacidosis without coma - Patient Summary/Data Consults: Consultations 12/06/20 19:57 Consult to Diabetic Nurse Specialist [CONS] Routine - Patient Instructions Diet: Usual Diet as Tolerated, Diabetic Diet Diet, Other: Patient encouraged to follow a gastroparesis diet which she is aware of Activity: As Tolerated Showering/Bathing: May Shower Notify Provider of: Fever, Increased Pain, Nausea and/or Vomiting Other/Special Instructions: Please return to the hospital in the event your symptoms worsen or resume, you are feeling nauseous, vomiting, have diarrhea, inability to tolerate oral intake. - Discharge Plan *PRESCRIPTION DRUG MONITORING PROGRAM REVIEWED*: Yes *COPY OF PRESCRIPTION DRUG MONITORING REPORT IN PATIENT DEWEY: Not Applicable Prescriptions/Med Rec: Ondansetron [Zofran ODT] 4 mg PO Q4H PRN 5 Days #20 tab.dis PRN Reason: nausea, able to take PO Home Medications: Home Meds FLUoxetine HCl [Fluoxetine HCl] 40 mg PO DAILY 01/27/19 [History] LORazepam 1 mg PO TID 01/27/19 [History] Levothyroxine [Levothroid] 137 mcg PO ACBREAKFAST 01/27/19 [History] Morphine 15 mg PO Q4H PRN 01/27/19 [History] Rosuvastatin [Crestor] 5 mg PO BEDTIME 01/27/19 [History] levETIRAcetam [Keppra] 500 mg PO BID 01/27/19 [History] tiZANidine [Zanaflex] 4 mg PO BID 01/27/19 [History] Insuln Asp Prot/Insulin Aspart [NovoLOG Mix 70-30] 5 unit SQ WITHMEALSANDBED 03/31/19 [History] Insulin Aspart [NovoLOG] 5 unit SQ TIDMEALS 12/06/20 [History] Ondansetron [Zofran ODT] 8 mg PO Q6H PRN #24 tab.dis 12/06/20 [Rx] Insulin Detemir [Levemir] 12 units SQ BEDTIME 12/07/20 [History] Morphine [MS Contin] 15 mg PO Q12H 12/08/20 [History] Morphine [MS Contin] 60 mg PO Q12H 12/08/20 [History] Ondansetron [Zofran ODT] 4 mg PO Q4H PRN 5 Days #20 tab.dis 12/10/20 [Rx] Oxygen Therapy Mode: Room Air Patient Handouts: Ondansetron tablets, Hyperglycemia, [id number] Referrals: Mayonr Black MD [Primary Care Provider] - 12/20/20 10:30 am - Discharge Summary/Plan Comment DC Time >30 min.: No Discharge Summary/Plan Comment: Patient is to closely follow-up with PCP, diabetes education as an outpatient. Please return to the hospital in the event you develop significant abdominal pain, and inability to tolerate oral foods and medication or you experience any seizure-like activity. - Patient Data Vitals - Most Recent: Last Vital Signs Temp 96.8 F L 12/10/20 15:27 Pulse 74 12/10/20 15:27 Resp 20 12/10/20 15:27 BP 94/59 L 12/10/20 15:27 Pulse Ox 97 12/10/20 15:27 Weight - Most Recent: 74.435 kg I&O - Last 24 hours: Intake & Output 12/10/20 12/10/20 12/10/20 06:59 14:59 22:59 Intake Total 2626 Output Total 2900 Balance -274 Lab Results - Last 24 hrs: Laboratory Results - last 24 hr 12/09/20 12/09/20 12/10/20 Range/Units 16:19 20:19 00:05 WBC (4.0-11.0) K/uL RBC (4.30-5.90) M/uL Hgb (12.0-16.0) g/dL Hct (36.0-46.0) % MCV (80.0-98.0) fL MCH (27.0-32.0) pg MCHC (31.0-37.0) g/dL RDW Std Deviation (28.0-62.0) fl RDW Coeff of Zak (11.0-15.0) % Plt Count (150-400) K/uL MPV (7.40-12.00) fL Neut % (Auto) (48.0-80.0) % Lymph % (Auto) (16.0-40.0) % [place] % (Auto) (0.0-15.0) % Eos % (Auto) (0.0-7.0) % Baso % (Auto) (0.0-1.5) % Neut # (Auto) (1.4-5.7) K/uL Lymph # (Auto) (0.6-2.4) K/uL [place] # (Auto) (0.0-0.8) K/uL Eos # (Auto) (0.0-0.7) K/uL Baso # (Auto) (0.0-0.1) K/uL Nucleated RBC % /100WBC Nucleated RBCs # K/uL Sodium (136-145) mmol/L Potassium (3.5-5.1) mmol/L Chloride (98-107) mmol/L Carbon Dioxide (21.0-32.0) mmol/L BUN (7.0-18.0) mg/dL Creatinine (0.6-1.0) mg/dL Est Cr Clr Drug Dosing mL/min Estimated GFR (MDRD) ml/min Glucose (74-106) mg/dL POC Glucose 174 H 380 H 264 H (70-99) mg/dL Calcium (8.5-10.1) mg/dL Phosphorus (2.6-4.7) mg/dL Magnesium (1.8-2.4) mg/dL Total Bilirubin (0.2-1.0) mg/dL AST (15-37) IU/L ALT (14-63) IU/L Alkaline Phosphatase (46-116) U/L Total Protein (6.4-8.2) g/dL Albumin (3.4-5.0) g/dL Globulin (2.6-4.0) g/dL Albumin/Globulin Ratio (0.9-1.6) 12/10/20 12/10/20 12/10/20 Range/Units 05:30 05:30 07:16 WBC 8.23 (4.0-11.0) K/uL RBC 4.57 (4.30-5.90) M/uL Hgb 13.2 (12.0-16.0) g/dL Hct 39.9 (36.0-46.0) % MCV 87.3 (80.0-98.0) fL MCH 28.9 (27.0-32.0) pg MCHC 33.1 (31.0-37.0) g/dL RDW Std Deviation 41.2 (28.0-62.0) fl RDW Coeff of Zak 13 (11.0-15.0) % Plt Count 294 (150-400) K/uL MPV 10.30 (7.40-12.00) fL Neut % (Auto) 49.5 (48.0-80.0) % Lymph % (Auto) 41.8 H (16.0-40.0) % [place] % (Auto) 6.1 (0.0-15.0) % Eos % (Auto) 2.4 (0.0-7.0) % Baso % (Auto) 0.2 (0.0-1.5) % Neut # (Auto) 4.1 (1.4-5.7) K/uL Lymph # (Auto) 3.4 H (0.6-2.4) K/uL [place] # (Auto) 0.5 (0.0-0.8) K/uL Eos # (Auto) 0.2 (0.0-0.7) K/uL Baso # (Auto) 0.0 (0.0-0.1) K/uL Nucleated RBC % 0.0 /100WBC Nucleated RBCs # 0 K/uL Sodium 141 (136-145) mmol/L Potassium 3.1 L (3.5-5.1) mmol/L Chloride 105 (98-107) mmol/L Carbon Dioxide 18.1 L (21.0-32.0) mmol/L BUN 6 L (7.0-18.0) mg/dL Creatinine 0.7 (0.6-1.0) mg/dL Est Cr Clr Drug Dosing 83.64 mL/min Estimated GFR (MDRD) > 60.0 ml/min Glucose 141 H (74-106) mg/dL POC Glucose 119 H (70-99) mg/dL Calcium 8.2 L (8.5-10.1) mg/dL Phosphorus 2.4 L (2.6-4.7) mg/dL Magnesium 1.6 L (1.8-2.4) mg/dL Total Bilirubin 0.5 (0.2-1.0) mg/dL AST 39 H (15-37) IU/L ALT 42 (14-63) IU/L Alkaline Phosphatase 132 H (46-116) U/L Total Protein 6.2 L (6.4-8.2) g/dL Albumin 2.8 L (3.4-5.0) g/dL Globulin 3.4 (2.6-4.0) g/dL Albumin/Globulin Ratio 0.8 L (0.9-1.6) Med Orders - Current: Current Medications Dextrose/Water (50% Dextrose In Water 50 Ml Syringe) 50 ml IVPUSH ASDIRECTED PRN PRN Reason: Hypoglycemia Dextrose/Water (50% Dextrose In Water 50 Ml Syringe) 50 ml IVPUSH ASDIRECTED PRN PRN Reason: Hypoglycemia Fluoxetine HCl (Fluoxetine 20 Mg Cap) 40 mg PO DAILY [facility] Last Admin: 12/10/20 08:02 Dose: 40 mg Documented by: Glucagon (Glucagon,Human Recombinant 1 Mg Vial) 1 mg IM ASDIRECTED PRN PRN Reason: Hypoglycemia Glucagon (Glucagon,Human Recombinant 1 Mg Vial) 1 mg IM ASDIRECTED PRN PRN Reason: Hypoglycemia Levetiracetam 500 mg/ Dextrose (/Water) 105 mls @ 420 mls/hr IV Q12H [facility] Last Admin: 12/10/20 09:47 Dose: 420 mls/hr Documented by: Pantoprazole Sodium 40 mg/ (Sodium Chloride) 10 mls @ 300 mls/hr IV DAILY [facility] Last Admin: 12/10/20 08:03 Dose: 300 mls/hr Documented by: Insulin Aspart (Insulin Aspart 100 Units/Ml 3 Ml Pen) 0 unit SUBCUT TIDAC [facility]; Protocol Last Admin: 12/10/20 12:05 Dose: Not Given Documented by: Insulin Detemir (Insulin Detemir 100 Units/Ml 10 Ml Vial) 12 unit SUBCUT BIDAC [facility] Levothyroxine Sodium (Levothyroxine 112 Mcg Tab) 112 mcg PO ACBREAKFAST [facility] Last Admin: 12/10/20 08:01 Dose: 112 mcg Documented by: Levothyroxine Sodium (Levothyroxine 25 Mcg Tab) 25 mcg PO ACBRK [facility] Last Admin: 12/10/20 08:01 Dose: 25 mcg Documented by: Lorazepam (Lorazepam 1 Mg Tab) 1 mg PO TID [facility] Last Admin: 12/10/20 13:09 Dose: 1 mg Documented by: Morphine Sulfate (Morphine 15 Mg Tab) 15 mg PO Q4H PRN PRN Reason: Pain Last Admin: 12/10/20 04:35 Dose: 15 mg Documented by: Ondansetron HCl (Ondansetron 4 Mg Tab.Dis) 4 mg PO Q4H PRN PRN Reason: nausea, able to take PO Last Admin: 12/10/20 08:55 Dose: 4 mg Documented by: Promethazine HCl (Promethazine 25 Mg/Ml Sdv) 12.5 mg IM Q6H PRN PRN Reason: Nausea Last Admin: 12/08/20 10:46 Dose: 12.5 mg Documented by: Rosuvastatin Calcium (Rosuvastatin 10 Mg Tab) 5 mg PO BEDTIME [facility] Last Admin: 12/09/20 20:25 Dose: 5 mg Documented by: Sodium Chloride (Sodium Chloride 0.9% 10 Ml Syringe) 10 ml FLUSH ASDIRECTED PRN PRN Reason: Keep Vein Open Last Admin: 12/06/20 15:50 Dose: 10 ml Documented by: Sodium Chloride (Sodium Chloride 0.9% 2.5 Ml Syringe) 2.5 ml FLUSH ASDIRECTED PRN PRN Reason: Keep Vein Open Last Admin: 12/07/20 10:14 Dose: 2.5 ml Documented by: Sodium Phosphate (Phosphorus #1 250 Mg Tab) 250 mg PO QID [facility] Last Admin: 12/10/20 12:07 Dose: Not Given Documented by: Tizanidine HCl (Tizanidine 4 Mg Tab) 4 mg PO BID [facility] Last Admin: 12/10/20 08:03 Dose: 4 mg Documented by: Discontinued Medications Dextrose/Water (50% Dextrose In Water 50 Ml Syringe) 50 ml IVPUSH ASDIRECTED PRN PRN Reason: Hypoglycemia Diphenhydramine HCl (Diphenhydramine 50 Mg/Ml Sdv) 25 mg IVPUSH ONETIME ONE Stop: 12/06/20 18:07 Last Admin: 12/06/20 18:41 Dose: 25 mg Documented by: Diphenhydramine HCl (Diphenhydramine 25 Mg Cap) 25 mg PO ONETIME ONE Stop: 12/06/20 23:10 Last Admin: 12/06/20 23:22 Dose: 25 mg Documented by: Diphenhydramine HCl (Diphenhydramine 25 Mg Cap) 25 mg PO ONETIME ONE Stop: 12/07/20 18:32 Last Admin: 12/07/20 18:42 Dose: 25 mg Documented by: Fluoxetine HCl (Fluoxetine 20 Mg Cap) 40 mg PO DAILY [facility] Glucagon (Glucagon,Human Recombinant 1 Mg Vial) 1 mg IM ASDIRECTED PRN PRN Reason: Hypoglycemia Hydromorphone HCl (Hydromorphone 2 Mg/Ml Syringe) 1 mg IVPUSH Q3H PRN PRN Reason: Pain (severe 7-10) Hydromorphone HCl (Hydromorphone 1 Mg/Ml Syringe) 1 mg IVPUSH Q3H PRN PRN Reason: Pain (severe 7-10) Stop: 12/09/20 13:00 Last Admin: 12/09/20 12:29 Dose: 1 mg Documented by: Sodium Chloride (Normal Saline) 1,000 mls @ 999 mls/hr IV STAT ONE Stop: 12/06/20 16:38 Last Admin: 12/06/20 15:47 Dose: 999 mls/hr Documented by: Sodium Chloride (Normal Saline) 1,000 mls @ 999 mls/hr IV STAT ONE Stop: 12/06/20 16:39 Last Admin: 12/06/20 17:38 Dose: Not Given Documented by: Lactated Ringer's (Ringers, Lactated) 1,000 mls @ 150 mls/hr IV ASDIRECTED [facility] Last Admin: 12/10/20 06:03 Dose: 150 mls/hr Documented by: Magnesium Sulfate 2 gm/ Premix 50 mls @ 12.5 mls/hr IV ONETIME ONE Stop: 12/10/20 14:38 Last Admin: 12/10/20 11:08 Dose: 12.5 mls/hr Documented by: Insulin Detemir (Insulin Detemir 100 Units/Ml 3 Ml Pen) 12 unit SUBCUT BEDTIME [facility] Insulin Detemir (Insulin Detemir 100 Units/Ml 3 Ml Pen) 12 unit SUBCUT BEDTIME [facility] Last Admin: 12/08/20 21:00 Dose: 12 units Documented by: Insulin Detemir (Insulin Detemir 100 Units/Ml 3 Ml Pen) 12 unit SUBCUT ONETIME ONE Stop: 12/06/20 23:01 Last Admin: 12/06/20 23:26 Dose: 12 units Documented by: Insulin Detemir (Insulin Detemir 100 Units/Ml 3 Ml Pen) 15 unit SUBCUT BEDTIME [facility] Last Admin: 12/09/20 20:25 Dose: 15 units Documented by: Insulin Detemir (Insulin Detemir 100 Units/Ml 3 Ml Pen) 12 unit SUBCUT ONETIME ONE Stop: 12/10/20 11:46 Last Admin: 12/10/20 11:45 Dose: 12 unit Documented by: Insulin Human Regular (Insulin Regular, Human 100 Units/Ml 10 Ml Vial) 5 unit SUBCUT ONETIME ONE; Protocol Stop: 12/06/20 16:24 Last Admin: 12/06/20 17:05 Dose: 5 units Documented by: Levetiracetam (Levetiracetam 500 Mg Tab) 500 mg PO BID [facility] Morphine Sulfate (Morphine 2 Mg/Ml Syringe) 2 mg IVPUSH ONETIME ONE Stop: 12/06/20 16:24 Last Admin: 12/06/20 17:04 Dose: 2 mg Documented by: Non-Formulary Medication (Rosuvastatin) 5 mg PO BEDTIME [facility] Ondansetron HCl (Ondansetron 4 Mg/2 Ml Sdv) 4 mg IVPUSH ONETIME ONE Stop: 12/06/20 15:40 Last Admin: 12/06/20 15:47 Dose: 4 mg Documented by: Potassium Chloride (Potassium Chloride 20 Meq Tab.Er) 40 meq PO ONETIME ONE Stop: 12/10/20 10:40 Last Admin: 12/10/20 11:06 Dose: 40 meq Documented by: Rosuvastatin Calcium (Rosuvastatin 10 Mg Tab) 5 mg PO ONETIME ONE Stop: 12/06/20 23:01 Last Admin: 12/06/20 23:25 Dose: 5 mg Documented by: Tizanidine HCl (Tizanidine 4 Mg Tab) 4 mg PO BID [facility] Tizanidine HCl (Tizanidine 4 Mg Tab) 4 mg PO ONETIME ONE Stop: 12/06/20 23:01 Last Admin: 12/06/20 23:23 Dose: 4 mg Documented by: <Mirella Warren - Last Filed: 12/12/20 16:16> Discharge Summary - Hospital Course HPI Initial Comments: I have seen and evaluated the patient and agree with the residents note unless specified in my note - Referral to Home Health Primary Care Physician: Maynor Black MD - Patient Summary/Data Consults: Consultations 12/06/20 19:57 Consult to Diabetic Nurse Specialist [CONS] Routine - Patient Data Vitals - Most Recent: Last Vital Signs Temp 36.0 C L 12/10/20 15:27 Pulse 74 12/10/20 15:27 Resp 20 12/10/20 15:27 BP 94/59 L 12/10/20 15:27 Pulse Ox 97 12/10/20 15:27 Med Orders - Current: Current Medications Discontinued Medications Dextrose/Water (50% Dextrose In Water 50 Ml Syringe) 50 ml IVPUSH ASDIRECTED PRN PRN Reason: Hypoglycemia Dextrose/Water (50% Dextrose In Water 50 Ml Syringe) 50 ml IVPUSH ASDIRECTED [place] N PRN Reason: Hypoglycemia Dextrose/Water (50% Dextrose In Water 50 Ml Syringe) 50 ml IVPUSH ASDIRECTED PRN PRN Reason: Hypoglycemia Diphenhydramine HCl (Diphenhydramine 50 Mg/Ml Sdv) 25 mg IVPUSH ONETIME ONE Stop: 12/06/20 18:07 Last Admin: 12/06/20 18:41 Dose: 25 mg Documented by: Diphenhydramine HCl (Diphenhydramine 25 Mg Cap) 25 mg PO ONETIME ONE Stop: 12/06/20 23:10 Last Admin: 12/06/20 23:22 Dose: 25 mg Documented by: Diphenhydramine HCl (Diphenhydramine 25 Mg Cap) 25 mg PO ONETIME ONE Stop: 12/07/20 18:32 Last Admin: 12/07/20 18:42 Dose: 25 mg Documented by: Fluoxetine HCl (Fluoxetine 20 Mg Cap) 40 mg PO DAILY [facility] Fluoxetine HCl (Fluoxetine 20 Mg Cap) 40 mg PO DAILY [facility] Last Admin: 12/10/20 08:02 Dose: 40 mg Documented by: Glucagon (Glucagon,Human Recombinant 1 Mg Vial) 1 mg IM ASDIRECTED PRN PRN Reason: Hypoglycemia Glucagon (Glucagon,Human Recombinant 1 Mg Vial) 1 mg IM ASDIRECTED PRN PRN Reason: Hypoglycemia Glucagon (Glucagon,Human Recombinant 1 Mg Vial) 1 mg IM ASDIRECTED PRN PRN Reason: Hypoglycemia Hydromorphone HCl (Hydromorphone 2 Mg/Ml Syringe) 1 mg IVPUSH Q3H PRN PRN Reason: Pain (severe 7-10) Hydromorphone HCl (Hydromorphone 1 Mg/Ml Syringe) 1 mg IVPUSH Q3H PRN PRN Reason: Pain (severe 7-10) Stop: 12/09/20 13:00 Last Admin: 12/09/20 12:29 Dose: 1 mg Documented by: Sodium Chloride (Normal Saline) 1,000 mls @ 999 mls/hr IV STAT ONE Stop: 12/06/20 16:38 Last Admin: 12/06/20 15:47 Dose: 999 mls/hr Documented by: Sodium Chloride (Normal Saline) 1,000 mls @ 999 mls/hr IV STAT ONE Stop: 12/06/20 16:39 Last Admin: 12/06/20 17:38 Dose: Not Given Documented by: Lactated Ringer's (Ringers, Lactated) 1,000 mls @ 150 mls/hr IV ASDIRECTED [facility] Last Admin: 12/10/20 06:03 Dose: 150 mls/hr Documented by: Levetiracetam 500 mg/ Dextrose (/Water) 105 mls @ 420 mls/hr IV Q12H [facility] Last Admin: 12/10/20 09:47 Dose: 420 mls/hr Documented by: Pantoprazole Sodium 40 mg/ (Sodium Chloride) 10 mls @ 300 mls/hr IV DAILY [facility] Last Admin: 12/10/20 08:03 Dose: 300 mls/hr Documented by: Magnesium Sulfate 2 gm/ Premix 50 mls @ 12.5 mls/hr IV ONETIME ONE Stop: 12/10/20 14:38 Last Admin: 12/10/20 11:08 Dose: 12.5 mls/hr Documented by: Insulin Aspart (Insulin Aspart 100 Units/Ml 3 Ml Pen) 0 unit SUBCUT TIDAC [facility]; Protocol Last Admin: 12/10/20 17:45 Dose: Not Given Documented by: Insulin Detemir (Insulin Detemir 100 Units/Ml 3 Ml Pen) 12 unit SUBCUT BEDTIME [facility] Insulin Detemir (Insulin Detemir 100 Units/Ml 3 Ml Pen) 12 unit SUBCUT BEDTIME [facility] Last Admin: 12/08/20 21:00 Dose: 12 units Documented by: Insulin Detemir (Insulin Detemir 100 Units/Ml 3 Ml Pen) 12 unit SUBCUT ONETIME ONE Stop: 12/06/20 23:01 Last Admin: 12/06/20 23:26 Dose: 12 units Documented by: Insulin Detemir (Insulin Detemir 100 Units/Ml 3 Ml Pen) 15 unit SUBCUT BEDTIME [facility] Last Admin: 12/09/20 20:25 Dose: 15 units Documented by: Insulin Detemir (Insulin Detemir 100 Units/Ml 3 Ml Pen) 12 unit SUBCUT ONETIME ONE Stop: 12/10/20 11:46 Last Admin: 12/10/20 11:45 Dose: 12 unit Documented by: Insulin Detemir (Insulin Detemir 100 Units/Ml 10 Ml Vial) 12 unit SUBCUT BIDAC [facility] Last Admin: 12/10/20 17:43 Dose: Not Given Documented by: Insulin Human Regular (Insulin Regular, Human 100 Units/Ml 10 Ml Vial) 5 unit SUBCUT ONETIME ONE; Protocol Stop: 12/06/20 16:24 Last Admin: 12/06/20 17:05 Dose: 5 units Documented by: Levetiracetam (Levetiracetam 500 Mg Tab) 500 mg PO BID [facility] Levothyroxine Sodium (Levothyroxine 112 Mcg Tab) 112 mcg PO ACBREAKFAST [facility] Last Admin: 12/10/20 08:01 Dose: 112 mcg Documented by: Levothyroxine Sodium (Levothyroxine 25 Mcg Tab) 25 mcg PO ACBRK [facility] Last Admin: 12/10/20 08:01 Dose: 25 mcg Documented by: Lorazepam (Lorazepam 1 Mg Tab) 1 mg PO TID [facility] Last Admin: 12/10/20 13:09 Dose: 1 mg Documented by: Morphine Sulfate (Morphine 2 Mg/Ml Syringe) 2 mg IVPUSH ONETIME ONE Stop: 12/06/20 16:24 Last Admin: 12/06/20 17:04 Dose: 2 mg Documented by: Morphine Sulfate (Morphine 15 Mg Tab) 15 mg PO Q4H PRN PRN Reason: Pain Last Admin: 12/10/20 04:35 Dose: 15 mg Documented by: Non-Formulary Medication (Rosuvastatin) 5 mg PO BEDTIME [facility] Ondansetron HCl (Ondansetron 4 Mg/2 Ml Sdv) 4 mg IVPUSH ONETIME ONE Stop: 12/06/20 15:40 Last Admin: 12/06/20 15:47 Dose: 4 mg Documented by: Ondansetron HCl (Ondansetron 4 Mg Tab.Dis) 4 mg PO Q4H PRN PRN Reason: nausea, able to take PO Last Admin: 12/10/20 08:55 Dose: 4 mg Documented by: Potassium Chloride (Potassium Chloride 20 Meq Tab.Er) 40 meq PO ONETIME ONE Stop: 12/10/20 10:40 Last Admin: 12/10/20 11:06 Dose: 40 meq Documented by: Promethazine HCl (Promethazine 25 Mg/Ml Sdv) 12.5 mg IM Q6H PRN PRN Reason: Nausea Last Admin: 12/08/20 10:46 Dose: 12.5 mg Documented by: Rosuvastatin Calcium (Rosuvastatin 10 Mg Tab) 5 mg PO BEDTIME [facility] Last Admin: 12/09/20 20:25 Dose: 5 mg Documented by: Rosuvastatin Calcium (Rosuvastatin 10 Mg Tab) 5 mg PO ONETIME ONE Stop: 12/06/20 23:01 Last Admin: 12/06/20 23:25 Dose: 5 mg Documented by: Sodium Chloride (Sodium Chloride 0.9% 10 Ml Syringe) 10 ml FLUSH ASDIRECTED PRN PRN Reason: Keep Vein Open Last Admin: 12/06/20 15:50 Dose: 10 ml Documented by: Sodium Chloride (Sodium Chloride 0.9% 2.5 Ml Syringe) 2.5 ml FLUSH ASDIRECTED PRN PRN Reason: Keep Vein Open Last Admin: 12/07/20 10:14 Dose: 2.5 ml Documented by: Sodium Phosphate (Phosphorus #1 250 Mg Tab) 250 mg PO QID [facility] Last Admin: 12/10/20 12:07 Dose: Not Given Documented by: Tizanidine HCl (Tizanidine 4 Mg Tab) 4 mg PO BID [facility] Tizanidine HCl (Tizanidine 4 Mg Tab) 4 mg PO BID [facility] Last Admin: 12/10/20 08:03 Dose: 4 mg Documented by: Tizanidine HCl (Tizanidine 4 Mg Tab) 4 mg PO ONETIME ONE Stop: 12/06/20 23:01 Last Admin: 12/06/20 23:23 Dose: 4 mg Documented by:
== END 2020-12-10 17:41 | disposition critical access hospital (66) | DRG 74 ==
LOC: MW.ED 15:21 → MW.MS 16:54 → OBSVTOIN 12-07 11:03 → MW.MS 12-07 13:55
PROVIDERS: ADMIT Internal Medicine; ATTEND Internal Medicine
DX: E10.43 Type 1 diabetes mellitus with diabetic autonomic (poly)neuropathy (principal); G40.909 Epilepsy, unspecified, not intractable, without status epilepticus; E10.65 Type 1 diabetes mellitus with hyperglycemia; K31.84 Gastroparesis; M54.9 Dorsalgia, unspecified; G89.29 Other chronic pain; Z20.822 Contact with and (suspected) exposure to COVID-19; F41.9 Anxiety disorder, unspecified; F32.9 Major depressive disorder, single episode, unspecified; D64.9 Anemia, unspecified; Z88.6 Allergy status to analgesic agent; Z90.49 Acquired absence of other specified parts of digestive tract; Z79.890 Hormone replacement therapy; Z79.899 Other long term (current) drug therapy; Z87.440 Personal history of urinary (tract) infections; Z88.0 Allergy status to penicillin; Z88.5 Allergy status to narcotic agent; Z88.8 Allergy status to other drugs, medicaments and biological substances
CPT/HCPCS: 36415; 71045; 71045-26; 80048; 80053; 81001; 81025; 82803; 82947; 83605; 83690; 83735; 84100; 85025; 93005; 93010; 96366; 96374; 96375; 96376; 99283; 99285-25; A9270-GY; C9113; G0378; J1170; J1200; J1815-GY; J1953; J2270; J2405; J2550; J3475; J7030; J7120; U0002

== ENCOUNTER 2021-12-15 07:15 | Day surgery (SDC) | payer MEDICAID ==
[~2021-12-15 07:15] MED LIST: Lactated Ringers 1,000 ML IV SCH; Sodium Chloride 0.9% 10 ML Syringe FLUSH PRN; Sodium Chloride 0.9% 2.5 ML Syringe FLUSH PRN; Sodium Chloride 0.9% 20 ML SDV IV PRN
[2021-12-15] MEDS ORDERED: Propofol 200 MG/20 ML SDV ONE (07:16)
[2021-12-15] MEDS ORDERED: Ondansetron 4 MG/2 ML SDV ONE (07:16)
[2021-12-15] MEDS ORDERED: Midazolam 1 MG/ML 2 ML SDV ONE (07:16)
[2021-12-15] MEDS ORDERED: Lidocaine 2% 5 ML SDV ONE (07:17)
[2021-12-15] MEDS ORDERED: fentaNYL 100 MCG/2 ML SDV ONE (07:17)
[2021-12-15] MEDS ORDERED: Glycopyrrolate 0.2 MG/ML SDV ONE (07:19)
[2021-12-15] MEDS ORDERED: Rocuronium 100 MG/10 ML MDV ONE (09:06)
[2021-12-15] MEDS ORDERED: cefOXitin 1 GM Vial ONE (09:56)
[2021-12-15] MEDS ORDERED: Dexamethasone 4 MG/ML 5 ML MDV ONE (10:20)
[2021-12-15] MEDS ORDERED: Sugammadex Sodium 200 MG/2 ML VIAL ONE (10:21)
[2021-12-15 11:57] VITALS: BP 108/82; PULSE 101
== END 2021-12-15 11:22 | disposition home or self-care (01) ==
LOC: MW.SDS 07:15
PROVIDERS: ATTEND Surgery
DX: K29.50 Unspecified chronic gastritis without bleeding (principal); E10.43 Type 1 diabetes mellitus with diabetic autonomic (poly)neuropathy; K31.84 Gastroparesis; K21.9 Gastro-esophageal reflux disease without esophagitis; E03.9 Hypothyroidism, unspecified; K59.09 Other constipation; J45.909 Unspecified asthma, uncomplicated; E78.5 Hyperlipidemia, unspecified; F41.0 Panic disorder [episodic paroxysmal anxiety]; D50.9 Iron deficiency anemia, unspecified; E10.10 Type 1 diabetes mellitus with ketoacidosis without coma; F17.210 Nicotine dependence, cigarettes, uncomplicated; Z88.0 Allergy status to penicillin; Z88.6 Allergy status to analgesic agent; Z88.5 Allergy status to narcotic agent; Z88.8 Allergy status to other drugs, medicaments and biological substances; Z88.1 Allergy status to other antibiotic agents; Z79.890 Hormone replacement therapy; Z79.899 Other long term (current) drug therapy
CPT/HCPCS: 43239; 45380; 81025; 82947; J0694; J1100; J2250; J2405; J2704; J3010; J3490; 00813

== ENCOUNTER 2022-01-26 21:49 | Emergency (ER) | payer MEDICAID ==
[2022-01-27] MEDS ORDERED: Ondansetron 4 MG/2 ML SDV IVPUSH ONE ×2 (00:21→03:32)
[2022-01-27] MEDS ORDERED: HYDROmorphone 1 MG/ML Syringe IVPUSH ONE (00:21)
[2022-01-27] MEDS ORDERED: Sodium Chloride 0.9% 1,000 ML IV ONE (00:21)
[2022-01-27] MEDS ORDERED: Insulin Regular, Human 100 Units/ML 10 ML Vial IVPUSH STA (00:43)
[2022-01-27] MEDS ORDERED: 50% Dextrose in Water 50 ML Syringe IVPUSH PRN (00:43)
[2022-01-27] MEDS ORDERED: diphenhydrAMINE 50 MG/ML SDV IVPUSH ONE ×2 (01:17→03:31)
[2022-01-27 01:44] LABS: CARBON DIOXIDE,CO2 22.1 mmol/L (21.0-32.0); POTASSIUM,K 3.9 mmol/L (3.5-5.1)
[2022-01-27] MEDS ORDERED: HYDROmorphone 2 MG/ML Syringe IVPUSH STA (02:17)
[2022-01-27] MEDS ORDERED: Lactated Ringers 1,000 ML IV ONE (02:55)
[2022-01-27] MEDS ORDERED: Dicyclomine 10 MG Cap PO ONE (04:17)
[2022-01-27 06:01] VITALS: BP 99/60; PULSE 101
== END 2022-01-27 05:59 | disposition home or self-care (01) ==
LOC: MW.ED 21:49
DX: E10.65 Type 1 diabetes mellitus with hyperglycemia (principal); E86.0 Dehydration; R10.84 Generalized abdominal pain; E03.9 Hypothyroidism, unspecified; E66.9 Obesity, unspecified; Z68.36 Body mass index [BMI] 36.0-36.9, adult; Z88.6 Allergy status to analgesic agent; Z88.0 Allergy status to penicillin; Z88.1 Allergy status to other antibiotic agents; Z88.5 Allergy status to narcotic agent; Z88.8 Allergy status to other drugs, medicaments and biological substances; Z79.899 Other long term (current) drug therapy; Z79.4 Long term (current) use of insulin; Z90.49 Acquired absence of other specified parts of digestive tract
CPT/HCPCS: 36415; 74176; 80048; 80053; 81001; 82009; 82803; 84703; 85025; 93005; 96361; 96374; 96375; 96376; 99284; A9270; J1170; J1200; J1953; J2405; J7030; J7120; J1815-GY

== ENCOUNTER 2022-01-27 14:04 | Emergency (ER) | payer MEDICAID ==
[2022-01-27] MEDS ORDERED: Sodium Chloride 0.9% 1,000 ML IV ONE (14:07)
[2022-01-27] MEDS ORDERED: Ondansetron 4 MG/2 ML SDV IVPUSH ONE (15:46)
[2022-01-27 16:29] LABS: CARBON DIOXIDE,CO2 23.9 mmol/L (21.0-32.0); POTASSIUM,K 3.7 mmol/L (3.5-5.1)
[2022-01-27 17:20] VITALS: BP 119/74; PULSE 96
== END 2022-01-27 17:20 | disposition home or self-care (01) ==
LOC: MW.ED 14:04
DX: E86.0 Dehydration (principal); E10.65 Type 1 diabetes mellitus with hyperglycemia; E03.9 Hypothyroidism, unspecified; E66.9 Obesity, unspecified; Z68.34 Body mass index [BMI] 34.0-34.9, adult; Z88.6 Allergy status to analgesic agent; Z88.0 Allergy status to penicillin; Z88.1 Allergy status to other antibiotic agents; Z88.5 Allergy status to narcotic agent; Z88.8 Allergy status to other drugs, medicaments and biological substances; Z79.899 Other long term (current) drug therapy; Z79.4 Long term (current) use of insulin; Z90.49 Acquired absence of other specified parts of digestive tract; Z20.822 Contact with and (suspected) exposure to COVID-19
CPT/HCPCS: 36415; 36600; 80053; 81003; 82009; 82550; 82803; 82947; 83605; 83735; 84439; 84443; 85025; 85610; 87635; 96361; 96365; 96375; 99284; J1953; J2405; J7030; U0002

== ENCOUNTER 2022-01-27 18:54 | Emergency (ER) | payer MEDICAID ==
[2022-01-27 20:16] VITALS: BP 120/66; PULSE 112
== END 2022-01-27 20:24 | disposition left against medical advice (07) ==
LOC: MW.ED 18:54
DX: Z76.5 Malingerer [conscious simulation] (principal); E10.9 Type 1 diabetes mellitus without complications; E66.9 Obesity, unspecified; Z68.23 Body mass index [BMI] 23.0-23.9, adult; Z88.6 Allergy status to analgesic agent; Z88.0 Allergy status to penicillin; Z88.1 Allergy status to other antibiotic agents; Z88.5 Allergy status to narcotic agent; Z88.8 Allergy status to other drugs, medicaments and biological substances; Z79.899 Other long term (current) drug therapy; Z79.4 Long term (current) use of insulin; Z90.49 Acquired absence of other specified parts of digestive tract
CPT/HCPCS: 99283

== ENCOUNTER 2022-01-27 22:48 | Emergency (ER) | payer MEDICAID ==
[2022-01-27] MEDS ORDERED: Prochlorperazine 10 MG/2 ML SDV IM ONE (23:22)
[2022-01-27] MEDS ORDERED: cloNIDine 0.1 MG Tab PO ONE (23:23)
[2022-01-27] MEDS ORDERED: diphenhydrAMINE 50 MG Cap PO ONE (23:43)
[2022-01-28 00:04] VITALS: BP 123/85; PULSE 92
== END 2022-01-28 00:04 | disposition home or self-care (01) ==
LOC: MW.ED 22:48
DX: G89.4 Chronic pain syndrome (principal); R11.2 Nausea with vomiting, unspecified; E03.9 Hypothyroidism, unspecified; E10.9 Type 1 diabetes mellitus without complications; E66.9 Obesity, unspecified; Z88.0 Allergy status to penicillin; Z88.8 Allergy status to other drugs, medicaments and biological substances; Z88.6 Allergy status to analgesic agent; Z88.5 Allergy status to narcotic agent; Z79.899 Other long term (current) drug therapy; Z68.23 Body mass index [BMI] 23.0-23.9, adult
CPT/HCPCS: 96372; 99284; A9270; J0780; 99283

== ENCOUNTER 2022-01-31 23:19 | Emergency (ER) | payer MEDICAID ==
[2022-01-31 23:25] VITALS: BP 114/78; PULSE 94
[2022-01-31] MEDS ORDERED: diphenhydrAMINE 50 MG Cap PO ONE (23:47)
[2022-01-31] MEDS ORDERED: Ondansetron 4 MG Tab.DIS PO ONE (23:47)
[2022-02-01 00:41] LABS: CARBON DIOXIDE,CO2 22.3 mmol/L (21.0-32.0); POTASSIUM,K 3.9 mmol/L (3.5-5.1)
== END 2022-02-01 00:10 | disposition left against medical advice (07) ==
LOC: MW.ED 23:19
DX: R56.9 Unspecified convulsions (principal); E10.9 Type 1 diabetes mellitus without complications; E03.9 Hypothyroidism, unspecified; E66.9 Obesity, unspecified; Z68.28 Body mass index [BMI] 28.0-28.9, adult; Z88.6 Allergy status to analgesic agent; Z88.1 Allergy status to other antibiotic agents; Z88.5 Allergy status to narcotic agent; Z88.8 Allergy status to other drugs, medicaments and biological substances; Z79.899 Other long term (current) drug therapy
CPT/HCPCS: 36415; 80053; 85025; 99284; A9270

== ENCOUNTER 2022-02-01 03:55 | Emergency (ER) | payer MEDICAID ==
[2022-02-01 04:06] VITALS: BP 145/85; PULSE 92
== END 2022-02-01 04:20 | disposition left against medical advice (07) ==
LOC: MW.ED 03:55
DX: Z53.21 Procedure and treatment not carried out due to patient leaving prior to being seen by health care provider (principal)

== ENCOUNTER 2022-02-04 03:20 | Inpatient (IN) | payer MEDICAID ==
[2022-02-04] MEDS ORDERED: Sodium Chloride 0.9% 1,000 ML IV ONE ×4 (04:05→05:44)
[2022-02-04] MEDS ORDERED: Ondansetron 4 MG/2 ML SDV IVPUSH ONE (04:05)
[2022-02-04] MEDS ORDERED: HYDROmorphone 1 MG/ML Syringe IVPUSH ONE (04:10)
[2022-02-04 04:32] LABS: BLOOD UREA NITROGEN,BUN 37 mg/dL (7.0-18.0); CHLORIDE,CL 91 mmol/L (98-107); LIPASE 19 U/L (73-393); POTASSIUM,K 6.1 mmol/L (3.5-5.1); SODIUM,NA 128 mmol/L (136-145)
[2022-02-04] MEDS ORDERED: Sodium Bicarbonate 150 MEQ in Dextrose 5% in Water 1,000 ML IV ONE ×4 (04:34→04:55)
[2022-02-04] MEDS ORDERED: Sodium Bicarbonate 8.4% 50 MEQ/50 ML Syringe IVPUSH ONE (04:34)
[2022-02-04 04:37] LABS: CARBON DIOXIDE,CO2 4.6 mmol/L (21.0-32.0); ESTIMATED GFR 27 mL/min (>60)
[2022-02-04] MEDS ORDERED: Insulin Regular in 0.9 % NACL 100 ML IV SCH (04:45)
[2022-02-04] MEDS ORDERED: Piperacillin/Tazobactam 3.375 GM in Sodium Chloride 0.9% 50 ML IV ONE (04:52)
[2022-02-04 04:57] LABS: GLUCOSE RANDOM 1034 mg/dL (74-106)
[2022-02-04 06:01] LABS: BLOOD UREA NITROGEN,BUN 32 mg/dL (7.0-18.0); CARBON DIOXIDE,CO2 5.6 mmol/L (21.0-32.0); CHLORIDE,CL 102 mmol/L (98-107); POTASSIUM,K 4.7 mmol/L (3.5-5.1); SODIUM,NA 138 mmol/L (136-145)
[2022-02-04 06:25] LABS: ESTIMATED GFR 36 mL/min (>60)
[2022-02-04 06:26] LABS: GLUCOSE RANDOM 800 mg/dL (74-106)
[2022-02-04] MEDS ORDERED: Lactated Ringers 1,000 ML IV SCH ×3 (07:45→17:45)
[2022-02-04] MEDS: Insulin Regular in 0.9 % NACL 100 ML IV SCH ×2 (08:45→11:20)
[2022-02-04] MEDS ORDERED: Potassium Chloride 20 MEQ in Premix Bag 1 BAG IV ONE ×2 (09:00→18:18)
[2022-02-04] MEDS ORDERED: Sodium Chloride 0.9% 250 ML IV ONE (09:15)
[2022-02-04 09:55] LABS: BLOOD UREA NITROGEN,BUN 23 mg/dL (7.0-18.0); CARBON DIOXIDE,CO2 11.5 mmol/L (21.0-32.0); CHLORIDE,CL 111 mmol/L (98-107); GLUCOSE RANDOM 348 mg/dL (74-106); POTASSIUM,K 2.6 mmol/L (3.5-5.1); SODIUM,NA 144 mmol/L (136-145)
[2022-02-04 09:57] LABS: ESTIMATED GFR 44 mL/min (>60)
[2022-02-04] MEDS ORDERED: Piperacillin/Tazobactam 3.375 GM in Sodium Chloride 0.9% 100 ML IV SCH (11:00)
[2022-02-04] MEDS: Potassium Chloride 100 ML IV SCH ×6 (11:51→22:30)
[2022-02-04] MEDS ORDERED: Dextrose 5%-Lact Ringers w/KCl 1,000 ML IV SCH (12:30)
[2022-02-04] MEDS ORDERED: Lactated Ringers 1,000 ML IV ONE (13:30)
[2022-02-04 14:10] LABS: BLOOD UREA NITROGEN,BUN 18 mg/dL (7.0-18.0); CARBON DIOXIDE,CO2 14.6 mmol/L (21.0-32.0); CHLORIDE,CL 114 mmol/L (98-107); GLUCOSE RANDOM 182 mg/dL (74-106); POTASSIUM,K 3.2 mmol/L (3.5-5.1); SODIUM,NA 144 mmol/L (136-145)
[2022-02-04 14:11] LABS: ESTIMATED GFR 62 mL/min (>60)
[2022-02-04] MEDS ORDERED: Potassium Phosphates 3 mMole/ML 15 ML SDV IV ONE (14:45)
[2022-02-04] MEDS ORDERED: Magnesium Sulfate (4.06 MEQ/ML) 5 GM/10 ML SDV IV ONE (14:45)
[2022-02-04] MEDS ORDERED: Potassium Chloride 100 ML IV SCH (14:45)
[2022-02-04] MEDS ORDERED: Magnesium Sulfate/Water 2 GM in Premix Bag 1 BAG IV ONE ×2 (14:57→15:00)
[2022-02-04] MEDS ORDERED: Potassium Phosphates 30 MMOLE in Sodium Chloride 0.9% 500 ML IV ONE (15:00)
[2022-02-04] MEDS: Dextrose 5%-Lactated Ringers 1,000 ML IV SCH ×2 (15:54→20:05)
[2022-02-04] MEDS ORDERED: Thiamine 500 MG in Sodium Chloride 0.9% 250 ML IV ONE (18:00)
[2022-02-04 18:07] LABS: BLOOD UREA NITROGEN,BUN 12 mg/dL (7.0-18.0); CARBON DIOXIDE,CO2 18.8 mmol/L (21.0-32.0); CHLORIDE,CL 110 mmol/L (98-107); GLUCOSE RANDOM 143 mg/dL (74-106); SODIUM,NA 142 mmol/L (136-145)
[2022-02-04 18:12] LABS: ESTIMATED GFR 56 mL/min (>60); POTASSIUM,K 2.4 mmol/L (3.5-5.1)
[2022-02-04] MEDS ORDERED: Thiamine 200 MG/2 ML MDV ONE (18:24)
[2022-02-04] MEDS ORDERED: LORazepam 1 MG Tab PO PRN (19:24)
[2022-02-04 20:58] LABS: BLOOD UREA NITROGEN,BUN 8 mg/dL (7.0-18.0); CARBON DIOXIDE,CO2 15.3 mmol/L (21.0-32.0); CHLORIDE,CL 108 mmol/L (98-107); GLUCOSE RANDOM 445 mg/dL (74-106); POTASSIUM,K 4.8 mmol/L (3.5-5.1); SODIUM,NA 138 mmol/L (136-145)
[2022-02-04 21:00] LABS: ESTIMATED GFR 100 mL/min (>60)
[2022-02-04] MEDS ORDERED: levETIRAcetam 500 MG Tab PO SCH (21:00)
[2022-02-04] MEDS ORDERED: Magnesium Sulfate (4.06 MEQ/ML) 5 GM/10 ML SDV IV STA (21:39)
[2022-02-04] MEDS ORDERED: Magnesium Sulfate/Water 50 ML IV ONE (22:00)
[2022-02-04] MEDS: HYDROmorphone 1 MG/ML Syringe IVPUSH PRN (22:02)
[2022-02-04] MEDS: Topiramate 50 MG Tab PO SCH (22:12)
[2022-02-04] MEDS: Rosuvastatin 10 MG Tab PO SCH (22:13)
[2022-02-05] MEDS: Dextrose 5%-Lactated Ringers 1,000 ML IV SCH ×4 (00:04→12:14)
[2022-02-05] MEDS: Insulin Regular in 0.9 % NACL 100 ML IV SCH (00:07)
[2022-02-05 01:51] LABS: BLOOD UREA NITROGEN,BUN 6 mg/dL (7.0-18.0); CARBON DIOXIDE,CO2 21.1 mmol/L (21.0-32.0); CHLORIDE,CL 108 mmol/L (98-107); GLUCOSE RANDOM 294 mg/dL (74-106); SODIUM,NA 140 mmol/L (136-145)
[2022-02-05 01:52] LABS: ESTIMATED GFR 87 mL/min (>60); POTASSIUM,K 2.3 mmol/L (3.5-5.1)
[2022-02-05] MEDS ORDERED: Insulin Regular in 0.9 % NACL 100 ML IV SCH (02:38)
[2022-02-05] MEDS ORDERED: Potassium Chloride 20 MEQ Tab.ER PO STA (02:40)
[2022-02-05] MEDS ORDERED: Potassium Chloride 20 MEQ in Premix Bag 1 BAG IV ONE ×3 (02:46→06:57)
[2022-02-05] MEDS: Ondansetron 4 MG/2 ML SDV IVPUSH PRN ×2 (03:32→08:05)
[2022-02-05] MEDS: HYDROmorphone 1 MG/ML Syringe IVPUSH PRN ×2 (04:04→09:24)
[2022-02-05 06:16] LABS: BLOOD UREA NITROGEN,BUN 5 mg/dL (7.0-18.0); CARBON DIOXIDE,CO2 24.5 mmol/L (21.0-32.0); CHLORIDE,CL 108 mmol/L (98-107); GLUCOSE RANDOM 216 mg/dL (74-106); POTASSIUM,K 2.7 mmol/L (3.5-5.1); SODIUM,NA 140 mmol/L (136-145)
[2022-02-05 06:29] LABS: ESTIMATED GFR 100 mL/min (>60)
[2022-02-05] MEDS ORDERED: Potassium Chloride 20 MEQ Tab.ER PO SCH (07:00)
[2022-02-05] MEDS: Levothyroxine 100 MCG Tab PO SCH (07:30)
[2022-02-05] MEDS: Levothyroxine 75 MCG Tab PO SCH (07:30)
[2022-02-05] MEDS ORDERED: Non-Formulary Medication 1 Each (Levothyroxine [Levothroid] 137 MCG Tablet) PO SCH (07:30)
[2022-02-05] MEDS: Phosphorus #1 250 MG Tab PO SCH ×3 (07:52→18:14)
[2022-02-05] MEDS: Loratadine 10 MG Tab PO SCH (08:38)
[2022-02-05] MEDS: Potassium Chloride 20 MEQ Tab.ER PO SCH ×2 (08:38→20:28)
[2022-02-05] MEDS: Topiramate 50 MG Tab PO SCH ×2 (08:39→20:28)
[2022-02-05] MEDS ORDERED: Thiamine 100 MG in Sodium Chloride 0.9% 100 ML IV SCH (09:00)
[2022-02-05] MEDS: Thiamine 200 MG/2 ML MDV IVPUSH SCH (09:26)
[2022-02-05] MEDS: Potassium Chloride 100 ML IV SCH ×2 (09:34→13:52)
[2022-02-05 10:24] LABS: BLOOD UREA NITROGEN,BUN 3 mg/dL (7.0-18.0); CARBON DIOXIDE,CO2 23.2 mmol/L (21.0-32.0); CHLORIDE,CL 108 mmol/L (98-107); GLUCOSE RANDOM 282 mg/dL (74-106); POTASSIUM,K 3.3 mmol/L (3.5-5.1); SODIUM,NA 140 mmol/L (136-145)
[2022-02-05 10:27] LABS: ESTIMATED GFR 87 mL/min (>60)
[2022-02-05] MEDS ORDERED: Potassium Chloride 20 MEQ Tab.ER PO ONE (10:52)
[2022-02-05] MEDS ORDERED: Insulin Glargine,Hum.Rec.Anlog 100 UNIT/ML 3 ML Pen SUBCUT ONE (12:23)
[2022-02-05] MEDS ORDERED: 50% Dextrose in Water 50 ML Syringe IVPUSH PRN ×2 (12:23→13:58)
[2022-02-05] MEDS ORDERED: Glucagon,Human Recombinant 1 MG Vial IM PRN ×2 (12:23→13:58)
[2022-02-05] MEDS: Insulin Aspart 100 Units/ML 3 ML Pen SUBCUT SCH ×2 (14:26→18:31)
[2022-02-05 14:48] LABS: CARBON DIOXIDE,CO2 24.5 mmol/L (21.0-32.0); POTASSIUM,K 4.3 mmol/L (3.5-5.1)
[2022-02-05] MEDS ORDERED: Sodium Phosphate 15 mMole/5 ML SDV IV STA (14:56)
[2022-02-05] MEDS ORDERED: HYDROmorphone 1 MG/ML Syringe IVPUSH ONE (15:03)
[2022-02-05] MEDS ORDERED: Sodium Phosphate 15 MMOLE in Sodium Chloride 0.9% 250 ML IV ONE (15:15)
[2022-02-05 17:32] LABS: CARBON DIOXIDE,CO2 24.9 mmol/L (21.0-32.0); POTASSIUM,K 4.5 mmol/L (3.5-5.1)
[2022-02-05] MEDS: Rosuvastatin 10 MG Tab PO SCH (20:28)
[2022-02-05] MEDS: Insulin Glargine,Hum.Rec.Anlog 100 UNIT/ML 3 ML Pen SUBCUT SCH (20:29)
[2022-02-06] MEDS: HYDROmorphone 1 MG/ML Syringe IVPUSH PRN ×2 (00:03→07:57)
[2022-02-06] MEDS: Phosphorus #1 250 MG Tab PO SCH ×3 (00:03→12:03)
[2022-02-06] MEDS: Ondansetron 4 MG/2 ML SDV IVPUSH PRN ×2 (00:03→08:03)
[2022-02-06 06:53] LABS: CARBON DIOXIDE,CO2 23.1 mmol/L (21.0-32.0)
[2022-02-06] MEDS: Insulin Aspart 100 Units/ML 3 ML Pen SUBCUT SCH ×2 (07:47→11:57)
[2022-02-06] MEDS: Thiamine 200 MG/2 ML MDV IVPUSH SCH (08:03)
[2022-02-06] MEDS: Loratadine 10 MG Tab PO SCH (08:05)
[2022-02-06] MEDS: Levothyroxine 75 MCG Tab PO SCH (08:06)
[2022-02-06] MEDS: Levothyroxine 100 MCG Tab PO SCH (08:06)
[2022-02-06] MEDS: Potassium Chloride 20 MEQ Tab.ER PO SCH (08:06)
[2022-02-06] MEDS: Topiramate 50 MG Tab PO SCH (08:23)
[2022-02-06] MEDS ORDERED: levETIRAcetam 500 MG Tab PO SCH (09:00)
[2022-02-06] MEDS: Insulin Glargine,Hum.Rec.Anlog 100 UNIT/ML 3 ML Pen SUBCUT SCH (09:08)
[2022-02-06 12:20] VITALS: BP 103/63; PULSE 86
== END 2022-02-06 14:40 | disposition home or self-care (01) | DRG 638 ==
LOC: MW.ED 03:20 → MW.ICU 06:13
PROVIDERS: ADMIT Student in an Organized Health Care Education/Training Program; ATTEND Student in an Organized Health Care Education/Training Program
DX: E10.10 Type 1 diabetes mellitus with ketoacidosis without coma (principal); N17.9 Acute kidney failure, unspecified; G40.909 Epilepsy, unspecified, not intractable, without status epilepticus; F11.90 Opioid use, unspecified, uncomplicated; Z20.822 Contact with and (suspected) exposure to COVID-19; K59.09 Other constipation; E03.9 Hypothyroidism, unspecified; E66.9 Obesity, unspecified; D64.9 Anemia, unspecified; M54.9 Dorsalgia, unspecified; G89.29 Other chronic pain; E86.0 Dehydration; Z90.49 Acquired absence of other specified parts of digestive tract; Z88.0 Allergy status to penicillin; Z88.6 Allergy status to analgesic agent; Z88.8 Allergy status to other drugs, medicaments and biological substances; Z79.899 Other long term (current) drug therapy; Z68.33 Body mass index [BMI] 33.0-33.9, adult
CPT/HCPCS: 36415; 36556; 36600; 51702; 70450; 70450-26; 71045; 71045-26; 80048; 80053; 80305-QW; 80307; 81001; 82009; 82140; 82550; 82803; 82947; 83605; 83690; 83735; 84100; 84132; 84484; 84703; 85025; 85027; 85610; 85730; 87040; 93005; 93010; 96361; 96365; 96368; 96375; 96376; 99223; 99232; 99239; 99284; 99285-25; A9270-GY; J1170; J1815; J1815-GY; J1953; J2405; J2543; J3411; J3475; J3480; J7030; J7040; J7050; J7060; J7120; J7121; U0002

== ENCOUNTER 2022-03-07 18:48 | Emergency (ER) | payer MEDICAID ==
[2022-03-07] MEDS ORDERED: Sodium Chloride 0.9% 1,000 ML IV ONE ×2 (19:07→19:08)
[2022-03-07 19:51] LABS: BLOOD UREA NITROGEN,BUN 14 mg/dL (7.0-18.0); CARBON DIOXIDE,CO2 22.3 mmol/L (21.0-32.0); CHLORIDE,CL 94 mmol/L (98-107); GLUCOSE RANDOM 469 mg/dL (74-106); LIPASE 22 U/L (73-393); POTASSIUM,K 4.2 mmol/L (3.5-5.1); SODIUM,NA 134 mmol/L (136-145)
[2022-03-07 19:52] LABS: ESTIMATED GFR 87 mL/min (>60)
[2022-03-07] MEDS ORDERED: Insulin Regular, Human 100 Units/ML 10 ML Vial IVPUSH ONE (19:55)
[2022-03-07] MEDS ORDERED: Glucagon,Human Recombinant 1 MG Vial IM PRN (19:55)
[2022-03-07] MEDS ORDERED: 50% Dextrose in Water 50 ML Syringe IVPUSH PRN (19:55)
[2022-03-07] MEDS ORDERED: NS + KCl 20mEq/L 1,000 ML IV SCH (20:00)
[2022-03-08 00:09] VITALS: BP 100/60; PULSE 85
== END 2022-03-07 22:45 | disposition home or self-care (01) ==
LOC: MW.ED 18:48
DX: E10.65 Type 1 diabetes mellitus with hyperglycemia (principal); R93.89 Abnormal findings on diagnostic imaging of other specified body structures; E78.00 Pure hypercholesterolemia, unspecified; E66.9 Obesity, unspecified; Z20.822 Contact with and (suspected) exposure to COVID-19; E03.9 Hypothyroidism, unspecified; Z88.0 Allergy status to penicillin; Z88.5 Allergy status to narcotic agent; Z79.899 Other long term (current) drug therapy
CPT/HCPCS: 36415; 70450; 71045; 80053; 80307; 82009; 82803; 82947; 83605; 83690; 83735; 84100; 84484; 84703; 85025; 86140; 87040; 87635; 93005; 96360; 96361; 99285; J3480; J7030; J1815-GY; U0002

== ENCOUNTER 2022-03-10 13:04 | Emergency (ER) | payer MEDICAID ==
[2022-03-10] MEDS ORDERED: Sodium Chloride 0.9% 1,000 ML IV ONE (13:29)
[2022-03-10] MEDS ORDERED: LORazepam 2 MG/ML SDV IVPUSH ONE (13:30)
[2022-03-10] MEDS ORDERED: Ondansetron 4 MG/2 ML SDV IVPUSH ONE (15:21)
[2022-03-10] MEDS ORDERED: Lactated Ringers 1,000 ML IV ONE (15:21)
[2022-03-10 15:56] LABS: BLOOD UREA NITROGEN,BUN 9 mg/dL (7.0-18.0); CARBON DIOXIDE,CO2 28.5 mmol/L (21.0-32.0); CHLORIDE,CL 102 mmol/L (98-107); GLUCOSE RANDOM 88 mg/dL (74-106); POTASSIUM,K 3.6 mmol/L (3.5-5.1); SODIUM,NA 138 mmol/L (136-145)
[2022-03-10 16:02] LABS: ESTIMATED GFR 118 mL/min (>60)
[2022-03-10] MEDS ORDERED: Ketorolac 30 MG/ML SDV IVPUSH ONE (16:08)
[2022-03-10 18:07] VITALS: PULSE 95
[2022-03-10] MEDS ORDERED: Magnesium Sulfate (4.06 MEQ/ML) 5 GM/10 ML SDV IV STA (18:15)
[2022-03-10] MEDS ORDERED: Topiramate 50 MG Tab PO STA (18:24)
[2022-03-10] MEDS ORDERED: levETIRAcetam Soln 500 MG/5 ML Cup PO ONE (18:24)
[2022-03-10] MEDS ORDERED: Topiramate 100 MG Tab ONE (19:23)
[2022-03-10] MEDS ORDERED: Magnesium Sulfate/Water 50 ML ONE (20:05)
[2022-03-10 21:13] VITALS: BP 127/85
== END 2022-03-10 21:17 | disposition home or self-care (01) ==
LOC: MW.ED 13:04
DX: R56.9 Unspecified convulsions (principal); E78.00 Pure hypercholesterolemia, unspecified; E10.9 Type 1 diabetes mellitus without complications; E03.9 Hypothyroidism, unspecified; E66.9 Obesity, unspecified; Z68.30 Body mass index [BMI] 30.0-30.9, adult; Z86.16 Personal history of COVID-19; Z88.0 Allergy status to penicillin; Z88.5 Allergy status to narcotic agent; Z88.8 Allergy status to other drugs, medicaments and biological substances; Z79.899 Other long term (current) drug therapy; Z79.4 Long term (current) use of insulin; Z20.822 Contact with and (suspected) exposure to COVID-19
CPT/HCPCS: 36415; 80053; 80307; 82550; 83735; 84100; 84443; 84702; 85025; 87635; 93005; 96361; 96374; 99284; A9270; J2405; J3475; J7030; J7120; U0002

== ENCOUNTER 2022-08-23 11:24 | Inpatient (IN) | payer MEDICAID ==
[2022-08-23] MEDS ORDERED: Sodium Chloride 0.9% 1,000 ML IV ONE ×2 (11:28→14:05)
[2022-08-23] MEDS ORDERED: Ondansetron 4 MG/2 ML SDV IVPUSH ONE (11:38)
[2022-08-23 12:26] VITALS: PULSE 97
[2022-08-23 13:02] LABS: POTASSIUM,K 3.7 mmol/L (3.5-5.1)
[2022-08-23 14:46] LABS: CARBON DIOXIDE,CO2 24.3 mmol/L (21.0-32.0); POTASSIUM,K 3.2 mmol/L (3.5-5.1)
[2022-08-23 14:55] LABS: CORONAVIRUS COVID-19 NAA NEGATIVE (NEGATIVE); INFLUENZA A NAA NEGATIVE (NEGATIVE); INFLUENZA B NAA NEGATIVE (NEGATIVE)
[2022-08-23] MEDS ORDERED: Ondansetron 4 MG/2 ML SDV IVPUSH PRN (15:00)
[2022-08-23] MEDS ORDERED: Sodium Chloride 0.9% 2.5 ML Syringe FLUSH PRN (15:00)
[2022-08-23] MEDS ORDERED: Sodium Chloride 0.9% 1,000 ML IV SCH (15:00)
[2022-08-23] MEDS ORDERED: Sodium Chloride 0.9% 10 ML Syringe FLUSH PRN (15:00)
[2022-08-23] MEDS: Heparin Sodium 5,000 Units/ML Vial SUBCUT SCH (15:49)
[2022-08-23] MEDS ORDERED: NS + KCl 20mEq/L 1,000 ML IV SCH (16:15)
[2022-08-23] MEDS ORDERED: Insulin Regular in 0.9 % NACL 100 ML IV SCH (16:15)
[2022-08-23 16:21] LABS: HEMOGLOBIN A1C 11.1 %
[2022-08-23] MEDS: Dextrose 5%-0.9% NaCl with KCl 1,000 ML IV SCH ×2 (16:52→23:17)
[2022-08-23] MEDS: Pantoprazole 40 MG in Sodium Chloride 0.9% 10 ML IVPUSH SCH (17:26)
[2022-08-23] MEDS: Levofloxacin 750 MG Tab PO SCH (17:26)
[2022-08-23] MEDS: Sucralfate 1 GM Tab PO SCH ×2 (17:26→20:34)
[2022-08-23] MEDS: HYDROmorphone 2 MG/ML Syringe IVPUSH PRN ×2 (17:43→23:18)
[2022-08-23] MEDS: levETIRAcetam 500 MG Tab PO SCH (20:34)
[2022-08-23 22:29] LABS: CARBON DIOXIDE,CO2 24.6 mmol/L (21.0-32.0); POTASSIUM,K 3.8 mmol/L (3.5-5.1)
[2022-08-24 01:57] LABS: CARBON DIOXIDE,CO2 23.7 mmol/L (21.0-32.0); POTASSIUM,K 3.5 mmol/L (3.5-5.1)
[2022-08-24] MEDS ORDERED: Potassium Chloride 10% 20 MEQ/15 ML Soln 30 ML UD Cup PO ONE (02:45)
[2022-08-24] MEDS ORDERED: diphenhydrAMINE 25 MG Cap PO PRN (02:46)
[2022-08-24] MEDS: Heparin Sodium 5,000 Units/ML Vial SUBCUT SCH ×2 (03:17→14:57)
[2022-08-24] MEDS: HYDROmorphone 2 MG/ML Syringe IVPUSH PRN ×2 (03:46→08:36)
[2022-08-24] MEDS: Dextrose 5%-0.9% NaCl with KCl 1,000 ML IV SCH (05:13)
[2022-08-24 06:20] LABS: CARBON DIOXIDE,CO2 22.1 mmol/L (21.0-32.0); POTASSIUM,K 4.2 mmol/L (3.5-5.1)
[2022-08-24] MEDS: levETIRAcetam 500 MG Tab PO SCH ×2 (08:20→20:08)
[2022-08-24] MEDS: Sucralfate 1 GM Tab PO SCH ×4 (08:20→20:08)
[2022-08-24] MEDS ORDERED: Sodium Phosphate 45 MMOLE in Sodium Chloride 0.9% 500 ML IV ONE (08:30)
[2022-08-24] MEDS: HYDROmorphone 2 MG Tab PO PRN ×3 (12:37→21:07)
[2022-08-24] MEDS ORDERED: Glucagon,Human Recombinant 1 MG Vial IM PRN (14:24)
[2022-08-24] MEDS ORDERED: 50% Dextrose in Water 50 ML Syringe IVPUSH PRN (14:24)
[2022-08-24] MEDS ORDERED: Insulin Glargine,Hum.Rec.Anlog 100 UNIT/ML 3 ML Pen SUBCUT ONE (14:30)
[2022-08-24] MEDS: Levofloxacin 750 MG Tab PO SCH (17:03)
[2022-08-24] MEDS: Pantoprazole 40 MG in Sodium Chloride 0.9% 10 ML IVPUSH SCH (17:03)
[2022-08-24] MEDS: Insulin Aspart 100 Units/ML 3 ML Pen SUBCUT SCH (17:21)
[2022-08-25] MEDS: HYDROmorphone 2 MG Tab PO PRN ×2 (01:52→06:56)
[2022-08-25] MEDS: Heparin Sodium 5,000 Units/ML Vial SUBCUT SCH (02:00)
[2022-08-25] MEDS: Sucralfate 1 GM Tab PO SCH ×2 (06:57→11:21)
[2022-08-25 07:35] LABS: CARBON DIOXIDE,CO2 25.2 mmol/L (21.0-32.0); POTASSIUM,K 3.6 mmol/L (3.5-5.1)
[2022-08-25 08:01] VITALS: BP 99/59
[2022-08-25] MEDS: Insulin Aspart 100 Units/ML 3 ML Pen SUBCUT SCH ×2 (08:04→11:22)
[2022-08-25] MEDS: levETIRAcetam 500 MG Tab PO SCH (08:05)
[2022-08-25] MEDS ORDERED: Magnesium Sulfate/Water 4 GM in Premix Bag 1 BAG IV ONE (08:15)
[2022-08-25] MEDS: Levofloxacin 750 MG Tab PO SCH (11:26)
== END 2022-08-25 11:40 | disposition home or self-care (01) | DRG 637 ==
LOC: MW.ED 11:24 → MW.ICU 14:39 → MW.MS 08-24 18:37
PROVIDERS: ADMIT Internal Medicine; ATTEND Internal Medicine
DX: E10.10 Type 1 diabetes mellitus with ketoacidosis without coma (principal); J18.9 Pneumonia, unspecified organism; E10.65 Type 1 diabetes mellitus with hyperglycemia; E86.0 Dehydration; F11.90 Opioid use, unspecified, uncomplicated; K31.84 Gastroparesis; G40.909 Epilepsy, unspecified, not intractable, without status epilepticus; R74.01 Elevation of levels of liver transaminase levels; Z20.822 Contact with and (suspected) exposure to COVID-19; E78.00 Pure hypercholesterolemia, unspecified; K59.09 Other constipation; M81.0 Age-related osteoporosis without current pathological fracture; D64.9 Anemia, unspecified; E83.39 Other disorders of phosphorus metabolism; E10.43 Type 1 diabetes mellitus with diabetic autonomic (poly)neuropathy; Z88.0 Allergy status to penicillin; Z79.890 Hormone replacement therapy; Z79.899 Other long term (current) drug therapy; Z86.16 Personal history of COVID-19
CPT/HCPCS: 0240U; 36415; 71045; 71045-26; 80048; 80053; 80305-QW; 81001; 82009; 82803; 82947; 83036; 83605; 83690; 83735; 84100; 84703; 85025; 87086; 96361; 96374; 99285; 99285-25; A9270-GY; C9113; J1170; J1644; J1815; J1815-GY; J2405; J3475; J3480; J3490; J7030; J7040

== ENCOUNTER 2022-09-17 02:15 | Inpatient (IN) | payer MEDICAID ==
[2022-09-17] MEDS ORDERED: Sodium Chloride 0.9% 2,000 ML IV ONE (02:37)
[2022-09-17] MEDS ORDERED: Sodium Chloride 0.9% 2.5 ML Syringe FLUSH PRN (02:37)
[2022-09-17] MEDS ORDERED: Sodium Chloride 0.9% 10 ML Syringe FLUSH PRN (02:37)
[2022-09-17 04:21] LABS: BLOOD UREA NITROGEN,BUN 22 mg/dL (7.0-18.0); CARBON DIOXIDE,CO2 13.9 mmol/L (21.0-32.0); CHLORIDE,CL 103 mmol/L (98-107); GLUCOSE RANDOM 448 mg/dL (74-106); POTASSIUM,K 4.3 mmol/L (3.5-5.1); SODIUM,NA 139 mmol/L (136-145)
[2022-09-17] MEDS ORDERED: Ondansetron 4 MG/2 ML SDV IVPUSH ONE (04:27)
[2022-09-17 04:28] LABS: ESTIMATED GFR 56 mL/min (>60)
[2022-09-17] MEDS ORDERED: Insulin Regular in 0.9 % NACL 100 ML ONE (04:59)
[2022-09-17] MEDS ORDERED: Insulin Regular in 0.9 % NACL 100 ML IV SCH ×2 (05:00→20:15)
[2022-09-17] MEDS ORDERED: Dextrose 5%-0.45% NaCl 1,000 ML IV SCH (07:30)
[2022-09-17 08:27] LABS: POTASSIUM,K 3.3 mmol/L (3.5-5.1)
[2022-09-17 08:52] LABS: CARBON DIOXIDE,CO2 20.3 mmol/L (21.0-32.0)
[2022-09-17] MEDS ORDERED: Dextrose 5% in Water 1,000 ML IV SCH (09:00)
[2022-09-17] MEDS: Potassium Chloride 40 MEQ in Dextrose 5% in Water 1,000 ML IV SCH ×4 (10:12→20:06)
[2022-09-17] MEDS: levETIRAcetam 500 MG Tab PO SCH ×2 (12:11→20:22)
[2022-09-17 13:33] LABS: CARBON DIOXIDE,CO2 20.6 mmol/L (21.0-32.0); POTASSIUM,K 4.4 mmol/L (3.5-5.1)
[2022-09-17] MEDS: LORazepam 1 MG Tab PO PRN (13:47)
[2022-09-17 17:30] LABS: CARBON DIOXIDE,CO2 21.5 mmol/L (21.0-32.0); POTASSIUM,K 3.2 mmol/L (3.5-5.1)
[2022-09-17] MEDS ORDERED: 50% Dextrose in Water 50 ML Syringe IVPUSH PRN ×2 (17:55→17:59)
[2022-09-17] MEDS ORDERED: Glucagon,Human Recombinant 1 MG Vial IM PRN ×2 (17:55→17:59)
[2022-09-17] MEDS ORDERED: POTASSIUM CHLORIDE PO ONE (17:58)
[2022-09-17] MEDS ORDERED: Potassium Chloride 20 MEQ in Premix Bag 1 BAG IV ONE (17:58)
[2022-09-17] MEDS ORDERED: Insulin Detemir 100 Units/ML 3 ML Pen SUBCUT SCH (18:00)
[2022-09-17] MEDS: Rosuvastatin 10 MG Tab PO SCH (20:22)
[2022-09-17 20:23] LABS: CARBON DIOXIDE,CO2 21.3 mmol/L (21.0-32.0); POTASSIUM,K 3.9 mmol/L (3.5-5.1)
[2022-09-17] MEDS: HYDROmorphone 2 MG Tab PO PRN (20:23)
[2022-09-17] MEDS: Patient's Own Medication [Budesonide/Formoterol 160-4.5 MCG/Puff 6 GM Inhaler] INH SCH (20:27)
[2022-09-17] MEDS ORDERED: Insulin Aspart 100 Units/ML 3 ML Pen SUBCUT SCH (21:00)
[2022-09-18] MEDS: HYDROmorphone 2 MG Tab PO PRN ×4 (00:41→20:25)
[2022-09-18 01:16] LABS: CARBON DIOXIDE,CO2 19.8 mmol/L (21.0-32.0)
[2022-09-18] MEDS: LORazepam 1 MG Tab PO PRN (02:42)
[2022-09-18 05:27] LABS: CARBON DIOXIDE,CO2 18.7 mmol/L (21.0-32.0); POTASSIUM,K 3.4 mmol/L (3.5-5.1)
[2022-09-18] MEDS ORDERED: D5 1/2 NS w/ 40 mEq/L KCl 1,000 ML IV SCH (06:30)
[2022-09-18] MEDS: Levothyroxine 150 MCG Tab PO SCH (06:32)
[2022-09-18 08:31] LABS: POTASSIUM,K 3.7 mmol/L (3.5-5.1)
[2022-09-18] MEDS: levETIRAcetam 500 MG Tab PO SCH ×2 (09:13→20:51)
[2022-09-18] MEDS: Patient's Own Medication [Budesonide/Formoterol 160-4.5 MCG/Puff 6 GM Inhaler] INH SCH ×2 (09:17→20:41)
[2022-09-18 11:44] LABS: HEMOGLOBIN A1C 10.4 %
[2022-09-18 16:07] LABS: CARBON DIOXIDE,CO2 20.6 mmol/L (21.0-32.0); POTASSIUM,K 4.1 mmol/L (3.5-5.1)
[2022-09-18] MEDS ORDERED: 50% Dextrose in Water 50 ML Syringe IVPUSH PRN (17:11)
[2022-09-18] MEDS ORDERED: Glucagon,Human Recombinant 1 MG Vial IM PRN (17:11)
[2022-09-18] MEDS: Insulin Glargine,Hum.Rec.Anlog 100 UNIT/ML 3 ML Pen SUBCUT SCH ×2 (17:31→20:45)
[2022-09-18 20:20] VITALS: PULSE 105
[2022-09-18] MEDS: Rosuvastatin 10 MG Tab PO SCH (20:51)
[2022-09-18] MEDS ORDERED: Insulin Aspart 100 Units/ML 3 ML Pen SUBCUT ONE (21:13)
[2022-09-19] MEDS ORDERED: Insulin Aspart 100 Units/ML 3 ML Pen SUBCUT ONE ×2 (03:21→21:03)
[2022-09-19] MEDS: LORazepam 1 MG Tab PO PRN ×2 (03:31→10:44)
[2022-09-19] MEDS: HYDROmorphone 2 MG Tab PO PRN (04:40)
[2022-09-19 06:52] LABS: CARBON DIOXIDE,CO2 23.5 mmol/L (21.0-32.0); POTASSIUM,K 3.9 mmol/L (3.5-5.1)
[2022-09-19] MEDS: Levothyroxine 150 MCG Tab PO SCH (07:41)
[2022-09-19] MEDS: Insulin Aspart 100 Units/ML 3 ML Pen SUBCUT SCH ×2 (07:42→12:04)
[2022-09-19] MEDS: levETIRAcetam 500 MG Tab PO SCH (09:11)
[2022-09-19] MEDS: Patient's Own Medication [Budesonide/Formoterol 160-4.5 MCG/Puff 6 GM Inhaler] INH SCH (09:12)
[2022-09-19 11:06] VITALS: BP 111/76
[2022-09-19] MEDS ORDERED: Insulin Aspart 100 Units/ML 3 ML Pen SUBCUT SCH (17:11)
== END 2022-09-19 12:50 | disposition home or self-care (01) | DRG 639 ==
LOC: MW.ED 02:15 → MW.ICU 05:02
PROVIDERS: ADMIT Internal Medicine; ATTEND Internal Medicine
DX: E10.10 Type 1 diabetes mellitus with ketoacidosis without coma (principal); E78.00 Pure hypercholesterolemia, unspecified; K59.09 Other constipation; M81.0 Age-related osteoporosis without current pathological fracture; G89.29 Other chronic pain; M54.9 Dorsalgia, unspecified; G43.909 Migraine, unspecified, not intractable, without status migrainosus; G40.909 Epilepsy, unspecified, not intractable, without status epilepticus; E03.9 Hypothyroidism, unspecified; E87.6 Hypokalemia; E66.9 Obesity, unspecified; D64.9 Anemia, unspecified; Z20.822 Contact with and (suspected) exposure to COVID-19; J45.909 Unspecified asthma, uncomplicated; Z98.890 Other specified postprocedural states; Z88.0 Allergy status to penicillin; Z88.8 Allergy status to other drugs, medicaments and biological substances; Z79.4 Long term (current) use of insulin; Z79.899 Other long term (current) drug therapy; Z87.11 Personal history of peptic ulcer disease; Z86.19 Personal history of other infectious and parasitic diseases; Z90.89 Acquired absence of other organs; Z90.49 Acquired absence of other specified parts of digestive tract; Z83.3 Family history of diabetes mellitus; Z91.14 Patient's other noncompliance with medication regimen
CPT/HCPCS: 36415; 80048; 80053; 81001; 82009; 82803; 82947; 83036; 83605; 83735; 84703; 85025; 85027; 96361; 96374; 99221; 99231; 99238; 99284-25; 99285; A9270-GY; J1815; J1815-GY; J2405; J3480; J3490; J7030; J7042; J7060; U0002

== ENCOUNTER 2022-10-12 05:54 | Emergency (ER) | payer MEDICAID ==
[2022-10-12] MEDS ORDERED: Ondansetron 4 MG/2 ML SDV IVPUSH ONE (06:29)
[2022-10-12] MEDS ORDERED: Sodium Chloride 0.9% 1,000 ML IV ONE (06:29)
[2022-10-12 07:19] LABS: CARBON DIOXIDE,CO2 26.4 mmol/L (21.0-32.0); POTASSIUM,K 4.4 mmol/L (3.5-5.1)
[2022-10-12 07:21] LABS: LIPASE 23 U/L (73-393)
[2022-10-12] MEDS ORDERED: Orphenadrine 60 MG/2 ML Inj IM ONE (07:27)
[2022-10-12] MEDS ORDERED: Morphine 2 MG/ML SYRINGE IVPUSH ONE (07:28)
[2022-10-12 08:21] VITALS: BP 105/62; PULSE 102
== END 2022-10-12 08:19 | disposition home or self-care (01) ==
LOC: MW.ED 05:54
DX: M54.50 Low back pain, unspecified (principal); E10.65 Type 1 diabetes mellitus with hyperglycemia; E10.10 Type 1 diabetes mellitus with ketoacidosis without coma; I10 Essential (primary) hypertension; E78.00 Pure hypercholesterolemia, unspecified; J45.909 Unspecified asthma, uncomplicated; E03.9 Hypothyroidism, unspecified; E66.9 Obesity, unspecified; Z86.16 Personal history of COVID-19; Z96.41 Presence of insulin pump (external) (internal); Z79.899 Other long term (current) drug therapy; Z68.34 Body mass index [BMI] 34.0-34.9, adult; Z88.6 Allergy status to analgesic agent; Z88.0 Allergy status to penicillin; Z88.5 Allergy status to narcotic agent; Z88.8 Allergy status to other drugs, medicaments and biological substances
CPT/HCPCS: 36415; 80053; 81001; 81025; 83690; 84484; 85025; 93005; 96361; 96372; 96374; 96375; 99283; J2270; J2360; J2405; J7030; 93010; 99284

== ENCOUNTER 2022-11-16 11:32 | Emergency (ER) | payer MEDICAID ==
[2022-11-16] MEDS ORDERED: Ondansetron 4 MG/2 ML SDV IVPUSH ONE ×2 (11:37→14:50)
[2022-11-16] MEDS ORDERED: Sodium Chloride 0.9% 1,000 ML IV ONE ×2 (11:37→13:00)
[2022-11-16 11:57] LABS: BASOPHILS PERCENT AUTO 0.4 % (0.0-1.5); EOSINOPHILS ABSOLUTE AUTO 0.3 K/uL (0.0-0.7); EOSINOPHILS PERCENT AUTO 2.8 % (0.0-7.0); HEMATOCRIT 39.9 % (36.0-46.0); HEMOGLOBIN 12.8 g/dL (12.0-16.0); LYMPHOCYTES ABSOLUTE AUTO 4.1 K/uL (0.6-2.4); LYMPHOCYTES PERCENT AUTO 42.1 % (16.0-40.0); MEAN CORPUSCULAR HEMOGLOBIN 27.9 pg (27.0-32.0); MEAN CORPUSCULAR HGB CONC 32.1 g/dL (31.0-37.0); MEAN CORPUSCULAR VOLUME 87.1 fL (80.0-98.0); MONOCYTES ABSOLUTE AUTO 0.6 K/uL (0.0-0.8); NEUTROPHILS ABSOLUTE AUTO 4.8 K/uL (1.4-5.7); NEUTROPHILS PERCENT AUTO 48.7 % (48.0-80.0); NRBC ABSOLUTE 0 K/uL; PLATELET COUNT,PLT 275 K/uL (150-400); RED BLOOD CELL COUNT 4.58 M/uL (4.30-5.90); WHITE BLOOD CELL COUNT,WBC 9.74 K/uL (4.0-11.0)
[2022-11-16 12:43] LABS: A/G RATIO 0.9 (0.9-1.6); ALBUMIN 3.5 g/dL (3.4-5.0); BILIRUBIN TOTAL 0.1 mg/dL (0.2-1.0); CREATININE 0.8 mg/dL (0.6-1.0); EST CRCL DRUG DOSING (CG) 79.11 mL/min; POTASSIUM,K 3.7 mmol/L (3.5-5.1); PROTEIN TOTAL,TP 7.4 g/dL (6.4-8.2)
[2022-11-16 12:53] LABS: LACTIC ACID 2.3 mmol/L (0.4-2.0)
[2022-11-16 15:12] LABS: AMPHETAMINES SCREEN, URINE NEGATIVE (CUTOFF=500); BARBITURATE SCREEN,URINE NEGATIVE (CUTOFF=200); BENZODIAZEPINES SCREEN,URINE PRESUMPTIVE POSITIVE (CUTOFF=150); BUPRENORPHINE SCREEN,URINE NEGATIVE (CUTOFF=10); METHADONE SCREEN, URINE NEGATIVE (CUTOFF=200); METHAMPHETAMINES SCREEN, URINE NEGATIVE (CUTOFF=500); OXYCODONE SCREEN,URINE NEGATIVE (CUT0FF=100); PCP SCREEN,URINE NEGATIVE (CUTOFF=25); PROPOXYPHENE SCREEN,URINE NEGATIVE (CUTOFF=300); THC SCREEN,URINE 20 NG/ML NEGATIVE (CUTOFF=50)
[2022-11-16 17:34] VITALS: BP 127/87; PULSE 105
== END 2022-11-16 17:35 | disposition home or self-care (01) ==
LOC: MW.ED 11:32
DX: E10.649 Type 1 diabetes mellitus with hypoglycemia without coma (principal); E78.00 Pure hypercholesterolemia, unspecified; J45.909 Unspecified asthma, uncomplicated; E03.9 Hypothyroidism, unspecified; E66.9 Obesity, unspecified; Z68.32 Body mass index [BMI] 32.0-32.9, adult; Z86.16 Personal history of COVID-19; Z88.6 Allergy status to analgesic agent; Z88.0 Allergy status to penicillin; Z88.8 Allergy status to other drugs, medicaments and biological substances; Z79.899 Other long term (current) drug therapy
CPT/HCPCS: 36415; 70450; 71045; 80053; 80305; 82009; 82947; 83605; 83690; 83735; 84703; 85025; 93005; 96361; 96374; 96376; 99285; J2405; J7030; 93010; 99284

== ENCOUNTER 2022-11-27 17:08 | Emergency (ER) | payer MEDICAID ==
[2022-11-27] MEDS ORDERED: Sodium Chloride 0.9% 1,000 ML IV ONE (17:16)
[2022-11-27] MEDS ORDERED: Promethazine 25 MG/ML SDV IM ONE (17:18)
[2022-11-27 17:42] LABS: BASOPHILS PERCENT AUTO 0.2 % (0.0-1.5); EOSINOPHILS ABSOLUTE AUTO 0.2 K/uL (0.0-0.7); EOSINOPHILS PERCENT AUTO 2.5 % (0.0-7.0); HEMATOCRIT 35.1 % (36.0-46.0); HEMOGLOBIN 11.7 g/dL (12.0-16.0); LYMPHOCYTES ABSOLUTE AUTO 3.3 K/uL (0.6-2.4); LYMPHOCYTES PERCENT AUTO 38.4 % (16.0-40.0); MEAN CORPUSCULAR HEMOGLOBIN 28.3 pg (27.0-32.0); MEAN CORPUSCULAR HGB CONC 33.3 g/dL (31.0-37.0); MEAN CORPUSCULAR VOLUME 84.8 fL (80.0-98.0); MONOCYTES ABSOLUTE AUTO 0.5 K/uL (0.0-0.8); NEUTROPHILS ABSOLUTE AUTO 4.5 K/uL (1.4-5.7); NEUTROPHILS PERCENT AUTO 52.9 % (48.0-80.0); PLATELET COUNT,PLT 344 K/uL (150-400); RED BLOOD CELL COUNT 4.14 M/uL (4.30-5.90); WHITE BLOOD CELL COUNT,WBC 8.48 K/uL (4.0-11.0)
[2022-11-27 18:04] LABS: A/G RATIO 0.8 (0.9-1.6); BILIRUBIN TOTAL 0.1 mg/dL (0.2-1.0); CALCIUM 8.5 mg/dL (8.5-10.1); CARBON DIOXIDE,CO2 25.8 mmol/L (21.0-32.0); CREATININE 0.8 mg/dL (0.6-1.0); EST CRCL DRUG DOSING (CG) 71.84 mL/min; MAGNESIUM 1.9 mg/dL (1.8-2.4); PROTEIN TOTAL,TP 6.6 g/dL (6.4-8.2)
[2022-11-27 18:09] LABS: LACTIC ACID 1.5 mmol/L (0.4-2.0)
[2022-11-27] MEDS ORDERED: oxyCODONE 5 MG Tab PO ONE (18:16)
[2022-11-27 18:19] LABS: BILIRUBIN,URINE NEGATIVE (NEGATIVE); COLOR,URINE YELLOW; GLUCOSE,URINE NEGATIVE (NEGATIVE); KETONES,URINE NEGATIVE (NEGATIVE); LEUKOCYTE ESTERASE,URINE NEGATIVE (NEGATIVE); NITRITE,URINE NEGATIVE (NEGATIVE); OCCULT BLOOD,URINE NEGATIVE (NEGATIVE); PROTEIN,URINE NEGATIVE (NEGATIVE); UROBILINOGEN,URINE 0.2 EU/dL (<2.0)
[2022-11-27 18:21] LABS: APPEARANCE,URINE HAZY
[2022-11-27 19:29] VITALS: BP 120/75; PULSE 98
== END 2022-11-27 19:27 | disposition home or self-care (01) ==
LOC: MW.ED 17:08
DX: K52.9 Noninfective gastroenteritis and colitis, unspecified (principal); E10.69 Type 1 diabetes mellitus with other specified complication; E03.9 Hypothyroidism, unspecified; J45.909 Unspecified asthma, uncomplicated; Z86.16 Personal history of COVID-19; Z79.899 Other long term (current) drug therapy
CPT/HCPCS: 36415; 80053; 81003; 82009; 82947; 83605; 83690; 83735; 85025; 93005; 96372; 99284; A9270; J2550; 93010; 99283

== ENCOUNTER 2022-12-11 15:49 | Emergency (ER) | payer MEDICAID ==
[2022-12-11] MEDS ORDERED: Sodium Chloride 0.9% 2.5 ML Syringe FLUSH PRN (20:42)
[2022-12-11] MEDS ORDERED: Sodium Chloride 0.9% 10 ML Syringe FLUSH PRN (20:42)
[2022-12-11 20:57] LABS: BILIRUBIN,URINE NEGATIVE (NEGATIVE); COLOR,URINE YELLOW; GLUCOSE,URINE NEGATIVE (NEGATIVE); KETONES,URINE 15 mg/dL (NEGATIVE); LEUKOCYTE ESTERASE,URINE NEGATIVE (NEGATIVE); NITRITE,URINE NEGATIVE (NEGATIVE); OCCULT BLOOD,URINE NEGATIVE (NEGATIVE); PROTEIN,URINE TRACE mg/dL (NEGATIVE); UROBILINOGEN,URINE 0.2 EU/dL (<2.0)
[2022-12-11 21:04] LABS: APPEARANCE,URINE HAZY
[2022-12-11 21:05] LABS: BASOPHILS PERCENT AUTO 0.3 % (0.0-1.5); EOSINOPHILS PERCENT AUTO 0.3 % (0.0-7.0); HEMATOCRIT 41.6 % (36.0-46.0); HEMOGLOBIN 13.8 g/dL (12.0-16.0); LYMPHOCYTES ABSOLUTE AUTO 2.9 K/uL (0.6-2.4); LYMPHOCYTES PERCENT AUTO 28.2 % (16.0-40.0); MEAN CORPUSCULAR HEMOGLOBIN 27.8 pg (27.0-32.0); MEAN CORPUSCULAR HGB CONC 33.2 g/dL (31.0-37.0); MEAN CORPUSCULAR VOLUME 83.7 fL (80.0-98.0); MONOCYTES ABSOLUTE AUTO 0.4 K/uL (0.0-0.8); MONOCYTES PERCENT AUTO 4.3 % (0.0-15.0); NEUTROPHILS ABSOLUTE AUTO 6.8 K/uL (1.4-5.7); NEUTROPHILS PERCENT AUTO 66.9 % (48.0-80.0); NRBC ABSOLUTE 0 K/uL; PLATELET COUNT,PLT 404 K/uL (150-400); RED BLOOD CELL COUNT 4.97 M/uL (4.30-5.90); WHITE BLOOD CELL COUNT,WBC 10.16 K/uL (4.0-11.0)
[2022-12-11 21:05] LABS: BACTERIA,URINE 1+ (NEGATIVE); EPITHELIAL CELLS,URINE FEW (NONE-FEW); RBC,URINE 0-1 (0-2/HPF); WBC,URINE 0-2 (0-5/HPF)
[2022-12-11] MEDS ORDERED: Sodium Chloride 0.9% 1,000 ML IV STA (21:10)
[2022-12-11] MEDS ORDERED: oxyCODONE 5 MG Tab PO STA (21:42)
[2022-12-11] MEDS ORDERED: Promethazine 25 MG/ML SDV IM STA (21:42)
[2022-12-11 21:48] LABS: A/G RATIO 0.8 (0.9-1.6); ALANINE AMINOTRANSFERASE,ALT 23 IU/L (14-63); ALBUMIN 3.5 g/dL (3.4-5.0); ALKALINE PHOSPHATASE 166 U/L (46-116); ASPARTATE AMNIOTRANSFERASE,AST 24 IU/L (15-37); BILIRUBIN TOTAL 0.4 mg/dL (0.2-1.0); BLOOD UREA NITROGEN,BUN 11 mg/dL (7.0-18.0); CALCIUM 9.2 mg/dL (8.5-10.1); CARBON DIOXIDE,CO2 23.3 mmol/L (21.0-32.0); CHLORIDE,CL 99 mmol/L (98-107); CREATININE 0.7 mg/dL (0.6-1.0); GLUCOSE RANDOM 240 mg/dL (74-106); LIPASE 18 U/L (73-393); POTASSIUM,K 4.5 mmol/L (3.5-5.1); PROTEIN TOTAL,TP 7.9 g/dL (6.4-8.2); SODIUM,NA 136 mmol/L (136-145)
[2022-12-11 21:53] LABS: ESTIMATED GFR 117 mL/min (>60)
[2022-12-11 23:24] VITALS: BP 117/70; PULSE 94
== END 2022-12-11 23:57 | disposition home or self-care (01) ==
LOC: MW.ED 15:49
DX: N30.01 Acute cystitis with hematuria (principal); K59.03 Drug induced constipation; T40.2X5A Adverse effect of other opioids, initial encounter; R11.0 Nausea; I10 Essential (primary) hypertension; E10.9 Type 1 diabetes mellitus without complications; J45.909 Unspecified asthma, uncomplicated; E03.9 Hypothyroidism, unspecified; Z88.0 Allergy status to penicillin; Z88.6 Allergy status to analgesic agent; Z88.5 Allergy status to narcotic agent; Z79.899 Other long term (current) drug therapy
CPT/HCPCS: 36415; 74176; 80053; 81001; 81025; 82947; 83690; 83735; 85025; 96360; 96372; 99284; A9270; J2550; J3490; J7030; 99283

== ENCOUNTER 2022-12-20 04:36 | Emergency (ER) | payer MEDICAID ==
[2022-12-20 06:45] VITALS: BP 112/62; PULSE 70
[2022-12-20 09:34] LABS: HEMOGLOBIN 12.1 g/dL (12.0-16.0); MEAN CORPUSCULAR HEMOGLOBIN 27.5 pg (27.0-32.0); MEAN CORPUSCULAR HGB CONC 33.6 g/dL (31.0-37.0); MEAN CORPUSCULAR VOLUME 81.8 fL (80.0-98.0); MEAN PLATELET VOLUME 9.3 fL (7.40-12.00); RED BLOOD CELL COUNT 4.4 M/uL (4.30-5.90); WHITE BLOOD CELL COUNT,WBC 11.48 K/uL (4.0-11.0)
[2022-12-20 09:43] LABS: A/G RATIO 0.8 (0.9-1.6); ACETAMINOPHEN <2.0 ug/mL; ALANINE AMINOTRANSFERASE,ALT 27 IU/L (14-63); ALBUMIN 3.3 g/dL (3.4-5.0); ALKALINE PHOSPHATASE 152 U/L (46-116); ASPARTATE AMNIOTRANSFERASE,AST 21 IU/L (15-37); BILIRUBIN TOTAL 0.1 mg/dL (0.2-1.0); BLOOD UREA NITROGEN,BUN 20 mg/dL (7.0-18.0); CALCIUM 9.1 mg/dL (8.5-10.1); CARBON DIOXIDE,CO2 21.8 mmol/L (21.0-32.0); CHLORIDE,CL 106 mmol/L (98-107); CREATININE 0.9 mg/dL (0.6-1.0); EST CRCL DRUG DOSING (CG) 67.09 mL/min; ESTIMATED GFR 87 mL/min (>60); ETHANOL BLOOD MEDICAL < 3.0 mg/dL; GLUCOSE RANDOM 87 mg/dL (74-106); POTASSIUM,K 3.9 mmol/L (3.5-5.1); PROTEIN TOTAL,TP 7.4 g/dL (6.4-8.2); SALICYLATE 4.2 mg/dL (0.0-20.0); SODIUM,NA 139 mmol/L (136-145)
== END 2022-12-20 08:06 | disposition home or self-care (01) ==
LOC: MW.ED 04:36
DX: F11.20 Opioid dependence, uncomplicated (principal); R56.9 Unspecified convulsions; Z79.899 Other long term (current) drug therapy
CPT/HCPCS: 36415; 70450; 70450-26; 80053; 80143; 80179; 80307; 83605; 84703; 85027; 93005; 96365; 96375; 99285-25

== ENCOUNTER 2023-01-06 17:03 | Emergency (ER) | payer MEDICAID ==
[2023-01-06] MEDS ORDERED: Sodium Chloride 0.9% 1,000 ML IV ONE (17:10)
[2023-01-06 18:00] LABS: BASOPHILS PERCENT AUTO 0.4 % (0.0-1.5); EOSINOPHILS ABSOLUTE AUTO 0.1 K/uL (0.0-0.7); EOSINOPHILS PERCENT AUTO 0.9 % (0.0-7.0); HEMATOCRIT 39.1 % (36.0-46.0); HEMOGLOBIN 13.2 g/dL (12.0-16.0); LYMPHOCYTES ABSOLUTE AUTO 2.2 K/uL (0.6-2.4); LYMPHOCYTES PERCENT AUTO 27.7 % (16.0-40.0); MEAN CORPUSCULAR HEMOGLOBIN 26.8 pg (27.0-32.0); MEAN CORPUSCULAR HGB CONC 33.8 g/dL (31.0-37.0); MEAN CORPUSCULAR VOLUME 79.3 fL (80.0-98.0); MONOCYTES ABSOLUTE AUTO 0.4 K/uL (0.0-0.8); MONOCYTES PERCENT AUTO 4.7 % (0.0-15.0); NEUTROPHILS ABSOLUTE AUTO 5.4 K/uL (1.4-5.7); NEUTROPHILS PERCENT AUTO 66.3 % (48.0-80.0); PLATELET COUNT,PLT 444 K/uL (150-400); RED BLOOD CELL COUNT 4.93 M/uL (4.30-5.90); WHITE BLOOD CELL COUNT,WBC 8.08 K/uL (4.0-11.0)
[2023-01-06 18:03] LABS: BASE EXCESS VENOUS 1.5 (-2.0-3.0); PH,VENOUS 7.45 (7.31-7.41)
[2023-01-06 18:33] LABS: LACTIC ACID 1.4 mmol/L (0.4-2.0)
[2023-01-06 18:38] LABS: A/G RATIO 0.9 (0.9-1.6); ALBUMIN 3.6 g/dL (3.4-5.0); BILIRUBIN TOTAL 0.3 mg/dL (0.2-1.0); CALCIUM 9.6 mg/dL (8.5-10.1); CARBON DIOXIDE,CO2 23.7 mmol/L (21.0-32.0); CREATININE 0.7 mg/dL (0.6-1.0); EST CRCL DRUG DOSING (CG) 82.11 mL/min; MAGNESIUM 1.9 mg/dL (1.8-2.4); POTASSIUM,K 4.1 mmol/L (3.5-5.1); PROTEIN TOTAL,TP 7.6 g/dL (6.4-8.2); TSH ULTRASENSITIVE 2.49 uIU/mL (0.36-3.74)
[2023-01-06] MEDS ORDERED: Ondansetron 4 MG/2 ML SDV IVPUSH ONE (18:49)
[2023-01-06] MEDS ORDERED: Morphine 2 MG/ML SYRINGE IVPUSH ONE (18:49)
[2023-01-06 18:52] LABS: APPEARANCE,URINE CLEAR; BILIRUBIN,URINE NEGATIVE (NEGATIVE); COLOR,URINE YELLOW; GLUCOSE,URINE >=1000 mg/dL (NEGATIVE); KETONES,URINE 40 mg/dL (NEGATIVE); LEUKOCYTE ESTERASE,URINE NEGATIVE (NEGATIVE); NITRITE,URINE NEGATIVE (NEGATIVE); OCCULT BLOOD,URINE NEGATIVE (NEGATIVE); PROTEIN,URINE NEGATIVE (NEGATIVE); UROBILINOGEN,URINE 0.2 EU/dL (<2.0)
[2023-01-06 19:04] LABS: AMPHETAMINES SCREEN, URINE NEGATIVE (CUTOFF=500); BARBITURATE SCREEN,URINE NEGATIVE (CUTOFF=200); BENZODIAZEPINES SCREEN,URINE NEGATIVE (CUTOFF=150); BUPRENORPHINE SCREEN,URINE NEGATIVE (CUTOFF=10); METHADONE SCREEN, URINE NEGATIVE (CUTOFF=200); METHAMPHETAMINES SCREEN, URINE NEGATIVE (CUTOFF=500); OXYCODONE SCREEN,URINE NEGATIVE (CUT0FF=100); PCP SCREEN,URINE NEGATIVE (CUTOFF=25); PROPOXYPHENE SCREEN,URINE NEGATIVE (CUTOFF=300); THC SCREEN,URINE 20 NG/ML NEGATIVE (CUTOFF=50)
[2023-01-06] MEDS ORDERED: diphenhydrAMINE 50 MG/ML SDV IVPUSH ONE (19:31)
[2023-01-06 21:20] VITALS: BP 109/59; PULSE 102
== END 2023-01-06 20:20 | disposition home or self-care (01) ==
LOC: MW.ED 17:03
DX: K52.9 Noninfective gastroenteritis and colitis, unspecified (principal); J45.909 Unspecified asthma, uncomplicated; E78.00 Pure hypercholesterolemia, unspecified; E10.9 Type 1 diabetes mellitus without complications; Z86.16 Personal history of COVID-19; Z88.0 Allergy status to penicillin; Z88.5 Allergy status to narcotic agent; Z88.8 Allergy status to other drugs, medicaments and biological substances; Z88.6 Allergy status to analgesic agent; Z79.899 Other long term (current) drug therapy
CPT/HCPCS: 36415; 80053; 80305; 81003; 82803; 82947; 83605; 83735; 84443; 84703; 85025; 96361; 96374; 96375; 99284; J1200; J2270; J2405; J7030

== ENCOUNTER 2023-01-07 01:13 | Emergency (ER) | payer MEDICAID ==
[2023-01-07] MEDS ORDERED: Sodium Chloride 0.9% 1,000 ML IV ONE (01:22)
[2023-01-07] MEDS ORDERED: Haloperidol Lactate 5 MG/ML SDV IM ONE (01:22)
[2023-01-07] MEDS ORDERED: Ondansetron 4 MG/2 ML SDV IVPUSH ONE (01:37)
[2023-01-07 01:46] LABS: BASOPHILS PERCENT AUTO 0.4 % (0.0-1.5); EOSINOPHILS PERCENT AUTO 0.1 % (0.0-7.0); HEMATOCRIT 37.4 % (36.0-46.0); HEMOGLOBIN 12.5 g/dL (12.0-16.0); LYMPHOCYTES ABSOLUTE AUTO 2.7 K/uL (0.6-2.4); LYMPHOCYTES PERCENT AUTO 23.9 % (16.0-40.0); MEAN CORPUSCULAR HEMOGLOBIN 26.7 pg (27.0-32.0); MEAN CORPUSCULAR HGB CONC 33.4 g/dL (31.0-37.0); MEAN CORPUSCULAR VOLUME 79.9 fL (80.0-98.0); MONOCYTES ABSOLUTE AUTO 0.5 K/uL (0.0-0.8); MONOCYTES PERCENT AUTO 4.3 % (0.0-15.0); NEUTROPHILS ABSOLUTE AUTO 8.1 K/uL (1.4-5.7); NEUTROPHILS PERCENT AUTO 71.3 % (48.0-80.0); PLATELET COUNT,PLT 455 K/uL (150-400); RED BLOOD CELL COUNT 4.68 M/uL (4.30-5.90); WHITE BLOOD CELL COUNT,WBC 11.32 K/uL (4.0-11.0)
[2023-01-07] MEDS ORDERED: diphenhydrAMINE 50 MG/ML SDV IVPUSH ONE (01:59)
[2023-01-07 02:19] LABS: A/G RATIO 0.9 (0.9-1.6); ALBUMIN 3.4 g/dL (3.4-5.0); BILIRUBIN TOTAL 0.4 mg/dL (0.2-1.0); CALCIUM 9.1 mg/dL (8.5-10.1); CARBON DIOXIDE,CO2 19.7 mmol/L (21.0-32.0); CREATININE 0.7 mg/dL (0.6-1.0); EST CRCL DRUG DOSING (CG) 82.11 mL/min; POTASSIUM,K 3.9 mmol/L (3.5-5.1); PROTEIN TOTAL,TP 7.4 g/dL (6.4-8.2)
[2023-01-07] MEDS ORDERED: Insulin Regular, Human 100 Units/ML 10 ML Vial SUBCUT ONE (02:39)
[2023-01-07 03:35] VITALS: BP 120/63; PULSE 104
== END 2023-01-07 02:40 | disposition left against medical advice (07) ==
LOC: MW.ED 01:13
DX: R56.9 Unspecified convulsions (principal); E10.43 Type 1 diabetes mellitus with diabetic autonomic (poly)neuropathy; K31.84 Gastroparesis; E10.65 Type 1 diabetes mellitus with hyperglycemia; J45.909 Unspecified asthma, uncomplicated; E78.00 Pure hypercholesterolemia, unspecified; Z88.0 Allergy status to penicillin; Z88.6 Allergy status to analgesic agent; Z88.5 Allergy status to narcotic agent; Z88.8 Allergy status to other drugs, medicaments and biological substances
CPT/HCPCS: 36415; 80053; 85025; 96365; 96375; 99285; J1200; J1953; J2405; J7030; J7060; 99284

== ENCOUNTER 2023-01-21 09:58 | Inpatient (IN) | payer MEDICAID ==
[2023-01-21] MEDS ORDERED: Naloxone 0.4 MG/ML SDV IVPUSH ONE ×4 (10:01→15:42)
[2023-01-21] MEDS ORDERED: Sodium Chloride 0.9% 2.5 ML Syringe FLUSH PRN (10:01)
[2023-01-21] MEDS ORDERED: Sodium Chloride 0.9% 10 ML Syringe FLUSH PRN (10:01)
[2023-01-21] MEDS ORDERED: Sodium Chloride 0.9% 1,000 ML IV ONE ×3 (10:01→16:15)
[2023-01-21] MEDS ORDERED: Naloxone 4 MG Nasal Spray NAS ONE (10:10)
[2023-01-21 10:51] LABS: PCO2 ARTERIAL < 15 mmHG (35-45); PO2 ARTERIAL 126 mmHG (80-105)
[2023-01-21 10:59] LABS: A/G RATIO 0.7 (0.9-1.6); ALANINE AMINOTRANSFERASE,ALT 45 IU/L (14-63); ALBUMIN 2.9 g/dL (3.4-5.0); ALKALINE PHOSPHATASE 161 U/L (46-116); ASPARTATE AMNIOTRANSFERASE,AST 47 IU/L (15-37); BILIRUBIN TOTAL 0.6 mg/dL (0.2-1.0); BLOOD UREA NITROGEN,BUN 19 mg/dL (7.0-18.0); CALCIUM 8.4 mg/dL (8.5-10.1); CARBON DIOXIDE,CO2 12.2 mmol/L (21.0-32.0); CHLORIDE,CL 95 mmol/L (98-107); EST CRCL DRUG DOSING (CG) 57.48 mL/min; LIPASE 20 U/L (73-393); POTASSIUM,K 4.6 mmol/L (3.5-5.1); SODIUM,NA 132 mmol/L (136-145)
[2023-01-21 11:01] LABS: CREATINE KINASE,CK 1430 U/L (26-308); ESTIMATED GFR 76 mL/min (>60); GLUCOSE RANDOM 729 mg/dL (74-106)
[2023-01-21] MEDS ORDERED: Glucagon,Human Recombinant 1 MG Vial IM PRN (11:05)
[2023-01-21] MEDS ORDERED: 50% Dextrose in Water 50 ML Syringe IVPUSH PRN (11:05)
[2023-01-21] MEDS ORDERED: Insulin Regular, Human 100 Units/ML 10 ML Vial SUBCUT ONE (11:05)
[2023-01-21 11:06] LABS: BASOPHILS ABSOLUTE AUTO 0.1 K/uL (0.0-0.1); BASOPHILS PERCENT AUTO 0.3 % (0.0-1.5); EOSINOPHILS ABSOLUTE AUTO 0.1 K/uL (0.0-0.7); EOSINOPHILS PERCENT AUTO 0.6 % (0.0-7.0); HEMOGLOBIN 11.6 g/dL (12.0-16.0); LYMPHOCYTES ABSOLUTE AUTO 2.7 K/uL (0.6-2.4); LYMPHOCYTES PERCENT AUTO 18.4 % (16.0-40.0); MEAN CORPUSCULAR HEMOGLOBIN 26.1 pg (27.0-32.0); MEAN CORPUSCULAR HGB CONC 29.7 g/dL (31.0-37.0); MEAN CORPUSCULAR VOLUME 87.6 fL (80.0-98.0); MONOCYTES ABSOLUTE AUTO 0.7 K/uL (0.0-0.8); MONOCYTES PERCENT AUTO 4.6 % (0.0-15.0); NEUTROPHILS PERCENT AUTO 76.1 % (48.0-80.0); NRBC ABSOLUTE 0 K/uL; PLATELET COUNT,PLT 338 K/uL (150-400); RED BLOOD CELL COUNT 4.45 M/uL (4.30-5.90); WHITE BLOOD CELL COUNT,WBC 14.39 K/uL (4.0-11.0)
[2023-01-21] MEDS: Insulin Regular in 0.9 % NACL 100 ML IV SCH (11:21)
[2023-01-21 11:23] LABS: LACTIC ACID 2.9 mmol/L (0.4-2.0)
[2023-01-21 11:27] LABS: TSH ULTRASENSITIVE 11.24 uIU/mL (0.36-3.74)
[2023-01-21 11:28] LABS: INR 0.96 (0.86-1.11)
[2023-01-21 11:51] LABS: T4 FREE 0.95 ng/dL (0.76-1.46)
[2023-01-21 12:51] LABS: APPEARANCE,URINE CLEAR; BILIRUBIN,URINE NEGATIVE (NEGATIVE); COLOR,URINE YELLOW; GLUCOSE,URINE >=1000 mg/dL (NEGATIVE); KETONES,URINE >=80 mg/dL (NEGATIVE); LEUKOCYTE ESTERASE,URINE NEGATIVE (NEGATIVE); NITRITE,URINE NEGATIVE (NEGATIVE); OCCULT BLOOD,URINE TRACE-INTACT (NEGATIVE); PH,URINE 5.5 (5.0-8.0); PROTEIN,URINE NEGATIVE (NEGATIVE); UROBILINOGEN,URINE 0.2 EU/dL (<2.0)
[2023-01-21 12:59] LABS: AMPHETAMINES SCREEN, URINE NEGATIVE (CUTOFF=500); BARBITURATE SCREEN,URINE NEGATIVE (CUTOFF=200); BENZODIAZEPINES SCREEN,URINE PRESUMPTIVE POSITIVE (CUTOFF=150); BUPRENORPHINE SCREEN,URINE NEGATIVE (CUTOFF=10); METHADONE SCREEN, URINE NEGATIVE (CUTOFF=200); METHAMPHETAMINES SCREEN, URINE NEGATIVE (CUTOFF=500); OXYCODONE SCREEN,URINE NEGATIVE (CUT0FF=100); PCP SCREEN,URINE NEGATIVE (CUTOFF=25); PROPOXYPHENE SCREEN,URINE NEGATIVE (CUTOFF=300); THC SCREEN,URINE 20 NG/ML NEGATIVE (CUTOFF=50)
[2023-01-21 13:05] LABS: BACTERIA,URINE RARE (NEGATIVE); EPITHELIAL CELLS,URINE OCCASIONAL (NONE-FEW); WBC,URINE 0-1 (0-5/HPF)
[2023-01-21 13:06] LABS: AMORPHOUS SEDIMENT,URINE MODERATE (NEGATIVE)
[2023-01-21] MEDS ORDERED: Sodium Chloride 0.9% 1,000 ML IV SCH (14:45)
[2023-01-21 15:10] LABS: CALCIUM 8.1 mg/dL (8.5-10.1); CARBON DIOXIDE,CO2 11.5 mmol/L (21.0-32.0); CREATININE 1.1 mg/dL (0.6-1.0); EST CRCL DRUG DOSING (CG) 52.25 mL/min; POTASSIUM,K 3.3 mmol/L (3.5-5.1)
[2023-01-21] MEDS ORDERED: Naloxone 0.4 MG/ML SDV IVPUSH PRN (15:55)
[2023-01-21] MEDS ORDERED: Enoxaparin 40 MG/0.4 ML Syringe SUBCUT SCH (16:15)
[2023-01-21] MEDS ORDERED: D5 1/2 NS w/ 40 mEq/L KCl 1,000 ML IV SCH (18:15)
[2023-01-21 19:36] LABS: CALCIUM 7.6 mg/dL (8.5-10.1); CARBON DIOXIDE,CO2 16.4 mmol/L (21.0-32.0); CREATININE 0.9 mg/dL (0.6-1.0); EST CRCL DRUG DOSING (CG) 63.86 mL/min; POTASSIUM,K 3.3 mmol/L (3.5-5.1)
[2023-01-21 23:27] LABS: CALCIUM 7.3 mg/dL (8.5-10.1); CARBON DIOXIDE,CO2 20.4 mmol/L (21.0-32.0); EST CRCL DRUG DOSING (CG) 57.48 mL/min; POTASSIUM,K 4.1 mmol/L (3.5-5.1)
[2023-01-21] MEDS: Dextrose 5%-0.45% NaCl 1,000 ML IV SCH (23:49)
[2023-01-22 03:16] LABS: CALCIUM 7.1 mg/dL (8.5-10.1); CARBON DIOXIDE,CO2 16.8 mmol/L (21.0-32.0); CREATININE 0.9 mg/dL (0.6-1.0); EST CRCL DRUG DOSING (CG) 63.86 mL/min; POTASSIUM,K 3.6 mmol/L (3.5-5.1)
[2023-01-22 04:18] LABS: HEMOGLOBIN A1C 10.1 %
[2023-01-22] MEDS: Dextrose 5%-0.45% NaCl 1,000 ML IV SCH ×2 (04:57→10:09)
[2023-01-22 07:22] LABS: BASOPHILS ABSOLUTE AUTO 0.1 K/uL (0.0-0.1); BASOPHILS PERCENT AUTO 0.4 % (0.0-1.5); EOSINOPHILS ABSOLUTE AUTO 0.1 K/uL (0.0-0.7); EOSINOPHILS PERCENT AUTO 0.5 % (0.0-7.0); HEMATOCRIT 35.1 % (36.0-46.0); HEMOGLOBIN 11.1 g/dL (12.0-16.0); LYMPHOCYTES ABSOLUTE AUTO 3.8 K/uL (0.6-2.4); LYMPHOCYTES PERCENT AUTO 23.6 % (16.0-40.0); MEAN CORPUSCULAR HEMOGLOBIN 26.4 pg (27.0-32.0); MEAN CORPUSCULAR HGB CONC 31.6 g/dL (31.0-37.0); MEAN CORPUSCULAR VOLUME 83.4 fL (80.0-98.0); MONOCYTES PERCENT AUTO 5.9 % (0.0-15.0); NEUTROPHILS ABSOLUTE AUTO 11.1 K/uL (1.4-5.7); NEUTROPHILS PERCENT AUTO 69.6 % (48.0-80.0); NRBC ABSOLUTE 0 K/uL; PLATELET COUNT,PLT 355 K/uL (150-400); RED BLOOD CELL COUNT 4.21 M/uL (4.30-5.90); WHITE BLOOD CELL COUNT,WBC 16.03 K/uL (4.0-11.0)
[2023-01-22] MEDS ORDERED: fentaNYL/Normal Saline 2,500 MCG in Premix Bag 1 BAG IV PRN (07:49)
[2023-01-22] MEDS ORDERED: Rocuronium 100 MG/10 ML MDV ONE (07:53)
[2023-01-22] MEDS ORDERED: Succinylcholine 200 MG/10 ML MDV ONE (07:53)
[2023-01-22 07:59] LABS: A/G RATIO 0.8 (0.9-1.6); ALBUMIN 2.4 g/dL (3.4-5.0); BILIRUBIN TOTAL 0.3 mg/dL (0.2-1.0); CALCIUM 7.2 mg/dL (8.5-10.1); CARBON DIOXIDE,CO2 18.9 mmol/L (21.0-32.0); CREATININE 0.8 mg/dL (0.6-1.0); EST CRCL DRUG DOSING (CG) 71.84 mL/min; PROTEIN TOTAL,TP 5.6 g/dL (6.4-8.2)
[2023-01-22 08:00] LABS: MAGNESIUM 1.5 mg/dL (1.8-2.4); PHOSPHORUS 1.5 mg/dL (2.6-4.7)
[2023-01-22] MEDS ORDERED: propofoL 100 ML IV SCH (08:00)
[2023-01-22] MEDS ORDERED: Meropenem 2 GM in Sodium Chloride 0.9% 100 ML IV SCH (08:30)
[2023-01-22] MEDS: Insulin Regular in 0.9 % NACL 100 ML IV SCH (10:16)
[2023-01-22 10:21] LABS: BASE EXCESS ARTERIAL -6.9 (-2.0-3.0); BICARBONATE,ARTERIAL 18 mEq/L (22-26); PCO2 ARTERIAL 35 mmHG (35-45); PO2 ARTERIAL 112 mmHG (80-105)
[2023-01-22 11:08] VITALS: BP 131/77; PULSE 93
== END 2023-01-22 10:30 | DRG 637 ==
LOC: MW.ED 09:58 → MW.ICU 12:32 → MW.ED 13:27
PROVIDERS: ADMIT Internal Medicine; ATTEND Internal Medicine
PROC: 0BH17EZ Insertion of Endotracheal Airway into Trachea, Via Natural or Artificial Opening (ICD-10-PCS; principal; 2023-01-22)
PROC: 5A1935Z Respiratory Ventilation, Less than 24 Consecutive Hours (ICD-10-PCS; 2023-01-22)
PROC: 02H633Z Insertion of Infusion Device into Right Atrium, Percutaneous Approach (ICD-10-PCS; 2023-01-22)
DX: E10.11 Type 1 diabetes mellitus with ketoacidosis with coma (principal); J96.01 Acute respiratory failure with hypoxia; N17.9 Acute kidney failure, unspecified; G93.1 Anoxic brain damage, not elsewhere classified; M62.82 Rhabdomyolysis; T40.2X1A Poisoning by other opioids, accidental (unintentional), initial encounter; E03.9 Hypothyroidism, unspecified; K31.84 Gastroparesis; K59.09 Other constipation; M54.9 Dorsalgia, unspecified; G89.29 Other chronic pain; Z88.0 Allergy status to penicillin; Z88.6 Allergy status to analgesic agent; Z88.5 Allergy status to narcotic agent; Z88.8 Allergy status to other drugs, medicaments and biological substances; Z79.899 Other long term (current) drug therapy; Z90.49 Acquired absence of other specified parts of digestive tract; Z86.16 Personal history of COVID-19
CPT/HCPCS: 31500; 36415; 36556; 36600; 51702; 70450; 70450-26; 71045; 71045-26; 80048; 80053; 80305-QW; 81001; 82009; 82140; 82550; 82803; 82947; 83036; 83605; 83690; 83735; 83880; 84100; 84439; 84443; 84484; 84703; 85025; 85610; 93005; 93010; 96361; 96374; 99222; 99291; J0330; J1650; J1815; J1815-GY; J1953; J2185; J2310; J2704; J3480; J3490; J7030; J7042; J7060

== ENCOUNTER 2023-03-16 16:23 | Inpatient (IN) | payer MEDICAID ==
[2023-03-16] MEDS ORDERED: Sodium Chloride 0.9% 10 ML Syringe FLUSH PRN (16:28)
[2023-03-16] MEDS ORDERED: Lactated Ringers 1,000 ML IV ONE ×4 (16:28→23:41)
[2023-03-16] MEDS ORDERED: Sodium Chloride 0.9% 2.5 ML Syringe FLUSH PRN (16:28)
[2023-03-16] MEDS ORDERED: Ondansetron 4 MG/2 ML SDV IVPUSH ONE (17:20)
[2023-03-16 17:21] LABS: BASE EXCESS VENOUS -28.1 (-2.0-3.0); PH,VENOUS 6.91 (7.31-7.41)
[2023-03-16 17:30] LABS: BASOPHILS ABSOLUTE AUTO 0.1 K/uL (0.0-0.1); BASOPHILS PERCENT AUTO 0.4 % (0.0-1.5); EOSINOPHILS PERCENT AUTO 0.1 % (0.0-7.0); HEMATOCRIT 41.9 % (36.0-46.0); HEMOGLOBIN 11.8 g/dL (12.0-16.0); LYMPHOCYTES ABSOLUTE AUTO 1.5 K/uL (0.6-2.4); LYMPHOCYTES PERCENT AUTO 8.7 % (16.0-40.0); MEAN CORPUSCULAR HEMOGLOBIN 25.3 pg (27.0-32.0); MEAN CORPUSCULAR HGB CONC 28.2 g/dL (31.0-37.0); MEAN CORPUSCULAR VOLUME 89.7 fL (80.0-98.0); MONOCYTES ABSOLUTE AUTO 0.8 K/uL (0.0-0.8); MONOCYTES PERCENT AUTO 4.9 % (0.0-15.0); NEUTROPHILS ABSOLUTE AUTO 14.4 K/uL (1.4-5.7); NEUTROPHILS PERCENT AUTO 85.9 % (48.0-80.0); NRBC ABSOLUTE 0 K/uL; PLATELET COUNT,PLT 489 K/uL (150-400); RED BLOOD CELL COUNT 4.67 M/uL (4.30-5.90); WHITE BLOOD CELL COUNT,WBC 16.78 K/uL (4.0-11.0)
[2023-03-16 17:59] LABS: A/G RATIO 0.8 (0.9-1.6); ALANINE AMINOTRANSFERASE,ALT 36 IU/L (14-63); ALKALINE PHOSPHATASE 247 U/L (46-116); ASPARTATE AMNIOTRANSFERASE,AST 45 IU/L (15-37); BILIRUBIN TOTAL 0.4 mg/dL (0.2-1.0); BLOOD UREA NITROGEN,BUN 18 mg/dL (7.0-18.0); CALCIUM 8.7 mg/dL (8.5-10.1); CHLORIDE,CL 95 mmol/L (98-107); CREATININE 1.3 mg/dL (0.6-1.0); LIPASE 13 U/L (16-77); MAGNESIUM 2.3 mg/dL (1.8-2.4); POTASSIUM,K 5.6 mmol/L (3.5-5.1); PROTEIN TOTAL,TP 8.9 g/dL (6.4-8.2); SODIUM,NA 132 mmol/L (136-145)
[2023-03-16 18:00] LABS: CARBON DIOXIDE,CO2 4.3 mmol/L (21.0-32.0); ESTIMATED GFR 56 mL/min (>60); ETHANOL BLOOD MEDICAL < 3.0 mg/dL
[2023-03-16] MEDS ORDERED: LORazepam 2 MG/ML SDV IVPUSH ONE ×3 (18:08→21:55)
[2023-03-16] MEDS ORDERED: Insulin Regular in 0.9 % NACL 100 ML IV SCH (18:15)
[2023-03-16] MEDS ORDERED: Dextrose 5%-Lactated Ringers 1,000 ML IV SCH (18:15)
[2023-03-16] MEDS ORDERED: Lactated Ringers 1,000 ML IV SCH (18:15)
[2023-03-16 18:19] LABS: GLUCOSE RANDOM 813 mg/dL (74-106)
[2023-03-16 18:27] LABS: HEMOGLOBIN A1C 10.4 %
[2023-03-16 19:35] VITALS: PULSE 126
[2023-03-16 22:35] LABS: CALCIUM 8.9 mg/dL (8.5-10.1); CREATININE 1.3 mg/dL (0.6-1.0); EST CRCL DRUG DOSING (CG) 44.21 mL/min; POTASSIUM,K 3.5 mmol/L (3.5-5.1)
[2023-03-16 22:44] LABS: CARBON DIOXIDE,CO2 2.5 mmol/L (21.0-32.0)
[2023-03-17] MEDS: Pantoprazole 40 MG in Sodium Chloride 0.9% 10 ML IVPUSH SCH ×2 (01:05→23:43)
[2023-03-17 01:43] LABS: CALCIUM 8.7 mg/dL (8.5-10.1); CARBON DIOXIDE,CO2 11.3 mmol/L (21.0-32.0); CREATININE 1.2 mg/dL (0.6-1.0); EST CRCL DRUG DOSING (CG) 47.9 mL/min; POTASSIUM,K 3.4 mmol/L (3.5-5.1)
[2023-03-17] MEDS: D5 1/2 NS w/ 20 mEq/L KCl 1,000 ML IV SCH ×2 (02:17→07:17)
[2023-03-17 04:19] LABS: APPEARANCE,URINE CLEAR; BILIRUBIN,URINE NEGATIVE (NEGATIVE); COLOR,URINE YELLOW; GLUCOSE,URINE 500 mg/dL (NEGATIVE); KETONES,URINE >=80 mg/dL (NEGATIVE); LEUKOCYTE ESTERASE,URINE NEGATIVE (NEGATIVE); NITRITE,URINE NEGATIVE (NEGATIVE); OCCULT BLOOD,URINE MODERATE (NEGATIVE); PROTEIN,URINE NEGATIVE (NEGATIVE); UROBILINOGEN,URINE 0.2 EU/dL (<2.0)
[2023-03-17 04:24] LABS: AMPHETAMINES SCREEN, URINE NEGATIVE (CUTOFF=500); BARBITURATE SCREEN,URINE NEGATIVE (CUTOFF=200); BENZODIAZEPINES SCREEN,URINE PRESUMPTIVE POSITIVE (CUTOFF=150); BUPRENORPHINE SCREEN,URINE NEGATIVE (CUTOFF=10); METHADONE SCREEN, URINE NEGATIVE (CUTOFF=200); METHAMPHETAMINES SCREEN, URINE NEGATIVE (CUTOFF=500); OXYCODONE SCREEN,URINE NEGATIVE (CUT0FF=100); PCP SCREEN,URINE NEGATIVE (CUTOFF=25); PROPOXYPHENE SCREEN,URINE NEGATIVE (CUTOFF=300); THC SCREEN,URINE 20 NG/ML NEGATIVE (CUTOFF=50)
[2023-03-17 04:32] LABS: BACTERIA,URINE RARE (NEGATIVE); EPITHELIAL CELLS,URINE FEW (NONE-FEW); WBC,URINE 0-1 (0-5/HPF)
[2023-03-17] MEDS ORDERED: Acetaminophen 325 MG Tab PO PRN (05:28)
[2023-03-17] MEDS: Levothyroxine 150 MCG Tab PO SCH (06:41)
[2023-03-17] MEDS: Enoxaparin 40 MG/0.4 ML Syringe SUBCUT SCH (06:41)
[2023-03-17 08:00] LABS: HEMATOCRIT 30.9 % (36.0-46.0); HEMOGLOBIN 9.5 g/dL (12.0-16.0); MEAN CORPUSCULAR HEMOGLOBIN 24.8 pg (27.0-32.0); MEAN CORPUSCULAR HGB CONC 30.7 g/dL (31.0-37.0); MEAN CORPUSCULAR VOLUME 80.7 fL (80.0-98.0); MEAN PLATELET VOLUME 9.7 fL (7.40-12.00); RED BLOOD CELL COUNT 3.83 M/uL (4.30-5.90); WHITE BLOOD CELL COUNT,WBC 15.32 K/uL (4.0-11.0)
[2023-03-17] MEDS: levETIRAcetam 500 MG Tab PO SCH ×2 (08:01→20:07)
[2023-03-17 08:07] LABS: CALCIUM 8.1 mg/dL (8.5-10.1); CARBON DIOXIDE,CO2 18.4 mmol/L (21.0-32.0); CREATININE 1.2 mg/dL (0.6-1.0); EST CRCL DRUG DOSING (CG) 47.9 mL/min
[2023-03-17 08:31] LABS: TSH ULTRASENSITIVE 0.4 uIU/mL (0.36-3.74)
[2023-03-17] MEDS ORDERED: Sodium Chloride 0.9% 500 ML IV ONE (09:15)
[2023-03-17] MEDS: Potassium Chloride 100 ML IV SCH ×2 (09:23→11:39)
[2023-03-17] MEDS ORDERED: Morphine 2 MG/ML SYRINGE IVPUSH PRN (09:41)
[2023-03-17] MEDS ORDERED: 50% Dextrose in Water 50 ML Syringe IVPUSH PRN (10:37)
[2023-03-17] MEDS ORDERED: Glucagon,Human Recombinant 1 MG Vial IM PRN (10:37)
[2023-03-17] MEDS: HYDROmorphone 1 MG/ML Syringe IVPUSH PRN ×3 (10:47→23:50)
[2023-03-17] MEDS: Insulin Aspart 100 Units/ML 3 ML Pen SUBCUT SCH ×2 (11:39→17:06)
[2023-03-17 11:52] LABS: CALCIUM 8.1 mg/dL (8.5-10.1); CARBON DIOXIDE,CO2 19.5 mmol/L (21.0-32.0); EST CRCL DRUG DOSING (CG) 66.19 mL/min; POTASSIUM,K 3.4 mmol/L (3.5-5.1)
[2023-03-17 15:43] LABS: CALCIUM 7.7 mg/dL (8.5-10.1); CARBON DIOXIDE,CO2 17.3 mmol/L (21.0-32.0); EST CRCL DRUG DOSING (CG) 66.19 mL/min; POTASSIUM,K 3.2 mmol/L (3.5-5.1)
[2023-03-17] MEDS ORDERED: Potassium Chloride 20 MEQ Tab.ER PO ONE ×2 (15:59→16:01)
[2023-03-17] MEDS ORDERED: Potassium Chloride 100 ML IV SCH (16:00)
[2023-03-17] MEDS ORDERED: Insulin Glargine,Hum.Rec.Anlog 100 UNIT/ML 3 ML Pen SUBCUT SCH (19:00)
[2023-03-17 20:32] LABS: CALCIUM 7.9 mg/dL (8.5-10.1); CARBON DIOXIDE,CO2 19.1 mmol/L (21.0-32.0); CREATININE 0.8 mg/dL (0.6-1.0); EST CRCL DRUG DOSING (CG) 82.74 mL/min; POTASSIUM,K 3.7 mmol/L (3.5-5.1)
[2023-03-18] MEDS: HYDROmorphone 1 MG/ML Syringe IVPUSH PRN ×2 (04:12→08:18)
[2023-03-18] MEDS: Levothyroxine 150 MCG Tab PO SCH (06:29)
[2023-03-18] MEDS: Enoxaparin 40 MG/0.4 ML Syringe SUBCUT SCH (06:29)
[2023-03-18] MEDS: Insulin Aspart 100 Units/ML 3 ML Pen SUBCUT SCH ×2 (07:28→10:53)
[2023-03-18 08:05] LABS: BASOPHILS PERCENT AUTO 0.4 % (0.0-1.5); EOSINOPHILS ABSOLUTE AUTO 0.1 K/uL (0.0-0.7); EOSINOPHILS PERCENT AUTO 1.8 % (0.0-7.0); HEMATOCRIT 30.5 % (36.0-46.0); HEMOGLOBIN 9.3 g/dL (12.0-16.0); LYMPHOCYTES ABSOLUTE AUTO 3.3 K/uL (0.6-2.4); LYMPHOCYTES PERCENT AUTO 41.8 % (16.0-40.0); MEAN CORPUSCULAR HEMOGLOBIN 24.3 pg (27.0-32.0); MEAN CORPUSCULAR HGB CONC 30.5 g/dL (31.0-37.0); MEAN CORPUSCULAR VOLUME 79.6 fL (80.0-98.0); MONOCYTES ABSOLUTE AUTO 0.4 K/uL (0.0-0.8); MONOCYTES PERCENT AUTO 5.6 % (0.0-15.0); NEUTROPHILS ABSOLUTE AUTO 3.9 K/uL (1.4-5.7); NEUTROPHILS PERCENT AUTO 50.4 % (48.0-80.0); NRBC ABSOLUTE 0 K/uL; PLATELET COUNT,PLT 314 K/uL (150-400); RED BLOOD CELL COUNT 3.83 M/uL (4.30-5.90); WHITE BLOOD CELL COUNT,WBC 7.79 K/uL (4.0-11.0)
[2023-03-18] MEDS: levETIRAcetam 500 MG Tab PO SCH (08:13)
[2023-03-18 08:19] LABS: CARBON DIOXIDE,CO2 20.7 mmol/L (21.0-32.0); CREATININE 0.6 mg/dL (0.6-1.0); EST CRCL DRUG DOSING (CG) 110.32 mL/min; POTASSIUM,K 3.3 mmol/L (3.5-5.1)
[2023-03-18] MEDS ORDERED: Potassium Chloride 20 MEQ Tab.ER PO ONE (08:43)
[2023-03-18 13:04] VITALS: BP 121/69
[2023-03-18] MEDS ORDERED: Insulin Glargine,Hum.Rec.Anlog 100 UNIT/ML 3 ML Pen SUBCUT SCH (21:00)
== END 2023-03-18 13:40 | disposition home or self-care (01) | DRG 639 ==
LOC: MW.ED 16:23 → MW.ICU 19:10
PROVIDERS: ADMIT Internal Medicine; ATTEND Internal Medicine
PROC: 3E033VG Introduction of Insulin into Peripheral Vein, Percutaneous Approach (ICD-10-PCS; principal; 2023-03-16)
DX: E10.10 Type 1 diabetes mellitus with ketoacidosis without coma (principal); E78.00 Pure hypercholesterolemia, unspecified; J45.909 Unspecified asthma, uncomplicated; K59.09 Other constipation; G40.909 Epilepsy, unspecified, not intractable, without status epilepticus; Z20.822 Contact with and (suspected) exposure to COVID-19; R45.1 Restlessness and agitation; E10.43 Type 1 diabetes mellitus with diabetic autonomic (poly)neuropathy; K31.84 Gastroparesis; Z88.1 Allergy status to other antibiotic agents; Z88.8 Allergy status to other drugs, medicaments and biological substances; Z79.899 Other long term (current) drug therapy; Z88.5 Allergy status to narcotic agent; Z79.4 Long term (current) use of insulin; Z87.11 Personal history of peptic ulcer disease; Z87.81 Personal history of (healed) traumatic fracture; Z86.16 Personal history of COVID-19; Z90.89 Acquired absence of other organs; Z90.49 Acquired absence of other specified parts of digestive tract
CPT/HCPCS: 36415; 71045; 71045-26; 80048; 80053; 80305-QW; 80307; 81001; 82009; 82803; 82947; 83036; 83605; 83690; 83735; 84443; 84484; 84703; 85025; 85027; 93005; 93010; 96361; 96374; 96375; 99285-25; 99291; A9270-GY; C9113; J1170; J1650; J1815; J1815-GY; J2060; J2270; J2405; J3480; J3490; J7040; J7120; U0002

== ENCOUNTER 2023-04-15 09:11 | Inpatient (IN) | payer MEDICAID ==
[2023-04-15] MEDS ORDERED: Sodium Chloride 0.9% 1,000 ML IV ONE ×3 (09:13→10:43)
[2023-04-15] MEDS ORDERED: Lidocaine 1% with EPINEPHrine 1:100,000 20 ML MDV INJECT ONE (09:22)
[2023-04-15] MEDS ORDERED: Lidocaine 1% with EPINEPHrine 1:100,000 20 ML MDV ONE (09:24)
[2023-04-15 09:38] LABS: BASE EXCESS VENOUS -9.5 (-2.0-3.0); PH,VENOUS 7.31 (7.31-7.41)
[2023-04-15 09:41] LABS: BASOPHILS ABSOLUTE AUTO 0.08 K/uL (0.00-0.20); BASOPHILS PERCENT AUTO 0.8 % (0.0-1.0); EOSINOPHILS ABSOLUTE AUTO 0.05 K/uL (0.00-0.45); EOSINOPHILS PERCENT AUTO 0.5 % (0.0-6.0); HEMATOCRIT 37.1 % (37.0-47.0); HEMOGLOBIN 11.7 g/dL (12.0-16.0); IMMATURE GRAN ABSOLUTE AUTO 0.02 K/uL (0.00-0.05); IMMATURE GRAN PERCENT AUTO 0.2 % (0.0-0.4); LYMPHOCYTES ABSOLUTE AUTO 2.14 K/uL (1.00-4.80); MEAN CORPUSCULAR HGB CONC 31.5 g/dL (32.0-36.0); MEAN PLATELET VOLUME 10.6 fL (9.4-12.3); MONOCYTES ABSOLUTE AUTO 0.34 K/uL (0.00-0.80); MONOCYTES PERCENT AUTO 3.3 % (0.0-8.0); NEUTROPHILS ABSOLUTE AUTO 7.56 K/uL (1.80-7.70); NEUTROPHILS PERCENT AUTO 74.2 % (41.0-71.0); PLATELET COUNT,PLT 422 K/uL (150-400); RED BLOOD CELL COUNT 4.88 M/uL (4.10-5.30); WHITE BLOOD CELL COUNT,WBC 10.19 K/uL (3.9-11.3)
[2023-04-15 10:06] LABS: A/G RATIO 0.9 (0.9-1.6); ALANINE AMINOTRANSFERASE,ALT 20 IU/L (14-63); ALBUMIN 3.9 g/dL (3.4-5.0); ALKALINE PHOSPHATASE 152 U/L (46-116); ASPARTATE AMNIOTRANSFERASE,AST 14 IU/L (15-37); BILIRUBIN TOTAL 0.5 mg/dL (0.2-1.0); BLOOD UREA NITROGEN,BUN 21 mg/dL (7.0-18.0); CALCIUM 9.8 mg/dL (8.5-10.1); CARBON DIOXIDE,CO2 16.8 mmol/L (21.0-32.0); CHLORIDE,CL 95 mmol/L (98-107); CREATININE 0.9 mg/dL (0.6-1.0); EST CRCL DRUG DOSING (CG) 63.86 mL/min; GLUCOSE RANDOM 415 mg/dL (74-106); LIPASE 12 U/L (16-77); MAGNESIUM 1.7 mg/dL (1.8-2.4); PROTEIN TOTAL,TP 8.4 g/dL (6.4-8.2); SODIUM,NA 132 mmol/L (136-145)
[2023-04-15 10:07] LABS: ESTIMATED GFR 87 mL/min (>60); ETHANOL BLOOD MEDICAL < 3.0 mg/dL
[2023-04-15 10:08] LABS: LACTIC ACID 1.5 mmol/L (0.4-2.0)
[2023-04-15] MEDS ORDERED: droPERidol 5 MG/2 ML SDV IVPUSH ONE (10:20)
[2023-04-15 10:21] LABS: APPEARANCE,URINE CLEAR; BILIRUBIN,URINE NEGATIVE (NEGATIVE); COLOR,URINE YELLOW; GLUCOSE,URINE >=1000 mg/dL (NEGATIVE); KETONES,URINE >=80 mg/dL (NEGATIVE); LEUKOCYTE ESTERASE,URINE NEGATIVE (NEGATIVE); NITRITE,URINE NEGATIVE (NEGATIVE); OCCULT BLOOD,URINE NEGATIVE (NEGATIVE); PH,URINE 5.5 (5.0-8.0); PROTEIN,URINE NEGATIVE (NEGATIVE); UROBILINOGEN,URINE 0.2 EU/dL (<2.0)
[2023-04-15] MEDS ORDERED: HYDROmorphone 1 MG/ML Syringe IVPUSH ONE ×2 (10:21→14:25)
[2023-04-15 10:39] LABS: AMPHETAMINES SCREEN, URINE NEGATIVE (CUTOFF=500); BARBITURATE SCREEN,URINE NEGATIVE (CUTOFF=200); BENZODIAZEPINES SCREEN,URINE NEGATIVE (CUTOFF=150); BUPRENORPHINE SCREEN,URINE NEGATIVE (CUTOFF=10); METHADONE SCREEN, URINE NEGATIVE (CUTOFF=200); METHAMPHETAMINES SCREEN, URINE NEGATIVE (CUTOFF=500); OXYCODONE SCREEN,URINE NEGATIVE (CUT0FF=100); PCP SCREEN,URINE NEGATIVE (CUTOFF=25); PROPOXYPHENE SCREEN,URINE NEGATIVE (CUTOFF=300); THC SCREEN,URINE 20 NG/ML NEGATIVE (CUTOFF=50)
[2023-04-15] MEDS ORDERED: Insulin Regular in 0.9 % NACL 100 ML IV SCH ×3 (10:45→16:08)
[2023-04-15] MEDS: Potassium Chloride 100 ML IV SCH ×2 (11:10→14:13)
[2023-04-15] MEDS ORDERED: Sodium Chloride 0.9% 1,000 ML IV SCH (12:30)
[2023-04-15] MEDS ORDERED: Magnesium Sulfate/Water 2 GM in Premix Bag 1 BAG IV ONE ×2 (12:46→17:00)
[2023-04-15 14:13] LABS: CALCIUM 8.1 mg/dL (8.5-10.1); CARBON DIOXIDE,CO2 17.4 mmol/L (21.0-32.0); CREATININE 0.6 mg/dL (0.6-1.0); EST CRCL DRUG DOSING (CG) 95.79 mL/min; POTASSIUM,K 3.9 mmol/L (3.5-5.1)
[2023-04-15] MEDS: Pantoprazole 40 MG in Sodium Chloride 0.9% 10 ML IVPUSH SCH (14:13)
[2023-04-15] MEDS: Ondansetron 4 MG/2 ML SDV IVPUSH PRN (14:13)
[2023-04-15] MEDS ORDERED: Naloxone 0.4 MG/ML SDV IVPUSH PRN (14:25)
[2023-04-15] MEDS ORDERED: LORazepam 0.5 MG Tab PO PRN (15:24)
[2023-04-15] MEDS ORDERED: diphenhydrAMINE 25 MG Cap PO PRN (15:26)
[2023-04-15] MEDS: Dextrose 5%-0.45% NaCl 1,000 ML IV SCH ×2 (15:54→22:09)
[2023-04-15 18:46] LABS: CALCIUM 8.3 mg/dL (8.5-10.1); CARBON DIOXIDE,CO2 18.5 mmol/L (21.0-32.0); CREATININE 0.7 mg/dL (0.6-1.0); EST CRCL DRUG DOSING (CG) 82.11 mL/min
[2023-04-15] MEDS: HYDROmorphone 2 MG Tab PO PRN (19:15)
[2023-04-15] MEDS: Baclofen 10 MG Tab PO SCH (20:01)
[2023-04-15] MEDS: levETIRAcetam 500 MG Tab PO SCH (20:01)
[2023-04-15 23:23] LABS: CALCIUM 8.4 mg/dL (8.5-10.1); CARBON DIOXIDE,CO2 20.5 mmol/L (21.0-32.0); CREATININE 0.7 mg/dL (0.6-1.0); EST CRCL DRUG DOSING (CG) 82.11 mL/min; POTASSIUM,K 3.5 mmol/L (3.5-5.1)
[2023-04-16 03:21] LABS: CALCIUM 8.1 mg/dL (8.5-10.1); CARBON DIOXIDE,CO2 20.5 mmol/L (21.0-32.0); CREATININE 0.5 mg/dL (0.6-1.0); EST CRCL DRUG DOSING (CG) 114.95 mL/min; POTASSIUM,K 3.7 mmol/L (3.5-5.1)
[2023-04-16] MEDS: Dextrose 5%-0.45% NaCl 1,000 ML IV SCH ×2 (04:32→11:20)
[2023-04-16] MEDS ORDERED: Levothyroxine 150 MCG Tab PO SCH (07:30)
[2023-04-16] MEDS: Pantoprazole 40 MG in Sodium Chloride 0.9% 10 ML IVPUSH SCH (07:38)
[2023-04-16 08:06] LABS: BASOPHILS ABSOLUTE AUTO 0.05 K/uL (0.00-0.20); BASOPHILS PERCENT AUTO 0.5 % (0.0-1.0); EOSINOPHILS ABSOLUTE AUTO 0.11 K/uL (0.00-0.45); EOSINOPHILS PERCENT AUTO 1.2 % (0.0-6.0); HEMATOCRIT 33.1 % (37.0-47.0); HEMOGLOBIN 10.8 g/dL (12.0-16.0); IMMATURE GRAN ABSOLUTE AUTO 0.03 K/uL (0.00-0.05); IMMATURE GRAN PERCENT AUTO 0.3 % (0.0-0.4); LYMPHOCYTES PERCENT AUTO 27.3 % (24.0-44.0); MEAN CORPUSCULAR HEMOGLOBIN 24.4 pg (28.0-32.0); MEAN CORPUSCULAR HGB CONC 32.6 g/dL (32.0-36.0); MEAN CORPUSCULAR VOLUME 74.9 fL (83.0-99.0); MEAN PLATELET VOLUME 9.8 fL (9.4-12.3); MONOCYTES ABSOLUTE AUTO 0.44 K/uL (0.00-0.80); MONOCYTES PERCENT AUTO 4.8 % (0.0-8.0); NEUTROPHILS ABSOLUTE AUTO 6.03 K/uL (1.80-7.70); NEUTROPHILS PERCENT AUTO 65.9 % (41.0-71.0); PLATELET COUNT,PLT 371 K/uL (150-400); RED BLOOD CELL COUNT 4.42 M/uL (4.10-5.30); WHITE BLOOD CELL COUNT,WBC 9.16 K/uL (3.9-11.3)
[2023-04-16 08:38] LABS: A/G RATIO 0.9 (0.9-1.6); ALBUMIN 3.6 g/dL (3.4-5.0); BILIRUBIN TOTAL 0.2 mg/dL (0.2-1.0); CARBON DIOXIDE,CO2 22.2 mmol/L (21.0-32.0); CREATININE 0.7 mg/dL (0.6-1.0); EST CRCL DRUG DOSING (CG) 82.11 mL/min; POTASSIUM,K 3.6 mmol/L (3.5-5.1); PROTEIN TOTAL,TP 7.7 g/dL (6.4-8.2)
[2023-04-16] MEDS: Ondansetron 4 MG/2 ML SDV IVPUSH PRN (08:48)
[2023-04-16] MEDS: Baclofen 10 MG Tab PO SCH (08:48)
[2023-04-16] MEDS: levETIRAcetam 500 MG Tab PO SCH (08:49)
[2023-04-16] MEDS: HYDROmorphone 2 MG Tab PO PRN (08:58)
[2023-04-16] MEDS ORDERED: Glucagon,Human Recombinant 1 MG Vial IM PRN (09:54)
[2023-04-16] MEDS ORDERED: 50% Dextrose in Water 50 ML Syringe IVPUSH PRN (09:54)
[2023-04-16] MEDS ORDERED: Insulin Glargine,Hum.Rec.Anlog 100 UNIT/ML 3 ML Pen SUBCUT SCH (10:43)
[2023-04-16] MEDS: Insulin Aspart 100 Units/ML 3 ML Pen SUBCUT SCH ×2 (11:51→16:49)
[2023-04-16 11:57] LABS: CALCIUM 8.6 mg/dL (8.5-10.1); CARBON DIOXIDE,CO2 23.3 mmol/L (21.0-32.0); CREATININE 0.7 mg/dL (0.6-1.0); EST CRCL DRUG DOSING (CG) 82.11 mL/min; POTASSIUM,K 3.6 mmol/L (3.5-5.1)
[2023-04-16 13:50] LABS: HEMOGLOBIN A1C 10.1 %
[2023-04-16 15:59] LABS: CALCIUM 8.9 mg/dL (8.5-10.1); CARBON DIOXIDE,CO2 21.3 mmol/L (21.0-32.0); CREATININE 0.6 mg/dL (0.6-1.0); EST CRCL DRUG DOSING (CG) 95.79 mL/min; POTASSIUM,K 4.3 mmol/L (3.5-5.1)
[2023-04-16 16:01] VITALS: BP 122/84
[2023-04-16 17:33] VITALS: PULSE 87
== END 2023-04-16 17:45 | disposition home or self-care (01) | DRG 639 ==
LOC: MW.ED 09:11 → MW.ICU 12:13
PROVIDERS: ADMIT Family Medicine; ATTEND Family Medicine
PROC: 3E033VG Introduction of Insulin into Peripheral Vein, Percutaneous Approach (ICD-10-PCS; principal; 2023-04-15)
DX: E10.10 Type 1 diabetes mellitus with ketoacidosis without coma (principal); G40.909 Epilepsy, unspecified, not intractable, without status epilepticus; J45.909 Unspecified asthma, uncomplicated; F41.9 Anxiety disorder, unspecified; F32.A Depression, unspecified; Z20.822 Contact with and (suspected) exposure to COVID-19; K21.9 Gastro-esophageal reflux disease without esophagitis; T38.3X6A Underdosing of insulin and oral hypoglycemic [antidiabetic] drugs, initial encounter; S12.090S Other displaced fracture of first cervical vertebra, sequela; Z88.8 Allergy status to other drugs, medicaments and biological substances; Z88.1 Allergy status to other antibiotic agents; Z79.4 Long term (current) use of insulin; Z79.899 Other long term (current) drug therapy; Z87.81 Personal history of (healed) traumatic fracture; Z86.16 Personal history of COVID-19; Z90.89 Acquired absence of other organs; Z90.49 Acquired absence of other specified parts of digestive tract
CPT/HCPCS: 36415; 80048; 80053; 80305-QW; 80307; 81003; 82009; 82803; 82947; 83036; 83605; 83690; 83735; 84100; 84484; 84703; 85025; 93005; 93010; 96361; 96365; 96367; 96375; 99285-25; 99291; A9270-GY; C9113; J1170; J1790; J1815; J1815-GY; J1953; J2405; J3475; J3480; J3490; J7030; J7042; J7060; U0002

== ENCOUNTER 2023-06-09 17:08 | Inpatient (IN) | payer MEDICAID ==
[2023-06-09] MEDS ORDERED: Sodium Chloride 0.9% 1,000 ML IV ONE ×3 (17:10→20:15)
[2023-06-09] MEDS ORDERED: Ondansetron 4 MG/2 ML SDV IVPUSH ONE (17:17)
[2023-06-09] MEDS ORDERED: HYDROmorphone 1 MG/ML Syringe IVPUSH ONE (17:17)
[2023-06-09 17:48] LABS: APPEARANCE,URINE SLT CLOUDY; BILIRUBIN,URINE NEGATIVE (NEGATIVE); COLOR,URINE YELLOW; GLUCOSE,URINE >=1000 mg/dL (NEGATIVE); KETONES,URINE >=80 mg/dL (NEGATIVE); LEUKOCYTE ESTERASE,URINE NEGATIVE (NEGATIVE); NITRITE,URINE NEGATIVE (NEGATIVE); OCCULT BLOOD,URINE LARGE (NEGATIVE); PROTEIN,URINE NEGATIVE (NEGATIVE); UROBILINOGEN,URINE 0.2 EU/dL (<2.0)
[2023-06-09 17:58] LABS: BACTERIA,URINE RARE (NEGATIVE); EPITHELIAL CELLS,URINE FEW (NONE-FEW); MUCUS,URINE LIGHT (NONE-MOD); RBC,URINE TOO NUMEROUS TO CT (0-2/HPF)
[2023-06-09] MEDS ORDERED: HYDROmorphone 1 MG/ML Syringe IM ONE (18:11)
[2023-06-09 18:12] LABS: CORONAVIRUS COVID-19 NAA NEGATIVE (NEGATIVE); INFLUENZA A NAA NEGATIVE (NEGATIVE); INFLUENZA B NAA NEGATIVE (NEGATIVE); RESPIRATORY SYNCYTIAL VIR NAA NEGATIVE (NEGATIVE)
[2023-06-09] MEDS ORDERED: 50% Dextrose in Water 50 ML Syringe IVPUSH PRN (18:25)
[2023-06-09] MEDS ORDERED: Insulin Regular, Human 100 Units/ML 10 ML Vial SUBCUT ONE (18:25)
[2023-06-09] MEDS ORDERED: Glucagon,Human Recombinant 1 MG Vial IM PRN (18:25)
[2023-06-09] MEDS ORDERED: Midazolam 1 MG/ML 2 ML SDV IM ONE (18:42)
[2023-06-09] MEDS ORDERED: LORazepam 2 MG/ML SDV IM ONE ×2 (19:13→19:47)
[2023-06-09 19:54] LABS: BASE EXCESS VENOUS -18.4 (-2.0-3.0); MEAN CORPUSCULAR HEMOGLOBIN 22.3 pg (28.0-32.0); MEAN CORPUSCULAR HGB CONC 29.7 g/dL (32.0-36.0); MEAN CORPUSCULAR VOLUME 74.9 fL (83.0-99.0); MEAN PLATELET VOLUME 10.6 fL (9.4-12.3); PH,VENOUS 7.17 (7.31-7.41); PLATELET COUNT,PLT 469 K/uL (150-400); RED BLOOD CELL COUNT 4.94 M/uL (4.10-5.30); WHITE BLOOD CELL COUNT,WBC 21.81 K/uL (3.9-11.3)
[2023-06-09] MEDS ORDERED: Piperacillin/Tazobactam 4.5 GM in Sodium Chloride 0.9% 100 ML IV ONE (20:26)
[2023-06-09] MEDS ORDERED: Insulin Regular in 0.9 % NACL 100 ML IV SCH ×2 (20:30→23:30)
[2023-06-09 20:32] LABS: ALBUMIN 4.1 g/dL (3.4-5.0); BILIRUBIN TOTAL 0.6 mg/dL (0.2-1.0); CARBON DIOXIDE,CO2 11.8 mmol/L (21.0-32.0); CREATININE 1.4 mg/dL (0.6-1.0); EST CRCL DRUG DOSING (CG) 45.2 mL/min; POTASSIUM,K 5.8 mmol/L (3.5-5.1); PROTEIN TOTAL,TP 8.3 g/dL (6.4-8.2)
[2023-06-09 20:48] LABS: AMPHETAMINES SCREEN, URINE NEGATIVE (CUTOFF=500); BARBITURATE SCREEN,URINE NEGATIVE (CUTOFF=200); BENZODIAZEPINES SCREEN,URINE PRESUMPTIVE POSITIVE (CUTOFF=150); BUPRENORPHINE SCREEN,URINE NEGATIVE (CUTOFF=10); METHADONE SCREEN, URINE NEGATIVE (CUTOFF=200); METHAMPHETAMINES SCREEN, URINE NEGATIVE (CUTOFF=500); OXYCODONE SCREEN,URINE NEGATIVE (CUT0FF=100); PCP SCREEN,URINE NEGATIVE (CUTOFF=25); THC SCREEN,URINE 20 NG/ML NEGATIVE (CUTOFF=50)
[2023-06-09 20:50] LABS: LYMPHOCYTES ABSOLUTE MAN 1.74 K/uL (1.00-4.80); LYMPHOCYTES PERCENT MAN 8 % (24-44); MONOCYTES ABSOLUTE MAN 1.74 K/uL (0.00-0.80); MONOCYTES PERCENT MAN 8 % (0-8); SEG NEUTROPHILS ABSOLUTE MAN 18.32 K/uL (1.80-7.70); SEG NEUTROPHILS PERCENT MAN 84 % (41-71)
[2023-06-09] MEDS ORDERED: LORazepam 2 MG/ML SDV IVPUSH ONE (21:30)
[2023-06-09] MEDS ORDERED: LORazepam 2 MG/ML SDV ONE (21:30)
[2023-06-09] MEDS ORDERED: Iopamidol 755 MG/ML 500 ML Multipack Bottle IVPUSH ONE (21:35)
[2023-06-09] MEDS ORDERED: Dextrose 5%-0.45% NaCl 1,000 ML IV SCH (23:30)
[2023-06-09 23:36] LABS: CALCIUM 8.4 mg/dL (8.5-10.1); CARBON DIOXIDE,CO2 13.2 mmol/L (21.0-32.0); CREATININE 1.1 mg/dL (0.6-1.0); EST CRCL DRUG DOSING (CG) 57.53 mL/min; POTASSIUM,K 3.1 mmol/L (3.5-5.1)
[2023-06-10] MEDS ORDERED: Naloxone 0.4 MG/ML SDV IVPUSH PRN (00:36)
[2023-06-10] MEDS ORDERED: Acetaminophen 325 MG Tab PO PRN (00:42)
[2023-06-10] MEDS ORDERED: Ondansetron 4 MG/2 ML SDV IVPUSH PRN (00:42)
[2023-06-10] MEDS ORDERED: Albuterol/Ipratropium 3.0-0.5 MG/3 ML Neb Soln NEB PRN (00:42)
[2023-06-10] MEDS ORDERED: Sodium Chloride 0.9% 10 ML Syringe FLUSH PRN (00:42)
[2023-06-10] MEDS ORDERED: Sodium Chloride 0.9% 20 ML SDV IV PRN (00:42)
[2023-06-10] MEDS ORDERED: Sodium Chloride 0.9% 2.5 ML Syringe FLUSH PRN (00:42)
[2023-06-10] MEDS: Pantoprazole 40 MG in Sodium Chloride 0.9% 10 ML IVPUSH SCH ×2 (00:44→12:43)
[2023-06-10] MEDS ORDERED: Gabapentin 300 MG Cap PO PRN (00:46)
[2023-06-10] MEDS: Heparin Sodium 5,000 Units/ML Vial SUBCUT SCH ×3 (00:48→16:29)
[2023-06-10] MEDS: Potassium Chloride 100 ML IV SCH ×4 (00:56→10:21)
[2023-06-10] MEDS: D5 1/2 NS w/ 40 mEq/L KCl 1,000 ML IV SCH ×3 (01:38→10:34)
[2023-06-10] MEDS: HYDROmorphone 1 MG/ML Syringe IVPUSH PRN ×5 (02:46→22:56)
[2023-06-10 03:41] LABS: CALCIUM 8.4 mg/dL (8.5-10.1); CARBON DIOXIDE,CO2 19.8 mmol/L (21.0-32.0); EST CRCL DRUG DOSING (CG) 63.29 mL/min; POTASSIUM,K 3.7 mmol/L (3.5-5.1)
[2023-06-10 07:55] LABS: BASOPHILS ABSOLUTE AUTO 0.05 K/uL (0.00-0.20); BASOPHILS PERCENT AUTO 0.3 % (0.0-1.0); HEMATOCRIT 28.9 % (37.0-47.0); HEMOGLOBIN 9.1 g/dL (12.0-16.0); IMMATURE GRAN ABSOLUTE AUTO 0.31 K/uL (0.00-0.05); IMMATURE GRAN PERCENT AUTO 1.7 % (0.0-0.4); LYMPHOCYTES ABSOLUTE AUTO 2.86 K/uL (1.00-4.80); LYMPHOCYTES PERCENT AUTO 15.6 % (24.0-44.0); MEAN CORPUSCULAR HEMOGLOBIN 22.8 pg (28.0-32.0); MEAN CORPUSCULAR HGB CONC 31.5 g/dL (32.0-36.0); MEAN CORPUSCULAR VOLUME 72.3 fL (83.0-99.0); MONOCYTES ABSOLUTE AUTO 1.32 K/uL (0.00-0.80); MONOCYTES PERCENT AUTO 7.2 % (0.0-8.0); NEUTROPHILS ABSOLUTE AUTO 13.81 K/uL (1.80-7.70); NEUTROPHILS PERCENT AUTO 75.2 % (41.0-71.0); PLATELET COUNT,PLT 444 K/uL (150-400); WHITE BLOOD CELL COUNT,WBC 18.35 K/uL (3.9-11.3)
[2023-06-10 08:11] LABS: CALCIUM 8.6 mg/dL (8.5-10.1); CARBON DIOXIDE,CO2 18.8 mmol/L (21.0-32.0); CREATININE 0.9 mg/dL (0.6-1.0); EST CRCL DRUG DOSING (CG) 70.32 mL/min; POTASSIUM,K 4.3 mmol/L (3.5-5.1)
[2023-06-10 08:31] LABS: MAGNESIUM 1.6 mg/dL (1.8-2.4); PHOSPHORUS 2.6 mg/dL (2.6-4.7)
[2023-06-10] MEDS: levETIRAcetam 500 MG Tab PO SCH ×2 (08:53→21:12)
[2023-06-10] MEDS: Piperacillin/Tazobactam 4.5 GM in Sodium Chloride 0.9% 100 ML IV SCH ×2 (10:09→17:13)
[2023-06-10 11:58] LABS: CALCIUM 8.8 mg/dL (8.5-10.1); CARBON DIOXIDE,CO2 17.4 mmol/L (21.0-32.0); CREATININE 0.8 mg/dL (0.6-1.0); EST CRCL DRUG DOSING (CG) 79.11 mL/min; POTASSIUM,K 3.7 mmol/L (3.5-5.1)
[2023-06-10] MEDS ORDERED: 50% Dextrose in Water 50 ML Syringe IVPUSH PRN ×3 (13:54→22:39)
[2023-06-10] MEDS ORDERED: Glucagon,Human Recombinant 1 MG Vial IM PRN ×3 (13:54→22:39)
[2023-06-10] MEDS ORDERED: Insulin Glargine,Hum.Rec.Anlog 100 UNIT/ML 3 ML Pen SUBCUT STA (15:18)
[2023-06-10] MEDS ORDERED: Insulin Aspart 100 Units/ML 3 ML Pen SUBCUT SCH ×2 (15:24→21:00)
[2023-06-10] MEDS ORDERED: Magnesium Sulfate/Water 2 GM in Premix Bag 1 BAG IV ONE (15:30)
[2023-06-10 15:46] LABS: CALCIUM 8.6 mg/dL (8.5-10.1); CARBON DIOXIDE,CO2 19.4 mmol/L (21.0-32.0); CREATININE 0.7 mg/dL (0.6-1.0); EST CRCL DRUG DOSING (CG) 90.41 mL/min; POTASSIUM,K 3.8 mmol/L (3.5-5.1)
[2023-06-10] MEDS ORDERED: Insulin Regular, Human 100 Units/ML 10 ML Vial SUBCUT SCH (17:00)
[2023-06-10 18:36] LABS: CALCIUM 8.6 mg/dL (8.5-10.1); CARBON DIOXIDE,CO2 17.8 mmol/L (21.0-32.0); CREATININE 0.7 mg/dL (0.6-1.0); EST CRCL DRUG DOSING (CG) 90.41 mL/min; POTASSIUM,K 3.7 mmol/L (3.5-5.1)
[2023-06-10] MEDS ORDERED: Rosuvastatin 10 MG Tab PO SCH (21:00)
[2023-06-10] MEDS ORDERED: Insulin Glargine,Hum.Rec.Anlog 100 UNIT/ML 3 ML Pen SUBCUT SCH (21:00)
[2023-06-10] MEDS ORDERED: Insulin Aspart 100 Units/ML 3 ML Pen SUBCUT ONE (22:41)
[2023-06-11] MEDS: Heparin Sodium 5,000 Units/ML Vial SUBCUT SCH ×2 (00:59→07:39)
[2023-06-11] MEDS: Pantoprazole 40 MG in Sodium Chloride 0.9% 10 ML IVPUSH SCH (01:00)
[2023-06-11 01:09] LABS: CALCIUM 8.7 mg/dL (8.5-10.1); CARBON DIOXIDE,CO2 21.1 mmol/L (21.0-32.0); CREATININE 0.9 mg/dL (0.6-1.0); EST CRCL DRUG DOSING (CG) 70.32 mL/min; POTASSIUM,K 3.5 mmol/L (3.5-5.1)
[2023-06-11] MEDS: Piperacillin/Tazobactam 4.5 GM in Sodium Chloride 0.9% 100 ML IV SCH ×2 (01:30→09:06)
[2023-06-11] MEDS ORDERED: 50% Dextrose in Water 50 ML Syringe IVPUSH PRN ×2 (02:28→02:39)
[2023-06-11] MEDS ORDERED: Glucagon,Human Recombinant 1 MG Vial IM PRN ×2 (02:28→02:39)
[2023-06-11] MEDS ORDERED: Insulin Aspart 100 Units/ML 3 ML Pen SUBCUT ONE (02:29)
[2023-06-11] MEDS: HYDROmorphone 1 MG/ML Syringe IVPUSH PRN ×3 (04:02→13:12)
[2023-06-11 05:38] LABS: BASOPHILS ABSOLUTE AUTO 0.06 K/uL (0.00-0.20); BASOPHILS PERCENT AUTO 0.6 % (0.0-1.0); EOSINOPHILS ABSOLUTE AUTO 0.09 K/uL (0.00-0.45); EOSINOPHILS PERCENT AUTO 0.8 % (0.0-6.0); HEMATOCRIT 29.7 % (37.0-47.0); HEMOGLOBIN 9.4 g/dL (12.0-16.0); IMMATURE GRAN ABSOLUTE AUTO 0.02 K/uL (0.00-0.05); IMMATURE GRAN PERCENT AUTO 0.2 % (0.0-0.4); LYMPHOCYTES ABSOLUTE AUTO 3.01 K/uL (1.00-4.80); LYMPHOCYTES PERCENT AUTO 27.7 % (24.0-44.0); MEAN CORPUSCULAR HEMOGLOBIN 22.5 pg (28.0-32.0); MEAN CORPUSCULAR HGB CONC 31.6 g/dL (32.0-36.0); MEAN CORPUSCULAR VOLUME 71.2 fL (83.0-99.0); MEAN PLATELET VOLUME 9.8 fL (9.4-12.3); MONOCYTES ABSOLUTE AUTO 0.53 K/uL (0.00-0.80); MONOCYTES PERCENT AUTO 4.9 % (0.0-8.0); NEUTROPHILS ABSOLUTE AUTO 7.15 K/uL (1.80-7.70); NEUTROPHILS PERCENT AUTO 65.8 % (41.0-71.0); PLATELET COUNT,PLT 424 K/uL (150-400); RED BLOOD CELL COUNT 4.17 M/uL (4.10-5.30); WHITE BLOOD CELL COUNT,WBC 10.86 K/uL (3.9-11.3)
[2023-06-11 05:55] LABS: CALCIUM 8.7 mg/dL (8.5-10.1); CARBON DIOXIDE,CO2 22.3 mmol/L (21.0-32.0); CREATININE 0.7 mg/dL (0.6-1.0); EST CRCL DRUG DOSING (CG) 90.41 mL/min; MAGNESIUM 1.9 mg/dL (1.8-2.4); POTASSIUM,K 3.9 mmol/L (3.5-5.1)
[2023-06-11] MEDS ORDERED: Levothyroxine 150 MCG Tab PO SCH (07:30)
[2023-06-11] MEDS: Insulin Aspart 100 Units/ML 3 ML Pen SUBCUT SCH ×3 (07:35→11:54)
[2023-06-11 08:25] LABS: HEMOGLOBIN A1C 10.3 %
[2023-06-11] MEDS: levETIRAcetam 500 MG Tab PO SCH (09:03)
[2023-06-11] MEDS ORDERED: Pantoprazole 40 MG Tab.CR PO SCH (12:04)
[2023-06-11 12:35] VITALS: PULSE 111
[2023-06-11 13:17] VITALS: BP 120/84
[2023-06-12] MEDS ORDERED: Pantoprazole 40 MG Tab.CR PO SCH (09:00)
== END 2023-06-11 15:10 | disposition home or self-care (01) | DRG 638 ==
LOC: MW.ED 17:08 → MW.ICU 23:03
PROVIDERS: ADMIT Family Medicine; ATTEND Family Medicine
PROC: 02H633Z Insertion of Infusion Device into Right Atrium, Percutaneous Approach (ICD-10-PCS; principal; 2023-06-09)
DX: E10.10 Type 1 diabetes mellitus with ketoacidosis without coma (principal); N17.9 Acute kidney failure, unspecified; E86.0 Dehydration; F11.90 Opioid use, unspecified, uncomplicated; E10.43 Type 1 diabetes mellitus with diabetic autonomic (poly)neuropathy; K31.84 Gastroparesis; G40.909 Epilepsy, unspecified, not intractable, without status epilepticus; Z79.899 Other long term (current) drug therapy; Z91.148 Patient's other noncompliance with medication regimen for other reason; Z11.52 Encounter for screening for COVID-19; Z79.4 Long term (current) use of insulin; Z88.0 Allergy status to penicillin; Z88.8 Allergy status to other drugs, medicaments and biological substances; Z83.3 Family history of diabetes mellitus; Z56.0 Unemployment, unspecified; Z90.49 Acquired absence of other specified parts of digestive tract; Z98.890 Other specified postprocedural states
CPT/HCPCS: 0241U; 36415; 36556; 71045; 71045-26; 74177; 74177-26; 80048; 80053; 80305-QW; 81001; 82009; 82140; 82550; 82803; 82947; 83036; 83540; 83605; 83690; 83735; 84100; 84703; 85025; 87040; 93005; 93010; 96361; 96365; 96372; 96375; 99291; A9270-GY; C9113; J1170; J1644; J1815; J1815-GY; J2060; J2250; J2405; J2543; J3475; J3480; J3490; J7030; J7042; Q9967

== ENCOUNTER 2023-07-22 01:42 | Emergency (ER) | payer MEDICAID ==
[2023-07-22] MEDS ORDERED: Sodium Chloride 0.9% 2.5 ML Syringe FLUSH PRN (01:49)
[2023-07-22] MEDS ORDERED: HYDROmorphone 1 MG/ML Syringe IVPUSH ONE ×2 (01:49→06:29)
[2023-07-22] MEDS ORDERED: Naloxone 0.4 MG/ML SDV IVPUSH PRN (01:49)
[2023-07-22] MEDS ORDERED: Ondansetron 4 MG/2 ML SDV IVPUSH ONE (01:49)
[2023-07-22] MEDS ORDERED: Sodium Chloride 0.9% 1,000 ML IV ONE (01:49)
[2023-07-22] MEDS ORDERED: Sodium Chloride 0.9% 10 ML Syringe FLUSH PRN (01:49)
[2023-07-22 02:46] LABS: BASOPHILS ABSOLUTE AUTO 0.06 K/uL (0.00-0.20); BASOPHILS PERCENT AUTO 0.6 % (0.0-1.0); EOSINOPHILS ABSOLUTE AUTO 0.03 K/uL (0.00-0.45); EOSINOPHILS PERCENT AUTO 0.3 % (0.0-6.0); HEMATOCRIT 36.8 % (37.0-47.0); HEMOGLOBIN 11.2 g/dL (12.0-16.0); IMMATURE GRAN ABSOLUTE AUTO 0.02 K/uL (0.00-0.05); IMMATURE GRAN PERCENT AUTO 0.2 % (0.0-0.4); LYMPHOCYTES ABSOLUTE AUTO 1.76 K/uL (1.00-4.80); LYMPHOCYTES PERCENT AUTO 18.4 % (24.0-44.0); MEAN CORPUSCULAR HEMOGLOBIN 21.3 pg (28.0-32.0); MEAN CORPUSCULAR HGB CONC 30.4 g/dL (32.0-36.0); MEAN PLATELET VOLUME 9.5 fL (9.4-12.3); MONOCYTES ABSOLUTE AUTO 0.33 K/uL (0.00-0.80); MONOCYTES PERCENT AUTO 3.4 % (0.0-8.0); NEUTROPHILS ABSOLUTE AUTO 7.38 K/uL (1.80-7.70); NEUTROPHILS PERCENT AUTO 77.1 % (41.0-71.0); PLATELET COUNT,PLT 655 K/uL (150-400); RED BLOOD CELL COUNT 5.26 M/uL (4.10-5.30); WHITE BLOOD CELL COUNT,WBC 9.58 K/uL (3.9-11.3)
[2023-07-22 03:11] LABS: ALANINE AMINOTRANSFERASE,ALT 16 IU/L (14-63); ALBUMIN 3.9 g/dL (3.4-5.0); ALKALINE PHOSPHATASE 146 U/L (46-116); ASPARTATE AMNIOTRANSFERASE,AST 16 IU/L (15-37); BILIRUBIN TOTAL 0.3 mg/dL (0.2-1.0); BLOOD UREA NITROGEN,BUN 14 mg/dL (7.0-18.0); CARBON DIOXIDE,CO2 23.5 mmol/L (21.0-32.0); CHLORIDE,CL 97 mmol/L (98-107); CREATININE 0.7 mg/dL (0.6-1.0); EST CRCL DRUG DOSING (CG) 82.11 mL/min; GLUCOSE RANDOM 249 mg/dL (74-106); LIPASE 14 U/L (16-77); POTASSIUM,K 4.3 mmol/L (3.5-5.1); PROTEIN TOTAL,TP 8.5 g/dL (6.4-8.2); SODIUM,NA 134 mmol/L (136-145)
[2023-07-22 03:18] LABS: A/G RATIO 0.9 (0.9-1.6); ESTIMATED GFR 117 mL/min (>60)
[2023-07-22 03:20] LABS: APPEARANCE,URINE CLEAR; BILIRUBIN,URINE NEGATIVE (NEGATIVE); COLOR,URINE YELLOW; GLUCOSE,URINE >=1000 mg/dL (NEGATIVE); KETONES,URINE 15 mg/dL (NEGATIVE); LEUKOCYTE ESTERASE,URINE NEGATIVE (NEGATIVE); NITRITE,URINE NEGATIVE (NEGATIVE); OCCULT BLOOD,URINE NEGATIVE (NEGATIVE); PROTEIN,URINE NEGATIVE (NEGATIVE); UROBILINOGEN,URINE 0.2 EU/dL (<2.0)
[2023-07-22] MEDS ORDERED: Iopamidol 755 MG/ML 500 ML Multipack Bottle IVPUSH ONE (03:34)
[2023-07-22] MEDS ORDERED: HYDROmorphone 2 MG/ML Syringe IVPUSH ONE (03:37)
[2023-07-22] MEDS ORDERED: diphenhydrAMINE 50 MG/ML SDV IVPUSH ONE (03:37)
[2023-07-22 06:55] VITALS: BP 144/69; PULSE 107
== END 2023-07-22 06:51 | disposition home or self-care (01) ==
LOC: MW.ED 01:42
DX: K59.00 Constipation, unspecified (principal); F11.10 Opioid abuse, uncomplicated; E10.9 Type 1 diabetes mellitus without complications; Z79.4 Long term (current) use of insulin; J45.909 Unspecified asthma, uncomplicated; Z88.0 Allergy status to penicillin; Z88.8 Allergy status to other drugs, medicaments and biological substances; Z88.5 Allergy status to narcotic agent; Z88.6 Allergy status to analgesic agent; Z79.899 Other long term (current) drug therapy; Z86.16 Personal history of COVID-19
CPT/HCPCS: 36415; 74177; 80053; 81003; 82947; 83690; 84484; 84703; 85025; 93005; 96361; 96374; 96375; 96376; 99284; J1170; J1200; J2405; J3490; J7030; Q9967; 93010

== ENCOUNTER 2023-07-22 18:47 | Emergency (ER) | payer MEDICAID ==
[2023-07-22 18:55] VITALS: BP 131/82; PULSE 110
[2023-07-22] MEDS ORDERED: Magnesium Hydroxide 400 MG/5 ML Susp 30 ML Cup PO ONE (19:09)
[2023-07-22 19:29] LABS: BASOPHILS ABSOLUTE AUTO 0.05 K/uL (0.00-0.20); BASOPHILS PERCENT AUTO 0.5 % (0.0-1.0); EOSINOPHILS ABSOLUTE AUTO 0.05 K/uL (0.00-0.45); EOSINOPHILS PERCENT AUTO 0.5 % (0.0-6.0); HEMATOCRIT 35.1 % (37.0-47.0); HEMOGLOBIN 10.7 g/dL (12.0-16.0); IMMATURE GRAN ABSOLUTE AUTO 0.03 K/uL (0.00-0.05); IMMATURE GRAN PERCENT AUTO 0.3 % (0.0-0.4); LYMPHOCYTES ABSOLUTE AUTO 2.93 K/uL (1.00-4.80); MEAN CORPUSCULAR HEMOGLOBIN 21.3 pg (28.0-32.0); MEAN CORPUSCULAR HGB CONC 30.5 g/dL (32.0-36.0); MEAN CORPUSCULAR VOLUME 69.9 fL (83.0-99.0); MEAN PLATELET VOLUME 9.4 fL (9.4-12.3); MONOCYTES ABSOLUTE AUTO 0.61 K/uL (0.00-0.80); NEUTROPHILS ABSOLUTE AUTO 6.42 K/uL (1.80-7.70); NEUTROPHILS PERCENT AUTO 63.7 % (41.0-71.0); PLATELET COUNT,PLT 644 K/uL (150-400); RED BLOOD CELL COUNT 5.02 M/uL (4.10-5.30); WHITE BLOOD CELL COUNT,WBC 10.09 K/uL (3.9-11.3)
[2023-07-22 19:56] LABS: A/G RATIO 0.9 (0.9-1.6); ALBUMIN 3.6 g/dL (3.4-5.0); BILIRUBIN TOTAL 0.2 mg/dL (0.2-1.0); CALCIUM 9.2 mg/dL (8.5-10.1); CARBON DIOXIDE,CO2 21.5 mmol/L (21.0-32.0); CREATININE 0.7 mg/dL (0.6-1.0); EST CRCL DRUG DOSING (CG) 82.11 mL/min; POTASSIUM,K 3.8 mmol/L (3.5-5.1); PROTEIN TOTAL,TP 7.8 g/dL (6.4-8.2)
== END 2023-07-22 19:43 | disposition left against medical advice (07) ==
LOC: MW.ED 18:47
DX: Z72.89 Other problems related to lifestyle (principal); Z53.29 Procedure and treatment not carried out because of patient's decision for other reasons; E10.9 Type 1 diabetes mellitus without complications; Z79.899 Other long term (current) drug therapy; Z88.5 Allergy status to narcotic agent; Z88.6 Allergy status to analgesic agent; Z88.1 Allergy status to other antibiotic agents; Z88.8 Allergy status to other drugs, medicaments and biological substances; Z79.4 Long term (current) use of insulin
CPT/HCPCS: 36415; 80053; 85025; 99284; A9270; 99282

== ENCOUNTER 2023-07-29 17:41 | Observation (INO) | payer MEDICAID ==
[2023-07-29] MEDS ORDERED: Sodium Chloride 0.9% 1,000 ML IV ONE ×2 (17:43→22:35)
[2023-07-29] MEDS ORDERED: Ondansetron 4 MG/2 ML SDV IVPUSH ONE (17:43)
[2023-07-29] MEDS ORDERED: Doxycycline 100 MG Cap PO ONE (18:01)
[2023-07-29 19:05] LABS: BASOPHILS ABSOLUTE AUTO 0.07 K/uL (0.00-0.20); BASOPHILS PERCENT AUTO 0.6 % (0.0-1.0); EOSINOPHILS ABSOLUTE AUTO 0.15 K/uL (0.00-0.45); EOSINOPHILS PERCENT AUTO 1.3 % (0.0-6.0); HEMATOCRIT 33.2 % (37.0-47.0); HEMOGLOBIN 9.7 g/dL (12.0-16.0); IMMATURE GRAN ABSOLUTE AUTO 0.02 K/uL (0.00-0.05); IMMATURE GRAN PERCENT AUTO 0.2 % (0.0-0.4); LYMPHOCYTES ABSOLUTE AUTO 3.55 K/uL (1.00-4.80); LYMPHOCYTES PERCENT AUTO 30.6 % (24.0-44.0); MEAN CORPUSCULAR HEMOGLOBIN 20.8 pg (28.0-32.0); MEAN CORPUSCULAR HGB CONC 29.2 g/dL (32.0-36.0); MEAN CORPUSCULAR VOLUME 71.1 fL (83.0-99.0); MEAN PLATELET VOLUME 9.5 fL (9.4-12.3); MONOCYTES ABSOLUTE AUTO 0.78 K/uL (0.00-0.80); MONOCYTES PERCENT AUTO 6.7 % (0.0-8.0); NEUTROPHILS ABSOLUTE AUTO 7.02 K/uL (1.80-7.70); NEUTROPHILS PERCENT AUTO 60.6 % (41.0-71.0); PLATELET COUNT,PLT 460 K/uL (150-400); RED BLOOD CELL COUNT 4.67 M/uL (4.10-5.30); WHITE BLOOD CELL COUNT,WBC 11.59 K/uL (3.9-11.3)
[2023-07-29 19:25] LABS: HEMOGLOBIN A1C 10.9 %
[2023-07-29 19:30] LABS: A/G RATIO 0.9 (0.9-1.6); ALBUMIN 3.5 g/dL (3.4-5.0); BILIRUBIN TOTAL 0.3 mg/dL (0.2-1.0); CALCIUM 9.2 mg/dL (8.5-10.1); CARBON DIOXIDE,CO2 21.6 mmol/L (21.0-32.0); CREATININE 1.1 mg/dL (0.6-1.0); EST CRCL DRUG DOSING (CG) 60.17 mL/min; PHOSPHORUS 3.8 mg/dL (2.6-4.7); POTASSIUM,K 4.1 mmol/L (3.5-5.1); PROTEIN TOTAL,TP 7.4 g/dL (6.4-8.2)
[2023-07-29 19:46] LABS: BASE EXCESS VENOUS -2.7 (-2.0-3.0); PH,VENOUS 7.35 (7.31-7.41)
[2023-07-29 19:48] LABS: APPEARANCE,URINE CLEAR; COLOR,URINE YELLOW; GLUCOSE,URINE >=1000 mg/dL (NEGATIVE); KETONES,URINE 40 mg/dL (NEGATIVE); LEUKOCYTE ESTERASE,URINE NEGATIVE (NEGATIVE); NITRITE,URINE NEGATIVE (NEGATIVE); OCCULT BLOOD,URINE NEGATIVE (NEGATIVE); PROTEIN,URINE NEGATIVE (NEGATIVE); UROBILINOGEN,URINE 0.2 EU/dL (<2.0)
[2023-07-29 19:52] LABS: BILIRUBIN,URINE SMALL (NEGATIVE)
[2023-07-29] MEDS ORDERED: Iopamidol 755 MG/ML 500 ML Multipack Bottle IVPUSH ONE (21:12)
[2023-07-30 06:27] LABS: BASOPHILS ABSOLUTE AUTO 0.05 K/uL (0.00-0.20); BASOPHILS PERCENT AUTO 0.5 % (0.0-1.0); EOSINOPHILS ABSOLUTE AUTO 0.18 K/uL (0.00-0.45); EOSINOPHILS PERCENT AUTO 1.7 % (0.0-6.0); HEMATOCRIT 29.9 % (37.0-47.0); HEMOGLOBIN 8.9 g/dL (12.0-16.0); IMMATURE GRAN ABSOLUTE AUTO 0.03 K/uL (0.00-0.05); IMMATURE GRAN PERCENT AUTO 0.3 % (0.0-0.4); LYMPHOCYTES ABSOLUTE AUTO 3.53 K/uL (1.00-4.80); LYMPHOCYTES PERCENT AUTO 34.1 % (24.0-44.0); MEAN CORPUSCULAR HEMOGLOBIN 21.2 pg (28.0-32.0); MEAN CORPUSCULAR HGB CONC 29.8 g/dL (32.0-36.0); MEAN CORPUSCULAR VOLUME 71.2 fL (83.0-99.0); MEAN PLATELET VOLUME 9.6 fL (9.4-12.3); MONOCYTES ABSOLUTE AUTO 0.45 K/uL (0.00-0.80); MONOCYTES PERCENT AUTO 4.3 % (0.0-8.0); NEUTROPHILS ABSOLUTE AUTO 6.11 K/uL (1.80-7.70); NEUTROPHILS PERCENT AUTO 59.1 % (41.0-71.0); PLATELET COUNT,PLT 411 K/uL (150-400); WHITE BLOOD CELL COUNT,WBC 10.35 K/uL (3.9-11.3)
[2023-07-30 06:45] LABS: CALCIUM 8.1 mg/dL (8.5-10.1); CARBON DIOXIDE,CO2 20.6 mmol/L (21.0-32.0); CREATININE 0.8 mg/dL (0.6-1.0); EST CRCL DRUG DOSING (CG) 82.74 mL/min; POTASSIUM,K 3.9 mmol/L (3.5-5.1)
[2023-07-30] MEDS ORDERED: Ondansetron 4 MG/2 ML SDV IVPUSH PRN (07:37)
[2023-07-30] MEDS ORDERED: RIZATRIPTAN BENZOATE 5 MG PO PRN (07:42)
[2023-07-30] MEDS ORDERED: Promethazine 25 MG Tab PO PRN (07:42)
[2023-07-30] MEDS ORDERED: LORazepam 1 MG Tab PO PRN (07:42)
[2023-07-30] MEDS ORDERED: Levothyroxine 150 MCG Tab PO SCH (07:43)
[2023-07-30] MEDS ORDERED: HYDROmorphone 2 MG Tab PO PRN (08:28)
[2023-07-30] MEDS ORDERED: Non-Formulary Medication 1 Each (Budesonide/Formoterol Fumarate [Symbicort 160-4.5 Mcg Inh IH SCH (09:00)
[2023-07-30] MEDS ORDERED: Polyethylene Glycol 3350 Powder 17 GM Packet PO SCH (09:00)
[2023-07-30] MEDS ORDERED: Sennosides/Docusate Sodium 50-8.6 MG Tab PO SCH (09:00)
[2023-07-30] MEDS ORDERED: Omeprazole 20 MG Cap.CR PO SCH (09:00)
[2023-07-30] MEDS ORDERED: levETIRAcetam 500 MG Tab PO SCH (09:00)
[2023-07-30] MEDS ORDERED: Baclofen 10 MG Tab PO SCH (09:00)
[2023-07-30 13:40] VITALS: BP 125/76; PULSE 99
[2023-07-30] MEDS ORDERED: Rosuvastatin 10 MG Tab PO SCH (21:00)
== END 2023-07-30 13:30 | disposition home or self-care (01) ==
LOC: MW.ED 17:41 → MW.MS 22:34
PROVIDERS: ADMIT Internal Medicine; ATTEND Internal Medicine
DX: T42.4X1A Poisoning by benzodiazepines, accidental (unintentional), initial encounter (principal); T40.2X1A Poisoning by other opioids, accidental (unintentional), initial encounter; E86.0 Dehydration; E10.65 Type 1 diabetes mellitus with hyperglycemia; R41.82 Altered mental status, unspecified; I10 Essential (primary) hypertension; E78.00 Pure hypercholesterolemia, unspecified; E10.10 Type 1 diabetes mellitus with ketoacidosis without coma; D64.9 Anemia, unspecified; F41.9 Anxiety disorder, unspecified; K59.09 Other constipation; E03.9 Hypothyroidism, unspecified; F11.20 Opioid dependence, uncomplicated; Z79.899 Other long term (current) drug therapy; Z88.0 Allergy status to penicillin; Z88.1 Allergy status to other antibiotic agents; Z88.6 Allergy status to analgesic agent; Z88.8 Allergy status to other drugs, medicaments and biological substances
CPT/HCPCS: 36415; 36590; 70450; 74018; 74177; 80048; 80053; 81003; 82009; 82803; 82947; 83036; 83605; 83690; 83735; 84100; 85025; A9270; J2405; J7030; Q9967

== ENCOUNTER 2023-11-19 02:47 | Emergency (ER) | payer MEDICAID ==
[2023-11-19] MEDS: Sodium Chloride 0.9% 2.5 ML Syringe FLUSH PRN (02:57)
[2023-11-19] MEDS: Sodium Chloride 0.9% 10 ML Syringe FLUSH PRN (02:58)
[2023-11-19 03:06] LABS: BASOPHILS ABSOLUTE AUTO 0.04 K/uL (0.00-0.20); BASOPHILS PERCENT AUTO 0.4 % (0.0-1.0); EOSINOPHILS ABSOLUTE AUTO 0.17 K/uL (0.00-0.45); EOSINOPHILS PERCENT AUTO 1.5 % (0.0-6.0); HEMATOCRIT 27.7 % (37.0-47.0); HEMOGLOBIN 8.1 g/dL (12.0-16.0); IMMATURE GRAN ABSOLUTE AUTO 0.05 K/uL (0.00-0.05); IMMATURE GRAN PERCENT AUTO 0.5 % (0.0-0.4); LYMPHOCYTES ABSOLUTE AUTO 2.04 K/uL (1.00-4.80); LYMPHOCYTES PERCENT AUTO 18.5 % (24.0-44.0); MEAN CORPUSCULAR HEMOGLOBIN 19.8 pg (28.0-32.0); MEAN CORPUSCULAR HGB CONC 29.2 g/dL (32.0-36.0); MEAN CORPUSCULAR VOLUME 67.6 fL (83.0-99.0); MEAN PLATELET VOLUME 9.1 fL (9.4-12.3); MONOCYTES ABSOLUTE AUTO 0.62 K/uL (0.00-0.80); MONOCYTES PERCENT AUTO 5.6 % (0.0-8.0); NEUTROPHILS PERCENT AUTO 73.5 % (41.0-71.0); PLATELET COUNT,PLT 318 K/uL (150-400); WHITE BLOOD CELL COUNT,WBC 11.02 K/uL (3.9-11.3)
[2023-11-19 03:31] LABS: A/G RATIO 0.8 (0.9-1.6); ALBUMIN 2.9 g/dL (3.4-5.0); BILIRUBIN TOTAL 0.1 mg/dL (0.2-1.0); CALCIUM 8.1 mg/dL (8.5-10.1); CARBON DIOXIDE,CO2 23.3 mmol/L (21.0-32.0); CREATININE 0.7 mg/dL (0.6-1.0); EST CRCL DRUG DOSING (CG) 81.34 mL/min; POTASSIUM,K 2.8 mmol/L (3.5-5.1); PROTEIN TOTAL,TP 6.4 g/dL (6.4-8.2)
[2023-11-19] MEDS: Potassium Chloride 20 MEQ Tab.ER PO ONE (06:15)
[2023-11-19 06:23] VITALS: BP 94/52; PULSE 68
== END 2023-11-19 06:20 | disposition home or self-care (01) ==
LOC: MW.ED 02:47
DX: E10.649 Type 1 diabetes mellitus with hypoglycemia without coma (principal); E87.6 Hypokalemia; E78.00 Pure hypercholesterolemia, unspecified; I10 Essential (primary) hypertension; E03.9 Hypothyroidism, unspecified; Z90.49 Acquired absence of other specified parts of digestive tract; Z86.16 Personal history of COVID-19; Z88.8 Allergy status to other drugs, medicaments and biological substances; Z88.1 Allergy status to other antibiotic agents; Z75.8 Other problems related to medical facilities and other health care
CPT/HCPCS: 36415; 80053; 82947; 85025; 99285; A9270; J3490; 99282

== ENCOUNTER 2023-12-21 23:40 | Emergency (ER) | payer MEDICAID ==
[2023-12-22] MEDS: Sodium Chloride 0.9% 10 ML Syringe FLUSH PRN (00:29)
[2023-12-22] MEDS: Sodium Chloride 0.9% 2.5 ML Syringe FLUSH PRN (00:29)
[2023-12-22 00:56] LABS: BASOPHILS ABSOLUTE AUTO 0.08 K/uL (0.00-0.20); BASOPHILS PERCENT AUTO 0.4 % (0.0-1.0); EOSINOPHILS ABSOLUTE AUTO 0.12 K/uL (0.00-0.45); EOSINOPHILS PERCENT AUTO 0.6 % (0.0-6.0); HEMATOCRIT 30.3 % (37.0-47.0); HEMOGLOBIN 8.9 g/dL (12.0-16.0); IMMATURE GRAN ABSOLUTE AUTO 0.14 K/uL (0.00-0.05); IMMATURE GRAN PERCENT AUTO 0.7 % (0.0-0.4); LYMPHOCYTES ABSOLUTE AUTO 2.49 K/uL (1.00-4.80); LYMPHOCYTES PERCENT AUTO 12.7 % (24.0-44.0); MEAN CORPUSCULAR HEMOGLOBIN 19.6 pg (28.0-32.0); MEAN CORPUSCULAR HGB CONC 29.4 g/dL (32.0-36.0); MEAN CORPUSCULAR VOLUME 66.7 fL (83.0-99.0); MEAN PLATELET VOLUME 9.2 fL (9.4-12.3); MONOCYTES ABSOLUTE AUTO 1.25 K/uL (0.00-0.80); MONOCYTES PERCENT AUTO 6.4 % (0.0-8.0); NEUTROPHILS ABSOLUTE AUTO 15.55 K/uL (1.80-7.70); NEUTROPHILS PERCENT AUTO 79.2 % (41.0-71.0); PLATELET COUNT,PLT 385 K/uL (150-400); RED BLOOD CELL COUNT 4.54 M/uL (4.10-5.30); WHITE BLOOD CELL COUNT,WBC 19.63 K/uL (3.9-11.3)
[2023-12-22 01:23] LABS: A/G RATIO 0.9 (0.9-1.6); ALBUMIN 3.5 g/dL (3.4-5.0); BILIRUBIN TOTAL 0.1 mg/dL (0.2-1.0); CALCIUM 8.6 mg/dL (8.5-10.1); CARBON DIOXIDE,CO2 21.7 mmol/L (21.0-32.0); CREATININE 0.7 mg/dL (0.6-1.0); EST CRCL DRUG DOSING (CG) 81.34 mL/min; POTASSIUM,K 3.3 mmol/L (3.5-5.1); PROTEIN TOTAL,TP 7.5 g/dL (6.4-8.2)
[2023-12-22] MEDS: Sodium Chloride 0.9% 1,000 ML IV STA (02:10)
[2023-12-22 02:21] LABS: LIPASE 13 U/L (16-77); MAGNESIUM 1.7 mg/dL (1.8-2.4)
[2023-12-22 03:32] LABS: ACETAMINOPHEN <2.0 ug/mL; SALICYLATE 2.9 mg/dL (0.0-20.0)
[2023-12-22 06:26] VITALS: BP 100/60; PULSE 78
== END 2023-12-22 06:24 | disposition home or self-care (01) ==
LOC: MW.ED 23:40
DX: E10.649 Type 1 diabetes mellitus with hypoglycemia without coma (principal); I10 Essential (primary) hypertension; E78.00 Pure hypercholesterolemia, unspecified; E03.9 Hypothyroidism, unspecified; Z88.0 Allergy status to penicillin; Z88.6 Allergy status to analgesic agent; Z88.5 Allergy status to narcotic agent; Z88.8 Allergy status to other drugs, medicaments and biological substances; Z90.49 Acquired absence of other specified parts of digestive tract; Z75.8 Other problems related to medical facilities and other health care
CPT/HCPCS: 36415; 70450; 80053; 80143; 80179; 80307; 82947; 83690; 83735; 84484; 84703; 85025; 93005; 96360; 99285; J3490; J7030; 93010; 99283

== ENCOUNTER 2024-01-20 22:32 | Emergency (ER) | payer MEDICAID ==
[2024-01-20] MEDS: Sodium Chloride 0.9% 2.5 ML Syringe FLUSH PRN (22:53)
[2024-01-20] MEDS: Sodium Chloride 0.9% 1,000 ML IV ONE (22:53)
[2024-01-20] MEDS: Sodium Chloride 0.9% 10 ML Syringe FLUSH PRN (22:53)
[2024-01-20 22:54] LABS: BILIRUBIN,URINE NEGATIVE (NEGATIVE); COLOR,URINE YELLOW; GLUCOSE,URINE >=1000 mg/dL (NEGATIVE); KETONES,URINE 40 mg/dL (NEGATIVE); LEUKOCYTE ESTERASE,URINE NEGATIVE (NEGATIVE); NITRITE,URINE NEGATIVE (NEGATIVE); OCCULT BLOOD,URINE TRACE-INTACT (NEGATIVE); PROTEIN,URINE NEGATIVE (NEGATIVE); UROBILINOGEN,URINE 0.2 EU/dL (<2.0)
[2024-01-20 22:56] LABS: APPEARANCE,URINE HAZY
[2024-01-20 23:02] LABS: RBC,URINE 0-2 (0-2/HPF); WBC,URINE 0-1 (0-5/HPF)
[2024-01-20 23:03] LABS: BACTERIA,URINE FEW (NEGATIVE); EPITHELIAL CELLS,URINE MODERATE (NONE-FEW)
[2024-01-20 23:49] LABS: BASE EXCESS VENOUS -7.6 (-2.0-3.0); PH,VENOUS 7.31 (7.31-7.41)
[2024-01-20 23:51] LABS: BASOPHILS ABSOLUTE AUTO 0.07 K/uL (0.00-0.20); BASOPHILS PERCENT AUTO 0.7 % (0.0-1.0); EOSINOPHILS ABSOLUTE AUTO 0.18 K/uL (0.00-0.45); EOSINOPHILS PERCENT AUTO 1.9 % (0.0-6.0); HEMATOCRIT 30.3 % (37.0-47.0); HEMOGLOBIN 8.6 g/dL (12.0-16.0); IMMATURE GRAN ABSOLUTE AUTO 0.02 K/uL (0.00-0.05); IMMATURE GRAN PERCENT AUTO 0.2 % (0.0-0.4); LYMPHOCYTES ABSOLUTE AUTO 2.55 K/uL (1.00-4.80); LYMPHOCYTES PERCENT AUTO 27.1 % (24.0-44.0); MEAN CORPUSCULAR HGB CONC 28.4 g/dL (32.0-36.0); MEAN CORPUSCULAR VOLUME 70.5 fL (83.0-99.0); MONOCYTES ABSOLUTE AUTO 0.49 K/uL (0.00-0.80); MONOCYTES PERCENT AUTO 5.2 % (0.0-8.0); NEUTROPHILS PERCENT AUTO 64.9 % (41.0-71.0); PLATELET COUNT,PLT 390 K/uL (150-400); WHITE BLOOD CELL COUNT,WBC 9.41 K/uL (3.9-11.3)
[2024-01-21 00:24] LABS: ALBUMIN 3.4 g/dL (3.4-5.0); BILIRUBIN TOTAL 0.3 mg/dL (0.2-1.0); CALCIUM 8.3 mg/dL (8.5-10.1); CARBON DIOXIDE,CO2 19.4 mmol/L (21.0-32.0); EST CRCL DRUG DOSING (CG) 56.94 mL/min; POTASSIUM,K 3.6 mmol/L (3.5-5.1); PROTEIN TOTAL,TP 6.8 g/dL (6.4-8.2)
[2024-01-21] MEDS ORDERED: 50% Dextrose in Water 50 ML Syringe IVPUSH PRN (00:34)
[2024-01-21] MEDS ORDERED: Glucagon,Human Recombinant 1 MG Vial IM PRN (00:34)
[2024-01-21] MEDS: Insulin Regular, Human 100 Units/ML 10 ML Vial IVPUSH ONE (01:40)
[2024-01-21 03:14] VITALS: BP 107/67; PULSE 78
== END 2024-01-21 03:14 | disposition home or self-care (01) ==
LOC: MW.ED 22:32
DX: E10.65 Type 1 diabetes mellitus with hyperglycemia (principal); E78.00 Pure hypercholesterolemia, unspecified; J45.909 Unspecified asthma, uncomplicated; E03.9 Hypothyroidism, unspecified; Z75.8 Other problems related to medical facilities and other health care; Z90.49 Acquired absence of other specified parts of digestive tract; Z79.899 Other long term (current) drug therapy; Z79.891 Long term (current) use of opiate analgesic; Z88.8 Allergy status to other drugs, medicaments and biological substances; Z88.0 Allergy status to penicillin
CPT/HCPCS: 36415; 80053; 81001; 81025; 82803; 82947; 85025; 93005; 96360; 99285; J1815; J3490; J7030; 93010; 99284

== ENCOUNTER 2024-03-13 15:33 | Emergency (ER) | payer MEDICAID ==
[2024-03-13 15:40] VITALS: BP 144/80; PULSE 141
== END 2024-03-13 16:54 | disposition home or self-care (01) ==
LOC: MW.ED 15:33
DX: T74.11XA Adult physical abuse, confirmed, initial encounter (principal); I10 Essential (primary) hypertension; E78.00 Pure hypercholesterolemia, unspecified; J45.909 Unspecified asthma, uncomplicated; E10.9 Type 1 diabetes mellitus without complications; E03.9 Hypothyroidism, unspecified; Z79.899 Other long term (current) drug therapy; Z79.4 Long term (current) use of insulin; Z88.0 Allergy status to penicillin; Z88.1 Allergy status to other antibiotic agents; Z88.5 Allergy status to narcotic agent; Z88.6 Allergy status to analgesic agent; Z88.8 Allergy status to other drugs, medicaments and biological substances; Y04.8XXA Assault by other bodily force, initial encounter; Y07.411 Sister, perpetrator of maltreatment and neglect
CPT/HCPCS: 99282; 99283

== ENCOUNTER 2024-04-06 22:24 | Inpatient (IN) | payer MEDICAID ==
[2024-04-06] MEDS: Sodium Chloride 0.9% 1,000 ML IV ONE (23:06)
[2024-04-06 23:39] LABS: BASOPHILS ABSOLUTE AUTO 0.07 K/uL (0.00-0.20); BASOPHILS PERCENT AUTO 0.9 % (0.0-1.0); EOSINOPHILS ABSOLUTE AUTO 0.03 K/uL (0.00-0.45); EOSINOPHILS PERCENT AUTO 0.4 % (0.0-6.0); HEMATOCRIT 42.9 % (37.0-47.0); HEMOGLOBIN 13.4 g/dL (12.0-16.0); IMMATURE GRAN ABSOLUTE AUTO 0.01 K/uL (0.00-0.05); IMMATURE GRAN PERCENT AUTO 0.1 % (0.0-0.4); LYMPHOCYTES ABSOLUTE AUTO 1.78 K/uL (1.00-4.80); LYMPHOCYTES PERCENT AUTO 22.1 % (24.0-44.0); MEAN CORPUSCULAR HEMOGLOBIN 26.7 pg (28.0-32.0); MEAN CORPUSCULAR HGB CONC 31.2 g/dL (32.0-36.0); MEAN CORPUSCULAR VOLUME 85.6 fL (83.0-99.0); MEAN PLATELET VOLUME 9.5 fL (9.4-12.3); MONOCYTES ABSOLUTE AUTO 0.33 K/uL (0.00-0.80); MONOCYTES PERCENT AUTO 4.1 % (0.0-8.0); NEUTROPHILS ABSOLUTE AUTO 5.83 K/uL (1.80-7.70); NEUTROPHILS PERCENT AUTO 72.4 % (41.0-71.0); PLATELET COUNT,PLT 282 K/uL (150-400); RED BLOOD CELL COUNT 5.01 M/uL (4.10-5.30); WHITE BLOOD CELL COUNT,WBC 8.05 K/uL (3.9-11.3)
[2024-04-07 00:01] LABS: ALBUMIN 3.9 g/dL (3.4-5.0); BILIRUBIN TOTAL 0.4 mg/dL (0.2-1.0); CALCIUM 9.6 mg/dL (8.5-10.1); CARBON DIOXIDE,CO2 15.3 mmol/L (21.0-32.0); EST CRCL DRUG DOSING (CG) 56.94 mL/min; POTASSIUM,K 4.5 mmol/L (3.5-5.1); PROTEIN TOTAL,TP 7.8 g/dL (6.4-8.2)
[2024-04-07] MEDS: Sodium Chloride 0.9% 1,000 ML IV ONE (00:24)
[2024-04-07] MEDS: Insulin Regular in 0.9 % NACL 100 ML IV SCH ×2 (00:24→10:00)
[2024-04-07] MEDS: Dextrose 5%-0.9% NaCl 1,000 ML IV SCH (02:41)
[2024-04-07 03:25] LABS: CALCIUM 8.5 mg/dL (8.5-10.1); CARBON DIOXIDE,CO2 15.9 mmol/L (21.0-32.0); EST CRCL DRUG DOSING (CG) 56.94 mL/min; POTASSIUM,K 3.6 mmol/L (3.5-5.1)
[2024-04-07] MEDS ORDERED: Potassium Chloride 10 MEQ in Premix Bag 1 BAG IV PRN (05:23)
[2024-04-07] MEDS ORDERED: Acetaminophen 650 MG Supp RECTAL PRN (05:25)
[2024-04-07] MEDS ORDERED: Melatonin 3 MG Tab PO PRN (05:25)
[2024-04-07] MEDS ORDERED: Polyethylene Glycol 3350 Powder 17 GM Packet PO PRN (05:25)
[2024-04-07] MEDS ORDERED: Acetaminophen 325 MG Tab PO PRN (05:25)
[2024-04-07 06:07] LABS: BASOPHILS ABSOLUTE AUTO 0.04 K/uL (0.00-0.20); BASOPHILS PERCENT AUTO 0.5 % (0.0-1.0); EOSINOPHILS ABSOLUTE AUTO 0.03 K/uL (0.00-0.45); EOSINOPHILS PERCENT AUTO 0.3 % (0.0-6.0); HEMATOCRIT 39.1 % (37.0-47.0); HEMOGLOBIN 12.6 g/dL (12.0-16.0); IMMATURE GRAN ABSOLUTE AUTO 0.01 K/uL (0.00-0.05); IMMATURE GRAN PERCENT AUTO 0.1 % (0.0-0.4); LYMPHOCYTES PERCENT AUTO 36.3 % (24.0-44.0); MEAN CORPUSCULAR HEMOGLOBIN 26.8 pg (28.0-32.0); MEAN CORPUSCULAR HGB CONC 32.2 g/dL (32.0-36.0); MEAN CORPUSCULAR VOLUME 83.2 fL (83.0-99.0); MEAN PLATELET VOLUME 9.3 fL (9.4-12.3); MONOCYTES ABSOLUTE AUTO 0.57 K/uL (0.00-0.80); MONOCYTES PERCENT AUTO 6.5 % (0.0-8.0); NEUTROPHILS ABSOLUTE AUTO 4.96 K/uL (1.80-7.70); NEUTROPHILS PERCENT AUTO 56.3 % (41.0-71.0); PLATELET COUNT,PLT 303 K/uL (150-400); WHITE BLOOD CELL COUNT,WBC 8.81 K/uL (3.9-11.3)
[2024-04-07 06:56] LABS: CALCIUM 8.8 mg/dL (8.5-10.1); CARBON DIOXIDE,CO2 22.2 mmol/L (21.0-32.0); CREATININE 0.9 mg/dL (0.6-1.0); EST CRCL DRUG DOSING (CG) 63.26 mL/min; POTASSIUM,K 3.6 mmol/L (3.5-5.1)
[2024-04-07] MEDS: Formoterol/Mometasone 200-5 MCG 8.8 GM Inhaler INH SCH (08:38)
[2024-04-07] MEDS: POTASSIUM CHLORIDE 20 MEQ/100 ML IV SCH (08:40)
[2024-04-07] MEDS: Enoxaparin 40 MG/0.4 ML Syringe SUBCUT SCH (08:51)
[2024-04-07] MEDS: Pantoprazole 40 MG in Sodium Chloride 0.9% 10 ML IVPUSH SCH (08:51)
[2024-04-07] MEDS ORDERED: INSULIN LISPRO 100 UNIT/ML SUBCUT SCH (09:45)
[2024-04-07] MEDS: levETIRAcetam 500 MG Tab PO SCH (10:51)
[2024-04-07] MEDS: HYDROmorphone 2 MG Tab PO PRN (11:12)
[2024-04-07 11:44] LABS: CALCIUM 8.1 mg/dL (8.5-10.1); CARBON DIOXIDE,CO2 19.8 mmol/L (21.0-32.0); CREATININE 0.8 mg/dL (0.6-1.0); EST CRCL DRUG DOSING (CG) 71.17 mL/min
[2024-04-07] MEDS: Potassium Chloride 10 MEQ in Premix Bag 1 BAG IV SCH (14:14)
[2024-04-07 15:40] LABS: CALCIUM 8.1 mg/dL (8.5-10.1); CREATININE 0.7 mg/dL (0.6-1.0); EST CRCL DRUG DOSING (CG) 81.34 mL/min
[2024-04-07 15:48] LABS: CARBON DIOXIDE,CO2 21.7 mmol/L (21.0-32.0)
[2024-04-07] MEDS: D5 1/2 NS w/ 20 mEq/L KCl 1,000 ML IV SCH (16:04)
[2024-04-07 18:30] VITALS: PULSE 30
[2024-04-07 19:47] LABS: CARBON DIOXIDE,CO2 21.7 mmol/L (21.0-32.0); CREATININE 0.7 mg/dL (0.6-1.0); EST CRCL DRUG DOSING (CG) 81.34 mL/min
[2024-04-07] MEDS: Rosuvastatin 10 MG Tab PO SCH (20:13)
[2024-04-07] MEDS ORDERED: 50% Dextrose in Water 50 ML Syringe IVPUSH PRN (20:23)
[2024-04-07] MEDS ORDERED: Glucagon,Human Recombinant 1 MG Vial IM PRN (20:23)
[2024-04-08] MEDS: Insulin Aspart 100 Units/ML 3 ML Pen SUBCUT SCH (01:34)
[2024-04-08] MEDS: Insulin Aspart 100 Units/ML 3 ML Pen ONE (01:38)
[2024-04-08] MEDS: Ondansetron 4 MG/2 ML SDV IVPUSH PRN (03:38)
[2024-04-08 05:55] LABS: BASOPHILS ABSOLUTE AUTO 0.07 K/uL (0.00-0.20); BASOPHILS PERCENT AUTO 0.7 % (0.0-1.0); EOSINOPHILS ABSOLUTE AUTO 0.11 K/uL (0.00-0.45); EOSINOPHILS PERCENT AUTO 1.1 % (0.0-6.0); HEMATOCRIT 40.5 % (37.0-47.0); HEMOGLOBIN 13.1 g/dL (12.0-16.0); IMMATURE GRAN ABSOLUTE AUTO 0.03 K/uL (0.00-0.05); IMMATURE GRAN PERCENT AUTO 0.3 % (0.0-0.4); LYMPHOCYTES ABSOLUTE AUTO 2.33 K/uL (1.00-4.80); LYMPHOCYTES PERCENT AUTO 22.8 % (24.0-44.0); MEAN CORPUSCULAR HEMOGLOBIN 26.7 pg (28.0-32.0); MEAN CORPUSCULAR HGB CONC 32.3 g/dL (32.0-36.0); MEAN CORPUSCULAR VOLUME 82.7 fL (83.0-99.0); MEAN PLATELET VOLUME 9.6 fL (9.4-12.3); MONOCYTES ABSOLUTE AUTO 0.42 K/uL (0.00-0.80); MONOCYTES PERCENT AUTO 4.1 % (0.0-8.0); NEUTROPHILS ABSOLUTE AUTO 7.26 K/uL (1.80-7.70); PLATELET COUNT,PLT 263 K/uL (150-400); WHITE BLOOD CELL COUNT,WBC 10.22 K/uL (3.9-11.3)
[2024-04-08 06:28] LABS: ALBUMIN 3.4 g/dL (3.4-5.0); BILIRUBIN TOTAL 0.6 mg/dL (0.2-1.0); CALCIUM 8.6 mg/dL (8.5-10.1); CREATININE 0.7 mg/dL (0.6-1.0); EST CRCL DRUG DOSING (CG) 81.34 mL/min; POTASSIUM,K 3.9 mmol/L (3.5-5.1); PROTEIN TOTAL,TP 6.8 g/dL (6.4-8.2)
[2024-04-08] MEDS: Levothyroxine 150 MCG Tab PO SCH (08:24)
[2024-04-08 13:00] VITALS: BP 123/69
== END 2024-04-08 13:11 | disposition home or self-care (01) | DRG 638 ==
LOC: MW.ED 22:24 → MW.ICU 04-07 04:08
PROVIDERS: ADMIT Family Medicine; ATTEND Family Medicine
DX: E10.10 Type 1 diabetes mellitus with ketoacidosis without coma (principal); F11.20 Opioid dependence, uncomplicated; E78.00 Pure hypercholesterolemia, unspecified; I10 Essential (primary) hypertension; J45.909 Unspecified asthma, uncomplicated; G43.909 Migraine, unspecified, not intractable, without status migrainosus; E03.9 Hypothyroidism, unspecified; M81.0 Age-related osteoporosis without current pathological fracture; F41.9 Anxiety disorder, unspecified; K59.09 Other constipation; G89.4 Chronic pain syndrome; G40.909 Epilepsy, unspecified, not intractable, without status epilepticus; E10.43 Type 1 diabetes mellitus with diabetic autonomic (poly)neuropathy; K31.84 Gastroparesis; E87.8 Other disorders of electrolyte and fluid balance, not elsewhere classified; Z88.1 Allergy status to other antibiotic agents; Z88.8 Allergy status to other drugs, medicaments and biological substances; Z79.899 Other long term (current) drug therapy; Z79.4 Long term (current) use of insulin; Z90.49 Acquired absence of other specified parts of digestive tract; Z90.89 Acquired absence of other organs
CPT/HCPCS: 36415; 80048; 80053; 82947; 83735; 84100; 85025; 96360; 96361; 99291; 99292; A9270-GY; J1650; J1815; J1815-GY; J2405; J2470; J3480; J3490; J7030; J7042

== ENCOUNTER 2024-04-08 23:31 | Inpatient (IN) | payer MEDICAID ==
[2024-04-08] MEDS: Sodium Chloride 0.9% 1,000 ML IV ONE (23:40)
[2024-04-08 23:47] LABS: HEMATOCRIT 45.5 % (37.0-47.0); HEMOGLOBIN 13.3 g/dL (12.0-16.0); MEAN CORPUSCULAR HEMOGLOBIN 27.4 pg (28.0-32.0); MEAN CORPUSCULAR HGB CONC 29.2 g/dL (32.0-36.0); MEAN CORPUSCULAR VOLUME 93.8 fL (83.0-99.0); MEAN PLATELET VOLUME 9.9 fL (9.4-12.3); PLATELET COUNT,PLT 436 K/uL (150-400); RED BLOOD CELL COUNT 4.85 M/uL (4.10-5.30); WHITE BLOOD CELL COUNT,WBC 26.81 K/uL (3.9-11.3)
[2024-04-09 00:08] LABS: BILIRUBIN TOTAL 0.4 mg/dL (0.2-1.0)
[2024-04-09 00:17] LABS: LYMPHOCYTES ABSOLUTE MAN 1.34 K/uL (1.00-4.80); LYMPHOCYTES PERCENT MAN 5 % (24-44); MONOCYTES ABSOLUTE MAN 1.88 K/uL (0.00-0.80); MONOCYTES PERCENT MAN 7 % (0-8); SEG NEUTROPHILS ABSOLUTE MAN 23.59 K/uL (1.80-7.70); SEG NEUTROPHILS PERCENT MAN 88 % (41-71)
[2024-04-09] MEDS: Sodium Chloride 0.9% 1,000 ML IV STA (00:49)
[2024-04-09 01:02] LABS: A/G RATIO 1.1 (0.9-1.6); ALBUMIN 3.7 g/dL (3.4-5.0); CALCIUM 8.8 mg/dL (8.5-10.1); CARBON DIOXIDE,CO2 6.1 mmol/L (21.0-32.0); CREATININE 1.7 mg/dL (0.6-1.0); EST CRCL DRUG DOSING (CG) 33.49 mL/min; POTASSIUM,K 6.4 mmol/L (3.5-5.1); PROTEIN TOTAL,TP 7.2 g/dL (6.4-8.2)
[2024-04-09] MEDS: Insulin Regular in 0.9 % NACL 100 ML IV SCH ×2 (01:18→02:45)
[2024-04-09] MEDS: Insulin Regular in 0.9 % NACL 100 ML ONE (01:22)
[2024-04-09] MEDS: Sodium Chloride 0.9% 1,000 ML IV ONE (01:47)
[2024-04-09 04:20] LABS: CALCIUM 8.3 mg/dL (8.5-10.1); CREATININE 1.8 mg/dL (0.6-1.0); EST CRCL DRUG DOSING (CG) 31.63 mL/min; POTASSIUM,K 4.8 mmol/L (3.5-5.1)
[2024-04-09 04:26] LABS: CARBON DIOXIDE,CO2 2.5 mmol/L (21.0-32.0)
[2024-04-09 05:20] LABS: HEMATOCRIT 40.1 % (37.0-47.0); MEAN CORPUSCULAR HEMOGLOBIN 27.1 pg (28.0-32.0); MEAN CORPUSCULAR HGB CONC 29.9 g/dL (32.0-36.0); MEAN CORPUSCULAR VOLUME 90.5 fL (83.0-99.0); MEAN PLATELET VOLUME 9.5 fL (9.4-12.3); PLATELET COUNT,PLT 376 K/uL (150-400); RED BLOOD CELL COUNT 4.43 M/uL (4.10-5.30)
[2024-04-09 05:35] LABS: WHITE BLOOD CELL COUNT,WBC 34.36 K/uL (3.9-11.3)
[2024-04-09 05:36] LABS: SEG NEUTROPHILS ABSOLUTE MAN 27.14 K/uL (1.80-7.70); SEG NEUTROPHILS PERCENT MAN 79 % (41-71)
[2024-04-09 05:37] LABS: LYMPHOCYTES ABSOLUTE MAN 5.15 K/uL (1.00-4.80); LYMPHOCYTES PERCENT MAN 15 % (24-44); MONOCYTES ABSOLUTE MAN 2.06 K/uL (0.00-0.80); MONOCYTES PERCENT MAN 6 % (0-8)
[2024-04-09 05:42] LABS: CALCIUM 8.4 mg/dL (8.5-10.1); CREATININE 1.7 mg/dL (0.6-1.0); EST CRCL DRUG DOSING (CG) 33.49 mL/min
[2024-04-09 05:43] LABS: CARBON DIOXIDE,CO2 4.7 mmol/L (21.0-32.0)
[2024-04-09 05:44] LABS: MAGNESIUM 2.3 mg/dL (1.8-2.4); PHOSPHORUS 4.7 mg/dL (2.6-4.7)
[2024-04-09] MEDS: Sodium Chloride 0.9% 1,000 ML IV SCH (06:50)
[2024-04-09 09:28] LABS: APPEARANCE,URINE CLEAR; COLOR,URINE YELLOW; GLUCOSE,URINE 250 mg/dL (NEGATIVE); KETONES,URINE >=80 mg/dL (NEGATIVE); LEUKOCYTE ESTERASE,URINE NEGATIVE (NEGATIVE); NITRITE,URINE NEGATIVE (NEGATIVE); OCCULT BLOOD,URINE SMALL (NEGATIVE); PROTEIN,URINE NEGATIVE (NEGATIVE); UROBILINOGEN,URINE 0.2 EU/dL (<2.0)
[2024-04-09] MEDS: Dextrose 5%-0.9% NaCl 1,000 ML IV SCH (09:29)
[2024-04-09 09:33] LABS: BILIRUBIN,URINE SMALL (NEGATIVE)
[2024-04-09 09:38] LABS: AMPHETAMINES SCREEN, URINE NEGATIVE (CUTOFF=500); BACTERIA,URINE FEW (NEGATIVE); BARBITURATE SCREEN,URINE NEGATIVE (CUTOFF=200); BENZODIAZEPINES SCREEN,URINE PRESUMPTIVE POSITIVE (CUTOFF=150); BUPRENORPHINE SCREEN,URINE NEGATIVE (CUTOFF=10); EPITHELIAL CELLS,URINE FEW (NONE-FEW); METHADONE SCREEN, URINE NEGATIVE (CUTOFF=200); METHAMPHETAMINES SCREEN, URINE NEGATIVE (CUTOFF=500); MUCUS,URINE LIGHT (NONE-MOD); OXYCODONE SCREEN,URINE NEGATIVE (CUT0FF=100); PCP SCREEN,URINE NEGATIVE (CUTOFF=25); RBC,URINE 0-2 (0-2/HPF); THC SCREEN,URINE 20 NG/ML NEGATIVE (CUTOFF=50); WBC,URINE 0-3 (0-5/HPF)
[2024-04-09] MEDS ORDERED: HYDROmorphone 2 MG Tab PO PRN (09:38)
[2024-04-09 09:58] LABS: CALCIUM 8.9 mg/dL (8.5-10.1); CARBON DIOXIDE,CO2 11.1 mmol/L (21.0-32.0); CREATININE 1.5 mg/dL (0.6-1.0); EST CRCL DRUG DOSING (CG) 37.96 mL/min
[2024-04-09 10:04] LABS: ETHANOL BLOOD MEDICAL < 3.0 mg/dL
[2024-04-09 10:05] LABS: POTASSIUM,K 4.1 mmol/L (3.5-5.1)
[2024-04-09 10:21] LABS: MAGNESIUM 2.3 mg/dL (1.8-2.4); PHOSPHORUS 3.2 mg/dL (2.6-4.7)
[2024-04-09] MEDS: Norepinephrine Bit/D5W Premix 250 ML IV SCH (11:30)
[2024-04-09 12:06] LABS: LACTIC ACID 0.7 mmol/L (0.4-2.0)
[2024-04-09] MEDS: Lactated Ringers 1,000 ML IV ONE (13:24)
[2024-04-09] MEDS: Sodium Bicarbonate 8.4% 50 MEQ/50 ML Syringe IVPUSH ONE (13:29)
[2024-04-09 13:52] LABS: CALCIUM 7.9 mg/dL (8.5-10.1); CARBON DIOXIDE,CO2 13.4 mmol/L (21.0-32.0); CREATININE 1.2 mg/dL (0.6-1.0); EST CRCL DRUG DOSING (CG) 47.45 mL/min; POTASSIUM,K 3.5 mmol/L (3.5-5.1)
[2024-04-09] MEDS: Sodium Bicarbonate 8.4% 50 MEQ/50 ML Syringe ONE (14:05)
[2024-04-09] MEDS: Cefepime 2 GM in Sodium Chloride 0.9% 50 ML IV SCH ×2 (14:13→17:37)
[2024-04-09] MEDS: Azithromycin 500 MG in Sodium Chloride 0.9% 250 ML IV SCH ×2 (14:29→17:37)
[2024-04-09 16:37] LABS: CALCIUM 7.6 mg/dL (8.5-10.1); CARBON DIOXIDE,CO2 20.2 mmol/L (21.0-32.0); CREATININE 1.1 mg/dL (0.6-1.0); EST CRCL DRUG DOSING (CG) 51.76 mL/min; POTASSIUM,K 3.1 mmol/L (3.5-5.1)
[2024-04-09 16:54] LABS: TSH ULTRASENSITIVE 0.65 uIU/mL (0.36-3.74)
[2024-04-09 16:56] LABS: T3 FREE 0.45 pg/mL (2.18-3.98)
[2024-04-09] MEDS: Potassium Chloride 20 MEQ in Premix Bag 1 BAG IV SCH (17:35)
[2024-04-09] MEDS: Potassium Chloride 100 ML IV SCH (17:38)
[2024-04-09 20:41] LABS: CALCIUM 7.9 mg/dL (8.5-10.1); CARBON DIOXIDE,CO2 19.8 mmol/L (21.0-32.0); EST CRCL DRUG DOSING (CG) 56.94 mL/min; POTASSIUM,K 3.3 mmol/L (3.5-5.1)
[2024-04-10 01:16] LABS: CALCIUM 7.6 mg/dL (8.5-10.1); CARBON DIOXIDE,CO2 19.5 mmol/L (21.0-32.0); CREATININE 0.9 mg/dL (0.6-1.0); EST CRCL DRUG DOSING (CG) 63.26 mL/min; POTASSIUM,K 2.9 mmol/L (3.5-5.1)
[2024-04-10] MEDS: Potassium Chloride 20 MEQ in Premix Bag 1 BAG IV SCH ×2 (04:05→08:30)
[2024-04-10 04:13] LABS: BASOPHILS ABSOLUTE AUTO 0.02 K/uL (0.00-0.20); BASOPHILS PERCENT AUTO 0.2 % (0.0-1.0); EOSINOPHILS ABSOLUTE AUTO 0.02 K/uL (0.00-0.45); EOSINOPHILS PERCENT AUTO 0.2 % (0.0-6.0); HEMATOCRIT 29.9 % (37.0-47.0); IMMATURE GRAN ABSOLUTE AUTO 0.04 K/uL (0.00-0.05); IMMATURE GRAN PERCENT AUTO 0.3 % (0.0-0.4); LYMPHOCYTES ABSOLUTE AUTO 2.26 K/uL (1.00-4.80); LYMPHOCYTES PERCENT AUTO 19.4 % (24.0-44.0); MEAN CORPUSCULAR HEMOGLOBIN 27.3 pg (28.0-32.0); MEAN CORPUSCULAR HGB CONC 33.4 g/dL (32.0-36.0); MEAN CORPUSCULAR VOLUME 81.7 fL (83.0-99.0); MEAN PLATELET VOLUME 9.1 fL (9.4-12.3); MONOCYTES ABSOLUTE AUTO 0.52 K/uL (0.00-0.80); MONOCYTES PERCENT AUTO 4.5 % (0.0-8.0); NEUTROPHILS ABSOLUTE AUTO 8.78 K/uL (1.80-7.70); NEUTROPHILS PERCENT AUTO 75.4 % (41.0-71.0); PLATELET COUNT,PLT 224 K/uL (150-400); RED BLOOD CELL COUNT 3.66 M/uL (4.10-5.30); WHITE BLOOD CELL COUNT,WBC 11.64 K/uL (3.9-11.3)
[2024-04-10 04:33] LABS: CALCIUM 7.7 mg/dL (8.5-10.1); CARBON DIOXIDE,CO2 20.8 mmol/L (21.0-32.0); CREATININE 0.8 mg/dL (0.6-1.0); EST CRCL DRUG DOSING (CG) 71.17 mL/min; POTASSIUM,K 2.6 mmol/L (3.5-5.1)
[2024-04-10] MEDS: Ondansetron 4 MG/2 ML SDV IVPUSH PRN (08:54)
[2024-04-10 09:36] LABS: CALCIUM 7.7 mg/dL (8.5-10.1); CARBON DIOXIDE,CO2 20.7 mmol/L (21.0-32.0); CREATININE 0.8 mg/dL (0.6-1.0); EST CRCL DRUG DOSING (CG) 71.17 mL/min; MAGNESIUM 1.6 mg/dL (1.8-2.4); POTASSIUM,K 3.1 mmol/L (3.5-5.1)
[2024-04-10] MEDS ORDERED: Potassium Chloride 100 ML IV SCH ×2 (10:15→19:00)
[2024-04-10] MEDS: Magnesium Sulfate/Water Premix 2 GM in Premix Bag 1 BAG IV ONE (10:45)
[2024-04-10] MEDS ORDERED: 50% Dextrose in Water 50 ML Syringe IVPUSH PRN (12:23)
[2024-04-10] MEDS ORDERED: Glucagon,Human Recombinant 1 MG Vial IM PRN (12:23)
[2024-04-10] MEDS: Insulin Aspart 100 Units/ML 3 ML Pen SUBCUT SCH (12:41)
[2024-04-10 13:15] LABS: CALCIUM 7.8 mg/dL (8.5-10.1); CARBON DIOXIDE,CO2 18.8 mmol/L (21.0-32.0); CREATININE 0.7 mg/dL (0.6-1.0); EST CRCL DRUG DOSING (CG) 81.34 mL/min; POTASSIUM,K 3.9 mmol/L (3.5-5.1)
[2024-04-10 18:35] LABS: CARBON DIOXIDE,CO2 24.8 mmol/L (21.0-32.0); CREATININE 0.6 mg/dL (0.6-1.0); EST CRCL DRUG DOSING (CG) 94.9 mL/min; POTASSIUM,K 3.1 mmol/L (3.5-5.1)
[2024-04-10] MEDS ORDERED: Potassium Chloride 20 MEQ Tab.ER PO ONE (18:49)
[2024-04-10] MEDS: Potassium Chloride 20 MEQ Tab.ER PO ONE (21:26)
[2024-04-10] MEDS: Loratadine 10 MG Tab PO ONE (21:26)
[2024-04-11 05:42] LABS: BASOPHILS ABSOLUTE AUTO 0.03 K/uL (0.00-0.20); BASOPHILS PERCENT AUTO 0.4 % (0.0-1.0); EOSINOPHILS ABSOLUTE AUTO 0.12 K/uL (0.00-0.45); EOSINOPHILS PERCENT AUTO 1.6 % (0.0-6.0); HEMATOCRIT 33.8 % (37.0-47.0); HEMOGLOBIN 11.3 g/dL (12.0-16.0); IMMATURE GRAN ABSOLUTE AUTO 0.02 K/uL (0.00-0.05); IMMATURE GRAN PERCENT AUTO 0.3 % (0.0-0.4); LYMPHOCYTES ABSOLUTE AUTO 3.59 K/uL (1.00-4.80); LYMPHOCYTES PERCENT AUTO 47.3 % (24.0-44.0); MEAN CORPUSCULAR HEMOGLOBIN 27.3 pg (28.0-32.0); MEAN CORPUSCULAR HGB CONC 33.4 g/dL (32.0-36.0); MEAN CORPUSCULAR VOLUME 81.6 fL (83.0-99.0); MEAN PLATELET VOLUME 8.9 fL (9.4-12.3); MONOCYTES ABSOLUTE AUTO 0.27 K/uL (0.00-0.80); MONOCYTES PERCENT AUTO 3.6 % (0.0-8.0); NEUTROPHILS ABSOLUTE AUTO 3.56 K/uL (1.80-7.70); NEUTROPHILS PERCENT AUTO 46.8 % (41.0-71.0); PLATELET COUNT,PLT 212 K/uL (150-400); RED BLOOD CELL COUNT 4.14 M/uL (4.10-5.30); WHITE BLOOD CELL COUNT,WBC 7.59 K/uL (3.9-11.3)
[2024-04-11 06:14] LABS: A/G RATIO 0.9 (0.9-1.6); ALBUMIN 2.9 g/dL (3.4-5.0); BILIRUBIN TOTAL 0.3 mg/dL (0.2-1.0); CALCIUM 8.3 mg/dL (8.5-10.1); CARBON DIOXIDE,CO2 26.2 mmol/L (21.0-32.0); CREATININE 0.6 mg/dL (0.6-1.0); EST CRCL DRUG DOSING (CG) 94.9 mL/min; POTASSIUM,K 3.8 mmol/L (3.5-5.1); PROTEIN TOTAL,TP 6.1 g/dL (6.4-8.2)
[2024-04-11] MEDS: Levothyroxine 150 MCG Tab PO SCH (07:46)
[2024-04-11 09:38] LABS: INR 1.07 (0.86-1.11)
[2024-04-11] MEDS: HYDROmorphone 2 MG Tab PO ONE (14:04)
[2024-04-11] MEDS ORDERED: HYDROmorphone 2 MG Tab PO PRN (19:25)
[2024-04-11 22:02] LABS: AMPHETAMINES Negative ng/mL (Cutoff 20); BARBITURATES Negative ng/mL (Cutoff 50); BENZODIAZEPINES Negative ng/mL (Cutoff 50); BUPRENORPHINE Negative ng/mL (Cutoff 1); CANNABINOIDS Negative ng/mL (Cutoff 20); COCAINE METABOLITES Negative ng/mL (Cutoff 20); METHADONE Negative ng/mL (Cutoff 25); METHAMPHETAMINE Negative ng/mL (Cutoff 20); OPIATES Positive ng/mL (Cutoff 20); OXYCODONE Negative ng/mL (Cutoff 20); PHENCYCLIDINE Negative ng/mL (Cutoff 10)
[2024-04-12 05:35] LABS: BASOPHILS ABSOLUTE AUTO 0.03 K/uL (0.00-0.20); BASOPHILS PERCENT AUTO 0.5 % (0.0-1.0); EOSINOPHILS ABSOLUTE AUTO 0.16 K/uL (0.00-0.45); EOSINOPHILS PERCENT AUTO 2.6 % (0.0-6.0); HEMATOCRIT 38.1 % (37.0-47.0); HEMOGLOBIN 12.6 g/dL (12.0-16.0); IMMATURE GRAN ABSOLUTE AUTO 0.01 K/uL (0.00-0.05); IMMATURE GRAN PERCENT AUTO 0.2 % (0.0-0.4); LYMPHOCYTES ABSOLUTE AUTO 2.83 K/uL (1.00-4.80); LYMPHOCYTES PERCENT AUTO 45.5 % (24.0-44.0); MEAN CORPUSCULAR HEMOGLOBIN 27.2 pg (28.0-32.0); MEAN CORPUSCULAR HGB CONC 33.1 g/dL (32.0-36.0); MEAN CORPUSCULAR VOLUME 82.1 fL (83.0-99.0); MEAN PLATELET VOLUME 8.9 fL (9.4-12.3); MONOCYTES ABSOLUTE AUTO 0.24 K/uL (0.00-0.80); MONOCYTES PERCENT AUTO 3.9 % (0.0-8.0); NEUTROPHILS ABSOLUTE AUTO 2.95 K/uL (1.80-7.70); NEUTROPHILS PERCENT AUTO 47.3 % (41.0-71.0); PLATELET COUNT,PLT 209 K/uL (150-400); RED BLOOD CELL COUNT 4.64 M/uL (4.10-5.30); WHITE BLOOD CELL COUNT,WBC 6.22 K/uL (3.9-11.3)
[2024-04-12 06:03] LABS: A/G RATIO 0.9 (0.9-1.6); ALBUMIN 3.1 g/dL (3.4-5.0); BILIRUBIN TOTAL 0.3 mg/dL (0.2-1.0); CALCIUM 9.1 mg/dL (8.5-10.1); CARBON DIOXIDE,CO2 26.3 mmol/L (21.0-32.0); CREATININE 0.6 mg/dL (0.6-1.0); EST CRCL DRUG DOSING (CG) 94.9 mL/min; POTASSIUM,K 3.9 mmol/L (3.5-5.1); PROTEIN TOTAL,TP 6.7 g/dL (6.4-8.2)
[2024-04-12 12:05] VITALS: BP 125/77; PULSE 77
[2024-04-12] MEDS ORDERED: levETIRAcetam 500 MG Tab PO SCH (21:00)
[2024-04-18 05:07] LABS: 6_AM,S/P,QNT <2 ng/mL; CODEINE,S/P,QNT <2 ng/mL; HYDROCODONE,S/P,QNT <2 ng/mL; HYDROMORPHONE,S/P,QNT 17 ng/mL; MORPHINE,S/P,QNT <2 ng/mL; OXYCODONE,S/P,QNT <2 ng/mL; OXYMORPHONE,S/P,QNT <2 ng/mL
== END 2024-04-12 12:52 | disposition home or self-care (01) | DRG 638 ==
LOC: MW.ED 23:31 → MW.ICU 04-09 01:19
PROVIDERS: ADMIT Family Medicine; ATTEND Family Medicine
PROC: 02HV33Z Insertion of Infusion Device into Superior Vena Cava, Percutaneous Approach (ICD-10-PCS; principal; 2024-04-09)
PROC: 3E03329 Introduction of Other Anti-infective into Peripheral Vein, Percutaneous Approach (ICD-10-PCS; 2024-04-09)
DX: E10.11 Type 1 diabetes mellitus with ketoacidosis with coma (principal); N17.9 Acute kidney failure, unspecified; E78.00 Pure hypercholesterolemia, unspecified; I10 Essential (primary) hypertension; E03.9 Hypothyroidism, unspecified; M81.0 Age-related osteoporosis without current pathological fracture; I95.9 Hypotension, unspecified; G43.909 Migraine, unspecified, not intractable, without status migrainosus; R56.9 Unspecified convulsions; J45.909 Unspecified asthma, uncomplicated; R74.01 Elevation of levels of liver transaminase levels; Z88.0 Allergy status to penicillin; Z88.5 Allergy status to narcotic agent; Z88.6 Allergy status to analgesic agent; Z79.4 Long term (current) use of insulin; Z90.49 Acquired absence of other specified parts of digestive tract; Z90.89 Acquired absence of other organs; Z79.899 Other long term (current) drug therapy; Z98.890 Other specified postprocedural states
CPT/HCPCS: 36415; 71045; 71045-26; 76700; 76700-26; 77001; 77001-26; 80048; 80053; 80143; 80305-QW; 80307; 81001; 82947; 83605; 83735; 84100; 84439; 84443; 84481; 85025; 85610; 87040; 99291; A9270-GY; G0480; J0456; J0692; J1815; J1815-GY; J1953; J2405; J3475; J3480; J3490; J7030; J7042; J7050; J7060; J7120

== ENCOUNTER 2024-09-22 23:39 | Observation (INO) | payer MEDICAID ==
[2024-09-23 00:21] LABS: BASE EXCESS VENOUS -3.7 (-2.0-3.0); PH,VENOUS 7.38 (7.32-7.43)
[2024-09-23 00:31] LABS: BASOPHILS ABSOLUTE AUTO 0.05 K/uL (0.00-0.20); BASOPHILS PERCENT AUTO 0.5 % (0.0-1.0); EOSINOPHILS ABSOLUTE AUTO 0.08 K/uL (0.00-0.45); EOSINOPHILS PERCENT AUTO 0.9 % (0.0-6.0); HEMATOCRIT 40.5 % (37.0-47.0); HEMOGLOBIN 12.9 g/dL (12.0-16.0); IMMATURE GRAN ABSOLUTE AUTO 0.03 K/uL (0.00-0.05); IMMATURE GRAN PERCENT AUTO 0.3 % (0.0-0.4); LYMPHOCYTES ABSOLUTE AUTO 3.61 K/uL (1.00-4.80); LYMPHOCYTES PERCENT AUTO 38.7 % (24.0-44.0); MEAN CORPUSCULAR HEMOGLOBIN 28.3 pg (28.0-32.0); MEAN CORPUSCULAR HGB CONC 31.9 g/dL (32.0-36.0); MEAN CORPUSCULAR VOLUME 88.8 fL (83.0-99.0); MEAN PLATELET VOLUME 9.8 fL (9.4-12.3); MONOCYTES ABSOLUTE AUTO 0.64 K/uL (0.00-0.80); MONOCYTES PERCENT AUTO 6.9 % (0.0-8.0); NEUTROPHILS ABSOLUTE AUTO 4.92 K/uL (1.80-7.70); NEUTROPHILS PERCENT AUTO 52.7 % (41.0-71.0); PLATELET COUNT,PLT 307 K/uL (150-400); RED BLOOD CELL COUNT 4.56 M/uL (4.10-5.30); WHITE BLOOD CELL COUNT,WBC 9.33 K/uL (3.9-11.3)
[2024-09-23 01:04] LABS: ALANINE AMINOTRANSFERASE,ALT 44 IU/L (14-63); ALBUMIN 3.7 g/dL (3.4-5.0); ALKALINE PHOSPHATASE 142 U/L (46-116); ASPARTATE AMNIOTRANSFERASE,AST 52 IU/L (15-37); BILIRUBIN TOTAL 0.2 mg/dL (0.2-1.0); BLOOD UREA NITROGEN,BUN 20 mg/dL (7.0-18.0); CALCIUM 9.1 mg/dL (8.5-10.1); CARBON DIOXIDE,CO2 21.7 mmol/L (21.0-32.0); CHLORIDE,CL 108 mmol/L (98-107); CREATININE 1.2 mg/dL (0.6-1.0); GLUCOSE RANDOM 134 mg/dL (74-106); POTASSIUM,K 3.1 mmol/L (3.5-5.1); PROTEIN TOTAL,TP 7.5 g/dL (6.4-8.2); SODIUM,NA 145 mmol/L (136-145)
[2024-09-23 01:05] LABS: ESTIMATED GFR 61 mL/min (>60)
[2024-09-23 01:22] LABS: APPEARANCE,URINE CLEAR; BILIRUBIN,URINE NEGATIVE (NEGATIVE); COLOR,URINE YELLOW; GLUCOSE,URINE >=1000 mg/dL (NEGATIVE); KETONES,URINE 40 mg/dL (NEGATIVE); LEUKOCYTE ESTERASE,URINE NEGATIVE (NEGATIVE); NITRITE,URINE NEGATIVE (NEGATIVE); OCCULT BLOOD,URINE TRACE-INTACT (NEGATIVE); PROTEIN,URINE NEGATIVE (NEGATIVE); UROBILINOGEN,URINE 0.2 EU/dL (<2.0)
[2024-09-23 01:31] LABS: AMPHETAMINES SCREEN, URINE NEGATIVE (CUTOFF=500); BARBITURATE SCREEN,URINE NEGATIVE (CUTOFF=200); BENZODIAZEPINES SCREEN,URINE PRESUMPTIVE POSITIVE (CUTOFF=150); BUPRENORPHINE SCREEN,URINE NEGATIVE (CUTOFF=10); METHADONE SCREEN, URINE NEGATIVE (CUTOFF=200); METHAMPHETAMINES SCREEN, URINE NEGATIVE (CUTOFF=500); OXYCODONE SCREEN,URINE NEGATIVE (CUT0FF=100); PCP SCREEN,URINE NEGATIVE (CUTOFF=25); THC SCREEN,URINE 20 NG/ML NEGATIVE (CUTOFF=50)
[2024-09-23 01:34] LABS: BACTERIA,URINE RARE (NEGATIVE); EPITHELIAL CELLS,URINE RARE (NONE-FEW); RBC,URINE 0-1 (0-2/HPF); WBC,URINE 0-2 (0-5/HPF)
[2024-09-23] MEDS: 50% Dextrose in Water 50 ML Syringe IVPUSH ONE (02:40)
[2024-09-23] MEDS: 50% Dextrose in Water 50 ML Syringe ONE (02:49)
[2024-09-23] MEDS: Dextrose 5%-0.9% NaCl 1,000 ML IV STA (03:30)
[2024-09-23] MEDS: NS with KCl 40mEq 1,000 ML IV ONE (06:14)
[2024-09-23] MEDS ORDERED: Promethazine 25 MG Tab PO PRN (07:11)
[2024-09-23] MEDS: Levothyroxine 150 MCG Tab PO SCH (08:18)
[2024-09-23] MEDS: levETIRAcetam 500 MG Tab PO SCH (09:30)
[2024-09-23] MEDS: Pantoprazole 40 MG Tab.CR PO SCH (09:30)
[2024-09-23] MEDS ORDERED: HYDROmorphone 2 MG Tab PO PRN (18:49)
[2024-09-23] MEDS: Rosuvastatin 10 MG Tab PO SCH (20:35)
[2024-09-24 06:01] LABS: BASOPHILS ABSOLUTE AUTO 0.04 K/uL (0.00-0.20); BASOPHILS PERCENT AUTO 0.6 % (0.0-1.0); EOSINOPHILS PERCENT AUTO 2.8 % (0.0-6.0); HEMATOCRIT 35.2 % (37.0-47.0); HEMOGLOBIN 11.1 g/dL (12.0-16.0); IMMATURE GRAN ABSOLUTE AUTO 0.01 K/uL (0.00-0.05); IMMATURE GRAN PERCENT AUTO 0.1 % (0.0-0.4); LYMPHOCYTES ABSOLUTE AUTO 3.77 K/uL (1.00-4.80); LYMPHOCYTES PERCENT AUTO 52.1 % (24.0-44.0); MEAN CORPUSCULAR HEMOGLOBIN 27.8 pg (28.0-32.0); MEAN CORPUSCULAR HGB CONC 31.5 g/dL (32.0-36.0); MEAN CORPUSCULAR VOLUME 88.2 fL (83.0-99.0); MEAN PLATELET VOLUME 9.8 fL (9.4-12.3); MONOCYTES ABSOLUTE AUTO 0.46 K/uL (0.00-0.80); MONOCYTES PERCENT AUTO 6.4 % (0.0-8.0); NEUTROPHILS ABSOLUTE AUTO 2.75 K/uL (1.80-7.70); PLATELET COUNT,PLT 247 K/uL (150-400); RED BLOOD CELL COUNT 3.99 M/uL (4.10-5.30); WHITE BLOOD CELL COUNT,WBC 7.23 K/uL (3.9-11.3)
[2024-09-24 06:42] LABS: A/G RATIO 0.9 (0.9-1.6); ALANINE AMINOTRANSFERASE,ALT 33 IU/L (14-63); ALBUMIN 2.8 g/dL (3.4-5.0); ALKALINE PHOSPHATASE 132 U/L (46-116); ASPARTATE AMNIOTRANSFERASE,AST 37 IU/L (15-37); BILIRUBIN TOTAL 0.4 mg/dL (0.2-1.0); BLOOD UREA NITROGEN,BUN 9 mg/dL (7.0-18.0); CALCIUM 7.9 mg/dL (8.5-10.1); CHLORIDE,CL 105 mmol/L (98-107); CREATININE 0.7 mg/dL (0.6-1.0); GLUCOSE RANDOM 131 mg/dL (74-106); POTASSIUM,K 3.8 mmol/L (3.5-5.1); SODIUM,NA 139 mmol/L (136-145)
[2024-09-24 06:44] LABS: ESTIMATED GFR 116 mL/min (>60)
[2024-09-24] MEDS: Polyethylene Glycol 3350 Powder 17 GM Packet PO SCH (08:53)
[2024-09-24] MEDS: Sennosides/Docusate Sodium 50-8.6 MG Tab PO ONE (08:53)
[2024-09-24 12:24] VITALS: BP 112/79; PULSE 80
== END 2024-09-24 13:32 | disposition home or self-care (01) ==
LOC: MW.ED 23:39 → MW.MS 09-23 04:37
PROVIDERS: ADMIT Internal Medicine; ATTEND Internal Medicine
DX: R41.82 Altered mental status, unspecified (principal); E10.649 Type 1 diabetes mellitus with hypoglycemia without coma; N17.9 Acute kidney failure, unspecified; K31.84 Gastroparesis; E03.9 Hypothyroidism, unspecified; E78.5 Hyperlipidemia, unspecified; Z79.4 Long term (current) use of insulin; Z88.8 Allergy status to other drugs, medicaments and biological substances; Z88.1 Allergy status to other antibiotic agents; Z79.899 Other long term (current) drug therapy; Z79.890 Hormone replacement therapy
CPT/HCPCS: 36415; 51702; 71045; 71045-26; 74018; 74018-26; 80053; 80305; 80307; 81001; 82803; 82947; 83735; 83880; 84484; 84703; 85025; 93005; 93010; 96365; 96366; 96375; 99222; 99239; 99285; 99285-25; A9270-GY; G0378; J3480; J7042

== ENCOUNTER 2025-04-28 17:10 | Inpatient (IN) | payer MEDICAID ==
[2025-04-28] MEDS ORDERED: Sodium Chloride 0.9% 10 ML Syringe FLUSH PRN (17:13)
[2025-04-28] MEDS ORDERED: Sodium Chloride 0.9% 2.5 ML Syringe FLUSH PRN (17:13)
[2025-04-28 17:42] LABS: APPEARANCE,URINE CLEAR; GLUCOSE,URINE >=1000 mg/dL (NEGATIVE); OCCULT BLOOD,URINE TRACE-INTACT (NEGATIVE)
[2025-04-28 17:51] LABS: SQUAMOUS EPITHELIAL CELLS,UR FEW
[2025-04-28 18:33] LABS: BASE EXCESS VENOUS -25.8 (-2.0-3.0); BICARBONATE,VENOUS 4.0 mEq/L (22-29); PCO2 VENOUS 17.0 mmHG (41-51); PH,VENOUS 6.99 (7.32-7.43); PO2 VENOUS 95.0 mmHG (35-45)
[2025-04-28 18:39] LABS: A/G RATIO 1.0 (0.9-1.6); ALANINE AMINOTRANSFERASE,ALT 32.0 IU/L (14-63); ASPARTATE AMNIOTRANSFERASE,AST 29.0 IU/L (15-37); BILIRUBIN TOTAL 0.7 mg/dL (0.2-1.0); BLOOD UREA NITROGEN,BUN 28.0 mg/dL (7.0-18.0); CHLORIDE,CL 97.0 mmol/L (98-107); CREATININE 1.4 mg/dL (0.6-1.0); EST CRCL DRUG DOSING (CG) 40.29 mL/min; POTASSIUM,K 5.6 mmol/L (3.5-5.1); PROTEIN TOTAL,TP 9.6 g/dL (6.4-8.2); SODIUM,NA 132.0 mmol/L (136-145)
[2025-04-28 18:44] LABS: ESTIMATED GFR 50.0 mL/min (>60)
[2025-04-28 19:14] LABS: CARBON DIOXIDE,CO2 4.7 mmol/L (21.0-32.0)
[2025-04-28] MEDS: Ondansetron 4 MG/2 ML SDV IVPUSH ONE (19:19)
[2025-04-28 19:22] LABS: BASOPHILS ABSOLUTE AUTO 0.07 K/uL (0.00-0.20); BASOPHILS PERCENT AUTO 0.5 % (0.0-1.0); EOSINOPHILS ABSOLUTE AUTO 0.01 K/uL (0.00-0.45); EOSINOPHILS PERCENT AUTO 0.1 % (0.0-6.0); IMMATURE GRAN ABSOLUTE AUTO 0.07 K/uL (0.00-0.05); IMMATURE GRAN PERCENT AUTO 0.5 % (0.0-0.4); LYMPHOCYTES ABSOLUTE AUTO 1.96 K/uL (1.00-4.80); LYMPHOCYTES PERCENT AUTO 13.7 % (24.0-44.0); MEAN PLATELET VOLUME 10.7 fL (9.4-12.3); MONOCYTES ABSOLUTE AUTO 0.43 K/uL (0.00-0.80); MONOCYTES PERCENT AUTO 3.0 % (0.0-8.0); NEUTROPHILS ABSOLUTE AUTO 11.79 K/uL (1.80-7.70); NEUTROPHILS PERCENT AUTO 82.2 % (41.0-71.0); NRBC ABSOLUTE 0.00 K/uL (0.00-0.02); NRBC PERCENT 0.0 /100WBC (0.0-0.2); PLATELET COUNT,PLT 414 K/uL (150-400); RED BLOOD CELL COUNT 4.62 M/uL (4.10-5.30); WHITE BLOOD CELL COUNT,WBC 14.33 K/uL (3.9-11.3)
[2025-04-28] MEDS ORDERED: 50% Dextrose in Water 50 ML Syringe IVPUSH PRN (19:24)
[2025-04-28] MEDS: Insulin Regular, Human 100 Units/ML 10 ML Vial IVPUSH ONE (19:32)
[2025-04-28 21:11] LABS: BICARBONATE,VENOUS 4.0 mEq/L (22-29); PCO2 VENOUS 25.0 mmHG (41-51); PH,VENOUS 6.83 (7.32-7.43); PO2 VENOUS 48.0 mmHG (35-45)
[2025-04-28 21:12] LABS: BASE EXCESS VENOUS -29.2 (-2.0-3.0)
[2025-04-28 21:24] LABS: LACTIC ACID 2.6 mmol/L (0.4-2.0)
[2025-04-28 21:35] LABS: BLOOD UREA NITROGEN,BUN 27.0 mg/dL (7.0-18.0); CHLORIDE,CL 107.0 mmol/L (98-107); CREATININE 1.3 mg/dL (0.6-1.0); EST CRCL DRUG DOSING (CG) 43.38 mL/min; POTASSIUM,K 4.1 mmol/L (3.5-5.1); SODIUM,NA 142.0 mmol/L (136-145)
[2025-04-28 21:38] LABS: CARBON DIOXIDE,CO2 3.1 mmol/L (21.0-32.0)
[2025-04-28 21:40] LABS: ESTIMATED GFR 55.0 mL/min (>60); GLUCOSE RANDOM 622.0 mg/dL (74-106)
[2025-04-28 22:12] LABS: PCO2 VENOUS 15.0 mmHG (41-51); PH,VENOUS 6.94 (7.32-7.43)
[2025-04-28 22:13] LABS: BASE EXCESS VENOUS -27.6 (-2.0-3.0); BICARBONATE,VENOUS 3.0 mEq/L (22-29); PO2 VENOUS 60.0 mmHG (35-45)
[2025-04-28 22:31] LABS: BLOOD UREA NITROGEN,BUN 25.0 mg/dL (7.0-18.0); CHLORIDE,CL 113.0 mmol/L (98-107); CREATININE 1.5 mg/dL (0.6-1.0); EST CRCL DRUG DOSING (CG) 37.6 mL/min; GLUCOSE RANDOM 427.0 mg/dL (74-106); POTASSIUM,K 3.2 mmol/L (3.5-5.1); SODIUM,NA 147.0 mmol/L (136-145)
[2025-04-28 22:40] LABS: CARBON DIOXIDE,CO2 3.4 mmol/L (21.0-32.0); ESTIMATED GFR 46.0 mL/min (>60)
[2025-04-29] MEDS ORDERED: Sodium Chloride 0.9% 10 ML Syringe FLUSH PRN (00:29)
[2025-04-29] MEDS ORDERED: Sodium Chloride 0.9% 2.5 ML Syringe FLUSH PRN (00:29)
[2025-04-29] MEDS ORDERED: Potassium Chloride 20 MEQ in Premix Bag 1 BAG IV SCH (01:45)
[2025-04-29 01:50] LABS: BLOOD UREA NITROGEN,BUN 23.0 mg/dL (7.0-18.0); CARBON DIOXIDE,CO2 10.9 mmol/L (21.0-32.0); CHLORIDE,CL 117.0 mmol/L (98-107); CREATININE 1.3 mg/dL (0.6-1.0); EST CRCL DRUG DOSING (CG) 43.38 mL/min; GLUCOSE RANDOM 272.0 mg/dL (74-106); POTASSIUM,K 3.7 mmol/L (3.5-5.1); SODIUM,NA 149.0 mmol/L (136-145)
[2025-04-29 01:51] LABS: ESTIMATED GFR 55.0 mL/min (>60)
[2025-04-29] MEDS: Ondansetron 4 MG/2 ML SDV IVPUSH PRN (02:24)
[2025-04-29 05:37] LABS: BASOPHILS ABSOLUTE AUTO 0.02 K/uL (0.00-0.20); BASOPHILS PERCENT AUTO 0.2 % (0.0-1.0); EOSINOPHILS ABSOLUTE AUTO 0.00 K/uL (0.00-0.45); EOSINOPHILS PERCENT AUTO 0.0 % (0.0-6.0); IMMATURE GRAN ABSOLUTE AUTO 0.06 K/uL (0.00-0.05); IMMATURE GRAN PERCENT AUTO 0.5 % (0.0-0.4); LYMPHOCYTES ABSOLUTE AUTO 1.13 K/uL (1.00-4.80); LYMPHOCYTES PERCENT AUTO 9.0 % (24.0-44.0); MEAN PLATELET VOLUME 10.3 fL (9.4-12.3); MONOCYTES ABSOLUTE AUTO 0.64 K/uL (0.00-0.80); MONOCYTES PERCENT AUTO 5.1 % (0.0-8.0); NEUTROPHILS ABSOLUTE AUTO 10.65 K/uL (1.80-7.70); NEUTROPHILS PERCENT AUTO 85.2 % (41.0-71.0); NRBC ABSOLUTE 0.00 K/uL (0.00-0.02); NRBC PERCENT 0.0 /100WBC (0.0-0.2); PLATELET COUNT,PLT 323 K/uL (150-400); RED BLOOD CELL COUNT 4.30 M/uL (4.10-5.30); WHITE BLOOD CELL COUNT,WBC 12.50 K/uL (3.9-11.3)
[2025-04-29 05:57] LABS: BLOOD UREA NITROGEN,BUN 23.0 mg/dL (7.0-18.0); CARBON DIOXIDE,CO2 11.0 mmol/L (21.0-32.0); CHLORIDE,CL 120.0 mmol/L (98-107); CREATININE 1.1 mg/dL (0.6-1.0); EST CRCL DRUG DOSING (CG) 51.27 mL/min; ESTIMATED GFR 67.0 mL/min (>60); GLUCOSE RANDOM 301.0 mg/dL (74-106); PHOSPHORUS 0.8 mg/dL (2.6-4.7); POTASSIUM,K 3.1 mmol/L (3.5-5.1); SODIUM,NA 152.0 mmol/L (136-145)
[2025-04-29] MEDS: Potassium Phosphates 30 MMOLE in Sodium Chloride 0.9% 500 ML IV ONE (08:03)
[2025-04-29] MEDS: Desvenlafaxine Succinate 25 MG TAB.ER PO SCH (08:09)
[2025-04-29] MEDS: Pantoprazole 40 MG in Sodium Chloride 0.9% 10 ML IVPUSH SCH (08:14)
[2025-04-29 09:52] LABS: BLOOD UREA NITROGEN,BUN 21.0 mg/dL (7.0-18.0); CARBON DIOXIDE,CO2 15.6 mmol/L (21.0-32.0); CHLORIDE,CL 117.0 mmol/L (98-107); CREATININE 1.1 mg/dL (0.6-1.0); EST CRCL DRUG DOSING (CG) 51.27 mL/min; GLUCOSE RANDOM 281.0 mg/dL (74-106); POTASSIUM,K 2.8 mmol/L (3.5-5.1); SODIUM,NA 134.0 mmol/L (136-145); TSH ULTRASENSITIVE 0.26 uIU/mL (0.36-3.74)
[2025-04-29 10:04] LABS: ESTIMATED GFR 67.0 mL/min (>60)
[2025-04-29 10:32] LABS: T4 FREE 2.1 ng/dL (0.76-1.46)
[2025-04-29] MEDS: Potassium Chloride 20 MEQ Tab.ER PO ONE ×3 (10:34→18:11)
[2025-04-29] MEDS: NS with KCl 40mEq 1,000 ML IV SCH (10:34)
[2025-04-29] MEDS: Thiamine 200 MG/2 ML MDV IV ONE (10:41)
[2025-04-29 12:27] LABS: BLOOD UREA NITROGEN,BUN 22.0 mg/dL (7.0-18.0); CARBON DIOXIDE,CO2 13.5 mmol/L (21.0-32.0); CHLORIDE,CL 117.0 mmol/L (98-107); CREATININE 0.9 mg/dL (0.6-1.0); EST CRCL DRUG DOSING (CG) 62.67 mL/min; GLUCOSE RANDOM 334.0 mg/dL (74-106); POTASSIUM,K 3.6 mmol/L (3.5-5.1); SODIUM,NA 149.0 mmol/L (136-145)
[2025-04-29 12:40] LABS: ESTIMATED GFR 86.0 mL/min (>60)
[2025-04-29 17:25] LABS: BLOOD UREA NITROGEN,BUN 18.0 mg/dL (7.0-18.0); CARBON DIOXIDE,CO2 16.0 mmol/L (21.0-32.0); CHLORIDE,CL 119.0 mmol/L (98-107); CREATININE 0.9 mg/dL (0.6-1.0); EST CRCL DRUG DOSING (CG) 62.67 mL/min; GLUCOSE RANDOM 198.0 mg/dL (74-106); POTASSIUM,K 3.1 mmol/L (3.5-5.1); SODIUM,NA 150.0 mmol/L (136-145)
[2025-04-29 17:28] LABS: ESTIMATED GFR 86.0 mL/min (>60)
[2025-04-29] MEDS: NS + KCl 20mEq/L 1,000 ML IV SCH (18:12)
[2025-04-29 18:52] VITALS: PULSE 100
[2025-04-29 20:24] LABS: BLOOD UREA NITROGEN,BUN 15.0 mg/dL (7.0-18.0); CARBON DIOXIDE,CO2 17.1 mmol/L (21.0-32.0); CHLORIDE,CL 119.0 mmol/L (98-107); CREATININE 0.8 mg/dL (0.6-1.0); EST CRCL DRUG DOSING (CG) 70.5 mL/min; GLUCOSE RANDOM 166.0 mg/dL (74-106); POTASSIUM,K 3.7 mmol/L (3.5-5.1); SODIUM,NA 149.0 mmol/L (136-145)
[2025-04-29 20:25] LABS: ESTIMATED GFR 98.0 mL/min (>60)
[2025-04-30 01:17] LABS: BLOOD UREA NITROGEN,BUN 11.0 mg/dL (7.0-18.0); CARBON DIOXIDE,CO2 15.9 mmol/L (21.0-32.0); CHLORIDE,CL 118.0 mmol/L (98-107); CREATININE 0.8 mg/dL (0.6-1.0); EST CRCL DRUG DOSING (CG) 70.5 mL/min; ESTIMATED GFR 98.0 mL/min (>60); GLUCOSE RANDOM 157.0 mg/dL (74-106); POTASSIUM,K 4.2 mmol/L (3.5-5.1); SODIUM,NA 148.0 mmol/L (136-145)
[2025-04-30] MEDS: POTASSIUM CHLORIDE IV SCH (03:19)
[2025-04-30 04:26] LABS: MEAN PLATELET VOLUME 10.1 fL (9.4-12.3); NRBC ABSOLUTE 0.00 K/uL (0.00-0.02); NRBC PERCENT 0.0 /100WBC (0.0-0.2); PLATELET COUNT,PLT 268 K/uL (150-400); RED BLOOD CELL COUNT 4.04 M/uL (4.10-5.30); WHITE BLOOD CELL COUNT,WBC 13.07 K/uL (3.9-11.3)
[2025-04-30 04:49] LABS: BLOOD UREA NITROGEN,BUN 10.0 mg/dL (7.0-18.0); CARBON DIOXIDE,CO2 18.8 mmol/L (21.0-32.0); CHLORIDE,CL 114.0 mmol/L (98-107); CREATININE 0.7 mg/dL (0.6-1.0); EST CRCL DRUG DOSING (CG) 80.57 mL/min; GLUCOSE RANDOM 161.0 mg/dL (74-106); POTASSIUM,K 3.7 mmol/L (3.5-5.1); SODIUM,NA 145.0 mmol/L (136-145)
[2025-04-30 04:50] LABS: ESTIMATED GFR 116.0 mL/min (>60)
[2025-04-30 04:53] LABS: PHOSPHORUS 1.6 mg/dL (2.6-4.7)
[2025-04-30 05:13] LABS: LYMPHOCYTES ABSOLUTE MAN 5.23 K/uL (1.00-4.80); LYMPHOCYTES PERCENT MAN 40 % (24-44); MONOCYTES ABSOLUTE MAN 0.39 K/uL (0.00-0.80); MONOCYTES PERCENT MAN 3 % (0-8); SEG NEUTROPHILS ABSOLUTE MAN 7.45 K/uL (1.80-7.70); SEG NEUTROPHILS PERCENT MAN 57 % (41-71)
[2025-04-30] MEDS ORDERED: Non-Formulary Medication 1 Each (Levothyroxine 175 MCG Tablet) PO SCH (07:30)
[2025-04-30 08:33] LABS: BLOOD UREA NITROGEN,BUN 7.0 mg/dL (7.0-18.0); CARBON DIOXIDE,CO2 20.6 mmol/L (21.0-32.0); CHLORIDE,CL 111.0 mmol/L (98-107); CREATININE 0.6 mg/dL (0.6-1.0); EST CRCL DRUG DOSING (CG) 94.0 mL/min; GLUCOSE RANDOM 193.0 mg/dL (74-106); POTASSIUM,K 4.1 mmol/L (3.5-5.1); SODIUM,NA 143.0 mmol/L (136-145)
[2025-04-30 09:04] LABS: ESTIMATED GFR 120.0 mL/min (>60)
[2025-04-30] MEDS ORDERED: 50% Dextrose in Water 50 ML Syringe IVPUSH PRN ×2 (09:28→09:29)
[2025-04-30] MEDS: Insulin Glargine,Human Rec. Analog 100 Units/ML 3 ML Pen SUBCUT ONE (09:55)
[2025-04-30] MEDS: Magnesium Sulfate 2 GM/50 mL 2 GM in Premix Bag 1 BAG IV ONE (09:55)
[2025-04-30] MEDS: Phosphorus #1 250 MG Tab PO SCH (11:28)
[2025-04-30 13:13] LABS: BLOOD UREA NITROGEN,BUN 8.0 mg/dL (7.0-18.0); CARBON DIOXIDE,CO2 20.4 mmol/L (21.0-32.0); CHLORIDE,CL 106.0 mmol/L (98-107); CREATININE 0.7 mg/dL (0.6-1.0); EST CRCL DRUG DOSING (CG) 80.57 mL/min; GLUCOSE RANDOM 243.0 mg/dL (74-106); POTASSIUM,K 3.6 mmol/L (3.5-5.1); SODIUM,NA 141.0 mmol/L (136-145)
[2025-04-30 13:20] LABS: ESTIMATED GFR 116.0 mL/min (>60)
[2025-04-30 17:01] LABS: BLOOD UREA NITROGEN,BUN 9.0 mg/dL (7.0-18.0); CARBON DIOXIDE,CO2 18.2 mmol/L (21.0-32.0); CHLORIDE,CL 104.0 mmol/L (98-107); CREATININE 0.7 mg/dL (0.6-1.0); EST CRCL DRUG DOSING (CG) 80.57 mL/min; GLUCOSE RANDOM 337.0 mg/dL (74-106); POTASSIUM,K 3.9 mmol/L (3.5-5.1); SODIUM,NA 137.0 mmol/L (136-145)
[2025-04-30 17:02] LABS: ESTIMATED GFR 116.0 mL/min (>60)
[2025-04-30 18:27] VITALS: BP 129/86
== END 2025-04-30 18:41 | disposition home or self-care (01) | DRG 638 ==
LOC: MW.ED 17:10 → MW.ICU 22:45
PROVIDERS: ADMIT Family Medicine; ATTEND Family Medicine
DX: E10.10 Type 1 diabetes mellitus with ketoacidosis without coma (principal); F11.20 Opioid dependence, uncomplicated; E78.00 Pure hypercholesterolemia, unspecified; J45.909 Unspecified asthma, uncomplicated; I10 Essential (primary) hypertension; M81.0 Age-related osteoporosis without current pathological fracture; E03.9 Hypothyroidism, unspecified; G43.909 Migraine, unspecified, not intractable, without status migrainosus; F41.9 Anxiety disorder, unspecified; F17.210 Nicotine dependence, cigarettes, uncomplicated; G89.4 Chronic pain syndrome; E10.43 Type 1 diabetes mellitus with diabetic autonomic (poly)neuropathy; K31.84 Gastroparesis; F32.9 Major depressive disorder, single episode, unspecified; G40.909 Epilepsy, unspecified, not intractable, without status epilepticus; F32.A Depression, unspecified; F43.10 Post-traumatic stress disorder, unspecified; E83.39 Other disorders of phosphorus metabolism; Z91.199 Patient's noncompliance with other medical treatment and regimen due to unspecified reason; Z88.6 Allergy status to analgesic agent; Z88.1 Allergy status to other antibiotic agents; Z88.8 Allergy status to other drugs, medicaments and biological substances; Z79.899 Other long term (current) drug therapy; Z79.4 Long term (current) use of insulin; Z90.89 Acquired absence of other organs; Z90.49 Acquired absence of other specified parts of digestive tract; Z98.890 Other specified postprocedural states
CPT/HCPCS: 36410; 36415; 70450; 70450-26; 71045; 71045-26; 80048; 80053; 81001; 82009; 82803; 82947; 83036; 83605; 83690; 83735; 84100; 84439; 84443; 84703; 85025; 93005; 93010; 96361; 96374; 99223; 99239; 99284; 99285-25; A9270-GY; J1650; J1815-GY; J2405; J2470; J3411; J3475; J3480; J3490; J7030; J7040; J7070; J7121

== ENCOUNTER 2025-05-28 21:05 | Emergency (ER) | payer MEDICAID ==
[2025-05-28 21:18] LABS: BASOPHILS ABSOLUTE AUTO 0.06 K/uL (0.00-0.20); BASOPHILS PERCENT AUTO 0.7 % (0.0-1.0); EOSINOPHILS ABSOLUTE AUTO 0.21 K/uL (0.00-0.45); EOSINOPHILS PERCENT AUTO 2.5 % (0.0-6.0); IMMATURE GRAN ABSOLUTE AUTO 0.01 K/uL (0.00-0.05); IMMATURE GRAN PERCENT AUTO 0.1 % (0.0-0.4); LYMPHOCYTES ABSOLUTE AUTO 2.79 K/uL (1.00-4.80); LYMPHOCYTES PERCENT AUTO 32.6 % (24.0-44.0); MEAN PLATELET VOLUME 10.0 fL (9.4-12.3); MONOCYTES ABSOLUTE AUTO 0.60 K/uL (0.00-0.80); MONOCYTES PERCENT AUTO 7.0 % (0.0-8.0); NEUTROPHILS ABSOLUTE AUTO 4.90 K/uL (1.80-7.70); NEUTROPHILS PERCENT AUTO 57.1 % (41.0-71.0); NRBC ABSOLUTE 0.00 K/uL (0.00-0.02); NRBC PERCENT 0.0 /100WBC (0.0-0.2); PLATELET COUNT,PLT 350 K/uL (150-400); RED BLOOD CELL COUNT 4.48 M/uL (4.10-5.30); WHITE BLOOD CELL COUNT,WBC 8.57 K/uL (3.9-11.3)
[2025-05-28 21:22] LABS: BASE EXCESS VENOUS -3.3 (-2.0-3.0); BICARBONATE,VENOUS 21.0 mEq/L (22-29); PCO2 VENOUS 36.0 mmHG (41-51); PH,VENOUS 7.38 (7.32-7.43); PO2 VENOUS 94.0 mmHG (35-45)
[2025-05-28 21:42] LABS: BLOOD UREA NITROGEN,BUN 21 mg/dL (7.0-18.0); CARBON DIOXIDE,CO2 21.1 mmol/L (21.0-32.0); CHLORIDE,CL 102 mmol/L (98-107); CREATININE 1.1 mg/dL (0.6-1.0); GLUCOSE RANDOM 245 mg/dL (74-106); POTASSIUM,K 4.1 mmol/L (3.5-5.1); SODIUM,NA 135 mmol/L (136-145)
[2025-05-28 21:45] LABS: ESTIMATED GFR 67 mL/min (>60)
[2025-05-28 22:03] LABS: GLUCOSE,URINE >=1000 mg/dL (NEGATIVE); OCCULT BLOOD,URINE NEGATIVE (NEGATIVE)
[2025-05-28] MEDS: Ondansetron 4 MG/2 ML SDV IVPUSH ONE (22:09)
[2025-05-28] MEDS: Sodium Chloride 0.9% 10 ML Syringe FLUSH PRN (22:09)
[2025-05-28] MEDS: Sodium Chloride 0.9% 2.5 ML Syringe FLUSH PRN (22:10)
[2025-05-28 22:17] LABS: APPEARANCE,URINE HAZY
[2025-05-28 22:18] LABS: EPITHELIAL CELLS,URINE MODERATE (NONE-FEW)
[2025-05-28] MEDS: droPERidol 2.5 MG/ML SDV IVPUSH ONE (23:27)
[2025-05-29 00:25] VITALS: BP 100/60; PULSE 90
== END 2025-05-29 00:25 | disposition home or self-care (01) ==
LOC: MW.ED 21:05
DX: K59.00 Constipation, unspecified (principal); I10 Essential (primary) hypertension; E78.00 Pure hypercholesterolemia, unspecified; E10.9 Type 1 diabetes mellitus without complications; E03.9 Hypothyroidism, unspecified; Z88.5 Allergy status to narcotic agent; Z88.0 Allergy status to penicillin; Z88.8 Allergy status to other drugs, medicaments and biological substances; Z79.899 Other long term (current) drug therapy; Z79.4 Long term (current) use of insulin; Z79.890 Hormone replacement therapy
CPT/HCPCS: 36415; 74177; 80048; 81001; 81025; 82803; 85025; 96361; 96374; 96375; 99285; J1790; J2270; J2405; J7030; 99283

== ENCOUNTER 2025-06-10 02:33 | Emergency (ER) | payer MEDICAID ==
[2025-06-10] MEDS ORDERED: Sodium Chloride 0.9% 10 ML Syringe FLUSH PRN (02:34)
[2025-06-10] MEDS ORDERED: Sodium Chloride 0.9% 2.5 ML Syringe FLUSH PRN (02:34)
[2025-06-10] MEDS: Ondansetron 4 MG/2 ML SDV IVPUSH ONE (02:47)
[2025-06-10] MEDS: levETIRAcetam 500 MG/5 ML SDV IVPUSH ONE (02:48)
[2025-06-10] MEDS: Ketorolac 30 MG/ML SDV IVPUSH ONE (02:48)
[2025-06-10] MEDS ORDERED: Naloxone 0.4 MG/ML SDV IVPUSH PRN (02:54)
[2025-06-10 03:09] LABS: BASOPHILS ABSOLUTE AUTO 0.06 K/uL (0.00-0.20); BASOPHILS PERCENT AUTO 0.5 % (0.0-1.0); EOSINOPHILS ABSOLUTE AUTO 0.00 K/uL (0.00-0.45); EOSINOPHILS PERCENT AUTO 0.0 % (0.0-6.0); IMMATURE GRAN ABSOLUTE AUTO 0.04 K/uL (0.00-0.05); IMMATURE GRAN PERCENT AUTO 0.3 % (0.0-0.4); LYMPHOCYTES ABSOLUTE AUTO 2.55 K/uL (1.00-4.80); LYMPHOCYTES PERCENT AUTO 21.1 % (24.0-44.0); MEAN PLATELET VOLUME 9.8 fL (9.4-12.3); MONOCYTES ABSOLUTE AUTO 0.53 K/uL (0.00-0.80); MONOCYTES PERCENT AUTO 4.4 % (0.0-8.0); NEUTROPHILS ABSOLUTE AUTO 8.90 K/uL (1.80-7.70); NEUTROPHILS PERCENT AUTO 73.7 % (41.0-71.0); NRBC ABSOLUTE 0.00 K/uL (0.00-0.02); NRBC PERCENT 0.0 /100WBC (0.0-0.2); PLATELET COUNT,PLT 525 K/uL (150-400); RED BLOOD CELL COUNT 5.39 M/uL (4.10-5.30); WHITE BLOOD CELL COUNT,WBC 12.08 K/uL (3.9-11.3)
[2025-06-10 03:11] LABS: BASE EXCESS VENOUS 3.1 (-2.0-3.0); BICARBONATE,VENOUS 26.0 mEq/L (22-29); PCO2 VENOUS 32.0 mmHG (41-51); PH,VENOUS 7.51 (7.32-7.43); PO2 VENOUS 36.0 mmHG (35-45)
[2025-06-10 03:32] LABS: A/G RATIO 1.0 (0.9-1.6); ALANINE AMINOTRANSFERASE,ALT 30 IU/L (14-63); ASPARTATE AMNIOTRANSFERASE,AST 21 IU/L (15-37); BILIRUBIN TOTAL 0.7 mg/dL (0.2-1.0); BLOOD UREA NITROGEN,BUN 13 mg/dL (7.0-18.0); CARBON DIOXIDE,CO2 26.8 mmol/L (21.0-32.0); CHLORIDE,CL 98 mmol/L (98-107); CREATININE 0.8 mg/dL (0.6-1.0); EST CRCL DRUG DOSING (CG) 70.50 mL/min; ETHANOL BLOOD MEDICAL <3 mg/dL; GLUCOSE RANDOM 187 mg/dL (74-106); POTASSIUM,K 3.8 mmol/L (3.5-5.1); PROTEIN TOTAL,TP 9.0 g/dL (6.4-8.2); SODIUM,NA 138 mmol/L (136-145)
[2025-06-10 03:39] LABS: ESTIMATED GFR 98 mL/min (>60)
[2025-06-10 04:45] LABS: APPEARANCE,URINE SLT CLOUDY; GLUCOSE,URINE 250 mg/dL (NEGATIVE); OCCULT BLOOD,URINE LARGE (NEGATIVE)
[2025-06-10 04:53] LABS: AMPHETAMINES SCREEN, URINE NEGATIVE (CUTOFF=500); BUPRENORPHINE SCREEN,URINE NEGATIVE (CUTOFF=10); METHADONE SCREEN, URINE NEGATIVE (CUTOFF=200); METHAMPHETAMINES SCREEN, URINE NEGATIVE (CUTOFF=500); OXYCODONE SCREEN,URINE NEGATIVE (CUT0FF=100); PCP SCREEN,URINE NEGATIVE (CUTOFF=25); THC SCREEN,URINE 20 NG/ML NEGATIVE (CUTOFF=50)
[2025-06-10 04:54] VITALS: BP 103/72; PULSE 56
[2025-06-10 04:58] LABS: EPITHELIAL CELLS,URINE OCCASIONAL (NONE-FEW)
[2025-06-10] MEDS: Iopamidol 755 Mg/ML 100 ML Bottle IVPUSH STA (05:25)
== END 2025-06-10 05:00 | disposition home or self-care (01) ==
LOC: MW.ED 02:33
DX: R56.9 Unspecified convulsions (principal); I10 Essential (primary) hypertension; J45.909 Unspecified asthma, uncomplicated; E03.9 Hypothyroidism, unspecified; E10.9 Type 1 diabetes mellitus without complications; E78.00 Pure hypercholesterolemia, unspecified; F11.23 Opioid dependence with withdrawal; Z90.49 Acquired absence of other specified parts of digestive tract; Z88.1 Allergy status to other antibiotic agents; Z88.8 Allergy status to other drugs, medicaments and biological substances; Z79.890 Hormone replacement therapy; Z79.899 Other long term (current) drug therapy; Z79.4 Long term (current) use of insulin
CPT/HCPCS: 36415; 70450; 74177; 80053; 80305; 80307; 81001; 82803; 82947; 83690; 84703; 85025; 96361; 96374; 96375; 99285; A9270; J1171; J1953; J2405; J7030; Q9967; 99283